=== PATIENT | female | born 1945 | race American Indian/Alaskan Native ===

== ENCOUNTER 2022-04-09 11:31 | Inpatient (IN) | payer MEDICARE ==
[2022-04-09] MEDS ORDERED: SODIUM CHLORIDE 0.9% 1000 ML IV SOLN IV ONE (12:05)
[2022-04-09] MEDS ORDERED: NALOXONE 2 MG/2 ML INJ ONE (12:05)
[2022-04-09] MEDS ORDERED: NALOXONE 2 MG/2 ML INJ IV ONE (12:09)
--- NOTE | 2022-04-09 12:12 | Emergency Department Report ---
HPI - General Chief Complaint: Altered Mental Status Time Seen by Provider: 04/09/22 11:53 - HPI HPI: Room 20 The patient is a 77-year-old female present with a chief complaint of altered mental status. The patient spouse states that he and the patient has been sick for the past week with symptoms including cough. The patient only complained of "not feeling good" but did not have any specific complaints. states he is uncertain if the patient has had a fever. Spouse states that they went to sleep last night in the usual state of health however he was awakened this morning with the patient sitting on the floor next to the bed appearing confused. He says the patient kept asking where she was. Spouse states a lot of the patient's medications were spread out over the bed. The patient has not been vaccinated against COVID. There has been no nausea vomiting or diarrhea. In the ED the patient arouses to sternal rub but only has mumbling speech ED Past Medical Hx - Past Medical History Hx Diabetes: No (Prediabetes) Hx of Cancer: Yes (Ovarian CA status post surgery and chemo) - Surgical History Additional Surgical History: Partial hysterectomy, oophorectomy - Family History Family history: no significant - Social History Smoking Status: Never Smoker Substance Use Type: None ED Review of Systems ROS: Stated complaint: AMS Other details as noted in HPI Comment: Unobtainable due to pts medical conditions Physical Exam - Physical Exam Vital Signs: Vital Signs 04/09/22 11:32 Pulse Rate 67 Blood Pressure 90/40 [Left] O2 Sat by Pulse 90 Oximetry Physical Exam: GENERAL: The patient is well-developed well-nourished female lying on stretcher with snoring respirations. Patient arouses with tactile stimuli and only to exhibit mumbling speech HEENT: Normocephalic. Atraumatic. Patient has moist mucous membranes. NECK: Supple. Trachea midline CHEST/LUNGS: Clear to auscultation. There is no respiratory distress noted. HEART/CARDIOVASCULAR: Regular. There is no tachycardia. There is no gallop rub or murmur. ABDOMEN: Abdomen is soft, nontender. Patient has normal bowel sounds. There is no abdominal distention. SKIN: There is no rash. There is no edema. There is no diaphoresis. NEURO: The patient is obtunded and only arouses to sternal rub. Patient exhibits mumbling speech after stimuli. Patient not cooperative with neurologic exam MUSCULOSKELETAL: There is no evidence of acute injury. ED Course Vital Signs 04/09/22 11:32 Pulse Rate 67 Blood Pressure 90/40 [Left] O2 Sat by Pulse 90 Oximetry - Central Line Placement Right Femoral Consent Obtained: verbal consent Time Out Performed: Yes Patient Placed on Monitor/Pulse Ox: Yes Prep: mask, gown, gloves Central Line Prep: Chlorhexidine scrub Local Anesthesia Used: Lidocaine 1% Amount of Anesthesia Used (mls): 5 Ultrasound Used for Placement: No Central Line Lumen Inserted: triple Reason for Insertion: High Alert Medication Bloods Obtained for Lab: No Central Line Position: good blood return, all ports aspirated, flus Dressing Applied: Tegaderm Patient Tolerated Procedure: well, no complications Complications: none ED Medical Decision Making - Lab Data Result diagrams: 04/09/22 12:52 04/09/22 12:52 Laboratory Tests 04/09/22 04/09/22 04/09/22 11:59 12:52 12:52 WBC 8.2 RBC 4.55 Hgb 13.0 Hct 39.8 MCV 87 MCH 29 MCHC 33 RDW 15.3 H Plt Count 172 Lymph % (Auto) 8.4 L [place] % (Auto) 6.5 Eos % (Auto) 0.0 Baso % (Auto) 0.5 Lymph # (Auto) 0.7 L [place] # (Auto) 0.5 Eos # (Auto) 0.0 Baso # (Auto) 0.0 Seg Neutrophils % 84.6 H Seg Neutrophils # 7.0 PT INR VBG pH Sodium 145 Potassium 4.0 Chloride 112.7 H Carbon Dioxide 18 L Anion Gap 18 BUN 16 Creatinine 2.0 H Estimated GFR 24 BUN/Creatinine Ratio 8 Glucose 204 H POC Glucose 203 H Lactic Acid Calcium 8.5 Magnesium 2.30 Total Bilirubin 1.30 H AST 47 H ALT 40 Alkaline Phosphatase 71 Ammonia Troponin T < 0.010 NT-Pro-B Natriuret Pep Total Protein 6.7 Albumin 3.9 Albumin/Globulin Ratio 1.4 TSH Free T4 Urine Color Urine Turbidity Urine pH Ur Specific [place] Urine Protein Urine Glucose (UA) Urine Ketones Urine Blood Urine Nitrite Urine Bilirubin Urine Urobilinogen Ur Leukocyte Esterase Urine WBC (Auto) Urine RBC (Auto) U Epithel Cells (Auto) Urine Mucus Influenza A (RT-PCR) Influenza B (RT-PCR) 04/09/22 04/09/22 04/09/22 12:52 12:52 12:52 WBC RBC Hgb Hct MCV MCH MCHC RDW Plt Count Lymph % (Auto) [place] % (Auto) Eos % (Auto) Baso % (Auto) Lymph # (Auto) [place] # (Auto) Eos # (Auto) Baso # (Auto) Seg Neutrophils % Seg Neutrophils # PT INR VBG pH Sodium Potassium Chloride Carbon Dioxide Anion Gap BUN Creatinine Estimated GFR BUN/Creatinine Ratio Glucose POC Glucose Lactic Acid 1.50 Calcium Magnesium Total Bilirubin AST ALT Alkaline Phosphatase Ammonia 20.0 L Troponin T NT-Pro-B Natriuret Pep Total Protein Albumin Albumin/Globulin Ratio TSH 1.560 Free T4 1.33 Urine Color Urine Turbidity Urine pH Ur Specific [place] Urine Protein Urine Glucose (UA) Urine Ketones Urine Blood Urine Nitrite Urine Bilirubin Urine Urobilinogen Ur Leukocyte Esterase Urine WBC (Auto) Urine RBC (Auto) U Epithel Cells (Auto) Urine Mucus Influenza A (RT-PCR) Influenza B (RT-PCR) 04/09/22 04/09/22 04/09/22 12:52 12:52 13:24 WBC RBC Hgb Hct MCV MCH MCHC RDW Plt Count Lymph % (Auto) [place] % (Auto) Eos % (Auto) Baso % (Auto) Lymph # (Auto) [place] # (Auto) Eos # (Auto) Baso # (Auto) Seg Neutrophils % Seg Neutrophils # PT 14.5 INR 1.02 VBG pH 7.303 L Sodium Potassium Chloride Carbon Dioxide Anion Gap BUN Creatinine Estimated GFR BUN/Creatinine Ratio Glucose POC Glucose Lactic Acid Calcium Magnesium Total Bilirubin AST ALT Alkaline Phosphatase Ammonia Troponin T NT-Pro-B Natriuret Pep Total Protein Albumin Albumin/Globulin Ratio TSH Free T4 Urine Color Yellow Urine Turbidity Clear Urine pH 5.0 Ur Specific [place] 1.011 Urine Protein 30 mg/dl Urine Glucose (UA) Neg Urine Ketones 20 Urine Blood Neg Urine Nitrite Neg Urine Bilirubin Neg Urine Urobilinogen 4.0 Ur Leukocyte Esterase Neg Urine WBC (Auto) 2.0 Urine RBC (Auto) < 1.0 U Epithel Cells (Auto) < 1.0 Urine Mucus Few Influenza A (RT-PCR) Influenza B (RT-PCR) 04/09/22 04/09/22 13:45 14:15 WBC RBC Hgb Hct MCV MCH MCHC RDW Plt Count Lymph % (Auto) [place] % (Auto) Eos % (Auto) Baso % (Auto) Lymph # (Auto) [place] # (Auto) Eos # (Auto) Baso # (Auto) Seg Neutrophils % Seg Neutrophils # PT INR VBG pH Sodium Potassium Chloride Carbon Dioxide Anion Gap BUN Creatinine Estimated GFR BUN/Creatinine Ratio Glucose POC Glucose Lactic Acid Calcium Magnesium Total Bilirubin AST ALT Alkaline Phosphatase Ammonia Troponin T NT-Pro-B Natriuret Pep 101.1 Total Protein Albumin Albumin/Globulin Ratio TSH Free T4 Urine Color Urine Turbidity Urine pH Ur Specific [place] Urine Protein Urine Glucose (UA) Urine Ketones Urine Blood Urine Nitrite Urine Bilirubin Urine Urobilinogen Ur Leukocyte Esterase Urine WBC (Auto) Urine RBC (Auto) U Epithel Cells (Auto) Urine Mucus Influenza A (RT-PCR) Negative Influenza B (RT-PCR) Negative - Radiology Data Radiology results: report reviewed (Chest x-ray), image reviewed (Chest x-ray) interpreted by me: Chest [id number] patchy infiltrates. No pneumothorax [facility] [address] [place] [address] XRay Report Signed Patient: MICHA BELL MR#: [id number] [birth year] : 1945 Acct:[id number] Age/Sex: 77 / F ADM Date: 04/09/22 Loc: ED Attending Dr: Ordering Physician: ROX FRIAS MD Date of Service: 04/09/22 Procedure(s): XR chest 1V ap Accession Number(s): [id number] cc: ROX FRIAS MD Fluoro Time In Minutes: CHEST 1 VIEW 04/09/2022 12:18 PM INDICATION / CLINICAL INFORMATION: Cough, hypoxia. COMPARISON: None available. FINDINGS: SUPPORT DEVICES: Left subclavian central venous catheter appears well-positioned. HEART / MEDIASTINUM: Mild cardiomegaly. LUNGS / PLEURA: Mild interstitial edema. No pneumothorax. ADDITIONAL FINDINGS: No significant additional findings. IMPRESSION: 1. Findings likely indicating mild CHF as described. Signer Name: Viktor Ramirez MD Signed: 04/09/2022 12:40 PM Workstation Name: [id number] Transcribed By: RAPHAEL Dictated By: Viktor Ramirez MD Electronically Authenticated By: Viktor Ramirez MD Signed Date/Time: 04/09/22 1240 DD/ 1239 TD/TT: [facility] [address] [place] [address] Cat Scan Report Signed Patient: MICHA BELL MR#: [id number] [birth year] : 1945 Acct:[id number] Age/Sex: 77 / F ADM Date: 04/09/22 Loc: ED Attending Dr: Ordering Physician: ROX FRIAS MD Date of Service: 04/09/22 Procedure(s): CT head/brain wo con Accession Number(s): [id number] cc: ROX FRIAS MD CT BRAIN: 03/30/2022 INDICATION / CLINICAL INFORMATION: Altered mental status. COMPARISON: None available. FINDINGS: BRAIN/INTRACRANIAL STRUCTURES: Unenhanced CT images of the brain demonstrate no evidence of acute abnormality. Ventricles and sulci are slightly prominent in size, consistent with normal age-related atrophic change. There is no evidence of ischemic injury, hemorrhage, or mass. There are no abnormal extra-axial fluid collections. EXTRACRANIAL STRUCTURES: Unremarkable. IMPRESSION: No acute abnormality. All CT scans at this location are performed using dose reduction to ALARA by means of automated exposure control. Signer Name: Hood Culver MD Signed: 04/09/2022 12:44 PM Workstation Name: [id number] Transcribed By: CARLOS Dictated By: Hood Culver MD Electronically Authenticated By: Hood Culver MD Signed Date/Time: 04/09/22 1244 DD/ 1243 TD/TT: - Differential Diagnosis AMS, pneumonia, ICH, brain mets, metabolic encephalopathy Critical care attestation.: If time is entered above; I have spent that time in minutes in the direct care of this critically ill patient, excluding procedure time. ED Disposition Clinical Impression: Suspected 2019 novel coronavirus infection, Altered mental status, Hypoxia, Cough, Acute kidney injury, Sepsis Disposition: ADMITTED INPATIENT Is pt being admited?: Yes Does the pt Need Aspirin: No Condition: Serious Time of Disposition: 15:30 (Care transferred to hospitalist)
--- NOTE | 2022-04-09 12:44 | XRay Report ---
CHEST 1 VIEW 04/09/2022 12:18 PM INDICATION / CLINICAL INFORMATION: Cough, hypoxia. COMPARISON: None available. FINDINGS: SUPPORT DEVICES: Left subclavian central venous catheter appears well-positioned. HEART / MEDIASTINUM: Mild cardiomegaly. LUNGS / PLEURA: Mild interstitial edema. No pneumothorax. ADDITIONAL FINDINGS: No significant additional findings. IMPRESSION: 1. Findings likely indicating mild CHF as described. Signer Name: Viktor Ramirez MD Signed: 04/09/2022 12:40 PM Workstation Name: [id number]
--- NOTE | 2022-04-09 12:50 | Cat Scan Report ---
CT BRAIN: 03/30/2022 INDICATION / CLINICAL INFORMATION: Altered mental status. COMPARISON: None available. FINDINGS: BRAIN/INTRACRANIAL STRUCTURES: Unenhanced CT images of the brain demonstrate no evidence of acute abn ormality. Ventricles and sulci are slightly prominent in size, consistent with normal age-related atrophic nascimento ge. There is no evidence of ischemic injury, hemorrhage, or mass. There are no abnormal extra-axial fluid collections. EXTRACRANIAL STRUCTURES: Unremarkable. IMPRESSION: No acute abnormality. All CT scans at this location are performed using dose reduction to ALARA by means of automated expos ure control. Signer Name: Hood Culver MD Signed: 04/09/2022 12:44 PM Workstation Name: [id number]
[2022-04-09] MEDS: DOPamine 800 MG/D5W 250ML 800 MG/250 ML BAG IV ONE ×2 (13:00→19:52)
[2022-04-09] MEDS ORDERED: DOPamine 800 MG/D5W 250ML 800 MG/250 ML BAG IV ONE (13:13)
[2022-04-09 13:15] LABS: Basophils % (Auto) 0.5 % (0.0-1.8); Hematocrit 39.8 % (30.3-42.9); Lymphocytes # (Auto) 0.7 K/mm3 (1.2-5.4); Lymphocytes % (Auto) 8.4 % (13.4-35.0); Mean Corpuscular HGB Conc 33 % (30-34); Mean Corpuscular Volume 87 fl (79-97); Monocytes # (Auto) 0.5 K/mm3 (0.0-0.8); Monocytes % (Auto) 6.5 % (0.0-7.3); Platelet Count 172 K/mm3 (140-440); Red Blood Count 4.55 M/mm3 (3.65-5.03); Red Cell Distribution Width 15.3 % (13.2-15.2)
[2022-04-09 13:24] LABS: INR 1.02 (0.87-1.13)
[2022-04-09 13:40] LABS: Alanine Aminotransferase 40 units/L (7-56); Albumin 3.9 g/dL (3.9-5); BUN/Creatinine Ratio 8; Blood Urea Nitrogen 16 mg/dL (7-17); Calcium 8.5 mg/dL (8.4-10.2); Hemolysis Index 2
[2022-04-09 13:50] LABS: Free T4 (Free Thyroxine) 1.33 ng/dL (0.76-1.46)
[2022-04-09 14:23] LABS: Bilirubin,Urine NEG (Negative); Blood,Urine NEG (Negative); Color,Urine Yellow (Yellow); Mucus,Urine FEW /HPF; RBC,Urine < 1.0 /HPF (0.0-6.0)
[2022-04-09] MEDS ORDERED: NORepinephrine/NS 8 MG-250 ML 8 MG/250 ML INFUS..BTL IV ONE (15:12)
[2022-04-09] MEDS ORDERED: cefTRIAXone/NS 1 GM/50 ML 1 GM/50 ML BAG IV ONE (15:21)
[2022-04-09] MEDS ORDERED: AZITHROMYCIN/NS 500 MG/250 ML 500 MG/250 ML BAG IV ONE (15:21)
[2022-04-09] MEDS: NORepinephrine/NS 8 MG-250 ML 8 MG/250 ML INFUS..BTL IV SCH ×2 (15:29→21:53)
[2022-04-09] MEDS: VASOPRESSIN 20 UNIT in SODIUM CHLORIDE 0.9% 100 ML IV SCH (17:37)
[2022-04-09] MEDS ORDERED: MORPHINE 2 MG/1 ML INJ IV PRN (18:11)
[2022-04-09] MEDS ORDERED: ONDANSETRON 4 MG/2 ML INJ IV PRN (18:11)
[2022-04-09] MEDS ORDERED: SODIUM CHLORIDE 0.9% 1000 ML 1,000 ML IV SCH (18:15)
--- NOTE | 2022-04-09 18:19 | History and Physical Report ---
History of Present Illness Date of examination: 04/09/22 Date of admission: 04/09/2022 Chief complaint: Altered sensorium since a.m. History of present illness: 77-year-old with history of diabetes and ovarian cancer in remission brought in by for altered sensorium. As per the patient has been feeling weak and short of breath for last 1 week. is also sick for 1 week but no shortness of breath. No fevers. No nausea or vomiting. In the morning when the patient woke up patient was severely used and not able to make any sense and still was talking. Patient is not vaccinated against COVID. Both and do not believe in COVID vaccination. No fevers nausea vomiting or diarrhea. No loss of taste or smell. Shortness of breath present. In the emergency room patient was very hypoxic on arrival. Patient had a reported 100% nonrebreather. Patient's initial oxygenation was 88 to 90%. Patient was tachypneic and blood pressure of 90/40 and respiratory rate with 44 and heart rate was 67. Patient was put on 100% nonrebreather. Patient responding to sternal rub. In the ED after couple of hours patient was intubated for protection of airway and patient getting more hypoxic. - Past Medical History Hx Diabetes: No (Prediabetes) Cancer: Yes (Ovarian CA status post surgery and chemo) - Surgical History Additional Surgical History: Partial hysterectomy, oophorectomy - Family History Family history: no significant - Social History Smoking Status: Never Smoker Substance Use Type: None Review of Systems ROS: Constitutional generalized malaise for 1 week HEENT no sore throat no post nasal drip no diplopia Neck no neck stiffness no lymph gland enlargement Chest and lungs short of breath for 1 week more for 1 day. 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 Skin no rash no itching Psychiatric no depression no homicidal or suicidal tendencies Hematologic no lymphedema or bruising Endocrine no polydipsia no polyuria no cold intolerance no heat intolerance Medications and Allergies Allergies Allergy/AdvReac Type Severity Reaction Status Date / Time No Known Allergies Allergy Verified 04/09/22 13:44 Active Meds: Active Medications Dopamine HCl/Dextrose (Dopamine 800 Mg/D5w 250ml) 800 mg in 250 mls @ 3.657 mls/hr IV TITR ONE; Protocol Stop: 04/12/22 09:33 Last Titration: 04/09/22 15:15 Dose: 20 mcg/kg/min, 36.571 mls/hr NORepinephrine/NS 8 MG-250 ML (Norepinephrine/Ns 8 Mg-250 Ml (Double Conc)) 8 mg in 250 mls @ 3.75 mls/hr IV TITRATE JO ANN; Protocol Last Titration: 04/09/22 16:00 Dose: 6 mcg/min, 11.25 mls/hr Vasopressin 20 unit/ Sodium (Chloride) 101 mls @ 9.09 mls/hr IV TITR JO ANN; Protocol Last Admin: 04/09/22 17:37 Dose: 0.03 units/min, 9.09 mls/hr Exam - Physical Exam Narrative exam: Patient intubated while in the emergency room - Constitutional Vitals: Temp Pulse Resp BP Pulse Ox 104 H 16 79/47 100 04/09/22 16:30 04/09/22 16:30 04/09/22 16:30 04/09/22 16:30 General appearance: Present: no acute distress, severe distress, well-nourished - EENT Eyes: Present: PERRL ENT: hearing intact, clear oral mucosa - Neck Neck: Present: supple, normal ROM - Respiratory Respiratory effort: normal Respiratory: bilateral: rales, rhonchi, wheezing - Cardiovascular Heart rate: 67 Rhythm: regular Heart Sounds: Present: S1 & S2. Absent: rub, click - Extremities Extremities: no ischemia, pulses intact, pulses symmetrical, No edema Peripheral Pulses: within normal limits - Abdominal General gastrointestinal: Present: soft, non-tender, non-distended, normal bowel sounds Female genitourinary: Present: normal - Integumentary Integumentary: Present: clear, warm, dry - Musculoskeletal Musculoskeletal: generalized weakness - Psychiatric Psychiatric: other (Altered sensorium) - Neurologic Neurologic: CNII-XII intact, moves all extremities, other (Altered sensorium) - Allied Health Allied health notes reviewed: nursing, RT, social work, case management HEART Score - HEART Score History: Slightly suspicious Age: > 65 Risk factors: 1-2 risk factors Troponin: Troponin T < 0.010 ng/mL (0.00-0.029) 04/09/22 12:52 Troponin: < normal limit - Critical Actions Critical Actions: 4-6 pts:12-16.6% risk of adverse cardiac event. Should be admitted Results - Labs CBC & Chem 7: 04/10/22 04:24 04/10/22 04:24 Labs: Laboratory Last Values WBC 8.2 K/mm3 (4.5-11.0) 04/09/22 12:52 RBC 4.55 M/mm3 (3.65-5.03) 04/09/22 12:52 Hgb 13.0 gm/dl (10.1-14.3) 04/09/22 12:52 Hct 39.8 % (30.3-42.9) 04/09/22 12:52 MCV 87 fl (79-97) 04/09/22 12:52 MCH 29 pg (28-32) 04/09/22 12:52 MCHC 33 % (30-34) 04/09/22 12:52 RDW 15.3 % (13.2-15.2) H 04/09/22 12:52 Plt Count 172 K/mm3 (140-440) 04/09/22 12:52 Lymph % (Auto) 8.4 % (13.4-35.0) L 04/09/22 12:52 [place] % (Auto) 6.5 % (0.0-7.3) 04/09/22 12:52 Eos % (Auto) 0.0 % (0.0-4.3) 04/09/22 12:52 Baso % (Auto) 0.5 % (0.0-1.8) 04/09/22 12:52 Lymph # (Auto) 0.7 K/mm3 (1.2-5.4) L 04/09/22 12:52 [place] # (Auto) 0.5 K/mm3 (0.0-0.8) 04/09/22 12:52 Eos # (Auto) 0.0 K/mm3 (0.0-0.4) 04/09/22 12:52 Baso # (Auto) 0.0 K/mm3 (0.0-0.1) 04/09/22 12:52 Seg Neutrophils % 84.6 % (40.0-70.0) H 04/09/22 12:52 Seg Neutrophils # 7.0 K/mm3 (1.8-7.7) 04/09/22 12:52 PT 14.5 Sec. (12.2-14.9) 04/09/22 12:52 INR 1.02 (0.87-1.13) 04/09/22 12:52 VBG pH 7.303 (7.320-7.420) L 04/09/22 12:52 Sodium 145 mmol/L (137-145) 04/09/22 12:52 Potassium 4.0 mmol/L (3.6-5.0) 04/09/22 12:52 Chloride 112.7 mmol/L (98-107) H 04/09/22 12:52 Carbon Dioxide 18 mmol/L (22-30) L 04/09/22 12:52 Anion Gap 18 mmol/L 04/09/22 12:52 BUN 16 mg/dL (7-17) 04/09/22 12:52 Creatinine 2.0 mg/dL (0.6-1.2) H 04/09/22 12:52 Estimated GFR 24 ml/min 04/09/22 12:52 BUN/Creatinine Ratio 8 % 04/09/22 12:52 Glucose 204 mg/dL (65-100) H 04/09/22 12:52 POC Glucose 203 mg/dL (70-105) H 04/09/22 11:59 Lactic Acid 2.70 mmol/L (0.7-2.0) H* 04/09/22 15:49 Calcium 8.5 mg/dL (8.4-10.2) 04/09/22 12:52 Magnesium 2.30 mg/dL (1.7-2.3) 04/09/22 12:52 Total Bilirubin 1.30 mg/dL (0.1-1.2) H 04/09/22 12:52 AST 47 units/L (5-40) H 04/09/22 12:52 ALT 40 units/L (7-56) 04/09/22 12:52 Alkaline Phosphatase 71 units/L (35-129) 04/09/22 12:52 Ammonia 20.0 umol/L (25-60) L 04/09/22 12:52 Troponin T < 0.010 ng/mL (0.00-0.029) 04/09/22 12:52 NT-Pro-B Natriuret Pep 101.1 pg/mL (0-900) 04/09/22 13:45 Total Protein 6.7 g/dL (6.3-8.2) 04/09/22 12:52 Albumin 3.9 g/dL (3.9-5) 04/09/22 12:52 Albumin/Globulin Ratio 1.4 % 04/09/22 12:52 TSH 1.560 mlU/mL (0.270-4.200) 04/09/22 12:52 Free T4 1.33 ng/dL (0.76-1.46) 04/09/22 12:52 Urine Color Yellow (Yellow) 04/09/22 13:24 Urine Turbidity Clear (Clear) 04/09/22 13:24 Urine pH 5.0 (5.0-7.0) 04/09/22 13:24 Ur Specific [place] 1.011 (1.003-1.030) 04/09/22 13:24 Urine Protein 30 mg/dl mg/dL (Negative) 04/09/22 13:24 Urine Glucose (UA) Neg mg/dL (Negative) 04/09/22 13:24 Urine Ketones 20 mg/dL (Negative) 04/09/22 13:24 Urine Blood Neg (Negative) 04/09/22 13:24 Urine Nitrite Neg (Negative) 04/09/22 13:24 Urine Bilirubin Neg (Negative) 04/09/22 13:24 Urine Urobilinogen 4.0 mg/dL (<2.0) 04/09/22 13:24 Ur Leukocyte Esterase Neg (Negative) 04/09/22 13:24 Urine WBC (Auto) 2.0 /HPF (0.0-6.0) 04/09/22 13:24 Urine RBC (Auto) < 1.0 /HPF (0.0-6.0) 04/09/22 13:24 U Epithel Cells (Auto) < 1.0 /HPF (0-13.0) 04/09/22 13:24 Urine Mucus Few /HPF 04/09/22 13:24 Coronavirus (PCR) Positive (Negative) A 04/09/22 13:02 Influenza A (RT-PCR) Negative (Negative) 04/09/22 14:15 Influenza B (RT-PCR) Negative (Negative) 04/09/22 14:15 Short CBC 04/09/22 Range/Units 12:52 WBC 8.2 (4.5-11.0) K/mm3 Hgb 13.0 (10.1-14.3) gm/dl Hct 39.8 (30.3-42.9) % Plt Count 172 (140-440) K/mm3 [facility] 04/09/22 04/09/22 12:52 22:58 Sodium 145 140 Potassium 4.0 3.8 Chloride 112.7 H 108.8 H Carbon Dioxide 18 L 10 L D BUN 16 20 H Creatinine 2.0 H 2.6 H Glucose 204 H 465 H Calcium 8.5 7.4 L Cardiac Enzymes 04/09/22 Range/Units 12:52 Troponin T < 0.010 (0.00-0.029) ng/mL Liver Function 04/09/22 Range/Units 12:52 Total Bilirubin 1.30 H (0.1-1.2) mg/dL AST 47 H (5-40) units/L ALT 40 (7-56) units/L Alkaline Phosphatase 71 (35-129) units/L Albumin 3.9 (3.9-5) g/dL Urine 04/09/22 Range/Units 13:24 Urine Color Yellow (Yellow) Urine pH 5.0 (5.0-7.0) Ur Specific [place] 1.011 (1.003-1.030) Urine Protein 30 mg/dl (Negative) mg/dL Urine Glucose (UA) Neg (Negative) mg/dL Short CBC 04/09/22 04/10/22 Range/Units 12:52 04:24 WBC 8.2 16.4 H (4.5-11.0) K/mm3 Hgb 13.0 11.6 (10.1-14.3) gm/dl Hct 39.8 36.5 (30.3-42.9) % Plt Count 172 160 (140-440) K/mm3 [facility] 04/09/22 04/09/22 04/10/22 12:52 22:58 04:24 Sodium 145 140 145 Potassium 4.0 3.8 2.9 L* D Chloride 112.7 H 108.8 H 116.1 H Carbon Dioxide 18 L 10 L D 11 L BUN 16 20 H 19 H Creatinine 2.0 H 2.6 H 2.5 H Glucose 204 H 465 H 376 H Calcium 8.5 7.4 L 6.5 L Cardiac Enzymes 04/09/22 Range/Units 12:52 Troponin T < 0.010 (0.00-0.029) ng/mL Liver Function 04/09/22 04/10/22 Range/Units 12:52 04:24 Total Bilirubin 1.30 H 0.80 (0.1-1.2) mg/dL AST 47 H 107 H (5-40) units/L ALT 40 64 H (7-56) units/L Alkaline Phosphatase 71 54 (35-129) units/L Albumin 3.9 2.8 L (3.9-5) g/dL Urine 04/09/22 Range/Units 13:24 Urine Color Yellow (Yellow) Urine pH 5.0 (5.0-7.0) Ur Specific [place] 1.011 (1.003-1.030) Urine Protein 30 mg/dl (Negative) mg/dL Urine Glucose (UA) Neg (Negative) mg/dL Microbiology: Microbiology 04/09/22 12:52 Peripheral/Venous Blood Culture - Preliminary Culture in Progress 04/09/22 12:52 Peripheral/Venous Blood Culture - Preliminary Culture in Progress - Imaging and Cardiology EKG: report reviewed (No acute ST-T wave changes) Chest x-ray: report reviewed Imaging and Cardiology: . chest x-ray Findings likely indicating mild CHF as described Postintubation chest x-ray ET tube in place Same findings Assessment and Plan Assessment and plan: Critical care statement The high probability OF a clinically significant sudden or life-threatening deterioration of the cardiorespiratory system and endocrine system required my full and direct attention, intervention and postoperative management. The aggregate critical care time was 40 minutes. The time is in addition to time spent performing reported procedures but includes the followin: Data review and interpretation 2: Patient assessment and monitoring of vital signs 3: Documentation 4:: Medication orders and management Advance Directives: Yes (Full code) VTE prophylaxis?: Chemical Plan of care discussed with patient/family: Yes - Patient Problems (1) Septic shock Current Visit: Yes Status: Acute Plan to address problem: Sepsis probably secondary to COVID infection IV cefepime and vancomycin and stated Patient also on IV Zithromax Patient is in shock hypotensive IV pressors initiated in the follow-up Levophed and dopamine Later vasopressin was added because of persistent low blood pressures (2) Acute respiratory failure with hypoxia Current Visit: Yes Status: Acute Plan to address problem: Patient was initially on high flow oxygen. Patient is getting more hypoxic and into respiratory distress Patient intubated in the emergency room by Dr. Rodriguez for protection of airway and for adequate oxygenation. (3) Acute encephalopathy Current Visit: Yes Status: Acute Plan to address problem: Acute metabolic encephalopathy secondary to hypoxia and sepsis Continue vent support and IV antibiotics and IV pressors (4) Bilateral pneumonia Current Visit: Yes Status: Acute Plan to address problem: Patient initiated on IV antibiotics Patient is COVID-positive IV Decadron 8 mg every 24 ID consult (5) Acute kidney injury Current Visit: Yes Status: Acute (6) Hypotension Current Visit: Yes Status: Acute Plan to address problem: Hypotension secondary to sepsis IV pressors in the form of Levophed, dopamine and vasopressin 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 (10) Advance care planning Current Visit: Yes Status: Acute Plan to address problem: Discussed with about the disease care plan diagnosis. Prognosis discussed. Patient is full code. acknowledges understanding and agreement with plan. +30 minutes. Patient is full code.
[2022-04-09] MEDS: AZITHROMYCIN/NS 500 MG/250 ML 500 MG/250 ML BAG IV SCH (18:40)
[2022-04-09] MEDS ORDERED: cefTRIAXone/NS 2 GM/100 ML 2 GM/100 ML BAG IV SCH (19:00)
--- NOTE | 2022-04-09 20:40 | Event Note ---
Date: 04/09/22 [facility] intubation note I was asked by hospitalist Dr. Yen to intubate the patient to protect the patient's airway Intubation note Consent was [obtained verbally/unobtainable due patient condition] Preoxygenation with 100% oxygen Patient was sedated with etomidate 20 mg IV Patient was paralyzed with succinylcholine 100 mg IV A size 7.0 mm ET tube was inserted orally on first attempt There was symmetric chest rise and bilateral breath sounds post intubation A CO2 indicator was used for confirmation and resulted in positive CO2 return Pulse oximetry post intubation was 100% ET tube was taped at 21 cm at the lips Post intubation chest x-ray confirmed good tube location The patient tolerated the procedure well There were no complications
[2022-04-09] MEDS ORDERED: ETOMIDATE 20 MG/10 ML INJ IV ONE ×2 (20:46→21:40)
[2022-04-09] MEDS ORDERED: SUCCINYLCHOLINE CHLORIDE 200 MG/10 ML INJ MDV IV ONE (20:46)
--- NOTE | 2022-04-09 21:09 | XRay Report ---
CHEST 1 VIEW 04/09/2022 8:39 PM INDICATION / CLINICAL INFORMATION: Status post intubation. COMPARISON: 04/09/2022 FINDINGS: SUPPORT DEVICES: Endotracheal tube terminates approximately 3.5 cm from the sharon. There is a left c hest wall medical port terminating in the cavoatrial junction. HEART / MEDIASTINUM: Stable. LUNGS / PLEURA: No significant change in interstitial edema. No pneumothorax. ADDITIONAL FINDINGS: No significant additional findings. IMPRESSION: 1. Status post intubation with appropriate positioning of endotracheal tube, otherwise no significant change. Signer Name: Leo Crouch DO Signed: 04/09/2022 9:05 PM Workstation Name: [id number]
[2022-04-09] MEDS ORDERED: SODIUM CHLORIDE 0.9% 1000 ML 1,000 ML IV ONE ×3 (21:36→22:50)
[2022-04-09] MEDS ORDERED: SUCCINYLCHOLINE CHLORIDE 200 MG/10 ML INJ MDV ONE (21:40)
[2022-04-09 22:24] LABS: ABG PCO2 24.6 mm Hg; ABG PO2 188.8 mm Hg (80.0-90.0)
[2022-04-09 22:25] LABS: ABG Base Excess -20.7 mmol/L (-2.0-3.0); ABG HCO3 7.4 mmol/L (20.0-26.0); ABG Methemoglobin 0.1 % (0.0-1.5); ABG Oxygen Saturation 99.1 % (95.0-99.0)
[2022-04-09 22:26] LABS: ABG PH 7.097 pH Units (7.350-7.450)
[2022-04-09] MEDS ORDERED: SODIUM BICARB 8.4% 50 MEQ/50 ML SYRINGE IV ONE ×2 (22:51→22:54)
[2022-04-09] MEDS ORDERED: CEFEPIME/NS 2 GM/100 ML 2 GM/100 ML BAG IV SCH (23:00)
[2022-04-09 23:28] LABS: Amphetamine Screen,Urine PRESUMPTIVE NEGATIVE; Benzodiazepines Screen,Urine PRESUMPTIVE NEGATIVE; Cannabinoid Screen,Urine PRESUMPTIVE NEGATIVE; Cocaine Screen,Urine PRESUMPTIVE NEGATIVE; Methadone Screen,Urine PRESUMPTIVE NEGATIVE; Opiate Screen,Urine PRESUMPTIVE NEGATIVE
[2022-04-09 23:39] LABS: Calcium 7.4 mg/dL (8.4-10.2)
[2022-04-09] MEDS ORDERED: CEFEPIME/NS 1 GM/100 ML 1 GM/100 ML BAG IV SCH (23:45)
[2022-04-09] MEDS ORDERED: VANCOMYCIN PHARMACY TO DOSE IV SCH (23:45)
[2022-04-10] MEDS ORDERED: VANCOMYCIN 1,500 MG in SODIUM CHLORIDE 0.9% 250ML 250 ML IV NR (00:15)
[2022-04-10] MEDS ORDERED: SODIUM CHLORIDE 0.9% 1000 ML 1,000 ML IV ONE ×2 (00:36)
[2022-04-10] MEDS ORDERED: DEXTROSE 50% IN WATER (25GM) 50 ML SYRINGE IV PRN (00:40)
[2022-04-10] MEDS ORDERED: SODIUM CHLORIDE 0.9% 1000 ML 1,000 ML IV SCH (00:45)
[2022-04-10] MEDS ORDERED: VANCOMYCIN 1,500 MG in SODIUM CHLORIDE 0.9% 500 ML 500 ML IV NR (01:00)
[2022-04-10] MEDS ORDERED: D5W/0.45% NACL/KCL 20 MEQ 20 MEQ/1,000 ML BAG IV SCH (01:00)
[2022-04-10] MEDS: FAMOTIDINE 20 MG/2 ML INJ IV SCH ×3 (01:08→22:29)
[2022-04-10] MEDS: CEFEPIME/NS 2 GM/100 ML 2 GM/100 ML BAG IV SCH (01:08)
[2022-04-10] MEDS: INSULIN REGULAR, HUMAN 100 UNITS in SODIUM CHLORIDE 0.9% 99 ML IV SCH ×2 (02:36→09:10)
[2022-04-10] MEDS: VASOPRESSIN 20 UNIT in SODIUM CHLORIDE 0.9% 100 ML IV SCH (02:37)
[2022-04-10] MEDS: NORepinephrine/NS 8 MG-250 ML 8 MG/250 ML INFUS..BTL IV SCH ×5 (02:39→22:02)
[2022-04-10] MEDS: DOPamine 800 MG/D5W 250ML 800 MG/250 ML BAG IV SCH ×2 (03:17→13:12)
[2022-04-10 04:38] LABS: Hematocrit 36.5 % (30.3-42.9); Hemoglobin 11.6 gm/dl (10.1-14.3); Mean Corpuscular HGB Conc 32 % (30-34); Mean Corpuscular Volume 90 fl (79-97); Platelet Count 160 K/mm3 (140-440); Red Blood Count 4.06 M/mm3 (3.65-5.03); Red Cell Distribution Width 16.2 % (13.2-15.2)
[2022-04-10 04:45] LABS: ABG HCO3 8.7 mmol/L (20.0-26.0); ABG PCO2 28.9 mm Hg; ABG PO2 112.3 mm Hg (80.0-90.0)
[2022-04-10 04:46] LABS: ABG Base Excess -19.7 mmol/L (-2.0-3.0); ABG Methemoglobin 0.3 % (0.0-1.5); ABG Oxygen Saturation 97.6 % (95.0-99.0)
[2022-04-10 04:47] LABS: ABG PH 7.095 pH Units (7.350-7.450)
[2022-04-10] MEDS ORDERED: SODIUM BICARB 8.4% 50 MEQ/50 ML SYRINGE IV STA (04:56)
[2022-04-10] MEDS ORDERED: SODIUM BICARBONATE 150 MEQ in SODIUM CHLORIDE 0.9% 1000 ML 1,000 ML IV SCH (05:00)
[2022-04-10 05:07] LABS: Albumin 2.8 g/dL (3.9-5); Calcium 6.5 mg/dL (8.4-10.2)
[2022-04-10 05:47] LABS: Total Cells Counted 100
[2022-04-10 05:48] LABS: Basophils % (Manual) 0 % (0.0-1.8); Eosinophils % (Manual) 0 % (0.0-4.3)
[2022-04-10 05:49] LABS: Giant Platelets Rare; Platelet Estimate Consistent w Auto; RBC Morphology Normal
[2022-04-10] MEDS ORDERED: SODIUM BICARBONATE 150 MEQ in WATER FOR INJECTION (PF) 1,000 ML IV SCH (06:00)
[2022-04-10] MEDS ORDERED: POTASSIUM CHLORIDE 10 MEQ 10 MEQ/100 ML BAG IV SCH (06:00)
[2022-04-10] MEDS ORDERED: INSULIN LISPRO 100 UNIT/ML SUB-Q SCH (07:00)
[2022-04-10] MEDS: POTASSIUM CHLORIDE 20 MEQ 20 MEQ/100 ML BAG IV SCH ×2 (07:19→08:29)
[2022-04-10] MEDS ORDERED: MAGNESIUM SULFATE 2 GM/50 ML BAG IV SCH (08:00)
[2022-04-10] MEDS ORDERED: LORazepam 2 MG/ML VIAL IV ONE (09:00)
[2022-04-10] MEDS ORDERED: POTASSIUM PHOSPHATE 30 MMOL in SODIUM CHLORIDE 0.9% 500 ML 500 ML IV SCH (09:15)
[2022-04-10] MEDS ORDERED: POTASSIUM CHLORIDE 20 MEQ 20 MEQ/100 ML BAG IV SCH (10:00)
[2022-04-10] MEDS: ENOXAPARIN 30 MG/0.3 ML INJ SUB-Q SCH (10:20)
[2022-04-10] MEDS: SODIUM BICARBONATE 150 MEQ in DEXTROSE 5% IN WATER 1,000 ML IV SCH (10:56)
--- NOTE | 2022-04-10 11:25 | Consultation ---
History of Present Illness - Reason for Consult Consult date: 04/10/22 COVID-19 Requesting physician: SHAKEEL HARRIS - History of Present Illness The patient is a 77-year-old female with diabetes, history of ovarian cancer believed to be in remission was admitted with altered mental status. She was not doing good for the last 1 week. Unvaccinated against COVID-19. Patient was also feeling short of breath, noted to be hypoxic on arrival requiring 100% non rebreather mask. Subsequently was intubated for airway protection. Patient tested positive for COVID-19, infectious diseases was consulted. Also hypotensive requiring pressors. Initial WBC 8.2, today 16.4. ABG shows severe acidosis. Labs from today show creatinine 2.5, AST 104, ALT 64. UA without pyuria. Chest x-ray showed bilateral airspace opacities. Review of Systems: Intubated, on the vent. Medications and Allergies Allergies Allergy/AdvReac Type Severity Reaction Status Date / Time No Known Allergies Allergy Verified 04/09/22 13:44 Active Meds: Active Medications Acetaminophen (Acetaminophen 325 Mg Tab) 650 mg PO Q4H PRN PRN Reason: Pain MILD(1-3)/Fever >100.5/[place] Dexamethasone (Dexamethasone 4 Mg/Ml Vial) 8 mg IV Q24H JO ANN Dextrose (Dextrose 50% In Water (25gm) 50 Ml Syringe) 0 ml IV Q30MIN PRN; Protocol PRN Reason: Hypoglycemia Enoxaparin Sodium (Enoxaparin 30 Mg/0.3 Ml Inj) 30 mg SUB-Q QDAY JO ANN Last Admin: 04/10/22 10:20 Dose: 30 mg Famotidine (Famotidine 20 Mg/2 Ml Inj) 10 mg IV BID JO ANN Last Admin: 04/10/22 10:20 Dose: 10 mg NORepinephrine/NS 8 MG-250 ML (Norepinephrine/Ns 8 Mg-250 Ml (Double Conc)) 8 mg in 250 mls @ 3.75 mls/hr IV TITRATE JO ANN; Protocol Last Admin: 04/10/22 08:29 Dose: 30 mcg/min, 56.25 mls/hr Vasopressin 20 unit/ Sodium (Chloride) 101 mls @ 9.09 mls/hr IV TITR JO ANN; Protocol Last Titration: 04/10/22 07:00 Dose: 0.03 units/min, 9.09 mls/hr Azithromycin (Zithromax/Ns) 500 mg in 250 mls @ 250 mls/hr IV Q24H [facility] Last Admin: 04/09/22 18:40 Dose: Not Given Cefepime HCl (Cefepime/Ns 2 Gm/100 Ml) 2 gm in 100 mls @ 200 mls/hr IV Q24H [facility]; Protocol Last Admin: 04/10/22 01:08 Dose: 200 mls/hr Insulin Human Regular 100 (units/ Sodium Chloride) 100 mls @ 1 mls/hr IV TITR JO ANN; Protocol Last Titration: 04/10/22 11:02 Dose: 5 units/hr, 5 mls/hr Dopamine HCl/Dextrose (Dopamine 800 Mg/D5w 250ml) 800 mg in 250 mls @ 3.116 mls/hr IV TITR [facility]; Protocol Last Titration: 04/10/22 09:35 Dose: 12 mcg/kg/min, 18.698 mls/hr Magnesium Sulfate (Magnesium Sulfate 2gm/50ml) 2 gm in 50 mls @ 25 mls/hr IV ON CE@0800 [facility] Stop: 04/10/22 12:00 Last Admin: 04/10/22 08:28 Dose: 25 mls/hr Potassium Phosphate 30 mmol/ (Sodium Chloride) 510 mls @ 85 mls/hr IV ONCE@0915 [facility] Stop: 04/10/22 15:15 Last Admin: 04/10/22 09:52 Dose: 85 mls/hr Sodium Bicarbonate 150 meq/ (Dextrose) 1,150 mls @ 150 mls/hr IV DIRECT [facility] Last Admin: 04/10/22 10:56 Dose: 150 mls/hr Morphine Sulfate (Morphine 2 Mg/1 Ml Inj) 2 mg IV Q4H PRN PRN Reason: Pain, Moderate (4-6) Ondansetron HCl (Ondansetron 4 Mg/2 Ml Inj) 4 mg IV Q8H PRN PRN Reason: Nausea And Vomiting Sodium Chloride (Sodium Chloride 0.9% 10 Ml Flush Syringe) 10 ml IV BID [facility] Last Admin: 04/09/22 22:00 Dose: 10 ml Sodium Chloride (Sodium Chloride 0.9% 10 Ml Flush Syringe) 10 ml IV PRN PRN PRN Reason: LINE FLUSH Physical Examination - Physical Exam Narrative exam: Physical Exam: Constitutional: sedated, intubated, on the vent Head, Ears, Nose: Normocephalic, atraumatic. External ears, nose normal Eyes: Conjunctivae/corneas clear. No icterus. No ptosis. Neck: intubated Oral: intubated Cardiovascular: S1, S2 + Respiratory: AE fair bilaterally and equal GI: Soft, bowel sounds + Musculoskeletal: No pedal edema, no cyanosis. Skin: No rash or abscess Hem/Lymphatic: No palpable cervical or supraclavicular nodes. No lymphangitis Psych: no agitation Neurological: sedated, intubated, on the vent, exam limited - Constitutional Vitals: Vital Signs Temp Pulse Resp BP Pulse Ox 99.5 F 95 H 19 124/52 98 04/10/22 11:22 04/10/22 10:30 04/10/22 10:30 04/10/22 10:30 04/10/22 10:30 Temperature -Last 24 Hours Temperature 99.5 F Temperature 99.7 F Temperature 97.9 F Temperature 97.3 F Temperature 97.3 F Temperature 95.7 F Temperature 95.7 F Temperature 94.8 F Temperature 94.5 F Temperature 94.5 F Temperature 94.2 F Temperature 97.6 F Temperature 97.6 F Temperature 97.6 F Temperature 97.1 F Results - Labs CBC & Chem 7: 04/10/22 04:24 04/10/22 04:24 Labs: Abnormal lab results 04/09/22 04/09/22 04/09/22 Range/Units 11:59 12:52 12:52 WBC (4.5-11.0) K/mm3 RDW 15.3 H (13.2-15.2) % Lymph % (Auto) 8.4 L (13.4-35.0) % Lymph # (Auto) 0.7 L (1.2-5.4) K/mm3 Seg Neutrophils % 84.6 H (40.0-70.0) % Seg Neuts % (Manual) (40.0-70.0) % Lymphocytes % (Manual) (13.4-35.0) % Seg Neutrophils # Man (1.8-7.7) K/mm3 Lymphocytes # (Manual) (1.2-5.4) K/mm3 ABG pH (7.350-7.450) pH Units ABG pO2 (80.0-90.0) mm Hg ABG HCO3 (20.0-26.0) mmol/L ABG O2 Saturation (95.0-99.0) % ABG Base Excess (-2.0-3.0) mmol/L VBG pH (7.320-7.420) Potassium (3.6-5.0) mmol/L Chloride 112.7 H (98-107) mmol/L Carbon Dioxide 18 L (22-30) mmol/L BUN (7-17) mg/dL Creatinine 2.0 H (0.6-1.2) mg/dL Glucose 204 H (65-100) mg/dL POC Glucose 203 H (70-105) mg/dL Lactic Acid (0.7-2.0) mmol/L Calcium (8.4-10.2) mg/dL Phosphorus (2.5-4.5) mg/dL Magnesium (1.7-2.3) mg/dL Total Bilirubin 1.30 H (0.1-1.2) mg/dL AST 47 H (5-40) units/L ALT (7-56) units/L Ammonia (25-60) umol/L Total Protein (6.3-8.2) g/dL Albumin (3.9-5) g/dL Coronavirus (PCR) (Negative) 04/09/22 04/09/22 04/09/22 Range/Units 12:52 12:52 13:02 WBC (4.5-11.0) K/mm3 RDW (13.2-15.2) % Lymph % (Auto) (13.4-35.0) % Lymph # (Auto) (1.2-5.4) K/mm3 Seg Neutrophils % (40.0-70.0) % Seg Neuts % (Manual) (40.0-70.0) % Lymphocytes % (Manual) (13.4-35.0) % Seg Neutrophils # Man (1.8-7.7) K/mm3 Lymphocytes # (Manual) (1.2-5.4) K/mm3 ABG pH (7.350-7.450) pH Units ABG pO2 (80.0-90.0) mm Hg ABG HCO3 (20.0-26.0) mmol/L ABG O2 Saturation (95.0-99.0) % ABG Base Excess (-2.0-3.0) mmol/L VBG pH 7.303 L (7.320-7.420) Potassium (3.6-5.0) mmol/L Chloride (98-107) mmol/L Carbon Dioxide (22-30) mmol/L BUN (7-17) mg/dL Creatinine (0.6-1.2) mg/dL Glucose (65-100) mg/dL POC Glucose (70-105) mg/dL Lactic Acid (0.7-2.0) mmol/L Calcium (8.4-10.2) mg/dL Phosphorus (2.5-4.5) mg/dL Magnesium (1.7-2.3) mg/dL Total Bilirubin (0.1-1.2) mg/dL AST (5-40) units/L ALT (7-56) units/L Ammonia 20.0 L (25-60) umol/L Total Protein (6.3-8.2) g/dL Albumin (3.9-5) g/dL Coronavirus (PCR) Positive A (Negative) 04/09/22 04/09/22 04/09/22 Range/Units 15:49 22:15 22:58 WBC (4.5-11.0) K/mm3 RDW (13.2-15.2) % Lymph % (Auto) (13.4-35.0) % Lymph # (Auto) (1.2-5.4) K/mm3 Seg Neutrophils % (40.0-70.0) % Seg Neuts % (Manual) (40.0-70.0) % Lymphocytes % (Manual) (13.4-35.0) % Seg Neutrophils # Man (1.8-7.7) K/mm3 Lymphocytes # (Manual) (1.2-5.4) K/mm3 ABG pH 7.097 L* (7.350-7.450) pH Units ABG pO2 188.8 H (80.0-90.0) mm Hg ABG HCO3 7.4 L (20.0-26.0) mmol/L ABG O2 Saturation 99.1 H (95.0-99.0) % ABG Base Excess -20.7 L (-2.0-3.0) mmol/L VBG pH (7.320-7.420) Potassium (3.6-5.0) mmol/L Chloride 108.8 H (98-107) mmol/L Carbon Dioxide 10 L D (22-30) mmol/L BUN 20 H (7-17) mg/dL Creatinine 2.6 H (0.6-1.2) mg/dL Glucose 465 H (65-100) mg/dL POC Glucose (70-105) mg/dL Lactic Acid 2.70 H* (0.7-2.0) mmol/L Calcium 7.4 L (8.4-10.2) mg/dL Phosphorus (2.5-4.5) mg/dL Magnesium (1.7-2.3) mg/dL Total Bilirubin (0.1-1.2) mg/dL AST (5-40) units/L ALT (7-56) units/L Ammonia (25-60) umol/L Total Protein (6.3-8.2) g/dL Albumin (3.9-5) g/dL Coronavirus (PCR) (Negative) 04/09/22 04/09/22 04/10/22 Range/Units 23:19 Unknown 00:03 WBC (4.5-11.0) K/mm3 RDW (13.2-15.2) % Lymph % (Auto) (13.4-35.0) % Lymph # (Auto) (1.2-5.4) K/mm3 Seg Neutrophils % (40.0-70.0) % Seg Neuts % (Manual) (40.0-70.0) % Lymphocytes % (Manual) (13.4-35.0) % Seg Neutrophils # Man (1.8-7.7) K/mm3 Lymphocytes # (Manual) (1.2-5.4) K/mm3 ABG pH (7.350-7.450) pH Units ABG pO2 (80.0-90.0) mm Hg ABG HCO3 (20.0-26.0) mmol/L ABG O2 Saturation (95.0-99.0) % ABG Base Excess (-2.0-3.0) mmol/L VBG pH (7.320-7.420) Potassium (3.6-5.0) mmol/L Chloride (98-107) mmol/L Carbon Dioxide (22-30) mmol/L BUN (7-17) mg/dL Creatinine (0.6-1.2) mg/dL Glucose (65-100) mg/dL POC Glucose 356 H (70-105) mg/dL Lactic Acid 7.50 H* 6.10 H* (0.7-2.0) mmol/L Calcium (8.4-10.2) mg/dL Phosphorus (2.5-4.5) mg/dL Magnesium (1.7-2.3) mg/dL Total Bilirubin (0.1-1.2) mg/dL AST (5-40) units/L ALT (7-56) units/L Ammonia (25-60) umol/L Total Protein (6.3-8.2) g/dL Albumin (3.9-5) g/dL Coronavirus (PCR) (Negative) 04/10/22 04/10/22 04/10/22 Range/Units 02:16 03:03 04:00 WBC (4.5-11.0) K/mm3 RDW (13.2-15.2) % Lymph % (Auto) (13.4-35.0) % Lymph # (Auto) (1.2-5.4) K/mm3 Seg Neutrophils % (40.0-70.0) % Seg Neuts % (Manual) (40.0-70.0) % Lymphocytes % (Manual) (13.4-35.0) % Seg Neutrophils # Man (1.8-7.7) K/mm3 Lymphocytes # (Manual) (1.2-5.4) K/mm3 ABG pH (7.350-7.450) pH Units ABG pO2 (80.0-90.0) mm Hg ABG HCO3 (20.0-26.0) mmol/L ABG O2 Saturation (95.0-99.0) % ABG Base Excess (-2.0-3.0) mmol/L VBG pH (7.320-7.420) Potassium (3.6-5.0) mmol/L Chloride (98-107) mmol/L Carbon Dioxide (22-30) mmol/L BUN (7-17) mg/dL Creatinine (0.6-1.2) mg/dL Glucose (65-100) mg/dL POC Glucose 317 H 325 H 308 H (70-105) mg/dL Lactic Acid (0.7-2.0) mmol/L Calcium (8.4-10.2) mg/dL Phosphorus (2.5-4.5) mg/dL Magnesium (1.7-2.3) mg/dL Total Bilirubin (0.1-1.2) mg/dL AST (5-40) units/L ALT (7-56) units/L Ammonia (25-60) umol/L Total Protein (6.3-8.2) g/dL Albumin (3.9-5) g/dL Coronavirus (PCR) (Negative) 04/10/22 04/10/22 04/10/22 Range/Units 04:24 04:24 04:24 WBC 16.4 H (4.5-11.0) K/mm3 RDW 16.2 H (13.2-15.2) % Lymph % (Auto) (13.4-35.0) % Lymph # (Auto) (1.2-5.4) K/mm3 Seg Neutrophils % (40.0-70.0) % Seg Neuts % (Manual) 94.0 H (40.0-70.0) % Lymphocytes % (Manual) 3.0 L (13.4-35.0) % Seg Neutrophils # Man 15.4 H (1.8-7.7) K/mm3 Lymphocytes # (Manual) 0.5 L (1.2-5.4) K/mm3 ABG pH (7.350-7.450) pH Units ABG pO2 (80.0-90.0) mm Hg ABG HCO3 (20.0-26.0) mmol/L ABG O2 Saturation (95.0-99.0) % ABG Base Excess (-2.0-3.0) mmol/L VBG pH (7.320-7.420) Potassium 2.9 L* D (3.6-5.0) mmol/L Chloride 116.1 H (98-107) mmol/L Carbon Dioxide 11 L (22-30) mmol/L BUN 19 H (7-17) mg/dL Creatinine 2.5 H (0.6-1.2) mg/dL Glucose 376 H (65-100) mg/dL POC Glucose (70-105) mg/dL Lactic Acid (0.7-2.0) mmol/L Calcium 6.5 L (8.4-10.2) mg/dL Phosphorus 1.40 L (2.5-4.5) mg/dL Magnesium 1.60 L (1.7-2.3) mg/dL Total Bilirubin (0.1-1.2) mg/dL AST 107 H (5-40) units/L ALT 64 H (7-56) units/L Ammonia (25-60) umol/L Total Protein 5.5 L (6.3-8.2) g/dL Albumin 2.8 L (3.9-5) g/dL Coronavirus (PCR) (Negative) 04/10/22 04/10/22 04/10/22 Range/Units 04:25 05:17 06:00 WBC (4.5-11.0) K/mm3 RDW (13.2-15.2) % Lymph % (Auto) (13.4-35.0) % Lymph # (Auto) (1.2-5.4) K/mm3 Seg Neutrophils % (40.0-70.0) % Seg Neuts % (Manual) (40.0-70.0) % Lymphocytes % (Manual) (13.4-35.0) % Seg Neutrophils # Man (1.8-7.7) K/mm3 Lymphocytes # (Manual) (1.2-5.4) K/mm3 ABG pH 7.095 L* (7.350-7.450) pH Units ABG pO2 112.3 H (80.0-90.0) mm Hg ABG HCO3 8.7 L (20.0-26.0) mmol/L ABG O2 Saturation (95.0-99.0) % ABG Base Excess -19.7 L (-2.0-3.0) mmol/L VBG pH (7.320-7.420) Potassium (3.6-5.0) mmol/L Chloride (98-107) mmol/L Carbon Dioxide (22-30) mmol/L BUN (7-17) mg/dL Creatinine (0.6-1.2) mg/dL Glucose (65-100) mg/dL POC Glucose 343 H 278 H (70-105) mg/dL Lactic Acid (0.7-2.0) mmol/L Calcium (8.4-10.2) mg/dL Phosphorus (2.5-4.5) mg/dL Magnesium (1.7-2.3) mg/dL Total Bilirubin (0.1-1.2) mg/dL AST (5-40) units/L ALT (7-56) units/L Ammonia (25-60) umol/L Total Protein (6.3-8.2) g/dL Albumin (3.9-5) g/dL Coronavirus (PCR) (Negative) 04/10/22 04/10/22 04/10/22 Range/Units 06:53 07:54 08:58 WBC (4.5-11.0) K/mm3 RDW (13.2-15.2) % Lymph % (Auto) (13.4-35.0) % Lymph # (Auto) (1.2-5.4) K/mm3 Seg Neutrophils % (40.0-70.0) % Seg Neuts % (Manual) (40.0-70.0) % Lymphocytes % (Manual) (13.4-35.0) % Seg Neutrophils # Man (1.8-7.7) K/mm3 Lymphocytes # (Manual) (1.2-5.4) K/mm3 ABG pH (7.350-7.450) pH Units ABG pO2 (80.0-90.0) mm Hg ABG HCO3 (20.0-26.0) mmol/L ABG O2 Saturation (95.0-99.0) % ABG Base Excess (-2.0-3.0) mmol/L VBG pH (7.320-7.420) Potassium (3.6-5.0) mmol/L Chloride (98-107) mmol/L Carbon Dioxide (22-30) mmol/L BUN (7-17) mg/dL Creatinine (0.6-1.2) mg/dL Glucose (65-100) mg/dL POC Glucose 262 H 245 H 215 H (70-105) mg/dL Lactic Acid (0.7-2.0) mmol/L Calcium (8.4-10.2) mg/dL Phosphorus (2.5-4.5) mg/dL Magnesium (1.7-2.3) mg/dL Total Bilirubin (0.1-1.2) mg/dL AST (5-40) units/L ALT (7-56) units/L Ammonia (25-60) umol/L Total Protein (6.3-8.2) g/dL Albumin (3.9-5) g/dL Coronavirus (PCR) (Negative) 04/10/22 04/10/22 Range/Units 10:12 10:51 WBC (4.5-11.0) K/mm3 RDW (13.2-15.2) % Lymph % (Auto) (13.4-35.0) % Lymph # (Auto) (1.2-5.4) K/mm3 Seg Neutrophils % (40.0-70.0) % Seg Neuts % (Manual) (40.0-70.0) % Lymphocytes % (Manual) (13.4-35.0) % Seg Neutrophils # Man (1.8-7.7) K/mm3 Lymphocytes # (Manual) (1.2-5.4) K/mm3 ABG pH (7.350-7.450) pH Units ABG pO2 (80.0-90.0) mm Hg ABG HCO3 (20.0-26.0) mmol/L ABG O2 Saturation (95.0-99.0) % ABG Base Excess (-2.0-3.0) mmol/L VBG pH (7.320-7.420) Potassium (3.6-5.0) mmol/L Chloride (98-107) mmol/L Carbon Dioxide (22-30) mmol/L BUN (7-17) mg/dL Creatinine (0.6-1.2) mg/dL Glucose (65-100) mg/dL POC Glucose 206 H 176 H (70-105) mg/dL Lactic Acid (0.7-2.0) mmol/L Calcium (8.4-10.2) mg/dL Phosphorus (2.5-4.5) mg/dL Magnesium (1.7-2.3) mg/dL Total Bilirubin (0.1-1.2) mg/dL AST (5-40) units/L ALT (7-56) units/L Ammonia (25-60) umol/L Total Protein (6.3-8.2) g/dL Albumin (3.9-5) g/dL Coronavirus (PCR) (Negative) - Imaging and Cardiology Chest x-ray: report reviewed, image reviewed (b/l opacities) Assessment and Plan Cultures: SARS CoV2 PCR: Positive Influenza PCR: Negative 04/09/2022 blood culture: In process A/P: 77-year-old female with diabetes, history of ovarian cancer believed to be in remission was admitted with altered mental status: #Septic shock, probably secondary to severe COVID-19. Initial WBC 8.2, today 16. 4. ABG shows severe acidosis. Labs from today show creatinine 2.5, AST 104, ALT 64. UA without pyuria. Chest x-ray showed bilateral airspace opacities. #Bilateral pneumonia: Secondary to COVID-19. Unvaccinated. #Acute hypoxic respiratory failure: Requiring mechanical ventilation. #ASHLEY: Renally adjust antibiotics. Recs: -IV/PO Dexamethasone x 10 days -Due to renal failure, not a candidate for Remdesivir -If CRP >7.5, candidate for Actemra (depending on availability), d/w pharmacy -prophylactic anticoagulation based on d-dimer per hospital protocol -if procalcitonin is low, abx not needed -f/u and trend ferritin, d-dimer, CRP every 2-3 days -Guarded prognosis Yovani Arce MD, FACP, [facility] ([facility] O: [phone] F: [phone] C: [phone]
--- NOTE | 2022-04-10 12:12 | Consultation ---
History of Present Illness - Reason for Consult Consult date: 04/10/22 acute renal failure - History of Present Illness This is a 77 year old female who presented to the hospital for evaluation of Altered Mental Status and progressive weakness shortness of breath. On evalaution in E.R patient was found to be Hypoxic and also COVID positive. Patient subsequently required intubation. Patient's serum creatinine on admission was 2.5. Baseline unknown. Patient also with multiple electrolyte abn ormalities o include high glucose levels of 475 and Co2 level of 10. Patient has history of Ovarian cancer in remission per report and Diabetes Mellitus. Patient not directly seen to avoid exposure and or transmission of COVID disease. We are being consulted for management of this patient's ARF. Past History Past Medical History: diabetes, other (Ovarian cancer) Past Surgical History: Other (unknown) Social history: no significant social history Family history: no significant family history Medications and Allergies Allergies Allergy/AdvReac Type Severity Reaction Status Date / Time No Known Allergies Allergy Verified 04/09/22 13:44 Active Meds: Active Medications Acetaminophen (Acetaminophen 325 Mg Tab) 650 mg PO Q4H PRN PRN Reason: Pain MILD(1-3)/Fever >100.5/[place] Dexamethasone (Dexamethasone 4 Mg/Ml Vial) 8 mg IV Q24H JO ANN Dextrose (Dextrose 50% In Water (25gm) 50 Ml Syringe) 0 ml IV Q30MIN PRN; Protocol PRN Reason: Hypoglycemia Enoxaparin Sodium (Enoxaparin 30 Mg/0.3 Ml Inj) 30 mg SUB-Q QDAY JO ANN Last Admin: 04/10/22 10:20 Dose: 30 mg Famotidine (Famotidine 20 Mg/2 Ml Inj) 10 mg IV BID JO ANN Last Admin: 04/10/22 10:20 Dose: 10 mg NORepinephrine/NS 8 MG-250 ML (Norepinephrine/Ns 8 Mg-250 Ml (Double Conc)) 8 mg in 250 mls @ 3.75 mls/hr IV TITRATE JO ANN; Protocol Last Admin: 04/10/22 08:29 Dose: 30 mcg/min, 56.25 mls/hr Vasopressin 20 unit/ Sodium (Chloride) 101 mls @ 9.09 mls/hr IV TITR JO ANN; Protocol Last Titration: 04/10/22 07:00 Dose: 0.03 units/min, 9.09 mls/hr Azithromycin (Zithromax/Ns) 500 mg in 250 mls @ 250 mls/hr IV Q24H [facility] Last Admin: 04/09/22 18:40 Dose: Not Given Cefepime HCl (Cefepime/Ns 2 Gm/100 Ml) 2 gm in 100 mls @ 200 mls/hr IV Q24H [facility]; Protocol Last Admin: 04/10/22 01:08 Dose: 200 mls/hr Insulin Human Regular 100 (units/ Sodium Chloride) 100 mls @ 1 mls/hr IV TITR JO ANN; Protocol Last Titration: 04/10/22 11:02 Dose: 5 units/hr, 5 mls/hr Dopamine HCl/Dextrose (Dopamine 800 Mg/D5w 250ml) 800 mg in 250 mls @ 3.116 mls/hr IV TITR JO ANN; Protocol Last Titration: 04/10/22 11:28 Dose: 10 mcg/kg/min, 15.581 mls/hr Potassium Phosphate 30 mmol/ (Sodium Chloride) 510 mls @ 85 mls/hr IV ONCE@0915 [facility] Stop: 04/10/22 15:15 Last Admin: 04/10/22 09:52 Dose: 85 mls/hr Sodium Bicarbonate 150 meq/ (Dextrose) 1,150 mls @ 150 mls/hr IV DIRECT JO ANN Last Admin: 04/10/22 10:56 Dose: 150 mls/hr Morphine Sulfate (Morphine 2 Mg/1 Ml Inj) 2 mg IV Q4H PRN PRN Reason: Pain, Moderate (4-6) Ondansetron HCl (Ondansetron 4 Mg/2 Ml Inj) 4 mg IV Q8H PRN PRN Reason: Nausea And Vomiting Sodium Chloride (Sodium Chloride 0.9% 10 Ml Flush Syringe) 10 ml IV BID [facility] Last Admin: 04/09/22 22:00 Dose: 10 ml Sodium Chloride (Sodium Chloride 0.9% 10 Ml Flush Syringe) 10 ml IV PRN PRN PRN Reason: LINE FLUSH Review of Systems ROS unobtainable: due to endotracheal tube, due to mental status Exam - Vital Signs Vital signs: Vital Signs Pulse BP Pulse Ox 67 90/40 90 04/09/22 11:32 04/09/22 11:32 04/09/22 11:32 Results - Lab Results 04/10/22 04:24 04/10/22 11:47 Most recent lab results ABG pH 7.095 pH Units (7.350-7.450) L* 04/10/22 04:25 ABG pCO2 28.9 mm Hg 04/10/22 04:25 ABG pO2 112.3 mm Hg (80.0-90.0) H 04/10/22 04:25 ABG HCO3 8.7 mmol/L (20.0-26.0) L 04/10/22 04:25 ABG O2 Saturation 97.6 % (95.0-99.0) 04/10/22 04:25 Calcium 6.5 mg/dL (8.4-10.2) L 04/10/22 04:24 Phosphorus 1.40 mg/dL (2.5-4.5) L 04/10/22 04:24 Magnesium 1.60 mg/dL (1.7-2.3) L 04/10/22 04:24 Assessment and Plan Assessment: Acute Renal Failure likely secondary to Ischemic ATN due to Sepsis and Hypotenison COVID positive Sepsis Hypotension Diabetes Mellitus/DKA Acute Respiratory Failure Hypokalemia Metabolic Acidosis Hypophosphatemia Plan: Renal labs reviewed. Serum creatinine 2.5 today, yesterday's was 2.6 Baseline serum creatinine unknown Obtain renal ultrasound to rule out obstruction Obtain urine lytes, protein and eosinophils Hypotension- on Levophed drip Hypokalemia- in repletion with IV KCL Hypophosphatemia- in repletion with Potassium phosphate Acidosis- On Sodium Bicarbonate 150 meq in D5W@ 150 ml/hr DKA-on insulin drip COVID positive-as per ID Renally dose medications Obtain daily weights Monitor I/O's daily Will monitor renal function closely Plan of care reviewed by Dr. Lang
--- NOTE | 2022-04-10 12:59 | Consultation ---
History of Present Illness Consult date: 04/10/22 History of present illness: 77 y/o female admitted with altered mental status. Subsequently was intubated secondary to inability to protect airway. While in ED became hypotensive and acidotic, transferred up to unit for further management. Medications and Allergies Allergies Allergy/AdvReac Type Severity Reaction Status Date / Time No Known Allergies Allergy Verified 04/09/22 13:44 Active Meds: Active Medications Acetaminophen (Acetaminophen 325 Mg Tab) 650 mg PO Q4H PRN PRN Reason: Pain MILD(1-3)/Fever >100.5/CAR[place] Dexamethasone (Dexamethasone 4 Mg/Ml Vial) 8 mg IV Q24H JO ANN Dextrose (Dextrose 50% In Water (25gm) 50 Ml Syringe) 0 ml IV Q30MIN PRN; Protocol PRN Reason: Hypoglycemia Enoxaparin Sodium (Enoxaparin 30 Mg/0.3 Ml Inj) 30 mg SUB-Q QDAY JO ANN Last Admin: 04/10/22 10:20 Dose: 30 mg Famotidine (Famotidine 20 Mg/2 Ml Inj) 10 mg IV BID JO ANN Last Admin: 04/10/22 10:20 Dose: 10 mg NORepinephrine/NS 8 MG-250 ML (Norepinephrine/Ns 8 Mg-250 Ml (Double Conc)) 8 mg in 250 mls @ 3.75 mls/hr IV TITRATE JO ANN; Protocol Last Admin: 04/10/22 08:29 Dose: 30 mcg/min, 56.25 mls/hr Vasopressin 20 unit/ Sodium (Chloride) 101 mls @ 9.09 mls/hr IV TITR JO ANN; Protocol Last Titration: 04/10/22 07:00 Dose: 0.03 units/min, 9.09 mls/hr Azithromycin (Zithromax/Ns) 500 mg in 250 mls @ 250 mls/hr IV Q24H JO ANN Last Admin: 04/09/22 18:40 Dose: Not Given Cefepime HCl (Cefepime/Ns 2 Gm/100 Ml) 2 gm in 100 mls @ 200 mls/hr IV Q24H JO ANN; Protocol Last Admin: 04/10/22 01:08 Dose: 200 mls/hr Insulin Human Regular 100 (units/ Sodium Chloride) 100 mls @ 1 mls/hr IV TITR S ; Protocol Last Titration: 04/10/22 11:02 Dose: 5 units/hr, 5 mls/hr Dopamine HCl/Dextrose (Dopamine 800 Mg/D5w 250ml) 800 mg in 250 mls @ 3.116 mls/hr IV TITR JO ANN; Protocol Last Titration: 04/10/22 12:18 Dose: 12 mcg/kg/min, 18.698 mls/hr Potassium Phosphate 30 mmol/ (Sodium Chloride) 510 mls @ 85 mls/hr IV ONCE@0915 JO ANN Stop: 04/10/22 15:15 Last Admin: 04/10/22 09:52 Dose: 85 mls/hr Sodium Bicarbonate 150 meq/ (Dextrose) 1,150 mls @ 150 mls/hr IV DIRECT JO ANN Last Admin: 04/10/22 10:56 Dose: 150 mls/hr Morphine Sulfate (Morphine 2 Mg/1 Ml Inj) 2 mg IV Q4H PRN PRN Reason: Pain, Moderate (4-6) Ondansetron HCl (Ondansetron 4 Mg/2 Ml Inj) 4 mg IV Q8H PRN PRN Reason: Nausea And Vomiting Sodium Chloride (Sodium Chloride 0.9% 10 Ml Flush Syringe) 10 ml IV BID [facility] Last Admin: 04/09/22 22:00 Dose: 10 ml Sodium Chloride (Sodium Chloride 0.9% 10 Ml Flush Syringe) 10 ml IV PRN PRN PRN Reason: LINE FLUSH Physical Examination Vital signs: Vital Signs Pulse BP Pulse Ox 67 90/40 90 04/09/22 11:32 04/09/22 11:32 04/09/22 11:32 Results - Laboratory Findings CBC and BMP: 04/16/22 Unknown 04/16/22 06:00 ABG ABG pH 7.095 pH Units (7.350-7.450) L* 04/10/22 04:25 ABG pCO2 28.9 mm Hg 04/10/22 04:25 ABG pO2 112.3 mm Hg (80.0-90.0) H 04/10/22 04:25 ABG O2 Saturation 97.6 % (95.0-99.0) 04/10/22 04:25 PT/INR, D-dimer PT 14.5 Sec. (12.2-14.9) 04/09/22 12:52 INR 1.02 (0.87-1.13) 04/09/22 12:52 Abnormal lab findings: Abnormal Labs 04/09/22 04/09/22 04/09/22 11:59 12:52 12:52 WBC RDW 15.3 H Lymph % (Auto) 8.4 L Lymph # (Auto) 0.7 L Seg Neutrophils % 84.6 H Seg Neuts % (Manual) Lymphocytes % (Manual) Seg Neutrophils # Man Lymphocytes # (Manual) ABG pH ABG pO2 ABG HCO3 ABG O2 Saturation ABG Base Excess VBG pH Potassium Chloride 112.7 H Carbon Dioxide 18 L BUN Creatinine 2.0 H Glucose 204 H POC Glucose 203 H Lactic Acid Calcium Phosphorus Magnesium Total Bilirubin 1.30 H AST 47 H ALT Ammonia Total Protein Albumin Coronavirus (PCR) 04/09/22 04/09/22 04/09/22 12:52 12:52 13:02 WBC RDW Lymph % (Auto) Lymph # (Auto) Seg Neutrophils % Seg Neuts % (Manual) Lymphocytes % (Manual) Seg Neutrophils # Man Lymphocytes # (Manual) ABG pH ABG pO2 ABG HCO3 ABG O2 Saturation ABG Base Excess VBG pH 7.303 L Potassium Chloride Carbon Dioxide BUN Creatinine Glucose POC Glucose Lactic Acid Calcium Phosphorus Magnesium Total Bilirubin AST ALT Ammonia 20.0 L Total Protein Albumin Coronavirus (PCR) Positive A 04/09/22 04/09/22 04/09/22 15:49 22:15 22:58 WBC RDW Lymph % (Auto) Lymph # (Auto) Seg Neutrophils % Seg Neuts % (Manual) Lymphocytes % (Manual) Seg Neutrophils # Man Lymphocytes # (Manual) ABG pH 7.097 L* ABG pO2 188.8 H ABG HCO3 7.4 L ABG O2 Saturation 99.1 H ABG Base Excess -20.7 L VBG pH Potassium Chloride 108.8 H Carbon Dioxide 10 L D BUN 20 H Creatinine 2.6 H Glucose 465 H POC Glucose Lactic Acid 2.70 H* Calcium 7.4 L Phosphorus Magnesium Total Bilirubin AST ALT Ammonia Total Protein Albumin Coronavirus (PCR) 04/09/22 04/09/22 04/10/22 23:19 Unknown 00:03 WBC RDW Lymph % (Auto) Lymph # (Auto) Seg Neutrophils % Seg Neuts % (Manual) Lymphocytes % (Manual) Seg Neutrophils # Man Lymphocytes # (Manual) ABG pH ABG pO2 ABG HCO3 ABG O2 Saturation ABG Base Excess VBG pH Potassium Chloride Carbon Dioxide BUN Creatinine Glucose POC Glucose 356 H Lactic Acid 7.50 H* 6.10 H* Calcium Phosphorus Magnesium Total Bilirubin AST ALT Ammonia Total Protein Albumin Coronavirus (PCR) 04/10/22 04/10/22 04/10/22 02:16 03:03 04:00 WBC RDW Lymph % (Auto) Lymph # (Auto) Seg Neutrophils % Seg Neuts % (Manual) Lymphocytes % (Manual) Seg Neutrophils # Man Lymphocytes # (Manual) ABG pH ABG pO2 ABG HCO3 ABG O2 Saturation ABG Base Excess VBG pH Potassium Chloride Carbon Dioxide BUN Creatinine Glucose POC Glucose 317 H 325 H 308 H Lactic Acid Calcium Phosphorus Magnesium Total Bilirubin AST ALT Ammonia Total Protein Albumin Coronavirus (PCR) 04/10/22 04/10/22 04/10/22 04:24 04:24 04:24 WBC 16.4 H RDW 16.2 H Lymph % (Auto) Lymph # (Auto) Seg Neutrophils % Seg Neuts % (Manual) 94.0 H Lymphocytes % (Manual) 3.0 L Seg Neutrophils # Man 15.4 H Lymphocytes # (Manual) 0.5 L ABG pH ABG pO2 ABG HCO3 ABG O2 Saturation ABG Base Excess VBG pH Potassium 2.9 L* D Chloride 116.1 H Carbon Dioxide 11 L BUN 19 H Creatinine 2.5 H Glucose 376 H POC Glucose Lactic Acid Calcium 6.5 L Phosphorus 1.40 L Magnesium 1.60 L Total Bilirubin AST 107 H ALT 64 H Ammonia Total Protein 5.5 L Albumin 2.8 L Coronavirus (PCR) 04/10/22 04/10/22 04/10/22 04:25 05:17 06:00 WBC RDW Lymph % (Auto) Lymph # (Auto) Seg Neutrophils % Seg Neuts % (Manual) Lymphocytes % (Manual) Seg Neutrophils # Man Lymphocytes # (Manual) ABG pH 7.095 L* ABG pO2 112.3 H ABG HCO3 8.7 L ABG O2 Saturation ABG Base Excess -19.7 L VBG pH Potassium Chloride Carbon Dioxide BUN Creatinine Glucose POC Glucose 343 H 278 H Lactic Acid Calcium Phosphorus Magnesium Total Bilirubin AST ALT Ammonia Total Protein Albumin Coronavirus (PCR) 04/10/22 04/10/22 04/10/22 06:53 07:54 08:58 WBC RDW Lymph % (Auto) Lymph # (Auto) Seg Neutrophils % Seg Neuts % (Manual) Lymphocytes % (Manual) Seg Neutrophils # Man Lymphocytes # (Manual) ABG pH ABG pO2 ABG HCO3 ABG O2 Saturation ABG Base Excess VBG pH Potassium Chloride Carbon Dioxide BUN Creatinine Glucose POC Glucose 262 H 245 H 215 H Lactic Acid Calcium Phosphorus Magnesium Total Bilirubin AST ALT Ammonia Total Protein Albumin Coronavirus (PCR) 04/10/22 04/10/22 04/10/22 10:12 10:51 12:02 WBC RDW Lymph % (Auto) Lymph # (Auto) Seg Neutrophils % Seg Neuts % (Manual) Lymphocytes % (Manual) Seg Neutrophils # Man Lymphocytes # (Manual) ABG pH ABG pO2 ABG HCO3 ABG O2 Saturation ABG Base Excess VBG pH Potassium Chloride Carbon Dioxide BUN Creatinine Glucose POC Glucose 206 H 176 H 178 H Lactic Acid Calcium Phosphorus Magnesium Total Bilirubin AST ALT Ammonia Total Protein Albumin Coronavirus (PCR) Assessment and Plan 77 y/o female with multisystem organ failure, COVID positive 1. Neuro-concern for seizures. EEG pending. Hold on long acting anti-epileptic therapy. Neurology consulted and has seen. patient is not on any continuous sedation at present 2. CV-Cardiovascular collapse on pressors (3). Could benefit from echo. Attempt volume resuscitation but no improvement. Continue pressors and wean as tolerated for MAPs >65 3. Pulm-intubated, not on sedation. COVID positive but oxygenation is stable. Per documentation, mainly intubated for airway protection given altered level of mental status. Not a candidate for Remdesivir and may not be a candidate for actemra. Continue steroids and low Tidal volume strategy for lung protection with permissive hypercapnea and lower PaO2 (55-60) if needed. 4. Renal- worsening renal function and decrease in urine output. Renal following. May need HD but would likely not tolerate and CRRT or CVVH is not available here. Worsening lactic acidosis as well. 5. GI-hold on feeds given pressor requirement, prophylactic therapy 6. Endo-continue insulin drip for now Overall prognosis is guarded to poor. Will discuss with immediate family today. CCT 31 minutes
[2022-04-10 13:04] LABS: Calcium 6.9 mg/dL (8.4-10.2)
--- NOTE | 2022-04-10 13:43 | Event Note ---
Date: 04/10/22 Spoke with Patients Son Sumanth Wall on speakphone with CM. Explained to patient that his mother is in multisystem organ failure (neuro, pulmonary, cardiac and renal) and is on maximum supportive care. Explained to him that she is high risk for cardiac arrest at any given time and given the severity of her illness there is a good chance that we would not be able to resuscitate her. Unfortunately she is covid positive and is not vaccinated against the disease. We are not able to give her Remdesivir and she may not be a candidate for Act emra either given her prior malignancy history. All this was explained in detail to the son. He did become tearful during our conversation. There is a sister and a niece and I have strongly encouraged him to reach out to them to tell them how sick there family member is and the severity of the situation. he is going to do this. He is also going to discuss code status with them and let us know about this, for now, she is a full code.
[2022-04-10] MEDS ORDERED: PHOS-NAK POWDER PACKET PO SCH (14:00)
[2022-04-10 14:58] LABS: C-Reactive Protein 11.3 mg/dL (0.00-1.30)
[2022-04-10 15:19] LABS: Creatinine,Urine 224.2 mg/dL (0.1-20.0); Protein/Creatinine Ratio,Urine 0.77
[2022-04-10] MEDS ORDERED: TOCILIZUMAB 600 MG in SODIUM CHLORIDE 0.9% 100 ML IV ONE (17:39)
--- NOTE | 2022-04-10 17:45 | Progress Note ---
Assessment and Plan Assessment and plan: This is a 77-year-old female with DM and ovarian cancer in remission admitted for septic shock secondary to COVID-19 pneumonia, acute kidney injury, acute hypoxic respiratory failure and currently in multiorgan failure Neuro: Acute metabolic encephalopathy, myoclonic jerks -Myoclonic jerking aborted with Ativan -Avoid delirium -Reorientation as needed -Maintain sleep-wake cycle -aspiration/seizure precautions -Neurology consulted, appreciate recommendations -Initial CT head showed no acute abnormality -EEG pending -MRI brain pending Cardiac: Hypotension -Blood pressure monitoring per protocol -Vasopressor support with Levophed, dobutamine, vasopressin -MAP goal greater than 65 -Echocardiogram pending Respiratory: Acute hypoxic respiratory failure -CCM consulted, appreciate recommendations -Intubated in the emergency department 04/09 with 7.00 ETT at 22 the lips -A.m. vent settings: Assist-control rate 16, tidal volume 450, PEEP 6, FiO2 60% -See RT notes for titration -A.m. ABG and CXR noted -VAP bundle -SPO2 monitoring GI: Transaminitis -24 hours +289 ml -PPI -NTR consult for tube feedings when appropriate -BR: Start when appropriate : Acute kidney injury likely secondary to ischemic acute tubular necrosis secondary to sepsis and hypotension, metabolic acidosis, hypophosphatemia, hypokalemia, hypomagnesemia, hyperchloremia, anion gap metabolic acidosis -Nephrology consulted, appreciate recommendations -Strict intake and output -Renally dose medications -Avoid nephrotoxic medications -Daily weights -Urine lites pending -Renal ultrasound pending -IV sodium bicarbonate drip and D5W -IV potassium, IV K-Phos, IV magnesium -Trend BMP, magnesium, phosphate ID: Septic shock secondary to COVID-19 pneumonia, lactic acidosis -Infectious disease consulted, appreciate recommendations -Admit CXR showed bilateral air space opacities -Antibiotic therapy with azithromycin, cefepime -Decadron 8 mg daily for 10 days -Per ID: Due to renal failure, not a candidate for remdesivir -If CRP greater than 7.5, candidate for Actemra -If procalcitonin low, antibiotics not needed -Actemra added -Contact/droplet precautions -f/u blood culture -Monitor WBC and temperature curve -Trend COVID-19 inflammatory markers Endo: DKA, h/o DM -Insulin drip -Avoid hypoglycemia -SSI -Accu-Cheks and BMP per protocol Heme: Leukocytosis -Trend CBC -Transfuse hemoglobin less than 7 -Lovenox subcu -Monitor for signs of bleeding -SCDs to BLE while in bed The high probability of a clinically significant, sudden or life threatening deterioration of the [multi] system(s) required my full and direct attention, intervention and personal management. The aggregate critical care time was [60] minutes. This time is in addition to time spent performing reported procedures but includes the following: [x] Data Review and interpretation [x] Patient assessment and monitoring of vital signs [x] Documentation [x] Medication orders and management Disposition Plan: icu Total Time Spent with Patient (Minutes): 60 History Interval history: This is a 77-year-old female with DM and ovarian cancer in remission s/p partial hysterectomy and oophorectomy presented to emergency department on 04/09 with altered mental status, weakness, shortness of breath over the past week with worsening symptoms on 04/09. Of note patient was not vaccinated for COVID-19. In the emergency department patient was very hypoxic on arrival and was placed on 100% nonrebreather, patient was tachypneic and hypotensive and initially was alert and oriented however became lethargic and was intubated for airway protection. Work-up in the emergency department revealed leukocytosis, acute kidney injury, hypokalemia, hyperglycemia. Patient was admitted to the hospitalist service with consults to [facility] with septic shock, COVID-19 PUI, hypokalemia, acute kidney injury, acute metabolic encephalopathy, bilateral pneumonia, lactic acidosis and acute hypoxic respiratory failure. Hospital course to date: 04/10: Patient noted to have myoclonic jerking this morning and was given 2 mg of Ativan which aborted the jerking. Neurology was consulted and MRI and EEG were ordered. Patient admits to [facility] for MRI at this time. Patient is hypotensive and currently on Levophed, vasopressin and dobutamine. Nephrology consulted for renal failure. Remains on insulin drip and was placed on a bicarbonate drip this morning. Infectious disease consulted who added vancomycin and ordered follow-up labs. Dr. Craig had a conversation with family about prognosis and given multisystem organ failure. We will continue supportive care. Hospitalist Physical - Constitutional Vitals: Temp Pulse Resp BP Pulse Ox 99.3 F 89 20 102/66 96 04/10/22 17:40 04/10/22 16:14 04/10/22 16:00 04/10/22 16:14 04/10/22 16:14 General appearance: Present: no acute distress, severe distress, well-nourished, obese - EENT Eyes: Present: EOM intact, irregular pupil. Absent: PERRL (unable to asses, pupils not reactive d/t cataracts) ENT: poor dentition - Neck Neck: Present: normal ROM - Respiratory Respiratory effort: normal Respiratory: bilateral: diminished - Cardiovascular Rhythm: regular Heart Sounds: Present: S1 & S2. Absent: systolic murmur, diastolic murmur - Extremities Extremities: no ischemia, pulses intact, pulses symmetrical, normal temperature, normal color Peripheral Pulses: within normal limits - Abdominal General gastrointestinal: soft, non-tender, non-distended, normal bowel sounds - Integumentary Integumentary: Present: warm, dry - Psychiatric Psychiatric: other - Neurologic Neurologic: other (intact cough/gag, pupils not reactive/irregular pupils, no respond to painful stimuli) - Allied Health Allied health notes reviewed: nursing, RT, social work HEART Score - HEART Score Age: > 65 Risk factors: 1-2 risk factors Troponin: Troponin T < 0.010 ng/mL (0.00-0.029) 04/09/22 12:52 Troponin: < normal limit - Critical Actions Critical Actions: 4-6 pts:12-16.6% risk of adverse cardiac event. Should be admitted Results - Labs CBC & Chem 7: 04/10/22 04:24 04/10/22 11:47 Labs: Laboratory Last Values WBC 16.4 K/mm3 (4.5-11.0) H 04/10/22 04:24 RBC 4.06 M/mm3 (3.65-5.03) 04/10/22 04:24 Hgb 11.6 gm/dl (10.1-14.3) 04/10/22 04:24 Hct 36.5 % (30.3-42.9) 04/10/22 04:24 MCV 90 fl (79-97) 04/10/22 04:24 MCH 29 pg (28-32) 04/10/22 04:24 MCHC 32 % (30-34) 04/10/22 04:24 RDW 16.2 % (13.2-15.2) H 04/10/22 04:24 Plt Count 160 K/mm3 (140-440) 04/10/22 04:24 Lymph % (Auto) 8.4 % (13.4-35.0) L 04/09/22 12:52 [place] % (Auto) 6.5 % (0.0-7.3) 04/09/22 12:52 Eos % (Auto) 0.0 % (0.0-4.3) 04/09/22 12:52 Baso % (Auto) 0.5 % (0.0-1.8) 04/09/22 12:52 Lymph # (Auto) 0.7 K/mm3 (1.2-5.4) L 04/09/22 12:52 [place] # (Auto) 0.5 K/mm3 (0.0-0.8) 04/09/22 12:52 Eos # (Auto) 0.0 K/mm3 (0.0-0.4) 04/09/22 12:52 Baso # (Auto) 0.0 K/mm3 (0.0-0.1) 04/09/22 12:52 Add Manual Diff Complete 04/10/22 04:24 Total Counted 100 04/10/22 04:24 Seg Neutrophils % 84.6 % (40.0-70.0) H 04/09/22 12:52 Seg Neuts % (Manual) 94.0 % (40.0-70.0) H 04/10/22 04:24 Band Neutrophils % 0 % 04/10/22 04:24 Lymphocytes % (Manual) 3.0 % (13.4-35.0) L 04/10/22 04:24 Reactive Lymphs % (Man) 0 % 04/10/22 04:24 Monocytes % (Manual) 3.0 % (0.0-7.3) 04/10/22 04:24 Eosinophils % (Manual) 0 % (0.0-4.3) 04/10/22 04:24 Basophils % (Manual) 0 % (0.0-1.8) 04/10/22 04:24 Metamyelocytes % 0 % 04/10/22 04:24 Myelocytes % 0 % 04/10/22 04:24 Promyelocytes % 0 % 04/10/22 04:24 Blast Cells % 0 % 04/10/22 04:24 Nucleated RBC % Not Reportable 04/10/22 04:24 Seg Neutrophils # 7.0 K/mm3 (1.8-7.7) 04/09/22 12:52 Seg Neutrophils # Man 15.4 K/mm3 (1.8-7.7) H 04/10/22 04:24 Band Neutrophils # 0.0 K/mm3 04/10/22 04:24 Lymphocytes # (Manual) 0.5 K/mm3 (1.2-5.4) L 04/10/22 04:24 Abs React Lymphs (Man) 0.0 K/mm3 04/10/22 04:24 Monocytes # (Manual) 0.5 K/mm3 (0.0-0.8) 04/10/22 04:24 Eosinophils # (Manual) 0.0 K/mm3 (0.0-0.4) 04/10/22 04:24 Basophils # (Manual) 0.0 K/mm3 (0.0-0.1) 04/10/22 04:24 Metamyelocytes # 0.0 K/mm3 04/10/22 04:24 Myelocytes # 0.0 K/mm3 04/10/22 04:24 Promyelocytes # 0.0 K/mm3 04/10/22 04:24 Blast Cells # 0.0 K/mm3 04/10/22 04:24 WBC Morphology Not Reportable 04/10/22 04:24 Hypersegmented Neuts Not Reportable 04/10/22 04:24 Hyposegmented Neuts Not Reportable 04/10/22 04:24 Hypogranular Neuts Not Reportable 04/10/22 04:24 Smudge Cells Not Reportable 04/10/22 04:24 Toxic Granulation Not Reportable 04/10/22 04:24 Toxic Vacuolation Not Reportable 04/10/22 04:24 Dohle Bodies Not Reportable 04/10/22 04:24 Pelger-Huet Anomaly Not Reportable 04/10/22 04:24 Aleja Rods Not Reportable 04/10/22 04:24 Platelet Estimate Consistent w auto 04/10/22 04:24 Clumped Platelets Not Reportable 04/10/22 04:24 Plt Clumps, EDTA Not Reportable 04/10/22 04:24 Large Platelets Not Reportable 04/10/22 04:24 Giant Platelets Rare 04/10/22 04:24 Platelet Satelliting Not Reportable 04/10/22 04:24 Plt Morphology Comment Not Reportable 04/10/22 04:24 RBC Morphology Normal 04/10/22 04:24 Dimorphic RBCs Not Reportable 04/10/22 04:24 Polychromasia Not Reportable 04/10/22 04:24 Hypochromasia Not Reportable 04/10/22 04:24 Poikilocytosis Not Reportable 04/10/22 04:24 Anisocytosis Not Reportable 04/10/22 04:24 Microcytosis Not Reportable 04/10/22 04:24 Macrocytosis Not Reportable 04/10/22 04:24 Spherocytes Not Reportable 04/10/22 04:24 Pappenheimer Bodies Not Reportable 04/10/22 04:24 Sickle Cells Not Reportable 04/10/22 04:24 Target Cells Not Reportable 04/10/22 04:24 Tear Drop Cells Not Reportable 04/10/22 04:24 Ovalocytes Not Reportable 04/10/22 04:24 Helmet Cells Not Reportable 04/10/22 04:24 [place] Bodies Not Reportable 04/10/22 04:24 [place] Rings Not Reportable 04/10/22 04:24 [place] Cells Not Reportable 04/10/22 04:24 Bite Cells Not Reportable 04/10/22 04:24 Crenated Cell Not Reportable 04/10/22 04:24 Elliptocytes Not Reportable 04/10/22 04:24 Acanthocytes (Spur) Not Reportable 04/10/22 04:24 Rouleaux Not Reportable 04/10/22 04:24 Hemoglobin C Crystals Not Reportable 04/10/22 04:24 Schistocytes Not Reportable 04/10/22 04:24 Malaria parasites Not Reportable 04/10/22 04:24 [place] Bodies Not Reportable 04/10/22 04:24 Hem Pathologist Commnt No 04/10/22 04:24 PT 14.5 Sec. (12.2-14.9) 04/09/22 12:52 INR 1.02 (0.87-1.13) 04/09/22 12:52 ABG pH 7.095 pH Units (7.350-7.450) L* 04/10/22 04:25 ABG pCO2 28.9 mm Hg 04/10/22 04:25 ABG pO2 112.3 mm Hg (80.0-90.0) H 04/10/22 04:25 ABG HCO3 8.7 mmol/L (20.0-26.0) L 04/10/22 04:25 ABG O2 Saturation 97.6 % (95.0-99.0) 04/10/22 04:25 ABG Base Excess -19.7 mmol/L (-2.0-3.0) L 04/10/22 04:25 ABG Hemoglobin 12.3 gm/dl (12.0-16.0) 04/10/22 04:25 ABG Carboxyhemoglobin 0.3 % (0.0-5.0) 04/10/22 04:25 ABG Methemoglobin 0.3 % (0.0-1.5) 04/10/22 04:25 VBG pH 7.303 (7.320-7.420) L 04/09/22 12:52 Oxyhemoglobin 97.0 % (95.0-99.0) 04/10/22 04:25 FiO2 60.0 % 04/10/22 04:25 Sodium 148 mmol/L (137-145) H 04/10/22 11:47 Potassium 3.4 mmol/L (3.6-5.0) L 04/10/22 11:47 Chloride 116.7 mmol/L (98-107) H 04/10/22 11:47 Carbon Dioxide 15 mmol/L (22-30) L 04/10/22 11:47 Anion Gap 20 mmol/L 04/10/22 11:47 BUN 22 mg/dL (7-17) H 04/10/22 11:47 Creatinine 2.7 mg/dL (0.6-1.2) H 04/10/22 11:47 Estimated GFR 21 ml/min 04/10/22 11:47 BUN/Creatinine Ratio 8 % 04/10/22 11:47 Glucose 190 mg/dL (65-100) H 04/10/22 11:47 POC Glucose 149 mg/dL (70-105) H 04/10/22 16:56 Lactic Acid 6.10 mmol/L (0.7-2.0) H* 04/09/22 Unknown Calcium 6.9 mg/dL (8.4-10.2) L 04/10/22 11:47 Phosphorus 1.40 mg/dL (2.5-4.5) L 04/10/22 04:24 Magnesium 1.60 mg/dL (1.7-2.3) L 04/10/22 04:24 Ferritin 1218.0 ng/mL (10.0-200.0) H 04/10/22 11:47 Total Bilirubin 0.80 mg/dL (0.1-1.2) 04/10/22 04:24 AST 107 units/L (5-40) H 04/10/22 04:24 ALT 64 units/L (7-56) H 04/10/22 04:24 Alkaline Phosphatase 54 units/L (35-129) 04/10/22 04:24 Ammonia 20.0 umol/L (25-60) L 04/09/22 12:52 Lactate Dehydrogenase 482 units/L (91-180) H 04/10/22 11:47 Troponin T < 0.010 ng/mL (0.00-0.029) 04/09/22 12:52 C-Reactive Protein 11.30 mg/dL (0.00-1.30) H 04/10/22 11:47 NT-Pro-B Natriuret Pep 101.1 pg/mL (0-900) 04/09/22 13:45 Total Protein 5.5 g/dL (6.3-8.2) L 04/10/22 04:24 Albumin 2.8 g/dL (3.9-5) L 04/10/22 04:24 Albumin/Globulin Ratio 1.0 % 04/10/22 04:24 Procalcitonin 3.13 ng/mL (<0.15) 04/10/22 11:47 TSH 1.560 mlU/mL (0.270-4.200) 04/09/22 12:52 Free T4 1.33 ng/dL (0.76-1.46) 04/09/22 12:52 Urine Color Yellow (Yellow) 04/09/22 13:24 Urine Turbidity Clear (Clear) 04/09/22 13:24 Urine pH 5.0 (5.0-7.0) 04/09/22 13:24 Ur Specific [place] 1.011 (1.003-1.030) 04/09/22 13:24 Urine Protein 30 mg/dl mg/dL (Negative) 04/09/22 13:24 Urine Glucose (UA) Neg mg/dL (Negative) 04/09/22 13:24 Urine Ketones 20 mg/dL (Negative) 04/09/22 13:24 Urine Blood Neg (Negative) 04/09/22 13:24 Urine Nitrite Neg (Negative) 04/09/22 13:24 Urine Bilirubin Neg (Negative) 04/09/22 13:24 Urine Urobilinogen 4.0 mg/dL (<2.0) 04/09/22 13:24 Ur Leukocyte Esterase Neg (Negative) 04/09/22 13:24 Urine WBC (Auto) 2.0 /HPF (0.0-6.0) 04/09/22 13:24 Urine RBC (Auto) < 1.0 /HPF (0.0-6.0) 04/09/22 13:24 U Epithel Cells (Auto) < 1.0 /HPF (0-13.0) 04/09/22 13:24 Urine Mucus Few /HPF 04/09/22 13:24 Urine Eosinophils None seen (None Seen) 04/10/22 14:50 Urine Creatinine 224.2 mg/dL (0.1-20.0) H 04/10/22 14:50 Protein/Creatinin Ratio 0.77 04/10/22 14:50 Urine Sodium 17 mmol/L 04/10/22 14:50 Urine Total Protein 172 mg/dL (5-11.8) H 04/10/22 14:50 Urine Opiates Screen Presumptive negative 04/09/22 22:58 Urine Methadone Screen Presumptive negative 04/09/22 22:58 Ur Barbiturates Screen Presumptive negative 04/09/22 22:58 Ur Phencyclidine Scrn Presumptive negative 04/09/22 22:58 Ur Amphetamines Screen Presumptive negative 04/09/22 22:58 U Benzodiazepines Scrn Presumptive negative 04/09/22 22:58 Urine Cocaine Screen Presumptive negative 04/09/22 22:58 U Marijuana (THC) Screen Presumptive negative 04/09/22 22:58 Drugs of Abuse Note Disclamer 04/09/22 22:58 Coronavirus (PCR) Positive (Negative) A 04/09/22 13:02 Influenza A (RT-PCR) Negative (Negative) 04/09/22 14:15 Influenza B (RT-PCR) Negative (Negative) 04/09/22 14:15 Microbiology: Microbiology 04/09/22 12:52 Peripheral/Venous Blood Culture - Preliminary NO GROWTH AFTER 24 HOURS 04/09/22 12:52 Peripheral/Venous Blood Culture - Preliminary NO GROWTH AFTER 24 HOURS [place]/IV: Voiding Method Indwelling Catheter Active Medications - Current Medications Current Medications: Generic Name Dose Route Start Last Admin Trade Name Freq PRN Reason Stop Dose Admin Acetaminophen 650 mg 04/09/22 18:11 Acetaminophen 325 Mg Tab PO Q4H PRN Pain MILD(1-3)/Fever >100.5/CARCAMO Dexamethasone 8 mg 04/09/22 19:00 Dexamethasone 4 Mg/Ml Vial IV 04/18/22 19:01 Q24H JO ANN Dextrose 0 ml 04/10/22 00:40 Dextrose 50% In Water (25gm) 50 Ml Syringe IV Q30MIN PRN Hypoglycemia Protocol Enoxaparin Sodium 30 mg 04/10/22 10:00 04/10/22 10:20 Enoxaparin 30 Mg/0.3 Ml Inj SUB-Q 30 mg QDAY JO ANN Administration Famotidine 10 mg 04/09/22 22:00 04/10/22 10:20 Famotidine 20 Mg/2 Ml Inj IV 10 mg BID JO ANN Administration NORepinephrine/NS 8 MG-250 ML 8 mg in 250 mls @ 3.75 mls/hr 04/09/22 16:00 04/10/22 13:11 Norepinephrine/Ns 8 Mg-250 Ml (Double Conc) IV 30 mcg/min TITRATE JO ANN 56.25 mls/hr Administration Protocol 2 MCG/MIN Vasopressin 20 unit/ Sodium 101 mls @ 9.09 mls/hr 04/09/22 18:00 04/10/22 07:00 Chloride IV 0.03 units/min TITR JO ANN 9.09 mls/hr Titration Protocol 0.03 UNITS/MIN Azithromycin 500 mg in 250 mls @ 250 mls/hr 04/09/22 19:00 04/09/22 18:40 Zithromax/Ns IV Not Given Q24H JO ANN Cefepime HCl 2 gm in 100 mls @ 200 mls/hr 04/10/22 01:00 04/10/22 01:08 Cefepime/Ns 2 Gm/100 Ml IV 200 mls/hr Q24H JO ANN Administration Protocol Insulin Human Regular 100 100 mls @ 1 mls/hr 04/10/22 01:00 04/10/22 15:35 units/ Sodium Chloride IV 3 units/hr TITR JO ANN 3 mls/hr Titration Protocol 1 UNITS/HR Dopamine HCl/Dextrose 800 mg in 250 mls @ 3.116 mls/hr 04/10/22 03:00 04/10/22 16:42 Dopamine 800 Mg/D5w 250ml IV 4 mcg/kg/min TITR JO ANN 6.233 mls/hr Titration Protocol 2 MCG/KG/MIN Sodium Bicarbonate 150 meq/ 1,150 mls @ 150 mls/hr 04/10/22 11:00 04/10/22 10:56 Dextrose IV 150 mls/hr DIRECT JO ANN Administration Morphine Sulfate 2 mg 04/09/22 18:11 Morphine 2 Mg/1 Ml Inj IV Q4H PRN Pain, Moderate (4-6) Ondansetron HCl 4 mg 04/09/22 18:11 Ondansetron 4 Mg/2 Ml Inj IV Q8H PRN Nausea And Vomiting Sodium Chloride 10 ml 04/09/22 22:00 04/10/22 10:00 Sodium Chloride 0.9% 10 Ml Flush Syringe IV 10 ml BID JO ANN Administration Sodium Chloride 10 ml 04/09/22 18:11 Sodium Chloride 0.9% 10 Ml Flush Syringe IV PRN PRN LINE FLUSH
[2022-04-10] MEDS: AZITHROMYCIN/NS 500 MG/250 ML 500 MG/250 ML BAG IV SCH (20:44)
[2022-04-10] MEDS: dexAMETHasone 4 MG/ML VIAL IV SCH (20:45)
--- NOTE | 2022-04-10 22:42 | Ultrasound Report ---
ULTRASOUND RENAL INDICATION / CLINICAL INFORMATION: renal failure. COMPARISON: CT dated 09/02/20 FINDINGS: RIGHT KIDNEY: Length = 9.0 cm. - Echogenicity: Mildly echogenic. - Parenchymal Thickness: Normal. - Hydronephrosis: None. - Cyst / Mass: None. - Stones: None seen. LEFT KIDNEY: Length = 9.6 cm. - Echogenicity: Mildly echogenic. - Parenchymal Thickness: Normal. - Hydronephrosis: None. - Cyst / Mass: None. - Stones: None seen. URINARY BLADDER: Contracted around a [place] catheter. FREE FLUID: Small amount of free fluid in the abdomen. ADDITIONAL FINDINGS: None. IMPRESSION: 1. Mildly echogenic kidneys which can be seen in medical renal disease. No hydronephrosis. 2. Small amount of free fluid in the abdomen. Signer Name: Adalberto Hernadez MD Signed: 04/10/2022 10:38 PM Workstation Name: [id number]
[2022-04-10 22:57] LABS: Calcium 6.5 mg/dL (8.4-10.2)
[2022-04-11] MEDS: CEFEPIME/NS 2 GM/100 ML 2 GM/100 ML BAG IV SCH (00:01)
[2022-04-11] MEDS: SODIUM BICARBONATE 150 MEQ in DEXTROSE 5% IN WATER 1,000 ML IV SCH ×2 (00:02→06:30)
[2022-04-11 01:39] LABS: ABG Base Excess -5.8 mmol/L (-2.0-3.0); ABG HCO3 17.2 mmol/L (20.0-26.0); ABG Methemoglobin 0.6 % (0.0-1.5); ABG Oxygen Saturation 96.7 % (95.0-99.0); ABG PCO2 26.7 mm Hg; ABG PH 7.427 pH Units (7.350-7.450); ABG PO2 75.1 mm Hg (80.0-90.0)
[2022-04-11] MEDS: VASOPRESSIN 20 UNIT in SODIUM CHLORIDE 0.9% 100 ML IV SCH ×2 (03:29→14:26)
[2022-04-11 04:54] LABS: Hemoglobin 11.7 gm/dl (10.1-14.3); Mean Corpuscular HGB Conc 32 % (30-34); Mean Corpuscular Volume 88 fl (79-97); Platelet Count 164 K/mm3 (140-440); Red Blood Count 4.12 M/mm3 (3.65-5.03); Red Cell Distribution Width 15.7 % (13.2-15.2)
[2022-04-11 05:10] LABS: Albumin 2.7 g/dL (3.9-5); Calcium 6.8 mg/dL (8.4-10.2)
[2022-04-11] MEDS: FAMOTIDINE 20 MG/2 ML INJ IV SCH ×2 (10:13→22:29)
[2022-04-11] MEDS: ENOXAPARIN 30 MG/0.3 ML INJ SUB-Q SCH (10:13)
--- NOTE | 2022-04-11 10:24 | Progress Note ---
Assessment and Plan 77 y/o female with multisystem organ failure, COVID positive 04/11/22: Continue supportive measures. Getting EEG right now. Continue to wean Pressors for MAPs >65. if able to get to just one pressor, will place NG vs OG and attempt trickle feeds. Follow up echo. Down to 45%, good PaO2. Continue to wean, however mental state would preclude extubation at this time. Await renal eval but would like to stop bicarb now that acidosis is better, however needs free water but this could be given do OG/NG if end up placing, otherwise would just do D5W. If able to place tube and feed, then can attempt to get off insulin drip. Plan to update family after echo and EEG read. 1. Neuro-concern for seizures. EEG pending. Hold on long acting anti-epileptic therapy. Neurology consulted and has seen. patient is not on any continuous sedation at present 2. CV-Cardiovascular collapse on pressors (3). Could benefit from echo. At tempt volume resuscitation but no improvement. Continue pressors and wean as tolerated for MAPs >65 3. Pulm-intubated, not on sedation. COVID positive but oxygenation is stable. Per documentation, mainly intubated for airway protection given altered level of mental status. Not a candidate for Remdesivir and may not be a candidate for actemra. Continue steroids and low Tidal volume strategy for lung protection with permissive hypercapnea and lower PaO2 (55-60) if needed. 4. Renal- worsening renal function and decrease in urine output. Renal following. May need HD but would likely not tolerate and CRRT or CVVH is not available here. Worsening lactic acidosis as well. 5. GI-hold on feeds given pressor requirement, prophylactic therapy 6. Endo-continue insulin drip for now Overall prognosis is guarded to poor. Will discuss with immediate family today. Subjective Date of service: 04/11/22 Interval history: Down to essentially just vasopressin. Mental status is still not improved. Renal function is better and patient has increased her urine output. Echo done but not read yet. No fever. Did get actemra. Acidemia is better. Objective Vital Signs - 12hr 04/10/22 04/10/22 04/10/22 22:21 22:31 22:41 Temperature Pulse Rate 94 H 91 H 93 H Pulse Rate [ Dorsalis Pedis] Pulse Rate [ From Monitor] Respiratory 26 H 26 H 25 H Rate Blood Pressure 117/75 120/70 120/70 O2 Sat by Pulse 99 96 98 Oximetry 04/10/22 04/10/22 04/10/22 22:51 23:00 23:11 Temperature Pulse Rate 91 H 88 93 H Pulse Rate [ Dorsalis Pedis] Pulse Rate [ From Monitor] Respiratory 20 23 25 H Rate Blood Pressure 110/75 113/76 113/76 O2 Sat by Pulse 96 98 96 Oximetry 04/10/22 04/10/22 04/10/22 23:21 23:30 23:41 Temperature Pulse Rate 93 H 92 H 92 H Pulse Rate [ Dorsalis Pedis] Pulse Rate [ From Monitor] Respiratory 22 24 22 Rate Blood Pressure 117/73 112/75 112/75 O2 Sat by Pulse 98 98 98 Oximetry 04/10/22 04/11/22 04/11/22 23:51 00:00 00:03 Temperature 99.9 F H Pulse Rate 93 H 92 H 92 H Pulse Rate [ 94 H Dorsalis Pedis] Pulse Rate [ 103 H From Monitor] Respiratory 20 23 22 Rate Blood Pressure 114/66 113/76 113/76 O2 Sat by Pulse 98 98 99 Oximetry 04/11/22 04/11/22 04/11/22 00:11 00:21 00:30 Temperature Pulse Rate 93 H 93 H 88 Pulse Rate [ Dorsalis Pedis] Pulse Rate [ From Monitor] Respiratory 24 25 H 24 Rate Blood Pressure 113/76 104/65 113/65 O2 Sat by Pulse 94 94 95 Oximetry 04/11/22 04/11/22 04/11/22 00:41 00:51 01:00 Temperature Pulse Rate 92 H 92 H 91 H Pulse Rate [ Dorsalis Pedis] Pulse Rate [ From Monitor] Respiratory 23 25 H 19 Rate Blood Pressure 113/65 122/70 106/71 O2 Sat by Pulse 95 93 95 Oximetry 04/11/22 04/11/22 04/11/22 01:11 01:21 01:30 Temperature Pulse Rate 71 71 91 H Pulse Rate [ Dorsalis Pedis] Pulse Rate [ From Monitor] Respiratory 23 23 26 H Rate Blood Pressure 106/71 103/73 106/70 O2 Sat by Pulse 95 93 94 Oximetry 04/11/22 04/11/22 04/11/22 01:41 01:51 02:00 Temperature Pulse Rate 92 H 91 H 90 Pulse Rate [ Dorsalis Pedis] Pulse Rate [ From Monitor] Respiratory 22 22 Rate Blood Pressure 106/70 101/68 112/67 O2 Sat by Pulse 94 95 95 Oximetry 04/11/22 04/11/22 04/11/22 02:10 02:11 02:21 Temperature 99.7 F H Pulse Rate 91 H 91 H Pulse Rate [ Dorsalis Pedis] Pulse Rate [ From Monitor] Respiratory 22 Rate Blood Pressure 112/67 104/62 O2 Sat by Pulse 94 95 Oximetry 04/11/22 04/11/22 04/11/22 02:30 02:41 02:51 Temperature Pulse Rate 92 H 91 H 90 Pulse Rate [ Dorsalis Pedis] Pulse Rate [ From Monitor] Respiratory 25 H 23 22 Rate Blood Pressure 106/63 106/63 110/65 O2 Sat by Pulse 94 94 94 Oximetry 04/11/22 04/11/22 04/11/22 03:00 03:11 03:21 Temperature Pulse Rate 90 90 89 Pulse Rate [ Dorsalis Pedis] Pulse Rate [ From Monitor] Respiratory 21 Rate Blood Pressure 103/70 103/70 101/60 O2 Sat by Pulse 94 94 93 Oximetry 04/11/22 04/11/22 04/11/22 03:28 03:30 03:41 Temperature Pulse Rate 90 89 89 Pulse Rate [ Dorsalis Pedis] Pulse Rate [ From Monitor] Respiratory 2 L 23 25 H Rate Blood Pressure 104/62 105/57 105/57 O2 Sat by Pulse 96 93 94 Oximetry 04/11/22 04/11/22 04/11/22 03:51 04:00 04:11 Temperature 99.7 F H Pulse Rate 85 89 90 Pulse Rate [ 94 H Dorsalis Pedis] Pulse Rate [ 103 H From Monitor] Respiratory 21 25 H 24 Rate Blood Pressure 113/67 103/68 103/68 O2 Sat by Pulse 94 94 93 Oximetry 04/11/22 04/11/22 04/11/22 04:21 04:30 04:41 Temperature Pulse Rate 91 H 91 H 97 H Pulse Rate [ Dorsalis Pedis] Pulse Rate [ From Monitor] Respiratory 26 H 21 24 Rate Blood Pressure 104/65 120/57 120/57 O2 Sat by Pulse 94 93 93 Oximetry 04/11/22 04/11/22 04/11/22 04:51 05:01 05:11 Temperature Pulse Rate 90 91 H 91 H Pulse Rate [ Dorsalis Pedis] Pulse Rate [ From Monitor] Respiratory 23 25 H 25 H Rate Blood Pressure 123/64 110/66 110/66 O2 Sat by Pulse 94 94 94 Oximetry 04/11/22 04/11/22 04/11/22 05:21 05:30 05:41 Temperature Pulse Rate 90 97 H 98 H Pulse Rate [ Dorsalis Pedis] Pulse Rate [ From Monitor] Respiratory 25 H 25 H 24 Rate Blood Pressure 103/59 100/63 100/63 O2 Sat by Pulse 94 94 94 Oximetry 04/11/22 04/11/22 04/11/22 05:51 06:00 06:11 Temperature 99.5 F Pulse Rate 97 H 95 H 95 H Pulse Rate [ Dorsalis Pedis] Pulse Rate [ From Monitor] Respiratory 26 H 21 26 H Rate Blood Pressure 103/64 105/58 105/58 O2 Sat by Pulse 93 94 94 Oximetry 04/11/22 04/11/22 04/11/22 06:21 06:30 06:41 Temperature Pulse Rate 93 H 92 H 88 Pulse Rate [ Dorsalis Pedis] Pulse Rate [ From Monitor] Respiratory 21 20 22 Rate Blood Pressure 100/63 101/54 101/54 O2 Sat by Pulse 94 94 94 Oximetry 04/11/22 04/11/22 04/11/22 06:51 07:01 07:11 Temperature Pulse Rate 90 85 87 Pulse Rate [ Dorsalis Pedis] Pulse Rate [ From Monitor] Respiratory 24 23 23 Rate Blood Pressure 100/66 99/67 99/67 O2 Sat by Pulse 95 95 94 Oximetry 04/11/22 04/11/22 04/11/22 07:13 07:21 07:30 Temperature Pulse Rate 81 80 82 Pulse Rate [ Dorsalis Pedis] Pulse Rate [ From Monitor] Respiratory 24 25 H Rate Blood Pressure 99/67 103/63 95/66 O2 Sat by Pulse 95 98 95 Oximetry 04/11/22 04/11/22 04/11/22 07:41 07:51 08:00 Temperature 99.1 F Pulse Rate 82 81 80 Pulse Rate [ 94 H Dorsalis Pedis] Pulse Rate [ 103 H From Monitor] Respiratory 25 H 23 22 Rate Blood Pressure 95/66 103/65 94/66 O2 Sat by Pulse 95 94 95 Oximetry 04/11/22 04/11/22 04/11/22 08:11 08:21 08:30 Temperature Pulse Rate 82 82 83 Pulse Rate [ Dorsalis Pedis] Pulse Rate [ From Monitor] Respiratory 23 25 H 23 Rate Blood Pressure 94/66 90/69 89/65 O2 Sat by Pulse 95 95 94 Oximetry 04/11/22 04/11/22 04/11/22 08:41 08:51 09:00 Temperature Pulse Rate 80 80 81 Pulse Rate [ Dorsalis Pedis] Pulse Rate [ From Monitor] Respiratory 25 H 22 25 H Rate Blood Pressure 89/65 100/58 106/58 O2 Sat by Pulse 93 94 94 Oximetry 04/11/22 04/11/22 04/11/22 09:11 09:21 09:30 Temperature Pulse Rate 81 80 80 Pulse Rate [ Dorsalis Pedis] Pulse Rate [ From Monitor] Respiratory 18 24 20 Rate Blood Pressure 106/58 86/62 95/59 O2 Sat by Pulse 94 94 94 Oximetry 04/11/22 04/11/22 04/11/22 09:41 09:51 10:00 Temperature Pulse Rate 81 79 80 Pulse Rate [ Dorsalis Pedis] Pulse Rate [ From Monitor] Respiratory 24 25 H 25 H Rate Blood Pressure 95/59 95/60 95/62 O2 Sat by Pulse 93 93 93 Oximetry CBC and BMP: 04/11/22 03:58 04/11/22 03:58 ABG, PT/INR, D-dimer: ABG ABG pH 7.427 pH Units (7.350-7.450) 04/11/22 01:30 ABG pCO2 26.7 mm Hg 04/11/22 01:30 ABG pO2 75.1 mm Hg (80.0-90.0) L 04/11/22 01:30 ABG O2 Saturation 96.7 % (95.0-99.0) 04/11/22 01:30 PT/INR, D-dimer PT 14.5 Sec. (12.2-14.9) 04/09/22 12:52 INR 1.02 (0.87-1.13) 04/09/22 12:52 Abnormal lab findings: Abnormal Labs 04/09/22 04/09/22 04/09/22 11:59 12:52 12:52 WBC RDW 15.3 H Lymph % (Auto) 8.4 L Lymph # (Auto) 0.7 L Seg Neutrophils % 84.6 H Seg Neuts % (Manual) Lymphocytes % (Manual) Seg Neutrophils # Man Lymphocytes # (Manual) ABG pH ABG pO2 ABG HCO3 ABG O2 Saturation ABG Base Excess ABG Hemoglobin VBG pH Sodium Potassium Chloride 112.7 H Carbon Dioxide 18 L BUN Creatinine 2.0 H Glucose 204 H POC Glucose 203 H Lactic Acid Calcium Phosphorus Magnesium Ferritin Total Bilirubin 1.30 H AST 47 H ALT Ammonia Lactate Dehydrogenase C-Reactive Protein Total Protein Albumin Urine Creatinine Urine Total Protein Coronavirus (PCR) 04/09/22 04/09/22 04/09/22 12:52 12:52 13:02 WBC RDW Lymph % (Auto) Lymph # (Auto) Seg Neutrophils % Seg Neuts % (Manual) Lymphocytes % (Manual) Seg Neutrophils # Man Lymphocytes # (Manual) ABG pH ABG pO2 ABG HCO3 ABG O2 Saturation ABG Base Excess ABG Hemoglobin VBG pH 7.303 L Sodium Potassium Chloride Carbon Dioxide BUN Creatinine Glucose POC Glucose Lactic Acid Calcium Phosphorus Magnesium Ferritin Total Bilirubin AST ALT Ammonia 20.0 L Lactate Dehydrogenase C-Reactive Protein Total Protein Albumin Urine Creatinine Urine Total Protein Coronavirus (PCR) Positive A 04/09/22 04/09/22 04/09/22 15:49 22:15 22:58 WBC RDW Lymph % (Auto) Lymph # (Auto) Seg Neutrophils % Seg Neuts % (Manual) Lymphocytes % (Manual) Seg Neutrophils # Man Lymphocytes # (Manual) ABG pH 7.097 L* ABG pO2 188.8 H ABG HCO3 7.4 L ABG O2 Saturation 99.1 H ABG Base Excess -20.7 L ABG Hemoglobin VBG pH Sodium Potassium Chloride 108.8 H Carbon Dioxide 10 L D BUN 20 H Creatinine 2.6 H Glucose 465 H POC Glucose Lactic Acid 2.70 H* Calcium 7.4 L Phosphorus Magnesium Ferritin Total Bilirubin AST ALT Ammonia Lactate Dehydrogenase C-Reactive Protein Total Protein Albumin Urine Creatinine Urine Total Protein Coronavirus (PCR) 04/09/22 04/09/22 04/10/22 23:19 Unknown 00:03 WBC RDW Lymph % (Auto) Lymph # (Auto) Seg Neutrophils % Seg Neuts % (Manual) Lymphocytes % (Manual) Seg Neutrophils # Man Lymphocytes # (Manual) ABG pH ABG pO2 ABG HCO3 ABG O2 Saturation ABG Base Excess ABG Hemoglobin VBG pH Sodium Potassium Chloride Carbon Dioxide BUN Creatinine Glucose POC Glucose 356 H Lactic Acid 7.50 H* 6.10 H* Calcium Phosphorus Magnesium Ferritin Total Bilirubin AST ALT Ammonia Lactate Dehydrogenase C-Reactive Protein Total Protein Albumin Urine Creatinine Urine Total Protein Coronavirus (PCR) 04/10/22 04/10/22 04/10/22 02:16 03:03 04:00 WBC RDW Lymph % (Auto) Lymph # (Auto) Seg Neutrophils % Seg Neuts % (Manual) Lymphocytes % (Manual) Seg Neutrophils # Man Lymphocytes # (Manual) ABG pH ABG pO2 ABG HCO3 ABG O2 Saturation ABG Base Excess ABG Hemoglobin VBG pH Sodium Potassium Chloride Carbon Dioxide BUN Creatinine Glucose POC Glucose 317 H 325 H 308 H Lactic Acid Calcium Phosphorus Magnesium Ferritin Total Bilirubin AST ALT Ammonia Lactate Dehydrogenase C-Reactive Protein Total Protein Albumin Urine Creatinine Urine Total Protein Coronavirus (PCR) 04/10/22 04/10/22 04/10/22 04:24 04:24 04:24 WBC 16.4 H RDW 16.2 H Lymph % (Auto) Lymph # (Auto) Seg Neutrophils % Seg Neuts % (Manual) 94.0 H Lymphocytes % (Manual) 3.0 L Seg Neutrophils # Man 15.4 H Lymphocytes # (Manual) 0.5 L ABG pH ABG pO2 ABG HCO3 ABG O2 Saturation ABG Base Excess ABG Hemoglobin VBG pH Sodium Potassium 2.9 L* D Chloride 116.1 H Carbon Dioxide 11 L BUN 19 H Creatinine 2.5 H Glucose 376 H POC Glucose Lactic Acid Calcium 6.5 L Phosphorus 1.40 L Magnesium 1.60 L Ferritin Total Bilirubin AST 107 H ALT 64 H Ammonia Lactate Dehydrogenase C-Reactive Protein Total Protein 5.5 L Albumin 2.8 L Urine Creatinine Urine Total Protein Coronavirus (PCR) 04/10/22 04/10/22 04/10/22 04:25 05:17 06:00 WBC RDW Lymph % (Auto) Lymph # (Auto) Seg Neutrophils % Seg Neuts % (Manual) Lymphocytes % (Manual) Seg Neutrophils # Man Lymphocytes # (Manual) ABG pH 7.095 L* ABG pO2 112.3 H ABG HCO3 8.7 L ABG O2 Saturation ABG Base Excess -19.7 L ABG Hemoglobin VBG pH Sodium Potassium Chloride Carbon Dioxide BUN Creatinine Glucose POC Glucose 343 H 278 H Lactic Acid Calcium Phosphorus Magnesium Ferritin Total Bilirubin AST ALT Ammonia Lactate Dehydrogenase C-Reactive Protein Total Protein Albumin Urine Creatinine Urine Total Protein Coronavirus (PCR) 04/10/22 04/10/22 04/10/22 06:53 07:54 08:58 WBC RDW Lymph % (Auto) Lymph # (Auto) Seg Neutrophils % Seg Neuts % (Manual) Lymphocytes % (Manual) Seg Neutrophils # Man Lymphocytes # (Manual) ABG pH ABG pO2 ABG HCO3 ABG O2 Saturation ABG Base Excess ABG Hemoglobin VBG pH Sodium Potassium Chloride Carbon Dioxide BUN Creatinine Glucose POC Glucose 262 H 245 H 215 H Lactic Acid Calcium Phosphorus Magnesium Ferritin Total Bilirubin AST ALT Ammonia Lactate Dehydrogenase C-Reactive Protein Total Protein Albumin Urine Creatinine Urine Total Protein Coronavirus (PCR) 04/10/22 04/10/22 04/10/22 10:12 10:51 11:47 WBC RDW Lymph % (Auto) Lymph # (Auto) Seg Neutrophils % Seg Neuts % (Manual) Lymphocytes % (Manual) Seg Neutrophils # Man Lymphocytes # (Manual) ABG pH ABG pO2 ABG HCO3 ABG O2 Saturation ABG Base Excess ABG Hemoglobin VBG pH Sodium 148 H Potassium 3.4 L Chloride 116.7 H Carbon Dioxide 15 L BUN 22 H Creatinine 2.7 H Glucose 190 H POC Glucose 206 H 176 H Lactic Acid Calcium 6.9 L Phosphorus Magnesium Ferritin Total Bilirubin AST ALT Ammonia Lactate Dehydrogenase C-Reactive Protein Total Protein Albumin Urine Creatinine Urine Total Protein Coronavirus (PCR) 04/10/22 04/10/22 04/10/22 11:47 11:47 12:02 WBC RDW Lymph % (Auto) Lymph # (Auto) Seg Neutrophils % Seg Neuts % (Manual) Lymphocytes % (Manual) Seg Neutrophils # Man Lymphocytes # (Manual) ABG pH ABG pO2 ABG HCO3 ABG O2 Saturation ABG Base Excess ABG Hemoglobin VBG pH Sodium Potassium Chloride Carbon Dioxide BUN Creatinine Glucose POC Glucose 178 H Lactic Acid Calcium Phosphorus Magnesium Ferritin 1218.0 H Total Bilirubin AST ALT Ammonia Lactate Dehydrogenase 482 H C-Reactive Protein 11.30 H Total Protein Albumin Urine Creatinine Urine Total Protein Coronavirus (PCR) 04/10/22 04/10/22 04/10/22 13:13 13:58 14:50 WBC RDW Lymph % (Auto) Lymph # (Auto) Seg Neutrophils % Seg Neuts % (Manual) Lymphocytes % (Manual) Seg Neutrophils # Man Lymphocytes # (Manual) ABG pH ABG pO2 ABG HCO3 ABG O2 Saturation ABG Base Excess ABG Hemoglobin VBG pH Sodium Potassium Chloride Carbon Dioxide BUN Creatinine Glucose POC Glucose 160 H 150 H Lactic Acid Calcium Phosphorus Magnesium Ferritin Total Bilirubin AST ALT Ammonia Lactate Dehydrogenase C-Reactive Protein Total Protein Albumin Urine Creatinine 224.2 H Urine Total Protein 172 H Coronavirus (PCR) 04/10/22 04/10/22 04/10/22 15:24 16:38 16:56 WBC RDW Lymph % (Auto) Lymph # (Auto) Seg Neutrophils % Seg Neuts % (Manual) Lymphocytes % (Manual) Seg Neutrophils # Man Lymphocytes # (Manual) ABG pH ABG pO2 ABG HCO3 ABG O2 Saturation ABG Base Excess ABG Hemoglobin VBG pH Sodium Potassium Chloride Carbon Dioxide BUN Creatinine Glucose POC Glucose 140 H 154 H 149 H Lactic Acid Calcium Phosphorus Magnesium Ferritin Total Bilirubin AST ALT Ammonia Lactate Dehydrogenase C-Reactive Protein Total Protein Albumin Urine Creatinine Urine Total Protein Coronavirus (PCR) 04/10/22 04/10/22 04/10/22 18:21 19:21 20:02 WBC RDW Lymph % (Auto) Lymph # (Auto) Seg Neutrophils % Seg Neuts % (Manual) Lymphocytes % (Manual) Seg Neutrophils # Man Lymphocytes # (Manual) ABG pH ABG pO2 ABG HCO3 ABG O2 Saturation ABG Base Excess ABG Hemoglobin VBG pH Sodium Potassium Chloride Carbon Dioxide BUN Creatinine Glucose POC Glucose 141 H 126 H 139 H Lactic Acid Calcium Phosphorus Magnesium Ferritin Total Bilirubin AST ALT Ammonia Lactate Dehydrogenase C-Reactive Protein Total Protein Albumin Urine Creatinine Urine Total Protein Coronavirus (PCR) 04/10/22 04/10/22 04/10/22 21:04 21:58 22:20 WBC RDW Lymph % (Auto) Lymph # (Auto) Seg Neutrophils % Seg Neuts % (Manual) Lymphocytes % (Manual) Seg Neutrophils # Man Lymphocytes # (Manual) ABG pH ABG pO2 ABG HCO3 ABG O2 Saturation ABG Base Excess ABG Hemoglobin VBG pH Sodium Potassium Chloride 114.5 H Carbon Dioxide 17 L BUN 24 H Creatinine 2.5 H Glucose 165 H POC Glucose 144 H 161 H Lactic Acid Calcium 6.5 L Phosphorus Magnesium Ferritin Total Bilirubin AST ALT Ammonia Lactate Dehydrogenase C-Reactive Protein Total Protein Albumin Urine Creatinine Urine Total Protein Coronavirus (PCR) 04/10/22 04/11/22 04/11/22 23:02 00:08 01:05 WBC RDW Lymph % (Auto) Lymph # (Auto) Seg Neutrophils % Seg Neuts % (Manual) Lymphocytes % (Manual) Seg Neutrophils # Man Lymphocytes # (Manual) ABG pH ABG pO2 ABG HCO3 ABG O2 Saturation ABG Base Excess ABG Hemoglobin VBG pH Sodium Potassium Chloride Carbon Dioxide BUN Creatinine Glucose POC Glucose 160 H 148 H 156 H Lactic Acid Calcium Phosphorus Magnesium Ferritin Total Bilirubin AST ALT Ammonia Lactate Dehydrogenase C-Reactive Protein Total Protein Albumin Urine Creatinine Urine Total Protein Coronavirus (PCR) 04/11/22 04/11/22 04/11/22 01:30 02:05 03:04 WBC RDW Lymph % (Auto) Lymph # (Auto) Seg Neutrophils % Seg Neuts % (Manual) Lymphocytes % (Manual) Seg Neutrophils # Man Lymphocytes # (Manual) ABG pH ABG pO2 75.1 L ABG HCO3 17.2 L ABG O2 Saturation ABG Base Excess -5.8 L ABG Hemoglobin 11.5 L VBG pH Sodium Potassium Chloride Carbon Dioxide BUN Creatinine Glucose POC Glucose 150 H 168 H Lactic Acid Calcium Phosphorus Magnesium Ferritin Total Bilirubin AST ALT Ammonia Lactate Dehydrogenase C-Reactive Protein Total Protein Albumin Urine Creatinine Urine Total Protein Coronavirus (PCR) 04/11/22 04/11/22 04/11/22 03:58 03:58 04:05 WBC 12.2 H RDW 15.7 H Lymph % (Auto) Lymph # (Auto) Seg Neutrophils % Seg Neuts % (Manual) Lymphocytes % (Manual) Seg Neutrophils # Man Lymphocytes # (Manual) ABG pH ABG pO2 ABG HCO3 ABG O2 Saturation ABG Base Excess ABG Hemoglobin VBG pH Sodium 147 H Potassium Chloride 114.2 H Carbon Dioxide 19 L BUN 26 H Creatinine 2.5 H Glucose 154 H POC Glucose 151 H Lactic Acid Calcium 6.8 L Phosphorus Magnesium Ferritin Total Bilirubin AST 106 H ALT 60 H Ammonia Lactate Dehydrogenase C-Reactive Protein Total Protein 5.6 L Albumin 2.7 L Urine Creatinine Urine Total Protein Coronavirus (PCR) 04/11/22 04/11/22 04/11/22 05:14 06:19 08:23 WBC RDW Lymph % (Auto) Lymph # (Auto) Seg Neutrophils % Seg Neuts % (Manual) Lymphocytes % (Manual) Seg Neutrophils # Man Lymphocytes # (Manual) ABG pH ABG pO2 ABG HCO3 ABG O2 Saturation ABG Base Excess ABG Hemoglobin VBG pH Sodium Potassium Chloride Carbon Dioxide BUN Creatinine Glucose POC Glucose 134 H 144 H 143 H Lactic Acid Calcium Phosphorus Magnesium Ferritin Total Bilirubin AST ALT Ammonia Lactate Dehydrogenase C-Reactive Protein Total Protein Albumin Urine Creatinine Urine Total Protein Coronavirus (PCR)
--- NOTE | 2022-04-11 10:36 | Progress Note ---
Assessment and Plan Cultures: SARS CoV2 PCR: Positive Influenza PCR: Negative 04/09/2022 blood culture: no growth. A/P: 77-year-old female with diabetes, history of ovarian cancer believed to be in remission was admitted with altered mental status: #Septic shock, probably secondary to severe COVID-19. ABG showed severe acidosis. UA without pyuria. Chest x-ray showed bilateral airspace opacities. #Bilateral pneumonia: Secondary to COVID-19. Unvaccinated. Actemra administered 04/10/2022. CRP 11.3, procalcitonin 3.3, ferritin 1218, LDH 482 #Acute hypoxic respiratory failure: Requiring mechanical ventilation. #ASHLEY: Renally adjust antibiotics. #Transaminitis Recs: -IV/PO Dexamethasone x 10 days -Due to renal failure, not a candidate for Remdesivir -S/p Actemra 04/10/2022 -prophylactic anticoagulation based on d-dimer per hospital protocol -procal elevated, but in the setting of renal failure, so difficult to interpret, complete 5 days of empiric abx, Ceftriaxone and Vancomycin. -trend ferritin, d-dimer, CRP every 2-3 days -Guarded prognosis Yovani Arce MD, FACP, [facility] ([facility]) O: [phone] F: [phone] C: [phone] Subjective Date of service: 04/11/22 Interval history: Low-grade fever. Remains on the vent. Actemra administered yesterday. CRP 11.3, procalcitonin 3.3, ferritin 1218, LDH 482. Remains on pressors. Objective - Exam Narrative Exam: Physical Exam: Constitutional: sedated, intubated, on the vent Head, Ears, Nose: Normocephalic, atraumatic. External ears, nose normal Eyes: Conjunctivae/corneas clear. No icterus. No ptosis. Neck: intubated Oral: intubated Cardiovascular: S1, S2 + Respiratory: AE fair bilaterally and equal GI: Soft, bowel sounds + Musculoskeletal: No pedal edema, no cyanosis. Skin: No rash or abscess Hem/Lymphatic: No palpable cervical or supraclavicular nodes. No lymphangitis Psych: no agitation Neurological: sedated, intubated, on the vent, exam limited - Constitutional Vitals: Vital Signs Temp Pulse Resp BP Pulse Ox 99.1 F 80 25 H 95/62 93 04/11/22 08:00 04/11/22 10:00 04/11/22 10:00 04/11/22 10:00 04/11/22 10:00 Temperature -Last 24 Hours Temperature 99.1 F Temperature 99.5 F Temperature 99.7 F Temperature 99.7 F Temperature 99.9 F Temperature 99 F Temperature 99.3 F Temperature 99.1 F Temperature 99.1 F Temperature 99.5 F - Labs CBC & Chem 7: 04/11/22 03:58 04/11/22 03:58 Labs: Abnormal lab results 04/10/22 04/10/22 04/10/22 Range/Units 08:58 10:12 10:51 WBC (4.5-11.0) K/mm3 RDW (13.2-15.2) % ABG pO2 (80.0-90.0) mm Hg ABG HCO3 (20.0-26.0) mmol/L ABG Base Excess (-2.0-3.0) mmol/L ABG Hemoglobin (12.0-16.0) gm/dl Sodium (137-145) mmol/L Potassium (3.6-5.0) mmol/L Chloride (98-107) mmol/L Carbon Dioxide (22-30) mmol/L BUN (7-17) mg/dL Creatinine (0.6-1.2) mg/dL Glucose (65-100) mg/dL POC Glucose 215 H 206 H 176 H (70-105) mg/dL Calcium (8.4-10.2) mg/dL Ferritin (10.0-200.0) ng/mL AST (5-40) units/L ALT (7-56) units/L Lactate Dehydrogenase (91-180) units/L C-Reactive Protein (0.00-1.30) mg/dL Total Protein (6.3-8.2) g/dL Albumin (3.9-5) g/dL Urine Creatinine (0.1-20.0) mg/dL Urine Total Protein (5-11.8) mg/dL 04/10/22 04/10/22 04/10/22 Range/Units 11:47 11:47 11:47 WBC (4.5-11.0) K/mm3 RDW (13.2-15.2) % ABG pO2 (80.0-90.0) mm Hg ABG HCO3 (20.0-26.0) mmol/L ABG Base Excess (-2.0-3.0) mmol/L ABG Hemoglobin (12.0-16.0) gm/dl Sodium 148 H (137-145) mmol/L Potassium 3.4 L (3.6-5.0) mmol/L Chloride 116.7 H (98-107) mmol/L Carbon Dioxide 15 L (22-30) mmol/L BUN 22 H (7-17) mg/dL Creatinine 2.7 H (0.6-1.2) mg/dL Glucose 190 H (65-100) mg/dL POC Glucose (70-105) mg/dL Calcium 6.9 L (8.4-10.2) mg/dL Ferritin 1218.0 H (10.0-200.0) ng/mL AST (5-40) units/L ALT (7-56) units/L Lactate Dehydrogenase 482 H (91-180) units/L C-Reactive Protein 11.30 H (0.00-1.30) mg/dL Total Protein (6.3-8.2) g/dL Albumin (3.9-5) g/dL Urine Creatinine (0.1-20.0) mg/dL Urine Total Protein (5-11.8) mg/dL 04/10/22 04/10/22 04/10/22 Range/Units 12:02 13:13 13:58 WBC (4.5-11.0) K/mm3 RDW (13.2-15.2) % ABG pO2 (80.0-90.0) mm Hg ABG HCO3 (20.0-26.0) mmol/L ABG Base Excess (-2.0-3.0) mmol/L ABG Hemoglobin (12.0-16.0) gm/dl Sodium (137-145) mmol/L Potassium (3.6-5.0) mmol/L Chloride (98-107) mmol/L Carbon Dioxide (22-30) mmol/L BUN (7-17) mg/dL Creatinine (0.6-1.2) mg/dL Glucose (65-100) mg/dL POC Glucose 178 H 160 H 150 H (70-105) mg/dL Calcium (8.4-10.2) mg/dL Ferritin (10.0-200.0) ng/mL AST (5-40) units/L ALT (7-56) units/L Lactate Dehydrogenase (91-180) units/L C-Reactive Protein (0.00-1.30) mg/dL Total Protein (6.3-8.2) g/dL Albumin (3.9-5) g/dL Urine Creatinine (0.1-20.0) mg/dL Urine Total Protein (5-11.8) mg/dL 04/10/22 04/10/22 04/10/22 Range/Units 14:50 15:24 16:38 WBC (4.5-11.0) K/mm3 RDW (13.2-15.2) % ABG pO2 (80.0-90.0) mm Hg ABG HCO3 (20.0-26.0) mmol/L ABG Base Excess (-2.0-3.0) mmol/L ABG Hemoglobin (12.0-16.0) gm/dl Sodium (137-145) mmol/L Potassium (3.6-5.0) mmol/L Chloride (98-107) mmol/L Carbon Dioxide (22-30) mmol/L BUN (7-17) mg/dL Creatinine (0.6-1.2) mg/dL Glucose (65-100) mg/dL POC Glucose 140 H 154 H (70-105) mg/dL Calcium (8.4-10.2) mg/dL Ferritin (10.0-200.0) ng/mL AST (5-40) units/L ALT (7-56) units/L Lactate Dehydrogenase (91-180) units/L C-Reactive Protein (0.00-1.30) mg/dL Total Protein (6.3-8.2) g/dL Albumin (3.9-5) g/dL Urine Creatinine 224.2 H (0.1-20.0) mg/dL Urine Total Protein 172 H (5-11.8) mg/dL 04/10/22 04/10/22 04/10/22 Range/Units 16:56 18:21 19:21 WBC (4.5-11.0) K/mm3 RDW (13.2-15.2) % ABG pO2 (80.0-90.0) mm Hg ABG HCO3 (20.0-26.0) mmol/L ABG Base Excess (-2.0-3.0) mmol/L ABG Hemoglobin (12.0-16.0) gm/dl Sodium (137-145) mmol/L Potassium (3.6-5.0) mmol/L Chloride (98-107) mmol/L Carbon Dioxide (22-30) mmol/L BUN (7-17) mg/dL Creatinine (0.6-1.2) mg/dL Glucose (65-100) mg/dL POC Glucose 149 H 141 H 126 H (70-105) mg/dL Calcium (8.4-10.2) mg/dL Ferritin (10.0-200.0) ng/mL AST (5-40) units/L ALT (7-56) units/L Lactate Dehydrogenase (91-180) units/L C-Reactive Protein (0.00-1.30) mg/dL Total Protein (6.3-8.2) g/dL Albumin (3.9-5) g/dL Urine Creatinine (0.1-20.0) mg/dL Urine Total Protein (5-11.8) mg/dL 04/10/22 04/10/22 04/10/22 Range/Units 20:02 21:04 21:58 WBC (4.5-11.0) K/mm3 RDW (13.2-15.2) % ABG pO2 (80.0-90.0) mm Hg ABG HCO3 (20.0-26.0) mmol/L ABG Base Excess (-2.0-3.0) mmol/L ABG Hemoglobin (12.0-16.0) gm/dl Sodium (137-145) mmol/L Potassium (3.6-5.0) mmol/L Chloride (98-107) mmol/L Carbon Dioxide (22-30) mmol/L BUN (7-17) mg/dL Creatinine (0.6-1.2) mg/dL Glucose (65-100) mg/dL POC Glucose 139 H 144 H 161 H (70-105) mg/dL Calcium (8.4-10.2) mg/dL Ferritin (10.0-200.0) ng/mL AST (5-40) units/L ALT (7-56) units/L Lactate Dehydrogenase (91-180) units/L C-Reactive Protein (0.00-1.30) mg/dL Total Protein (6.3-8.2) g/dL Albumin (3.9-5) g/dL Urine Creatinine (0.1-20.0) mg/dL Urine Total Protein (5-11.8) mg/dL 04/10/22 04/10/22 04/11/22 Range/Units 22:20 23:02 00:08 WBC (4.5-11.0) K/mm3 RDW (13.2-15.2) % ABG pO2 (80.0-90.0) mm Hg ABG HCO3 (20.0-26.0) mmol/L ABG Base Excess (-2.0-3.0) mmol/L ABG Hemoglobin (12.0-16.0) gm/dl Sodium (137-145) mmol/L Potassium (3.6-5.0) mmol/L Chloride 114.5 H (98-107) mmol/L Carbon Dioxide 17 L (22-30) mmol/L BUN 24 H (7-17) mg/dL Creatinine 2.5 H (0.6-1.2) mg/dL Glucose 165 H (65-100) mg/dL POC Glucose 160 H 148 H (70-105) mg/dL Calcium 6.5 L (8.4-10.2) mg/dL Ferritin (10.0-200.0) ng/mL AST (5-40) units/L ALT (7-56) units/L Lactate Dehydrogenase (91-180) units/L C-Reactive Protein (0.00-1.30) mg/dL Total Protein (6.3-8.2) g/dL Albumin (3.9-5) g/dL Urine Creatinine (0.1-20.0) mg/dL Urine Total Protein (5-11.8) mg/dL 04/11/22 04/11/22 04/11/22 Range/Units 01:05 01:30 02:05 WBC (4.5-11.0) K/mm3 RDW (13.2-15.2) % ABG pO2 75.1 L (80.0-90.0) mm Hg ABG HCO3 17.2 L (20.0-26.0) mmol/L ABG Base Excess -5.8 L (-2.0-3.0) mmol/L ABG Hemoglobin 11.5 L (12.0-16.0) gm/dl Sodium (137-145) mmol/L Potassium (3.6-5.0) mmol/L Chloride (98-107) mmol/L Carbon Dioxide (22-30) mmol/L BUN (7-17) mg/dL Creatinine (0.6-1.2) mg/dL Glucose (65-100) mg/dL POC Glucose 156 H 150 H (70-105) mg/dL Calcium (8.4-10.2) mg/dL Ferritin (10.0-200.0) ng/mL AST (5-40) units/L ALT (7-56) units/L Lactate Dehydrogenase (91-180) units/L C-Reactive Protein (0.00-1.30) mg/dL Total Protein (6.3-8.2) g/dL Albumin (3.9-5) g/dL Urine Creatinine (0.1-20.0) mg/dL Urine Total Protein (5-11.8) mg/dL 04/11/22 04/11/22 04/11/22 Range/Units 03:04 03:58 03:58 WBC 12.2 H (4.5-11.0) K/mm3 RDW 15.7 H (13.2-15.2) % ABG pO2 (80.0-90.0) mm Hg ABG HCO3 (20.0-26.0) mmol/L ABG Base Excess (-2.0-3.0) mmol/L ABG Hemoglobin (12.0-16.0) gm/dl Sodium 147 H (137-145) mmol/L Potassium (3.6-5.0) mmol/L Chloride 114.2 H (98-107) mmol/L Carbon Dioxide 19 L (22-30) mmol/L BUN 26 H (7-17) mg/dL Creatinine 2.5 H (0.6-1.2) mg/dL Glucose 154 H (65-100) mg/dL POC Glucose 168 H (70-105) mg/dL Calcium 6.8 L (8.4-10.2) mg/dL Ferritin (10.0-200.0) ng/mL AST 106 H (5-40) units/L ALT 60 H (7-56) units/L Lactate Dehydrogenase (91-180) units/L C-Reactive Protein (0.00-1.30) mg/dL Total Protein 5.6 L (6.3-8.2) g/dL Albumin 2.7 L (3.9-5) g/dL Urine Creatinine (0.1-20.0) mg/dL Urine Total Protein (5-11.8) mg/dL 04/11/22 04/11/22 04/11/22 Range/Units 04:05 05:14 06:19 WBC (4.5-11.0) K/mm3 RDW (13.2-15.2) % ABG pO2 (80.0-90.0) mm Hg ABG HCO3 (20.0-26.0) mmol/L ABG Base Excess (-2.0-3.0) mmol/L ABG Hemoglobin (12.0-16.0) gm/dl Sodium (137-145) mmol/L Potassium (3.6-5.0) mmol/L Chloride (98-107) mmol/L Carbon Dioxide (22-30) mmol/L BUN (7-17) mg/dL Creatinine (0.6-1.2) mg/dL Glucose (65-100) mg/dL POC Glucose 151 H 134 H 144 H (70-105) mg/dL Calcium (8.4-10.2) mg/dL Ferritin (10.0-200.0) ng/mL AST (5-40) units/L ALT (7-56) units/L Lactate Dehydrogenase (91-180) units/L C-Reactive Protein (0.00-1.30) mg/dL Total Protein (6.3-8.2) g/dL Albumin (3.9-5) g/dL Urine Creatinine (0.1-20.0) mg/dL Urine Total Protein (5-11.8) mg/dL 04/11/22 Range/Units 08:23 WBC (4.5-11.0) K/mm3 RDW (13.2-15.2) % ABG pO2 (80.0-90.0) mm Hg ABG HCO3 (20.0-26.0) mmol/L ABG Base Excess (-2.0-3.0) mmol/L ABG Hemoglobin (12.0-16.0) gm/dl Sodium (137-145) mmol/L Potassium (3.6-5.0) mmol/L Chloride (98-107) mmol/L Carbon Dioxide (22-30) mmol/L BUN (7-17) mg/dL Creatinine (0.6-1.2) mg/dL Glucose (65-100) mg/dL POC Glucose 143 H (70-105) mg/dL Calcium (8.4-10.2) mg/dL Ferritin (10.0-200.0) ng/mL AST (5-40) units/L ALT (7-56) units/L Lactate Dehydrogenase (91-180) units/L C-Reactive Protein (0.00-1.30) mg/dL Total Protein (6.3-8.2) g/dL Albumin (3.9-5) g/dL Urine Creatinine (0.1-20.0) mg/dL Urine Total Protein (5-11.8) mg/dL
--- NOTE | 2022-04-11 11:23 | Progress Note ---
Assessment and Plan COVID positive Sepsis Hypotension Diabetes Mellitus/DKA Acute Respiratory Failure Hypokalemia Metabolic Acidosis Hypophosphatemia Plan: stable Cr and BUN, no UOP recorded will check 24 hours Cr clearance Baseline serum creatinine unknown renal US -ve for obstruction Acidosis- On Sodium Bicarbonate 150 meq in D5W@ 150 ml/hr DKA-on insulin drip COVID positive-as per ID Renally dose medications Obtain daily weights Monitor I/O's daily Will monitor renal function closely Subjective Date of service: 04/11/22 Principal diagnosis: ASHLEY Interval history: on isolation for COVID-19, remains on the vent Objective - Vital Signs Vital signs: Vital Signs - 12hr 04/10/22 04/10/22 04/10/22 23:30 23:41 23:51 Temperature Pulse Rate 92 H 92 H 93 H Pulse Rate [ Dorsalis Pedis] Pulse Rate [ From Monitor] Respiratory 24 22 20 Rate Blood Pressure 112/75 112/75 114/66 O2 Sat by Pulse 98 98 98 Oximetry 04/11/22 04/11/22 04/11/22 00:00 00:03 00:11 Temperature 99.9 F H Pulse Rate 92 H 92 H 93 H Pulse Rate [ 94 H Dorsalis Pedis] Pulse Rate [ 103 H From Monitor] Respiratory 23 22 24 Rate Blood Pressure 113/76 113/76 113/76 O2 Sat by Pulse 98 99 94 Oximetry 04/11/22 04/11/22 04/11/22 00:21 00:30 00:41 Temperature Pulse Rate 93 H 88 92 H Pulse Rate [ Dorsalis Pedis] Pulse Rate [ From Monitor] Respiratory 25 H 24 23 Rate Blood Pressure 104/65 113/65 113/65 O2 Sat by Pulse 94 95 95 Oximetry 04/11/22 04/11/22 04/11/22 00:51 01:00 01:11 Temperature Pulse Rate 92 H 91 H 71 Pulse Rate [ Dorsalis Pedis] Pulse Rate [ From Monitor] Respiratory 25 H 19 23 Rate Blood Pressure 122/70 106/71 106/71 O2 Sat by Pulse 93 95 95 Oximetry 04/11/22 04/11/22 04/11/22 01:21 01:30 01:41 Temperature Pulse Rate 71 91 H 92 H Pulse Rate [ Dorsalis Pedis] Pulse Rate [ From Monitor] Respiratory 23 26 H 22 Rate Blood Pressure 103/73 106/70 106/70 O2 Sat by Pulse 93 94 94 Oximetry 04/11/22 04/11/22 04/11/22 01:51 02:00 02:10 Temperature 99.7 F H Pulse Rate 91 H 90 Pulse Rate [ Dorsalis Pedis] Pulse Rate [ From Monitor] Respiratory 22 22 Rate Blood Pressure 101/68 112/67 O2 Sat by Pulse 95 95 Oximetry 04/11/22 04/11/22 04/11/22 02:11 02:21 02:30 Temperature Pulse Rate 91 H 91 H 92 H Pulse Rate [ Dorsalis Pedis] Pulse Rate [ From Monitor] Respiratory 21 22 25 H Rate Blood Pressure 112/67 104/62 106/63 O2 Sat by Pulse 94 95 94 Oximetry 04/11/22 04/11/22 04/11/22 02:41 02:51 03:00 Temperature Pulse Rate 91 H 90 90 Pulse Rate [ Dorsalis Pedis] Pulse Rate [ From Monitor] Respiratory 23 22 Rate Blood Pressure 106/63 110/65 103/70 O2 Sat by Pulse 94 94 94 Oximetry 04/11/22 04/11/22 04/11/22 03:11 03:21 03:28 Temperature Pulse Rate 90 89 90 Pulse Rate [ Dorsalis Pedis] Pulse Rate [ From Monitor] Respiratory 22 21 2 L Rate Blood Pressure 103/70 101/60 104/62 O2 Sat by Pulse 94 93 96 Oximetry 04/11/22 04/11/22 04/11/22 03:30 03:41 03:51 Temperature Pulse Rate 89 89 85 Pulse Rate [ Dorsalis Pedis] Pulse Rate [ From Monitor] Respiratory 23 25 H 21 Rate Blood Pressure 105/57 105/57 113/67 O2 Sat by Pulse 93 94 94 Oximetry 04/11/22 04/11/22 04/11/22 04:00 04:11 04:21 Temperature 99.7 F H Pulse Rate 89 90 91 H Pulse Rate [ 94 H Dorsalis Pedis] Pulse Rate [ 103 H From Monitor] Respiratory 25 H 24 26 H Rate Blood Pressure 103/68 103/68 104/65 O2 Sat by Pulse 94 93 94 Oximetry 04/11/22 04/11/22 04/11/22 04:30 04:41 04:51 Temperature Pulse Rate 91 H 97 H 90 Pulse Rate [ Dorsalis Pedis] Pulse Rate [ From Monitor] Respiratory 21 24 23 Rate Blood Pressure 120/57 120/57 123/64 O2 Sat by Pulse 93 93 94 Oximetry 04/11/22 04/11/22 04/11/22 05:01 05:11 05:21 Temperature Pulse Rate 91 H 91 H 90 Pulse Rate [ Dorsalis Pedis] Pulse Rate [ From Monitor] Respiratory 25 H 25 H 25 H Rate Blood Pressure 110/66 110/66 103/59 O2 Sat by Pulse 94 94 94 Oximetry 04/11/22 04/11/22 04/11/22 05:30 05:41 05:51 Temperature Pulse Rate 97 H 98 H 97 H Pulse Rate [ Dorsalis Pedis] Pulse Rate [ From Monitor] Respiratory 25 H 24 26 H Rate Blood Pressure 100/63 100/63 103/64 O2 Sat by Pulse 94 94 93 Oximetry 04/11/22 04/11/22 04/11/22 06:00 06:11 06:21 Temperature 99.5 F Pulse Rate 95 H 95 H 93 H Pulse Rate [ Dorsalis Pedis] Pulse Rate [ From Monitor] Respiratory 21 26 H 21 Rate Blood Pressure 105/58 105/58 100/63 O2 Sat by Pulse 94 94 94 Oximetry 04/11/22 04/11/22 04/11/22 06:30 06:41 06:51 Temperature Pulse Rate 92 H 88 90 Pulse Rate [ Dorsalis Pedis] Pulse Rate [ From Monitor] Respiratory 20 22 24 Rate Blood Pressure 101/54 101/54 100/66 O2 Sat by Pulse 94 94 95 Oximetry 04/11/22 04/11/22 04/11/22 07:01 07:11 07:13 Temperature Pulse Rate 85 87 81 Pulse Rate [ Dorsalis Pedis] Pulse Rate [ From Monitor] Respiratory 23 23 Rate Blood Pressure 99/67 99/67 99/67 O2 Sat by Pulse 95 94 95 Oximetry 04/11/22 04/11/22 04/11/22 07:21 07:30 07:41 Temperature Pulse Rate 80 82 82 Pulse Rate [ Dorsalis Pedis] Pulse Rate [ From Monitor] Respiratory 24 25 H 25 H Rate Blood Pressure 103/63 95/66 95/66 O2 Sat by Pulse 98 95 95 Oximetry 04/11/22 04/11/22 04/11/22 07:51 08:00 08:11 Temperature 99.1 F Pulse Rate 81 80 82 Pulse Rate [ 94 H Dorsalis Pedis] Pulse Rate [ 103 H From Monitor] Respiratory 23 22 23 Rate Blood Pressure 103/65 94/66 94/66 O2 Sat by Pulse 94 95 95 Oximetry 04/11/22 04/11/22 04/11/22 08:21 08:30 08:41 Temperature Pulse Rate 82 83 80 Pulse Rate [ Dorsalis Pedis] Pulse Rate [ From Monitor] Respiratory 25 H 23 25 H Rate Blood Pressure 90/69 89/65 89/65 O2 Sat by Pulse 95 94 93 Oximetry 04/11/22 04/11/22 04/11/22 08:51 09:00 09:11 Temperature Pulse Rate 80 81 81 Pulse Rate [ Dorsalis Pedis] Pulse Rate [ From Monitor] Respiratory 22 25 H 18 Rate Blood Pressure 100/58 106/58 106/58 O2 Sat by Pulse 94 94 94 Oximetry 04/11/22 04/11/22 04/11/22 09:21 09:30 09:41 Temperature Pulse Rate 80 80 81 Pulse Rate [ Dorsalis Pedis] Pulse Rate [ From Monitor] Respiratory 24 20 24 Rate Blood Pressure 86/62 95/59 95/59 O2 Sat by Pulse 94 94 93 Oximetry 04/11/22 04/11/22 09:51 10:00 Temperature Pulse Rate 79 78 Pulse Rate [ Dorsalis Pedis] Pulse Rate [ From Monitor] Respiratory 25 H 25 H Rate Blood Pressure 95/60 95/62 O2 Sat by Pulse 93 93 Oximetry - Lab 04/11/22 03:58 04/11/22 03:58 Most recent lab results ABG pH 7.427 pH Units (7.350-7.450) 04/11/22 01:30 ABG pCO2 26.7 mm Hg 04/11/22 01:30 ABG pO2 75.1 mm Hg (80.0-90.0) L 04/11/22 01:30 ABG HCO3 17.2 mmol/L (20.0-26.0) L 04/11/22 01:30 ABG O2 Saturation 96.7 % (95.0-99.0) 04/11/22 01:30 Calcium 6.8 mg/dL (8.4-10.2) L 04/11/22 03:58 Phosphorus 3.10 mg/dL (2.5-4.5) D 04/11/22 03:58 Magnesium 2.00 mg/dL (1.7-2.3) 04/11/22 03:58 Urine Creatinine 224.2 mg/dL (0.1-20.0) H 04/10/22 14:50 Urine Sodium 17 mmol/L 04/10/22 14:50 Urine Total Protein 172 mg/dL (5-11.8) H 04/10/22 14:50 Medications & Allergies - Medications Allergies/Adverse Reactions: Allergies No Known Allergies Allergy (Verified 04/09/22 13:44) Active Medications: Generic Name Dose Route Start Last Admin Trade Name Freq PRN Reason Stop Dose Admin Acetaminophen 650 mg 04/09/22 18:11 Acetaminophen 325 Mg Tab PO Q4H PRN Pain MILD(1-3)/Fever >100.5/CARCAMO Dexamethasone 8 mg 04/09/22 19:00 04/10/22 20:45 Dexamethasone 4 Mg/Ml Vial IV 04/18/22 19:01 8 mg Q24H JO ANN Administration Dextrose 0 ml 04/10/22 00:40 Dextrose 50% In Water (25gm) 50 Ml Syringe IV Q30MIN PRN Hypoglycemia Protocol Enoxaparin Sodium 30 mg 04/10/22 10:00 04/11/22 10:13 Enoxaparin 30 Mg/0.3 Ml Inj SUB-Q 30 mg QDAY JO ANN Administration Famotidine 10 mg 04/09/22 22:00 04/11/22 10:13 Famotidine 20 Mg/2 Ml Inj IV 10 mg BID JO ANN Administration NORepinephrine/NS 8 MG-250 ML 8 mg in 250 mls @ 3.75 mls/hr 04/09/22 16:00 04/11/22 10:00 Norepinephrine/Ns 8 Mg-250 Ml (Double Conc) IV 0.5 mcg/min TITRATE JO ANN 0.938 mls/hr Titration Protocol 2 MCG/MIN Vasopressin 20 unit/ Sodium 101 mls @ 9.09 mls/hr 04/09/22 18:00 04/11/22 03:29 Chloride IV 0.03 units/min TITR JO ANN 9.09 mls/hr Administration Protocol 0.03 UNITS/MIN Insulin Human Regular 100 100 mls @ 1 mls/hr 04/10/22 01:00 04/11/22 10:09 units/ Sodium Chloride IV 3 units/hr TITR JO ANN 3 mls/hr Titration Protocol 1 UNITS/HR Dopamine HCl/Dextrose 800 mg in 250 mls @ 3.116 mls/hr 04/10/22 03:00 04/10 18:44 Dopamine 800 Mg/D5w 250ml IV 0 mcg/kg/min TITR JO ANN 0 mls/hr Titration Protocol 2 MCG/KG/MIN Sodium Bicarbonate 150 meq/ 1,150 mls @ 150 mls/hr 04/10/22 11:00 04/11/22 06:30 Dextrose IV 150 mls/hr DIRECT JO ANN Administration Vancomycin HCl 1 gm in 250 mls @ 167.007 mls/hr 04/11/22 12:00 Vancomycin/Ns 1 Gm/250 Ml IV 04/11/22 13:29 ONCE ONE Ceftriaxone Sodium 2 gm in 100 mls @ 200 mls/hr 04/11/22 12:00 Rocephin/Ns 2 Gm/100 Ml IV Q24H JO ANN Morphine Sulfate 2 mg 04/09/22 18:11 Morphine 2 Mg/1 Ml Inj IV Q4H PRN Pain, Moderate (4-6) Ondansetron HCl 4 mg 04/09/22 18:11 Ondansetron 4 Mg/2 Ml Inj IV Q8H PRN Nausea And Vomiting Sodium Chloride 10 ml 04/09/22 22:00 04/11/22 10:13 Sodium Chloride 0.9% 10 Ml Flush Syringe IV 10 ml BID JO ANN Administration Sodium Chloride 10 ml 04/09/22 18:11 Sodium Chloride 0.9% 10 Ml Flush Syringe IV PRN PRN LINE FLUSH
[2022-04-11] MEDS: cefTRIAXone/NS 2 GM/100 ML 2 GM/100 ML BAG IV SCH (12:00)
[2022-04-11] MEDS ORDERED: VANCOMYCIN/NS 1 GM/250 ML 1 GM/250 ML BAG IV ONE (12:00)
--- NOTE | 2022-04-11 12:28 | Progress Note ---
Assessment and Plan Assessment and plan: Assessment and Plan Assessment and plan: This is a 77-year-old female with DM and ovarian cancer in remission admitted for septic shock secondary to COVID-19 pneumonia, acute kidney injury, acute hypoxic respiratory failure and currently in multiorgan failure Covid 19 Infection Infectious disease consult Continue IV/PO Dexamethasone x 10 days pt id not a candidate for Remdesivir due to renal failure -S/p Actemra 04/10/2022 Continue prophylactic anticoagulation based on d-dimer per hospital protocol -procal elevated-continue empiric abx, Ceftriaxone and Vancomycin. -trend ferritin, d-dimer, CRP every 2-3 days Neuro: Acute metabolic encephalopathy, myoclonic jerks -intermitent jerking-unresponsive -Reorientation as needed when stable -aspiration/seizure precautions -Neurology consulted-EEG done-result pending -Initial CT head showed no acute abnormality Cardiac: Hypotension -Blood pressure monitoring per protocol -Vasopressor support with Levophed and vasopressin -MAP goal greater than 65 -Echocardiogram pending Respiratory: Acute hypoxic respiratory failure -CCM consulted, appreciate recommendations -Intubated in the emergency department 04/09 with 7.00 ETT at 22 [facility] Reviewed specialist note and reces- -A.m. ABG and CXR noted -VAP bundle -SPO2 monitoring GI: Transaminitis Monitor liver fu -PPI -NTR consult for tube feedings when appropriate -BR: Start when appropriate : Acute kidney injury likely secondary to ischemic acute tubular necrosis secondary to sepsis and hypotension, metabolic acidosis, hypophosphatemia, hypokalemia, hypomagnesemia, hyperchloremia, anion gap metabolic acidosis -Nephrology consulted, appreciate recommendations -Strict intake and output -Renally dose medications -Avoid nephrotoxic medications -Daily weights -Urine lites pending -Renal ultrasound pending -IV sodium bicarbonate drip and D5W -IV potassium, IV K-Phos, IV magnesium -Trend BMP, magnesium, phosphate ID: Septic shock secondary to COVID-19 pneumonia, lactic acidosis -Infectious disease consulted, appreciate recommendations -Admit CXR showed bilateral air space opacities -Antibiotic therapy with azithromycin, cefepime -Decadron 8 mg daily for 10 days -Per ID: Due to renal failure, not a candidate for remdesivir -If CRP greater than 7.5, candidate for Actemra -If procalcitonin low, antibiotics not needed -Actemra added -Contact/droplet precautions -f/u blood culture -Monitor WBC and temperature curve -Trend COVID-19 inflammatory markers Endo: DKA, h/o DM -Insulin drip and SSI and continue IV hydration -Monitor blood sugar and Avoid hypoglycemia -Accu-Cheks and BMP per protocol Heme: Leukocytosis Monitor CBC -Transfuse hemoglobin less than 7 -Lovenox subcu -Monitor for signs of bleeding -SCDs to BLE while in bed The high probability of a clinically significant, sudden or life threatening de terioration of the [multi] system(s) required my full and direct attention, intervention and personal management. The aggregate critical care time was [60] minutes. This time is in addition to time spent performing reported procedures but includes the following: [x] Data Review and interpretation [x] Patient assessment and monitoring of vital signs [x] Documentation [x] Medication orders and management Disposition Plan: icu Total Time Spent with Patient (Minutes): 60 04/11/22-patient seen at bedside. T/V orally intubated. No purposeful response on assessment. make periodic jerking movement. EEG done today-will f/u with result. BICarb d/c -acidosis has improved-started on D5 11/28 NS History Interval history: 04/11/22-patient seen at bedside. T/V orally intubated. No purposeful response on assessment. make periodic jerking movement. EEG done today-will f/u with result. Reviewed specialist note and reces-renal US-no acute finding. Continue Pressors for MAPs >65. Wean as tolerated. Bicarb-d/c and start D5W. Hospitalist Physical - Constitutional Vitals: Temp Pulse Resp BP Pulse Ox 99 F 103 H 20 96/58 100 04/11/22 12:00 04/11/22 12:00 04/11/22 12:00 04/11/22 12:00 04/11/22 12:00 General appearance: Present: no acute distress, severe distress, well-nourished, obese - EENT ENT: other (orally intubated) - Respiratory Respiratory: bilateral: diminished - Abdominal General gastrointestinal: soft - Integumentary Integumentary: Present: clear, warm - Psychiatric Psychiatric: other (not responsive-has periodic jerking movement. EEG done- waiting for result.) - Allied Health Allied health notes reviewed: nursing HEART Score - HEART Score Age: > 65 Risk factors: 1-2 risk factors Troponin: Troponin T < 0.010 ng/mL (0.00-0.029) 04/09/22 12:52 Troponin: < normal limit - Critical Actions Critical Actions: 4-6 pts:12-16.6% risk of adverse cardiac event. Should be admitted Results - Labs CBC & Chem 7: 04/11/22 03:58 04/11/22 03:58 Labs: Laboratory Last Values WBC 12.2 K/mm3 (4.5-11.0) H 04/11/22 03:58 RBC 4.12 M/mm3 (3.65-5.03) 04/11/22 03:58 Hgb 11.7 gm/dl (10.1-14.3) 04/11/22 03:58 Hct 36.0 % (30.3-42.9) 04/11/22 03:58 MCV 88 fl (79-97) 04/11/22 03:58 MCH 28 pg (28-32) 04/11/22 03:58 MCHC 32 % (30-34) 04/11/22 03:58 RDW 15.7 % (13.2-15.2) H 04/11/22 03:58 Plt Count 164 K/mm3 (140-440) 04/11/22 03:58 Lymph % (Auto) 8.4 % (13.4-35.0) L 04/09/22 12:52 [place] % (Auto) 6.5 % (0.0-7.3) 04/09/22 12:52 Eos % (Auto) 0.0 % (0.0-4.3) 04/09/22 12:52 Baso % (Auto) 0.5 % (0.0-1.8) 04/09/22 12:52 Lymph # (Auto) 0.7 K/mm3 (1.2-5.4) L 04/09/22 12:52 [place] # (Auto) 0.5 K/mm3 (0.0-0.8) 04/09/22 12:52 Eos # (Auto) 0.0 K/mm3 (0.0-0.4) 04/09/22 12:52 Baso # (Auto) 0.0 K/mm3 (0.0-0.1) 04/09/22 12:52 Add Manual Diff Complete 04/10/22 04:24 Total Counted 100 04/10/22 04:24 Seg Neutrophils % 84.6 % (40.0-70.0) H 04/09/22 12:52 Seg Neuts % (Manual) 94.0 % (40.0-70.0) H 04/10/22 04:24 Band Neutrophils % 0 % 04/10/22 04:24 Lymphocytes % (Manual) 3.0 % (13.4-35.0) L 04/10/22 04:24 Reactive Lymphs % (Man) 0 % 04/10/22 04:24 Monocytes % (Manual) 3.0 % (0.0-7.3) 04/10/22 04:24 Eosinophils % (Manual) 0 % (0.0-4.3) 04/10/22 04:24 Basophils % (Manual) 0 % (0.0-1.8) 04/10/22 04:24 Metamyelocytes % 0 % 04/10/22 04:24 Myelocytes % 0 % 04/10/22 04:24 Promyelocytes % 0 % 04/10/22 04:24 Blast Cells % 0 % 04/10/22 04:24 Nucleated RBC % Not Reportable 04/10/22 04:24 Seg Neutrophils # 7.0 K/mm3 (1.8-7.7) 04/09/22 12:52 Seg Neutrophils # Man 15.4 K/mm3 (1.8-7.7) H 04/10/22 04:24 Band Neutrophils # 0.0 K/mm3 04/10/22 04:24 Lymphocytes # (Manual) 0.5 K/mm3 (1.2-5.4) L 04/10/22 04:24 Abs React Lymphs (Man) 0.0 K/mm3 04/10/22 04:24 Monocytes # (Manual) 0.5 K/mm3 (0.0-0.8) 04/10/22 04:24 Eosinophils # (Manual) 0.0 K/mm3 (0.0-0.4) 04/10/22 04:24 Basophils # (Manual) 0.0 K/mm3 (0.0-0.1) 04/10/22 04:24 Metamyelocytes # 0.0 K/mm3 04/10/22 04:24 Myelocytes # 0.0 K/mm3 04/10/22 04:24 Promyelocytes # 0.0 K/mm3 04/10/22 04:24 Blast Cells # 0.0 K/mm3 04/10/22 04:24 WBC Morphology Not Reportable 04/10/22 04:24 Hypersegmented Neuts Not Reportable 04/10/22 04:24 Hyposegmented Neuts Not Reportable 04/10/22 04:24 Hypogranular Neuts Not Reportable 04/10/22 04:24 Smudge Cells Not Reportable 04/10/22 04:24 Toxic Granulation Not Reportable 04/10/22 04:24 Toxic Vacuolation Not Reportable 04/10/22 04:24 Dohle Bodies Not Reportable 04/10/22 04:24 Pelger-Huet Anomaly Not Reportable 04/10/22 04:24 Aleja Rods Not Reportable 04/10/22 04:24 Platelet Estimate Consistent w auto 04/10/22 04:24 Clumped Platelets Not Reportable 04/10/22 04:24 Plt Clumps, EDTA Not Reportable 04/10/22 04:24 Large Platelets Not Reportable 04/10/22 04:24 Giant Platelets Rare 04/10/22 04:24 Platelet Satelliting Not Reportable 04/10/22 04:24 Plt Morphology Comment Not Reportable 04/10/22 04:24 RBC Morphology Normal 04/10/22 04:24 Dimorphic RBCs Not Reportable 04/10/22 04:24 Polychromasia Not Reportable 04/10/22 04:24 Hypochromasia Not Reportable 04/10/22 04:24 Poikilocytosis Not Reportable 04/10/22 04:24 Anisocytosis Not Reportable 04/10/22 04:24 Microcytosis Not Reportable 04/10/22 04:24 Macrocytosis Not Reportable 04/10/22 04:24 Spherocytes Not Reportable 04/10/22 04:24 Pappenheimer Bodies Not Reportable 04/10/22 04:24 Sickle Cells Not Reportable 04/10/22 04:24 Target Cells Not Reportable 04/10/22 04:24 Tear Drop Cells Not Reportable 04/10/22 04:24 Ovalocytes Not Reportable 04/10/22 04:24 Helmet Cells Not Reportable 04/10/22 04:24 [place]o-[place]y Bodies Not Reportable 04/10/22 04:24 [place] Rings Not Reportable 04/10/22 04:24 Chani Cells Not Reportable 04/10/22 04:24 Bite Cells Not Reportable 04/10/22 04:24 Crenated Cell Not Reportable 04/10/22 04:24 Elliptocytes Not Reportable 04/10/22 04:24 Acanthocytes (Spur) Not Reportable 04/10/22 04:24 Rouleaux Not Reportable 04/10/22 04:24 Hemoglobin C Crystals Not Reportable 04/10/22 04:24 Schistocytes Not Reportable 04/10/22 04:24 Malaria parasites Not Reportable 04/10/22 04:24 Allan Bodies Not Reportable 04/10/22 04:24 Hem Pathologist Commnt No 04/10/22 04:24 PT 14.5 Sec. (12.2-14.9) 04/09/22 12:52 INR 1.02 (0.87-1.13) 04/09/22 12:52 ABG pH 7.427 pH Units (7.350-7.450) 04/11/22 01:30 ABG pCO2 26.7 mm Hg 04/11/22 01:30 ABG pO2 75.1 mm Hg (80.0-90.0) L 04/11/22 01:30 ABG HCO3 17.2 mmol/L (20.0-26.0) L 04/11/22 01:30 ABG O2 Saturation 96.7 % (95.0-99.0) 04/11/22 01:30 ABG O2 Content 15.5 (0.0-44) 04/11/22 01:30 ABG Base Excess -5.8 mmol/L (-2.0-3.0) L 04/11/22 01:30 ABG Hemoglobin 11.5 gm/dl (12.0-16.0) L 04/11/22 01:30 ABG Carboxyhemoglobin 0.9 % (0.0-5.0) 04/11/22 01:30 ABG Methemoglobin 0.6 % (0.0-1.5) 04/11/22 01:30 VBG pH 7.303 (7.320-7.420) L 04/09/22 12:52 Oxyhemoglobin 95.3 % (95.0-99.0) 04/11/22 01:30 FiO2 45 % 04/11/22 01:30 Sodium 147 mmol/L (137-145) H 04/11/22 03:58 Potassium 3.9 mmol/L (3.6-5.0) 04/11/22 03:58 Chloride 114.2 mmol/L (98-107) H 04/11/22 03:58 Carbon Dioxide 19 mmol/L (22-30) L 04/11/22 03:58 Anion Gap 18 mmol/L 04/11/22 03:58 BUN 26 mg/dL (7-17) H 04/11/22 03:58 Creatinine 2.5 mg/dL (0.6-1.2) H 04/11/22 03:58 Estimated GFR 23 ml/min 04/11/22 03:58 BUN/Creatinine Ratio 10 % 04/11/22 03:58 Glucose 154 mg/dL (65-100) H 04/11/22 03:58 POC Glucose 143 mg/dL (70-105) H 04/11/22 08:23 Lactic Acid 6.10 mmol/L (0.7-2.0) H* 04/09/22 Unknown Calcium 6.8 mg/dL (8.4-10.2) L 04/11/22 03:58 Phosphorus 3.10 mg/dL (2.5-4.5) D 04/11/22 03:58 Magnesium 2.00 mg/dL (1.7-2.3) 04/11/22 03:58 Ferritin 1218.0 ng/mL (10.0-200.0) H 04/10/22 11:47 Total Bilirubin 0.60 mg/dL (0.1-1.2) 04/11/22 03:58 AST 106 units/L (5-40) H 04/11/22 03:58 ALT 60 units/L (7-56) H 04/11/22 03:58 Alkaline Phosphatase 54 units/L (35-129) 04/11/22 03:58 Ammonia 20.0 umol/L (25-60) L 04/09/22 12:52 Lactate Dehydrogenase 482 units/L (91-180) H 04/10/22 11:47 Troponin T < 0.010 ng/mL (0.00-0.029) 04/09/22 12:52 C-Reactive Protein 11.30 mg/dL (0.00-1.30) H 04/10/22 11:47 NT-Pro-B Natriuret Pep 101.1 pg/mL (0-900) 04/09/22 13:45 Total Protein 5.6 g/dL (6.3-8.2) L 04/11/22 03:58 Albumin 2.7 g/dL (3.9-5) L 04/11/22 03:58 Albumin/Globulin Ratio 0.9 % 04/11/22 03:58 Procalcitonin 3.13 ng/mL (<0.15) 04/10/22 11:47 TSH 1.560 mlU/mL (0.270-4.200) 04/09/22 12:52 Free T4 1.33 ng/dL (0.76-1.46) 04/09/22 12:52 Urine Color Yellow (Yellow) 04/09/22 13:24 Urine Turbidity Clear (Clear) 04/09/22 13:24 Urine pH 5.0 (5.0-7.0) 04/09/22 13:24 Ur Specific [place] 1.011 (1.003-1.030) 04/09/22 13:24 Urine Protein 30 mg/dl mg/dL (Negative) 04/09/22 13:24 Urine Glucose (UA) Neg mg/dL (Negative) 04/09/22 13:24 Urine Ketones 20 mg/dL (Negative) 04/09/22 13:24 Urine Blood Neg (Negative) 04/09/22 13:24 Urine Nitrite Neg (Negative) 04/09/22 13:24 Urine Bilirubin Neg (Negative) 04/09/22 13:24 Urine Urobilinogen 4.0 mg/dL (<2.0) 04/09/22 13:24 Ur Leukocyte Esterase Neg (Negative) 04/09/22 13:24 Urine WBC (Auto) 2.0 /HPF (0.0-6.0) 04/09/22 13:24 Urine RBC (Auto) < 1.0 /HPF (0.0-6.0) 04/09/22 13:24 U Epithel Cells (Auto) < 1.0 /HPF (0-13.0) 04/09/22 13:24 Urine Mucus Few /HPF 04/09/22 13:24 Urine Eosinophils None seen (None Seen) 04/10/22 14:50 Urine Creatinine 224.2 mg/dL (0.1-20.0) H 04/10/22 14:50 Protein/Creatinin Ratio 0.77 04/10/22 14:50 Urine Sodium 17 mmol/L 04/10/22 14:50 Urine Total Protein 172 mg/dL (5-11.8) H 04/10/22 14:50 Random Vancomycin 11.9 ug/mL (0-40.0) 04/11/22 03:58 Urine Opiates Screen Presumptive negative 04/09/22 22:58 Urine Methadone Screen Presumptive negative 04/09/22 22:58 Ur Barbiturates Screen Presumptive negative 04/09/22 22:58 Ur Phencyclidine Scrn Presumptive negative 04/09/22 22:58 Ur Amphetamines Screen Presumptive negative 04/09/22 22:58 U Benzodiazepines Scrn Presumptive negative 04/09/22 22:58 Urine Cocaine Screen Presumptive negative 04/09/22 22:58 U Marijuana (THC) Screen Presumptive negative 04/09/22 22:58 Drugs of Abuse Note Disclamer 04/09/22 22:58 Coronavirus (PCR) Positive (Negative) A 04/09/22 13:02 Influenza A (RT-PCR) Negative (Negative) 04/09/22 14:15 Influenza B (RT-PCR) Negative (Negative) 04/09/22 14:15 Microbiology: Microbiology 04/09/22 12:52 Peripheral/Venous Blood Culture - Preliminary NO GROWTH AFTER 24 HOURS 04/09/22 12:52 Peripheral/Venous Blood Culture - Preliminary NO GROWTH AFTER 24 HOURS [place]/IV: Voiding Method Indwelling Catheter Active Medications - Current Medications Current Medications: Generic Name Dose Route Start Last Admin Trade Name Freq PRN Reason Stop Dose Admin Acetaminophen 650 mg 04/09/22 18:11 Acetaminophen 325 Mg Tab PO Q4H PRN Pain MILD(1-3)/Fever >100.5/CARCAMO Dexamethasone 8 mg 04/09/22 19:00 04/10/22 20:45 Dexamethasone 4 Mg/Ml Vial IV 04/18/22 19:01 8 mg Q24H JOA NN Administration Dextrose 0 ml 04/10/22 00:40 Dextrose 50% In Water (25gm) 50 Ml Syringe IV Q30MIN PRN Hypoglycemia Protocol Enoxaparin Sodium 30 mg 04/10/22 10:00 04/11/22 10:13 Enoxaparin 30 Mg/0.3 Ml Inj SUB-Q 30 mg QDAY JO ANN Administration Famotidine 10 mg 04/09/22 22:00 04/11/22 10:13 Famotidine 20 Mg/2 Ml Inj IV 10 mg BID JO ANN Administration NORepinephrine/NS 8 MG-250 ML 8 mg in 250 mls @ 3.75 mls/hr 04/09/22 16:00 04/11/22 12:01 Norepinephrine/Ns 8 Mg-250 Ml (Double Conc) IV 0 mcg/min TITRATE JO ANN 0 mls/hr Titration Protocol 2 MCG/MIN Vasopressin 20 unit/ Sodium 101 mls @ 9.09 mls/hr 04/09/22 18:00 04/11/22 03:29 Chloride IV 0.03 units/min TITR JO ANN 9.09 mls/hr Administration Protocol 0.03 UNITS/MIN Insulin Human Regular 100 100 mls @ 1 mls/hr 04/10/22 01:00 04/11/22 11:59 units/ Sodium Chloride IV 3 units/hr TITR JO ANN 3 mls/hr Titration Protocol 1 UNITS/HR Dopamine HCl/Dextrose 800 mg in 250 mls @ 3.116 mls/hr 04/10/22 03:00 04/10/22 18:44 Dopamine 800 Mg/D5w 250ml IV 0 mcg/kg/min TITR JO ANN 0 mls/hr Titration Protocol 2 MCG/KG/MIN Sodium Bicarbonate 150 meq/ 1,150 mls @ 150 mls/hr 04/10/22 11:00 04/11/22 06:30 Dextrose IV 150 mls/hr DIRECT JO ANN Administration Vancomycin HCl 1 gm in 250 mls @ 167.007 mls/hr 04/11/22 12:00 Vancomycin/Ns 1 Gm/250 Ml IV 04/11/22 13:29 ONCE ONE Ceftriaxone Sodium 2 gm in 100 mls @ 200 mls/hr 04/11/22 12:00 04/11/22 12:00 Rocephin/Ns 2 Gm/100 Ml IV 200 mls/hr Q24H JO ANN Administration Morphine Sulfate 2 mg 04/09/22 18:11 Morphine 2 Mg/1 Ml Inj IV Q4H PRN Pain, Moderate (4-6) Ondansetron HCl 4 mg 04/09/22 18:11 Ondansetron 4 Mg/2 Ml Inj IV Q8H PRN Nausea And Vomiting Sodium Chloride 10 ml 04/09/22 22:00 04/11/22 10:13 Sodium Chloride 0.9% 10 Ml Flush Syringe IV 10 ml BID JO ANN Administration Sodium Chloride 10 ml 04/09/22 18:11 Sodium Chloride 0.9% 10 Ml Flush Syringe IV PRN PRN LINE FLUSH
[2022-04-11] MEDS: INSULIN REGULAR, HUMAN 100 UNITS in SODIUM CHLORIDE 0.9% 99 ML IV SCH (14:28)
[2022-04-11] MEDS ORDERED: D5W/0.9% NACL 1,000 ML IV SCH (15:00)
[2022-04-11] MEDS: D5W/0.45% NACL 1,000 ML IV SCH (18:30)
--- NOTE | 2022-04-11 19:00 | Consultation ---
History of Present Illness Consult date: 04/11/22 Reason for Consult: AMS Chief complaint: AMS History of present illness: 77 yo female with ovarian cancer, dm, who presents with multiorgan failure with acute encephalopathy with noted myoclonic jerks, in the setting of covid-19 infection and acute respiratory failure. Past History Past Medical History: diabetes, other (Ovarian cancer) Past Surgical History: Other (unknown) Social history: no significant social history Family history: no significant family history Medications and Allergies Allergies Allergy/AdvReac Type Severity Reaction Status Date / Time No Known Allergies Allergy Verified 04/09/22 13:44 Active Meds: Active Medications Acetaminophen (Acetaminophen 325 Mg Tab) 650 mg PO Q4H PRN PRN Reason: Pain MILD(1-3)/Fever >100.5/CARCAMO Dexamethasone (Dexamethasone 4 Mg/Ml Vial) 8 mg IV Q24H JO ANN Stop: 04/18/22 19:01 Last Admin: 04/10/22 20:45 Dose: 8 mg Dextrose (Dextrose 50% In Water (25gm) 50 Ml Syringe) 0 ml IV Q30MIN PRN; Protocol PRN Reason: Hypoglycemia Enoxaparin Sodium (Enoxaparin 30 Mg/0.3 Ml Inj) 30 mg SUB-Q QDAY JO ANN Last Admin: 04/11/22 10:13 Dose: 30 mg Famotidine (Famotidine 20 Mg/2 Ml Inj) 10 mg IV BID JO ANN Last Admin: 04/11/22 10:13 Dose: 10 mg NORepinephrine/NS 8 MG-250 ML (Norepinephrine/Ns 8 Mg-250 Ml (Double Conc)) 8 mg in 250 mls @ 3.75 mls/hr IV TITRATE JO ANN; Protocol Last Titration: 04/11/22 12:01 Dose: 0 mcg/min, 0 mls/hr Vasopressin 20 unit/ Sodium (Chloride) 101 mls @ 9.09 mls/hr IV TITR JO ANN; Protocol Last Admin: 04/11/22 14:26 Dose: 0.03 units/min, 9.09 mls/hr Insulin Human Regular 100 (units/ Sodium Chloride) 100 mls @ 1 mls/hr IV TITR JO ANN; Protocol Last Titration: 04/11/22 17:46 Dose: 3 units/hr, 3 mls/hr Dopamine HCl/Dextrose (Dopamine 800 Mg/D5w 250ml) 800 mg in 250 mls @ 3.116 mls/hr IV TITR JO ANN; Protocol Last Titration: 04/10/22 18:44 Dose: 0 mcg/kg/min, 0 mls/hr Sodium Bicarbonate 150 meq/ (Dextrose) 1,150 mls @ 150 mls/hr IV DIRECT JO ANN Last Infusion: 04/11/22 18:30 Dose: Infused Ceftriaxone Sodium (Rocephin/Ns 2 Gm/100 Ml) 2 gm in 100 mls @ 200 mls/hr IV Q24H JO ANN Last Admin: 04/11/22 12:00 Dose: 200 mls/hr Dextrose/Sodium Chloride (D5/0.45ns) 1,000 mls @ 100 mls/hr IV DIRECT JO ANN Morphine Sulfate (Morphine 2 Mg/1 Ml Inj) 2 mg IV Q4H PRN PRN Reason: Pain, Moderate (4-6) Ondansetron HCl (Ondansetron 4 Mg/2 Ml Inj) 4 mg IV Q8H PRN PRN Reason: Nausea And Vomiting Sodium Chloride (Sodium Chloride 0.9% 10 Ml Flush Syringe) 10 ml IV BID JO ANN Last Admin: 04/11/22 10:13 Dose: 10 ml Sodium Chloride (Sodium Chloride 0.9% 10 Ml Flush Syringe) 10 ml IV PRN PRN PRN Reason: LINE FLUSH Review of Systems ROS unobtainable: due to mental status Physical Examination - Vital Signs Vital Signs: Vital Signs Pulse BP Pulse Ox 67 90/40 90 04/09/22 11:32 04/09/22 11:32 04/09/22 11:32 - Physical Exam Narrative exam: Patient not seen due to teleneurology protocol for covid19 cases. Results - Laboratory Findings CBC and BMP: 04/11/22 03:58 04/11/22 03:58 Abnormal Lab Findings: Abnormal Labs 04/09/22 04/09/22 04/09/22 11:59 12:52 12:52 WBC RDW 15.3 H Lymph % (Auto) 8.4 L Lymph # (Auto) 0.7 L Seg Neutrophils % 84.6 H Seg Neuts % (Manual) Lymphocytes % (Manual) Seg Neutrophils # Man Lymphocytes # (Manual) ABG pH ABG pO2 ABG HCO3 ABG O2 Saturation ABG Base Excess ABG Hemoglobin VBG pH Sodium Potassium Chloride 112.7 H Carbon Dioxide 18 L BUN Creatinine 2.0 H Glucose 204 H POC Glucose 203 H Lactic Acid Calcium Phosphorus Magnesium Ferritin Total Bilirubin 1.30 H AST 47 H ALT Ammonia Lactate Dehydrogenase C-Reactive Protein Total Protein Albumin Urine Creatinine Urine Total Protein Coronavirus (PCR) 04/09/22 04/09/22 04/09/22 12:52 12:52 13:02 WBC RDW Lymph % (Auto) Lymph # (Auto) Seg Neutrophils % Seg Neuts % (Manual) Lymphocytes % (Manual) Seg Neutrophils # Man Lymphocytes # (Manual) ABG pH ABG pO2 ABG HCO3 ABG O2 Saturation ABG Base Excess ABG Hemoglobin VBG pH 7.303 L Sodium Potassium Chloride Carbon Dioxide BUN Creatinine Glucose POC Glucose Lactic Acid Calcium Phosphorus Magnesium Ferritin Total Bilirubin AST ALT Ammonia 20.0 L Lactate Dehydrogenase C-Reactive Protein Total Protein Albumin Urine Creatinine Urine Total Protein Coronavirus (PCR) Positive A 04/09/22 04/09/22 04/09/22 15:49 22:15 22:58 WBC RDW Lymph % (Auto) Lymph # (Auto) Seg Neutrophils % Seg Neuts % (Manual) Lymphocytes % (Manual) Seg Neutrophils # Man Lymphocytes # (Manual) ABG pH 7.097 L* ABG pO2 188.8 H ABG HCO3 7.4 L ABG O2 Saturation 99.1 H ABG Base Excess -20.7 L ABG Hemoglobin VBG pH Sodium Potassium Chloride 108.8 H Carbon Dioxide 10 L D BUN 20 H Creatinine 2.6 H Glucose 465 H POC Glucose Lactic Acid 2.70 H* Calcium 7.4 L Phosphorus Magnesium Ferritin Total Bilirubin AST ALT Ammonia Lactate Dehydrogenase C-Reactive Protein Total Protein Albumin Urine Creatinine Urine Total Protein Coronavirus (PCR) 04/09/22 04/09/22 04/10/22 23:19 Unknown 00:03 WBC RDW Lymph % (Auto) Lymph # (Auto) Seg Neutrophils % Seg Neuts % (Manual) Lymphocytes % (Manual) Seg Neutrophils # Man Lymphocytes # (Manual) ABG pH ABG pO2 ABG HCO3 ABG O2 Saturation ABG Base Excess ABG Hemoglobin VBG pH Sodium Potassium Chloride Carbon Dioxide BUN Creatinine Glucose POC Glucose 356 H Lactic Acid 7.50 H* 6.10 H* Calcium Phosphorus Magnesium Ferritin Total Bilirubin AST ALT Ammonia Lactate Dehydrogenase C-Reactive Protein Total Protein Albumin Urine Creatinine Urine Total Protein Coronavirus (PCR) 04/10/22 04/10/22 04/10/22 02:16 03:03 04:00 WBC RDW Lymph % (Auto) Lymph # (Auto) Seg Neutrophils % Seg Neuts % (Manual) Lymphocytes % (Manual) Seg Neutrophils # Man Lymphocytes # (Manual) ABG pH ABG pO2 ABG HCO3 ABG O2 Saturation ABG Base Excess ABG Hemoglobin VBG pH Sodium Potassium Chloride Carbon Dioxide BUN Creatinine Glucose POC Glucose 317 H 325 H 308 H Lactic Acid Calcium Phosphorus Magnesium Ferritin Total Bilirubin AST ALT Ammonia Lactate Dehydrogenase C-Reactive Protein Total Protein Albumin Urine Creatinine Urine Total Protein Coronavirus (PCR) 04/10/22 04/10/22 04/10/22 04:24 04:24 04:24 WBC 16.4 H RDW 16.2 H Lymph % (Auto) Lymph # (Auto) Seg Neutrophils % Seg Neuts % (Manual) 94.0 H Lymphocytes % (Manual) 3.0 L Seg Neutrophils # Man 15.4 H Lymphocytes # (Manual) 0.5 L ABG pH ABG pO2 ABG HCO3 ABG O2 Saturation ABG Base Excess ABG Hemoglobin VBG pH Sodium Potassium 2.9 L* D Chloride 116.1 H Carbon Dioxide 11 L BUN 19 H Creatinine 2.5 H Glucose 376 H POC Glucose Lactic Acid Calcium 6.5 L Phosphorus 1.40 L Magnesium 1.60 L Ferritin Total Bilirubin AST 107 H ALT 64 H Ammonia Lactate Dehydrogenase C-Reactive Protein Total Protein 5.5 L Albumin 2.8 L Urine Creatinine Urine Total Protein Coronavirus (PCR) 04/10/22 04/10/22 04/10/22 04:25 05:17 06:00 WBC RDW Lymph % (Auto) Lymph # (Auto) Seg Neutrophils % Seg Neuts % (Manual) Lymphocytes % (Manual) Seg Neutrophils # Man Lymphocytes # (Manual) ABG pH 7.095 L* ABG pO2 112.3 H ABG HCO3 8.7 L ABG O2 Saturation ABG Base Excess -19.7 L ABG Hemoglobin VBG pH Sodium Potassium Chloride Carbon Dioxide BUN Creatinine Glucose POC Glucose 343 H 278 H Lactic Acid Calcium Phosphorus Magnesium Ferritin Total Bilirubin AST ALT Ammonia Lactate Dehydrogenase C-Reactive Protein Total Protein Albumin Urine Creatinine Urine Total Protein Coronavirus (PCR) 04/10/22 04/10/22 04/10/22 06:53 07:54 08:58 WBC RDW Lymph % (Auto) Lymph # (Auto) Seg Neutrophils % Seg Neuts % (Manual) Lymphocytes % (Manual) Seg Neutrophils # Man Lymphocytes # (Manual) ABG pH ABG pO2 ABG HCO3 ABG O2 Saturation ABG Base Excess ABG Hemoglobin VBG pH Sodium Potassium Chloride Carbon Dioxide BUN Creatinine Glucose POC Glucose 262 H 245 H 215 H Lactic Acid Calcium Phosphorus Magnesium Ferritin Total Bilirubin AST ALT Ammonia Lactate Dehydrogenase C-Reactive Protein Total Protein Albumin Urine Creatinine Urine Total Protein Coronavirus (PCR) 04/10/22 04/10/22 04/10/22 10:12 10:51 11:47 WBC RDW Lymph % (Auto) Lymph # (Auto) Seg Neutrophils % Seg Neuts % (Manual) Lymphocytes % (Manual) Seg Neutrophils # Man Lymphocytes # (Manual) ABG pH ABG pO2 ABG HCO3 ABG O2 Saturation ABG Base Excess ABG Hemoglobin VBG pH Sodium 148 H Potassium 3.4 L Chloride 116.7 H Carbon Dioxide 15 L BUN 22 H Creatinine 2.7 H Glucose 190 H POC Glucose 206 H 176 H Lactic Acid Calcium 6.9 L Phosphorus Magnesium Ferritin Total Bilirubin AST ALT Ammonia Lactate Dehydrogenase C-Reactive Protein Total Protein Albumin Urine Creatinine Urine Total Protein Coronavirus (PCR) 04/10/22 04/10/22 04/10/22 11:47 11:47 12:02 WBC RDW Lymph % (Auto) Lymph # (Auto) Seg Neutrophils % Seg Neuts % (Manual) Lymphocytes % (Manual) Seg Neutrophils # Man Lymphocytes # (Manual) ABG pH ABG pO2 ABG HCO3 ABG O2 Saturation ABG Base Excess ABG Hemoglobin VBG pH Sodium Potassium Chloride Carbon Dioxide BUN Creatinine Glucose POC Glucose 178 H Lactic Acid Calcium Phosphorus Magnesium Ferritin 1218.0 H Total Bilirubin AST ALT Ammonia Lactate Dehydrogenase 482 H C-Reactive Protein 11.30 H Total Protein Albumin Urine Creatinine Urine Total Protein Coronavirus (PCR) 04/10/22 04/10/22 04/10/22 13:13 13:58 14:50 WBC RDW Lymph % (Auto) Lymph # (Auto) Seg Neutrophils % Seg Neuts % (Manual) Lymphocytes % (Manual) Seg Neutrophils # Man Lymphocytes # (Manual) ABG pH ABG pO2 ABG HCO3 ABG O2 Saturation ABG Base Excess ABG Hemoglobin VBG pH Sodium Potassium Chloride Carbon Dioxide BUN Creatinine Glucose POC Glucose 160 H 150 H Lactic Acid Calcium Phosphorus Magnesium Ferritin Total Bilirubin AST ALT Ammonia Lactate Dehydrogenase C-Reactive Protein Total Protein Albumin Urine Creatinine 224.2 H Urine Total Protein 172 H Coronavirus (PCR) 04/10/22 04/10/22 04/10/22 15:24 16:38 16:56 WBC RDW Lymph % (Auto) Lymph # (Auto) Seg Neutrophils % Seg Neuts % (Manual) Lymphocytes % (Manual) Seg Neutrophils # Man Lymphocytes # (Manual) ABG pH ABG pO2 ABG HCO3 ABG O2 Saturation ABG Base Excess ABG Hemoglobin VBG pH Sodium Potassium Chloride Carbon Dioxide BUN Creatinine Glucose POC Glucose 140 H 154 H 149 H Lactic Acid Calcium Phosphorus Magnesium Ferritin Total Bilirubin AST ALT Ammonia Lactate Dehydrogenase C-Reactive Protein Total Protein Albumin Urine Creatinine Urine Total Protein Coronavirus (PCR) 04/10/22 04/10/22 04/10/22 18:21 19:21 20:02 WBC RDW Lymph % (Auto) Lymph # (Auto) Seg Neutrophils % Seg Neuts % (Manual) Lymphocytes % (Manual) Seg Neutrophils # Man Lymphocytes # (Manual) ABG pH ABG pO2 ABG HCO3 ABG O2 Saturation ABG Base Excess ABG Hemoglobin VBG pH Sodium Potassium Chloride Carbon Dioxide BUN Creatinine Glucose POC Glucose 141 H 126 H 139 H Lactic Acid Calcium Phosphorus Magnesium Ferritin Total Bilirubin AST ALT Ammonia Lactate Dehydrogenase C-Reactive Protein Total Protein Albumin Urine Creatinine Urine Total Protein Coronavirus (PCR) 04/10/22 04/10/22 04/10/22 21:04 21:58 22:20 WBC RDW Lymph % (Auto) Lymph # (Auto) Seg Neutrophils % Seg Neuts % (Manual) Lymphocytes % (Manual) Seg Neutrophils # Man Lymphocytes # (Manual) ABG pH ABG pO2 ABG HCO3 ABG O2 Saturation ABG Base Excess ABG Hemoglobin VBG pH Sodium Potassium Chloride 114.5 H Carbon Dioxide 17 L BUN 24 H Creatinine 2.5 H Glucose 165 H POC Glucose 144 H 161 H Lactic Acid Calcium 6.5 L Phosphorus Magnesium Ferritin Total Bilirubin AST ALT Ammonia Lactate Dehydrogenase C-Reactive Protein Total Protein Albumin Urine Creatinine Urine Total Protein Coronavirus (PCR) 04/10/22 04/11/22 04/11/22 23:02 00:08 01:05 WBC RDW Lymph % (Auto) Lymph # (Auto) Seg Neutrophils % Seg Neuts % (Manual) Lymphocytes % (Manual) Seg Neutrophils # Man Lymphocytes # (Manual) ABG pH ABG pO2 ABG HCO3 ABG O2 Saturation ABG Base Excess ABG Hemoglobin VBG pH Sodium Potassium Chloride Carbon Dioxide BUN Creatinine Glucose POC Glucose 160 H 148 H 156 H Lactic Acid Calcium Phosphorus Magnesium Ferritin Total Bilirubin AST ALT Ammonia Lactate Dehydrogenase C-Reactive Protein Total Protein Albumin Urine Creatinine Urine Total Protein Coronavirus (PCR) 04/11/22 04/11/22 04/11/22 01:30 02:05 03:04 WBC RDW Lymph % (Auto) Lymph # (Auto) Seg Neutrophils % Seg Neuts % (Manual) Lymphocytes % (Manual) Seg Neutrophils # Man Lymphocytes # (Manual) ABG pH ABG pO2 75.1 L ABG HCO3 17.2 L ABG O2 Saturation ABG Base Excess -5.8 L ABG Hemoglobin 11.5 L VBG pH Sodium Potassium Chloride Carbon Dioxide BUN Creatinine Glucose POC Glucose 150 H 168 H Lactic Acid Calcium Phosphorus Magnesium Ferritin Total Bilirubin AST ALT Ammonia Lactate Dehydrogenase C-Reactive Protein Total Protein Albumin Urine Creatinine Urine Total Protein Coronavirus (PCR) 04/11/22 04/11/22 04/11/22 03:58 03:58 04:05 WBC 12.2 H RDW 15.7 H Lymph % (Auto) Lymph # (Auto) Seg Neutrophils % Seg Neuts % (Manual) Lymphocytes % (Manual) Seg Neutrophils # Man Lymphocytes # (Manual) ABG pH ABG pO2 ABG HCO3 ABG O2 Saturation ABG Base Excess ABG Hemoglobin VBG pH Sodium 147 H Potassium Chloride 114.2 H Carbon Dioxide 19 L BUN 26 H Creatinine 2.5 H Glucose 154 H POC Glucose 151 H Lactic Acid Calcium 6.8 L Phosphorus Magnesium Ferritin Total Bilirubin AST 106 H ALT 60 H Ammonia Lactate Dehydrogenase C-Reactive Protein Total Protein 5.6 L Albumin 2.7 L Urine Creatinine Urine Total Protein Coronavirus (PCR) 04/11/22 04/11/22 04/11/22 05:14 06:19 08:23 WBC RDW Lymph % (Auto) Lymph # (Auto) Seg Neutrophils % Seg Neuts % (Manual) Lymphocytes % (Manual) Seg Neutrophils # Man Lymphocytes # (Manual) ABG pH ABG pO2 ABG HCO3 ABG O2 Saturation ABG Base Excess ABG Hemoglobin VBG pH Sodium Potassium Chloride Carbon Dioxide BUN Creatinine Glucose POC Glucose 134 H 144 H 143 H Lactic Acid Calcium Phosphorus Magnesium Ferritin Total Bilirubin AST ALT Ammonia Lactate Dehydrogenase C-Reactive Protein Total Protein Albumin Urine Creatinine Urine Total Protein Coronavirus (PCR) 04/11/22 04/11/22 10:06 15:59 WBC RDW Lymph % (Auto) Lymph # (Auto) Seg Neutrophils % Seg Neuts % (Manual) Lymphocytes % (Manual) Seg Neutrophils # Man Lymphocytes # (Manual) ABG pH ABG pO2 ABG HCO3 ABG O2 Saturation ABG Base Excess ABG Hemoglobin VBG pH Sodium Potassium Chloride Carbon Dioxide BUN Creatinine Glucose POC Glucose 138 H 166 H Lactic Acid Calcium Phosphorus Magnesium Ferritin Total Bilirubin AST ALT Ammonia Lactate Dehydrogenase C-Reactive Protein Total Protein Albumin Urine Creatinine Urine Total Protein Coronavirus (PCR) Assessment and Plan 77 yo female with ovarian cancer, dm, who presents with multiorgan failure with acute encephalopathy with noted myoclonic jerks, in the setting of covid-19 infection and acute respiratory failure. 1. Acute Metabolic Encephalopathy w/ Myoclonus - in the setting of underlying infection and ultiorgan failure. 2. Myoclonic Seizure(s) - awaiting EEG report; communicated with [facility] on 04/10/22 regarding emergent transfer for long-term video monitoring for the patient as intermittent subclinical seizure activity may be missed with a 20-min ("routine" or standard) EEG and LTM is not available at this facility. 3. Hypoxic Encephalopathy - recommend mri brain wo contrast to confirm. 4. DM - maintain euglycemia. 5. COVID-19 - risk of associated adem/ischemic stroke or venous sinus thrombosis; recommend mri brain w wo contrast and/or mrv head wo contrast when clinically stable. Leo Hutchins MD Neurology [id number]
[2022-04-11] MEDS: dexAMETHasone 4 MG/ML VIAL IV SCH ×2 (19:35→20:05)
[2022-04-12] MEDS: VASOPRESSIN 20 UNIT in SODIUM CHLORIDE 0.9% 100 ML IV SCH (02:00)
[2022-04-12 03:47] LABS: ABG Base Excess 0.1 mmol/L (-2.0-3.0); ABG HCO3 22.2 mmol/L (20.0-26.0); ABG Methemoglobin 0.6 % (0.0-1.5); ABG Oxygen Saturation 94.2 % (95.0-99.0); ABG PCO2 28.3 mm Hg; ABG PH 7.513 pH Units (7.350-7.450); ABG PO2 61.7 mm Hg (80.0-90.0)
[2022-04-12] MEDS: D5W/0.45% NACL 1,000 ML IV SCH (04:30)
[2022-04-12 04:58] LABS: Basophils % (Auto) 0.2 % (0.0-1.8); Hematocrit 34.7 % (30.3-42.9); Hemoglobin 11.5 gm/dl (10.1-14.3); Lymphocytes # (Auto) 0.9 K/mm3 (1.2-5.4); Lymphocytes % (Auto) 5.7 % (13.4-35.0); Mean Corpuscular HGB Conc 33 % (30-34); Mean Corpuscular Volume 85 fl (79-97); Monocytes # (Auto) 0.7 K/mm3 (0.0-0.8); Monocytes % (Auto) 4.5 % (0.0-7.3); Platelet Count 204 K/mm3 (140-440); Red Blood Count 4.08 M/mm3 (3.65-5.03); Red Cell Distribution Width 15.8 % (13.2-15.2)
[2022-04-12 05:25] LABS: Calcium 6.7 mg/dL (8.4-10.2)
[2022-04-12 06:36] LABS: C-Reactive Protein 14.1 mg/dL (0.00-1.30)
--- NOTE | 2022-04-12 09:27 | Progress Note ---
Assessment and Plan COVID positive Sepsis Hypotension Diabetes Mellitus/DKA Acute Respiratory Failure Hypokalemia Metabolic Acidosis Hypophosphatemia Plan: Cr is trending, BUN is rising likely 2/2 systemic steroids will check 24 hours Cr clearance-pending Baseline serum creatinine unknown renal US -ve for obstruction COVID positive-as per ID Renally dose medications Obtain daily weights Monitor I/O's daily Will monitor renal function closely Subjective Date of service: 04/12/22 Principal diagnosis: ASHLEY Interval history: remains intubated in the ICU Objective - Vital Signs Vital signs: Vital Signs - 12hr 04/11/22 04/11/22 04/11/22 21:30 21:45 22:00 Temperature Pulse Rate 81 85 80 Pulse Rate [ From Monitor] Pulse Rate [ None] Respiratory 26 H 30 H 27 H Rate Blood Pressure 101/63 107/63 99/60 O2 Sat by Pulse 91 92 91 Oximetry 04/11/22 04/11/22 04/11/22 22:15 22:30 22:45 Temperature Pulse Rate 85 81 81 Pulse Rate [ From Monitor] Pulse Rate [ None] Respiratory 34 H 29 H 30 H Rate Blood Pressure 100/62 96/61 95/60 O2 Sat by Pulse 90 90 92 Oximetry 04/11/22 04/11/22 04/11/22 23:00 23:15 23:17 Temperature Pulse Rate 84 82 82 Pulse Rate [ From Monitor] Pulse Rate [ None] Respiratory 34 H 8 L 32 H Rate Blood Pressure 99/60 103/61 103/61 O2 Sat by Pulse 91 94 90 Oximetry 04/11/22 04/11/22 04/12/22 23:30 23:45 00:00 Temperature 98.8 F Pulse Rate 81 79 79 Pulse Rate [ 79 From Monitor] Pulse Rate [ None] Respiratory 27 H 26 H 25 H Rate Blood Pressure 110/65 108/62 101/55 O2 Sat by Pulse 92 94 92 Oximetry 04/12/22 04/12/22 04/12/22 00:15 00:30 00:45 Temperature Pulse Rate 77 77 79 Pulse Rate [ From Monitor] Pulse Rate [ None] Respiratory 25 H 27 H 31 H Rate Blood Pressure 106/56 99/58 107/58 O2 Sat by Pulse 92 93 92 Oximetry 04/12/22 04/12/22 04/12/22 01:00 01:15 01:30 Temperature Pulse Rate 79 77 78 Pulse Rate [ From Monitor] Pulse Rate [ None] Respiratory 28 H 26 H 27 H Rate Blood Pressure 111/59 110/58 107/60 O2 Sat by Pulse 91 92 92 Oximetry 04/12/22 04/12/22 04/12/22 01:45 02:00 02:15 Temperature Pulse Rate 78 Pulse Rate [ From Monitor] Pulse Rate [ 77 79 None] Respiratory 32 H 27 H 26 H Rate Blood Pressure 112/59 110/61 116/61 O2 Sat by Pulse 93 92 91 Oximetry 04/12/22 04/12/22 04/12/22 02:30 02:45 03:00 Temperature Pulse Rate Pulse Rate [ From Monitor] Pulse Rate [ 79 79 80 None] Respiratory 26 H 25 H 25 H Rate Blood Pressure 111/62 107/60 O2 Sat by Pulse 93 91 92 Oximetry 04/12/22 04/12/22 04/12/22 03:20 03:45 04:00 Temperature 98.4 F Pulse Rate 82 83 Pulse Rate [ 83 From Monitor] Pulse Rate [ 83 83 None] Respiratory 6 L 24 24 Rate Blood Pressure 109/58 109/56 108/59 O2 Sat by Pulse 95 92 92 Oximetry 04/12/22 04/12/22 04/12/22 04:15 04:35 04:45 Temperature Pulse Rate 84 84 Pulse Rate [ From Monitor] Pulse Rate [ 83 None] Respiratory 25 H 25 H 27 H Rate Blood Pressure 108/57 112/59 110/60 O2 Sat by Pulse 92 93 94 Oximetry 04/12/22 04/12/22 04/12/22 05:00 05:15 05:30 Temperature Pulse Rate 85 85 86 Pulse Rate [ From Monitor] Pulse Rate [ None] Respiratory 28 H 26 H 28 H Rate Blood Pressure 107/59 111/62 112/60 O2 Sat by Pulse 93 94 93 Oximetry 04/12/22 04/12/22 04/12/22 05:45 06:00 06:15 Temperature Pulse Rate 88 86 94 H Pulse Rate [ From Monitor] Pulse Rate [ None] Respiratory 30 H 27 H 32 H Rate Blood Pressure 113/59 112/59 110/54 O2 Sat by Pulse 93 93 92 Oximetry 04/12/22 04/12/22 04/12/22 06:30 06:45 07:00 Temperature Pulse Rate 87 87 87 Pulse Rate [ From Monitor] Pulse Rate [ None] Respiratory 27 H 28 H 32 H Rate Blood Pressure 110/55 108/54 104/57 O2 Sat by Pulse 92 92 93 Oximetry 04/12/22 04/12/22 04/12/22 07:15 07:30 07:45 Temperature Pulse Rate 88 88 88 Pulse Rate [ From Monitor] Pulse Rate [ None] Respiratory 31 H 32 H 30 H Rate Blood Pressure 106/58 109/55 111/53 O2 Sat by Pulse 92 93 94 Oximetry 04/12/22 08:00 Temperature 98.8 F Pulse Rate 89 Pulse Rate [ From Monitor] Pulse Rate [ None] Respiratory 29 H Rate Blood Pressure 103/58 O2 Sat by Pulse 93 Oximetry - Lab 04/12/22 00:01 04/12/22 04:59 Most recent lab results ABG pH 7.513 pH Units (7.350-7.450) H 04/12/22 03:20 ABG pCO2 28.3 mm Hg 04/12/22 03:20 ABG pO2 61.7 mm Hg (80.0-90.0) L 04/12/22 03:20 ABG HCO3 22.2 mmol/L (20.0-26.0) 04/12/22 03:20 ABG O2 Saturation 94.2 % (95.0-99.0) L 04/12/22 03:20 Calcium 6.7 mg/dL (8.4-10.2) L 04/12/22 04:59 Phosphorus 3.10 mg/dL (2.5-4.5) D 04/11/22 03:58 Magnesium 2.00 mg/dL (1.7-2.3) 04/11/22 03:58 Urine Creatinine 224.2 mg/dL (0.1-20.0) H 04/10/22 14:50 Urine Sodium 17 mmol/L 04/10/22 14:50 Urine Total Protein 172 mg/dL (5-11.8) H 04/10/22 14:50 Medications & Allergies - Medications Allergies/Adverse Reactions: Allergies No Known Allergies Allergy (Verified 04/09/22 13:44) Active Medications: Generic Name Dose Route Start Last Admin Trade Name Freq PRN Reason Stop Dose Admin Acetaminophen 650 mg 04/09/22 18:11 Acetaminophen 325 Mg Tab PO Q4H PRN Pain MILD(1-3)/Fever >100.5/CARCAMO Dexamethasone 8 mg 04/09/22 19:00 04/11/22 20:05 Dexamethasone 4 Mg/Ml Vial IV 04/18/22 19:01 8 mg Q24H JO ANN Administration Dextrose 0 ml 04/10/22 00:40 Dextrose 50% In Water (25gm) 50 Ml Syringe IV Q30MIN PRN Hypoglycemia Protocol Enoxaparin Sodium 30 mg 04/10/22 10:00 04/11/22 10:13 Enoxaparin 30 Mg/0.3 Ml Inj SUB-Q 30 mg QDAY JO ANN Administration Famotidine 10 mg 04/09/22 22:00 04/11/22 22:29 Famotidine 20 Mg/2 Ml Inj IV 10 mg BID JO ANN Administration NORepinephrine/NS 8 MG-250 ML 8 mg in 250 mls @ 3.75 mls/hr 04/09/22 16:00 04/11/22 12:01 Norepinephrine/Ns 8 Mg-250 Ml (Double Conc) IV 0 mcg/min TITRATE JO ANN 0 mls/hr Titration Protocol 2 MCG/MIN Vasopressin 20 unit/ Sodium 101 mls @ 9.09 mls/hr 04/09/22 18:00 04/12/22 0 8:42 Chloride IV 0 units/min TITR JO ANN 0 mls/hr Titration Protocol 0.03 UNITS/MIN Insulin Human Regular 100 100 mls @ 1 mls/hr 04/10/22 01:00 04/12/22 08:30 units/ Sodium Chloride IV 3 units/hr TITR JO ANN 3 mls/hr Titration Protocol 1 UNITS/HR Dopamine HCl/Dextrose 800 mg in 250 mls @ 3.116 mls/hr 04/10/22 03:00 04/10/22 18:44 Dopamine 800 Mg/D5w 250ml IV 0 mcg/kg/min TITR JO ANN 0 mls/hr Titration Protocol 2 MCG/KG/MIN Ceftriaxone Sodium 2 gm in 100 mls @ 200 mls/hr 04/11/22 12:00 04/11/22 12:00 Rocephin/Ns 2 Gm/100 Ml IV 04/15/22 12:29 200 mls/hr Q24H JO ANN Administration Dextrose/Sodium Chloride 1,000 mls @ 100 mls/hr 04/11/22 15:00 04/12/22 04:30 D5/0.45ns IV 100 mls/hr DIRECT JO ANN Administration Morphine Sulfate 2 mg 04/09/22 18:11 Morphine 2 Mg/1 Ml Inj IV Q4H PRN Pain, Moderate (4-6) Ondansetron HCl 4 mg 04/09/22 18:11 Ondansetron 4 Mg/2 Ml Inj IV Q8H PRN Nausea And Vomiting Sodium Chloride 10 ml 04/09/22 22:00 04/11/22 22:30 Sodium Chloride 0.9% 10 Ml Flush Syringe IV 10 ml BID JO ANN Administration Sodium Chloride 10 ml 04/09/22 18:11 Sodium Chloride 0.9% 10 Ml Flush Syringe IV PRN PRN LINE FLUSH
--- NOTE | 2022-04-12 10:20 | Progress Note ---
Assessment and Plan Cultures: SARS CoV2 PCR: Positive Influenza PCR: Negative 04/09/2022 blood culture: no growth. 04/09/2022 resp culture: Usual respiratory catherine A/P: 77-year-old female with diabetes, history of ovarian cancer believed to be in remission was admitted with altered mental status: #Septic shock, probably secondary to severe COVID-19. ABG showed severe acidosis. UA without pyuria. Chest x-ray showed bilateral airspace opacities. Off pressors now. #Bilateral pneumonia: Secondary to COVID-19. Unvaccinated. Actemra administered 04/10/2022. CRP 11.3, procalcitonin 3.3, ferritin 1218, LDH 482. #Acute hypoxic respiratory failure: Requiring mechanical ventilation. #ASHLEY: Renally adjust antibiotics. #Transaminitis #Acute encephalopathy: Neurology following. Recs: -IV/PO Dexamethasone x 10 days -Due to renal failure, not a candidate for Remdesivir -S/p Actemra 04/10/2022 -prophylactic anticoagulation based on d-dimer per hospital protocol -procal elevated, but in the setting of renal failure, so difficult to interpret, complete 5 days of empiric abx, Ceftriaxone and Vancomycin. -trend ferritin, d-dimer, CRP every 2-3 days -Guarded prognosis Yovani Arce MD, FACP, [facility] ([facility]) O: [phone] F: [phone] C: [phone] Subjective Date of service: 04/12/22 Principal diagnosis: ASHLEY Interval history: Afebrile, remains on the vent. FiO2 50%, PEEP 8. Off pressors. Objective - Exam Narrative Exam: Physical Exam: Constitutional: sedated, intubated, on the vent Head, Ears, Nose: Normocephalic, atraumatic. External ears, nose normal Eyes: Conjunctivae/corneas clear. No icterus. No ptosis. Neck: intubated Oral: intubated Cardiovascular: S1, S2 + Respiratory: AE fair bilaterally and equal GI: Soft, bowel sounds + Musculoskeletal: No pedal edema, no cyanosis. Skin: No rash or abscess Hem/Lymphatic: No palpable cervical or supraclavicular nodes. No lymphangitis Psych: no agitation Neurological: sedated, intubated, on the vent, exam limited - Constitutional Vitals: Vital Signs Temp Pulse Resp BP Pulse Ox 98.8 F 103 H 23 113/60 96 04/12/22 08:00 04/12/22 10:00 04/12/22 10:00 04/12/22 10:00 04/12/22 10:00 Temperature -Last 24 Hours Temperature 98.8 F Temperature 98.4 F Temperature 98.8 F Temperature 98.6 F Temperature 98.8 F Temperature 99 F - Labs CBC & Chem 7: 04/12/22 00:01 04/12/22 04:59 Labs: Abnormal lab results 04/11/22 04/11/22 04/11/22 Range/Units 10:06 15:59 23:58 WBC (4.5-11.0) K/mm3 RDW (13.2-15.2) % Lymph % (Auto) (13.4-35.0) % Lymph # (Auto) (1.2-5.4) K/mm3 Seg Neutrophils % (40.0-70.0) % Seg Neutrophils # (1.8-7.7) K/mm3 D-Dimer (0-234) ng/mlDDU ABG pH (7.350-7.450) pH Units ABG pO2 (80.0-90.0) mm Hg ABG O2 Saturation (95.0-99.0) % ABG Hemoglobin (12.0-16.0) gm/dl Oxyhemoglobin (95.0-99.0) % Sodium (137-145) mmol/L Chloride (98-107) mmol/L BUN (7-17) mg/dL Creatinine (0.6-1.2) mg/dL Glucose (65-100) mg/dL POC Glucose 138 H 166 H 150 H (70-105) mg/dL Calcium (8.4-10.2) mg/dL Ferritin (10.0-200.0) ng/mL Lactate Dehydrogenase (91-180) units/L C-Reactive Protein (0.00-1.30) mg/dL 04/12/22 04/12/22 04/12/22 Range/Units 00:01 03:20 04:00 WBC 16.2 H (4.5-11.0) K/mm3 RDW 15.8 H (13.2-15.2) % Lymph % (Auto) 5.7 L (13.4-35.0) % Lymph # (Auto) 0.9 L (1.2-5.4) K/mm3 Seg Neutrophils % 89.6 H (40.0-70.0) % Seg Neutrophils # 14.6 H (1.8-7.7) K/mm3 D-Dimer 1874.86 H (0-234) ng/mlDDU ABG pH 7.513 H (7.350-7.450) pH Units ABG pO2 61.7 L (80.0-90.0) mm Hg ABG O2 Saturation 94.2 L (95.0-99.0) % ABG Hemoglobin 11.5 L (12.0-16.0) gm/dl Oxyhemoglobin 92.6 L (95.0-99.0) % Sodium (137-145) mmol/L Chloride (98-107) mmol/L BUN (7-17) mg/dL Creatinine (0.6-1.2) mg/dL Glucose (65-100) mg/dL POC Glucose (70-105) mg/dL Calcium (8.4-10.2) mg/dL Ferritin (10.0-200.0) ng/mL Lactate Dehydrogenase (91-180) units/L C-Reactive Protein (0.00-1.30) mg/dL 04/12/22 04/12/22 04/12/22 Range/Units 04:00 04:00 04:20 WBC (4.5-11.0) K/mm3 RDW (13.2-15.2) % Lymph % (Auto) (13.4-35.0) % Lymph # (Auto) (1.2-5.4) K/mm3 Seg Neutrophils % (40.0-70.0) % Seg Neutrophils # (1.8-7.7) K/mm3 D-Dimer (0-234) ng/mlDDU ABG pH (7.350-7.450) pH Units ABG pO2 (80.0-90.0) mm Hg ABG O2 Saturation (95.0-99.0) % ABG Hemoglobin (12.0-16.0) gm/dl Oxyhemoglobin (95.0-99.0) % Sodium (137-145) mmol/L Chloride (98-107) mmol/L BUN (7-17) mg/dL Creatinine (0.6-1.2) mg/dL Glucose (65-100) mg/dL POC Glucose 146 H (70-105) mg/dL Calcium (8.4-10.2) mg/dL Ferritin 890.0 H (10.0-200.0) ng/mL Lactate Dehydrogenase 763 H (91-180) units/L C-Reactive Protein 14.10 H (0.00-1.30) mg/dL 04/12/22 Range/Units 04:59 WBC (4.5-11.0) K/mm3 RDW (13.2-15.2) % Lymph % (Auto) (13.4-35.0) % Lymph # (Auto) (1.2-5.4) K/mm3 Seg Neutrophils % (40.0-70.0) % Seg Neutrophils # (1.8-7.7) K/mm3 D-Dimer (0-234) ng/mlDDU ABG pH (7.350-7.450) pH Units ABG pO2 (80.0-90.0) mm Hg ABG O2 Saturation (95.0-99.0) % ABG Hemoglobin (12.0-16.0) gm/dl Oxyhemoglobin (95.0-99.0) % Sodium 146 H (137-145) mmol/L Chloride 108.0 H (98-107) mmol/L BUN 38 H (7-17) mg/dL Creatinine 2.3 H (0.6-1.2) mg/dL Glucose 173 H (65-100) mg/dL POC Glucose (70-105) mg/dL Calcium 6.7 L (8.4-10.2) mg/dL Ferritin (10.0-200.0) ng/mL Lactate Dehydrogenase (91-180) units/L C-Reactive Protein (0.00-1.30) mg/dL
[2022-04-12] MEDS: FAMOTIDINE 20 MG/2 ML INJ IV SCH ×2 (10:21→21:45)
[2022-04-12] MEDS: ENOXAPARIN 30 MG/0.3 ML INJ SUB-Q SCH (10:21)
[2022-04-12] MEDS: cefTRIAXone/NS 2 GM/100 ML 2 GM/100 ML BAG IV SCH (11:55)
[2022-04-12] MEDS: INSULIN LISPRO 100 UNIT/ML SUB-Q SCH ×2 (12:12→17:16)
[2022-04-12] MEDS ORDERED: INSULIN GLARGINE 100 UNITS/ML SUB-Q SCH (12:15)
[2022-04-12 12:23] LABS: Creatinine,Urine 160.5 mg/dL (0.1-20.0)
[2022-04-12 12:24] LABS: Creatinine,Urine 161.8 mg/dL (0.1-20.0)
[2022-04-12 12:27] LABS: Creatinine 24 Hour,Urine 1.2 (0.8-2.8); Total Volume,Urine 750 ml
[2022-04-12 12:27] LABS: Creatinine 24 Hour,Urine 1.2 (0.8-2.8)
--- NOTE | 2022-04-12 12:36 | Progress Note ---
Assessment and Plan 77 y/o female with multisystem organ failure, COVID positive 04/12/22: Improved mental state. Feed patient today and stop IVF's and attempt to get off of insulin drip. Dropped Peep to 6. Wean FiO2 for sats >88%. PaO2 of 55 and greater are acceptable. Normal EF on echo. EEG showed diffuse slowing but mental state has improved. Will up date family. 04/11/22: Continue supportive measures. Getting EEG right now. Continue to wean Pressors for MAPs >65. if able to get to just one pressor, will place NG vs OG and attempt trickle feeds. Follow up echo. Down to 45%, good PaO2. Continue to wean, however mental state would preclude extubation at this time. Await renal eval but would like to stop bicarb now that acidosis is better, however needs free water but this could be given do OG/NG if end up placing, otherwise would just do D5W. If able to place tube and feed, then can attempt to get off insulin drip. Plan to update family after echo and EEG read. 1. Neuro-concern for seizures. EEG pending. Hold on long acting anti-epileptic therapy. Neurology consulted and has seen. patient is not on any continuous se dation at present 2. CV-Cardiovascular collapse on pressors (3). Could benefit from echo. Attempt volume resuscitation but no improvement. Continue pressors and wean as tolerated for MAPs >65 3. Pulm-intubated, not on sedation. COVID positive but oxygenation is stable. Per documentation, mainly intubated for airway protection given altered level of mental status. Not a candidate for Remdesivir and may not be a candidate for actemra. Continue steroids and low Tidal volume strategy for lung protection with permissive hypercapnea and lower PaO2 (55-60) if needed. 4. Renal- worsening renal function and decrease in urine output. Renal following. May need HD but would likely not tolerate and CRRT or CVVH is not available here. Worsening lactic acidosis as well. 5. GI-hold on feeds given pressor requirement, prophylactic therapy 6. Endo-continue insulin drip for now Overall prognosis is guarded to poor. Will discuss with immediate family today. CCT 31 minutes. Subjective Date of service: 04/12/22 Principal diagnosis: ASHLEY Interval history: Off pressors now. More awake today. Follows commands. On 50% and 8 of PEEP. PaO2 was 62 this am. Has OG/NG placed but not getting fed yet. Objective Vital Signs - 12hr 04/12/22 04/12/22 04/12/22 00:45 01:00 01:15 Temperature Pulse Rate 79 79 77 Pulse Rate [ From Monitor] Pulse Rate [ None] Respiratory 31 H 28 H 26 H Rate Blood Pressure 107/58 111/59 110/58 O2 Sat by Pulse 92 91 92 Oximetry 04/12/22 04/12/22 04/12/22 01:30 01:45 02:00 Temperature Pulse Rate 78 78 Pulse Rate [ From Monitor] Pulse Rate [ 77 None] Respiratory 27 H 32 H 27 H Rate Blood Pressure 107/60 112/59 110/61 O2 Sat by Pulse 92 93 92 Oximetry 04/12/22 04/12/22 04/12/22 02:15 02:30 02:45 Temperature Pulse Rate Pulse Rate [ From Monitor] Pulse Rate [ 79 79 79 None] Respiratory 26 H 26 H 25 H Rate Blood Pressure 116/61 111/62 O2 Sat by Pulse 91 93 91 Oximetry 04/12/22 04/12/22 04/12/22 03:00 03:20 03:45 Temperature Pulse Rate 82 Pulse Rate [ From Monitor] Pulse Rate [ 80 83 None] Respiratory 25 H 6 L 24 Rate Blood Pressure 107/60 109/58 109/56 O2 Sat by Pulse 92 95 92 Oximetry 04/12/22 04/12/22 04/12/22 04:00 04:15 04:35 Temperature 98.4 F Pulse Rate 83 84 Pulse Rate [ 83 From Monitor] Pulse Rate [ 83 83 None] Respiratory 24 25 H 25 H Rate Blood Pressure 108/59 108/57 112/59 O2 Sat by Pulse 92 92 93 Oximetry 04/12/22 04/12/22 04/12/22 04:45 05:00 05:15 Temperature Pulse Rate 84 85 85 Pulse Rate [ From Monitor] Pulse Rate [ None] Respiratory 27 H 28 H 26 H Rate Blood Pressure 110/60 107/59 111/62 O2 Sat by Pulse 94 93 94 Oximetry 04/12/22 04/12/22 04/12/22 05:30 05:45 06:00 Temperature Pulse Rate 86 88 86 Pulse Rate [ From Monitor] Pulse Rate [ None] Respiratory 28 H 30 H 27 H Rate Blood Pressure 112/60 113/59 112/59 O2 Sat by Pulse 93 93 93 Oximetry 04/12/22 04/12/22 04/12/22 06:15 06:30 06:45 Temperature Pulse Rate 94 H 87 87 Pulse Rate [ From Monitor] Pulse Rate [ None] Respiratory 32 H 27 H 28 H Rate Blood Pressure 110/54 110/55 108/54 O2 Sat by Pulse 92 92 92 Oximetry 04/12/22 04/12/22 04/12/22 07:00 07:15 07:30 Temperature Pulse Rate 87 88 88 Pulse Rate [ From Monitor] Pulse Rate [ None] Respiratory 32 H 31 H 32 H Rate Blood Pressure 104/57 106/58 109/55 O2 Sat by Pulse 93 92 93 Oximetry 04/12/22 04/12/22 04/12/22 07:45 08:00 08:15 Temperature 98.8 F Pulse Rate 88 89 92 H Pulse Rate [ From Monitor] Pulse Rate [ None] Respiratory 30 H 29 H 33 H Rate Blood Pressure 111/53 103/58 114/55 O2 Sat by Pulse 94 93 94 Oximetry 04/12/22 04/12/22 04/12/22 08:30 08:45 09:00 Temperature Pulse Rate 91 H 89 90 Pulse Rate [ From Monitor] Pulse Rate [ None] Respiratory 33 H 33 H 29 H Rate Blood Pressure 100/47 100/55 103/56 O2 Sat by Pulse 96 95 96 Oximetry 04/12/22 04/12/22 04/12/22 09:15 09:30 09:36 Temperature Pulse Rate 90 90 91 H Pulse Rate [ From Monitor] Pulse Rate [ None] Respiratory 30 H 29 H Rate Blood Pressure 107/54 110/54 108/54 O2 Sat by Pulse 96 95 95 Oximetry 04/12/22 04/12/22 04/12/22 09:45 10:00 10:15 Temperature Pulse Rate 91 H 103 H 99 H Pulse Rate [ From Monitor] Pulse Rate [ None] Respiratory 31 H 23 31 H Rate Blood Pressure 108/54 113/60 115/56 O2 Sat by Pulse 95 96 95 Oximetry 04/12/22 04/12/22 04/12/22 10:30 10:45 11:00 Temperature Pulse Rate 91 H 91 H 90 Pulse Rate [ From Monitor] Pulse Rate [ None] Respiratory 28 H 28 H 27 H Rate Blood Pressure 111/53 109/57 109/51 O2 Sat by Pulse 94 94 94 Oximetry 04/12/22 04/12/22 04/12/22 11:15 11:30 11:45 Temperature Pulse Rate 92 H 93 H 93 H Pulse Rate [ From Monitor] Pulse Rate [ None] Respiratory 28 H 32 H 31 H Rate Blood Pressure 105/56 113/57 112/60 O2 Sat by Pulse 94 95 94 Oximetry 04/12/22 12:00 Temperature 98.8 F Pulse Rate 91 H Pulse Rate [ From Monitor] Pulse Rate [ None] Respiratory 28 H Rate Blood Pressure 112/64 O2 Sat by Pulse 96 Oximetry CBC and BMP: 04/12/22 00:01 04/12/22 04:59 ABG, PT/INR, D-dimer: ABG ABG pH 7.513 pH Units (7.350-7.450) H 04/12/22 03:20 ABG pCO2 28.3 mm Hg 04/12/22 03:20 ABG pO2 61.7 mm Hg (80.0-90.0) L 04/12/22 03:20 ABG O2 Saturation 94.2 % (95.0-99.0) L 04/12/22 03:20 PT/INR, D-dimer PT 14.5 Sec. (12.2-14.9) 04/09/22 12:52 INR 1.02 (0.87-1.13) 04/09/22 12:52 D-Dimer 1874.86 ng/mlDDU (0-234) H 04/12/22 04:00 Abnormal lab findings: Abnormal Labs 04/09/22 04/09/22 04/09/22 11:59 12:52 12:52 WBC RDW 15.3 H Lymph % (Auto) 8.4 L Lymph # (Auto) 0.7 L Seg Neutrophils % 84.6 H Seg Neuts % (Manual) Lymphocytes % (Manual) Seg Neutrophils # Seg Neutrophils # Man Lymphocytes # (Manual) D-Dimer ABG pH ABG pO2 ABG HCO3 ABG O2 Saturation ABG Base Excess ABG Hemoglobin VBG pH Oxyhemoglobin Sodium Potassium Chloride 112.7 H Carbon Dioxide 18 L BUN Creatinine 2.0 H Glucose 204 H POC Glucose 203 H Lactic Acid Calcium Phosphorus Magnesium Ferritin Total Bilirubin 1.30 H AST 47 H ALT Ammonia Lactate Dehydrogenase C-Reactive Protein Total Protein Albumin Urine Creatinine Urine Total Protein Coronavirus (PCR) 04/09/22 04/09/22 04/09/22 12:52 12:52 13:02 WBC RDW Lymph % (Auto) Lymph # (Auto) Seg Neutrophils % Seg Neuts % (Manual) Lymphocytes % (Manual) Seg Neutrophils # Seg Neutrophils # Man Lymphocytes # (Manual) D-Dimer ABG pH ABG pO2 ABG HCO3 ABG O2 Saturation ABG Base Excess ABG Hemoglobin VBG pH 7.303 L Oxyhemoglobin Sodium Potassium Chloride Carbon Dioxide BUN Creatinine Glucose POC Glucose Lactic Acid Calcium Phosphorus Magnesium Ferritin Total Bilirubin AST ALT Ammonia 20.0 L Lactate Dehydrogenase C-Reactive Protein Total Protein Albumin Urine Creatinine Urine Total Protein Coronavirus (PCR) Positive A 04/09/22 04/09/22 04/09/22 15:49 22:15 22:58 WBC RDW Lymph % (Auto) Lymph # (Auto) Seg Neutrophils % Seg Neuts % (Manual) Lymphocytes % (Manual) Seg Neutrophils # Seg Neutrophils # Man Lymphocytes # (Manual) D-Dimer ABG pH 7.097 L* ABG pO2 188.8 H ABG HCO3 7.4 L ABG O2 Saturation 99.1 H ABG Base Excess -20.7 L ABG Hemoglobin VBG pH Oxyhemoglobin Sodium Potassium Chloride 108.8 H Carbon Dioxide 10 L D BUN 20 H Creatinine 2.6 H Glucose 465 H POC Glucose Lactic Acid 2.70 H* Calcium 7.4 L Phosphorus Magnesium Ferritin Total Bilirubin AST ALT Ammonia Lactate Dehydrogenase C-Reactive Protein Total Protein Albumin Urine Creatinine Urine Total Protein Coronavirus (PCR) 04/09/22 04/09/22 04/10/22 23:19 Unknown 00:03 WBC RDW Lymph % (Auto) Lymph # (Auto) Seg Neutrophils % Seg Neuts % (Manual) Lymphocytes % (Manual) Seg Neutrophils # Seg Neutrophils # Man Lymphocytes # (Manual) D-Dimer ABG pH ABG pO2 ABG HCO3 ABG O2 Saturation ABG Base Excess ABG Hemoglobin VBG pH Oxyhemoglobin Sodium Potassium Chloride Carbon Dioxide BUN Creatinine Glucose POC Glucose 356 H Lactic Acid 7.50 H* 6.10 H* Calcium Phosphorus Magnesium Ferritin Total Bilirubin AST ALT Ammonia Lactate Dehydrogenase C-Reactive Protein Total Protein Albumin Urine Creatinine Urine Total Protein Coronavirus (PCR) 04/10/22 04/10/22 04/10/22 02:16 03:03 04:00 WBC RDW Lymph % (Auto) Lymph # (Auto) Seg Neutrophils % Seg Neuts % (Manual) Lymphocytes % (Manual) Seg Neutrophils # Seg Neutrophils # Man Lymphocytes # (Manual) D-Dimer ABG pH ABG pO2 ABG HCO3 ABG O2 Saturation ABG Base Excess ABG Hemoglobin VBG pH Oxyhemoglobin Sodium Potassium Chloride Carbon Dioxide BUN Creatinine Glucose POC Glucose 317 H 325 H 308 H Lactic Acid Calcium Phosphorus Magnesium Ferritin Total Bilirubin AST ALT Ammonia Lactate Dehydrogenase C-Reactive Protein Total Protein Albumin Urine Creatinine Urine Total Protein Coronavirus (PCR) 04/10/22 04/10/22 04/10/22 04:24 04:24 04:24 WBC 16.4 H RDW 16.2 H Lymph % (Auto) Lymph # (Auto) Seg Neutrophils % Seg Neuts % (Manual) 94.0 H Lymphocytes % (Manual) 3.0 L Seg Neutrophils # Seg Neutrophils # Man 15.4 H Lymphocytes # (Manual) 0.5 L D-Dimer ABG pH ABG pO2 ABG HCO3 ABG O2 Saturation ABG Base Excess ABG Hemoglobin VBG pH Oxyhemoglobin Sodium Potassium 2.9 L* D Chloride 116.1 H Carbon Dioxide 11 L BUN 19 H Creatinine 2.5 H Glucose 376 H POC Glucose Lactic Acid Calcium 6.5 L Phosphorus 1.40 L Magnesium 1.60 L Ferritin Total Bilirubin AST 107 H ALT 64 H Ammonia Lactate Dehydrogenase C-Reactive Protein Total Protein 5.5 L Albumin 2.8 L Urine Creatinine Urine Total Protein Coronavirus (PCR) 04/10/22 04/10/22 04/10/22 04:25 05:17 06:00 WBC RDW Lymph % (Auto) Lymph # (Auto) Seg Neutrophils % Seg Neuts % (Manual) Lymphocytes % (Manual) Seg Neutrophils # Seg Neutrophils # Man Lymphocytes # (Manual) D-Dimer ABG pH 7.095 L* ABG pO2 112.3 H ABG HCO3 8.7 L ABG O2 Saturation ABG Base Excess -19.7 L ABG Hemoglobin VBG pH Oxyhemoglobin Sodium Potassium Chloride Carbon Dioxide BUN Creatinine Glucose POC Glucose 343 H 278 H Lactic Acid Calcium Phosphorus Magnesium Ferritin Total Bilirubin AST ALT Ammonia Lactate Dehydrogenase C-Reactive Protein Total Protein Albumin Urine Creatinine Urine Total Protein Coronavirus (PCR) 04/10/22 04/10/22 04/10/22 06:53 07:54 08:58 WBC RDW Lymph % (Auto) Lymph # (Auto) Seg Neutrophils % Seg Neuts % (Manual) Lymphocytes % (Manual) Seg Neutrophils # Seg Neutrophils # Man Lymphocytes # (Manual) D-Dimer ABG pH ABG pO2 ABG HCO3 ABG O2 Saturation ABG Base Excess ABG Hemoglobin VBG pH Oxyhemoglobin Sodium Potassium Chloride Carbon Dioxide BUN Creatinine Glucose POC Glucose 262 H 245 H 215 H Lactic Acid Calcium Phosphorus Magnesium Ferritin Total Bilirubin AST ALT Ammonia Lactate Dehydrogenase C-Reactive Protein Total Protein Albumin Urine Creatinine Urine Total Protein Coronavirus (PCR) 04/10/22 04/10/22 04/10/22 10:12 10:51 11:47 WBC RDW Lymph % (Auto) Lymph # (Auto) Seg Neutrophils % Seg Neuts % (Manual) Lymphocytes % (Manual) Seg Neutrophils # Seg Neutrophils # Man Lymphocytes # (Manual) D-Dimer ABG pH ABG pO2 ABG HCO3 ABG O2 Saturation ABG Base Excess ABG Hemoglobin VBG pH Oxyhemoglobin Sodium 148 H Potassium 3.4 L Chloride 116.7 H Carbon Dioxide 15 L BUN 22 H Creatinine 2.7 H Glucose 190 H POC Glucose 206 H 176 H Lactic Acid Calcium 6.9 L Phosphorus Magnesium Ferritin Total Bilirubin AST ALT Ammonia Lactate Dehydrogenase C-Reactive Protein Total Protein Albumin Urine Creatinine Urine Total Protein Coronavirus (PCR) 04/10/22 04/10/22 04/10/22 11:47 11:47 12:02 WBC RDW Lymph % (Auto) Lymph # (Auto) Seg Neutrophils % Seg Neuts % (Manual) Lymphocytes % (Manual) Seg Neutrophils # Seg Neutrophils # Man Lymphocytes # (Manual) D-Dimer ABG pH ABG pO2 ABG HCO3 ABG O2 Saturation ABG Base Excess ABG Hemoglobin VBG pH Oxyhemoglobin Sodium Potassium Chloride Carbon Dioxide BUN Creatinine Glucose POC Glucose 178 H Lactic Acid Calcium Phosphorus Magnesium Ferritin 1218.0 H Total Bilirubin AST ALT Ammonia Lactate Dehydrogenase 482 H C-Reactive Protein 11.30 H Total Protein Albumin Urine Creatinine Urine Total Protein Coronavirus (PCR) 04/10/22 04/10/22 04/10/22 13:13 13:58 14:50 WBC RDW Lymph % (Auto) Lymph # (Auto) Seg Neutrophils % Seg Neuts % (Manual) Lymphocytes % (Manual) Seg Neutrophils # Seg Neutrophils # Man Lymphocytes # (Manual) D-Dimer ABG pH ABG pO2 ABG HCO3 ABG O2 Saturation ABG Base Excess ABG Hemoglobin VBG pH Oxyhemoglobin Sodium Potassium Chloride Carbon Dioxide BUN Creatinine Glucose POC Glucose 160 H 150 H Lactic Acid Calcium Phosphorus Magnesium Ferritin Total Bilirubin AST ALT Ammonia Lactate Dehydrogenase C-Reactive Protein Total Protein Albumin Urine Creatinine 224.2 H Urine Total Protein 172 H Coronavirus (PCR) 04/10/22 04/10/22 04/10/22 15:24 16:38 16:56 WBC RDW Lymph % (Auto) Lymph # (Auto) Seg Neutrophils % Seg Neuts % (Manual) Lymphocytes % (Manual) Seg Neutrophils # Seg Neutrophils # Man Lymphocytes # (Manual) D-Dimer ABG pH ABG pO2 ABG HCO3 ABG O2 Saturation ABG Base Excess ABG Hemoglobin VBG pH Oxyhemoglobin Sodium Potassium Chloride Carbon Dioxide BUN Creatinine Glucose POC Glucose 140 H 154 H 149 H Lactic Acid Calcium Phosphorus Magnesium Ferritin Total Bilirubin AST ALT Ammonia Lactate Dehydrogenase C-Reactive Protein Total Protein Albumin Urine Creatinine Urine Total Protein Coronavirus (PCR) 04/10/22 04/10/22 04/10/22 18:21 19:21 20:02 WBC RDW Lymph % (Auto) Lymph # (Auto) Seg Neutrophils % Seg Neuts % (Manual) Lymphocytes % (Manual) Seg Neutrophils # Seg Neutrophils # Man Lymphocytes # (Manual) D-Dimer ABG pH ABG pO2 ABG HCO3 ABG O2 Saturation ABG Base Excess ABG Hemoglobin VBG pH Oxyhemoglobin Sodium Potassium Chloride Carbon Dioxide BUN Creatinine Glucose POC Glucose 141 H 126 H 139 H Lactic Acid Calcium Phosphorus Magnesium Ferritin Total Bilirubin AST ALT Ammonia Lactate Dehydrogenase C-Reactive Protein Total Protein Albumin Urine Creatinine Urine Total Protein Coronavirus (PCR) 04/10/22 04/10/22 04/10/22 21:04 21:58 22:20 WBC RDW Lymph % (Auto) Lymph # (Auto) Seg Neutrophils % Seg Neuts % (Manual) Lymphocytes % (Manual) Seg Neutrophils # Seg Neutrophils # Man Lymphocytes # (Manual) D-Dimer ABG pH ABG pO2 ABG HCO3 ABG O2 Saturation ABG Base Excess ABG Hemoglobin VBG pH Oxyhemoglobin Sodium Potassium Chloride 114.5 H Carbon Dioxide 17 L BUN 24 H Creatinine 2.5 H Glucose 165 H POC Glucose 144 H 161 H Lactic Acid Calcium 6.5 L Phosphorus Magnesium Ferritin Total Bilirubin AST ALT Ammonia Lactate Dehydrogenase C-Reactive Protein Total Protein Albumin Urine Creatinine Urine Total Protein Coronavirus (PCR) 04/10/22 04/11/22 04/11/22 23:02 00:08 01:05 WBC RDW Lymph % (Auto) Lymph # (Auto) Seg Neutrophils % Seg Neuts % (Manual) Lymphocytes % (Manual) Seg Neutrophils # Seg Neutrophils # Man Lymphocytes # (Manual) D-Dimer ABG pH ABG pO2 ABG HCO3 ABG O2 Saturation ABG Base Excess ABG Hemoglobin VBG pH Oxyhemoglobin Sodium Potassium Chloride Carbon Dioxide BUN Creatinine Glucose POC Glucose 160 H 148 H 156 H Lactic Acid Calcium Phosphorus Magnesium Ferritin Total Bilirubin AST ALT Ammonia Lactate Dehydrogenase C-Reactive Protein Total Protein Albumin Urine Creatinine Urine Total Protein Coronavirus (PCR) 04/11/22 04/11/22 04/11/22 01:30 02:05 03:04 WBC RDW Lymph % (Auto) Lymph # (Auto) Seg Neutrophils % Seg Neuts % (Manual) Lymphocytes % (Manual) Seg Neutrophils # Seg Neutrophils # Man Lymphocytes # (Manual) D-Dimer ABG pH ABG pO2 75.1 L ABG HCO3 17.2 L ABG O2 Saturation ABG Base Excess -5.8 L ABG Hemoglobin 11.5 L VBG pH Oxyhemoglobin Sodium Potassium Chloride Carbon Dioxide BUN Creatinine Glucose POC Glucose 150 H 168 H Lactic Acid Calcium Phosphorus Magnesium Ferritin Total Bilirubin AST ALT Ammonia Lactate Dehydrogenase C-Reactive Protein Total Protein Albumin Urine Creatinine Urine Total Protein Coronavirus (PCR) 04/11/22 04/11/22 04/11/22 03:58 03:58 04:05 WBC 12.2 H RDW 15.7 H Lymph % (Auto) Lymph # (Auto) Seg Neutrophils % Seg Neuts % (Manual) Lymphocytes % (Manual) Seg Neutrophils # Seg Neutrophils # Man Lymphocytes # (Manual) D-Dimer ABG pH ABG pO2 ABG HCO3 ABG O2 Saturation ABG Base Excess ABG Hemoglobin VBG pH Oxyhemoglobin Sodium 147 H Potassium Chloride 114.2 H Carbon Dioxide 19 L BUN 26 H Creatinine 2.5 H Glucose 154 H POC Glucose 151 H Lactic Acid Calcium 6.8 L Phosphorus Magnesium Ferritin Total Bilirubin AST 106 H ALT 60 H Ammonia Lactate Dehydrogenase C-Reactive Protein Total Protein 5.6 L Albumin 2.7 L Urine Creatinine Urine Total Protein Coronavirus (PCR) 04/11/22 04/11/22 04/11/22 05:14 06:19 08:23 WBC RDW Lymph % (Auto) Lymph # (Auto) Seg Neutrophils % Seg Neuts % (Manual) Lymphocytes % (Manual) Seg Neutrophils # Seg Neutrophils # Man Lymphocytes # (Manual) D-Dimer ABG pH ABG pO2 ABG HCO3 ABG O2 Saturation ABG Base Excess ABG Hemoglobin VBG pH Oxyhemoglobin Sodium Potassium Chloride Carbon Dioxide BUN Creatinine Glucose POC Glucose 134 H 144 H 143 H Lactic Acid Calcium Phosphorus Magnesium Ferritin Total Bilirubin AST ALT Ammonia Lactate Dehydrogenase C-Reactive Protein Total Protein Albumin Urine Creatinine Urine Total Protein Coronavirus (PCR) 04/11/22 04/11/22 04/11/22 09:28 10:06 11:23 WBC RDW Lymph % (Auto) Lymph # (Auto) Seg Neutrophils % Seg Neuts % (Manual) Lymphocytes % (Manual) Seg Neutrophils # Seg Neutrophils # Man Lymphocytes # (Manual) D-Dimer ABG pH ABG pO2 ABG HCO3 ABG O2 Saturation ABG Base Excess ABG Hemoglobin VBG pH Oxyhemoglobin Sodium Potassium Chloride Carbon Dioxide BUN Creatinine Glucose POC Glucose 138 H Lactic Acid Calcium Phosphorus Magnesium Ferritin Total Bilirubin AST ALT Ammonia Lactate Dehydrogenase C-Reactive Protein Total Protein Albumin Urine Creatinine 161.8 H 160.5 H Urine Total Protein Coronavirus (PCR) 04/11/22 04/11/22 04/12/22 15:59 23:58 00:01 WBC 16.2 H RDW 15.8 H Lymph % (Auto) 5.7 L Lymph # (Auto) 0.9 L Seg Neutrophils % 89.6 H Seg Neuts % (Manual) Lymphocytes % (Manual) Seg Neutrophils # 14.6 H Seg Neutrophils # Man Lymphocytes # (Manual) D-Dimer ABG pH ABG pO2 ABG HCO3 ABG O2 Saturation ABG Base Excess ABG Hemoglobin VBG pH Oxyhemoglobin Sodium Potassium Chloride Carbon Dioxide BUN Creatinine Glucose POC Glucose 166 H 150 H Lactic Acid Calcium Phosphorus Magnesium Ferritin Total Bilirubin AST ALT Ammonia Lactate Dehydrogenase C-Reactive Protein Total Protein Albumin Urine Creatinine Urine Total Protein Coronavirus (PCR) 04/12/22 04/12/22 04/12/22 03:20 04:00 04:00 WBC RDW Lymph % (Auto) Lymph # (Auto) Seg Neutrophils % Seg Neuts % (Manual) Lymphocytes % (Manual) Seg Neutrophils # Seg Neutrophils # Man Lymphocytes # (Manual) D-Dimer 1874.86 H ABG pH 7.513 H ABG pO2 61.7 L ABG HCO3 ABG O2 Saturation 94.2 L ABG Base Excess ABG Hemoglobin 11.5 L VBG pH Oxyhemoglobin 92.6 L Sodium Potassium Chloride Carbon Dioxide BUN Creatinine Glucose POC Glucose Lactic Acid Calcium Phosphorus Magnesium Ferritin 890.0 H Total Bilirubin AST ALT Ammonia Lactate Dehydrogenase C-Reactive Protein Total Protein Albumin Urine Creatinine Urine Total Protein Coronavirus (PCR) 04/12/22 04/12/22 04/12/22 04:00 04:20 04:59 WBC RDW Lymph % (Auto) Lymph # (Auto) Seg Neutrophils % Seg Neuts % (Manual) Lymphocytes % (Manual) Seg Neutrophils # Seg Neutrophils # Man Lymphocytes # (Manual) D-Dimer ABG pH ABG pO2 ABG HCO3 ABG O2 Saturation ABG Base Excess ABG Hemoglobin VBG pH Oxyhemoglobin Sodium 146 H Potassium Chloride 108.0 H Carbon Dioxide BUN 38 H Creatinine 2.3 H Glucose 173 H POC Glucose 146 H Lactic Acid Calcium 6.7 L Phosphorus Magnesium Ferritin Total Bilirubin AST ALT Ammonia Lactate Dehydrogenase 763 H C-Reactive Protein 14.10 H Total Protein Albumin Urine Creatinine Urine Total Protein Coronavirus (PCR) 04/12/22 04/12/22 04/12/22 06:05 10:15 11:52 WBC RDW Lymph % (Auto) Lymph # (Auto) Seg Neutrophils % Seg Neuts % (Manual) Lymphocytes % (Manual) Seg Neutrophils # Seg Neutrophils # Man Lymphocytes # (Manual) D-Dimer ABG pH ABG pO2 ABG HCO3 ABG O2 Saturation ABG Base Excess ABG Hemoglobin VBG pH Oxyhemoglobin Sodium Potassium Chloride Carbon Dioxide BUN Creatinine Glucose POC Glucose 190 H 122 H 125 H Lactic Acid Calcium Phosphorus Magnesium Ferritin Total Bilirubin AST ALT Ammonia Lactate Dehydrogenase C-Reactive Protein Total Protein Albumin Urine Creatinine Urine Total Protein Coronavirus (PCR)
[2022-04-12 14:07] LABS: Calcium 7.1 mg/dL (8.4-10.2)
--- NOTE | 2022-04-12 14:39 | Progress Note ---
Assessment and Plan Assessment and plan: This is a 77-year-old female with DM and ovarian cancer in remission admitted for septic shock secondary to COVID-19 pneumonia, acute kidney injury, acute hypoxic respiratory failure and currently in multiorgan failure Neuro: Acute metabolic encephalopathy, myoclonic jerks -Myoclonic jerking aborted with Ativan -Avoid delirium -Reorientation as needed -Maintain sleep-wake cycle -aspiration/seizure precautions -Neurology consulted, appreciate recommendations -Initial CT head showed no acute abnormality -EEG pending -MRI brain pending Cardiac: NAD -Blood pressure monitoring per protocol -s/p vasopressor support with Levophed, dobutamine, vasopressin -MAP goal greater than 65 -Echocardiogram shows LVEF 55 to 60%, normal bivalve function, mildly dilated right ventricle Respiratory: Acute hypoxic respiratory failure -CCM consulted, appreciate recommendations -Intubated in the emergency department 04/09 with 7.00 ETT at 22 the lips -A.m. vent settings: Assist-control rate 20, tidal volume 450, PEEP 8, FiO2 45% -See RT notes for titration -A.m. ABG and CXR noted -VAP bundle -SPO2 monitoring GI: Transaminitis -24 hours + 2111 now -PPI -NTR consult for tube feedings -BR: Colace : Acute kidney injury likely secondary to ischemic acute tubular necrosis, Hypernatremia, hyperkalemia -Nephrology consulted, appreciate recommendations -Strict intake and output -Renally dose medications -Avoid nephrotoxic medications -Daily weights -FeNa calculated at 0.13 -Renal ultrasound Shows mild echogenic kidneys which can be seen in medical renal disease, no hydronephrosis, small amount of free fluid in the abdomen -s/p IV sodium bicarbonate drip and D5W -Trend BMP ID: Septic shock secondary to COVID-19 pneumonia, lactic acidosis -Infectious disease consulted, appreciate recommendations -Admit CXR showed bilateral air space opacities -Antibiotic therapy with Rocephin and vancomycin -Decadron 8 mg daily for 10 days -Per ID: Due to renal failure, not a candidate for remdesivir -S/p Actemra 04/10 -Contact/droplet precautions -f/u blood culture -Monitor WBC and temperature curve -Trend COVID-19 inflammatory markers Endo: DKA, h/o DM -S/p insulin drip -Avoid hypoglycemia -SSI and long-acting insulin -Accu-Cheks every 6 Heme: Leukocytosis, elevated Ddimer -BLE dopplar US shows no DVT -Trend CBC -Transfuse hemoglobin less than 7 -Lovenox subcu -Monitor for signs of bleeding -SCDs to BLE while in bed The high probability of a clinically significant, sudden or life threatening deterioration of the [multi] system(s) required my full and direct attention, intervention and personal management. The aggregate critical care time was [60] minutes. This time is in addition to time spent performing reported procedures but includes the following: [x] Data Review and interpretation [x] Patient assessment and monitoring of vital signs [x] Documentation [x] Medication orders and management Disposition Plan: icu Total Time Spent with Patient (Minutes): 60 History Interval history: This is a 77-year-old female with DM and ovarian cancer in remission s/p partial hysterectomy and oophorectomy presented to emergency department on 04/09 with altered mental status, weakness, shortness of breath over the past week with worsening symptoms on 04/09. Of note patient was not vaccinated for COVID-19. In the emergency department patient was very hypoxic on arrival and was placed on 100% nonrebreather, patient was tachypneic and hypotensive and initially was alert and oriented however became lethargic and was intubated for airway protection. Work-up in the emergency department revealed leukocytosis, acute kidney injury, hypokalemia, hyperglycemia. Patient was admitted to the hospitalist service with consults to [facility] with septic shock, COVID-19 PUI, hypokalemia, acute kidney injury, acute metabolic encephalopathy, bilateral pneumonia, lactic acidosis and acute hypoxic respiratory failure. Hospital course to date: 04/10: Patient noted to have myoclonic jerking this morning and was given 2 mg of Ativan which aborted the jerking. Neurology was consulted and MRI and EEG were ordered. Patient admits to [facility] for MRI at this time. Patient is hypoten sive and currently on Levophed, vasopressin and dobutamine. Nephrology consulted for renal failure. Remains on insulin drip and was placed on a bicarbonate drip this morning. Infectious disease consulted who added vancomycin and ordered follow-up labs. Dr. Craig had a conversation with family about prognosis and given multisystem organ failure. We will continue supportive care. 04/11/22-patient seen at bedside. T/V orally intubated. No purposeful response on assessment. make periodic jerking movement. EEG done today-will f/u with result. BICarb d/c -acidosis has improved-started on D5 15 NS. Reviewed specialist note and reces-renal US-no acute finding. Continue Pressors for MAPs >65. Wean as tolerated. Bicarb-d/c and start D5W. 04/12: Patient is following commands, nutrition consulted for tube feedings, PEEP decreased with possible PSV in the a.m., insulin drip discontinued and SS I/basal dose insulin started. CCM was updated son. Hospitalist Physical - Constitutional Vitals: Temp Pulse Resp BP Pulse Ox 98.8 F 93 H 25 H 113/58 96 04/12/22 12:00 04/12/22 14:30 04/12/22 14:30 04/12/22 14:30 04/12/22 14:30 General appearance: Present: no acute distress, well-nourished, obese - EENT Eyes: Absent: PERRL ENT: dentition normal - Neck Neck: Present: normal ROM - Respiratory Respiratory effort: normal Respiratory: bilateral: diminished - Cardiovascular Rhythm: regular Heart Sounds: Present: S1 & S2. Absent: systolic murmur, diastolic murmur - Extremities Extremities: no ischemia, pulses intact, pulses symmetrical, No edema, normal temperature, normal color, Full ROM Peripheral Pulses: within normal limits - Abdominal General gastrointestinal: soft, non-tender, non-distended, normal bowel sounds - Integumentary Integumentary: Present: warm, dry - Psychiatric Psychiatric: cooperative - Neurologic Neurologic: moves all extremities, other (follows commands, intact cough/gag) - Allied Health Allied health notes reviewed: nursing, RT, social work HEART Score - HEART Score Age: > 65 Risk factors: 1-2 risk factors Troponin: Troponin T < 0.010 ng/mL (0.00-0.029) 04/09/22 12:52 Troponin: < normal limit - Critical Actions Critical Actions: 4-6 pts:12-16.6% risk of adverse cardiac event. Should be admitted Results - Labs CBC & Chem 7: 04/12/22 00:01 04/12/22 13:18 Labs: Laboratory Last Values WBC 16.2 K/mm3 (4.5-11.0) H 04/12/22 00:01 RBC 4.08 M/mm3 (3.65-5.03) 04/12/22 00:01 Hgb 11.5 gm/dl (10.1-14.3) 04/12/22 00:01 Hct 34.7 % (30.3-42.9) 04/12/22 00:01 MCV 85 fl (79-97) 04/12/22 00:01 MCH 28 pg (28-32) 04/12/22 00:01 MCHC 33 % (30-34) 04/12/22 00:01 RDW 15.8 % (13.2-15.2) H 04/12/22 00:01 Plt Count 204 K/mm3 (140-440) 04/12/22 00:01 Lymph % (Auto) 5.7 % (13.4-35.0) L 04/12/22 00:01 [place] % (Auto) 4.5 % (0.0-7.3) 04/12/22 00:01 Eos % (Auto) 0.0 % (0.0-4.3) 04/12/22 00:01 Baso % (Auto) 0.2 % (0.0-1.8) 04/12/22 00:01 Lymph # (Auto) 0.9 K/mm3 (1.2-5.4) L 04/12/22 00:01 [place] # (Auto) 0.7 K/mm3 (0.0-0.8) 04/12/22 00:01 Eos # (Auto) 0.0 K/mm3 (0.0-0.4) 04/12/22 00:01 Baso # (Auto) 0.0 K/mm3 (0.0-0.1) 04/12/22 00:01 Add Manual Diff Complete 04/10/22 04:24 Total Counted 100 04/10/22 04:24 Seg Neutrophils % 89.6 % (40.0-70.0) H 04/12/22 00:01 Seg Neuts % (Manual) 94.0 % (40.0-70.0) H 04/10/22 04:24 Band Neutrophils % 0 % 04/10/22 04:24 Lymphocytes % (Manual) 3.0 % (13.4-35.0) L 04/10/22 04:24 Reactive Lymphs % (Man) 0 % 04/10/22 04:24 Monocytes % (Manual) 3.0 % (0.0-7.3) 04/10/22 04:24 Eosinophils % (Manual) 0 % (0.0-4.3) 04/10/22 04:24 Basophils % (Manual) 0 % (0.0-1.8) 04/10/22 04:24 Metamyelocytes % 0 % 04/10/22 04:24 Myelocytes % 0 % 04/10/22 04:24 Promyelocytes % 0 % 04/10/22 04:24 Blast Cells % 0 % 04/10/22 04:24 Nucleated RBC % Not Reportable 04/10/22 04:24 Seg Neutrophils # 14.6 K/mm3 (1.8-7.7) H 04/12/22 00:01 Seg Neutrophils # Man 15.4 K/mm3 (1.8-7.7) H 04/10/22 04:24 Band Neutrophils # 0.0 K/mm3 04/10/22 04:24 Lymphocytes # (Manual) 0.5 K/mm3 (1.2-5.4) L 04/10/22 04:24 Abs React Lymphs (Man) 0.0 K/mm3 04/10/22 04:24 Monocytes # (Manual) 0.5 K/mm3 (0.0-0.8) 04/10/22 04:24 Eosinophils # (Manual) 0.0 K/mm3 (0.0-0.4) 04/10/22 04:24 Basophils # (Manual) 0.0 K/mm3 (0.0-0.1) 04/10/22 04:24 Metamyelocytes # 0.0 K/mm3 04/10/22 04:24 Myelocytes # 0.0 K/mm3 04/10/22 04:24 Promyelocytes # 0.0 K/mm3 04/10/22 04:24 Blast Cells # 0.0 K/mm3 04/10/22 04:24 WBC Morphology Not Reportable 04/10/22 04:24 Hypersegmented Neuts Not Reportable 04/10/22 04:24 Hyposegmented Neuts Not Reportable 04/10/22 04:24 Hypogranular Neuts Not Reportable 04/10/22 04:24 Smudge Cells Not Reportable 04/10/22 04:24 Toxic Granulation Not Reportable 04/10/22 04:24 Toxic Vacuolation Not Reportable 04/10/22 04:24 Dohle Bodies Not Reportable 04/10/22 04:24 Pelger-Huet Anomaly Not Reportable 04/10/22 04:24 Aleja Rods Not Reportable 04/10/22 04:24 Platelet Estimate Consistent w auto 04/10/22 04:24 Clumped Platelets Not Reportable 04/10/22 04:24 Plt Clumps, EDTA Not Reportable 04/10/22 04:24 Large Platelets Not Reportable 04/10/22 04:24 Giant Platelets Rare 04/10/22 04:24 Platelet Satelliting Not Reportable 04/10/22 04:24 Plt Morphology Comment Not Reportable 04/10/22 04:24 RBC Morphology Normal 04/10/22 04:24 Dimorphic RBCs Not Reportable 04/10/22 04:24 Polychromasia Not Reportable 04/10/22 04:24 Hypochromasia Not Reportable 04/10/22 04:24 Poikilocytosis Not Reportable 04/10/22 04:24 Anisocytosis Not Reportable 04/10/22 04:24 Microcytosis Not Reportable 04/10/22 04:24 Macrocytosis Not Reportable 04/10/22 04:24 Spherocytes Not Reportable 04/10/22 04:24 Pappenheimer Bodies Not Reportable 04/10/22 04:24 Sickle Cells Not Reportable 04/10/22 04:24 Target Cells Not Reportable 04/10/22 04:24 Tear Drop Cells Not Reportable 04/10/22 04:24 Ovalocytes Not Reportable 04/10/22 04:24 Helmet Cells Not Reportable 04/10/22 04:24 Lao-[place] Bodies Not Reportable 04/10/22 04:24 [place]ell Rings Not Reportable 04/10/22 04:24 [place] Cells Not Reportable 04/10/22 04:24 Bite Cells Not Reportable 04/10/22 04:24 Crenated Cell Not Reportable 04/10/22 04:24 Elliptocytes Not Reportable 04/10/22 04:24 Acanthocytes (Spur) Not Reportable 04/10/22 04:24 Rouleaux Not Reportable 04/10/22 04:24 Hemoglobin C Crystals Not Reportable 04/10/22 04:24 Schistocytes Not Reportable 04/10/22 04:24 Malaria parasites Not Reportable 04/10/22 04:24 Allan Bodies Not Reportable 04/10/22 04:24 Hem Pathologist Commnt No 04/10/22 04:24 PT 14.5 Sec. (12.2-14.9) 04/09/22 12:52 INR 1.02 (0.87-1.13) 04/09/22 12:52 D-Dimer 1874.86 ng/mlDDU (0-234) H 04/12/22 04:00 ABG pH 7.513 pH Units (7.350-7.450) H 04/12/22 03:20 ABG pCO2 28.3 mm Hg 04/12/22 03:20 ABG pO2 61.7 mm Hg (80.0-90.0) L 04/12/22 03:20 ABG HCO3 22.2 mmol/L (20.0-26.0) 04/12/22 03:20 ABG O2 Saturation 94.2 % (95.0-99.0) L 04/12/22 03:20 ABG O2 Content 15.0 (0.0-44) 04/12/22 03:20 ABG Base Excess 0.1 mmol/L (-2.0-3.0) 04/12/22 03:20 ABG Hemoglobin 11.5 gm/dl (12.0-16.0) L 04/12/22 03:20 ABG Carboxyhemoglobin 1.0 % (0.0-5.0) 04/12/22 03:20 ABG Methemoglobin 0.6 % (0.0-1.5) 04/12/22 03:20 VBG pH 7.303 (7.320-7.420) L 04/09/22 12:52 Oxyhemoglobin 92.6 % (95.0-99.0) L 04/12/22 03:20 FiO2 50 % 04/12/22 03:20 Sodium 145 mmol/L (137-145) 04/12/22 13:18 Potassium 4.0 mmol/L (3.6-5.0) 04/12/22 13:18 Chloride 106.5 mmol/L (98-107) 04/12/22 13:18 Carbon Dioxide 23 mmol/L (22-30) 04/12/22 13:18 Anion Gap 20 mmol/L 04/12/22 13:18 BUN 38 mg/dL (7-17) H 04/12/22 13:18 Creatinine 2.1 mg/dL (0.6-1.2) H 04/12/22 13:18 Estimated GFR 28 ml/min 04/12/22 13:18 BUN/Creatinine Ratio 18 % 04/12/22 13:18 Glucose 144 mg/dL (65-100) H 04/12/22 13:18 POC Glucose 125 mg/dL (70-105) H 04/12/22 11:52 Lactic Acid 6.10 mmol/L (0.7-2.0) H* 04/09/22 Unknown Calcium 7.1 mg/dL (8.4-10.2) L 04/12/22 13:18 Phosphorus 3.10 mg/dL (2.5-4.5) D 04/11/22 03:58 Magnesium 2.00 mg/dL (1.7-2.3) 04/11/22 03:58 Ferritin 890.0 ng/mL (10.0-200.0) H 04/12/22 04:00 Total Bilirubin 0.60 mg/dL (0.1-1.2) 04/11/22 03:58 AST 106 units/L (5-40) H 04/11/22 03:58 ALT 60 units/L (7-56) H 04/11/22 03:58 Alkaline Phosphatase 54 units/L (35-129) 04/11/22 03:58 Ammonia 20.0 umol/L (25-60) L 04/09/22 12:52 Lactate Dehydrogenase 763 units/L (91-180) H 04/12/22 04:00 Troponin T < 0.010 ng/mL (0.00-0.029) 04/09/22 12:52 C-Reactive Protein 14.10 mg/dL (0.00-1.30) H 04/12/22 04:00 NT-Pro-B Natriuret Pep 101.1 pg/mL (0-900) 04/09/22 13:45 Total Protein 5.6 g/dL (6.3-8.2) L 04/11/22 03:58 Albumin 2.7 g/dL (3.9-5) L 04/11/22 03:58 Albumin/Globulin Ratio 0.9 % 04/11/22 03:58 Procalcitonin 3.13 ng/mL (<0.15) 04/10/22 11:47 TSH 1.560 mlU/mL (0.270-4.200) 04/09/22 12:52 Free T4 1.33 ng/dL (0.76-1.46) 04/09/22 12:52 Urine Color Yellow (Yellow) 04/09/22 13:24 Urine Turbidity Clear (Clear) 04/09/22 13:24 Urine pH 5.0 (5.0-7.0) 04/09/22 13:24 Ur Specific [place] 1.011 (1.003-1.030) 04/09/22 13:24 Urine Protein 30 mg/dl mg/dL (Negative) 04/09/22 13:24 Urine Glucose (UA) Neg mg/dL (Negative) 04/09/22 13:24 Urine Ketones 20 mg/dL (Negative) 04/09/22 13:24 Urine Blood Neg (Negative) 04/09/22 13:24 Urine Nitrite Neg (Negative) 04/09/22 13:24 Urine Bilirubin Neg (Negative) 04/09/22 13:24 Urine Urobilinogen 4.0 mg/dL (<2.0) 04/09/22 13:24 Ur Leukocyte Esterase Neg (Negative) 04/09/22 13:24 Urine WBC (Auto) 2.0 /HPF (0.0-6.0) 04/09/22 13:24 Urine RBC (Auto) < 1.0 /HPF (0.0-6.0) 04/09/22 13:24 U Epithel Cells (Auto) < 1.0 /HPF (0-13.0) 04/09/22 13:24 Urine Mucus Few /HPF 04/09/22 13:24 Urine Eosinophils None seen (None Seen) 04/10/22 14:50 Urine Total Volume 750 ml 04/11/22 11:23 Urine Creatinine 160.5 mg/dL (0.1-20.0) H 04/11/22 11:23 Ur Creatinine 24 Hour 1.2 (0.8-2.8) 04/11/22 11:23 Height (in) Not Reportable 04/11/22 11:23 Weight (lb) Not Reportable 04/11/22 11:23 Creatinine Clearance Not Reportable 04/11/22 11:23 Protein/Creatinin Ratio 0.77 04/10/22 14:50 Urine Sodium 17 mmol/L 04/10/22 14:50 Urine Total Protein 172 mg/dL (5-11.8) H 04/10/22 14:50 Random Vancomycin 11.9 ug/mL (0-40.0) 04/11/22 03:58 Urine Opiates Screen Presumptive negative 04/09/22 22:58 Urine Methadone Screen Presumptive negative 04/09/22 22:58 Ur Barbiturates Screen Presumptive negative 04/09/22 22:58 Ur Phencyclidine Scrn Presumptive negative 04/09/22 22:58 Ur Amphetamines Screen Presumptive negative 04/09/22 22:58 U Benzodiazepines Scrn Presumptive negative 04/09/22 22:58 Urine Cocaine Screen Presumptive negative 04/09/22 22:58 U Marijuana (THC) Screen Presumptive negative 04/09/22 22:58 Drugs of Abuse Note Disclamer 04/09/22 22:58 Coronavirus (PCR) Positive (Negative) A 04/09/22 13:02 Influenza A (RT-PCR) Negative (Negative) 04/09/22 14:15 Influenza B (RT-PCR) Negative (Negative) 04/09/22 14:15 Microbiology: Microbiology 04/09/22 12:52 Peripheral/Venous Blood Culture - Preliminary NO GROWTH AFTER 72 HOURS 04/09/22 12:52 Peripheral/Venous Blood Culture - Preliminary NO GROWTH AFTER 72 HOURS 04/09/22 21:33 Sputum - Endotracheal Wash Sputum Culture - Preliminary [place]/IV: Voiding Method Indwelling Catheter Active Medications - Current Medications Current Medications: Generic Name Dose Route Start Last Admin Trade Name Freq PRN Reason Stop Dose Admin Acetaminophen 650 mg 04/09/22 18:11 Acetaminophen 325 Mg Tab PO Q4H PRN Pain MILD(1-3)/Fever >100.5/CARCAMO Dexamethasone 8 mg 04/09/22 19:00 04/11/22 20:05 Dexamethasone 4 Mg/Ml Vial IV 04/18/22 19:01 8 mg Q24H JO ANN Administration Dextrose 0 ml 04/10/22 00:40 Dextrose 50% In Water (25gm) 50 Ml Syringe IV Q30MIN PRN Hypoglycemia Protocol Enoxaparin Sodium 30 mg 04/10/22 10:00 04/12/22 10:21 Enoxaparin 30 Mg/0.3 Ml Inj SUB-Q 30 mg QDAY JO ANN Administration Famotidine 10 mg 04/09/22 22:00 04/12/22 10:21 Famotidine 20 Mg/2 Ml Inj IV 10 mg BID JO ANN Administration NORepinephrine/NS 8 MG-250 ML 8 mg in 250 mls @ 3.75 mls/hr 04/09/22 16:00 04/11/22 12:01 Norepinephrine/Ns 8 Mg-250 Ml (Double Conc) IV 0 mcg/min TITRATE JO ANN 0 mls/hr Titration Protocol 2 MCG/MIN Vasopressin 20 unit/ Sodium 101 mls @ 9.09 mls/hr 04/09/22 18:00 04/12/22 08:42 Chloride IV 0 units/min TITR JO ANN 0 mls/hr Titration Protocol 0.03 UNITS/MIN Insulin Human Regular 100 100 mls @ 1 mls/hr 04/10/22 01:00 04/12/22 12:00 units/ Sodium Chloride IV 04/12/22 15:00 3 units/hr TITR JO ANN 3 mls/hr Titration Protocol 1 UNITS/HR Dopamine HCl/Dextrose 800 mg in 250 mls @ 3.116 mls/hr 04/10/22 03:00 04/10/22 18:44 Dopamine 800 Mg/D5w 250ml IV 0 mcg/kg/min TITR JO ANN 0 mls/hr Titration Protocol 2 MCG/KG/MIN Ceftriaxone Sodium 2 gm in 100 mls @ 200 mls/hr 04/11/22 12:00 04/12/22 11:55 Rocephin/Ns 2 Gm/100 Ml IV 04/15/22 12:29 200 mls/hr Q24H JO ANN Administration Dextrose/Sodium Chloride 1,000 mls @ 100 mls/hr 04/11/22 15:00 04/12/22 04:30 D5/0.45ns IV 04/12/22 15:00 100 mls/hr DIRECT JO ANN Administration Insulin Glargine 10 units 04/12/22 22:00 Insulin Glargine 100 Units/Ml SUB-Q QHS JO ANN Insulin Glargine 5 units 04/12/22 12:15 04/12/22 12:11 Insulin Glargine 100 Units/Ml SUB-Q 04/12/22 15:15 5 units ONCE@1215 JO ANN Administration Insulin Human Lispro 0 unit 04/12/22 12:00 04/12/22 12:12 Insulin Lispro 100 Unit/Ml SUB-Q Not Given Q6HR [facility] Protocol Morphine Sulfate 2 mg 04/09/22 18:11 Morphine 2 Mg/1 Ml Inj IV Q4H PRN Pain, Moderate (4-6) Ondansetron HCl 4 mg 04/09/22 18:11 Ondansetron 4 Mg/2 Ml Inj IV Q8H PRN Nausea And Vomiting Sodium Chloride 10 ml 04/09/22 22:00 04/12/22 10:21 Sodium Chloride 0.9% 10 Ml Flush Syringe IV 10 ml BID JO ANN Administration Sodium Chloride 10 ml 04/09/22 18:11 Sodium Chloride 0.9% 10 Ml Flush Syringe IV PRN PRN LINE FLUSH Nutrition/Malnutrition Assess - Dietary Evaluation Nutrition/Malnutrition Findings: Nutrition Notes Start: 04/12/22 10:07 Freq: Status: Active Protocol: Document 04/12/22 10:07 RYDER (Rec: 04/12/22 10:15 [facility] [id number]) Nutrition Notes Need for Assessment generated from: MD Order,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 license 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 Pt on vent support. Per records, pt had been feeling weak and SOB x 1 week [employer]. She is unvaccinated against COVID-19. Burn Absent Trauma Absent Minimum of two criteria No #1 Nutrition Diagnosis Inadequate oral intake Etiology mech ventilation As Evidenced by Signs and Symptoms pt NPO Is patient on ventilator? Yes Is Patient Ambulatory and/or Out of Bed No REE-([facility]-confined to bed) 9738.836 Calculation Used for Recommendations [facility] Additional Notes Pro needs 1.2-2g/k-166g/ day Fluid needs 1ml/kcal Nutrition Intervention Nutrition Support: Glucerna 1.2 at 55ml/hr with 100ml water flush q4h. Kcal 1,584 Protein (gm) 79 Carbohydrates (gm) 151 Fat (gm) 79 Fluid (mL) 1,063 Fiber (gm) 21 Goal #1 TF tolerance Goal #2 TF to meet at least 75% energy and pro needs Anticipated Discharge Needs: Unable to identify at this time Follow-Up By: 04/15/22 Additional Comments F/U: new TF, vent status, renal function, pressor support
--- NOTE | 2022-04-12 14:46 | Vascular Lab Report ---
DUPLEX DOPPLER LOWER EXTREMITY VEINS, BILATERAL INDICATION / CLINICAL INFORMATION: elevated ddimer. TECHNIQUE: Duplex doppler imaging was performed through the veins of both lower extremities using lluvia ous compression and other maneuvers. COMPARISON: Bilateral lower extremity venous Doppler 12/28/2015. FINDINGS: RIGHT COMMON FEMORAL VEIN: Negative. RIGHT FEMORAL VEIN: Negative. RIGHT POPLITEAL VEIN: Negative. RIGHT CALF VEINS: Negative. LEFT COMMON FEMORAL VEIN: Negative. LEFT FEMORAL VEIN: Negative. LEFT POPLITEAL VEIN: Negative. LEFT CALF VEINS: Negative. ADDITIONAL FINDINGS: Prominent subcutaneous edema of both lower extremities.. IMPRESSION: 1. Technically limited exam due to edema. No sonographic evidence for DVT in either lower extremity. Scribed by: Rafaela Ferrer RDMS, MILOT, DAISHAKS Scribed: 04/12/2022 1:40 PM I have reviewed the images, agree with this report, and edited this report as needed. Signer Name: Camilo Alcazar MD Signed: 04/12/2022 2:42 PM Workstation Name: [id number]
--- NOTE | 2022-04-12 16:17 | XRay Report ---
ABDOMEN 1 VIEW(S) INDICATION / CLINICAL INFORMATION: NGT placement. COMPARISON: None available. FINDINGS: TUBES / LINES: The nasogastric tube terminates in the proximal stomach. The sidehole terminates at th e GE junction. Recommend advancement by 5-10 cm. BOWEL GAS PATTERN: No significant abnormality. FREE AIR / EXTRALUMINAL GAS: None seen. ADDITIONAL FINDINGS: Cardiomegaly IMPRESSION: Recommend advancement of the nasogastric tube. Signer Name: Sumanth Tilley Jr, MD Signed: 04/12/2022 4:13 PM Workstation Name: [id number]
--- NOTE | 2022-04-12 17:13 | XRay Report ---
ABDOMEN 1 VIEW 04/12/2022 4:56 PM INDICATION / CLINICAL INFORMATION: NGT PLACEMENT. COMPARISON: Earlier today at 3:49 PM. FINDINGS: TUBES / LINES: The nasogastric tube has been advanced with the tip overlying the distal stomach and t he proximal sidehole well below the gastroesophageal junction. BOWEL GAS PATTERN: No significant abnormality. FREE AIR / EXTRALUMINAL GAS: None. ADDITIONAL FINDINGS: No significant additional findings. IMPRESSION: Nasogastric tube tip overlies the distal stomach. Signer Name: Lele Hutchins MD Signed: 04/12/2022 5:09 PM Workstation Name: [id number]
[2022-04-12] MEDS: fentaNYL 100 MCG/2 ML INJ IV PRN ×2 (17:16→19:49)
[2022-04-12] MEDS: dexAMETHasone 4 MG/ML VIAL IV SCH (18:27)
[2022-04-12] MEDS: INSULIN GLARGINE 100 UNITS/ML SUB-Q SCH (21:45)
[2022-04-12] MEDS: SENNOSIDES ORAL LIQD 8.8 MG/5 ML ORAL LIQD PO SCH (21:46)
[2022-04-13] MEDS: INSULIN LISPRO 100 UNIT/ML SUB-Q SCH ×4 (00:05→18:08)
[2022-04-13] MEDS: fentaNYL 100 MCG/2 ML INJ IV PRN ×7 (00:25→22:25)
[2022-04-13 04:27] LABS: ABG HCO3 23.8 mmol/L (20.0-26.0); ABG Methemoglobin 0.7 % (0.0-1.5); ABG Oxygen Saturation 93.2 % (95.0-99.0); ABG PCO2 32.2 mm Hg; ABG PH 7.487 pH Units (7.350-7.450); ABG PO2 62.1 mm Hg (80.0-90.0)
[2022-04-13 05:17] LABS: Hematocrit 35.3 % (30.3-42.9); Hemoglobin 11.5 gm/dl (10.1-14.3); Mean Corpuscular HGB Conc 33 % (30-34); Mean Corpuscular Volume 86 fl (79-97); Platelet Count 223 K/mm3 (140-440); Red Blood Count 4.12 M/mm3 (3.65-5.03); Red Cell Distribution Width 15.7 % (13.2-15.2)
[2022-04-13 05:28] LABS: Calcium 7.4 mg/dL (8.4-10.2)
[2022-04-13] MEDS: ENOXAPARIN 30 MG/0.3 ML INJ SUB-Q SCH (09:29)
[2022-04-13] MEDS: FAMOTIDINE 20 MG/2 ML INJ IV SCH ×2 (09:29→21:05)
[2022-04-13] MEDS ORDERED: VANCOMYCIN 1,250 MG in SODIUM CHLORIDE 0.9% 250ML 250 ML IV SCH (10:00)
--- NOTE | 2022-04-13 10:19 | Progress Note ---
Assessment and Plan Assessment and Plan COVID positive Sepsis Hypotension Diabetes Mellitus/DKA Acute Respiratory Failure Hypokalemia Metabolic Acidosis Hypophosphatemia Plan: Cr is trending down, BUN is rising likely 2/2 systemic steroids Ordered 24 hours Cr clearance Baseline serum creatinine unknown renal US -ve for obstruction COVID positive-as per ID Renally dose medications Obtain daily weights Monitor I/O's daily Will monitor renal function closely Subjective Date of service: 04/13/22 Principal diagnosis: ASHLEY Interval history: Making urine. NAD. Objective - Exam Narrative Exam: General appearance: Intubated - EENT Eyes: Absent: PERRL ENT: dentition normal - Neck Neck: Present: normal ROM - Respiratory Respiratory effort: On Vent Respiratory: bilateral: diminished - Cardiovascular Rhythm: regular Heart Sounds: Present: S1 & S2. Absent: systolic murmur, diastolic murmur - Extremities Extremities: no ischemia, pulses intact, pulses symmetrical, No edema, normal temperature, normal color, Full ROM Peripheral Pulses: within normal limits - Abdominal General gastrointestinal: soft, non-tender, non-distended, normal bowel sounds - Integumentary Integumentary: Present: warm, dry - Psychiatric Psychiatric: cooperative - Neurologic Neurologic: moves all extremities, other - Allied Health Allied health notes reviewed: nursing, RT, social work - Vital Signs Vital signs: Vital Signs - 12hr 04/12/22 04/13/22 04/13/22 23:00 00:00 01:00 Temperature 97.3 F L Pulse Rate 93 H 94 H 93 H Respiratory 30 H 31 H 30 H Rate Blood Pressure 118/66 118/62 116/66 O2 Sat by Pulse 94 93 93 Oximetry 04/13/22 04/13/22 04/13/22 02:00 03:00 04:00 Temperature 97.7 F Pulse Rate 97 H 98 H 91 H Respiratory 34 H 36 H Rate Blood Pressure 118/62 117/62 O2 Sat by Pulse 93 94 92 Oximetry 04/13/22 04/13/22 04/13/22 04:01 04:03 05:00 Temperature Pulse Rate 96 H 95 H 97 H Respiratory 28 H 32 H Rate Blood Pressure 117/62 121/58 O2 Sat by Pulse 93 92 92 Oximetry 04/13/22 04/13/22 04/13/22 06:00 07:00 07:15 Temperature Pulse Rate 94 H 92 H 90 Respiratory 32 H 28 H Rate Blood Pressure 126/57 134/67 134/67 O2 Sat by Pulse 93 92 93 Oximetry 04/13/22 04/13/22 04/13/22 08:00 09:00 10:00 Temperature Pulse Rate 91 H 92 H 94 H Respiratory 27 H 28 H 33 H Rate Blood Pressure 129/61 126/62 125/59 O2 Sat by Pulse 92 93 94 Oximetry - Lab 04/13/22 04:31 04/13/22 04:31 Most recent lab results ABG pH 7.487 pH Units (7.350-7.450) H 04/13/22 03:41 ABG pCO2 32.2 mm Hg 04/13/22 03:41 ABG pO2 62.1 mm Hg (80.0-90.0) L 04/13/22 03:41 ABG HCO3 23.8 mmol/L (20.0-26.0) 04/13/22 03:41 ABG O2 Saturation 93.2 % (95.0-99.0) L 04/13/22 03:41 Calcium 7.4 mg/dL (8.4-10.2) L 04/13/22 04:31 Phosphorus 3.10 mg/dL (2.5-4.5) D 04/11/22 03:58 Magnesium 2.00 mg/dL (1.7-2.3) 04/11/22 03:58 Urine Creatinine 160.5 mg/dL (0.1-20.0) H 04/11/22 11:23 Urine Sodium 17 mmol/L 04/10/22 14:50 Urine Total Protein 172 mg/dL (5-11.8) H 04/10/22 14:50 Medications & Allergies - Medications Allergies/Adverse Reactions: Allergies No Known Allergies Allergy (Verified 04/09/22 13:44) Active Medications: Generic Name Dose Route Start Last Admin Trade Name Freq PRN Reason Stop Dose Admin Acetaminophen 650 mg 04/09/22 18:11 Acetaminophen 325 Mg Tab PO Q4H PRN Pain MILD(1-3)/Fever >100.5/CARCAMO Dexamethasone 8 mg 04/09/22 19:00 04/12/22 18:27 Dexamethasone 4 Mg/Ml Vial IV 04/18/22 19:01 8 mg Q24H JO ANN Administration Dextrose 0 ml 04/10/22 00:40 Dextrose 50% In Water (25gm) 50 Ml Syringe IV Q30MIN PRN Hypoglycemia Protocol Enoxaparin Sodium 30 mg 04/10/22 10:00 04/13/22 09:29 Enoxaparin 30 Mg/0.3 Ml Inj SUB-Q 30 mg QDAY JO ANN Administration Famotidine 10 mg 04/09/22 22:00 04/13/22 09:29 Famotidine 20 Mg/2 Ml Inj IV 10 mg BID JO ANN Administration Fentanyl 50 mcg 04/12/22 16:36 04/13/22 06:16 Fentanyl 100 Mcg/2 Ml Inj IV 50 mcg Q2H PRN Administration Pain , Severe (7-10) NORepinephrine/NS 8 MG-250 ML 8 mg in 250 mls @ 3.75 mls/hr 04/09/22 16:00 04/11/22 12:01 Norepinephrine/Ns 8 Mg-250 Ml (Double Conc) IV 0 mcg/min TITRATE JO ANN 0 mls/hr Titration Protocol 2 MCG/MIN Vasopressin 20 unit/ Sodium 101 mls @ 9.09 mls/hr 04/09/22 18:00 04/12/22 08:42 Chloride IV 0 units/min TITR JO ANN 0 mls/hr Titration Protocol 0.03 UNITS/MIN Dopamine HCl/Dextrose 800 mg in 250 mls @ 3.116 mls/hr 04/10/22 03:00 03/24 07/15 18:44 Dopamine 800 Mg/D5w 250ml IV 0 mcg/kg/min TITR JO ANN 0 mls/hr Titration Protocol 2 MCG/KG/MIN Ceftriaxone Sodium 2 gm in 100 mls @ 200 mls/hr 04/11/22 12:00 04/12/22 11:55 Rocephin/Ns 2 Gm/100 Ml IV 04/15/22 12:29 200 mls/hr Q24H JO ANN Administration Vancomycin HCl 1,250 mg/ 275 mls @ 166.667 mls/hr 04/13/22 10:00 04/13/22 09:30 Sodium Chloride IV 04/13/22 14:00 166.667 mls/hr ONCE@1000 JO ANN Administration Insulin Glargine 10 units 04/12/22 22:00 04/12/22 21:45 Insulin Glargine 100 Units/Ml SUB-Q 10 units QHS JO ANN Administration Insulin Human Lispro 0 unit 04/12/22 12:00 04/13/22 06:36 Insulin Lispro 100 Unit/Ml SUB-Q 2 unit Q6HR JO ANN Administration Protocol Morphine Sulfate 2 mg 04/09/22 18:11 04/12/22 16:17 Morphine 2 Mg/1 Ml Inj IV 2 mg Q4H PRN Administration Pain, Moderate (4-6) Ondansetron HCl 4 mg 04/09/22 18:11 Ondansetron 4 Mg/2 Ml Inj IV Q8H PRN Nausea And Vomiting Senna 8.8 mg 04/12/22 22:00 04/12/22 21:46 Sennosides Oral Liqd 8.8 Mg/5 Ml Oral Liqd PO 8.8 mg QHS JO ANN Administration Sodium Chloride 10 ml 04/09/22 22:00 04/13/22 09:30 Sodium Chloride 0.9% 10 Ml Flush Syringe IV 10 ml BID JO ANN Administration Sodium Chloride 10 ml 04/09/22 18:11 Sodium Chloride 0.9% 10 Ml Flush Syringe IV PRN PRN LINE FLUSH
--- NOTE | 2022-04-13 10:43 | XRay Report ---
CHEST 1 VIEW 04/13/2022 10:10 AM INDICATION / CLINICAL INFORMATION: Respiratory failure. COMPARISON: 04/09/22. FINDINGS: SUPPORT DEVICES: The tip of the endotracheal tube is 4.8 cm above the sharon. The position of the lef t subclavian Port-A-Cath has not changed. There is a new nasogastric tube coursing the stomach with t he tip not seen. HEART / MEDIASTINUM: Moderate cardiomegaly is stable. LUNGS / PLEURA: There is moderate to moderately severe patchy parenchymal disease throughout both lindsey gs, most prominent in the right lower lung, significantly increased. There are possible minimal bilat eral pleural effusions. No pneumothorax. ADDITIONAL FINDINGS: No significant additional findings. IMPRESSION: Significant increase in bilateral parenchymal disease. Differential diagnosis includes as ymmetric pulmonary edema, bilateral pneumonia/aspiration or diffuse alveolar damage. Signer Name: Lele Hutchins MD Signed: 04/13/2022 10:39 AM Workstation Name: [id number]
--- NOTE | 2022-04-13 11:28 | Progress Note ---
Assessment and Plan 77 y/o female with multisystem organ failure, COVID positive 04/13/22: Renal function continues to improve and urine output improving as w ell. Given CXR findings will give lasix 40mg IV x1 today. Repeat CXR tomorrow. Off insulin drip and tolerating feeds. Hold on CT head today but if no improvement or worsening clinical state tomorrow, will repeat. Spoke with family on phone yesterday. Guarded prognosis. 04/12/22: Improved mental state. Feed patient today and stop IVF's and attempt to get off of insulin drip. Dropped Peep to 6. Wean FiO2 for sats >88%. PaO2 of 55 and greater are acceptable. Normal EF on echo. EEG showed diffuse slowing but mental state has improved. Will up date family. 04/11/22: Continue supportive measures. Getting EEG right now. Continue to wean Pressors for MAPs >65. if able to get to just one pressor, will place NG vs OG and attempt trickle feeds. Follow up echo. Down to 45%, good PaO2. Continue to wean, however mental state would preclude extubation at this time. Await renal eval but would like to stop bicarb now that acidosis is better, however needs free water but this could be given do OG/NG if end up placing, otherwise would just do D5W. If able to place tube and feed, then can attempt to get off insulin drip. Plan to update family after echo and EEG read. 1. Neuro-concern for seizures. EEG pending. Hold on long acting anti-epileptic therapy. Neurology consulted and has seen. patient is not on any continuous sedation at present 2. CV-Cardiovascular collapse on pressors (3). Could benefit from echo. Attempt volume resuscitation but no improvement. Continue pressors and wean as tolerated for MAPs >65 3. Pulm-intubated, not on sedation. COVID positive but oxygenation is stable. Per documentation, mainly intubated for airway protection given altered level of mental status. Not a candidate for Remdesivir and may not be a candidate for actemra. Continue steroids and low Tidal volume strategy for lung protection with permissive hypercapnea and lower PaO2 (55-60) if needed. 4. Renal- worsening renal function and decrease in urine output. Renal following. May need HD but would likely not tolerate and CRRT or CVVH is not available here. Worsening lactic acidosis as well. 5. GI-hold on feeds given pressor requirement, prophylactic therapy 6. Endo-continue insulin drip for now Overall prognosis is guarded to poor. Will discuss with immediate family today. CCT 31 minutes. Subjective Date of service: 04/13/22 Principal diagnosis: ASHLEY Interval history: Patient not following commands today. Eyes wide open. Will move head toward voice when name is called but thats about it. Still on 50% and 6 of peep. PaO2 was 62 this am. CXR shows bilateral alveolar infiltrates, likely pulmonary edema from volume resuscitation when patient was hypotensive. Objective Vital Signs - 12hr 04/13/22 04/13/22 04/13/22 00:00 01:00 02:00 Temperature 97.3 F L Pulse Rate 94 H 93 H 97 H Respiratory 31 H 30 H 34 H Rate Blood Pressure 118/62 116/66 118/62 O2 Sat by Pulse 93 93 93 Oximetry 04/13/22 04/13/22 04/13/22 03:00 04:00 04:01 Temperature 97.7 F Pulse Rate 98 H 91 H 96 H Respiratory 36 H 28 H Rate Blood Pressure 117/62 117/62 O2 Sat by Pulse 94 92 93 Oximetry 04/13/22 04/13/22 04/13/22 04:03 05:00 06:00 Temperature Pulse Rate 95 H 97 H 94 H Respiratory 32 H 32 H Rate Blood Pressure 121/58 126/57 O2 Sat by Pulse 92 92 93 Oximetry 04/13/22 04/13/22 04/13/22 07:00 07:15 08:00 Temperature Pulse Rate 92 H 90 91 H Respiratory 28 H 27 H Rate Blood Pressure 134/67 134/67 129/61 O2 Sat by Pulse 92 93 93 Oximetry 04/13/22 04/13/22 04/13/22 09:00 10:00 11:04 Temperature Pulse Rate 92 H 94 H 93 H Respiratory 28 H 33 H Rate Blood Pressure 126/62 125/59 O2 Sat by Pulse 93 94 92 Oximetry CBC and BMP: 04/13/22 04:31 04/13/22 04:31 ABG, PT/INR, D-dimer: ABG ABG pH 7.487 pH Units (7.350-7.450) H 04/13/22 03:41 ABG pCO2 32.2 mm Hg 04/13/22 03:41 ABG pO2 62.1 mm Hg (80.0-90.0) L 04/13/22 03:41 ABG O2 Saturation 93.2 % (95.0-99.0) L 04/13/22 03:41 PT/INR, D-dimer PT 14.5 Sec. (12.2-14.9) 04/09/22 12:52 INR 1.02 (0.87-1.13) 04/09/22 12:52 D-Dimer 1874.86 ng/mlDDU (0-234) H 04/12/22 04:00 Abnormal lab findings: Abnormal Labs 04/09/22 04/09/22 04/09/22 11:59 12:52 12:52 WBC RDW 15.3 H Lymph % (Auto) 8.4 L Lymph # (Auto) 0.7 L Seg Neutrophils % 84.6 H Seg Neuts % (Manual) Lymphocytes % (Manual) Seg Neutrophils # Seg Neutrophils # Man Lymphocytes # (Manual) D-Dimer ABG pH ABG pO2 ABG HCO3 ABG O2 Saturation ABG Base Excess ABG Hemoglobin VBG pH Oxyhemoglobin Sodium Potassium Chloride 112.7 H Carbon Dioxide 18 L BUN Creatinine 2.0 H Glucose 204 H POC Glucose 203 H Lactic Acid Calcium Phosphorus Magnesium Ferritin Total Bilirubin 1.30 H AST 47 H ALT Ammonia Lactate Dehydrogenase C-Reactive Protein Total Protein Albumin Urine Creatinine Urine Total Protein Coronavirus (PCR) 04/09/22 04/09/22 04/09/22 12:52 12:52 13:02 WBC RDW Lymph % (Auto) Lymph # (Auto) Seg Neutrophils % Seg Neuts % (Manual) Lymphocytes % (Manual) Seg Neutrophils # Seg Neutrophils # Man Lymphocytes # (Manual) D-Dimer ABG pH ABG pO2 ABG HCO3 ABG O2 Saturation ABG Base Excess ABG Hemoglobin VBG pH 7.303 L Oxyhemoglobin Sodium Potassium Chloride Carbon Dioxide BUN Creatinine Glucose POC Glucose Lactic Acid Calcium Phosphorus Magnesium Ferritin Total Bilirubin AST ALT Ammonia 20.0 L Lactate Dehydrogenase C-Reactive Protein Total Protein Albumin Urine Creatinine Urine Total Protein Coronavirus (PCR) Positive A 04/09/22 04/09/22 04/09/22 15:49 22:15 22:58 WBC RDW Lymph % (Auto) Lymph # (Auto) Seg Neutrophils % Seg Neuts % (Manual) Lymphocytes % (Manual) Seg Neutrophils # Seg Neutrophils # Man Lymphocytes # (Manual) D-Dimer ABG pH 7.097 L* ABG pO2 188.8 H ABG HCO3 7.4 L ABG O2 Saturation 99.1 H ABG Base Excess -20.7 L ABG Hemoglobin VBG pH Oxyhemoglobin Sodium Potassium Chloride 108.8 H Carbon Dioxide 10 L D BUN 20 H Creatinine 2.6 H Glucose 465 H POC Glucose Lactic Acid 2.70 H* Calcium 7.4 L Phosphorus Magnesium Ferritin Total Bilirubin AST ALT Ammonia Lactate Dehydrogenase C-Reactive Protein Total Protein Albumin Urine Creatinine Urine Total Protein Coronavirus (PCR) 04/09/22 04/09/22 04/10/22 23:19 Unknown 00:03 WBC RDW Lymph % (Auto) Lymph # (Auto) Seg Neutrophils % Seg Neuts % (Manual) Lymphocytes % (Manual) Seg Neutrophils # Seg Neutrophils # Man Lymphocytes # (Manual) D-Dimer ABG pH ABG pO2 ABG HCO3 ABG O2 Saturation ABG Base Excess ABG Hemoglobin VBG pH Oxyhemoglobin Sodium Potassium Chloride Carbon Dioxide BUN Creatinine Glucose POC Glucose 356 H Lactic Acid 7.50 H* 6.10 H* Calcium Phosphorus Magnesium Ferritin Total Bilirubin AST ALT Ammonia Lactate Dehydrogenase C-Reactive Protein Total Protein Albumin Urine Creatinine Urine Total Protein Coronavirus (PCR) 04/10/22 04/10/22 04/10/22 02:16 03:03 04:00 WBC RDW Lymph % (Auto) Lymph # (Auto) Seg Neutrophils % Seg Neuts % (Manual) Lymphocytes % (Manual) Seg Neutrophils # Seg Neutrophils # Man Lymphocytes # (Manual) D-Dimer ABG pH ABG pO2 ABG HCO3 ABG O2 Saturation ABG Base Excess ABG Hemoglobin VBG pH Oxyhemoglobin Sodium Potassium Chloride Carbon Dioxide BUN Creatinine Glucose POC Glucose 317 H 325 H 308 H Lactic Acid Calcium Phosphorus Magnesium Ferritin Total Bilirubin AST ALT Ammonia Lactate Dehydrogenase C-Reactive Protein Total Protein Albumin Urine Creatinine Urine Total Protein Coronavirus (PCR) 04/10/22 04/10/22 04/10/22 04:24 04:24 04:24 WBC 16.4 H RDW 16.2 H Lymph % (Auto) Lymph # (Auto) Seg Neutrophils % Seg Neuts % (Manual) 94.0 H Lymphocytes % (Manual) 3.0 L Seg Neutrophils # Seg Neutrophils # Man 15.4 H Lymphocytes # (Manual) 0.5 L D-Dimer ABG pH ABG pO2 ABG HCO3 ABG O2 Saturation ABG Base Excess ABG Hemoglobin VBG pH Oxyhemoglobin Sodium Potassium 2.9 L* D Chloride 116.1 H Carbon Dioxide 11 L BUN 19 H Creatinine 2.5 H Glucose 376 H POC Glucose Lactic Acid Calcium 6.5 L Phosphorus 1.40 L Magnesium 1.60 L Ferritin Total Bilirubin AST 107 H ALT 64 H Ammonia Lactate Dehydrogenase C-Reactive Protein Total Protein 5.5 L Albumin 2.8 L Urine Creatinine Urine Total Protein Coronavirus (PCR) 04/10/22 04/10/22 04/10/22 04:25 05:17 06:00 WBC RDW Lymph % (Auto) Lymph # (Auto) Seg Neutrophils % Seg Neuts % (Manual) Lymphocytes % (Manual) Seg Neutrophils # Seg Neutrophils # Man Lymphocytes # (Manual) D-Dimer ABG pH 7.095 L* ABG pO2 112.3 H ABG HCO3 8.7 L ABG O2 Saturation ABG Base Excess -19.7 L ABG Hemoglobin VBG pH Oxyhemoglobin Sodium Potassium Chloride Carbon Dioxide BUN Creatinine Glucose POC Glucose 343 H 278 H Lactic Acid Calcium Phosphorus Magnesium Ferritin Total Bilirubin AST ALT Ammonia Lactate Dehydrogenase C-Reactive Protein Total Protein Albumin Urine Creatinine Urine Total Protein Coronavirus (PCR) 04/10/22 04/10/22 04/10/22 06:53 07:54 08:58 WBC RDW Lymph % (Auto) Lymph # (Auto) Seg Neutrophils % Seg Neuts % (Manual) Lymphocytes % (Manual) Seg Neutrophils # Seg Neutrophils # Man Lymphocytes # (Manual) D-Dimer ABG pH ABG pO2 ABG HCO3 ABG O2 Saturation ABG Base Excess ABG Hemoglobin VBG pH Oxyhemoglobin Sodium Potassium Chloride Carbon Dioxide BUN Creatinine Glucose POC Glucose 262 H 245 H 215 H Lactic Acid Calcium Phosphorus Magnesium Ferritin Total Bilirubin AST ALT Ammonia Lactate Dehydrogenase C-Reactive Protein Total Protein Albumin Urine Creatinine Urine Total Protein Coronavirus (PCR) 04/10/22 04/10/22 04/10/22 10:12 10:51 11:47 WBC RDW Lymph % (Auto) Lymph # (Auto) Seg Neutrophils % Seg Neuts % (Manual) Lymphocytes % (Manual) Seg Neutrophils # Seg Neutrophils # Man Lymphocytes # (Manual) D-Dimer ABG pH ABG pO2 ABG HCO3 ABG O2 Saturation ABG Base Excess ABG Hemoglobin VBG pH Oxyhemoglobin Sodium 148 H Potassium 3.4 L Chloride 116.7 H Carbon Dioxide 15 L BUN 22 H Creatinine 2.7 H Glucose 190 H POC Glucose 206 H 176 H Lactic Acid Calcium 6.9 L Phosphorus Magnesium Ferritin Total Bilirubin AST ALT Ammonia Lactate Dehydrogenase C-Reactive Protein Total Protein Albumin Urine Creatinine Urine Total Protein Coronavirus (PCR) 04/10/22 04/10/22 04/10/22 11:47 11:47 12:02 WBC RDW Lymph % (Auto) Lymph # (Auto) Seg Neutrophils % Seg Neuts % (Manual) Lymphocytes % (Manual) Seg Neutrophils # Seg Neutrophils # Man Lymphocytes # (Manual) D-Dimer ABG pH ABG pO2 ABG HCO3 ABG O2 Saturation ABG Base Excess ABG Hemoglobin VBG pH Oxyhemoglobin Sodium Potassium Chloride Carbon Dioxide BUN Creatinine Glucose POC Glucose 178 H Lactic Acid Calcium Phosphorus Magnesium Ferritin 1218.0 H Total Bilirubin AST ALT Ammonia Lactate Dehydrogenase 482 H C-Reactive Protein 11.30 H Total Protein Albumin Urine Creatinine Urine Total Protein Coronavirus (PCR) 04/10/22 04/10/22 04/10/22 13:13 13:58 14:50 WBC RDW Lymph % (Auto) Lymph # (Auto) Seg Neutrophils % Seg Neuts % (Manual) Lymphocytes % (Manual) Seg Neutrophils # Seg Neutrophils # Man Lymphocytes # (Manual) D-Dimer ABG pH ABG pO2 ABG HCO3 ABG O2 Saturation ABG Base Excess ABG Hemoglobin VBG pH Oxyhemoglobin Sodium Potassium Chloride Carbon Dioxide BUN Creatinine Glucose POC Glucose 160 H 150 H Lactic Acid Calcium Phosphorus Magnesium Ferritin Total Bilirubin AST ALT Ammonia Lactate Dehydrogenase C-Reactive Protein Total Protein Albumin Urine Creatinine 224.2 H Urine Total Protein 172 H Coronavirus (PCR) 04/10/22 04/10/22 04/10/22 15:24 16:38 16:56 WBC RDW Lymph % (Auto) Lymph # (Auto) Seg Neutrophils % Seg Neuts % (Manual) Lymphocytes % (Manual) Seg Neutrophils # Seg Neutrophils # Man Lymphocytes # (Manual) D-Dimer ABG pH ABG pO2 ABG HCO3 ABG O2 Saturation ABG Base Excess ABG Hemoglobin VBG pH Oxyhemoglobin Sodium Potassium Chloride Carbon Dioxide BUN Creatinine Glucose POC Glucose 140 H 154 H 149 H Lactic Acid Calcium Phosphorus Magnesium Ferritin Total Bilirubin AST ALT Ammonia Lactate Dehydrogenase C-Reactive Protein Total Protein Albumin Urine Creatinine Urine Total Protein Coronavirus (PCR) 04/10/22 04/10/22 04/10/22 18:21 19:21 20:02 WBC RDW Lymph % (Auto) Lymph # (Auto) Seg Neutrophils % Seg Neuts % (Manual) Lymphocytes % (Manual) Seg Neutrophils # Seg Neutrophils # Man Lymphocytes # (Manual) D-Dimer ABG pH ABG pO2 ABG HCO3 ABG O2 Saturation ABG Base Excess ABG Hemoglobin VBG pH Oxyhemoglobin Sodium Potassium Chloride Carbon Dioxide BUN Creatinine Glucose POC Glucose 141 H 126 H 139 H Lactic Acid Calcium Phosphorus Magnesium Ferritin Total Bilirubin AST ALT Ammonia Lactate Dehydrogenase C-Reactive Protein Total Protein Albumin Urine Creatinine Urine Total Protein Coronavirus (PCR) 04/10/22 04/10/22 04/10/22 21:04 21:58 22:20 WBC RDW Lymph % (Auto) Lymph # (Auto) Seg Neutrophils % Seg Neuts % (Manual) Lymphocytes % (Manual) Seg Neutrophils # Seg Neutrophils # Man Lymphocytes # (Manual) D-Dimer ABG pH ABG pO2 ABG HCO3 ABG O2 Saturation ABG Base Excess ABG Hemoglobin VBG pH Oxyhemoglobin Sodium Potassium Chloride 114.5 H Carbon Dioxide 17 L BUN 24 H Creatinine 2.5 H Glucose 165 H POC Glucose 144 H 161 H Lactic Acid Calcium 6.5 L Phosphorus Magnesium Ferritin Total Bilirubin AST ALT Ammonia Lactate Dehydrogenase C-Reactive Protein Total Protein Albumin Urine Creatinine Urine Total Protein Coronavirus (PCR) 04/10/22 04/11/22 04/11/22 23:02 00:08 01:05 WBC RDW Lymph % (Auto) Lymph # (Auto) Seg Neutrophils % Seg Neuts % (Manual) Lymphocytes % (Manual) Seg Neutrophils # Seg Neutrophils # Man Lymphocytes # (Manual) D-Dimer ABG pH ABG pO2 ABG HCO3 ABG O2 Saturation ABG Base Excess ABG Hemoglobin VBG pH Oxyhemoglobin Sodium Potassium Chloride Carbon Dioxide BUN Creatinine Glucose POC Glucose 160 H 148 H 156 H Lactic Acid Calcium Phosphorus Magnesium Ferritin Total Bilirubin AST ALT Ammonia Lactate Dehydrogenase C-Reactive Protein Total Protein Albumin Urine Creatinine Urine Total Protein Coronavirus (PCR) 04/11/22 04/11/22 04/11/22 01:30 02:05 03:04 WBC RDW Lymph % (Auto) Lymph # (Auto) Seg Neutrophils % Seg Neuts % (Manual) Lymphocytes % (Manual) Seg Neutrophils # Seg Neutrophils # Man Lymphocytes # (Manual) D-Dimer ABG pH ABG pO2 75.1 L ABG HCO3 17.2 L ABG O2 Saturation ABG Base Excess -5.8 L ABG Hemoglobin 11.5 L VBG pH Oxyhemoglobin Sodium Potassium Chloride Carbon Dioxide BUN Creatinine Glucose POC Glucose 150 H 168 H Lactic Acid Calcium Phosphorus Magnesium Ferritin Total Bilirubin AST ALT Ammonia Lactate Dehydrogenase C-Reactive Protein Total Protein Albumin Urine Creatinine Urine Total Protein Coronavirus (PCR) 04/11/22 04/11/22 04/11/22 03:58 03:58 04:05 WBC 12.2 H RDW 15.7 H Lymph % (Auto) Lymph # (Auto) Seg Neutrophils % Seg Neuts % (Manual) Lymphocytes % (Manual) Seg Neutrophils # Seg Neutrophils # Man Lymphocytes # (Manual) D-Dimer ABG pH ABG pO2 ABG HCO3 ABG O2 Saturation ABG Base Excess ABG Hemoglobin VBG pH Oxyhemoglobin Sodium 147 H Potassium Chloride 114.2 H Carbon Dioxide 19 L BUN 26 H Creatinine 2.5 H Glucose 154 H POC Glucose 151 H Lactic Acid Calcium 6.8 L Phosphorus Magnesium Ferritin Total Bilirubin AST 106 H ALT 60 H Ammonia Lactate Dehydrogenase C-Reactive Protein Total Protein 5.6 L Albumin 2.7 L Urine Creatinine Urine Total Protein Coronavirus (PCR) 04/11/22 04/11/22 04/11/22 05:14 06:19 08:23 WBC RDW Lymph % (Auto) Lymph # (Auto) Seg Neutrophils % Seg Neuts % (Manual) Lymphocytes % (Manual) Seg Neutrophils # Seg Neutrophils # Man Lymphocytes # (Manual) D-Dimer ABG pH ABG pO2 ABG HCO3 ABG O2 Saturation ABG Base Excess ABG Hemoglobin VBG pH Oxyhemoglobin Sodium Potassium Chloride Carbon Dioxide BUN Creatinine Glucose POC Glucose 134 H 144 H 143 H Lactic Acid Calcium Phosphorus Magnesium Ferritin Total Bilirubin AST ALT Ammonia Lactate Dehydrogenase C-Reactive Protein Total Protein Albumin Urine Creatinine Urine Total Protein Coronavirus (PCR) 04/11/22 04/11/22 04/11/22 09:28 10:06 11:23 WBC RDW Lymph % (Auto) Lymph # (Auto) Seg Neutrophils % Seg Neuts % (Manual) Lymphocytes % (Manual) Seg Neutrophils # Seg Neutrophils # Man Lymphocytes # (Manual) D-Dimer ABG pH ABG pO2 ABG HCO3 ABG O2 Saturation ABG Base Excess ABG Hemoglobin VBG pH Oxyhemoglobin Sodium Potassium Chloride Carbon Dioxide BUN Creatinine Glucose POC Glucose 138 H Lactic Acid Calcium Phosphorus Magnesium Ferritin Total Bilirubin AST ALT Ammonia Lactate Dehydrogenase C-Reactive Protein Total Protein Albumin Urine Creatinine 161.8 H 160.5 H Urine Total Protein Coronavirus (PCR) 04/11/22 04/11/22 04/12/22 15:59 23:58 00:01 WBC 16.2 H RDW 15.8 H Lymph % (Auto) 5.7 L Lymph # (Auto) 0.9 L Seg Neutrophils % 89.6 H Seg Neuts % (Manual) Lymphocytes % (Manual) Seg Neutrophils # 14.6 H Seg Neutrophils # Man Lymphocytes # (Manual) D-Dimer ABG pH ABG pO2 ABG HCO3 ABG O2 Saturation ABG Base Excess ABG Hemoglobin VBG pH Oxyhemoglobin Sodium Potassium Chloride Carbon Dioxide BUN Creatinine Glucose POC Glucose 166 H 150 H Lactic Acid Calcium Phosphorus Magnesium Ferritin Total Bilirubin AST ALT Ammonia Lactate Dehydrogenase C-Reactive Protein Total Protein Albumin Urine Creatinine Urine Total Protein Coronavirus (PCR) 04/12/22 04/12/22 04/12/22 03:20 04:00 04:00 WBC RDW Lymph % (Auto) Lymph # (Auto) Seg Neutrophils % Seg Neuts % (Manual) Lymphocytes % (Manual) Seg Neutrophils # Seg Neutrophils # Man Lymphocytes # (Manual) D-Dimer 1874.86 H ABG pH 7.513 H ABG pO2 61.7 L ABG HCO3 ABG O2 Saturation 94.2 L ABG Base Excess ABG Hemoglobin 11.5 L VBG pH Oxyhemoglobin 92.6 L Sodium Potassium Chloride Carbon Dioxide BUN Creatinine Glucose POC Glucose Lactic Acid Calcium Phosphorus Magnesium Ferritin 890.0 H Total Bilirubin AST ALT Ammonia Lactate Dehydrogenase C-Reactive Protein Total Protein Albumin Urine Creatinine Urine Total Protein Coronavirus (PCR) 04/12/22 04/12/22 04/12/22 04:00 04:20 04:59 WBC RDW Lymph % (Auto) Lymph # (Auto) Seg Neutrophils % Seg Neuts % (Manual) Lymphocytes % (Manual) Seg Neutrophils # Seg Neutrophils # Man Lymphocytes # (Manual) D-Dimer ABG pH ABG pO2 ABG HCO3 ABG O2 Saturation ABG Base Excess ABG Hemoglobin VBG pH Oxyhemoglobin Sodium 146 H Potassium Chloride 108.0 H Carbon Dioxide BUN 38 H Creatinine 2.3 H Glucose 173 H POC Glucose 146 H Lactic Acid Calcium 6.7 L Phosphorus Magnesium Ferritin Total Bilirubin AST ALT Ammonia Lactate Dehydrogenase 763 H C-Reactive Protein 14.10 H Total Protein Albumin Urine Creatinine Urine Total Protein Coronavirus (PCR) 04/12/22 04/12/22 04/12/22 06:05 10:15 11:52 WBC RDW Lymph % (Auto) Lymph # (Auto) Seg Neutrophils % Seg Neuts % (Manual) Lymphocytes % (Manual) Seg Neutrophils # Seg Neutrophils # Man Lymphocytes # (Manual) D-Dimer ABG pH ABG pO2 ABG HCO3 ABG O2 Saturation ABG Base Excess ABG Hemoglobin VBG pH Oxyhemoglobin Sodium Potassium Chloride Carbon Dioxide BUN Creatinine Glucose POC Glucose 190 H 122 H 125 H Lactic Acid Calcium Phosphorus Magnesium Ferritin Total Bilirubin AST ALT Ammonia Lactate Dehydrogenase C-Reactive Protein Total Protein Albumin Urine Creatinine Urine Total Protein Coronavirus (PCR) 04/12/22 04/13/22 04/13/22 13:18 03:41 04:31 WBC RDW Lymph % (Auto) Lymph # (Auto) Seg Neutrophils % Seg Neuts % (Manual) Lymphocytes % (Manual) Seg Neutrophils # Seg Neutrophils # Man Lymphocytes # (Manual) D-Dimer ABG pH 7.487 H ABG pO2 62.1 L ABG HCO3 ABG O2 Saturation 93.2 L ABG Base Excess ABG Hemoglobin 11.9 L VBG pH Oxyhemoglobin 91.5 L Sodium Potassium Chloride Carbon Dioxide BUN 38 H 42 H Creatinine 2.1 H 1.9 H Glucose 144 H 204 H POC Glucose Lactic Acid Calcium 7.1 L 7.4 L Phosphorus Magnesium Ferritin Total Bilirubin AST ALT Ammonia Lactate Dehydrogenase C-Reactive Protein Total Protein Albumin Urine Creatinine Urine Total Protein Coronavirus (PCR) 04/13/22 04:31 WBC 13.9 H RDW 15.7 H Lymph % (Auto) Lymph # (Auto) Seg Neutrophils % Seg Neuts % (Manual) Lymphocytes % (Manual) Seg Neutrophils # Seg Neutrophils # Man Lymphocytes # (Manual) D-Dimer ABG pH ABG pO2 ABG HCO3 ABG O2 Saturation ABG Base Excess ABG Hemoglobin VBG pH Oxyhemoglobin Sodium Potassium Chloride Carbon Dioxide BUN Creatinine Glucose POC Glucose Lactic Acid Calcium Phosphorus Magnesium Ferritin Total Bilirubin AST ALT Ammonia Lactate Dehydrogenase C-Reactive Protein Total Protein Albumin Urine Creatinine Urine Total Protein Coronavirus (PCR)
[2022-04-13] MEDS ORDERED: FUROSEMIDE 40 MG/4 ML INJ IV ONE (12:20)
[2022-04-13] MEDS: cefTRIAXone/NS 2 GM/100 ML 2 GM/100 ML BAG IV SCH (13:00)
--- NOTE | 2022-04-13 17:11 | Progress Note ---
Assessment and Plan Assessment and plan: This is a 77-year-old female with DM and ovarian cancer in remission admitted for septic shock secondary to COVID-19 pneumonia, acute kidney injury, acute hypoxic respiratory failure and currently in multiorgan failure Neuro: Acute metabolic encephalopathy, myoclonic jerks -Myoclonic jerking aborted with Ativan -Avoid delirium -Reorientation as needed -Maintain sleep-wake cycle -aspiration/seizure precautions -Neurology consulted, appreciate recommendations -Initial CT head showed no acute abnormality -EEG pending Cardiac: NAD -Blood pressure monitoring per protocol -s/p vasopressor support with Levophed, dobutamine, vasopressin -MAP goal greater than 65 -Echocardiogram shows LVEF 55 to 60%, normal bivalve function, mildly dilated right ventricle Respiratory: Acute hypoxic respiratory failure -CCM consulted, appreciate recommendations -Intubated in the emergency department 04/09 with 7.00 ETT at 22 the lips -A.m. vent settings: Assist-control rate 20, tidal volume 450, PEEP 6, FiO2 50% -See RT notes for titration -A.m. ABG and CXR noted -VAP bundle -SPO2 monitoring GI: Transaminitis -24 hours + 361ml -PPI -NTR consult for tube feedings -BR: Colace : Acute kidney injury likely secondary to ischemic acute tubular necrosis -Nephrology consulted, appreciate recommendations -Strict intake and output -Renally dose medications -Avoid nephrotoxic medications -Daily weights -FeNa calculated at 0.13 -Renal ultrasound Shows mild echogenic kidneys which can be seen in medical renal disease, no hydronephrosis, small amount of free fluid in the abdomen -s/p IV sodium bicarbonate drip and D5W -Trend BMP -lasix x1 ID: Septic shock secondary to COVID-19 pneumonia, lactic acidosis -Infectious disease consulted, appreciate recommendations -Admit CXR showed bilateral air space opacities -Antibiotic therapy with Rocephin and vancomycin -Decadron 8 mg daily for 10 days -Per ID: Due to renal failure, not a candidate for remdesivir -S/p Actemra 04/10 -Contact/droplet precautions -f/u blood culture -Monitor WBC and temperature curve -Trend COVID-19 inflammatory markers Endo: DKA, h/o DM -S/p insulin drip -Avoid hypoglycemia -SSI and long-acting insulin -Accu-Cheks every 6 Heme: Leukocytosis, elevated Ddimer -BLE dopplar US shows no DVT -Trend CBC -Transfuse hemoglobin less than 7 -Lovenox subcu -Monitor for signs of bleeding -SCDs to BLE while in bed The high probability of a clinically significant, sudden or life threatening deterioration of the [multi] system(s) required my full and direct attention, intervention and personal management. The aggregate critical care time was [60] minutes. This time is in addition to time spent performing reported procedures but includes the following: [x] Data Review and interpretation [x] Patient assessment and monitoring of vital signs [x] Documentation [x] Medication orders and management Disposition Plan: icu Total Time Spent with Patient (Minutes): 60 History Interval history: This is a 77-year-old female with DM and ovarian cancer in remission s/p partial hysterectomy and oophorectomy presented to emergency department on 04/09 with altered mental status, weakness, shortness of breath over the past week with worsening symptoms on 04/09. Of note patient was not vaccinated for COVID-19. In the emergency department patient was very hypoxic on arrival and was placed on 100% nonrebreather, patient was tachypneic and hypotensive and initially was alert and oriented however became lethargic and was intubated for airway protection. Work-up in the emergency department revealed leukocytosis, acute kidney injury, hypokalemia, hyperglycemia. Patient was admitted to the hospitalist service with consults to [facility] with septic shock, COVID-19 PUI, hypokalemia, acute kidney injury, acute metabolic encephalopathy, bilateral pneumonia, lactic acidosis and acute hypoxic respiratory failure. Hospital course to date: 04/10: Patient noted to have myoclonic jerking this morning and was given 2 mg of Ativan which aborted the jerking. Neurology was consulted and MRI and EEG were ordered. Patient admits to unstable for MRI at this time. Patient is hypotensive and currently on Levophed, vasopressin and dobutamine. Nephrology consulted for renal failure. Remains on insulin drip and was placed on a bicarbonate drip this morning. Infectious disease consulted who added vancomycin and ordered follow-up labs. Dr. Craig had a conversation with family about prognosis and given multisystem organ failure. We will continue supportive care. 04/11/22-patient seen at bedside. T/V orally intubated. No purposeful response on assessment. make periodic jerking movement. EEG done today-will f/u with result. BICarb d/c -acidosis has improved-started on D5 1 NS. Reviewed specialist note and reces-renal US-no acute finding. Continue Pressors for MAPs >65. Wean as tolerated. Bicarb-d/c and start D5W. 04/12: Patient is following commands, nutrition consulted for tube feedings, PEEP decreased with possible PSV in the a.m., insulin drip discontinued and SSI/basal dose insulin started. [facility] will update son. 04/13: Renal function continues to improve, intermittently following commands, [facility] ordered 1 x 40 mg of Lasix repeat CXR in the a.m. Tolerating tube feedings. Hospitalist Physical - Constitutional Vitals: Temp Pulse Resp BP Pulse Ox 98.0 F 103 H 39 H 126/59 92 04/13/22 12:00 04/13/22 16:00 04/13/22 15:00 04/13/22 15:03 04/13/22 15:03 General appearance: Present: no acute distress, well-nourished, obese - EENT Eyes: Absent: PERRL (jennifer) - Neck Neck: Present: normal ROM. Absent: masses or JVD, cervical LAD - Respiratory Respiratory effort: normal Respiratory: bilateral: diminished - Cardiovascular Rhythm: regular Heart Sounds: Present: S1 & S2. Absent: systolic murmur, diastolic murmur - Extremities Extremities: no ischemia, pulses intact, pulses symmetrical, No edema, normal temperature, normal color Peripheral Pulses: within normal limits - Abdominal General gastrointestinal: soft, non-tender, non-distended, normal bowel sounds - Integumentary Integumentary: Present: warm, dry - Psychiatric Psychiatric: other - Neurologic Neurologic: other (Intermittently follows commands, intact cough/gag, unable to assess pupils due to cataract) - Allied Health Allied health notes reviewed: nursing, RT HEART Score - HEART Score Age: > 65 Risk factors: 1-2 risk factors Troponin: Troponin T < 0.010 ng/mL (0.00-0.029) 04/09/22 12:52 Troponin: < normal limit - Critical Actions Critical Actions: 4-6 pts:12-16.6% risk of adverse cardiac event. Should be admitted Results - Labs CBC & Chem 7: 04/13/22 04:31 04/13/22 04:31 Labs: Laboratory Last Values WBC 13.9 K/mm3 (4.5-11.0) H 04/13/22 04:31 RBC 4.12 M/mm3 (3.65-5.03) 04/13/22 04:31 Hgb 11.5 gm/dl (10.1-14.3) 04/13/22 04:31 Hct 35.3 % (30.3-42.9) 04/13/22 04:31 MCV 86 fl (79-97) 04/13/22 04:31 MCH 28 pg (28-32) 04/13/22 04:31 MCHC 33 % (30-34) 04/13/22 04:31 RDW 15.7 % (13.2-15.2) H 04/13/22 04:31 Plt Count 223 K/mm3 (140-440) 04/13/22 04:31 Lymph % (Auto) 5.7 % (13.4-35.0) L 04/12/22 00:01 Smyth % (Auto) 4.5 % (0.0-7.3) 04/12/22 00:01 Eos % (Auto) 0.0 % (0.0-4.3) 04/12/22 00:01 Baso % (Auto) 0.2 % (0.0-1.8) 04/12/22 00:01 Lymph # (Auto) 0.9 K/mm3 (1.2-5.4) L 04/12/22 00:01 Smyth # (Auto) 0.7 K/mm3 (0.0-0.8) 04/12/22 00:01 Eos # (Auto) 0.0 K/mm3 (0.0-0.4) 04/12/22 00:01 Baso # (Auto) 0.0 K/mm3 (0.0-0.1) 04/12/22 00:01 Add Manual Diff Complete 04/10/22 04:24 Total Counted 100 04/10/22 04:24 Seg Neutrophils % 89.6 % (40.0-70.0) H 04/12/22 00:01 Seg Neuts % (Manual) 94.0 % (40.0-70.0) H 04/10/22 04:24 Band Neutrophils % 0 % 04/10/22 04:24 Lymphocytes % (Manual) 3.0 % (13.4-35.0) L 04/10/22 04:24 Reactive Lymphs % (Man) 0 % 04/10/22 04:24 Monocytes % (Manual) 3.0 % (0.0-7.3) 04/10/22 04:24 Eosinophils % (Manual) 0 % (0.0-4.3) 04/10/22 04:24 Basophils % (Manual) 0 % (0.0-1.8) 04/10/22 04:24 Metamyelocytes % 0 % 04/10/22 04:24 Myelocytes % 0 % 04/10/22 04:24 Promyelocytes % 0 % 04/10/22 04:24 Blast Cells % 0 % 04/10/22 04:24 Nucleated RBC % Not Reportable 04/10/22 04:24 Seg Neutrophils # 14.6 K/mm3 (1.8-7.7) H 04/12/22 00:01 Seg Neutrophils # Man 15.4 K/mm3 (1.8-7.7) H 04/10/22 04:24 Band Neutrophils # 0.0 K/mm3 04/10/22 04:24 Lymphocytes # (Manual) 0.5 K/mm3 (1.2-5.4) L 04/10/22 04:24 Abs React Lymphs (Man) 0.0 K/mm3 04/10/22 04:24 Monocytes # (Manual) 0.5 K/mm3 (0.0-0.8) 04/10/22 04:24 Eosinophils # (Manual) 0.0 K/mm3 (0.0-0.4) 04/10/22 04:24 Basophils # (Manual) 0.0 K/mm3 (0.0-0.1) 04/10/22 04:24 Metamyelocytes # 0.0 K/mm3 04/10/22 04:24 Myelocytes # 0.0 K/mm3 04/10/22 04:24 Promyelocytes # 0.0 K/mm3 04/10/22 04:24 Blast Cells # 0.0 K/mm3 04/10/22 04:24 WBC Morphology Not Reportable 04/10/22 04:24 Hypersegmented Neuts Not Reportable 04/10/22 04:24 Hyposegmented Neuts Not Reportable 04/10/22 04:24 Hypogranular Neuts Not Reportable 04/10/22 04:24 Smudge Cells Not Reportable 04/10/22 04:24 Toxic Granulation Not Reportable 04/10/22 04:24 Toxic Vacuolation Not Reportable 04/10/22 04:24 Dohle Bodies Not Reportable 04/10/22 04:24 Pelger-Huet Anomaly Not Reportable 04/10/22 04:24 Aleja Rods Not Reportable 04/10/22 04:24 Platelet Estimate Consistent w auto 04/10/22 04:24 Clumped Platelets Not Reportable 04/10/22 04:24 Plt Clumps, EDTA Not Reportable 04/10/22 04:24 Large Platelets Not Reportable 04/10/22 04:24 Giant Platelets Rare 04/10/22 04:24 Platelet Satelliting Not Reportable 04/10/22 04:24 Plt Morphology Comment Not Reportable 04/10/22 04:24 RBC Morphology Normal 04/10/22 04:24 Dimorphic RBCs Not Reportable 04/10/22 04:24 Polychromasia Not Reportable 04/10/22 04:24 Hypochromasia Not Reportable 04/10/22 04:24 Poikilocytosis Not Reportable 04/10/22 04:24 Anisocytosis Not Reportable 04/10/22 04:24 Microcytosis Not Reportable 04/10/22 04:24 Macrocytosis Not Reportable 04/10/22 04:24 Spherocytes Not Reportable 04/10/22 04:24 Pappenheimer Bodies Not Reportable 04/10/22 04:24 Sickle Cells Not Reportable 04/10/22 04:24 Target Cells Not Reportable 04/10/22 04:24 Tear Drop Cells Not Reportable 04/10/22 04:24 Ovalocytes Not Reportable 04/10/22 04:24 Helmet Cells Not Reportable 04/10/22 04:24 [place] Bodies Not Reportable 04/10/22 04:[address] Rings Not Reportable 04/10/22 04:24 Oliver Cells Not Reportable 04/10/22 04:24 Bite Cells Not Reportable 04/10/22 04:24 Crenated Cell Not Reportable 04/10/22 04:24 Elliptocytes Not Reportable 04/10/22 04:24 Acanthocytes (Spur) Not Reportable 04/10/22 04:24 Rouleaux Not Reportable 04/10/22 04:24 Hemoglobin C Crystals Not Reportable 04/10/22 04:24 Schistocytes Not Reportable 04/10/22 04:24 Malaria parasites Not Reportable 04/10/22 04:24 Allan Bodies Not Reportable 04/10/22 04:24 Hem Pathologist Commnt No 04/10/22 04:24 PT 14.5 Sec. (12.2-14.9) 04/09/22 12:52 INR 1.02 (0.87-1.13) 04/09/22 12:52 D-Dimer 1874.86 ng/mlDDU (0-234) H 04/12/22 04:00 ABG pH 7.487 pH Units (7.350-7.450) H 04/13/22 03:41 ABG pCO2 32.2 mm Hg 04/13/22 03:41 ABG pO2 62.1 mm Hg (80.0-90.0) L 04/13/22 03:41 ABG HCO3 23.8 mmol/L (20.0-26.0) 04/13/22 03:41 ABG O2 Saturation 93.2 % (95.0-99.0) L 04/13/22 03:41 ABG O2 Content 15.4 (0.0-44) 04/13/22 03:41 ABG Base Excess 1.0 mmol/L (-2.0-3.0) 04/13/22 03:41 ABG Hemoglobin 11.9 gm/dl (12.0-16.0) L 04/13/22 03:41 ABG Carboxyhemoglobin 1.1 % (0.0-5.0) 04/13/22 03:41 ABG Methemoglobin 0.7 % (0.0-1.5) 04/13/22 03:41 VBG pH 7.303 (7.320-7.420) L 04/09/22 12:52 Oxyhemoglobin 91.5 % (95.0-99.0) L 04/13/22 03:41 FiO2 50 % 04/13/22 03:41 Sodium 144 mmol/L (137-145) 04/13/22 04:31 Potassium 3.8 mmol/L (3.6-5.0) 04/13/22 04:31 Chloride 106.4 mmol/L (98-107) 04/13/22 04:31 Carbon Dioxide 22 mmol/L (22-30) 04/13/22 04:31 Anion Gap 19 mmol/L 04/13/22 04:31 BUN 42 mg/dL (7-17) H 04/13/22 04:31 Creatinine 1.9 mg/dL (0.6-1.2) H 04/13/22 04:31 Estimated GFR 31 ml/min 04/13/22 04:31 BUN/Creatinine Ratio 22 % 04/13/22 04:31 Glucose 204 mg/dL (65-100) H 04/13/22 04:31 POC Glucose 208 mg/dL (70-105) H 04/13/22 00:14 Lactic Acid 6.10 mmol/L (0.7-2.0) H* 04/09/22 Unknown Calcium 7.4 mg/dL (8.4-10.2) L 04/13/22 04:31 Phosphorus 3.10 mg/dL (2.5-4.5) D 04/11/22 03:58 Magnesium 2.00 mg/dL (1.7-2.3) 04/11/22 03:58 Ferritin 890.0 ng/mL (10.0-200.0) H 04/12/22 04:00 Total Bilirubin 0.60 mg/dL (0.1-1.2) 04/11/22 03:58 AST 106 units/L (5-40) H 04/11/22 03:58 ALT 60 units/L (7-56) H 04/11/22 03:58 Alkaline Phosphatase 54 units/L (35-129) 04/11/22 03:58 Ammonia 20.0 umol/L (25-60) L 04/09/22 12:52 Lactate Dehydrogenase 763 units/L (91-180) H 04/12/22 04:00 Troponin T < 0.010 ng/mL (0.00-0.029) 04/09/22 12:52 C-Reactive Protein 14.10 mg/dL (0.00-1.30) H 04/12/22 04:00 NT-Pro-B Natriuret Pep 101.1 pg/mL (0-900) 04/09/22 13:45 Total Protein 5.6 g/dL (6.3-8.2) L 04/11/22 03:58 Albumin 2.7 g/dL (3.9-5) L 04/11/22 03:58 Albumin/Globulin Ratio 0.9 % 04/11/22 03:58 Procalcitonin 3.13 ng/mL (<0.15) 04/10/22 11:47 TSH 1.560 mlU/mL (0.270-4.200) 04/09/22 12:52 Free T4 1.33 ng/dL (0.76-1.46) 04/09/22 12:52 Urine Color Yellow (Yellow) 04/09/22 13:24 Urine Turbidity Clear (Clear) 04/09/22 13:24 Urine pH 5.0 (5.0-7.0) 04/09/22 13:24 Ur Specific [place] 1.011 (1.003-1.030) 04/09/22 13:24 Urine Protein 30 mg/dl mg/dL (Negative) 04/09/22 13:24 Urine Glucose (UA) Neg mg/dL (Negative) 04/09/22 13:24 Urine Ketones 20 mg/dL (Negative) 04/09/22 13:24 Urine Blood Neg (Negative) 04/09/22 13:24 Urine Nitrite Neg (Negative) 04/09/22 13:24 Urine Bilirubin Neg (Negative) 04/09/22 13:24 Urine Urobilinogen 4.0 mg/dL (<2.0) 04/09/22 13:24 Ur Leukocyte Esterase Neg (Negative) 04/09/22 13:24 Urine WBC (Auto) 2.0 /HPF (0.0-6.0) 04/09/22 13:24 Urine RBC (Auto) < 1.0 /HPF (0.0-6.0) 04/09/22 13:24 U Epithel Cells (Auto) < 1.0 /HPF (0-13.0) 04/09/22 13:24 Urine Mucus Few /HPF 04/09/22 13:24 Urine Eosinophils None seen (None Seen) 04/10/22 14:50 Urine Total Volume 750 ml 04/11/22 11:23 Urine Creatinine 160.5 mg/dL (0.1-20.0) H 04/11/22 11:23 Ur Creatinine 24 Hour 1.2 (0.8-2.8) 04/11/22 11:23 Height (in) Not Reportable 04/11/22 11:23 Weight (lb) Not Reportable 04/11/22 11:23 Creatinine Clearance Not Reportable 04/11/22 11:23 Protein/Creatinin Ratio 0.77 04/10/22 14:50 Urine Sodium 17 mmol/L 04/10/22 14:50 Urine Total Protein 172 mg/dL (5-11.8) H 04/10/22 14:50 Random Vancomycin 11.9 ug/mL (0-40.0) 04/11/22 03:58 Urine Opiates Screen Presumptive negative 04/09/22 22:58 Urine Methadone Screen Presumptive negative 04/09/22 22:58 Ur Barbiturates Screen Presumptive negative 04/09/22 22:58 Ur Phencyclidine Scrn Presumptive negative 04/09/22 22:58 Ur Amphetamines Screen Presumptive negative 04/09/22 22:58 U Benzodiazepines Scrn Presumptive negative 04/09/22 22:58 Urine Cocaine Screen Presumptive negative 04/09/22 22:58 U Marijuana (THC) Screen Presumptive negative 04/09/22 22:58 Drugs of Abuse Note Disclamer 04/09/22 22:58 Coronavirus (PCR) Positive (Negative) A 04/09/22 13:02 Influenza A (RT-PCR) Negative (Negative) 04/09/22 14:15 Influenza B (RT-PCR) Negative (Negative) 04/09/22 14:15 Microbiology: Microbiology 04/09/22 12:52 Peripheral/Venous Blood Culture - Preliminary NO GROWTH AFTER 4 DAYS 04/09/22 12:52 Peripheral/Venous Blood Culture - Preliminary NO GROWTH AFTER 4 DAYS 04/09/22 21:33 Sputum - Endotracheal Wash Sputum Culture - Final [place]/IV: Voiding Method Indwelling Catheter Active Medications - Current Medications Current Medications: Generic Name Dose Route Start Last Admin Trade Name Freq PRN Reason Stop Dose Admin Acetaminophen 650 mg 04/09/22 18:11 Acetaminophen 325 Mg Tab PO Q4H PRN Pain MILD(1-3)/Fever >100.5/CARCAMO Dexamethasone 8 mg 04/09/22 19:00 04/12/22 18:27 Dexamethasone 4 Mg/Ml Vial IV 04/18/22 19:01 8 mg Q24H JO ANN Administration Dextrose 0 ml 04/10/22 00:40 Dextrose 50% In Water (25gm) 50 Ml Syringe IV Q30MIN PRN Hypoglycemia Protocol Enoxaparin Sodium 30 mg 04/10/22 10:00 04/13/22 09:29 Enoxaparin 30 Mg/0.3 Ml Inj SUB-Q 30 mg QDAY JO ANN Administration Famotidine 10 mg 04/09/22 22:00 04/13/22 09:29 Famotidine 20 Mg/2 Ml Inj IV 10 mg BID JO ANN Administration Fentanyl 50 mcg 04/12/22 16:36 04/13/22 13:05 Fentanyl 100 Mcg/2 Ml Inj IV 50 mcg Q2H PRN Administration Pain , Severe (7-10) NORepinephrine/NS 8 MG-250 ML 8 mg in 250 mls @ 3.75 mls/hr 04/09/22 16:00 04/11/22 12:01 Norepinephrine/Ns 8 Mg-250 Ml (Double Conc) IV 0 mcg/min TITRATE JO ANN 0 mls/hr Titration Protocol 2 MCG/MIN Vasopressin 20 unit/ Sodium 101 mls @ 9.09 mls/hr 04/09/22 18:00 04/12/22 08:42 Chloride IV 0 units/min TITR JO ANN 0 mls/hr Titration Protocol 0.03 UNITS/MIN Ceftriaxone Sodium 2 gm in 100 mls @ 200 mls/hr 04/11/22 12:00 04/13/22 13:00 Rocephin/Ns 2 Gm/100 Ml IV 04/15/22 12:29 200 mls/hr Q24H JO ANN Administration Insulin Glargine 10 units 04/12/22 22:00 04/12/22 21:45 Insulin Glargine 100 Units/Ml SUB-Q 10 units QHS JO ANN Administration Insulin Human Lispro 0 unit 04/12/22 12:00 04/13/22 13:22 Insulin Lispro 100 Unit/Ml SUB-Q 3 unit Q6HR JO ANN Administration Protocol Morphine Sulfate 2 mg 04/09/22 18:11 04/12/22 16:17 Morphine 2 Mg/1 Ml Inj IV 2 mg Q4H PRN Administration Pain, Moderate (4-6) Ondansetron HCl 4 mg 04/09/22 18:11 Ondansetron 4 Mg/2 Ml Inj IV Q8H PRN Nausea And Vomiting Senna 8.8 mg 04/12/22 22:00 04/12/22 21:46 Sennosides Oral Liqd 8.8 Mg/5 Ml Oral Liqd PO 8.8 mg QHS JO ANN Administration Sodium Chloride 10 ml 04/09/22 22:00 04/13/22 09:30 Sodium Chloride 0.9% 10 Ml Flush Syringe IV 10 ml BID JO ANN Administration Sodium Chloride 10 ml 04/09/22 18:11 Sodium Chloride 0.9% 10 Ml Flush Syringe IV PRN PRN LINE FLUSH Nutrition/Malnutrition Assess - Dietary Evaluation Nutrition/Malnutrition Findings: Nutrition Notes Start: 04/12/22 10:07 Freq: Status: Active Protocol: Document 04/12/22 10:07 RYDER (Rec: 04/12/22 10:15 RYDER [id number]) Nutrition Notes Need for Assessment generated from: MD Order,lens examiner,MST Initial or Follow up Assessment Current Diagnosis Acute Kidney Injury,Diabetes, Sepsis,Respiratory Failure Other Pertinent Diagnosis AMS, Bilat pneu, COVID-19 (+), Hypotension Current Diet No diet ordered Labs/Tests Na 146 BUN 38 Cr 2.3 BG 173 Ca 6.7 (adjusted 7.74) Pertinent Medications Decadron, D5 1/2NS at 100ml/hr , Dopamine gtt, Insulin gtt, Levophed gtt, Vasopressin gtt Height 5 ft 7 in Weight 83.1 kg [place] Body Weight (kg) 61.36 BMI 28.7 Weight Status Overweight Subjective/Other Information RD consulted for TF; pt screened for malnutrition and skin risks (Levy score: 14). Pt on vent support. 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 She is unvaccinated against COVID-19. Burn Absent Trauma Absent Minimum of two criteria No #1 Nutrition Diagnosis Inadequate oral intake [facility] As Evidenced by Signs and Symptoms pt NPO Is patient on ventilator? Yes Is Patient Ambulatory and/or Out of Bed No REE-([facility]-confined to bed) 9538.181 Calculation Used for Recommendations [facility] Additional Notes Pro needs 1.2-2g/k-166g/ day Fluid needs 1ml/kcal Nutrition Intervention Nutrition Support: Glucerna 1.2 at 55ml/hr with 100ml water flush q4h. Kcal 1,584 Protein (gm) 79 Carbohydrates (gm) 151 Fat (gm) 79 Fluid (mL) 1,063 Fiber (gm) 21 Goal #1 TF tolerance Goal #2 TF to meet at least 75% energy and pro needs Anticipated Discharge Needs: Unable to identify at this time Follow-Up By: 04/15/22 Additional Comments F/U: new TF, vent status, renal function, pressor support
[2022-04-13] MEDS: dexAMETHasone 4 MG/ML VIAL IV SCH (19:27)
[2022-04-13] MEDS: INSULIN GLARGINE 100 UNITS/ML SUB-Q SCH (21:04)
[2022-04-13] MEDS: SENNOSIDES ORAL LIQD 8.8 MG/5 ML ORAL LIQD PO SCH (21:05)
[2022-04-14] MEDS: INSULIN LISPRO 100 UNIT/ML SUB-Q SCH ×4 (00:46→17:19)
[2022-04-14] MEDS: fentaNYL 100 MCG/2 ML INJ IV PRN ×5 (01:09→21:08)
--- NOTE | 2022-04-14 04:08 | XRay Report ---
CHEST 1 VIEW 04/14/2022 2:53 AM INDICATION / CLINICAL INFORMATION: resp failure. COMPARISON: One view of the chest from 04/13/2022. FINDINGS: SUPPORT DEVICES: Unchanged. HEART / MEDIASTINUM: Stable. LUNGS / PLEURA: Airspace opacities have slightly improved on the left and worsened on the right. No s ignificant pleural effusion. No pneumothorax. ADDITIONAL FINDINGS: No significant additional findings. IMPRESSION: Evolving bilateral airspace opacities as above without other significant interval changes. Signer Name: Edin Dumas MD Signed: 04/14/2022 4:04 AM Workstation Name: [id number]
[2022-04-14 04:27] LABS: ABG Base Excess 0.3 mmol/L (-2.0-3.0); ABG HCO3 23.2 mmol/L (20.0-26.0); ABG Methemoglobin 0.5 % (0.0-1.5); ABG Oxygen Saturation 93.9 % (95.0-99.0); ABG PCO2 31.4 mm Hg; ABG PH 7.487 pH Units (7.350-7.450); ABG PO2 57.8 mm Hg (80.0-90.0)
[2022-04-14 08:41] LABS: Calcium 8.4 mg/dL (8.4-10.2)
[2022-04-14] MEDS: FAMOTIDINE 10 MG TAB FEEDTUBE SCH ×2 (09:04→21:09)
[2022-04-14] MEDS: ENOXAPARIN 30 MG/0.3 ML INJ SUB-Q SCH (09:04)
--- NOTE | 2022-04-14 09:10 | Progress Note ---
Assessment and Plan 77 y/o female with multisystem organ failure, COVID positive 04/14/22: Hold on any further lasix. Please do not give any fluids, will see if she re equilbrates on her own. Increase PEEP to 8. Will get head CT today. Patient is now in full blown ARDS from COVID. Increased PEEP to 8 and dropped TV to 400. pH of >7.15 and PaO2 >55 are acceptable. Repeat gas at 1600 today. 04/13/22: Renal function continues to improve and urine output improving as well. Given CXR findings will give lasix 40mg IV x1 today. Repeat CXR tomorrow. Off insulin drip and tolerating feeds. Hold on CT head today but if no improvement or worsening clinical state tomorrow, will repeat. Spoke with family on phone yesterday. Guarded prognosis. 04/12/22: Improved mental state. Feed patient today and stop IVF's and attempt to get off of insulin drip. Dropped Peep to 6. Wean FiO2 for sats >88%. PaO2 of 55 and greater are acceptable. Normal EF on echo. EEG showed diffuse slowing but mental state has improved. Will up date family. 04/11/22: Continue supportive measures. Getting EEG right now. Continue to wean Pressors for MAPs >65. if able to get to just one pressor, will place NG vs OG and attempt trickle feeds. Follow up echo. Down to 45%, good PaO2. Continue to wean, however mental state would preclude extubation at this time. Await renal eval but would like to stop bicarb now that acidosis is better, however needs free water but this could be given do OG/NG if end up placing, otherwise would just do D5W. If able to place tube and feed, then can attempt to get off insulin drip. Plan to update family after echo and EEG read. 1. Neuro-concern for seizures. EEG pending. Hold on long acting anti-epileptic therapy. Neurology consulted and has seen. patient is not on any continuous sedation at present 2. CV-Cardiovascular collapse on pressors (3). Could benefit from echo. Attempt volume resuscitation but no improvement. Continue pressors and wean as tolerated for MAPs >65 3. Pulm-intubated, not on sedation. COVID positive but oxygenation is stable. Per documentation, mainly intubated for airway protection given altered level of mental status. Not a candidate for Remdesivir and may not be a candidate for actemra. Continue steroids and low Tidal volume strategy for lung protection with permissive hypercapnea and lower PaO2 (55-60) if needed. 4. Renal- worsening renal function and decrease in urine output. Renal following. May need HD but would likely not tolerate and CRRT or CVVH is not available here. Worsening lactic acidosis as well. 5. GI-hold on feeds given pressor requirement, prophylactic therapy 6. Endo-continue insulin drip for now Overall prognosis is guarded to poor. Will discuss with immediate family today. CCT 31 minutes. Subjective Date of service: 04/14/22 Principal diagnosis: ASHLEY Interval history: no acute events. Still not following commands. CXR is unchanged. Renal function worse with lasix today. BP stable. Objective Vital Signs - 12hr 04/13/22 04/13/22 04/13/22 22:00 23:00 23:28 Temperature Pulse Rate 98 H Pulse Rate [ 100 H 97 H None] Respiratory 38 H 91 H Rate Blood Pressure 131/61 136/58 136/58 O2 Sat by Pulse 94 34 L 93 Oximetry 04/14/22 04/14/22 04/14/22 00:00 01:00 02:00 Temperature 99.1 F Pulse Rate 91 H Pulse Rate [ 97 H 97 H 93 H None] Respiratory 37 H 39 H 31 H Rate Blood Pressure 127/59 125/59 121/60 O2 Sat by Pulse 92 91 91 Oximetry 04/14/22 04/14/22 04/14/22 03:00 04:00 04:02 Temperature 98.8 F Pulse Rate 87 88 Pulse Rate [ 94 H 90 None] Respiratory 37 H 28 H Rate Blood Pressure 129/61 126/67 126/67 O2 Sat by Pulse 91 90 92 Oximetry 04/14/22 04/14/22 04/14/22 06:00 07:00 08:00 Temperature 98.4 F Pulse Rate 94 H Pulse Rate [ 85 87 94 H None] Respiratory 27 H 29 H 32 H Rate Blood Pressure 127/62 122/70 119/68 O2 Sat by Pulse 90 90 90 Oximetry 04/14/22 04/14/22 08:29 08:30 Temperature Pulse Rate 93 H 93 H Pulse Rate [ None] Respiratory Rate Blood Pressure 119/68 119/68 O2 Sat by Pulse 93 93 Oximetry CBC and BMP: 04/13/22 04:31 04/14/22 07:28 ABG, PT/INR, D-dimer: ABG ABG pH 7.487 pH Units (7.350-7.450) H 04/14/22 03:54 ABG pCO2 31.4 mm Hg 04/14/22 03:54 ABG pO2 57.8 mm Hg (80.0-90.0) L 04/14/22 03:54 ABG O2 Saturation 93.9 % (95.0-99.0) L 04/14/22 03:54 PT/INR, D-dimer PT 14.5 Sec. (12.2-14.9) 04/09/22 12:52 INR 1.02 (0.87-1.13) 04/09/22 12:52 D-Dimer 5586.76 ng/mlDDU (0-234) H 04/14/22 07:28 Abnormal lab findings: Abnormal Labs 04/09/22 04/09/22 04/09/22 11:59 12:52 12:52 WBC RDW 15.3 H Lymph % (Auto) 8.4 L Lymph # (Auto) 0.7 L Seg Neutrophils % 84.6 H Seg Neuts % (Manual) Lymphocytes % (Manual) Seg Neutrophils # Seg Neutrophils # Man Lymphocytes # (Manual) D-Dimer ABG pH ABG pO2 ABG HCO3 ABG O2 Saturation ABG Base Excess ABG Hemoglobin VBG pH Oxyhemoglobin Sodium Potassium Chloride 112.7 H Carbon Dioxide 18 L BUN Creatinine 2.0 H Glucose 204 H POC Glucose 203 H Lactic Acid Calcium Phosphorus Magnesium Ferritin Total Bilirubin 1.30 H AST 47 H ALT Ammonia Lactate Dehydrogenase C-Reactive Protein Total Protein Albumin Urine Creatinine Urine Total Protein Coronavirus (PCR) 04/09/22 04/09/22 04/09/22 12:52 12:52 13:02 WBC RDW Lymph % (Auto) Lymph # (Auto) Seg Neutrophils % Seg Neuts % (Manual) Lymphocytes % (Manual) Seg Neutrophils # Seg Neutrophils # Man Lymphocytes # (Manual) D-Dimer ABG pH ABG pO2 ABG HCO3 ABG O2 Saturation ABG Base Excess ABG Hemoglobin VBG pH 7.303 L Oxyhemoglobin Sodium Potassium Chloride Carbon Dioxide BUN Creatinine Glucose POC Glucose Lactic Acid Calcium Phosphorus Magnesium Ferritin Total Bilirubin AST ALT Ammonia 20.0 L Lactate Dehydrogenase C-Reactive Protein Total Protein Albumin Urine Creatinine Urine Total Protein Coronavirus (PCR) Positive A 04/09/22 04/09/22 04/09/22 15:49 22:15 22:58 WBC RDW Lymph % (Auto) Lymph # (Auto) Seg Neutrophils % Seg Neuts % (Manual) Lymphocytes % (Manual) Seg Neutrophils # Seg Neutrophils # Man Lymphocytes # (Manual) D-Dimer ABG pH 7.097 L* ABG pO2 188.8 H ABG HCO3 7.4 L ABG O2 Saturation 99.1 H ABG Base Excess -20.7 L ABG Hemoglobin VBG pH Oxyhemoglobin Sodium Potassium Chloride 108.8 H Carbon Dioxide 10 L D BUN 20 H Creatinine 2.6 H Glucose 465 H POC Glucose Lactic Acid 2.70 H* Calcium 7.4 L Phosphorus Magnesium Ferritin Total Bilirubin AST ALT Ammonia Lactate Dehydrogenase C-Reactive Protein Total Protein Albumin Urine Creatinine Urine Total Protein Coronavirus (PCR) 04/09/22 04/09/22 04/10/22 23:19 Unknown 00:03 WBC RDW Lymph % (Auto) Lymph # (Auto) Seg Neutrophils % Seg Neuts % (Manual) Lymphocytes % (Manual) Seg Neutrophils # Seg Neutrophils # Man Lymphocytes # (Manual) D-Dimer ABG pH ABG pO2 ABG HCO3 ABG O2 Saturation ABG Base Excess ABG Hemoglobin VBG pH Oxyhemoglobin Sodium Potassium Chloride Carbon Dioxide BUN Creatinine Glucose POC Glucose 356 H Lactic Acid 7.50 H* 6.10 H* Calcium Phosphorus Magnesium Ferritin Total Bilirubin AST ALT Ammonia Lactate Dehydrogenase C-Reactive Protein Total Protein Albumin Urine Creatinine Urine Total Protein Coronavirus (PCR) 04/10/22 04/10/22 04/10/22 02:16 03:03 04:00 WBC RDW Lymph % (Auto) Lymph # (Auto) Seg Neutrophils % Seg Neuts % (Manual) Lymphocytes % (Manual) Seg Neutrophils # Seg Neutrophils # Man Lymphocytes # (Manual) D-Dimer ABG pH ABG pO2 ABG HCO3 ABG O2 Saturation ABG Base Excess ABG Hemoglobin VBG pH Oxyhemoglobin Sodium Potassium Chloride Carbon Dioxide BUN Creatinine Glucose POC Glucose 317 H 325 H 308 H Lactic Acid Calcium Phosphorus Magnesium Ferritin Total Bilirubin AST ALT Ammonia Lactate Dehydrogenase C-Reactive Protein Total Protein Albumin Urine Creatinine Urine Total Protein Coronavirus (PCR) 04/10/22 04/10/22 04/10/22 04:24 04:24 04:24 WBC 16.4 H RDW 16.2 H Lymph % (Auto) Lymph # (Auto) Seg Neutrophils % Seg Neuts % (Manual) 94.0 H Lymphocytes % (Manual) 3.0 L Seg Neutrophils # Seg Neutrophils # Man 15.4 H Lymphocytes # (Manual) 0.5 L D-Dimer ABG pH ABG pO2 ABG HCO3 ABG O2 Saturation ABG Base Excess ABG Hemoglobin VBG pH Oxyhemoglobin Sodium Potassium 2.9 L* D Chloride 116.1 H Carbon Dioxide 11 L BUN 19 H Creatinine 2.5 H Glucose 376 H POC Glucose Lactic Acid Calcium 6.5 L Phosphorus 1.40 L Magnesium 1.60 L Ferritin Total Bilirubin AST 107 H ALT 64 H Ammonia Lactate Dehydrogenase C-Reactive Protein Total Protein 5.5 L Albumin 2.8 L Urine Creatinine Urine Total Protein Coronavirus (PCR) 04/10/22 04/10/22 04/10/22 04:25 05:17 06:00 WBC RDW Lymph % (Auto) Lymph # (Auto) Seg Neutrophils % Seg Neuts % (Manual) Lymphocytes % (Manual) Seg Neutrophils # Seg Neutrophils # Man Lymphocytes # (Manual) D-Dimer ABG pH 7.095 L* ABG pO2 112.3 H ABG HCO3 8.7 L ABG O2 Saturation ABG Base Excess -19.7 L ABG Hemoglobin VBG pH Oxyhemoglobin Sodium Potassium Chloride Carbon Dioxide BUN Creatinine Glucose POC Glucose 343 H 278 H Lactic Acid Calcium Phosphorus Magnesium Ferritin Total Bilirubin AST ALT Ammonia Lactate Dehydrogenase C-Reactive Protein Total Protein Albumin Urine Creatinine Urine Total Protein Coronavirus (PCR) 04/10/22 04/10/22 04/10/22 06:53 07:54 08:58 WBC RDW Lymph % (Auto) Lymph # (Auto) Seg Neutrophils % Seg Neuts % (Manual) Lymphocytes % (Manual) Seg Neutrophils # Seg Neutrophils # Man Lymphocytes # (Manual) D-Dimer ABG pH ABG pO2 ABG HCO3 ABG O2 Saturation ABG Base Excess ABG Hemoglobin VBG pH Oxyhemoglobin Sodium Potassium Chloride Carbon Dioxide BUN Creatinine Glucose POC Glucose 262 H 245 H 215 H Lactic Acid Calcium Phosphorus Magnesium Ferritin Total Bilirubin AST ALT Ammonia Lactate Dehydrogenase C-Reactive Protein Total Protein Albumin Urine Creatinine Urine Total Protein Coronavirus (PCR) 04/10/22 04/10/22 04/10/22 10:12 10:51 11:47 WBC RDW Lymph % (Auto) Lymph # (Auto) Seg Neutrophils % Seg Neuts % (Manual) Lymphocytes % (Manual) Seg Neutrophils # Seg Neutrophils # Man Lymphocytes # (Manual) D-Dimer ABG pH ABG pO2 ABG HCO3 ABG O2 Saturation ABG Base Excess ABG Hemoglobin VBG pH Oxyhemoglobin Sodium 148 H Potassium 3.4 L Chloride 116.7 H Carbon Dioxide 15 L BUN 22 H Creatinine 2.7 H Glucose 190 H POC Glucose 206 H 176 H Lactic Acid Calcium 6.9 L Phosphorus Magnesium Ferritin Total Bilirubin AST ALT Ammonia Lactate Dehydrogenase C-Reactive Protein Total Protein Albumin Urine Creatinine Urine Total Protein Coronavirus (PCR) 04/10/22 04/10/22 04/10/22 11:47 11:47 12:02 WBC RDW Lymph % (Auto) Lymph # (Auto) Seg Neutrophils % Seg Neuts % (Manual) Lymphocytes % (Manual) Seg Neutrophils # Seg Neutrophils # Man Lymphocytes # (Manual) D-Dimer ABG pH ABG pO2 ABG HCO3 ABG O2 Saturation ABG Base Excess ABG Hemoglobin VBG pH Oxyhemoglobin Sodium Potassium Chloride Carbon Dioxide BUN Creatinine Glucose POC Glucose 178 H Lactic Acid Calcium Phosphorus Magnesium Ferritin 1218.0 H Total Bilirubin AST ALT Ammonia Lactate Dehydrogenase 482 H C-Reactive Protein 11.30 H Total Protein Albumin Urine Creatinine Urine Total Protein Coronavirus (PCR) 04/10/22 04/10/22 04/10/22 13:13 13:58 14:50 WBC RDW Lymph % (Auto) Lymph # (Auto) Seg Neutrophils % Seg Neuts % (Manual) Lymphocytes % (Manual) Seg Neutrophils # Seg Neutrophils # Man Lymphocytes # (Manual) D-Dimer ABG pH ABG pO2 ABG HCO3 ABG O2 Saturation ABG Base Excess ABG Hemoglobin VBG pH Oxyhemoglobin Sodium Potassium Chloride Carbon Dioxide BUN Creatinine Glucose POC Glucose 160 H 150 H Lactic Acid Calcium Phosphorus Magnesium Ferritin Total Bilirubin AST ALT Ammonia Lactate Dehydrogenase C-Reactive Protein Total Protein Albumin Urine Creatinine 224.2 H Urine Total Protein 172 H Coronavirus (PCR) 04/10/22 04/10/22 04/10/22 15:24 16:38 16:56 WBC RDW Lymph % (Auto) Lymph # (Auto) Seg Neutrophils % Seg Neuts % (Manual) Lymphocytes % (Manual) Seg Neutrophils # Seg Neutrophils # Man Lymphocytes # (Manual) D-Dimer ABG pH ABG pO2 ABG HCO3 ABG O2 Saturation ABG Base Excess ABG Hemoglobin VBG pH Oxyhemoglobin Sodium Potassium Chloride Carbon Dioxide BUN Creatinine Glucose POC Glucose 140 H 154 H 149 H Lactic Acid Calcium Phosphorus Magnesium Ferritin Total Bilirubin AST ALT Ammonia Lactate Dehydrogenase C-Reactive Protein Total Protein Albumin Urine Creatinine Urine Total Protein Coronavirus (PCR) 04/10/22 04/10/22 04/10/22 18:21 19:21 20:02 WBC RDW Lymph % (Auto) Lymph # (Auto) Seg Neutrophils % Seg Neuts % (Manual) Lymphocytes % (Manual) Seg Neutrophils # Seg Neutrophils # Man Lymphocytes # (Manual) D-Dimer ABG pH ABG pO2 ABG HCO3 ABG O2 Saturation ABG Base Excess ABG Hemoglobin VBG pH Oxyhemoglobin Sodium Potassium Chloride Carbon Dioxide BUN Creatinine Glucose POC Glucose 141 H 126 H 139 H Lactic Acid Calcium Phosphorus Magnesium Ferritin Total Bilirubin AST ALT Ammonia Lactate Dehydrogenase C-Reactive Protein Total Protein Albumin Urine Creatinine Urine Total Protein Coronavirus (PCR) 04/10/22 04/10/22 04/10/22 21:04 21:58 22:20 WBC RDW Lymph % (Auto) Lymph # (Auto) Seg Neutrophils % Seg Neuts % (Manual) Lymphocytes % (Manual) Seg Neutrophils # Seg Neutrophils # Man Lymphocytes # (Manual) D-Dimer ABG pH ABG pO2 ABG HCO3 ABG O2 Saturation ABG Base Excess ABG Hemoglobin VBG pH Oxyhemoglobin Sodium Potassium Chloride 114.5 H Carbon Dioxide 17 L BUN 24 H Creatinine 2.5 H Glucose 165 H POC Glucose 144 H 161 H Lactic Acid Calcium 6.5 L Phosphorus Magnesium Ferritin Total Bilirubin AST ALT Ammonia Lactate Dehydrogenase C-Reactive Protein Total Protein Albumin Urine Creatinine Urine Total Protein Coronavirus (PCR) 04/10/22 04/11/22 04/11/22 23:02 00:08 01:05 WBC RDW Lymph % (Auto) Lymph # (Auto) Seg Neutrophils % Seg Neuts % (Manual) Lymphocytes % (Manual) Seg Neutrophils # Seg Neutrophils # Man Lymphocytes # (Manual) D-Dimer ABG pH ABG pO2 ABG HCO3 ABG O2 Saturation ABG Base Excess ABG Hemoglobin VBG pH Oxyhemoglobin Sodium Potassium Chloride Carbon Dioxide BUN Creatinine Glucose POC Glucose 160 H 148 H 156 H Lactic Acid Calcium Phosphorus Magnesium Ferritin Total Bilirubin AST ALT Ammonia Lactate Dehydrogenase C-Reactive Protein Total Protein Albumin Urine Creatinine Urine Total Protein Coronavirus (PCR) 04/11/22 04/11/22 04/11/22 01:30 02:05 03:04 WBC RDW Lymph % (Auto) Lymph # (Auto) Seg Neutrophils % Seg Neuts % (Manual) Lymphocytes % (Manual) Seg Neutrophils # Seg Neutrophils # Man Lymphocytes # (Manual) D-Dimer ABG pH ABG pO2 75.1 L ABG HCO3 17.2 L ABG O2 Saturation ABG Base Excess -5.8 L ABG Hemoglobin 11.5 L VBG pH Oxyhemoglobin Sodium Potassium Chloride Carbon Dioxide BUN Creatinine Glucose POC Glucose 150 H 168 H Lactic Acid Calcium Phosphorus Magnesium Ferritin Total Bilirubin AST ALT Ammonia Lactate Dehydrogenase C-Reactive Protein Total Protein Albumin Urine Creatinine Urine Total Protein Coronavirus (PCR) 04/11/22 04/11/22 04/11/22 03:58 03:58 04:05 WBC 12.2 H RDW 15.7 H Lymph % (Auto) Lymph # (Auto) Seg Neutrophils % Seg Neuts % (Manual) Lymphocytes % (Manual) Seg Neutrophils # Seg Neutrophils # Man Lymphocytes # (Manual) D-Dimer ABG pH ABG pO2 ABG HCO3 ABG O2 Saturation ABG Base Excess ABG Hemoglobin VBG pH Oxyhemoglobin Sodium 147 H Potassium Chloride 114.2 H Carbon Dioxide 19 L BUN 26 H Creatinine 2.5 H Glucose 154 H POC Glucose 151 H Lactic Acid Calcium 6.8 L Phosphorus Magnesium Ferritin Total Bilirubin AST 106 H ALT 60 H Ammonia Lactate Dehydrogenase C-Reactive Protein Total Protein 5.6 L Albumin 2.7 L Urine Creatinine Urine Total Protein Coronavirus (PCR) 04/11/22 04/11/22 04/11/22 05:14 06:19 08:23 WBC RDW Lymph % (Auto) Lymph # (Auto) Seg Neutrophils % Seg Neuts % (Manual) Lymphocytes % (Manual) Seg Neutrophils # Seg Neutrophils # Man Lymphocytes # (Manual) D-Dimer ABG pH ABG pO2 ABG HCO3 ABG O2 Saturation ABG Base Excess ABG Hemoglobin VBG pH Oxyhemoglobin Sodium Potassium Chloride Carbon Dioxide BUN Creatinine Glucose POC Glucose 134 H 144 H 143 H Lactic Acid Calcium Phosphorus Magnesium Ferritin Total Bilirubin AST ALT Ammonia Lactate Dehydrogenase C-Reactive Protein Total Protein Albumin Urine Creatinine Urine Total Protein Coronavirus (PCR) 04/11/22 04/11/22 04/11/22 09:28 10:06 11:23 WBC RDW Lymph % (Auto) Lymph # (Auto) Seg Neutrophils % Seg Neuts % (Manual) Lymphocytes % (Manual) Seg Neutrophils # Seg Neutrophils # Man Lymphocytes # (Manual) D-Dimer ABG pH ABG pO2 ABG HCO3 ABG O2 Saturation ABG Base Excess ABG Hemoglobin VBG pH Oxyhemoglobin Sodium Potassium Chloride Carbon Dioxide BUN Creatinine Glucose POC Glucose 138 H Lactic Acid Calcium Phosphorus Magnesium Ferritin Total Bilirubin AST ALT Ammonia Lactate Dehydrogenase C-Reactive Protein Total Protein Albumin Urine Creatinine 161.8 H 160.5 H Urine Total Protein Coronavirus (PCR) 04/11/22 04/11/22 04/12/22 15:59 23:58 00:01 WBC 16.2 H RDW 15.8 H Lymph % (Auto) 5.7 L Lymph # (Auto) 0.9 L Seg Neutrophils % 89.6 H Seg Neuts % (Manual) Lymphocytes % (Manual) Seg Neutrophils # 14.6 H Seg Neutrophils # Man Lymphocytes # (Manual) D-Dimer ABG pH ABG pO2 ABG HCO3 ABG O2 Saturation ABG Base Excess ABG Hemoglobin VBG pH Oxyhemoglobin Sodium Potassium Chloride Carbon Dioxide BUN Creatinine Glucose POC Glucose 166 H 150 H Lactic Acid Calcium Phosphorus Magnesium Ferritin Total Bilirubin AST ALT Ammonia Lactate Dehydrogenase C-Reactive Protein Total Protein Albumin Urine Creatinine Urine Total Protein Coronavirus (PCR) 04/12/22 04/12/22 04/12/22 03:20 04:00 04:00 WBC RDW Lymph % (Auto) Lymph # (Auto) Seg Neutrophils % Seg Neuts % (Manual) Lymphocytes % (Manual) Seg Neutrophils # Seg Neutrophils # Man Lymphocytes # (Manual) D-Dimer 1874.86 H ABG pH 7.513 H ABG pO2 61.7 L ABG HCO3 ABG O2 Saturation 94.2 L ABG Base Excess ABG Hemoglobin 11.5 L VBG pH Oxyhemoglobin 92.6 L Sodium Potassium Chloride Carbon Dioxide BUN Creatinine Glucose POC Glucose Lactic Acid Calcium Phosphorus Magnesium Ferritin 890.0 H Total Bilirubin AST ALT Ammonia Lactate Dehydrogenase C-Reactive Protein Total Protein Albumin Urine Creatinine Urine Total Protein Coronavirus (PCR) 04/12/22 04/12/22 04/12/22 04:00 04:20 04:59 WBC RDW Lymph % (Auto) Lymph # (Auto) Seg Neutrophils % Seg Neuts % (Manual) Lymphocytes % (Manual) Seg Neutrophils # Seg Neutrophils # Man Lymphocytes # (Manual) D-Dimer ABG pH ABG pO2 ABG HCO3 ABG O2 Saturation ABG Base Excess ABG Hemoglobin VBG pH Oxyhemoglobin Sodium 146 H Potassium Chloride 108.0 H Carbon Dioxide BUN 38 H Creatinine 2.3 H Glucose 173 H POC Glucose 146 H Lactic Acid Calcium 6.7 L Phosphorus Magnesium Ferritin Total Bilirubin AST ALT Ammonia Lactate Dehydrogenase 763 H C-Reactive Protein 14.10 H Total Protein Albumin Urine Creatinine Urine Total Protein Coronavirus (PCR) 04/12/22 04/12/22 04/12/22 06:05 10:15 11:52 WBC RDW Lymph % (Auto) Lymph # (Auto) Seg Neutrophils % Seg Neuts % (Manual) Lymphocytes % (Manual) Seg Neutrophils # Seg Neutrophils # Man Lymphocytes # (Manual) D-Dimer ABG pH ABG pO2 ABG HCO3 ABG O2 Saturation ABG Base Excess ABG Hemoglobin VBG pH Oxyhemoglobin Sodium Potassium Chloride Carbon Dioxide BUN Creatinine Glucose POC Glucose 190 H 122 H 125 H Lactic Acid Calcium Phosphorus Magnesium Ferritin Total Bilirubin AST ALT Ammonia Lactate Dehydrogenase C-Reactive Protein Total Protein Albumin Urine Creatinine Urine Total Protein Coronavirus (PCR) 04/12/22 04/13/22 04/13/22 13:18 00:14 03:41 WBC RDW Lymph % (Auto) Lymph # (Auto) Seg Neutrophils % Seg Neuts % (Manual) Lymphocytes % (Manual) Seg Neutrophils # Seg Neutrophils # Man Lymphocytes # (Manual) D-Dimer ABG pH 7.487 H ABG pO2 62.1 L ABG HCO3 ABG O2 Saturation 93.2 L ABG Base Excess ABG Hemoglobin 11.9 L VBG pH Oxyhemoglobin 91.5 L Sodium Potassium Chloride Carbon Dioxide BUN 38 H Creatinine 2.1 H Glucose 144 H POC Glucose 208 H Lactic Acid Calcium 7.1 L Phosphorus Magnesium Ferritin Total Bilirubin AST ALT Ammonia Lactate Dehydrogenase C-Reactive Protein Total Protein Albumin Urine Creatinine Urine Total Protein Coronavirus (PCR) 04/13/22 04/13/22 04/14/22 04:31 04:31 03:54 WBC 13.9 H RDW 15.7 H Lymph % (Auto) Lymph # (Auto) Seg Neutrophils % Seg Neuts % (Manual) Lymphocytes % (Manual) Seg Neutrophils # Seg Neutrophils # Man Lymphocytes # (Manual) D-Dimer ABG pH 7.487 H ABG pO2 57.8 L ABG HCO3 ABG O2 Saturation 93.9 L ABG Base Excess ABG Hemoglobin 10.0 L VBG pH Oxyhemoglobin 92.3 L Sodium Potassium Chloride Carbon Dioxide BUN 42 H Creatinine 1.9 H Glucose 204 H POC Glucose Lactic Acid Calcium 7.4 L Phosphorus Magnesium Ferritin Total Bilirubin AST ALT Ammonia Lactate Dehydrogenase C-Reactive Protein Total Protein Albumin Urine Creatinine Urine Total Protein Coronavirus (PCR) 04/14/22 04/14/22 04/14/22 07:28 07:28 07:28 WBC RDW Lymph % (Auto) Lymph # (Auto) Seg Neutrophils % Seg Neuts % (Manual) Lymphocytes % (Manual) Seg Neutrophils # Seg Neutrophils # Man Lymphocytes # (Manual) D-Dimer 5586.76 H ABG pH ABG pO2 ABG HCO3 ABG O2 Saturation ABG Base Excess ABG Hemoglobin VBG pH Oxyhemoglobin Sodium Potassium Chloride Carbon Dioxide BUN Creatinine Glucose POC Glucose Lactic Acid Calcium Phosphorus Magnesium Ferritin 454.7 H Total Bilirubin AST ALT Ammonia Lactate Dehydrogenase 1345 H C-Reactive Protein Total Protein Albumin Urine Creatinine Urine Total Protein Coronavirus (PCR) 04/14/22 07:28 WBC RDW Lymph % (Auto) Lymph # (Auto) Seg Neutrophils % Seg Neuts % (Manual) Lymphocytes % (Manual) Seg Neutrophils # Seg Neutrophils # Man Lymphocytes # (Manual) D-Dimer ABG pH ABG pO2 ABG HCO3 ABG O2 Saturation ABG Base Excess ABG Hemoglobin VBG pH Oxyhemoglobin Sodium 149 H Potassium Chloride 110.3 H Carbon Dioxide BUN 57 H Creatinine 2.3 H Glucose 205 H POC Glucose Lactic Acid Calcium Phosphorus Magnesium Ferritin Total Bilirubin AST ALT Ammonia Lactate Dehydrogenase C-Reactive Protein Total Protein Albumin Urine Creatinine Urine Total Protein Coronavirus (PCR)
[2022-04-14] MEDS: QUEtiapine 25 MG TAB FEEDTUBE SCH ×2 (09:14→21:09)
[2022-04-14 09:21] LABS: C-Reactive Protein 4.8 mg/dL (0.00-1.30)
[2022-04-14 09:40] LABS: Hematocrit 31.1 % (30.3-42.9); Hemoglobin 10.4 gm/dl (10.1-14.3); Mean Corpuscular HGB Conc 33 % (30-34); Mean Corpuscular Volume 87 fl (79-97); Platelet Count 175 K/mm3 (140-440); Red Blood Count 3.59 M/mm3 (3.65-5.03); Red Cell Distribution Width 15.6 % (13.2-15.2)
--- NOTE | 2022-04-14 11:10 | Progress Note ---
Assessment and Plan Assessment and plan: This is a 77-year-old female with DM and ovarian cancer in remission admitted for septic shock secondary to COVID-19 pneumonia, acute kidney injury, acute hypoxic respiratory failure and currently in multiorgan failure Neuro: Acute metabolic encephalopathy, myoclonic jerks -Myoclonic jerking aborted with Ativan -Avoid delirium -Reorientation as needed -Maintain sleep-wake cycle -aspiration/seizure precautions -Neurology consulted, appreciate recommendations -Initial CT head showed no acute abnormality -EEG pending -Repeat CTH shows no acute abnormality Cardiac: NAD -Blood pressure monitoring per protocol -s/p vasopressor support with Levophed, dobutamine, vasopressin -MAP goal greater than 65 -Echocardiogram shows LVEF 55 to 60%, normal bivalve function, mildly dilated right ventricle Respiratory: Acute hypoxic respiratory failure, ARDs -CCM consulted, appreciate recommendations -Intubated in the emergency department 04/09 with 7.00 ETT at 22 the lips -A.m. vent settings: Assist-control rate 20, tidal volume 450, PEEP 6, FiO2 50% -See RT notes for titration -increase in peep -A.m. ABG and CXR noted -VAP bundle -SPO2 monitoring GI: Transaminitis -24 hours -259 ml -PPI -NTR consult for tube feedings -BR: Colace : Acute kidney injury likely secondary to ischemic acute tubular necrosis -Nephrology consulted, appreciate recommendations -Strict intake and output -Renally dose medications -Avoid nephrotoxic medications -Daily weights -FeNa calculated at 0.13 -Renal ultrasound Shows mild echogenic kidneys which can be seen in medical renal disease, no hydronephrosis, small amount of free fluid in the abdomen -s/p IV sodium bicarbonate drip and D5W -Trend BMP -04/13 lasix x1 ID: Septic shock secondary to COVID-19 pneumonia, lactic acidosis -Infectious disease consulted, appreciate recommendations -Admit CXR showed bilateral air space opacities -Covid 19 PCR (+) -Antibiotic therapy with Rocephin and vancomycin -Decadron 8 mg daily for 10 days -Per ID: Due to renal failure, not a candidate for remdesivir -S/p Actemra 04/10 -Contact/droplet precautions -f/u blood culture -Monitor WBC and temperature curve -Trend COVID-19 inflammatory markers Endo: DKA, h/o DM -S/p insulin drip -Avoid hypoglycemia -SSI and long-acting insulin -Accu-Cheks every 6 Heme: Leukocytosis, elevated Ddimer -BLE dopplar US shows no DVT -Trend CBC -Transfuse hemoglobin less than 7 -Lovenox subcu -Monitor for signs of bleeding -SCDs to BLE while in bed The high probability of a clinically significant, sudden or life threatening deterioration of the [multi] system(s) required my full and direct attention, intervention and personal management. The aggregate critical care time was [60] minutes. This time is in addition to time spent performing reported procedures but includes the following: [x] Data Review and interpretation [x] Patient assessment and monitoring of vital signs [x] Documentation [x] Medication orders and management Disposition Plan: icu Total Time Spent with Patient (Minutes): 60 History Interval history: This is a 77-year-old female with DM and ovarian cancer in remission s/p partial hysterectomy and oophorectomy presented to emergency department on 04/09 with altered mental status, weakness, shortness of breath over the past week with worsening symptoms on 04/09. Of note patient was not vaccinated for COVID-19. In the emergency department patient was very hypoxic on arrival and was placed on 100% nonrebreather, patient was tachypneic and hypotensive and initially was alert and oriented however became lethargic and was intubated for airway protection. Work-up in the emergency department revealed leukocytosis, acute kidney injury, hypokalemia, hyperglycemia. Patient was admitted to the hospitalist service with consults to [facility] with septic shock, COVID-19 PUI, hypokalemia, acute kidney injury, acute metabolic encephalopathy, bilateral pneumonia, lactic acidosis and acute hypoxic respiratory failure. Hospital course to date: 04/10: Patient noted to have myoclonic jerking this morning and was given 2 mg of Ativan which aborted the jerking. Neurology was consulted and MRI and EEG were ordered. Patient admits to unstable for MRI at this time. Patient is hypotensive and currently on Levophed, vasopressin and dobutamine. Nephrology consulted for renal failure. Remains on insulin drip and was placed on a bicarbonate drip this morning. Infectious disease consulted who added vancomycin and ordered follow-up labs. Dr. Craig had a conversation with family about prognosis and given multisystem organ failure. We will continue supportive care. 04/11/22-patient seen at bedside. T/V orally intubated. No purposeful response on assessment. make periodic jerking movement. EEG done today-will f/u with result. BICarb d/c -acidosis has improved-started on D5 11/28 NS. Reviewed specialist note and reces-renal US-no acute finding. Continue Pressors for MAPs >65. Wean as tolerated. Bicarb-d/c and start D5W. 04/12: Patient is following commands, nutrition consulted for tube feedings, PEEP decreased with possible PSV in the a.m., insulin drip discontinued and SSI/basal dose insulin started. [facility] will update son. 04/13: Renal function continues to improve, intermittently following commands, [facility] ordered 1 x 40 mg of Lasix repeat CXR in the a.m. Tolerating tube feedings. 04/14: PEEP increased per [facility], will not repeat Lasix again due to increasing renal functions. Ordered CT head. Overnight patient was tachypneic and agitated and Precedex drip was started. We will start Seroquel and wean Precedex as tolerated. Hospitalist Physical - Constitutional Vitals: Temp Pulse Resp BP Pulse Ox 98.4 F 93 H 32 H 119/68 93 04/14/22 08:00 04/14/22 08:30 04/14/22 08:00 04/14/22 08:30 04/14/22 08:30 General appearance: Present: no acute distress, well-nourished, obese - EENT ENT: poor dentition - Neck Neck: Absent: masses or JVD, cervical LAD - Respiratory Respiratory effort: normal Respiratory: bilateral: diminished - Cardiovascular Rhythm: regular Heart Sounds: Present: S1 & S2. Absent: systolic murmur, diastolic murmur - Extremities Extremities: no ischemia, pulses intact, pulses symmetrical, normal temperature, normal color Peripheral Pulses: within normal limits - Abdominal General gastrointestinal: soft, non-tender, non-distended, normal bowel sounds - Integumentary Integumentary: Present: warm, dry - Psychiatric Psychiatric: other - Neurologic Neurologic: other (opens eyes spontaneously, pupils are equal and round however not reactive to light (cataracts), does not follow commands, intact cough/gag) - Allied Health Allied health notes reviewed: nursing, RT HEART Score - HEART Score Age: > 65 Risk factors: 1-2 risk factors Troponin: Troponin T < 0.010 ng/mL (0.00-0.029) 04/09/22 12:52 Troponin: < normal limit - Critical Actions Critical Actions: 4-6 pts:12-16.6% risk of adverse cardiac event. Should be admitted Results - Labs CBC & Chem 7: 04/14/22 09:26 04/14/22 07:28 Labs: Laboratory Last Values WBC 18.6 K/mm3 (4.5-11.0) H 04/14/22 09:26 RBC 3.59 M/mm3 (3.65-5.03) L 04/14/22 09:26 Hgb 10.4 gm/dl (10.1-14.3) 04/14/22 09:26 Hct 31.1 % (30.3-42.9) 04/14/22 09:26 MCV 87 fl (79-97) 04/14/22 09:26 MCH 29 pg (28-32) 04/14/22 09:26 MCHC 33 % (30-34) 04/14/22 09:26 RDW 15.6 % (13.2-15.2) H 04/14/22 09:26 Plt Count 175 K/mm3 (140-440) 04/14/22 09:26 Lymph % (Auto) 5.7 % (13.4-35.0) L 04/12/22 00:01 [place] % (Auto) 4.5 % (0.0-7.3) 04/12/22 00:01 Eos % (Auto) 0.0 % (0.0-4.3) 04/12/22 00:01 Baso % (Auto) 0.2 % (0.0-1.8) 04/12/22 00:01 Lymph # (Auto) 0.9 K/mm3 (1.2-5.4) L 04/12/22 00:01 [place] # (Auto) 0.7 K/mm3 (0.0-0.8) 04/12/22 00:01 Eos # (Auto) 0.0 K/mm3 (0.0-0.4) 04/12/22 00:01 Baso # (Auto) 0.0 K/mm3 (0.0-0.1) 04/12/22 00:01 Add Manual Diff Complete 04/10/22 04:24 Total Counted 100 04/10/22 04:24 Seg Neutrophils % 89.6 % (40.0-70.0) H 04/12/22 00:01 Seg Neuts % (Manual) 94.0 % (40.0-70.0) H 04/10/22 04:24 Band Neutrophils % 0 % 04/10/22 04:24 Lymphocytes % (Manual) 3.0 % (13.4-35.0) L 04/10/22 04:24 Reactive Lymphs % (Man) 0 % 04/10/22 04:24 Monocytes % (Manual) 3.0 % (0.0-7.3) 04/10/22 04:24 Eosinophils % (Manual) 0 % (0.0-4.3) 04/10/22 04:24 Basophils % (Manual) 0 % (0.0-1.8) 04/10/22 04:24 Metamyelocytes % 0 % 04/10/22 04:24 Myelocytes % 0 % 04/10/22 04:24 Promyelocytes % 0 % 04/10/22 04:24 Blast Cells % 0 % 04/10/22 04:24 Nucleated RBC % Not Reportable 04/10/22 04:24 Seg Neutrophils # 14.6 K/mm3 (1.8-7.7) H 04/12/22 00:01 Seg Neutrophils # Man 15.4 K/mm3 (1.8-7.7) H 04/10/22 04:24 Band Neutrophils # 0.0 K/mm3 04/10/22 04:24 Lymphocytes # (Manual) 0.5 K/mm3 (1.2-5.4) L 04/10/22 04:24 Abs React Lymphs (Man) 0.0 K/mm3 04/10/22 04:24 Monocytes # (Manual) 0.5 K/mm3 (0.0-0.8) 04/10/22 04:24 Eosinophils # (Manual) 0.0 K/mm3 (0.0-0.4) 04/10/22 04:24 Basophils # (Manual) 0.0 K/mm3 (0.0-0.1) 04/10/22 04:24 Metamyelocytes # 0.0 K/mm3 04/10/22 04:24 Myelocytes # 0.0 K/mm3 05/18/22 04:24 Promyelocytes # 0.0 K/mm3 04/10/22 04:24 Blast Cells # 0.0 K/mm3 04/10/22 04:24 WBC Morphology Not Reportable 04/10/22 04:24 Hypersegmented Neuts Not Reportable 04/10/22 04:24 Hyposegmented Neuts Not Reportable 04/10/22 04:24 Hypogranular Neuts Not Reportable 04/10/22 04:24 Smudge Cells Not Reportable 04/10/22 04:24 Toxic Granulation Not Reportable 04/10/22 04:24 Toxic Vacuolation Not Reportable 04/10/22 04:24 Dohle Bodies Not Reportable 04/10/22 04:24 Pelger-Huet Anomaly Not Reportable 04/10/22 04:24 Aleja Rods Not Reportable 04/10/22 04:24 Platelet Estimate Consistent w auto 04/10/22 04:24 Clumped Platelets Not Reportable 04/10/22 04:24 Plt Clumps, EDTA Not Reportable 04/10/22 04:24 Large Platelets Not Reportable 04/10/22 04:24 Giant Platelets Rare 04/10/22 04:24 Platelet Satelliting Not Reportable 04/10/22 04:24 Plt Morphology Comment Not Reportable 04/10/22 04:24 RBC Morphology Normal 04/10/22 04:24 Dimorphic RBCs Not Reportable 04/10/22 04:24 Polychromasia Not Reportable 04/10/22 04:24 Hypochromasia Not Reportable 04/10/22 04:24 Poikilocytosis Not Reportable 04/10/22 04:24 Anisocytosis Not Reportable 04/10/22 04:24 Microcytosis Not Reportable 04/10/22 04:24 Macrocytosis Not Reportable 04/10/22 04:24 Spherocytes Not Reportable 04/10/22 04:24 Pappenheimer Bodies Not Reportable 04/10/22 04:24 Sickle Cells Not Reportable 04/10/22 04:24 Target Cells Not Reportable 04/10/22 04:24 Tear Drop Cells Not Reportable 04/10/22 04:24 Ovalocytes Not Reportable 04/10/22 04:24 Helmet Cells Not Reportable 04/10/22 04:[address] [place] Bodies Not Reportable 04/10/22 04:24 [place] Rings Not Reportable 04/10/22 04:24 Chani Cells Not Reportable 04/10/22 04:24 Bite Cells Not Reportable 04/10/22 04:24 Crenated Cell Not Reportable 04/10/22 04:24 Elliptocytes Not Reportable 04/10/22 04:24 Acanthocytes (Spur) Not Reportable 04/10/22 04:24 Rouleaux Not Reportable 04/10/22 04:24 Hemoglobin C Crystals Not Reportable 04/10/22 04:24 Schistocytes Not Reportable 04/10/22 04:24 Malaria parasites Not Reportable 04/10/22 04:24 Allan Bodies Not Reportable 04/10/22 04:24 Hem Pathologist Commnt No 04/10/22 04:24 PT 14.5 Sec. (12.2-14.9) 04/09/22 12:52 INR 1.02 (0.87-1.13) 04/09/22 12:52 D-Dimer 5586.76 ng/mlDDU (0-234) H 04/14/22 07:28 ABG pH 7.487 pH Units (7.350-7.450) H 04/14/22 03:54 ABG pCO2 31.4 mm Hg 04/14/22 03:54 ABG pO2 57.8 mm Hg (80.0-90.0) L 04/14/22 03:54 ABG HCO3 23.2 mmol/L (20.0-26.0) 04/14/22 03:54 ABG O2 Saturation 93.9 % (95.0-99.0) L 04/14/22 03:54 ABG O2 Content 13.0 (0.0-44) 04/14/22 03:54 ABG Base Excess 0.3 mmol/L (-2.0-3.0) 04/14/22 03:54 ABG Hemoglobin 10.0 gm/dl (12.0-16.0) L 04/14/22 03:54 ABG Carboxyhemoglobin 1.2 % (0.0-5.0) 04/14/22 03:54 ABG Methemoglobin 0.5 % (0.0-1.5) 04/14/22 03:54 VBG pH 7.303 (7.320-7.420) L 04/09/22 12:52 Oxyhemoglobin 92.3 % (95.0-99.0) L 04/14/22 03:54 FiO2 50 % 04/14/22 03:54 Sodium 149 mmol/L (137-145) H 04/14/22 07:28 Potassium 4.2 mmol/L (3.6-5.0) 04/14/22 07:28 Chloride 110.3 mmol/L (98-107) H 04/14/22 07:28 Carbon Dioxide 22 mmol/L (22-30) 04/14/22 07:28 Anion Gap 21 mmol/L 04/14/22 07:28 BUN 57 mg/dL (7-17) H 04/14/22 07:28 Creatinine 2.3 mg/dL (0.6-1.2) H 04/14/22 07:28 Estimated GFR 25 ml/min 04/14/22 07:28 BUN/Creatinine Ratio 25 % 04/14/22 07:28 Glucose 205 mg/dL (65-100) H 04/14/22 07:28 POC Glucose 208 mg/dL (70-105) H 04/13/22 00:14 Lactic Acid 6.10 mmol/L (0.7-2.0) H* 04/09/22 Unknown Calcium 8.4 mg/dL (8.4-10.2) 04/14/22 07:28 Phosphorus 3.60 mg/dL (2.5-4.5) 04/14/22 07:28 Magnesium 2.90 mg/dL (1.7-2.3) H 04/14/22 07:28 Ferritin 454.7 ng/mL (10.0-200.0) H 04/14/22 07:28 Total Bilirubin 0.60 mg/dL (0.1-1.2) 04/11/22 03:58 AST 106 units/L (5-40) H 04/11/22 03:58 ALT 60 units/L (7-56) H 04/11/22 03:58 Alkaline Phosphatase 54 units/L (35-129) 04/11/22 03:58 Ammonia 20.0 umol/L (25-60) L 04/09/22 12:52 Lactate Dehydrogenase 1345 units/L (91-180) H 04/14/22 07:28 Troponin T < 0.010 ng/mL (0.00-0.029) 04/09/22 12:52 C-Reactive Protein 4.80 mg/dL (0.00-1.30) H 04/14/22 07:28 NT-Pro-B Natriuret Pep 101.1 pg/mL (0-900) 04/09/22 13:45 Total Protein 5.6 g/dL (6.3-8.2) L 04/11/22 03:58 Albumin 2.7 g/dL (3.9-5) L 04/11/22 03:58 Albumin/Globulin Ratio 0.9 % 04/11/22 03:58 Procalcitonin 3.13 ng/mL (<0.15) 04/10/22 11:47 TSH 1.560 mlU/mL (0.270-4.200) 04/09/22 12:52 Free T4 1.33 ng/dL (0.76-1.46) 04/09/22 12:52 Urine Color Yellow (Yellow) 04/09/22 13:24 Urine Turbidity Clear (Clear) 04/09/22 13:24 Urine pH 5.0 (5.0-7.0) 04/09/22 13:24 Ur Specific [place] 1.011 (1.003-1.030) 04/09/22 13:24 Urine Protein 30 mg/dl mg/dL (Negative) 04/09/22 13:24 Urine Glucose (UA) Neg mg/dL (Negative) 04/09/22 13:24 Urine Ketones 20 mg/dL (Negative) 04/09/22 13:24 Urine Blood Neg (Negative) 04/09/22 13:24 Urine Nitrite Neg (Negative) 04/09/22 13:24 Urine Bilirubin Neg (Negative) 04/09/22 13:24 Urine Urobilinogen 4.0 mg/dL (<2.0) 04/09/22 13:24 Ur Leukocyte Esterase Neg (Negative) 04/09/22 13:24 Urine WBC (Auto) 2.0 /HPF (0.0-6.0) 04/09/22 13:24 Urine RBC (Auto) < 1.0 /HPF (0.0-6.0) 04/09/22 13:24 U Epithel Cells (Auto) < 1.0 /HPF (0-13.0) 04/09/22 13:24 Urine Mucus Few /HPF 04/09/22 13:24 Urine Eosinophils None seen (None Seen) 04/10/22 14:50 Urine Total Volume 750 ml 04/11/22 11:23 Urine Creatinine 160.5 mg/dL (0.1-20.0) H 04/11/22 11:23 Ur Creatinine 24 Hour 1.2 (0.8-2.8) 04/11/22 11:23 Height (in) Not Reportable 04/11/22 11:23 Weight (lb) Not Reportable 04/11/22 11:23 Creatinine Clearance Not Reportable 04/11/22 11:23 Protein/Creatinin Ratio 0.77 04/10/22 14:50 Urine Sodium 17 mmol/L 04/10/22 14:50 Urine Total Protein 172 mg/dL (5-11.8) H 04/10/22 14:50 Random Vancomycin 11.9 ug/mL (0-40.0) 04/11/22 03:58 Urine Opiates Screen Presumptive negative 04/09/22 22:58 Urine Methadone Screen Presumptive negative 04/09/22 22:58 Ur Barbiturates Screen Presumptive negative 04/09/22 22:58 Ur Phencyclidine Scrn Presumptive negative 04/09/22 22:58 Ur Amphetamines Screen Presumptive negative 04/09/22 22:58 U Benzodiazepines Scrn Presumptive negative 04/09/22 22:58 Urine Cocaine Screen Presumptive negative 04/09/22 22:58 U Marijuana (THC) Screen Presumptive negative 04/09/22 22:58 Drugs of Abuse Note Disclamer 04/09/22 22:58 Coronavirus (PCR) Positive (Negative) A 04/09/22 13:02 Influenza A (RT-PCR) Negative (Negative) 04/09/22 14:15 Influenza B (RT-PCR) Negative (Negative) 04/09/22 14:15 Microbiology: Microbiology 04/09/22 12:52 Peripheral/Venous Blood Culture - Preliminary NO GROWTH AFTER 4 DAYS 04/09/22 12:52 Peripheral/Venous Blood Culture - Preliminary NO GROWTH AFTER 4 DAYS [place]/IV: Voiding Method Indwelling Catheter Active Medications - Current Medications Current Medications: Generic Name Dose Route Start Last Admin Trade Name Freq PRN Reason Stop Dose Admin Acetaminophen 650 mg 04/09/22 18:11 Acetaminophen 325 Mg Tab PO Q4H PRN Pain MILD(1-3)/Fever >100.5/CARCAMO Dexamethasone 8 mg 04/09/22 19:00 04/13/22 19:27 Dexamethasone 4 Mg/Ml Vial IV 04/18/22 19:01 8 mg Q24H JO ANN Administration Dextrose 0 ml 04/10/22 00:40 Dextrose 50% In Water (25gm) 50 Ml Syringe IV Q30MIN PRN Hypoglycemia Protocol Enoxaparin Sodium 30 mg 04/10/22 10:00 04/14/22 09:04 Enoxaparin 30 Mg/0.3 Ml Inj SUB-Q 30 mg QDAY JO ANN Administration Famotidine 10 mg 04/14/22 10:00 04/14/22 09:04 Famotidine 10 Mg Tab FEEDTUBE 10 mg BID JO ANN Administration Fentanyl 50 mcg 04/12/22 16:36 04/14/22 06:05 Fentanyl 100 Mcg/2 Ml Inj IV 50 mcg Q2H PRN Administration Pain , Severe (7-10) NORepinephrine/NS 8 MG-250 ML 8 mg in 250 mls @ 3.75 mls/hr 04/09/22 16:00 04/11/22 12:01 Norepinephrine/Ns 8 Mg-250 Ml (Double Conc) IV 0 mcg/min TITRATE JO ANN 0 mls/hr Titration Protocol 2 MCG/MIN Vasopressin 20 unit/ Sodium 101 mls @ 9.09 mls/hr 04/09/22 18:00 04/12/22 08:42 Chloride IV 0 units/min TITR JO ANN 0 mls/hr Titration Protocol 0.03 UNITS/MIN Ceftriaxone Sodium 2 gm in 100 mls @ 200 mls/hr 04/11/22 12:00 04/13/22 13:00 Rocephin/Ns 2 Gm/100 Ml IV 04/15/22 12:29 200 mls/hr Q24H JO ANN Administration Dexmedetomidine HCl 400 mcg/ 104 mls @ 4.321 mls/hr 04/13/22 21:52 04/14/22 09:05 Sodium Chloride IV 0.4 mcg/kg/hr TITRATE JO ANN 8.642 mls/hr Administration Protocol 0.2 MCG/KG/HR Insulin Glargine 10 units 04/12/22 22:00 04/13/22 21:04 Insulin Glargine 100 Units/Ml SUB-Q 10 units QHS JO ANN Administration Insulin Human Lispro 0 unit 04/12/22 12:00 04/14/22 06:05 Insulin Lispro 100 Unit/Ml SUB-Q 3 unit Q6HR JO ANN Administration Protocol Ondansetron HCl 4 mg 04/09/22 18:11 Ondansetron 4 Mg/2 Ml Inj IV Q8H PRN Nausea And Vomiting Quetiapine Fumarate 50 mg 04/14/22 10:00 04/14/22 09:14 Quetiapine 25 Mg Tab FEEDTUBE 50 mg BID JO ANN Administration Senna 8.8 mg 04/12/22 22:00 04/13/22 21:05 Sennosides Oral Liqd 8.8 Mg/5 Ml Oral Liqd PO 8.8 mg QHS JO ANN Administration Sodium Chloride 10 ml 04/09/22 22:00 04/14/22 09:04 Sodium Chloride 0.9% 10 Ml Flush Syringe IV 10 ml BID JO ANN Administration Sodium Chloride 10 ml 04/09/22 18:11 Sodium Chloride 0.9% 10 Ml Flush Syringe IV PRN PRN LINE FLUSH Nutrition/Malnutrition Assess - Dietary Evaluation Nutrition/Malnutrition Findings: Nutrition Notes Start: 04/12/22 10:07 Freq: Status: Active Protocol: Document 04/12/22 10:07 RYDER (Rec: 04/12/22 10:15 RYDER [id number]) Nutrition Notes Need for Assessment generated from: MD Order,technology strategist,MST Initial or Follow up Assessment Current Diagnosis Acute Kidney Injury,Diabetes, Sepsis,Respiratory Failure Other Pertinent Diagnosis AMS, Bilat pneu, COVID-19 (+), Hypotension Current Diet No diet ordered Labs/Tests Na 146 BUN 38 Cr 2.3 BG 173 Ca 6.7 (adjusted 7.74) Pertinent Medications Decadron, D5 1/2NS at 100ml/hr , Dopamine gtt, Insulin gtt, Levophed gtt, Vasopressin gtt Height 5 ft 7 in Weight 83.1 kg [place] Body Weight (kg) 61.36 BMI 28.7 Weight Status Overweight Subjective/Other Information RD consulted for TF; pt screened for malnutrition and skin risks (Levy score: 14). Pt on vent support. Per records, pt had been feeling weak and SOB x 1 week [employer] LEATH[employer]. She is unvaccinated against COVID-19. Burn Absent Trauma Absent Minimum of two criteria No #1 Nutrition Diagnosis Inadequate oral intake Etiology mech ventilation As Evidenced by Signs and Symptoms pt NPO Is patient on ventilator? Yes Is Patient Ambulatory and/or Out of Bed No REE-([facility]-confined to bed) 2511.836 Calculation Used for Recommendations [facility] Additional Notes Pro needs 1.2-2g/k-166g/ day Fluid needs 1ml/kcal Nutrition Intervention Nutrition Support: Glucerna 1.2 at 55ml/hr with 100ml water flush q4h. Kcal 1,584 Protein (gm) 79 Carbohydrates (gm) 151 Fat (gm) 79 Fluid (mL) 1,063 Fiber (gm) 21 Goal #1 TF tolerance Goal #2 TF to meet at least 75% energy and pro needs Anticipated Discharge Needs: Unable to identify at this time Follow-Up By: 04/15/22 Additional Comments F/U: new TF, vent status, renal function, pressor support
--- NOTE | 2022-04-14 11:38 | Cat Scan Report ---
CT head/brain wo con INDICATION / CLINICAL INFORMATION: AMS. History of ovarian carcinoma. TECHNIQUE: Axial CT imaging of the brain was obtained without contrast. Coronal and sagittal reformatted imaging obtained and reviewed. All CT scans at this location are performed using CT dose reduction for ALAR A by means of automated exposure control. COMPARISON: Recent prior head CT 04/09/2022 FINDINGS: No intracranial hemorrhage, mass, or midline shift is appreciated. No extra-axial fluid collection or suggestion of acute territorial infarction. Ventricular system and basilar cisterns are grossly unre markable. Mild age-appropriate cerebral and cerebellar atrophy is present. Visualized paranasal sinuses and mastoid air cells are clear. No calvarial abnormality of significanc e. IMPRESSION: 1. No acute intracranial abnormality. Signer Name: Altagracia Duran MD Signed: 04/14/2022 11:34 AM Workstation Name: [id number]
[2022-04-14] MEDS: cefTRIAXone/NS 2 GM/100 ML 2 GM/100 ML BAG IV SCH (11:59)
--- NOTE | 2022-04-14 12:28 | Progress Note ---
Assessment and Plan Assessment and Plan COVID positive Sepsis Hypotension Diabetes Mellitus/DKA Acute Respiratory Failure Hypokalemia Metabolic Acidosis Hypophosphatemia Plan: Cr slightly worse, monitor Na 149, start D5W at 50 cc/hr. Ordered 24 hours Cr clearance Baseline serum creatinine unknown renal US -ve for obstruction COVID positive-as per ID Renally dose medications Obtain daily weights Monitor I/O's daily Will monitor renal function closely Subjective Date of service: 04/14/22 Principal diagnosis: ASHLEY Interval history: Making urine. NAD. Objective - Exam Narrative Exam: General appearance: Intubated - EENT Eyes: Absent: PERRL ENT: dentition normal - Neck Neck: Present: normal ROM - Respiratory Respiratory effort: On Vent Respiratory: bilateral: diminished - Cardiovascular Rhythm: regular Heart Sounds: Present: S1 & S2. Absent: systolic murmur, diastolic murmur - Extremities Extremities: no ischemia, pulses intact, pulses symmetrical, No edema, normal temperature, normal color, Full ROM Peripheral Pulses: within normal limits - Abdominal General gastrointestinal: soft, non-tender, non-distended, normal bowel sounds - Integumentary Integumentary: Present: warm, dry - Psychiatric Psychiatric: cooperative - Neurologic Neurologic: moves all extremities, other - Allied Health Allied health notes reviewed: nursing, RT, social work - Vital Signs Vital signs: Vital Signs - 12hr 04/14/22 04/14/22 04/14/22 01:00 02:00 03:00 Temperature Pulse Rate Pulse Rate [ 97 H 93 H 94 H None] Respiratory 39 H 31 H 37 H Rate Blood Pressure 125/59 121/60 129/61 O2 Sat by Pulse 91 91 91 Oximetry 04/14/22 04/14/22 04/14/22 04:00 04:02 06:00 Temperature 98.8 F Pulse Rate 87 88 Pulse Rate [ 90 85 None] Respiratory 28 H 27 H Rate Blood Pressure 126/67 126/67 127/62 O2 Sat by Pulse 90 92 90 Oximetry 04/14/22 04/14/22 04/14/22 07:00 08:00 08:29 Temperature 98.4 F Pulse Rate 94 H 93 H Pulse Rate [ 87 94 H None] Respiratory 29 H 32 H Rate Blood Pressure 122/70 119/68 119/68 O2 Sat by Pulse 90 90 93 Oximetry 04/14/22 04/14/22 04/14/22 08:30 10:00 11:00 Temperature Pulse Rate 93 H Pulse Rate [ 91 H 90 None] Respiratory 28 H 30 H Rate Blood Pressure 119/68 128/59 138/69 O2 Sat by Pulse 93 90 90 Oximetry 04/14/22 04/14/22 11:57 12:00 Temperature 97.5 F L Pulse Rate 90 Pulse Rate [ 89 None] Respiratory 30 H Rate Blood Pressure 138/69 O2 Sat by Pulse 90 Oximetry - Lab 04/14/22 09:26 04/14/22 07:28 Most recent lab results ABG pH 7.487 pH Units (7.350-7.450) H 04/14/22 03:54 ABG pCO2 31.4 mm Hg 04/14/22 03:54 ABG pO2 57.8 mm Hg (80.0-90.0) L 04/14/22 03:54 ABG HCO3 23.2 mmol/L (20.0-26.0) 04/14/22 03:54 ABG O2 Saturation 93.9 % (95.0-99.0) L 04/14/22 03:54 Calcium 8.4 mg/dL (8.4-10.2) 04/14/22 07:28 Phosphorus 3.60 mg/dL (2.5-4.5) 04/14/22 07:28 Magnesium 2.90 mg/dL (1.7-2.3) H 04/14/22 07:28 Urine Creatinine 160.5 mg/dL (0.1-20.0) H 04/11/22 11:23 Urine Sodium 17 mmol/L 04/10/22 14:50 Urine Total Protein 172 mg/dL (5-11.8) H 04/10/22 14:50 Medications & Allergies - Medications Allergies/Adverse Reactions: Allergies No Known Allergies Allergy (Verified 04/09/22 13:44) Active Medications: Generic Name Dose Route Start Last Admin Trade Name Freq PRN Reason Stop Dose Admin Acetaminophen 650 mg 04/09/22 18:11 Acetaminophen 325 Mg Tab PO Q4H PRN Pain MILD(1-3)/Fever >100.5/CARCAMO Dexamethasone 8 mg 04/09/22 19:00 04/13/22 19:27 Dexamethasone 4 Mg/Ml Vial IV 04/18/22 19:01 8 mg Q24H JO ANN Administration Dextrose 0 ml 04/10/22 00:40 Dextrose 50% In Water (25gm) 50 Ml Syringe IV Q30MIN PRN Hypoglycemia Protocol Enoxaparin Sodium 30 mg 04/10/22 10:00 04/14/22 09:04 Enoxaparin 30 Mg/0.3 Ml Inj SUB-Q 30 mg QDAY JO ANN Administration Famotidine 10 mg 04/14/22 10:00 04/14/22 09:04 Famotidine 10 Mg Tab FEEDTUBE 10 mg BID JO ANN Administration Fentanyl 50 mcg 04/12/22 16:36 04/14/22 06:05 Fentanyl 100 Mcg/2 Ml Inj IV 50 mcg Q2H PRN Administration Pain , Severe (7-10) NORepinephrine/NS 8 MG-250 ML 8 mg in 250 mls @ 3.75 mls/hr 04/09/22 16:00 04/11/22 12:01 Norepinephrine/Ns 8 Mg-250 Ml (Double Conc) IV 0 mcg/min TITRATE JO ANN 0 mls/hr Titration Protocol 2 MCG/MIN Vasopressin 20 unit/ Sodium 101 mls @ 9.09 mls/hr 04/09/22 18:00 04/12/22 08:42 Chloride IV 0 units/min TITR JO ANN 0 mls/hr Titration Protocol 0.03 UNITS/MIN Ceftriaxone Sodium 2 gm in 100 mls @ 200 mls/hr 04/11/22 12:00 04/14/22 11:59 Rocephin/Ns 2 Gm/100 Ml IV 04/15/22 12:29 200 mls/hr Q24H JO ANN Administration Dexmedetomidine HCl 400 mcg/ 104 mls @ 4.321 mls/hr 04/13/22 21:52 04/14/22 12:00 Sodium Chloride IV 0.5 mcg/kg/hr TITRATE JO ANN 10.803 mls/hr Titration Protocol 0.2 MCG/KG/HR Insulin Glargine 10 units 04/12/22 22:00 04/13/22 21:04 Insulin Glargine 100 Units/Ml SUB-Q 10 units QHS JO ANN Administration Insulin Human Lispro 0 unit 04/12/22 12:00 04/14/22 11:58 Insulin Lispro 100 Unit/Ml SUB-Q 2 unit Q6HR JO ANN Administration Protocol Ondansetron HCl 4 mg 04/09/22 18:11 Ondansetron 4 Mg/2 Ml Inj IV Q8H PRN Nausea And Vomiting Quetiapine Fumarate 50 mg 04/14/22 10:00 04/14/22 09:14 Quetiapine 25 Mg Tab FEEDTUBE 50 mg BID JO ANN Administration Senna 8.8 mg 04/12/22 22:00 04/13/22 21:05 Sennosides Oral Liqd 8.8 Mg/5 Ml Oral Liqd PO 8.8 mg QHS JO ANN Administration Sodium Chloride 10 ml 04/09/22 22:00 04/14/22 09:04 Sodium Chloride 0.9% 10 Ml Flush Syringe IV 10 ml BID JO ANN Administration Sodium Chloride 10 ml 04/09/22 18:11 Sodium Chloride 0.9% 10 Ml Flush Syringe IV PRN PRN LINE FLUSH
[2022-04-14 15:53] LABS: ABG Base Excess 1.4 mmol/L (-2.0-3.0); ABG HCO3 24.1 mmol/L (20.0-26.0); ABG Methemoglobin 0.7 % (0.0-1.5); ABG Oxygen Saturation 87.3 % (95.0-99.0); ABG PCO2 31.1 mm Hg; ABG PH 7.506 pH Units (7.350-7.450)
[2022-04-14] MEDS ORDERED: DEXTROSE 5% IN WATER 1,000 ML IV SCH (17:00)
[2022-04-14] MEDS: dexAMETHasone 4 MG/ML VIAL IV SCH (18:10)
[2022-04-14] MEDS: INSULIN GLARGINE 100 UNITS/ML SUB-Q SCH (21:08)
[2022-04-14] MEDS: SENNOSIDES ORAL LIQD 8.8 MG/5 ML ORAL LIQD PO SCH (21:09)
[2022-04-15] MEDS: INSULIN LISPRO 100 UNIT/ML SUB-Q SCH ×4 (00:04→18:35)
[2022-04-15] MEDS: fentaNYL 100 MCG/2 ML INJ IV PRN ×2 (00:32→04:49)
[2022-04-15 04:01] LABS: ABG Base Excess 1.9 mmol/L (-2.0-3.0); ABG HCO3 25.4 mmol/L (20.0-26.0); ABG Methemoglobin 0.6 % (0.0-1.5); ABG Oxygen Saturation 90.5 % (95.0-99.0); ABG PCO2 35.1 mm Hg; ABG PH 7.477 pH Units (7.350-7.450); ABG PO2 59.1 mm Hg (80.0-90.0)
--- NOTE | 2022-04-15 09:21 | XRay Report ---
CHEST - 1 VIEW 0805 hours INDICATION: resp failure COMPARISON: Yesterday FINDINGS: Support devices: A right arm PICC has been inserted which terminates in the superior right atrium. T he nasogastric tube and left [id number] are unchanged. Heart: Stable mild cardiomegaly Lungs/pleura: Given differences in technique, bilateral lung opacities appear stable. Small left ple ural effusion could be present. No pneumothorax. Additional findings: None. IMPRESSION: Unchanged exam. Signer Name: Sumanth Tilley Jr, MD Signed: 04/15/2022 9:17 AM Workstation Name: [id number]
[2022-04-15] MEDS: ENOXAPARIN 30 MG/0.3 ML INJ SUB-Q SCH (09:25)
[2022-04-15] MEDS: QUEtiapine 25 MG TAB FEEDTUBE SCH (09:25)
[2022-04-15] MEDS: FAMOTIDINE 10 MG TAB FEEDTUBE SCH ×2 (09:25→21:08)
[2022-04-15] MEDS: fentaNYL DRIP Premix 2,000 MCG/100 ML BAG IV SCH ×2 (09:30→18:15)
[2022-04-15] MEDS ORDERED: fentaNYL DRIP Premix 2,000 MCG/100 ML BAG IV SCH (10:00)
[2022-04-15 10:07] LABS: Hematocrit 27.7 % (30.3-42.9); Hemoglobin 9.3 gm/dl (10.1-14.3); Mean Corpuscular HGB Conc 33 % (30-34); Mean Corpuscular Volume 87 fl (79-97); Platelet Count 168 K/mm3 (140-440); Red Blood Count 3.18 M/mm3 (3.65-5.03); Red Cell Distribution Width 15.8 % (13.2-15.2)
--- NOTE | 2022-04-15 10:55 | Progress Note ---
<JULESERIN PhanLisa - Last Filed: 04/15/22 13:51> Assessment and Plan Assessment and plan: This is a 77-year-old female with DM and ovarian cancer in remission admitted for septic shock secondary to COVID-19 pneumonia, acute kidney injury, acute hypoxic respiratory failure and currently in multiorgan failure Neuro: Acute metabolic encephalopathy, myoclonic jerks -Myoclonic jerking aborted with Ativan early in admission but none noted since -Avoid delirium -Reorientation as needed -Maintain sleep-wake cycle -Neurology consulted, appreciate recommendations -Initial CT head showed no acute abnormality -EEG absence of definite epileptiform abnormalities would not rule out the possibility of epilepsy, compatible with moderate to moderately severe diffuse encephalopathy -Repeat CTH shows no acute abnormality -repeat eeg pending Cardiac: NAD -Blood pressure monitoring per protocol -s/p vasopressor support with Levophed, dobutamine, vasopressin -MAP goal greater than 65 -Echocardiogram shows LVEF 55 to 60%, normal bivalve function, mildly dilated right ventricle Respiratory: Acute hypoxic respiratory failure, ARDS -CCM consulted, appreciate recommendations -Intubated in the emergency department 04/09 with 7.00 ETT at 22 the lips -A.m. vent settings: Assist-control rate 20, tidal volume 400, PEEP 10, FiO2 55% -See RT notes for titration -A.m. ABG and CXR noted -VAP bundle -SPO2 monitoring GI: Transaminitis -24 hours +1080 ml -PPI -NTR consult for tube feedings -FWF 250 ml q4 -BR: [place] S -Trend LFTs : Acute kidney injury likely secondary to ischemic acute tubular necrosis, hypernatremia -Nephrology consulted, appreciate recommendations -Strict intake and output -Renally dose medications -Avoid nephrotoxic medications -Daily weights -FeNa calculated at 0.13 -Renal ultrasound Shows mild echogenic kidneys which can be seen in medical renal disease, no hydronephrosis, small amount of free fluid in the abdomen -s/p IV sodium bicarbonate drip and D5W -04/13 lasix x1 -Trend BMP ID: Septic shock secondary to COVID-19 pneumonia, lactic acidosis -Infectious disease consulted, appreciate recommendations -Admit CXR showed bilateral air space opacities -Covid 19 PCR (+) -Antibiotic therapy with Rocephin (04/11-04/15) and vancomycin (04/11-04/14) -Decadron 8 mg daily for 10 days (04/09-04/18) -Per ID: Due to renal failure, not a candidate for remdesivir -S/p Actemra 04/10 -Contact/droplet precautions -f/u blood culture -Monitor WBC and temperature curve -Trend COVID-19 inflammatory markers Endo: s/p DKA, h/o DM -S/p insulin drip -Avoid hypoglycemia -SSI and long-acting insulin, titrate as needed -Accu-Cheks every 6 Heme: Leukocytosis, elevated Ddimer -BLE dopplar US shows no DVT -Trend CBC -Transfuse hemoglobin less than 7 -Lovenox subcu -Monitor for signs of bleeding -SCDs to BLE while in bed The high probability of a clinically significant, sudden or life threatening deterioration of the [multi] system(s) required my full and direct attention, intervention and personal management. The aggregate critical care time was [60] minutes. This time is in addition to time spent performing reported procedures but includes the following: [x] Data Review and interpretation [x] Patient assessment and monitoring of vital signs [x] Documentation [x] Medication orders and management Disposition Plan: icu Total Time Spent with Patient (Minutes): 60 History Interval history: This is a 77-year-old female with DM and ovarian cancer in remission s/p partial hysterectomy and oophorectomy presented to emergency department on 04/09 with altered mental status, weakness, shortness of breath over the past week with worsening symptoms on 04/09. Of note patient was not vaccinated for COVID-19. In the emergency department patient was very hypoxic on arrival and was placed on 100% nonrebreather, patient was tachypneic and hypotensive and initially was alert and oriented however became lethargic and was intubated for airway protection. Work-up in the emergency department revealed leukocytosis, acute kidney injury, hypokalemia, hyperglycemia. Patient was admitted to the hospitalist service with consults to [facility] with septic shock, COVID-19 PUI, hypokalemia, acute kidney injury, acute metabolic encephalopathy, bilateral pneumonia, lactic acidosis and acute hypoxic respiratory failure. Hospital course to date: 04/10: Patient noted to have myoclonic jerking this morning and was given 2 mg of Ativan which aborted the jerking. Neurology was consulted and MRI and EEG were ordered. Patient admits to unstable for MRI at this time. Patient is hypotensive and currently on Levophed, vasopressin and dobutamine. Nephrology consulted for renal failure. Remains on insulin drip and was placed on a bicarbonate drip this morning. Infectious disease consulted who added vancomycin and ordered follow-up labs. Dr. Craig had a conversation with family about prognosis and given multisystem organ failure. We will continue supportive care. 04/11/22-patient seen at bedside. T/V orally intubated. No purposeful response on assessment. make periodic jerking movement. EEG done today-will f/u with result. BICarb d/c -acidosis has improved-started on D5 11/28 NS. Reviewed specialist note and reces-renal US-no acute finding. Continue Pressors for MAPs >65. Wean as tolerated. Bicarb-d/c and start D5W. 04/12: Patient is following commands, nutrition consulted for tube feedings, PEEP decreased with possible PSV in the a.m., insulin drip discontinued and SSI/basal dose insulin started. [facility] will update son. 04/13: Renal function continues to improve, intermittently following commands, [facility] ordered 1 x 40 mg of Lasix repeat CXR in the a.m. Tolerating tube feedings. 04/14: PEEP increased per [facility], will not repeat Lasix again due to increasing renal functions. Ordered CT head. Overnight patient was tachypneic and agitated and Precedex drip was started. We will start Seroquel and wean Precedex as tolerated. 04/15: IVF started by nephro yesterday for hypernatremia, awaiting BMP for today to result. Overnight patient was started on propofol and has propofol and precedex infusing. Fentanyl gtt ordered and precedex gtt discontinued. Hospitalist Physical - Constitutional Vitals: Temp Pulse Resp BP Pulse Ox 98.1 F 72 21 115/64 89 04/15/22 08:00 04/15/22 10:00 04/15/22 10:00 04/15/22 10:04/15/22 10:00 General appearance: Present: no acute distress, well-nourished, obese - EENT Eyes: Present: miosis (round) - Neck Neck: Present: normal ROM - Respiratory Respiratory effort: normal Respiratory: bilateral: diminished, rhonchi - Cardiovascular Rhythm: regular Heart Sounds: Present: S1 & S2. Absent: systolic murmur, diastolic murmur - Extremities Extremities: no ischemia, pulses intact, pulses symmetrical, No edema, normal temperature, normal color Peripheral Pulses: within normal limits - Abdominal General gastrointestinal: soft, non-tender, non-distended, normal bowel sounds - Integumentary Integumentary: Present: warm, dry - Neurologic Neurologic: other (gag/cough intact, pupils pinpoint, no response to painful stimuli) - Allied Health Allied health notes reviewed: nursing, RT, social work HEART Score - HEART Score Age: > 65 Risk factors: 1-2 risk factors Troponin: Troponin T < 0.010 ng/mL (0.00-0.029) 04/09/22 12:52 Troponin: < normal limit - Critical Actions Critical Actions: 4-6 pts:12-16.6% risk of adverse cardiac event. Should be admitted Results - Labs CBC & Chem 7: 04/15/22 09:40 04/15/22 10:00 Labs: Laboratory Last Values WBC 19.3 K/mm3 (4.5-11.0) H 04/15/22 09:40 RBC 3.18 M/mm3 (3.65-5.03) L 04/15/22 09:40 Hgb 9.3 gm/dl (10.1-14.3) L 04/15/22 09:40 Hct 27.7 % (30.3-42.9) L 04/15/22 09:40 MCV 87 fl (79-97) 04/15/22 09:40 MCH 29 pg (28-32) 04/15/22 09:40 MCHC 33 % (30-34) 04/15/22 09:40 RDW 15.8 % (13.2-15.2) H 04/15/22 09:40 Plt Count 168 K/mm3 (140-440) 04/15/22 09:40 Lymph % (Auto) 5.7 % (13.4-35.0) L 04/12/22 00:01 [place] % (Auto) 4.5 % (0.0-7.3) 04/12/22 00:01 Eos % (Auto) 0.0 % (0.0-4.3) 04/12/22 00:01 Baso % (Auto) 0.2 % (0.0-1.8) 04/12/22 00:01 Lymph # (Auto) 0.9 K/mm3 (1.2-5.4) L 04/12/22 00:01 [place] # (Auto) 0.7 K/mm3 (0.0-0.8) 04/12/22 00:01 Eos # (Auto) 0.0 K/mm3 (0.0-0.4) 04/12/22 00:01 Baso # (Auto) 0.0 K/mm3 (0.0-0.1) 04/12/22 00:01 Add Manual Diff Complete 04/10/22 04:24 Total Counted 100 04/10/22 04:24 Seg Neutrophils % 89.6 % (40.0-70.0) H 04/12/22 00:01 Seg Neuts % (Manual) 94.0 % (40.0-70.0) H 04/10/22 04:24 Band Neutrophils % 0 % 04/10/22 04:24 Lymphocytes % (Manual) 3.0 % (13.4-35.0) L 04/10/22 04:24 Reactive Lymphs % (Man) 0 % 04/10/22 04:24 Monocytes % (Manual) 3.0 % (0.0-7.3) 04/10/22 04:24 Eosinophils % (Manual) 0 % (0.0-4.3) 04/10/22 04:24 Basophils % (Manual) 0 % (0.0-1.8) 04/10/22 04:24 Metamyelocytes % 0 % 04/10/22 04:24 Myelocytes % 0 % 04/10/22 04:24 Promyelocytes % 0 % 04/10/22 04:24 Blast Cells % 0 % 04/10/22 04:24 Nucleated RBC % Not Reportable 04/10/22 04:24 Seg Neutrophils # 14.6 K/mm3 (1.8-7.7) H 04/12/22 00:01 Seg Neutrophils # Man 15.4 K/mm3 (1.8-7.7) H 04/10/22 04:24 Band Neutrophils # 0.0 K/mm3 04/10/22 04:24 Lymphocytes # (Manual) 0.5 K/mm3 (1.2-5.4) L 04/10/22 04:24 Abs React Lymphs (Man) 0.0 K/mm3 04/10/22 04:24 Monocytes # (Manual) 0.5 K/mm3 (0.0-0.8) 04/10/22 04:24 Eosinophils # (Manual) 0.0 K/mm3 (0.0-0.4) 04/10/22 04:24 Basophils # (Manual) 0.0 K/mm3 (0.0-0.1) 04/10/22 04:24 Metamyelocytes # 0.0 K/mm3 04/10/22 04:24 Myelocytes # 0.0 K/mm3 04/10/22 04:24 Promyelocytes # 0.0 K/mm3 04/10/22 04:24 Blast Cells # 0.0 K/mm3 04/10/22 04:24 WBC Morphology Not Reportable 04/10/22 04:24 Hypersegmented Neuts Not Reportable 04/10/22 04:24 Hyposegmented Neuts Not Reportable 04/10/22 04:24 Hypogranular Neuts Not Reportable 04/10/22 04:24 Smudge Cells Not Reportable 04/10/22 04:24 Toxic Granulation Not Reportable 04/10/22 04:24 Toxic Vacuolation Not Reportable 04/10/22 04:24 Dohle Bodies Not Reportable 04/10/22 04:24 Pelger-Huet Anomaly Not Reportable 04/10/22 04:24 Aleja Rods Not Reportable 04/10/22 04:24 Platelet Estimate Consistent w auto 04/10/22 04:24 Clumped Platelets Not Reportable 04/10/22 04:24 Plt Clumps, EDTA Not Reportable 04/10/22 04:24 Large Platelets Not Reportable 04/10/22 04:24 Giant Platelets Rare 04/10/22 04:24 Platelet Satelliting Not Reportable 04/10/22 04:24 Plt Morphology Comment Not Reportable 04/10/22 04:24 RBC Morphology Normal 04/10/22 04:24 Dimorphic RBCs Not Reportable 04/10/22 04:24 Polychromasia Not Reportable 04/10/22 04:24 Hypochromasia Not Reportable 04/10/22 04:24 Poikilocytosis Not Reportable 04/10/22 04:24 Anisocytosis Not Reportable 04/10/22 04:24 Microcytosis Not Reportable 04/10/22 04:24 Macrocytosis Not Reportable 04/10/22 04:24 Spherocytes Not Reportable 04/10/22 04:24 Pappenheimer Bodies Not Reportable 04/10/22 04:24 Sickle Cells Not Reportable 04/10/22 04:24 Target Cells Not Reportable 04/10/22 04:24 Tear Drop Cells Not Reportable 04/10/22 04:24 Ovalocytes Not Reportable 04/10/22 04:24 Helmet Cells Not Reportable 04/10/22 04:24 [place] Bodies Not Reportable 04/10/22 04:24 [place] Rings Not Reportable 04/10/22 04:24 [place] Cells Not Reportable 04/10/22 04:24 Bite Cells Not Reportable 04/10/22 04:24 Crenated Cell Not Reportable 04/10/22 04:24 Elliptocytes Not Reportable 04/10/22 04:24 Acanthocytes (Spur) Not Reportable 04/10/22 04:24 Rouleaux Not Reportable 04/10/22 04:24 Hemoglobin C Crystals Not Reportable 04/10/22 04:24 Schistocytes Not Reportable 04/10/22 04:24 Malaria parasites Not Reportable 04/10/22 04:24 [place] Bodies Not Reportable 04/10/22 04:24 Hem Pathologist Commnt No 04/10/22 04:24 PT 14.5 Sec. (12.2-14.9) 04/09/22 12:52 INR 1.02 (0.87-1.13) 04/09/22 12:52 D-Dimer 5586.76 ng/mlDDU (0-234) H 04/14/22 07:28 ABG pH 7.477 pH Units (7.350-7.450) H 04/15/22 03:43 ABG pCO2 35.1 mm Hg 04/15/22 03:43 ABG pO2 59.1 mm Hg (80.0-90.0) L 04/15/22 03:43 ABG HCO3 25.4 mmol/L (20.0-26.0) 04/15/22 03:43 ABG O2 Saturation 90.5 % (95.0-99.0) L 04/15/22 03:43 ABG O2 Content 11.9 (0.0-44) 04/15/22 03:43 ABG Base Excess 1.9 mmol/L (-2.0-3.0) 04/15/22 03:43 ABG Hemoglobin 9.5 gm/dl (12.0-16.0) L 04/15/22 03:43 ABG Carboxyhemoglobin 1.4 % (0.0-5.0) 04/15/22 03:43 ABG Methemoglobin 0.6 % (0.0-1.5) 04/15/22 03:43 VBG pH 7.303 (7.320-7.420) L 04/09/22 12:52 Oxyhemoglobin 88.7 % (95.0-99.0) L 04/15/22 03:43 FiO2 55 % 04/15/22 03:43 Sodium 149 mmol/L (137-145) H 04/14/22 07:28 Potassium 4.2 mmol/L (3.6-5.0) 04/14/22 07:28 Chloride 110.3 mmol/L (98-107) H 04/14/22 07:28 Carbon Dioxide 22 mmol/L (22-30) 04/14/22 07:28 Anion Gap 21 mmol/L 04/14/22 07:28 BUN 57 mg/dL (7-17) H 04/14/22 07:28 Creatinine 2.3 mg/dL (0.6-1.2) H 04/14/22 07:28 Estimated GFR 25 ml/min 04/14/22 07:28 BUN/Creatinine Ratio 25 % 04/14/22 07:28 Glucose 205 mg/dL (65-100) H 04/14/22 07:28 POC Glucose 246 mg/dL (70-105) H 04/15/22 00:03 Lactic Acid 6.10 mmol/L (0.7-2.0) H* 04/09/22 Unknown Calcium 8.4 mg/dL (8.4-10.2) 04/14/22 07:28 Phosphorus 3.60 mg/dL (2.5-4.5) 04/14/22 07:28 Magnesium 2.90 mg/dL (1.7-2.3) H 04/14/22 07:28 Ferritin 454.7 ng/mL (10.0-200.0) H 04/14/22 07:28 Total Bilirubin 0.60 mg/dL (0.1-1.2) 04/11/22 03:58 AST 106 units/L (5-40) H 04/11/22 03:58 ALT 60 units/L (7-56) H 04/11/22 03:58 Alkaline Phosphatase 54 units/L (35-129) 04/11/22 03:58 Ammonia 20.0 umol/L (25-60) L 04/09/22 12:52 Lactate Dehydrogenase 1345 units/L (91-180) H 04/14/22 07:28 Troponin T < 0.010 ng/mL (0.00-0.029) 04/09/22 12:52 C-Reactive Protein 4.80 mg/dL (0.00-1.30) H 04/14/22 07:28 NT-Pro-B Natriuret Pep 101.1 pg/mL (0-900) 04/09/22 13:45 Total Protein 5.6 g/dL (6.3-8.2) L 04/11/22 03:58 Albumin 2.7 g/dL (3.9-5) L 04/11/22 03:58 Albumin/Globulin Ratio 0.9 % 04/11/22 03:58 Procalcitonin 3.13 ng/mL (<0.15) 04/10/22 11:47 TSH 1.560 mlU/mL (0.270-4.200) 04/09/22 12:52 Free T4 1.33 ng/dL (0.76-1.46) 04/09/22 12:52 Urine Color Yellow (Yellow) 04/09/22 13:24 Urine Turbidity Clear (Clear) 04/09/22 13:24 Urine pH 5.0 (5.0-7.0) 04/09/22 13:24 Ur Specific [place] 1.011 (1.003-1.030) 04/09/22 13:24 Urine Protein 30 mg/dl mg/dL (Negative) 04/09/22 13:24 Urine Glucose (UA) Neg mg/dL (Negative) 04/09/22 13:24 Urine Ketones 20 mg/dL (Negative) 04/09/22 13:24 Urine Blood Neg (Negative) 04/09/22 13:24 Urine Nitrite Neg (Negative) 04/09/22 13:24 Urine Bilirubin Neg (Negative) 04/09/22 13:24 Urine Urobilinogen 4.0 mg/dL (<2.0) 04/09/22 13:24 Ur Leukocyte Esterase Neg (Negative) 04/09/22 13:24 Urine WBC (Auto) 2.0 /HPF (0.0-6.0) 04/09/22 13:24 Urine RBC (Auto) < 1.0 /HPF (0.0-6.0) 04/09/22 13:24 U Epithel Cells (Auto) < 1.0 /HPF (0-13.0) 04/09/22 13:24 Urine Mucus Few /HPF 04/09/22 13:24 Urine Eosinophils None seen (None Seen) 04/10/22 14:50 Urine Total Volume 750 ml 04/11/22 11:23 Urine Creatinine 160.5 mg/dL (0.1-20.0) H 04/11/22 11:23 Ur Creatinine 24 Hour 1.2 (0.8-2.8) 04/11/22 11:23 Height (in) Not Reportable 04/11/22 11:23 Weight (lb) Not Reportable 04/11/22 11:23 Creatinine Clearance Not Reportable 04/11/22 11:23 Protein/Creatinin Ratio 0.77 04/10/22 14:50 Urine Sodium 17 mmol/L 04/10/22 14:50 Urine Total Protein 172 mg/dL (5-11.8) H 04/10/22 14:50 Random Vancomycin 11.9 ug/mL (0-40.0) 04/11/22 03:58 Urine Opiates Screen Presumptive negative 04/09/22 22:58 Urine Methadone Screen Presumptive negative 04/09/22 22:58 Ur Barbiturates Screen Presumptive negative 04/09/22 22:58 Ur Phencyclidine Scrn Presumptive negative 04/09/22 22:58 Ur Amphetamines Screen Presumptive negative 04/09/22 22:58 U Benzodiazepines Scrn Presumptive negative 04/09/22 22:58 Urine Cocaine Screen Presumptive negative 04/09/22 22:58 U Marijuana (THC) Screen Presumptive negative 04/09/22 22:58 Drugs of Abuse Note Disclamer 04/09/22 22:58 Coronavirus (PCR) Positive (Negative) A 04/09/22 13:02 Influenza A (RT-PCR) Negative (Negative) 04/09/22 14:15 Influenza B (RT-PCR) Negative (Negative) 04/09/22 14:15 Microbiology: Microbiology 04/09/22 12:52 Peripheral/Venous Blood Culture - Final NO GROWTH AFTER 5 DAYS 04/09/22 12:52 Peripheral/Venous Blood Culture - Final NO GROWTH AFTER 5 DAYS [place]/IV: Voiding Method Indwelling Catheter Active Medications - Current Medications Current Medications: Generic Name Dose Route Start Last Admin Trade Name Freq PRN Reason Stop Dose Admin Acetaminophen 650 mg 04/09/22 18:11 Acetaminophen 325 Mg Tab PO Q4H PRN Pain MILD(1-3)/Fever >100.5/CARCAMO Dexamethasone 8 mg 04/09/22 19:00 04/14/22 18:10 Dexamethasone 4 Mg/Ml Vial IV 04/18/22 19:01 8 mg Q24H JO ANN Administration Dextrose 0 ml 04/10/22 00:40 Dextrose 50% In Water (25gm) 50 Ml Syringe IV Q30MIN PRN Hypoglycemia Protocol Enoxaparin Sodium 30 mg 04/10/22 10:00 04/15/22 09:25 Enoxaparin 30 Mg/0.3 Ml Inj SUB-Q 30 mg QDAY JO ANN Administration Famotidine 10 mg 04/14/22 10:00 04/15/22 09:25 Famotidine 10 Mg Tab FEEDTUBE 10 mg BID JO ANN Administration Fentanyl 50 mcg 04/15/22 09:25 Fentanyl 100 Mcg/2 Ml Inj IV Q10MIN PRN ANALGESIA NORepinephrine/NS 8 MG-250 ML 8 mg in 250 mls @ 3.75 mls/hr 04/09/22 16:00 04/11/22 12:01 Norepinephrine/Ns 8 Mg-250 Ml (Double Conc) IV 0 mcg/min TITRATE JO ANN 0 mls/hr Titration Protocol 2 MCG/MIN Vasopressin 20 unit/ Sodium 101 mls @ 9.09 mls/hr 04/09/22 18:00 04/12/22 08:42 Chloride IV 0 units/min TITR JO ANN 0 mls/hr Titration Protocol 0.03 UNITS/MIN Ceftriaxone Sodium 2 gm in 100 mls @ 200 mls/hr 04/11/22 12:00 04/14/22 11:59 Rocephin/Ns 2 Gm/100 Ml IV 04/15/22 12:29 200 mls/hr Q24H JO ANN Administration Propofol 1,000 mg in 100 mls @ 2.493 mls/hr 04/14/22 21:00 04/15/22 10:37 Diprivan 10 Mg/Ml IV 20 mcg/kg/min TITR JO ANN 9.972 mls/hr Titration Protocol 5 MCG/KG/MIN Fentanyl Citrate 2,000 mcg in 100 mls @ 4.155 mls/hr 04/15/22 10:00 04/15/22 09:45 Fentanyl Drip Premix IV 2 mcg/kg/hr TITR JO ANN 8.31 mls/hr Titration Protocol 1 MCG/KG/HR Insulin Glargine 15 units 04/15/22 22:00 Insulin Glargine 100 Units/Ml SUB-Q QHS JO ANN Insulin Human Lispro 0 unit 04/12/22 12:00 04/15/22 05:54 Insulin Lispro 100 Unit/Ml SUB-Q 3 unit Q6HR JO ANN Administration Protocol Ondansetron HCl 4 mg 04/09/22 18:11 Ondansetron 4 Mg/2 Ml Inj IV Q8H PRN Nausea And Vomiting Quetiapine Fumarate 50 mg 04/14/22 10:00 04/15/22 09:25 Quetiapine 25 Mg Tab FEEDTUBE 50 mg BID JO ANN Administration Senna 8.8 mg 04/12/22 22:00 04/14/22 21:09 Sennosides Oral Liqd 8.8 Mg/5 Ml Oral Liqd PO 8.8 mg QHS JO ANN Administration Sodium Chloride 10 ml 04/09/22 22:00 04/15/22 09:26 Sodium Chloride 0.9% 10 Ml Flush Syringe IV 10 ml BID JO ANN Administration Sodium Chloride 10 ml 04/09/22 18:11 Sodium Chloride 0.9% 10 Ml Flush Syringe IV PRN PRN LINE FLUSH Nutrition/Malnutrition Assess - Dietary Evaluation Nutrition/Malnutrition Findings: Nutrition Notes Start: 04/12/22 10:07 Freq: Status: Active Protocol: Document 04/12/22 10:07 RYDER (Rec: 04/12/22 10:15 RYDER [id number]) Nutrition Notes Need for Assessment generated from: MD Order,ground instructor basic,MST Initial or Follow up Assessment Current Diagnosis Acute Kidney Injury,Diabetes, Sepsis,Respiratory Failure Other Pertinent Diagnosis AMS, Bilat pneu, COVID-19 (+), Hypotension Current Diet No diet ordered Labs/Tests Na 146 BUN 38 Cr 2.3 BG 173 Ca 6.7 (adjusted 7.74) Pertinent Medications Decadron, D5 1/2NS at 100ml/hr , Dopamine gtt, Insulin gtt, Levophed gtt, Vasopressin gtt Height 5 ft 7 in Weight 83.1 kg [place] Body Weight (kg) 61.36 BMI 28.7 Weight Status Overweight Subjective/Other Information RD consulted for TF; pt screened for malnutrition and skin risks (Levy score: 14). Pt on vent support. Per records, pt had been feeling weak and SOB x 1 week [employer]PITAL[employer] RE[employer]. She is unvaccinated against COVID-19. Burn Absent Trauma Absent Minimum of two criteria No #1 Nutrition Diagnosis Inadequate oral intake Etiology mech ventilation As Evidenced by Signs and Symptoms pt NPO Is patient on ventilator? Yes Is Patient Ambulatory and/or Out of Bed No REE-([place] Jeor-confined to bed) 3241.836 Calculation Used for Recommendations [facility] Additional Notes Pro needs 1.2-2g/k-166g/ day Fluid needs 1ml/kcal Nutrition Intervention Nutrition Support: Glucerna 1.2 at 55ml/hr with 100ml water flush q4h. Kcal 1,584 Protein (gm) 79 Carbohydrates (gm) 151 Fat (gm) 79 Fluid (mL) 1,063 Fiber (gm) 21 Goal #1 TF tolerance Goal #2 TF to meet at least 75% energy and pro needs Anticipated Discharge Needs: Unable to identify at this time Follow-Up By: 04/15/22 Additional Comments F/U: new TF, vent status, renal function, pressor support <SHAKEEL HARRIS - Last Filed: 04/16/22 16:54> Assessment and Plan Assessment and plan: I saw and evaluated the patient. Discussed with the nurse practitioner and agree with their findings and plan as documented in this note. Hospitalist Physical - Constitutional Vitals: Temp Pulse Resp BP Pulse Ox 97.9 F 101 H 13 145/77 95 04/16/22 08:00 04/16/22 16:00 04/16/22 09:00 04/16/22 16:00 04/16/22 16:00 HEART Score - HEART Score Troponin: Troponin T < 0.010 ng/mL (0.00-0.029) 04/09/22 12:52 Results - Labs CBC & Chem 7: 04/16/22 Unknown 04/16/22 06:00 Labs: Laboratory Last Values WBC 25.2 K/mm3 (4.5-11.0) H 04/16/22 Unknown RBC 3.75 M/mm3 (3.65-5.03) 04/16/22 Unknown Hgb 10.7 gm/dl (10.1-14.3) 04/16/22 Unknown Hct 33.4 % (30.3-42.9) 04/16/22 Unknown MCV 89 fl (79-97) 04/16/22 Unknown MCH 29 pg (28-32) 04/16/22 Unknown MCHC 32 % (30-34) 04/16/22 Unknown RDW 15.8 % (13.2-15.2) H 04/16/22 Unknown Plt Count 174 K/mm3 (140-440) 04/16/22 Unknown Lymph % (Auto) 5.7 % (13.4-35.0) L 04/12/22 00:01 [place] % (Auto) 4.5 % (0.0-7.3) 04/12/22 00:01 Eos % (Auto) 0.0 % (0.0-4.3) 04/12/22 00:01 Baso % (Auto) 0.2 % (0.0-1.8) 04/12/22 00:01 Lymph # (Auto) 0.9 K/mm3 (1.2-5.4) L 04/12/22 00:01 [place] # (Auto) 0.7 K/mm3 (0.0-0.8) 04/12/22 00:01 Eos # (Auto) 0.0 K/mm3 (0.0-0.4) 04/12/22 00:01 Baso # (Auto) 0.0 K/mm3 (0.0-0.1) 04/12/22 00:01 Add Manual Diff Complete 04/10/22 04:24 Total Counted 100 04/10/22 04:24 Seg Neutrophils % 89.6 % (40.0-70.0) H 04/12/22 00:01 Seg Neuts % (Manual) 94.0 % (40.0-70.0) H 04/10/22 04:24 Band Neutrophils % 0 % 04/10/22 04:24 Lymphocytes % (Manual) 3.0 % (13.4-35.0) L 04/10/22 04:24 Reactive Lymphs % (Man) 0 % 04/10/22 04:24 Monocytes % (Manual) 3.0 % (0.0-7.3) 04/10/22 04:24 Eosinophils % (Manual) 0 % (0.0-4.3) 04/10/22 04:24 Basophils % (Manual) 0 % (0.0-1.8) 04/10/22 04:24 Metamyelocytes % 0 % 04/10/22 04:24 Myelocytes % 0 % 04/10/22 04:24 Promyelocytes % 0 % 04/10/22 04:24 Blast Cells % 0 % 04/10/22 04:24 Nucleated RBC % Not Reportable 04/10/22 04:24 Seg Neutrophils # 14.6 K/mm3 (1.8-7.7) H 04/12/22 00:01 Seg Neutrophils # Man 15.4 K/mm3 (1.8-7.7) H 04/10/22 04:24 Band Neutrophils # 0.0 K/mm3 04/10/22 04:24 Lymphocytes # (Manual) 0.5 K/mm3 (1.2-5.4) L 04/10/22 04:24 Abs React Lymphs (Man) 0.0 K/mm3 04/10/22 04:24 Monocytes # (Manual) 0.5 K/mm3 (0.0-0.8) 04/10/22 04:24 Eosinophils # (Manual) 0.0 K/mm3 (0.0-0.4) 04/10/22 04:24 Basophils # (Manual) 0.0 K/mm3 (0.0-0.1) 04/10/22 04:24 Metamyelocytes # 0.0 K/mm3 04/10/22 04:24 Myelocytes # 0.0 K/mm3 04/10/22 04:24 Promyelocytes # 0.0 K/mm3 04/10/22 04:24 Blast Cells # 0.0 K/mm3 04/10/22 04:24 WBC Morphology Not Reportable 04/10/22 04:24 Hypersegmented Neuts Not Reportable 04/10/22 04:24 Hyposegmented Neuts Not Reportable 04/10/22 04:24 Hypogranular Neuts Not Reportable 04/10/22 04:24 Smudge Cells Not Reportable 04/10/22 04:24 Toxic Granulation Not Reportable 04/10/22 04:24 Toxic Vacuolation Not Reportable 04/10/22 04:24 Dohle Bodies Not Reportable 04/10/22 04:24 Pelger-Huet Anomaly Not Reportable 04/10/22 04:24 Aleja Rods Not Reportable 04/10/22 04:24 Platelet Estimate Consistent w auto 04/10/22 04:24 Clumped Platelets Not Reportable 04/10/22 04:24 Plt Clumps, EDTA Not Reportable 04/10/22 04:24 Large Platelets Not Reportable 04/10/22 04:24 Giant Platelets Rare 04/10/22 04:24 Platelet Satelliting Not Reportable 04/10/22 04:24 Plt Morphology Comment Not Reportable 04/10/22 04:24 RBC Morphology Normal 04/10/22 04:24 Dimorphic RBCs Not Reportable 04/10/22 04:24 Polychromasia Not Reportable 04/10/22 04:24 Hypochromasia Not Reportable 04/10/22 04:24 Poikilocytosis Not Reportable 04/10/22 04:24 Anisocytosis Not Reportable 04/10/22 04:24 Microcytosis Not Reportable 04/10/22 04:24 Macrocytosis Not Reportable 04/10/22 04:24 Spherocytes Not Reportable 04/10/22 04:24 Pappenheimer Bodies Not Reportable 04/10/22 04:24 Sickle Cells Not Reportable 04/10/22 04:24 Target Cells Not Reportable 04/10/22 04:24 Tear Drop Cells Not Reportable 04/10/22 04:24 Ovalocytes Not Reportable 04/10/22 04:24 Helmet Cells Not Reportable 04/10/22 04:24 [place] Bodies Not Reportable 04/10/22 04:24 [place] Rings Not Reportable 04/10/22 04:24 [place] Cells Not Reportable 04/10/22 04:24 Bite Cells Not Reportable 04/10/22 04:24 Crenated Cell Not Reportable 04/10/22 04:24 Elliptocytes Not Reportable 04/10/22 04:24 Acanthocytes (Spur) Not Reportable 04/10/22 04:24 Rouleaux Not Reportable 04/10/22 04:24 Hemoglobin C Crystals Not Reportable 04/10/22 04:24 Schistocytes Not Reportable 04/10/22 04:24 Malaria parasites Not Reportable 04/10/22 04:24 [place] Bodies Not Reportable 04/10/22 04:24 Hem Pathologist Commnt No 04/10/22 04:24 PT 14.5 Sec. (12.2-14.9) 04/09/22 12:52 INR 1.02 (0.87-1.13) 04/09/22 12:52 D-Dimer 3886.80 ng/mlDDU (0-234) H 04/16/22 Unknown ABG pH 7.318 pH Units (7.350-7.450) L 04/16/22 02:35 ABG pCO2 55.4 mm Hg 04/16/22 02:35 ABG pO2 71.1 mm Hg (80.0-90.0) L 04/16/22 02:35 ABG HCO3 27.7 mmol/L (20.0-26.0) H 04/16/22 02:35 ABG O2 Saturation 94.8 % (95.0-99.0) L 04/16/22 02:35 ABG O2 Content 13.6 (0.0-44) 04/16/22 02:35 ABG Base Excess 0.9 mmol/L (-2.0-3.0) 04/16/22 02:35 ABG Hemoglobin 10.3 gm/dl (12.0-16.0) L 04/16/22 02:35 ABG Carboxyhemoglobin 1.5 % (0.0-5.0) 04/16/22 02:35 ABG Methemoglobin 0.5 % (0.0-1.5) 04/16/22 02:35 VBG pH 7.303 (7.320-7.420) L 04/09/22 12:52 Oxyhemoglobin 92.9 % (95.0-99.0) L 04/16/22 02:35 FiO2 55 % 04/16/22 02:35 Sodium 148 mmol/L (137-145) H 04/16/22 06:00 Potassium 5.0 mmol/L (3.6-5.0) 04/16/22 06:00 Chloride 109.9 mmol/L (98-107) H 04/16/22 06:00 Carbon Dioxide 25 mmol/L (22-30) 04/16/22 06:00 Anion Gap 18 mmol/L 04/16/22 06:00 BUN 84 mg/dL (7-17) H 04/16/22 06:00 Creatinine 1.7 mg/dL (0.6-1.2) H 04/16/22 06:00 Estimated GFR 35 ml/min 04/16/22 06:00 BUN/Creatinine Ratio 49 % 04/16/22 06:00 Glucose 276 mg/dL (65-100) H 04/16/22 06:00 POC Glucose 201 mg/dL (70-105) H 04/16/22 00:17 Lactic Acid 2.10 mmol/L (0.7-2.0) H* 04/15/22 12:00 Calcium 8.4 mg/dL (8.4-10.2) 04/16/22 06:00 Phosphorus 3.60 mg/dL (2.5-4.5) 04/14/22 07:28 Magnesium 2.90 mg/dL (1.7-2.3) H 04/14/22 07:28 Ferritin 446.2 ng/mL (10.0-200.0) H 04/16/22 04:00 Total Bilirubin 0.90 mg/dL (0.1-1.2) 04/16/22 04:00 Direct Bilirubin 0.5 mg/dL (0-0.2) H 04/16/22 04:00 Indirect Bilirubin 0.4 mg/dL 04/16/22 04:00 AST 69 units/L (5-40) H 04/16/22 04:00 ALT 120 units/L (7-56) H 04/16/22 04:00 Alkaline Phosphatase 110 units/L (35-129) 04/16/22 04:00 Ammonia 20.0 umol/L (25-60) L 04/09/22 12:52 Lactate Dehydrogenase 1467 units/L (91-180) H 04/16/22 04:00 Troponin T < 0.010 ng/mL (0.00-0.029) 04/09/22 12:52 C-Reactive Protein 1.90 mg/dL (0.00-1.30) H 04/16/22 04:00 NT-Pro-B Natriuret Pep 101.1 pg/mL (0-900) 04/09/22 13:45 Total Protein 5.9 g/dL (6.3-8.2) L 04/16/22 04:00 Albumin 3.5 g/dL (3.9-5) L 04/16/22 04:00 Albumin/Globulin Ratio 1.5 % 04/16/22 04:00 Procalcitonin 3.13 ng/mL (<0.15) 04/10/22 11:47 TSH 1.560 mlU/mL (0.270-4.200) 04/09/22 12:52 Free T4 1.33 ng/dL (0.76-1.46) 04/09/22 12:52 Urine Color Yellow (Yellow) 04/09/22 13:24 Urine Turbidity Clear (Clear) 04/09/22 13:24 Urine pH 5.0 (5.0-7.0) 04/09/22 13:24 Ur Specific [place] 1.011 (1.003-1.030) 04/09/22 13:24 Urine Protein 30 mg/dl mg/dL (Negative) 04/09/22 13:24 Urine Glucose (UA) Neg mg/dL (Negative) 04/09/22 13:24 Urine Ketones 20 mg/dL (Negative) 04/09/22 13:24 Urine Blood Neg (Negative) 04/09/22 13:24 Urine Nitrite Neg (Negative) 04/09/22 13:24 Urine Bilirubin Neg (Negative) 04/09/22 13:24 Urine Urobilinogen 4.0 mg/dL (<2.0) 04/09/22 13:24 Ur Leukocyte Esterase Neg (Negative) 04/09/22 13:24 Urine WBC (Auto) 2.0 /HPF (0.0-6.0) 04/09/22 13:24 Urine RBC (Auto) < 1.0 /HPF (0.0-6.0) 04/09/22 13:24 U Epithel Cells (Auto) < 1.0 /HPF (0-13.0) 04/09/22 13:24 Urine Mucus Few /HPF 04/09/22 13:24 Urine Eosinophils None seen (None Seen) 04/10/22 14:50 Urine Total Volume 750 ml 04/11/22 11:23 Urine Creatinine 160.5 mg/dL (0.1-20.0) H 04/11/22 11:23 Ur Creatinine 24 Hour 1.2 (0.8-2.8) 04/11/22 11:23 Height (in) Not Reportable 04/11/22 11:23 Weight (lb) Not Reportable 04/11/22 11:23 Creatinine Clearance Not Reportable 04/11/22 11:23 Protein/Creatinin Ratio 0.77 04/10/22 14:50 Urine Sodium 17 mmol/L 04/10/22 14:50 Urine Total Protein 172 mg/dL (5-11.8) H 04/10/22 14:50 Random Vancomycin 11.9 ug/mL (0-40.0) 04/11/22 03:58 Urine Opiates Screen Presumptive negative 04/09/22 22:58 Urine Methadone Screen Presumptive negative 04/09/22 22:58 Ur Barbiturates Screen Presumptive negative 04/09/22 22:58 Ur Phencyclidine Scrn Presumptive negative 04/09/22 22:58 Ur Amphetamines Screen Presumptive negative 04/09/22 22:58 U Benzodiazepines Scrn Presumptive negative 04/09/22 22:58 Urine Cocaine Screen Presumptive negative 04/09/22 22:58 U Marijuana (THC) Screen Presumptive negative 04/09/22 22:58 Drugs of Abuse Note Disclamer 04/09/22 22:58 Coronavirus (PCR) Positive (Negative) A 04/09/22 13:02 Influenza A (RT-PCR) Negative (Negative) 04/09/22 14:15 Influenza B (RT-PCR) Negative (Negative) 04/09/22 14:15 [place]/IV: Voiding Method Indwelling Catheter Active Medications - Current Medications Current Medications: Generic Name Dose Route Start Last Admin Trade Name Freq PRN Reason Stop Dose Admin Acetaminophen 650 mg 04/09/22 18:11 Acetaminophen 325 Mg Tab PO Q4H PRN Pain MILD(1-3)/Fever >100.5/CARCAMO Dexamethasone 8 mg 04/09/22 19:00 04/15/22 18:41 Dexamethasone 4 Mg/Ml Vial IV 04/18/22 19:01 8 mg Q24H JO ANN Administration Dextrose 0 ml 04/10/22 00:40 Dextrose 50% In Water (25gm) 50 Ml Syringe IV Q30MIN PRN Hypoglycemia Protocol Famotidine 10 mg 04/14/22 10:00 04/16/22 09:36 Famotidine 10 Mg Tab FEEDTUBE 10 mg BID JO ANN Administration Fentanyl 50 mcg 04/15/22 09:25 Fentanyl 100 Mcg/2 Ml Inj IV Q10MIN PRN ANALGESIA Heparin Sodium (Porcine) 5,000 unit 04/17/22 10:00 Heparin 5,000 Unit/1 Ml Vial SUB-Q Q12HR JO ANN NORepinephrine/NS 8 MG-250 ML 8 mg in 250 mls @ 3.75 mls/hr 04/09/22 16:00 04/11/22 12:01 Norepinephrine/Ns 8 Mg-250 Ml (Double Conc) IV 0 mcg/min TITRATE JO ANN 0 mls/hr Titration Protocol 2 MCG/MIN Propofol 1,000 mg in 100 mls @ 2.493 mls/hr 04/14/22 21:00 04/15/22 19:06 Diprivan 10 Mg/Ml IV 0 mcg/kg/min TITR JO ANN 0 mls/hr Titration Protocol 5 MCG/KG/MIN Fentanyl Citrate 2,000 mcg in 100 mls @ 4.155 mls/hr 04/15/22 10:00 04/16/22 06:01 Fentanyl Drip Premix IV 2 mcg/kg/hr TITR JO ANN 8.31 mls/hr Titration Protocol 1 MCG/KG/HR Insulin Glargine 20 units 04/16/22 22:00 Insulin Glargine 100 Units/Ml SUB-Q QHS JO ANN Insulin Human Lispro 0 unit 04/12/22 12:00 04/16/22 13:14 Insulin Lispro 100 Unit/Ml SUB-Q 4 unit Q6HR JO ANN Administration Protocol Ondansetron HCl 4 mg 04/09/22 18:11 Ondansetron 4 Mg/2 Ml Inj IV Q8H PRN Nausea And Vomiting Senna/Docusate Sodium 2 tab 04/15/22 14:00 04/16/22 09:35 Sennosides/Docusate Sodium 8.6/50 Mg Tab FEEDTUBE 2 tab BID JO ANN Administration Sodium Chloride 10 ml 04/09/22 22:00 04/16/22 09:38 Sodium Chloride 0.9% 10 Ml Flush Syringe IV 10 ml BID JO ANN Administration Sodium Chloride 10 ml 04/09/22 18:11 Sodium Chloride 0.9% 10 Ml Flush Syringe IV PRN PRN LINE FLUSH Nutrition/Malnutrition Assess - Dietary Evaluation Nutrition/Malnutrition Findings: Nutrition Notes Start: 04/12/22 10:07 Freq: Status: Active Protocol: Document 04/15/22 15:18 [facility] (Rec: 04/15/22 15:23 [facility] [id number]) Nutrition Notes Initial or Follow up Reassessment Current Diagnosis Acute Kidney Injury,Diabetes, Sepsis,Respiratory Failure Other Pertinent Diagnosis AMS, Bilat pneu, COVID-19 (+), Hypotension Current Diet TF - Glucerna 1.2 at 55ml/hr Labs/Tests Na 146 BUN 76 Cr 1.9 BG 214 Pertinent Medications Propofol at 9.972ml/hr ( provides 263 kcal) Height 5 ft 7 in Weight 83.1 kg [place] Body Weight (kg) 61.36 BMI 28.7 Weight change and time frame 98% energy 79% pro Weight Status Overweight Subjective/Other Information Pt remains on vent support; not on pressor support at this time. Renal function being monitored closely. Observed TF infusing at goal rate. Burn Absent Trauma Absent #1 Nutrition Diagnosis Inadequate oral intake As Evidenced by Signs and Symptoms EN support continues Diagnosis Progress(for reassessment Continues documentation) Is patient on ventilator? Yes Is Patient Ambulatory and/or Out of Bed No REE-([facility]-confined to bed) [phone] Calculation Used for Recommendations [facility] Additional Notes Pro needs 1.2-2g/k-166g/ day Fluid needs 1ml/kcal Nutrition Intervention Nutrition Support: Continue Glucerna 1.2 at 55ml/ hr with 100ml water flush q4h. Kcal 1,584 Protein (gm) 79 Carbohydrates (gm) 151 Fat (gm) 79 Fluid (mL) 1,063 Fiber (gm) 21 Goal #1 TF tolerance Goal #2 TF to meet at least 75% energy and pro needs Follow-Up By: 04/22/22 Additional Comments F/U: stable TF, vent status, renal function, propofol
--- NOTE | 2022-04-15 11:04 | Progress Note ---
Assessment and Plan Cultures: SARS CoV2 PCR: Positive Influenza PCR: Negative 04/09/2022 blood culture: no growth. 04/09/2022 resp culture: Usual respiratory catherine A/P: 77-year-old female with diabetes, history of ovarian cancer believed to be in remission was admitted with altered mental status: #Septic shock, probably secondary to severe COVID-19. ABG showed severe acidosis. UA without pyuria. Chest x-ray showed bilateral airspace opacities. Off pressors now. #Bilateral pneumonia: Secondary to COVID-19. Unvaccinated. Actemra administered 04/10/2022. CRP 11.3, procalcitonin 3.3, ferritin 1218, LDH 482. #Acute hypoxic respiratory failure: Requiring mechanical ventilation. #ASHLEY: Renally adjust antibiotics. #Transaminitis #Acute encephalopathy: Neurology following. Recs: -IV/PO Dexamethasone x 10 days -Due to renal failure, not a candidate for Remdesivir -S/p Actemra 04/10/2022 -prophylactic anticoagulation based on d-dimer per hospital protocol -procal elevated, but in the setting of renal failure, so difficult to interpret, complete 5 days of empiric abx, Ceftriaxone and Vancomycin. -trend ferritin, d-dimer, CRP every 2-3 days -Guarded prognosis Laura Sahu MD [facility] O: [phone] F: [phone] Subjective Date of service: 04/15/22 Principal diagnosis: ASHLEY Interval history: Afebrile, white count 19.3. Objective - Exam Narrative Exam: Physical Exam: Constitutional: sedated, intubated, on the vent Head, Ears, Nose: Normocephalic, atraumatic. External ears, nose normal Eyes: Conjunctivae/corneas clear. No icterus. No ptosis. Neck: intubated Oral: intubated Cardiovascular: S1, S2 + Respiratory: AE fair bilaterally and equal GI: Soft, bowel sounds + Musculoskeletal: No pedal edema, no cyanosis. Skin: No rash or abscess Hem/Lymphatic: No palpable cervical or supraclavicular nodes. Psych: no agitation Neurological: sedated, intubated, on the vent, exam limited - Constitutional Vitals: Vital Signs Temp Pulse Resp BP Pulse Ox 98.1 F 72 21 115/64 89 05/23/22 08:00 04/15/22 10:00 04/15/22 10:00 04/15/22 10:00 04/15/22 10:00 Temperature -Last 24 Hours Temperature 98.1 F Temperature 98.3 F Temperature 98.3 F Temperature 97.7 F Temperature 97.9 F Temperature 97.2 F Temperature 97.5 F - Labs CBC & Chem 7: 04/15/22 09:40 04/14/22 07:28 Labs: Abnormal lab results 04/14/22 04/14/22 04/14/22 Range/Units 11:52 15:41 17:18 WBC (4.5-11.0) K/mm3 RBC (3.65-5.03) M/mm3 Hgb (10.1-14.3) gm/dl Hct (30.3-42.9) % RDW (13.2-15.2) % ABG pH 7.506 H (7.350-7.450) pH Units ABG pO2 51.0 L (80.0-90.0) mm Hg ABG O2 Saturation 87.3 L (95.0-99.0) % ABG Hemoglobin 10.6 L (12.0-16.0) gm/dl Oxyhemoglobin 85.4 L (95.0-99.0) % POC Glucose 173 H 187 H (70-105) mg/dL 04/15/22 04/15/22 04/15/22 Range/Units 00:03 03:43 09:40 WBC 19.3 H (4.5-11.0) K/mm3 RBC 3.18 L (3.65-5.03) M/mm3 Hgb 9.3 L (10.1-14.3) gm/dl Hct 27.7 L (30.3-42.9) % RDW 15.8 H (13.2-15.2) % ABG pH 7.477 H (7.350-7.450) pH Units ABG pO2 59.1 L (80.0-90.0) mm Hg ABG O2 Saturation 90.5 L (95.0-99.0) % ABG Hemoglobin 9.5 L (12.0-16.0) gm/dl Oxyhemoglobin 88.7 L (95.0-99.0) % POC Glucose 246 H (70-105) mg/dL
[2022-04-15 11:27] LABS: Calcium 7.7 mg/dL (8.4-10.2)
--- NOTE | 2022-04-15 12:05 | Progress Note ---
Assessment and Plan Assessment: Acute Renal Failure likely secondary to Ischemic ATN due to Sepsis and Hypotenison COVID positive Sepsis Hypotension Diabetes Mellitus/DKA Acute Respiratory Failure Hypokalemia Metabolic Acidosis Hypophosphatemia Plan: Renal labs reviewed. Serum creatinine 1.9 today, yesterday's was 2.3. BUN rising at 76 today, yesterday's was 57. UOP was 1200 ml. Baseline serum creatinine unknown. Creatinine clearance on 04/11/22 was 24 ml/min Renal ultrasound- no obstruction Hypernatremia-S/P D5W@ 50 ml/hr. Sodium 146 today. Start free water 150 ml every 4 hours via tube feeds COVID positive-as per ID Renally dose medications Obtain daily weights Monitor I/O's daily Will continue to monitor renal function closely Plan of care reviewed by Dr. Lang Subjective Date of service: 04/15/22 Principal diagnosis: ASHLEY Interval history: Patient COVID positive with active infection. Labs and chart reviewed. Objective - Vital Signs Vital signs: Vital Signs - 12hr 04/15/22 04/15/22 04/15/22 01:00 02:00 03:00 Temperature Pulse Rate 84 82 82 Respiratory 27 H 28 H 29 H Rate Blood Pressure 119/68 121/69 115/67 O2 Sat by Pulse 91 92 91 Oximetry 04/15/22 04/15/22 04/15/22 03:40 04:00 05:00 Temperature 98.3 F Pulse Rate 81 81 79 Respiratory 29 H 25 H Rate Blood Pressure 119/66 115/69 117/66 O2 Sat by Pulse 91 91 90 Oximetry 04/15/22 04/15/22 04/15/22 06:00 07:00 08:00 Temperature 98.1 F Pulse Rate 77 77 75 Respiratory 28 H 28 H 25 H Rate Blood Pressure 117/66 114/61 116/61 O2 Sat by Pulse 92 91 92 Oximetry 04/15/22 04/15/22 04/15/22 09:00 10:00 11:00 Temperature Pulse Rate 75 72 70 Respiratory 29 H 22 Rate Blood Pressure 112/58 115/64 114/62 O2 Sat by Pulse 91 89 95 Oximetry - Lab 04/15/22 09:40 04/15/22 10:00 Most recent lab results ABG pH 7.477 pH Units (7.350-7.450) H 04/15/22 03:43 ABG pCO2 35.1 mm Hg 04/15/22 03:43 ABG pO2 59.1 mm Hg (80.0-90.0) L 04/15/22 03:43 ABG HCO3 25.4 mmol/L (20.0-26.0) 04/15/22 03:43 ABG O2 Saturation 90.5 % (95.0-99.0) L 04/15/22 03:43 Calcium 7.7 mg/dL (8.4-10.2) L 04/15/22 10:00 Phosphorus 3.60 mg/dL (2.5-4.5) 04/14/22 07:28 Magnesium 2.90 mg/dL (1.7-2.3) H 04/14/22 07:28 Urine Creatinine 160.5 mg/dL (0.1-20.0) H 04/11/22 11:23 Urine Sodium 17 mmol/L 04/10/22 14:50 Urine Total Protein 172 mg/dL (5-11.8) H 04/10/22 14:50 Medications & Allergies - Medications Allergies/Adverse Reactions: Allergies No Known Allergies Allergy (Verified 04/09/22 13:44) Active Medications: Generic Name Dose Route Start Last Admin Trade Name Freq PRN Reason Stop Dose Admin Acetaminophen 650 mg 04/09/22 18:11 Acetaminophen 325 Mg Tab PO Q4H PRN Pain MILD(1-3)/Fever >100.5/[place] Dexamethasone 8 mg 04/09/22 19:00 04/14/22 18:10 Dexamethasone 4 Mg/Ml Vial IV 04/18/22 19:01 8 mg Q24H JO ANN Administration Dextrose 0 ml 04/10/22 00:40 Dextrose 50% In Water (25gm) 50 Ml Syringe IV Q30MIN PRN Hypoglycemia Protocol Enoxaparin Sodium 30 mg 04/10/22 10:00 04/15/22 09:25 Enoxaparin 30 Mg/0.3 Ml Inj SUB-Q 30 mg QDAY JO ANN Administration Famotidine 10 mg 04/14/22 10:00 04/15/22 09:25 Famotidine 10 Mg Tab FEEDTUBE 10 mg BID JO ANN Administration Fentanyl 50 mcg 04/15/22 09:25 Fentanyl 100 Mcg/2 Ml Inj IV Q10MIN PRN ANALGESIA NORepinephrine/NS 8 MG-250 ML 8 mg in 250 mls @ 3.75 mls/hr 04/09/22 16:00 04/11/22 12:01 Norepinephrine/Ns 8 Mg-250 Ml (Double Conc) IV 0 mcg/min TITRATE JO ANN 0 mls/hr Titration Protocol 2 MCG/MIN Vasopressin 20 unit/ Sodium 101 mls @ 9.09 mls/hr 04/09/22 18:00 04/12/22 08:42 Chloride IV 0 units/min TITR JO ANN 0 mls/hr Titration Protocol 0.03 UNITS/MIN Ceftriaxone Sodium 2 gm in 100 mls @ 200 mls/hr 04/11/22 12:00 04/14/22 11:59 Rocephin/Ns 2 Gm/100 Ml IV 04/15/22 12:29 200 mls/hr Q24H JO ANN Administration Propofol 1,000 mg in 100 mls @ 2.493 mls/hr 04/14/22 21:00 04/15/22 10:37 Diprivan 10 Mg/Ml IV 20 mcg/kg/min TITR JO ANN 9.972 mls/hr Titration Protocol 5 MCG/KG/MIN Fentanyl Citrate 2,000 mcg in 100 mls @ 4.155 mls/hr 04/15/22 10:00 04/15/22 09:45 Fentanyl Drip Premix IV 2 mcg/kg/hr TITR JO ANN 8.31 mls/hr Titration Protocol 1 MCG/KG/HR Insulin Glargine 15 units 04/15/22 22:00 Insulin Glargine 100 Units/Ml SUB-Q QHS [facility] Insulin Human Lispro 0 unit 04/12/22 12:00 04/15/22 05:54 Insulin Lispro 100 Unit/Ml SUB-Q 3 unit Q6HR [facility] Administration Protocol Ondansetron HCl 4 mg 04/09/22 18:11 Ondansetron 4 Mg/2 Ml Inj IV Q8H PRN Nausea And Vomiting Quetiapine Fumarate 50 mg 04/14/22 10:00 04/15/22 09:25 Quetiapine 25 Mg Tab FEEDTUBE 50 mg BID JO ANN Administration Senna 8.8 mg 04/12/22 22:00 04/14/22 21:09 Sennosides Oral Liqd 8.8 Mg/5 Ml Oral Liqd PO 8.8 mg QHS [facility] Administration Sodium Chloride 10 ml 04/09/22 22:00 04/15/22 09:26 Sodium Chloride 0.9% 10 Ml Flush Syringe IV 10 ml BID JO ANN Administration Sodium Chloride 10 ml 04/09/22 18:11 Sodium Chloride 0.9% 10 Ml Flush Syringe IV PRN PRN LINE FLUSH
[2022-04-15] MEDS: cefTRIAXone/NS 2 GM/100 ML 2 GM/100 ML BAG IV SCH (12:38)
--- NOTE | 2022-04-15 12:57 | Progress Note ---
Assessment and Plan 77 y/o female with multisystem organ failure, COVID positive 04/15/22: Hold on any further fluids or lasix. If hypotensive, will add pres sors. Continue PEEP at 10. Same acceptable parameters as below for sats and PaO2 as pH. Continue pain control and sedation. Added bowel regimen. Prognosis is still guarded to poor. 04/14/22: Hold on any further lasix. Please do not give any fluids, will see if she re equilbrates on her own. Increase PEEP to 8. Will get head CT today. Patient is now in full blown ARDS from COVID. Increased PEEP to 8 and dropped TV to 400. pH of >7.15 and PaO2 >55 are acceptable. Repeat gas at 1600 today. 04/13/22: Renal function continues to improve and urine output improving as well. Given CXR findings will give lasix 40mg IV x1 today. Repeat CXR tomorrow. Off insulin drip and tolerating feeds. Hold on CT head today but if no improvement or worsening clinical state tomorrow, will repeat. Spoke with family on phone yesterday. Guarded prognosis. 04/12/22: Improved mental state. Feed patient today and stop IVF's and attempt to get off of insulin drip. Dropped Peep to 6. Wean FiO2 for sats >88%. PaO2 of 55 and greater are acceptable. Normal EF on echo. EEG showed diffuse slowing but mental state has improved. Will up date family. 04/11/22: Continue supportive measures. Getting EEG right now. Continue to wean Pressors for MAPs >65. if able to get to just one pressor, will place NG vs OG and attempt trickle feeds. Follow up echo. Down to 45%, good PaO2. Continue to wean, however mental state would preclude extubation at this time. Await renal eval but would like to stop bicarb now that acidosis is better, however needs free water but this could be given do OG/NG if end up placing, otherwise would just do D5W. If able to place tube and feed, then can attempt to get off insulin drip. Plan to update family after echo and EEG read. 1. Neuro-concern for seizures. EEG pending. Hold on long acting anti-epileptic therapy. Neurology consulted and has seen. patient is not on any continuous sedation at present 2. CV-Cardiovascular collapse on pressors (3). Could benefit from echo. Attempt volume resuscitation but no improvement. Continue pressors and wean as tolerated for MAPs >65 3. Pulm-intubated, not on sedation. COVID positive but oxygenation is stable. Per documentation, mainly intubated for airway protection given altered level of mental status. Not a candidate for Remdesivir and may not be a candidate for actemra. Continue steroids and low Tidal volume strategy for lung protection with permissive hypercapnea and lower PaO2 (55-60) if needed. 4. Renal- worsening renal function and decrease in urine output. Renal following. May need HD but would likely not tolerate and CRRT or CVVH is not available here. Worsening lactic acidosis as well. 5. GI-hold on feeds given pressor requirement, prophylactic therapy 6. Endo-continue insulin drip for now Overall prognosis is guarded to poor. Will discuss with immediate family today. CCT 31 minutes. Subjective Date of service: 04/15/22 Principal diagnosis: ASHLEY Interval history: Still hypoxic. Renal function is better. Got placed on diprovan and precedex last night. Now on Diprovan and Fent. Objective Vital Signs - 12hr 04/15/22 04/15/22 04/15/22 01:00 02:00 03:00 Temperature Pulse Rate 84 82 82 Respiratory 27 H 28 H 29 H Rate Blood Pressure 119/68 121/69 115/67 O2 Sat by Pulse 91 92 91 Oximetry 04/15/22 04/15/22 04/15/22 03:40 04:00 05:00 Temperature 98.3 F Pulse Rate 81 81 79 Respiratory 29 H 25 H Rate Blood Pressure 119/66 115/69 117/66 O2 Sat by Pulse 91 91 90 Oximetry 04/15/22 04/15/22 04/15/22 06:00 07:00 08:00 Temperature 98.1 F Pulse Rate 77 77 75 Respiratory 28 H 28 H 25 H Rate Blood Pressure 117/66 114/61 116/61 O2 Sat by Pulse 92 91 92 Oximetry 04/15/22 04/15/22 04/15/22 09:00 10:00 11:00 Temperature Pulse Rate 75 72 70 Respiratory 29 H 21 22 Rate Blood Pressure 112/58 115/64 114/62 O2 Sat by Pulse 91 89 95 Oximetry CBC and BMP: 04/15/22 09:40 04/15/22 10:00 ABG, PT/INR, D-dimer: ABG ABG pH 7.477 pH Units (7.350-7.450) H 04/15/22 03:43 ABG pCO2 35.1 mm Hg 04/15/22 03:43 ABG pO2 59.1 mm Hg (80.0-90.0) L 04/15/22 03:43 ABG O2 Saturation 90.5 % (95.0-99.0) L 04/15/22 03:43 PT/INR, D-dimer PT 14.5 Sec. (12.2-14.9) 04/09/22 12:52 INR 1.02 (0.87-1.13) 04/09/22 12:52 D-Dimer 5586.76 ng/mlDDU (0-234) H 04/14/22 07:28 Abnormal lab findings: Abnormal Labs 04/09/22 04/09/22 04/09/22 11:59 12:52 12:52 WBC RBC Hgb Hct RDW 15.3 H Lymph % (Auto) 8.4 L Lymph # (Auto) 0.7 L Seg Neutrophils % 84.6 H Seg Neuts % (Manual) Lymphocytes % (Manual) Seg Neutrophils # Seg Neutrophils # Man Lymphocytes # (Manual) D-Dimer ABG pH ABG pO2 ABG HCO3 ABG O2 Saturation ABG Base Excess ABG Hemoglobin VBG pH Oxyhemoglobin Sodium Potassium Chloride 112.7 H Carbon Dioxide 18 L BUN Creatinine 2.0 H Glucose 204 H POC Glucose 203 H Lactic Acid Calcium Phosphorus Magnesium Ferritin Total Bilirubin 1.30 H AST 47 H ALT Ammonia Lactate Dehydrogenase C-Reactive Protein Total Protein Albumin Urine Creatinine Urine Total Protein Coronavirus (PCR) 04/09/22 04/09/22 04/09/22 12:52 12:52 13:02 WBC RBC Hgb Hct RDW Lymph % (Auto) Lymph # (Auto) Seg Neutrophils % Seg Neuts % (Manual) Lymphocytes % (Manual) Seg Neutrophils # Seg Neutrophils # Man Lymphocytes # (Manual) D-Dimer ABG pH ABG pO2 ABG HCO3 ABG O2 Saturation ABG Base Excess ABG Hemoglobin VBG pH 7.303 L Oxyhemoglobin Sodium Potassium Chloride Carbon Dioxide BUN Creatinine Glucose POC Glucose Lactic Acid Calcium Phosphorus Magnesium Ferritin Total Bilirubin AST ALT Ammonia 20.0 L Lactate Dehydrogenase C-Reactive Protein Total Protein Albumin Urine Creatinine Urine Total Protein Coronavirus (PCR) Positive A 04/09/22 04/09/22 04/09/22 15:49 22:15 22:58 WBC RBC Hgb Hct RDW Lymph % (Auto) Lymph # (Auto) Seg Neutrophils % Seg Neuts % (Manual) Lymphocytes % (Manual) Seg Neutrophils # Seg Neutrophils # Man Lymphocytes # (Manual) D-Dimer ABG pH 7.097 L* ABG pO2 188.8 H ABG HCO3 7.4 L ABG O2 Saturation 99.1 H ABG Base Excess -20.7 L ABG Hemoglobin VBG pH Oxyhemoglobin Sodium Potassium Chloride 108.8 H Carbon Dioxide 10 L D BUN 20 H Creatinine 2.6 H Glucose 465 H POC Glucose Lactic Acid 2.70 H* Calcium 7.4 L Phosphorus Magnesium Ferritin Total Bilirubin AST ALT Ammonia Lactate Dehydrogenase C-Reactive Protein Total Protein Albumin Urine Creatinine Urine Total Protein Coronavirus (PCR) 04/09/22 04/09/22 04/10/22 23:19 Unknown 00:03 WBC RBC Hgb Hct RDW Lymph % (Auto) Lymph # (Auto) Seg Neutrophils % Seg Neuts % (Manual) Lymphocytes % (Manual) Seg Neutrophils # Seg Neutrophils # Man Lymphocytes # (Manual) D-Dimer ABG pH ABG pO2 ABG HCO3 ABG O2 Saturation ABG Base Excess ABG Hemoglobin VBG pH Oxyhemoglobin Sodium Potassium Chloride Carbon Dioxide BUN Creatinine Glucose POC Glucose 356 H Lactic Acid 7.50 H* 6.10 H* Calcium Phosphorus Magnesium Ferritin Total Bilirubin AST ALT Ammonia Lactate Dehydrogenase C-Reactive Protein Total Protein Albumin Urine Creatinine Urine Total Protein Coronavirus (PCR) 04/10/22 04/10/22 04/10/22 02:16 03:03 04:00 WBC RBC Hgb Hct RDW Lymph % (Auto) Lymph # (Auto) Seg Neutrophils % Seg Neuts % (Manual) Lymphocytes % (Manual) Seg Neutrophils # Seg Neutrophils # Man Lymphocytes # (Manual) D-Dimer ABG pH ABG pO2 ABG HCO3 ABG O2 Saturation ABG Base Excess ABG Hemoglobin VBG pH Oxyhemoglobin Sodium Potassium Chloride Carbon Dioxide BUN Creatinine Glucose POC Glucose 317 H 325 H 308 H Lactic Acid Calcium Phosphorus Magnesium Ferritin Total Bilirubin AST ALT Ammonia Lactate Dehydrogenase C-Reactive Protein Total Protein Albumin Urine Creatinine Urine Total Protein Coronavirus (PCR) 04/10/22 04/10/22 04/10/22 04:24 04:24 04:24 WBC 16.4 H RBC Hgb Hct RDW 16.2 H Lymph % (Auto) Lymph # (Auto) Seg Neutrophils % Seg Neuts % (Manual) 94.0 H Lymphocytes % (Manual) 3.0 L Seg Neutrophils # Seg Neutrophils # Man 15.4 H Lymphocytes # (Manual) 0.5 L D-Dimer ABG pH ABG pO2 ABG HCO3 ABG O2 Saturation ABG Base Excess ABG Hemoglobin VBG pH Oxyhemoglobin Sodium Potassium 2.9 L* D Chloride 116.1 H Carbon Dioxide 11 L BUN 19 H Creatinine 2.5 H Glucose 376 H POC Glucose Lactic Acid Calcium 6.5 L Phosphorus 1.40 L Magnesium 1.60 L Ferritin Total Bilirubin AST 107 H ALT 64 H Ammonia Lactate Dehydrogenase C-Reactive Protein Total Protein 5.5 L Albumin 2.8 L Urine Creatinine Urine Total Protein Coronavirus (PCR) 04/10/22 04/10/22 04/10/22 04:25 05:17 06:00 WBC RBC Hgb Hct RDW Lymph % (Auto) Lymph # (Auto) Seg Neutrophils % Seg Neuts % (Manual) Lymphocytes % (Manual) Seg Neutrophils # Seg Neutrophils # Man Lymphocytes # (Manual) D-Dimer ABG pH 7.095 L* ABG pO2 112.3 H ABG HCO3 8.7 L ABG O2 Saturation ABG Base Excess -19.7 L ABG Hemoglobin VBG pH Oxyhemoglobin Sodium Potassium Chloride Carbon Dioxide BUN Creatinine Glucose POC Glucose 343 H 278 H Lactic Acid Calcium Phosphorus Magnesium Ferritin Total Bilirubin AST ALT Ammonia Lactate Dehydrogenase C-Reactive Protein Total Protein Albumin Urine Creatinine Urine Total Protein Coronavirus (PCR) 04/10/22 04/10/22 04/10/22 06:53 07:54 08:58 WBC RBC Hgb Hct RDW Lymph % (Auto) Lymph # (Auto) Seg Neutrophils % Seg Neuts % (Manual) Lymphocytes % (Manual) Seg Neutrophils # Seg Neutrophils # Man Lymphocytes # (Manual) D-Dimer ABG pH ABG pO2 ABG HCO3 ABG O2 Saturation ABG Base Excess ABG Hemoglobin VBG pH Oxyhemoglobin Sodium Potassium Chloride Carbon Dioxide BUN Creatinine Glucose POC Glucose 262 H 245 H 215 H Lactic Acid Calcium Phosphorus Magnesium Ferritin Total Bilirubin AST ALT Ammonia Lactate Dehydrogenase C-Reactive Protein Total Protein Albumin Urine Creatinine Urine Total Protein Coronavirus (PCR) 04/10/22 04/10/2204/10/22 10:12 10:51 11:47 WBC RBC Hgb Hct RDW Lymph % (Auto) Lymph # (Auto) Seg Neutrophils % Seg Neuts % (Manual) Lymphocytes % (Manual) Seg Neutrophils # Seg Neutrophils # Man Lymphocytes # (Manual) D-Dimer ABG pH ABG pO2 ABG HCO3 ABG O2 Saturation ABG Base Excess ABG Hemoglobin VBG pH Oxyhemoglobin Sodium 148 H Potassium 3.4 L Chloride 116.7 H Carbon Dioxide 15 L BUN 22 H Creatinine 2.7 H Glucose 190 H POC Glucose 206 H 176 H Lactic Acid Calcium 6.9 L Phosphorus Magnesium Ferritin Total Bilirubin AST ALT Ammonia Lactate Dehydrogenase C-Reactive Protein Total Protein Albumin Urine Creatinine Urine Total Protein Coronavirus (PCR) 04/10/22 04/10/22 04/10/22 11:47 11:47 12:02 WBC RBC Hgb Hct RDW Lymph % (Auto) Lymph # (Auto) Seg Neutrophils % Seg Neuts % (Manual) Lymphocytes % (Manual) Seg Neutrophils # Seg Neutrophils # Man Lymphocytes # (Manual) D-Dimer ABG pH ABG pO2 ABG HCO3 ABG O2 Saturation ABG Base Excess ABG Hemoglobin VBG pH Oxyhemoglobin Sodium Potassium Chloride Carbon Dioxide BUN Creatinine Glucose POC Glucose 178 H Lactic Acid Calcium Phosphorus Magnesium Ferritin 1218.0 H Total Bilirubin AST ALT Ammonia Lactate Dehydrogenase 482 H C-Reactive Protein 11.30 H Total Protein Albumin Urine Creatinine Urine Total Protein Coronavirus (PCR) 04/10/22 04/10/22 04/10/22 13:13 13:58 14:50 WBC RBC Hgb Hct RDW Lymph % (Auto) Lymph # (Auto) Seg Neutrophils % Seg Neuts % (Manual) Lymphocytes % (Manual) Seg Neutrophils # Seg Neutrophils # Man Lymphocytes # (Manual) D-Dimer ABG pH ABG pO2 ABG HCO3 ABG O2 Saturation ABG Base Excess ABG Hemoglobin VBG pH Oxyhemoglobin Sodium Potassium Chloride Carbon Dioxide BUN Creatinine Glucose POC Glucose 160 H 150 H Lactic Acid Calcium Phosphorus Magnesium Ferritin Total Bilirubin AST ALT Ammonia Lactate Dehydrogenase C-Reactive Protein Total Protein Albumin Urine Creatinine 224.2 H Urine Total Protein 172 H Coronavirus (PCR) 04/10/22 04/10/22 04/10/22 15:24 16:38 16:56 WBC RBC Hgb Hct RDW Lymph % (Auto) Lymph # (Auto) Seg Neutrophils % Seg Neuts % (Manual) Lymphocytes % (Manual) Seg Neutrophils # Seg Neutrophils # Man Lymphocytes # (Manual) D-Dimer ABG pH ABG pO2 ABG HCO3 ABG O2 Saturation ABG Base Excess ABG Hemoglobin VBG pH Oxyhemoglobin Sodium Potassium Chloride Carbon Dioxide BUN Creatinine Glucose POC Glucose 140 H 154 H 149 H Lactic Acid Calcium Phosphorus Magnesium Ferritin Total Bilirubin AST ALT Ammonia Lactate Dehydrogenase C-Reactive Protein Total Protein Albumin Urine Creatinine Urine Total Protein Coronavirus (PCR) 04/10/22 04/10/22 04/10/22 18:21 19:21 20:02 WBC RBC Hgb Hct RDW Lymph % (Auto) Lymph # (Auto) Seg Neutrophils % Seg Neuts % (Manual) Lymphocytes % (Manual) Seg Neutrophils # Seg Neutrophils # Man Lymphocytes # (Manual) D-Dimer ABG pH ABG pO2 ABG HCO3 ABG O2 Saturation ABG Base Excess ABG Hemoglobin VBG pH Oxyhemoglobin Sodium Potassium Chloride Carbon Dioxide BUN Creatinine Glucose POC Glucose 141 H 126 H 139 H Lactic Acid Calcium Phosphorus Magnesium Ferritin Total Bilirubin AST ALT Ammonia Lactate Dehydrogenase C-Reactive Protein Total Protein Albumin Urine Creatinine Urine Total Protein Coronavirus (PCR) 04/10/22 04/10/22 04/10/22 21:04 21:58 22:20 WBC RBC Hgb Hct RDW Lymph % (Auto) Lymph # (Auto) Seg Neutrophils % Seg Neuts % (Manual) Lymphocytes % (Manual) Seg Neutrophils # Seg Neutrophils # Man Lymphocytes # (Manual) D-Dimer ABG pH ABG pO2 ABG HCO3 ABG O2 Saturation ABG Base Excess ABG Hemoglobin VBG pH Oxyhemoglobin Sodium Potassium Chloride 114.5 H Carbon Dioxide 17 L BUN 24 H Creatinine 2.5 H Glucose 165 H POC Glucose 144 H 161 H Lactic Acid Calcium 6.5 L Phosphorus Magnesium Ferritin Total Bilirubin AST ALT Ammonia Lactate Dehydrogenase C-Reactive Protein Total Protein Albumin Urine Creatinine Urine Total Protein Coronavirus (PCR) 04/10/22 04/11/22 04/11/22 23:02 00:08 01:05 WBC RBC Hgb Hct RDW Lymph % (Auto) Lymph # (Auto) Seg Neutrophils % Seg Neuts % (Manual) Lymphocytes % (Manual) Seg Neutrophils # Seg Neutrophils # Man Lymphocytes # (Manual) D-Dimer ABG pH ABG pO2 ABG HCO3 ABG O2 Saturation ABG Base Excess ABG Hemoglobin VBG pH Oxyhemoglobin Sodium Potassium Chloride Carbon Dioxide BUN Creatinine Glucose POC Glucose 160 H 148 H 156 H Lactic Acid Calcium Phosphorus Magnesium Ferritin Total Bilirubin AST ALT Ammonia Lactate Dehydrogenase C-Reactive Protein Total Protein Albumin Urine Creatinine Urine Total Protein Coronavirus (PCR) 04/11/22 04/11/22 04/11/22 01:30 02:05 03:04 WBC RBC Hgb Hct RDW Lymph % (Auto) Lymph # (Auto) Seg Neutrophils % Seg Neuts % (Manual) Lymphocytes % (Manual) Seg Neutrophils # Seg Neutrophils # Man Lymphocytes # (Manual) D-Dimer ABG pH ABG pO2 75.1 L ABG HCO3 17.2 L ABG O2 Saturation ABG Base Excess -5.8 L ABG Hemoglobin 11.5 L VBG pH Oxyhemoglobin Sodium Potassium Chloride Carbon Dioxide BUN Creatinine Glucose POC Glucose 150 H 168 H Lactic Acid Calcium Phosphorus Magnesium Ferritin Total Bilirubin AST ALT Ammonia Lactate Dehydrogenase C-Reactive Protein Total Protein Albumin Urine Creatinine Urine Total Protein Coronavirus (PCR) 04/11/22 04/11/22 04/11/22 03:58 03:58 04:05 WBC 12.2 H RBC Hgb Hct RDW 15.7 H Lymph % (Auto) Lymph # (Auto) Seg Neutrophils % Seg Neuts % (Manual) Lymphocytes % (Manual) Seg Neutrophils # Seg Neutrophils # Man Lymphocytes # (Manual) D-Dimer ABG pH ABG pO2 ABG HCO3 ABG O2 Saturation ABG Base Excess ABG Hemoglobin VBG pH Oxyhemoglobin Sodium 147 H Potassium Chloride 114.2 H Carbon Dioxide 19 L BUN 26 H Creatinine 2.5 H Glucose 154 H POC Glucose 151 H Lactic Acid Calcium 6.8 L Phosphorus Magnesium Ferritin Total Bilirubin AST 106 H ALT 60 H Ammonia Lactate Dehydrogenase C-Reactive Protein Total Protein 5.6 L Albumin 2.7 L Urine Creatinine Urine Total Protein Coronavirus (PCR) 04/11/22 04/11/22 04/11/22 05:14 06:19 08:23 WBC RBC Hgb Hct RDW Lymph % (Auto) Lymph # (Auto) Seg Neutrophils % Seg Neuts % (Manual) Lymphocytes % (Manual) Seg Neutrophils # Seg Neutrophils # Man Lymphocytes # (Manual) D-Dimer ABG pH ABG pO2 ABG HCO3 ABG O2 Saturation ABG Base Excess ABG Hemoglobin VBG pH Oxyhemoglobin Sodium Potassium Chloride Carbon Dioxide BUN Creatinine Glucose POC Glucose 134 H 144 H 143 H Lactic Acid Calcium Phosphorus Magnesium Ferritin Total Bilirubin AST ALT Ammonia Lactate Dehydrogenase C-Reactive Protein Total Protein Albumin Urine Creatinine Urine Total Protein Coronavirus (PCR) 04/11/22 04/11/22 04/11/22 09:28 10:06 11:23 WBC RBC Hgb Hct RDW Lymph % (Auto) Lymph # (Auto) Seg Neutrophils % Seg Neuts % (Manual) Lymphocytes % (Manual) Seg Neutrophils # Seg Neutrophils # Man Lymphocytes # (Manual) D-Dimer ABG pH ABG pO2 ABG HCO3 ABG O2 Saturation ABG Base Excess ABG Hemoglobin VBG pH Oxyhemoglobin Sodium Potassium Chloride Carbon Dioxide BUN Creatinine Glucose POC Glucose 138 H Lactic Acid Calcium Phosphorus Magnesium Ferritin Total Bilirubin AST ALT Ammonia Lactate Dehydrogenase C-Reactive Protein Total Protein Albumin Urine Creatinine 161.8 H 160.5 H Urine Total Protein Coronavirus (PCR) 04/11/22 04/11/22 04/12/22 15:59 23:58 00:01 WBC 16.2 H RBC Hgb Hct RDW 15.8 H Lymph % (Auto) 5.7 L Lymph # (Auto) 0.9 L Seg Neutrophils % 89.6 H Seg Neuts % (Manual) Lymphocytes % (Manual) Seg Neutrophils # 14.6 H Seg Neutrophils # Man Lymphocytes # (Manual) D-Dimer ABG pH ABG pO2 ABG HCO3 ABG O2 Saturation ABG Base Excess ABG Hemoglobin VBG pH Oxyhemoglobin Sodium Potassium Chloride Carbon Dioxide BUN Creatinine Glucose POC Glucose 166 H 150 H Lactic Acid Calcium Phosphorus Magnesium Ferritin Total Bilirubin AST ALT Ammonia Lactate Dehydrogenase C-Reactive Protein Total Protein Albumin Urine Creatinine Urine Total Protein Coronavirus (PCR) 04/12/22 04/12/22 04/12/22 03:20 04:00 04:00 WBC RBC Hgb Hct RDW Lymph % (Auto) Lymph # (Auto) Seg Neutrophils % Seg Neuts % (Manual) Lymphocytes % (Manual) Seg Neutrophils # Seg Neutrophils # Man Lymphocytes # (Manual) D-Dimer 1874.86 H ABG pH 7.513 H ABG pO2 61.7 L ABG HCO3 ABG O2 Saturation 94.2 L ABG Base Excess ABG Hemoglobin 11.5 L VBG pH Oxyhemoglobin 92.6 L Sodium Potassium Chloride Carbon Dioxide BUN Creatinine Glucose POC Glucose Lactic Acid Calcium Phosphorus Magnesium Ferritin 890.0 H Total Bilirubin AST ALT Ammonia Lactate Dehydrogenase C-Reactive Protein Total Protein Albumin Urine Creatinine Urine Total Protein Coronavirus (PCR) 04/12/22 04/12/22 04/12/22 04:00 04:20 04:59 WBC RBC Hgb Hct RDW Lymph % (Auto) Lymph # (Auto) Seg Neutrophils % Seg Neuts % (Manual) Lymphocytes % (Manual) Seg Neutrophils # Seg Neutrophils # Man Lymphocytes # (Manual) D-Dimer ABG pH ABG pO2 ABG HCO3 ABG O2 Saturation ABG Base Excess ABG Hemoglobin VBG pH Oxyhemoglobin Sodium 146 H Potassium Chloride 108.0 H Carbon Dioxide BUN 38 H Creatinine 2.3 H Glucose 173 H POC Glucose 146 H Lactic Acid Calcium 6.7 L Phosphorus Magnesium Ferritin Total Bilirubin AST ALT Ammonia Lactate Dehydrogenase 763 H C-Reactive Protein 14.10 H Total Protein Albumin Urine Creatinine Urine Total Protein Coronavirus (PCR) 04/12/22 04/12/22 04/12/22 06:05 10:15 11:52 WBC RBC Hgb Hct RDW Lymph % (Auto) Lymph # (Auto) Seg Neutrophils % Seg Neuts % (Manual) Lymphocytes % (Manual) Seg Neutrophils # Seg Neutrophils # Man Lymphocytes # (Manual) D-Dimer ABG pH ABG pO2 ABG HCO3 ABG O2 Saturation ABG Base Excess ABG Hemoglobin VBG pH Oxyhemoglobin Sodium Potassium Chloride Carbon Dioxide BUN Creatinine Glucose POC Glucose 190 H 122 H 125 H Lactic Acid Calcium Phosphorus Magnesium Ferritin Total Bilirubin AST ALT Ammonia Lactate Dehydrogenase C-Reactive Protein Total Protein Albumin Urine Creatinine Urine Total Protein Coronavirus (PCR) 04/12/22 04/13/22 04/13/22 13:18 00:14 03:41 WBC RBC Hgb Hct RDW Lymph % (Auto) Lymph # (Auto) Seg Neutrophils % Seg Neuts % (Manual) Lymphocytes % (Manual) Seg Neutrophils # Seg Neutrophils # Man Lymphocytes # (Manual) D-Dimer ABG pH 7.487 H ABG pO2 62.1 L ABG HCO3 ABG O2 Saturation 93.2 L ABG Base Excess ABG Hemoglobin 11.9 L VBG pH Oxyhemoglobin 91.5 L Sodium Potassium Chloride Carbon Dioxide BUN 38 H Creatinine 2.1 H Glucose 144 H POC Glucose 208 H Lactic Acid Calcium 7.1 L Phosphorus Magnesium Ferritin Total Bilirubin AST ALT Ammonia Lactate Dehydrogenase C-Reactive Protein Total Protein Albumin Urine Creatinine Urine Total Protein Coronavirus (PCR) 04/13/22 04/13/22 04/14/22 04:31 04:31 03:54 WBC 13.9 H RBC Hgb Hct RDW 15.7 H Lymph % (Auto) Lymph # (Auto) Seg Neutrophils % Seg Neuts % (Manual) Lymphocytes % (Manual) Seg Neutrophils # Seg Neutrophils # Man Lymphocytes # (Manual) D-Dimer ABG pH 7.487 H ABG pO2 57.8 L ABG HCO3 ABG O2 Saturation 93.9 L ABG Base Excess ABG Hemoglobin 10.0 L VBG pH Oxyhemoglobin 92.3 L Sodium Potassium Chloride Carbon Dioxide BUN 42 H Creatinine 1.9 H Glucose 204 H POC Glucose Lactic Acid Calcium 7.4 L Phosphorus Magnesium Ferritin Total Bilirubin AST ALT Ammonia Lactate Dehydrogenase C-Reactive Protein Total Protein Albumin Urine Creatinine Urine Total Protein Coronavirus (PCR) 04/14/22 04/14/22 04/14/22 07:28 07:28 07:28 WBC RBC Hgb Hct RDW Lymph % (Auto) Lymph # (Auto) Seg Neutrophils % Seg Neuts % (Manual) Lymphocytes % (Manual) Seg Neutrophils # Seg Neutrophils # Man Lymphocytes # (Manual) D-Dimer 5586.76 H ABG pH ABG pO2 ABG HCO3 ABG O2 Saturation ABG Base Excess ABG Hemoglobin VBG pH Oxyhemoglobin Sodium Potassium Chloride Carbon Dioxide BUN Creatinine Glucose POC Glucose Lactic Acid Calcium Phosphorus Magnesium Ferritin 454.7 H Total Bilirubin AST ALT Ammonia Lactate Dehydrogenase 1345 H C-Reactive Protein 4.80 H Total Protein Albumin Urine Creatinine Urine Total Protein Coronavirus (PCR) 04/14/22 04/14/22 04/14/22 07:28 07:28 09:26 WBC 18.6 H RBC 3.59 L Hgb Hct RDW 15.6 H Lymph % (Auto) Lymph # (Auto) Seg Neutrophils % Seg Neuts % (Manual) Lymphocytes % (Manual) Seg Neutrophils # Seg Neutrophils # Man Lymphocytes # (Manual) D-Dimer ABG pH ABG pO2 ABG HCO3 ABG O2 Saturation ABG Base Excess ABG Hemoglobin VBG pH Oxyhemoglobin Sodium 149 H Potassium Chloride 110.3 H Carbon Dioxide BUN 57 H Creatinine 2.3 H Glucose 205 H POC Glucose Lactic Acid Calcium Phosphorus Magnesium 2.90 H Ferritin Total Bilirubin AST ALT Ammonia Lactate Dehydrogenase C-Reactive Protein Total Protein Albumin Urine Creatinine Urine Total Protein Coronavirus (PCR) 04/14/22 04/14/22 04/14/22 11:52 15:41 17:18 WBC RBC Hgb Hct RDW Lymph % (Auto) Lymph # (Auto) Seg Neutrophils % Seg Neuts % (Manual) Lymphocytes % (Manual) Seg Neutrophils # Seg Neutrophils # Man Lymphocytes # (Manual) D-Dimer ABG pH 7.506 H ABG pO2 51.0 L ABG HCO3 ABG O2 Saturation 87.3 L ABG Base Excess ABG Hemoglobin 10.6 L VBG pH Oxyhemoglobin 85.4 L Sodium Potassium Chloride Carbon Dioxide BUN Creatinine Glucose POC Glucose 173 H 187 H Lactic Acid Calcium Phosphorus Magnesium Ferritin Total Bilirubin AST ALT Ammonia Lactate Dehydrogenase C-Reactive Protein Total Protein Albumin Urine Creatinine Urine Total Protein Coronavirus (PCR) 04/15/22 04/15/22 04/15/22 00:03 03:43 09:40 WBC 19.3 H RBC 3.18 L Hgb 9.3 L Hct 27.7 L RDW 15.8 H Lymph % (Auto) Lymph # (Auto) Seg Neutrophils % Seg Neuts % (Manual) Lymphocytes % (Manual) Seg Neutrophils # Seg Neutrophils # Man Lymphocytes # (Manual) D-Dimer ABG pH 7.477 H ABG pO2 59.1 L ABG HCO3 ABG O2 Saturation 90.5 L ABG Base Excess ABG Hemoglobin 9.5 L VBG pH Oxyhemoglobin 88.7 L Sodium Potassium Chloride Carbon Dioxide BUN Creatinine Glucose POC Glucose 246 H Lactic Acid Calcium Phosphorus Magnesium Ferritin Total Bilirubin AST ALT Ammonia Lactate Dehydrogenase C-Reactive Protein Total Protein Albumin Urine Creatinine Urine Total Protein Coronavirus (PCR) 04/15/22 04/15/22 10:00 12:00 WBC RBC Hgb Hct RDW Lymph % (Auto) Lymph # (Auto) Seg Neutrophils % Seg Neuts % (Manual) Lymphocytes % (Manual) Seg Neutrophils # Seg Neutrophils # Man Lymphocytes # (Manual) D-Dimer ABG pH ABG pO2 ABG HCO3 ABG O2 Saturation ABG Base Excess ABG Hemoglobin VBG pH Oxyhemoglobin Sodium 146 H Potassium Chloride 107.9 H Carbon Dioxide BUN 76 H Creatinine 1.9 H Glucose 214 H POC Glucose Lactic Acid 2.10 H* Calcium 7.7 L Phosphorus Magnesium Ferritin Total Bilirubin AST ALT Ammonia Lactate Dehydrogenase C-Reactive Protein Total Protein Albumin Urine Creatinine Urine Total Protein Coronavirus (PCR)
[2022-04-15] MEDS: SENNOSIDES/DOCUSATE SODIUM 8.6/50 MG TAB FEEDTUBE SCH ×2 (14:00→21:07)
[2022-04-15] MEDS: dexAMETHasone 4 MG/ML VIAL IV SCH (18:41)
[2022-04-15] MEDS ORDERED: fentaNYL 100 MCG/2 ML INJ IV ONE (20:18)
[2022-04-15] MEDS ORDERED: INSULIN GLARGINE 100 UNITS/ML SUB-Q SCH (22:00)
[2022-04-16] MEDS: INSULIN LISPRO 100 UNIT/ML SUB-Q SCH ×4 (00:28→18:01)
[2022-04-16 02:53] LABS: ABG Base Excess 0.9 mmol/L (-2.0-3.0); ABG HCO3 27.7 mmol/L (20.0-26.0); ABG Methemoglobin 0.5 % (0.0-1.5); ABG Oxygen Saturation 94.8 % (95.0-99.0); ABG PCO2 55.4 mm Hg; ABG PH 7.318 pH Units (7.350-7.450); ABG PO2 71.1 mm Hg (80.0-90.0)
[2022-04-16] MEDS: fentaNYL DRIP Premix 2,000 MCG/100 ML BAG IV SCH ×2 (05:31→18:03)
[2022-04-16 08:23] LABS: Hematocrit 33.4 % (30.3-42.9); Hemoglobin 10.7 gm/dl (10.1-14.3); Mean Corpuscular HGB Conc 32 % (30-34); Mean Corpuscular Volume 89 fl (79-97); Platelet Count 174 K/mm3 (140-440); Red Blood Count 3.75 M/mm3 (3.65-5.03); Red Cell Distribution Width 15.8 % (13.2-15.2)
[2022-04-16 08:40] LABS: Calcium 8.4 mg/dL (8.4-10.2)
[2022-04-16 08:44] LABS: Albumin 3.5 g/dL (3.9-5); Bilirubin,Direct 0.5 mg/dL (0-0.2)
--- NOTE | 2022-04-16 08:55 | Progress Note ---
Assessment and Plan Acute Renal Failure likely secondary to Ischemic ATN due to Sepsis and Hypotenison COVID positive Sepsis Hypotension Diabetes Mellitus/DKA Acute Respiratory Failure Hypokalemia Metabolic Acidosis Hypophosphatemia Plan: Cr is better, UOP is good, slowly rising BUN Baseline serum creatinine unknown. Creatinine clearance on 04/11/22 was 24 ml/min Renal ultrasound- no obstruction Hypernatremia-cont D5W 50 cc/h COVID positive-as per ID Renally dose medications Obtain daily weights Monitor I/O's daily Will continue to monitor renal function closely Subjective Date of service: 04/16/22 Principal diagnosis: ASHLEY Interval history: remains in ICU Objective - Vital Signs Vital signs: Vital Signs - 12hr 04/15/22 04/15/22 04/15/22 21:00 21:03 21:55 Temperature Pulse Rate 82 70 Respiratory 20 20 20 Rate Blood Pressure 97/67 O2 Sat by Pulse 97 94 Oximetry 04/15/22 04/15/22 04/15/22 22:00 23:00 23:50 Temperature 98.0 F Pulse Rate 63 63 63 Respiratory 20 20 Rate Blood Pressure 100/56 101/57 101/58 O2 Sat by Pulse 97 96 96 Oximetry 04/16/22 04/16/22 04/16/22 00:00 00:04 01:00 Temperature Pulse Rate 63 63 65 Respiratory 18 18 18 Rate Blood Pressure 101/58 101/58 103/59 O2 Sat by Pulse 97 96 97 Oximetry 04/16/22 04/16/22 04/16/22 02:00 03:00 03:32 Temperature Pulse Rate 64 78 78 Respiratory 18 18 Rate Blood Pressure 105/60 128/64 O2 Sat by Pulse 97 98 Oximetry 04/16/22 04/16/22 04/16/22 04:00 04:15 05:00 Temperature 97.0 F L Pulse Rate 97 H 101 H Respiratory 15 12 Rate Blood Pressure 134/72 138/73 O2 Sat by Pulse 100 Oximetry 04/16/22 04/16/22 04/16/22 05:05 06:00 06:16 Temperature Pulse Rate 97 H 104 H 104 H Respiratory 14 Rate Blood Pressure 150/74 O2 Sat by Pulse 97 100 97 Oximetry 04/16/22 04/16/22 07:00 07:51 Temperature Pulse Rate 104 H 107 H Respiratory 14 Rate Blood Pressure 148/73 143/72 O2 Sat by Pulse 98 99 Oximetry - Lab 04/16/22 Unknown 04/16/22 06:00 Most recent lab results ABG pH 7.318 pH Units (7.350-7.450) L 04/16/22 02:35 ABG pCO2 55.4 mm Hg 04/16/22 02:35 ABG pO2 71.1 mm Hg (80.0-90.0) L 04/16/22 02:35 ABG HCO3 27.7 mmol/L (20.0-26.0) H 04/16/22 02:35 ABG O2 Saturation 94.8 % (95.0-99.0) L 04/16/22 02:35 Calcium 8.4 mg/dL (8.4-10.2) 04/16/22 06:00 Phosphorus 3.60 mg/dL (2.5-4.5) 04/14/22 07:28 Magnesium 2.90 mg/dL (1.7-2.3) H 04/14/22 07:28 Urine Creatinine 160.5 mg/dL (0.1-20.0) H 04/11/22 11:23 Urine Sodium 17 mmol/L 04/10/22 14:50 Urine Total Protein 172 mg/dL (5-11.8) H 04/10/22 14:50 Medications & Allergies - Medications Allergies/Adverse Reactions: Allergies No Known Allergies Allergy (Verified 04/09/22 13:44) Active Medications: Generic Name Dose Route Start Last Admin Trade Name Freq PRN Reason Stop Dose Admin Acetaminophen 650 mg 04/09/22 18:11 Acetaminophen 325 Mg Tab PO Q4H PRN Pain MILD(1-3)/Fever >100.5/CARCAMO Dexamethasone 8 mg 04/09/22 19:00 04/15/22 18:41 Dexamethasone 4 Mg/Ml Vial IV 04/18/22 19:01 8 mg Q24H JO ANN Administration Dextrose 0 ml 04/10/22 00:40 Dextrose 50% In Water (25gm) 50 Ml Syringe IV Q30MIN PRN Hypoglycemia Protocol Enoxaparin Sodium 30 mg 04/10/22 10:00 04/15/22 09:25 Enoxaparin 30 Mg/0.3 Ml Inj SUB-Q 30 mg QDAY JO ANN Administration Famotidine 10 mg 04/14/22 10:00 04/15/22 21:08 Famotidine 10 Mg Tab FEEDTUBE 10 mg BID JO ANN Administration Fentanyl 50 mcg 04/15/22 09:25 Fentanyl 100 Mcg/2 Ml Inj IV Q10MIN PRN ANALGESIA NORepinephrine/NS 8 MG-250 ML 8 mg in 250 mls @ 3.75 mls/hr 04/09/22 16:00 04/11/22 12:01 Norepinephrine/Ns 8 Mg-250 Ml (Double Conc) IV 0 mcg/min TITRATE JO ANN 0 mls/hr Titration Protocol 2 MCG/MIN Propofol 1,000 mg in 100 mls @ 2.493 mls/hr 04/14/22 21:00 04/15/22 19:06 Diprivan 10 Mg/Ml IV 0 mcg/kg/min TITR JO ANN 0 mls/hr Titration Protocol 5 MCG/KG/MIN Fentanyl Citrate 2,000 mcg in 100 mls @ 4.155 mls/hr 04/15/22 10:00 04/16/22 06:01 Fentanyl Drip Premix IV 2 mcg/kg/hr TITR JO ANN 8.31 mls/hr Titration Protocol 1 MCG/KG/HR Dextrose 1,000 mls @ 50 mls/hr 04/16/22 09:00 D5w IV DIRECT [facility] Insulin Glargine 20 units 04/16/22 22:00 Insulin Glargine 100 Units/Ml SUB-Q QHS [facility] Insulin Human Lispro 0 unit 04/12/22 12:00 04/16/22 05:29 Insulin Lispro 100 Unit/Ml SUB-Q 3 unit Q6HR JO ANN Administration Protocol Ondansetron HCl 4 mg 04/09/22 18:11 Ondansetron 4 Mg/2 Ml Inj IV Q8H PRN Nausea And Vomiting Senna/Docusate Sodium 2 tab 04/15/22 14:00 04/15/22 21:07 Sennosides/Docusate Sodium 8.6/50 Mg Tab FEEDTUBE 2 tab BID JO ANN Administration Sodium Chloride 10 ml 04/09/22 22:00 04/15/22 21:08 Sodium Chloride 0.9% 10 Ml Flush Syringe IV 10 ml BID JO ANN Administration Sodium Chloride 10 ml 04/09/22 18:11 Sodium Chloride 0.9% 10 Ml Flush Syringe IV PRN PRN LINE FLUSH
[2022-04-16] MEDS ORDERED: DEXTROSE 5% IN WATER 1,000 ML IV SCH (09:00)
[2022-04-16 09:17] LABS: C-Reactive Protein 1.9 mg/dL (0.00-1.30)
[2022-04-16] MEDS: SENNOSIDES/DOCUSATE SODIUM 8.6/50 MG TAB FEEDTUBE SCH ×2 (09:35→21:45)
[2022-04-16] MEDS: FREE WATER PO SCH ×4 (09:36→21:56)
[2022-04-16] MEDS: FAMOTIDINE 10 MG TAB FEEDTUBE SCH ×2 (09:36→21:45)
[2022-04-16] MEDS: ENOXAPARIN 30 MG/0.3 ML INJ SUB-Q SCH (09:36)
--- NOTE | 2022-04-16 10:41 | Progress Note ---
<KEE GONZALEZ - Last Filed: 04/16/22 18:21> Assessment and Plan Assessment and plan: This is a 77-year-old female with DM and ovarian cancer in remission admitted for septic shock secondary to COVID-19 pneumonia, acute kidney injury, acute hypoxic respiratory failure and currently in multiorgan failure Hospital Course to Date: 04/10: Patient noted to have myoclonic jerking this morning and was given 2 mg of Ativan which aborted the jerking. Neurology was consulted and MRI and EEG were ordered. Patient admits to [facility] for MRI at this time. Patient is hypotensive and currently on Levophed, vasopressin and dobutamine. Nephrology consulted for renal failure. Remains on insulin drip and was placed on a bicarbonate drip this morning. Infectious disease consulted who added vancomy socrates and ordered follow-up labs. Dr. Craig had a conversation with family about prognosis and given multisystem organ failure. We will continue supportive care. 04/11/22-patient seen at bedside. T/V orally intubated. No purposeful response on assessment. make periodic jerking movement. EEG done today-will f/u with result. BICarb d/c -acidosis has improved-started on D5 11/28 NS. Reviewed specialist note and reces-renal US-no acute finding. Continue Pressors for MAPs >65. Wean as tolerated. Bicarb-d/c and start D5W. 04/12: Patient is following commands, nutrition consulted for tube feedings, PEEP decreased with possible PSV in the a.m., insulin drip discontinued and SSI/basal dose insulin started. [facility] will update son. 04/13: Renal function continues to improve, intermittently following commands, [facility] ordered 1 x 40 mg of Lasix repeat CXR in the a.m. Tolerating tube feedings. 04/14: PEEP increased per [facility], will not repeat Lasix again due to increasing renal functions. Ordered CT head. Overnight patient was tachypneic and agitated and Precedex drip was started. We will start Seroquel and wean Precedex as tolerated. 04/15: IVF started by nephro yesterday for hypernatremia, awaiting BMP for today to result. Overnight patient was started on propofol and has propofol and precedex infusing. Fentanyl gtt ordered and precedex gtt discontinued. 04/16: Patient remains on the vent, back on sedation overnight due to vent unsynchrony. Remains encephalopathic, EEG pending, Neurology reconsulted. Continue FWF Q4hrs for hypernatremia and SSI and basal insulin adjusted for better glycemic control. Worsening leukocytosis noted, patient remains afebrile. Patient completed X5 of IV Abx and still on IV steroids, will continue to monitor for now. ID is also following. D/C [facility] plan for family phone conference with patient's son tomorrow to discuss goal of care. Neuro: Acute Metabolic Encephalopathy Myoclonic Jerks -Myoclonic jerking aborted with Ativan early in admission but none noted since -Initial CT head showed no acute abnormality -EEG absence of definite epileptiform abnormalities would not rule out the possibility of epilepsy, compatible with moderate to moderately severe diffuse encephalopathy -Repeat CTH shows no acute abnormality -repeat eeg pending -Neurology reconsulted -Avoid delirium -Reorientation as needed -Maintain sleep-wake cycle Cardiac: NAD -Blood pressure monitoring per protocol -s/p vasopressor support with Levophed, dobutamine, vasopressin -MAP goal greater than 65 -Echocardiogram shows LVEF 55 to 60%, normal bivalve function, mildly dilated right ventricle Respiratory: Acute hypoxic respiratory failure ARDS COVID Pneumonia -CCM consulted, appreciate recommendations -Intubated in the emergency department 04/09 with 7.00 ETT at 22 the lips -Vent setting:PRVC- 50%,10,18,400 -A.m. ABG and CXR noted -CCM consulted, appreciate recommendations -Continue IV Steroids and Nebs per CCM -VAP bundle addressed -Aspiration precaution HOB above 30 -Daily ABG and CXR -Continue SPO2 monitoring for SPO2 goal above 92% : Acute kidney injury likely secondary to ischemic acute tubular necrosis Hypernatremia -FeNa calculated at 0.13 -Renal ultrasound Shows mild echogenic kidneys which can be seen in medical renal disease, no hydronephrosis, small amount of free fluid in the abdomen -Nephrology consulted, appreciate recommendations -Continue FWF Q4hrs for hypernatremia -Strict intake and output -Renally dose medications -Avoid nephrotoxic medications -Daily weights -Monitor and replace electrolytes as needed ID: Septic shock secondary to COVID-19 pneumonia Lactic Acidosis Leukocytosis -Infectious disease consulted, appreciate recommendations -Admit CXR showed bilateral air space opacities -Covid 19 PCR (+) -Antibiotic therapy with Rocephin (04/11-04/15) and vancomycin (04/11-04/14) -Decadron 8 mg daily for 10 days (04/09-04/18) -Per ID: Due to renal failure, not a candidate for remdesivir -S/p Actemra 04/10 -Contact/droplet precautions -f/u blood culture -Monitor WBC and temperature curve -Trend COVID-19 inflammatory markers Endo: h/o DM s/p DKA -S/p insulin drip -Remain hyperglycemic, probably due to IV steroids -SSI and Lantus adjusted -Continue Accu-Cheks every 6 -While critically ill target blood glucose of 140-180 Elevated Ddimer -most likely due to COVID -BLE dopplar US shows no DVT -Continue to trend imflammatory markers -Lovenox subcu -Monitor for signs of bleeding -SCDs to BLE while in bed -Transfuse hemoglobin less than 7 GI: Transaminitis -Presented with elevated LFTs -LTFs still labile -Continue to trend LFTs GI/DVT Prophylaxis -PPI- Pepcid -Lovenox switch to heparin subQ due to ASHLEY -SCDs to bilateral lower extremities while in bed The high probability of a clinically significant, sudden or life threatening deterioration of the [multi] system(s) required my full and direct attention, intervention and personal management. The aggregate critical care time was [60] minutes. This time is in addition to time spent performing reported procedures but includes the following: [x] Data Review and interpretation [x] Patient assessment and monitoring of vital signs [x] Documentation [x] Medication orders and management Disposition Plan: ICU Total Time Spent with Patient (Minutes): 60 History Interval history: Patient seen and examined at the bedside. Remains intubated and on low dose sedation. Open eyes spontaneously but does not track, nor follow any commands. Pupils are round and reactive, with +cough/gag. Per RN sedation was resumed overnight due to vent unsynchrony. Hospitalist Physical - Constitutional Vitals: Temp Pulse Resp BP Pulse Ox 97.9 F 105 H 13 149/79 98 04/16/22 08:00 04/16/22 09:00 04/16/22 09:00 04/16/22 09:00 04/16/22 09:00 General appearance: Present: no acute distress, well-nourished, obese, other (Intubated and sedated) - EENT Eyes: Present: PERRL ENT: other (Dry oral mucosa) - Neck Neck: Present: normal ROM - Respiratory Respiratory effort: normal Respiratory: bilateral: rhonchi - Cardiovascular Rhythm: regular Heart Sounds: Present: S1 & S2 - Extremities Extremities: no ischemia, pulses intact, pulses symmetrical Extremity abnormal: edema - Peripheral Assessment Bilateral Upper Extremity Edema Type: Pitting Edema Degree: 2+ Capillary Refill: < 3 seconds Skin Temperature: Warm Generalized Edema Type: Non-pitting Edema Degree: 2+ Capillary Refill: < 3 seconds Skin Temperature: Warm Peripheral Pulses: within normal limits - Abdominal General gastrointestinal: soft, non-distended, normal bowel sounds - Integumentary Integumentary: Present: warm, dry - Psychiatric Psychiatric: other (Intubated and sedated) - Neurologic Neurologic: moves all extremities (Non-purposeful movement of BUE, no movement in lower extremities), other (Intubated and sedated. Open eyes spontaneously, but farrar not track nor follow any commands. Pupils are round and reactive) - Allied Health Allied health notes reviewed: nursing, case management HEART Score - HEART Score Age: > 65 Risk factors: 1-2 risk factors Troponin: Troponin T < 0.010 ng/mL (0.00-0.029) 04/09/22 12:52 Troponin: < normal limit - Critical Actions Critical Actions: 4-6 pts:12-16.6% risk of adverse cardiac event. Should be admitted Results - Labs CBC & Chem 7: 04/16/22 Unknown 04/16/22 06:00 Labs: Laboratory Last Values WBC 25.2 K/mm3 (4.5-11.0) H 04/16/22 Unknown RBC 3.75 M/mm3 (3.65-5.03) 04/16/22 Unknown Hgb 10.7 gm/dl (10.1-14.3) 04/16/22 Unknown Hct 33.4 % (30.3-42.9) 04/16/22 Unknown MCV 89 fl (79-97) 04/16/22 Unknown MCH 29 pg (28-32) 04/16/22 Unknown MCHC 32 % (30-34) 04/16/22 Unknown RDW 15.8 % (13.2-15.2) H 04/16/22 Unknown Plt Count 174 K/mm3 (140-440) 04/16/22 Unknown Lymph % (Auto) 5.7 % (13.4-35.0) L 04/12/22 00:01 [place] % (Auto) 4.5 % (0.0-7.3) 04/12/22 00:01 Eos % (Auto) 0.0 % (0.0-4.3) 04/12/22 00:01 Baso % (Auto) 0.2 % (0.0-1.8) 04/12/22 00:01 Lymph # (Auto) 0.9 K/mm3 (1.2-5.4) L 04/12/22 00:01 [place] # (Auto) 0.7 K/mm3 (0.0-0.8) 04/12/22 00:01 Eos # (Auto) 0.0 K/mm3 (0.0-0.4) 04/12/22 00:01 Baso # (Auto) 0.0 K/mm3 (0.0-0.1) 04/12/22 00:01 Add Manual Diff Complete 04/10/22 04:24 Total Counted 100 04/10/22 04:24 Seg Neutrophils % 89.6 % (40.0-70.0) H 04/12/22 00:01 Seg Neuts % (Manual) 94.0 % (40.0-70.0) H 04/10/22 04:24 Band Neutrophils % 0 % 04/10/22 04:24 Lymphocytes % (Manual) 3.0 % (13.4-35.0) L 04/10/22 04:24 Reactive Lymphs % (Man) 0 % 04/10/22 04:24 Monocytes % (Manual) 3.0 % (0.0-7.3) 04/10/22 04:24 Eosinophils % (Manual) 0 % (0.0-4.3) 04/10/22 04:24 Basophils % (Manual) 0 % (0.0-1.8) 04/10/22 04:24 Metamyelocytes % 0 % 04/10/22 04:24 Myelocytes % 0 % 04/10/22 04:24 Promyelocytes % 0 % 04/10/22 04:24 Blast Cells % 0 % 04/10/22 04:24 Nucleated RBC % Not Reportable 04/10/22 04:24 Seg Neutrophils # 14.6 K/mm3 (1.8-7.7) H 04/12/22 00:01 Seg Neutrophils # Man 15.4 K/mm3 (1.8-7.7) H 04/10/22 04:24 Band Neutrophils # 0.0 K/mm3 04/10/22 04:24 Lymphocytes # (Manual) 0.5 K/mm3 (1.2-5.4) L 04/10/22 04:24 Abs React Lymphs (Man) 0.0 K/mm3 04/10/22 04:24 Monocytes # (Manual) 0.5 K/mm3 (0.0-0.8) 04/10/22 04:24 Eosinophils # (Manual) 0.0 K/mm3 (0.0-0.4) 04/10/22 04:24 Basophils # (Manual) 0.0 K/mm3 (0.0-0.1) 04/10/22 04:24 Metamyelocytes # 0.0 K/mm3 04/10/22 04:24 Myelocytes # 0.0 K/mm3 04/10/22 04:24 Promyelocytes # 0.0 K/mm3 04/10/22 04:24 Blast Cells # 0.0 K/mm3 04/10/22 04:24 WBC Morphology Not Reportable 04/10/22 04:24 Hypersegmented Neuts Not Reportable 04/10/22 04:24 Hyposegmented Neuts Not Reportable 04/10/22 04:24 Hypogranular Neuts Not Reportable 04/10/22 04:24 Smudge Cells Not Reportable 04/10/22 04:24 Toxic Granulation Not Reportable 04/10/22 04:24 Toxic Vacuolation Not Reportable 04/10/22 04:24 Dohle Bodies Not Reportable 04/10/22 04:24 Pelger-Huet Anomaly Not Reportable 04/10/22 04:24 Aleja Rods Not Reportable 04/10/22 04:24 Platelet Estimate Consistent w auto 04/10/22 04:24 Clumped Platelets Not Reportable 04/10/22 04:24 Plt Clumps, EDTA Not Reportable 04/10/22 04:24 Large Platelets Not Reportable 04/10/22 04:24 Giant Platelets Rare 04/10/22 04:24 Platelet Satelliting Not Reportable 04/10/22 04:24 Plt Morphology Comment Not Reportable 04/10/22 04:24 RBC Morphology Normal 04/10/22 04:24 Dimorphic RBCs Not Reportable 04/10/22 04:24 Polychromasia Not Reportable 04/10/22 04:24 Hypochromasia Not Reportable 04/10/22 04:24 Poikilocytosis Not Reportable 04/10/22 04:24 Anisocytosis Not Reportable 04/10/22 04:24 Microcytosis Not Reportable 04/10/22 04:24 Macrocytosis Not Reportable 04/10/22 04:24 Spherocytes Not Reportable 04/10/22 04:24 Pappenheimer Bodies Not Reportable 04/10/22 04:24 Sickle Cells Not Reportable 04/10/22 04:24 Target Cells Not Reportable 04/10/22 04:24 Tear Drop Cells Not Reportable 04/10/22 04:24 Ovalocytes Not Reportable 04/10/22 04:24 Helmet Cells Not Reportable 04/10/22 04:24 [place] Bodies Not Reportable 04/10/22 04:24 [place] Rings Not Reportable 04/10/22 04:24 [place] Cells Not Reportable 04/10/22 04:24 Bite Cells Not Reportable 04/10/22 04:24 Crenated Cell Not Reportable 04/10/22 04:24 Elliptocytes Not Reportable 04/10/22 04:24 Acanthocytes (Spur) Not Reportable 04/10/22 04:24 Rouleaux Not Reportable 04/10/22 04:24 Hemoglobin C Crystals Not Reportable 04/10/22 04:24 Schistocytes Not Reportable 04/10/22 04:24 Malaria parasites Not Reportable 04/10/22 04:24 Allan Bodies Not Reportable 04/10/22 04:24 Hem Pathologist Commnt No 04/10/22 04:24 PT 14.5 Sec. (12.2-14.9) 04/09/22 12:52 INR 1.02 (0.87-1.13) 04/09/22 12:52 D-Dimer 3886.80 ng/mlDDU (0-234) H 04/16/22 Unknown ABG pH 7.318 pH Units (7.350-7.450) L 04/16/22 02:35 ABG pCO2 55.4 mm Hg 04/16/22 02:35 ABG pO2 71.1 mm Hg (80.0-90.0) L 04/16/22 02:35 ABG HCO3 27.7 mmol/L (20.0-26.0) H 04/16/22 02:35 ABG O2 Saturation 94.8 % (95.0-99.0) L 04/16/22 02:35 ABG O2 Content 13.6 (0.0-44) 04/16/22 02:35 ABG Base Excess 0.9 mmol/L (-2.0-3.0) 04/16/22 02:35 ABG Hemoglobin 10.3 gm/dl (12.0-16.0) L 04/16/22 02:35 ABG Carboxyhemoglobin 1.5 % (0.0-5.0) 04/16/22 02:35 ABG Methemoglobin 0.5 % (0.0-1.5) 04/16/22 02:35 VBG pH 7.303 (7.320-7.420) L 04/09/22 12:52 Oxyhemoglobin 92.9 % (95.0-99.0) L 04/16/22 02:35 FiO2 55 % 04/16/22 02:35 Sodium 148 mmol/L (137-145) H 04/16/22 06:00 Potassium 5.0 mmol/L (3.6-5.0) 04/16/22 06:00 Chloride 109.9 mmol/L (98-107) H 04/16/22 06:00 Carbon Dioxide 25 mmol/L (22-30) 04/16/22 06:00 Anion Gap 18 mmol/L 04/16/22 06:00 BUN 84 mg/dL (7-17) H 04/16/22 06:00 Creatinine 1.7 mg/dL (0.6-1.2) H 04/16/22 06:00 Estimated GFR 35 ml/min 04/16/22 06:00 BUN/Creatinine Ratio 49 % 04/16/22 06:00 Glucose 276 mg/dL (65-100) H 04/16/22 06:00 POC Glucose 201 mg/dL (70-105) H 04/16/22 00:17 Lactic Acid 2.10 mmol/L (0.7-2.0) H* 04/15/22 12:00 Calcium 8.4 mg/dL (8.4-10.2) 04/16/22 06:00 Phosphorus 3.60 mg/dL (2.5-4.5) 04/14/22 07:28 Magnesium 2.90 mg/dL (1.7-2.3) H 04/14/22 07:28 Ferritin 446.2 ng/mL (10.0-200.0) H 04/16/22 04:00 Total Bilirubin 0.90 mg/dL (0.1-1.2) 04/16/22 04:00 Direct Bilirubin 0.5 mg/dL (0-0.2) H 04/16/22 04:00 Indirect Bilirubin 0.4 mg/dL 04/16/22 04:00 AST 69 units/L (5-40) H 04/16/22 04:00 ALT 120 units/L (7-56) H 04/16/22 04:00 Alkaline Phosphatase 110 units/L (35-129) 04/16/22 04:00 Ammonia 20.0 umol/L (25-60) L 04/09/22 12:52 Lactate Dehydrogenase 1467 units/L (91-180) H 04/16/22 04:00 Troponin T < 0.010 ng/mL (0.00-0.029) 04/09/22 12:52 C-Reactive Protein 1.90 mg/dL (0.00-1.30) H 04/16/22 04:00 NT-Pro-B Natriuret Pep 101.1 pg/mL (0-900) 04/09/22 13:45 Total Protein 5.9 g/dL (6.3-8.2) L 04/16/22 04:00 Albumin 3.5 g/dL (3.9-5) L 04/16/22 04:00 Albumin/Globulin Ratio 1.5 % 04/16/22 04:00 Procalcitonin 3.13 ng/mL (<0.15) 04/10/22 11:47 TSH 1.560 mlU/mL (0.270-4.200) 04/09/22 12:52 Free T4 1.33 ng/dL (0.76-1.46) 04/09/22 12:52 Urine Color Yellow (Yellow) 04/09/22 13:24 Urine Turbidity Clear (Clear) 04/09/22 13:24 Urine pH 5.0 (5.0-7.0) 04/09/22 13:24 Ur Specific [place] 1.011 (1.003-1.030) 04/09/22 13:24 Urine Protein 30 mg/dl mg/dL (Negative) 04/09/22 13:24 Urine Glucose (UA) Neg mg/dL (Negative) 04/09/22 13:24 Urine Ketones 20 mg/dL (Negative) 04/09/22 13:24 Urine Blood Neg (Negative) 04/09/22 13:24 Urine Nitrite Neg (Negative) 04/09/22 13:24 Urine Bilirubin Neg (Negative) 04/09/22 13:24 Urine Urobilinogen 4.0 mg/dL (<2.0) 04/09/22 13:24 Ur Leukocyte Esterase Neg (Negative) 04/09/22 13:24 Urine WBC (Auto) 2.0 /HPF (0.0-6.0) 04/09/22 13:24 Urine RBC (Auto) < 1.0 /HPF (0.0-6.0) 04/09/22 13:24 U Epithel Cells (Auto) < 1.0 /HPF (0-13.0) 04/09/22 13:24 Urine Mucus Few /HPF 04/09/22 13:24 Urine Eosinophils None seen (None Seen) 04/10/22 14:50 Urine Total Volume 750 ml 04/11/22 11:23 Urine Creatinine 160.5 mg/dL (0.1-20.0) H 04/11/22 11:23 Ur Creatinine 24 Hour 1.2 (0.8-2.8) 04/11/22 11:23 Height (in) Not Reportable 04/11/22 11:23 Weight (lb) Not Reportable 04/11/22 11:23 Creatinine Clearance Not Reportable 04/11/22 11:23 Protein/Creatinin Ratio 0.77 04/10/22 14:50 Urine Sodium 17 mmol/L 04/10/22 14:50 Urine Total Protein 172 mg/dL (5-11.8) H 04/10/22 14:50 Random Vancomycin 11.9 ug/mL (0-40.0) 04/11/22 03:58 Urine Opiates Screen Presumptive negative 04/09/22 22:58 Urine Methadone Screen Presumptive negative 04/09/22 22:58 Ur Barbiturates Screen Presumptive negative 04/09/22 22:58 Ur Phencyclidine Scrn Presumptive negative 04/09/22 22:58 Ur Amphetamines Screen Presumptive negative 04/09/22 22:58 U Benzodiazepines Scrn Presumptive negative 04/09/22 22:58 Urine Cocaine Screen Presumptive negative 04/09/22 22:58 U Marijuana (THC) Screen Presumptive negative 04/09/22 22:58 Drugs of Abuse Note Disclamer 04/09/22 22:58 Coronavirus (PCR) Positive (Negative) A 04/09/22 13:02 Influenza A (RT-PCR) Negative (Negative) 04/09/22 14:15 Influenza B (RT-PCR) Negative (Negative) 04/09/22 14:15 [place]/IV: Voiding Method Indwelling Catheter Active Medications - Current Medications Current Medications: Generic Name Dose Route Start Last Admin Trade Name Freq PRN Reason Stop Dose Admin Acetaminophen 650 mg 04/09/22 18:11 Acetaminophen 325 Mg Tab PO Q4H PRN Pain MILD(1-3)/Fever >100.5/CARCAMO Dexamethasone 8 mg 04/09/22 19:00 04/15/22 18:41 Dexamethasone 4 Mg/Ml Vial IV 04/18/22 19:01 8 mg Q24H JO ANN Administration Dextrose 0 ml 04/10/22 00:40 Dextrose 50% In Water (25gm) 50 Ml Syringe IV Q30MIN PRN Hypoglycemia Protocol Enoxaparin Sodium 30 mg 04/10/22 10:00 04/16/22 09:36 Enoxaparin 30 Mg/0.3 Ml Inj SUB-Q 30 mg QDAY JO ANN Administration Famotidine 10 mg 04/14/22 10:00 04/16/22 09:36 Famotidine 10 Mg Tab FEEDTUBE 10 mg BID JO ANN Administration Fentanyl 50 mcg 04/15/22 09:25 Fentanyl 100 Mcg/2 Ml Inj IV Q10MIN PRN ANALGESIA NORepinephrine/NS 8 MG-250 ML 8 mg in 250 mls @ 3.75 mls/hr 04/09/22 16:00 04/11/22 12:01 Norepinephrine/Ns 8 Mg-250 Ml (Double Conc) IV 0 mcg/min TITRATE JO ANN 0 mls/hr Titration Protocol 2 MCG/MIN Propofol 1,000 mg in 100 mls @ 2.493 mls/hr 04/14/22 21:00 04/15/22 19:06 Diprivan 10 Mg/Ml IV 0 mcg/kg/min TITR JO ANN 0 mls/hr Titration Protocol 5 MCG/KG/MIN Fentanyl Citrate 2,000 mcg in 100 mls @ 4.155 mls/hr 04/15/22 10:00 04/16/22 06:01 Fentanyl Drip Premix IV 2 mcg/kg/hr TITR JO ANN 8.31 mls/hr Titration Protocol 1 MCG/KG/HR Insulin Glargine 20 units 04/16/22 22:00 Insulin Glargine 100 Units/Ml SUB-Q QHS JO ANN Insulin Human Lispro 0 unit 04/12/22 12:00 04/16/22 05:29 Insulin Lispro 100 Unit/Ml SUB-Q 3 unit Q6HR JO ANN Administration Protocol Ondansetron HCl 4 mg 04/09/22 18:11 Ondansetron 4 Mg/2 Ml Inj IV Q8H PRN Nausea And Vomiting Senna/Docusate Sodium 2 tab 04/15/22 14:00 04/16/22 09:35 Sennosides/Docusate Sodium 8.6/50 Mg Tab FEEDTUBE 2 tab BID JO ANN Administration Sodium Chloride 10 ml 04/09/22 22:00 04/16/22 09:38 Sodium Chloride 0.9% 10 Ml Flush Syringe IV 10 ml BID JO ANN Administration Sodium Chloride 10 ml 04/09/22 18:11 Sodium Chloride 0.9% 10 Ml Flush Syringe IV PRN PRN LINE FLUSH Nutrition/Malnutrition Assess - Dietary Evaluation Nutrition/Malnutrition Findings: Nutrition Notes Start: 04/12/22 10:07 Freq: Status: Active Protocol: Document 04/15/22 15:18 RYDER (Rec: 04/15/22 15:23 RYDER [id number]) Nutrition Notes Initial or Follow up Reassessment Current Diagnosis Acute Kidney Injury,Diabetes, Sepsis,Respiratory Failure Other Pertinent Diagnosis AMS, Bilat pneu, COVID-19 (+), Hypotension Current Diet TF - Glucerna 1.2 at 55ml/hr Labs/Tests Na 146 BUN 76 Cr 1.9 BG 214 Pertinent Medications Propofol at 9.972ml/hr ( provides 263 kcal) Height 5 ft 7 in Weight 83.1 kg [place] Body Weight (kg) 61.36 BMI 28.7 Weight change and time frame 98% energy 79% pro Weight Status Overweight Subjective/Other Information Pt remains on vent support; not on pressor support at this time. Renal function being monitored closely. Observed TF infusing at goal rate. Burn Absent Trauma Absent #1 Nutrition Diagnosis Inadequate oral intake As Evidenced by Signs and Symptoms EN support continues Diagnosis Progress(for reassessment Continues documentation) Is patient on ventilator? Yes Is Patient Ambulatory and/or Out of Bed No REE-([facility]-confined to bed) 4371.838 Calculation Used for Recommendations [facility] Additional Notes Pro needs 1.2-2g/k-166g/ day Fluid needs 1ml/kcal Nutrition Intervention Nutrition Support: Continue Glucerna 1.2 at 55ml/ hr with 100ml water flush q4h. Kcal 1,584 Protein (gm) 79 Carbohydrates (gm) 151 Fat (gm) 79 Fluid (mL) 1,063 Fiber (gm) 21 Goal #1 TF tolerance Goal #2 TF to meet at least 75% energy and pro needs Follow-Up By: 04/22/22 Additional Comments F/U: stable TF, vent status, renal function, propofol <JS HAIDER - Last Filed: 04/17/22 06:31> Assessment and Plan Assessment and plan: I saw and evaluated the patient. I agree with the findings and the plan of care as documented in the Nurse Practitioner's~note, with the following corrections and additions. Hospitalist Physical - Constitutional Vitals: Temp Pulse Resp BP Pulse Ox 98.5 F 117 H 19 135/67 98 04/17/22 03:19 04/17/22 06:00 04/17/22 06:00 04/17/22 06:00 04/17/22 06:00 HEART Score - HEART Score Troponin: Troponin T < 0.010 ng/mL (0.00-0.029) 04/09/22 12:52 Results - Labs CBC & Chem 7: 04/17/22 05:12 04/17/22 05:12 Labs: Laboratory Last Values WBC 22.2 K/mm3 (4.5-11.0) H 04/17/22 05:12 RBC 3.50 M/mm3 (3.65-5.03) L 04/17/22 05:12 Hgb 10.1 gm/dl (10.1-14.3) 04/17/22 05:12 Hct 30.9 % (30.3-42.9) 04/17/22 05:12 MCV 88 fl (79-97) 04/17/22 05:12 MCH 29 pg (28-32) 04/17/22 05:12 MCHC 33 % (30-34) 04/17/22 05:12 RDW 15.8 % (13.2-15.2) H 04/17/22 05:12 Plt Count 172 K/mm3 (140-440) 04/17/22 05:12 Lymph % (Auto) 5.7 % (13.4-35.0) L 04/12/22 00:01 [place] % (Auto) 4.5 % (0.0-7.3) 04/12/22 00:01 Eos % (Auto) 0.0 % (0.0-4.3) 04/12/22 00:01 Baso % (Auto) 0.2 % (0.0-1.8) 04/12/22 00:01 Lymph # (Auto) 0.9 K/mm3 (1.2-5.4) L 04/12/22 00:01 [place] # (Auto) 0.7 K/mm3 (0.0-0.8) 04/12/22 00:01 Eos # (Auto) 0.0 K/mm3 (0.0-0.4) 04/12/22 00:01 Baso # (Auto) 0.0 K/mm3 (0.0-0.1) 04/12/22 00:01 Add Manual Diff Complete 04/10/22 04:24 Total Counted 100 04/10/22 04:24 Seg Neutrophils % 89.6 % (40.0-70.0) H 04/12/22 00:01 Seg Neuts % (Manual) 94.0 % (40.0-70.0) H 04/10/22 04:24 Band Neutrophils % 0 % 04/10/22 04:24 Lymphocytes % (Manual) 3.0 % (13.4-35.0) L 04/10/22 04:24 Reactive Lymphs % (Man) 0 % 04/10/22 04:24 Monocytes % (Manual) 3.0 % (0.0-7.3) 04/10/22 04:24 Eosinophils % (Manual) 0 % (0.0-4.3) 04/10/22 04:24 Basophils % (Manual) 0 % (0.0-1.8) 04/10/22 04:24 Metamyelocytes % 0 % 04/10/22 04:24 Myelocytes % 0 % 04/10/22 04:24 Promyelocytes % 0 % 04/10/22 04:24 Blast Cells % 0 % 04/10/22 04:24 Nucleated RBC % Not Reportable 04/10/22 04:24 Seg Neutrophils # 14.6 K/mm3 (1.8-7.7) H 04/12/22 00:01 Seg Neutrophils # Man 15.4 K/mm3 (1.8-7.7) H 04/10/22 04:24 Band Neutrophils # 0.0 K/mm3 04/10/22 04:24 Lymphocytes # (Manual) 0.5 K/mm3 (1.2-5.4) L 04/10/22 04:24 Abs React Lymphs (Man) 0.0 K/mm3 04/10/22 04:24 Monocytes # (Manual) 0.5 K/mm3 (0.0-0.8) 04/10/22 04:24 Eosinophils # (Manual) 0.0 K/mm3 (0.0-0.4) 04/10/22 04:24 Basophils # (Manual) 0.0 K/mm3 (0.0-0.1) 04/10/22 04:24 Metamyelocytes # 0.0 K/mm3 04/10/22 04:24 Myelocytes # 0.0 K/mm3 04/10/22 04:24 Promyelocytes # 0.0 K/mm3 04/10/22 04:24 Blast Cells # 0.0 K/mm3 04/10/22 04:24 WBC Morphology Not Reportable 04/10/22 04:24 Hypersegmented Neuts Not Reportable 04/10/22 04:24 Hyposegmented Neuts Not Reportable 04/10/22 04:24 Hypogranular Neuts Not Reportable 04/10/22 04:24 Smudge Cells Not Reportable 04/10/22 04:24 Toxic Granulation Not Reportable 04/10/22 04:24 Toxic Vacuolation Not Reportable 04/10/22 04:24 Dohle Bodies Not Reportable 04/10/22 04:24 Pelger-Huet Anomaly Not Reportable 04/10/22 04:24 Aleja Rods Not Reportable 04/10/22 04:24 Platelet Estimate Consistent w auto 04/10/22 04:24 Clumped Platelets Not Reportable 04/10/22 04:24 Plt Clumps, EDTA Not Reportable 04/10/22 04:24 Large Platelets Not Reportable 04/10/22 04:24 Giant Platelets Rare 04/10/22 04:24 Platelet Satelliting Not Reportable 04/10/22 04:24 Plt Morphology Comment Not Reportable 04/10/22 04:24 RBC Morphology Normal 04/10/22 04:24 Dimorphic RBCs Not Reportable 04/10/22 04:24 Polychromasia Not Reportable 04/10/22 04:24 Hypochromasia Not Reportable 04/10/22 04:24 Poikilocytosis Not Reportable 04/10/22 04:24 Anisocytosis Not Reportable 04/10/22 04:24 Microcytosis Not Reportable 04/10/22 04:24 Macrocytosis Not Reportable 04/10/22 04:24 Spherocytes Not Reportable 04/10/22 04:24 Pappenheimer Bodies Not Reportable 04/10/22 04:24 Sickle Cells Not Reportable 04/10/22 04:24 Target Cells Not Reportable 04/10/22 04:24 Tear Drop Cells Not Reportable 04/10/22 04:24 Ovalocytes Not Reportable 04/10/22 04:24 Helmet Cells Not Reportable 04/10/22 04:24 [place] Bodies Not Reportable 04/10/22 04:24 [place] Rings Not Reportable 04/10/22 04:24 [place] Cells Not Reportable 04/10/22 04:24 Bite Cells Not Reportable 04/10/22 04:24 Crenated Cell Not Reportable 04/10/22 04:24 Elliptocytes Not Reportable 04/10/22 04:24 Acanthocytes (Spur) Not Reportable 04/10/22 04:24 Rouleaux Not Reportable 04/10/22 04:24 Hemoglobin C Crystals Not Reportable 04/10/22 04:24 Schistocytes Not Reportable 04/10/22 04:24 Malaria parasites Not Reportable 04/10/22 04:24 [place] Bodies Not Reportable 04/10/22 04:24 Hem Pathologist Commnt No 04/10/22 04:24 PT 14.5 Sec. (12.2-14.9) 04/09/22 12:52 INR 1.02 (0.87-1.13) 04/09/22 12:52 D-Dimer 3804.33 ng/mlDDU (0-234) H 04/17/22 05:12 ABG pH 7.318 pH Units (7.350-7.450) L 04/16/22 02:35 ABG pCO2 55.4 mm Hg 04/16/22 02:35 ABG pO2 71.1 mm Hg (80.0-90.0) L 04/16/22 02:35 ABG HCO3 27.7 mmol/L (20.0-26.0) H 04/16/22 02:35 ABG O2 Saturation 94.8 % (95.0-99.0) L 04/16/22 02:35 ABG O2 Content 13.6 (0.0-44) 04/16/22 02:35 ABG Base Excess 0.9 mmol/L (-2.0-3.0) 04/16/22 02:35 ABG Hemoglobin 10.3 gm/dl (12.0-16.0) L 04/16/22 02:35 ABG Carboxyhemoglobin 1.5 % (0.0-5.0) 04/16/22 02:35 ABG Methemoglobin 0.5 % (0.0-1.5) 04/16/22 02:35 VBG pH 7.303 (7.320-7.420) L 04/09/22 12:52 Oxyhemoglobin 92.9 % (95.0-99.0) L 04/16/22 02:35 FiO2 55 % 04/16/22 02:35 Sodium 149 mmol/L (137-145) H 04/17/22 05:12 Potassium 5.3 mmol/L (3.6-5.0) H 04/17/22 05:12 Chloride 109.4 mmol/L (98-107) H 04/17/22 05:12 Carbon Dioxide 28 mmol/L (22-30) 04/17/22 05:12 Anion Gap 17 mmol/L 04/17/22 05:12 BUN 80 mg/dL (7-17) H 04/17/22 05:12 Creatinine 1.5 mg/dL (0.6-1.2) H 04/17/22 05:12 Estimated GFR 41 ml/min 04/17/22 05:12 BUN/Creatinine Ratio 53 % 04/17/22 05:12 Glucose 320 mg/dL (65-100) H 04/17/22 05:12 POC Glucose 201 mg/dL (70-105) H 04/16/22 00:17 Lactic Acid 2.10 mmol/L (0.7-2.0) H* 04/15/22 12:00 Calcium 8.4 mg/dL (8.4-10.2) 04/17/22 05:12 Phosphorus 3.60 mg/dL (2.5-4.5) 04/14/22 07:28 Magnesium 2.90 mg/dL (1.7-2.3) H 04/14/22 07:28 Ferritin 446.2 ng/mL (10.0-200.0) H 04/16/22 04:00 Total Bilirubin 1.00 mg/dL (0.1-1.2) 04/17/22 05:12 Direct Bilirubin 0.5 mg/dL (0-0.2) H 04/16/22 04:00 Indirect Bilirubin 0.4 mg/dL 04/16/22 04:00 AST 171 units/L (5-40) H 04/17/22 05:12 ALT 231 units/L (7-56) H 04/17/22 05:12 Alkaline Phosphatase 105 units/L (35-129) 04/17/22 05:12 Ammonia 20.0 umol/L (25-60) L 04/09/22 12:52 Lactate Dehydrogenase 1467 units/L (91-180) H 04/16/22 04:00 Troponin T < 0.010 ng/mL (0.00-0.029) 04/09/22 12:52 C-Reactive Protein 1.90 mg/dL (0.00-1.30) H 04/16/22 04:00 NT-Pro-B Natriuret Pep 101.1 pg/mL (0-900) 04/09/22 13:45 Total Protein 5.4 g/dL (6.3-8.2) L 04/17/22 05:12 Albumin 3.7 g/dL (3.9-5) L 04/17/22 05:12 Albumin/Globulin Ratio 2.2 % 04/17/22 05:12 Procalcitonin 3.13 ng/mL (<0.15) 04/10/22 11:47 TSH 1.560 mlU/mL (0.270-4.200) 04/09/22 12:52 Free T4 1.33 ng/dL (0.76-1.46) 04/09/22 12:52 Urine Color Yellow (Yellow) 04/09/22 13:24 Urine Turbidity Clear (Clear) 04/09/22 13:24 Urine pH 5.0 (5.0-7.0) 04/09/22 13:24 Ur Specific [place] 1.011 (1.003-1.030) 04/09/22 13:24 Urine Protein 30 mg/dl mg/dL (Negative) 04/09/22 13:24 Urine Glucose (UA) Neg mg/dL (Negative) 04/09/22 13:24 Urine Ketones 20 mg/dL (Negative) 04/09/22 13:24 Urine Blood Neg (Negative) 04/09/22 13:24 Urine Nitrite Neg (Negative) 04/09/22 13:24 Urine Bilirubin Neg (Negative) 04/09/22 13:24 Urine Urobilinogen 4.0 mg/dL (<2.0) 04/09/22 13:24 Ur Leukocyte Esterase Neg (Negative) 04/09/22 13:24 Urine WBC (Auto) 2.0 /HPF (0.0-6.0) 04/09/22 13:24 Urine RBC (Auto) < 1.0 /HPF (0.0-6.0) 04/09/22 13:24 U Epithel Cells (Auto) < 1.0 /HPF (0-13.0) 04/09/22 13:24 Urine Mucus Few /HPF 04/09/22 13:24 Urine Eosinophils None seen (None Seen) 04/10/22 14:50 Urine Total Volume 750 ml 04/11/22 11:23 Urine Creatinine 160.5 mg/dL (0.1-20.0) H 04/11/22 11:23 Ur Creatinine 24 Hour 1.2 (0.8-2.8) 04/11/22 11:23 Height (in) Not Reportable 04/11/22 11:23 Weight (lb) Not Reportable 04/11/22 11:23 Creatinine Clearance Not Reportable 04/11/22 11:23 Protein/Creatinin Ratio 0.77 04/10/22 14:50 Urine Sodium 17 mmol/L 04/10/22 14:50 Urine Total Protein 172 mg/dL (5-11.8) H 04/10/22 14:50 Random Vancomycin 11.9 ug/mL (0-40.0) 04/11/22 03:58 Urine Opiates Screen Presumptive negative 04/09/22 22:58 Urine Methadone Screen Presumptive negative 04/09/22 22:58 Ur Barbiturates Screen Presumptive negative 04/09/22 22:58 Ur Phencyclidine Scrn Presumptive negative 04/09/22 22:58 Ur Amphetamines Screen Presumptive negative 04/09/22 22:58 U Benzodiazepines Scrn Presumptive negative 04/09/22 22:58 Urine Cocaine Screen Presumptive negative 04/09/22 22:58 U Marijuana (THC) Screen Presumptive negative 04/09/22 22:58 Drugs of Abuse Note Disclamer 04/09/22 22:58 Coronavirus (PCR) Positive (Negative) A 04/09/22 13:02 Influenza A (RT-PCR) Negative (Negative) 04/09/22 14:15 Influenza B (RT-PCR) Negative (Negative) 04/09/22 14:15 [place]/IV: Voiding Method Indwelling Catheter Active Medications - Current Medications Current Medications: Generic Name Dose Route Start Last Admin Trade Name Freq PRN Reason Stop Dose Admin Acetaminophen 650 mg 04/09/22 18:11 Acetaminophen 325 Mg Tab PO Q4H PRN Pain MILD(1-3)/Fever >100.5/CARCAMO Dexamethasone 8 mg 04/09/22 19:00 04/16/22 18:22 Dexamethasone 4 Mg/Ml Vial IV 04/18/22 19:01 8 mg Q24H JO ANN Administration Dextrose 0 ml 04/10/22 00:40 Dextrose 50% In Water (25gm) 50 Ml Syringe IV Q30MIN PRN Hypoglycemia Protocol Famotidine 10 mg 04/14/22 10:00 04/16/22 21:45 Famotidine 10 Mg Tab FEEDTUBE 10 mg BID JO ANN Administration Fentanyl 50 mcg 04/15/22 09:25 Fentanyl 100 Mcg/2 Ml Inj IV Q10MIN PRN ANALGESIA Heparin Sodium (Porcine) 5,000 unit 04/17/22 10:00 Heparin 5,000 Unit/1 Ml Vial SUB-Q Q12HR JO ANN NORepinephrine/NS 8 MG-250 ML 8 mg in 250 mls @ 3.75 mls/hr 04/09/22 16:00 04/11/22 12:01 Norepinephrine/Ns 8 Mg-250 Ml (Double Conc) IV 0 mcg/min TITRATE JO ANN 0 mls/hr Titration Protocol 2 MCG/MIN Propofol 1,000 mg in 100 mls @ 2.493 mls/hr 04/14/22 21:00 04/15/22 19:06 Diprivan 10 Mg/Ml IV 0 mcg/kg/min TITR JO ANN 0 mls/hr Titration Protocol 5 MCG/KG/MIN Fentanyl Citrate 2,000 mcg in 100 mls @ 4.155 mls/hr 04/15/22 10:00 04/17/22 05:05 Fentanyl Drip Premix IV 2 mcg/kg/hr TITR JO ANN 8.31 mls/hr Administration Protocol 1 MCG/KG/HR Cefepime HCl 2 gm in 100 mls @ 200 mls/hr 04/16/22 19:00 04/16/22 19:30 Cefepime/Ns 2 Gm/100 Ml IV 200 mls/hr Q12H JO ANN Administration Protocol Insulin Glargine 20 units 04/16/22 22:00 04/16/22 21:45 Insulin Glargine 100 Units/Ml SUB-Q 20 units QHS JO ANN Administration Insulin Human Lispro 0 unit 04/12/22 12:00 04/17/22 06:08 Insulin Lispro 100 Unit/Ml SUB-Q 6 unit Q6HR JO ANN Administration Protocol Ondansetron HCl 4 mg 04/09/22 18:11 Ondansetron 4 Mg/2 Ml Inj IV Q8H PRN Nausea And Vomiting Senna/Docusate Sodium 2 tab 04/15/22 14:00 04/16/22 21:45 Sennosides/Docusate Sodium 8.6/50 Mg Tab FEEDTUBE 2 tab BID JO ANN Administration Sodium Chloride 10 ml 04/09/22 22:00 04/16/22 21:45 Sodium Chloride 0.9% 10 Ml Flush Syringe IV 10 ml BID JO ANN Administration Sodium Chloride 10 ml 04/09/22 18:11 Sodium Chloride 0.9% 10 Ml Flush Syringe IV PRN PRN LINE FLUSH Nutrition/Malnutrition Assess - Dietary Evaluation Nutrition/Malnutrition Findings: Nutrition Notes Start: 04/12/22 10:07 Freq: Status: Active Protocol: Document 04/15/22 15:18 RYDER (Rec: 04/15/22 15:23 RYDER [email or web address]) Nutrition Notes Initial or Follow up Reassessment Current Diagnosis Acute Kidney Injury,Diabetes, Sepsis,Respiratory Failure Other Pertinent Diagnosis AMS, Bilat pneu, COVID-19 (+), Hypotension Current Diet TF - Glucerna 1.2 at 55ml/hr Labs/Tests Na 146 BUN 76 Cr 1.9 BG 214 Pertinent Medications Propofol at 9.972ml/hr ( provides 263 kcal) Height 5 ft 7 in Weight 83.1 kg [place] Body Weight (kg) 61.36 BMI 28.7 Weight change and time frame 98% energy 79% pro Weight Status Overweight Subjective/Other Information Pt remains on vent support; not on pressor support at this time. Renal function being monitored closely. Observed TF infusing at goal rate. Burn Absent Trauma Absent #1 Nutrition Diagnosis Inadequate oral intake As Evidenced by Signs and Symptoms EN support continues Diagnosis Progress(for reassessment Continues documentation) Is patient on ventilator? Yes Is Patient Ambulatory and/or Out of Bed No REE-(Clare-St. Jeor-confined to bed) [phone] Calculation Used for Recommendations [place]-St Jeor Additional Notes Pro needs 1.2-2g/k-166g/ day Fluid needs 1ml/kcal Nutrition Intervention Nutrition Support: Continue Glucerna 1.2 at 55ml/ hr with 100ml water flush q4h. Kcal 1,584 Protein (gm) 79 Carbohydrates (gm) 151 Fat (gm) 79 Fluid (mL) 1,063 Fiber (gm) 21 Goal #1 TF tolerance Goal #2 TF to meet at least 75% energy and pro needs Follow-Up By: 04/22/22 Additional Comments F/U: stable TF, vent status, renal function, propofol
--- NOTE | 2022-04-16 11:12 | Progress Note ---
Assessment and Plan 77 y/o female with multisystem organ failure, COVID positive 04/16/22: Continue PEEP at 10 until FiO2 is at 40-45% and sats >92%. Then can start to wean. Just on Fent now, continue bowel regimen. Tolerating tube feeds. Discussed with [employer] on rounds, neurology was seeing but no further notes, no objection to consulting neuro who is here this week, whoever that is. Patient may need MRI as she has had two negative head CT's and still no real explanation for acute change in mental state. Plan to meet/talk with son tomorrow about next steps and goals of care. Prognosis remains guarded to now poor given no improvement in mental state. 04/15/22: Hold on any further fluids or lasix. If hypotensive, will add pressors. Continue PEEP at 10. Same acceptable parameters as below for sats and PaO2 as pH. Continue pain control and sedation. Added bowel regimen. Prognosis is still guarded to poor. 04/14/22: Hold on any further lasix. Please do not give any fluids, will see if she re equilbrates on her own. Increase PEEP to 8. Will get head CT today. Patient is now in full blown ARDS from COVID. Increased PEEP to 8 and dropped TV to 400. pH of >7.15 and PaO2 >55 are acceptable. Repeat gas at 1600 today. 04/13/22: Renal function continues to improve and urine output improving as well. Given CXR findings will give lasix 40mg IV x1 today. Repeat CXR tomorrow. Off insulin drip and tolerating feeds. Hold on CT head today but if no improvement or worsening clinical state tomorrow, will repeat. Spoke with family on phone yesterday. Guarded prognosis. 04/12/22: Improved mental state. Feed patient today and stop IVF's and attempt to get off of insulin drip. Dropped Peep to 6. Wean FiO2 for sats >88%. PaO2 of 55 and greater are acceptable. Normal EF on echo. EEG showed diffuse slowing but mental state has improved. Will up date family. 04/11/22: Continue supportive measures. Getting EEG right now. Continue to wean Pressors for MAPs >65. if able to get to just one pressor, will place NG vs OG and attempt trickle feeds. Follow up echo. Down to 45%, good PaO2. Continue to wean, however mental state would preclude extubation at this time. Await renal eval but would like to stop bicarb now that acidosis is better, however needs free water but this could be given do OG/NG if end up placing, otherwise would just do D5W. If able to place tube and feed, then can attempt to get off insulin drip. Plan to update family after echo and EEG read. 1. Neuro-concern for seizures. EEG pending. Hold on long acting anti-epileptic therapy. Neurology consulted and has seen. patient is not on any continuous sedation at present 2. CV-Cardiovascular collapse on pressors (3). Could benefit from echo. Attempt volume resuscitation but no improvement. Continue pressors and wean as tolerated for MAPs >65 3. Pulm-intubated, not on sedation. COVID positive but oxygenation is stable. Per documentation, mainly intubated for airway protection given altered level of mental status. Not a candidate for Remdesivir and may not be a candidate for actemra. Continue steroids and low Tidal volume strategy for lung protection with permissive hypercapnea and lower PaO2 (55-60) if needed. 4. Renal- worsening renal function and decrease in urine output. Renal following. May need HD but would likely not tolerate and CRRT or CVVH is not available here. Worsening lactic acidosis as well. 5. GI-hold on feeds given pressor requirement, prophylactic therapy 6. Endo-continue insulin drip for now Overall prognosis is guarded to poor. Will discuss with immediate family today. CCT 31 minutes Subjective Date of service: 04/16/22 Principal diagnosis: ASHLEY Interval history: PaO2 is better this am. Dropped down to 50% and maintaing good sats. Mental status is unchanged. EEG done yesterday but no official read yet. Negative repeat head CT as well. Objective Vital Signs - 12hr 04/15/22 04/16/22 04/16/22 23:50 00:00 00:04 Temperature Pulse Rate 63 63 63 Pulse Rate [ From Monitor] Respiratory 18 18 Rate Blood Pressure 101/58 101/58 101/58 O2 Sat by Pulse 96 97 96 Oximetry 04/16/22 04/16/22 04/16/22 01:00 02:00 03:00 Temperature Pulse Rate 65 64 78 Pulse Rate [ From Monitor] Respiratory 18 18 18 Rate Blood Pressure 103/59 105/60 128/64 O2 Sat by Pulse 97 97 98 Oximetry 04/16/22 04/16/22 04/16/22 03:32 04:00 04:15 Temperature 97.0 F L Pulse Rate 78 97 H Pulse Rate [ From Monitor] Respiratory 15 Rate Blood Pressure 134/72 O2 Sat by Pulse 100 Oximetry 04/16/22 04/16/22 04/16/22 05:00 05:05 06:00 Temperature Pulse Rate 101 H 97 H 104 H Pulse Rate [ From Monitor] Respiratory 12 14 Rate Blood Pressure 138/73 150/74 O2 Sat by Pulse 97 100 Oximetry 04/16/22 04/16/22 04/16/22 06:16 07:00 07:51 Temperature Pulse Rate 104 H 104 H 107 H Pulse Rate [ From Monitor] Respiratory 14 Rate Blood Pressure 148/73 143/72 O2 Sat by Pulse 97 98 99 Oximetry 04/16/22 04/16/22 08:00 09:00 Temperature 97.9 F Pulse Rate 107 H 105 H Pulse Rate [ 106 H From Monitor] Respiratory 20 13 Rate Blood Pressure 143/72 149/79 O2 Sat by Pulse 97 98 Oximetry CBC and BMP: 04/16/22 Unknown 04/16/22 06:00 ABG, PT/INR, D-dimer: ABG ABG pH 7.318 pH Units (7.350-7.450) L 04/16/22 02:35 ABG pCO2 55.4 mm Hg 04/16/22 02:35 ABG pO2 71.1 mm Hg (80.0-90.0) L 04/16/22 02:35 ABG O2 Saturation 94.8 % (95.0-99.0) L 04/16/22 02:35 PT/INR, D-dimer PT 14.5 Sec. (12.2-14.9) 04/09/22 12:52 INR 1.02 (0.87-1.13) 04/09/22 12:52 D-Dimer 3886.80 ng/mlDDU (0-234) H 04/16/22 Unknown Abnormal lab findings: Abnormal Labs 04/09/22 04/09/22 04/09/22 11:59 12:52 12:52 WBC RBC Hgb Hct RDW 15.3 H Lymph % (Auto) 8.4 L Lymph # (Auto) 0.7 L Seg Neutrophils % 84.6 H Seg Neuts % (Manual) Lymphocytes % (Manual) Seg Neutrophils # Seg Neutrophils # Man Lymphocytes # (Manual) D-Dimer ABG pH ABG pO2 ABG HCO3 ABG O2 Saturation ABG Base Excess ABG Hemoglobin VBG pH Oxyhemoglobin Sodium Potassium Chloride 112.7 H Carbon Dioxide 18 L BUN Creatinine 2.0 H Glucose 204 H POC Glucose 203 H Lactic Acid Calcium Phosphorus Magnesium Ferritin Total Bilirubin 1.30 H Direct Bilirubin AST 47 H ALT Ammonia Lactate Dehydrogenase C-Reactive Protein Total Protein Albumin Urine Creatinine Urine Total Protein Coronavirus (PCR) 04/09/22 04/09/22 04/09/22 12:52 12:52 13:02 WBC RBC Hgb Hct RDW Lymph % (Auto) Lymph # (Auto) Seg Neutrophils % Seg Neuts % (Manual) Lymphocytes % (Manual) Seg Neutrophils # Seg Neutrophils # Man Lymphocytes # (Manual) D-Dimer ABG pH ABG pO2 ABG HCO3 ABG O2 Saturation ABG Base Excess ABG Hemoglobin VBG pH 7.303 L Oxyhemoglobin Sodium Potassium Chloride Carbon Dioxide BUN Creatinine Glucose POC Glucose Lactic Acid Calcium Phosphorus Magnesium Ferritin Total Bilirubin Direct Bilirubin AST ALT Ammonia 20.0 L Lactate Dehydrogenase C-Reactive Protein Total Protein Albumin Urine Creatinine Urine Total Protein Coronavirus (PCR) Positive A 04/09/22 04/09/22 04/09/22 15:49 22:15 22:58 WBC RBC Hgb Hct RDW Lymph % (Auto) Lymph # (Auto) Seg Neutrophils % Seg Neuts % (Manual) Lymphocytes % (Manual) Seg Neutrophils # Seg Neutrophils # Man Lymphocytes # (Manual) D-Dimer ABG pH 7.097 L* ABG pO2 188.8 H ABG HCO3 7.4 L ABG O2 Saturation 99.1 H ABG Base Excess -20.7 L ABG Hemoglobin VBG pH Oxyhemoglobin Sodium Potassium Chloride 108.8 H Carbon Dioxide 10 L D BUN 20 H Creatinine 2.6 H Glucose 465 H POC Glucose Lactic Acid 2.70 H* Calcium 7.4 L Phosphorus Magnesium Ferritin Total Bilirubin Direct Bilirubin AST ALT Ammonia Lactate Dehydrogenase C-Reactive Protein Total Protein Albumin Urine Creatinine Urine Total Protein Coronavirus (PCR) 04/09/22 04/09/22 04/10/22 23:19 Unknown 00:03 WBC RBC Hgb Hct RDW Lymph % (Auto) Lymph # (Auto) Seg Neutrophils % Seg Neuts % (Manual) Lymphocytes % (Manual) Seg Neutrophils # Seg Neutrophils # Man Lymphocytes # (Manual) D-Dimer ABG pH ABG pO2 ABG HCO3 ABG O2 Saturation ABG Base Excess ABG Hemoglobin VBG pH Oxyhemoglobin Sodium Potassium Chloride Carbon Dioxide BUN Creatinine Glucose POC Glucose 356 H Lactic Acid 7.50 H* 6.10 H* Calcium Phosphorus Magnesium Ferritin Total Bilirubin Direct Bilirubin AST ALT Ammonia Lactate Dehydrogenase C-Reactive Protein Total Protein Albumin Urine Creatinine Urine Total Protein Coronavirus (PCR) 04/10/22 04/10/22 04/10/22 02:16 03:03 04:00 WBC RBC Hgb Hct RDW Lymph % (Auto) Lymph # (Auto) Seg Neutrophils % Seg Neuts % (Manual) Lymphocytes % (Manual) Seg Neutrophils # Seg Neutrophils # Man Lymphocytes # (Manual) D-Dimer ABG pH ABG pO2 ABG HCO3 ABG O2 Saturation ABG Base Excess ABG Hemoglobin VBG pH Oxyhemoglobin Sodium Potassium Chloride Carbon Dioxide BUN Creatinine Glucose POC Glucose 317 H 325 H 308 H Lactic Acid Calcium Phosphorus Magnesium Ferritin Total Bilirubin Direct Bilirubin AST ALT Ammonia Lactate Dehydrogenase C-Reactive Protein Total Protein Albumin Urine Creatinine Urine Total Protein Coronavirus (PCR) 04/10/22 04/10/22 04/10/22 04:24 04:24 04:24 WBC 16.4 H RBC Hgb Hct RDW 16.2 H Lymph % (Auto) Lymph # (Auto) Seg Neutrophils % Seg Neuts % (Manual) 94.0 H Lymphocytes % (Manual) 3.0 L Seg Neutrophils # Seg Neutrophils # Man 15.4 H Lymphocytes # (Manual) 0.5 L D-Dimer ABG pH ABG pO2 ABG HCO3 ABG O2 Saturation ABG Base Excess ABG Hemoglobin VBG pH Oxyhemoglobin Sodium Potassium 2.9 L* D Chloride 116.1 H Carbon Dioxide 11 L BUN 19 H Creatinine 2.5 H Glucose 376 H POC Glucose Lactic Acid Calcium 6.5 L Phosphorus 1.40 L Magnesium 1.60 L Ferritin Total Bilirubin Direct Bilirubin AST 107 H ALT 64 H Ammonia Lactate Dehydrogenase C-Reactive Protein Total Protein 5.5 L Albumin 2.8 L Urine Creatinine Urine Total Protein Coronavirus (PCR) 04/10/22 04/10/22 04/10/22 04:25 05:17 06:00 WBC RBC Hgb Hct RDW Lymph % (Auto) Lymph # (Auto) Seg Neutrophils % Seg Neuts % (Manual) Lymphocytes % (Manual) Seg Neutrophils # Seg Neutrophils # Man Lymphocytes # (Manual) D-Dimer ABG pH 7.095 L* ABG pO2 112.3 H ABG HCO3 8.7 L ABG O2 Saturation ABG Base Excess -19.7 L ABG Hemoglobin VBG pH Oxyhemoglobin Sodium Potassium Chloride Carbon Dioxide BUN Creatinine Glucose POC Glucose 343 H 278 H Lactic Acid Calcium Phosphorus Magnesium Ferritin Total Bilirubin Direct Bilirubin AST ALT Ammonia Lactate Dehydrogenase C-Reactive Protein Total Protein Albumin Urine Creatinine Urine Total Protein Coronavirus (PCR) 04/10/22 04/10/22 04/10/22 06:53 07:54 08:58 WBC RBC Hgb Hct RDW Lymph % (Auto) Lymph # (Auto) Seg Neutrophils % Seg Neuts % (Manual) Lymphocytes % (Manual) Seg Neutrophils # Seg Neutrophils # Man Lymphocytes # (Manual) D-Dimer ABG pH ABG pO2 ABG HCO3 ABG O2 Saturation ABG Base Excess ABG Hemoglobin VBG pH Oxyhemoglobin Sodium Potassium Chloride Carbon Dioxide BUN Creatinine Glucose POC Glucose 262 H 245 H 215 H Lactic Acid Calcium Phosphorus Magnesium Ferritin Total Bilirubin Direct Bilirubin AST ALT Ammonia Lactate Dehydrogenase C-Reactive Protein Total Protein Albumin Urine Creatinine Urine Total Protein Coronavirus (PCR) 04/10/22 04/10/22 04/10/22 10:12 10:51 11:47 WBC RBC Hgb Hct RDW Lymph % (Auto) Lymph # (Auto) Seg Neutrophils % Seg Neuts % (Manual) Lymphocytes % (Manual) Seg Neutrophils # Seg Neutrophils # Man Lymphocytes # (Manual) D-Dimer ABG pH ABG pO2 ABG HCO3 ABG O2 Saturation ABG Base Excess ABG Hemoglobin VBG pH Oxyhemoglobin Sodium 148 H Potassium 3.4 L Chloride 116.7 H Carbon Dioxide 15 L BUN 22 H Creatinine 2.7 H Glucose 190 H POC Glucose 206 H 176 H Lactic Acid Calcium 6.9 L Phosphorus Magnesium Ferritin Total Bilirubin Direct Bilirubin AST ALT Ammonia Lactate Dehydrogenase C-Reactive Protein Total Protein Albumin Urine Creatinine Urine Total Protein Coronavirus (PCR) 04/10/22 04/10/22 04/10/22 11:47 11:47 12:02 WBC RBC Hgb Hct RDW Lymph % (Auto) Lymph # (Auto) Seg Neutrophils % Seg Neuts % (Manual) Lymphocytes % (Manual) Seg Neutrophils # Seg Neutrophils # Man Lymphocytes # (Manual) D-Dimer ABG pH ABG pO2 ABG HCO3 ABG O2 Saturation ABG Base Excess ABG Hemoglobin VBG pH Oxyhemoglobin Sodium Potassium Chloride Carbon Dioxide BUN Creatinine Glucose POC Glucose 178 H Lactic Acid Calcium Phosphorus Magnesium Ferritin 1218.0 H Total Bilirubin Direct Bilirubin AST ALT Ammonia Lactate Dehydrogenase 482 H C-Reactive Protein 11.30 H Total Protein Albumin Urine Creatinine Urine Total Protein Coronavirus (PCR) 04/10/22 04/10/22 04/10/22 13:13 13:58 14:50 WBC RBC Hgb Hct RDW Lymph % (Auto) Lymph # (Auto) Seg Neutrophils % Seg Neuts % (Manual) Lymphocytes % (Manual) Seg Neutrophils # Seg Neutrophils # Man Lymphocytes # (Manual) D-Dimer ABG pH ABG pO2 ABG HCO3 ABG O2 Saturation ABG Base Excess ABG Hemoglobin VBG pH Oxyhemoglobin Sodium Potassium Chloride Carbon Dioxide BUN Creatinine Glucose POC Glucose 160 H 150 H Lactic Acid Calcium Phosphorus Magnesium Ferritin Total Bilirubin Direct Bilirubin AST ALT Ammonia Lactate Dehydrogenase C-Reactive Protein Total Protein Albumin Urine Creatinine 224.2 H Urine Total Protein 172 H Coronavirus (PCR) 04/10/22 04/10/22 04/10/22 15:24 16:38 16:56 WBC RBC Hgb Hct RDW Lymph % (Auto) Lymph # (Auto) Seg Neutrophils % Seg Neuts % (Manual) Lymphocytes % (Manual) Seg Neutrophils # Seg Neutrophils # Man Lymphocytes # (Manual) D-Dimer ABG pH ABG pO2 ABG HCO3 ABG O2 Saturation ABG Base Excess ABG Hemoglobin VBG pH Oxyhemoglobin Sodium Potassium Chloride Carbon Dioxide BUN Creatinine Glucose POC Glucose 140 H 154 H 149 H Lactic Acid Calcium Phosphorus Magnesium Ferritin Total Bilirubin Direct Bilirubin AST ALT Ammonia Lactate Dehydrogenase C-Reactive Protein Total Protein Albumin Urine Creatinine Urine Total Protein Coronavirus (PCR) 04/10/22 04/10/22 04/10/22 18:21 19:21 20:02 WBC RBC Hgb Hct RDW Lymph % (Auto) Lymph # (Auto) Seg Neutrophils % Seg Neuts % (Manual) Lymphocytes % (Manual) Seg Neutrophils # Seg Neutrophils # Man Lymphocytes # (Manual) D-Dimer ABG pH ABG pO2 ABG HCO3 ABG O2 Saturation ABG Base Excess ABG Hemoglobin VBG pH Oxyhemoglobin Sodium Potassium Chloride Carbon Dioxide BUN Creatinine Glucose POC Glucose 141 H 126 H 139 H Lactic Acid Calcium Phosphorus Magnesium Ferritin Total Bilirubin Direct Bilirubin AST ALT Ammonia Lactate Dehydrogenase C-Reactive Protein Total Protein Albumin Urine Creatinine Urine Total Protein Coronavirus (PCR) 04/10/22 04/10/22 04/10/22 21:04 21:58 22:20 WBC RBC Hgb Hct RDW Lymph % (Auto) Lymph # (Auto) Seg Neutrophils % Seg Neuts % (Manual) Lymphocytes % (Manual) Seg Neutrophils # Seg Neutrophils # Man Lymphocytes # (Manual) D-Dimer ABG pH ABG pO2 ABG HCO3 ABG O2 Saturation ABG Base Excess ABG Hemoglobin VBG pH Oxyhemoglobin Sodium Potassium Chloride 114.5 H Carbon Dioxide 17 L BUN 24 H Creatinine 2.5 H Glucose 165 H POC Glucose 144 H 161 H Lactic Acid Calcium 6.5 L Phosphorus Magnesium Ferritin Total Bilirubin Direct Bilirubin AST ALT Ammonia Lactate Dehydrogenase C-Reactive Protein Total Protein Albumin Urine Creatinine Urine Total Protein Coronavirus (PCR) 04/10/22 04/11/22 04/11/22 23:02 00:08 01:05 WBC RBC Hgb Hct RDW Lymph % (Auto) Lymph # (Auto) Seg Neutrophils % Seg Neuts % (Manual) Lymphocytes % (Manual) Seg Neutrophils # Seg Neutrophils # Man Lymphocytes # (Manual) D-Dimer ABG pH ABG pO2 ABG HCO3 ABG O2 Saturation ABG Base Excess ABG Hemoglobin VBG pH Oxyhemoglobin Sodium Potassium Chloride Carbon Dioxide BUN Creatinine Glucose POC Glucose 160 H 148 H 156 H Lactic Acid Calcium Phosphorus Magnesium Ferritin Total Bilirubin Direct Bilirubin AST ALT Ammonia Lactate Dehydrogenase C-Reactive Protein Total Protein Albumin Urine Creatinine Urine Total Protein Coronavirus (PCR) 04/11/22 04/11/22 04/11/22 01:30 02:05 03:04 WBC RBC Hgb Hct RDW Lymph % (Auto) Lymph # (Auto) Seg Neutrophils % Seg Neuts % (Manual) Lymphocytes % (Manual) Seg Neutrophils # Seg Neutrophils # Man Lymphocytes # (Manual) D-Dimer ABG pH ABG pO2 75.1 L ABG HCO3 17.2 L ABG O2 Saturation ABG Base Excess -5.8 L ABG Hemoglobin 11.5 L VBG pH Oxyhemoglobin Sodium Potassium Chloride Carbon Dioxide BUN Creatinine Glucose POC Glucose 150 H 168 H Lactic Acid Calcium Phosphorus Magnesium Ferritin Total Bilirubin Direct Bilirubin AST ALT Ammonia Lactate Dehydrogenase C-Reactive Protein Total Protein Albumin Urine Creatinine Urine Total Protein Coronavirus (PCR) 04/11/22 04/11/22 04/11/22 03:58 03:58 04:05 WBC 12.2 H RBC Hgb Hct RDW 15.7 H Lymph % (Auto) Lymph # (Auto) Seg Neutrophils % Seg Neuts % (Manual) Lymphocytes % (Manual) Seg Neutrophils # Seg Neutrophils # Man Lymphocytes # (Manual) D-Dimer ABG pH ABG pO2 ABG HCO3 ABG O2 Saturation ABG Base Excess ABG Hemoglobin VBG pH Oxyhemoglobin Sodium 147 H Potassium Chloride 114.2 H Carbon Dioxide 19 L BUN 26 H Creatinine 2.5 H Glucose 154 H POC Glucose 151 H Lactic Acid Calcium 6.8 L Phosphorus Magnesium Ferritin Total Bilirubin Direct Bilirubin AST 106 H ALT 60 H Ammonia Lactate Dehydrogenase C-Reactive Protein Total Protein 5.6 L Albumin 2.7 L Urine Creatinine Urine Total Protein Coronavirus (PCR) 04/11/22 04/11/22 04/11/22 05:14 06:19 08:23 WBC RBC Hgb Hct RDW Lymph % (Auto) Lymph # (Auto) Seg Neutrophils % Seg Neuts % (Manual) Lymphocytes % (Manual) Seg Neutrophils # Seg Neutrophils # Man Lymphocytes # (Manual) D-Dimer ABG pH ABG pO2 ABG HCO3 ABG O2 Saturation ABG Base Excess ABG Hemoglobin VBG pH Oxyhemoglobin Sodium Potassium Chloride Carbon Dioxide BUN Creatinine Glucose POC Glucose 134 H 144 H 143 H Lactic Acid Calcium Phosphorus Magnesium Ferritin Total Bilirubin Direct Bilirubin AST ALT Ammonia Lactate Dehydrogenase C-Reactive Protein Total Protein Albumin Urine Creatinine Urine Total Protein Coronavirus (PCR) 04/11/22 04/11/22 04/11/22 09:28 10:06 11:23 WBC RBC Hgb Hct RDW Lymph % (Auto) Lymph # (Auto) Seg Neutrophils % Seg Neuts % (Manual) Lymphocytes % (Manual) Seg Neutrophils # Seg Neutrophils # Man Lymphocytes # (Manual) D-Dimer ABG pH ABG pO2 ABG HCO3 ABG O2 Saturation ABG Base Excess ABG Hemoglobin VBG pH Oxyhemoglobin Sodium Potassium Chloride Carbon Dioxide BUN Creatinine Glucose POC Glucose 138 H Lactic Acid Calcium Phosphorus Magnesium Ferritin Total Bilirubin Direct Bilirubin AST ALT Ammonia Lactate Dehydrogenase C-Reactive Protein Total Protein Albumin Urine Creatinine 161.8 H 160.5 H Urine Total Protein Coronavirus (PCR) 04/11/22 04/11/22 04/12/22 15:59 23:58 00:01 WBC 16.2 H RBC Hgb Hct RDW 15.8 H Lymph % (Auto) 5.7 L Lymph # (Auto) 0.9 L Seg Neutrophils % 89.6 H Seg Neuts % (Manual) Lymphocytes % (Manual) Seg Neutrophils # 14.6 H Seg Neutrophils # Man Lymphocytes # (Manual) D-Dimer ABG pH ABG pO2 ABG HCO3 ABG O2 Saturation ABG Base Excess ABG Hemoglobin VBG pH Oxyhemoglobin Sodium Potassium Chloride Carbon Dioxide BUN Creatinine Glucose POC Glucose 166 H 150 H Lactic Acid Calcium Phosphorus Magnesium Ferritin Total Bilirubin Direct Bilirubin AST ALT Ammonia Lactate Dehydrogenase C-Reactive Protein Total Protein Albumin Urine Creatinine Urine Total Protein Coronavirus (PCR) 04/12/22 04/12/22 04/12/22 03:20 04:00 04:00 WBC RBC Hgb Hct RDW Lymph % (Auto) Lymph # (Auto) Seg Neutrophils % Seg Neuts % (Manual) Lymphocytes % (Manual) Seg Neutrophils # Seg Neutrophils # Man Lymphocytes # (Manual) D-Dimer 1874.86 H ABG pH 7.513 H ABG pO2 61.7 L ABG HCO3 ABG O2 Saturation 94.2 L ABG Base Excess ABG Hemoglobin 11.5 L VBG pH Oxyhemoglobin 92.6 L Sodium Potassium Chloride Carbon Dioxide BUN Creatinine Glucose POC Glucose Lactic Acid Calcium Phosphorus Magnesium Ferritin 890.0 H Total Bilirubin Direct Bilirubin AST ALT Ammonia Lactate Dehydrogenase C-Reactive Protein Total Protein Albumin Urine Creatinine Urine Total Protein Coronavirus (PCR) 04/12/22 04/12/22 04/12/22 04:00 04:20 04:59 WBC RBC Hgb Hct RDW Lymph % (Auto) Lymph # (Auto) Seg Neutrophils % Seg Neuts % (Manual) Lymphocytes % (Manual) Seg Neutrophils # Seg Neutrophils # Man Lymphocytes # (Manual) D-Dimer ABG pH ABG pO2 ABG HCO3 ABG O2 Saturation ABG Base Excess ABG Hemoglobin VBG pH Oxyhemoglobin Sodium 146 H Potassium Chloride 108.0 H Carbon Dioxide BUN 38 H Creatinine 2.3 H Glucose 173 H POC Glucose 146 H Lactic Acid Calcium 6.7 L Phosphorus Magnesium Ferritin Total Bilirubin Direct Bilirubin AST ALT Ammonia Lactate Dehydrogenase 763 H C-Reactive Protein 14.10 H Total Protein Albumin Urine Creatinine Urine Total Protein Coronavirus (PCR) 04/12/22 04/12/22 04/12/22 06:05 10:15 11:52 WBC RBC Hgb Hct RDW Lymph % (Auto) Lymph # (Auto) Seg Neutrophils % Seg Neuts % (Manual) Lymphocytes % (Manual) Seg Neutrophils # Seg Neutrophils # Man Lymphocytes # (Manual) D-Dimer ABG pH ABG pO2 ABG HCO3 ABG O2 Saturation ABG Base Excess ABG Hemoglobin VBG pH Oxyhemoglobin Sodium Potassium Chloride Carbon Dioxide BUN Creatinine Glucose POC Glucose 190 H 122 H 125 H Lactic Acid Calcium Phosphorus Magnesium Ferritin Total Bilirubin Direct Bilirubin AST ALT Ammonia Lactate Dehydrogenase C-Reactive Protein Total Protein Albumin Urine Creatinine Urine Total Protein Coronavirus (PCR) 04/12/22 04/13/22 04/13/22 13:18 00:14 03:41 WBC RBC Hgb Hct RDW Lymph % (Auto) Lymph # (Auto) Seg Neutrophils % Seg Neuts % (Manual) Lymphocytes % (Manual) Seg Neutrophils # Seg Neutrophils # Man Lymphocytes # (Manual) D-Dimer ABG pH 7.487 H ABG pO2 62.1 L ABG HCO3 ABG O2 Saturation 93.2 L ABG Base Excess ABG Hemoglobin 11.9 L VBG pH Oxyhemoglobin 91.5 L Sodium Potassium Chloride Carbon Dioxide BUN 38 H Creatinine 2.1 H Glucose 144 H POC Glucose 208 H Lactic Acid Calcium 7.1 L Phosphorus Magnesium Ferritin Total Bilirubin Direct Bilirubin AST ALT Ammonia Lactate Dehydrogenase C-Reactive Protein Total Protein Albumin Urine Creatinine Urine Total Protein Coronavirus (PCR) 04/13/22 04/13/22 04/14/22 04:31 04:31 03:54 WBC 13.9 H RBC Hgb Hct RDW 15.7 H Lymph % (Auto) Lymph # (Auto) Seg Neutrophils % Seg Neuts % (Manual) Lymphocytes % (Manual) Seg Neutrophils # Seg Neutrophils # Man Lymphocytes # (Manual) D-Dimer ABG pH 7.487 H ABG pO2 57.8 L ABG HCO3 ABG O2 Saturation 93.9 L ABG Base Excess ABG Hemoglobin 10.0 L VBG pH Oxyhemoglobin 92.3 L Sodium Potassium Chloride Carbon Dioxide BUN 42 H Creatinine 1.9 H Glucose 204 H POC Glucose Lactic Acid Calcium 7.4 L Phosphorus Magnesium Ferritin Total Bilirubin Direct Bilirubin AST ALT Ammonia Lactate Dehydrogenase C-Reactive Protein Total Protein Albumin Urine Creatinine Urine Total Protein Coronavirus (PCR) 04/14/22 04/14/22 04/14/22 07:28 07:28 07:28 WBC RBC Hgb Hct RDW Lymph % (Auto) Lymph # (Auto) Seg Neutrophils % Seg Neuts % (Manual) Lymphocytes % (Manual) Seg Neutrophils # Seg Neutrophils # Man Lymphocytes # (Manual) D-Dimer 5586.76 H ABG pH ABG pO2 ABG HCO3 ABG O2 Saturation ABG Base Excess ABG Hemoglobin VBG pH Oxyhemoglobin Sodium Potassium Chloride Carbon Dioxide BUN Creatinine Glucose POC Glucose Lactic Acid Calcium Phosphorus Magnesium Ferritin 454.7 H Total Bilirubin Direct Bilirubin AST ALT Ammonia Lactate Dehydrogenase 1345 H C-Reactive Protein 4.80 H Total Protein Albumin Urine Creatinine Urine Total Protein Coronavirus (PCR) 04/14/22 04/14/22 04/14/22 07:28 07:28 09:26 WBC 18.6 H RBC 3.59 L Hgb Hct RDW 15.6 H Lymph % (Auto) Lymph # (Auto) Seg Neutrophils % Seg Neuts % (Manual) Lymphocytes % (Manual) Seg Neutrophils # Seg Neutrophils # Man Lymphocytes # (Manual) D-Dimer ABG pH ABG pO2 ABG HCO3 ABG O2 Saturation ABG Base Excess ABG Hemoglobin VBG pH Oxyhemoglobin Sodium 149 H Potassium Chloride 110.3 H Carbon Dioxide BUN 57 H Creatinine 2.3 H Glucose 205 H POC Glucose Lactic Acid Calcium Phosphorus Magnesium 2.90 H Ferritin Total Bilirubin Direct Bilirubin AST ALT Ammonia Lactate Dehydrogenase C-Reactive Protein Total Protein Albumin Urine Creatinine Urine Total Protein Coronavirus (PCR) 04/14/22 04/14/22 04/14/22 11:52 15:41 17:18 WBC RBC Hgb Hct RDW Lymph % (Auto) Lymph # (Auto) Seg Neutrophils % Seg Neuts % (Manual) Lymphocytes % (Manual) Seg Neutrophils # Seg Neutrophils # Man Lymphocytes # (Manual) D-Dimer ABG pH 7.506 H ABG pO2 51.0 L ABG HCO3 ABG O2 Saturation 87.3 L ABG Base Excess ABG Hemoglobin 10.6 L VBG pH Oxyhemoglobin 85.4 L Sodium Potassium Chloride Carbon Dioxide BUN Creatinine Glucose POC Glucose 173 H 187 H Lactic Acid Calcium Phosphorus Magnesium Ferritin Total Bilirubin Direct Bilirubin AST ALT Ammonia Lactate Dehydrogenase C-Reactive Protein Total Protein Albumin Urine Creatinine Urine Total Protein Coronavirus (PCR) 04/15/22 04/15/22 04/15/22 00:03 03:43 05:47 WBC RBC Hgb Hct RDW Lymph % (Auto) Lymph # (Auto) Seg Neutrophils % Seg Neuts % (Manual) Lymphocytes % (Manual) Seg Neutrophils # Seg Neutrophils # Man Lymphocytes # (Manual) D-Dimer ABG pH 7.477 H ABG pO2 59.1 L ABG HCO3 ABG O2 Saturation 90.5 L ABG Base Excess ABG Hemoglobin 9.5 L VBG pH Oxyhemoglobin 88.7 L Sodium Potassium Chloride Carbon Dioxide BUN Creatinine Glucose POC Glucose 246 H 217 H Lactic Acid Calcium Phosphorus Magnesium Ferritin Total Bilirubin Direct Bilirubin AST ALT Ammonia Lactate Dehydrogenase C-Reactive Protein Total Protein Albumin Urine Creatinine Urine Total Protein Coronavirus (PCR) 04/15/22 04/15/22 04/15/22 09:40 10:00 12:00 WBC 19.3 H RBC 3.18 L Hgb 9.3 L Hct 27.7 L RDW 15.8 H Lymph % (Auto) Lymph # (Auto) Seg Neutrophils % Seg Neuts % (Manual) Lymphocytes % (Manual) Seg Neutrophils # Seg Neutrophils # Man Lymphocytes # (Manual) D-Dimer ABG pH ABG pO2 ABG HCO3 ABG O2 Saturation ABG Base Excess ABG Hemoglobin VBG pH Oxyhemoglobin Sodium 146 H Potassium Chloride 107.9 H Carbon Dioxide BUN 76 H Creatinine 1.9 H Glucose 214 H POC Glucose Lactic Acid 2.10 H* Calcium 7.7 L Phosphorus Magnesium Ferritin Total Bilirubin Direct Bilirubin AST ALT Ammonia Lactate Dehydrogenase C-Reactive Protein Total Protein Albumin Urine Creatinine Urine Total Protein Coronavirus (PCR) 04/15/22 04/15/22 04/15/22 12:21 17:51 21:39 WBC RBC Hgb Hct RDW Lymph % (Auto) Lymph # (Auto) Seg Neutrophils % Seg Neuts % (Manual) Lymphocytes % (Manual) Seg Neutrophils # Seg Neutrophils # Man Lymphocytes # (Manual) D-Dimer ABG pH ABG pO2 ABG HCO3 ABG O2 Saturation ABG Base Excess ABG Hemoglobin VBG pH Oxyhemoglobin Sodium Potassium Chloride Carbon Dioxide BUN Creatinine Glucose POC Glucose 236 H 255 H 223 H Lactic Acid Calcium Phosphorus Magnesium Ferritin Total Bilirubin Direct Bilirubin AST ALT Ammonia Lactate Dehydrogenase C-Reactive Protein Total Protein Albumin Urine Creatinine Urine Total Protein Coronavirus (PCR) 04/16/22 04/16/22 04/16/22 00:17 02:35 04:00 WBC RBC Hgb Hct RDW Lymph % (Auto) Lymph # (Auto) Seg Neutrophils % Seg Neuts % (Manual) Lymphocytes % (Manual) Seg Neutrophils # Seg Neutrophils # Man Lymphocytes # (Manual) D-Dimer ABG pH 7.318 L ABG pO2 71.1 L ABG HCO3 27.7 H ABG O2 Saturation 94.8 L ABG Base Excess ABG Hemoglobin 10.3 L VBG pH Oxyhemoglobin 92.9 L Sodium Potassium Chloride Carbon Dioxide BUN Creatinine Glucose POC Glucose 201 H Lactic Acid Calcium Phosphorus Magnesium Ferritin 446.2 H Total Bilirubin Direct Bilirubin AST ALT Ammonia Lactate Dehydrogenase C-Reactive Protein Total Protein Albumin Urine Creatinine Urine Total Protein Coronavirus (PCR) 04/16/22 04/16/22 04/16/22 04:00 06:00 Unknown WBC RBC Hgb Hct RDW Lymph % (Auto) Lymph # (Auto) Seg Neutrophils % Seg Neuts % (Manual) Lymphocytes % (Manual) Seg Neutrophils # Seg Neutrophils # Man Lymphocytes # (Manual) D-Dimer 3886.80 H ABG pH ABG pO2 ABG HCO3 ABG O2 Saturation ABG Base Excess ABG Hemoglobin VBG pH Oxyhemoglobin Sodium 148 H Potassium Chloride 109.9 H Carbon Dioxide BUN 84 H Creatinine 1.7 H Glucose 276 H POC Glucose Lactic Acid Calcium Phosphorus Magnesium Ferritin Total Bilirubin Direct Bilirubin 0.5 H AST 69 H ALT 120 H Ammonia Lactate Dehydrogenase 1467 H C-Reactive Protein 1.90 H Total Protein 5.9 L Albumin 3.5 L Urine Creatinine Urine Total Protein Coronavirus (PCR) 04/16/22 Unknown WBC 25.2 H RBC Hgb Hct RDW 15.8 H Lymph % (Auto) Lymph # (Auto) Seg Neutrophils % Seg Neuts % (Manual) Lymphocytes % (Manual) Seg Neutrophils # Seg Neutrophils # Man Lymphocytes # (Manual) D-Dimer ABG pH ABG pO2 ABG HCO3 ABG O2 Saturation ABG Base Excess ABG Hemoglobin VBG pH Oxyhemoglobin Sodium Potassium Chloride Carbon Dioxide BUN Creatinine Glucose POC Glucose Lactic Acid Calcium Phosphorus Magnesium Ferritin Total Bilirubin Direct Bilirubin AST ALT Ammonia Lactate Dehydrogenase C-Reactive Protein Total Protein Albumin Urine Creatinine Urine Total Protein Coronavirus (PCR)
--- NOTE | 2022-04-16 11:22 | Consultation ---
History of Present Illness Consult date: 04/16/22 Reason for Consult: Altered mentation,Hypoxemia,multiorgan failure,COVID-19 History of present illness: This is a 77-year-old female with DM and ovarian cancer in remission s/p partial hysterectomy and oophorectomy presented to emergency department on 04/09 with altered mental status, weakness, shortness of breath over the past week with worsening symptoms on 04/09. Of note patient was not vaccinated for COVID-19. In the emergency department patient was very hypoxic on arrival and was placed on 100% nonrebreather, patient was tachypneic and hypotensive and initially was alert and oriented however became lethargic and was intubated for airway protection. Work-up in the emergency department revealed leukocytosis, acute kidney injury, hypokalemia, hyperglycemia. Patient was admitted to the hospitalist service with consults to [facility] with septic shock, COVID-19 PUI, hypokalemia, acute kidney injury, acute metabolic encephalopathy, bilateral pneumonia, lactic acidosis and acute hypoxic respiratory failure. Hospital course to date: 04/10: Patient noted to have myoclonic jerking this morning and was given 2 mg of Ativan which aborted the jerking. Neurology was consulted and MRI and EEG were ordered. Patient admits to [facility] for MRI at this time. Patient is hypotensive and currently on Levophed, vasopressin and dobutamine. Nephrology consulted for renal failure. Remains on insulin drip and was placed on a bicarbonate drip this morning. Infectious disease consulted who added vancomycin and ordered follow-up labs. Dr. Craig had a conversation with family about prognosis and given multisystem organ failure. We will continue supportive care. 04/11/22-patient seen at bedside. T/V orally intubated. No purposeful response on assessment. make periodic jerking movement. EEG done today-will f/u with result. BICarb d/c -acidosis has improved-started on D5 11/28 NS. Reviewed specialist note and reces-renal US-no acute finding. Continue Pressors for MAPs >65. Wean as tolerated. Bicarb-d/c and start D5W. 04/12: Patient is following commands, nutrition consulted for tube feedings, PEEP decreased with possible PSV in the a.m., insulin drip discontinued and SSI/basal dose insulin started. [facility] will update son. 04/13: Renal function continues to improve, intermittently following commands, CC M ordered 1 x 40 mg of Lasix repeat CXR in the a.m. Tolerating tube feedings. 04/14: PEEP increased per CCM, will not repeat Lasix again due to increasing renal functions. Ordered CT head. Overnight patient was tachypneic and agitated and Precedex drip was started. We will start Seroquel and wean Precedex as tolerated. 04/15: IVF started by nephro yesterday for hypernatremia, awaiting BMP for today to result. Overnight patient was started on propofol and has propofol and precedex infusing. Fentanyl gtt ordered and precedex gtt discontinued. Neurology consulted today for further assessment of function and lack of response she had CT brain done on 04/14 is unremarkable she is on fentanyl and propofol until today Now on 2 mc fentanyl at time of evaluation EEG today showed back ground 4-6 hz with increase activity with verbal/physical activation , no clear epileptiform discharges is noted WBCs12.2--- today 25.2 she is on decadron Na#148 Crat#84/1.7 ferritin #1218--today 446.2 CRP#11.3-- today 1.9 Past History Past Medical History: diabetes, other (Ovarian cancer) Past Surgical History: Other (unknown) Social history: no significant social history Family history: no significant family history Medications and Allergies Allergies Allergy/AdvReac Type Severity Reaction Status Date / Time No Known Allergies Allergy Verified 04/09/22 13:44 Active Meds: Active Medications Acetaminophen (Acetaminophen 325 Mg Tab) 650 mg PO Q4H PRN PRN Reason: Pain MILD(1-3)/Fever >100.5/[place] Dexamethasone (Dexamethasone 4 Mg/Ml Vial) 8 mg IV Q24H [facility] Stop: 04/18/22 19:01 Last Admin: 04/15/22 18:41 Dose: 8 mg Dextrose (Dextrose 50% In Water (25gm) 50 Ml Syringe) 0 ml IV Q30MIN PRN; Protocol PRN Reason: Hypoglycemia Enoxaparin Sodium (Enoxaparin 30 Mg/0.3 Ml Inj) 30 mg SUB-Q QDAY [facility] Last Admin: 04/16/22 09:36 Dose: 30 mg Famotidine (Famotidine 10 Mg Tab) 10 mg FEEDTUBE BID [facility] Last Admin: 04/16/22 09:36 Dose: 10 mg Fentanyl (Fentanyl 100 Mcg/2 Ml Inj) 50 mcg IV Q10MIN PRN PRN Reason: ANAL[place] NORepinephrine/NS 8 MG-250 ML (Norepinephrine/Ns 8 Mg-250 Ml (Double Conc)) 8 mg in 250 mls @ 3.75 mls/hr IV TITRATE [facility]; Protocol Last Titration: 04/11/22 12:01 Dose: 0 mcg/min, 0 mls/hr Propofol (Diprivan 10 Mg/Ml) 1,000 mg in 100 mls @ 2.493 mls/hr IV TITR JO ANN; Protocol Last Titration: 04/15/22 19:06 Dose: 0 mcg/kg/min, 0 mls/hr Fentanyl Citrate (Fentanyl Drip Premix) 2,000 mcg in 100 mls @ 4.155 mls/hr IV TITR JO ANN; Protocol Last Titration: 04/16/22 06:01 Dose: 2 mcg/kg/hr, 8.31 mls/hr Insulin Glargine (Insulin Glargine 100 Units/Ml) 20 units SUB-Q QHS JO ANN Insulin Human Lispro (Insulin Lispro 100 Unit/Ml) 0 unit SUB-Q Q6HR [facility]; Protocol Last Admin: 04/16/22 05:29 Dose: 3 unit Ondansetron HCl (Ondansetron 4 Mg/2 Ml Inj) 4 mg IV Q8H PRN PRN Reason: Nausea And Vomiting Senna/Docusate Sodium (Sennosides/Docusate Sodium 8.6/50 Mg Tab) 2 tab FEEDTUBE BID [facility] Last Admin: 04/16/22 09:35 Dose: 2 tab Sodium Chloride (Sodium Chloride 0.9% 10 Ml Flush Syringe) 10 ml IV BID [facility] Last Admin: 04/16/22 09:38 Dose: 10 ml Sodium Chloride (Sodium Chloride 0.9% 10 Ml Flush Syringe) 10 ml IV PRN PRN PRN Reason: LINE FLUSH Physical Examination - Vital Signs Vital Signs: Vital Signs Pulse BP Pulse Ox 67 90/40 90 04/09/22 11:32 04/09/22 11:32 04/09/22 11:32 - Constitutional General appearance: uncomfortable - EENT EENT: Present: PERRL, mucous membranes moist - Respiratory Respiratory: Present: lungs clear, rhonchi, stridor - Cardiovascular Cardiovascular: Present: regular rate, normal S1, normal S2 Extremities: Present: no peripheral edema bilatateraly, no clubbing, cyanosis - Gastrointestinal Gastrointestinal: Present: normoactive bowel sounds - Integumentary Integumentary: Present: normal - Neurologic Cranial nerve examination: PERRL, EOMI, other (eyes open to verbal command reactive pupils corneal intact,no facial asymmetry) Speech examination: other (intubated and sedated) Detailed motor examination: other (withdraw to stennal rub both upper not lower extemities, planter equivical no clonus.reflexes are suppressed bilateral) Results - Laboratory Findings CBC and BMP: 04/16/22 Unknown 04/16/22 06:00 Abnormal Lab Findings: Abnormal Labs 04/09/22 04/09/22 04/09/22 11:59 12:52 12:52 WBC RBC Hgb Hct RDW 15.3 H Lymph % (Auto) 8.4 L Lymph # (Auto) 0.7 L Seg Neutrophils % 84.6 H Seg Neuts % (Manual) Lymphocytes % (Manual) Seg Neutrophils # Seg Neutrophils # Man Lymphocytes # (Manual) D-Dimer ABG pH ABG pO2 ABG HCO3 ABG O2 Saturation ABG Base Excess ABG Hemoglobin VBG pH Oxyhemoglobin Sodium Potassium Chloride 112.7 H Carbon Dioxide 18 L BUN Creatinine 2.0 H Glucose 204 H POC Glucose 203 H Lactic Acid Calcium Phosphorus Magnesium Ferritin Total Bilirubin 1.30 H Direct Bilirubin AST 47 H ALT Ammonia Lactate Dehydrogenase C-Reactive Protein Total Protein Albumin Urine Creatinine Urine Total Protein Coronavirus (PCR) 04/09/22 04/09/22 04/09/22 12:52 12:52 13:02 WBC RBC Hgb Hct RDW Lymph % (Auto) Lymph # (Auto) Seg Neutrophils % Seg Neuts % (Manual) Lymphocytes % (Manual) Seg Neutrophils # Seg Neutrophils # Man Lymphocytes # (Manual) D-Dimer ABG pH ABG pO2 ABG HCO3 ABG O2 Saturation ABG Base Excess ABG Hemoglobin VBG pH 7.303 L Oxyhemoglobin Sodium Potassium Chloride Carbon Dioxide BUN Creatinine Glucose POC Glucose Lactic Acid Calcium Phosphorus Magnesium Ferritin Total Bilirubin Direct Bilirubin AST ALT Ammonia 20.0 L Lactate Dehydrogenase C-Reactive Protein Total Protein Albumin Urine Creatinine Urine Total Protein Coronavirus (PCR) Positive A 04/09/22 04/09/22 04/09/22 15:49 22:15 22:58 WBC RBC Hgb Hct RDW Lymph % (Auto) Lymph # (Auto) Seg Neutrophils % Seg Neuts % (Manual) Lymphocytes % (Manual) Seg Neutrophils # Seg Neutrophils # Man Lymphocytes # (Manual) D-Dimer ABG pH 7.097 L* ABG pO2 188.8 H ABG HCO3 7.4 L ABG O2 Saturation 99.1 H ABG Base Excess -20.7 L ABG Hemoglobin VBG pH Oxyhemoglobin Sodium Potassium Chloride 108.8 H Carbon Dioxide 10 L D BUN 20 H Creatinine 2.6 H Glucose 465 H POC Glucose Lactic Acid 2.70 H* Calcium 7.4 L Phosphorus Magnesium Ferritin Total Bilirubin Direct Bilirubin AST ALT Ammonia Lactate Dehydrogenase C-Reactive Protein Total Protein Albumin Urine Creatinine Urine Total Protein Coronavirus (PCR) 04/09/22 04/09/22 04/10/22 23:19 Unknown 00:03 WBC RBC Hgb Hct RDW Lymph % (Auto) Lymph # (Auto) Seg Neutrophils % Seg Neuts % (Manual) Lymphocytes % (Manual) Seg Neutrophils # Seg Neutrophils # Man Lymphocytes # (Manual) D-Dimer ABG pH ABG pO2 ABG HCO3 ABG O2 Saturation ABG Base Excess ABG Hemoglobin VBG pH Oxyhemoglobin Sodium Potassium Chloride Carbon Dioxide BUN Creatinine Glucose POC Glucose 356 H Lactic Acid 7.50 H* 6.10 H* Calcium Phosphorus Magnesium Ferritin Total Bilirubin Direct Bilirubin AST ALT Ammonia Lactate Dehydrogenase C-Reactive Protein Total Protein Albumin Urine Creatinine Urine Total Protein Coronavirus (PCR) 04/10/22 04/10/22 04/10/22 02:16 03:03 04:00 WBC RBC Hgb Hct RDW Lymph % (Auto) Lymph # (Auto) Seg Neutrophils % Seg Neuts % (Manual) Lymphocytes % (Manual) Seg Neutrophils # Seg Neutrophils # Man Lymphocytes # (Manual) D-Dimer ABG pH ABG pO2 ABG HCO3 ABG O2 Saturation ABG Base Excess ABG Hemoglobin VBG pH Oxyhemoglobin Sodium Potassium Chloride Carbon Dioxide BUN Creatinine Glucose POC Glucose 317 H 325 H 308 H Lactic Acid Calcium Phosphorus Magnesium Ferritin Total Bilirubin Direct Bilirubin AST ALT Ammonia Lactate Dehydrogenase C-Reactive Protein Total Protein Albumin Urine Creatinine Urine Total Protein Coronavirus (PCR) 04/10/22 04/10/22 04/10/22 04:24 04:24 04:24 WBC 16.4 H RBC Hgb Hct RDW 16.2 H Lymph % (Auto) Lymph # (Auto) Seg Neutrophils % Seg Neuts % (Manual) 94.0 H Lymphocytes % (Manual) 3.0 L Seg Neutrophils # Seg Neutrophils # Man 15.4 H Lymphocytes # (Manual) 0.5 L D-Dimer ABG pH ABG pO2 ABG HCO3 ABG O2 Saturation ABG Base Excess ABG Hemoglobin VBG pH Oxyhemoglobin Sodium Potassium 2.9 L* D Chloride 116.1 H Carbon Dioxide 11 L BUN 19 H Creatinine 2.5 H Glucose 376 H POC Glucose Lactic Acid Calcium 6.5 L Phosphorus 1.40 L Magnesium 1.60 L Ferritin Total Bilirubin Direct Bilirubin AST 107 H ALT 64 H Ammonia Lactate Dehydrogenase C-Reactive Protein Total Protein 5.5 L Albumin 2.8 L Urine Creatinine Urine Total Protein Coronavirus (PCR) 04/10/22 04/10/22 04/10/22 04:25 05:17 06:00 WBC RBC Hgb Hct RDW Lymph % (Auto) Lymph # (Auto) Seg Neutrophils % Seg Neuts % (Manual) Lymphocytes % (Manual) Seg Neutrophils # Seg Neutrophils # Man Lymphocytes # (Manual) D-Dimer ABG pH 7.095 L* ABG pO2 112.3 H ABG HCO3 8.7 L ABG O2 Saturation ABG Base Excess -19.7 L ABG Hemoglobin VBG pH Oxyhemoglobin Sodium Potassium Chloride Carbon Dioxide BUN Creatinine Glucose POC Glucose 343 H 278 H Lactic Acid Calcium Phosphorus Magnesium Ferritin Total Bilirubin Direct Bilirubin AST ALT Ammonia Lactate Dehydrogenase C-Reactive Protein Total Protein Albumin Urine Creatinine Urine Total Protein Coronavirus (PCR) 04/10/22 04/10/22 04/10/22 06:53 07:54 08:58 WBC RBC Hgb Hct RDW Lymph % (Auto) Lymph # (Auto) Seg Neutrophils % Seg Neuts % (Manual) Lymphocytes % (Manual) Seg Neutrophils # Seg Neutrophils # Man Lymphocytes # (Manual) D-Dimer ABG pH ABG pO2 ABG HCO3 ABG O2 Saturation ABG Base Excess ABG Hemoglobin VBG pH Oxyhemoglobin Sodium Potassium Chloride Carbon Dioxide BUN Creatinine Glucose POC Glucose 262 H 245 H 215 H Lactic Acid Calcium Phosphorus Magnesium Ferritin Total Bilirubin Direct Bilirubin AST ALT Ammonia Lactate Dehydrogenase C-Reactive Protein Total Protein Albumin Urine Creatinine Urine Total Protein Coronavirus (PCR) 04/10/22 04/10/22 04/10/22 10:12 10:51 11:47 WBC RBC Hgb Hct RDW Lymph % (Auto) Lymph # (Auto) Seg Neutrophils % Seg Neuts % (Manual) Lymphocytes % (Manual) Seg Neutrophils # Seg Neutrophils # Man Lymphocytes # (Manual) D-Dimer ABG pH ABG pO2 ABG HCO3 ABG O2 Saturation ABG Base Excess ABG Hemoglobin VBG pH Oxyhemoglobin Sodium 148 H Potassium 3.4 L Chloride 116.7 H Carbon Dioxide 15 L BUN 22 H Creatinine 2.7 H Glucose 190 H POC Glucose 206 H 176 H Lactic Acid Calcium 6.9 L Phosphorus Magnesium Ferritin Total Bilirubin Direct Bilirubin AST ALT Ammonia Lactate Dehydrogenase C-Reactive Protein Total Protein Albumin Urine Creatinine Urine Total Protein Coronavirus (PCR) 04/10/22 04/10/22 04/10/22 11:47 11:47 12:02 WBC RBC Hgb Hct RDW Lymph % (Auto) Lymph # (Auto) Seg Neutrophils % Seg Neuts % (Manual) Lymphocytes % (Manual) Seg Neutrophils # Seg Neutrophils # Man Lymphocytes # (Manual) D-Dimer ABG pH ABG pO2 ABG HCO3 ABG O2 Saturation ABG Base Excess ABG Hemoglobin VBG pH Oxyhemoglobin Sodium Potassium Chloride Carbon Dioxide BUN Creatinine Glucose POC Glucose 178 H Lactic Acid Calcium Phosphorus Magnesium Ferritin 1218.0 H Total Bilirubin Direct Bilirubin AST ALT Ammonia Lactate Dehydrogenase 482 H C-Reactive Protein 11.30 H Total Protein Albumin Urine Creatinine Urine Total Protein Coronavirus (PCR) 04/10/22 04/10/22 04/10/22 13:13 13:58 14:50 WBC RBC Hgb Hct RDW Lymph % (Auto) Lymph # (Auto) Seg Neutrophils % Seg Neuts % (Manual) Lymphocytes % (Manual) Seg Neutrophils # Seg Neutrophils # Man Lymphocytes # (Manual) D-Dimer ABG pH ABG pO2 ABG HCO3 ABG O2 Saturation ABG Base Excess ABG Hemoglobin VBG pH Oxyhemoglobin Sodium Potassium Chloride Carbon Dioxide BUN Creatinine Glucose POC Glucose 160 H 150 H Lactic Acid Calcium Phosphorus Magnesium Ferritin Total Bilirubin Direct Bilirubin AST ALT Ammonia Lactate Dehydrogenase C-Reactive Protein Total Protein Albumin Urine Creatinine 224.2 H Urine Total Protein 172 H Coronavirus (PCR) 04/10/22 04/10/22 04/10/22 15:24 16:38 16:56 WBC RBC Hgb Hct RDW Lymph % (Auto) Lymph # (Auto) Seg Neutrophils % Seg Neuts % (Manual) Lymphocytes % (Manual) Seg Neutrophils # Seg Neutrophils # Man Lymphocytes # (Manual) D-Dimer ABG pH ABG pO2 ABG HCO3 ABG O2 Saturation ABG Base Excess ABG Hemoglobin VBG pH Oxyhemoglobin Sodium Potassium Chloride Carbon Dioxide BUN Creatinine Glucose POC Glucose 140 H 154 H 149 H Lactic Acid Calcium Phosphorus Magnesium Ferritin Total Bilirubin Direct Bilirubin AST ALT Ammonia Lactate Dehydrogenase C-Reactive Protein Total Protein Albumin Urine Creatinine Urine Total Protein Coronavirus (PCR) 04/10/22 04/10/22 04/10/22 18:21 19:21 20:02 WBC RBC Hgb Hct RDW Lymph % (Auto) Lymph # (Auto) Seg Neutrophils % Seg Neuts % (Manual) Lymphocytes % (Manual) Seg Neutrophils # Seg Neutrophils # Man Lymphocytes # (Manual) D-Dimer ABG pH ABG pO2 ABG HCO3 ABG O2 Saturation ABG Base Excess ABG Hemoglobin VBG pH Oxyhemoglobin Sodium Potassium Chloride Carbon Dioxide BUN Creatinine Glucose POC Glucose 141 H 126 H 139 H Lactic Acid Calcium Phosphorus Magnesium Ferritin Total Bilirubin Direct Bilirubin AST ALT Ammonia Lactate Dehydrogenase C-Reactive Protein Total Protein Albumin Urine Creatinine Urine Total Protein Coronavirus (PCR) 04/10/22 04/10/22 04/10/22 21:04 21:58 22:20 WBC RBC Hgb Hct RDW Lymph % (Auto) Lymph # (Auto) Seg Neutrophils % Seg Neuts % (Manual) Lymphocytes % (Manual) Seg Neutrophils # Seg Neutrophils # Man Lymphocytes # (Manual) D-Dimer ABG pH ABG pO2 ABG HCO3 ABG O2 Saturation ABG Base Excess ABG Hemoglobin VBG pH Oxyhemoglobin Sodium Potassium Chloride 114.5 H Carbon Dioxide 17 L BUN 24 H Creatinine 2.5 H Glucose 165 H POC Glucose 144 H 161 H Lactic Acid Calcium 6.5 L Phosphorus Magnesium Ferritin Total Bilirubin Direct Bilirubin AST ALT Ammonia Lactate Dehydrogenase C-Reactive Protein Total Protein Albumin Urine Creatinine Urine Total Protein Coronavirus (PCR) 04/10/22 04/11/22 04/11/22 23:02 00:08 01:05 WBC RBC Hgb Hct RDW Lymph % (Auto) Lymph # (Auto) Seg Neutrophils % Seg Neuts % (Manual) Lymphocytes % (Manual) Seg Neutrophils # Seg Neutrophils # Man Lymphocytes # (Manual) D-Dimer ABG pH ABG pO2 ABG HCO3 ABG O2 Saturation ABG Base Excess ABG Hemoglobin VBG pH Oxyhemoglobin Sodium Potassium Chloride Carbon Dioxide BUN Creatinine Glucose POC Glucose 160 H 148 H 156 H Lactic Acid Calcium Phosphorus Magnesium Ferritin Total Bilirubin Direct Bilirubin AST ALT Ammonia Lactate Dehydrogenase C-Reactive Protein Total Protein Albumin Urine Creatinine Urine Total Protein Coronavirus (PCR) 04/11/22 04/11/22 04/11/22 01:30 02:05 03:04 WBC RBC Hgb Hct RDW Lymph % (Auto) Lymph # (Auto) Seg Neutrophils % Seg Neuts % (Manual) Lymphocytes % (Manual) Seg Neutrophils # Seg Neutrophils # Man Lymphocytes # (Manual) D-Dimer ABG pH ABG pO2 75.1 L ABG HCO3 17.2 L ABG O2 Saturation ABG Base Excess -5.8 L ABG Hemoglobin 11.5 L VBG pH Oxyhemoglobin Sodium Potassium Chloride Carbon Dioxide BUN Creatinine Glucose POC Glucose 150 H 168 H Lactic Acid Calcium Phosphorus Magnesium Ferritin Total Bilirubin Direct Bilirubin AST ALT Ammonia Lactate Dehydrogenase C-Reactive Protein Total Protein Albumin Urine Creatinine Urine Total Protein Coronavirus (PCR) 04/11/22 04/11/22 04/11/22 03:58 03:58 04:05 WBC 12.2 H RBC Hgb Hct RDW 15.7 H Lymph % (Auto) Lymph # (Auto) Seg Neutrophils % Seg Neuts % (Manual) Lymphocytes % (Manual) Seg Neutrophils # Seg Neutrophils # Man Lymphocytes # (Manual) D-Dimer ABG pH ABG pO2 ABG HCO3 ABG O2 Saturation ABG Base Excess ABG Hemoglobin VBG pH Oxyhemoglobin Sodium 147 H Potassium Chloride 114.2 H Carbon Dioxide 19 L BUN 26 H Creatinine 2.5 H Glucose 154 H POC Glucose 151 H Lactic Acid Calcium 6.8 L Phosphorus Magnesium Ferritin Total Bilirubin Direct Bilirubin AST 106 H ALT 60 H Ammonia Lactate Dehydrogenase C-Reactive Protein Total Protein 5.6 L Albumin 2.7 L Urine Creatinine Urine Total Protein Coronavirus (PCR) 04/11/22 04/11/22 04/11/22 05:14 06:19 08:23 WBC RBC Hgb Hct RDW Lymph % (Auto) Lymph # (Auto) Seg Neutrophils % Seg Neuts % (Manual) Lymphocytes % (Manual) Seg Neutrophils # Seg Neutrophils # Man Lymphocytes # (Manual) D-Dimer ABG pH ABG pO2 ABG HCO3 ABG O2 Saturation ABG Base Excess ABG Hemoglobin VBG pH Oxyhemoglobin Sodium Potassium Chloride Carbon Dioxide BUN Creatinine Glucose POC Glucose 134 H 144 H 143 H Lactic Acid Calcium Phosphorus Magnesium Ferritin Total Bilirubin Direct Bilirubin AST ALT Ammonia Lactate Dehydrogenase C-Reactive Protein Total Protein Albumin Urine Creatinine Urine Total Protein Coronavirus (PCR) 04/11/22 04/11/22 04/11/22 09:28 10:06 11:23 WBC RBC Hgb Hct RDW Lymph % (Auto) Lymph # (Auto) Seg Neutrophils % Seg Neuts % (Manual) Lymphocytes % (Manual) Seg Neutrophils # Seg Neutrophils # Man Lymphocytes # (Manual) D-Dimer ABG pH ABG pO2 ABG HCO3 ABG O2 Saturation ABG Base Excess ABG Hemoglobin VBG pH Oxyhemoglobin Sodium Potassium Chloride Carbon Dioxide BUN Creatinine Glucose POC Glucose 138 H Lactic Acid Calcium Phosphorus Magnesium Ferritin Total Bilirubin Direct Bilirubin AST ALT Ammonia Lactate Dehydrogenase C-Reactive Protein Total Protein Albumin Urine Creatinine 161.8 H 160.5 H Urine Total Protein Coronavirus (PCR) 04/11/22 04/11/22 04/12/22 15:59 23:58 00:01 WBC 16.2 H RBC Hgb Hct RDW 15.8 H Lymph % (Auto) 5.7 L Lymph # (Auto) 0.9 L Seg Neutrophils % 89.6 H Seg Neuts % (Manual) Lymphocytes % (Manual) Seg Neutrophils # 14.6 H Seg Neutrophils # Man Lymphocytes # (Manual) D-Dimer ABG pH ABG pO2 ABG HCO3 ABG O2 Saturation ABG Base Excess ABG Hemoglobin VBG pH Oxyhemoglobin Sodium Potassium Chloride Carbon Dioxide BUN Creatinine Glucose POC Glucose 166 H 150 H Lactic Acid Calcium Phosphorus Magnesium Ferritin Total Bilirubin Direct Bilirubin AST ALT Ammonia Lactate Dehydrogenase C-Reactive Protein Total Protein Albumin Urine Creatinine Urine Total Protein Coronavirus (PCR) 04/12/22 04/12/22 04/12/22 03:20 04:00 04:00 WBC RBC Hgb Hct RDW Lymph % (Auto) Lymph # (Auto) Seg Neutrophils % Seg Neuts % (Manual) Lymphocytes % (Manual) Seg Neutrophils # Seg Neutrophils # Man Lymphocytes # (Manual) D-Dimer 1874.86 H ABG pH 7.513 H ABG pO2 61.7 L ABG HCO3 ABG O2 Saturation 94.2 L ABG Base Excess ABG Hemoglobin 11.5 L VBG pH Oxyhemoglobin 92.6 L Sodium Potassium Chloride Carbon Dioxide BUN Creatinine Glucose POC Glucose Lactic Acid Calcium Phosphorus Magnesium Ferritin 890.0 H Total Bilirubin Direct Bilirubin AST ALT Ammonia Lactate Dehydrogenase C-Reactive Protein Total Protein Albumin Urine Creatinine Urine Total Protein Coronavirus (PCR) 04/12/22 04/12/22 04/12/22 04:00 04:20 04:59 WBC RBC Hgb Hct RDW Lymph % (Auto) Lymph # (Auto) Seg Neutrophils % Seg Neuts % (Manual) Lymphocytes % (Manual) Seg Neutrophils # Seg Neutrophils # Man Lymphocytes # (Manual) D-Dimer ABG pH ABG pO2 ABG HCO3 ABG O2 Saturation ABG Base Excess ABG Hemoglobin VBG pH Oxyhemoglobin Sodium 146 H Potassium Chloride 108.0 H Carbon Dioxide BUN 38 H Creatinine 2.3 H Glucose 173 H POC Glucose 146 H Lactic Acid Calcium 6.7 L Phosphorus Magnesium Ferritin Total Bilirubin Direct Bilirubin AST ALT Ammonia Lactate Dehydrogenase 763 H C-Reactive Protein 14.10 H Total Protein Albumin Urine Creatinine Urine Total Protein Coronavirus (PCR) 04/12/22 04/12/22 04/12/22 06:05 10:15 11:52 WBC RBC Hgb Hct RDW Lymph % (Auto) Lymph # (Auto) Seg Neutrophils % Seg Neuts % (Manual) Lymphocytes % (Manual) Seg Neutrophils # Seg Neutrophils # Man Lymphocytes # (Manual) D-Dimer ABG pH ABG pO2 ABG HCO3 ABG O2 Saturation ABG Base Excess ABG Hemoglobin VBG pH Oxyhemoglobin Sodium Potassium Chloride Carbon Dioxide BUN Creatinine Glucose POC Glucose 190 H 122 H 125 H Lactic Acid Calcium Phosphorus Magnesium Ferritin Total Bilirubin Direct Bilirubin AST ALT Ammonia Lactate Dehydrogenase C-Reactive Protein Total Protein Albumin Urine Creatinine Urine Total Protein Coronavirus (PCR) 04/12/22 04/13/22 04/13/22 13:18 00:14 03:41 WBC RBC Hgb Hct RDW Lymph % (Auto) Lymph # (Auto) Seg Neutrophils % Seg Neuts % (Manual) Lymphocytes % (Manual) Seg Neutrophils # Seg Neutrophils # Man Lymphocytes # (Manual) D-Dimer ABG pH 7.487 H ABG pO2 62.1 L ABG HCO3 ABG O2 Saturation 93.2 L ABG Base Excess ABG Hemoglobin 11.9 L VBG pH Oxyhemoglobin 91.5 L Sodium Potassium Chloride Carbon Dioxide BUN 38 H Creatinine 2.1 H Glucose 144 H POC Glucose 208 H Lactic Acid Calcium 7.1 L Phosphorus Magnesium Ferritin Total Bilirubin Direct Bilirubin AST ALT Ammonia Lactate Dehydrogenase C-Reactive Protein Total Protein Albumin Urine Creatinine Urine Total Protein Coronavirus (PCR) 04/13/22 04/13/22 04/14/22 04:31 04:31 03:54 WBC 13.9 H RBC Hgb Hct RDW 15.7 H Lymph % (Auto) Lymph # (Auto) Seg Neutrophils % Seg Neuts % (Manual) Lymphocytes % (Manual) Seg Neutrophils # Seg Neutrophils # Man Lymphocytes # (Manual) D-Dimer ABG pH 7.487 H ABG pO2 57.8 L ABG HCO3 ABG O2 Saturation 93.9 L ABG Base Excess ABG Hemoglobin 10.0 L VBG pH Oxyhemoglobin 92.3 L Sodium Potassium Chloride Carbon Dioxide BUN 42 H Creatinine 1.9 H Glucose 204 H POC Glucose Lactic Acid Calcium 7.4 L Phosphorus Magnesium Ferritin Total Bilirubin Direct Bilirubin AST ALT Ammonia Lactate Dehydrogenase C-Reactive Protein Total Protein Albumin Urine Creatinine Urine Total Protein Coronavirus (PCR) 04/14/22 04/14/22 04/14/22 07:28 07:28 07:28 WBC RBC Hgb Hct RDW Lymph % (Auto) Lymph # (Auto) Seg Neutrophils % Seg Neuts % (Manual) Lymphocytes % (Manual) Seg Neutrophils # Seg Neutrophils # Man Lymphocytes # (Manual) D-Dimer 5586.76 H ABG pH ABG pO2 ABG HCO3 ABG O2 Saturation ABG Base Excess ABG Hemoglobin VBG pH Oxyhemoglobin Sodium Potassium Chloride Carbon Dioxide BUN Creatinine Glucose POC Glucose Lactic Acid Calcium Phosphorus Magnesium Ferritin 454.7 H Total Bilirubin Direct Bilirubin AST ALT Ammonia Lactate Dehydrogenase 1345 H C-Reactive Protein 4.80 H Total Protein Albumin Urine Creatinine Urine Total Protein Coronavirus (PCR) 04/14/22 04/14/22 04/14/22 07:28 07:28 09:26 WBC 18.6 H RBC 3.59 L Hgb Hct RDW 15.6 H Lymph % (Auto) Lymph # (Auto) Seg Neutrophils % Seg Neuts % (Manual) Lymphocytes % (Manual) Seg Neutrophils # Seg Neutrophils # Man Lymphocytes # (Manual) D-Dimer ABG pH ABG pO2 ABG HCO3 ABG O2 Saturation ABG Base Excess ABG Hemoglobin VBG pH Oxyhemoglobin Sodium 149 H Potassium Chloride 110.3 H Carbon Dioxide BUN 57 H Creatinine 2.3 H Glucose 205 H POC Glucose Lactic Acid Calcium Phosphorus Magnesium 2.90 H Ferritin Total Bilirubin Direct Bilirubin AST ALT Ammonia Lactate Dehydrogenase C-Reactive Protein Total Protein Albumin Urine Creatinine Urine Total Protein Coronavirus (PCR) 04/14/22 04/14/22 04/14/22 11:52 15:41 17:18 WBC RBC Hgb Hct RDW Lymph % (Auto) Lymph # (Auto) Seg Neutrophils % Seg Neuts % (Manual) Lymphocytes % (Manual) Seg Neutrophils # Seg Neutrophils # Man Lymphocytes # (Manual) D-Dimer ABG pH 7.506 H ABG pO2 51.0 L ABG HCO3 ABG O2 Saturation 87.3 L ABG Base Excess ABG Hemoglobin 10.6 L VBG pH Oxyhemoglobin 85.4 L Sodium Potassium Chloride Carbon Dioxide BUN Creatinine Glucose POC Glucose 173 H 187 H Lactic Acid Calcium Phosphorus Magnesium Ferritin Total Bilirubin Direct Bilirubin AST ALT Ammonia Lactate Dehydrogenase C-Reactive Protein Total Protein Albumin Urine Creatinine Urine Total Protein Coronavirus (PCR) 04/15/22 04/15/22 04/15/22 00:03 03:43 05:47 WBC RBC Hgb Hct RDW Lymph % (Auto) Lymph # (Auto) Seg Neutrophils % Seg Neuts % (Manual) Lymphocytes % (Manual) Seg Neutrophils # Seg Neutrophils # Man Lymphocytes # (Manual) D-Dimer ABG pH 7.477 H ABG pO2 59.1 L ABG HCO3 ABG O2 Saturation 90.5 L ABG Base Excess ABG Hemoglobin 9.5 L VBG pH Oxyhemoglobin 88.7 L Sodium Potassium Chloride Carbon Dioxide BUN Creatinine Glucose POC Glucose 246 H 217 H Lactic Acid Calcium Phosphorus Magnesium Ferritin Total Bilirubin Direct Bilirubin AST ALT Ammonia Lactate Dehydrogenase C-Reactive Protein Total Protein Albumin Urine Creatinine Urine Total Protein Coronavirus (PCR) 04/15/22 04/15/22 04/15/22 09:40 10:00 12:00 WBC 19.3 H RBC 3.18 L Hgb 9.3 L Hct 27.7 L RDW 15.8 H Lymph % (Auto) Lymph # (Auto) Seg Neutrophils % Seg Neuts % (Manual) Lymphocytes % (Manual) Seg Neutrophils # Seg Neutrophils # Man Lymphocytes # (Manual) D-Dimer ABG pH ABG pO2 ABG HCO3 ABG O2 Saturation ABG Base Excess ABG Hemoglobin VBG pH Oxyhemoglobin Sodium 146 H Potassium Chloride 107.9 H Carbon Dioxide BUN 76 H Creatinine 1.9 H Glucose 214 H POC Glucose Lactic Acid 2.10 H* Calcium 7.7 L Phosphorus Magnesium Ferritin Total Bilirubin Direct Bilirubin AST ALT Ammonia Lactate Dehydrogenase C-Reactive Protein Total Protein Albumin Urine Creatinine Urine Total Protein Coronavirus (PCR) 04/15/22 04/15/22 04/15/22 12:21 17:51 21:39 WBC RBC Hgb Hct RDW Lymph % (Auto) Lymph # (Auto) Seg Neutrophils % Seg Neuts % (Manual) Lymphocytes % (Manual) Seg Neutrophils # Seg Neutrophils # Man Lymphocytes # (Manual) D-Dimer ABG pH ABG pO2 ABG HCO3 ABG O2 Saturation ABG Base Excess ABG Hemoglobin VBG pH Oxyhemoglobin Sodium Potassium Chloride Carbon Dioxide BUN Creatinine Glucose POC Glucose 236 H 255 H 223 H Lactic Acid Calcium Phosphorus Magnesium Ferritin Total Bilirubin Direct Bilirubin AST ALT Ammonia Lactate Dehydrogenase C-Reactive Protein Total Protein Albumin Urine Creatinine Urine Total Protein Coronavirus (PCR) 04/16/22 04/16/22 04/16/22 00:17 02:35 04:00 WBC RBC Hgb Hct RDW Lymph % (Auto) Lymph # (Auto) Seg Neutrophils % Seg Neuts % (Manual) Lymphocytes % (Manual) Seg Neutrophils # Seg Neutrophils # Man Lymphocytes # (Manual) D-Dimer ABG pH 7.318 L ABG pO2 71.1 L ABG HCO3 27.7 H ABG O2 Saturation 94.8 L ABG Base Excess ABG Hemoglobin 10.3 L VBG pH Oxyhemoglobin 92.9 L Sodium Potassium Chloride Carbon Dioxide BUN Creatinine Glucose POC Glucose 201 H Lactic Acid Calcium Phosphorus Magnesium Ferritin 446.2 H Total Bilirubin Direct Bilirubin AST ALT Ammonia Lactate Dehydrogenase C-Reactive Protein Total Protein Albumin Urine Creatinine Urine Total Protein Coronavirus (PCR) 04/16/22 04/16/22 04/16/22 04:00 06:00 Unknown WBC RBC Hgb Hct RDW Lymph % (Auto) Lymph # (Auto) Seg Neutrophils % Seg Neuts % (Manual) Lymphocytes % (Manual) Seg Neutrophils # Seg Neutrophils # Man Lymphocytes # (Manual) D-Dimer 3886.80 H ABG pH ABG pO2 ABG HCO3 ABG O2 Saturation ABG Base Excess ABG Hemoglobin VBG pH Oxyhemoglobin Sodium 148 H Potassium Chloride 109.9 H Carbon Dioxide BUN 84 H Creatinine 1.7 H Glucose 276 H POC Glucose Lactic Acid Calcium Phosphorus Magnesium Ferritin Total Bilirubin Direct Bilirubin 0.5 H AST 69 H ALT 120 H Ammonia Lactate Dehydrogenase 1467 H C-Reactive Protein 1.90 H Total Protein 5.9 L Albumin 3.5 L Urine Creatinine Urine Total Protein Coronavirus (PCR) 04/16/22 Unknown WBC 25.2 H RBC Hgb Hct RDW 15.8 H Lymph % (Auto) Lymph # (Auto) Seg Neutrophils % Seg Neuts % (Manual) Lymphocytes % (Manual) Seg Neutrophils # Seg Neutrophils # Man Lymphocytes # (Manual) D-Dimer ABG pH ABG pO2 ABG HCO3 ABG O2 Saturation ABG Base Excess ABG Hemoglobin VBG pH Oxyhemoglobin Sodium Potassium Chloride Carbon Dioxide BUN Creatinine Glucose POC Glucose Lactic Acid Calcium Phosphorus Magnesium Ferritin Total Bilirubin Direct Bilirubin AST ALT Ammonia Lactate Dehydrogenase C-Reactive Protein Total Protein Albumin Urine Creatinine Urine Total Protein Coronavirus (PCR) Assessment and Plan Assessment and Plan # Acute encephalopathy, myoclonic jerks -possibly multifaactorila in part related to infection/encephalitis -CT brain is unremarkable -Suggest Brain MRI when possible -Might need to consider LP as needed if no change in status and after review MRI brain-Check with ID -EEG is with 4-6 Hz no epileptiform discharges is noted -Avoid sedation as possible # NAD -Blood pressure monitoring per protocol -s/p vasopressor support with Levophed, dobutamine, vasopressin -MAP goal greater than 65 -Echocardiogram shows LVEF 55 to 60%, normal bivalve function, mildly dilated right ventricle # Acute hypoxic respiratory failure, ARDS -CCM consulted, appreciate recommendations -Intubated in the emergency department 04/09 with 7.00 ETT at 22 the lips -A.m. vent settings: Assist-control rate 20, tidal volume 400, PEEP 10, FiO2 55% -See RT notes for titration -A.m. ABG and CXR noted -VAP bundle -SPO2 monitoring # Transaminitis -24 hours +1080 ml -PPI -NTR consult for tube feedings -FWF 250 ml q4 -BR: [place] S -Trend LFTs # Acute kidney injury likely secondary to ischemic acute tubular necrosis, hyper natremia -Nephrology consulted, appreciate recommendations -Strict intake and output -Renally dose medications -Avoid nephrotoxic medications -Daily weights -FeNa calculated at 0.13 -Renal ultrasound Shows mild echogenic kidneys which can be seen in medical renal disease, no hydronephrosis, small amount of free fluid in the abdomen -s/p IV sodium bicarbonate drip and D5W -04/13 lasix x1 -Trend BMP # Septic shock secondary to COVID-19 pneumonia, lactic acidosis -Infectious disease consulted, appreciate recommendations -Admit CXR showed bilateral air space opacities -Covid 19 PCR (+) -Antibiotic therapy with Rocephin (04/11-04/15) and vancomycin (04/11-04/14) -Decadron 8 mg daily for 10 days (04/09-04/18) -Per ID: Due to renal failure, not a candidate for remdesivir -S/p Actemra 04/10 -Contact/droplet precautions -f/u blood culture -Monitor WBC and temperature curve -Trend COVID-19 inflammatory markers #s/p DKA, h/o DM -S/p insulin drip -Avoid hypoglycemia -SSI and long-acting insulin, titrate as needed -Accu-Cheks every 6 # Leukocytosis, elevated Ddimer -BLE dopplar US shows no DVT -Trend CBC -Transfuse hemoglobin less than 7 -Lovenox subcu -Monitor for signs of bleeding -SCDs to BLE while in bed The high probability of a clinically significant, sudden or life threatening deterioration of the [multi] system(s) required my full and direct attention, intervention and personal management. The aggregate critical care time was [60] minutes. This time is in addition to time spent performing reported procedures but includes the following: [x] Data Review and interpretation [x] Patient assessment and monitoring of vital signs [x] Documentation [x] Medication orders and management Disposition Plan: icu Total Time Spent with Patient (Minutes): 60 will follow
--- NOTE | 2022-04-16 11:45 | Progress Note ---
Hospitalist Physical - Constitutional Vitals: Temp Pulse Resp BP Pulse Ox 97.9 F 105 H 13 151/80 97 04/16/22 08:00 04/16/22 11:15 04/16/22 09:00 04/16/22 11:15 04/16/22 11:15 General appearance: Present: no acute distress, well-nourished, obese HEART Score - HEART Score Age: > 65 Risk factors: 1-2 risk factors Troponin: Troponin T < 0.010 ng/mL (0.00-0.029) 04/09/22 12:52 Troponin: < normal limit - Critical Actions Critical Actions: 4-6 pts:12-16.6% risk of adverse cardiac event. Should be admitted Results - Labs CBC & Chem 7: 04/16/22 Unknown 04/16/22 06:00 Labs: Laboratory Last Values WBC 25.2 K/mm3 (4.5-11.0) H 04/16/22 Unknown RBC 3.75 M/mm3 (3.65-5.03) 04/16/22 Unknown Hgb 10.7 gm/dl (10.1-14.3) 04/16/22 Unknown Hct 33.4 % (30.3-42.9) 04/16/22 Unknown MCV 89 fl (79-97) 04/16/22 Unknown MCH 29 pg (28-32) 04/16/22 Unknown MCHC 32 % (30-34) 04/16/22 Unknown RDW 15.8 % (13.2-15.2) H 04/16/22 Unknown Plt Count 174 K/mm3 (140-440) 04/16/22 Unknown Lymph % (Auto) 5.7 % (13.4-35.0) L 04/12/22 00:01 [place] % (Auto) 4.5 % (0.0-7.3) 04/12/22 00:01 Eos % (Auto) 0.0 % (0.0-4.3) 04/12/22 00:01 Baso % (Auto) 0.2 % (0.0-1.8) 04/12/22 00:01 Lymph # (Auto) 0.9 K/mm3 (1.2-5.4) L 04/12/22 00:01 [place] # (Auto) 0.7 K/mm3 (0.0-0.8) 04/12/22 00:01 Eos # (Auto) 0.0 K/mm3 (0.0-0.4) 04/12/22 00:01 Baso # (Auto) 0.0 K/mm3 (0.0-0.1) 04/12/22 00:01 Add Manual Diff Complete 04/10/22 04:24 Total Counted 100 04/10/22 04:24 Seg Neutrophils % 89.6 % (40.0-70.0) H 04/12/22 00:01 Seg Neuts % (Manual) 94.0 % (40.0-70.0) H 04/10/22 04:24 Band Neutrophils % 0 % 04/10/22 04:24 Lymphocytes % (Manual) 3.0 % (13.4-35.0) L 04/10/22 04:24 Reactive Lymphs % (Man) 0 % 04/10/22 04:24 Monocytes % (Manual) 3.0 % (0.0-7.3) 04/10/22 04:24 Eosinophils % (Manual) 0 % (0.0-4.3) 04/10/22 04:24 Basophils % (Manual) 0 % (0.0-1.8) 04/10/22 04:24 Metamyelocytes % 0 % 04/10/22 04:24 Myelocytes % 0 % 04/10/22 04:24 Promyelocytes % 0 % 04/10/22 04:24 Blast Cells % 0 % 04/10/22 04:24 Nucleated RBC % Not Reportable 04/10/22 04:24 Seg Neutrophils # 14.6 K/mm3 (1.8-7.7) H 04/12/22 00:01 Seg Neutrophils # Man 15.4 K/mm3 (1.8-7.7) H 04/10/22 04:24 Band Neutrophils # 0.0 K/mm3 04/10/22 04:24 Lymphocytes # (Manual) 0.5 K/mm3 (1.2-5.4) L 04/10/22 04:24 Abs React Lymphs (Man) 0.0 K/mm3 04/10/22 04:24 Monocytes # (Manual) 0.5 K/mm3 (0.0-0.8) 04/10/22 04:24 Eosinophils # (Manual) 0.0 K/mm3 (0.0-0.4) 04/10/22 04:24 Basophils # (Manual) 0.0 K/mm3 (0.0-0.1) 04/10/22 04:24 Metamyelocytes # 0.0 K/mm3 04/10/22 04:24 Myelocytes # 0.0 K/mm3 04/10/22 04:24 Promyelocytes # 0.0 K/mm3 04/10/22 04:24 Blast Cells # 0.0 K/mm3 04/10/22 04:24 WBC Morphology Not Reportable 04/10/22 04:24 Hypersegmented Neuts Not Reportable 04/10/22 04:24 Hyposegmented Neuts Not Reportable 04/10/22 04:24 Hypogranular Neuts Not Reportable 04/10/22 04:24 Smudge Cells Not Reportable 04/10/22 04:24 Toxic Granulation Not Reportable 04/10/22 04:24 Toxic Vacuolation Not Reportable 04/10/22 04:24 Dohle Bodies Not Reportable 04/10/22 04:24 Pelger-Huet Anomaly Not Reportable 04/10/22 04:24 Aleja Rods Not Reportable 04/10/22 04:24 Platelet Estimate Consistent w auto 04/10/22 04:24 Clumped Platelets Not Reportable 04/10/22 04:24 Plt Clumps, EDTA Not Reportable 04/10/22 04:24 Large Platelets Not Reportable 04/10/22 04:24 Giant Platelets Rare 04/10/22 04:24 Platelet Satelliting Not Reportable 04/10/22 04:24 Plt Morphology Comment Not Reportable 04/10/22 04:24 RBC Morphology Normal 04/10/22 04:24 Dimorphic RBCs Not Reportable 04/10/22 04:24 Polychromasia Not Reportable 04/10/22 04:24 Hypochromasia Not Reportable 04/10/22 04:24 Poikilocytosis Not Reportable 04/10/22 04:24 Anisocytosis Not Reportable 04/10/22 04:24 Microcytosis Not Reportable 04/10/22 04:24 Macrocytosis Not Reportable 04/10/22 04:24 Spherocytes Not Reportable 04/10/22 04:24 Pappenheimer Bodies Not Reportable 04/10/22 04:24 Sickle Cells Not Reportable 04/10/22 04:24 Target Cells Not Reportable 04/10/22 04:24 Tear Drop Cells Not Reportable 04/10/22 04:24 Ovalocytes Not Reportable 04/10/22 04:24 Helmet Cells Not Reportable 04/10/22 04:24 Lao-Byram Bodies Not Reportable 04/10/22 04:24 [place] Rings Not Reportable 04/10/22 04:24 [place] Cells Not Reportable 04/10/22 04:24 Bite Cells Not Reportable 04/10/22 04:24 Crenated Cell Not Reportable 04/10/22 04:24 Elliptocytes Not Reportable 04/10/22 04:24 Acanthocytes (Spur) Not Reportable 04/10/22 04:24 Rouleaux Not Reportable 04/10/22 04:24 Hemoglobin C Crystals Not Reportable 04/10/22 04:24 Schistocytes Not Reportable 04/10/22 04:24 Malaria parasites Not Reportable 04/10/22 04:24 Allan Bodies Not Reportable 04/10/22 04:24 Hem Pathologist Commnt No 04/10/22 04:24 PT 14.5 Sec. (12.2-14.9) 04/09/22 12:52 INR 1.02 (0.87-1.13) 04/09/22 12:52 D-Dimer 3886.80 ng/mlDDU (0-234) H 04/16/22 Unknown ABG pH 7.318 pH Units (7.350-7.450) L 04/16/22 02:35 ABG pCO2 55.4 mm Hg 04/16/22 02:35 ABG pO2 71.1 mm Hg (80.0-90.0) L 04/16/22 02:35 ABG HCO3 27.7 mmol/L (20.0-26.0) H 04/16/22 02:35 ABG O2 Saturation 94.8 % (95.0-99.0) L 04/16/22 02:35 ABG O2 Content 13.6 (0.0-44) 04/16/22 02:35 ABG Base Excess 0.9 mmol/L (-2.0-3.0) 04/16/22 02:35 ABG Hemoglobin 10.3 gm/dl (12.0-16.0) L 04/16/22 02:35 ABG Carboxyhemoglobin 1.5 % (0.0-5.0) 04/16/22 02:35 ABG Methemoglobin 0.5 % (0.0-1.5) 04/16/22 02:35 VBG pH 7.303 (7.320-7.420) L 04/09/22 12:52 Oxyhemoglobin 92.9 % (95.0-99.0) L 04/16/22 02:35 FiO2 55 % 04/16/22 02:35 Sodium 148 mmol/L (137-145) H 04/16/22 06:00 Potassium 5.0 mmol/L (3.6-5.0) 04/16/22 06:00 Chloride 109.9 mmol/L (98-107) H 04/16/22 06:00 Carbon Dioxide 25 mmol/L (22-30) 04/16/22 06:00 Anion Gap 18 mmol/L 04/16/22 06:00 BUN 84 mg/dL (7-17) H 04/16/22 06:00 Creatinine 1.7 mg/dL (0.6-1.2) H 04/16/22 06:00 Estimated GFR 35 ml/min 04/16/22 06:00 BUN/Creatinine Ratio 49 % 04/16/22 06:00 Glucose 276 mg/dL (65-100) H 04/16/22 06:00 POC Glucose 201 mg/dL (70-105) H 04/16/22 00:17 Lactic Acid 2.10 mmol/L (0.7-2.0) H* 04/15/22 12:00 Calcium 8.4 mg/dL (8.4-10.2) 04/16/22 06:00 Phosphorus 3.60 mg/dL (2.5-4.5) 04/14/22 07:28 Magnesium 2.90 mg/dL (1.7-2.3) H 04/14/22 07:28 Ferritin 446.2 ng/mL (10.0-200.0) H 04/16/22 04:00 Total Bilirubin 0.90 mg/dL (0.1-1.2) 04/16/22 04:00 Direct Bilirubin 0.5 mg/dL (0-0.2) H 04/16/22 04:00 Indirect Bilirubin 0.4 mg/dL 04/16/22 04:00 AST 69 units/L (5-40) H 04/16/22 04:00 ALT 120 units/L (7-56) H 04/16/22 04:00 Alkaline Phosphatase 110 units/L (35-129) 04/16/22 04:00 Ammonia 20.0 umol/L (25-60) L 04/09/22 12:52 Lactate Dehydrogenase 1467 units/L (91-180) H 04/16/22 04:00 Troponin T < 0.010 ng/mL (0.00-0.029) 04/09/22 12:52 C-Reactive Protein 1.90 mg/dL (0.00-1.30) H 04/16/22 04:00 NT-Pro-B Natriuret Pep 101.1 pg/mL (0-900) 04/09/22 13:45 Total Protein 5.9 g/dL (6.3-8.2) L 04/16/22 04:00 Albumin 3.5 g/dL (3.9-5) L 04/16/22 04:00 Albumin/Globulin Ratio 1.5 % 04/16/22 04:00 Procalcitonin 3.13 ng/mL (<0.15) 04/10/22 11:47 TSH 1.560 mlU/mL (0.270-4.200) 04/09/22 12:52 Free T4 1.33 ng/dL (0.76-1.46) 04/09/22 12:52 Urine Color Yellow (Yellow) 04/09/22 13:24 Urine Turbidity Clear (Clear) 04/09/22 13:24 Urine pH 5.0 (5.0-7.0) 04/09/22 13:24 Ur Specific [place] 1.011 (1.003-1.030) 04/09/22 13:24 Urine Protein 30 mg/dl mg/dL (Negative) 04/09/22 13:24 Urine Glucose (UA) Neg mg/dL (Negative) 04/09/22 13:24 Urine Ketones 20 mg/dL (Negative) 04/09/22 13:24 Urine Blood Neg (Negative) 04/09/22 13:24 Urine Nitrite Neg (Negative) 04/09/22 13:24 Urine Bilirubin Neg (Negative) 04/09/22 13:24 Urine Urobilinogen 4.0 mg/dL (<2.0) 04/09/22 13:24 Ur Leukocyte Esterase Neg (Negative) 04/09/22 13:24 Urine WBC (Auto) 2.0 /HPF (0.0-6.0) 04/09/22 13:24 Urine RBC (Auto) < 1.0 /HPF (0.0-6.0) 04/09/22 13:24 U Epithel Cells (Auto) < 1.0 /HPF (0-13.0) 04/09/22 13:24 Urine Mucus Few /HPF 04/09/22 13:24 Urine Eosinophils None seen (None Seen) 04/10/22 14:50 Urine Total Volume 750 ml 04/11/22 11:23 Urine Creatinine 160.5 mg/dL (0.1-20.0) H 04/11/22 11:23 Ur Creatinine 24 Hour 1.2 (0.8-2.8) 04/11/22 11:23 Height (in) Not Reportable 04/11/22 11:23 Weight (lb) Not Reportable 04/11/22 11:23 Creatinine Clearance Not Reportable 04/11/22 11:23 Protein/Creatinin Ratio 0.77 04/10/22 14:50 Urine Sodium 17 mmol/L 04/10/22 14:50 Urine Total Protein 172 mg/dL (5-11.8) H 04/10/22 14:50 Random Vancomycin 11.9 ug/mL (0-40.0) 04/11/22 03:58 Urine Opiates Screen Presumptive negative 04/09/22 22:58 Urine Methadone Screen Presumptive negative 04/09/22 22:58 Ur Barbiturates Screen Presumptive negative 04/09/22 22:58 Ur Phencyclidine Scrn Presumptive negative 04/09/22 22:58 Ur Amphetamines Screen Presumptive negative 04/09/22 22:58 U Benzodiazepines Scrn Presumptive negative 04/09/22 22:58 Urine Cocaine Screen Presumptive negative 04/09/22 22:58 U Marijuana (THC) Screen Presumptive negative 04/09/22 22:58 Drugs of Abuse Note Disclamer 04/09/22 22:58 Coronavirus (PCR) Positive (Negative) A 04/09/22 13:02 Influenza A (RT-PCR) Negative (Negative) 04/09/22 14:15 Influenza B (RT-PCR) Negative (Negative) 04/09/22 14:15 [place]/IV: Voiding Method Indwelling Catheter Active Medications - Current Medications Current Medications: Generic Name Dose Route Start Last Admin Trade Name Freq PRN Reason Stop Dose Admin Acetaminophen 650 mg 04/09/22 18:11 Acetaminophen 325 Mg Tab PO Q4H PRN Pain MILD(1-3)/Fever >100.5/CARCAMO Dexamethasone 8 mg 04/09/22 19:00 04/15/22 18:41 Dexamethasone 4 Mg/Ml Vial IV 04/18/22 19:01 8 mg Q24H JO ANN Administration Dextrose 0 ml 04/10/22 00:40 Dextrose 50% In Water (25gm) 50 Ml Syringe IV Q30MIN PRN Hypoglycemia Protocol Enoxaparin Sodium 30 mg 04/10/22 10:00 04/16/22 09:36 Enoxaparin 30 Mg/0.3 Ml Inj SUB-Q 30 mg QDAY JO ANN Administration Famotidine 10 mg 04/14/22 10:00 04/16/22 09:36 Famotidine 10 Mg Tab FEEDTUBE 10 mg BID JO ANN Administration Fentanyl 50 mcg 04/15/22 09:25 Fentanyl 100 Mcg/2 Ml Inj IV Q10MIN PRN ANALGESIA NORepinephrine/NS 8 MG-250 ML 8 mg in 250 mls @ 3.75 mls/hr 04/09/22 16:00 04/11/22 12:01 Norepinephrine/Ns 8 Mg-250 Ml (Double Conc) IV 0 mcg/min TITRATE JO ANN 0 mls/hr Titration Protocol 2 MCG/MIN Propofol 1,000 mg in 100 mls @ 2.493 mls/hr 04/14/22 21:00 04/15/22 19:06 Diprivan 10 Mg/Ml IV 0 mcg/kg/min TITR JO ANN 0 mls/hr Titration Protocol 5 MCG/KG/MIN Fentanyl Citrate 2,000 mcg in 100 mls @ 4.155 mls/hr 04/15/22 10:00 04/16/22 06:01 Fentanyl Drip Premix IV 2 mcg/kg/hr TITR JO ANN 8.31 mls/hr Titration Protocol 1 MCG/KG/HR Insulin Glargine 20 units 04/16/22 22:00 Insulin Glargine 100 Units/Ml SUB-Q QHS JO ANN Insulin Human Lispro 0 unit 04/12/22 12:00 04/16/22 05:29 Insulin Lispro 100 Unit/Ml SUB-Q 3 unit Q6HR JO ANN Administration Protocol Ondansetron HCl 4 mg 04/09/22 18:11 Ondansetron 4 Mg/2 Ml Inj IV Q8H PRN Nausea And Vomiting Senna/Docusate Sodium 2 tab 04/15/22 14:00 04/16/22 09:35 Sennosides/Docusate Sodium 8.6/50 Mg Tab FEEDTUBE 2 tab BID JO ANN Administration Sodium Chloride 10 ml 04/09/22 22:00 04/16/22 09:38 Sodium Chloride 0.9% 10 Ml Flush Syringe IV 10 ml BID JO ANN Administration Sodium Chloride 10 ml 04/09/22 18:11 Sodium Chloride 0.9% 10 Ml Flush Syringe IV PRN PRN LINE FLUSH Nutrition/Malnutrition Assess - Dietary Evaluation Nutrition/Malnutrition Findings: Nutrition Notes Start: 04/12/22 10:07 Freq: Status: Active Protocol: Document 04/15/22 15:18 [facility] (Rec: 04/15/22 15:23 [facility] [id number]) Nutrition Notes Initial or Follow up Reassessment Current Diagnosis Acute Kidney Injury,Diabetes, Sepsis,Respiratory Failure Other Pertinent Diagnosis AMS, Bilat pneu, COVID-19 (+), Hypotension Current Diet TF - Glucerna 1.2 at 55ml/hr Labs/Tests Na 146 BUN 76 Cr 1.9 BG 214 Pertinent Medications Propofol at 9.972ml/hr ( provides 263 kcal) Height 5 ft 7 in Weight 83.1 kg [place] Body Weight (kg) 61.36 BMI 28.7 Weight change and time frame 98% energy 79% pro Weight Status Overweight Subjective/Other Information Pt remains on vent support; not on pressor support at this time. Renal function being monitored closely. Observed TF infusing at goal rate. Burn Absent Trauma Absent #1 Nutrition Diagnosis Inadequate oral intake As Evidenced by Signs and Symptoms EN support continues Diagnosis Progress(for reassessment Continues documentation) Is patient on ventilator? Yes Is Patient Ambulatory and/or Out of Bed No REE-([place] or-confined to bed) 6730.109 Calculation Used for Recommendations [place] Jeor Additional Notes Pro needs 1.2-2g/k-166g/ day Fluid needs 1ml/kcal Nutrition Intervention Nutrition Support: Continue Glucerna 1.2 at 55ml/ hr with 100ml water flush q4h. Kcal 1,584 Protein (gm) 79 Carbohydrates (gm) 151 Fat (gm) 79 Fluid (mL) 1,063 Fiber (gm) 21 Goal #1 TF tolerance Goal #2 TF to meet at least 75% energy and pro needs Follow-Up By: 04/22/22 Additional Comments F/U: stable TF, vent status, renal function, propofol
--- NOTE | 2022-04-16 18:12 | Progress Note ---
Assessment and Plan Cultures: SARS CoV2 PCR: Positive Influenza PCR: Negative 04/09/2022 blood culture: no growth. 04/09/2022 resp culture: Usual respiratory catherine A/P: 77-year-old female with diabetes, history of ovarian cancer believed to be in remission was admitted with altered mental status: #Septic shock, probably secondary to severe COVID-19. ABG showed severe acidosis. UA without pyuria. Chest x-ray showed bilateral airspace opacities. Off pressors now. #Bilateral pneumonia: Secondary to COVID-19. Unvaccinated. Actemra administered 04/10/2022. CRP 11.3, procalcitonin 3.3, ferritin 1218, LDH 482. #Acute hypoxic respiratory failure: Requiring mechanical ventilation. #ASHLEY: Renally adjust antibiotics. #Transaminitis #Acute encephalopathy: Neurology following. Recs: -IV/PO Dexamethasone x 10 days -Due to renal failure, not a candidate for Remdesivir -S/p Actemra 04/10/2022 -prophylactic anticoagulation based on d-dimer per hospital protocol -Completed empiric antibiotics -Whie count increasing now off antibioitcs. No change in steroids. Remains afebrile. Would add cefepime. -trend ferritin, d-dimer, CRP every 2-3 days -Guarded prognosis Laura Sahu MD [facility] ([facility] O: [phone] F: [phone] Subjective Date of service: 04/16/22 Principal diagnosis: ASHLEY Interval history: Afebrile, white count increased today 25.2. Brain MRI is pending. Objective - Exam Narrative Exam: Physical Exam: Constitutional: sedated, intubated, on the vent Head, Ears, Nose: Normocephalic, atraumatic. External ears, nose normal Eyes: Conjunctivae/corneas clear. No icterus. No ptosis. Neck: intubated Oral: intubated Cardiovascular: S1, S2 + Respiratory: AE fair bilaterally and equal GI: Soft, bowel sounds + Musculoskeletal: No pedal edema, no cyanosis. Skin: No rash or abscess Hem/Lymphatic: No palpable cervical or supraclavicular nodes. Psych: no agitation Neurological: sedated, intubated, on the vent, exam limited - Constitutional Vitals: Vital Signs Temp Pulse Resp BP Pulse Ox 98.1 F 108 H 12 149/77 99 04/16/22 18:09 04/16/22 18:00 04/16/22 18:00 04/16/22 18:00 04/16/22 18:00 Temperature -Last 24 Hours Temperature 98.1 F Temperature 97.7 F Temperature 97.7 F Temperature 97.9 F Temperature 97.0 F Temperature 98.0 F Temperature 98.0 F Temperature 97.4 F - Labs CBC & Chem 7: 04/16/22 Unknown 04/16/22 06:00 Labs: Abnormal lab results 04/15/22 04/15/22 04/15/22 Range/Units 05:47 12:21 17:51 WBC (4.5-11.0) K/mm3 RDW (13.2-15.2) % D-Dimer (0-234) ng/mlDDU ABG pH (7.350-7.450) pH Units ABG pO2 (80.0-90.0) mm Hg ABG HCO3 (20.0-26.0) mmol/L ABG O2 Saturation (95.0-99.0) % ABG Hemoglobin (12.0-16.0) gm/dl Oxyhemoglobin (95.0-99.0) % Sodium (137-145) mmol/L Chloride (98-107) mmol/L BUN (7-17) mg/dL Creatinine (0.6-1.2) mg/dL Glucose (65-100) mg/dL POC Glucose 217 H 236 H 255 H (70-105) mg/dL Ferritin (10.0-200.0) ng/mL Direct Bilirubin (0-0.2) mg/dL AST (5-40) units/L ALT (7-56) units/L Lactate Dehydrogenase (91-180) units/L C-Reactive Protein (0.00-1.30) mg/dL Total Protein (6.3-8.2) g/dL Albumin (3.9-5) g/dL 04/15/22 04/16/22 04/16/22 Range/Units 21:39 00:17 02:35 WBC (4.5-11.0) K/mm3 RDW (13.2-15.2) % D-Dimer (0-234) ng/mlDDU ABG pH 7.318 L (7.350-7.450) pH Units ABG pO2 71.1 L (80.0-90.0) mm Hg ABG HCO3 27.7 H (20.0-26.0) mmol/L ABG O2 Saturation 94.8 L (95.0-99.0) % ABG Hemoglobin 10.3 L (12.0-16.0) gm/dl Oxyhemoglobin 92.9 L (95.0-99.0) % Sodium (137-145) mmol/L Chloride (98-107) mmol/L BUN (7-17) mg/dL Creatinine (0.6-1.2) mg/dL Glucose (65-100) mg/dL POC Glucose 223 H 201 H (70-105) mg/dL Ferritin (10.0-200.0) ng/mL Direct Bilirubin (0-0.2) mg/dL AST (5-40) units/L ALT (7-56) units/L Lactate Dehydrogenase (91-180) units/L C-Reactive Protein (0.00-1.30) mg/dL Total Protein (6.3-8.2) g/dL Albumin (3.9-5) g/dL 04/16/22 04/16/22 04/16/22 Range/Units 04:00 04:00 06:00 WBC (4.5-11.0) K/mm3 RDW (13.2-15.2) % D-Dimer (0-234) ng/mlDDU ABG pH (7.350-7.450) pH Units ABG pO2 (80.0-90.0) mm Hg ABG HCO3 (20.0-26.0) mmol/L ABG O2 Saturation (95.0-99.0) % ABG Hemoglobin (12.0-16.0) gm/dl Oxyhemoglobin (95.0-99.0) % Sodium 148 H (137-145) mmol/L Chloride 109.9 H (98-107) mmol/L BUN 84 H (7-17) mg/dL Creatinine 1.7 H (0.6-1.2) mg/dL Glucose 276 H (65-100) mg/dL POC Glucose (70-105) mg/dL Ferritin 446.2 H (10.0-200.0) ng/mL Direct Bilirubin 0.5 H (0-0.2) mg/dL AST 69 H (5-40) units/L ALT 120 H (7-56) units/L Lactate Dehydrogenase 1467 H (91-180) units/L C-Reactive Protein 1.90 H (0.00-1.30) mg/dL Total Protein 5.9 L (6.3-8.2) g/dL Albumin 3.5 L (3.9-5) g/dL 04/16/22 04/16/22 Range/Units Unknown Unknown WBC 25.2 H (4.5-11.0) K/mm3 RDW 15.8 H (13.2-15.2) % D-Dimer 3886.80 H (0-234) ng/mlDDU ABG pH (7.350-7.450) pH Units ABG pO2 (80.0-90.0) mm Hg ABG HCO3 (20.0-26.0) mmol/L ABG O2 Saturation (95.0-99.0) % ABG Hemoglobin (12.0-16.0) gm/dl Oxyhemoglobin (95.0-99.0) % Sodium (137-145) mmol/L Chloride (98-107) mmol/L BUN (7-17) mg/dL Creatinine (0.6-1.2) mg/dL Glucose (65-100) mg/dL POC Glucose (70-105) mg/dL Ferritin (10.0-200.0) ng/mL Direct Bilirubin (0-0.2) mg/dL AST (5-40) units/L ALT (7-56) units/L Lactate Dehydrogenase (91-180) units/L C-Reactive Protein (0.00-1.30) mg/dL Total Protein (6.3-8.2) g/dL Albumin (3.9-5) g/dL
[2022-04-16] MEDS: dexAMETHasone 4 MG/ML VIAL IV SCH (18:22)
[2022-04-16] MEDS: CEFEPIME/NS 2 GM/100 ML 2 GM/100 ML BAG IV SCH (19:30)
--- NOTE | 2022-04-16 20:45 | Magnetic Resonance Report ---
MR brain wo/w con INDICATION / CLINICAL INFORMATION: 77 years Female; Seizure disorder. TECHNIQUE: Multiplanar, multisequence MR images of the brain were obtained. COMPARISON: None available. FINDINGS: BRAIN / INTRACRANIAL CONTENTS: The motion degrades image quality despite repeat imaging. However, the re is mild periventricular white matter disease most consistent with microvascular angiopathy. The di ffusion imaging reveals no clear evidence of acute infarction. Mild cerebral atrophy with associated mild prominence of the ventricular system. No extra-axial fluid collections or significant mass effect is identified. No intracranial enhancing lesions are apprecia ak[place]. CRANIOCERVICAL JUNCTION: No significant abnormality. VASCULAR FLOW-VOIDS: No significant abnormality. ORBITS: No significant abnormality of visualized orbits. SINUSES / MASTOIDS: The patient is intubated with fluid signal along the visualized nasopharynx and m astoid air cells. ADDITIONAL FINDINGS: None. IMPRESSION: 1. The study is limited by motion in this intubated patient. However, there is mild microvascular ang iopathy and cerebral atrophy without clear evidence of acute infarction. Signer Name: Carlos Qureshi MD Signed: 04/16/2022 8:40 PM Workstation Name: [id number]
[2022-04-16] MEDS ORDERED: INSULIN GLARGINE 100 UNITS/ML SUB-Q SCH (22:00)
[2022-04-17] MEDS: INSULIN LISPRO 100 UNIT/ML SUB-Q SCH ×6 (00:30→21:09)
[2022-04-17] MEDS: FREE WATER PO SCH ×6 (02:15→22:05)
[2022-04-17] MEDS: fentaNYL DRIP Premix 2,000 MCG/100 ML BAG IV SCH ×2 (05:05→15:46)
[2022-04-17 05:45] LABS: Hematocrit 30.9 % (30.3-42.9); Hemoglobin 10.1 gm/dl (10.1-14.3); Mean Corpuscular HGB Conc 33 % (30-34); Mean Corpuscular Volume 88 fl (79-97); Platelet Count 172 K/mm3 (140-440); Red Cell Distribution Width 15.8 % (13.2-15.2)
[2022-04-17 06:05] LABS: Albumin 3.7 g/dL (3.9-5); Calcium 8.4 mg/dL (8.4-10.2)
[2022-04-17] MEDS: CEFEPIME/NS 2 GM/100 ML 2 GM/100 ML BAG IV SCH ×2 (07:20→18:25)
[2022-04-17] MEDS ORDERED: SODIUM POLYSTYRENE 15 GM/60 ML ORAL LIQD PO SCH (08:00)
--- NOTE | 2022-04-17 10:59 | Progress Note ---
Assessment and Plan Assessment and Plan # Acute encephalopathy, myoclonic jerks -possibly multi-factorial in part related to infection/encephalitis -CT brain is unremarkable - Brain MRI unremarkable -Might need to consider LP as needed if no change in status and after review MRI brain-Check with ID -EEG is with 4-6 Hz no epileptiform discharges is noted -Avoid sedation as possible # NAD -Blood pressure monitoring per protocol -s/p vasopressor support with Levophed, dobutamine, vasopressin -MAP goal greater than 65 -Echocardiogram shows LVEF 55 to 60%, normal bivalve function, mildly dilated right ventricle # Acute hypoxic respiratory failure, ARDS -CCM consulted, appreciate recommendations -Intubated in the emergency department 04/09 with 7.00 ETT at 22 the lips -A.m. vent settings: Assist-control rate 20, tidal volume 400, PEEP 10, FiO2 55% -See RT notes for titration -A.m. ABG and CXR noted -VAP bundle -SPO2 monitoring # Transaminitis -24 hours +1080 ml -PPI -NTR consult for tube feedings -FWF 250 ml q4 -BR: [place] S -Trend LFTs # Acute kidney injury likely secondary to ischemic acute tubular necrosis, h ypernatremia -Nephrology consulted, appreciate recommendations -Strict intake and output -Renally dose medications -Avoid nephrotoxic medications -Daily weights -FeNa calculated at 0.13 -Renal ultrasound Shows mild echogenic kidneys which can be seen in medical renal disease, no hydronephrosis, small amount of free fluid in the abdomen -s/p IV sodium bicarbonate drip and D5W -04/13 lasix x1 -Trend BMP # Septic shock secondary to COVID-19 pneumonia, lactic acidosis -Infectious disease consulted, appreciate recommendations -Admit CXR showed bilateral air space opacities -Covid 19 PCR (+) -Antibiotic therapy with Rocephin (04/11-04/15) and vancomycin (04/11-04/14) -Decadron 8 mg daily for 10 days (04/09-04/18) -Per ID: Due to renal failure, not a candidate for remdesivir -S/p Actemra 04/10 -Contact/droplet precautions -f/u blood culture -Monitor WBC and temperature curve -Trend COVID-19 inflammatory markers #s/p DKA, h/o DM -S/p insulin drip -Avoid hypoglycemia -SSI and long-acting insulin, titrate as needed -Accu-Cheks every 6 # Leukocytosis, elevated Ddimer -BLE dopplar US shows no DVT -Trend CBC -Transfuse hemoglobin less than 7 -Lovenox subcu -Monitor for signs of bleeding -SCDs to BLE while in bed PLAN 1- Mant[place] as above 2- slight improvement in mental status --respond to voice ,not follow commands 3- MRI brain is noted 4- Avoid sedations 5- Pt therapy rang of motion 6- day light exposure will follow Subjective Date of service: 04/17/22 Interval history: Off sedation since yesterday she is slightly more interactive today withdraw to voice when calling her name , not follow commands, with draw to sternal rub by moving both upper and to lesser extent lower extremities MRI brain is noted Unremarkable OFF decadron today Leukocyres is better #22.2 Hypernatremia [id number] improved Objective - Vital Sign Vital Signs - 12hr 04/16/22 04/16/22 04/16/22 23:00 23:20 23:51 Temperature 98.8 F Pulse Rate 107 H 106 H Pulse Rate [ From Monitor] Respiratory 17 18 Rate Blood Pressure 132/70 132/70 O2 Sat by Pulse 100 99 Oximetry 04/17/22 04/17/22 04/17/22 00:00 00:12 01:00 Temperature Pulse Rate 107 H 109 H 108 H Pulse Rate [ 107 H From Monitor] Respiratory 18 17 Rate Blood Pressure 134/70 134/70 135/72 O2 Sat by Pulse 99 99 98 Oximetry 04/17/22 04/17/22 04/17/22 02:00 03:00 03:19 Temperature 98.5 F Pulse Rate 112 H 112 H Pulse Rate [ From Monitor] Respiratory 19 18 Rate Blood Pressure 136/71 141/71 O2 Sat by Pulse 99 99 Oximetry 04/17/22 04/17/22 04/17/22 04:00 05:00 06:00 Temperature Pulse Rate 113 H 110 H 117 H Pulse Rate [ 113 H From Monitor] Respiratory 18 17 19 Rate Blood Pressure 135/75 144/74 135/67 O2 Sat by Pulse 99 97 98 Oximetry 04/17/22 04/17/22 04/17/22 07:00 07:28 07:44 Temperature 97.9 F Pulse Rate 118 H Pulse Rate [ From Monitor] Respiratory 20 Rate Blood Pressure 133/71 138/73 O2 Sat by Pulse 99 98 Oximetry 04/17/22 04/17/22 08:00 09:00 Temperature Pulse Rate 118 H 118 H Pulse Rate [ 118 H From Monitor] Respiratory 18 16 Rate Blood Pressure 134/69 137/70 O2 Sat by Pulse 98 98 Oximetry - General Apperance Constitutional: uncomfortable - EENT EENT: PERRL, mucous membranes moist - Respiratory Respiratory: lungs clear, rhonchi - Cardiovascular Cardiovascular: regular rate, normal S1, normal S2 Extremities: no peripheral edema bilat, no clubbing, cyanosis - Gastrointestinal Gastrointestinal: normoactive bowel sounds - Integumentary Integumentary: normal - Neurologic Cranial nerve examination: PERRL, EOMI, other (pupil reactive , EOMI ,corneal intact) Detailed motor examination: other (move upper extremities to stimulation ,not follow commands) - Psychiatric Psychiatric: other (respond to calling her name , move eyes in direction of voice, not follow commands) - Laboratory Findings CBC and BMP: 04/17/22 05:12 04/17/22 05:12 Abnormal Lab Findings: Abnormal Labs 04/09/22 04/09/22 04/09/22 11:59 12:52 12:52 WBC RBC Hgb Hct RDW 15.3 H Lymph % (Auto) 8.4 L Lymph # (Auto) 0.7 L Seg Neutrophils % 84.6 H Seg Neuts % (Manual) Lymphocytes % (Manual) Seg Neutrophils # Seg Neutrophils # Man Lymphocytes # (Manual) D-Dimer ABG pH ABG pO2 ABG HCO3 ABG O2 Saturation ABG Base Excess ABG Hemoglobin VBG pH Oxyhemoglobin Sodium Potassium Chloride 112.7 H Carbon Dioxide 18 L BUN Creatinine 2.0 H Glucose 204 H POC Glucose 203 H Lactic Acid Calcium Phosphorus Magnesium Ferritin Total Bilirubin 1.30 H Direct Bilirubin AST 47 H ALT Ammonia Lactate Dehydrogenase C-Reactive Protein Total Protein Albumin Urine Creatinine Urine Total Protein Coronavirus (PCR) 04/09/22 04/09/22 04/09/22 12:52 12:52 13:02 WBC RBC Hgb Hct RDW Lymph % (Auto) Lymph # (Auto) Seg Neutrophils % Seg Neuts % (Manual) Lymphocytes % (Manual) Seg Neutrophils # Seg Neutrophils # Man Lymphocytes # (Manual) D-Dimer ABG pH ABG pO2 ABG HCO3 ABG O2 Saturation ABG Base Excess ABG Hemoglobin VBG pH 7.303 L Oxyhemoglobin Sodium Potassium Chloride Carbon Dioxide BUN Creatinine Glucose POC Glucose Lactic Acid Calcium Phosphorus Magnesium Ferritin Total Bilirubin Direct Bilirubin AST ALT Ammonia 20.0 L Lactate Dehydrogenase C-Reactive Protein Total Protein Albumin Urine Creatinine Urine Total Protein Coronavirus (PCR) Positive A 04/09/22 04/09/22 04/09/22 15:49 22:15 22:58 WBC RBC Hgb Hct RDW Lymph % (Auto) Lymph # (Auto) Seg Neutrophils % Seg Neuts % (Manual) Lymphocytes % (Manual) Seg Neutrophils # Seg Neutrophils # Man Lymphocytes # (Manual) D-Dimer ABG pH 7.097 L* ABG pO2 188.8 H ABG HCO3 7.4 L ABG O2 Saturation 99.1 H ABG Base Excess -20.7 L ABG Hemoglobin VBG pH Oxyhemoglobin Sodium Potassium Chloride 108.8 H Carbon Dioxide 10 L D BUN 20 H Creatinine 2.6 H Glucose 465 H POC Glucose Lactic Acid 2.70 H* Calcium 7.4 L Phosphorus Magnesium Ferritin Total Bilirubin Direct Bilirubin AST ALT Ammonia Lactate Dehydrogenase C-Reactive Protein Total Protein Albumin Urine Creatinine Urine Total Protein Coronavirus (PCR) 04/09/22 04/09/22 04/10/22 23:19 Unknown 00:03 WBC RBC Hgb Hct RDW Lymph % (Auto) Lymph # (Auto) Seg Neutrophils % Seg Neuts % (Manual) Lymphocytes % (Manual) Seg Neutrophils # Seg Neutrophils # Man Lymphocytes # (Manual) D-Dimer ABG pH ABG pO2 ABG HCO3 ABG O2 Saturation ABG Base Excess ABG Hemoglobin VBG pH Oxyhemoglobin Sodium Potassium Chloride Carbon Dioxide BUN Creatinine Glucose POC Glucose 356 H Lactic Acid 7.50 H* 6.10 H* Calcium Phosphorus Magnesium Ferritin Total Bilirubin Direct Bilirubin AST ALT Ammonia Lactate Dehydrogenase C-Reactive Protein Total Protein Albumin Urine Creatinine Urine Total Protein Coronavirus (PCR) 04/10/22 04/10/22 04/10/22 02:16 03:03 04:00 WBC RBC Hgb Hct RDW Lymph % (Auto) Lymph # (Auto) Seg Neutrophils % Seg Neuts % (Manual) Lymphocytes % (Manual) Seg Neutrophils # Seg Neutrophils # Man Lymphocytes # (Manual) D-Dimer ABG pH ABG pO2 ABG HCO3 ABG O2 Saturation ABG Base Excess ABG Hemoglobin VBG pH Oxyhemoglobin Sodium Potassium Chloride Carbon Dioxide BUN Creatinine Glucose POC Glucose 317 H 325 H 308 H Lactic Acid Calcium Phosphorus Magnesium Ferritin Total Bilirubin Direct Bilirubin AST ALT Ammonia Lactate Dehydrogenase C-Reactive Protein Total Protein Albumin Urine Creatinine Urine Total Protein Coronavirus (PCR) 04/10/22 04/10/22 04/10/22 04:24 04:24 04:24 WBC 16.4 H RBC Hgb Hct RDW 16.2 H Lymph % (Auto) Lymph # (Auto) Seg Neutrophils % Seg Neuts % (Manual) 94.0 H Lymphocytes % (Manual) 3.0 L Seg Neutrophils # Seg Neutrophils # Man 15.4 H Lymphocytes # (Manual) 0.5 L D-Dimer ABG pH ABG pO2 ABG HCO3 ABG O2 Saturation ABG Base Excess ABG Hemoglobin VBG pH Oxyhemoglobin Sodium Potassium 2.9 L* D Chloride 116.1 H Carbon Dioxide 11 L BUN 19 H Creatinine 2.5 H Glucose 376 H POC Glucose Lactic Acid Calcium 6.5 L Phosphorus 1.40 L Magnesium 1.60 L Ferritin Total Bilirubin Direct Bilirubin AST 107 H ALT 64 H Ammonia Lactate Dehydrogenase C-Reactive Protein Total Protein 5.5 L Albumin 2.8 L Urine Creatinine Urine Total Protein Coronavirus (PCR) 04/10/22 04/10/22 04/10/22 04:25 05:17 06:00 WBC RBC Hgb Hct RDW Lymph % (Auto) Lymph # (Auto) Seg Neutrophils % Seg Neuts % (Manual) Lymphocytes % (Manual) Seg Neutrophils # Seg Neutrophils # Man Lymphocytes # (Manual) D-Dimer ABG pH 7.095 L* ABG pO2 112.3 H ABG HCO3 8.7 L ABG O2 Saturation ABG Base Excess -19.7 L ABG Hemoglobin VBG pH Oxyhemoglobin Sodium Potassium Chloride Carbon Dioxide BUN Creatinine Glucose POC Glucose 343 H 278 H Lactic Acid Calcium Phosphorus Magnesium Ferritin Total Bilirubin Direct Bilirubin AST ALT Ammonia Lactate Dehydrogenase C-Reactive Protein Total Protein Albumin Urine Creatinine Urine Total Protein Coronavirus (PCR) 04/10/22 04/10/22 04/10/22 06:53 07:54 08:58 WBC RBC Hgb Hct RDW Lymph % (Auto) Lymph # (Auto) Seg Neutrophils % Seg Neuts % (Manual) Lymphocytes % (Manual) Seg Neutrophils # Seg Neutrophils # Man Lymphocytes # (Manual) D-Dimer ABG pH ABG pO2 ABG HCO3 ABG O2 Saturation ABG Base Excess ABG Hemoglobin VBG pH Oxyhemoglobin Sodium Potassium Chloride Carbon Dioxide BUN Creatinine Glucose POC Glucose 262 H 245 H 215 H Lactic Acid Calcium Phosphorus Magnesium Ferritin Total Bilirubin Direct Bilirubin AST ALT Ammonia Lactate Dehydrogenase C-Reactive Protein Total Protein Albumin Urine Creatinine Urine Total Protein Coronavirus (PCR) 04/10/22 04/10/22 04/10/22 10:12 10:51 11:47 WBC RBC Hgb Hct RDW Lymph % (Auto) Lymph # (Auto) Seg Neutrophils % Seg Neuts % (Manual) Lymphocytes % (Manual) Seg Neutrophils # Seg Neutrophils # Man Lymphocytes # (Manual) D-Dimer ABG pH ABG pO2 ABG HCO3 ABG O2 Saturation ABG Base Excess ABG Hemoglobin VBG pH Oxyhemoglobin Sodium 148 H Potassium 3.4 L Chloride 116.7 H Carbon Dioxide 15 L BUN 22 H Creatinine 2.7 H Glucose 190 H POC Glucose 206 H 176 H Lactic Acid Calcium 6.9 L Phosphorus Magnesium Ferritin Total Bilirubin Direct Bilirubin AST ALT Ammonia Lactate Dehydrogenase C-Reactive Protein Total Protein Albumin Urine Creatinine Urine Total Protein Coronavirus (PCR) 04/10/22 04/10/22 04/10/22 11:47 11:47 12:02 WBC RBC Hgb Hct RDW Lymph % (Auto) Lymph # (Auto) Seg Neutrophils % Seg Neuts % (Manual) Lymphocytes % (Manual) Seg Neutrophils # Seg Neutrophils # Man Lymphocytes # (Manual) D-Dimer ABG pH ABG pO2 ABG HCO3 ABG O2 Saturation ABG Base Excess ABG Hemoglobin VBG pH Oxyhemoglobin Sodium Potassium Chloride Carbon Dioxide BUN Creatinine Glucose POC Glucose 178 H Lactic Acid Calcium Phosphorus Magnesium Ferritin 1218.0 H Total Bilirubin Direct Bilirubin AST ALT Ammonia Lactate Dehydrogenase 482 H C-Reactive Protein 11.30 H Total Protein Albumin Urine Creatinine Urine Total Protein Coronavirus (PCR) 04/10/22 04/10/22 04/10/22 13:13 13:58 14:50 WBC RBC Hgb Hct RDW Lymph % (Auto) Lymph # (Auto) Seg Neutrophils % Seg Neuts % (Manual) Lymphocytes % (Manual) Seg Neutrophils # Seg Neutrophils # Man Lymphocytes # (Manual) D-Dimer ABG pH ABG pO2 ABG HCO3 ABG O2 Saturation ABG Base Excess ABG Hemoglobin VBG pH Oxyhemoglobin Sodium Potassium Chloride Carbon Dioxide BUN Creatinine Glucose POC Glucose 160 H 150 H Lactic Acid Calcium Phosphorus Magnesium Ferritin Total Bilirubin Direct Bilirubin AST ALT Ammonia Lactate Dehydrogenase C-Reactive Protein Total Protein Albumin Urine Creatinine 224.2 H Urine Total Protein 172 H Coronavirus (PCR) 04/10/22 04/10/22 04/10/22 15:24 16:38 16:56 WBC RBC Hgb Hct RDW Lymph % (Auto) Lymph # (Auto) Seg Neutrophils % Seg Neuts % (Manual) Lymphocytes % (Manual) Seg Neutrophils # Seg Neutrophils # Man Lymphocytes # (Manual) D-Dimer ABG pH ABG pO2 ABG HCO3 ABG O2 Saturation ABG Base Excess ABG Hemoglobin VBG pH Oxyhemoglobin Sodium Potassium Chloride Carbon Dioxide BUN Creatinine Glucose POC Glucose 140 H 154 H 149 H Lactic Acid Calcium Phosphorus Magnesium Ferritin Total Bilirubin Direct Bilirubin AST ALT Ammonia Lactate Dehydrogenase C-Reactive Protein Total Protein Albumin Urine Creatinine Urine Total Protein Coronavirus (PCR) 04/10/22 04/10/22 04/10/22 18:21 19:21 20:02 WBC RBC Hgb Hct RDW Lymph % (Auto) Lymph # (Auto) Seg Neutrophils % Seg Neuts % (Manual) Lymphocytes % (Manual) Seg Neutrophils # Seg Neutrophils # Man Lymphocytes # (Manual) D-Dimer ABG pH ABG pO2 ABG HCO3 ABG O2 Saturation ABG Base Excess ABG Hemoglobin VBG pH Oxyhemoglobin Sodium Potassium Chloride Carbon Dioxide BUN Creatinine Glucose POC Glucose 141 H 126 H 139 H Lactic Acid Calcium Phosphorus Magnesium Ferritin Total Bilirubin Direct Bilirubin AST ALT Ammonia Lactate Dehydrogenase C-Reactive Protein Total Protein Albumin Urine Creatinine Urine Total Protein Coronavirus (PCR) 04/10/22 04/10/22 04/10/22 21:04 21:58 22:20 WBC RBC Hgb Hct RDW Lymph % (Auto) Lymph # (Auto) Seg Neutrophils % Seg Neuts % (Manual) Lymphocytes % (Manual) Seg Neutrophils # Seg Neutrophils # Man Lymphocytes # (Manual) D-Dimer ABG pH ABG pO2 ABG HCO3 ABG O2 Saturation ABG Base Excess ABG Hemoglobin VBG pH Oxyhemoglobin Sodium Potassium Chloride 114.5 H Carbon Dioxide 17 L BUN 24 H Creatinine 2.5 H Glucose 165 H POC Glucose 144 H 161 H Lactic Acid Calcium 6.5 L Phosphorus Magnesium Ferritin Total Bilirubin Direct Bilirubin AST ALT Ammonia Lactate Dehydrogenase C-Reactive Protein Total Protein Albumin Urine Creatinine Urine Total Protein Coronavirus (PCR) 05/18/22 05/19/22 05/19/22 23:02 00:08 01:05 WBC RBC Hgb Hct RDW Lymph % (Auto) Lymph # (Auto) Seg Neutrophils % Seg Neuts % (Manual) Lymphocytes % (Manual) Seg Neutrophils # Seg Neutrophils # Man Lymphocytes # (Manual) D-Dimer ABG pH ABG pO2 ABG HCO3 ABG O2 Saturation ABG Base Excess ABG Hemoglobin VBG pH Oxyhemoglobin Sodium Potassium Chloride Carbon Dioxide BUN Creatinine Glucose POC Glucose 160 H 148 H 156 H Lactic Acid Calcium Phosphorus Magnesium Ferritin Total Bilirubin Direct Bilirubin AST ALT Ammonia Lactate Dehydrogenase C-Reactive Protein Total Protein Albumin Urine Creatinine Urine Total Protein Coronavirus (PCR) 04/11/22 04/11/22 04/11/22 01:30 02:05 03:04 WBC RBC Hgb Hct RDW Lymph % (Auto) Lymph # (Auto) Seg Neutrophils % Seg Neuts % (Manual) Lymphocytes % (Manual) Seg Neutrophils # Seg Neutrophils # Man Lymphocytes # (Manual) D-Dimer ABG pH ABG pO2 75.1 L ABG HCO3 17.2 L ABG O2 Saturation ABG Base Excess -5.8 L ABG Hemoglobin 11.5 L VBG pH Oxyhemoglobin Sodium Potassium Chloride Carbon Dioxide BUN Creatinine Glucose POC Glucose 150 H 168 H Lactic Acid Calcium Phosphorus Magnesium Ferritin Total Bilirubin Direct Bilirubin AST ALT Ammonia Lactate Dehydrogenase C-Reactive Protein Total Protein Albumin Urine Creatinine Urine Total Protein Coronavirus (PCR) 04/11/22 04/11/22 04/11/22 03:58 03:58 04:05 WBC 12.2 H RBC Hgb Hct RDW 15.7 H Lymph % (Auto) Lymph # (Auto) Seg Neutrophils % Seg Neuts % (Manual) Lymphocytes % (Manual) Seg Neutrophils # Seg Neutrophils # Man Lymphocytes # (Manual) D-Dimer ABG pH ABG pO2 ABG HCO3 ABG O2 Saturation ABG Base Excess ABG Hemoglobin VBG pH Oxyhemoglobin Sodium 147 H Potassium Chloride 114.2 H Carbon Dioxide 19 L BUN 26 H Creatinine 2.5 H Glucose 154 H POC Glucose 151 H Lactic Acid Calcium 6.8 L Phosphorus Magnesium Ferritin Total Bilirubin Direct Bilirubin AST 106 H ALT 60 H Ammonia Lactate Dehydrogenase C-Reactive Protein Total Protein 5.6 L Albumin 2.7 L Urine Creatinine Urine Total Protein Coronavirus (PCR) 04/11/22 04/11/22 04/11/22 05:14 06:19 08:23 WBC RBC Hgb Hct RDW Lymph % (Auto) Lymph # (Auto) Seg Neutrophils % Seg Neuts % (Manual) Lymphocytes % (Manual) Seg Neutrophils # Seg Neutrophils # Man Lymphocytes # (Manual) D-Dimer ABG pH ABG pO2 ABG HCO3 ABG O2 Saturation ABG Base Excess ABG Hemoglobin VBG pH Oxyhemoglobin Sodium Potassium Chloride Carbon Dioxide BUN Creatinine Glucose POC Glucose 134 H 144 H 143 H Lactic Acid Calcium Phosphorus Magnesium Ferritin Total Bilirubin Direct Bilirubin AST ALT Ammonia Lactate Dehydrogenase C-Reactive Protein Total Protein Albumin Urine Creatinine Urine Total Protein Coronavirus (PCR) 04/11/22 04/11/22 04/11/22 09:28 10:06 11:23 WBC RBC Hgb Hct RDW Lymph % (Auto) Lymph # (Auto) Seg Neutrophils % Seg Neuts % (Manual) Lymphocytes % (Manual) Seg Neutrophils # Seg Neutrophils # Man Lymphocytes # (Manual) D-Dimer ABG pH ABG pO2 ABG HCO3 ABG O2 Saturation ABG Base Excess ABG Hemoglobin VBG pH Oxyhemoglobin Sodium Potassium Chloride Carbon Dioxide BUN Creatinine Glucose POC Glucose 138 H Lactic Acid Calcium Phosphorus Magnesium Ferritin Total Bilirubin Direct Bilirubin AST ALT Ammonia Lactate Dehydrogenase C-Reactive Protein Total Protein Albumin Urine Creatinine 161.8 H 160.5 H Urine Total Protein Coronavirus (PCR) 04/11/22 04/11/22 04/12/22 15:59 23:58 00:01 WBC 16.2 H RBC Hgb Hct RDW 15.8 H Lymph % (Auto) 5.7 L Lymph # (Auto) 0.9 L Seg Neutrophils % 89.6 H Seg Neuts % (Manual) Lymphocytes % (Manual) Seg Neutrophils # 14.6 H Seg Neutrophils # Man Lymphocytes # (Manual) D-Dimer ABG pH ABG pO2 ABG HCO3 ABG O2 Saturation ABG Base Excess ABG Hemoglobin VBG pH Oxyhemoglobin Sodium Potassium Chloride Carbon Dioxide BUN Creatinine Glucose POC Glucose 166 H 150 H Lactic Acid Calcium Phosphorus Magnesium Ferritin Total Bilirubin Direct Bilirubin AST ALT Ammonia Lactate Dehydrogenase C-Reactive Protein Total Protein Albumin Urine Creatinine Urine Total Protein Coronavirus (PCR) 04/12/22 04/12/22 04/12/22 03:20 04:00 04:00 WBC RBC Hgb Hct RDW Lymph % (Auto) Lymph # (Auto) Seg Neutrophils % Seg Neuts % (Manual) Lymphocytes % (Manual) Seg Neutrophils # Seg Neutrophils # Man Lymphocytes # (Manual) D-Dimer 1874.86 H ABG pH 7.513 H ABG pO2 61.7 L ABG HCO3 ABG O2 Saturation 94.2 L ABG Base Excess ABG Hemoglobin 11.5 L VBG pH Oxyhemoglobin 92.6 L Sodium Potassium Chloride Carbon Dioxide BUN Creatinine Glucose POC Glucose Lactic Acid Calcium Phosphorus Magnesium Ferritin 890.0 H Total Bilirubin Direct Bilirubin AST ALT Ammonia Lactate Dehydrogenase C-Reactive Protein Total Protein Albumin Urine Creatinine Urine Total Protein Coronavirus (PCR) 04/12/22 04/12/22 04/12/22 04:00 04:20 04:59 WBC RBC Hgb Hct RDW Lymph % (Auto) Lymph # (Auto) Seg Neutrophils % Seg Neuts % (Manual) Lymphocytes % (Manual) Seg Neutrophils # Seg Neutrophils # Man Lymphocytes # (Manual) D-Dimer ABG pH ABG pO2 ABG HCO3 ABG O2 Saturation ABG Base Excess ABG Hemoglobin VBG pH Oxyhemoglobin Sodium 146 H Potassium Chloride 108.0 H Carbon Dioxide BUN 38 H Creatinine 2.3 H Glucose 173 H POC Glucose 146 H Lactic Acid Calcium 6.7 L Phosphorus Magnesium Ferritin Total Bilirubin Direct Bilirubin AST ALT Ammonia Lactate Dehydrogenase 763 H C-Reactive Protein 14.10 H Total Protein Albumin Urine Creatinine Urine Total Protein Coronavirus (PCR) 04/12/22 04/12/22 04/12/22 06:05 10:15 11:52 WBC RBC Hgb Hct RDW Lymph % (Auto) Lymph # (Auto) Seg Neutrophils % Seg Neuts % (Manual) Lymphocytes % (Manual) Seg Neutrophils # Seg Neutrophils # Man Lymphocytes # (Manual) D-Dimer ABG pH ABG pO2 ABG HCO3 ABG O2 Saturation ABG Base Excess ABG Hemoglobin VBG pH Oxyhemoglobin Sodium Potassium Chloride Carbon Dioxide BUN Creatinine Glucose POC Glucose 190 H 122 H 125 H Lactic Acid Calcium Phosphorus Magnesium Ferritin Total Bilirubin Direct Bilirubin AST ALT Ammonia Lactate Dehydrogenase C-Reactive Protein Total Protein Albumin Urine Creatinine Urine Total Protein Coronavirus (PCR) 04/12/22 04/13/22 04/13/22 13:18 00:14 03:41 WBC RBC Hgb Hct RDW Lymph % (Auto) Lymph # (Auto) Seg Neutrophils % Seg Neuts % (Manual) Lymphocytes % (Manual) Seg Neutrophils # Seg Neutrophils # Man Lymphocytes # (Manual) D-Dimer ABG pH 7.487 H ABG pO2 62.1 L ABG HCO3 ABG O2 Saturation 93.2 L ABG Base Excess ABG Hemoglobin 11.9 L VBG pH Oxyhemoglobin 91.5 L Sodium Potassium Chloride Carbon Dioxide BUN 38 H Creatinine 2.1 H Glucose 144 H POC Glucose 208 H Lactic Acid Calcium 7.1 L Phosphorus Magnesium Ferritin Total Bilirubin Direct Bilirubin AST ALT Ammonia Lactate Dehydrogenase C-Reactive Protein Total Protein Albumin Urine Creatinine Urine Total Protein Coronavirus (PCR) 04/13/22 04/13/22 04/14/22 04:31 04:31 03:54 WBC 13.9 H RBC Hgb Hct RDW 15.7 H Lymph % (Auto) Lymph # (Auto) Seg Neutrophils % Seg Neuts % (Manual) Lymphocytes % (Manual) Seg Neutrophils # Seg Neutrophils # Man Lymphocytes # (Manual) D-Dimer ABG pH 7.487 H ABG pO2 57.8 L ABG HCO3 ABG O2 Saturation 93.9 L ABG Base Excess ABG Hemoglobin 10.0 L VBG pH Oxyhemoglobin 92.3 L Sodium Potassium Chloride Carbon Dioxide BUN 42 H Creatinine 1.9 H Glucose 204 H POC Glucose Lactic Acid Calcium 7.4 L Phosphorus Magnesium Ferritin Total Bilirubin Direct Bilirubin AST ALT Ammonia Lactate Dehydrogenase C-Reactive Protein Total Protein Albumin Urine Creatinine Urine Total Protein Coronavirus (PCR) 04/14/22 04/14/22 04/14/22 07:28 07:28 07:28 WBC RBC Hgb Hct RDW Lymph % (Auto) Lymph # (Auto) Seg Neutrophils % Seg Neuts % (Manual) Lymphocytes % (Manual) Seg Neutrophils # Seg Neutrophils # Man Lymphocytes # (Manual) D-Dimer 5586.76 H ABG pH ABG pO2 ABG HCO3 ABG O2 Saturation ABG Base Excess ABG Hemoglobin VBG pH Oxyhemoglobin Sodium Potassium Chloride Carbon Dioxide BUN Creatinine Glucose POC Glucose Lactic Acid Calcium Phosphorus Magnesium Ferritin 454.7 H Total Bilirubin Direct Bilirubin AST ALT Ammonia Lactate Dehydrogenase 1345 H C-Reactive Protein 4.80 H Total Protein Albumin Urine Creatinine Urine Total Protein Coronavirus (PCR) 04/14/22 04/14/22 04/14/22 07:28 07:28 09:26 WBC 18.6 H RBC 3.59 L Hgb Hct RDW 15.6 H Lymph % (Auto) Lymph # (Auto) Seg Neutrophils % Seg Neuts % (Manual) Lymphocytes % (Manual) Seg Neutrophils # Seg Neutrophils # Man Lymphocytes # (Manual) D-Dimer ABG pH ABG pO2 ABG HCO3 ABG O2 Saturation ABG Base Excess ABG Hemoglobin VBG pH Oxyhemoglobin Sodium 149 H Potassium Chloride 110.3 H Carbon Dioxide BUN 57 H Creatinine 2.3 H Glucose 205 H POC Glucose Lactic Acid Calcium Phosphorus Magnesium 2.90 H Ferritin Total Bilirubin Direct Bilirubin AST ALT Ammonia Lactate Dehydrogenase C-Reactive Protein Total Protein Albumin Urine Creatinine Urine Total Protein Coronavirus (PCR) 04/14/22 04/14/22 04/14/22 11:52 15:41 17:18 WBC RBC Hgb Hct RDW Lymph % (Auto) Lymph # (Auto) Seg Neutrophils % Seg Neuts % (Manual) Lymphocytes % (Manual) Seg Neutrophils # Seg Neutrophils # Man Lymphocytes # (Manual) D-Dimer ABG pH 7.506 H ABG pO2 51.0 L ABG HCO3 ABG O2 Saturation 87.3 L ABG Base Excess ABG Hemoglobin 10.6 L VBG pH Oxyhemoglobin 85.4 L Sodium Potassium Chloride Carbon Dioxide BUN Creatinine Glucose POC Glucose 173 H 187 H Lactic Acid Calcium Phosphorus Magnesium Ferritin Total Bilirubin Direct Bilirubin AST ALT Ammonia Lactate Dehydrogenase C-Reactive Protein Total Protein Albumin Urine Creatinine Urine Total Protein Coronavirus (PCR) 04/15/22 04/15/22 04/15/22 00:03 03:43 05:47 WBC RBC Hgb Hct RDW Lymph % (Auto) Lymph # (Auto) Seg Neutrophils % Seg Neuts % (Manual) Lymphocytes % (Manual) Seg Neutrophils # Seg Neutrophils # Man Lymphocytes # (Manual) D-Dimer ABG pH 7.477 H ABG pO2 59.1 L ABG HCO3 ABG O2 Saturation 90.5 L ABG Base Excess ABG Hemoglobin 9.5 L VBG pH Oxyhemoglobin 88.7 L Sodium Potassium Chloride Carbon Dioxide BUN Creatinine Glucose POC Glucose 246 H 217 H Lactic Acid Calcium Phosphorus Magnesium Ferritin Total Bilirubin Direct Bilirubin AST ALT Ammonia Lactate Dehydrogenase C-Reactive Protein Total Protein Albumin Urine Creatinine Urine Total Protein Coronavirus (PCR) 04/15/22 04/15/22 04/15/22 09:40 10:00 12:00 WBC 19.3 H RBC 3.18 L Hgb 9.3 L Hct 27.7 L RDW 15.8 H Lymph % (Auto) Lymph # (Auto) Seg Neutrophils % Seg Neuts % (Manual) Lymphocytes % (Manual) Seg Neutrophils # Seg Neutrophils # Man Lymphocytes # (Manual) D-Dimer ABG pH ABG pO2 ABG HCO3 ABG O2 Saturation ABG Base Excess ABG Hemoglobin VBG pH Oxyhemoglobin Sodium 146 H Potassium Chloride 107.9 H Carbon Dioxide BUN 76 H Creatinine 1.9 H Glucose 214 H POC Glucose Lactic Acid 2.10 H* Calcium 7.7 L Phosphorus Magnesium Ferritin Total Bilirubin Direct Bilirubin AST ALT Ammonia Lactate Dehydrogenase C-Reactive Protein Total Protein Albumin Urine Creatinine Urine Total Protein Coronavirus (PCR) 04/15/22 04/15/22 04/15/22 12:21 17:51 21:39 WBC RBC Hgb Hct RDW Lymph % (Auto) Lymph # (Auto) Seg Neutrophils % Seg Neuts % (Manual) Lymphocytes % (Manual) Seg Neutrophils # Seg Neutrophils # Man Lymphocytes # (Manual) D-Dimer ABG pH ABG pO2 ABG HCO3 ABG O2 Saturation ABG Base Excess ABG Hemoglobin VBG pH Oxyhemoglobin Sodium Potassium Chloride Carbon Dioxide BUN Creatinine Glucose POC Glucose 236 H 255 H 223 H Lactic Acid Calcium Phosphorus Magnesium Ferritin Total Bilirubin Direct Bilirubin AST ALT Ammonia Lactate Dehydrogenase C-Reactive Protein Total Protein Albumin Urine Creatinine Urine Total Protein Coronavirus (PCR) 04/16/22 04/16/22 04/16/22 00:17 02:35 04:00 WBC RBC Hgb Hct RDW Lymph % (Auto) Lymph # (Auto) Seg Neutrophils % Seg Neuts % (Manual) Lymphocytes % (Manual) Seg Neutrophils # Seg Neutrophils # Man Lymphocytes # (Manual) D-Dimer ABG pH 7.318 L ABG pO2 71.1 L ABG HCO3 27.7 H ABG O2 Saturation 94.8 L ABG Base Excess ABG Hemoglobin 10.3 L VBG pH Oxyhemoglobin 92.9 L Sodium Potassium Chloride Carbon Dioxide BUN Creatinine Glucose POC Glucose 201 H Lactic Acid Calcium Phosphorus Magnesium Ferritin 446.2 H Total Bilirubin Direct Bilirubin AST ALT Ammonia Lactate Dehydrogenase C-Reactive Protein Total Protein Albumin Urine Creatinine Urine Total Protein Coronavirus (PCR) 04/16/22 04/16/22 04/16/22 04:00 06:00 Unknown WBC RBC Hgb Hct RDW Lymph % (Auto) Lymph # (Auto) Seg Neutrophils % Seg Neuts % (Manual) Lymphocytes % (Manual) Seg Neutrophils # Seg Neutrophils # Man Lymphocytes # (Manual) D-Dimer 3886.80 H ABG pH ABG pO2 ABG HCO3 ABG O2 Saturation ABG Base Excess ABG Hemoglobin VBG pH Oxyhemoglobin Sodium 148 H Potassium Chloride 109.9 H Carbon Dioxide BUN 84 H Creatinine 1.7 H Glucose 276 H POC Glucose Lactic Acid Calcium Phosphorus Magnesium Ferritin Total Bilirubin Direct Bilirubin 0.5 H AST 69 H ALT 120 H Ammonia Lactate Dehydrogenase 1467 H C-Reactive Protein 1.90 H Total Protein 5.9 L Albumin 3.5 L Urine Creatinine Urine Total Protein Coronavirus (PCR) 04/16/22 04/17/22 04/17/22 Unknown 05:12 05:12 WBC 25.2 H 22.2 H RBC 3.50 L Hgb Hct RDW 15.8 H 15.8 H Lymph % (Auto) Lymph # (Auto) Seg Neutrophils % Seg Neuts % (Manual) Lymphocytes % (Manual) Seg Neutrophils # Seg Neutrophils # Man Lymphocytes # (Manual) D-Dimer 3804.33 H ABG pH ABG pO2 ABG HCO3 ABG O2 Saturation ABG Base Excess ABG Hemoglobin VBG pH Oxyhemoglobin Sodium Potassium Chloride Carbon Dioxide BUN Creatinine Glucose POC Glucose Lactic Acid Calcium Phosphorus Magnesium Ferritin Total Bilirubin Direct Bilirubin AST ALT Ammonia Lactate Dehydrogenase C-Reactive Protein Total Protein Albumin Urine Creatinine Urine Total Protein Coronavirus (PCR) 04/17/22 05:12 WBC RBC Hgb Hct RDW Lymph % (Auto) Lymph # (Auto) Seg Neutrophils % Seg Neuts % (Manual) Lymphocytes % (Manual) Seg Neutrophils # Seg Neutrophils # Man Lymphocytes # (Manual) D-Dimer ABG pH ABG pO2 ABG HCO3 ABG O2 Saturation ABG Base Excess ABG Hemoglobin VBG pH Oxyhemoglobin Sodium 149 H Potassium 5.3 H Chloride 109.4 H Carbon Dioxide BUN 80 H Creatinine 1.5 H Glucose 320 H POC Glucose Lactic Acid Calcium Phosphorus Magnesium Ferritin Total Bilirubin Direct Bilirubin AST 171 H ALT 231 H Ammonia Lactate Dehydrogenase C-Reactive Protein Total Protein 5.4 L Albumin 3.7 L Urine Creatinine Urine Total Protein Coronavirus (PCR)
[2022-04-17] MEDS: HEPARIN 5,000 UNIT/1 ML VIAL SUB-Q SCH ×2 (11:09→22:05)
[2022-04-17] MEDS: FAMOTIDINE 10 MG TAB FEEDTUBE SCH ×2 (11:09→21:08)
[2022-04-17] MEDS: SENNOSIDES/DOCUSATE SODIUM 8.6/50 MG TAB FEEDTUBE SCH ×2 (11:09→21:07)
--- NOTE | 2022-04-17 12:16 | Progress Note ---
<KEE GONZALEZ - Last Filed: 04/17/22 19:39> Assessment and Plan Assessment and plan: This is a 77-year-old female with DM and ovarian cancer in remission admitted for septic shock secondary to COVID-19 pneumonia, acute kidney injury, acute hypoxic respiratory failure and currently in multiorgan failure Hospital Course to Date: 04/10: Patient noted to have myoclonic jerking this morning and was given 2 mg of Ativan which aborted the jerking. Neurology was consulted and MRI and EEG were ordered. Patient admits to [facility] for MRI at this time. Patient is hypotensive and currently on Levophed, vasopressin and dobutamine. Nephrology consulted for renal failure. Remains on insulin drip and was placed on a bicarbonate drip this morning. Infectious disease consulted who added vancomy socrates and ordered follow-up labs. Dr. Craig had a conversation with family about prognosis and given multisystem organ failure. We will continue supportive care. 04/11/22-patient seen at bedside. T/V orally intubated. No purposeful response on assessment. make periodic jerking movement. EEG done today-will f/u with result. BICarb d/c -acidosis has improved-started on D5 11/28 NS. Reviewed specialist note and reces-renal US-no acute finding. Continue Pressors for MAPs >65. Wean as tolerated. Bicarb-d/c and start D5W. 04/12: Patient is following commands, nutrition consulted for tube feedings, PEEP decreased with possible PSV in the a.m., insulin drip discontinued and SSI/basal dose insulin started. [facility] will update son. 04/13: Renal function continues to improve, intermittently following commands, [facility] ordered 1 x 40 mg of Lasix repeat CXR in the a.m. Tolerating tube feedings. 04/14: PEEP increased per [facility], will not repeat Lasix again due to increasing renal functions. Ordered CT head. Overnight patient was tachypneic and agitated and Precedex drip was started. We will start Seroquel and wean Precedex as tolerated. 04/15: IVF started by nephro yesterday for hypernatremia, awaiting BMP for today to result. Overnight patient was started on propofol and has propofol and precedex infusing. Fentanyl gtt ordered and precedex gtt discontinued. 04/16: Patient remains on the vent, back on sedation overnight due to vent unsynchrony. Remains encephalopathic, EEG pending, Neurology reconsulted. Continue FWF Q4hrs for hypernatremia and SSI and basal insulin adjusted for better glycemic control. Worsening leukocytosis noted, patient remains afebrile. Patient completed X5 of IV Abx and still on IV steroids, will continue to monitor for now. ID is also following. D/C [facility] plan for family phone conference with patient's son tomorrow to discuss goal of care. 04/17: Remains on the vent, mentation is unchanged, MRI and Neurology recs noted. FWF increased due to persistent hypernatremia, X1 dose of kayexalate was also given for hyperkalemia, renal function is improvement. Continue to monitor renal function and electrolytes. Insulin was adjusted for hyperglycemia. Plan for possible family conference meeting today with the software quality tester. Neuro: Acute Metabolic Encephalopathy Myoclonic Jerks -Myoclonic jerking aborted with Ativan early in admission but none noted since -Initial CT head showed no acute abnormality -EEG absence of definite epileptiform abnormalities would not rule out the possibility of epilepsy, compatible with moderate to moderately severe diffuse encephalopathy -Repeat CTH shows no acute abnormality -MRI Brain noted -repeat eeg pending -Neurology reconsulted -Avoid delirium -Reorientation as needed -Maintain sleep-wake cycle Cardiac: NAD -Blood pressure monitoring per protocol -s/p vasopressor support with Levophed, dobutamine, vasopressin -MAP goal greater than 65 -Echocardiogram shows LVEF 55 to 60%, normal bivalve function, mildly dilated right ventricle Respiratory: Acute hypoxic respiratory failure ARDS COVID Pneumonia -[facility] consulted, appreciate recommendations -Intubated in the emergency department 04/09 with 7.00 ETT at 22 the lips -Vent setting:PRVC- 45%,7,18,400 -A.m. ABG and CXR noted -CCM consulted, appreciate recommendations -Continue IV Steroids and Nebs per CCM -Continue IV Abx per ID -VAP bundle addressed -Aspiration precaution HOB above 30 -Daily ABG and CXR -Continue SPO2 monitoring for SPO2 goal above 92% : Acute kidney injury likely secondary to ischemic acute tubular necrosis Hypernatremia -FeNa calculated at 0.13 -Renal ultrasound Shows mild echogenic kidneys which can be seen in medical renal disease, no hydronephrosis, small amount of free fluid in the abdomen -Nephrology consulted, appreciate recommendations -FWF Q4hrs for hypernatremia -Strict intake and output -Renally dose medications -Avoid nephrotoxic medications -Daily weights -Monitor and replace electrolytes as needed ID: Septic shock secondary to COVID-19 pneumonia Lactic Acidosis Leukocytosis -Infectious disease consulted, appreciate recommendations -Admit CXR showed bilateral air space opacities -Covid 19 PCR (+) -Antibiotic therapy with Rocephin (04/11-04/15) and vancomycin (04/11-04/14) -Decadron 8 mg daily for 10 days (04/09-04/18) -Now on Cefepine per ID -Per ID: Due to renal failure, not a candidate for remdesivir -S/p Actemra 04/10 -Contact/droplet precautions -f/u blood culture -Monitor WBC and temperature curve -Trend COVID-19 inflammatory markers Endo: h/o DM s/p DKA -S/p insulin drip -Remain hyperglycemic, probably due to IV steroids -SSI and Lantus adjusted -Continue Accu-Cheks every 6 -While critically ill target blood glucose of 140-180 Elevated Ddimer -most likely due to COVID -BLE dopplar US shows no DVT -Continue to trend imflammatory markers -Lovenox subcu -Monitor for signs of bleeding -SCDs to BLE while in bed -Transfuse hemoglobin less than 7 GI: Transaminitis -Presented with elevated LFTs -LTFs still labile -Continue to trend LFTs GI/DVT Prophylaxis -PPI- Pepcid -Lovenox switch to heparin subQ due to ASHLEY -SCDs to bilateral lower extremities while in bed The high probability of a clinically significant, sudden or life threatening deterioration of the [multi] system(s) required my full and direct attention, intervention and personal management. The aggregate critical care time was [60] minutes. This time is in addition to time spent performing reported procedures but includes the following: [x] Data Review and interpretation [x] Patient assessment and monitoring of vital signs [x] Documentation [x] Medication orders and management Disposition Plan: ICU Total Time Spent with Patient (Minutes): 60 History Interval history: Patient seen and examined at the bedside. Remains intubated and on sedation. Mentation is unchanged, GILES overnight Hospitalist Physical - Physical exam Narrative exam: General appearance: Present: no acute distress, well-nourished, obese, other (Intubated and sedated) - EENT Eyes: Present: PERRL ENT: other (Dry oral mucosa) - Neck Neck: Present: normal ROM - Respiratory Respiratory effort: normal Respiratory: bilateral: rhonchi - Cardiovascular Rhythm: regular Heart Sounds: Present: S1 & S2 - Extremities Extremities: no ischemia, pulses intact, pulses symmetrical Extremity abnormal: edema - Peripheral Assessment Bilateral Upper Extremity Edema Type: Pitting Edema Degree: 2+ Capillary Refill: < 3 seconds Skin Temperature: Warm Generalized Edema Type: Non-pitting Edema Degree: 2+ Capillary Refill: < 3 seconds Skin Temperature: Warm Peripheral Pulses: within normal limits - Abdominal General gastrointestinal: soft, non-distended, normal bowel sounds - Integumentary Integumentary: Present: warm, dry - Psychiatric Psychiatric: other (Intubated and sedated) - Neurologic Neurologic: moves all extremities (Non-purposeful movement of BUE, no movement in lower extremities), other (Intubated and sedated. Open eyes spontaneously, but farrar not track nor follow any commands. Pupils are round and reactive) - Allied Health Allied health notes reviewed: nursing, case management - Constitutional Vitals: Temp Pulse Resp BP Pulse Ox 97.9 F 119 H 18 139/68 99 04/17/22 11:29 04/17/22 12:00 04/17/22 12:00 04/17/22 12:00 04/17/22 12:00 HEART Score - HEART Score Age: > 65 Risk factors: 1-2 risk factors Troponin: Troponin T < 0.010 ng/mL (0.00-0.029) 04/09/22 12:52 Troponin: < normal limit - Critical Actions Critical Actions: 4-6 pts:12-16.6% risk of adverse cardiac event. Should be admitted Results - Labs CBC & Chem 7: 04/17/22 05:12 04/17/22 05:12 Labs: Laboratory Last Values WBC 22.2 K/mm3 (4.5-11.0) H 04/17/22 05:12 RBC 3.50 M/mm3 (3.65-5.03) L 04/17/22 05:12 Hgb 10.1 gm/dl (10.1-14.3) 04/17/22 05:12 Hct 30.9 % (30.3-42.9) 04/17/22 05:12 MCV 88 fl (79-97) 04/17/22 05:12 MCH 29 pg (28-32) 04/17/22 05:12 MCHC 33 % (30-34) 04/17/22 05:12 RDW 15.8 % (13.2-15.2) H 04/17/22 05:12 Plt Count 172 K/mm3 (140-440) 04/17/22 05:12 Lymph % (Auto) 5.7 % (13.4-35.0) L 04/12/22 00:01 Phillips % (Auto) 4.5 % (0.0-7.3) 04/12/22 00:01 Eos % (Auto) 0.0 % (0.0-4.3) 04/12/22 00:01 Baso % (Auto) 0.2 % (0.0-1.8) 04/12/22 00:01 Lymph # (Auto) 0.9 K/mm3 (1.2-5.4) L 04/12/22 00:01 Phillips # (Auto) 0.7 K/mm3 (0.0-0.8) 04/12/22 00:01 Eos # (Auto) 0.0 K/mm3 (0.0-0.4) 04/12/22 00:01 Baso # (Auto) 0.0 K/mm3 (0.0-0.1) 04/12/22 00:01 Add Manual Diff Complete 04/10/22 04:24 Total Counted 100 04/10/22 04:24 Seg Neutrophils % 89.6 % (40.0-70.0) H 04/12/22 00:01 Seg Neuts % (Manual) 94.0 % (40.0-70.0) H 04/10/22 04:24 Band Neutrophils % 0 % 04/10/22 04:24 Lymphocytes % (Manual) 3.0 % (13.4-35.0) L 04/10/22 04:24 Reactive Lymphs % (Man) 0 % 04/10/22 04:24 Monocytes % (Manual) 3.0 % (0.0-7.3) 04/10/22 04:24 Eosinophils % (Manual) 0 % (0.0-4.3) 04/10/22 04:24 Basophils % (Manual) 0 % (0.0-1.8) 04/10/22 04:24 Metamyelocytes % 0 % 04/10/22 04:24 Myelocytes % 0 % 04/10/22 04:24 Promyelocytes % 0 % 04/10/22 04:24 Blast Cells % 0 % 04/10/22 04:24 Nucleated RBC % Not Reportable 04/10/22 04:24 Seg Neutrophils # 14.6 K/mm3 (1.8-7.7) H 04/12/22 00:01 Seg Neutrophils # Man 15.4 K/mm3 (1.8-7.7) H 04/10/22 04:24 Band Neutrophils # 0.0 K/mm3 04/10/22 04:24 Lymphocytes # (Manual) 0.5 K/mm3 (1.2-5.4) L 04/10/22 04:24 Abs React Lymphs (Man) 0.0 K/mm3 04/10/22 04:24 Monocytes # (Manual) 0.5 K/mm3 (0.0-0.8) 04/10/22 04:24 Eosinophils # (Manual) 0.0 K/mm3 (0.0-0.4) 04/10/22 04:24 Basophils # (Manual) 0.0 K/mm3 (0.0-0.1) 04/10/22 04:24 Metamyelocytes # 0.0 K/mm3 04/10/22 04:24 Myelocytes # 0.0 K/mm3 04/10/22 04:24 Promyelocytes # 0.0 K/mm3 04/10/22 04:24 Blast Cells # 0.0 K/mm3 04/10/22 04:24 WBC Morphology Not Reportable 04/10/22 04:24 Hypersegmented Neuts Not Reportable 04/10/22 04:24 Hyposegmented Neuts Not Reportable 04/10/22 04:24 Hypogranular Neuts Not Reportable 04/10/22 04:24 Smudge Cells Not Reportable 04/10/22 04:24 Toxic Granulation Not Reportable 04/10/22 04:24 Toxic Vacuolation Not Reportable 04/10/22 04:24 Dohle Bodies Not Reportable 04/10/22 04:24 Pelger-Huet Anomaly Not Reportable 04/10/22 04:24 Aleja Rods Not Reportable 04/10/22 04:24 Platelet Estimate Consistent w auto 04/10/22 04:24 Clumped Platelets Not Reportable 04/10/22 04:24 Plt Clumps, EDTA Not Reportable 04/10/22 04:24 Large Platelets Not Reportable 04/10/22 04:24 Giant Platelets Rare 04/10/22 04:24 Platelet Satelliting Not Reportable 04/10/22 04:24 Plt Morphology Comment Not Reportable 04/10/22 04:24 RBC Morphology Normal 04/10/22 04:24 Dimorphic RBCs Not Reportable 04/10/22 04:24 Polychromasia Not Reportable 04/10/22 04:24 Hypochromasia Not Reportable 04/10/22 04:24 Poikilocytosis Not Reportable 04/10/22 04:24 Anisocytosis Not Reportable 04/10/22 04:24 Microcytosis Not Reportable 04/10/22 04:24 Macrocytosis Not Reportable 04/10/22 04:24 Spherocytes Not Reportable 04/10/22 04:24 Pappenheimer Bodies Not Reportable 04/10/22 04:24 Sickle Cells Not Reportable 04/10/22 04:24 Target Cells Not Reportable 04/10/22 04:24 Tear Drop Cells Not Reportable 04/10/22 04:24 Ovalocytes Not Reportable 04/10/22 04:24 Helmet Cells Not Reportable 04/10/22 04:24 [place] Bodies Not Reportable 04/10/22 04:24 [place] Rings Not Reportable 04/10/22 04:24 Chani Cells Not Reportable 04/10/22 04:24 Bite Cells Not Reportable 04/10/22 04:24 Crenated Cell Not Reportable 04/10/22 04:24 Elliptocytes Not Reportable 04/10/22 04:24 Acanthocytes (Spur) Not Reportable 04/10/22 04:24 Rouleaux Not Reportable 04/10/22 04:24 Hemoglobin C Crystals Not Reportable 04/10/22 04:24 Schistocytes Not Reportable 04/10/22 04:24 Malaria parasites Not Reportable 04/10/22 04:24 Allan Bodies Not Reportable 04/10/22 04:24 Hem Pathologist Commnt No 04/10/22 04:24 PT 14.5 Sec. (12.2-14.9) 04/09/22 12:52 INR 1.02 (0.87-1.13) 04/09/22 12:52 D-Dimer 3804.33 ng/mlDDU (0-234) H 04/17/22 05:12 ABG pH 7.318 pH Units (7.350-7.450) L 04/16/22 02:35 ABG pCO2 55.4 mm Hg 04/16/22 02:35 ABG pO2 71.1 mm Hg (80.0-90.0) L 04/16/22 02:35 ABG HCO3 27.7 mmol/L (20.0-26.0) H 04/16/22 02:35 ABG O2 Saturation 94.8 % (95.0-99.0) L 04/16/22 02:35 ABG O2 Content 13.6 (0.0-44) 04/16/22 02:35 ABG Base Excess 0.9 mmol/L (-2.0-3.0) 04/16/22 02:35 ABG Hemoglobin 10.3 gm/dl (12.0-16.0) L 04/16/22 02:35 ABG Carboxyhemoglobin 1.5 % (0.0-5.0) 04/16/22 02:35 ABG Methemoglobin 0.5 % (0.0-1.5) 04/16/22 02:35 VBG pH 7.303 (7.320-7.420) L 04/09/22 12:52 Oxyhemoglobin 92.9 % (95.0-99.0) L 04/16/22 02:35 FiO2 55 % 04/16/22 02:35 Sodium 149 mmol/L (137-145) H 04/17/22 05:12 Potassium 5.3 mmol/L (3.6-5.0) H 04/17/22 05:12 Chloride 109.4 mmol/L (98-107) H 04/17/22 05:12 Carbon Dioxide 28 mmol/L (22-30) 04/17/22 05:12 Anion Gap 17 mmol/L 04/17/22 05:12 BUN 80 mg/dL (7-17) H 04/17/22 05:12 Creatinine 1.5 mg/dL (0.6-1.2) H 04/17/22 05:12 Estimated GFR 41 ml/min 04/17/22 05:12 BUN/Creatinine Ratio 53 % 04/17/22 05:12 Glucose 320 mg/dL (65-100) H 04/17/22 05:12 POC Glucose 201 mg/dL (70-105) H 04/16/22 00:17 Lactic Acid 2.10 mmol/L (0.7-2.0) H* 04/15/22 12:00 Calcium 8.4 mg/dL (8.4-10.2) 04/17/22 05:12 Phosphorus 3.60 mg/dL (2.5-4.5) 04/14/22 07:28 Magnesium 2.90 mg/dL (1.7-2.3) H 04/14/22 07:28 Ferritin 446.2 ng/mL (10.0-200.0) H 04/16/22 04:00 Total Bilirubin 1.00 mg/dL (0.1-1.2) 04/17/22 05:12 Direct Bilirubin 0.5 mg/dL (0-0.2) H 04/16/22 04:00 Indirect Bilirubin 0.4 mg/dL 04/16/22 04:00 AST 171 units/L (5-40) H 04/17/22 05:12 ALT 231 units/L (7-56) H 04/17/22 05:12 Alkaline Phosphatase 105 units/L (35-129) 04/17/22 05:12 Ammonia 20.0 umol/L (25-60) L 04/09/22 12:52 Lactate Dehydrogenase 1467 units/L (91-180) H 04/16/22 04:00 Troponin T < 0.010 ng/mL (0.00-0.029) 04/09/22 12:52 C-Reactive Protein 1.90 mg/dL (0.00-1.30) H 04/16/22 04:00 NT-Pro-B Natriuret Pep 101.1 pg/mL (0-900) 04/09/22 13:45 Total Protein 5.4 g/dL (6.3-8.2) L 04/17/22 05:12 Albumin 3.7 g/dL (3.9-5) L 04/17/22 05:12 Albumin/Globulin Ratio 2.2 % 04/17/22 05:12 Procalcitonin 3.13 ng/mL (<0.15) 04/10/22 11:47 TSH 1.560 mlU/mL (0.270-4.200) 04/09/22 12:52 Free T4 1.33 ng/dL (0.76-1.46) 04/09/22 12:52 Urine Color Yellow (Yellow) 04/09/22 13:24 Urine Turbidity Clear (Clear) 04/09/22 13:24 Urine pH 5.0 (5.0-7.0) 04/09/22 13:24 Ur Specific [place]on 1.011 (1.003-1.030) 04/09/22 13:24 Urine Protein 30 mg/dl mg/dL (Negative) 04/09/22 13:24 Urine Glucose (UA) Neg mg/dL (Negative) 04/09/22 13:24 Urine Ketones 20 mg/dL (Negative) 04/09/22 13:24 Urine Blood Neg (Negative) 04/09/22 13:24 Urine Nitrite Neg (Negative) 04/09/22 13:24 Urine Bilirubin Neg (Negative) 04/09/22 13:24 Urine Urobilinogen 4.0 mg/dL (<2.0) 04/09/22 13:24 Ur Leukocyte Esterase Neg (Negative) 04/09/22 13:24 Urine WBC (Auto) 2.0 /HPF (0.0-6.0) 04/09/22 13:24 Urine RBC (Auto) < 1.0 /HPF (0.0-6.0) 04/09/22 13:24 U Epithel Cells (Auto) < 1.0 /HPF (0-13.0) 04/09/22 13:24 Urine Mucus Few /HPF 04/09/22 13:24 Urine Eosinophils None seen (None Seen) 04/10/22 14:50 Urine Total Volume 750 ml 04/11/22 11:23 Urine Creatinine 160.5 mg/dL (0.1-20.0) H 04/11/22 11:23 Ur Creatinine 24 Hour 1.2 (0.8-2.8) 04/11/22 11:23 Height (in) Not Reportable 04/11/22 11:23 Weight (lb) Not Reportable 04/11/22 11:23 Creatinine Clearance Not Reportable 04/11/22 11:23 Protein/Creatinin Ratio 0.77 04/10/22 14:50 Urine Sodium 17 mmol/L 04/10/22 14:50 Urine Total Protein 172 mg/dL (5-11.8) H 04/10/22 14:50 Random Vancomycin 11.9 ug/mL (0-40.0) 04/11/22 03:58 Urine Opiates Screen Presumptive negative 04/09/22 22:58 Urine Methadone Screen Presumptive negative 04/09/22 22:58 Ur Barbiturates Screen Presumptive negative 04/09/22 22:58 Ur Phencyclidine Scrn Presumptive negative 04/09/22 22:58 Ur Amphetamines Screen Presumptive negative 04/09/22 22:58 U Benzodiazepines Scrn Presumptive negative 04/09/22 22:58 Urine Cocaine Screen Presumptive negative 04/09/22 22:58 U Marijuana (THC) Screen Presumptive negative 04/09/22 22:58 Drugs of Abuse Note Disclamer 04/09/22 22:58 Coronavirus (PCR) Positive (Negative) A 04/09/22 13:02 Influenza A (RT-PCR) Negative (Negative) 04/09/22 14:15 Influenza B (RT-PCR) Negative (Negative) 04/09/22 14:15 [place]/IV: Voiding Method Indwelling Catheter Active Medications - Current Medications Current Medications: Generic Name Dose Route Start Last Admin Trade Name Freq PRN Reason Stop Dose Admin Acetaminophen 650 mg 04/09/22 18:11 Acetaminophen 325 Mg Tab PO Q4H PRN Pain MILD(1-3)/Fever >100.5/CARCAMO Dexamethasone 8 mg 04/09/22 19:00 04/16/22 18:22 Dexamethasone 4 Mg/Ml Vial IV 04/18/22 19:01 8 mg Q24H JO ANN Administration Dextrose 0 ml 04/10/22 00:40 Dextrose 50% In Water (25gm) 50 Ml Syringe IV Q30MIN PRN Hypoglycemia Protocol Famotidine 10 mg 04/14/22 10:00 04/17/22 11:09 Famotidine 10 Mg Tab FEEDTUBE 10 mg BID JO ANN Administration Fentanyl 50 mcg 04/15/22 09:25 Fentanyl 100 Mcg/2 Ml Inj IV Q10MIN PRN ANALGESIA Heparin Sodium (Porcine) 5,000 unit 04/17/22 10:00 04/17/22 11:09 Heparin 5,000 Unit/1 Ml Vial SUB-Q 5,000 unit Q12HR JO ANN Administration NORepinephrine/NS 8 MG-250 ML 8 mg in 250 mls @ 3.75 mls/hr 04/09/22 16:00 04/11/22 12:01 Norepinephrine/Ns 8 Mg-250 Ml (Double Conc) IV 0 mcg/min TITRATE JO ANN 0 mls/hr Titration Protocol 2 MCG/MIN Fentanyl Citrate 2,000 mcg in 100 mls @ 4.155 mls/hr 04/15/22 10:00 04/17/22 07:45 Fentanyl Drip Premix IV 2 mcg/kg/hr TITR JO ANN 8.31 mls/hr Titration Protocol 1 MCG/KG/HR Cefepime HCl 2 gm in 100 mls @ 200 mls/hr 04/16/22 19:00 04/17/22 07:20 Cefepime/Ns 2 Gm/100 Ml IV 200 mls/hr Q12H JO ANN Administration Protocol Insulin Glargine 25 units 04/17/22 22:00 Insulin Glargine 100 Units/Ml SUB-Q QHS JO ANN Insulin Human Lispro 0 unit 04/12/22 12:00 04/17/22 11:09 Insulin Lispro 100 Unit/Ml SUB-Q 8 unit Q6HR JO ANN Administration Protocol Ondansetron HCl 4 mg 04/09/22 18:11 Ondansetron 4 Mg/2 Ml Inj IV Q8H PRN Nausea And Vomiting Senna/Docusate Sodium 2 tab 04/15/22 14:00 04/17/22 11:09 Sennosides/Docusate Sodium 8.6/50 Mg Tab FEEDTUBE 2 tab BID JO ANN Administration Sodium Chloride 10 ml 04/09/22 22:00 04/17/22 11:10 Sodium Chloride 0.9% 10 Ml Flush Syringe IV 10 ml BID JO ANN Administration Sodium Chloride 10 ml 04/09/22 18:11 Sodium Chloride 0.9% 10 Ml Flush Syringe IV PRN PRN LINE FLUSH Nutrition/Malnutrition Assess - Dietary Evaluation Nutrition/Malnutrition Findings: Nutrition Notes Start: 04/12/22 10:07 Freq: Status: Active Protocol: Document 04/15/22 15:18 RYDER (Rec: 04/15/22 15:23 SCJONATHON [id number]) Nutrition Notes Initial or Follow up Reassessment Current Diagnosis Acute Kidney Injury,Diabetes, Sepsis,Respiratory Failure Other Pertinent Diagnosis AMS, Bilat pneu, COVID-19 (+), Hypotension Current Diet TF - Glucerna 1.2 at 55ml/hr Labs/Tests Na 146 BUN 76 Cr 1.9 BG 214 Pertinent Medications Propofol at 9.972ml/hr ( provides 263 kcal) Height 5 ft 7 in Weight 83.1 kg [place] Body Weight (kg) 61.36 BMI 28.7 Weight change and time frame 98% energy 79% pro Weight Status Overweight Subjective/Other Information Pt remains on vent support; not on pressor support at this time. Renal function being monitored closely. Observed TF infusing at goal rate. Burn Absent Trauma Absent #1 Nutrition Diagnosis Inadequate oral intake As Evidenced by Signs and Symptoms EN support continues Diagnosis Progress(for reassessment Continues documentation) Is patient on ventilator? Yes Is Patient Ambulatory and/or Out of Bed No REE-([place]. Jeor-confined to bed) 5709.836 Calculation Used [facility]ations [facility] Additional Notes Pro needs 1.2-2g/k-166g/ day Fluid needs 1ml/kcal Nutrition Intervention Nutrition Support: Continue Glucerna 1.2 at 55ml/ hr with 100ml water flush q4h. Kcal 1,584 Protein (gm) 79 Carbohydrates (gm) 151 Fat (gm) 79 Fluid (mL) 1,063 Fiber (gm) 21 Goal #1 TF tolerance Goal #2 TF to meet at least 75% energy and pro needs Follow-Up By: 04/22/22 Additional Comments F/U: stable TF, vent status, renal function, propofol <JS HAIDER - Last Filed: 04/18/22 07:06> Assessment and Plan Assessment and plan: I saw and evaluated the patient. I agree with the findings and the plan of care as documented in the Nurse Practitioner's~note, with the following corrections and additions. Family updated of the clinical condition. Mental status with no clear improvement at this time. Family will like to proceed with Trach and PEG placement Hospitalist Physical - Constitutional Vitals: Temp Pulse Resp BP Pulse Ox 98 F 117 H 18 135/58 100 04/18/22 04:00 04/18/22 06:01 04/18/22 06:01 04/18/22 06:01 04/18/22 06:01 HEART Score - HEART Score Troponin: Troponin T < 0.010 ng/mL (0.00-0.029) 04/09/22 12:52 Results - Labs CBC & Chem 7: 04/18/22 05:41 04/18/22 05:41 Labs: Laboratory Last Values WBC 19.6 K/mm3 (4.5-11.0) H 04/18/22 05:41 RBC 3.38 M/mm3 (3.65-5.03) L 04/18/22 05:41 Hgb 9.7 gm/dl (10.1-14.3) L 04/18/22 05:41 Hct 29.5 % (30.3-42.9) L 04/18/22 05:41 MCV 87 fl (79-97) 04/18/22 05:41 MCH 29 pg (28-32) 04/18/22 05:41 MCHC 33 % (30-34) 04/18/22 05:41 RDW 15.9 % (13.2-15.2) H 04/18/22 05:41 Plt Count 142 K/mm3 (140-440) 04/18/22 05:41 Lymph % (Auto) 5.7 % (13.4-35.0) L 04/12/22 00:01 Phillips % (Auto) 4.5 % (0.0-7.3) 04/12/22 00:01 Eos % (Auto) 0.0 % (0.0-4.3) 04/12/22 00:01 Baso % (Auto) 0.2 % (0.0-1.8) 04/12/22 00:01 Lymph # (Auto) 0.9 K/mm3 (1.2-5.4) L 04/12/22 00:01 Phillips # (Auto) 0.7 K/mm3 (0.0-0.8) 04/12/22 00:01 Eos # (Auto) 0.0 K/mm3 (0.0-0.4) 04/12/22 00:01 Baso # (Auto) 0.0 K/mm3 (0.0-0.1) 04/12/22 00:01 Add Manual Diff Complete 04/10/22 04:24 Total Counted 100 04/10/22 04:24 Seg Neutrophils % 89.6 % (40.0-70.0) H 04/12/22 00:01 Seg Neuts % (Manual) 94.0 % (40.0-70.0) H 04/10/22 04:24 Band Neutrophils % 0 % 04/10/22 04:24 Lymphocytes % (Manual) 3.0 % (13.4-35.0) L 04/10/22 04:24 Reactive Lymphs % (Man) 0 % 04/10/22 04:24 Monocytes % (Manual) 3.0 % (0.0-7.3) 04/10/22 04:24 Eosinophils % (Manual) 0 % (0.0-4.3) 04/10/22 04:24 Basophils % (Manual) 0 % (0.0-1.8) 04/10/22 04:24 Metamyelocytes % 0 % 04/10/22 04:24 Myelocytes % 0 % 04/10/22 04:24 Promyelocytes % 0 % 04/10/22 04:24 Blast Cells % 0 % 04/10/22 04:24 Nucleated RBC % Not Reportable 04/10/22 04:24 Seg Neutrophils # 14.6 K/mm3 (1.8-7.7) H 04/12/22 00:01 Seg Neutrophils # Man 15.4 K/mm3 (1.8-7.7) H 04/10/22 04:24 Band Neutrophils # 0.0 K/mm3 04/10/22 04:24 Lymphocytes # (Manual) 0.5 K/mm3 (1.2-5.4) L 04/10/22 04:24 Abs React Lymphs (Man) 0.0 K/mm3 04/10/22 04:24 Monocytes # (Manual) 0.5 K/mm3 (0.0-0.8) 04/10/22 04:24 Eosinophils # (Manual) 0.0 K/mm3 (0.0-0.4) 04/10/22 04:24 Basophils # (Manual) 0.0 K/mm3 (0.0-0.1) 04/10/22 04:24 Metamyelocytes # 0.0 K/mm3 04/10/22 04:24 Myelocytes # 0.0 K/mm3 04/10/22 04:24 Promyelocytes # 0.0 K/mm3 04/10/22 04:24 Blast Cells # 0.0 K/mm3 04/10/22 04:24 WBC Morphology Not Reportable 04/10/22 04:24 Hypersegmented Neuts Not Reportable 04/10/22 04:24 Hyposegmented Neuts Not Reportable 04/10/22 04:24 Hypogranular Neuts Not Reportable 04/10/22 04:24 Smudge Cells Not Reportable 04/10/22 04:24 Toxic Granulation Not Reportable 04/10/22 04:24 Toxic Vacuolation Not Reportable 04/10/22 04:24 Dohle Bodies Not Reportable 04/10/22 04:24 Pelger-Huet Anomaly Not Reportable 04/10/22 04:24 Aleja Rods Not Reportable 04/10/22 04:24 Platelet Estimate Consistent w auto 04/10/22 04:24 Clumped Platelets Not Reportable 04/10/22 04:24 Plt Clumps, EDTA Not Reportable 04/10/22 04:24 Large Platelets Not Reportable 04/10/22 04:24 Giant Platelets Rare 04/10/22 04:24 Platelet Satelliting Not Reportable 04/10/22 04:24 Plt Morphology Comment Not Reportable 04/10/22 04:24 RBC Morphology Normal 04/10/22 04:24 Dimorphic RBCs Not Reportable 04/10/22 04:24 Polychromasia Not Reportable 04/10/22 04:24 Hypochromasia Not Reportable 04/10/22 04:24 Poikilocytosis Not Reportable 04/10/22 04:24 Anisocytosis Not Reportable 04/10/22 04:24 Microcytosis Not Reportable 04/10/22 04:24 Macrocytosis Not Reportable 04/10/22 04:24 Spherocytes Not Reportable 04/10/22 04:24 Pappenheimer Bodies Not Reportable 04/10/22 04:24 Sickle Cells Not Reportable 04/10/22 04:24 Target Cells Not Reportable 04/10/22 04:24 Tear Drop Cells Not Reportable 04/10/22 04:24 Ovalocytes Not Reportable 04/10/22 04:24 Helmet Cells Not Reportable 04/10/22 04:24 [place] Bodies Not Reportable 04/10/22 04:24 [place] Rings Not Reportable 04/10/22 04:24 [place] Cells Not Reportable 04/10/22 04:24 Bite Cells Not Reportable 04/10/22 04:24 Crenated Cell Not Reportable 04/10/22 04:24 Elliptocytes Not Reportable 04/10/22 04:24 Acanthocytes (Spur) Not Reportable 04/10/22 04:24 Rouleaux Not Reportable 04/10/22 04:24 Hemoglobin C Crystals Not Reportable 04/10/22 04:24 Schistocytes Not Reportable 04/10/22 04:24 Malaria parasites Not Reportable 04/10/22 04:24 [place] Bodies Not Reportable 04/10/22 04:24 Hem Pathologist Commnt No 04/10/22 04:24 PT 14.5 Sec. (12.2-14.9) 04/09/22 12:52 INR 1.02 (0.87-1.13) 04/09/22 12:52 D-Dimer 3804.33 ng/mlDDU (0-234) H 04/17/22 05:12 ABG pH 7.318 pH Units (7.350-7.450) L 04/16/22 02:35 ABG pCO2 55.4 mm Hg 04/16/22 02:35 ABG pO2 71.1 mm Hg (80.0-90.0) L 04/16/22 02:35 ABG HCO3 27.7 mmol/L (20.0-26.0) H 04/16/22 02:35 ABG O2 Saturation 94.8 % (95.0-99.0) L 04/16/22 02:35 ABG O2 Content 13.6 (0.0-44) 04/16/22 02:35 ABG Base Excess 0.9 mmol/L (-2.0-3.0) 04/16/22 02:35 ABG Hemoglobin 10.3 gm/dl (12.0-16.0) L 04/16/22 02:35 ABG Carboxyhemoglobin 1.5 % (0.0-5.0) 04/16/22 02:35 ABG Methemoglobin 0.5 % (0.0-1.5) 04/16/22 02:35 VBG pH 7.303 (7.320-7.420) L 04/09/22 12:52 Oxyhemoglobin 92.9 % (95.0-99.0) L 04/16/22 02:35 FiO2 55 % 04/16/22 02:35 Sodium 156 mmol/L (137-145) H 04/18/22 05:41 Potassium 4.9 mmol/L (3.6-5.0) 04/18/22 05:41 Chloride 117.8 mmol/L (98-107) H 04/18/22 05:41 Carbon Dioxide 30 mmol/L (22-30) 04/18/22 05:41 Anion Gap 13 mmol/L 04/18/22 05:41 BUN 69 mg/dL (7-17) H 04/18/22 05:41 Creatinine 1.3 mg/dL (0.6-1.2) H 04/18/22 05:41 Estimated GFR 48 ml/min 04/18/22 05:41 BUN/Creatinine Ratio 53 % 04/18/22 05:41 Glucose 231 mg/dL (65-100) H 04/18/22 05:41 POC Glucose 210 mg/dL (70-105) H 04/18/22 06:09 Lactic Acid 2.10 mmol/L (0.7-2.0) H* 04/15/22 12:00 Calcium 8.3 mg/dL (8.4-10.2) L 04/18/22 05:41 Phosphorus 3.60 mg/dL (2.5-4.5) 04/14/22 07:28 Magnesium 2.90 mg/dL (1.7-2.3) H 04/14/22 07:28 Ferritin 570.8 ng/mL (10.0-200.0) H 04/18/22 05:41 Total Bilirubin 1.00 mg/dL (0.1-1.2) 04/17/22 05:12 Direct Bilirubin 0.5 mg/dL (0-0.2) H 04/16/22 04:00 Indirect Bilirubin 0.4 mg/dL 04/16/22 04:00 AST 171 units/L (5-40) H 04/17/22 05:12 ALT 231 units/L (7-56) H 04/17/22 05:12 Alkaline Phosphatase 105 units/L (35-129) 04/17/22 05:12 Ammonia 20.0 umol/L (25-60) L 04/09/22 12:52 Lactate Dehydrogenase 1473 units/L (91-180) H 04/18/22 05:41 Troponin T < 0.010 ng/mL (0.00-0.029) 04/09/22 12:52 C-Reactive Protein 1.90 mg/dL (0.00-1.30) H 04/16/22 04:00 NT-Pro-B Natriuret Pep 101.1 pg/mL (0-900) 04/09/22 13:45 Total Protein 5.4 g/dL (6.3-8.2) L 04/17/22 05:12 Albumin 3.7 g/dL (3.9-5) L 04/17/22 05:12 Albumin/Globulin Ratio 2.2 % 04/17/22 05:12 Procalcitonin 3.13 ng/mL (<0.15) 04/10/22 11:47 TSH 1.560 mlU/mL (0.270-4.200) 04/09/22 12:52 Free T4 1.33 ng/dL (0.76-1.46) 04/09/22 12:52 Urine Color Yellow (Yellow) 04/09/22 13:24 Urine Turbidity Clear (Clear) 04/09/22 13:24 Urine pH 5.0 (5.0-7.0) 04/09/22 13:24 Ur Specific [place] 1.011 (1.003-1.030) 04/09/22 13:24 Urine Protein 30 mg/dl mg/dL (Negative) 04/09/22 13:24 Urine Glucose (UA) Neg mg/dL (Negative) 04/09/22 13:24 Urine Ketones 20 mg/dL (Negative) 04/09/22 13:24 Urine Blood Neg (Negative) 04/09/22 13:24 Urine Nitrite Neg (Negative) 04/09/22 13:24 Urine Bilirubin Neg (Negative) 04/09/22 13:24 Urine Urobilinogen 4.0 mg/dL (<2.0) 04/09/22 13:24 Ur Leukocyte Esterase Neg (Negative) 04/09/22 13:24 Urine WBC (Auto) 2.0 /HPF (0.0-6.0) 04/09/22 13:24 Urine RBC (Auto) < 1.0 /HPF (0.0-6.0) 04/09/22 13:24 U Epithel Cells (Auto) < 1.0 /HPF (0-13.0) 04/09/22 13:24 Urine Mucus Few /HPF 04/09/22 13:24 Urine Eosinophils None seen (None Seen) 04/10/22 14:50 Urine Total Volume 750 ml 04/11/22 11:23 Urine Creatinine 160.5 mg/dL (0.1-20.0) H 04/11/22 11:23 Ur Creatinine 24 Hour 1.2 (0.8-2.8) 04/11/22 11:23 Height (in) Not Reportable 04/11/22 11:23 Weight (lb) Not Reportable 04/11/22 11:23 Creatinine Clearance Not Reportable 04/11/22 11:23 Protein/Creatinin Ratio 0.77 04/10/22 14:50 Urine Sodium 17 mmol/L 04/10/22 14:50 Urine Total Protein 172 mg/dL (5-11.8) H 04/10/22 14:50 Random Vancomycin 11.9 ug/mL (0-40.0) 04/11/22 03:58 Urine Opiates Screen Presumptive negative 04/09/22 22:58 Urine Methadone Screen Presumptive negative 04/09/22 22:58 Ur Barbiturates Screen Presumptive negative 04/09/22 22:58 Ur Phencyclidine Scrn Presumptive negative 04/09/22 22:58 Ur Amphetamines Screen Presumptive negative 04/09/22 22:58 U Benzodiazepines Scrn Presumptive negative 04/09/22 22:58 Urine Cocaine Screen Presumptive negative 04/09/22 22:58 U Marijuana (THC) Screen Presumptive negative 04/09/22 22:58 Drugs of Abuse Note Disclamer 04/09/22 22:58 Coronavirus (PCR) Positive (Negative) A 04/09/22 13:02 Influenza A (RT-PCR) Negative (Negative) 04/09/22 14:15 Influenza B (RT-PCR) Negative (Negative) 04/09/22 14:15 Microbiology: Microbiology 04/17/22 18:14 Peripheral/Venous Blood Culture - Preliminary Culture in Progress 04/17/22 18:14 Peripheral/Venous Blood Culture - Preliminary Culture in Progress [place]/IV: Voiding Method Indwelling Catheter Active Medications - Current Medications Current Medications: Generic Name Dose Route Start Last Admin Trade Name Freq PRN Reason Stop Dose Admin Acetaminophen 650 mg 04/09/22 18:11 Acetaminophen 325 Mg Tab PO Q4H PRN Pain MILD(1-3)/Fever >100.5/CARCAMO Dexamethasone 8 mg 04/09/22 19:00 04/17/22 18:25 Dexamethasone 4 Mg/Ml Vial IV 04/18/22 19:01 8 mg Q24H JO ANN Administration Dextrose 0 ml 04/10/22 00:40 Dextrose 50% In Water (25gm) 50 Ml Syringe IV Q30MIN PRN Hypoglycemia Protocol Famotidine 10 mg 04/14/22 10:00 04/17/22 21:08 Famotidine 10 Mg Tab FEEDTUBE 10 mg BID JO ANN Administration Fentanyl 50 mcg 04/15/22 09:25 Fentanyl 100 Mcg/2 Ml Inj IV Q10MIN PRN ANALGESIA Heparin Sodium (Porcine) 5,000 unit 04/17/22 10:00 04/17/22 22:05 Heparin 5,000 Unit/1 Ml Vial SUB-Q 5,000 unit Q12HR JO ANN Administration NORepinephrine/NS 8 MG-250 ML 8 mg in 250 mls @ 3.75 mls/hr 04/09/22 16:00 04/11/22 12:01 Norepinephrine/Ns 8 Mg-250 Ml (Double Conc) IV 0 mcg/min TITRATE JO ANN 0 mls/hr Titration Protocol 2 MCG/MIN Fentanyl Citrate 2,000 mcg in 100 mls @ 4.155 mls/hr 04/15/22 10:00 04/18/22 03:15 Fentanyl Drip Premix IV 2 mcg/kg/hr TITR JO ANN 8.31 mls/hr Administration Protocol 1 MCG/KG/HR Cefepime HCl 2 gm in 100 mls @ 200 mls/hr 04/16/22 19:00 04/18/22 06:57 Cefepime/Ns 2 Gm/100 Ml IV 200 mls/hr Q12H JO ANN Administration Protocol Dextrose 1,000 mls @ 50 mls/hr 04/17/22 14:00 04/17/22 14:36 D5w IV 04/18/22 09:59 50 mls/hr ONCE@1400 ONE Administration Insulin Glargine 30 units 04/17/22 22:00 04/17/22 22:06 Insulin Glargine 100 Units/Ml SUB-Q 30 units QHS JO ANN Administration Insulin Human Lispro 0 unit 04/17/22 20:00 04/18/22 06:28 Insulin Lispro 100 Unit/Ml SUB-Q 4 unit Q4HR JO ANN Administration Protocol Ondansetron HCl 4 mg 04/09/22 18:11 Ondansetron 4 Mg/2 Ml Inj IV Q8H PRN Nausea And Vomiting Senna/Docusate Sodium 2 tab 04/15/22 14:00 04/17/22 21:07 Sennosides/Docusate Sodium 8.6/50 Mg Tab FEEDTUBE Not Given BID JO ANN Sodium Chloride 10 ml 04/09/22 22:00 04/17/22 21:08 Sodium Chloride 0.9% 10 Ml Flush Syringe IV 10 ml BID JO ANN Administration Sodium Chloride 10 ml 04/09/22 18:11 Sodium Chloride 0.9% 10 Ml Flush Syringe IV PRN PRN LINE FLUSH Nutrition/Malnutrition Assess - Dietary Evaluation Nutrition/Malnutrition Findings: Nutrition Notes Start: 04/12/22 10:07 Freq: Status: Active Protocol: Document 04/15/22 15:18 [facility] (Rec: 04/15/22 15:23 [facility] [id number]) Nutrition Notes Initial or Follow up Reassessment Current Diagnosis Acute Kidney Injury,Diabetes, Sepsis,Respiratory Failure Other Pertinent Diagnosis AMS, Bilat pneu, COVID-19 (+), Hypotension Current Diet TF - Glucerna 1.2 at 55ml/hr Labs/Tests Na 146 BUN 76 Cr 1.9 BG 214 Pertinent Medications Propofol at 9.972ml/hr ( provides 263 kcal) Height 5 ft 7 in Weight 83.1 kg [place] Body Weight (kg) 61.36 BMI 28.7 Weight change and time frame 98% energy 79% pro Weight Status Overweight Subjective/Other Information Pt remains on vent support; not on pressor support at this time. Renal function being monitored closely. Observed TF infusing at goal rate. Burn Absent Trauma Absent #1 Nutrition Diagnosis Inadequate oral intake As Evidenced by Signs and Symptoms EN support continues Diagnosis Progress(for reassessment Continues documentation) Is patient on ventilator? Yes Is Patient Ambulatory and/or Out of Bed No REE-([facility]-confined to bed) [phone] Calculation Used for Recommendations [facility] Additional Notes Pro needs 1.2-2g/k-166g/ day Fluid needs 1ml/kcal Nutrition Intervention Nutrition Support: Continue Glucerna 1.2 at 55ml/ hr with 100ml water flush q4h. Kcal 1,584 Protein (gm) 79 Carbohydrates (gm) 151 Fat (gm) 79 Fluid (mL) 1,063 Fiber (gm) 21 Goal #1 TF tolerance Goal #2 TF to meet at least 75% energy and pro needs Follow-Up By: 04/22/22 Additional Comments F/U: stable TF, vent status, renal function, propofol
--- NOTE | 2022-04-17 12:55 | Progress Note ---
Assessment and Plan Cultures: SARS CoV2 PCR: Positive Influenza PCR: Negative 04/09/2022 blood culture: no growth. 04/09/2022 resp culture: Usual respiratory catherine A/P: 77-year-old female with diabetes, history of ovarian cancer believed to be in remission was admitted with altered mental status: #Septic shock, probably secondary to severe COVID-19. ABG showed severe acidosis. UA without pyuria. Chest x-ray showed bilateral airspace opacities. Off pressors now. #Bilateral pneumonia: Secondary to COVID-19. Unvaccinated. Actemra administered 04/10/2022. CRP 11.3, procalcitonin 3.3, ferritin 1218, LDH 482. #Acute hypoxic respiratory failure: Requiring mechanical ventilation. #ASHLEY: Renally adjust antibiotics. #Transaminitis #Acute encephalopathy: Neurology following. Recs: -IV/PO Dexamethasone x 10 days -Due to renal failure, not a candidate for Remdesivir -S/p Actemra 04/10/2022 -prophylactic anticoagulation based on d-dimer per hospital protocol -Whie count increasing now off antibioitcs. No change in steroids. Remains afebrile. Continue cefepime -Check new blood and respiratory cultures -trend ferritin, d-dimer, CRP every 2-3 days -Guarded prognosis Laura Sahu MD [facility] ([facility] O: [phone] F: [phone] Subjective Date of service: 04/17/22 Principal diagnosis: ASHLEY Interval history: Afebrile, white count is elevated at 22.2. Imaging personally reviewed: Brain MRI: Mild microvascular angiopathy, no acute infarction. Objective - Exam Narrative Exam: Physical Exam: Constitutional: sedated, intubated, on the vent Head, Ears, Nose: Normocephalic, atraumatic. External ears, nose normal Eyes: Conjunctivae/corneas clear. No icterus. No ptosis. Neck: intubated Oral: intubated Cardiovascular: S1, S2 + Respiratory: AE fair bilaterally and equal GI: Soft, bowel sounds + Musculoskeletal: No pedal edema, no cyanosis. Skin: No rash or abscess Hem/Lymphatic: No palpable cervical or supraclavicular nodes. Psych: no agitation Neurological: sedated, intubated, on the vent, exam limited - Constitutional Vitals: Vital Signs Temp Pulse Resp BP Pulse Ox 97.9 F 119 H 18 139/68 99 04/17/22 11:29 04/17/22 12:00 04/17/22 12:00 04/17/22 12:00 04/17/22 12:00 Temperature -Last 24 Hours Temperature 97.9 F Temperature 97.9 F Temperature 98.5 F Temperature 98.8 F Temperature 97.8 F Temperature 98.1 F Temperature 97.7 F - Labs CBC & Chem 7: 04/17/22 05:12 04/17/22 05:12 Labs: Abnormal lab results 04/17/22 04/17/22 04/17/22 Range/Units 05:12 05:12 05:12 WBC 22.2 H (4.5-11.0) K/mm3 RBC 3.50 L (3.65-5.03) M/mm3 RDW 15.8 H (13.2-15.2) % D-Dimer 3804.33 H (0-234) ng/mlDDU Sodium 149 H (137-145) mmol/L Potassium 5.3 H (3.6-5.0) mmol/L Chloride 109.4 H (98-107) mmol/L BUN 80 H (7-17) mg/dL Creatinine 1.5 H (0.6-1.2) mg/dL Glucose 320 H (65-100) mg/dL AST 171 H (5-40) units/L ALT 231 H (7-56) units/L Total Protein 5.4 L (6.3-8.2) g/dL Albumin 3.7 L (3.9-5) g/dL
--- NOTE | 2022-04-17 13:02 | Progress Note ---
Assessment and Plan Assessment: Acute Renal Failure likely secondary to Ischemic ATN due to Sepsis and Hypotenison COVID positive Sepsis Hypotension Diabetes Mellitus/DKA Acute Respiratory Failure Hypokalemia, now Hyperkalemic Metabolic Acidosis Hypophosphatemia Plan: Renal labs reviewed. Serum creatinine 1.5 today, yesterday's was 1.7. BUN rising at 80 today, yesterday's was 84. UOP was 3085 ml. Baseline serum creatinine unknown. Creatinine clearance on 04/11/22 was 24 ml/min Renal ultrasound- no obstruction Hypernatremia-Sodium 149 today. Start D5W@ 50 ml/hr x 1 bag. Increase Free water 400 ml every 4 hours via tube feeds Hyperkalemia, mild- Kionex 30 gram via feed tube x 1 COVID positive-as per ID Renally dose medications Obtain daily weights Monitor I/O's daily Will continue to monitor renal function closely Plan of care reviewed by Dr. Lang Subjective Date of service: 04/17/22 Principal diagnosis: ASHLEY Interval history: Patient seen lying in bed. Intubated. Eyes open. No family at bedside. Objective - Vital Signs Vital signs: Vital Signs - 12hr 04/17/22 04/17/22 04/17/22 01:00 02:00 03:00 Temperature Pulse Rate 108 H 112 H 112 H Pulse Rate [ From Monitor] Respiratory 17 19 18 Rate Blood Pressure 135/72 136/71 141/71 O2 Sat by Pulse 98 99 99 Oximetry 04/17/22 04/17/22 04/17/22 03:19 04:00 05:00 Temperature 98.5 F Pulse Rate 113 H 110 H Pulse Rate [ 113 H From Monitor] Respiratory 18 17 Rate Blood Pressure 135/75 144/74 O2 Sat by Pulse 99 97 Oximetry 04/17/22 04/17/22 04/17/22 06:00 07:00 07:28 Temperature Pulse Rate 117 H 118 H 116 H Pulse Rate [ From Monitor] Respiratory 19 20 Rate Blood Pressure 135/67 133/71 138/73 O2 Sat by Pulse 98 99 98 Oximetry 04/17/22 04/17/22 04/17/22 07:44 08:00 09:00 Temperature 97.9 F Pulse Rate 118 H 118 H Pulse Rate [ 118 H From Monitor] Respiratory 18 16 Rate Blood Pressure 134/69 137/70 O2 Sat by Pulse 98 98 Oximetry 04/17/22 04/17/22 04/17/22 10:00 11:00 11:29 Temperature 97.9 F Pulse Rate 117 H 120 H Pulse Rate [ From Monitor] Respiratory 18 19 Rate Blood Pressure 141/68 136/71 O2 Sat by Pulse 99 99 Oximetry 04/17/22 04/17/22 11:47 12:00 Temperature Pulse Rate 120 H 119 H Pulse Rate [ From Monitor] Respiratory 18 Rate Blood Pressure 158/83 139/68 O2 Sat by Pulse 99 99 Oximetry - General Appearance General appearance: obese, intubated EENT: other (Eyes open) Neck: no JVD Respiratory: Present: Decreased Breath Sounds, Other (Intubated) Cardiology: S1S2 Gastrointestinal: normoactive bowel sounds, other (Has NG tube feeds) Integumentary: warm and dry Neurologic: other (Eyes open. Inutbated. ) Musculoskeletal: other (Has 1+ edema to BLE) - Lab 04/17/22 05:12 04/17/22 05:12 Most recent lab results ABG pH 7.318 pH Units (7.350-7.450) L 04/16/22 02:35 ABG pCO2 55.4 mm Hg 04/16/22 02:35 ABG pO2 71.1 mm Hg (80.0-90.0) L 04/16/22 02:35 ABG HCO3 27.7 mmol/L (20.0-26.0) H 04/16/22 02:35 ABG O2 Saturation 94.8 % (95.0-99.0) L 04/16/22 02:35 Calcium 8.4 mg/dL (8.4-10.2) 04/17/22 05:12 Phosphorus 3.60 mg/dL (2.5-4.5) 04/14/22 07:28 Magnesium 2.90 mg/dL (1.7-2.3) H 04/14/22 07:28 Urine Creatinine 160.5 mg/dL (0.1-20.0) H 04/11/22 11:23 Urine Sodium 17 mmol/L 04/10/22 14:50 Urine Total Protein 172 mg/dL (5-11.8) H 04/10/22 14:50 Medications & Allergies - Medications Allergies/Adverse Reactions: Allergies No Known Allergies Allergy (Verified 04/09/22 13:44) Active Medications: Generic Name Dose Route Start Last Admin Trade Name Freq PRN Reason Stop Dose Admin Acetaminophen 650 mg 04/09/22 18:11 Acetaminophen 325 Mg Tab PO Q4H PRN Pain MILD(1-3)/Fever >100.5/[place] Dexamethasone 8 mg 04/09/22 19:00 04/16/22 18:22 Dexamethasone 4 Mg/Ml Vial IV 04/18/22 19:01 8 mg Q24H JO ANN Administration Dextrose 0 ml 04/10/22 00:40 Dextrose 50% In Water (25gm) 50 Ml Syringe IV Q30MIN PRN Hypoglycemia Protocol Famotidine 10 mg 04/14/22 10:00 04/17/22 11:09 Famotidine 10 Mg Tab FEEDTUBE 10 mg BID JO ANN Administration Fentanyl 50 mcg 04/15/22 09:25 Fentanyl 100 Mcg/2 Ml Inj IV Q10MIN PRN ANALGESIA Heparin Sodium (Porcine) 5,000 unit 04/17/22 10:00 04/17/22 11:09 Heparin 5,000 Unit/1 Ml Vial SUB-Q 5,000 unit Q12HR JO ANN Administration NORepinephrine/NS 8 MG-250 ML 8 mg in 250 mls @ 3.75 mls/hr 04/09/22 16:00 04/11/22 12:01 Norepinephrine/Ns 8 Mg-250 Ml (Double Conc) IV 0 mcg/min TITRATE JO ANN 0 mls/hr Titration Protocol 2 MCG/MIN Fentanyl Citrate 2,000 mcg in 100 mls @ 4.155 mls/hr 04/15/22 10:00 04/17/22 07:45 Fentanyl Drip Premix IV 2 mcg/kg/hr TITR JO ANN 8.31 mls/hr Titration Protocol 1 MCG/KG/HR Cefepime HCl 2 gm in 100 mls @ 200 mls/hr 04/16/22 19:00 04/17/22 07:20 Cefepime/Ns 2 Gm/100 Ml IV 200 mls/hr Q12H JO ANN Administration Protocol Insulin Glargine 25 units 04/17/22 22:00 Insulin Glargine 100 Units/Ml SUB-Q QHS JO ANN Insulin Human Lispro 0 unit 04/12/22 12:00 04/17/22 11:09 Insulin Lispro 100 Unit/Ml SUB-Q 8 unit Q6HR JO ANN Administration Protocol Ondansetron HCl 4 mg 04/09/22 18:11 Ondansetron 4 Mg/2 Ml Inj IV Q8H PRN Nausea And Vomiting Senna/Docusate Sodium 2 tab 04/15/22 14:00 04/17/22 11:09 Sennosides/Docusate Sodium 8.6/50 Mg Tab FEEDTUBE 2 tab BID JO ANN Administration Sodium Chloride 10 ml 04/09/22 22:00 04/17/22 11:10 Sodium Chloride 0.9% 10 Ml Flush Syringe IV 10 ml BID JO ANN Administration Sodium Chloride 10 ml 04/09/22 18:11 Sodium Chloride 0.9% 10 Ml Flush Syringe IV PRN PRN LINE FLUSH
--- NOTE | 2022-04-17 13:03 | Progress Note ---
Assessment and Plan 77 y/o female with multisystem organ failure, COVID positive 04/17/22: Continue PEEP at 10. Down to 45%. Do not see a blood gas from this morning. Neurology saw this am. MRI negative. Family meeting today at 1330. Guarded to poor prognosis. 04/16/22: Continue PEEP at 10 until FiO2 is at 40-45% and sats >92%. Then can start to wean. Just on Fent now, continue bowel regimen. Tolerating tube feeds. Discussed with [employer] on rounds, neurology was seeing but no further notes, no objection to consulting neuro who is here this week, whoever that is. Patient may need MRI as she has had two negative head CT's and still no real explanation for acute change in mental state. Plan to meet/talk with son tomorrow about next steps and goals of care. Prognosis remains guarded to now poor given no improvement in mental state. 04/15/22: Hold on any further fluids or lasix. If hypotensive, will add pressors. Continue PEEP at 10. Same acceptable parameters as below for sats and PaO2 as pH. Continue pain control and sedation. Added bowel regimen. Prognosis is still guarded to poor. 04/14/22: Hold on any further lasix. Please do not give any fluids, will see if she re equilbrates on her own. Increase PEEP to 8. Will get head CT today. Patient is now in full blown ARDS from COVID. Increased PEEP to 8 and dropped TV to 400. pH of >7.15 and PaO2 >55 are acceptable. Repeat gas at 1600 today. 04/13/22: Renal function continues to improve and urine output improving as well. Given CXR findings will give lasix 40mg IV x1 today. Repeat CXR tomorrow. Off insulin drip and tolerating feeds. Hold on CT head today but if no improvement or worsening clinical state tomorrow, will repeat. Spoke with family on phone yesterday. Guarded prognosis. 04/12/22: Improved mental state. Feed patient today and stop IVF's and attempt to get off of insulin drip. Dropped Peep to 6. Wean FiO2 for sats >88%. PaO2 of 55 and greater are acceptable. Normal EF on echo. EEG showed diffuse slowing but mental state has improved. Will up date family. 04/11/22: Continue supportive measures. Getting EEG right now. Continue to wea n Pressors for MAPs >65. if able to get to just one pressor, will place NG vs OG and attempt trickle feeds. Follow up echo. Down to 45%, good PaO2. Continue to wean, however mental state would preclude extubation at this time. Await renal eval but would like to stop bicarb now that acidosis is better, however needs free water but this could be given do OG/NG if end up placing, otherwise would just do D5W. If able to place tube and feed, then can attempt to get off insulin drip. Plan to update family after echo and EEG read. 1. Neuro-concern for seizures. EEG pending. Hold on long acting anti-epileptic therapy. Neurology consulted and has seen. patient is not on any continuous s edation at present 2. CV-Cardiovascular collapse on pressors (3). Could benefit from echo. Attem pt volume resuscitation but no improvement. Continue pressors and wean as tolerated for MAPs >65 3. Pulm-intubated, not on sedation. COVID positive but oxygenation is stable. Per documentation, mainly intubated for airway protection given altered level of mental status. Not a candidate for Remdesivir and may not be a candidate for actemra. Continue steroids and low Tidal volume strategy for lung protection with permissive hypercapnea and lower PaO2 (55-60) if needed. 4. Renal- worsening renal function and decrease in urine output. Renal following. May need HD but would likely not tolerate and CRRT or CVVH is not available here. Worsening lactic acidosis as well. 5. GI-hold on feeds given pressor requirement, prophylactic therapy 6. Endo-continue insulin drip for now Overall prognosis is guarded to poor. Will discuss with immediate family today. CCT 31 minutes Subjective Date of service: 04/17/22 Principal diagnosis: ASHLEY Interval history: No acute events. Per neuro mental status is better. To me, its the same. Tachycardic today and LFT's are increasing. Objective Vital Signs - 12hr 04/17/22 04/17/22 04/17/22 01:00 02:00 03:00 Temperature Pulse Rate 108 H 112 H 112 H Pulse Rate [ From Monitor] Respiratory 17 19 18 Rate Blood Pressure 135/72 136/71 141/71 O2 Sat by Pulse 98 99 99 Oximetry 0504/17/22 04/17/22 03:19 04:00 05:00 Temperature 98.5 F Pulse Rate 113 H 110 H Pulse Rate [ 113 H From Monitor] Respiratory 18 17 Rate Blood Pressure 135/75 144/74 O2 Sat by Pulse 99 97 Oximetry 04/17/22 04/17/22 04/17/22 06:00 07:00 07:28 Temperature Pulse Rate 117 H 118 H 116 H Pulse Rate [ From Monitor] Respiratory 19 20 Rate Blood Pressure 135/67 133/71 138/73 O2 Sat by Pulse 98 99 98 Oximetry 04/17/22 04/17/22 04/17/22 07:44 08:00 09:00 Temperature 97.9 F Pulse Rate 118 H 118 H Pulse Rate [ 118 H From Monitor] Respiratory 18 16 Rate Blood Pressure 134/69 137/70 O2 Sat by Pulse 98 98 Oximetry 04/17/22 04/17/22 04/17/22 10:00 11:00 11:29 Temperature 97.9 F Pulse Rate 117 H 120 H Pulse Rate [ From Monitor] Respiratory 18 19 Rate Blood Pressure 141/68 136/71 O2 Sat by Pulse 99 99 Oximetry 04/17/22 04/17/22 11:47 12:00 Temperature Pulse Rate 120 H 119 H Pulse Rate [ From Monitor] Respiratory 18 Rate Blood Pressure 158/83 139/68 O2 Sat by Pulse 99 99 Oximetry Gastrointestinal: normoactive bowel sounds Integumentary: normal CBC and BMP: 04/17/22 05:12 04/17/22 05:12 ABG, PT/INR, D-dimer: ABG ABG pH 7.318 pH Units (7.350-7.450) L 04/16/22 02:35 ABG pCO2 55.4 mm Hg 04/16/22 02:35 ABG pO2 71.1 mm Hg (80.0-90.0) L 04/16/22 02:35 ABG O2 Saturation 94.8 % (95.0-99.0) L 04/16/22 02:35 PT/INR, D-dimer PT 14.5 Sec. (12.2-14.9) 04/09/22 12:52 INR 1.02 (0.87-1.13) 04/09/22 12:52 D-Dimer 3804.33 ng/mlDDU (0-234) H 04/17/22 05:12 Abnormal lab findings: Abnormal Labs 04/09/22 04/09/22 04/09/22 11:59 12:52 12:52 WBC RBC Hgb Hct RDW 15.3 H Lymph % (Auto) 8.4 L Lymph # (Auto) 0.7 L Seg Neutrophils % 84.6 H Seg Neuts % (Manual) Lymphocytes % (Manual) Seg Neutrophils # Seg Neutrophils # Man Lymphocytes # (Manual) D-Dimer ABG pH ABG pO2 ABG HCO3 ABG O2 Saturation ABG Base Excess ABG Hemoglobin VBG pH Oxyhemoglobin Sodium Potassium Chloride 112.7 H Carbon Dioxide 18 L BUN Creatinine 2.0 H Glucose 204 H POC Glucose 203 H Lactic Acid Calcium Phosphorus Magnesium Ferritin Total Bilirubin 1.30 H Direct Bilirubin AST 47 H ALT Ammonia Lactate Dehydrogenase C-Reactive Protein Total Protein Albumin Urine Creatinine Urine Total Protein Coronavirus (PCR) 04/09/22 04/09/22 04/09/22 12:52 12:52 13:02 WBC RBC Hgb Hct RDW Lymph % (Auto) Lymph # (Auto) Seg Neutrophils % Seg Neuts % (Manual) Lymphocytes % (Manual) Seg Neutrophils # Seg Neutrophils # Man Lymphocytes # (Manual) D-Dimer ABG pH ABG pO2 ABG HCO3 ABG O2 Saturation ABG Base Excess ABG Hemoglobin VBG pH 7.303 L Oxyhemoglobin Sodium Potassium Chloride Carbon Dioxide BUN Creatinine Glucose POC Glucose Lactic Acid Calcium Phosphorus Magnesium Ferritin Total Bilirubin Direct Bilirubin AST ALT Ammonia 20.0 L Lactate Dehydrogenase C-Reactive Protein Total Protein Albumin Urine Creatinine Urine Total Protein Coronavirus (PCR) Positive A 04/09/22 04/09/22 04/09/22 15:49 22:15 22:58 WBC RBC Hgb Hct RDW Lymph % (Auto) Lymph # (Auto) Seg Neutrophils % Seg Neuts % (Manual) Lymphocytes % (Manual) Seg Neutrophils # Seg Neutrophils # Man Lymphocytes # (Manual) D-Dimer ABG pH 7.097 L* ABG pO2 188.8 H ABG HCO3 7.4 L ABG O2 Saturation 99.1 H ABG Base Excess -20.7 L ABG Hemoglobin VBG pH Oxyhemoglobin Sodium Potassium Chloride 108.8 H Carbon Dioxide 10 L D BUN 20 H Creatinine 2.6 H Glucose 465 H POC Glucose Lactic Acid 2.70 H* Calcium 7.4 L Phosphorus Magnesium Ferritin Total Bilirubin Direct Bilirubin AST ALT Ammonia Lactate Dehydrogenase C-Reactive Protein Total Protein Albumin Urine Creatinine Urine Total Protein Coronavirus (PCR) 04/09/22 04/09/22 04/10/22 23:19 Unknown 00:03 WBC RBC Hgb Hct RDW Lymph % (Auto) Lymph # (Auto) Seg Neutrophils % Seg Neuts % (Manual) Lymphocytes % (Manual) Seg Neutrophils # Seg Neutrophils # Man Lymphocytes # (Manual) D-Dimer ABG pH ABG pO2 ABG HCO3 ABG O2 Saturation ABG Base Excess ABG Hemoglobin VBG pH Oxyhemoglobin Sodium Potassium Chloride Carbon Dioxide BUN Creatinine Glucose POC Glucose 356 H Lactic Acid 7.50 H* 6.10 H* Calcium Phosphorus Magnesium Ferritin Total Bilirubin Direct Bilirubin AST ALT Ammonia Lactate Dehydrogenase C-Reactive Protein Total Protein Albumin Urine Creatinine Urine Total Protein Coronavirus (PCR) 04/10/22 04/10/22 04/10/22 02:16 03:03 04:00 WBC RBC Hgb Hct RDW Lymph % (Auto) Lymph # (Auto) Seg Neutrophils % Seg Neuts % (Manual) Lymphocytes % (Manual) Seg Neutrophils # Seg Neutrophils # Man Lymphocytes # (Manual) D-Dimer ABG pH ABG pO2 ABG HCO3 ABG O2 Saturation ABG Base Excess ABG Hemoglobin VBG pH Oxyhemoglobin Sodium Potassium Chloride Carbon Dioxide BUN Creatinine Glucose POC Glucose 317 H 325 H 308 H Lactic Acid Calcium Phosphorus Magnesium Ferritin Total Bilirubin Direct Bilirubin AST ALT Ammonia Lactate Dehydrogenase C-Reactive Protein Total Protein Albumin Urine Creatinine Urine Total Protein Coronavirus (PCR) 04/10/22 04/10/22 04/10/22 04:24 04:24 04:24 WBC 16.4 H RBC Hgb Hct RDW 16.2 H Lymph % (Auto) Lymph # (Auto) Seg Neutrophils % Seg Neuts % (Manual) 94.0 H Lymphocytes % (Manual) 3.0 L Seg Neutrophils # Seg Neutrophils # Man 15.4 H Lymphocytes # (Manual) 0.5 L D-Dimer ABG pH ABG pO2 ABG HCO3 ABG O2 Saturation ABG Base Excess ABG Hemoglobin VBG pH Oxyhemoglobin Sodium Potassium 2.9 L* D Chloride 116.1 H Carbon Dioxide 11 L BUN 19 H Creatinine 2.5 H Glucose 376 H POC Glucose Lactic Acid Calcium 6.5 L Phosphorus 1.40 L Magnesium 1.60 L Ferritin Total Bilirubin Direct Bilirubin AST 107 H ALT 64 H Ammonia Lactate Dehydrogenase C-Reactive Protein Total Protein 5.5 L Albumin 2.8 L Urine Creatinine Urine Total Protein Coronavirus (PCR) 04/10/22 04/10/22 04/10/22 04:25 05:17 06:00 WBC RBC Hgb Hct RDW Lymph % (Auto) Lymph # (Auto) Seg Neutrophils % Seg Neuts % (Manual) Lymphocytes % (Manual) Seg Neutrophils # Seg Neutrophils # Man Lymphocytes # (Manual) D-Dimer ABG pH 7.095 L* ABG pO2 112.3 H ABG HCO3 8.7 L ABG O2 Saturation ABG Base Excess -19.7 L ABG Hemoglobin VBG pH Oxyhemoglobin Sodium Potassium Chloride Carbon Dioxide BUN Creatinine Glucose POC Glucose 343 H 278 H Lactic Acid Calcium Phosphorus Magnesium Ferritin Total Bilirubin Direct Bilirubin AST ALT Ammonia Lactate Dehydrogenase C-Reactive Protein Total Protein Albumin Urine Creatinine Urine Total Protein Coronavirus (PCR) 04/10/22 04/10/22 04/10/22 06:53 07:54 08:58 WBC RBC Hgb Hct RDW Lymph % (Auto) Lymph # (Auto) Seg Neutrophils % Seg Neuts % (Manual) Lymphocytes % (Manual) Seg Neutrophils # Seg Neutrophils # Man Lymphocytes # (Manual) D-Dimer ABG pH ABG pO2 ABG HCO3 ABG O2 Saturation ABG Base Excess ABG Hemoglobin VBG pH Oxyhemoglobin Sodium Potassium Chloride Carbon Dioxide BUN Creatinine Glucose POC Glucose 262 H 245 H 215 H Lactic Acid Calcium Phosphorus Magnesium Ferritin Total Bilirubin Direct Bilirubin AST ALT Ammonia Lactate Dehydrogenase C-Reactive Protein Total Protein Albumin Urine Creatinine Urine Total Protein Coronavirus (PCR) 04/10/22 04/10/22 04/10/22 10:12 10:51 11:47 WBC RBC Hgb Hct RDW Lymph % (Auto) Lymph # (Auto) Seg Neutrophils % Seg Neuts % (Manual) Lymphocytes % (Manual) Seg Neutrophils # Seg Neutrophils # Man Lymphocytes # (Manual) D-Dimer ABG pH ABG pO2 ABG HCO3 ABG O2 Saturation ABG Base Excess ABG Hemoglobin VBG pH Oxyhemoglobin Sodium 148 H Potassium 3.4 L Chloride 116.7 H Carbon Dioxide 15 L BUN 22 H Creatinine 2.7 H Glucose 190 H POC Glucose 206 H 176 H Lactic Acid Calcium 6.9 L Phosphorus Magnesium Ferritin Total Bilirubin Direct Bilirubin AST ALT Ammonia Lactate Dehydrogenase C-Reactive Protein Total Protein Albumin Urine Creatinine Urine Total Protein Coronavirus (PCR) 04/10/22 04/10/22 04/10/22 11:47 11:47 12:02 WBC RBC Hgb Hct RDW Lymph % (Auto) Lymph # (Auto) Seg Neutrophils % Seg Neuts % (Manual) Lymphocytes % (Manual) Seg Neutrophils # Seg Neutrophils # Man Lymphocytes # (Manual) D-Dimer ABG pH ABG pO2 ABG HCO3 ABG O2 Saturation ABG Base Excess ABG Hemoglobin VBG pH Oxyhemoglobin Sodium Potassium Chloride Carbon Dioxide BUN Creatinine Glucose POC Glucose 178 H Lactic Acid Calcium Phosphorus Magnesium Ferritin 1218.0 H Total Bilirubin Direct Bilirubin AST ALT Ammonia Lactate Dehydrogenase 482 H C-Reactive Protein 11.30 H Total Protein Albumin Urine Creatinine Urine Total Protein Coronavirus (PCR) 04/10/22 04/10/22 04/10/22 13:13 13:58 14:50 WBC RBC Hgb Hct RDW Lymph % (Auto) Lymph # (Auto) Seg Neutrophils % Seg Neuts % (Manual) Lymphocytes % (Manual) Seg Neutrophils # Seg Neutrophils # Man Lymphocytes # (Manual) D-Dimer ABG pH ABG pO2 ABG HCO3 ABG O2 Saturation ABG Base Excess ABG Hemoglobin VBG pH Oxyhemoglobin Sodium Potassium Chloride Carbon Dioxide BUN Creatinine Glucose POC Glucose 160 H 150 H Lactic Acid Calcium Phosphorus Magnesium Ferritin Total Bilirubin Direct Bilirubin AST ALT Ammonia Lactate Dehydrogenase C-Reactive Protein Total Protein Albumin Urine Creatinine 224.2 H Urine Total Protein 172 H Coronavirus (PCR) 04/10/22 04/10/22 04/10/22 15:24 16:38 16:56 WBC RBC Hgb Hct RDW Lymph % (Auto) Lymph # (Auto) Seg Neutrophils % Seg Neuts % (Manual) Lymphocytes % (Manual) Seg Neutrophils # Seg Neutrophils # Man Lymphocytes # (Manual) D-Dimer ABG pH ABG pO2 ABG HCO3 ABG O2 Saturation ABG Base Excess ABG Hemoglobin VBG pH Oxyhemoglobin Sodium Potassium Chloride Carbon Dioxide BUN Creatinine Glucose POC Glucose 140 H 154 H 149 H Lactic Acid Calcium Phosphorus Magnesium Ferritin Total Bilirubin Direct Bilirubin AST ALT Ammonia Lactate Dehydrogenase C-Reactive Protein Total Protein Albumin Urine Creatinine Urine Total Protein Coronavirus (PCR) 04/10/22 04/10/22 04/10/22 18:21 19:21 20:02 WBC RBC Hgb Hct RDW Lymph % (Auto) Lymph # (Auto) Seg Neutrophils % Seg Neuts % (Manual) Lymphocytes % (Manual) Seg Neutrophils # Seg Neutrophils # Man Lymphocytes # (Manual) D-Dimer ABG pH ABG pO2 ABG HCO3 ABG O2 Saturation ABG Base Excess ABG Hemoglobin VBG pH Oxyhemoglobin Sodium Potassium Chloride Carbon Dioxide BUN Creatinine Glucose POC Glucose 141 H 126 H 139 H Lactic Acid Calcium Phosphorus Magnesium Ferritin Total Bilirubin Direct Bilirubin AST ALT Ammonia Lactate Dehydrogenase C-Reactive Protein Total Protein Albumin Urine Creatinine Urine Total Protein Coronavirus (PCR) 04/10/22 04/10/22 04/10/22 21:04 21:58 22:20 WBC RBC Hgb Hct RDW Lymph % (Auto) Lymph # (Auto) Seg Neutrophils % Seg Neuts % (Manual) Lymphocytes % (Manual) Seg Neutrophils # Seg Neutrophils # Man Lymphocytes # (Manual) D-Dimer ABG pH ABG pO2 ABG HCO3 ABG O2 Saturation ABG Base Excess ABG Hemoglobin VBG pH Oxyhemoglobin Sodium Potassium Chloride 114.5 H Carbon Dioxide 17 L BUN 24 H Creatinine 2.5 H Glucose 165 H POC Glucose 144 H 161 H Lactic Acid Calcium 6.5 L Phosphorus Magnesium Ferritin Total Bilirubin Direct Bilirubin AST ALT Ammonia Lactate Dehydrogenase C-Reactive Protein Total Protein Albumin Urine Creatinine Urine Total Protein Coronavirus (PCR) 04/10/22 04/11/22 04/11/22 23:02 00:08 01:05 WBC RBC Hgb Hct RDW Lymph % (Auto) Lymph # (Auto) Seg Neutrophils % Seg Neuts % (Manual) Lymphocytes % (Manual) Seg Neutrophils # Seg Neutrophils # Man Lymphocytes # (Manual) D-Dimer ABG pH ABG pO2 ABG HCO3 ABG O2 Saturation ABG Base Excess ABG Hemoglobin VBG pH Oxyhemoglobin Sodium Potassium Chloride Carbon Dioxide BUN Creatinine Glucose POC Glucose 160 H 148 H 156 H Lactic Acid Calcium Phosphorus Magnesium Ferritin Total Bilirubin Direct Bilirubin AST ALT Ammonia Lactate Dehydrogenase C-Reactive Protein Total Protein Albumin Urine Creatinine Urine Total Protein Coronavirus (PCR) 04/11/22 04/11/22 04/11/22 01:30 02:05 03:04 WBC RBC Hgb Hct RDW Lymph % (Auto) Lymph # (Auto) Seg Neutrophils % Seg Neuts % (Manual) Lymphocytes % (Manual) Seg Neutrophils # Seg Neutrophils # Man Lymphocytes # (Manual) D-Dimer ABG pH ABG pO2 75.1 L ABG HCO3 17.2 L ABG O2 Saturation ABG Base Excess -5.8 L ABG Hemoglobin 11.5 L VBG pH Oxyhemoglobin Sodium Potassium Chloride Carbon Dioxide BUN Creatinine Glucose POC Glucose 150 H 168 H Lactic Acid Calcium Phosphorus Magnesium Ferritin Total Bilirubin Direct Bilirubin AST ALT Ammonia Lactate Dehydrogenase C-Reactive Protein Total Protein Albumin Urine Creatinine Urine Total Protein Coronavirus (PCR) 04/11/22 04/11/22 04/11/22 03:58 03:58 04:05 WBC 12.2 H RBC Hgb Hct RDW 15.7 H Lymph % (Auto) Lymph # (Auto) Seg Neutrophils % Seg Neuts % (Manual) Lymphocytes % (Manual) Seg Neutrophils # Seg Neutrophils # Man Lymphocytes # (Manual) D-Dimer ABG pH ABG pO2 ABG HCO3 ABG O2 Saturation ABG Base Excess ABG Hemoglobin VBG pH Oxyhemoglobin Sodium 147 H Potassium Chloride 114.2 H Carbon Dioxide 19 L BUN 26 H Creatinine 2.5 H Glucose 154 H POC Glucose 151 H Lactic Acid Calcium 6.8 L Phosphorus Magnesium Ferritin Total Bilirubin Direct Bilirubin AST 106 H ALT 60 H Ammonia Lactate Dehydrogenase C-Reactive Protein Total Protein 5.6 L Albumin 2.7 L Urine Creatinine Urine Total Protein Coronavirus (PCR) 04/11/22 04/11/22 04/11/22 05:14 06:19 08:23 WBC RBC Hgb Hct RDW Lymph % (Auto) Lymph # (Auto) Seg Neutrophils % Seg Neuts % (Manual) Lymphocytes % (Manual) Seg Neutrophils # Seg Neutrophils # Man Lymphocytes # (Manual) D-Dimer ABG pH ABG pO2 ABG HCO3 ABG O2 Saturation ABG Base Excess ABG Hemoglobin VBG pH Oxyhemoglobin Sodium Potassium Chloride Carbon Dioxide BUN Creatinine Glucose POC Glucose 134 H 144 H 143 H Lactic Acid Calcium Phosphorus Magnesium Ferritin Total Bilirubin Direct Bilirubin AST ALT Ammonia Lactate Dehydrogenase C-Reactive Protein Total Protein Albumin Urine Creatinine Urine Total Protein Coronavirus (PCR) 04/11/22 04/11/22 04/11/22 09:28 10:06 11:23 WBC RBC Hgb Hct RDW Lymph % (Auto) Lymph # (Auto) Seg Neutrophils % Seg Neuts % (Manual) Lymphocytes % (Manual) Seg Neutrophils # Seg Neutrophils # Man Lymphocytes # (Manual) D-Dimer ABG pH ABG pO2 ABG HCO3 ABG O2 Saturation ABG Base Excess ABG Hemoglobin VBG pH Oxyhemoglobin Sodium Potassium Chloride Carbon Dioxide BUN Creatinine Glucose POC Glucose 138 H Lactic Acid Calcium Phosphorus Magnesium Ferritin Total Bilirubin Direct Bilirubin AST ALT Ammonia Lactate Dehydrogenase C-Reactive Protein Total Protein Albumin Urine Creatinine 161.8 H 160.5 H Urine Total Protein Coronavirus (PCR) 04/11/22 04/11/22 04/12/22 15:59 23:58 00:01 WBC 16.2 H RBC Hgb Hct RDW 15.8 H Lymph % (Auto) 5.7 L Lymph # (Auto) 0.9 L Seg Neutrophils % 89.6 H Seg Neuts % (Manual) Lymphocytes % (Manual) Seg Neutrophils # 14.6 H Seg Neutrophils # Man Lymphocytes # (Manual) D-Dimer ABG pH ABG pO2 ABG HCO3 ABG O2 Saturation ABG Base Excess ABG Hemoglobin VBG pH Oxyhemoglobin Sodium Potassium Chloride Carbon Dioxide BUN Creatinine Glucose POC Glucose 166 H 150 H Lactic Acid Calcium Phosphorus Magnesium Ferritin Total Bilirubin Direct Bilirubin AST ALT Ammonia Lactate Dehydrogenase C-Reactive Protein Total Protein Albumin Urine Creatinine Urine Total Protein Coronavirus (PCR) 04/12/22 04/12/22 04/12/22 03:20 04:00 04:00 WBC RBC Hgb Hct RDW Lymph % (Auto) Lymph # (Auto) Seg Neutrophils % Seg Neuts % (Manual) Lymphocytes % (Manual) Seg Neutrophils # Seg Neutrophils # Man Lymphocytes # (Manual) D-Dimer 1874.86 H ABG pH 7.513 H ABG pO2 61.7 L ABG HCO3 ABG O2 Saturation 94.2 L ABG Base Excess ABG Hemoglobin 11.5 L VBG pH Oxyhemoglobin 92.6 L Sodium Potassium Chloride Carbon Dioxide BUN Creatinine Glucose POC Glucose Lactic Acid Calcium Phosphorus Magnesium Ferritin 890.0 H Total Bilirubin Direct Bilirubin AST ALT Ammonia Lactate Dehydrogenase C-Reactive Protein Total Protein Albumin Urine Creatinine Urine Total Protein Coronavirus (PCR) 04/12/22 04/12/22 04/12/22 04:00 04:20 04:59 WBC RBC Hgb Hct RDW Lymph % (Auto) Lymph # (Auto) Seg Neutrophils % Seg Neuts % (Manual) Lymphocytes % (Manual) Seg Neutrophils # Seg Neutrophils # Man Lymphocytes # (Manual) D-Dimer ABG pH ABG pO2 ABG HCO3 ABG O2 Saturation ABG Base Excess ABG Hemoglobin VBG pH Oxyhemoglobin Sodium 146 H Potassium Chloride 108.0 H Carbon Dioxide BUN 38 H Creatinine 2.3 H Glucose 173 H POC Glucose 146 H Lactic Acid Calcium 6.7 L Phosphorus Magnesium Ferritin Total Bilirubin Direct Bilirubin AST ALT Ammonia Lactate Dehydrogenase 763 H C-Reactive Protein 14.10 H Total Protein Albumin Urine Creatinine Urine Total Protein Coronavirus (PCR) 04/12/22 04/12/22 04/12/22 06:05 10:15 11:52 WBC RBC Hgb Hct RDW Lymph % (Auto) Lymph # (Auto) Seg Neutrophils % Seg Neuts % (Manual) Lymphocytes % (Manual) Seg Neutrophils # Seg Neutrophils # Man Lymphocytes # (Manual) D-Dimer ABG pH ABG pO2 ABG HCO3 ABG O2 Saturation ABG Base Excess ABG Hemoglobin VBG pH Oxyhemoglobin Sodium Potassium Chloride Carbon Dioxide BUN Creatinine Glucose POC Glucose 190 H 122 H 125 H Lactic Acid Calcium Phosphorus Magnesium Ferritin Total Bilirubin Direct Bilirubin AST ALT Ammonia Lactate Dehydrogenase C-Reactive Protein Total Protein Albumin Urine Creatinine Urine Total Protein Coronavirus (PCR) 04/12/22 04/13/22 04/13/22 13:18 00:14 03:41 WBC RBC Hgb Hct RDW Lymph % (Auto) Lymph # (Auto) Seg Neutrophils % Seg Neuts % (Manual) Lymphocytes % (Manual) Seg Neutrophils # Seg Neutrophils # Man Lymphocytes # (Manual) D-Dimer ABG pH 7.487 H ABG pO2 62.1 L ABG HCO3 ABG O2 Saturation 93.2 L ABG Base Excess ABG Hemoglobin 11.9 L VBG pH Oxyhemoglobin 91.5 L Sodium Potassium Chloride Carbon Dioxide BUN 38 H Creatinine 2.1 H Glucose 144 H POC Glucose 208 H Lactic Acid Calcium 7.1 L Phosphorus Magnesium Ferritin Total Bilirubin Direct Bilirubin AST ALT Ammonia Lactate Dehydrogenase C-Reactive Protein Total Protein Albumin Urine Creatinine Urine Total Protein Coronavirus (PCR) 04/13/22 04/13/22 04/14/22 04:31 04:31 03:54 WBC 13.9 H RBC Hgb Hct RDW 15.7 H Lymph % (Auto) Lymph # (Auto) Seg Neutrophils % Seg Neuts % (Manual) Lymphocytes % (Manual) Seg Neutrophils # Seg Neutrophils # Man Lymphocytes # (Manual) D-Dimer ABG pH 7.487 H ABG pO2 57.8 L ABG HCO3 ABG O2 Saturation 93.9 L ABG Base Excess ABG Hemoglobin 10.0 L VBG pH Oxyhemoglobin 92.3 L Sodium Potassium Chloride Carbon Dioxide BUN 42 H Creatinine 1.9 H Glucose 204 H POC Glucose Lactic Acid Calcium 7.4 L Phosphorus Magnesium Ferritin Total Bilirubin Direct Bilirubin AST ALT Ammonia Lactate Dehydrogenase C-Reactive Protein Total Protein Albumin Urine Creatinine Urine Total Protein Coronavirus (PCR) 04/14/22 04/14/22 04/14/22 07:28 07:28 07:28 WBC RBC Hgb Hct RDW Lymph % (Auto) Lymph # (Auto) Seg Neutrophils % Seg Neuts % (Manual) Lymphocytes % (Manual) Seg Neutrophils # Seg Neutrophils # Man Lymphocytes # (Manual) D-Dimer 5586.76 H ABG pH ABG pO2 ABG HCO3 ABG O2 Saturation ABG Base Excess ABG Hemoglobin VBG pH Oxyhemoglobin Sodium Potassium Chloride Carbon Dioxide BUN Creatinine Glucose POC Glucose Lactic Acid Calcium Phosphorus Magnesium Ferritin 454.7 H Total Bilirubin Direct Bilirubin AST ALT Ammonia Lactate Dehydrogenase 1345 H C-Reactive Protein 4.80 H Total Protein Albumin Urine Creatinine Urine Total Protein Coronavirus (PCR) 04/14/22 04/14/22 04/14/22 07:28 07:28 09:26 WBC 18.6 H RBC 3.59 L Hgb Hct RDW 15.6 H Lymph % (Auto) Lymph # (Auto) Seg Neutrophils % Seg Neuts % (Manual) Lymphocytes % (Manual) Seg Neutrophils # Seg Neutrophils # Man Lymphocytes # (Manual) D-Dimer ABG pH ABG pO2 ABG HCO3 ABG O2 Saturation ABG Base Excess ABG Hemoglobin VBG pH Oxyhemoglobin Sodium 149 H Potassium Chloride 110.3 H Carbon Dioxide BUN 57 H Creatinine 2.3 H Glucose 205 H POC Glucose Lactic Acid Calcium Phosphorus Magnesium 2.90 H Ferritin Total Bilirubin Direct Bilirubin AST ALT Ammonia Lactate Dehydrogenase C-Reactive Protein Total Protein Albumin Urine Creatinine Urine Total Protein Coronavirus (PCR) 04/14/22 04/14/22 04/14/22 11:52 15:41 17:18 WBC RBC Hgb Hct RDW Lymph % (Auto) Lymph # (Auto) Seg Neutrophils % Seg Neuts % (Manual) Lymphocytes % (Manual) Seg Neutrophils # Seg Neutrophils # Man Lymphocytes # (Manual) D-Dimer ABG pH 7.506 H ABG pO2 51.0 L ABG HCO3 ABG O2 Saturation 87.3 L ABG Base Excess ABG Hemoglobin 10.6 L VBG pH Oxyhemoglobin 85.4 L Sodium Potassium Chloride Carbon Dioxide BUN Creatinine Glucose POC Glucose 173 H 187 H Lactic Acid Calcium Phosphorus Magnesium Ferritin Total Bilirubin Direct Bilirubin AST ALT Ammonia Lactate Dehydrogenase C-Reactive Protein Total Protein Albumin Urine Creatinine Urine Total Protein Coronavirus (PCR) 04/15/22 04/15/22 04/15/22 00:03 03:43 05:47 WBC RBC Hgb Hct RDW Lymph % (Auto) Lymph # (Auto) Seg Neutrophils % Seg Neuts % (Manual) Lymphocytes % (Manual) Seg Neutrophils # Seg Neutrophils # Man Lymphocytes # (Manual) D-Dimer ABG pH 7.477 H ABG pO2 59.1 L ABG HCO3 ABG O2 Saturation 90.5 L ABG Base Excess ABG Hemoglobin 9.5 L VBG pH Oxyhemoglobin 88.7 L Sodium Potassium Chloride Carbon Dioxide BUN Creatinine Glucose POC Glucose 246 H 217 H Lactic Acid Calcium Phosphorus Magnesium Ferritin Total Bilirubin Direct Bilirubin AST ALT Ammonia Lactate Dehydrogenase C-Reactive Protein Total Protein Albumin Urine Creatinine Urine Total Protein Coronavirus (PCR) 04/15/22 04/15/22 04/15/22 09:40 10:00 12:00 WBC 19.3 H RBC 3.18 L Hgb 9.3 L Hct 27.7 L RDW 15.8 H Lymph % (Auto) Lymph # (Auto) Seg Neutrophils % Seg Neuts % (Manual) Lymphocytes % (Manual) Seg Neutrophils # Seg Neutrophils # Man Lymphocytes # (Manual) D-Dimer ABG pH ABG pO2 ABG HCO3 ABG O2 Saturation ABG Base Excess ABG Hemoglobin VBG pH Oxyhemoglobin Sodium 146 H Potassium Chloride 107.9 H Carbon Dioxide BUN 76 H Creatinine 1.9 H Glucose 214 H POC Glucose Lactic Acid 2.10 H* Calcium 7.7 L Phosphorus Magnesium Ferritin Total Bilirubin Direct Bilirubin AST ALT Ammonia Lactate Dehydrogenase C-Reactive Protein Total Protein Albumin Urine Creatinine Urine Total Protein Coronavirus (PCR) 04/15/22 04/15/22 04/15/22 12:21 17:51 21:39 WBC RBC Hgb Hct RDW Lymph % (Auto) Lymph # (Auto) Seg Neutrophils % Seg Neuts % (Manual) Lymphocytes % (Manual) Seg Neutrophils # Seg Neutrophils # Man Lymphocytes # (Manual) D-Dimer ABG pH ABG pO2 ABG HCO3 ABG O2 Saturation ABG Base Excess ABG Hemoglobin VBG pH Oxyhemoglobin Sodium Potassium Chloride Carbon Dioxide BUN Creatinine Glucose POC Glucose 236 H 255 H 223 H Lactic Acid Calcium Phosphorus Magnesium Ferritin Total Bilirubin Direct Bilirubin AST ALT Ammonia Lactate Dehydrogenase C-Reactive Protein Total Protein Albumin Urine Creatinine Urine Total Protein Coronavirus (PCR) 04/16/22 04/16/22 04/16/22 00:17 02:35 04:00 WBC RBC Hgb Hct RDW Lymph % (Auto) Lymph # (Auto) Seg Neutrophils % Seg Neuts % (Manual) Lymphocytes % (Manual) Seg Neutrophils # Seg Neutrophils # Man Lymphocytes # (Manual) D-Dimer ABG pH 7.318 L ABG pO2 71.1 L ABG HCO3 27.7 H ABG O2 Saturation 94.8 L ABG Base Excess ABG Hemoglobin 10.3 L VBG pH Oxyhemoglobin 92.9 L Sodium Potassium Chloride Carbon Dioxide BUN Creatinine Glucose POC Glucose 201 H Lactic Acid Calcium Phosphorus Magnesium Ferritin 446.2 H Total Bilirubin Direct Bilirubin AST ALT Ammonia Lactate Dehydrogenase C-Reactive Protein Total Protein Albumin Urine Creatinine Urine Total Protein Coronavirus (PCR) 04/16/22 04/16/22 04/16/22 04:00 06:00 Unknown WBC RBC Hgb Hct RDW Lymph % (Auto) Lymph # (Auto) Seg Neutrophils % Seg Neuts % (Manual) Lymphocytes % (Manual) Seg Neutrophils # Seg Neutrophils # Man Lymphocytes # (Manual) D-Dimer 3886.80 H ABG pH ABG pO2 ABG HCO3 ABG O2 Saturation ABG Base Excess ABG Hemoglobin VBG pH Oxyhemoglobin Sodium 148 H Potassium Chloride 109.9 H Carbon Dioxide BUN 84 H Creatinine 1.7 H Glucose 276 H POC Glucose Lactic Acid Calcium Phosphorus Magnesium Ferritin Total Bilirubin Direct Bilirubin 0.5 H AST 69 H ALT 120 H Ammonia Lactate Dehydrogenase 1467 H C-Reactive Protein 1.90 H Total Protein 5.9 L Albumin 3.5 L Urine Creatinine Urine Total Protein Coronavirus (PCR) 04/16/22 04/17/22 04/17/22 Unknown 05:12 05:12 WBC 25.2 H 22.2 H RBC 3.50 L Hgb Hct RDW 15.8 H 15.8 H Lymph % (Auto) Lymph # (Auto) Seg Neutrophils % Seg Neuts % (Manual) Lymphocytes % (Manual) Seg Neutrophils # Seg Neutrophils # Man Lymphocytes # (Manual) D-Dimer 3804.33 H ABG pH ABG pO2 ABG HCO3 ABG O2 Saturation ABG Base Excess ABG Hemoglobin VBG pH Oxyhemoglobin Sodium Potassium Chloride Carbon Dioxide BUN Creatinine Glucose POC Glucose Lactic Acid Calcium Phosphorus Magnesium Ferritin Total Bilirubin Direct Bilirubin AST ALT Ammonia Lactate Dehydrogenase C-Reactive Protein Total Protein Albumin Urine Creatinine Urine Total Protein Coronavirus (PCR) 04/17/22 05:12 WBC RBC Hgb Hct RDW Lymph % (Auto) Lymph # (Auto) Seg Neutrophils % Seg Neuts % (Manual) Lymphocytes % (Manual) Seg Neutrophils # Seg Neutrophils # Man Lymphocytes # (Manual) D-Dimer ABG pH ABG pO2 ABG HCO3 ABG O2 Saturation ABG Base Excess ABG Hemoglobin VBG pH Oxyhemoglobin Sodium 149 H Potassium 5.3 H Chloride 109.4 H Carbon Dioxide BUN 80 H Creatinine 1.5 H Glucose 320 H POC Glucose Lactic Acid Calcium Phosphorus Magnesium Ferritin Total Bilirubin Direct Bilirubin AST 171 H ALT 231 H Ammonia Lactate Dehydrogenase C-Reactive Protein Total Protein 5.4 L Albumin 3.7 L Urine Creatinine Urine Total Protein Coronavirus (PCR)
--- NOTE | 2022-04-17 13:48 | Event Note ---
Date: 04/17/22 Spoke with Son and Niece over the phone regarding next steps. They are in agreement with trach and peg placement. Will consult surgery to assess and treat. 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
[2022-04-17] MEDS ORDERED: DEXTROSE 5% IN WATER 1,000 ML IV ONE (14:00)
[2022-04-17] MEDS: dexAMETHasone 4 MG/ML VIAL IV SCH (18:25)
[2022-04-17] MEDS ORDERED: INSULIN GLARGINE 100 UNITS/ML SUB-Q SCH (22:00)
[2022-04-17] MEDS: INSULIN GLARGINE 100 UNITS/ML SUB-Q SCH (22:06)
[2022-04-18] MEDS: FREE WATER PO SCH ×7 (00:30→23:56)
[2022-04-18] MEDS: INSULIN LISPRO 100 UNIT/ML SUB-Q SCH ×4 (02:05→17:00)
[2022-04-18] MEDS: fentaNYL DRIP Premix 2,000 MCG/100 ML BAG IV SCH ×2 (03:15→14:15)
[2022-04-18 06:19] LABS: Hematocrit 29.5 % (30.3-42.9); Hemoglobin 9.7 gm/dl (10.1-14.3); Mean Corpuscular HGB Conc 33 % (30-34); Mean Corpuscular Volume 87 fl (79-97); Platelet Count 142 K/mm3 (140-440); Red Blood Count 3.38 M/mm3 (3.65-5.03); Red Cell Distribution Width 15.9 % (13.2-15.2)
[2022-04-18 06:44] LABS: Calcium 8.3 mg/dL (8.4-10.2)
[2022-04-18] MEDS: CEFEPIME/NS 2 GM/100 ML 2 GM/100 ML BAG IV SCH (06:57)
[2022-04-18 07:22] LABS: C-Reactive Protein 0.8 mg/dL (0.00-1.30)
[2022-04-18] MEDS: HEPARIN 5,000 UNIT/1 ML VIAL SUB-Q SCH ×2 (09:51→23:56)
[2022-04-18] MEDS: SENNOSIDES/DOCUSATE SODIUM 8.6/50 MG TAB FEEDTUBE SCH ×3 (09:51→23:38)
[2022-04-18] MEDS: FAMOTIDINE 10 MG TAB FEEDTUBE SCH ×3 (09:51→23:39)
--- NOTE | 2022-04-18 10:24 | Progress Note ---
Assessment and Plan 77 y/o female with multisystem organ failure, COVID positive 04/18/22: Peep and FiO2 weaned this am. No blood gas this am but sat is 100. Will order ABG for tomorrow morning. Will order repeat CMP and ask that phlebotomy do a fresh stick on patient and not draw from picc line. Once trached and pegged will work on placement. Reviewed meds but none that would cause persistent to worsening hypernatremia. Guarded to poor prognosis. 04/17/22: Continue PEEP at 10. Down to 45%. Do not see a blood gas from this morning. Neurology saw this am. MRI negative. Family meeting today at 1330. Guarded to poor prognosis. 04/16/22: Continue PEEP at 10 until FiO2 is at 40-45% and sats >92%. Then can start to wean. Just on Fent now, continue bowel regimen. Tolerating tube feeds. Discussed with CREDIT COLLECTOR on rounds, neurology was seeing but no further notes, no objection to consulting neuro who is here this week, whoever that is. Patient may need MRI as she has had two negative head CT's and still no real explanation for acute change in mental state. Plan to meet/talk with son tomorrow about next steps and goals of care. Prognosis remains guarded to now poor given no improvement in mental state. 04/15/22: Hold on any further fluids or lasix. If hypotensive, will add pressors. Continue PEEP at 10. Same acceptable parameters as below for sats and PaO2 as pH. Continue pain control and sedation. Added bowel regimen. Prognosis is still guarded to poor. 04/14/22: Hold on any further lasix. Please do not give any fluids, will see if she re equilbrates on her own. Increase PEEP to 8. Will get head CT today. Patient is now in full blown ARDS from COVID. Increased PEEP to 8 and dropped TV to 400. pH of >7.15 and PaO2 >55 are acceptable. Repeat gas at 1600 today. 04/13/22: Renal function continues to improve and urine output improving as well. Given CXR findings will give lasix 40mg IV x1 today. Repeat CXR olinda rrow. Off insulin drip and tolerating feeds. Hold on CT head today but if no improvement or worsening clinical state tomorrow, will repeat. Spoke with family on phone yesterday. Guarded prognosis. 04/12/22: Improved mental state. Feed patient today and stop IVF's and attempt to get off of insulin drip. Dropped Peep to 6. Wean FiO2 for sats >88%. PaO2 of 55 and greater are acceptable. Normal EF on echo. EEG showed diffuse slowing but mental state has improved. Will up date family. 04/11/22: Continue supportive measures. Getting EEG right now. Continue to wean Pressors for MAPs >65. if able to get to just one pressor, will place NG vs OG and attempt trickle feeds. Follow up echo. Down to 45%, good PaO2. Continue to wean, however mental state would preclude extubation at this time. Await renal eval but would like to stop bicarb now that acidosis is better, however needs free water but this could be given do OG/NG if end up placing, otherwise would just do D5W. If able to place tube and feed, then can attempt to get off insulin drip. Plan to update family after echo and EEG read. 1. Neuro-concern for seizures. EEG pending. Hold on long acting anti-epileptic therapy. Neurology consulted and has seen. patient is not on any continuous sedation at present 2. CV-Cardiovascular collapse on pressors (3). Could benefit from echo. Attempt volume resuscitation but no improvement. Continue pressors and wean as tolerated for MAPs >65 3. Pulm-intubated, not on sedation. COVID positive but oxygenation is stable. Per documentation, mainly intubated for airway protection given altered level of mental status. Not a candidate for Remdesivir and may not be a candidate for actemra. Continue steroids and low Tidal volume strategy for lung protection with permissive hypercapnea and lower PaO2 (55-60) if needed. 4. Renal- worsening renal function and decrease in urine output. Renal following. May need HD but would likely not tolerate and CRRT or CVVH is not available here. Worsening lactic acidosis as well. 5. GI-hold on feeds given pressor requirement, prophylactic therapy 6. Endo-continue insulin drip for now Overall prognosis is guarded to poor. Will discuss with immediate family today. CCT 31 minutes Subjective Date of service: 04/18/22 Principal diagnosis: ASHLEY Interval history: Mental state is unchanged. Consulted surgery this am for trach and peg placement. Na continues to increase despite fluids given by renal and free water. Objective Vital Signs - 12hr 04/17/22 04/17/22 04/18/22 23:01 23:45 00:00 Temperature 97.9 F Pulse Rate 126 H 126 H 125 H Pulse Rate [ 125 H From Monitor] Respiratory 22 24 22 Rate Blood Pressure 155/74 150/71 O2 Sat by Pulse 97 97 97 Oximetry 04/18/22 04/18/22 04/18/22 00:01 00:10 01:01 Temperature Pulse Rate 125 H 125 H 123 H Pulse Rate [ From Monitor] Respiratory 22 19 Rate Blood Pressure 154/73 154/73 152/73 O2 Sat by Pulse 97 97 97 Oximetry 04/18/22 04/18/22 04/18/22 02:01 03:01 04:00 Temperature 98 F Pulse Rate 126 H 122 H 119 H Pulse Rate [ 119 H From Monitor] Respiratory 21 20 18 Rate Blood Pressure 158/76 127/58 O2 Sat by Pulse 98 99 99 Oximetry 04/18/22 04/18/22 04/18/22 04:01 04:43 05:01 Temperature Pulse Rate 119 H 118 H 118 H Pulse Rate [ From Monitor] Respiratory 18 18 Rate Blood Pressure 130/57 121/56 126/56 O2 Sat by Pulse 99 99 99 Oximetry 04/18/22 04/18/22 04/18/22 06:01 07:01 08:00 Temperature 97.9 F Pulse Rate 117 H 116 H Pulse Rate [ From Monitor] Respiratory 18 18 Rate Blood Pressure 135/58 138/60 O2 Sat by Pulse 100 100 Oximetry 04/18/22 04/18/22 04/18/22 08:01 08:45 09:01 Temperature Pulse Rate 113 H 112 H 118 H Pulse Rate [ From Monitor] Respiratory 18 13 Rate Blood Pressure 130/57 147/63 147/63 O2 Sat by Pulse 100 100 100 Oximetry 04/18/22 04/18/22 10:01 10:17 Temperature Pulse Rate 113 H Pulse Rate [ From Monitor] Respiratory 18 Rate Blood Pressure 138/61 O2 Sat by Pulse 100 100 Oximetry Gastrointestinal: normoactive bowel sounds Integumentary: normal CBC and BMP: 04/18/22 05:41 04/18/22 05:41 ABG, PT/INR, D-dimer: ABG ABG pH 7.318 pH Units (7.350-7.450) L 04/16/22 02:35 ABG pCO2 55.4 mm Hg 04/16/22 02:35 ABG pO2 71.1 mm Hg (80.0-90.0) L 04/16/22 02:35 ABG O2 Saturation 94.8 % (95.0-99.0) L 04/16/22 02:35 PT/INR, D-dimer PT 14.5 Sec. (12.2-14.9) 04/09/22 12:52 INR 1.02 (0.87-1.13) 04/09/22 12:52 D-Dimer 3804.33 ng/mlDDU (0-234) H 04/17/22 05:12 Abnormal lab findings: Abnormal Labs 04/09/22 04/09/22 04/09/22 11:59 12:52 12:52 WBC RBC Hgb Hct RDW 15.3 H Lymph % (Auto) 8.4 L Lymph # (Auto) 0.7 L Seg Neutrophils % 84.6 H Seg Neuts % (Manual) Lymphocytes % (Manual) Seg Neutrophils # Seg Neutrophils # Man Lymphocytes # (Manual) D-Dimer ABG pH ABG pO2 ABG HCO3 ABG O2 Saturation ABG Base Excess ABG Hemoglobin VBG pH Oxyhemoglobin Sodium Potassium Chloride 112.7 H Carbon Dioxide 18 L BUN Creatinine 2.0 H Glucose 204 H POC Glucose 203 H Lactic Acid Calcium Phosphorus Magnesium Ferritin Total Bilirubin 1.30 H Direct Bilirubin AST 47 H ALT Ammonia Lactate Dehydrogenase C-Reactive Protein Total Protein Albumin Urine Creatinine Urine Total Protein Coronavirus (PCR) 04/09/22 04/09/22 04/09/22 12:52 12:52 13:02 WBC RBC Hgb Hct RDW Lymph % (Auto) Lymph # (Auto) Seg Neutrophils % Seg Neuts % (Manual) Lymphocytes % (Manual) Seg Neutrophils # Seg Neutrophils # Man Lymphocytes # (Manual) D-Dimer ABG pH ABG pO2 ABG HCO3 ABG O2 Saturation ABG Base Excess ABG Hemoglobin VBG pH 7.303 L Oxyhemoglobin Sodium Potassium Chloride Carbon Dioxide BUN Creatinine Glucose POC Glucose Lactic Acid Calcium Phosphorus Magnesium Ferritin Total Bilirubin Direct Bilirubin AST ALT Ammonia 20.0 L Lactate Dehydrogenase C-Reactive Protein Total Protein Albumin Urine Creatinine Urine Total Protein Coronavirus (PCR) Positive A 04/09/22 04/09/22 04/09/22 15:49 22:15 22:58 WBC RBC Hgb Hct RDW Lymph % (Auto) Lymph # (Auto) Seg Neutrophils % Seg Neuts % (Manual) Lymphocytes % (Manual) Seg Neutrophils # Seg Neutrophils # Man Lymphocytes # (Manual) D-Dimer ABG pH 7.097 L* ABG pO2 188.8 H ABG HCO3 7.4 L ABG O2 Saturation 99.1 H ABG Base Excess -20.7 L ABG Hemoglobin VBG pH Oxyhemoglobin Sodium Potassium Chloride 108.8 H Carbon Dioxide 10 L D BUN 20 H Creatinine 2.6 H Glucose 465 H POC Glucose Lactic Acid 2.70 H* Calcium 7.4 L Phosphorus Magnesium Ferritin Total Bilirubin Direct Bilirubin AST ALT Ammonia Lactate Dehydrogenase C-Reactive Protein Total Protein Albumin Urine Creatinine Urine Total Protein Coronavirus (PCR) 04/09/22 04/09/22 04/10/22 23:19 Unknown 00:03 WBC RBC Hgb Hct RDW Lymph % (Auto) Lymph # (Auto) Seg Neutrophils % Seg Neuts % (Manual) Lymphocytes % (Manual) Seg Neutrophils # Seg Neutrophils # Man Lymphocytes # (Manual) D-Dimer ABG pH ABG pO2 ABG HCO3 ABG O2 Saturation ABG Base Excess ABG Hemoglobin VBG pH Oxyhemoglobin Sodium Potassium Chloride Carbon Dioxide BUN Creatinine Glucose POC Glucose 356 H Lactic Acid 7.50 H* 6.10 H* Calcium Phosphorus Magnesium Ferritin Total Bilirubin Direct Bilirubin AST ALT Ammonia Lactate Dehydrogenase C-Reactive Protein Total Protein Albumin Urine Creatinine Urine Total Protein Coronavirus (PCR) 04/10/22 04/10/22 04/10/22 02:16 03:03 04:00 WBC RBC Hgb Hct RDW Lymph % (Auto) Lymph # (Auto) Seg Neutrophils % Seg Neuts % (Manual) Lymphocytes % (Manual) Seg Neutrophils # Seg Neutrophils # Man Lymphocytes # (Manual) D-Dimer ABG pH ABG pO2 ABG HCO3 ABG O2 Saturation ABG Base Excess ABG Hemoglobin VBG pH Oxyhemoglobin Sodium Potassium Chloride Carbon Dioxide BUN Creatinine Glucose POC Glucose 317 H 325 H 308 H Lactic Acid Calcium Phosphorus Magnesium Ferritin Total Bilirubin Direct Bilirubin AST ALT Ammonia Lactate Dehydrogenase C-Reactive Protein Total Protein Albumin Urine Creatinine Urine Total Protein Coronavirus (PCR) 04/10/22 04/10/22 04/10/22 04:24 04:24 04:24 WBC 16.4 H RBC Hgb Hct RDW 16.2 H Lymph % (Auto) Lymph # (Auto) Seg Neutrophils % Seg Neuts % (Manual) 94.0 H Lymphocytes % (Manual) 3.0 L Seg Neutrophils # Seg Neutrophils # Man 15.4 H Lymphocytes # (Manual) 0.5 L D-Dimer ABG pH ABG pO2 ABG HCO3 ABG O2 Saturation ABG Base Excess ABG Hemoglobin VBG pH Oxyhemoglobin Sodium Potassium 2.9 L* D Chloride 116.1 H Carbon Dioxide 11 L BUN 19 H Creatinine 2.5 H Glucose 376 H POC Glucose Lactic Acid Calcium 6.5 L Phosphorus 1.40 L Magnesium 1.60 L Ferritin Total Bilirubin Direct Bilirubin AST 107 H ALT 64 H Ammonia Lactate Dehydrogenase C-Reactive Protein Total Protein 5.5 L Albumin 2.8 L Urine Creatinine Urine Total Protein Coronavirus (PCR) 04/10/22 04/10/22 04/10/22 04:25 05:17 06:00 WBC RBC Hgb Hct RDW Lymph % (Auto) Lymph # (Auto) Seg Neutrophils % Seg Neuts % (Manual) Lymphocytes % (Manual) Seg Neutrophils # Seg Neutrophils # Man Lymphocytes # (Manual) D-Dimer ABG pH 7.095 L* ABG pO2 112.3 H ABG HCO3 8.7 L ABG O2 Saturation ABG Base Excess -19.7 L ABG Hemoglobin VBG pH Oxyhemoglobin Sodium Potassium Chloride Carbon Dioxide BUN Creatinine Glucose POC Glucose 343 H 278 H Lactic Acid Calcium Phosphorus Magnesium Ferritin Total Bilirubin Direct Bilirubin AST ALT Ammonia Lactate Dehydrogenase C-Reactive Protein Total Protein Albumin Urine Creatinine Urine Total Protein Coronavirus (PCR) 04/10/22 04/10/22 04/10/22 06:53 07:54 08:58 WBC RBC Hgb Hct RDW Lymph % (Auto) Lymph # (Auto) Seg Neutrophils % Seg Neuts % (Manual) Lymphocytes % (Manual) Seg Neutrophils # Seg Neutrophils # Man Lymphocytes # (Manual) D-Dimer ABG pH ABG pO2 ABG HCO3 ABG O2 Saturation ABG Base Excess ABG Hemoglobin VBG pH Oxyhemoglobin Sodium Potassium Chloride Carbon Dioxide BUN Creatinine Glucose POC Glucose 262 H 245 H 215 H Lactic Acid Calcium Phosphorus Magnesium Ferritin Total Bilirubin Direct Bilirubin AST ALT Ammonia Lactate Dehydrogenase C-Reactive Protein Total Protein Albumin Urine Creatinine Urine Total Protein Coronavirus (PCR) 04/10/22 04/10/22 04/10/22 10:12 10:51 11:47 WBC RBC Hgb Hct RDW Lymph % (Auto) Lymph # (Auto) Seg Neutrophils % Seg Neuts % (Manual) Lymphocytes % (Manual) Seg Neutrophils # Seg Neutrophils # Man Lymphocytes # (Manual) D-Dimer ABG pH ABG pO2 ABG HCO3 ABG O2 Saturation ABG Base Excess ABG Hemoglobin VBG pH Oxyhemoglobin Sodium 148 H Potassium 3.4 L Chloride 116.7 H Carbon Dioxide 15 L BUN 22 H Creatinine 2.7 H Glucose 190 H POC Glucose 206 H 176 H Lactic Acid Calcium 6.9 L Phosphorus Magnesium Ferritin Total Bilirubin Direct Bilirubin AST ALT Ammonia Lactate Dehydrogenase C-Reactive Protein Total Protein Albumin Urine Creatinine Urine Total Protein Coronavirus (PCR) 04/10/22 04/10/22 04/10/22 11:47 11:47 12:02 WBC RBC Hgb Hct RDW Lymph % (Auto) Lymph # (Auto) Seg Neutrophils % Seg Neuts % (Manual) Lymphocytes % (Manual) Seg Neutrophils # Seg Neutrophils # Man Lymphocytes # (Manual) D-Dimer ABG pH ABG pO2 ABG HCO3 ABG O2 Saturation ABG Base Excess ABG Hemoglobin VBG pH Oxyhemoglobin Sodium Potassium Chloride Carbon Dioxide BUN Creatinine Glucose POC Glucose 178 H Lactic Acid Calcium Phosphorus Magnesium Ferritin 1218.0 H Total Bilirubin Direct Bilirubin AST ALT Ammonia Lactate Dehydrogenase 482 H C-Reactive Protein 11.30 H Total Protein Albumin Urine Creatinine Urine Total Protein Coronavirus (PCR) 04/10/22 04/10/22 04/10/22 13:13 13:58 14:50 WBC RBC Hgb Hct RDW Lymph % (Auto) Lymph # (Auto) Seg Neutrophils % Seg Neuts % (Manual) Lymphocytes % (Manual) Seg Neutrophils # Seg Neutrophils # Man Lymphocytes # (Manual) D-Dimer ABG pH ABG pO2 ABG HCO3 ABG O2 Saturation ABG Base Excess ABG Hemoglobin VBG pH Oxyhemoglobin Sodium Potassium Chloride Carbon Dioxide BUN Creatinine Glucose POC Glucose 160 H 150 H Lactic Acid Calcium Phosphorus Magnesium Ferritin Total Bilirubin Direct Bilirubin AST ALT Ammonia Lactate Dehydrogenase C-Reactive Protein Total Protein Albumin Urine Creatinine 224.2 H Urine Total Protein 172 H Coronavirus (PCR) 04/10/22 04/10/22 04/10/22 15:24 16:38 16:56 WBC RBC Hgb Hct RDW Lymph % (Auto) Lymph # (Auto) Seg Neutrophils % Seg Neuts % (Manual) Lymphocytes % (Manual) Seg Neutrophils # Seg Neutrophils # Man Lymphocytes # (Manual) D-Dimer ABG pH ABG pO2 ABG HCO3 ABG O2 Saturation ABG Base Excess ABG Hemoglobin VBG pH Oxyhemoglobin Sodium Potassium Chloride Carbon Dioxide BUN Creatinine Glucose POC Glucose 140 H 154 H 149 H Lactic Acid Calcium Phosphorus Magnesium Ferritin Total Bilirubin Direct Bilirubin AST ALT Ammonia Lactate Dehydrogenase C-Reactive Protein Total Protein Albumin Urine Creatinine Urine Total Protein Coronavirus (PCR) 04/10/22 04/10/22 04/10/22 18:21 19:21 20:02 WBC RBC Hgb Hct RDW Lymph % (Auto) Lymph # (Auto) Seg Neutrophils % Seg Neuts % (Manual) Lymphocytes % (Manual) Seg Neutrophils # Seg Neutrophils # Man Lymphocytes # (Manual) D-Dimer ABG pH ABG pO2 ABG HCO3 ABG O2 Saturation ABG Base Excess ABG Hemoglobin VBG pH Oxyhemoglobin Sodium Potassium Chloride Carbon Dioxide BUN Creatinine Glucose POC Glucose 141 H 126 H 139 H Lactic Acid Calcium Phosphorus Magnesium Ferritin Total Bilirubin Direct Bilirubin AST ALT Ammonia Lactate Dehydrogenase C-Reactive Protein Total Protein Albumin Urine Creatinine Urine Total Protein Coronavirus (PCR) 04/10/22 04/10/22 04/10/22 21:04 21:58 22:20 WBC RBC Hgb Hct RDW Lymph % (Auto) Lymph # (Auto) Seg Neutrophils % Seg Neuts % (Manual) Lymphocytes % (Manual) Seg Neutrophils # Seg Neutrophils # Man Lymphocytes # (Manual) D-Dimer ABG pH ABG pO2 ABG HCO3 ABG O2 Saturation ABG Base Excess ABG Hemoglobin VBG pH Oxyhemoglobin Sodium Potassium Chloride 114.5 H Carbon Dioxide 17 L BUN 24 H Creatinine 2.5 H Glucose 165 H POC Glucose 144 H 161 H Lactic Acid Calcium 6.5 L Phosphorus Magnesium Ferritin Total Bilirubin Direct Bilirubin AST ALT Ammonia Lactate Dehydrogenase C-Reactive Protein Total Protein Albumin Urine Creatinine Urine Total Protein Coronavirus (PCR) 04/10/22 04/11/22 04/11/22 23:02 00:08 01:05 WBC RBC Hgb Hct RDW Lymph % (Auto) Lymph # (Auto) Seg Neutrophils % Seg Neuts % (Manual) Lymphocytes % (Manual) Seg Neutrophils # Seg Neutrophils # Man Lymphocytes # (Manual) D-Dimer ABG pH ABG pO2 ABG HCO3 ABG O2 Saturation ABG Base Excess ABG Hemoglobin VBG pH Oxyhemoglobin Sodium Potassium Chloride Carbon Dioxide BUN Creatinine Glucose POC Glucose 160 H 148 H 156 H Lactic Acid Calcium Phosphorus Magnesium Ferritin Total Bilirubin Direct Bilirubin AST ALT Ammonia Lactate Dehydrogenase C-Reactive Protein Total Protein Albumin Urine Creatinine Urine Total Protein Coronavirus (PCR) 04/11/22 04/11/22 04/11/22 01:30 02:05 03:04 WBC RBC Hgb Hct RDW Lymph % (Auto) Lymph # (Auto) Seg Neutrophils % Seg Neuts % (Manual) Lymphocytes % (Manual) Seg Neutrophils # Seg Neutrophils # Man Lymphocytes # (Manual) D-Dimer ABG pH ABG pO2 75.1 L ABG HCO3 17.2 L ABG O2 Saturation ABG Base Excess -5.8 L ABG Hemoglobin 11.5 L VBG pH Oxyhemoglobin Sodium Potassium Chloride Carbon Dioxide BUN Creatinine Glucose POC Glucose 150 H 168 H Lactic Acid Calcium Phosphorus Magnesium Ferritin Total Bilirubin Direct Bilirubin AST ALT Ammonia Lactate Dehydrogenase C-Reactive Protein Total Protein Albumin Urine Creatinine Urine Total Protein Coronavirus (PCR) 04/11/22 04/11/22 04/11/22 03:58 03:58 04:05 WBC 12.2 H RBC Hgb Hct RDW 15.7 H Lymph % (Auto) Lymph # (Auto) Seg Neutrophils % Seg Neuts % (Manual) Lymphocytes % (Manual) Seg Neutrophils # Seg Neutrophils # Man Lymphocytes # (Manual) D-Dimer ABG pH ABG pO2 ABG HCO3 ABG O2 Saturation ABG Base Excess ABG Hemoglobin VBG pH Oxyhemoglobin Sodium 147 H Potassium Chloride 114.2 H Carbon Dioxide 19 L BUN 26 H Creatinine 2.5 H Glucose 154 H POC Glucose 151 H Lactic Acid Calcium 6.8 L Phosphorus Magnesium Ferritin Total Bilirubin Direct Bilirubin AST 106 H ALT 60 H Ammonia Lactate Dehydrogenase C-Reactive Protein Total Protein 5.6 L Albumin 2.7 L Urine Creatinine Urine Total Protein Coronavirus (PCR) 04/11/22 04/11/22 04/11/22 05:14 06:19 08:23 WBC RBC Hgb Hct RDW Lymph % (Auto) Lymph # (Auto) Seg Neutrophils % Seg Neuts % (Manual) Lymphocytes % (Manual) Seg Neutrophils # Seg Neutrophils # Man Lymphocytes # (Manual) D-Dimer ABG pH ABG pO2 ABG HCO3 ABG O2 Saturation ABG Base Excess ABG Hemoglobin VBG pH Oxyhemoglobin Sodium Potassium Chloride Carbon Dioxide BUN Creatinine Glucose POC Glucose 134 H 144 H 143 H Lactic Acid Calcium Phosphorus Magnesium Ferritin Total Bilirubin Direct Bilirubin AST ALT Ammonia Lactate Dehydrogenase C-Reactive Protein Total Protein Albumin Urine Creatinine Urine Total Protein Coronavirus (PCR) 04/11/22 04/11/22 04/11/22 09:28 10:06 11:23 WBC RBC Hgb Hct RDW Lymph % (Auto) Lymph # (Auto) Seg Neutrophils % Seg Neuts % (Manual) Lymphocytes % (Manual) Seg Neutrophils # Seg Neutrophils # Man Lymphocytes # (Manual) D-Dimer ABG pH ABG pO2 ABG HCO3 ABG O2 Saturation ABG Base Excess ABG Hemoglobin VBG pH Oxyhemoglobin Sodium Potassium Chloride Carbon Dioxide BUN Creatinine Glucose POC Glucose 138 H Lactic Acid Calcium Phosphorus Magnesium Ferritin Total Bilirubin Direct Bilirubin AST ALT Ammonia Lactate Dehydrogenase C-Reactive Protein Total Protein Albumin Urine Creatinine 161.8 H 160.5 H Urine Total Protein Coronavirus (PCR) 04/11/22 04/11/22 04/12/22 15:59 23:58 00:01 WBC 16.2 H RBC Hgb Hct RDW 15.8 H Lymph % (Auto) 5.7 L Lymph # (Auto) 0.9 L Seg Neutrophils % 89.6 H Seg Neuts % (Manual) Lymphocytes % (Manual) Seg Neutrophils # 14.6 H Seg Neutrophils # Man Lymphocytes # (Manual) D-Dimer ABG pH ABG pO2 ABG HCO3 ABG O2 Saturation ABG Base Excess ABG Hemoglobin VBG pH Oxyhemoglobin Sodium Potassium Chloride Carbon Dioxide BUN Creatinine Glucose POC Glucose 166 H 150 H Lactic Acid Calcium Phosphorus Magnesium Ferritin Total Bilirubin Direct Bilirubin AST ALT Ammonia Lactate Dehydrogenase C-Reactive Protein Total Protein Albumin Urine Creatinine Urine Total Protein Coronavirus (PCR) 04/12/22 04/12/22 04/12/22 03:20 04:00 04:00 WBC RBC Hgb Hct RDW Lymph % (Auto) Lymph # (Auto) Seg Neutrophils % Seg Neuts % (Manual) Lymphocytes % (Manual) Seg Neutrophils # Seg Neutrophils # Man Lymphocytes # (Manual) D-Dimer 1874.86 H ABG pH 7.513 H ABG pO2 61.7 L ABG HCO3 ABG O2 Saturation 94.2 L ABG Base Excess ABG Hemoglobin 11.5 L VBG pH Oxyhemoglobin 92.6 L Sodium Potassium Chloride Carbon Dioxide BUN Creatinine Glucose POC Glucose Lactic Acid Calcium Phosphorus Magnesium Ferritin 890.0 H Total Bilirubin Direct Bilirubin AST ALT Ammonia Lactate Dehydrogenase C-Reactive Protein Total Protein Albumin Urine Creatinine Urine Total Protein Coronavirus (PCR) 04/12/22 04/12/22 04/12/22 04:00 04:20 04:59 WBC RBC Hgb Hct RDW Lymph % (Auto) Lymph # (Auto) Seg Neutrophils % Seg Neuts % (Manual) Lymphocytes % (Manual) Seg Neutrophils # Seg Neutrophils # Man Lymphocytes # (Manual) D-Dimer ABG pH ABG pO2 ABG HCO3 ABG O2 Saturation ABG Base Excess ABG Hemoglobin VBG pH Oxyhemoglobin Sodium 146 H Potassium Chloride 108.0 H Carbon Dioxide BUN 38 H Creatinine 2.3 H Glucose 173 H POC Glucose 146 H Lactic Acid Calcium 6.7 L Phosphorus Magnesium Ferritin Total Bilirubin Direct Bilirubin AST ALT Ammonia Lactate Dehydrogenase 763 H C-Reactive Protein 14.10 H Total Protein Albumin Urine Creatinine Urine Total Protein Coronavirus (PCR) 04/12/22 04/12/22 04/12/22 06:05 10:15 11:52 WBC RBC Hgb Hct RDW Lymph % (Auto) Lymph # (Auto) Seg Neutrophils % Seg Neuts % (Manual) Lymphocytes % (Manual) Seg Neutrophils # Seg Neutrophils # Man Lymphocytes # (Manual) D-Dimer ABG pH ABG pO2 ABG HCO3 ABG O2 Saturation ABG Base Excess ABG Hemoglobin VBG pH Oxyhemoglobin Sodium Potassium Chloride Carbon Dioxide BUN Creatinine Glucose POC Glucose 190 H 122 H 125 H Lactic Acid Calcium Phosphorus Magnesium Ferritin Total Bilirubin Direct Bilirubin AST ALT Ammonia Lactate Dehydrogenase C-Reactive Protein Total Protein Albumin Urine Creatinine Urine Total Protein Coronavirus (PCR) 04/12/22 04/13/22 04/13/22 13:18 00:14 03:41 WBC RBC Hgb Hct RDW Lymph % (Auto) Lymph # (Auto) Seg Neutrophils % Seg Neuts % (Manual) Lymphocytes % (Manual) Seg Neutrophils # Seg Neutrophils # Man Lymphocytes # (Manual) D-Dimer ABG pH 7.487 H ABG pO2 62.1 L ABG HCO3 ABG O2 Saturation 93.2 L ABG Base Excess ABG Hemoglobin 11.9 L VBG pH Oxyhemoglobin 91.5 L Sodium Potassium Chloride Carbon Dioxide BUN 38 H Creatinine 2.1 H Glucose 144 H POC Glucose 208 H Lactic Acid Calcium 7.1 L Phosphorus Magnesium Ferritin Total Bilirubin Direct Bilirubin AST ALT Ammonia Lactate Dehydrogenase C-Reactive Protein Total Protein Albumin Urine Creatinine Urine Total Protein Coronavirus (PCR) 04/13/22 04/13/22 04/14/22 04:31 04:31 03:54 WBC 13.9 H RBC Hgb Hct RDW 15.7 H Lymph % (Auto) Lymph # (Auto) Seg Neutrophils % Seg Neuts % (Manual) Lymphocytes % (Manual) Seg Neutrophils # Seg Neutrophils # Man Lymphocytes # (Manual) D-Dimer ABG pH 7.487 H ABG pO2 57.8 L ABG HCO3 ABG O2 Saturation 93.9 L ABG Base Excess ABG Hemoglobin 10.0 L VBG pH Oxyhemoglobin 92.3 L Sodium Potassium Chloride Carbon Dioxide BUN 42 H Creatinine 1.9 H Glucose 204 H POC Glucose Lactic Acid Calcium 7.4 L Phosphorus Magnesium Ferritin Total Bilirubin Direct Bilirubin AST ALT Ammonia Lactate Dehydrogenase C-Reactive Protein Total Protein Albumin Urine Creatinine Urine Total Protein Coronavirus (PCR) 04/14/22 04/14/22 04/14/22 07:28 07:28 07:28 WBC RBC Hgb Hct RDW Lymph % (Auto) Lymph # (Auto) Seg Neutrophils % Seg Neuts % (Manual) Lymphocytes % (Manual) Seg Neutrophils # Seg Neutrophils # Man Lymphocytes # (Manual) D-Dimer 5586.76 H ABG pH ABG pO2 ABG HCO3 ABG O2 Saturation ABG Base Excess ABG Hemoglobin VBG pH Oxyhemoglobin Sodium Potassium Chloride Carbon Dioxide BUN Creatinine Glucose POC Glucose Lactic Acid Calcium Phosphorus Magnesium Ferritin 454.7 H Total Bilirubin Direct Bilirubin AST ALT Ammonia Lactate Dehydrogenase 1345 H C-Reactive Protein 4.80 H Total Protein Albumin Urine Creatinine Urine Total Protein Coronavirus (PCR) 04/14/22 04/14/22 04/14/22 07:28 07:28 09:26 WBC 18.6 H RBC 3.59 L Hgb Hct RDW 15.6 H Lymph % (Auto) Lymph # (Auto) Seg Neutrophils % Seg Neuts % (Manual) Lymphocytes % (Manual) Seg Neutrophils # Seg Neutrophils # Man Lymphocytes # (Manual) D-Dimer ABG pH ABG pO2 ABG HCO3 ABG O2 Saturation ABG Base Excess ABG Hemoglobin VBG pH Oxyhemoglobin Sodium 149 H Potassium Chloride 110.3 H Carbon Dioxide BUN 57 H Creatinine 2.3 H Glucose 205 H POC Glucose Lactic Acid Calcium Phosphorus Magnesium 2.90 H Ferritin Total Bilirubin Direct Bilirubin AST ALT Ammonia Lactate Dehydrogenase C-Reactive Protein Total Protein Albumin Urine Creatinine Urine Total Protein Coronavirus (PCR) 04/14/22 04/14/22 04/14/22 11:52 15:41 17:18 WBC RBC Hgb Hct RDW Lymph % (Auto) Lymph # (Auto) Seg Neutrophils % Seg Neuts % (Manual) Lymphocytes % (Manual) Seg Neutrophils # Seg Neutrophils # Man Lymphocytes # (Manual) D-Dimer ABG pH 7.506 H ABG pO2 51.0 L ABG HCO3 ABG O2 Saturation 87.3 L ABG Base Excess ABG Hemoglobin 10.6 L VBG pH Oxyhemoglobin 85.4 L Sodium Potassium Chloride Carbon Dioxide BUN Creatinine Glucose POC Glucose 173 H 187 H Lactic Acid Calcium Phosphorus Magnesium Ferritin Total Bilirubin Direct Bilirubin AST ALT Ammonia Lactate Dehydrogenase C-Reactive Protein Total Protein Albumin Urine Creatinine Urine Total Protein Coronavirus (PCR) 04/15/22 04/15/22 04/15/22 00:03 03:43 05:47 WBC RBC Hgb Hct RDW Lymph % (Auto) Lymph # (Auto) Seg Neutrophils % Seg Neuts % (Manual) Lymphocytes % (Manual) Seg Neutrophils # Seg Neutrophils # Man Lymphocytes # (Manual) D-Dimer ABG pH 7.477 H ABG pO2 59.1 L ABG HCO3 ABG O2 Saturation 90.5 L ABG Base Excess ABG Hemoglobin 9.5 L VBG pH Oxyhemoglobin 88.7 L Sodium Potassium Chloride Carbon Dioxide BUN Creatinine Glucose POC Glucose 246 H 217 H Lactic Acid Calcium Phosphorus Magnesium Ferritin Total Bilirubin Direct Bilirubin AST ALT Ammonia Lactate Dehydrogenase C-Reactive Protein Total Protein Albumin Urine Creatinine Urine Total Protein Coronavirus (PCR) 04/15/22 04/15/22 04/15/22 09:40 10:00 12:00 WBC 19.3 H RBC 3.18 L Hgb 9.3 L Hct 27.7 L RDW 15.8 H Lymph % (Auto) Lymph # (Auto) Seg Neutrophils % Seg Neuts % (Manual) Lymphocytes % (Manual) Seg Neutrophils # Seg Neutrophils # Man Lymphocytes # (Manual) D-Dimer ABG pH ABG pO2 ABG HCO3 ABG O2 Saturation ABG Base Excess ABG Hemoglobin VBG pH Oxyhemoglobin Sodium 146 H Potassium Chloride 107.9 H Carbon Dioxide BUN 76 H Creatinine 1.9 H Glucose 214 H POC Glucose Lactic Acid 2.10 H* Calcium 7.7 L Phosphorus Magnesium Ferritin Total Bilirubin Direct Bilirubin AST ALT Ammonia Lactate Dehydrogenase C-Reactive Protein Total Protein Albumin Urine Creatinine Urine Total Protein Coronavirus (PCR) 04/15/22 04/15/22 04/15/22 12:21 17:51 21:39 WBC RBC Hgb Hct RDW Lymph % (Auto) Lymph # (Auto) Seg Neutrophils % Seg Neuts % (Manual) Lymphocytes % (Manual) Seg Neutrophils # Seg Neutrophils # Man Lymphocytes # (Manual) D-Dimer ABG pH ABG pO2 ABG HCO3 ABG O2 Saturation ABG Base Excess ABG Hemoglobin VBG pH Oxyhemoglobin Sodium Potassium Chloride Carbon Dioxide BUN Creatinine Glucose POC Glucose 236 H 255 H 223 H Lactic Acid Calcium Phosphorus Magnesium Ferritin Total Bilirubin Direct Bilirubin AST ALT Ammonia Lactate Dehydrogenase C-Reactive Protein Total Protein Albumin Urine Creatinine Urine Total Protein Coronavirus (PCR) 04/16/22 04/16/22 04/16/22 00:17 02:35 04:00 WBC RBC Hgb Hct RDW Lymph % (Auto) Lymph # (Auto) Seg Neutrophils % Seg Neuts % (Manual) Lymphocytes % (Manual) Seg Neutrophils # Seg Neutrophils # Man Lymphocytes # (Manual) D-Dimer ABG pH 7.318 L ABG pO2 71.1 L ABG HCO3 27.7 H ABG O2 Saturation 94.8 L ABG Base Excess ABG Hemoglobin 10.3 L VBG pH Oxyhemoglobin 92.9 L Sodium Potassium Chloride Carbon Dioxide BUN Creatinine Glucose POC Glucose 201 H Lactic Acid Calcium Phosphorus Magnesium Ferritin 446.2 H Total Bilirubin Direct Bilirubin AST ALT Ammonia Lactate Dehydrogenase C-Reactive Protein Total Protein Albumin Urine Creatinine Urine Total Protein Coronavirus (PCR) 04/16/22 04/16/22 04/16/22 04:00 06:00 Unknown WBC RBC Hgb Hct RDW Lymph % (Auto) Lymph # (Auto) Seg Neutrophils % Seg Neuts % (Manual) Lymphocytes % (Manual) Seg Neutrophils # Seg Neutrophils # Man Lymphocytes # (Manual) D-Dimer 3886.80 H ABG pH ABG pO2 ABG HCO3 ABG O2 Saturation ABG Base Excess ABG Hemoglobin VBG pH Oxyhemoglobin Sodium 148 H Potassium Chloride 109.9 H Carbon Dioxide BUN 84 H Creatinine 1.7 H Glucose 276 H POC Glucose Lactic Acid Calcium Phosphorus Magnesium Ferritin Total Bilirubin Direct Bilirubin 0.5 H AST 69 H ALT 120 H Ammonia Lactate Dehydrogenase 1467 H C-Reactive Protein 1.90 H Total Protein 5.9 L Albumin 3.5 L Urine Creatinine Urine Total Protein Coronavirus (PCR) 04/16/22 04/17/22 04/17/22 Unknown 05:12 05:12 WBC 25.2 H 22.2 H RBC 3.50 L Hgb Hct RDW 15.8 H 15.8 H Lymph % (Auto) Lymph # (Auto) Seg Neutrophils % Seg Neuts % (Manual) Lymphocytes % (Manual) Seg Neutrophils # Seg Neutrophils # Man Lymphocytes # (Manual) D-Dimer 3804.33 H ABG pH ABG pO2 ABG HCO3 ABG O2 Saturation ABG Base Excess ABG Hemoglobin VBG pH Oxyhemoglobin Sodium Potassium Chloride Carbon Dioxide BUN Creatinine Glucose POC Glucose Lactic Acid Calcium Phosphorus Magnesium Ferritin Total Bilirubin Direct Bilirubin AST ALT Ammonia Lactate Dehydrogenase C-Reactive Protein Total Protein Albumin Urine Creatinine Urine Total Protein Coronavirus (PCR) 04/17/22 04/17/22 04/17/22 05:12 17:27 20:04 WBC RBC Hgb Hct RDW Lymph % (Auto) Lymph # (Auto) Seg Neutrophils % Seg Neuts % (Manual) Lymphocytes % (Manual) Seg Neutrophils # Seg Neutrophils # Man Lymphocytes # (Manual) D-Dimer ABG pH ABG pO2 ABG HCO3 ABG O2 Saturation ABG Base Excess ABG Hemoglobin VBG pH Oxyhemoglobin Sodium 149 H Potassium 5.3 H Chloride 109.4 H Carbon Dioxide BUN 80 H Creatinine 1.5 H Glucose 320 H POC Glucose 308 H 301 H Lactic Acid Calcium Phosphorus Magnesium Ferritin Total Bilirubin Direct Bilirubin AST 171 H ALT 231 H Ammonia Lactate Dehydrogenase C-Reactive Protein Total Protein 5.4 L Albumin 3.7 L Urine Creatinine Urine Total Protein Coronavirus (PCR) 04/18/22 04/18/22 04/18/22 01:55 05:41 05:41 WBC RBC Hgb Hct RDW Lymph % (Auto) Lymph # (Auto) Seg Neutrophils % Seg Neuts % (Manual) Lymphocytes % (Manual) Seg Neutrophils # Seg Neutrophils # Man Lymphocytes # (Manual) D-Dimer ABG pH ABG pO2 ABG HCO3 ABG O2 Saturation ABG Base Excess ABG Hemoglobin VBG pH Oxyhemoglobin Sodium 156 H Potassium Chloride 117.8 H Carbon Dioxide BUN 69 H Creatinine 1.3 H Glucose 231 H POC Glucose 301 H Lactic Acid Calcium 8.3 L Phosphorus Magnesium Ferritin 570.8 H Total Bilirubin Direct Bilirubin AST ALT Ammonia Lactate Dehydrogenase 1473 H C-Reactive Protein Total Protein Albumin Urine Creatinine Urine Total Protein Coronavirus (PCR) 04/18/22 04/18/22 05:41 06:09 WBC 19.6 H RBC 3.38 L Hgb 9.7 L Hct 29.5 L RDW 15.9 H Lymph % (Auto) Lymph # (Auto) Seg Neutrophils % Seg Neuts % (Manual) Lymphocytes % (Manual) Seg Neutrophils # Seg Neutrophils # Man Lymphocytes # (Manual) D-Dimer ABG pH ABG pO2 ABG HCO3 ABG O2 Saturation ABG Base Excess ABG Hemoglobin VBG pH Oxyhemoglobin Sodium Potassium Chloride Carbon Dioxide BUN Creatinine Glucose POC Glucose 210 H Lactic Acid Calcium Phosphorus Magnesium Ferritin Total Bilirubin Direct Bilirubin AST ALT Ammonia Lactate Dehydrogenase C-Reactive Protein Total Protein Albumin Urine Creatinine Urine Total Protein Coronavirus (PCR)
--- NOTE | 2022-04-18 10:35 | Progress Note ---
Assessment and Plan Assessment and Plan # Acute encephalopathy, myoclonic jerks -possibly multi-factorial in part related to infection/encephalitis -CT brain is unremarkable - Brain MRI unremarkable -EEG is with 4-6 Hz no epileptiform discharges is noted -Avoid sedation as possible -continue to mnoitor -inflammation markers improved # NAD -Blood pressure monitoring per protocol -s/p vasopressor support with Levophed, dobutamine, vasopressin -MAP goal greater than 65 -Echocardiogram shows LVEF 55 to 60%, normal bivalve function, mildly dilated right ventricle # Acute hypoxic respiratory failure, ARDS -CCM consulted, appreciate recommendations -Intubated in the emergency department 04/09 with 7.00 ETT at 22 the lips -A.m. vent settings: Assist-control rate 20, tidal volume 400, PEEP 10, FiO2 55% -See RT notes for titration -A.m. ABG and CXR noted -VAP bundle -SPO2 monitoring # Transaminitis -24 hours +1080 ml -PPI -NTR consult for tube feedings -FWF 250 ml q4 -BR: [place] S -Trend LFTs # Acute kidney injury likely secondary to ischemic acute tubular necrosis, hypernatremia -Improved # Septic shock secondary to COVID-19 pneumonia, lactic acidosis -Infectious disease consulted, appreciate recommendations -Admit CXR showed bilateral air space opacities -Covid 19 PCR (+) -Antibiotic therapy with Rocephin (04/11-04/15) and vancomycin (04/11-04/14) -Decadron 8 mg daily for 10 days (04/09-04/18) -Per ID: Due to renal failure, not a candidate for remdesivir -S/p Actemra 04/10 -Contact/droplet precautions -f/u blood culture -Monitor WBC and temperature curve -Trend COVID-19 inflammatory markers #s/p DKA, h/o DM -S/p insulin drip -Avoid hypoglycemia -SSI and long-acting insulin, titrate as needed -Accu-Cheks every 6 # Leukocytosis, elevated Ddimer -BLE dopplar US shows no DVT -Trend CBC -Transfuse hemoglobin less than 7 -Lovenox subcu -Monitor for signs of bleeding -SCDs to BLE while in bed PLAN 1- Mantain as above 2- slight improvement in mental status --respond to voice ,not follow commands 3- MRI brain is noted 4- Avoid sedations 5- Pt therapy rang of motion 6- day light exposure 7- Treat underlying hyper-natremia will follow Subjective Date of service: 04/18/22 Principal diagnosis: encephalopathy Interval history: Off sedation X2 days she is slightly more interactive today move to voice when calling her name , not follow commands, with draw to sternal rub by moving both upper and to lesser extent lower extremities MRI brain is noted Unremarkable OFF decadron today Leukocyres is better #22.2--19.6 Hypernatremia NA#[id number] today DD#[id number] improved ferritin#570 CRP#0.8 Objective - Vital Sign Vital Signs - 12hr 04/17/22 04/17/22 04/18/22 23:01 23:45 00:00 Temperature 97.9 F Pulse Rate 126 H 126 H 125 H Pulse Rate [ 125 H From Monitor] Respiratory 22 24 22 Rate Blood Pressure 155/74 150/71 O2 Sat by Pulse 97 97 97 Oximetry 04/18/22 04/18/22 04/18/22 00:01 00:10 01:01 Temperature Pulse Rate 125 H 125 H 123 H Pulse Rate [ From Monitor] Respiratory 22 19 Rate Blood Pressure 154/73 154/73 152/73 O2 Sat by Pulse 97 97 97 Oximetry 04/18/22 04/18/22 04/18/22 02:01 03:01 04:00 Temperature 98 F Pulse Rate 126 H 122 H 119 H Pulse Rate [ 119 H From Monitor] Respiratory 21 20 18 Rate Blood Pressure 158/76 127/58 O2 Sat by Pulse 98 99 99 Oximetry 04/18/22 04/18/22 04/18/22 04:01 04:43 05:01 Temperature Pulse Rate 119 H 118 H 118 H Pulse Rate [ From Monitor] Respiratory 18 18 Rate Blood Pressure 130/57 121/56 126/56 O2 Sat by Pulse 99 99 99 Oximetry 04/18/22 04/18/22 04/18/22 06:01 07:01 08:00 Temperature 97.9 F Pulse Rate 117 H 116 H Pulse Rate [ From Monitor] Respiratory 18 18 Rate Blood Pressure 135/58 138/60 O2 Sat by Pulse 100 100 Oximetry 04/18/22 04/18/22 04/18/22 08:01 08:45 09:01 Temperature Pulse Rate 113 H 112 H 118 H Pulse Rate [ From Monitor] Respiratory 18 13 Rate Blood Pressure 130/57 147/63 147/63 O2 Sat by Pulse 100 100 100 Oximetry 04/18/22 04/18/22 10:01 10:17 Temperature Pulse Rate 113 H Pulse Rate [ From Monitor] Respiratory 18 Rate Blood Pressure 138/61 O2 Sat by Pulse 100 100 Oximetry - General Apperance Constitutional: comfortable - EENT EENT: PERRL, mucous membranes moist - Respiratory Respiratory: lungs clear, normal breath sounds, rhonchi - Cardiovascular Cardiovascular: regular rate, normal S1, normal S2 Extremities: no peripheral edema bilat, no clubbing, cyanosis - Gastrointestinal Gastrointestinal: normoactive bowel sounds - Integumentary Integumentary: normal - Neurologic Cranial nerve examination: PERRL, EOMI, intact Speech examination: other (intubated , not follow commands,off sedation) Detailed motor examination: other (withdraw to sternal rub move both upper and to lesser extent lower) - Laboratory Findings CBC and BMP: 04/18/22 05:41 04/18/22 05:41 Abnormal Lab Findings: Abnormal Labs 04/09/22 04/09/22 04/09/22 11:59 12:52 12:52 WBC RBC Hgb Hct RDW 15.3 H Lymph % (Auto) 8.4 L Lymph # (Auto) 0.7 L Seg Neutrophils % 84.6 H Seg Neuts % (Manual) Lymphocytes % (Manual) Seg Neutrophils # Seg Neutrophils # Man Lymphocytes # (Manual) D-Dimer ABG pH ABG pO2 ABG HCO3 ABG O2 Saturation ABG Base Excess ABG Hemoglobin VBG pH Oxyhemoglobin Sodium Potassium Chloride 112.7 H Carbon Dioxide 18 L BUN Creatinine 2.0 H Glucose 204 H POC Glucose 203 H Lactic Acid Calcium Phosphorus Magnesium Ferritin Total Bilirubin 1.30 H Direct Bilirubin AST 47 H ALT Ammonia Lactate Dehydrogenase C-Reactive Protein Total Protein Albumin Urine Creatinine Urine Total Protein Coronavirus (PCR) 04/09/22 04/09/22 04/09/22 12:52 12:52 13:02 WBC RBC Hgb Hct RDW Lymph % (Auto) Lymph # (Auto) Seg Neutrophils % Seg Neuts % (Manual) Lymphocytes % (Manual) Seg Neutrophils # Seg Neutrophils # Man Lymphocytes # (Manual) D-Dimer ABG pH ABG pO2 ABG HCO3 ABG O2 Saturation ABG Base Excess ABG Hemoglobin VBG pH 7.303 L Oxyhemoglobin Sodium Potassium Chloride Carbon Dioxide BUN Creatinine Glucose POC Glucose Lactic Acid Calcium Phosphorus Magnesium Ferritin Total Bilirubin Direct Bilirubin AST ALT Ammonia 20.0 L Lactate Dehydrogenase C-Reactive Protein Total Protein Albumin Urine Creatinine Urine Total Protein Coronavirus (PCR) Positive A 04/09/22 04/09/22 04/09/22 15:49 22:15 22:58 WBC RBC Hgb Hct RDW Lymph % (Auto) Lymph # (Auto) Seg Neutrophils % Seg Neuts % (Manual) Lymphocytes % (Manual) Seg Neutrophils # Seg Neutrophils # Man Lymphocytes # (Manual) D-Dimer ABG pH 7.097 L* ABG pO2 188.8 H ABG HCO3 7.4 L ABG O2 Saturation 99.1 H ABG Base Excess -20.7 L ABG Hemoglobin VBG pH Oxyhemoglobin Sodium Potassium Chloride 108.8 H Carbon Dioxide 10 L D BUN 20 H Creatinine 2.6 H Glucose 465 H POC Glucose Lactic Acid 2.70 H* Calcium 7.4 L Phosphorus Magnesium Ferritin Total Bilirubin Direct Bilirubin AST ALT Ammonia Lactate Dehydrogenase C-Reactive Protein Total Protein Albumin Urine Creatinine Urine Total Protein Coronavirus (PCR) 04/09/22 04/09/22 04/10/22 23:19 Unknown 00:03 WBC RBC Hgb Hct RDW Lymph % (Auto) Lymph # (Auto) Seg Neutrophils % Seg Neuts % (Manual) Lymphocytes % (Manual) Seg Neutrophils # Seg Neutrophils # Man Lymphocytes # (Manual) D-Dimer ABG pH ABG pO2 ABG HCO3 ABG O2 Saturation ABG Base Excess ABG Hemoglobin VBG pH Oxyhemoglobin Sodium Potassium Chloride Carbon Dioxide BUN Creatinine Glucose POC Glucose 356 H Lactic Acid 7.50 H* 6.10 H* Calcium Phosphorus Magnesium Ferritin Total Bilirubin Direct Bilirubin AST ALT Ammonia Lactate Dehydrogenase C-Reactive Protein Total Protein Albumin Urine Creatinine Urine Total Protein Coronavirus (PCR) 04/10/22 04/10/22 04/10/22 02:16 03:03 04:00 WBC RBC Hgb Hct RDW Lymph % (Auto) Lymph # (Auto) Seg Neutrophils % Seg Neuts % (Manual) Lymphocytes % (Manual) Seg Neutrophils # Seg Neutrophils # Man Lymphocytes # (Manual) D-Dimer ABG pH ABG pO2 ABG HCO3 ABG O2 Saturation ABG Base Excess ABG Hemoglobin VBG pH Oxyhemoglobin Sodium Potassium Chloride Carbon Dioxide BUN Creatinine Glucose POC Glucose 317 H 325 H 308 H Lactic Acid Calcium Phosphorus Magnesium Ferritin Total Bilirubin Direct Bilirubin AST ALT Ammonia Lactate Dehydrogenase C-Reactive Protein Total Protein Albumin Urine Creatinine Urine Total Protein Coronavirus (PCR) 04/10/22 04/10/22 04/10/22 04:24 04:24 04:24 WBC 16.4 H RBC Hgb Hct RDW 16.2 H Lymph % (Auto) Lymph # (Auto) Seg Neutrophils % Seg Neuts % (Manual) 94.0 H Lymphocytes % (Manual) 3.0 L Seg Neutrophils # Seg Neutrophils # Man 15.4 H Lymphocytes # (Manual) 0.5 L D-Dimer ABG pH ABG pO2 ABG HCO3 ABG O2 Saturation ABG Base Excess ABG Hemoglobin VBG pH Oxyhemoglobin Sodium Potassium 2.9 L* D Chloride 116.1 H Carbon Dioxide 11 L BUN 19 H Creatinine 2.5 H Glucose 376 H POC Glucose Lactic Acid Calcium 6.5 L Phosphorus 1.40 L Magnesium 1.60 L Ferritin Total Bilirubin Direct Bilirubin AST 107 H ALT 64 H Ammonia Lactate Dehydrogenase C-Reactive Protein Total Protein 5.5 L Albumin 2.8 L Urine Creatinine Urine Total Protein Coronavirus (PCR) 04/10/22 04/10/22 04/10/22 04:25 05:17 06:00 WBC RBC Hgb Hct RDW Lymph % (Auto) Lymph # (Auto) Seg Neutrophils % Seg Neuts % (Manual) Lymphocytes % (Manual) Seg Neutrophils # Seg Neutrophils # Man Lymphocytes # (Manual) D-Dimer ABG pH 7.095 L* ABG pO2 112.3 H ABG HCO3 8.7 L ABG O2 Saturation ABG Base Excess -19.7 L ABG Hemoglobin VBG pH Oxyhemoglobin Sodium Potassium Chloride Carbon Dioxide BUN Creatinine Glucose POC Glucose 343 H 278 H Lactic Acid Calcium Phosphorus Magnesium Ferritin Total Bilirubin Direct Bilirubin AST ALT Ammonia Lactate Dehydrogenase C-Reactive Protein Total Protein Albumin Urine Creatinine Urine Total Protein Coronavirus (PCR) 04/10/22 04/10/22 04/10/22 06:53 07:54 08:58 WBC RBC Hgb Hct RDW Lymph % (Auto) Lymph # (Auto) Seg Neutrophils % Seg Neuts % (Manual) Lymphocytes % (Manual) Seg Neutrophils # Seg Neutrophils # Man Lymphocytes # (Manual) D-Dimer ABG pH ABG pO2 ABG HCO3 ABG O2 Saturation ABG Base Excess ABG Hemoglobin VBG pH Oxyhemoglobin Sodium Potassium Chloride Carbon Dioxide BUN Creatinine Glucose POC Glucose 262 H 245 H 215 H Lactic Acid Calcium Phosphorus Magnesium Ferritin Total Bilirubin Direct Bilirubin AST ALT Ammonia Lactate Dehydrogenase C-Reactive Protein Total Protein Albumin Urine Creatinine Urine Total Protein Coronavirus (PCR) 04/10/22 04/10/22 04/10/22 10:12 10:51 11:47 WBC RBC Hgb Hct RDW Lymph % (Auto) Lymph # (Auto) Seg Neutrophils % Seg Neuts % (Manual) Lymphocytes % (Manual) Seg Neutrophils # Seg Neutrophils # Man Lymphocytes # (Manual) D-Dimer ABG pH ABG pO2 ABG HCO3 ABG O2 Saturation ABG Base Excess ABG Hemoglobin VBG pH Oxyhemoglobin Sodium 148 H Potassium 3.4 L Chloride 116.7 H Carbon Dioxide 15 L BUN 22 H Creatinine 2.7 H Glucose 190 H POC Glucose 206 H 176 H Lactic Acid Calcium 6.9 L Phosphorus Magnesium Ferritin Total Bilirubin Direct Bilirubin AST ALT Ammonia Lactate Dehydrogenase C-Reactive Protein Total Protein Albumin Urine Creatinine Urine Total Protein Coronavirus (PCR) 04/10/22 04/10/22 04/10/22 11:47 11:47 12:02 WBC RBC Hgb Hct RDW Lymph % (Auto) Lymph # (Auto) Seg Neutrophils % Seg Neuts % (Manual) Lymphocytes % (Manual) Seg Neutrophils # Seg Neutrophils # Man Lymphocytes # (Manual) D-Dimer ABG pH ABG pO2 ABG HCO3 ABG O2 Saturation ABG Base Excess ABG Hemoglobin VBG pH Oxyhemoglobin Sodium Potassium Chloride Carbon Dioxide BUN Creatinine Glucose POC Glucose 178 H Lactic Acid Calcium Phosphorus Magnesium Ferritin 1218.0 H Total Bilirubin Direct Bilirubin AST ALT Ammonia Lactate Dehydrogenase 482 H C-Reactive Protein 11.30 H Total Protein Albumin Urine Creatinine Urine Total Protein Coronavirus (PCR) 04/10/22 04/10/22 04/10/22 13:13 13:58 14:50 WBC RBC Hgb Hct RDW Lymph % (Auto) Lymph # (Auto) Seg Neutrophils % Seg Neuts % (Manual) Lymphocytes % (Manual) Seg Neutrophils # Seg Neutrophils # Man Lymphocytes # (Manual) D-Dimer ABG pH ABG pO2 ABG HCO3 ABG O2 Saturation ABG Base Excess ABG Hemoglobin VBG pH Oxyhemoglobin Sodium Potassium Chloride Carbon Dioxide BUN Creatinine Glucose POC Glucose 160 H 150 H Lactic Acid Calcium Phosphorus Magnesium Ferritin Total Bilirubin Direct Bilirubin AST ALT Ammonia Lactate Dehydrogenase C-Reactive Protein Total Protein Albumin Urine Creatinine 224.2 H Urine Total Protein 172 H Coronavirus (PCR) 04/10/22 04/10/22 04/10/22 15:24 16:38 16:56 WBC RBC Hgb Hct RDW Lymph % (Auto) Lymph # (Auto) Seg Neutrophils % Seg Neuts % (Manual) Lymphocytes % (Manual) Seg Neutrophils # Seg Neutrophils # Man Lymphocytes # (Manual) D-Dimer ABG pH ABG pO2 ABG HCO3 ABG O2 Saturation ABG Base Excess ABG Hemoglobin VBG pH Oxyhemoglobin Sodium Potassium Chloride Carbon Dioxide BUN Creatinine Glucose POC Glucose 140 H 154 H 149 H Lactic Acid Calcium Phosphorus Magnesium Ferritin Total Bilirubin Direct Bilirubin AST ALT Ammonia Lactate Dehydrogenase C-Reactive Protein Total Protein Albumin Urine Creatinine Urine Total Protein Coronavirus (PCR) 04/10/22 04/10/22 04/10/22 18:21 19:21 20:02 WBC RBC Hgb Hct RDW Lymph % (Auto) Lymph # (Auto) Seg Neutrophils % Seg Neuts % (Manual) Lymphocytes % (Manual) Seg Neutrophils # Seg Neutrophils # Man Lymphocytes # (Manual) D-Dimer ABG pH ABG pO2 ABG HCO3 ABG O2 Saturation ABG Base Excess ABG Hemoglobin VBG pH Oxyhemoglobin Sodium Potassium Chloride Carbon Dioxide BUN Creatinine Glucose POC Glucose 141 H 126 H 139 H Lactic Acid Calcium Phosphorus Magnesium Ferritin Total Bilirubin Direct Bilirubin AST ALT Ammonia Lactate Dehydrogenase C-Reactive Protein Total Protein Albumin Urine Creatinine Urine Total Protein Coronavirus (PCR) 04/10/22 04/10/22 04/10/22 21:04 21:58 22:20 WBC RBC Hgb Hct RDW Lymph % (Auto) Lymph # (Auto) Seg Neutrophils % Seg Neuts % (Manual) Lymphocytes % (Manual) Seg Neutrophils # Seg Neutrophils # Man Lymphocytes # (Manual) D-Dimer ABG pH ABG pO2 ABG HCO3 ABG O2 Saturation ABG Base Excess ABG Hemoglobin VBG pH Oxyhemoglobin Sodium Potassium Chloride 114.5 H Carbon Dioxide 17 L BUN 24 H Creatinine 2.5 H Glucose 165 H POC Glucose 144 H 161 H Lactic Acid Calcium 6.5 L Phosphorus Magnesium Ferritin Total Bilirubin Direct Bilirubin AST ALT Ammonia Lactate Dehydrogenase C-Reactive Protein Total Protein Albumin Urine Creatinine Urine Total Protein Coronavirus (PCR) 04/10/22 04/11/22 04/11/22 23:02 00:08 01:05 WBC RBC Hgb Hct RDW Lymph % (Auto) Lymph # (Auto) Seg Neutrophils % Seg Neuts % (Manual) Lymphocytes % (Manual) Seg Neutrophils # Seg Neutrophils # Man Lymphocytes # (Manual) D-Dimer ABG pH ABG pO2 ABG HCO3 ABG O2 Saturation ABG Base Excess ABG Hemoglobin VBG pH Oxyhemoglobin Sodium Potassium Chloride Carbon Dioxide BUN Creatinine Glucose POC Glucose 160 H 148 H 156 H Lactic Acid Calcium Phosphorus Magnesium Ferritin Total Bilirubin Direct Bilirubin AST ALT Ammonia Lactate Dehydrogenase C-Reactive Protein Total Protein Albumin Urine Creatinine Urine Total Protein Coronavirus (PCR) 04/11/22 04/11/22 04/11/22 01:30 02:05 03:04 WBC RBC Hgb Hct RDW Lymph % (Auto) Lymph # (Auto) Seg Neutrophils % Seg Neuts % (Manual) Lymphocytes % (Manual) Seg Neutrophils # Seg Neutrophils # Man Lymphocytes # (Manual) D-Dimer ABG pH ABG pO2 75.1 L ABG HCO3 17.2 L ABG O2 Saturation ABG Base Excess -5.8 L ABG Hemoglobin 11.5 L VBG pH Oxyhemoglobin Sodium Potassium Chloride Carbon Dioxide BUN Creatinine Glucose POC Glucose 150 H 168 H Lactic Acid Calcium Phosphorus Magnesium Ferritin Total Bilirubin Direct Bilirubin AST ALT Ammonia Lactate Dehydrogenase C-Reactive Protein Total Protein Albumin Urine Creatinine Urine Total Protein Coronavirus (PCR) 04/11/22 04/11/22 04/11/22 03:58 03:58 04:05 WBC 12.2 H RBC Hgb Hct RDW 15.7 H Lymph % (Auto) Lymph # (Auto) Seg Neutrophils % Seg Neuts % (Manual) Lymphocytes % (Manual) Seg Neutrophils # Seg Neutrophils # Man Lymphocytes # (Manual) D-Dimer ABG pH ABG pO2 ABG HCO3 ABG O2 Saturation ABG Base Excess ABG Hemoglobin VBG pH Oxyhemoglobin Sodium 147 H Potassium Chloride 114.2 H Carbon Dioxide 19 L BUN 26 H Creatinine 2.5 H Glucose 154 H POC Glucose 151 H Lactic Acid Calcium 6.8 L Phosphorus Magnesium Ferritin Total Bilirubin Direct Bilirubin AST 106 H ALT 60 H Ammonia Lactate Dehydrogenase C-Reactive Protein Total Protein 5.6 L Albumin 2.7 L Urine Creatinine Urine Total Protein Coronavirus (PCR) 04/11/22 04/11/22 04/11/22 05:14 06:19 08:23 WBC RBC Hgb Hct RDW Lymph % (Auto) Lymph # (Auto) Seg Neutrophils % Seg Neuts % (Manual) Lymphocytes % (Manual) Seg Neutrophils # Seg Neutrophils # Man Lymphocytes # (Manual) D-Dimer ABG pH ABG pO2 ABG HCO3 ABG O2 Saturation ABG Base Excess ABG Hemoglobin VBG pH Oxyhemoglobin Sodium Potassium Chloride Carbon Dioxide BUN Creatinine Glucose POC Glucose 134 H 144 H 143 H Lactic Acid Calcium Phosphorus Magnesium Ferritin Total Bilirubin Direct Bilirubin AST ALT Ammonia Lactate Dehydrogenase C-Reactive Protein Total Protein Albumin Urine Creatinine Urine Total Protein Coronavirus (PCR) 04/11/22 04/11/22 04/11/22 09:28 10:06 11:23 WBC RBC Hgb Hct RDW Lymph % (Auto) Lymph # (Auto) Seg Neutrophils % Seg Neuts % (Manual) Lymphocytes % (Manual) Seg Neutrophils # Seg Neutrophils # Man Lymphocytes # (Manual) D-Dimer ABG pH ABG pO2 ABG HCO3 ABG O2 Saturation ABG Base Excess ABG Hemoglobin VBG pH Oxyhemoglobin Sodium Potassium Chloride Carbon Dioxide BUN Creatinine Glucose POC Glucose 138 H Lactic Acid Calcium Phosphorus Magnesium Ferritin Total Bilirubin Direct Bilirubin AST ALT Ammonia Lactate Dehydrogenase C-Reactive Protein Total Protein Albumin Urine Creatinine 161.8 H 160.5 H Urine Total Protein Coronavirus (PCR) 04/11/22 04/11/22 04/12/22 15:59 23:58 00:01 WBC 16.2 H RBC Hgb Hct RDW 15.8 H Lymph % (Auto) 5.7 L Lymph # (Auto) 0.9 L Seg Neutrophils % 89.6 H Seg Neuts % (Manual) Lymphocytes % (Manual) Seg Neutrophils # 14.6 H Seg Neutrophils # Man Lymphocytes # (Manual) D-Dimer ABG pH ABG pO2 ABG HCO3 ABG O2 Saturation ABG Base Excess ABG Hemoglobin VBG pH Oxyhemoglobin Sodium Potassium Chloride Carbon Dioxide BUN Creatinine Glucose POC Glucose 166 H 150 H Lactic Acid Calcium Phosphorus Magnesium Ferritin Total Bilirubin Direct Bilirubin AST ALT Ammonia Lactate Dehydrogenase C-Reactive Protein Total Protein Albumin Urine Creatinine Urine Total Protein Coronavirus (PCR) 04/12/22 04/12/22 04/12/22 03:20 04:00 04:00 WBC RBC Hgb Hct RDW Lymph % (Auto) Lymph # (Auto) Seg Neutrophils % Seg Neuts % (Manual) Lymphocytes % (Manual) Seg Neutrophils # Seg Neutrophils # Man Lymphocytes # (Manual) D-Dimer 1874.86 H ABG pH 7.513 H ABG pO2 61.7 L ABG HCO3 ABG O2 Saturation 94.2 L ABG Base Excess ABG Hemoglobin 11.5 L VBG pH Oxyhemoglobin 92.6 L Sodium Potassium Chloride Carbon Dioxide BUN Creatinine Glucose POC Glucose Lactic Acid Calcium Phosphorus Magnesium Ferritin 890.0 H Total Bilirubin Direct Bilirubin AST ALT Ammonia Lactate Dehydrogenase C-Reactive Protein Total Protein Albumin Urine Creatinine Urine Total Protein Coronavirus (PCR) 04/12/22 04/12/22 04/12/22 04:00 04:20 04:59 WBC RBC Hgb Hct RDW Lymph % (Auto) Lymph # (Auto) Seg Neutrophils % Seg Neuts % (Manual) Lymphocytes % (Manual) Seg Neutrophils # Seg Neutrophils # Man Lymphocytes # (Manual) D-Dimer ABG pH ABG pO2 ABG HCO3 ABG O2 Saturation ABG Base Excess ABG Hemoglobin VBG pH Oxyhemoglobin Sodium 146 H Potassium Chloride 108.0 H Carbon Dioxide BUN 38 H Creatinine 2.3 H Glucose 173 H POC Glucose 146 H Lactic Acid Calcium 6.7 L Phosphorus Magnesium Ferritin Total Bilirubin Direct Bilirubin AST ALT Ammonia Lactate Dehydrogenase 763 H C-Reactive Protein 14.10 H Total Protein Albumin Urine Creatinine Urine Total Protein Coronavirus (PCR) 04/12/22 04/12/22 04/12/22 06:05 10:15 11:52 WBC RBC Hgb Hct RDW Lymph % (Auto) Lymph # (Auto) Seg Neutrophils % Seg Neuts % (Manual) Lymphocytes % (Manual) Seg Neutrophils # Seg Neutrophils # Man Lymphocytes # (Manual) D-Dimer ABG pH ABG pO2 ABG HCO3 ABG O2 Saturation ABG Base Excess ABG Hemoglobin VBG pH Oxyhemoglobin Sodium Potassium Chloride Carbon Dioxide BUN Creatinine Glucose POC Glucose 190 H 122 H 125 H Lactic Acid Calcium Phosphorus Magnesium Ferritin Total Bilirubin Direct Bilirubin AST ALT Ammonia Lactate Dehydrogenase C-Reactive Protein Total Protein Albumin Urine Creatinine Urine Total Protein Coronavirus (PCR) 04/12/22 04/13/22 04/13/22 13:18 00:14 03:41 WBC RBC Hgb Hct RDW Lymph % (Auto) Lymph # (Auto) Seg Neutrophils % Seg Neuts % (Manual) Lymphocytes % (Manual) Seg Neutrophils # Seg Neutrophils # Man Lymphocytes # (Manual) D-Dimer ABG pH 7.487 H ABG pO2 62.1 L ABG HCO3 ABG O2 Saturation 93.2 L ABG Base Excess ABG Hemoglobin 11.9 L VBG pH Oxyhemoglobin 91.5 L Sodium Potassium Chloride Carbon Dioxide BUN 38 H Creatinine 2.1 H Glucose 144 H POC Glucose 208 H Lactic Acid Calcium 7.1 L Phosphorus Magnesium Ferritin Total Bilirubin Direct Bilirubin AST ALT Ammonia Lactate Dehydrogenase C-Reactive Protein Total Protein Albumin Urine Creatinine Urine Total Protein Coronavirus (PCR) 04/13/22 04/13/22 04/14/22 04:31 04:31 03:54 WBC 13.9 H RBC Hgb Hct RDW 15.7 H Lymph % (Auto) Lymph # (Auto) Seg Neutrophils % Seg Neuts % (Manual) Lymphocytes % (Manual) Seg Neutrophils # Seg Neutrophils # Man Lymphocytes # (Manual) D-Dimer ABG pH 7.487 H ABG pO2 57.8 L ABG HCO3 ABG O2 Saturation 93.9 L ABG Base Excess ABG Hemoglobin 10.0 L VBG pH Oxyhemoglobin 92.3 L Sodium Potassium Chloride Carbon Dioxide BUN 42 H Creatinine 1.9 H Glucose 204 H POC Glucose Lactic Acid Calcium 7.4 L Phosphorus Magnesium Ferritin Total Bilirubin Direct Bilirubin AST ALT Ammonia Lactate Dehydrogenase C-Reactive Protein Total Protein Albumin Urine Creatinine Urine Total Protein Coronavirus (PCR) 04/14/22 04/14/22 04/14/22 07:28 07:28 07:28 WBC RBC Hgb Hct RDW Lymph % (Auto) Lymph # (Auto) Seg Neutrophils % Seg Neuts % (Manual) Lymphocytes % (Manual) Seg Neutrophils # Seg Neutrophils # Man Lymphocytes # (Manual) D-Dimer 5586.76 H ABG pH ABG pO2 ABG HCO3 ABG O2 Saturation ABG Base Excess ABG Hemoglobin VBG pH Oxyhemoglobin Sodium Potassium Chloride Carbon Dioxide BUN Creatinine Glucose POC Glucose Lactic Acid Calcium Phosphorus Magnesium Ferritin 454.7 H Total Bilirubin Direct Bilirubin AST ALT Ammonia Lactate Dehydrogenase 1345 H C-Reactive Protein 4.80 H Total Protein Albumin Urine Creatinine Urine Total Protein Coronavirus (PCR) 04/14/22 04/14/22 04/14/22 07:28 07:28 09:26 WBC 18.6 H RBC 3.59 L Hgb Hct RDW 15.6 H Lymph % (Auto) Lymph # (Auto) Seg Neutrophils % Seg Neuts % (Manual) Lymphocytes % (Manual) Seg Neutrophils # Seg Neutrophils # Man Lymphocytes # (Manual) D-Dimer ABG pH ABG pO2 ABG HCO3 ABG O2 Saturation ABG Base Excess ABG Hemoglobin VBG pH Oxyhemoglobin Sodium 149 H Potassium Chloride 110.3 H Carbon Dioxide BUN 57 H Creatinine 2.3 H Glucose 205 H POC Glucose Lactic Acid Calcium Phosphorus Magnesium 2.90 H Ferritin Total Bilirubin Direct Bilirubin AST ALT Ammonia Lactate Dehydrogenase C-Reactive Protein Total Protein Albumin Urine Creatinine Urine Total Protein Coronavirus (PCR) 04/14/22 04/14/22 04/14/22 11:52 15:41 17:18 WBC RBC Hgb Hct RDW Lymph % (Auto) Lymph # (Auto) Seg Neutrophils % Seg Neuts % (Manual) Lymphocytes % (Manual) Seg Neutrophils # Seg Neutrophils # Man Lymphocytes # (Manual) D-Dimer ABG pH 7.506 H ABG pO2 51.0 L ABG HCO3 ABG O2 Saturation 87.3 L ABG Base Excess ABG Hemoglobin 10.6 L VBG pH Oxyhemoglobin 85.4 L Sodium Potassium Chloride Carbon Dioxide BUN Creatinine Glucose POC Glucose 173 H 187 H Lactic Acid Calcium Phosphorus Magnesium Ferritin Total Bilirubin Direct Bilirubin AST ALT Ammonia Lactate Dehydrogenase C-Reactive Protein Total Protein Albumin Urine Creatinine Urine Total Protein Coronavirus (PCR) 04/15/22 04/15/22 04/15/22 00:03 03:43 05:47 WBC RBC Hgb Hct RDW Lymph % (Auto) Lymph # (Auto) Seg Neutrophils % Seg Neuts % (Manual) Lymphocytes % (Manual) Seg Neutrophils # Seg Neutrophils # Man Lymphocytes # (Manual) D-Dimer ABG pH 7.477 H ABG pO2 59.1 L ABG HCO3 ABG O2 Saturation 90.5 L ABG Base Excess ABG Hemoglobin 9.5 L VBG pH Oxyhemoglobin 88.7 L Sodium Potassium Chloride Carbon Dioxide BUN Creatinine Glucose POC Glucose 246 H 217 H Lactic Acid Calcium Phosphorus Magnesium Ferritin Total Bilirubin Direct Bilirubin AST ALT Ammonia Lactate Dehydrogenase C-Reactive Protein Total Protein Albumin Urine Creatinine Urine Total Protein Coronavirus (PCR) 04/15/22 04/15/22 04/15/22 09:40 10:00 12:00 WBC 19.3 H RBC 3.18 L Hgb 9.3 L Hct 27.7 L RDW 15.8 H Lymph % (Auto) Lymph # (Auto) Seg Neutrophils % Seg Neuts % (Manual) Lymphocytes % (Manual) Seg Neutrophils # Seg Neutrophils # Man Lymphocytes # (Manual) D-Dimer ABG pH ABG pO2 ABG HCO3 ABG O2 Saturation ABG Base Excess ABG Hemoglobin VBG pH Oxyhemoglobin Sodium 146 H Potassium Chloride 107.9 H Carbon Dioxide BUN 76 H Creatinine 1.9 H Glucose 214 H POC Glucose Lactic Acid 2.10 H* Calcium 7.7 L Phosphorus Magnesium Ferritin Total Bilirubin Direct Bilirubin AST ALT Ammonia Lactate Dehydrogenase C-Reactive Protein Total Protein Albumin Urine Creatinine Urine Total Protein Coronavirus (PCR) 04/15/22 04/15/22 04/15/22 12:21 17:51 21:39 WBC RBC Hgb Hct RDW Lymph % (Auto) Lymph # (Auto) Seg Neutrophils % Seg Neuts % (Manual) Lymphocytes % (Manual) Seg Neutrophils # Seg Neutrophils # Man Lymphocytes # (Manual) D-Dimer ABG pH ABG pO2 ABG HCO3 ABG O2 Saturation ABG Base Excess ABG Hemoglobin VBG pH Oxyhemoglobin Sodium Potassium Chloride Carbon Dioxide BUN Creatinine Glucose POC Glucose 236 H 255 H 223 H Lactic Acid Calcium Phosphorus Magnesium Ferritin Total Bilirubin Direct Bilirubin AST ALT Ammonia Lactate Dehydrogenase C-Reactive Protein Total Protein Albumin Urine Creatinine Urine Total Protein Coronavirus (PCR) 04/16/22 04/16/22 04/16/22 00:17 02:35 04:00 WBC RBC Hgb Hct RDW Lymph % (Auto) Lymph # (Auto) Seg Neutrophils % Seg Neuts % (Manual) Lymphocytes % (Manual) Seg Neutrophils # Seg Neutrophils # Man Lymphocytes # (Manual) D-Dimer ABG pH 7.318 L ABG pO2 71.1 L ABG HCO3 27.7 H ABG O2 Saturation 94.8 L ABG Base Excess ABG Hemoglobin 10.3 L VBG pH Oxyhemoglobin 92.9 L Sodium Potassium Chloride Carbon Dioxide BUN Creatinine Glucose POC Glucose 201 H Lactic Acid Calcium Phosphorus Magnesium Ferritin 446.2 H Total Bilirubin Direct Bilirubin AST ALT Ammonia Lactate Dehydrogenase C-Reactive Protein Total Protein Albumin Urine Creatinine Urine Total Protein Coronavirus (PCR) 04/16/22 04/16/22 04/16/22 04:00 06:00 Unknown WBC RBC Hgb Hct RDW Lymph % (Auto) Lymph # (Auto) Seg Neutrophils % Seg Neuts % (Manual) Lymphocytes % (Manual) Seg Neutrophils # Seg Neutrophils # Man Lymphocytes # (Manual) D-Dimer 3886.80 H ABG pH ABG pO2 ABG HCO3 ABG O2 Saturation ABG Base Excess ABG Hemoglobin VBG pH Oxyhemoglobin Sodium 148 H Potassium Chloride 109.9 H Carbon Dioxide BUN 84 H Creatinine 1.7 H Glucose 276 H POC Glucose Lactic Acid Calcium Phosphorus Magnesium Ferritin Total Bilirubin Direct Bilirubin 0.5 H AST 69 H ALT 120 H Ammonia Lactate Dehydrogenase 1467 H C-Reactive Protein 1.90 H Total Protein 5.9 L Albumin 3.5 L Urine Creatinine Urine Total Protein Coronavirus (PCR) 04/16/22 04/17/22 04/17/22 Unknown 05:12 05:12 WBC 25.2 H 22.2 H RBC 3.50 L Hgb Hct RDW 15.8 H 15.8 H Lymph % (Auto) Lymph # (Auto) Seg Neutrophils % Seg Neuts % (Manual) Lymphocytes % (Manual) Seg Neutrophils # Seg Neutrophils # Man Lymphocytes # (Manual) D-Dimer 3804.33 H ABG pH ABG pO2 ABG HCO3 ABG O2 Saturation ABG Base Excess ABG Hemoglobin VBG pH Oxyhemoglobin Sodium Potassium Chloride Carbon Dioxide BUN Creatinine Glucose POC Glucose Lactic Acid Calcium Phosphorus Magnesium Ferritin Total Bilirubin Direct Bilirubin AST ALT Ammonia Lactate Dehydrogenase C-Reactive Protein Total Protein Albumin Urine Creatinine Urine Total Protein Coronavirus (PCR) 04/17/22 04/17/22 04/17/22 05:12 17:27 20:04 WBC RBC Hgb Hct RDW Lymph % (Auto) Lymph # (Auto) Seg Neutrophils % Seg Neuts % (Manual) Lymphocytes % (Manual) Seg Neutrophils # Seg Neutrophils # Man Lymphocytes # (Manual) D-Dimer ABG pH ABG pO2 ABG HCO3 ABG O2 Saturation ABG Base Excess ABG Hemoglobin VBG pH Oxyhemoglobin Sodium 149 H Potassium 5.3 H Chloride 109.4 H Carbon Dioxide BUN 80 H Creatinine 1.5 H Glucose 320 H POC Glucose 308 H 301 H Lactic Acid Calcium Phosphorus Magnesium Ferritin Total Bilirubin Direct Bilirubin AST 171 H ALT 231 H Ammonia Lactate Dehydrogenase C-Reactive Protein Total Protein 5.4 L Albumin 3.7 L Urine Creatinine Urine Total Protein Coronavirus (PCR) 04/18/22 04/18/22 04/18/22 01:55 05:41 05:41 WBC RBC Hgb Hct RDW Lymph % (Auto) Lymph # (Auto) Seg Neutrophils % Seg Neuts % (Manual) Lymphocytes % (Manual) Seg Neutrophils # Seg Neutrophils # Man Lymphocytes # (Manual) D-Dimer ABG pH ABG pO2 ABG HCO3 ABG O2 Saturation ABG Base Excess ABG Hemoglobin VBG pH Oxyhemoglobin Sodium 156 H Potassium Chloride 117.8 H Carbon Dioxide BUN 69 H Creatinine 1.3 H Glucose 231 H POC Glucose 301 H Lactic Acid Calcium 8.3 L Phosphorus Magnesium Ferritin 570.8 H Total Bilirubin Direct Bilirubin AST ALT Ammonia Lactate Dehydrogenase 1473 H C-Reactive Protein Total Protein Albumin Urine Creatinine Urine Total Protein Coronavirus (PCR) 04/18/22 04/18/22 05:41 06:09 WBC 19.6 H RBC 3.38 L Hgb 9.7 L Hct 29.5 L RDW 15.9 H Lymph % (Auto) Lymph # (Auto) Seg Neutrophils % Seg Neuts % (Manual) Lymphocytes % (Manual) Seg Neutrophils # Seg Neutrophils # Man Lymphocytes # (Manual) D-Dimer ABG pH ABG pO2 ABG HCO3 ABG O2 Saturation ABG Base Excess ABG Hemoglobin VBG pH Oxyhemoglobin Sodium Potassium Chloride Carbon Dioxide BUN Creatinine Glucose POC Glucose 210 H Lactic Acid Calcium Phosphorus Magnesium Ferritin Total Bilirubin Direct Bilirubin AST ALT Ammonia Lactate Dehydrogenase C-Reactive Protein Total Protein Albumin Urine Creatinine Urine Total Protein Coronavirus (PCR)
[2022-04-18 11:35] LABS: Albumin 3.4 g/dL (3.9-5); Calcium 8.3 mg/dL (8.4-10.2)
--- NOTE | 2022-04-18 11:43 | Consultation ---
History of Present Illness Consult date: 04/18/22 Requesting physician: PILY ESCALANTE - History of present illness History of present illness: 77-year-old with history of diabetes and ovarian cancer in remission brought in by for altered sensorium. As per the patient has been feeling weak and short of breath for last 1 week. is also sick for 1 week but no shortness of breath. No fevers. No nausea or vomiting. In the morning when the patient woke up patient was severely used and not able to make any sense and still was talking. Patient is not vaccinated against COVID. Both and do not believe in COVID vaccination. No fevers nausea vomiting or diarrhea. No loss of taste or smell. Shortness of breath present. In the emergency room patient was very hypoxic on arrival. Patient had a reported 100% nonrebreather. Patient's initial oxygenation was 88 to 90%. Patient was tachypneic and blood pressure of 90/40 and respiratory rate with 44 and heart rate was 67. Patient was put on 100% nonrebreather. Patient responding to sternal rub. In the ED after couple of hours patient was intubated for protection of airway and patient getting more hypoxic. Past History Past Medical History: diabetes, other (Ovarian cancer) Past Surgical History: Other (unknown) Social history: no significant social history Family history: no significant family history Medications and Allergies Allergies Allergy/AdvReac Type Severity Reaction Status Date / Time No Known Allergies Allergy Verified 04/09/22 13:44 Active Meds: Active Medications Acetaminophen (Acetaminophen 325 Mg Tab) 650 mg PO Q4H PRN PRN Reason: Pain MILD(1-3)/Fever >100.5/[place] Dexamethasone (Dexamethasone 4 Mg/Ml Vial) 8 mg IV Q24H [facility] Stop: 04/18/22 19:01 Last Admin: 04/17/22 18:25 Dose: 8 mg Dextrose (Dextrose 50% In Water (25gm) 50 Ml Syringe) 0 ml IV Q30MIN PRN; Protocol PRN Reason: Hypoglycemia Famotidine (Famotidine 10 Mg Tab) 10 mg FEEDTUBE BID [facility] Last Admin: 04/18/22 09:57 Dose: Not Given Fentanyl (Fentanyl 100 Mcg/2 Ml Inj) 50 mcg IV Q10MIN PRN PRN Reason: ANALGESIA Heparin Sodium (Porcine) (Heparin 5,000 Unit/1 Ml Vial) 5,000 unit SUB-Q Q12HR [facility] Last Admin: 04/18/22 09:51 Dose: 5,000 unit Fentanyl Citrate (Fentanyl Drip Premix) 2,000 mcg in 100 mls @ 4.155 mls/hr IV TITR [facility]; Protocol Last Admin: 04/18/22 03:15 Dose: 2 mcg/kg/hr, 8.31 mls/hr Cefepime HCl (Cefepime/Ns 2 Gm/100 Ml) 2 gm in 100 mls @ 200 mls/hr IV Q12H [facility]; Protocol Last Admin: 04/18/22 06:57 Dose: 200 mls/hr Insulin Glargine (Insulin Glargine 100 Units/Ml) 30 units SUB-Q QHS [facility] Last Admin: 04/17/22 22:06 Dose: 30 units Insulin Human Lispro (Insulin Lispro 100 Unit/Ml) 0 unit SUB-Q Q6HR [facility]; Protocol Insulin Human Regular (Insulin Regular, Human 100 Units/1 Ml) 7 units SUB-Q Q6HR [facility] Stop: 04/19/22 06:01 Ondansetron HCl (Ondansetron 4 Mg/2 Ml Inj) 4 mg IV Q8H PRN PRN Reason: Nausea And Vomiting Senna/Docusate Sodium (Sennosides/Docusate Sodium 8.6/50 Mg Tab) 2 tab FEEDTUBE BID [facility] Last Admin: 04/18/22 09:57 Dose: Not Given Sodium Chloride (Sodium Chloride 0.9% 10 Ml Flush Syringe) 10 ml IV BID [facility] Last Admin: 04/18/22 09:51 Dose: 10 ml Sodium Chloride (Sodium Chloride 0.9% 10 Ml Flush Syringe) 10 ml IV PRN PRN PRN Reason: LINE FLUSH Exam Vital Signs Pulse BP Pulse Ox 67 90/40 90 04/09/22 11:32 04/09/22 11:32 04/09/22 11:32 - General physical appearance Positive: well developed, other - Eyes Positive: PERRL - Neck Positive: no masses, no bruits, trachea midline - Respiratory Positive: normal expansion - Cardiovascular Rhythm: regular - Extremities Extremities: no ischemia, No edema - Abdomen Abdomen: Present: soft, other (midline lower abdo incision.) - Integumentary no rash, no growths - Neurologic Neurologic: other (opens eyes no response to verbal stim, intubated ) Results - Labs 04/18/22 05:41 04/18/22 10:35 Abnormal lab results 04/17/22 04/17/22 04/18/22 Range/Units 17:27 20:04 01:55 WBC (4.5-11.0) K/mm3 RBC (3.65-5.03) M/mm3 Hgb (10.1-14.3) gm/dl Hct (30.3-42.9) % RDW (13.2-15.2) % Sodium (137-145) mmol/L Chloride (98-107) mmol/L Carbon Dioxide (22-30) mmol/L BUN (7-17) mg/dL Creatinine (0.6-1.2) mg/dL Glucose (65-100) mg/dL POC Glucose 308 H 301 H 301 H (70-105) mg/dL Calcium (8.4-10.2) mg/dL Ferritin (10.0-200.0) ng/mL AST (5-40) units/L ALT (7-56) units/L Lactate Dehydrogenase (91-180) units/L Total Protein (6.3-8.2) g/dL Albumin (3.9-5) g/dL 04/18/22 04/18/22 04/18/22 Range/Units 05:41 05:41 05:41 WBC 19.6 H (4.5-11.0) K/mm3 RBC 3.38 L (3.65-5.03) M/mm3 Hgb 9.7 L (10.1-14.3) gm/dl Hct 29.5 L (30.3-42.9) % RDW 15.9 H (13.2-15.2) % Sodium 156 H (137-145) mmol/L Chloride 117.8 H (98-107) mmol/L Carbon Dioxide (22-30) mmol/L BUN 69 H (7-17) mg/dL Creatinine 1.3 H (0.6-1.2) mg/dL Glucose 231 H (65-100) mg/dL POC Glucose (70-105) mg/dL Calcium 8.3 L (8.4-10.2) mg/dL Ferritin 570.8 H (10.0-200.0) ng/mL AST (5-40) units/L ALT (7-56) units/L Lactate Dehydrogenase 1473 H (91-180) units/L Total Protein (6.3-8.2) g/dL Albumin (3.9-5) g/dL 04/18/22 04/18/22 Range/Units 06:09 10:35 WBC (4.5-11.0) K/mm3 RBC (3.65-5.03) M/mm3 Hgb (10.1-14.3) gm/dl Hct (30.3-42.9) % RDW (13.2-15.2) % Sodium 156 H (137-145) mmol/L Chloride 118.2 H (98-107) mmol/L Carbon Dioxide 32 H (22-30) mmol/L BUN 66 H (7-17) mg/dL Creatinine 1.3 H (0.6-1.2) mg/dL Glucose 179 H (65-100) mg/dL POC Glucose 210 H (70-105) mg/dL Calcium 8.3 L (8.4-10.2) mg/dL Ferritin (10.0-200.0) ng/mL AST 91 H (5-40) units/L ALT 234 H (7-56) units/L Lactate Dehydrogenase (91-180) units/L Total Protein 5.3 L (6.3-8.2) g/dL Albumin 3.4 L (3.9-5) g/dL Diabetes panel 04/18/22 04/18/22 Range/Units 05:41 10:35 Sodium 156 H 156 H (137-145) mmol/L Potassium 4.9 4.8 (3.6-5.0) mmol/L Chloride 117.8 H 118.2 H (98-107) mmol/L Carbon Dioxide 30 32 H (22-30) mmol/L BUN 69 H 66 H (7-17) mg/dL Creatinine 1.3 H 1.3 H (0.6-1.2) mg/dL Glucose 231 H 179 H (65-100) mg/dL Calcium 8.3 L 8.3 L (8.4-10.2) mg/dL AST 91 H (5-40) units/L ALT 234 H (7-56) units/L Alkaline Phosphatase 106 (35-129) units/L Total Protein 5.3 L (6.3-8.2) g/dL Albumin 3.4 L (3.9-5) g/dL Calcium panel 04/18/22 04/18/22 Range/Units 05:41 10:35 Calcium 8.3 L 8.3 L (8.4-10.2) mg/dL Albumin 3.4 L (3.9-5) g/dL Pituitary panel 04/18/22 04/18/22 Range/Units 05:41 10:35 Sodium 156 H 156 H (137-145) mmol/L Potassium 4.9 4.8 (3.6-5.0) mmol/L Chloride 117.8 H 118.2 H (98-107) mmol/L Carbon Dioxide 30 32 H (22-30) mmol/L BUN 69 H 66 H (7-17) mg/dL Creatinine 1.3 H 1.3 H (0.6-1.2) mg/dL Glucose 231 H 179 H (65-100) mg/dL Calcium 8.3 L 8.3 L (8.4-10.2) mg/dL Adrenal panel 04/18/22 04/18/22 Range/Units 05:41 10:35 Sodium 156 H 156 H (137-145) mmol/L Potassium 4.9 4.8 (3.6-5.0) mmol/L Chloride 117.8 H 118.2 H (98-107) mmol/L Carbon Dioxide 30 32 H (22-30) mmol/L BUN 69 H 66 H (7-17) mg/dL Creatinine 1.3 H 1.3 H (0.6-1.2) mg/dL Glucose 231 H 179 H (65-100) mg/dL Calcium 8.3 L 8.3 L (8.4-10.2) mg/dL Total Bilirubin 0.70 (0.1-1.2) mg/dL AST 91 H (5-40) units/L ALT 234 H (7-56) units/L Alkaline Phosphatase 106 (35-129) units/L Total Protein 5.3 L (6.3-8.2) g/dL Albumin 3.4 L (3.9-5) g/dL Assessment and Plan 77 yo with depressed mental status. Pt intubated and with nasogastric tube for feeding. Consult for trach and peg. She tested pos for covid 9 days ago. will check CT abdo and pelvis for interum eval of ov ca and whether an egd peg can be done.
[2022-04-18] MEDS ORDERED: INSULIN NPH, HUMAN 100 UNIT/1 ML SUB-Q SCH (12:00)
[2022-04-18] MEDS: INSULIN REGULAR, HUMAN 100 UNITS/1 ML SUB-Q SCH ×3 (12:05→23:54)
--- NOTE | 2022-04-18 12:54 | Progress Note ---
Assessment and Plan Assessment: Acute Renal Failure likely secondary to Ischemic ATN due to Sepsis and Hypotenison COVID positive Sepsis Hypotension Diabetes Mellitus/DKA Acute Respiratory Failure Hypokalemia, now Hyperkalemic Metabolic Acidosis Hypophosphatemia Plan: Renal labs reviewed. Serum creatinine 1.3 today, yesterday's was 1.5. BUN rising at 66 today, yesterday's was 80. UOP was 3965 ml. Baseline serum creatinine unknown. Creatinine clearance on 04/11/22 was 24 ml/min Renal ultrasound- no obstruction Hypernatremia-Sodium 156 today. Start 1/2NS@ 75 ml/hr. Free water 400 ml every 4 hours via tube feeds- not getting due to NPO status COVID positive-as per ID Renally dose medications Obtain daily weights Monitor I/O's daily- Intake 2819, [id number] (-1145 ml) Will continue to monitor renal function closely Plan of care reviewed by Dr. Lang Subjective Date of service: 04/18/22 Principal diagnosis: encephalopathy Interval history: Patient with active COVID-19 infection, charts and labs reviewed. Objective - Vital Signs Vital signs: Vital Signs - 12hr 04/18/22 04/18/22 04/18/22 01:01 02:01 03:01 Temperature Pulse Rate 123 H 126 H 122 H Pulse Rate [ From Monitor] Respiratory 19 21 20 Rate Blood Pressure 152/73 158/76 127/58 O2 Sat by Pulse 97 98 99 Oximetry 04/18/22 04/18/22 04/18/22 04:00 04:01 04:43 Temperature 98 F Pulse Rate 119 H 119 H 118 H Pulse Rate [ 119 H From Monitor] Respiratory 18 18 Rate Blood Pressure 130/57 121/56 O2 Sat by Pulse 99 99 99 Oximetry 04/18/22 04/18/22 04/18/22 05:01 06:01 07:01 Temperature Pulse Rate 118 H 117 H 116 H Pulse Rate [ From Monitor] Respiratory 18 18 18 Rate Blood Pressure 126/56 135/58 138/60 O2 Sat by Pulse 99 100 100 Oximetry 04/18/22 04/18/22 04/18/22 08:00 08:01 08:45 Temperature 97.9 F Pulse Rate 113 H 113 H 112 H Pulse Rate [ 113 H From Monitor] Respiratory 18 18 Rate Blood Pressure 130/57 147/63 O2 Sat by Pulse 100 100 100 Oximetry 04/18/22 04/18/22 04/18/22 09:01 10:01 10:17 Temperature Pulse Rate 118 H 113 H Pulse Rate [ From Monitor] Respiratory 13 18 Rate Blood Pressure 147/63 138/61 O2 Sat by Pulse 100 100 100 Oximetry 04/18/22 04/18/22 11:01 12:00 Temperature Pulse Rate 114 H 114 H Pulse Rate [ From Monitor] Respiratory 18 Rate Blood Pressure 140/63 140/63 O2 Sat by Pulse 99 99 Oximetry - Lab 04/18/22 05:41 04/18/22 10:35 Most recent lab results ABG pH 7.318 pH Units (7.350-7.450) L 04/16/22 02:35 ABG pCO2 55.4 mm Hg 04/16/22 02:35 ABG pO2 71.1 mm Hg (80.0-90.0) L 04/16/22 02:35 ABG HCO3 27.7 mmol/L (20.0-26.0) H 04/16/22 02:35 ABG O2 Saturation 94.8 % (95.0-99.0) L 04/16/22 02:35 Calcium 8.3 mg/dL (8.4-10.2) L 04/18/22 10:35 Phosphorus 3.60 mg/dL (2.5-4.5) 04/14/22 07:28 Magnesium 2.90 mg/dL (1.7-2.3) H 04/14/22 07:28 Urine Creatinine 160.5 mg/dL (0.1-20.0) H 04/11/22 11:23 Urine Sodium 17 mmol/L 04/10/22 14:50 Urine Total Protein 172 mg/dL (5-11.8) H 04/10/22 14:50 Medications & Allergies - Medications Allergies/Adverse Reactions: Allergies No Known Allergies Allergy (Verified 04/09/22 13:44) Active Medications: Generic Name Dose Route Start Last Admin Trade Name Freq PRN Reason Stop Dose Admin Acetaminophen 650 mg 04/09/22 18:11 Acetaminophen 325 Mg Tab PO Q4H PRN Pain MILD(1-3)/Fever >100.5/[place] Dexamethasone 8 mg 04/09/22 19:00 04/17/22 18:25 Dexamethasone 4 Mg/Ml Vial IV 04/18/22 19:01 8 mg Q24H JO ANN Administration Dextrose 0 ml 04/10/22 00:40 Dextrose 50% In Water (25gm) 50 Ml Syringe IV Q30MIN PRN Hypoglycemia Protocol Famotidine 10 mg 04/14/22 10:00 04/18/22 09:57 Famotidine 10 Mg Tab FEEDTUBE Not Given BID JO ANN Fentanyl 50 mcg 04/15/22 09:25 Fentanyl 100 Mcg/2 Ml Inj IV Q10MIN PRN ANALGESIA Heparin Sodium (Porcine) 5,000 unit 04/17/22 10:00 04/18/22 09:51 Heparin 5,000 Unit/1 Ml Vial SUB-Q 5,000 unit Q12HR [facility] Administration Fentanyl Citrate 2,000 mcg in 100 mls @ 4.155 mls/hr 04/15/22 10:00 04/18/22 03:15 Fentanyl Drip Premix IV 2 mcg/kg/hr TITR JO ANN 8.31 mls/hr Administration Protocol 1 MCG/KG/HR Cefepime HCl 2 gm in 100 mls @ 200 mls/hr 04/16/22 19:00 04/18/22 06:57 Cefepime/Ns 2 Gm/100 Ml IV 200 mls/hr Q12H [facility] Administration Protocol Insulin Glargine 30 units 04/17/22 22:00 04/17/22 22:06 Insulin Glargine 100 Units/Ml SUB-Q 30 units QHS [facility] Administration Insulin Human Lispro 0 unit 04/18/22 12:00 Insulin Lispro 100 Unit/Ml SUB-Q Q6HR [facility] Protocol Insulin Human Regular 7 units 04/18/22 12:00 Insulin Regular, Human 100 Units/1 Ml SUB-Q 04/19/22 06:01 Q6HR [facility] Ondansetron HCl 4 mg 04/09/22 18:11 Ondansetron 4 Mg/2 Ml Inj IV Q8H PRN Nausea And Vomiting Senna/Docusate Sodium 2 tab 04/15/22 14:00 04/18/22 09:57 Sennosides/Docusate Sodium 8.6/50 Mg Tab FEEDTUBE Not Given BID JO ANN Sodium Chloride 10 ml 04/09/22 22:00 04/18/22 09:51 Sodium Chloride 0.9% 10 Ml Flush Syringe IV 10 ml BID JO ANN Administration Sodium Chloride 10 ml 04/09/22 18:11 Sodium Chloride 0.9% 10 Ml Flush Syringe IV PRN PRN LINE FLUSH
--- NOTE | 2022-04-18 12:54 | Progress Note ---
<KEE GONZALEZ - Last Filed: 04/18/22 17:40> Assessment and Plan Assessment and plan: This is a 77-year-old female with DM and ovarian cancer in remission admitted for septic shock secondary to COVID-19 pneumonia, acute kidney injury, acute hypoxic respiratory failure and currently in multiorgan failure Hospital Course to Date: 04/10: Patient noted to have myoclonic jerking this morning and was given 2 mg of Ativan which aborted the jerking. Neurology was consulted and MRI and EEG were ordered. Patient admits to [facility] for MRI at this time. Patient is hypotensive and currently on Levophed, vasopressin and dobutamine. Nephrology consulted for renal failure. Remains on insulin drip and was placed on a bicarbonate drip this morning. Infectious disease consulted who added vancomy socrates and ordered follow-up labs. Dr. Craig had a conversation with family about prognosis and given multisystem organ failure. We will continue supportive care. 04/11/22-patient seen at bedside. T/V orally intubated. No purposeful response on assessment. make periodic jerking movement. EEG done today-will f/u with result. BICarb d/c -acidosis has improved-started on D5 11/28 NS. Reviewed specialist note and reces-renal US-no acute finding. Continue Pressors for MAPs >65. Wean as tolerated. Bicarb-d/c and start D5W. 04/12: Patient is following commands, nutrition consulted for tube feedings, PEEP decreased with possible PSV in the a.m., insulin drip discontinued and SSI/basal dose insulin started. [facility] will update son. 04/13: Renal function continues to improve, intermittently following commands, [facility] ordered 1 x 40 mg of Lasix repeat CXR in the a.m. Tolerating tube feedings. 04/14: PEEP increased per [facility], will not repeat Lasix again due to increasing renal functions. Ordered CT head. Overnight patient was tachypneic and agitated and Precedex drip was started. We will start Seroquel and wean Precedex as tolerated. 04/15: IVF started by nephro yesterday for hypernatremia, awaiting BMP for today to result. Overnight patient was started on propofol and has propofol and precedex infusing. Fentanyl gtt ordered and precedex gtt discontinued. 04/16: Patient remains on the vent, back on sedation overnight due to vent unsynchrony. Remains encephalopathic, EEG pending, Neurology reconsulted. Continue FWF Q4hrs for hypernatremia and SSI and basal insulin adjusted for better glycemic control. Worsening leukocytosis noted, patient remains afebrile. Patient completed X5 of IV Abx and still on IV steroids, will continue to monitor for now. ID is also following. D/C CCM plan for family phone conference with patient's son tomorrow to discuss goal of care. 04/17: Remains on the vent, mentation is unchanged, MRI and Neurology recs noted. FWF increased due to persistent hypernatremia, X1 dose of kayexalate was also given for hyperkalemia, renal function is improvement. Continue to monitor renal function and electrolytes. Insulin was adjusted for hyperglycemia. Plan for possible family conference meeting today with the policy change clerk. 04/18: With worsening hypernatremia this am despite Q4hrs FWF and X1 L of D5 per Nephro. Unclear etiology at this time. Will continue FWF for now and Nephro is also following. ABD US pending for elevated LTFs, will continue to trend LFTs. Still hyperglycemic, insulin adjusted. Patient's family opted for trach and PEG. General Surgery consulted. Neuro: Acute Metabolic Encephalopathy Myoclonic Jerks -Myoclonic jerking aborted with Ativan early in admission but none noted since -Initial CT head showed no acute abnormality -EEG absence of definite epileptiform abnormalities would not rule out the possibility of epilepsy, compatible with moderate to moderately severe diffuse encephalopathy -Repeat CTH shows no acute abnormality -MRI Brain noted -repeat eeg pending -Neurology reconsulted -Avoid delirium -Reorientation as needed -Maintain sleep-wake cycle Cardiac: NAD -Blood pressure monitoring per protocol -s/p vasopressor support with Levophed, dobutamine, vasopressin -MAP goal greater than 65 -Echocardiogram shows LVEF 55 to 60%, normal bivalve function, mildly dilated right ventricle Respiratory: Acute hypoxic respiratory failure ARDS COVID Pneumonia -CCM consulted, appreciate recommendations -Intubated in the emergency department 04/09 with 7.00 ETT at 22 the lips -Vent setting:PRVC- 40%,6,18,400 -A.m. ABG and CXR noted -CCM consulted, appreciate recommendations -Continue IV Steroids and Nebs per CCM -Continue IV Abx per ID -VAP bundle addressed -Aspiration precaution HOB above 30 -Daily ABG and CXR -Continue SPO2 monitoring for SPO2 goal above 92% -Patient family opted for trach and PEG -General Surgery consulted : Acute kidney injury likely secondary to ischemic acute tubular necrosis Hypernatremia -FeNa calculated at 0.13 -Renal ultrasound Shows mild echogenic kidneys which can be seen in medical renal disease, no hydronephrosis, small amount of free fluid in the abdomen -Nephrology consulted, appreciate recommendations -Renal function continue to improve -Worsen hypernatremia despite D5 gtt and Q4hrs FWF, unclear etiology at this time -FWF increased -Strict intake and output -Renally dose medications -Avoid nephrotoxic medications -Daily weights -Monitor and replace electrolytes as needed ID: Septic shock secondary to COVID-19 pneumonia Lactic Acidosis Leukocytosis -Infectious disease consulted, appreciate recommendations -Admit CXR showed bilateral air space opacities -Covid 19 PCR (+) -Antibiotic therapy with Rocephin (04/11-04/15) and vancomycin (04/11-04/14) -Decadron 8 mg daily for 10 days (04/09-04/18) -Now on Cefepine per ID -Per ID: Due to renal failure, not a candidate for remdesivir -S/p Actemra 04/10 -Contact/droplet precautions -f/u blood culture -Monitor WBC and temperature curve -Trend COVID-19 inflammatory markers Endo: h/o DM s/p DKA -S/p insulin drip -Remain hyperglycemic, probably due to IV steroids -SSI and Lantus adjusted -Continue Accu-Cheks every 6 -While critically ill target blood glucose of 140-180 Elevated Ddimer -most likely due to COVID -BLE dopplar US shows no DVT -Continue to trend inflammatory markers -Lovenox subcu -Monitor for signs of bleeding -SCDs to BLE while in bed -Transfuse hemoglobin less than 7 GI: Transaminitis -Presented with elevated LFTs -LTFs still labile -Abd US pending -Continue to trend LFTs GI/DVT Prophylaxis -PPI- Pepcid -Lovenox switch to heparin subQ due to ASHLEY -SCDs to bilateral lower extremities while in bed The high probability of a clinically significant, sudden or life threatening deterioration of the [multi] system(s) required my full and direct attention, intervention and personal management. The aggregate critical care time was [60] minutes. This time is in addition to time spent performing reported procedures but includes the following: [x] Data Review and interpretation [x] Patient assessment and monitoring of vital signs [x] Documentation [x] Medication orders and management Disposition Plan: ICU Total Time Spent with Patient (Minutes): 60 History Interval history: Patient seen and examined at the bedside. Remains intubated and on sedation. Open eyes spontaneously and tracking this mroning, but does not follow commands. Pupils are round and reactive, GILES overnight Hospitalist Physical - Physical exam Narrative exam: General appearance: Present: no acute distress, well-nourished, obese, other (I ntubated and sedated) - EENT Eyes: Present: PERRL ENT: other (Dry oral mucosa) - Neck Neck: Present: normal ROM - Respiratory Respiratory effort: normal Respiratory: bilateral: rhonchi - Cardiovascular Rhythm: regular Heart Sounds: Present: S1 & S2 - Extremities Extremities: no ischemia, pulses intact, pulses symmetrical Extremity abnormal: edema - Peripheral Assessment Bilateral Upper Extremity Edema Type: Pitting Edema Degree: 2+ Capillary Refill: < 3 seconds Skin Temperature: Warm Generalized Edema Type: Non-pitting Edema Degree: 2+ Capillary Refill: < 3 seconds Skin Temperature: Warm Peripheral Pulses: within normal limits - Abdominal General gastrointestinal: soft, non-distended, normal bowel sounds - Integumentary Integumentary: Present: warm, dry - Psychiatric Psychiatric: other (Intubated and sedated) - Neurologic Neurologic: moves all extremities (Non-purposeful movement of BUE, no movement in lower extremities), other (Intubated and sedated. Open eyes spontaneously, and tracking but does not follow commands. Pupils are round and reactive) - Allied Health Allied health notes reviewed: nursing, case management - Constitutional Vitals: Temp Pulse Resp BP Pulse Ox 97.9 F 114 H 18 140/63 99 04/18/22 08:00 04/18/22 12:00 04/18/22 11:01 04/18/22 12:00 04/18/22 12:00 HEART Score - HEART Score Age: > 65 Risk factors: 1-2 risk factors Troponin: Troponin T < 0.010 ng/mL (0.00-0.029) 04/09/22 12:52 Troponin: < normal limit - Critical Actions Critical Actions: 4-6 pts:12-16.6% risk of adverse cardiac event. Should be admitted Results - Labs CBC & Chem 7: 04/18/22 05:41 04/18/22 10:35 Labs: Laboratory Last Values WBC 19.6 K/mm3 (4.5-11.0) H 04/18/22 05:41 RBC 3.38 M/mm3 (3.65-5.03) L 04/18/22 05:41 Hgb 9.7 gm/dl (10.1-14.3) L 04/18/22 05:41 Hct 29.5 % (30.3-42.9) L 04/18/22 05:41 MCV 87 fl (79-97) 04/18/22 05:41 MCH 29 pg (28-32) 04/18/22 05:41 MCHC 33 % (30-34) 04/18/22 05:41 RDW 15.9 % (13.2-15.2) H 04/18/22 05:41 Plt Count 142 K/mm3 (140-440) 04/18/22 05:41 Lymph % (Auto) 5.7 % (13.4-35.0) L 04/12/22 00:01 [place] % (Auto) 4.5 % (0.0-7.3) 04/12/22 00:01 Eos % (Auto) 0.0 % (0.0-4.3) 04/12/22 00:01 Baso % (Auto) 0.2 % (0.0-1.8) 04/12/22 00:01 Lymph # (Auto) 0.9 K/mm3 (1.2-5.4) L 04/12/22 00:01 [place] # (Auto) 0.7 K/mm3 (0.0-0.8) 04/12/22 00:01 Eos # (Auto) 0.0 K/mm3 (0.0-0.4) 04/12/22 00:01 Baso # (Auto) 0.0 K/mm3 (0.0-0.1) 04/12/22 00:01 Add Manual Diff Complete 04/10/22 04:24 Total Counted 100 04/10/22 04:24 Seg Neutrophils % 89.6 % (40.0-70.0) H 04/12/22 00:01 Seg Neuts % (Manual) 94.0 % (40.0-70.0) H 04/10/22 04:24 Band Neutrophils % 0 % 04/10/22 04:24 Lymphocytes % (Manual) 3.0 % (13.4-35.0) L 04/10/22 04:24 Reactive Lymphs % (Man) 0 % 04/10/22 04:24 Monocytes % (Manual) 3.0 % (0.0-7.3) 04/10/22 04:24 Eosinophils % (Manual) 0 % (0.0-4.3) 04/10/22 04:24 Basophils % (Manual) 0 % (0.0-1.8) 04/10/22 04:24 Metamyelocytes % 0 % 04/10/22 04:24 Myelocytes % 0 % 04/10/22 04:24 Promyelocytes % 0 % 04/10/22 04:24 Blast Cells % 0 % 04/10/22 04:24 Nucleated RBC % Not Reportable 04/10/22 04:24 Seg Neutrophils # 14.6 K/mm3 (1.8-7.7) H 04/12/22 00:01 Seg Neutrophils # Man 15.4 K/mm3 (1.8-7.7) H 04/10/22 04:24 Band Neutrophils # 0.0 K/mm3 04/10/22 04:24 Lymphocytes # (Manual) 0.5 K/mm3 (1.2-5.4) L 04/10/22 04:24 Abs React Lymphs (Man) 0.0 K/mm3 04/10/22 04:24 Monocytes # (Manual) 0.5 K/mm3 (0.0-0.8) 04/10/22 04:24 Eosinophils # (Manual) 0.0 K/mm3 (0.0-0.4) 04/10/22 04:24 Basophils # (Manual) 0.0 K/mm3 (0.0-0.1) 04/10/22 04:24 Metamyelocytes # 0.0 K/mm3 04/10/22 04:24 Myelocytes # 0.0 K/mm3 04/10/22 04:24 Promyelocytes # 0.0 K/mm3 04/10/22 04:24 Blast Cells # 0.0 K/mm3 04/10/22 04:24 WBC Morphology Not Reportable 04/10/22 04:24 Hypersegmented Neuts Not Reportable 04/10/22 04:24 Hyposegmented Neuts Not Reportable 04/10/22 04:24 Hypogranular Neuts Not Reportable 04/10/22 04:24 Smudge Cells Not Reportable 04/10/22 04:24 Toxic Granulation Not Reportable 04/10/22 04:24 Toxic Vacuolation Not Reportable 04/10/22 04:24 Dohle Bodies Not Reportable 04/10/22 04:24 Pelger-Huet Anomaly Not Reportable 04/10/22 04:24 Aleja Rods Not Reportable 04/10/22 04:24 Platelet Estimate Consistent w auto 04/10/22 04:24 Clumped Platelets Not Reportable 04/10/22 04:24 Plt Clumps, EDTA Not Reportable 04/10/22 04:24 Large Platelets Not Reportable 04/10/22 04:24 Giant Platelets Rare 04/10/22 04:24 Platelet Satelliting Not Reportable 04/10/22 04:24 Plt Morphology Comment Not Reportable 04/10/22 04:24 RBC Morphology Normal 04/10/22 04:24 Dimorphic RBCs Not Reportable 04/10/22 04:24 Polychromasia Not Reportable 04/10/22 04:24 Hypochromasia Not Reportable 04/10/22 04:24 Poikilocytosis Not Reportable 04/10/22 04:24 Anisocytosis Not Reportable 04/10/22 04:24 Microcytosis Not Reportable 04/10/22 04:24 Macrocytosis Not Reportable 04/10/22 04:24 Spherocytes Not Reportable 04/10/22 04:24 Pappenheimer Bodies Not Reportable 04/10/22 04:24 Sickle Cells Not Reportable 04/10/22 04:24 Target Cells Not Reportable 04/10/22 04:24 Tear Drop Cells Not Reportable 04/10/22 04:24 Ovalocytes Not Reportable 04/10/22 04:24 Helmet Cells Not Reportable 04/10/22 04:24 [place] Bodies Not Reportable 04/10/22 04:24 [place] Rings Not Reportable 04/10/22 04:24 [place] Cells Not Reportable 04/10/22 04:24 Bite Cells Not Reportable 04/10/22 04:24 Crenated Cell Not Reportable 04/10/22 04:24 Elliptocytes Not Reportable 04/10/22 04:24 Acanthocytes (Spur) Not Reportable 04/10/22 04:24 Rouleaux Not Reportable 04/10/22 04:24 Hemoglobin C Crystals Not Reportable 04/10/22 04:24 Schistocytes Not Reportable 04/10/22 04:24 Malaria parasites Not Reportable 04/10/22 04:24 Allan Bodies Not Reportable 04/10/22 04:24 Hem Pathologist Commnt No 04/10/22 04:24 PT 14.5 Sec. (12.2-14.9) 04/09/22 12:52 INR 1.02 (0.87-1.13) 04/09/22 12:52 D-Dimer 3804.33 ng/mlDDU (0-234) H 04/17/22 05:12 ABG pH 7.318 pH Units (7.350-7.450) L 04/16/22 02:35 ABG pCO2 55.4 mm Hg 04/16/22 02:35 ABG pO2 71.1 mm Hg (80.0-90.0) L 04/16/22 02:35 ABG HCO3 27.7 mmol/L (20.0-26.0) H 04/16/22 02:35 ABG O2 Saturation 94.8 % (95.0-99.0) L 04/16/22 02:35 ABG O2 Content 13.6 (0.0-44) 04/16/22 02:35 ABG Base Excess 0.9 mmol/L (-2.0-3.0) 04/16/22 02:35 ABG Hemoglobin 10.3 gm/dl (12.0-16.0) L 04/16/22 02:35 ABG Carboxyhemoglobin 1.5 % (0.0-5.0) 04/16/22 02:35 ABG Methemoglobin 0.5 % (0.0-1.5) 04/16/22 02:35 VBG pH 7.303 (7.320-7.420) L 04/09/22 12:52 Oxyhemoglobin 92.9 % (95.0-99.0) L 04/16/22 02:35 FiO2 55 % 04/16/22 02:35 Sodium 156 mmol/L (137-145) H 04/18/22 10:35 Potassium 4.8 mmol/L (3.6-5.0) 04/18/22 10:35 Chloride 118.2 mmol/L (98-107) H 04/18/22 10:35 Carbon Dioxide 32 mmol/L (22-30) H 04/18/22 10:35 Anion Gap 11 mmol/L 04/18/22 10:35 BUN 66 mg/dL (7-17) H 04/18/22 10:35 Creatinine 1.3 mg/dL (0.6-1.2) H 04/18/22 10:35 Estimated GFR 48 ml/min 04/18/22 10:35 BUN/Creatinine Ratio 51 % 04/18/22 10:35 Glucose 179 mg/dL (65-100) H 04/18/22 10:35 POC Glucose 210 mg/dL (70-105) H 04/18/22 06:09 Lactic Acid 2.10 mmol/L (0.7-2.0) H* 04/15/22 12:00 Calcium 8.3 mg/dL (8.4-10.2) L 04/18/22 10:35 Phosphorus 3.60 mg/dL (2.5-4.5) 04/14/22 07:28 Magnesium 2.90 mg/dL (1.7-2.3) H 04/14/22 07:28 Ferritin 570.8 ng/mL (10.0-200.0) H 04/18/22 05:41 Total Bilirubin 0.70 mg/dL (0.1-1.2) 04/18/22 10:35 Direct Bilirubin 0.5 mg/dL (0-0.2) H 04/16/22 04:00 Indirect Bilirubin 0.4 mg/dL 04/16/22 04:00 AST 91 units/L (5-40) H 04/18/22 10:35 ALT 234 units/L (7-56) H 04/18/22 10:35 Alkaline Phosphatase 106 units/L (35-129) 04/18/22 10:35 Ammonia 20.0 umol/L (25-60) L 04/09/22 12:52 Lactate Dehydrogenase 1473 units/L (91-180) H 04/18/22 05:41 Troponin T < 0.010 ng/mL (0.00-0.029) 04/09/22 12:52 C-Reactive Protein 0.80 mg/dL (0.00-1.30) 04/18/22 05:41 NT-Pro-B Natriuret Pep 101.1 pg/mL (0-900) 04/09/22 13:45 Total Protein 5.3 g/dL (6.3-8.2) L 04/18/22 10:35 Albumin 3.4 g/dL (3.9-5) L 04/18/22 10:35 Albumin/Globulin Ratio 1.8 % 04/18/22 10:35 Procalcitonin 3.13 ng/mL (<0.15) 04/10/22 11:47 TSH 1.560 mlU/mL (0.270-4.200) 04/09/22 12:52 Free T4 1.33 ng/dL (0.76-1.46) 04/09/22 12:52 Urine Color Yellow (Yellow) 04/09/22 13:24 Urine Turbidity Clear (Clear) 04/09/22 13:24 Urine pH 5.0 (5.0-7.0) 04/09/22 13:24 Ur Specific Romeo 1.011 (1.003-1.030) 04/09/22 13:24 Urine Protein 30 mg/dl mg/dL (Negative) 04/09/22 13:24 Urine Glucose (UA) Neg mg/dL (Negative) 04/09/22 13:24 Urine Ketones 20 mg/dL (Negative) 04/09/22 13:24 Urine Blood Neg (Negative) 04/09/22 13:24 Urine Nitrite Neg (Negative) 04/09/22 13:24 Urine Bilirubin Neg (Negative) 04/09/22 13:24 Urine Urobilinogen 4.0 mg/dL (<2.0) 04/09/22 13:24 Ur Leukocyte Esterase Neg (Negative) 04/09/22 13:24 Urine WBC (Auto) 2.0 /HPF (0.0-6.0) 04/09/22 13:24 Urine RBC (Auto) < 1.0 /HPF (0.0-6.0) 04/09/22 13:24 U Epithel Cells (Auto) < 1.0 /HPF (0-13.0) 04/09/22 13:24 Urine Mucus Few /HPF 04/09/22 13:24 Urine Eosinophils None seen (None Seen) 04/10/22 14:50 Urine Total Volume 750 ml 04/11/22 11:23 Urine Creatinine 160.5 mg/dL (0.1-20.0) H 04/11/22 11:23 Ur Creatinine 24 Hour 1.2 (0.8-2.8) 04/11/22 11:23 Height (in) Not Reportable 04/11/22 11:23 Weight (lb) Not Reportable 04/11/22 11:23 Creatinine Clearance Not Reportable 04/11/22 11:23 Protein/Creatinin Ratio 0.77 04/10/22 14:50 Urine Sodium 17 mmol/L 04/10/22 14:50 Urine Total Protein 172 mg/dL (5-11.8) H 04/10/22 14:50 Random Vancomycin 11.9 ug/mL (0-40.0) 04/11/22 03:58 Urine Opiates Screen Presumptive negative 04/09/22 22:58 Urine Methadone Screen Presumptive negative 04/09/22 22:58 Ur Barbiturates Screen Presumptive negative 04/09/22 22:58 Ur Phencyclidine Scrn Presumptive negative 04/09/22 22:58 Ur Amphetamines Screen Presumptive negative 04/09/22 22:58 U Benzodiazepines Scrn Presumptive negative 04/09/22 22:58 Urine Cocaine Screen Presumptive negative 04/09/22 22:58 U Marijuana (THC) Screen Presumptive negative 04/09/22 22:58 Drugs of Abuse Note Disclamer 04/09/22 22:58 Coronavirus (PCR) Positive (Negative) A 04/09/22 13:02 Influenza A (RT-PCR) Negative (Negative) 04/09/22 14:15 Influenza B (RT-PCR) Negative (Negative) 04/09/22 14:15 Microbiology: Microbiology 04/17/22 18:14 Peripheral/Venous Blood Culture - Preliminary Culture in Progress 04/17/22 18:14 Peripheral/Venous Blood Culture - Preliminary Culture in Progress [place]/IV: Voiding Method Indwelling Catheter Active Medications - Current Medications Current Medications: Generic Name Dose Route Start Last Admin Trade Name Freq PRN Reason Stop Dose Admin Acetaminophen 650 mg 04/09/22 18:11 Acetaminophen 325 Mg Tab PO Q4H PRN Pain MILD(1-3)/Fever >100.5/CARCAMO Dexamethasone 8 mg 04/09/22 19:00 04/17/22 18:25 Dexamethasone 4 Mg/Ml Vial IV 04/18/22 19:01 8 mg Q24H JO ANN Administration Dextrose 0 ml 04/10/22 00:40 Dextrose 50% In Water (25gm) 50 Ml Syringe IV Q30MIN PRN Hypoglycemia Protocol Famotidine 10 mg 04/14/22 10:00 04/18/22 09:57 Famotidine 10 Mg Tab FEEDTUBE Not Given BID [facility] Fentanyl 50 mcg 04/15/22 09:25 Fentanyl 100 Mcg/2 Ml Inj IV Q10MIN PRN ANALGESIA Heparin Sodium (Porcine) 5,000 unit 04/17/22 10:00 04/18/22 09:51 Heparin 5,000 Unit/1 Ml Vial SUB-Q 5,000 unit Q12HR [facility] Administration Fentanyl Citrate 2,000 mcg in 100 mls @ 4.155 mls/hr 04/15/22 10:00 04/18/22 03:15 Fentanyl Drip Premix IV 2 mcg/kg/hr TITR JO ANN 8.31 mls/hr Administration Protocol 1 MCG/KG/HR Cefepime HCl 2 gm in 100 mls @ 200 mls/hr 04/16/22 19:00 04/18/22 06:57 Cefepime/Ns 2 Gm/100 Ml IV 200 mls/hr Q12H [facility] Administration Protocol Insulin Glargine 30 units 04/17/22 22:00 04/17/22 22:06 Insulin Glargine 100 Units/Ml SUB-Q 30 units QHS [facility] Administration Insulin Human Lispro 0 unit 04/18/22 12:00 Insulin Lispro 100 Unit/Ml SUB-Q Q6HR [facility] Protocol Insulin Human Regular 7 units 04/18/22 12:00 Insulin Regular, Human 100 Units/1 Ml SUB-Q 04/19/22 06:01 Q6HR [facility] Ondansetron HCl 4 mg 04/09/22 18:11 Ondansetron 4 Mg/2 Ml Inj IV Q8H PRN Nausea And Vomiting Senna/Docusate Sodium 2 tab 04/15/22 14:00 04/18/22 09:57 Sennosides/Docusate Sodium 8.6/50 Mg Tab FEEDTUBE Not Given BID JO ANN Sodium Chloride 10 ml 04/09/22 22:00 04/18/22 09:51 Sodium Chloride 0.9% 10 Ml Flush Syringe IV 10 ml BID JO ANN Administration Sodium Chloride 10 ml 04/09/22 18:11 Sodium Chloride 0.9% 10 Ml Flush Syringe IV PRN PRN LINE FLUSH Nutrition/Malnutrition Assess - Dietary Evaluation Nutrition/Malnutrition Findings: Nutrition Notes Start: 04/12/22 10:07 Freq: Status: Active Protocol: Document 04/15/22 15:18 RYDER (Rec: 04/15/22 15:23 RYDER [id number]) Nutrition Notes Initial or Follow up Reassessment Current Diagnosis Acute Kidney Injury,Diabetes, Sepsis,Respiratory Failure Other Pertinent Diagnosis AMS, Bilat pneu, COVID-19 (+), Hypotension Current Diet TF - Glucerna 1.2 at 55ml/hr Labs/Tests Na 146 BUN 76 Cr 1.9 BG 214 Pertinent Medications Propofol at 9.972ml/hr ( provides 263 kcal) Height 5 ft 7 in Weight 83.1 kg [place] Body Weight (kg) 61.36 BMI 28.7 Weight change and time frame 98% energy 79% pro Weight Status Overweight Subjective/Other Information Pt remains on vent support; not on pressor support at this time. Renal function being monitored closely. Observed TF infusing at goal rate. Burn Absent Trauma Absent #1 Nutrition Diagnosis Inadequate oral intake As Evidenced by Signs and Symptoms EN support continues Diagnosis Progress(for reassessment Continues documentation) Is patient on ventilator? Yes Is Patient Ambulatory and/or Out of Bed No REE-(Mont[place]-St. Jeor-confined to bed) [phone] Calculation Used for Recommendations [place]-St Jeor Additional Notes Pro needs 1.2-2g/k-166g/ day Fluid needs 1ml/kcal Nutrition Intervention Nutrition Support: Continue Glucerna 1.2 at 55ml/ hr with 100ml water flush q4h. Kcal 1,584 Protein (gm) 79 Carbohydrates (gm) 151 Fat (gm) 79 Fluid (mL) 1,063 Fiber (gm) 21 Goal #1 TF tolerance Goal #2 TF to meet at least 75% energy and pro needs Follow-Up By: 04/22/22 Additional Comments F/U: stable TF, vent status, renal function, propofol <JS HAIDER - Last Filed: 04/18/22 18:06> Assessment and Plan Assessment and plan: I saw and evaluated the patient. I agree with the findings and the plan of care as documented in the Nurse Practitioner's~note, with the following corrections and additions. Hospitalist Physical - Constitutional Vitals: Temp Pulse Resp BP Pulse Ox 98 F 113 H 18 119/68 99 04/18/22 16:00 04/18/22 17:01 04/18/22 17:01 04/18/22 17:01 04/18/22 17:01 HEART Score - HEART Score Troponin: Troponin T < 0.010 ng/mL (0.00-0.029) 04/09/22 12:52 Results - Labs CBC & Chem 7: 04/18/22 05:41 04/18/22 10:35 Labs: Laboratory Last Values WBC 19.6 K/mm3 (4.5-11.0) H 04/18/22 05:41 RBC 3.38 M/mm3 (3.65-5.03) L 04/18/22 05:41 Hgb 9.7 gm/dl (10.1-14.3) L 04/18/22 05:41 Hct 29.5 % (30.3-42.9) L 04/18/22 05:41 MCV 87 fl (79-97) 04/18/22 05:41 MCH 29 pg (28-32) 04/18/22 05:41 MCHC 33 % (30-34) 04/18/22 05:41 RDW 15.9 % (13.2-15.2) H 04/18/22 05:41 Plt Count 142 K/mm3 (140-440) 04/18/22 05:41 Lymph % (Auto) 5.7 % (13.4-35.0) L 04/12/22 00:01 [place] % (Auto) 4.5 % (0.0-7.3) 04/12/22 00:01 Eos % (Auto) 0.0 % (0.0-4.3) 04/12/22 00:01 Baso % (Auto) 0.2 % (0.0-1.8) 04/12/22 00:01 Lymph # (Auto) 0.9 K/mm3 (1.2-5.4) L 04/12/22 00:01 [place] # (Auto) 0.7 K/mm3 (0.0-0.8) 04/12/22 00:01 Eos # (Auto) 0.0 K/mm3 (0.0-0.4) 04/12/22 00:01 Baso # (Auto) 0.0 K/mm3 (0.0-0.1) 04/12/22 00:01 Add Manual Diff Complete 04/10/22 04:24 Total Counted 100 04/10/22 04:24 Seg Neutrophils % 89.6 % (40.0-70.0) H 04/12/22 00:01 Seg Neuts % (Manual) 94.0 % (40.0-70.0) H 04/10/22 04:24 Band Neutrophils % 0 % 04/10/22 04:24 Lymphocytes % (Manual) 3.0 % (13.4-35.0) L 04/10/22 04:24 Reactive Lymphs % (Man) 0 % 04/10/22 04:24 Monocytes % (Manual) 3.0 % (0.0-7.3) 04/10/22 04:24 Eosinophils % (Manual) 0 % (0.0-4.3) 04/10/22 04:24 Basophils % (Manual) 0 % (0.0-1.8) 04/10/22 04:24 Metamyelocytes % 0 % 04/10/22 04:24 Myelocytes % 0 % 04/10/22 04:24 Promyelocytes % 0 % 04/10/22 04:24 Blast Cells % 0 % 04/10/22 04:24 Nucleated RBC % Not Reportable 04/10/22 04:24 Seg Neutrophils # 14.6 K/mm3 (1.8-7.7) H 04/12/22 00:01 Seg Neutrophils # Man 15.4 K/mm3 (1.8-7.7) H 04/10/22 04:24 Band Neutrophils # 0.0 K/mm3 04/10/22 04:24 Lymphocytes # (Manual) 0.5 K/mm3 (1.2-5.4) L 04/10/22 04:24 Abs React Lymphs (Man) 0.0 K/mm3 04/10/22 04:24 Monocytes # (Manual) 0.5 K/mm3 (0.0-0.8) 04/10/22 04:24 Eosinophils # (Manual) 0.0 K/mm3 (0.0-0.4) 04/10/22 04:24 Basophils # (Manual) 0.0 K/mm3 (0.0-0.1) 04/10/22 04:24 Metamyelocytes # 0.0 K/mm3 04/10/22 04:24 Myelocytes # 0.0 K/mm3 04/10/22 04:24 Promyelocytes # 0.0 K/mm3 04/10/22 04:24 Blast Cells # 0.0 K/mm3 04/10/22 04:24 WBC Morphology Not Reportable 04/10/22 04:24 Hypersegmented Neuts Not Reportable 04/10/22 04:24 Hyposegmented Neuts Not Reportable 04/10/22 04:24 Hypogranular Neuts Not Reportable 04/10/22 04:24 Smudge Cells Not Reportable 04/10/22 04:24 Toxic Granulation Not Reportable 04/10/22 04:24 Toxic Vacuolation Not Reportable 04/10/22 04:24 Dohle Bodies Not Reportable 04/10/22 04:24 Pelger-Huet Anomaly Not Reportable 04/10/22 04:24 Aleja Rods Not Reportable 04/10/22 04:24 Platelet Estimate Consistent w auto 04/10/22 04:24 Clumped Platelets Not Reportable 04/10/22 04:24 Plt Clumps, EDTA Not Reportable 04/10/22 04:24 Large Platelets Not Reportable 04/10/22 04:24 Giant Platelets Rare 04/10/22 04:24 Platelet Satelliting Not Reportable 04/10/22 04:24 Plt Morphology Comment Not Reportable 04/10/22 04:24 RBC Morphology Normal 04/10/22 04:24 Dimorphic RBCs Not Reportable 04/10/22 04:24 Polychromasia Not Reportable 04/10/22 04:24 Hypochromasia Not Reportable 04/10/22 04:24 Poikilocytosis Not Reportable 04/10/22 04:24 Anisocytosis Not Reportable 04/10/22 04:24 Microcytosis Not Reportable 04/10/22 04:24 Macrocytosis Not Reportable 04/10/22 04:24 Spherocytes Not Reportable 04/10/22 04:24 Pappenheimer Bodies Not Reportable 04/10/22 04:24 Sickle Cells Not Reportable 04/10/22 04:24 Target Cells Not Reportable 04/10/22 04:24 Tear Drop Cells Not Reportable 04/10/22 04:24 Ovalocytes Not Reportable 04/10/22 04:24 Helmet Cells Not Reportable 04/10/22 04:24 [place] Bodies Not Reportable 04/10/22 04:24 [place] Rings Not Reportable 04/10/22 04:24 [place] Cells Not Reportable 04/10/22 04:24 Bite Cells Not Reportable 04/10/22 04:24 Crenated Cell Not Reportable 04/10/22 04:24 Elliptocytes Not Reportable 04/10/22 04:24 Acanthocytes (Spur) Not Reportable 04/10/22 04:24 Rouleaux Not Reportable 04/10/22 04:24 Hemoglobin C Crystals Not Reportable 04/10/22 04:24 Schistocytes Not Reportable 04/10/22 04:24 Malaria parasites Not Reportable 04/10/22 04:24 Allan Bodies Not Reportable 04/10/22 04:24 Hem Pathologist Commnt No 04/10/22 04:24 PT 14.5 Sec. (12.2-14.9) 04/09/22 12:52 INR 1.02 (0.87-1.13) 04/09/22 12:52 D-Dimer 3804.33 ng/mlDDU (0-234) H 04/17/22 05:12 ABG pH 7.318 pH Units (7.350-7.450) L 04/16/22 02:35 ABG pCO2 55.4 mm Hg 04/16/22 02:35 ABG pO2 71.1 mm Hg (80.0-90.0) L 04/16/22 02:35 ABG HCO3 27.7 mmol/L (20.0-26.0) H 04/16/22 02:35 ABG O2 Saturation 94.8 % (95.0-99.0) L 04/16/22 02:35 ABG O2 Content 13.6 (0.0-44) 04/16/22 02:35 ABG Base Excess 0.9 mmol/L (-2.0-3.0) 04/16/22 02:35 ABG Hemoglobin 10.3 gm/dl (12.0-16.0) L 04/16/22 02:35 ABG Carboxyhemoglobin 1.5 % (0.0-5.0) 04/16/22 02:35 ABG Methemoglobin 0.5 % (0.0-1.5) 04/16/22 02:35 VBG pH 7.303 (7.320-7.420) L 04/09/22 12:52 Oxyhemoglobin 92.9 % (95.0-99.0) L 04/16/22 02:35 FiO2 55 % 04/16/22 02:35 Sodium 156 mmol/L (137-145) H 04/18/22 10:35 Potassium 4.8 mmol/L (3.6-5.0) 04/18/22 10:35 Chloride 118.2 mmol/L (98-107) H 04/18/22 10:35 Carbon Dioxide 32 mmol/L (22-30) H 04/18/22 10:35 Anion Gap 11 mmol/L 04/18/22 10:35 BUN 66 mg/dL (7-17) H 04/18/22 10:35 Creatinine 1.3 mg/dL (0.6-1.2) H 04/18/22 10:35 Estimated GFR 48 ml/min 04/18/22 10:35 BUN/Creatinine Ratio 51 % 04/18/22 10:35 Glucose 179 mg/dL (65-100) H 04/18/22 10:35 POC Glucose 161 mg/dL (70-105) H 04/18/22 11:57 Lactic Acid 2.10 mmol/L (0.7-2.0) H* 04/15/22 12:00 Calcium 8.3 mg/dL (8.4-10.2) L 04/18/22 10:35 Phosphorus 3.60 mg/dL (2.5-4.5) 04/14/22 07:28 Magnesium 2.90 mg/dL (1.7-2.3) H 04/14/22 07:28 Ferritin 570.8 ng/mL (10.0-200.0) H 04/18/22 05:41 Total Bilirubin 0.70 mg/dL (0.1-1.2) 04/18/22 10:35 Direct Bilirubin 0.5 mg/dL (0-0.2) H 04/16/22 04:00 Indirect Bilirubin 0.4 mg/dL 04/16/22 04:00 AST 91 units/L (5-40) H 04/18/22 10:35 ALT 234 units/L (7-56) H 04/18/22 10:35 Alkaline Phosphatase 106 units/L (35-129) 04/18/22 10:35 Ammonia 20.0 umol/L (25-60) L 04/09/22 12:52 Lactate Dehydrogenase 1473 units/L (91-180) H 04/18/22 05:41 Troponin T < 0.010 ng/mL (0.00-0.029) 04/09/22 12:52 C-Reactive Protein 0.80 mg/dL (0.00-1.30) 04/18/22 05:41 NT-Pro-B Natriuret Pep 101.1 pg/mL (0-900) 04/09/22 13:45 Total Protein 5.3 g/dL (6.3-8.2) L 04/18/22 10:35 Albumin 3.4 g/dL (3.9-5) L 04/18/22 10:35 Albumin/Globulin Ratio 1.8 % 04/18/22 10:35 Procalcitonin 3.13 ng/mL (<0.15) 04/10/22 11:47 TSH 1.560 mlU/mL (0.270-4.200) 04/09/22 12:52 Free T4 1.33 ng/dL (0.76-1.46) 04/09/22 12:52 Urine Color Yellow (Yellow) 04/09/22 13:24 Urine Turbidity Clear (Clear) 04/09/22 13:24 Urine pH 5.0 (5.0-7.0) 04/09/22 13:24 Ur Specific Romeo 1.011 (1.003-1.030) 04/09/22 13:24 Urine Protein 30 mg/dl mg/dL (Negative) 04/09/22 13:24 Urine Glucose (UA) Neg mg/dL (Negative) 04/09/22 13:24 Urine Ketones 20 mg/dL (Negative) 04/09/22 13:24 Urine Blood Neg (Negative) 04/09/22 13:24 Urine Nitrite Neg (Negative) 04/09/22 13:24 Urine Bilirubin Neg (Negative) 04/09/22 13:24 Urine Urobilinogen 4.0 mg/dL (<2.0) 04/09/22 13:24 Ur Leukocyte Esterase Neg (Negative) 04/09/22 13:24 Urine WBC (Auto) 2.0 /HPF (0.0-6.0) 04/09/22 13:24 Urine RBC (Auto) < 1.0 /HPF (0.0-6.0) 04/09/22 13:24 U Epithel Cells (Auto) < 1.0 /HPF (0-13.0) 04/09/22 13:24 Urine Mucus Few /HPF 04/09/22 13:24 Urine Eosinophils None seen (None Seen) 04/10/22 14:50 Urine Total Volume 750 ml 04/11/22 11:23 Urine Creatinine 160.5 mg/dL (0.1-20.0) H 04/11/22 11:23 Ur Creatinine 24 Hour 1.2 (0.8-2.8) 04/11/22 11:23 Height (in) Not Reportable 04/11/22 11:23 Weight (lb) Not Reportable 04/11/22 11:23 Creatinine Clearance Not Reportable 04/11/22 11:23 Protein/Creatinin Ratio 0.77 04/10/22 14:50 Urine Sodium 17 mmol/L 04/10/22 14:50 Urine Total Protein 172 mg/dL (5-11.8) H 04/10/22 14:50 Random Vancomycin 11.9 ug/mL (0-40.0) 04/11/22 03:58 Urine Opiates Screen Presumptive negative 04/09/22 22:58 Urine Methadone Screen Presumptive negative 04/09/22 22:58 Ur Barbiturates Screen Presumptive negative 04/09/22 22:58 Ur Phencyclidine Scrn Presumptive negative 04/09/22 22:58 Ur Amphetamines Screen Presumptive negative 04/09/22 22:58 U Benzodiazepines Scrn Presumptive negative 04/09/22 22:58 Urine Cocaine Screen Presumptive negative 04/09/22 22:58 U Marijuana (THC) Screen Presumptive negative 04/09/22 22:58 Drugs of Abuse Note Disclamer 04/09/22 22:58 Coronavirus (PCR) Positive (Negative) A 04/09/22 13:02 Influenza A (RT-PCR) Negative (Negative) 04/09/22 14:15 Influenza B (RT-PCR) Negative (Negative) 04/09/22 14:15 Microbiology: Microbiology 04/17/22 18:14 Peripheral/Venous Blood Culture - Preliminary Culture in Progress 04/17/22 18:14 Peripheral/Venous Blood Culture - Preliminary Culture in Progress Cortez/IV: Voiding Method Indwelling Catheter Active Medications - Current Medications Current Medications: Generic Name Dose Route Start Last Admin Trade Name Freq PRN Reason Stop Dose Admin Acetaminophen 650 mg 04/09/22 18:11 Acetaminophen 325 Mg Tab PO Q4H PRN Pain MILD(1-3)/Fever >100.5/CARCAMO Dexamethasone 8 mg 04/09/22 19:00 04/17/22 18:25 Dexamethasone 4 Mg/Ml Vial IV 04/18/22 19:01 8 mg Q24H JO ANN Administration Dextrose 0 ml 04/10/22 00:40 Dextrose 50% In Water (25gm) 50 Ml Syringe IV Q30MIN PRN Hypoglycemia Protocol Famotidine 10 mg 04/14/22 10:00 04/18/22 09:57 Famotidine 10 Mg Tab FEEDTUBE Not Given BID JO ANN Fentanyl 50 mcg 04/15/22 09:25 Fentanyl 100 Mcg/2 Ml Inj IV Q10MIN PRN ANALGESIA Heparin Sodium (Porcine) 5,000 unit 04/17/22 10:00 04/18/22 09:51 Heparin 5,000 Unit/1 Ml Vial SUB-Q 5,000 unit Q12HR JO ANN Administration Fentanyl Citrate 2,000 mcg in 100 mls @ 4.155 mls/hr 04/15/22 10:00 04/18/22 14:15 Fentanyl Drip Premix IV 2 mcg/kg/hr TITR JO ANN 8.31 mls/hr Administration Protocol 1 MCG/KG/HR Cefepime HCl 2 gm in 100 mls @ 200 mls/hr 04/16/22 19:00 04/18/22 06:57 Cefepime/Ns 2 Gm/100 Ml IV 200 mls/hr Q12H JO ANN Administration Protocol Sodium Chloride 1,000 mls @ 75 mls/hr 04/18/22 13:00 Nacl 0.45% 1000 Ml IV DIRECT JO ANN Insulin Glargine 30 units 04/17/22 22:00 04/17/22 22:06 Insulin Glargine 100 Units/Ml SUB-Q 30 units QHS JO ANN Administration Insulin Human Lispro 0 unit 04/18/22 12:00 04/18/22 12:05 Insulin Lispro 100 Unit/Ml SUB-Q 3 unit Q6HR JO NAN Administration Protocol Insulin Human Regular 7 units 04/18/22 12:00 04/18/22 12:05 Insulin Regular, Human 100 Units/1 Ml SUB-Q 04/19/22 06:01 7 units Q6HR JO ANN Administration Ondansetron HCl 4 mg 04/09/22 18:11 Ondansetron 4 Mg/2 Ml Inj IV Q8H PRN Nausea And Vomiting Senna/Docusate Sodium 2 tab 04/15/22 14:00 04/18/22 09:57 Sennosides/Docusate Sodium 8.6/50 Mg Tab FEEDTUBE Not Given BID JO ANN Sodium Chloride 10 ml 04/09/22 22:00 04/18/22 09:51 Sodium Chloride 0.9% 10 Ml Flush Syringe IV 10 ml BID JO ANN Administration Sodium Chloride 10 ml 04/09/22 18:11 Sodium Chloride 0.9% 10 Ml Flush Syringe IV PRN PRN LINE FLUSH Nutrition/Malnutrition Assess - Dietary Evaluation Nutrition/Malnutrition Findings: Nutrition Notes Start: 04/12/22 10:07 Freq: Status: Active Protocol: Document 04/15/22 15:18 [facility] (Rec: 04/15/22 15:23 [facility] [id number]) Nutrition Notes Initial or Follow up Reassessment Current Diagnosis Acute Kidney Injury,Diabetes, Sepsis,Respiratory Failure Other Pertinent Diagnosis AMS, Bilat pneu, COVID-19 (+), Hypotension Current Diet TF - Glucerna 1.2 at 55ml/hr Labs/Tests Na 146 BUN 76 Cr 1.9 BG 214 Pertinent Medications Propofol at 9.972ml/hr ( provides 263 kcal) Height 5 ft 7 in Weight 83.1 kg [place] Body Weight (kg) 61.36 BMI 28.7 Weight change and time frame 98% energy 79% pro Weight Status Overweight Subjective/Other Information Pt remains on vent support; not on pressor support at this time. Renal function being monitored closely. Observed TF infusing at goal rate. Burn Absent Trauma Absent #1 Nutrition Diagnosis Inadequate oral intake As Evidenced by Signs and Symptoms EN support continues Diagnosis Progress(for reassessment Continues documentation) Is patient on ventilator? Yes Is Patient Ambulatory and/or Out of Bed No REE-([facility]-confined to bed) 2078.83 Calculation Used for Recommendations [facility] Additional Notes Pro needs 1.2-2g/k-166g/ day Fluid needs 1ml/kcal Nutrition Intervention Nutrition Support: Continue Glucerna 1.2 at 55ml/ hr with 100ml water flush q4h. Kcal 1,584 Protein (gm) 79 Carbohydrates (gm) 151 Fat (gm) 79 Fluid (mL) 1,063 Fiber (gm) 21 Goal #1 TF tolerance Goal #2 TF to meet at least 75% energy and pro needs Follow-Up By: 04/22/22 Additional Comments F/U: stable TF, vent status, renal function, propofol
[2022-04-18] MEDS ORDERED: SODIUM CHLORIDE 0.45% 1000 ML 1,000 ML IV SCH (13:00)
--- NOTE | 2022-04-18 13:28 | Ultrasound Report ---
ULTRASOUND ABDOMEN, COMPLETE INDICATION / CLINICAL INFORMATION: Elevated LFTs. COMPARISON: None available. FINDINGS: PANCREAS: Not well seen due to overlying bowel gas. ABDOMINAL AORTA: The proximal mid abdominal aorta appear normal. The distal is obscured by bowel gas. IVC: No significant abnormality. LIVER: The liver is enlarged measuring 18.4 cm and is diffusely echogenic. GALLBLADDER: There are small stones/sludge in the gallbladder neck but no wall thickening or perichol ecystic fluid. BILE DUCTS: No significant abnormality. Common bile duct measures 5 mm. KIDNEYS: Right: No significant abnormality. Left: No significant abnormality. SPLEEN: No significant abnormality. FREE FLUID: None. ADDITIONAL FINDINGS: None. IMPRESSION: 1. Hepatomegaly and hepatic steatosis. 2. Cholelithiasis without sonographic evidence of acute cholecystitis. Signer Name: Shahram Chisholm MD Signed: 04/18/2022 1:24 PM Workstation Name: [id number]
--- NOTE | 2022-04-18 14:22 | Progress Note ---
Assessment and Plan Cultures: SARS CoV2 PCR: Positive Influenza PCR: Negative 04/09/2022 blood culture: no growth. 04/09/2022 resp culture: Usual respiratory catherine A/P: 77-year-old female with diabetes, history of ovarian cancer believed to be in remission was admitted with altered mental status: #Septic shock, probably secondary to severe COVID-19. ABG showed severe acidosis. UA without pyuria. Chest x-ray showed bilateral airspace opacities. Off pressors now. #Bilateral pneumonia: Secondary to COVID-19. Unvaccinated. Actemra administered 04/10/2022. CRP 11.3, procalcitonin 3.3, ferritin 1218, LDH 482. #Acute hypoxic respiratory failure: Requiring mechanical ventilation. #ASHLEY: Renally adjust antibiotics. #Transaminitis #Acute encephalopathy: Neurology following. Recs: -IV/PO Dexamethasone x 10 days -Due to renal failure, not a candidate for Remdesivir -S/p Actemra 04/10/2022 -prophylactic anticoagulation based on d-dimer per hospital protocol -Afebrile, white count remains elevated. Continue cefepime -Check new blood and respiratory cultures -trend ferritin, d-dimer, CRP every 2-3 days -Guarded prognosis Laura Sahu MD [facility] O: [phone] F: [phone] Subjective Date of service: 04/18/22 Principal diagnosis: encephalopathy Interval history: Afebrile, white count remains elevated at 19.6, slightly improved. Cultures remain negative. Objective - Exam Narrative Exam: Physical Exam: Constitutional: sedated, intubated, on the vent Head, Ears, Nose: Normocephalic, atraumatic. External ears, nose normal Eyes: Conjunctivae/corneas clear. No icterus. No ptosis. Neck: intubated Oral: intubated Cardiovascular: S1, S2 + Respiratory: AE fair bilaterally and equal GI: Soft, bowel sounds + Musculoskeletal: No pedal edema, no cyanosis. Skin: No rash or abscess Hem/Lymphatic: No palpable cervical or supraclavicular nodes. Psych: no agitation Neurological: sedated, intubated, on the vent, exam limited - Constitutional Vitals: Vital Signs Temp Pulse Resp BP Pulse Ox 97.9 F 114 H 18 140/63 99 04/18/22 08:00 04/18/22 12:00 04/18/22 11:01 04/18/22 12:00 04/18/22 12:00 Temperature -Last 24 Hours Temperature 97.9 F Temperature 98 F Temperature 97.9 F Temperature 98.8 F Temperature 99.6 F - Labs CBC & Chem 7: 04/18/22 05:41 04/18/22 10:35 Labs: Abnormal lab results 04/17/22 04/17/22 04/18/22 Range/Units 17:27 20:04 01:55 WBC (4.5-11.0) K/mm3 RBC (3.65-5.03) M/mm3 Hgb (10.1-14.3) gm/dl Hct (30.3-42.9) % RDW (13.2-15.2) % Sodium (137-145) mmol/L Chloride (98-107) mmol/L Carbon Dioxide (22-30) mmol/L BUN (7-17) mg/dL Creatinine (0.6-1.2) mg/dL Glucose (65-100) mg/dL POC Glucose 308 H 301 H 301 H (70-105) mg/dL Calcium (8.4-10.2) mg/dL Ferritin (10.0-200.0) ng/mL AST (5-40) units/L ALT (7-56) units/L Lactate Dehydrogenase (91-180) units/L Total Protein (6.3-8.2) g/dL Albumin (3.9-5) g/dL 04/18/22 04/18/22 04/18/22 Range/Units 05:41 05:41 05:41 WBC 19.6 H (4.5-11.0) K/mm3 RBC 3.38 L (3.65-5.03) M/mm3 Hgb 9.7 L (10.1-14.3) gm/dl Hct 29.5 L (30.3-42.9) % RDW 15.9 H (13.2-15.2) % Sodium 156 H (137-145) mmol/L Chloride 117.8 H (98-107) mmol/L Carbon Dioxide (22-30) mmol/L BUN 69 H (7-17) mg/dL Creatinine 1.3 H (0.6-1.2) mg/dL Glucose 231 H (65-100) mg/dL POC Glucose (70-105) mg/dL Calcium 8.3 L (8.4-10.2) mg/dL Ferritin 570.8 H (10.0-200.0) ng/mL AST (5-40) units/L ALT (7-56) units/L Lactate Dehydrogenase 1473 H (91-180) units/L Total Protein (6.3-8.2) g/dL Albumin (3.9-5) g/dL 04/18/22 04/18/22 Range/Units 06:09 10:35 WBC (4.5-11.0) K/mm3 RBC (3.65-5.03) M/mm3 Hgb (10.1-14.3) gm/dl Hct (30.3-42.9) % RDW (13.2-15.2) % Sodium 156 H (137-145) mmol/L Chloride 118.2 H (98-107) mmol/L Carbon Dioxide 32 H (22-30) mmol/L BUN 66 H (7-17) mg/dL Creatinine 1.3 H (0.6-1.2) mg/dL Glucose 179 H (65-100) mg/dL POC Glucose 210 H (70-105) mg/dL Calcium 8.3 L (8.4-10.2) mg/dL Ferritin (10.0-200.0) ng/mL AST 91 H (5-40) units/L ALT 234 H (7-56) units/L Lactate Dehydrogenase (91-180) units/L Total Protein 5.3 L (6.3-8.2) g/dL Albumin 3.4 L (3.9-5) g/dL
--- NOTE | 2022-04-18 14:58 | Cat Scan Report ---
CT abdomen pelvis con INDICATION / CLINICAL INFORMATION: hx of ovarian ca. TECHNIQUE: Axial CT imaging of abdomen and pelvis was obtained without contrast. Coronal and sagittal reformatte d imaging obtained and reviewed. All CT scans at this location are performed using CT dose reduction for ALARA by means of automated exposure control. COMPARISON: Prior CT abdomen/pelvis 08/03/2020, abdominal ultrasound performed earlier today. FINDINGS: CT abdomen without contrast demonstrates no visible abnormality related to the liver, spleen, pancrea s, kidneys, or adrenal glands. Gallbladder contains high density material which was shown to represen t a combination of gallstones and gallbladder sludge on earlier abdominal ultrasound. The tip of a nasogastric tube is within the proximal duodenum. You may wish to pull back 3 or [address] amount of free fluid is seen throughout the upper abdomen. CT pelvis without contrast demonstrates a Cortez catheter within the urinary bladder. Air is present w ithin the urinary bladder presumably from catheterization. Small amount of scattered free fluid is se en throughout the pelvis. GI tract is within normal limits. Uterus and appendix are surgically absen t. Mild to moderate anasarca is visualized throughout the soft tissues of the abdomen and pelvis. Visualized lung bases demonstrate small bilateral pleural effusions with significant bilateral lower lobe consolidation. No acute osseous abnormality noted. IMPRESSION: 1. Changes suggestive of volume overload with diffuse anasarca and small amount of ascites scattered throughout the abdomen and pelvis. 2. Otherwise no acute finding within the abdomen or pelvis. 3. Cholelithiasis/gallbladder sludge, as noted on earlier abdominal ultrasound. 4. Prominent bibasilar pleural-parenchymal disease. Whether the bibasilar consolidation is secondary to atelectasis or pneumonia is unclear. Signer Name: Altagracia Duran MD Signed: 04/18/2022 2:54 PM Workstation Name: [id number]
[2022-04-19] MEDS: CEFEPIME/NS 2 GM/100 ML 2 GM/100 ML BAG IV SCH ×3 (00:18→21:38)
[2022-04-19] MEDS: INSULIN GLARGINE 100 UNITS/ML SUB-Q SCH (00:26)
[2022-04-19] MEDS: INSULIN LISPRO 100 UNIT/ML SUB-Q SCH ×4 (01:15→18:27)
[2022-04-19] MEDS: dexAMETHasone 4 MG/ML VIAL IV SCH (01:19)
[2022-04-19] MEDS: fentaNYL DRIP Premix 2,000 MCG/100 ML BAG IV SCH ×3 (03:32→22:07)
[2022-04-19] MEDS: FREE WATER PO SCH ×5 (03:33→18:27)
[2022-04-19 04:57] LABS: Hematocrit 34.9 % (30.3-42.9); Mean Corpuscular HGB Conc 32 % (30-34); Mean Corpuscular Volume 90 fl (79-97); Platelet Count 152 K/mm3 (140-440); Red Blood Count 3.88 M/mm3 (3.65-5.03); Red Cell Distribution Width 15.7 % (13.2-15.2)
[2022-04-19 05:16] LABS: Albumin 3.5 g/dL (3.9-5); Calcium 8.9 mg/dL (8.4-10.2)
[2022-04-19] MEDS: INSULIN REGULAR, HUMAN 100 UNITS/1 ML SUB-Q SCH (06:32)
--- NOTE | 2022-04-19 09:45 | Progress Note ---
Assessment and Plan 77 y/o female with multisystem organ failure, COVID positive 04/19/22: Down to 6 of PEEP and 40%. Not breathing over the vent. Will get ABG tomorrow. Na continues to increase. Sending serum and urine osms. Follow up any new renal recs for today. Plan for trach and peg later this afternoon. Prognosis remains guarded to poor. 04/18/22: Peep and FiO2 weaned this am. No blood gas this am but sat is 100. Will order ABG for tomorrow morning. Will order repeat CMP and ask that phlebotomy do a fresh stick on patient and not draw from picc line. Once trached and pegged will work on placement. Reviewed meds but none that would cause persistent to worsening hypernatremia. Guarded to poor prognosis. 04/17/22: Continue PEEP at 10. Down to 45%. Do not see a blood gas from this morning. Neurology saw this am. MRI negative. Family meeting today at 1330. Guarded to poor prognosis. 04/16/22: Continue PEEP at 10 until FiO2 is at 40-45% and sats >92%. Then can start to wean. Just on Fent now, continue bowel regimen. Tolerating tube feeds. Discussed with [employer] on rounds, neurology was seeing but no further notes, no objection to consulting neuro who is here this week, whoever that is. Patient may need MRI as she has had two negative head CT's and still no real explanation for acute change in mental state. Plan to meet/talk with son tomorrow about next steps and goals of care. Prognosis remains guarded to now poor given no improvement in mental state. 04/15/22: Hold on any further fluids or lasix. If hypotensive, will add pressors. Continue PEEP at 10. Same acceptable parameters as below for sats and PaO2 as pH. Continue pain control and sedation. Added bowel regimen. Prognosis is still guarded to poor. 04/14/22: Hold on any further lasix. Please do not give any fluids, will see if she re equilbrates on her own. Increase PEEP to 8. Will get head CT today. Patient is now in full blown ARDS from COVID. Increased PEEP to 8 and dropped TV to 400. pH of >7.15 and PaO2 >55 are acceptable. Repeat gas at 1600 today. 04/13/22: Renal function continues to improve and urine output improving as wel l. Given CXR findings will give lasix 40mg IV x1 today. Repeat CXR tomorrow. Off insulin drip and tolerating feeds. Hold on CT head today but if no improvement or worsening clinical state tomorrow, will repeat. Spoke with family on phone yesterday. Guarded prognosis. 04/12/22: Improved mental state. Feed patient today and stop IVF's and attempt to get off of insulin drip. Dropped Peep to 6. Wean FiO2 for sats >88%. PaO2 of 55 and greater are acceptable. Normal EF on echo. EEG showed diffuse slowing but mental state has improved. Will up date family. 04/11/22: Continue supportive measures. Getting EEG right now. Continue to wean Pressors for MAPs >65. if able to get to just one pressor, will place NG vs OG and attempt trickle feeds. Follow up echo. Down to 45%, good PaO2. Continue to wean, however mental state would preclude extubation at this time. Await renal eval but would like to stop bicarb now that acidosis is better, however needs free water but this could be given do OG/NG if end up placing, otherwise would just do D5W. If able to place tube and feed, then can attempt to get off insulin drip. Plan to update family after echo and EEG read. 1. Neuro-concern for seizures. EEG pending. Hold on long acting anti-epileptic therapy. Neurology consulted and has seen. patient is not on any continuous sedation at present 2. CV-Cardiovascular collapse on pressors (3). Could benefit from echo. Attempt volume resuscitation but no improvement. Continue pressors and wean as tolerated for MAPs >65 3. Pulm-intubated, not on sedation. COVID positive but oxygenation is stable. Per documentation, mainly intubated for airway protection given altered level of mental status. Not a candidate for Remdesivir and may not be a candidate for actemra. Continue steroids and low Tidal volume strategy for lung protection with permissive hypercapnea and lower PaO2 (55-60) if needed. 4. Renal- worsening renal function and decrease in urine output. Renal following. May need HD but would likely not tolerate and CRRT or CVVH is not available here. Worsening lactic acidosis as well. 5. GI-hold on feeds given pressor requirement, prophylactic therapy 6. Endo-continue insulin drip for now Overall prognosis is guarded to poor. Will discuss with immediate family today. CCT 31 minutes Subjective Date of service: 04/19/22 Principal diagnosis: encephalopathy Interval history: No acute events. Mental state is unchanged. Na continues to rise. Renal following. Finished Steroids on yesterday. Objective Vital Signs - 12hr 04/18/22 04/18/22 04/18/22 22:00 23:01 23:05 Temperature Pulse Rate 122 H 123 H 123 H Pulse Rate [ From Monitor] Respiratory 19 19 19 Rate Blood Pressure 141/67 145/69 145/69 O2 Sat by Pulse 98 98 98 Oximetry 04/19/22 04/19/22 04/19/22 00:00 00:01 00:02 Temperature 98.9 F Pulse Rate 127 H 126 H Pulse Rate [ 123 H From Monitor] Respiratory 18 20 Rate Blood Pressure 139/71 139/71 O2 Sat by Pulse 97 96 96 Oximetry 04/19/22 04/19/22 04/19/22 01:01 02:01 03:01 Temperature Pulse Rate 125 H 124 H 124 H Pulse Rate [ From Monitor] Respiratory 21 23 22 Rate Blood Pressure 115/76 131/71 141/72 O2 Sat by Pulse 96 97 97 Oximetry 04/19/22 04/19/22 04/19/22 03:57 04:00 04:01 Temperature 99.9 F H Pulse Rate 125 H 127 H Pulse Rate [ 123 H From Monitor] Respiratory 18 24 Rate Blood Pressure 143/77 143/77 O2 Sat by Pulse 95 97 96 Oximetry 04/19/22 04/19/22 04/19/22 05:01 06:01 07:01 Temperature Pulse Rate 128 H 127 H 126 H Pulse Rate [ From Monitor] Respiratory 23 25 H 21 Rate Blood Pressure 136/76 153/78 138/81 O2 Sat by Pulse 96 95 96 Oximetry 04/19/22 09:00 Temperature Pulse Rate 126 H Pulse Rate [ From Monitor] Respiratory Rate Blood Pressure 161/78 O2 Sat by Pulse 97 Oximetry Gastrointestinal: normoactive bowel sounds Integumentary: normal CBC and BMP: 04/19/22 04:00 04/19/22 04:00 ABG, PT/INR, D-dimer: ABG ABG pH 7.318 pH Units (7.350-7.450) L 04/16/22 02:35 ABG pCO2 55.4 mm Hg 04/16/22 02:35 ABG pO2 71.1 mm Hg (80.0-90.0) L 04/16/22 02:35 ABG O2 Saturation 94.8 % (95.0-99.0) L 04/16/22 02:35 PT/INR, D-dimer PT 14.5 Sec. (12.2-14.9) 04/09/22 12:52 INR 1.02 (0.87-1.13) 04/09/22 12:52 D-Dimer 3804.33 ng/mlDDU (0-234) H 04/17/22 05:12 Abnormal lab findings: Abnormal Labs 04/09/22 04/09/22 04/09/22 11:59 12:52 12:52 WBC RBC Hgb Hct RDW 15.3 H Lymph % (Auto) 8.4 L Lymph # (Auto) 0.7 L Seg Neutrophils % 84.6 H Seg Neuts % (Manual) Lymphocytes % (Manual) Seg Neutrophils # Seg Neutrophils # Man Lymphocytes # (Manual) D-Dimer ABG pH ABG pO2 ABG HCO3 ABG O2 Saturation ABG Base Excess ABG Hemoglobin VBG pH Oxyhemoglobin Sodium Potassium Chloride 112.7 H Carbon Dioxide 18 L BUN Creatinine 2.0 H Glucose 204 H POC Glucose 203 H Lactic Acid Calcium Phosphorus Magnesium Ferritin Total Bilirubin 1.30 H Direct Bilirubin AST 47 H ALT Ammonia Lactate Dehydrogenase C-Reactive Protein Total Protein Albumin Urine Creatinine Urine Total Protein Coronavirus (PCR) 04/09/22 04/09/22 04/09/22 12:52 12:52 13:02 WBC RBC Hgb Hct RDW Lymph % (Auto) Lymph # (Auto) Seg Neutrophils % Seg Neuts % (Manual) Lymphocytes % (Manual) Seg Neutrophils # Seg Neutrophils # Man Lymphocytes # (Manual) D-Dimer ABG pH ABG pO2 ABG HCO3 ABG O2 Saturation ABG Base Excess ABG Hemoglobin VBG pH 7.303 L Oxyhemoglobin Sodium Potassium Chloride Carbon Dioxide BUN Creatinine Glucose POC Glucose Lactic Acid Calcium Phosphorus Magnesium Ferritin Total Bilirubin Direct Bilirubin AST ALT Ammonia 20.0 L Lactate Dehydrogenase C-Reactive Protein Total Protein Albumin Urine Creatinine Urine Total Protein Coronavirus (PCR) Positive A 04/09/22 04/09/22 04/09/22 15:49 22:15 22:58 WBC RBC Hgb Hct RDW Lymph % (Auto) Lymph # (Auto) Seg Neutrophils % Seg Neuts % (Manual) Lymphocytes % (Manual) Seg Neutrophils # Seg Neutrophils # Man Lymphocytes # (Manual) D-Dimer ABG pH 7.097 L* ABG pO2 188.8 H ABG HCO3 7.4 L ABG O2 Saturation 99.1 H ABG Base Excess -20.7 L ABG Hemoglobin VBG pH Oxyhemoglobin Sodium Potassium Chloride 108.8 H Carbon Dioxide 10 L D BUN 20 H Creatinine 2.6 H Glucose 465 H POC Glucose Lactic Acid 2.70 H* Calcium 7.4 L Phosphorus Magnesium Ferritin Total Bilirubin Direct Bilirubin AST ALT Ammonia Lactate Dehydrogenase C-Reactive Protein Total Protein Albumin Urine Creatinine Urine Total Protein Coronavirus (PCR) 04/09/22 04/09/22 04/10/22 23:19 Unknown 00:03 WBC RBC Hgb Hct RDW Lymph % (Auto) Lymph # (Auto) Seg Neutrophils % Seg Neuts % (Manual) Lymphocytes % (Manual) Seg Neutrophils # Seg Neutrophils # Man Lymphocytes # (Manual) D-Dimer ABG pH ABG pO2 ABG HCO3 ABG O2 Saturation ABG Base Excess ABG Hemoglobin VBG pH Oxyhemoglobin Sodium Potassium Chloride Carbon Dioxide BUN Creatinine Glucose POC Glucose 356 H Lactic Acid 7.50 H* 6.10 H* Calcium Phosphorus Magnesium Ferritin Total Bilirubin Direct Bilirubin AST ALT Ammonia Lactate Dehydrogenase C-Reactive Protein Total Protein Albumin Urine Creatinine Urine Total Protein Coronavirus (PCR) 04/10/22 04/10/22 04/10/22 02:16 03:03 04:00 WBC RBC Hgb Hct RDW Lymph % (Auto) Lymph # (Auto) Seg Neutrophils % Seg Neuts % (Manual) Lymphocytes % (Manual) Seg Neutrophils # Seg Neutrophils # Man Lymphocytes # (Manual) D-Dimer ABG pH ABG pO2 ABG HCO3 ABG O2 Saturation ABG Base Excess ABG Hemoglobin VBG pH Oxyhemoglobin Sodium Potassium Chloride Carbon Dioxide BUN Creatinine Glucose POC Glucose 317 H 325 H 308 H Lactic Acid Calcium Phosphorus Magnesium Ferritin Total Bilirubin Direct Bilirubin AST ALT Ammonia Lactate Dehydrogenase C-Reactive Protein Total Protein Albumin Urine Creatinine Urine Total Protein Coronavirus (PCR) 04/10/22 04/10/22 04/10/22 04:24 04:24 04:24 WBC 16.4 H RBC Hgb Hct RDW 16.2 H Lymph % (Auto) Lymph # (Auto) Seg Neutrophils % Seg Neuts % (Manual) 94.0 H Lymphocytes % (Manual) 3.0 L Seg Neutrophils # Seg Neutrophils # Man 15.4 H Lymphocytes # (Manual) 0.5 L D-Dimer ABG pH ABG pO2 ABG HCO3 ABG O2 Saturation ABG Base Excess ABG Hemoglobin VBG pH Oxyhemoglobin Sodium Potassium 2.9 L* D Chloride 116.1 H Carbon Dioxide 11 L BUN 19 H Creatinine 2.5 H Glucose 376 H POC Glucose Lactic Acid Calcium 6.5 L Phosphorus 1.40 L Magnesium 1.60 L Ferritin Total Bilirubin Direct Bilirubin AST 107 H ALT 64 H Ammonia Lactate Dehydrogenase C-Reactive Protein Total Protein 5.5 L Albumin 2.8 L Urine Creatinine Urine Total Protein Coronavirus (PCR) 04/10/22 04/10/22 04/10/22 04:25 05:17 06:00 WBC RBC Hgb Hct RDW Lymph % (Auto) Lymph # (Auto) Seg Neutrophils % Seg Neuts % (Manual) Lymphocytes % (Manual) Seg Neutrophils # Seg Neutrophils # Man Lymphocytes # (Manual) D-Dimer ABG pH 7.095 L* ABG pO2 112.3 H ABG HCO3 8.7 L ABG O2 Saturation ABG Base Excess -19.7 L ABG Hemoglobin VBG pH Oxyhemoglobin Sodium Potassium Chloride Carbon Dioxide BUN Creatinine Glucose POC Glucose 343 H 278 H Lactic Acid Calcium Phosphorus Magnesium Ferritin Total Bilirubin Direct Bilirubin AST ALT Ammonia Lactate Dehydrogenase C-Reactive Protein Total Protein Albumin Urine Creatinine Urine Total Protein Coronavirus (PCR) 04/10/22 04/10/22 04/10/22 06:53 07:54 08:58 WBC RBC Hgb Hct RDW Lymph % (Auto) Lymph # (Auto) Seg Neutrophils % Seg Neuts % (Manual) Lymphocytes % (Manual) Seg Neutrophils # Seg Neutrophils # Man Lymphocytes # (Manual) D-Dimer ABG pH ABG pO2 ABG HCO3 ABG O2 Saturation ABG Base Excess ABG Hemoglobin VBG pH Oxyhemoglobin Sodium Potassium Chloride Carbon Dioxide BUN Creatinine Glucose POC Glucose 262 H 245 H 215 H Lactic Acid Calcium Phosphorus Magnesium Ferritin Total Bilirubin Direct Bilirubin AST ALT Ammonia Lactate Dehydrogenase C-Reactive Protein Total Protein Albumin Urine Creatinine Urine Total Protein Coronavirus (PCR) 04/10/22 04/10/22 04/10/22 10:12 10:51 11:47 WBC RBC Hgb Hct RDW Lymph % (Auto) Lymph # (Auto) Seg Neutrophils % Seg Neuts % (Manual) Lymphocytes % (Manual) Seg Neutrophils # Seg Neutrophils # Man Lymphocytes # (Manual) D-Dimer ABG pH ABG pO2 ABG HCO3 ABG O2 Saturation ABG Base Excess ABG Hemoglobin VBG pH Oxyhemoglobin Sodium 148 H Potassium 3.4 L Chloride 116.7 H Carbon Dioxide 15 L BUN 22 H Creatinine 2.7 H Glucose 190 H POC Glucose 206 H 176 H Lactic Acid Calcium 6.9 L Phosphorus Magnesium Ferritin Total Bilirubin Direct Bilirubin AST ALT Ammonia Lactate Dehydrogenase C-Reactive Protein Total Protein Albumin Urine Creatinine Urine Total Protein Coronavirus (PCR) 04/10/22 04/10/22 04/10/22 11:47 11:47 12:02 WBC RBC Hgb Hct RDW Lymph % (Auto) Lymph # (Auto) Seg Neutrophils % Seg Neuts % (Manual) Lymphocytes % (Manual) Seg Neutrophils # Seg Neutrophils # Man Lymphocytes # (Manual) D-Dimer ABG pH ABG pO2 ABG HCO3 ABG O2 Saturation ABG Base Excess ABG Hemoglobin VBG pH Oxyhemoglobin Sodium Potassium Chloride Carbon Dioxide BUN Creatinine Glucose POC Glucose 178 H Lactic Acid Calcium Phosphorus Magnesium Ferritin 1218.0 H Total Bilirubin Direct Bilirubin AST ALT Ammonia Lactate Dehydrogenase 482 H C-Reactive Protein 11.30 H Total Protein Albumin Urine Creatinine Urine Total Protein Coronavirus (PCR) 04/10/22 04/10/22 04/10/22 13:13 13:58 14:50 WBC RBC Hgb Hct RDW Lymph % (Auto) Lymph # (Auto) Seg Neutrophils % Seg Neuts % (Manual) Lymphocytes % (Manual) Seg Neutrophils # Seg Neutrophils # Man Lymphocytes # (Manual) D-Dimer ABG pH ABG pO2 ABG HCO3 ABG O2 Saturation ABG Base Excess ABG Hemoglobin VBG pH Oxyhemoglobin Sodium Potassium Chloride Carbon Dioxide BUN Creatinine Glucose POC Glucose 160 H 150 H Lactic Acid Calcium Phosphorus Magnesium Ferritin Total Bilirubin Direct Bilirubin AST ALT Ammonia Lactate Dehydrogenase C-Reactive Protein Total Protein Albumin Urine Creatinine 224.2 H Urine Total Protein 172 H Coronavirus (PCR) 04/10/22 04/10/22 04/10/22 15:24 16:38 16:56 WBC RBC Hgb Hct RDW Lymph % (Auto) Lymph # (Auto) Seg Neutrophils % Seg Neuts % (Manual) Lymphocytes % (Manual) Seg Neutrophils # Seg Neutrophils # Man Lymphocytes # (Manual) D-Dimer ABG pH ABG pO2 ABG HCO3 ABG O2 Saturation ABG Base Excess ABG Hemoglobin VBG pH Oxyhemoglobin Sodium Potassium Chloride Carbon Dioxide BUN Creatinine Glucose POC Glucose 140 H 154 H 149 H Lactic Acid Calcium Phosphorus Magnesium Ferritin Total Bilirubin Direct Bilirubin AST ALT Ammonia Lactate Dehydrogenase C-Reactive Protein Total Protein Albumin Urine Creatinine Urine Total Protein Coronavirus (PCR) 04/10/22 04/10/22 04/10/22 18:21 19:21 20:02 WBC RBC Hgb Hct RDW Lymph % (Auto) Lymph # (Auto) Seg Neutrophils % Seg Neuts % (Manual) Lymphocytes % (Manual) Seg Neutrophils # Seg Neutrophils # Man Lymphocytes # (Manual) D-Dimer ABG pH ABG pO2 ABG HCO3 ABG O2 Saturation ABG Base Excess ABG Hemoglobin VBG pH Oxyhemoglobin Sodium Potassium Chloride Carbon Dioxide BUN Creatinine Glucose POC Glucose 141 H 126 H 139 H Lactic Acid Calcium Phosphorus Magnesium Ferritin Total Bilirubin Direct Bilirubin AST ALT Ammonia Lactate Dehydrogenase C-Reactive Protein Total Protein Albumin Urine Creatinine Urine Total Protein Coronavirus (PCR) 04/10/22 04/10/22 04/10/22 21:04 21:58 22:20 WBC RBC Hgb Hct RDW Lymph % (Auto) Lymph # (Auto) Seg Neutrophils % Seg Neuts % (Manual) Lymphocytes % (Manual) Seg Neutrophils # Seg Neutrophils # Man Lymphocytes # (Manual) D-Dimer ABG pH ABG pO2 ABG HCO3 ABG O2 Saturation ABG Base Excess ABG Hemoglobin VBG pH Oxyhemoglobin Sodium Potassium Chloride 114.5 H Carbon Dioxide 17 L BUN 24 H Creatinine 2.5 H Glucose 165 H POC Glucose 144 H 161 H Lactic Acid Calcium 6.5 L Phosphorus Magnesium Ferritin Total Bilirubin Direct Bilirubin AST ALT Ammonia Lactate Dehydrogenase C-Reactive Protein Total Protein Albumin Urine Creatinine Urine Total Protein Coronavirus (PCR) 04/10/22 04/11/22 04/11/22 23:02 00:08 01:05 WBC RBC Hgb Hct RDW Lymph % (Auto) Lymph # (Auto) Seg Neutrophils % Seg Neuts % (Manual) Lymphocytes % (Manual) Seg Neutrophils # Seg Neutrophils # Man Lymphocytes # (Manual) D-Dimer ABG pH ABG pO2 ABG HCO3 ABG O2 Saturation ABG Base Excess ABG Hemoglobin VBG pH Oxyhemoglobin Sodium Potassium Chloride Carbon Dioxide BUN Creatinine Glucose POC Glucose 160 H 148 H 156 H Lactic Acid Calcium Phosphorus Magnesium Ferritin Total Bilirubin Direct Bilirubin AST ALT Ammonia Lactate Dehydrogenase C-Reactive Protein Total Protein Albumin Urine Creatinine Urine Total Protein Coronavirus (PCR) 04/11/22 04/11/22 04/11/22 01:30 02:05 03:04 WBC RBC Hgb Hct RDW Lymph % (Auto) Lymph # (Auto) Seg Neutrophils % Seg Neuts % (Manual) Lymphocytes % (Manual) Seg Neutrophils # Seg Neutrophils # Man Lymphocytes # (Manual) D-Dimer ABG pH ABG pO2 75.1 L ABG HCO3 17.2 L ABG O2 Saturation ABG Base Excess -5.8 L ABG Hemoglobin 11.5 L VBG pH Oxyhemoglobin Sodium Potassium Chloride Carbon Dioxide BUN Creatinine Glucose POC Glucose 150 H 168 H Lactic Acid Calcium Phosphorus Magnesium Ferritin Total Bilirubin Direct Bilirubin AST ALT Ammonia Lactate Dehydrogenase C-Reactive Protein Total Protein Albumin Urine Creatinine Urine Total Protein Coronavirus (PCR) 04/11/22 04/11/22 04/11/22 03:58 03:58 04:05 WBC 12.2 H RBC Hgb Hct RDW 15.7 H Lymph % (Auto) Lymph # (Auto) Seg Neutrophils % Seg Neuts % (Manual) Lymphocytes % (Manual) Seg Neutrophils # Seg Neutrophils # Man Lymphocytes # (Manual) D-Dimer ABG pH ABG pO2 ABG HCO3 ABG O2 Saturation ABG Base Excess ABG Hemoglobin VBG pH Oxyhemoglobin Sodium 147 H Potassium Chloride 114.2 H Carbon Dioxide 19 L BUN 26 H Creatinine 2.5 H Glucose 154 H POC Glucose 151 H Lactic Acid Calcium 6.8 L Phosphorus Magnesium Ferritin Total Bilirubin Direct Bilirubin AST 106 H ALT 60 H Ammonia Lactate Dehydrogenase C-Reactive Protein Total Protein 5.6 L Albumin 2.7 L Urine Creatinine Urine Total Protein Coronavirus (PCR) 04/11/22 04/11/22 04/11/22 05:14 06:19 08:23 WBC RBC Hgb Hct RDW Lymph % (Auto) Lymph # (Auto) Seg Neutrophils % Seg Neuts % (Manual) Lymphocytes % (Manual) Seg Neutrophils # Seg Neutrophils # Man Lymphocytes # (Manual) D-Dimer ABG pH ABG pO2 ABG HCO3 ABG O2 Saturation ABG Base Excess ABG Hemoglobin VBG pH Oxyhemoglobin Sodium Potassium Chloride Carbon Dioxide BUN Creatinine Glucose POC Glucose 134 H 144 H 143 H Lactic Acid Calcium Phosphorus Magnesium Ferritin Total Bilirubin Direct Bilirubin AST ALT Ammonia Lactate Dehydrogenase C-Reactive Protein Total Protein Albumin Urine Creatinine Urine Total Protein Coronavirus (PCR) 04/11/22 04/11/22 04/11/22 09:28 10:06 11:23 WBC RBC Hgb Hct RDW Lymph % (Auto) Lymph # (Auto) Seg Neutrophils % Seg Neuts % (Manual) Lymphocytes % (Manual) Seg Neutrophils # Seg Neutrophils # Man Lymphocytes # (Manual) D-Dimer ABG pH ABG pO2 ABG HCO3 ABG O2 Saturation ABG Base Excess ABG Hemoglobin VBG pH Oxyhemoglobin Sodium Potassium Chloride Carbon Dioxide BUN Creatinine Glucose POC Glucose 138 H Lactic Acid Calcium Phosphorus Magnesium Ferritin Total Bilirubin Direct Bilirubin AST ALT Ammonia Lactate Dehydrogenase C-Reactive Protein Total Protein Albumin Urine Creatinine 161.8 H 160.5 H Urine Total Protein Coronavirus (PCR) 04/11/22 04/11/22 04/12/22 15:59 23:58 00:01 WBC 16.2 H RBC Hgb Hct RDW 15.8 H Lymph % (Auto) 5.7 L Lymph # (Auto) 0.9 L Seg Neutrophils % 89.6 H Seg Neuts % (Manual) Lymphocytes % (Manual) Seg Neutrophils # 14.6 H Seg Neutrophils # Man Lymphocytes # (Manual) D-Dimer ABG pH ABG pO2 ABG HCO3 ABG O2 Saturation ABG Base Excess ABG Hemoglobin VBG pH Oxyhemoglobin Sodium Potassium Chloride Carbon Dioxide BUN Creatinine Glucose POC Glucose 166 H 150 H Lactic Acid Calcium Phosphorus Magnesium Ferritin Total Bilirubin Direct Bilirubin AST ALT Ammonia Lactate Dehydrogenase C-Reactive Protein Total Protein Albumin Urine Creatinine Urine Total Protein Coronavirus (PCR) 04/12/22 04/12/22 04/12/22 03:20 04:00 04:00 WBC RBC Hgb Hct RDW Lymph % (Auto) Lymph # (Auto) Seg Neutrophils % Seg Neuts % (Manual) Lymphocytes % (Manual) Seg Neutrophils # Seg Neutrophils # Man Lymphocytes # (Manual) D-Dimer 1874.86 H ABG pH 7.513 H ABG pO2 61.7 L ABG HCO3 ABG O2 Saturation 94.2 L ABG Base Excess ABG Hemoglobin 11.5 L VBG pH Oxyhemoglobin 92.6 L Sodium Potassium Chloride Carbon Dioxide BUN Creatinine Glucose POC Glucose Lactic Acid Calcium Phosphorus Magnesium Ferritin 890.0 H Total Bilirubin Direct Bilirubin AST ALT Ammonia Lactate Dehydrogenase C-Reactive Protein Total Protein Albumin Urine Creatinine Urine Total Protein Coronavirus (PCR) 04/12/22 04/12/22 04/12/22 04:00 04:20 04:59 WBC RBC Hgb Hct RDW Lymph % (Auto) Lymph # (Auto) Seg Neutrophils % Seg Neuts % (Manual) Lymphocytes % (Manual) Seg Neutrophils # Seg Neutrophils # Man Lymphocytes # (Manual) D-Dimer ABG pH ABG pO2 ABG HCO3 ABG O2 Saturation ABG Base Excess ABG Hemoglobin VBG pH Oxyhemoglobin Sodium 146 H Potassium Chloride 108.0 H Carbon Dioxide BUN 38 H Creatinine 2.3 H Glucose 173 H POC Glucose 146 H Lactic Acid Calcium 6.7 L Phosphorus Magnesium Ferritin Total Bilirubin Direct Bilirubin AST ALT Ammonia Lactate Dehydrogenase 763 H C-Reactive Protein 14.10 H Total Protein Albumin Urine Creatinine Urine Total Protein Coronavirus (PCR) 04/12/22 04/12/22 04/12/22 06:05 10:15 11:52 WBC RBC Hgb Hct RDW Lymph % (Auto) Lymph # (Auto) Seg Neutrophils % Seg Neuts % (Manual) Lymphocytes % (Manual) Seg Neutrophils # Seg Neutrophils # Man Lymphocytes # (Manual) D-Dimer ABG pH ABG pO2 ABG HCO3 ABG O2 Saturation ABG Base Excess ABG Hemoglobin VBG pH Oxyhemoglobin Sodium Potassium Chloride Carbon Dioxide BUN Creatinine Glucose POC Glucose 190 H 122 H 125 H Lactic Acid Calcium Phosphorus Magnesium Ferritin Total Bilirubin Direct Bilirubin AST ALT Ammonia Lactate Dehydrogenase C-Reactive Protein Total Protein Albumin Urine Creatinine Urine Total Protein Coronavirus (PCR) 04/12/22 04/13/22 04/13/22 13:18 00:14 03:41 WBC RBC Hgb Hct RDW Lymph % (Auto) Lymph # (Auto) Seg Neutrophils % Seg Neuts % (Manual) Lymphocytes % (Manual) Seg Neutrophils # Seg Neutrophils # Man Lymphocytes # (Manual) D-Dimer ABG pH 7.487 H ABG pO2 62.1 L ABG HCO3 ABG O2 Saturation 93.2 L ABG Base Excess ABG Hemoglobin 11.9 L VBG pH Oxyhemoglobin 91.5 L Sodium Potassium Chloride Carbon Dioxide BUN 38 H Creatinine 2.1 H Glucose 144 H POC Glucose 208 H Lactic Acid Calcium 7.1 L Phosphorus Magnesium Ferritin Total Bilirubin Direct Bilirubin AST ALT Ammonia Lactate Dehydrogenase C-Reactive Protein Total Protein Albumin Urine Creatinine Urine Total Protein Coronavirus (PCR) 05/04/13/22 04/14/22 04:31 04:31 03:54 WBC 13.9 H RBC Hgb Hct RDW 15.7 H Lymph % (Auto) Lymph # (Auto) Seg Neutrophils % Seg Neuts % (Manual) Lymphocytes % (Manual) Seg Neutrophils # Seg Neutrophils # Man Lymphocytes # (Manual) D-Dimer ABG pH 7.487 H ABG pO2 57.8 L ABG HCO3 ABG O2 Saturation 93.9 L ABG Base Excess ABG Hemoglobin 10.0 L VBG pH Oxyhemoglobin 92.3 L Sodium Potassium Chloride Carbon Dioxide BUN 42 H Creatinine 1.9 H Glucose 204 H POC Glucose Lactic Acid Calcium 7.4 L Phosphorus Magnesium Ferritin Total Bilirubin Direct Bilirubin AST ALT Ammonia Lactate Dehydrogenase C-Reactive Protein Total Protein Albumin Urine Creatinine Urine Total Protein Coronavirus (PCR) 04/14/22 04/14/22 04/14/22 07:28 07:28 07:28 WBC RBC Hgb Hct RDW Lymph % (Auto) Lymph # (Auto) Seg Neutrophils % Seg Neuts % (Manual) Lymphocytes % (Manual) Seg Neutrophils # Seg Neutrophils # Man Lymphocytes # (Manual) D-Dimer 5586.76 H ABG pH ABG pO2 ABG HCO3 ABG O2 Saturation ABG Base Excess ABG Hemoglobin VBG pH Oxyhemoglobin Sodium Potassium Chloride Carbon Dioxide BUN Creatinine Glucose POC Glucose Lactic Acid Calcium Phosphorus Magnesium Ferritin 454.7 H Total Bilirubin Direct Bilirubin AST ALT Ammonia Lactate Dehydrogenase 1345 H C-Reactive Protein 4.80 H Total Protein Albumin Urine Creatinine Urine Total Protein Coronavirus (PCR) 04/14/22 04/14/22 04/14/22 07:28 07:28 09:26 WBC 18.6 H RBC 3.59 L Hgb Hct RDW 15.6 H Lymph % (Auto) Lymph # (Auto) Seg Neutrophils % Seg Neuts % (Manual) Lymphocytes % (Manual) Seg Neutrophils # Seg Neutrophils # Man Lymphocytes # (Manual) D-Dimer ABG pH ABG pO2 ABG HCO3 ABG O2 Saturation ABG Base Excess ABG Hemoglobin VBG pH Oxyhemoglobin Sodium 149 H Potassium Chloride 110.3 H Carbon Dioxide BUN 57 H Creatinine 2.3 H Glucose 205 H POC Glucose Lactic Acid Calcium Phosphorus Magnesium 2.90 H Ferritin Total Bilirubin Direct Bilirubin AST ALT Ammonia Lactate Dehydrogenase C-Reactive Protein Total Protein Albumin Urine Creatinine Urine Total Protein Coronavirus (PCR) 04/14/22 04/14/22 04/14/22 11:52 15:41 17:18 WBC RBC Hgb Hct RDW Lymph % (Auto) Lymph # (Auto) Seg Neutrophils % Seg Neuts % (Manual) Lymphocytes % (Manual) Seg Neutrophils # Seg Neutrophils # Man Lymphocytes # (Manual) D-Dimer ABG pH 7.506 H ABG pO2 51.0 L ABG HCO3 ABG O2 Saturation 87.3 L ABG Base Excess ABG Hemoglobin 10.6 L VBG pH Oxyhemoglobin 85.4 L Sodium Potassium Chloride Carbon Dioxide BUN Creatinine Glucose POC Glucose 173 H 187 H Lactic Acid Calcium Phosphorus Magnesium Ferritin Total Bilirubin Direct Bilirubin AST ALT Ammonia Lactate Dehydrogenase C-Reactive Protein Total Protein Albumin Urine Creatinine Urine Total Protein Coronavirus (PCR) 04/15/22 04/15/22 04/15/22 00:03 03:43 05:47 WBC RBC Hgb Hct RDW Lymph % (Auto) Lymph # (Auto) Seg Neutrophils % Seg Neuts % (Manual) Lymphocytes % (Manual) Seg Neutrophils # Seg Neutrophils # Man Lymphocytes # (Manual) D-Dimer ABG pH 7.477 H ABG pO2 59.1 L ABG HCO3 ABG O2 Saturation 90.5 L ABG Base Excess ABG Hemoglobin 9.5 L VBG pH Oxyhemoglobin 88.7 L Sodium Potassium Chloride Carbon Dioxide BUN Creatinine Glucose POC Glucose 246 H 217 H Lactic Acid Calcium Phosphorus Magnesium Ferritin Total Bilirubin Direct Bilirubin AST ALT Ammonia Lactate Dehydrogenase C-Reactive Protein Total Protein Albumin Urine Creatinine Urine Total Protein Coronavirus (PCR) 04/15/22 04/15/22 04/15/22 09:40 10:00 12:00 WBC 19.3 H RBC 3.18 L Hgb 9.3 L Hct 27.7 L RDW 15.8 H Lymph % (Auto) Lymph # (Auto) Seg Neutrophils % Seg Neuts % (Manual) Lymphocytes % (Manual) Seg Neutrophils # Seg Neutrophils # Man Lymphocytes # (Manual) D-Dimer ABG pH ABG pO2 ABG HCO3 ABG O2 Saturation ABG Base Excess ABG Hemoglobin VBG pH Oxyhemoglobin Sodium 146 H Potassium Chloride 107.9 H Carbon Dioxide BUN 76 H Creatinine 1.9 H Glucose 214 H POC Glucose Lactic Acid 2.10 H* Calcium 7.7 L Phosphorus Magnesium Ferritin Total Bilirubin Direct Bilirubin AST ALT Ammonia Lactate Dehydrogenase C-Reactive Protein Total Protein Albumin Urine Creatinine Urine Total Protein Coronavirus (PCR) 04/15/22 04/15/22 04/15/22 12:21 17:51 21:39 WBC RBC Hgb Hct RDW Lymph % (Auto) Lymph # (Auto) Seg Neutrophils % Seg Neuts % (Manual) Lymphocytes % (Manual) Seg Neutrophils # Seg Neutrophils # Man Lymphocytes # (Manual) D-Dimer ABG pH ABG pO2 ABG HCO3 ABG O2 Saturation ABG Base Excess ABG Hemoglobin VBG pH Oxyhemoglobin Sodium Potassium Chloride Carbon Dioxide BUN Creatinine Glucose POC Glucose 236 H 255 H 223 H Lactic Acid Calcium Phosphorus Magnesium Ferritin Total Bilirubin Direct Bilirubin AST ALT Ammonia Lactate Dehydrogenase C-Reactive Protein Total Protein Albumin Urine Creatinine Urine Total Protein Coronavirus (PCR) 04/16/22 04/16/22 04/16/22 00:17 02:35 04:00 WBC RBC Hgb Hct RDW Lymph % (Auto) Lymph # (Auto) Seg Neutrophils % Seg Neuts % (Manual) Lymphocytes % (Manual) Seg Neutrophils # Seg Neutrophils # Man Lymphocytes # (Manual) D-Dimer ABG pH 7.318 L ABG pO2 71.1 L ABG HCO3 27.7 H ABG O2 Saturation 94.8 L ABG Base Excess ABG Hemoglobin 10.3 L VBG pH Oxyhemoglobin 92.9 L Sodium Potassium Chloride Carbon Dioxide BUN Creatinine Glucose POC Glucose 201 H Lactic Acid Calcium Phosphorus Magnesium Ferritin 446.2 H Total Bilirubin Direct Bilirubin AST ALT Ammonia Lactate Dehydrogenase C-Reactive Protein Total Protein Albumin Urine Creatinine Urine Total Protein Coronavirus (PCR) 04/16/22 04/16/22 04/16/22 04:00 06:00 Unknown WBC RBC Hgb Hct RDW Lymph % (Auto) Lymph # (Auto) Seg Neutrophils % Seg Neuts % (Manual) Lymphocytes % (Manual) Seg Neutrophils # Seg Neutrophils # Man Lymphocytes # (Manual) D-Dimer 3886.80 H ABG pH ABG pO2 ABG HCO3 ABG O2 Saturation ABG Base Excess ABG Hemoglobin VBG pH Oxyhemoglobin Sodium 148 H Potassium Chloride 109.9 H Carbon Dioxide BUN 84 H Creatinine 1.7 H Glucose 276 H POC Glucose Lactic Acid Calcium Phosphorus Magnesium Ferritin Total Bilirubin Direct Bilirubin 0.5 H AST 69 H ALT 120 H Ammonia Lactate Dehydrogenase 1467 H C-Reactive Protein 1.90 H Total Protein 5.9 L Albumin 3.5 L Urine Creatinine Urine Total Protein Coronavirus (PCR) 04/16/22 04/17/22 04/17/22 Unknown 05:12 05:12 WBC 25.2 H 22.2 H RBC 3.50 L Hgb Hct RDW 15.8 H 15.8 H Lymph % (Auto) Lymph # (Auto) Seg Neutrophils % Seg Neuts % (Manual) Lymphocytes % (Manual) Seg Neutrophils # Seg Neutrophils # Man Lymphocytes # (Manual) D-Dimer 3804.33 H ABG pH ABG pO2 ABG HCO3 ABG O2 Saturation ABG Base Excess ABG Hemoglobin VBG pH Oxyhemoglobin Sodium Potassium Chloride Carbon Dioxide BUN Creatinine Glucose POC Glucose Lactic Acid Calcium Phosphorus Magnesium Ferritin Total Bilirubin Direct Bilirubin AST ALT Ammonia Lactate Dehydrogenase C-Reactive Protein Total Protein Albumin Urine Creatinine Urine Total Protein Coronavirus (PCR) 04/17/22 04/17/22 04/17/22 05:12 17:27 20:04 WBC RBC Hgb Hct RDW Lymph % (Auto) Lymph # (Auto) Seg Neutrophils % Seg Neuts % (Manual) Lymphocytes % (Manual) Seg Neutrophils # Seg Neutrophils # Man Lymphocytes # (Manual) D-Dimer ABG pH ABG pO2 ABG HCO3 ABG O2 Saturation ABG Base Excess ABG Hemoglobin VBG pH Oxyhemoglobin Sodium 149 H Potassium 5.3 H Chloride 109.4 H Carbon Dioxide BUN 80 H Creatinine 1.5 H Glucose 320 H POC Glucose 308 H 301 H Lactic Acid Calcium Phosphorus Magnesium Ferritin Total Bilirubin Direct Bilirubin AST 171 H ALT 231 H Ammonia Lactate Dehydrogenase C-Reactive Protein Total Protein 5.4 L Albumin 3.7 L Urine Creatinine Urine Total Protein Coronavirus (PCR) 04/18/22 04/18/22 04/18/22 01:55 05:41 05:41 WBC RBC Hgb Hct RDW Lymph % (Auto) Lymph # (Auto) Seg Neutrophils % Seg Neuts % (Manual) Lymphocytes % (Manual) Seg Neutrophils # Seg Neutrophils # Man Lymphocytes # (Manual) D-Dimer ABG pH ABG pO2 ABG HCO3 ABG O2 Saturation ABG Base Excess ABG Hemoglobin VBG pH Oxyhemoglobin Sodium 156 H Potassium Chloride 117.8 H Carbon Dioxide BUN 69 H Creatinine 1.3 H Glucose 231 H POC Glucose 301 H Lactic Acid Calcium 8.3 L Phosphorus Magnesium Ferritin 570.8 H Total Bilirubin Direct Bilirubin AST ALT Ammonia Lactate Dehydrogenase 1473 H C-Reactive Protein Total Protein Albumin Urine Creatinine Urine Total Protein Coronavirus (PCR) 04/18/22 04/18/22 04/18/22 05:41 06:09 10:35 WBC 19.6 H RBC 3.38 L Hgb 9.7 L Hct 29.5 L RDW 15.9 H Lymph % (Auto) Lymph # (Auto) Seg Neutrophils % Seg Neuts % (Manual) Lymphocytes % (Manual) Seg Neutrophils # Seg Neutrophils # Man Lymphocytes # (Manual) D-Dimer ABG pH ABG pO2 ABG HCO3 ABG O2 Saturation ABG Base Excess ABG Hemoglobin VBG pH Oxyhemoglobin Sodium 156 H Potassium Chloride 118.2 H Carbon Dioxide 32 H BUN 66 H Creatinine 1.3 H Glucose 179 H POC Glucose 210 H Lactic Acid Calcium 8.3 L Phosphorus Magnesium Ferritin Total Bilirubin Direct Bilirubin AST 91 H ALT 234 H Ammonia Lactate Dehydrogenase C-Reactive Protein Total Protein 5.3 L Albumin 3.4 L Urine Creatinine Urine Total Protein Coronavirus (PCR) 04/18/22 04/18/22 04/19/22 11:57 23:36 03:21 WBC RBC Hgb Hct RDW Lymph % (Auto) Lymph # (Auto) Seg Neutrophils % Seg Neuts % (Manual) Lymphocytes % (Manual) Seg Neutrophils # Seg Neutrophils # Man Lymphocytes # (Manual) D-Dimer ABG pH ABG pO2 ABG HCO3 ABG O2 Saturation ABG Base Excess ABG Hemoglobin VBG pH Oxyhemoglobin Sodium Potassium Chloride Carbon Dioxide BUN Creatinine Glucose POC Glucose 161 H 209 H 184 H Lactic Acid Calcium Phosphorus Magnesium Ferritin Total Bilirubin Direct Bilirubin AST ALT Ammonia Lactate Dehydrogenase C-Reactive Protein Total Protein Albumin Urine Creatinine Urine Total Protein Coronavirus (PCR) 04/19/22 04/19/22 04/19/22 04:00 04:00 05:58 WBC 18.2 H RBC Hgb Hct RDW 15.7 H Lymph % (Auto) Lymph # (Auto) Seg Neutrophils % Seg Neuts % (Manual) Lymphocytes % (Manual) Seg Neutrophils # Seg Neutrophils # Man Lymphocytes # (Manual) D-Dimer ABG pH ABG pO2 ABG HCO3 ABG O2 Saturation ABG Base Excess ABG Hemoglobin VBG pH Oxyhemoglobin Sodium 160 H Potassium Chloride 119.7 H Carbon Dioxide 31 H BUN 60 H Creatinine 1.3 H Glucose 213 H POC Glucose 207 H Lactic Acid Calcium Phosphorus Magnesium Ferritin Total Bilirubin Direct Bilirubin AST 77 H ALT 208 H Ammonia Lactate Dehydrogenase C-Reactive Protein Total Protein 5.8 L Albumin 3.5 L Urine Creatinine Urine Total Protein Coronavirus (PCR)
[2022-04-19] MEDS: SENNOSIDES/DOCUSATE SODIUM 8.6/50 MG TAB FEEDTUBE SCH ×2 (10:00→21:43)
[2022-04-19] MEDS: FAMOTIDINE 10 MG TAB FEEDTUBE SCH ×2 (10:00→21:43)
[2022-04-19] MEDS: DEXTROSE 5% IN WATER 1,000 ML IV SCH (10:25)
[2022-04-19] MEDS: HEPARIN 5,000 UNIT/1 ML VIAL SUB-Q SCH ×2 (10:25→21:44)
--- NOTE | 2022-04-19 10:32 | Progress Note ---
<KEE GONZALEZ - Last Filed: 04/19/22 16:14> Assessment and Plan Assessment and plan: This is a 77-year-old female with DM and ovarian cancer in remission admitted for septic shock secondary to COVID-19 pneumonia, acute kidney injury, acute hypoxic respiratory failure and currently in multiorgan failure Hospital Course to Date: 04/10: Patient noted to have myoclonic jerking this morning and was given 2 mg of Ativan which aborted the jerking. Neurology was consulted and MRI and EEG were ordered. Patient admits to [facility] for MRI at this time. Patient is hypotensive and currently on Levophed, vasopressin and dobutamine. Nephrology consulted for renal failure. Remains on insulin drip and was placed on a bicarbonate drip this morning. Infectious disease consulted who added vancomy socrates and ordered follow-up labs. Dr. Craig had a conversation with family about prognosis and given multisystem organ failure. We will continue supportive care. 04/11/22-patient seen at bedside. T/V orally intubated. No purposeful response on assessment. make periodic jerking movement. EEG done today-will f/u with result. BICarb d/c -acidosis has improved-started on D5 11/28 NS. Reviewed specialist note and reces-renal US-no acute finding. Continue Pressors for MAPs >65. Wean as tolerated. Bicarb-d/c and start D5W. 04/12: Patient is following commands, nutrition consulted for tube feedings, PEEP decreased with possible PSV in the a.m., insulin drip discontinued and SSI/basal dose insulin started. [facility] will update son. 04/13: Renal function continues to improve, intermittently following commands, [facility] ordered 1 x 40 mg of Lasix repeat CXR in the a.m. Tolerating tube feedings. 04/14: PEEP increased per [facility], will not repeat Lasix again due to increasing renal functions. Ordered CT head. Overnight patient was tachypneic and agitated and Precedex drip was started. We will start Seroquel and wean Precedex as tolerated. 04/15: IVF started by nephro yesterday for hypernatremia, awaiting BMP for today to result. Overnight patient was started on propofol and has propofol and precedex infusing. Fentanyl gtt ordered and precedex gtt discontinued. 04/16: Patient remains on the vent, back on sedation overnight due to vent unsynchrony. Remains encephalopathic, EEG pending, Neurology reconsulted. Continue FWF Q4hrs for hypernatremia and SSI and basal insulin adjusted for better glycemic control. Worsening leukocytosis noted, patient remains afebrile. Patient completed X5 of IV Abx and still on IV steroids, will continue to monitor for now. ID is also following. D/C CCM plan for family phone conference with patient's son tomorrow to discuss goal of care. 04/17: Remains on the vent, mentation is unchanged, MRI and Neurology recs noted. FWF increased due to persistent hypernatremia, X1 dose of kayexalate was also given for hyperkalemia, renal function is improvement. Continue to monitor renal function and electrolytes. Insulin was adjusted for hyperglycemia. Plan for possible family conference meeting today with the hr systems analyst. 04/18: With worsening hypernatremia this am despite Q4hrs FWF and X1 L of D5 per Nephro. Unclear etiology at this time. Will continue FWF for now and Nephro is also following. ABD US pending for elevated LTFs, will continue to trend LFTs. Still hyperglycemic, insulin adjusted. Patient's family opted for trach and PEG. General Surgery consulted. 04/19: Hypernatremia worsen this am, FWF held due to NPO status. Order placed for D5W X2bags, serial Na ordered. Will also check some urine lytes and serum osmo. CT ado/pelvis and Abd US noted, LFT downtrending. Will continue to trend LFTs. Plan for possible trach and PEG by general Surgery. Neuro: Acute Metabolic Encephalopathy Myoclonic Jerks -Myoclonic jerking aborted with Ativan early in admission but none noted since -Initial CT head showed no acute abnormality -EEG absence of definite epileptiform abnormalities would not rule out the possibility of epilepsy, compatible with moderate to moderately severe diffuse encephalopathy -Repeat CTH shows no acute abnormality -MRI Brain noted -repeat eeg pending -Neurology reconsulted -Avoid delirium -Reorientation as needed -Maintain sleep-wake cycle Cardiac: NAD -Blood pressure monitoring per protocol -s/p vasopressor support with Levophed, dobutamine, vasopressin -MAP goal greater than 65 -Echocardiogram shows LVEF 55 to 60%, normal bivalve function, mildly dilated right ventricle Respiratory: Acute hypoxic respiratory failure ARDS COVID Pneumonia -CCM consulted, appreciate recommendations -Intubated in the emergency department 04/09 with 7.00 ETT at 22 the lips -Vent setting:PRVC- 40%,6,18,400 -A.m. ABG and CXR noted -CCM consulted, appreciate recommendations -Continue IV Steroids and Nebs per CCM -Continue IV Abx per ID -VAP bundle addressed -Aspiration precaution HOB above 30 -Daily ABG and CXR -Continue SPO2 monitoring for SPO2 goal above 92% -Patient family opted for trach and PEG -General Surgery consulted : Acute kidney injury likely secondary to ischemic acute tubular necrosis Hypernatremia -FeNa calculated at 0.13 -Renal ultrasound Shows mild echogenic kidneys which can be seen in medical renal disease, no hydronephrosis, small amount of free fluid in the abdomen -Nephrology consulted, appreciate recommendations -Renal function continue to improve -Worsen hypernatremia, unclear etiology at this time -FWF held due to NPO status. D5W ordered X2bags -Serial Na ordered. Urine Lytes and serum osmo orderd -Strict intake and output -Renally dose medications -Avoid nephrotoxic medications -Daily weights -Monitor and replace electrolytes as needed ID: Septic shock secondary to COVID-19 pneumonia Lactic Acidosis Leukocytosis -Infectious disease consulted, appreciate recommendations -Admit CXR showed bilateral air space opacities -Covid 19 PCR (+) -Antibiotic therapy with Rocephin (04/11-04/15) and vancomycin (04/11-04/14) -Decadron 8 mg daily for 10 days (04/09-04/18) -Now on Cefepine per ID -Per ID: Due to renal failure, not a candidate for remdesivir -S/p Actemra 04/10 -Contact/droplet precautions -f/u blood culture -Monitor WBC and temperature curve -Trend COVID-19 inflammatory markers Endo: h/o DM s/p DKA -S/p insulin drip -Remain hyperglycemic, probably due to IV steroids -SSI and Lantus adjusted -Continue Accu-Cheks every 6 -While critically ill target blood glucose of 140-180 Elevated Ddimer -most likely due to COVID -BLE dopplar US shows no DVT -Continue to trend inflammatory markers -Lovenox subcu -Monitor for signs of bleeding -SCDs to BLE while in bed -Transfuse hemoglobin less than 7 GI: Transaminitis -Presented with elevated LFTs -LTFs still labile -Abd US pending -Continue to trend LFTs GI/DVT Prophylaxis -PPI- Pepcid -Lovenox switch to heparin subQ due to ASHLEY -SCDs to bilateral lower extremities while in bed The high probability of a clinically significant, sudden or life threatening deterioration of the [multi] system(s) required my full and direct attention, intervention and personal management. The aggregate critical care time was [60] minutes. This time is in addition to time spent performing reported procedures but includes the following: [x] Data Review and interpretation [x] Patient assessment and monitoring of vital signs [x] Documentation [x] Medication orders and management Disposition Plan: ICU Total Time Spent with Patient (Minutes): 60 History Interval history: Patient seen and examined at the bedside. Remains intubated and on sedation. Open eyes spontaneously and tracking but does not follow commands. Pupils are round and reactive, GILES overnight Hospitalist Physical - Physical exam Narrative exam: General appearance: Present: no acute distress, well-nourished, obese, other (Intubated and sedated) - EENT Eyes: Present: PERRL ENT: other (Dry oral mucosa) - Neck Neck: Present: normal ROM - Respiratory Respiratory effort: normal Respiratory: bilateral: rhonchi - Cardiovascular Rhythm: regular Heart Sounds: Present: S1 & S2 - Extremities Extremities: no ischemia, pulses intact, pulses symmetrical Extremity abnormal: edema - Peripheral Assessment Bilateral Upper Extremity Edema Type: Pitting Edema Degree: 2+ Capillary Refill: < 3 seconds Skin Temperature: Warm Generalized Edema Type: Non-pitting Edema Degree: 2+ Capillary Refill: < 3 seconds Skin Temperature: Warm Peripheral Pulses: within normal limits - Abdominal General gastrointestinal: soft, non-distended, normal bowel sounds - Integumentary Integumentary: Present: warm, dry - Psychiatric Psychiatric: other (Intubated and sedated) - Neurologic Neurologic: moves all extremities (Non-purposeful movement of BUE, no movement in lower extremities), other (Intubated and sedated. Open eyes spontaneously, and tracking but does not follow commands. Pupils are round and reactive) - Allied Health Allied health notes reviewed: nursing, case management - Constitutional Vitals: Temp Pulse Resp BP Pulse Ox 99.9 F H 126 H 21 161/78 97 04/19/22 04:00 04/19/22 09:00 04/19/22 07:01 04/19/22 09:00 04/19/22 09:00 HEART Score - HEART Score Age: > 65 Risk factors: 1-2 risk factors Troponin: Troponin T < 0.010 ng/mL (0.00-0.029) 04/09/22 12:52 Troponin: < normal limit - Critical Actions Critical Actions: 4-6 pts:12-16.6% risk of adverse cardiac event. Should be admitted Results - Labs CBC & Chem 7: 04/19/22 04:00 04/19/22 04:00 Labs: Laboratory Last Values WBC 18.2 K/mm3 (4.5-11.0) H 04/19/22 04:00 RBC 3.88 M/mm3 (3.65-5.03) 04/19/22 04:00 Hgb 11.0 gm/dl (10.1-14.3) 04/19/22 04:00 Hct 34.9 % (30.3-42.9) 04/19/22 04:00 MCV 90 fl (79-97) 04/19/22 04:00 MCH 28 pg (28-32) 04/19/22 04:00 MCHC 32 % (30-34) 04/19/22 04:00 RDW 15.7 % (13.2-15.2) H 04/19/22 04:00 Plt Count 152 K/mm3 (140-440) 04/19/22 04:00 Lymph % (Auto) 5.7 % (13.4-35.0) L 04/12/22 00:01 [place] % (Auto) 4.5 % (0.0-7.3) 04/12/22 00:01 Eos % (Auto) 0.0 % (0.0-4.3) 04/12/22 00:01 Baso % (Auto) 0.2 % (0.0-1.8) 04/12/22 00:01 Lymph # (Auto) 0.9 K/mm3 (1.2-5.4) L 04/12/22 00:01 [place] # (Auto) 0.7 K/mm3 (0.0-0.8) 04/12/22 00:01 Eos # (Auto) 0.0 K/mm3 (0.0-0.4) 04/12/22 00:01 Baso # (Auto) 0.0 K/mm3 (0.0-0.1) 04/12/22 00:01 Add Manual Diff Complete 04/10/22 04:24 Total Counted 100 04/10/22 04:24 Seg Neutrophils % 89.6 % (40.0-70.0) H 04/12/22 00:01 Seg Neuts % (Manual) 94.0 % (40.0-70.0) H 04/10/22 04:24 Band Neutrophils % 0 % 04/10/22 04:24 Lymphocytes % (Manual) 3.0 % (13.4-35.0) L 04/10/22 04:24 Reactive Lymphs % (Man) 0 % 04/10/22 04:24 Monocytes % (Manual) 3.0 % (0.0-7.3) 04/10/22 04:24 Eosinophils % (Manual) 0 % (0.0-4.3) 04/10/22 04:24 Basophils % (Manual) 0 % (0.0-1.8) 04/10/22 04:24 Metamyelocytes % 0 % 04/10/22 04:24 Myelocytes % 0 % 04/10/22 04:24 Promyelocytes % 0 % 04/10/22 04:24 Blast Cells % 0 % 04/10/22 04:24 Nucleated RBC % Not Reportable 04/10/22 04:24 Seg Neutrophils # 14.6 K/mm3 (1.8-7.7) H 04/12/22 00:01 Seg Neutrophils # Man 15.4 K/mm3 (1.8-7.7) H 04/10/22 04:24 Band Neutrophils # 0.0 K/mm3 04/10/22 04:24 Lymphocytes # (Manual) 0.5 K/mm3 (1.2-5.4) L 04/10/22 04:24 Abs React Lymphs (Man) 0.0 K/mm3 04/10/22 04:24 Monocytes # (Manual) 0.5 K/mm3 (0.0-0.8) 04/10/22 04:24 Eosinophils # (Manual) 0.0 K/mm3 (0.0-0.4) 04/10/22 04:24 Basophils # (Manual) 0.0 K/mm3 (0.0-0.1) 04/10/22 04:24 Metamyelocytes # 0.0 K/mm3 04/10/22 04:24 Myelocytes # 0.0 K/mm3 04/10/22 04:24 Promyelocytes # 0.0 K/mm3 04/10/22 04:24 Blast Cells # 0.0 K/mm3 04/10/22 04:24 WBC Morphology Not Reportable 04/10/22 04:24 Hypersegmented Neuts Not Reportable 04/10/22 04:24 Hyposegmented Neuts Not Reportable 04/10/22 04:24 Hypogranular Neuts Not Reportable 04/10/22 04:24 Smudge Cells Not Reportable 04/10/22 04:24 Toxic Granulation Not Reportable 04/10/22 04:24 Toxic Vacuolation Not Reportable 04/10/22 04:24 Dohle Bodies Not Reportable 04/10/22 04:24 Pelger-Huet Anomaly Not Reportable 04/10/22 04:24 Aleja Rods Not Reportable 04/10/22 04:24 Platelet Estimate Consistent w auto 04/10/22 04:24 Clumped Platelets Not Reportable 04/10/22 04:24 Plt Clumps, EDTA Not Reportable 04/10/22 04:24 Large Platelets Not Reportable 04/10/22 04:24 Giant Platelets Rare 04/10/22 04:24 Platelet Satelliting Not Reportable 04/10/22 04:24 Plt Morphology Comment Not Reportable 04/10/22 04:24 RBC Morphology Normal 04/10/22 04:24 Dimorphic RBCs Not Reportable 04/10/22 04:24 Polychromasia Not Reportable 04/10/22 04:24 Hypochromasia Not Reportable 04/10/22 04:24 Poikilocytosis Not Reportable 04/10/22 04:24 Anisocytosis Not Reportable 04/10/22 04:24 Microcytosis Not Reportable 04/10/22 04:24 Macrocytosis Not Reportable 04/10/22 04:24 Spherocytes Not Reportable 04/10/22 04:24 Pappenheimer Bodies Not Reportable 04/10/22 04:24 Sickle Cells Not Reportable 04/10/22 04:24 Target Cells Not Reportable 04/10/22 04:24 Tear Drop Cells Not Reportable 04/10/22 04:24 Ovalocytes Not Reportable 04/10/22 04:24 Helmet Cells Not Reportable 04/10/22 04:24 [place] Bodies Not Reportable 04/10/22 04:24 [place] Rings Not Reportable 04/10/22 04:24 Chani Cells Not Reportable 04/10/22 04:24 Bite Cells Not Reportable 04/10/22 04:24 Crenated Cell Not Reportable 04/10/22 04:24 Elliptocytes Not Reportable 04/10/22 04:24 Acanthocytes (Spur) Not Reportable 04/10/22 04:24 Rouleaux Not Reportable 04/10/22 04:24 Hemoglobin C Crystals Not Reportable 04/10/22 04:24 Schistocytes Not Reportable 04/10/22 04:24 Malaria parasites Not Reportable 04/10/22 04:24 Allan Bodies Not Reportable 04/10/22 04:24 Hem Pathologist Commnt No 04/10/22 04:24 PT 14.5 Sec. (12.2-14.9) 04/09/22 12:52 INR 1.02 (0.87-1.13) 04/09/22 12:52 D-Dimer 3804.33 ng/mlDDU (0-234) H 04/17/22 05:12 ABG pH 7.318 pH Units (7.350-7.450) L 04/16/22 02:35 ABG pCO2 55.4 mm Hg 04/16/22 02:35 ABG pO2 71.1 mm Hg (80.0-90.0) L 04/16/22 02:35 ABG HCO3 27.7 mmol/L (20.0-26.0) H 04/16/22 02:35 ABG O2 Saturation 94.8 % (95.0-99.0) L 04/16/22 02:35 ABG O2 Content 13.6 (0.0-44) 04/16/22 02:35 ABG Base Excess 0.9 mmol/L (-2.0-3.0) 04/16/22 02:35 ABG Hemoglobin 10.3 gm/dl (12.0-16.0) L 04/16/22 02:35 ABG Carboxyhemoglobin 1.5 % (0.0-5.0) 04/16/22 02:35 ABG Methemoglobin 0.5 % (0.0-1.5) 04/16/22 02:35 VBG pH 7.303 (7.320-7.420) L 04/09/22 12:52 Oxyhemoglobin 92.9 % (95.0-99.0) L 04/16/22 02:35 FiO2 55 % 04/16/22 02:35 Sodium 160 mmol/L (137-145) H 04/19/22 04:00 Potassium 4.8 mmol/L (3.6-5.0) 04/19/22 04:00 Chloride 119.7 mmol/L (98-107) H 04/19/22 04:00 Carbon Dioxide 31 mmol/L (22-30) H 04/19/22 04:00 Anion Gap 14 mmol/L 04/19/22 04:00 BUN 60 mg/dL (7-17) H 04/19/22 04:00 Creatinine 1.3 mg/dL (0.6-1.2) H 04/19/22 04:00 Estimated GFR 48 ml/min 04/19/22 04:00 BUN/Creatinine Ratio 46 % 04/19/22 04:00 Glucose 213 mg/dL (65-100) H 04/19/22 04:00 POC Glucose 207 mg/dL (70-105) H 04/19/22 05:58 Lactic Acid 2.10 mmol/L (0.7-2.0) H* 04/15/22 12:00 Calcium 8.9 mg/dL (8.4-10.2) 04/19/22 04:00 Phosphorus 3.60 mg/dL (2.5-4.5) 04/14/22 07:28 Magnesium 2.90 mg/dL (1.7-2.3) H 04/14/22 07:28 Ferritin 570.8 ng/mL (10.0-200.0) H 04/18/22 05:41 Total Bilirubin 0.70 mg/dL (0.1-1.2) 04/19/22 04:00 Direct Bilirubin 0.5 mg/dL (0-0.2) H 04/16/22 04:00 Indirect Bilirubin 0.4 mg/dL 04/16/22 04:00 AST 77 units/L (5-40) H 04/19/22 04:00 ALT 208 units/L (7-56) H 04/19/22 04:00 Alkaline Phosphatase 126 units/L (35-129) 04/19/22 04:00 Ammonia 20.0 umol/L (25-60) L 04/09/22 12:52 Lactate Dehydrogenase 1473 units/L (91-180) H 04/18/22 05:41 Troponin T < 0.010 ng/mL (0.00-0.029) 04/09/22 12:52 C-Reactive Protein 0.80 mg/dL (0.00-1.30) 04/18/22 05:41 NT-Pro-B Natriuret Pep 101.1 pg/mL (0-900) 04/09/22 13:45 Total Protein 5.8 g/dL (6.3-8.2) L 04/19/22 04:00 Albumin 3.5 g/dL (3.9-5) L 04/19/22 04:00 Albumin/Globulin Ratio 1.5 % 04/19/22 04:00 Procalcitonin 3.13 ng/mL (<0.15) 04/10/22 11:47 TSH 1.560 mlU/mL (0.270-4.200) 04/09/22 12:52 Free T4 1.33 ng/dL (0.76-1.46) 04/09/22 12:52 Urine Color Yellow (Yellow) 04/09/22 13:24 Urine Turbidity Clear (Clear) 04/09/22 13:24 Urine pH 5.0 (5.0-7.0) 04/09/22 13:24 Ur Specific [place] 1.011 (1.003-1.030) 04/09/22 13:24 Urine Protein 30 mg/dl mg/dL (Negative) 04/09/22 13:24 Urine Glucose (UA) Neg mg/dL (Negative) 04/09/22 13:24 Urine Ketones 20 mg/dL (Negative) 04/09/22 13:24 Urine Blood Neg (Negative) 04/09/22 13:24 Urine Nitrite Neg (Negative) 04/09/22 13:24 Urine Bilirubin Neg (Negative) 04/09/22 13:24 Urine Urobilinogen 4.0 mg/dL (<2.0) 04/09/22 13:24 Ur Leukocyte Esterase Neg (Negative) 04/09/22 13:24 Urine WBC (Auto) 2.0 /HPF (0.0-6.0) 04/09/22 13:24 Urine RBC (Auto) < 1.0 /HPF (0.0-6.0) 04/09/22 13:24 U Epithel Cells (Auto) < 1.0 /HPF (0-13.0) 04/09/22 13:24 Urine Mucus Few /HPF 04/09/22 13:24 Urine Eosinophils None seen (None Seen) 04/10/22 14:50 Urine Total Volume 750 ml 04/11/22 11:23 Urine Creatinine 160.5 mg/dL (0.1-20.0) H 04/11/22 11:23 Ur Creatinine 24 Hour 1.2 (0.8-2.8) 04/11/22 11:23 Height (in) Not Reportable 04/11/22 11:23 Weight (lb) Not Reportable 04/11/22 11:23 Creatinine Clearance Not Reportable 04/11/22 11:23 Protein/Creatinin Ratio 0.77 04/10/22 14:50 Urine Sodium 17 mmol/L 04/10/22 14:50 Urine Total Protein 172 mg/dL (5-11.8) H 04/10/22 14:50 Random Vancomycin 11.9 ug/mL (0-40.0) 04/11/22 03:58 Urine Opiates Screen Presumptive negative 04/09/22 22:58 Urine Methadone Screen Presumptive negative 04/09/22 22:58 Ur Barbiturates Screen Presumptive negative 04/09/22 22:58 Ur Phencyclidine Scrn Presumptive negative 04/09/22 22:58 Ur Amphetamines Screen Presumptive negative 04/09/22 22:58 U Benzodiazepines Scrn Presumptive negative 04/09/22 22:58 Urine Cocaine Screen Presumptive negative 04/09/22 22:58 U Marijuana (THC) Screen Presumptive negative 04/09/22 22:58 Drugs of Abuse Note Disclamer 04/09/22 22:58 Coronavirus (PCR) Positive (Negative) A 04/09/22 13:02 Influenza A (RT-PCR) Negative (Negative) 04/09/22 14:15 Influenza B (RT-PCR) Negative (Negative) 04/09/22 14:15 Microbiology: Microbiology 04/17/22 18:14 Peripheral/Venous Blood Culture - Preliminary NO GROWTH AFTER 24 HOURS 04/17/22 18:14 Peripheral/Venous Blood Culture - Preliminary NO GROWTH AFTER 24 HOURS [place]/IV: Voiding Method Indwelling Catheter Active Medications - Current Medications Current Medications: Generic Name Dose Route Start Last Admin Trade Name Freq PRN Reason Stop Dose Admin Acetaminophen 650 mg 04/09/22 18:11 Acetaminophen 325 Mg Tab PO Q4H PRN Pain MILD(1-3)/Fever >100.5/CARCAMO Dextrose 0 ml 04/10/22 00:40 Dextrose 50% In Water (25gm) 50 Ml Syringe IV Q30MIN PRN Hypoglycemia Protocol Famotidine 10 mg 04/14/22 10:00 04/19/22 10:00 Famotidine 10 Mg Tab FEEDTUBE Not Given BID JO ANN Fentanyl 50 mcg 04/15/22 09:25 Fentanyl 100 Mcg/2 Ml Inj IV Q10MIN PRN ANALGESIA Heparin Sodium (Porcine) 5,000 unit 04/17/22 10:00 04/19/22 10:25 Heparin 5,000 Unit/1 Ml Vial SUB-Q 5,000 unit Q12HR JO ANN Administration Fentanyl Citrate 2,000 mcg in 100 mls @ 4.155 mls/hr 04/15/22 10:00 04/19/22 03:32 Fentanyl Drip Premix IV 1 mcg/kg/hr TITR JO ANN 4.155 mls/hr Administration Protocol 1 MCG/KG/HR Cefepime HCl 2 gm in 100 mls @ 200 mls/hr 04/16/22 19:00 04/19/22 08:00 Cefepime/Ns 2 Gm/100 Ml IV 200 mls/hr Q12H JO ANN Administration Protocol Dextrose 1,000 mls @ 100 mls/hr 04/19/22 10:00 04/19/22 10:25 D5w IV 04/20/22 19:59 100 mls/hr DIRECT JO ANN Administration Insulin Glargine 30 units 04/17/22 22:00 04/19/22 00:26 Insulin Glargine 100 Units/Ml SUB-Q 30 units QHS JO ANN Administration Insulin Human Lispro 0 unit 04/18/22 12:00 04/19/22 06:33 Insulin Lispro 100 Unit/Ml SUB-Q 4 unit Q6HR JO ANN Administration Protocol Ondansetron HCl 4 mg 04/09/22 18:11 Ondansetron 4 Mg/2 Ml Inj IV Q8H PRN Nausea And Vomiting Senna/Docusate Sodium 2 tab 04/15/22 14:00 04/19/22 10:00 Sennosides/Docusate Sodium 8.6/50 Mg Tab FEEDTUBE Not Given BID JO ANN Sodium Chloride 10 ml 04/09/22 22:00 04/19/22 10:25 Sodium Chloride 0.9% 10 Ml Flush Syringe IV 10 ml BID JO ANN Administration Sodium Chloride 10 ml 04/09/22 18:11 Sodium Chloride 0.9% 10 Ml Flush Syringe IV PRN PRN LINE FLUSH Nutrition/Malnutrition Assess - Dietary Evaluation Nutrition/Malnutrition Findings: Nutrition Notes Start: 04/12/22 10:07 Freq: Status: Active Protocol: Document 04/15/22 15:18 [facility] (Rec: 04/15/22 15:23 [facility] [id number]) Nutrition Notes Initial or Follow up Reassessment Current Diagnosis Acute Kidney Injury,Diabetes, Sepsis,Respiratory Failure Other Pertinent Diagnosis AMS, Bilat pneu, COVID-19 (+), Hypotension Current Diet TF - Glucerna 1.2 at 55ml/hr Labs/Tests Na 146 BUN 76 Cr 1.9 BG 214 Pertinent Medications Propofol at 9.972ml/hr ( provides 263 kcal) Height 5 ft 7 in Weight 83.1 kg [place] Body Weight (kg) 61.36 BMI 28.7 Weight change and time frame 98% energy 79% pro Weight Status Overweight Subjective/Other Information Pt remains on vent support; not on pressor support at this time. Renal function being monitored closely. Observed TF infusing at goal rate. Burn Absent Trauma Absent #1 Nutrition Diagnosis Inadequate oral intake As Evidenced by Signs and Symptoms EN support continues Diagnosis Progress(for reassessment Continues documentation) Is patient on ventilator? Yes Is Patient Ambulatory and/or Out of Bed No [facility] 6712.066 Calculation Used for Recommendations [facility] Additional Notes Pro needs 1.2-2g/k-166g/ day Fluid needs 1ml/kcal Nutrition Intervention Nutrition Support: Continue Glucerna 1.2 at 55ml/ hr with 100ml water flush q4h. Kcal 1,584 Protein (gm) 79 Carbohydrates (gm) 151 Fat (gm) 79 Fluid (mL) 1,063 Fiber (gm) 21 Goal #1 TF tolerance Goal #2 TF to meet at least 75% energy and pro needs Follow-Up By: 04/22/22 Additional Comments F/U: stable TF, vent status, renal function, propofol <JS HAIDER - Last Filed: 04/20/22 07:07> Assessment and Plan Assessment and plan: I saw and evaluated the patient. I agree with the findings and the plan of care as documented in the Nurse Practitioner's~note, with the following corrections and additions. Hospitalist Physical - Constitutional Vitals: Temp Pulse Resp BP Pulse Ox 96.5 F L 107 H 21 144/71 98 04/20/22 00:00 04/20/22 04:17 04/20/22 01:01 04/20/22 04:17 04/20/22 04:17 HEART Score - HEART Score Troponin: Troponin T < 0.010 ng/mL (0.00-0.029) 04/09/22 12:52 Results - Labs CBC & Chem 7: 04/19/22 04:00 04/20/22 01:10 Labs: Laboratory Last Values WBC 18.2 K/mm3 (4.5-11.0) H 04/19/22 04:00 RBC 3.88 M/mm3 (3.65-5.03) 04/19/22 04:00 Hgb 11.0 gm/dl (10.1-14.3) 04/19/22 04:00 Hct 34.9 % (30.3-42.9) 04/19/22 04:00 MCV 90 fl (79-97) 04/19/22 04:00 MCH 28 pg (28-32) 04/19/22 04:00 MCHC 32 % (30-34) 04/19/22 04:00 RDW 15.7 % (13.2-15.2) H 04/19/22 04:00 Plt Count 152 K/mm3 (140-440) 04/19/22 04:00 Lymph % (Auto) 5.7 % (13.4-35.0) L 04/12/22 00:01 [place] % (Auto) 4.5 % (0.0-7.3) 04/12/22 00:01 Eos % (Auto) 0.0 % (0.0-4.3) 04/12/22 00:01 Baso % (Auto) 0.2 % (0.0-1.8) 04/12/22 00:01 Lymph # (Auto) 0.9 K/mm3 (1.2-5.4) L 04/12/22 00:01 [place] # (Auto) 0.7 K/mm3 (0.0-0.8) 04/12/22 00:01 Eos # (Auto) 0.0 K/mm3 (0.0-0.4) 04/12/22 00:01 Baso # (Auto) 0.0 K/mm3 (0.0-0.1) 04/12/22 00:01 Add Manual Diff Complete 04/10/22 04:24 Total Counted 100 04/10/22 04:24 Seg Neutrophils % 89.6 % (40.0-70.0) H 04/12/22 00:01 Seg Neuts % (Manual) 94.0 % (40.0-70.0) H 04/10/22 04:24 Band Neutrophils % 0 % 04/10/22 04:24 Lymphocytes % (Manual) 3.0 % (13.4-35.0) L 04/10/22 04:24 Reactive Lymphs % (Man) 0 % 04/10/22 04:24 Monocytes % (Manual) 3.0 % (0.0-7.3) 04/10/22 04:24 Eosinophils % (Manual) 0 % (0.0-4.3) 04/10/22 04:24 Basophils % (Manual) 0 % (0.0-1.8) 04/10/22 04:24 Metamyelocytes % 0 % 04/10/22 04:24 Myelocytes % 0 % 04/10/22 04:24 Promyelocytes % 0 % 04/10/22 04:24 Blast Cells % 0 % 04/10/22 04:24 Nucleated RBC % Not Reportable 04/10/22 04:24 Seg Neutrophils # 14.6 K/mm3 (1.8-7.7) H 04/12/22 00:01 Seg Neutrophils # Man 15.4 K/mm3 (1.8-7.7) H 04/10/22 04:24 Band Neutrophils # 0.0 K/mm3 04/10/22 04:24 Lymphocytes # (Manual) 0.5 K/mm3 (1.2-5.4) L 04/10/22 04:24 Abs React Lymphs (Man) 0.0 K/mm3 04/10/22 04:24 Monocytes # (Manual) 0.5 K/mm3 (0.0-0.8) 04/10/22 04:24 Eosinophils # (Manual) 0.0 K/mm3 (0.0-0.4) 04/10/22 04:24 Basophils # (Manual) 0.0 K/mm3 (0.0-0.1) 04/10/22 04:24 Metamyelocytes # 0.0 K/mm3 04/10/22 04:24 Myelocytes # 0.0 K/mm3 04/10/22 04:24 Promyelocytes # 0.0 K/mm3 04/10/22 04:24 Blast Cells # 0.0 K/mm3 04/10/22 04:24 WBC Morphology Not Reportable 04/10/22 04:24 Hypersegmented Neuts Not Reportable 04/10/22 04:24 Hyposegmented Neuts Not Reportable 04/10/22 04:24 Hypogranular Neuts Not Reportable 04/10/22 04:24 Smudge Cells Not Reportable 04/10/22 04:24 Toxic Granulation Not Reportable 04/10/22 04:24 Toxic Vacuolation Not Reportable 04/10/22 04:24 Dohle Bodies Not Reportable 04/10/22 04:24 Pelger-Huet Anomaly Not Reportable 04/10/22 04:24 Aleja Rods Not Reportable 04/10/22 04:24 Platelet Estimate Consistent w auto 04/10/22 04:24 Clumped Platelets Not Reportable 04/10/22 04:24 Plt Clumps, EDTA Not Reportable 04/10/22 04:24 Large Platelets Not Reportable 04/10/22 04:24 Giant Platelets Rare 04/10/22 04:24 Platelet Satelliting Not Reportable 04/10/22 04:24 Plt Morphology Comment Not Reportable 04/10/22 04:24 RBC Morphology Normal 04/10/22 04:24 Dimorphic RBCs Not Reportable 04/10/22 04:24 Polychromasia Not Reportable 04/10/22 04:24 Hypochromasia Not Reportable 04/10/22 04:24 Poikilocytosis Not Reportable 04/10/22 04:24 Anisocytosis Not Reportable 04/10/22 04:24 Microcytosis Not Reportable 04/10/22 04:24 Macrocytosis Not Reportable 04/10/22 04:24 Spherocytes Not Reportable 04/10/22 04:24 Pappenheimer Bodies Not Reportable 04/10/22 04:24 Sickle Cells Not Reportable 04/10/22 04:24 Target Cells Not Reportable 04/10/22 04:24 Tear Drop Cells Not Reportable 04/10/22 04:24 Ovalocytes Not Reportable 04/10/22 04:24 Helmet Cells Not Reportable 04/10/22 04:24 [place] Bodies Not Reportable 04/10/22 04:24 [place] Rings Not Reportable 04/10/22 04:24 Chani Cells Not Reportable 04/10/22 04:24 Bite Cells Not Reportable 04/10/22 04:24 Crenated Cell Not Reportable 04/10/22 04:24 Elliptocytes Not Reportable 04/10/22 04:24 Acanthocytes (Spur) Not Reportable 04/10/22 04:24 Rouleaux Not Reportable 04/10/22 04:24 Hemoglobin C Crystals Not Reportable 04/10/22 04:24 Schistocytes Not Reportable 04/10/22 04:24 Malaria parasites Not Reportable 04/10/22 04:24 Allan Bodies Not Reportable 04/10/22 04:24 Hem Pathologist Commnt No 04/10/22 04:24 PT 14.5 Sec. (12.2-14.9) 04/09/22 12:52 INR 1.02 (0.87-1.13) 04/09/22 12:52 D-Dimer 3804.33 ng/mlDDU (0-234) H 04/17/22 05:12 ABG pH 7.379 pH Units (7.350-7.450) 04/20/22 04:17 ABG pCO2 55.3 mm Hg 04/20/22 04:17 ABG pO2 86.0 mm Hg (80.0-90.0) 04/20/22 04:17 ABG HCO3 31.9 mmol/L (20.0-26.0) H 04/20/22 04:17 ABG O2 Saturation 96.8 % (95.0-99.0) 04/20/22 04:17 ABG O2 Content 13.8 (0.0-44) 04/20/22 04:17 ABG Base Excess 5.7 mmol/L (-2.0-3.0) H 04/20/22 04:17 ABG Hemoglobin 10.3 gm/dl (12.0-16.0) L 04/20/22 04:17 ABG Carboxyhemoglobin 1.7 % (0.0-5.0) 04/20/22 04:17 ABG Methemoglobin 0.6 % (0.0-1.5) 04/20/22 04:17 VBG pH 7.303 (7.320-7.420) L 04/09/22 12:52 Oxyhemoglobin 94.6 % (95.0-99.0) L 04/20/22 04:17 FiO2 40 % 04/20/22 04:17 Sodium 151 mmol/L (137-145) H D 04/20/22 01:10 Potassium 4.8 mmol/L (3.6-5.0) 04/19/22 04:00 Chloride 119.7 mmol/L (98-107) H 04/19/22 04:00 Carbon Dioxide 31 mmol/L (22-30) H 04/19/22 04:00 Anion Gap 14 mmol/L 04/19/22 04:00 BUN 60 mg/dL (7-17) H 04/19/22 04:00 Creatinine 1.3 mg/dL (0.6-1.2) H 04/19/22 04:00 Estimated GFR 48 ml/min 04/19/22 04:00 BUN/Creatinine Ratio 46 % 04/19/22 04:00 Glucose 213 mg/dL (65-100) H 04/19/22 04:00 POC Glucose 188 mg/dL (70-105) H 04/19/22 21:56 Osmolality 361 Mosm/kg 04/19/22 12:10 Lactic Acid 2.10 mmol/L (0.7-2.0) H* 04/15/22 12:00 Calcium 8.9 mg/dL (8.4-10.2) 04/19/22 04:00 Phosphorus 3.60 mg/dL (2.5-4.5) 04/14/22 07:28 Magnesium 2.90 mg/dL (1.7-2.3) H 04/14/22 07:28 Ferritin 570.8 ng/mL (10.0-200.0) H 04/18/22 05:41 Total Bilirubin 0.70 mg/dL (0.1-1.2) 04/19/22 04:00 Direct Bilirubin 0.5 mg/dL (0-0.2) H 04/16/22 04:00 Indirect Bilirubin 0.4 mg/dL 04/16/22 04:00 AST 77 units/L (5-40) H 04/19/22 04:00 ALT 208 units/L (7-56) H 04/19/22 04:00 Alkaline Phosphatase 126 units/L (35-129) 04/19/22 04:00 Ammonia 20.0 umol/L (25-60) L 04/09/22 12:52 Lactate Dehydrogenase 1473 units/L (91-180) H 04/18/22 05:41 Troponin T < 0.010 ng/mL (0.00-0.029) 04/09/22 12:52 C-Reactive Protein 0.80 mg/dL (0.00-1.30) 04/18/22 05:41 NT-Pro-B Natriuret Pep 101.1 pg/mL (0-900) 04/09/22 13:45 Total Protein 5.8 g/dL (6.3-8.2) L 04/19/22 04:00 Albumin 3.5 g/dL (3.9-5) L 04/19/22 04:00 Albumin/Globulin Ratio 1.5 % 04/19/22 04:00 Procalcitonin 3.13 ng/mL (<0.15) 04/10/22 11:47 TSH 1.560 mlU/mL (0.270-4.200) 04/09/22 12:52 Free T4 1.33 ng/dL (0.76-1.46) 04/09/22 12:52 Urine Color Yellow (Yellow) 04/09/22 13:24 Urine Turbidity Clear (Clear) 04/09/22 13:24 Urine pH 5.0 (5.0-7.0) 04/09/22 13:24 Ur Specific Lynn 1.011 (1.003-1.030) 04/09/22 13:24 Urine Protein 30 mg/dl mg/dL (Negative) 04/09/22 13:24 Urine Glucose (UA) Neg mg/dL (Negative) 04/09/22 13:24 Urine Ketones 20 mg/dL (Negative) 04/09/22 13:24 Urine Blood Neg (Negative) 04/09/22 13:24 Urine Nitrite Neg (Negative) 04/09/22 13:24 Urine Bilirubin Neg (Negative) 04/09/22 13:24 Urine Urobilinogen 4.0 mg/dL (<2.0) 04/09/22 13:24 Ur Leukocyte Esterase Neg (Negative) 04/09/22 13:24 Urine WBC (Auto) 2.0 /HPF (0.0-6.0) 04/09/22 13:24 Urine RBC (Auto) < 1.0 /HPF (0.0-6.0) 04/09/22 13:24 U Epithel Cells (Auto) < 1.0 /HPF (0-13.0) 04/09/22 13:24 Urine Mucus Few /HPF 04/09/22 13:24 Urine Eosinophils None seen (None Seen) 04/10/22 14:50 Urine Osmolality 415 Mosm/kg 04/19/22 22:32 Urine Total Volume 750 ml 04/11/22 11:23 Urine Creatinine 28.3 mg/dL (0.1-20.0) H 04/19/22 22:32 Ur Creatinine 24 Hour 1.2 (0.8-2.8) 04/11/22 11:23 Height (in) Not Reportable 04/11/22 11:23 Weight (lb) Not Reportable 04/11/22 11:23 Creatinine Clearance Not Reportable 04/11/22 11:23 Protein/Creatinin Ratio 0.77 04/10/22 14:50 Urine Sodium 89 mmol/L 04/19/22 22:32 Urine Total Protein 172 mg/dL (5-11.8) H 04/10/22 14:50 Random Vancomycin 11.9 ug/mL (0-40.0) 04/11/22 03:58 Urine Opiates Screen Presumptive negative 04/09/22 22:58 Urine Methadone Screen Presumptive negative 04/09/22 22:58 Ur Barbiturates Screen Presumptive negative 04/09/22 22:58 Ur Phencyclidine Scrn Presumptive negative 04/09/22 22:58 Ur Amphetamines Screen Presumptive negative 04/09/22 22:58 U Benzodiazepines Scrn Presumptive negative 04/09/22 22:58 Urine Cocaine Screen Presumptive negative 04/09/22 22:58 U Marijuana (THC) Screen Presumptive negative 04/09/22 22:58 Drugs of Abuse Note Disclamer 04/09/22 22:58 Coronavirus (PCR) Positive (Negative) A 04/09/22 13:02 Influenza A (RT-PCR) Negative (Negative) 04/09/22 14:15 Influenza B (RT-PCR) Negative (Negative) 04/09/22 14:15 Microbiology: Microbiology 04/17/22 18:14 Peripheral/Venous Blood Culture - Preliminary NO GROWTH AFTER 48 HOURS 04/17/22 18:14 Peripheral/Venous Blood Culture - Preliminary NO GROWTH AFTER 48 HOURS 04/18/22 Unknown Tracheal Aspirate Sputum Culture - Preliminary [place]/IV: Voiding Method Indwelling Catheter Active Medications - Current Medications Current Medications: Generic Name Dose Route Start Last Admin Trade Name Freq PRN Reason Stop Dose Admin Acetaminophen 650 mg 04/09/22 18:11 Acetaminophen 325 Mg Tab PO Q4H PRN Pain MILD(1-3)/Fever >100.5/CARCAMO Dextrose 0 ml 04/10/22 00:40 Dextrose 50% In Water (25gm) 50 Ml Syringe IV Q30MIN PRN Hypoglycemia Protocol Famotidine 10 mg 04/14/22 10:00 04/19/22 21:43 Famotidine 10 Mg Tab FEEDTUBE 10 mg BID JO ANN Administration Fentanyl 50 mcg 04/15/22 09:25 Fentanyl 100 Mcg/2 Ml Inj IV Q10MIN PRN ANALGESIA Heparin Sodium (Porcine) 5,000 unit 04/17/22 10:00 04/19/22 21:44 Heparin 5,000 Unit/1 Ml Vial SUB-Q 5,000 unit Q12HR JO ANN Administration Fentanyl Citrate 2,000 mcg in 100 mls @ 4.155 mls/hr 04/15/22 10:00 04/19/22 22:07 Fentanyl Drip Premix IV 1 mcg/kg/hr TITR JO ANN 4.155 mls/hr Administration Protocol 1 MCG/KG/HR Cefepime HCl 2 gm in 100 mls @ 200 mls/hr 04/16/22 19:00 04/19/22 21:38 Cefepime/Ns 2 Gm/100 Ml IV 200 mls/hr Q12H JO ANN Administration Protocol Dextrose 1,000 mls @ 100 mls/hr 04/19/22 10:00 04/20/22 01:08 D5w IV 04/20/22 19:59 100 mls/hr DIRECT JO ANN Administration Insulin Glargine 35 units 04/19/22 16:18 04/19/22 22:42 Insulin Glargine 100 Units/Ml SUB-Q 35 units QHS JO ANN Administration Insulin Human Lispro 0 unit 04/18/22 12:00 04/20/22 06:32 Insulin Lispro 100 Unit/Ml SUB-Q 4 unit Q6HR JO ANN Administration Protocol Ondansetron HCl 4 mg 04/09/22 18:11 Ondansetron 4 Mg/2 Ml Inj IV Q8H PRN Nausea And Vomiting Senna/Docusate Sodium 2 tab 04/15/22 14:00 04/19/22 21:43 Sennosides/Docusate Sodium 8.6/50 Mg Tab FEEDTUBE 2 tab BID JO ANN Administration Sodium Chloride 10 ml 04/09/22 22:00 04/20/22 01:09 Sodium Chloride 0.9% 10 Ml Flush Syringe IV 10 ml BID JO ANN Administration Sodium Chloride 10 ml 04/09/22 18:11 Sodium Chloride 0.9% 10 Ml Flush Syringe IV PRN PRN LINE FLUSH Nutrition/Malnutrition Assess - Dietary Evaluation Nutrition/Malnutrition Findings: Nutrition Notes Start: 04/12/22 10:07 Freq: Status: Active Protocol: Document 04/15/22 15:18 RYDER (Rec: 04/15/22 15:23 RYDER [id number]) Nutrition Notes Initial or Follow up Reassessment Current Diagnosis Acute Kidney Injury,Diabetes, Sepsis,Respiratory Failure Other Pertinent Diagnosis AMS, Bilat pneu, COVID-19 (+), Hypotension Current Diet TF - Glucerna 1.2 at 55ml/hr Labs/Tests Na 146 BUN 76 Cr 1.9 BG 214 Pertinent Medications Propofol at 9.972ml/hr ( provides 263 kcal) Height 5 ft 7 in Weight 83.1 kg [place] Body Weight (kg) 61.36 BMI 28.7 Weight change and time frame 98% energy 79% pro Weight Status Overweight Subjective/Other Information Pt remains on vent support; not on pressor support at this time. Renal function being monitored closely. Observed TF infusing at goal rate. Burn Absent Trauma Absent #1 Nutrition Diagnosis Inadequate oral intake As Evidenced by Signs and Symptoms EN support continues Diagnosis Progress(for reassessment Continues documentation) Is patient on ventilator? Yes Is Patient Ambulatory and/or Out of Bed No REE-([facility]-confined to bed) [phone] Calculation Used for Recommendations [facility] Additional Notes Pro needs 1.2-2g/k-166g/ day Fluid needs 1ml/kcal Nutrition Intervention Nutrition Support: Continue Glucerna 1.2 at 55ml/ hr with 100ml water flush q4h. Kcal 1,584 Protein (gm) 79 Carbohydrates (gm) 151 Fat (gm) 79 Fluid (mL) 1,063 Fiber (gm) 21 Goal #1 TF tolerance Goal #2 TF to meet at least 75% energy and pro needs Follow-Up By: 04/22/22 Additional Comments F/U: stable TF, vent status, renal function, propofol
--- NOTE | 2022-04-19 10:50 | Progress Note ---
Assessment and Plan Assessment: Acute Renal Failure likely secondary to Ischemic ATN due to Sepsis and Hypotenison COVID positive Sepsis Hypotension Diabetes Mellitus/DKA Acute Respiratory Failure Hypokalemia, now Hyperkalemic Metabolic Acidosis Hypophosphatemia Plan: Renal labs reviewed. Serum creatinine 1.3 today, yesterday's was 1.3, stable. , yesterday's was 80. UOP was 3150 ml. Baseline serum creatinine unknown. Creatinine clearance on 04/11/22 was 24 ml/min Renal ultrasound- no obstruction Hypernatremia-Sodium 160 today, yesterday was 156. Ordered 1/2NS@ 75 ml/hr yesterday and this was not hung per nurse Avery. States I should talk with hospitalist as they stopped it out of concern for fluid overload. When spoke with hospitalist [employer], she stated that there team they did not stop the IVF that was ordered yesterday. Currently patient is with a sodium level of 160. D5W noted to be currently ordered at a rate of 100 ml per hour, nurse states she is in process of hanging it. Free water 400 ml every 4 hours via tube feeds- was not getting this due to initially being NPO for abdominal ultrasound yesterday and then for possible PEG/trach placement. Nurse states that PEG/Trach placement is not being done due to patient's COVID positive status. Advised free water flushes to be resumed. Check sodium levels every 4 hours COVID positive-as per ID Renally dose medications Obtain daily weights Monitor I/O's daily Will continue to monitor sodium and renal function closely Plan of care reviewed by Dr. Lang Subjective Date of service: 04/19/22 Principal diagnosis: encephalopathy Interval history: Patient with active COVID-19 infection, Intubated. Objective - Vital Signs Vital signs: Vital Signs - 12hr 04/18/22 04/18/22 04/19/22 23:01 23:05 00:00 Temperature 98.9 F Pulse Rate 123 H 123 H Pulse Rate [ 123 H From Monitor] Respiratory 19 19 18 Rate Blood Pressure 145/69 145/69 O2 Sat by Pulse 98 98 97 Oximetry 04/19/22 04/19/22 04/19/22 00:01 00:02 01:01 Temperature Pulse Rate 127 H 126 H 125 H Pulse Rate [ From Monitor] Respiratory 20 21 Rate Blood Pressure 139/71 139/71 115/76 O2 Sat by Pulse 96 96 96 Oximetry 04/19/22 04/19/22 04/19/22 02:01 03:01 03:57 Temperature Pulse Rate 124 H 124 H 125 H Pulse Rate [ From Monitor] Respiratory 23 22 Rate Blood Pressure 131/71 141/72 143/77 O2 Sat by Pulse 97 97 95 Oximetry 04/19/22 04/19/22 04/19/22 04:00 04:01 05:01 Temperature 99.9 F H Pulse Rate 127 H 128 H Pulse Rate [ 123 H From Monitor] Respiratory 18 24 23 Rate Blood Pressure 143/77 136/76 O2 Sat by Pulse 97 96 96 Oximetry 04/19/22 04/19/22 04/19/22 06:01 07:01 09:00 Temperature Pulse Rate 127 H 126 H 126 H Pulse Rate [ From Monitor] Respiratory 25 H 21 Rate Blood Pressure 153/78 138/81 161/78 O2 Sat by Pulse 95 96 97 Oximetry - Lab 04/19/22 04:00 04/19/22 04:00 Most recent lab results ABG pH 7.318 pH Units (7.350-7.450) L 04/16/22 02:35 ABG pCO2 55.4 mm Hg 04/16/22 02:35 ABG pO2 71.1 mm Hg (80.0-90.0) L 04/16/22 02:35 ABG HCO3 27.7 mmol/L (20.0-26.0) H 04/16/22 02:35 ABG O2 Saturation 94.8 % (95.0-99.0) L 04/16/22 02:35 Calcium 8.9 mg/dL (8.4-10.2) 04/19/22 04:00 Phosphorus 3.60 mg/dL (2.5-4.5) 04/14/22 07:28 Magnesium 2.90 mg/dL (1.7-2.3) H 04/14/22 07:28 Urine Creatinine 160.5 mg/dL (0.1-20.0) H 04/11/22 11:23 Urine Sodium 17 mmol/L 04/10/22 14:50 Urine Total Protein 172 mg/dL (5-11.8) H 04/10/22 14:50 Medications & Allergies - Medications Allergies/Adverse Reactions: Allergies No Known Allergies Allergy (Verified 04/09/22 13:44) Active Medications: Generic Name Dose Route Start Last Admin Trade Name Freq PRN Reason Stop Dose Admin Acetaminophen 650 mg 04/09/22 18:11 Acetaminophen 325 Mg Tab PO Q4H PRN Pain MILD(1-3)/Fever >100.5/CARCAMO Dextrose 0 ml 04/10/22 00:40 Dextrose 50% In Water (25gm) 50 Ml Syringe IV Q30MIN PRN Hypoglycemia Protocol Famotidine 10 mg 04/14/22 10:00 04/19/22 10:00 Famotidine 10 Mg Tab FEEDTUBE Not Given BID JO ANN Fentanyl 50 mcg 04/15/22 09:25 Fentanyl 100 Mcg/2 Ml Inj IV Q10MIN PRN ANALGESIA Heparin Sodium (Porcine) 5,000 unit 04/17/22 10:00 04/19/22 10:25 Heparin 5,000 Unit/1 Ml Vial SUB-Q 5,000 unit Q12HR JO ANN Administration Fentanyl Citrate 2,000 mcg in 100 mls @ 4.155 mls/hr 04/15/22 10:00 04/19/22 03:32 Fentanyl Drip Premix IV 1 mcg/kg/hr TITR JO ANN 4.155 mls/hr Administration Protocol 1 MCG/KG/HR Cefepime HCl 2 gm in 100 mls @ 200 mls/hr 04/16/22 19:00 04/19/22 08:00 Cefepime/Ns 2 Gm/100 Ml IV 200 mls/hr Q12H JO ANN Administration Protocol Dextrose 1,000 mls @ 100 mls/hr 04/19/22 10:00 04/19/22 10:25 D5w IV 04/20/22 19:59 100 mls/hr DIRECT JO ANN Administration Insulin Glargine 30 units 04/17/22 22:00 04/19/22 00:26 Insulin Glargine 100 Units/Ml SUB-Q 30 units QHS JO ANN Administration Insulin Human Lispro 0 unit 04/18/22 12:00 04/19/22 06:33 Insulin Lispro 100 Unit/Ml SUB-Q 4 unit Q6HR JO ANN Administration Protocol Ondansetron HCl 4 mg 04/09/22 18:11 Ondansetron 4 Mg/2 Ml Inj IV Q8H PRN Nausea And Vomiting Senna/Docusate Sodium 2 tab 04/15/22 14:00 04/19/22 10:00 Sennosides/Docusate Sodium 8.6/50 Mg Tab FEEDTUBE Not Given BID JO ANN Sodium Chloride 10 ml 04/09/22 22:00 04/19/22 10:25 Sodium Chloride 0.9% 10 Ml Flush Syringe IV 10 ml BID JO ANN Administration Sodium Chloride 10 ml 04/09/22 18:11 Sodium Chloride 0.9% 10 Ml Flush Syringe IV PRN PRN LINE FLUSH
--- NOTE | 2022-04-19 11:23 | Progress Note ---
Assessment and Plan Assessment and Plan # Acute encephalopathy, myoclonic jerks -possibly multi-factorial in part related to infection/encephalitis -CT brain is unremarkable - Brain MRI unremarkable -EEG is with 4-6 Hz no epileptiform discharges is noted -Avoid sedation as possible -continue to mnoitor -inflammation markers improved -COVID-19 Positive # NAD -Blood pressure monitoring per protocol -s/p vasopressor support with Levophed, dobutamine, vasopressin -MAP goal greater than 65 -Echocardiogram shows LVEF 55 to 60%, normal bivalve function, mildly dilated right ventricle # Acute hypoxic respiratory failure, ARDS -CCM consulted, appreciate recommendations -Intubated in the emergency department 04/09 with 7.00 ETT at 22 the lips -A.m. vent settings: Assist-control rate 20, tidal volume 400, PEEP 10, FiO2 55% -See RT notes for titration -A.m. ABG and CXR noted -VAP bundle -SPO2 monitoring # Transaminitis -24 hours +1080 ml -PPI -NTR consult for tube feedings -FWF 250 ml q4 -BR: [place] S -Trend LFTs # Acute kidney injury likely secondary to ischemic acute tubular necrosis, hypernatremia -Improved # Septic shock secondary to COVID-19 pneumonia, lactic acidosis -Infectious disease consulted, appreciate recommendations -Admit CXR showed bilateral air space opacities -Covid 19 PCR (+) -Antibiotic therapy with Rocephin (04/11-04/15) and vancomycin (04/11-04/14) -Decadron 8 mg daily for 10 days (04/09-04/18) -Per ID: Due to renal failure, not a candidate for remdesivir -S/p Actemra 04/10 -Contact/droplet precautions -f/u blood culture -Monitor WBC and temperature curve -Trend COVID-19 inflammatory markers #s/p DKA, h/o DM -S/p insulin drip -Avoid hypoglycemia -SSI and long-acting insulin, titrate as needed -Accu-Cheks every 6 # Leukocytosis, elevated Ddimer -BLE dopplar US shows no DVT -Trend CBC -Transfuse hemoglobin less than 7 -Lovenox subcu -Monitor for signs of bleeding -SCDs to BLE while in bed PLAN 1- Mantain as above 2- slight improvement in mental status --respond to voice ,not follow commands 3- MRI brain is noted 4- Avoid sedations 5- Pt therapy rang of motion 6- day light exposure 7- Treat underlying hyper-natremia 8- Prognosis is quarded . will follow Subjective Date of service: 04/19/22 Principal diagnosis: encephalopathy Interval history: Off sedation X2 days she is slightly more interactive today move to voice when calling her name , not follow commands, with draw to sternal rub by moving both upper and to lesser extent lower extremities MRI brain is noted Unremarkable OFF decadron Leukocyres is better #22.2--19.6--18.2 Hypernatremia NA#149--156 --160 today DD#[id number] improved ferritin#570 CRP#0.8 Objective - Vital Sign Vital Signs - 12hr 04/19/22 04/19/22 04/19/22 00:00 00:01 00:02 Temperature 98.9 F Pulse Rate 127 H 126 H Pulse Rate [ 123 H From Monitor] Respiratory 18 20 Rate Blood Pressure 139/71 139/71 O2 Sat by Pulse 97 96 96 Oximetry 04/19/22 04/19/22 04/19/22 01:01 02:01 03:01 Temperature Pulse Rate 125 H 124 H 124 H Pulse Rate [ From Monitor] Respiratory 21 23 22 Rate Blood Pressure 115/76 131/71 141/72 O2 Sat by Pulse 96 97 97 Oximetry 04/19/22 04/19/22 04/19/22 03:57 04:00 04:01 Temperature 99.9 F H Pulse Rate 125 H 127 H Pulse Rate [ 123 H From Monitor] Respiratory 18 24 Rate Blood Pressure 143/77 143/77 O2 Sat by Pulse 95 97 96 Oximetry 04/19/22 04/19/22 04/19/22 05:01 06:01 07:01 Temperature Pulse Rate 128 H 127 H 126 H Pulse Rate [ From Monitor] Respiratory 23 25 H 21 Rate Blood Pressure 136/76 153/78 138/81 O2 Sat by Pulse 96 95 96 Oximetry 04/19/22 04/19/22 04/19/22 08:01 09:00 09:01 Temperature Pulse Rate 129 H 126 H 126 H Pulse Rate [ From Monitor] Respiratory 22 24 Rate Blood Pressure 123/81 161/78 161/78 O2 Sat by Pulse 96 97 97 Oximetry 04/19/22 10:01 Temperature Pulse Rate 126 H Pulse Rate [ From Monitor] Respiratory 17 Rate Blood Pressure 157/73 O2 Sat by Pulse 98 Oximetry - General Apperance Constitutional: comfortable - EENT EENT: PERRL, mucous membranes moist - Respiratory Respiratory: lungs clear, rhonchi - Cardiovascular Cardiovascular: regular rate, normal S1, normal S2 Extremities: no peripheral edema bilat - Gastrointestinal Gastrointestinal: normoactive bowel sounds - Integumentary Integumentary: normal - Neurologic Cranial nerve examination: PERRL, EOMI Detailed motor examination: other (withdrawal upper to pain , no lower movment ) - Laboratory Findings CBC and BMP: 04/19/22 04:00 04/19/22 04:00 Abnormal Lab Findings: Abnormal Labs 04/09/22 04/09/22 04/09/22 11:59 12:52 12:52 WBC RBC Hgb Hct RDW 15.3 H Lymph % (Auto) 8.4 L Lymph # (Auto) 0.7 L Seg Neutrophils % 84.6 H Seg Neuts % (Manual) Lymphocytes % (Manual) Seg Neutrophils # Seg Neutrophils # Man Lymphocytes # (Manual) D-Dimer ABG pH ABG pO2 ABG HCO3 ABG O2 Saturation ABG Base Excess ABG Hemoglobin VBG pH Oxyhemoglobin Sodium Potassium Chloride 112.7 H Carbon Dioxide 18 L BUN Creatinine 2.0 H Glucose 204 H POC Glucose 203 H Lactic Acid Calcium Phosphorus Magnesium Ferritin Total Bilirubin 1.30 H Direct Bilirubin AST 47 H ALT Ammonia Lactate Dehydrogenase C-Reactive Protein Total Protein Albumin Urine Creatinine Urine Total Protein Coronavirus (PCR) 04/09/22 04/09/22 04/09/22 12:52 12:52 13:02 WBC RBC Hgb Hct RDW Lymph % (Auto) Lymph # (Auto) Seg Neutrophils % Seg Neuts % (Manual) Lymphocytes % (Manual) Seg Neutrophils # Seg Neutrophils # Man Lymphocytes # (Manual) D-Dimer ABG pH ABG pO2 ABG HCO3 ABG O2 Saturation ABG Base Excess ABG Hemoglobin VBG pH 7.303 L Oxyhemoglobin Sodium Potassium Chloride Carbon Dioxide BUN Creatinine Glucose POC Glucose Lactic Acid Calcium Phosphorus Magnesium Ferritin Total Bilirubin Direct Bilirubin AST ALT Ammonia 20.0 L Lactate Dehydrogenase C-Reactive Protein Total Protein Albumin Urine Creatinine Urine Total Protein Coronavirus (PCR) Positive A 04/09/22 04/09/22 04/09/22 15:49 22:15 22:58 WBC RBC Hgb Hct RDW Lymph % (Auto) Lymph # (Auto) Seg Neutrophils % Seg Neuts % (Manual) Lymphocytes % (Manual) Seg Neutrophils # Seg Neutrophils # Man Lymphocytes # (Manual) D-Dimer ABG pH 7.097 L* ABG pO2 188.8 H ABG HCO3 7.4 L ABG O2 Saturation 99.1 H ABG Base Excess -20.7 L ABG Hemoglobin VBG pH Oxyhemoglobin Sodium Potassium Chloride 108.8 H Carbon Dioxide 10 L D BUN 20 H Creatinine 2.6 H Glucose 465 H POC Glucose Lactic Acid 2.70 H* Calcium 7.4 L Phosphorus Magnesium Ferritin Total Bilirubin Direct Bilirubin AST ALT Ammonia Lactate Dehydrogenase C-Reactive Protein Total Protein Albumin Urine Creatinine Urine Total Protein Coronavirus (PCR) 04/09/22 04/09/22 04/10/22 23:19 Unknown 00:03 WBC RBC Hgb Hct RDW Lymph % (Auto) Lymph # (Auto) Seg Neutrophils % Seg Neuts % (Manual) Lymphocytes % (Manual) Seg Neutrophils # Seg Neutrophils # Man Lymphocytes # (Manual) D-Dimer ABG pH ABG pO2 ABG HCO3 ABG O2 Saturation ABG Base Excess ABG Hemoglobin VBG pH Oxyhemoglobin Sodium Potassium Chloride Carbon Dioxide BUN Creatinine Glucose POC Glucose 356 H Lactic Acid 7.50 H* 6.10 H* Calcium Phosphorus Magnesium Ferritin Total Bilirubin Direct Bilirubin AST ALT Ammonia Lactate Dehydrogenase C-Reactive Protein Total Protein Albumin Urine Creatinine Urine Total Protein Coronavirus (PCR) 04/10/22 04/10/22 04/10/22 02:16 03:03 04:00 WBC RBC Hgb Hct RDW Lymph % (Auto) Lymph # (Auto) Seg Neutrophils % Seg Neuts % (Manual) Lymphocytes % (Manual) Seg Neutrophils # Seg Neutrophils # Man Lymphocytes # (Manual) D-Dimer ABG pH ABG pO2 ABG HCO3 ABG O2 Saturation ABG Base Excess ABG Hemoglobin VBG pH Oxyhemoglobin Sodium Potassium Chloride Carbon Dioxide BUN Creatinine Glucose POC Glucose 317 H 325 H 308 H Lactic Acid Calcium Phosphorus Magnesium Ferritin Total Bilirubin Direct Bilirubin AST ALT Ammonia Lactate Dehydrogenase C-Reactive Protein Total Protein Albumin Urine Creatinine Urine Total Protein Coronavirus (PCR) 04/10/22 04/10/22 04/10/22 04:24 04:24 04:24 WBC 16.4 H RBC Hgb Hct RDW 16.2 H Lymph % (Auto) Lymph # (Auto) Seg Neutrophils % Seg Neuts % (Manual) 94.0 H Lymphocytes % (Manual) 3.0 L Seg Neutrophils # Seg Neutrophils # Man 15.4 H Lymphocytes # (Manual) 0.5 L D-Dimer ABG pH ABG pO2 ABG HCO3 ABG O2 Saturation ABG Base Excess ABG Hemoglobin VBG pH Oxyhemoglobin Sodium Potassium 2.9 L* D Chloride 116.1 H Carbon Dioxide 11 L BUN 19 H Creatinine 2.5 H Glucose 376 H POC Glucose Lactic Acid Calcium 6.5 L Phosphorus 1.40 L Magnesium 1.60 L Ferritin Total Bilirubin Direct Bilirubin AST 107 H ALT 64 H Ammonia Lactate Dehydrogenase C-Reactive Protein Total Protein 5.5 L Albumin 2.8 L Urine Creatinine Urine Total Protein Coronavirus (PCR) 04/10/22 04/10/22 04/10/22 04:25 05:17 06:00 WBC RBC Hgb Hct RDW Lymph % (Auto) Lymph # (Auto) Seg Neutrophils % Seg Neuts % (Manual) Lymphocytes % (Manual) Seg Neutrophils # Seg Neutrophils # Man Lymphocytes # (Manual) D-Dimer ABG pH 7.095 L* ABG pO2 112.3 H ABG HCO3 8.7 L ABG O2 Saturation ABG Base Excess -19.7 L ABG Hemoglobin VBG pH Oxyhemoglobin Sodium Potassium Chloride Carbon Dioxide BUN Creatinine Glucose POC Glucose 343 H 278 H Lactic Acid Calcium Phosphorus Magnesium Ferritin Total Bilirubin Direct Bilirubin AST ALT Ammonia Lactate Dehydrogenase C-Reactive Protein Total Protein Albumin Urine Creatinine Urine Total Protein Coronavirus (PCR) 04/10/22 04/10/22 04/10/22 06:53 07:54 08:58 WBC RBC Hgb Hct RDW Lymph % (Auto) Lymph # (Auto) Seg Neutrophils % Seg Neuts % (Manual) Lymphocytes % (Manual) Seg Neutrophils # Seg Neutrophils # Man Lymphocytes # (Manual) D-Dimer ABG pH ABG pO2 ABG HCO3 ABG O2 Saturation ABG Base Excess ABG Hemoglobin VBG pH Oxyhemoglobin Sodium Potassium Chloride Carbon Dioxide BUN Creatinine Glucose POC Glucose 262 H 245 H 215 H Lactic Acid Calcium Phosphorus Magnesium Ferritin Total Bilirubin Direct Bilirubin AST ALT Ammonia Lactate Dehydrogenase C-Reactive Protein Total Protein Albumin Urine Creatinine Urine Total Protein Coronavirus (PCR) 04/10/22 04/10/22 04/10/22 10:12 10:51 11:47 WBC RBC Hgb Hct RDW Lymph % (Auto) Lymph # (Auto) Seg Neutrophils % Seg Neuts % (Manual) Lymphocytes % (Manual) Seg Neutrophils # Seg Neutrophils # Man Lymphocytes # (Manual) D-Dimer ABG pH ABG pO2 ABG HCO3 ABG O2 Saturation ABG Base Excess ABG Hemoglobin VBG pH Oxyhemoglobin Sodium 148 H Potassium 3.4 L Chloride 116.7 H Carbon Dioxide 15 L BUN 22 H Creatinine 2.7 H Glucose 190 H POC Glucose 206 H 176 H Lactic Acid Calcium 6.9 L Phosphorus Magnesium Ferritin Total Bilirubin Direct Bilirubin AST ALT Ammonia Lactate Dehydrogenase C-Reactive Protein Total Protein Albumin Urine Creatinine Urine Total Protein Coronavirus (PCR) 04/10/22 04/10/22 04/10/22 11:47 11:47 12:02 WBC RBC Hgb Hct RDW Lymph % (Auto) Lymph # (Auto) Seg Neutrophils % Seg Neuts % (Manual) Lymphocytes % (Manual) Seg Neutrophils # Seg Neutrophils # Man Lymphocytes # (Manual) D-Dimer ABG pH ABG pO2 ABG HCO3 ABG O2 Saturation ABG Base Excess ABG Hemoglobin VBG pH Oxyhemoglobin Sodium Potassium Chloride Carbon Dioxide BUN Creatinine Glucose POC Glucose 178 H Lactic Acid Calcium Phosphorus Magnesium Ferritin 1218.0 H Total Bilirubin Direct Bilirubin AST ALT Ammonia Lactate Dehydrogenase 482 H C-Reactive Protein 11.30 H Total Protein Albumin Urine Creatinine Urine Total Protein Coronavirus (PCR) 04/10/22 04/10/22 04/10/22 13:13 13:58 14:50 WBC RBC Hgb Hct RDW Lymph % (Auto) Lymph # (Auto) Seg Neutrophils % Seg Neuts % (Manual) Lymphocytes % (Manual) Seg Neutrophils # Seg Neutrophils # Man Lymphocytes # (Manual) D-Dimer ABG pH ABG pO2 ABG HCO3 ABG O2 Saturation ABG Base Excess ABG Hemoglobin VBG pH Oxyhemoglobin Sodium Potassium Chloride Carbon Dioxide BUN Creatinine Glucose POC Glucose 160 H 150 H Lactic Acid Calcium Phosphorus Magnesium Ferritin Total Bilirubin Direct Bilirubin AST ALT Ammonia Lactate Dehydrogenase C-Reactive Protein Total Protein Albumin Urine Creatinine 224.2 H Urine Total Protein 172 H Coronavirus (PCR) 04/10/22 04/10/22 04/10/22 15:24 16:38 16:56 WBC RBC Hgb Hct RDW Lymph % (Auto) Lymph # (Auto) Seg Neutrophils % Seg Neuts % (Manual) Lymphocytes % (Manual) Seg Neutrophils # Seg Neutrophils # Man Lymphocytes # (Manual) D-Dimer ABG pH ABG pO2 ABG HCO3 ABG O2 Saturation ABG Base Excess ABG Hemoglobin VBG pH Oxyhemoglobin Sodium Potassium Chloride Carbon Dioxide BUN Creatinine Glucose POC Glucose 140 H 154 H 149 H Lactic Acid Calcium Phosphorus Magnesium Ferritin Total Bilirubin Direct Bilirubin AST ALT Ammonia Lactate Dehydrogenase C-Reactive Protein Total Protein Albumin Urine Creatinine Urine Total Protein Coronavirus (PCR) 04/10/22 04/10/22 04/10/22 18:21 19:21 20:02 WBC RBC Hgb Hct RDW Lymph % (Auto) Lymph # (Auto) Seg Neutrophils % Seg Neuts % (Manual) Lymphocytes % (Manual) Seg Neutrophils # Seg Neutrophils # Man Lymphocytes # (Manual) D-Dimer ABG pH ABG pO2 ABG HCO3 ABG O2 Saturation ABG Base Excess ABG Hemoglobin VBG pH Oxyhemoglobin Sodium Potassium Chloride Carbon Dioxide BUN Creatinine Glucose POC Glucose 141 H 126 H 139 H Lactic Acid Calcium Phosphorus Magnesium Ferritin Total Bilirubin Direct Bilirubin AST ALT Ammonia Lactate Dehydrogenase C-Reactive Protein Total Protein Albumin Urine Creatinine Urine Total Protein Coronavirus (PCR) 04/10/22 04/10/22 04/10/22 21:04 21:58 22:20 WBC RBC Hgb Hct RDW Lymph % (Auto) Lymph # (Auto) Seg Neutrophils % Seg Neuts % (Manual) Lymphocytes % (Manual) Seg Neutrophils # Seg Neutrophils # Man Lymphocytes # (Manual) D-Dimer ABG pH ABG pO2 ABG HCO3 ABG O2 Saturation ABG Base Excess ABG Hemoglobin VBG pH Oxyhemoglobin Sodium Potassium Chloride 114.5 H Carbon Dioxide 17 L BUN 24 H Creatinine 2.5 H Glucose 165 H POC Glucose 144 H 161 H Lactic Acid Calcium 6.5 L Phosphorus Magnesium Ferritin Total Bilirubin Direct Bilirubin AST ALT Ammonia Lactate Dehydrogenase C-Reactive Protein Total Protein Albumin Urine Creatinine Urine Total Protein Coronavirus (PCR) 04/10/22 04/11/22 04/11/22 23:02 00:08 01:05 WBC RBC Hgb Hct RDW Lymph % (Auto) Lymph # (Auto) Seg Neutrophils % Seg Neuts % (Manual) Lymphocytes % (Manual) Seg Neutrophils # Seg Neutrophils # Man Lymphocytes # (Manual) D-Dimer ABG pH ABG pO2 ABG HCO3 ABG O2 Saturation ABG Base Excess ABG Hemoglobin VBG pH Oxyhemoglobin Sodium Potassium Chloride Carbon Dioxide BUN Creatinine Glucose POC Glucose 160 H 148 H 156 H Lactic Acid Calcium Phosphorus Magnesium Ferritin Total Bilirubin Direct Bilirubin AST ALT Ammonia Lactate Dehydrogenase C-Reactive Protein Total Protein Albumin Urine Creatinine Urine Total Protein Coronavirus (PCR) 04/11/22 04/11/22 04/11/22 01:30 02:05 03:04 WBC RBC Hgb Hct RDW Lymph % (Auto) Lymph # (Auto) Seg Neutrophils % Seg Neuts % (Manual) Lymphocytes % (Manual) Seg Neutrophils # Seg Neutrophils # Man Lymphocytes # (Manual) D-Dimer ABG pH ABG pO2 75.1 L ABG HCO3 17.2 L ABG O2 Saturation ABG Base Excess -5.8 L ABG Hemoglobin 11.5 L VBG pH Oxyhemoglobin Sodium Potassium Chloride Carbon Dioxide BUN Creatinine Glucose POC Glucose 150 H 168 H Lactic Acid Calcium Phosphorus Magnesium Ferritin Total Bilirubin Direct Bilirubin AST ALT Ammonia Lactate Dehydrogenase C-Reactive Protein Total Protein Albumin Urine Creatinine Urine Total Protein Coronavirus (PCR) 04/11/22 04/11/22 04/11/22 03:58 03:58 04:05 WBC 12.2 H RBC Hgb Hct RDW 15.7 H Lymph % (Auto) Lymph # (Auto) Seg Neutrophils % Seg Neuts % (Manual) Lymphocytes % (Manual) Seg Neutrophils # Seg Neutrophils # Man Lymphocytes # (Manual) D-Dimer ABG pH ABG pO2 ABG HCO3 ABG O2 Saturation ABG Base Excess ABG Hemoglobin VBG pH Oxyhemoglobin Sodium 147 H Potassium Chloride 114.2 H Carbon Dioxide 19 L BUN 26 H Creatinine 2.5 H Glucose 154 H POC Glucose 151 H Lactic Acid Calcium 6.8 L Phosphorus Magnesium Ferritin Total Bilirubin Direct Bilirubin AST 106 H ALT 60 H Ammonia Lactate Dehydrogenase C-Reactive Protein Total Protein 5.6 L Albumin 2.7 L Urine Creatinine Urine Total Protein Coronavirus (PCR) 04/11/22 04/11/22 04/11/22 05:14 06:19 08:23 WBC RBC Hgb Hct RDW Lymph % (Auto) Lymph # (Auto) Seg Neutrophils % Seg Neuts % (Manual) Lymphocytes % (Manual) Seg Neutrophils # Seg Neutrophils # Man Lymphocytes # (Manual) D-Dimer ABG pH ABG pO2 ABG HCO3 ABG O2 Saturation ABG Base Excess ABG Hemoglobin VBG pH Oxyhemoglobin Sodium Potassium Chloride Carbon Dioxide BUN Creatinine Glucose POC Glucose 134 H 144 H 143 H Lactic Acid Calcium Phosphorus Magnesium Ferritin Total Bilirubin Direct Bilirubin AST ALT Ammonia Lactate Dehydrogenase C-Reactive Protein Total Protein Albumin Urine Creatinine Urine Total Protein Coronavirus (PCR) 04/11/22 04/11/22 04/11/22 09:28 10:06 11:23 WBC RBC Hgb Hct RDW Lymph % (Auto) Lymph # (Auto) Seg Neutrophils % Seg Neuts % (Manual) Lymphocytes % (Manual) Seg Neutrophils # Seg Neutrophils # Man Lymphocytes # (Manual) D-Dimer ABG pH ABG pO2 ABG HCO3 ABG O2 Saturation ABG Base Excess ABG Hemoglobin VBG pH Oxyhemoglobin Sodium Potassium Chloride Carbon Dioxide BUN Creatinine Glucose POC Glucose 138 H Lactic Acid Calcium Phosphorus Magnesium Ferritin Total Bilirubin Direct Bilirubin AST ALT Ammonia Lactate Dehydrogenase C-Reactive Protein Total Protein Albumin Urine Creatinine 161.8 H 160.5 H Urine Total Protein Coronavirus (PCR) 04/11/22 04/11/22 04/12/22 15:59 23:58 00:01 WBC 16.2 H RBC Hgb Hct RDW 15.8 H Lymph % (Auto) 5.7 L Lymph # (Auto) 0.9 L Seg Neutrophils % 89.6 H Seg Neuts % (Manual) Lymphocytes % (Manual) Seg Neutrophils # 14.6 H Seg Neutrophils # Man Lymphocytes # (Manual) D-Dimer ABG pH ABG pO2 ABG HCO3 ABG O2 Saturation ABG Base Excess ABG Hemoglobin VBG pH Oxyhemoglobin Sodium Potassium Chloride Carbon Dioxide BUN Creatinine Glucose POC Glucose 166 H 150 H Lactic Acid Calcium Phosphorus Magnesium Ferritin Total Bilirubin Direct Bilirubin AST ALT Ammonia Lactate Dehydrogenase C-Reactive Protein Total Protein Albumin Urine Creatinine Urine Total Protein Coronavirus (PCR) 04/12/22 04/12/22 04/12/22 03:20 04:00 04:00 WBC RBC Hgb Hct RDW Lymph % (Auto) Lymph # (Auto) Seg Neutrophils % Seg Neuts % (Manual) Lymphocytes % (Manual) Seg Neutrophils # Seg Neutrophils # Man Lymphocytes # (Manual) D-Dimer 1874.86 H ABG pH 7.513 H ABG pO2 61.7 L ABG HCO3 ABG O2 Saturation 94.2 L ABG Base Excess ABG Hemoglobin 11.5 L VBG pH Oxyhemoglobin 92.6 L Sodium Potassium Chloride Carbon Dioxide BUN Creatinine Glucose POC Glucose Lactic Acid Calcium Phosphorus Magnesium Ferritin 890.0 H Total Bilirubin Direct Bilirubin AST ALT Ammonia Lactate Dehydrogenase C-Reactive Protein Total Protein Albumin Urine Creatinine Urine Total Protein Coronavirus (PCR) 04/12/22 04/12/22 04/12/22 04:00 04:20 04:59 WBC RBC Hgb Hct RDW Lymph % (Auto) Lymph # (Auto) Seg Neutrophils % Seg Neuts % (Manual) Lymphocytes % (Manual) Seg Neutrophils # Seg Neutrophils # Man Lymphocytes # (Manual) D-Dimer ABG pH ABG pO2 ABG HCO3 ABG O2 Saturation ABG Base Excess ABG Hemoglobin VBG pH Oxyhemoglobin Sodium 146 H Potassium Chloride 108.0 H Carbon Dioxide BUN 38 H Creatinine 2.3 H Glucose 173 H POC Glucose 146 H Lactic Acid Calcium 6.7 L Phosphorus Magnesium Ferritin Total Bilirubin Direct Bilirubin AST ALT Ammonia Lactate Dehydrogenase 763 H C-Reactive Protein 14.10 H Total Protein Albumin Urine Creatinine Urine Total Protein Coronavirus (PCR) 04/12/22 04/12/22 04/12/22 06:05 10:15 11:52 WBC RBC Hgb Hct RDW Lymph % (Auto) Lymph # (Auto) Seg Neutrophils % Seg Neuts % (Manual) Lymphocytes % (Manual) Seg Neutrophils # Seg Neutrophils # Man Lymphocytes # (Manual) D-Dimer ABG pH ABG pO2 ABG HCO3 ABG O2 Saturation ABG Base Excess ABG Hemoglobin VBG pH Oxyhemoglobin Sodium Potassium Chloride Carbon Dioxide BUN Creatinine Glucose POC Glucose 190 H 122 H 125 H Lactic Acid Calcium Phosphorus Magnesium Ferritin Total Bilirubin Direct Bilirubin AST ALT Ammonia Lactate Dehydrogenase C-Reactive Protein Total Protein Albumin Urine Creatinine Urine Total Protein Coronavirus (PCR) 04/12/22 04/13/22 04/13/22 13:18 00:14 03:41 WBC RBC Hgb Hct RDW Lymph % (Auto) Lymph # (Auto) Seg Neutrophils % Seg Neuts % (Manual) Lymphocytes % (Manual) Seg Neutrophils # Seg Neutrophils # Man Lymphocytes # (Manual) D-Dimer ABG pH 7.487 H ABG pO2 62.1 L ABG HCO3 ABG O2 Saturation 93.2 L ABG Base Excess ABG Hemoglobin 11.9 L VBG pH Oxyhemoglobin 91.5 L Sodium Potassium Chloride Carbon Dioxide BUN 38 H Creatinine 2.1 H Glucose 144 H POC Glucose 208 H Lactic Acid Calcium 7.1 L Phosphorus Magnesium Ferritin Total Bilirubin Direct Bilirubin AST ALT Ammonia Lactate Dehydrogenase C-Reactive Protein Total Protein Albumin Urine Creatinine Urine Total Protein Coronavirus (PCR) 04/13/22 04/13/22 04/14/22 04:31 04:31 03:54 WBC 13.9 H RBC Hgb Hct RDW 15.7 H Lymph % (Auto) Lymph # (Auto) Seg Neutrophils % Seg Neuts % (Manual) Lymphocytes % (Manual) Seg Neutrophils # Seg Neutrophils # Man Lymphocytes # (Manual) D-Dimer ABG pH 7.487 H ABG pO2 57.8 L ABG HCO3 ABG O2 Saturation 93.9 L ABG Base Excess ABG Hemoglobin 10.0 L VBG pH Oxyhemoglobin 92.3 L Sodium Potassium Chloride Carbon Dioxide BUN 42 H Creatinine 1.9 H Glucose 204 H POC Glucose Lactic Acid Calcium 7.4 L Phosphorus Magnesium Ferritin Total Bilirubin Direct Bilirubin AST ALT Ammonia Lactate Dehydrogenase C-Reactive Protein Total Protein Albumin Urine Creatinine Urine Total Protein Coronavirus (PCR) 04/14/22 04/14/22 04/14/22 07:28 07:28 07:28 WBC RBC Hgb Hct RDW Lymph % (Auto) Lymph # (Auto) Seg Neutrophils % Seg Neuts % (Manual) Lymphocytes % (Manual) Seg Neutrophils # Seg Neutrophils # Man Lymphocytes # (Manual) D-Dimer 5586.76 H ABG pH ABG pO2 ABG HCO3 ABG O2 Saturation ABG Base Excess ABG Hemoglobin VBG pH Oxyhemoglobin Sodium Potassium Chloride Carbon Dioxide BUN Creatinine Glucose POC Glucose Lactic Acid Calcium Phosphorus Magnesium Ferritin 454.7 H Total Bilirubin Direct Bilirubin AST ALT Ammonia Lactate Dehydrogenase 1345 H C-Reactive Protein 4.80 H Total Protein Albumin Urine Creatinine Urine Total Protein Coronavirus (PCR) 04/14/22 04/14/22 04/14/22 07:28 07:28 09:26 WBC 18.6 H RBC 3.59 L Hgb Hct RDW 15.6 H Lymph % (Auto) Lymph # (Auto) Seg Neutrophils % Seg Neuts % (Manual) Lymphocytes % (Manual) Seg Neutrophils # Seg Neutrophils # Man Lymphocytes # (Manual) D-Dimer ABG pH ABG pO2 ABG HCO3 ABG O2 Saturation ABG Base Excess ABG Hemoglobin VBG pH Oxyhemoglobin Sodium 149 H Potassium Chloride 110.3 H Carbon Dioxide BUN 57 H Creatinine 2.3 H Glucose 205 H POC Glucose Lactic Acid Calcium Phosphorus Magnesium 2.90 H Ferritin Total Bilirubin Direct Bilirubin AST ALT Ammonia Lactate Dehydrogenase C-Reactive Protein Total Protein Albumin Urine Creatinine Urine Total Protein Coronavirus (PCR) 04/14/22 04/14/22 04/14/22 11:52 15:41 17:18 WBC RBC Hgb Hct RDW Lymph % (Auto) Lymph # (Auto) Seg Neutrophils % Seg Neuts % (Manual) Lymphocytes % (Manual) Seg Neutrophils # Seg Neutrophils # Man Lymphocytes # (Manual) D-Dimer ABG pH 7.506 H ABG pO2 51.0 L ABG HCO3 ABG O2 Saturation 87.3 L ABG Base Excess ABG Hemoglobin 10.6 L VBG pH Oxyhemoglobin 85.4 L Sodium Potassium Chloride Carbon Dioxide BUN Creatinine Glucose POC Glucose 173 H 187 H Lactic Acid Calcium Phosphorus Magnesium Ferritin Total Bilirubin Direct Bilirubin AST ALT Ammonia Lactate Dehydrogenase C-Reactive Protein Total Protein Albumin Urine Creatinine Urine Total Protein Coronavirus (PCR) 04/15/22 04/15/22 04/15/22 00:03 03:43 05:47 WBC RBC Hgb Hct RDW Lymph % (Auto) Lymph # (Auto) Seg Neutrophils % Seg Neuts % (Manual) Lymphocytes % (Manual) Seg Neutrophils # Seg Neutrophils # Man Lymphocytes # (Manual) D-Dimer ABG pH 7.477 H ABG pO2 59.1 L ABG HCO3 ABG O2 Saturation 90.5 L ABG Base Excess ABG Hemoglobin 9.5 L VBG pH Oxyhemoglobin 88.7 L Sodium Potassium Chloride Carbon Dioxide BUN Creatinine Glucose POC Glucose 246 H 217 H Lactic Acid Calcium Phosphorus Magnesium Ferritin Total Bilirubin Direct Bilirubin AST ALT Ammonia Lactate Dehydrogenase C-Reactive Protein Total Protein Albumin Urine Creatinine Urine Total Protein Coronavirus (PCR) 04/15/22 04/15/22 04/15/22 09:40 10:00 12:00 WBC 19.3 H RBC 3.18 L Hgb 9.3 L Hct 27.7 L RDW 15.8 H Lymph % (Auto) Lymph # (Auto) Seg Neutrophils % Seg Neuts % (Manual) Lymphocytes % (Manual) Seg Neutrophils # Seg Neutrophils # Man Lymphocytes # (Manual) D-Dimer ABG pH ABG pO2 ABG HCO3 ABG O2 Saturation ABG Base Excess ABG Hemoglobin VBG pH Oxyhemoglobin Sodium 146 H Potassium Chloride 107.9 H Carbon Dioxide BUN 76 H Creatinine 1.9 H Glucose 214 H POC Glucose Lactic Acid 2.10 H* Calcium 7.7 L Phosphorus Magnesium Ferritin Total Bilirubin Direct Bilirubin AST ALT Ammonia Lactate Dehydrogenase C-Reactive Protein Total Protein Albumin Urine Creatinine Urine Total Protein Coronavirus (PCR) 04/15/22 04/15/22 04/15/22 12:21 17:51 21:39 WBC RBC Hgb Hct RDW Lymph % (Auto) Lymph # (Auto) Seg Neutrophils % Seg Neuts % (Manual) Lymphocytes % (Manual) Seg Neutrophils # Seg Neutrophils # Man Lymphocytes # (Manual) D-Dimer ABG pH ABG pO2 ABG HCO3 ABG O2 Saturation ABG Base Excess ABG Hemoglobin VBG pH Oxyhemoglobin Sodium Potassium Chloride Carbon Dioxide BUN Creatinine Glucose POC Glucose 236 H 255 H 223 H Lactic Acid Calcium Phosphorus Magnesium Ferritin Total Bilirubin Direct Bilirubin AST ALT Ammonia Lactate Dehydrogenase C-Reactive Protein Total Protein Albumin Urine Creatinine Urine Total Protein Coronavirus (PCR) 04/16/22 04/16/22 04/16/22 00:17 02:35 04:00 WBC RBC Hgb Hct RDW Lymph % (Auto) Lymph # (Auto) Seg Neutrophils % Seg Neuts % (Manual) Lymphocytes % (Manual) Seg Neutrophils # Seg Neutrophils # Man Lymphocytes # (Manual) D-Dimer ABG pH 7.318 L ABG pO2 71.1 L ABG HCO3 27.7 H ABG O2 Saturation 94.8 L ABG Base Excess ABG Hemoglobin 10.3 L VBG pH Oxyhemoglobin 92.9 L Sodium Potassium Chloride Carbon Dioxide BUN Creatinine Glucose POC Glucose 201 H Lactic Acid Calcium Phosphorus Magnesium Ferritin 446.2 H Total Bilirubin Direct Bilirubin AST ALT Ammonia Lactate Dehydrogenase C-Reactive Protein Total Protein Albumin Urine Creatinine Urine Total Protein Coronavirus (PCR) 04/16/22 04/16/22 04/16/22 04:00 06:00 Unknown WBC RBC Hgb Hct RDW Lymph % (Auto) Lymph # (Auto) Seg Neutrophils % Seg Neuts % (Manual) Lymphocytes % (Manual) Seg Neutrophils # Seg Neutrophils # Man Lymphocytes # (Manual) D-Dimer 3886.80 H ABG pH ABG pO2 ABG HCO3 ABG O2 Saturation ABG Base Excess ABG Hemoglobin VBG pH Oxyhemoglobin Sodium 148 H Potassium Chloride 109.9 H Carbon Dioxide BUN 84 H Creatinine 1.7 H Glucose 276 H POC Glucose Lactic Acid Calcium Phosphorus Magnesium Ferritin Total Bilirubin Direct Bilirubin 0.5 H AST 69 H ALT 120 H Ammonia Lactate Dehydrogenase 1467 H C-Reactive Protein 1.90 H Total Protein 5.9 L Albumin 3.5 L Urine Creatinine Urine Total Protein Coronavirus (PCR) 04/16/22 04/17/22 04/17/22 Unknown 05:12 05:12 WBC 25.2 H 22.2 H RBC 3.50 L Hgb Hct RDW 15.8 H 15.8 H Lymph % (Auto) Lymph # (Auto) Seg Neutrophils % Seg Neuts % (Manual) Lymphocytes % (Manual) Seg Neutrophils # Seg Neutrophils # Man Lymphocytes # (Manual) D-Dimer 3804.33 H ABG pH ABG pO2 ABG HCO3 ABG O2 Saturation ABG Base Excess ABG Hemoglobin VBG pH Oxyhemoglobin Sodium Potassium Chloride Carbon Dioxide BUN Creatinine Glucose POC Glucose Lactic Acid Calcium Phosphorus Magnesium Ferritin Total Bilirubin Direct Bilirubin AST ALT Ammonia Lactate Dehydrogenase C-Reactive Protein Total Protein Albumin Urine Creatinine Urine Total Protein Coronavirus (PCR) 04/17/22 04/17/22 04/17/22 05:12 17:27 20:04 WBC RBC Hgb Hct RDW Lymph % (Auto) Lymph # (Auto) Seg Neutrophils % Seg Neuts % (Manual) Lymphocytes % (Manual) Seg Neutrophils # Seg Neutrophils # Man Lymphocytes # (Manual) D-Dimer ABG pH ABG pO2 ABG HCO3 ABG O2 Saturation ABG Base Excess ABG Hemoglobin VBG pH Oxyhemoglobin Sodium 149 H Potassium 5.3 H Chloride 109.4 H Carbon Dioxide BUN 80 H Creatinine 1.5 H Glucose 320 H POC Glucose 308 H 301 H Lactic Acid Calcium Phosphorus Magnesium Ferritin Total Bilirubin Direct Bilirubin AST 171 H ALT 231 H Ammonia Lactate Dehydrogenase C-Reactive Protein Total Protein 5.4 L Albumin 3.7 L Urine Creatinine Urine Total Protein Coronavirus (PCR) 04/18/22 04/18/22 04/18/22 01:55 05:41 05:41 WBC RBC Hgb Hct RDW Lymph % (Auto) Lymph # (Auto) Seg Neutrophils % Seg Neuts % (Manual) Lymphocytes % (Manual) Seg Neutrophils # Seg Neutrophils # Man Lymphocytes # (Manual) D-Dimer ABG pH ABG pO2 ABG HCO3 ABG O2 Saturation ABG Base Excess ABG Hemoglobin VBG pH Oxyhemoglobin Sodium 156 H Potassium Chloride 117.8 H Carbon Dioxide BUN 69 H Creatinine 1.3 H Glucose 231 H POC Glucose 301 H Lactic Acid Calcium 8.3 L Phosphorus Magnesium Ferritin 570.8 H Total Bilirubin Direct Bilirubin AST ALT Ammonia Lactate Dehydrogenase 1473 H C-Reactive Protein Total Protein Albumin Urine Creatinine Urine Total Protein Coronavirus (PCR) 04/18/22 04/18/22 04/18/22 05:41 06:09 10:35 WBC 19.6 H RBC 3.38 L Hgb 9.7 L Hct 29.5 L RDW 15.9 H Lymph % (Auto) Lymph # (Auto) Seg Neutrophils % Seg Neuts % (Manual) Lymphocytes % (Manual) Seg Neutrophils # Seg Neutrophils # Man Lymphocytes # (Manual) D-Dimer ABG pH ABG pO2 ABG HCO3 ABG O2 Saturation ABG Base Excess ABG Hemoglobin VBG pH Oxyhemoglobin Sodium 156 H Potassium Chloride 118.2 H Carbon Dioxide 32 H BUN 66 H Creatinine 1.3 H Glucose 179 H POC Glucose 210 H Lactic Acid Calcium 8.3 L Phosphorus Magnesium Ferritin Total Bilirubin Direct Bilirubin AST 91 H ALT 234 H Ammonia Lactate Dehydrogenase C-Reactive Protein Total Protein 5.3 L Albumin 3.4 L Urine Creatinine Urine Total Protein Coronavirus (PCR) 04/18/22 04/18/22 04/19/22 11:57 23:36 03:21 WBC RBC Hgb Hct RDW Lymph % (Auto) Lymph # (Auto) Seg Neutrophils % Seg Neuts % (Manual) Lymphocytes % (Manual) Seg Neutrophils # Seg Neutrophils # Man Lymphocytes # (Manual) D-Dimer ABG pH ABG pO2 ABG HCO3 ABG O2 Saturation ABG Base Excess ABG Hemoglobin VBG pH Oxyhemoglobin Sodium Potassium Chloride Carbon Dioxide BUN Creatinine Glucose POC Glucose 161 H 209 H 184 H Lactic Acid Calcium Phosphorus Magnesium Ferritin Total Bilirubin Direct Bilirubin AST ALT Ammonia Lactate Dehydrogenase C-Reactive Protein Total Protein Albumin Urine Creatinine Urine Total Protein Coronavirus (PCR) 04/19/22 04/19/22 04/19/22 04:00 04:00 05:58 WBC 18.2 H RBC Hgb Hct RDW 15.7 H Lymph % (Auto) Lymph # (Auto) Seg Neutrophils % Seg Neuts % (Manual) Lymphocytes % (Manual) Seg Neutrophils # Seg Neutrophils # Man Lymphocytes # (Manual) D-Dimer ABG pH ABG pO2 ABG HCO3 ABG O2 Saturation ABG Base Excess ABG Hemoglobin VBG pH Oxyhemoglobin Sodium 160 H Potassium Chloride 119.7 H Carbon Dioxide 31 H BUN 60 H Creatinine 1.3 H Glucose 213 H POC Glucose 207 H Lactic Acid Calcium Phosphorus Magnesium Ferritin Total Bilirubin Direct Bilirubin AST 77 H ALT 208 H Ammonia Lactate Dehydrogenase C-Reactive Protein Total Protein 5.8 L Albumin 3.5 L Urine Creatinine Urine Total Protein Coronavirus (PCR)
--- NOTE | 2022-04-19 15:28 | Progress Note ---
Assessment and Plan Cultures: SARS CoV2 PCR: Positive Influenza PCR: Negative 04/09/2022 blood culture: no growth. 04/09/2022 resp culture: Usual respiratory catherine A/P: 77-year-old female with diabetes, history of ovarian cancer believed to be in remission was admitted with altered mental status: #Septic shock, probably secondary to severe COVID-19. ABG showed severe acidosis. UA without pyuria. Chest x-ray showed bilateral airspace opacities. Off pressors now. #Bilateral pneumonia: Secondary to COVID-19. Unvaccinated. Actemra administered 04/10/2022. CRP 11.3, procalcitonin 3.3, ferritin 1218, LDH 482. #Acute hypoxic respiratory failure: Requiring mechanical ventilation. #ASHLEY: Renally adjust antibiotics. #Transaminitis #Acute encephalopathy: Neurology following. Recs: -IV/PO Dexamethasone x 10 days -Due to renal failure, not a candidate for Remdesivir -S/p Actemra 04/10/2022 -prophylactic anticoagulation based on d-dimer per hospital protocol -Afebrile, white count remains elevated. Continue cefepime -Check new blood and respiratory cultures -trend ferritin, d-dimer, CRP every 2-3 days -Guarded prognosis Laura Sahu MD [facility] ([facility] O: [phone] F: [phone] Subjective Date of service: 04/19/22 Principal diagnosis: encephalopathy Interval history: Afebrile, white count stable Objective - Exam Narrative Exam: Physical Exam: Constitutional: sedated, intubated, on the vent Head, Ears, Nose: Normocephalic, atraumatic. External ears, nose normal Eyes: Conjunctivae/corneas clear. No icterus. No ptosis. Neck: intubated Oral: intubated Cardiovascular: S1, S2 + Respiratory: AE fair bilaterally and equal GI: Soft, bowel sounds + Musculoskeletal: No pedal edema, no cyanosis. Skin: No rash or abscess Hem/Lymphatic: No palpable cervical or supraclavicular nodes. Psych: no agitation Neurological: sedated, intubated, on the vent, exam limited - Constitutional Vitals: Vital Signs Temp Pulse Resp BP Pulse Ox 98.8 F 113 H 18 140/77 98 04/19/22 12:00 04/19/22 15:01 04/19/22 15:01 04/19/22 15:01 04/19/22 15:01 Temperature -Last 24 Hours Temperature 98.8 F Temperature 99 F Temperature 99.9 F Temperature 98.9 F Temperature 99.0 F Temperature 98 F - Labs CBC & Chem 7: 04/19/22 04:00 04/19/22 04:00 Labs: Abnormal lab results 04/18/22 04/18/22 04/19/22 Range/Units 11:57 23:36 03:21 WBC (4.5-11.0) K/mm3 RDW (13.2-15.2) % Sodium (137-145) mmol/L Chloride (98-107) mmol/L Carbon Dioxide (22-30) mmol/L BUN (7-17) mg/dL Creatinine (0.6-1.2) mg/dL Glucose (65-100) mg/dL POC Glucose 161 H 209 H 184 H (70-105) mg/dL AST (5-40) units/L ALT (7-56) units/L Total Protein (6.3-8.2) g/dL Albumin (3.9-5) g/dL 04/19/22 04/19/22 04/19/22 Range/Units 04:00 04:00 05:58 WBC 18.2 H (4.5-11.0) K/mm3 RDW 15.7 H (13.2-15.2) % Sodium 160 H (137-145) mmol/L Chloride 119.7 H (98-107) mmol/L Carbon Dioxide 31 H (22-30) mmol/L BUN 60 H (7-17) mg/dL Creatinine 1.3 H (0.6-1.2) mg/dL Glucose 213 H (65-100) mg/dL POC Glucose 207 H (70-105) mg/dL AST 77 H (5-40) units/L ALT 208 H (7-56) units/L Total Protein 5.8 L (6.3-8.2) g/dL Albumin 3.5 L (3.9-5) g/dL 04/19/22 Range/Units 11:25 WBC (4.5-11.0) K/mm3 RDW (13.2-15.2) % Sodium (137-145) mmol/L Chloride (98-107) mmol/L Carbon Dioxide (22-30) mmol/L BUN (7-17) mg/dL Creatinine (0.6-1.2) mg/dL Glucose (65-100) mg/dL POC Glucose 137 H (70-105) mg/dL AST (5-40) units/L ALT (7-56) units/L Total Protein (6.3-8.2) g/dL Albumin (3.9-5) g/dL
[2022-04-19] MEDS ORDERED: INSULIN GLARGINE 100 UNITS/ML SUB-Q SCH (16:18)
[2022-04-19 22:57] LABS: Creatinine,Urine 28.3 mg/dL (0.1-20.0)
[2022-04-20] MEDS: FREE WATER PO SCH ×7 (01:08→22:00)
[2022-04-20] MEDS: DEXTROSE 5% IN WATER 1,000 ML IV SCH (01:08)
[2022-04-20] MEDS: INSULIN LISPRO 100 UNIT/ML SUB-Q SCH ×4 (01:22→17:42)
[2022-04-20 04:20] LABS: ABG Base Excess 5.7 mmol/L (-2.0-3.0); ABG HCO3 31.9 mmol/L (20.0-26.0); ABG Methemoglobin 0.6 % (0.0-1.5); ABG Oxygen Saturation 96.8 % (95.0-99.0); ABG PCO2 55.3 mm Hg; ABG PH 7.379 pH Units (7.350-7.450)
[2022-04-20 08:00] LABS: Hematocrit 32.6 % (30.3-42.9); Hemoglobin 10.6 gm/dl (10.1-14.3); Mean Corpuscular HGB Conc 33 % (30-34); Mean Corpuscular Volume 91 fl (79-97); Platelet Count 130 K/mm3 (140-440); Red Blood Count 3.58 M/mm3 (3.65-5.03); Red Cell Distribution Width 16.4 % (13.2-15.2)
[2022-04-20] MEDS: CEFEPIME/NS 2 GM/100 ML 2 GM/100 ML BAG IV SCH ×2 (08:00→19:39)
[2022-04-20 08:08] LABS: Calcium 8.4 mg/dL (8.4-10.2)
[2022-04-20] MEDS: FAMOTIDINE 10 MG TAB FEEDTUBE SCH ×2 (09:20→22:05)
[2022-04-20] MEDS: HEPARIN 5,000 UNIT/1 ML VIAL SUB-Q SCH ×2 (09:20→22:04)
--- NOTE | 2022-04-20 10:06 | Progress Note ---
Assessment and Plan Assessment and Plan # Acute encephalopathy, myoclonic jerks -possibly multi-factorial in part related to infection/encephalitis -CT brain is unremarkable - Brain MRI unremarkable -EEG is with 4-6 Hz no epileptiform discharges is noted -Avoid sedation as possible -continue to mnoitor -inflammation markers improved but clinically no significant improvement and today she is slightly worse -COVID-19 Positive -Over all prognosis is quarded to poor -Consider repeat MRI brain By friday with gd if she is no better # Hypernatremia -Correct 160--156 # NAD -Blood pressure monitoring per protocol -s/p vasopressor support with Levophed, dobutamine, vasopressin -MAP goal greater than 65 -Echocardiogram shows LVEF 55 to 60%, normal bivalve function, mildly dilated right ventricle # Acute hypoxic respiratory failure, ARDS -CCM consulted, appreciate recommendations -Intubated in the emergency department 04/09 with 7.00 ETT at 22 the lips -A.m. vent settings: Assist-control rate 20, tidal volume 400, PEEP 10, FiO2 55% -See RT notes for titration -A.m. ABG and CXR noted -VAP bundle -SPO2 monitoring # Transaminitis -24 hours +1080 ml -PPI -NTR consult for tube feedings -FWF 250 ml q4 -BR: [place] S -Trend LFTs # Acute kidney injury likely secondary to ischemic acute tubular necrosis, hypernatremia -Improved # Septic shock secondary to COVID-19 pneumonia, lactic acidosis -Infectious disease consulted, appreciate recommendations -Admit CXR showed bilateral air space opacities -Covid 19 PCR (+) -Antibiotic therapy with Rocephin (04/11-04/15) and vancomycin (04/11-04/14) -Decadron 8 mg daily for 10 days (04/09-04/18) -Per ID: Due to renal failure, not a candidate for remdesivir -S/p Actemra 04/10 -Contact/droplet precautions -f/u blood culture -Monitor WBC and temperature curve -Trend COVID-19 inflammatory markers #s/p DKA, h/o DM -S/p insulin drip -Avoid hypoglycemia -SSI and long-acting insulin, titrate as needed -Accu-Cheks every 6 # Leukocytosis, elevated Ddimer -BLE dopplar US shows no DVT -Trend CBC -Transfuse hemoglobin less than 7 -Lovenox subcu -Monitor for signs of bleeding -SCDs to BLE while in bed PLAN 1- Mantain as above 2- worsened mentation 3- Inflammatory markers are better 4-NA#156 today 5- Consider Repeat MRI brain by Friday with gd if she is no better 6- Renal function improved will follow Subjective Date of service: 04/20/22 Principal diagnosis: encephalopathy Interval history: Off sedation X4 days she is worse today not moving upper or lower , eyes open she star ,not follow commands, no spontaneous breathing MRI brain is noted Unremarkable OFF decadron Leukocyres is better #22.2--19.6--18.2--18.7 Hypernatremia NA#149--156 --160 --156 DD#[id number] improved ferritin#570 CRP#0.8 Objective - Vital Sign Vital Signs - 12hr 04/19/22 04/19/22 04/19/22 22:01 22:22 23:01 Temperature Pulse Rate 116 H 114 H 113 H Pulse Rate [ From Monitor] Respiratory 18 19 21 Rate Blood Pressure 141/71 141/71 157/74 O2 Sat by Pulse 97 97 96 Oximetry 04/19/22 04/20/22 04/20/22 23:56 00:00 00:01 Temperature 96.5 F L Pulse Rate 112 H 110 H 111 H Pulse Rate [ 115 H From Monitor] Respiratory 20 19 Rate Blood Pressure 134/68 134/68 O2 Sat by Pulse 97 98 97 Oximetry 04/20/22 04/20/22 04/20/22 01:01 02:01 03:00 Temperature Pulse Rate 112 H 112 H 110 H Pulse Rate [ From Monitor] Respiratory 21 19 19 Rate Blood Pressure 136/69 152/77 O2 Sat by Pulse 94 98 97 Oximetry 04/20/22 04/20/22 04/20/22 04:00 04:17 05:00 Temperature Pulse Rate 105 H 107 H 110 H Pulse Rate [ From Monitor] Respiratory 18 20 Rate Blood Pressure 144/71 144/71 150/76 O2 Sat by Pulse 99 98 98 Oximetry 04/20/22 04/20/22 04/20/22 06:00 07:00 08:22 Temperature Pulse Rate 108 H 111 H 112 H Pulse Rate [ From Monitor] Respiratory 21 20 Rate Blood Pressure 155/74 156/82 155/76 O2 Sat by Pulse 98 96 98 Oximetry - General Apperance Constitutional: comfortable - EENT EENT: PERRL, mucous membranes moist - Respiratory Respiratory: lungs clear, rhonchi - Cardiovascular Cardiovascular: regular rate, normal S1, normal S2 Extremities: no peripheral edema bilat, chronic venous stasis chg - Gastrointestinal Gastrointestinal: normoactive bowel sounds - Integumentary Integumentary: normal - Neurologic Cranial nerve examination: PERRL, EOMI Speech examination: other (no speech out put , intubated ,not follow command) Detailed motor examination: other (no movment is noted today to sternal rub ) - Laboratory Findings CBC and BMP: 04/20/22 06:00 04/20/22 06:00 Abnormal Lab Findings: Abnormal Labs 04/09/22 04/09/22 04/09/22 11:59 12:52 12:52 WBC RBC Hgb Hct RDW 15.3 H Plt Count Lymph % (Auto) 8.4 L Lymph # (Auto) 0.7 L Seg Neutrophils % 84.6 H Seg Neuts % (Manual) Lymphocytes % (Manual) Seg Neutrophils # Seg Neutrophils # Man Lymphocytes # (Manual) D-Dimer ABG pH ABG pO2 ABG HCO3 ABG O2 Saturation ABG Base Excess ABG Hemoglobin VBG pH Oxyhemoglobin Sodium Potassium Chloride 112.7 H Carbon Dioxide 18 L BUN Creatinine 2.0 H Glucose 204 H POC Glucose 203 H Lactic Acid Calcium Phosphorus Magnesium Ferritin Total Bilirubin 1.30 H Direct Bilirubin AST 47 H ALT Ammonia Lactate Dehydrogenase C-Reactive Protein Total Protein Albumin Urine Creatinine Urine Total Protein Coronavirus (PCR) 04/09/22 04/09/22 04/09/22 12:52 12:52 13:02 WBC RBC Hgb Hct RDW Plt Count Lymph % (Auto) Lymph # (Auto) Seg Neutrophils % Seg Neuts % (Manual) Lymphocytes % (Manual) Seg Neutrophils # Seg Neutrophils # Man Lymphocytes # (Manual) D-Dimer ABG pH ABG pO2 ABG HCO3 ABG O2 Saturation ABG Base Excess ABG Hemoglobin VBG pH 7.303 L Oxyhemoglobin Sodium Potassium Chloride Carbon Dioxide BUN Creatinine Glucose POC Glucose Lactic Acid Calcium Phosphorus Magnesium Ferritin Total Bilirubin Direct Bilirubin AST ALT Ammonia 20.0 L Lactate Dehydrogenase C-Reactive Protein Total Protein Albumin Urine Creatinine Urine Total Protein Coronavirus (PCR) Positive A 04/09/22 04/09/22 04/09/22 15:49 22:15 22:58 WBC RBC Hgb Hct RDW Plt Count Lymph % (Auto) Lymph # (Auto) Seg Neutrophils % Seg Neuts % (Manual) Lymphocytes % (Manual) Seg Neutrophils # Seg Neutrophils # Man Lymphocytes # (Manual) D-Dimer ABG pH 7.097 L* ABG pO2 188.8 H ABG HCO3 7.4 L ABG O2 Saturation 99.1 H ABG Base Excess -20.7 L ABG Hemoglobin VBG pH Oxyhemoglobin Sodium Potassium Chloride 108.8 H Carbon Dioxide 10 L D BUN 20 H Creatinine 2.6 H Glucose 465 H POC Glucose Lactic Acid 2.70 H* Calcium 7.4 L Phosphorus Magnesium Ferritin Total Bilirubin Direct Bilirubin AST ALT Ammonia Lactate Dehydrogenase C-Reactive Protein Total Protein Albumin Urine Creatinine Urine Total Protein Coronavirus (PCR) 04/09/22 04/09/22 04/10/22 23:19 Unknown 00:03 WBC RBC Hgb Hct RDW Plt Count Lymph % (Auto) Lymph # (Auto) Seg Neutrophils % Seg Neuts % (Manual) Lymphocytes % (Manual) Seg Neutrophils # Seg Neutrophils # Man Lymphocytes # (Manual) D-Dimer ABG pH ABG pO2 ABG HCO3 ABG O2 Saturation ABG Base Excess ABG Hemoglobin VBG pH Oxyhemoglobin Sodium Potassium Chloride Carbon Dioxide BUN Creatinine Glucose POC Glucose 356 H Lactic Acid 7.50 H* 6.10 H* Calcium Phosphorus Magnesium Ferritin Total Bilirubin Direct Bilirubin AST ALT Ammonia Lactate Dehydrogenase C-Reactive Protein Total Protein Albumin Urine Creatinine Urine Total Protein Coronavirus (PCR) 04/10/22 04/10/22 04/10/22 02:16 03:03 04:00 WBC RBC Hgb Hct RDW Plt Count Lymph % (Auto) Lymph # (Auto) Seg Neutrophils % Seg Neuts % (Manual) Lymphocytes % (Manual) Seg Neutrophils # Seg Neutrophils # Man Lymphocytes # (Manual) D-Dimer ABG pH ABG pO2 ABG HCO3 ABG O2 Saturation ABG Base Excess ABG Hemoglobin VBG pH Oxyhemoglobin Sodium Potassium Chloride Carbon Dioxide BUN Creatinine Glucose POC Glucose 317 H 325 H 308 H Lactic Acid Calcium Phosphorus Magnesium Ferritin Total Bilirubin Direct Bilirubin AST ALT Ammonia Lactate Dehydrogenase C-Reactive Protein Total Protein Albumin Urine Creatinine Urine Total Protein Coronavirus (PCR) 04/10/22 04/10/22 04/10/22 04:24 04:24 04:24 WBC 16.4 H RBC Hgb Hct RDW 16.2 H Plt Count Lymph % (Auto) Lymph # (Auto) Seg Neutrophils % Seg Neuts % (Manual) 94.0 H Lymphocytes % (Manual) 3.0 L Seg Neutrophils # Seg Neutrophils # Man 15.4 H Lymphocytes # (Manual) 0.5 L D-Dimer ABG pH ABG pO2 ABG HCO3 ABG O2 Saturation ABG Base Excess ABG Hemoglobin VBG pH Oxyhemoglobin Sodium Potassium 2.9 L* D Chloride 116.1 H Carbon Dioxide 11 L BUN 19 H Creatinine 2.5 H Glucose 376 H POC Glucose Lactic Acid Calcium 6.5 L Phosphorus 1.40 L Magnesium 1.60 L Ferritin Total Bilirubin Direct Bilirubin AST 107 H ALT 64 H Ammonia Lactate Dehydrogenase C-Reactive Protein Total Protein 5.5 L Albumin 2.8 L Urine Creatinine Urine Total Protein Coronavirus (PCR) 04/10/22 04/10/22 04/10/22 04:25 05:17 06:00 WBC RBC Hgb Hct RDW Plt Count Lymph % (Auto) Lymph # (Auto) Seg Neutrophils % Seg Neuts % (Manual) Lymphocytes % (Manual) Seg Neutrophils # Seg Neutrophils # Man Lymphocytes # (Manual) D-Dimer ABG pH 7.095 L* ABG pO2 112.3 H ABG HCO3 8.7 L ABG O2 Saturation ABG Base Excess -19.7 L ABG Hemoglobin VBG pH Oxyhemoglobin Sodium Potassium Chloride Carbon Dioxide BUN Creatinine Glucose POC Glucose 343 H 278 H Lactic Acid Calcium Phosphorus Magnesium Ferritin Total Bilirubin Direct Bilirubin AST ALT Ammonia Lactate Dehydrogenase C-Reactive Protein Total Protein Albumin Urine Creatinine Urine Total Protein Coronavirus (PCR) 04/10/22 04/10/22 04/10/22 06:53 07:54 08:58 WBC RBC Hgb Hct RDW Plt Count Lymph % (Auto) Lymph # (Auto) Seg Neutrophils % Seg Neuts % (Manual) Lymphocytes % (Manual) Seg Neutrophils # Seg Neutrophils # Man Lymphocytes # (Manual) D-Dimer ABG pH ABG pO2 ABG HCO3 ABG O2 Saturation ABG Base Excess ABG Hemoglobin VBG pH Oxyhemoglobin Sodium Potassium Chloride Carbon Dioxide BUN Creatinine Glucose POC Glucose 262 H 245 H 215 H Lactic Acid Calcium Phosphorus Magnesium Ferritin Total Bilirubin Direct Bilirubin AST ALT Ammonia Lactate Dehydrogenase C-Reactive Protein Total Protein Albumin Urine Creatinine Urine Total Protein Coronavirus (PCR) 04/10/22 04/10/22 04/10/22 10:12 10:51 11:47 WBC RBC Hgb Hct RDW Plt Count Lymph % (Auto) Lymph # (Auto) Seg Neutrophils % Seg Neuts % (Manual) Lymphocytes % (Manual) Seg Neutrophils # Seg Neutrophils # Man Lymphocytes # (Manual) D-Dimer ABG pH ABG pO2 ABG HCO3 ABG O2 Saturation ABG Base Excess ABG Hemoglobin VBG pH Oxyhemoglobin Sodium 148 H Potassium 3.4 L Chloride 116.7 H Carbon Dioxide 15 L BUN 22 H Creatinine 2.7 H Glucose 190 H POC Glucose 206 H 176 H Lactic Acid Calcium 6.9 L Phosphorus Magnesium Ferritin Total Bilirubin Direct Bilirubin AST ALT Ammonia Lactate Dehydrogenase C-Reactive Protein Total Protein Albumin Urine Creatinine Urine Total Protein Coronavirus (PCR) 04/10/22 04/10/22 04/10/22 11:47 11:47 12:02 WBC RBC Hgb Hct RDW Plt Count Lymph % (Auto) Lymph # (Auto) Seg Neutrophils % Seg Neuts % (Manual) Lymphocytes % (Manual) Seg Neutrophils # Seg Neutrophils # Man Lymphocytes # (Manual) D-Dimer ABG pH ABG pO2 ABG HCO3 ABG O2 Saturation ABG Base Excess ABG Hemoglobin VBG pH Oxyhemoglobin Sodium Potassium Chloride Carbon Dioxide BUN Creatinine Glucose POC Glucose 178 H Lactic Acid Calcium Phosphorus Magnesium Ferritin 1218.0 H Total Bilirubin Direct Bilirubin AST ALT Ammonia Lactate Dehydrogenase 482 H C-Reactive Protein 11.30 H Total Protein Albumin Urine Creatinine Urine Total Protein Coronavirus (PCR) 04/10/22 04/10/22 04/10/22 13:13 13:58 14:50 WBC RBC Hgb Hct RDW Plt Count Lymph % (Auto) Lymph # (Auto) Seg Neutrophils % Seg Neuts % (Manual) Lymphocytes % (Manual) Seg Neutrophils # Seg Neutrophils # Man Lymphocytes # (Manual) D-Dimer ABG pH ABG pO2 ABG HCO3 ABG O2 Saturation ABG Base Excess ABG Hemoglobin VBG pH Oxyhemoglobin Sodium Potassium Chloride Carbon Dioxide BUN Creatinine Glucose POC Glucose 160 H 150 H Lactic Acid Calcium Phosphorus Magnesium Ferritin Total Bilirubin Direct Bilirubin AST ALT Ammonia Lactate Dehydrogenase C-Reactive Protein Total Protein Albumin Urine Creatinine 224.2 H Urine Total Protein 172 H Coronavirus (PCR) 04/10/22 04/10/22 04/10/22 15:24 16:38 16:56 WBC RBC Hgb Hct RDW Plt Count Lymph % (Auto) Lymph # (Auto) Seg Neutrophils % Seg Neuts % (Manual) Lymphocytes % (Manual) Seg Neutrophils # Seg Neutrophils # Man Lymphocytes # (Manual) D-Dimer ABG pH ABG pO2 ABG HCO3 ABG O2 Saturation ABG Base Excess ABG Hemoglobin VBG pH Oxyhemoglobin Sodium Potassium Chloride Carbon Dioxide BUN Creatinine Glucose POC Glucose 140 H 154 H 149 H Lactic Acid Calcium Phosphorus Magnesium Ferritin Total Bilirubin Direct Bilirubin AST ALT Ammonia Lactate Dehydrogenase C-Reactive Protein Total Protein Albumin Urine Creatinine Urine Total Protein Coronavirus (PCR) 04/10/22 04/10/22 04/10/22 18:21 19:21 20:02 WBC RBC Hgb Hct RDW Plt Count Lymph % (Auto) Lymph # (Auto) Seg Neutrophils % Seg Neuts % (Manual) Lymphocytes % (Manual) Seg Neutrophils # Seg Neutrophils # Man Lymphocytes # (Manual) D-Dimer ABG pH ABG pO2 ABG HCO3 ABG O2 Saturation ABG Base Excess ABG Hemoglobin VBG pH Oxyhemoglobin Sodium Potassium Chloride Carbon Dioxide BUN Creatinine Glucose POC Glucose 141 H 126 H 139 H Lactic Acid Calcium Phosphorus Magnesium Ferritin Total Bilirubin Direct Bilirubin AST ALT Ammonia Lactate Dehydrogenase C-Reactive Protein Total Protein Albumin Urine Creatinine Urine Total Protein Coronavirus (PCR) 04/10/22 04/10/22 04/10/22 21:04 21:58 22:20 WBC RBC Hgb Hct RDW Plt Count Lymph % (Auto) Lymph # (Auto) Seg Neutrophils % Seg Neuts % (Manual) Lymphocytes % (Manual) Seg Neutrophils # Seg Neutrophils # Man Lymphocytes # (Manual) D-Dimer ABG pH ABG pO2 ABG HCO3 ABG O2 Saturation ABG Base Excess ABG Hemoglobin VBG pH Oxyhemoglobin Sodium Potassium Chloride 114.5 H Carbon Dioxide 17 L BUN 24 H Creatinine 2.5 H Glucose 165 H POC Glucose 144 H 161 H Lactic Acid Calcium 6.5 L Phosphorus Magnesium Ferritin Total Bilirubin Direct Bilirubin AST ALT Ammonia Lactate Dehydrogenase C-Reactive Protein Total Protein Albumin Urine Creatinine Urine Total Protein Coronavirus (PCR) 04/10/22 04/11/22 04/11/22 23:02 00:08 01:05 WBC RBC Hgb Hct RDW Plt Count Lymph % (Auto) Lymph # (Auto) Seg Neutrophils % Seg Neuts % (Manual) Lymphocytes % (Manual) Seg Neutrophils # Seg Neutrophils # Man Lymphocytes # (Manual) D-Dimer ABG pH ABG pO2 ABG HCO3 ABG O2 Saturation ABG Base Excess ABG Hemoglobin VBG pH Oxyhemoglobin Sodium Potassium Chloride Carbon Dioxide BUN Creatinine Glucose POC Glucose 160 H 148 H 156 H Lactic Acid Calcium Phosphorus Magnesium Ferritin Total Bilirubin Direct Bilirubin AST ALT Ammonia Lactate Dehydrogenase C-Reactive Protein Total Protein Albumin Urine Creatinine Urine Total Protein Coronavirus (PCR) 04/11/22 04/11/22 04/11/22 01:30 02:05 03:04 WBC RBC Hgb Hct RDW Plt Count Lymph % (Auto) Lymph # (Auto) Seg Neutrophils % Seg Neuts % (Manual) Lymphocytes % (Manual) Seg Neutrophils # Seg Neutrophils # Man Lymphocytes # (Manual) D-Dimer ABG pH ABG pO2 75.1 L ABG HCO3 17.2 L ABG O2 Saturation ABG Base Excess -5.8 L ABG Hemoglobin 11.5 L VBG pH Oxyhemoglobin Sodium Potassium Chloride Carbon Dioxide BUN Creatinine Glucose POC Glucose 150 H 168 H Lactic Acid Calcium Phosphorus Magnesium Ferritin Total Bilirubin Direct Bilirubin AST ALT Ammonia Lactate Dehydrogenase C-Reactive Protein Total Protein Albumin Urine Creatinine Urine Total Protein Coronavirus (PCR) 04/11/22 04/11/22 04/11/22 03:58 03:58 04:05 WBC 12.2 H RBC Hgb Hct RDW 15.7 H Plt Count Lymph % (Auto) Lymph # (Auto) Seg Neutrophils % Seg Neuts % (Manual) Lymphocytes % (Manual) Seg Neutrophils # Seg Neutrophils # Man Lymphocytes # (Manual) D-Dimer ABG pH ABG pO2 ABG HCO3 ABG O2 Saturation ABG Base Excess ABG Hemoglobin VBG pH Oxyhemoglobin Sodium 147 H Potassium Chloride 114.2 H Carbon Dioxide 19 L BUN 26 H Creatinine 2.5 H Glucose 154 H POC Glucose 151 H Lactic Acid Calcium 6.8 L Phosphorus Magnesium Ferritin Total Bilirubin Direct Bilirubin AST 106 H ALT 60 H Ammonia Lactate Dehydrogenase C-Reactive Protein Total Protein 5.6 L Albumin 2.7 L Urine Creatinine Urine Total Protein Coronavirus (PCR) 04/11/22 04/11/22 04/11/22 05:14 06:19 08:23 WBC RBC Hgb Hct RDW Plt Count Lymph % (Auto) Lymph # (Auto) Seg Neutrophils % Seg Neuts % (Manual) Lymphocytes % (Manual) Seg Neutrophils # Seg Neutrophils # Man Lymphocytes # (Manual) D-Dimer ABG pH ABG pO2 ABG HCO3 ABG O2 Saturation ABG Base Excess ABG Hemoglobin VBG pH Oxyhemoglobin Sodium Potassium Chloride Carbon Dioxide BUN Creatinine Glucose POC Glucose 134 H 144 H 143 H Lactic Acid Calcium Phosphorus Magnesium Ferritin Total Bilirubin Direct Bilirubin AST ALT Ammonia Lactate Dehydrogenase C-Reactive Protein Total Protein Albumin Urine Creatinine Urine Total Protein Coronavirus (PCR) 04/11/22 04/11/22 04/11/22 09:28 10:06 11:23 WBC RBC Hgb Hct RDW Plt Count Lymph % (Auto) Lymph # (Auto) Seg Neutrophils % Seg Neuts % (Manual) Lymphocytes % (Manual) Seg Neutrophils # Seg Neutrophils # Man Lymphocytes # (Manual) D-Dimer ABG pH ABG pO2 ABG HCO3 ABG O2 Saturation ABG Base Excess ABG Hemoglobin VBG pH Oxyhemoglobin Sodium Potassium Chloride Carbon Dioxide BUN Creatinine Glucose POC Glucose 138 H Lactic Acid Calcium Phosphorus Magnesium Ferritin Total Bilirubin Direct Bilirubin AST ALT Ammonia Lactate Dehydrogenase C-Reactive Protein Total Protein Albumin Urine Creatinine 161.8 H 160.5 H Urine Total Protein Coronavirus (PCR) 04/11/22 04/11/22 04/12/22 15:59 23:58 00:01 WBC 16.2 H RBC Hgb Hct RDW 15.8 H Plt Count Lymph % (Auto) 5.7 L Lymph # (Auto) 0.9 L Seg Neutrophils % 89.6 H Seg Neuts % (Manual) Lymphocytes % (Manual) Seg Neutrophils # 14.6 H Seg Neutrophils # Man Lymphocytes # (Manual) D-Dimer ABG pH ABG pO2 ABG HCO3 ABG O2 Saturation ABG Base Excess ABG Hemoglobin VBG pH Oxyhemoglobin Sodium Potassium Chloride Carbon Dioxide BUN Creatinine Glucose POC Glucose 166 H 150 H Lactic Acid Calcium Phosphorus Magnesium Ferritin Total Bilirubin Direct Bilirubin AST ALT Ammonia Lactate Dehydrogenase C-Reactive Protein Total Protein Albumin Urine Creatinine Urine Total Protein Coronavirus (PCR) 04/12/22 04/12/22 04/12/22 03:20 04:00 04:00 WBC RBC Hgb Hct RDW Plt Count Lymph % (Auto) Lymph # (Auto) Seg Neutrophils % Seg Neuts % (Manual) Lymphocytes % (Manual) Seg Neutrophils # Seg Neutrophils # Man Lymphocytes # (Manual) D-Dimer 1874.86 H ABG pH 7.513 H ABG pO2 61.7 L ABG HCO3 ABG O2 Saturation 94.2 L ABG Base Excess ABG Hemoglobin 11.5 L VBG pH Oxyhemoglobin 92.6 L Sodium Potassium Chloride Carbon Dioxide BUN Creatinine Glucose POC Glucose Lactic Acid Calcium Phosphorus Magnesium Ferritin 890.0 H Total Bilirubin Direct Bilirubin AST ALT Ammonia Lactate Dehydrogenase C-Reactive Protein Total Protein Albumin Urine Creatinine Urine Total Protein Coronavirus (PCR) 04/12/22 04/12/22 04/12/22 04:00 04:20 04:59 WBC RBC Hgb Hct RDW Plt Count Lymph % (Auto) Lymph # (Auto) Seg Neutrophils % Seg Neuts % (Manual) Lymphocytes % (Manual) Seg Neutrophils # Seg Neutrophils # Man Lymphocytes # (Manual) D-Dimer ABG pH ABG pO2 ABG HCO3 ABG O2 Saturation ABG Base Excess ABG Hemoglobin VBG pH Oxyhemoglobin Sodium 146 H Potassium Chloride 108.0 H Carbon Dioxide BUN 38 H Creatinine 2.3 H Glucose 173 H POC Glucose 146 H Lactic Acid Calcium 6.7 L Phosphorus Magnesium Ferritin Total Bilirubin Direct Bilirubin AST ALT Ammonia Lactate Dehydrogenase 763 H C-Reactive Protein 14.10 H Total Protein Albumin Urine Creatinine Urine Total Protein Coronavirus (PCR) 04/12/22 04/12/22 04/12/22 06:05 10:15 11:52 WBC RBC Hgb Hct RDW Plt Count Lymph % (Auto) Lymph # (Auto) Seg Neutrophils % Seg Neuts % (Manual) Lymphocytes % (Manual) Seg Neutrophils # Seg Neutrophils # Man Lymphocytes # (Manual) D-Dimer ABG pH ABG pO2 ABG HCO3 ABG O2 Saturation ABG Base Excess ABG Hemoglobin VBG pH Oxyhemoglobin Sodium Potassium Chloride Carbon Dioxide BUN Creatinine Glucose POC Glucose 190 H 122 H 125 H Lactic Acid Calcium Phosphorus Magnesium Ferritin Total Bilirubin Direct Bilirubin AST ALT Ammonia Lactate Dehydrogenase C-Reactive Protein Total Protein Albumin Urine Creatinine Urine Total Protein Coronavirus (PCR) 04/12/22 04/13/22 04/13/22 13:18 00:14 03:41 WBC RBC Hgb Hct RDW Plt Count Lymph % (Auto) Lymph # (Auto) Seg Neutrophils % Seg Neuts % (Manual) Lymphocytes % (Manual) Seg Neutrophils # Seg Neutrophils # Man Lymphocytes # (Manual) D-Dimer ABG pH 7.487 H ABG pO2 62.1 L ABG HCO3 ABG O2 Saturation 93.2 L ABG Base Excess ABG Hemoglobin 11.9 L VBG pH Oxyhemoglobin 91.5 L Sodium Potassium Chloride Carbon Dioxide BUN 38 H Creatinine 2.1 H Glucose 144 H POC Glucose 208 H Lactic Acid Calcium 7.1 L Phosphorus Magnesium Ferritin Total Bilirubin Direct Bilirubin AST ALT Ammonia Lactate Dehydrogenase C-Reactive Protein Total Protein Albumin Urine Creatinine Urine Total Protein Coronavirus (PCR) 04/13/22 04/13/22 04/14/22 04:31 04:31 03:54 WBC 13.9 H RBC Hgb Hct RDW 15.7 H Plt Count Lymph % (Auto) Lymph # (Auto) Seg Neutrophils % Seg Neuts % (Manual) Lymphocytes % (Manual) Seg Neutrophils # Seg Neutrophils # Man Lymphocytes # (Manual) D-Dimer ABG pH 7.487 H ABG pO2 57.8 L ABG HCO3 ABG O2 Saturation 93.9 L ABG Base Excess ABG Hemoglobin 10.0 L VBG pH Oxyhemoglobin 92.3 L Sodium Potassium Chloride Carbon Dioxide BUN 42 H Creatinine 1.9 H Glucose 204 H POC Glucose Lactic Acid Calcium 7.4 L Phosphorus Magnesium Ferritin Total Bilirubin Direct Bilirubin AST ALT Ammonia Lactate Dehydrogenase C-Reactive Protein Total Protein Albumin Urine Creatinine Urine Total Protein Coronavirus (PCR) 04/14/22 04/14/22 04/14/22 07:28 07:28 07:28 WBC RBC Hgb Hct RDW Plt Count Lymph % (Auto) Lymph # (Auto) Seg Neutrophils % Seg Neuts % (Manual) Lymphocytes % (Manual) Seg Neutrophils # Seg Neutrophils # Man Lymphocytes # (Manual) D-Dimer 5586.76 H ABG pH ABG pO2 ABG HCO3 ABG O2 Saturation ABG Base Excess ABG Hemoglobin VBG pH Oxyhemoglobin Sodium Potassium Chloride Carbon Dioxide BUN Creatinine Glucose POC Glucose Lactic Acid Calcium Phosphorus Magnesium Ferritin 454.7 H Total Bilirubin Direct Bilirubin AST ALT Ammonia Lactate Dehydrogenase 1345 H C-Reactive Protein 4.80 H Total Protein Albumin Urine Creatinine Urine Total Protein Coronavirus (PCR) 04/14/22 04/14/22 04/14/22 07:28 07:28 09:26 WBC 18.6 H RBC 3.59 L Hgb Hct RDW 15.6 H Plt Count Lymph % (Auto) Lymph # (Auto) Seg Neutrophils % Seg Neuts % (Manual) Lymphocytes % (Manual) Seg Neutrophils # Seg Neutrophils # Man Lymphocytes # (Manual) D-Dimer ABG pH ABG pO2 ABG HCO3 ABG O2 Saturation ABG Base Excess ABG Hemoglobin VBG pH Oxyhemoglobin Sodium 149 H Potassium Chloride 110.3 H Carbon Dioxide BUN 57 H Creatinine 2.3 H Glucose 205 H POC Glucose Lactic Acid Calcium Phosphorus Magnesium 2.90 H Ferritin Total Bilirubin Direct Bilirubin AST ALT Ammonia Lactate Dehydrogenase C-Reactive Protein Total Protein Albumin Urine Creatinine Urine Total Protein Coronavirus (PCR) 04/14/22 04/14/22 04/14/22 11:52 15:41 17:18 WBC RBC Hgb Hct RDW Plt Count Lymph % (Auto) Lymph # (Auto) Seg Neutrophils % Seg Neuts % (Manual) Lymphocytes % (Manual) Seg Neutrophils # Seg Neutrophils # Man Lymphocytes # (Manual) D-Dimer ABG pH 7.506 H ABG pO2 51.0 L ABG HCO3 ABG O2 Saturation 87.3 L ABG Base Excess ABG Hemoglobin 10.6 L VBG pH Oxyhemoglobin 85.4 L Sodium Potassium Chloride Carbon Dioxide BUN Creatinine Glucose POC Glucose 173 H 187 H Lactic Acid Calcium Phosphorus Magnesium Ferritin Total Bilirubin Direct Bilirubin AST ALT Ammonia Lactate Dehydrogenase C-Reactive Protein Total Protein Albumin Urine Creatinine Urine Total Protein Coronavirus (PCR) 04/15/22 04/15/22 04/15/22 00:03 03:43 05:47 WBC RBC Hgb Hct RDW Plt Count Lymph % (Auto) Lymph # (Auto) Seg Neutrophils % Seg Neuts % (Manual) Lymphocytes % (Manual) Seg Neutrophils # Seg Neutrophils # Man Lymphocytes # (Manual) D-Dimer ABG pH 7.477 H ABG pO2 59.1 L ABG HCO3 ABG O2 Saturation 90.5 L ABG Base Excess ABG Hemoglobin 9.5 L VBG pH Oxyhemoglobin 88.7 L Sodium Potassium Chloride Carbon Dioxide BUN Creatinine Glucose POC Glucose 246 H 217 H Lactic Acid Calcium Phosphorus Magnesium Ferritin Total Bilirubin Direct Bilirubin AST ALT Ammonia Lactate Dehydrogenase C-Reactive Protein Total Protein Albumin Urine Creatinine Urine Total Protein Coronavirus (PCR) 04/15/22 04/15/22 04/15/22 09:40 10:00 12:00 WBC 19.3 H RBC 3.18 L Hgb 9.3 L Hct 27.7 L RDW 15.8 H Plt Count Lymph % (Auto) Lymph # (Auto) Seg Neutrophils % Seg Neuts % (Manual) Lymphocytes % (Manual) Seg Neutrophils # Seg Neutrophils # Man Lymphocytes # (Manual) D-Dimer ABG pH ABG pO2 ABG HCO3 ABG O2 Saturation ABG Base Excess ABG Hemoglobin VBG pH Oxyhemoglobin Sodium 146 H Potassium Chloride 107.9 H Carbon Dioxide BUN 76 H Creatinine 1.9 H Glucose 214 H POC Glucose Lactic Acid 2.10 H* Calcium 7.7 L Phosphorus Magnesium Ferritin Total Bilirubin Direct Bilirubin AST ALT Ammonia Lactate Dehydrogenase C-Reactive Protein Total Protein Albumin Urine Creatinine Urine Total Protein Coronavirus (PCR) 04/15/22 04/15/22 04/15/22 12:21 17:51 21:39 WBC RBC Hgb Hct RDW Plt Count Lymph % (Auto) Lymph # (Auto) Seg Neutrophils % Seg Neuts % (Manual) Lymphocytes % (Manual) Seg Neutrophils # Seg Neutrophils # Man Lymphocytes # (Manual) D-Dimer ABG pH ABG pO2 ABG HCO3 ABG O2 Saturation ABG Base Excess ABG Hemoglobin VBG pH Oxyhemoglobin Sodium Potassium Chloride Carbon Dioxide BUN Creatinine Glucose POC Glucose 236 H 255 H 223 H Lactic Acid Calcium Phosphorus Magnesium Ferritin Total Bilirubin Direct Bilirubin AST ALT Ammonia Lactate Dehydrogenase C-Reactive Protein Total Protein Albumin Urine Creatinine Urine Total Protein Coronavirus (PCR) 04/16/22 04/16/22 04/16/22 00:17 02:35 04:00 WBC RBC Hgb Hct RDW Plt Count Lymph % (Auto) Lymph # (Auto) Seg Neutrophils % Seg Neuts % (Manual) Lymphocytes % (Manual) Seg Neutrophils # Seg Neutrophils # Man Lymphocytes # (Manual) D-Dimer ABG pH 7.318 L ABG pO2 71.1 L ABG HCO3 27.7 H ABG O2 Saturation 94.8 L ABG Base Excess ABG Hemoglobin 10.3 L VBG pH Oxyhemoglobin 92.9 L Sodium Potassium Chloride Carbon Dioxide BUN Creatinine Glucose POC Glucose 201 H Lactic Acid Calcium Phosphorus Magnesium Ferritin 446.2 H Total Bilirubin Direct Bilirubin AST ALT Ammonia Lactate Dehydrogenase C-Reactive Protein Total Protein Albumin Urine Creatinine Urine Total Protein Coronavirus (PCR) 04/16/22 04/16/22 04/16/22 04:00 06:00 Unknown WBC RBC Hgb Hct RDW Plt Count Lymph % (Auto) Lymph # (Auto) Seg Neutrophils % Seg Neuts % (Manual) Lymphocytes % (Manual) Seg Neutrophils # Seg Neutrophils # Man Lymphocytes # (Manual) D-Dimer 3886.80 H ABG pH ABG pO2 ABG HCO3 ABG O2 Saturation ABG Base Excess ABG Hemoglobin VBG pH Oxyhemoglobin Sodium 148 H Potassium Chloride 109.9 H Carbon Dioxide BUN 84 H Creatinine 1.7 H Glucose 276 H POC Glucose Lactic Acid Calcium Phosphorus Magnesium Ferritin Total Bilirubin Direct Bilirubin 0.5 H AST 69 H ALT 120 H Ammonia Lactate Dehydrogenase 1467 H C-Reactive Protein 1.90 H Total Protein 5.9 L Albumin 3.5 L Urine Creatinine Urine Total Protein Coronavirus (PCR) 04/16/22 04/17/22 04/17/22 Unknown 05:12 05:12 WBC 25.2 H 22.2 H RBC 3.50 L Hgb Hct RDW 15.8 H 15.8 H Plt Count Lymph % (Auto) Lymph # (Auto) Seg Neutrophils % Seg Neuts % (Manual) Lymphocytes % (Manual) Seg Neutrophils # Seg Neutrophils # Man Lymphocytes # (Manual) D-Dimer 3804.33 H ABG pH ABG pO2 ABG HCO3 ABG O2 Saturation ABG Base Excess ABG Hemoglobin VBG pH Oxyhemoglobin Sodium Potassium Chloride Carbon Dioxide BUN Creatinine Glucose POC Glucose Lactic Acid Calcium Phosphorus Magnesium Ferritin Total Bilirubin Direct Bilirubin AST ALT Ammonia Lactate Dehydrogenase C-Reactive Protein Total Protein Albumin Urine Creatinine Urine Total Protein Coronavirus (PCR) 04/17/22 04/17/22 04/17/22 05:12 17:27 20:04 WBC RBC Hgb Hct RDW Plt Count Lymph % (Auto) Lymph # (Auto) Seg Neutrophils % Seg Neuts % (Manual) Lymphocytes % (Manual) Seg Neutrophils # Seg Neutrophils # Man Lymphocytes # (Manual) D-Dimer ABG pH ABG pO2 ABG HCO3 ABG O2 Saturation ABG Base Excess ABG Hemoglobin VBG pH Oxyhemoglobin Sodium 149 H Potassium 5.3 H Chloride 109.4 H Carbon Dioxide BUN 80 H Creatinine 1.5 H Glucose 320 H POC Glucose 308 H 301 H Lactic Acid Calcium Phosphorus Magnesium Ferritin Total Bilirubin Direct Bilirubin AST 171 H ALT 231 H Ammonia Lactate Dehydrogenase C-Reactive Protein Total Protein 5.4 L Albumin 3.7 L Urine Creatinine Urine Total Protein Coronavirus (PCR) 04/18/22 04/18/22 04/18/22 01:55 05:41 05:41 WBC RBC Hgb Hct RDW Plt Count Lymph % (Auto) Lymph # (Auto) Seg Neutrophils % Seg Neuts % (Manual) Lymphocytes % (Manual) Seg Neutrophils # Seg Neutrophils # Man Lymphocytes # (Manual) D-Dimer ABG pH ABG pO2 ABG HCO3 ABG O2 Saturation ABG Base Excess ABG Hemoglobin VBG pH Oxyhemoglobin Sodium 156 H Potassium Chloride 117.8 H Carbon Dioxide BUN 69 H Creatinine 1.3 H Glucose 231 H POC Glucose 301 H Lactic Acid Calcium 8.3 L Phosphorus Magnesium Ferritin 570.8 H Total Bilirubin Direct Bilirubin AST ALT Ammonia Lactate Dehydrogenase 1473 H C-Reactive Protein Total Protein Albumin Urine Creatinine Urine Total Protein Coronavirus (PCR) 04/18/22 04/18/22 04/18/22 05:41 06:09 10:35 WBC 19.6 H RBC 3.38 L Hgb 9.7 L Hct 29.5 L RDW 15.9 H Plt Count Lymph % (Auto) Lymph # (Auto) Seg Neutrophils % Seg Neuts % (Manual) Lymphocytes % (Manual) Seg Neutrophils # Seg Neutrophils # Man Lymphocytes # (Manual) D-Dimer ABG pH ABG pO2 ABG HCO3 ABG O2 Saturation ABG Base Excess ABG Hemoglobin VBG pH Oxyhemoglobin Sodium 156 H Potassium Chloride 118.2 H Carbon Dioxide 32 H BUN 66 H Creatinine 1.3 H Glucose 179 H POC Glucose 210 H Lactic Acid Calcium 8.3 L Phosphorus Magnesium Ferritin Total Bilirubin Direct Bilirubin AST 91 H ALT 234 H Ammonia Lactate Dehydrogenase C-Reactive Protein Total Protein 5.3 L Albumin 3.4 L Urine Creatinine Urine Total Protein Coronavirus (PCR) 04/18/22 04/18/22 04/19/22 11:57 23:36 03:21 WBC RBC Hgb Hct RDW Plt Count Lymph % (Auto) Lymph # (Auto) Seg Neutrophils % Seg Neuts % (Manual) Lymphocytes % (Manual) Seg Neutrophils # Seg Neutrophils # Man Lymphocytes # (Manual) D-Dimer ABG pH ABG pO2 ABG HCO3 ABG O2 Saturation ABG Base Excess ABG Hemoglobin VBG pH Oxyhemoglobin Sodium Potassium Chloride Carbon Dioxide BUN Creatinine Glucose POC Glucose 161 H 209 H 184 H Lactic Acid Calcium Phosphorus Magnesium Ferritin Total Bilirubin Direct Bilirubin AST ALT Ammonia Lactate Dehydrogenase C-Reactive Protein Total Protein Albumin Urine Creatinine Urine Total Protein Coronavirus (PCR) 04/19/22 04/19/22 04/19/22 04:00 04:00 05:58 WBC 18.2 H RBC Hgb Hct RDW 15.7 H Plt Count Lymph % (Auto) Lymph # (Auto) Seg Neutrophils % Seg Neuts % (Manual) Lymphocytes % (Manual) Seg Neutrophils # Seg Neutrophils # Man Lymphocytes # (Manual) D-Dimer ABG pH ABG pO2 ABG HCO3 ABG O2 Saturation ABG Base Excess ABG Hemoglobin VBG pH Oxyhemoglobin Sodium 160 H Potassium Chloride 119.7 H Carbon Dioxide 31 H BUN 60 H Creatinine 1.3 H Glucose 213 H POC Glucose 207 H Lactic Acid Calcium Phosphorus Magnesium Ferritin Total Bilirubin Direct Bilirubin AST 77 H ALT 208 H Ammonia Lactate Dehydrogenase C-Reactive Protein Total Protein 5.8 L Albumin 3.5 L Urine Creatinine Urine Total Protein Coronavirus (PCR) 04/19/22 04/19/22 04/19/22 11:25 17:35 21:56 WBC RBC Hgb Hct RDW Plt Count Lymph % (Auto) Lymph # (Auto) Seg Neutrophils % Seg Neuts % (Manual) Lymphocytes % (Manual) Seg Neutrophils # Seg Neutrophils # Man Lymphocytes # (Manual) D-Dimer ABG pH ABG pO2 ABG HCO3 ABG O2 Saturation ABG Base Excess ABG Hemoglobin VBG pH Oxyhemoglobin Sodium Potassium Chloride Carbon Dioxide BUN Creatinine Glucose POC Glucose 137 H 168 H 188 H Lactic Acid Calcium Phosphorus Magnesium Ferritin Total Bilirubin Direct Bilirubin AST ALT Ammonia Lactate Dehydrogenase C-Reactive Protein Total Protein Albumin Urine Creatinine Urine Total Protein Coronavirus (PCR) 04/19/22 04/20/22 04/20/22 22:32 01:10 04:17 WBC RBC Hgb Hct RDW Plt Count Lymph % (Auto) Lymph # (Auto) Seg Neutrophils % Seg Neuts % (Manual) Lymphocytes % (Manual) Seg Neutrophils # Seg Neutrophils # Man Lymphocytes # (Manual) D-Dimer ABG pH ABG pO2 ABG HCO3 31.9 H ABG O2 Saturation ABG Base Excess 5.7 H ABG Hemoglobin 10.3 L VBG pH Oxyhemoglobin 94.6 L Sodium 151 H D Potassium Chloride Carbon Dioxide BUN Creatinine Glucose POC Glucose Lactic Acid Calcium Phosphorus Magnesium Ferritin Total Bilirubin Direct Bilirubin AST ALT Ammonia Lactate Dehydrogenase C-Reactive Protein Total Protein Albumin Urine Creatinine 28.3 H Urine Total Protein Coronavirus (PCR) 04/20/22 04/20/22 06:00 06:00 WBC 18.7 H RBC 3.58 L Hgb Hct RDW 16.4 H Plt Count 130 L Lymph % (Auto) Lymph # (Auto) Seg Neutrophils % Seg Neuts % (Manual) Lymphocytes % (Manual) Seg Neutrophils # Seg Neutrophils # Man Lymphocytes # (Manual) D-Dimer ABG pH ABG pO2 ABG HCO3 ABG O2 Saturation ABG Base Excess ABG Hemoglobin VBG pH Oxyhemoglobin Sodium 156 H Potassium Chloride 118.3 H Carbon Dioxide 34 H BUN 52 H Creatinine Glucose 246 H POC Glucose Lactic Acid Calcium Phosphorus Magnesium Ferritin Total Bilirubin Direct Bilirubin AST ALT Ammonia Lactate Dehydrogenase C-Reactive Protein Total Protein Albumin Urine Creatinine Urine Total Protein Coronavirus (PCR)
[2022-04-20] MEDS: SENNOSIDES/DOCUSATE SODIUM 8.6/50 MG TAB FEEDTUBE SCH ×2 (10:20→22:05)
--- NOTE | 2022-04-20 10:25 | Progress Note ---
<KEE GONZALEZ - Last Filed: 04/20/22 18:10> Assessment and Plan Assessment and plan: This is a 77-year-old female with DM and ovarian cancer in remission admitted for septic shock secondary to COVID-19 pneumonia, acute kidney injury, acute hypoxic respiratory failure and currently in multiorgan failure Hospital Course to Date: 04/10: Patient noted to have myoclonic jerking this morning and was given 2 mg of Ativan which aborted the jerking. Neurology was consulted and MRI and EEG were ordered. Patient admits to [facility] for MRI at this time. Patient is hypotensive and currently on Levophed, vasopressin and dobutamine. Nephrology consulted for renal failure. Remains on insulin drip and was placed on a bicarbonate drip this morning. Infectious disease consulted who added vancomy socrates and ordered follow-up labs. Dr. Craig had a conversation with family about prognosis and given multisystem organ failure. We will continue supportive care. 04/11/22-patient seen at bedside. T/V orally intubated. No purposeful response on assessment. make periodic jerking movement. EEG done today-will f/u with result. BICarb d/c -acidosis has improved-started on D5 11/28 NS. Reviewed specialist note and reces-renal US-no acute finding. Continue Pressors for MAPs >65. Wean as tolerated. Bicarb-d/c and start D5W. 04/12: Patient is following commands, nutrition consulted for tube feedings, PEEP decreased with possible PSV in the a.m., insulin drip discontinued and SSI/basal dose insulin started. [facility] will update son. 04/13: Renal function continues to improve, intermittently following commands, [facility] ordered 1 x 40 mg of Lasix repeat CXR in the a.m. Tolerating tube feedings. 04/14: PEEP increased per [facility], will not repeat Lasix again due to increasing renal functions. Ordered CT head. Overnight patient was tachypneic and agitated and Precedex drip was started. We will start Seroquel and wean Precedex as tolerated. 04/15: IVF started by nephro yesterday for hypernatremia, awaiting BMP for today to result. Overnight patient was started on propofol and has propofol and precedex infusing. Fentanyl gtt ordered and precedex gtt discontinued. 04/16: Patient remains on the vent, back on sedation overnight due to vent unsynchrony. Remains encephalopathic, EEG pending, Neurology reconsulted. Continue FWF Q4hrs for hypernatremia and SSI and basal insulin adjusted for better glycemic control. Worsening leukocytosis noted, patient remains afebrile. Patient completed X5 of IV Abx and still on IV steroids, will continue to monitor for now. ID is also following. D/C CCM plan for family phone conference with patient's son tomorrow to discuss goal of care. 04/17: Remains on the vent, mentation is unchanged, MRI and Neurology recs noted. FWF increased due to persistent hypernatremia, X1 dose of kayexalate was also given for hyperkalemia, renal function is improvement. Continue to monitor renal function and electrolytes. Insulin was adjusted for hyperglycemia. Plan for possible family conference meeting today with the senior analysis specialist. 04/18: With worsening hypernatremia this am despite Q4hrs FWF and X1 L of D5 per Nephro. Unclear etiology at this time. Will continue FWF for now and Nephro is also following. ABD US pending for elevated LTFs, will continue to trend LFTs. Still hyperglycemic, insulin adjusted. Patient's family opted for trach and PEG. General Surgery consulted. 04/19: Hypernatremia worsen this am, FWF held due to NPO status. Order placed for D5W X2bags, serial Na ordered. Will also check some urine lytes and serum osmo. CT ado/pelvis and Abd US noted, LFT downtrending. Will continue to trend LFTs. Plan for possible trach and PEG by general Surgery. 04/20: GILES overnight. Hypernatremia improved, continue D5W, FWF, and serial Na check. Possible trach and PEG sometimes next week by general Surgery. Neuro: Acute Metabolic Encephalopathy Myoclonic Jerks -Myoclonic jerking aborted with Ativan early in admission but none noted since -Initial CT head showed no acute abnormality -EEG absence of definite epileptiform abnormalities would not rule out the possibility of epilepsy, compatible with moderate to moderately severe diffuse encephalopathy -Repeat CTH shows no acute abnormality -MRI Brain noted -repeat eeg noted -Neurology reconsulted -Avoid delirium -Reorientation as needed -Maintain sleep-wake cycle Cardiac: NAD -Blood pressure monitoring per protocol -s/p vasopressor support with Levophed, dobutamine, vasopressin -MAP goal greater than 65 -Echocardiogram shows LVEF 55 to 60%, normal bivalve function, mildly dilated right ventricle Respiratory: Acute hypoxic respiratory failure ARDS COVID Pneumonia -CCM consulted, appreciate recommendations -Intubated in the emergency department 04/09 with 7.00 ETT at 22 the lips -Vent setting:PRVC- 40%,6,18,400 -A.m. ABG and CXR noted -CCM consulted, appreciate recommendations -Continue IV Steroids and Nebs per CCM -Continue IV Abx per ID -VAP bundle addressed -Aspiration precaution HOB above 30 -Daily ABG and CXR -Continue SPO2 monitoring for SPO2 goal above 92% -Patient family opted for trach and PEG -General Surgery consulted : Acute kidney injury likely secondary to ischemic acute tubular necrosis Hypernatremia -FeNa calculated at 0.13 -Renal ultrasound Shows mild echogenic kidneys which can be seen in medical renal disease, no hydronephrosis, small amount of free fluid in the abdomen -Nephrology consulted, appreciate recommendations -Renal function continue to improve -Worsen hypernatremia, unclear etiology at this time -s/p D5W X2bags, hypernatremia improved -Continue FWF and serial Na -Strict intake and output -Renally dose medications -Avoid nephrotoxic medications -Daily weights -Monitor and replace electrolytes as needed ID: Septic shock secondary to COVID-19 pneumonia Lactic Acidosis Leukocytosis -Infectious disease consulted, appreciate recommendations -Admit CXR showed bilateral air space opacities -Covid 19 PCR (+) -Antibiotic therapy with Rocephin (04/11-04/15) and vancomycin (04/11-04/14) -Decadron 8 mg daily for 10 days (04/09-04/18) -Now on Cefepine per ID -Per ID: Due to renal failure, not a candidate for remdesivir -S/p Actemra 04/10 -Contact/droplet precautions -f/u blood culture -Monitor WBC and temperature curve -Trend COVID-19 inflammatory markers Endo: h/o DM s/p DKA -S/p insulin drip -Remain hyperglycemic, probably due to IV steroids -SSI and Lantus adjusted -Continue Accu-Cheks every 6 -While critically ill target blood glucose of 140-180 Elevated Ddimer -most likely due to COVID -BLE dopplar US shows no DVT -Continue to trend inflammatory markers -Lovenox subcu -Monitor for signs of bleeding -SCDs to BLE while in bed -Transfuse hemoglobin less than 7 GI: Transaminitis -Presented with elevated LFTs -LTFs still labile -Abd US pending -Continue to trend LFTs GI/DVT Prophylaxis -PPI- Pepcid -Lovenox switch to heparin subQ due to ASHLEY -SCDs to bilateral lower extremities while in bed The high probability of a clinically significant, sudden or life threatening deterioration of the [multi] system(s) required my full and direct attention, intervention and personal management. The aggregate critical care time was [60] minutes. This time is in addition to time spent performing reported procedures but includes the following: [x] Data Review and interpretation [x] Patient assessment and monitoring of vital signs [x] Documentation [x] Medication orders and management Disposition Plan: ICU Total Time Spent with Patient (Minutes): 60 History Interval history: Patient seen and examined at the bedside. Remains intubated and on low dose fentanyl gtt. Open eyes spontaneously and tracking but does not follow commands. Pupils are round and reactive, GILES overnight Hospitalist Physical - Physical exam Narrative exam: General appearance: Present: no acute distress, well-nourished, obese, other (Intubated and sedated) - EENT Eyes: Present: PERRL ENT: other (Dry oral mucosa) - Neck Neck: Present: normal ROM - Respiratory Respiratory effort: normal Respiratory: bilateral: rhonchi - Cardiovascular Rhythm: regular Heart Sounds: Present: S1 & S2 - Extremities Extremities: no ischemia, pulses intact, pulses symmetrical Extremity abnormal: edema - Peripheral Assessment Bilateral Upper Extremity Edema Type: Pitting Edema Degree: 2+ Capillary Refill: < 3 seconds Skin Temperature: Warm Generalized Edema Type: Non-pitting Edema Degree: 2+ Capillary Refill: < 3 seconds Skin Temperature: Warm Peripheral Pulses: within normal limits - Abdominal General gastrointestinal: soft, non-distended, normal bowel sounds - Integumentary Integumentary: Present: warm, dry - Psychiatric Psychiatric: other (Intubated and sedated) - Neurologic Neurologic: moves all extremities (Non-purposeful movement of BUE, no movement in lower extremities), other (Intubated and sedated. Open eyes spontaneously, and tracking but does not follow commands. Pupils are round and reactive) - Allied Health Allied health notes reviewed: nursing, case management - Constitutional Vitals: Temp Pulse Resp BP Pulse Ox 96.5 F L 112 H 20 155/76 98 04/20/22 00:00 04/20/22 08:22 04/20/22 07:00 04/20/22 08:22 04/20/22 08:22 HEART Score - HEART Score Age: > 65 Risk factors: 1-2 risk factors Troponin: Troponin T < 0.010 ng/mL (0.00-0.029) 04/09/22 12:52 Troponin: < normal limit - Critical Actions Critical Actions: 4-6 pts:12-16.6% risk of adverse cardiac event. Should be admitted Results - Labs CBC & Chem 7: 04/20/22 06:00 04/20/22 06:00 Labs: Laboratory Last Values WBC 18.7 K/mm3 (4.5-11.0) H 04/20/22 06:00 RBC 3.58 M/mm3 (3.65-5.03) L 04/20/22 06:00 Hgb 10.6 gm/dl (10.1-14.3) 04/20/22 06:00 Hct 32.6 % (30.3-42.9) 04/20/22 06:00 MCV 91 fl (79-97) 04/20/22 06:00 MCH 30 pg (28-32) 04/20/22 06:00 MCHC 33 % (30-34) 04/20/22 06:00 RDW 16.4 % (13.2-15.2) H 04/20/22 06:00 Plt Count 130 K/mm3 (140-440) L 04/20/22 06:00 Lymph % (Auto) 5.7 % (13.4-35.0) L 04/12/22 00:01 Oliver % (Auto) 4.5 % (0.0-7.3) 04/12/22 00:01 Eos % (Auto) 0.0 % (0.0-4.3) 04/12/22 00:01 Baso % (Auto) 0.2 % (0.0-1.8) 04/12/22 00:01 Lymph # (Auto) 0.9 K/mm3 (1.2-5.4) L 04/12/22 00:01 Oliver # (Auto) 0.7 K/mm3 (0.0-0.8) 04/12/22 00:01 Eos # (Auto) 0.0 K/mm3 (0.0-0.4) 04/12/22 00:01 Baso # (Auto) 0.0 K/mm3 (0.0-0.1) 04/12/22 00:01 Add Manual Diff Complete 04/10/22 04:24 Total Counted 100 04/10/22 04:24 Seg Neutrophils % 89.6 % (40.0-70.0) H 04/12/22 00:01 Seg Neuts % (Manual) 94.0 % (40.0-70.0) H 04/10/22 04:24 Band Neutrophils % 0 % 04/10/22 04:24 Lymphocytes % (Manual) 3.0 % (13.4-35.0) L 04/10/22 04:24 Reactive Lymphs % (Man) 0 % 04/10/22 04:24 Monocytes % (Manual) 3.0 % (0.0-7.3) 04/10/22 04:24 Eosinophils % (Manual) 0 % (0.0-4.3) 04/10/22 04:24 Basophils % (Manual) 0 % (0.0-1.8) 04/10/22 04:24 Metamyelocytes % 0 % 04/10/22 04:24 Myelocytes % 0 % 04/10/22 04:24 Promyelocytes % 0 % 04/10/22 04:24 Blast Cells % 0 % 04/10/22 04:24 Nucleated RBC % Not Reportable 04/10/22 04:24 Seg Neutrophils # 14.6 K/mm3 (1.8-7.7) H 04/12/22 00:01 Seg Neutrophils # Man 15.4 K/mm3 (1.8-7.7) H 04/10/22 04:24 Band Neutrophils # 0.0 K/mm3 04/10/22 04:24 Lymphocytes # (Manual) 0.5 K/mm3 (1.2-5.4) L 04/10/22 04:24 Abs React Lymphs (Man) 0.0 K/mm3 04/10/22 04:24 Monocytes # (Manual) 0.5 K/mm3 (0.0-0.8) 04/10/22 04:24 Eosinophils # (Manual) 0.0 K/mm3 (0.0-0.4) 04/10/22 04:24 Basophils # (Manual) 0.0 K/mm3 (0.0-0.1) 04/10/22 04:24 Metamyelocytes # 0.0 K/mm3 04/10/22 04:24 Myelocytes # 0.0 K/mm3 04/10/22 04:24 Promyelocytes # 0.0 K/mm3 04/10/22 04:24 Blast Cells # 0.0 K/mm3 04/10/22 04:24 WBC Morphology Not Reportable 04/10/22 04:24 Hypersegmented Neuts Not Reportable 04/10/22 04:24 Hyposegmented Neuts Not Reportable 04/10/22 04:24 Hypogranular Neuts Not Reportable 04/10/22 04:24 Smudge Cells Not Reportable 04/10/22 04:24 Toxic Granulation Not Reportable 04/10/22 04:24 Toxic Vacuolation Not Reportable 04/10/22 04:24 Dohle Bodies Not Reportable 04/10/22 04:24 Pelger-Huet Anomaly Not Reportable 04/10/22 04:24 Aleja Rods Not Reportable 04/10/22 04:24 Platelet Estimate Consistent w auto 04/10/22 04:24 Clumped Platelets Not Reportable 04/10/22 04:24 Plt Clumps, EDTA Not Reportable 04/10/22 04:24 Large Platelets Not Reportable 04/10/22 04:24 Giant Platelets Rare 04/10/22 04:24 Platelet Satelliting Not Reportable 04/10/22 04:24 Plt Morphology Comment Not Reportable 04/10/22 04:24 RBC Morphology Normal 04/10/22 04:24 Dimorphic RBCs Not Reportable 04/10/22 04:24 Polychromasia Not Reportable 04/10/22 04:24 Hypochromasia Not Reportable 04/10/22 04:24 Poikilocytosis Not Reportable 04/10/22 04:24 Anisocytosis Not Reportable 04/10/22 04:24 Microcytosis Not Reportable 04/10/22 04:24 Macrocytosis Not Reportable 04/10/22 04:24 Spherocytes Not Reportable 04/10/22 04:24 Pappenheimer Bodies Not Reportable 04/10/22 04:24 Sickle Cells Not Reportable 04/10/22 04:24 Target Cells Not Reportable 04/10/22 04:24 Tear Drop Cells Not Reportable 04/10/22 04:24 Ovalocytes Not Reportable 04/10/22 04:24 Helmet Cells Not Reportable 04/10/22 04:24 Lao-Lismore Bodies Not Reportable 04/10/22 04:24 Cable Rings Not Reportable 04/10/22 04:24 Kake Cells Not Reportable 04/10/22 04:24 Bite Cells Not Reportable 04/10/22 04:24 Crenated Cell Not Reportable 04/10/22 04:24 Elliptocytes Not Reportable 04/10/22 04:24 Acanthocytes (Spur) Not Reportable 04/10/22 04:24 Rouleaux Not Reportable 04/10/22 04:24 Hemoglobin C Crystals Not Reportable 04/10/22 04:24 Schistocytes Not Reportable 04/10/22 04:24 Malaria parasites Not Reportable 04/10/22 04:24 Allan Bodies Not Reportable 04/10/22 04:24 Hem Pathologist Commnt No 04/10/22 04:24 PT 14.5 Sec. (12.2-14.9) 04/09/22 12:52 INR 1.02 (0.87-1.13) 04/09/22 12:52 D-Dimer 3804.33 ng/mlDDU (0-234) H 04/17/22 05:12 ABG pH 7.379 pH Units (7.350-7.450) 04/20/22 04:17 ABG pCO2 55.3 mm Hg 04/20/22 04:17 ABG pO2 86.0 mm Hg (80.0-90.0) 04/20/22 04:17 ABG HCO3 31.9 mmol/L (20.0-26.0) H 04/20/22 04:17 ABG O2 Saturation 96.8 % (95.0-99.0) 04/20/22 04:17 ABG O2 Content 13.8 (0.0-44) 04/20/22 04:17 ABG Base Excess 5.7 mmol/L (-2.0-3.0) H 04/20/22 04:17 ABG Hemoglobin 10.3 gm/dl (12.0-16.0) L 04/20/22 04:17 ABG Carboxyhemoglobin 1.7 % (0.0-5.0) 04/20/22 04:17 ABG Methemoglobin 0.6 % (0.0-1.5) 04/20/22 04:17 VBG pH 7.303 (7.320-7.420) L 04/09/22 12:52 Oxyhemoglobin 94.6 % (95.0-99.0) L 04/20/22 04:17 FiO2 40 % 04/20/22 04:17 Sodium 156 mmol/L (137-145) H 04/20/22 06:00 Potassium 4.6 mmol/L (3.6-5.0) 04/20/22 06:00 Chloride 118.3 mmol/L (98-107) H 04/20/22 06:00 Carbon Dioxide 34 mmol/L (22-30) H 04/20/22 06:00 Anion Gap 8 mmol/L 04/20/22 06:00 BUN 52 mg/dL (7-17) H 04/20/22 06:00 Creatinine 1.1 mg/dL (0.6-1.2) 04/20/22 06:00 Estimated GFR 58 ml/min 04/20/22 06:00 BUN/Creatinine Ratio 47 % 04/20/22 06:00 Glucose 246 mg/dL (65-100) H 04/20/22 06:00 POC Glucose 188 mg/dL (70-105) H 04/19/22 21:56 Osmolality 361 Mosm/kg 04/19/22 12:10 Lactic Acid 2.10 mmol/L (0.7-2.0) H* 04/15/22 12:00 Calcium 8.4 mg/dL (8.4-10.2) 04/20/22 06:00 Phosphorus 3.60 mg/dL (2.5-4.5) 04/14/22 07:28 Magnesium 2.90 mg/dL (1.7-2.3) H 04/14/22 07:28 Ferritin 570.8 ng/mL (10.0-200.0) H 04/18/22 05:41 Total Bilirubin 0.70 mg/dL (0.1-1.2) 04/19/22 04:00 Direct Bilirubin 0.5 mg/dL (0-0.2) H 04/16/22 04:00 Indirect Bilirubin 0.4 mg/dL 04/16/22 04:00 AST 77 units/L (5-40) H 04/19/22 04:00 ALT 208 units/L (7-56) H 04/19/22 04:00 Alkaline Phosphatase 126 units/L (35-129) 04/19/22 04:00 Ammonia 20.0 umol/L (25-60) L 04/09/22 12:52 Lactate Dehydrogenase 1473 units/L (91-180) H 04/18/22 05:41 Troponin T < 0.010 ng/mL (0.00-0.029) 04/09/22 12:52 C-Reactive Protein 0.80 mg/dL (0.00-1.30) 04/18/22 05:41 NT-Pro-B Natriuret Pep 101.1 pg/mL (0-900) 04/09/22 13:45 Total Protein 5.8 g/dL (6.3-8.2) L 04/19/22 04:00 Albumin 3.5 g/dL (3.9-5) L 04/19/22 04:00 Albumin/Globulin Ratio 1.5 % 04/19/22 04:00 Procalcitonin 3.13 ng/mL (<0.15) 04/10/22 11:47 TSH 1.560 mlU/mL (0.270-4.200) 04/09/22 12:52 Free T4 1.33 ng/dL (0.76-1.46) 04/09/22 12:52 Urine Color Yellow (Yellow) 04/09/22 13:24 Urine Turbidity Clear (Clear) 04/09/22 13:24 Urine pH 5.0 (5.0-7.0) 04/09/22 13:24 Ur Specific [place] 1.011 (1.003-1.030) 04/09/22 13:24 Urine Protein 30 mg/dl mg/dL (Negative) 04/09/22 13:24 Urine Glucose (UA) Neg mg/dL (Negative) 04/09/22 13:24 Urine Ketones 20 mg/dL (Negative) 04/09/22 13:24 Urine Blood Neg (Negative) 04/09/22 13:24 Urine Nitrite Neg (Negative) 04/09/22 13:24 Urine Bilirubin Neg (Negative) 04/09/22 13:24 Urine Urobilinogen 4.0 mg/dL (<2.0) 04/09/22 13:24 Ur Leukocyte Esterase Neg (Negative) 04/09/22 13:24 Urine WBC (Auto) 2.0 /HPF (0.0-6.0) 04/09/22 13:24 Urine RBC (Auto) < 1.0 /HPF (0.0-6.0) 04/09/22 13:24 U Epithel Cells (Auto) < 1.0 /HPF (0-13.0) 04/09/22 13:24 Urine Mucus Few /HPF 04/09/22 13:24 Urine Eosinophils None seen (None Seen) 04/10/22 14:50 Urine Osmolality 415 Mosm/kg 04/19/22 22:32 Urine Total Volume 750 ml 04/11/22 11:23 Urine Creatinine 28.3 mg/dL (0.1-20.0) H 04/19/22 22:32 Ur Creatinine 24 Hour 1.2 (0.8-2.8) 04/11/22 11:23 Height (in) Not Reportable 04/11/22 11:23 Weight (lb) Not Reportable 04/11/22 11:23 Creatinine Clearance Not Reportable 04/11/22 11:23 Protein/Creatinin Ratio 0.77 04/10/22 14:50 Urine Sodium 89 mmol/L 04/19/22 22:32 Urine Total Protein 172 mg/dL (5-11.8) H 04/10/22 14:50 Random Vancomycin 11.9 ug/mL (0-40.0) 04/11/22 03:58 Urine Opiates Screen Presumptive negative 04/09/22 22:58 Urine Methadone Screen Presumptive negative 04/09/22 22:58 Ur Barbiturates Screen Presumptive negative 04/09/22 22:58 Ur Phencyclidine Scrn Presumptive negative 04/09/22 22:58 Ur Amphetamines Screen Presumptive negative 04/09/22 22:58 U Benzodiazepines Scrn Presumptive negative 04/09/22 22:58 Urine Cocaine Screen Presumptive negative 04/09/22 22:58 U Marijuana (THC) Screen Presumptive negative 04/09/22 22:58 Drugs of Abuse Note Disclamer 04/09/22 22:58 Coronavirus (PCR) Positive (Negative) A 04/09/22 13:02 Influenza A (RT-PCR) Negative (Negative) 04/09/22 14:15 Influenza B (RT-PCR) Negative (Negative) 04/09/22 14:15 Microbiology: Microbiology 04/17/22 18:14 Peripheral/Venous Blood Culture - Preliminary NO GROWTH AFTER 48 HOURS 04/17/22 18:14 Peripheral/Venous Blood Culture - Preliminary NO GROWTH AFTER 48 HOURS 04/18/22 Unknown Tracheal Aspirate Sputum Culture - Preliminary [place]/IV: Voiding Method Indwelling Catheter Active Medications - Current Medications Current Medications: Generic Name Dose Route Start Last Admin Trade Name Freq PRN Reason Stop Dose Admin Acetaminophen 650 mg 04/09/22 18:11 Acetaminophen 325 Mg Tab PO Q4H PRN Pain MILD(1-3)/Fever >100.5/CARCAMO Dextrose 0 ml 04/10/22 00:40 Dextrose 50% In Water (25gm) 50 Ml Syringe IV Q30MIN PRN Hypoglycemia Protocol Famotidine 10 mg 04/14/22 10:00 04/19/22 21:43 Famotidine 10 Mg Tab FEEDTUBE 10 mg BID JO ANN Administration Fentanyl 50 mcg 04/15/22 09:25 Fentanyl 100 Mcg/2 Ml Inj IV Q10MIN PRN ANALGESIA Heparin Sodium (Porcine) 5,000 unit 04/17/22 10:00 04/19/22 21:44 Heparin 5,000 Unit/1 Ml Vial SUB-Q 5,000 unit Q12HR JO ANN Administration Fentanyl Citrate 2,000 mcg in 100 mls @ 4.155 mls/hr 04/15/22 10:00 04/19/22 22:07 Fentanyl Drip Premix IV 1 mcg/kg/hr TITR JO ANN 4.155 mls/hr Administration Protocol 1 MCG/KG/HR Cefepime HCl 2 gm in 100 mls @ 200 mls/hr 04/16/22 19:00 04/19/22 21:38 Cefepime/Ns 2 Gm/100 Ml IV 200 mls/hr Q12H JO ANN Administration Protocol Dextrose 1,000 mls @ 100 mls/hr 04/19/22 10:00 04/20/22 01:08 D5w IV 04/20/22 19:59 100 mls/hr DIRECT JO ANN Administration Insulin Glargine 35 units 04/19/22 16:18 04/19/22 22:42 Insulin Glargine 100 Units/Ml SUB-Q 35 units QHS JO ANN Administration Insulin Human Lispro 0 unit 04/18/22 12:00 04/20/22 06:32 Insulin Lispro 100 Unit/Ml SUB-Q 4 unit Q6HR JO ANN Administration Protocol Ondansetron HCl 4 mg 04/09/22 18:11 Ondansetron 4 Mg/2 Ml Inj IV Q8H PRN Nausea And Vomiting Senna/Docusate Sodium 2 tab 04/15/22 14:00 04/19/22 21:43 Sennosides/Docusate Sodium 8.6/50 Mg Tab FEEDTUBE 2 tab BID JO ANN Administration Sodium Chloride 10 ml 04/09/22 22:00 04/20/22 01:09 Sodium Chloride 0.9% 10 Ml Flush Syringe IV 10 ml BID JO ANN Administration Sodium Chloride 10 ml 04/09/22 18:11 Sodium Chloride 0.9% 10 Ml Flush Syringe IV PRN PRN LINE FLUSH Nutrition/Malnutrition Assess - Dietary Evaluation Nutrition/Malnutrition Findings: Nutrition Notes Start: 04/12/22 10:07 Freq: Status: Active Protocol: Document 04/15/22 15:18 [facility] (Rec: 04/15/22 15:23 OHALL [id number]) Nutrition Notes Initial or Follow up Reassessment Current Diagnosis Acute Kidney Injury,Diabetes, Sepsis,Respiratory Failure Other Pertinent Diagnosis AMS, Bilat pneu, COVID-19 (+), Hypotension Current Diet TF - Glucerna 1.2 at 55ml/hr Labs/Tests Na 146 BUN 76 Cr 1.9 BG 214 Pertinent Medications Propofol at 9.972ml/hr ( provides 263 kcal) Height 5 ft 7 in Weight 83.1 kg [place] Body Weight (kg) 61.36 BMI 28.7 Weight change and time frame 98% energy 79% pro Weight Status Overweight Subjective/Other Information Pt remains on vent support; not on pressor support at this time. Renal function being monitored closely. Observed TF infusing at goal rate. Burn Absent Trauma Absent #1 Nutrition Diagnosis Inadequate oral intake As Evidenced by Signs and Symptoms EN support continues Diagnosis Progress(for reassessment Continues documentation) Is patient on ventilator? Yes Is Patient Ambulatory and/or Out of Bed No [facility] 7547.833 Calculation Used for Recommendations [facility] Additional Notes Pro needs 1.2-2g/k-166g/ day Fluid needs 1ml/kcal Nutrition Intervention Nutrition Support: Continue Glucerna 1.2 at 55ml/ hr with 100ml water flush q4h. Kcal 1,584 Protein (gm) 79 Carbohydrates (gm) 151 Fat (gm) 79 Fluid (mL) 1,063 Fiber (gm) 21 Goal #1 TF tolerance Goal #2 TF to meet at least 75% energy and pro needs Follow-Up By: 04/22/22 Additional Comments F/U: stable TF, vent status, renal function, propofol <JS HAIDER - Last Filed: 04/21/22 15:35> Assessment and Plan Assessment and plan: I saw and evaluated the patient. I agree with the findings and the plan of care as documented in the Nurse Practitioner's~note, with the following corrections and additions. Hospitalist Physical - Constitutional Vitals: Temp Pulse Resp BP Pulse Ox 99 F 112 H 21 159/83 99 04/21/22 11:53 04/21/22 15:00 04/21/22 15:00 04/21/22 15:00 04/21/22 15:00 HEART Score - HEART Score Troponin: Troponin T < 0.010 ng/mL (0.00-0.029) 04/09/22 12:52 Results - Labs CBC & Chem 7: 04/21/22 04:30 04/21/22 13:12 Labs: Laboratory Last Values WBC 14.8 K/mm3 (4.5-11.0) H 04/21/22 04:30 RBC 3.73 M/mm3 (3.65-5.03) 04/21/22 04:30 Hgb 10.6 gm/dl (10.1-14.3) 04/21/22 04:30 Hct 33.6 % (30.3-42.9) 04/21/22 04:30 MCV 90 fl (79-97) 04/21/22 04:30 MCH 28 pg (28-32) 04/21/22 04:30 MCHC 32 % (30-34) 04/21/22 04:30 RDW 15.9 % (13.2-15.2) H 04/21/22 04:30 Plt Count 109 K/mm3 (140-440) L 04/21/22 04:30 Lymph % (Auto) 5.7 % (13.4-35.0) L 04/12/22 00:01 Oliver % (Auto) 4.5 % (0.0-7.3) 04/12/22 00:01 Eos % (Auto) 0.0 % (0.0-4.3) 04/12/22 00:01 Baso % (Auto) 0.2 % (0.0-1.8) 04/12/22 00:01 Lymph # (Auto) 0.9 K/mm3 (1.2-5.4) L 04/12/22 00:01 [place] # (Auto) 0.7 K/mm3 (0.0-0.8) 04/12/22 00:01 Eos # (Auto) 0.0 K/mm3 (0.0-0.4) 04/12/22 00:01 Baso # (Auto) 0.0 K/mm3 (0.0-0.1) 04/12/22 00:01 Add Manual Diff Complete 04/10/22 04:24 Total Counted 100 04/10/22 04:24 Seg Neutrophils % 89.6 % (40.0-70.0) H 04/12/22 00:01 Seg Neuts % (Manual) 94.0 % (40.0-70.0) H 04/10/22 04:24 Band Neutrophils % 0 % 04/10/22 04:24 Lymphocytes % (Manual) 3.0 % (13.4-35.0) L 04/10/22 04:24 Reactive Lymphs % (Man) 0 % 04/10/22 04:24 Monocytes % (Manual) 3.0 % (0.0-7.3) 04/10/22 04:24 Eosinophils % (Manual) 0 % (0.0-4.3) 04/10/22 04:24 Basophils % (Manual) 0 % (0.0-1.8) 04/10/22 04:24 Metamyelocytes % 0 % 04/10/22 04:24 Myelocytes % 0 % 04/10/22 04:24 Promyelocytes % 0 % 04/10/22 04:24 Blast Cells % 0 % 04/10/22 04:24 Nucleated RBC % Not Reportable 04/10/22 04:24 Seg Neutrophils # 14.6 K/mm3 (1.8-7.7) H 04/12/22 00:01 Seg Neutrophils # Man 15.4 K/mm3 (1.8-7.7) H 04/10/22 04:24 Band Neutrophils # 0.0 K/mm3 04/10/22 04:24 Lymphocytes # (Manual) 0.5 K/mm3 (1.2-5.4) L 04/10/22 04:24 Abs React Lymphs (Man) 0.0 K/mm3 04/10/22 04:24 Monocytes # (Manual) 0.5 K/mm3 (0.0-0.8) 04/10/22 04:24 Eosinophils # (Manual) 0.0 K/mm3 (0.0-0.4) 04/10/22 04:24 Basophils # (Manual) 0.0 K/mm3 (0.0-0.1) 04/10/22 04:24 Metamyelocytes # 0.0 K/mm3 04/10/22 04:24 Myelocytes # 0.0 K/mm3 04/10/22 04:24 Promyelocytes # 0.0 K/mm3 04/10/22 04:24 Blast Cells # 0.0 K/mm3 04/10/22 04:24 WBC Morphology Not Reportable 04/10/22 04:24 Hypersegmented Neuts Not Reportable 04/10/22 04:24 Hyposegmented Neuts Not Reportable 04/10/22 04:24 Hypogranular Neuts Not Reportable 04/10/22 04:24 Smudge Cells Not Reportable 04/10/22 04:24 Toxic Granulation Not Reportable 04/10/22 04:24 Toxic Vacuolation Not Reportable 04/10/22 04:24 Dohle Bodies Not Reportable 04/10/22 04:24 Pelger-Huet Anomaly Not Reportable 04/10/22 04:24 Aleja Rods Not Reportable 04/10/22 04:24 Platelet Estimate Consistent w auto 04/10/22 04:24 Clumped Platelets Not Reportable 04/10/22 04:24 Plt Clumps, EDTA Not Reportable 04/10/22 04:24 Large Platelets Not Reportable 04/10/22 04:24 Giant Platelets Rare 04/10/22 04:24 Platelet Satelliting Not Reportable 04/10/22 04:24 Plt Morphology Comment Not Reportable 04/10/22 04:24 RBC Morphology Normal 04/10/22 04:24 Dimorphic RBCs Not Reportable 04/10/22 04:24 Polychromasia Not Reportable 04/10/22 04:24 Hypochromasia Not Reportable 04/10/22 04:24 Poikilocytosis Not Reportable 04/10/22 04:24 Anisocytosis Not Reportable 04/10/22 04:24 Microcytosis Not Reportable 04/10/22 04:24 Macrocytosis Not Reportable 04/10/22 04:24 Spherocytes Not Reportable 04/10/22 04:24 Pappenheimer Bodies Not Reportable 04/10/22 04:24 Sickle Cells Not Reportable 04/10/22 04:24 Target Cells Not Reportable 04/10/22 04:24 Tear Drop Cells Not Reportable 04/10/22 04:24 Ovalocytes Not Reportable 04/10/22 04:24 Helmet Cells Not Reportable 04/10/22 04:24 Lao-Lismore Bodies Not Reportable 04/10/22 04:24 Cable Rings Not Reportable 04/10/22 04:24 Kake Cells Not Reportable 04/10/22 04:24 Bite Cells Not Reportable 04/10/22 04:24 Crenated Cell Not Reportable 04/10/22 04:24 Elliptocytes Not Reportable 04/10/22 04:24 Acanthocytes (Spur) Not Reportable 04/10/22 04:24 Rouleaux Not Reportable 04/10/22 04:24 Hemoglobin C Crystals Not Reportable 04/10/22 04:24 Schistocytes Not Reportable 04/10/22 04:24 Malaria parasites Not Reportable 04/10/22 04:24 Allan Bodies Not Reportable 04/10/22 04:24 Hem Pathologist Commnt No 04/10/22 04:24 PT 14.5 Sec. (12.2-14.9) 04/09/22 12:52 INR 1.02 (0.87-1.13) 04/09/22 12:52 D-Dimer 3804.33 ng/mlDDU (0-234) H 04/17/22 05:12 ABG pH 7.379 pH Units (7.350-7.450) 04/20/22 04:17 ABG pCO2 55.3 mm Hg 04/20/22 04:17 ABG pO2 86.0 mm Hg (80.0-90.0) 04/20/22 04:17 ABG HCO3 31.9 mmol/L (20.0-26.0) H 04/20/22 04:17 ABG O2 Saturation 96.8 % (95.0-99.0) 04/20/22 04:17 ABG O2 Content 13.8 (0.0-44) 04/20/22 04:17 ABG Base Excess 5.7 mmol/L (-2.0-3.0) H 04/20/22 04:17 ABG Hemoglobin 10.3 gm/dl (12.0-16.0) L 04/20/22 04:17 ABG Carboxyhemoglobin 1.7 % (0.0-5.0) 04/20/22 04:17 ABG Methemoglobin 0.6 % (0.0-1.5) 04/20/22 04:17 VBG pH 7.303 (7.320-7.420) L 04/09/22 12:52 Oxyhemoglobin 94.6 % (95.0-99.0) L 04/20/22 04:17 FiO2 40 % 04/20/22 04:17 Sodium 153 mmol/L (137-145) H 04/21/22 13:12 Potassium 4.4 mmol/L (3.6-5.0) 04/21/22 04:30 Chloride 117.4 mmol/L (98-107) H 04/21/22 04:30 Carbon Dioxide 30 mmol/L (22-30) 04/21/22 04:30 Anion Gap 12 mmol/L 04/21/22 04:30 BUN 46 mg/dL (7-17) H 04/21/22 04:30 Creatinine 1.1 mg/dL (0.6-1.2) 04/21/22 04:30 Estimated GFR 58 ml/min 04/21/22 04:30 BUN/Creatinine Ratio 42 % 04/21/22 04:30 Glucose 178 mg/dL (65-100) H 04/21/22 04:30 POC Glucose 205 mg/dL (70-105) H 04/21/22 00:09 Osmolality 361 Mosm/kg 04/19/22 12:10 Lactic Acid 2.10 mmol/L (0.7-2.0) H* 04/15/22 12:00 Calcium 8.6 mg/dL (8.4-10.2) 04/21/22 04:30 Phosphorus 3.60 mg/dL (2.5-4.5) 04/14/22 07:28 Magnesium 2.90 mg/dL (1.7-2.3) H 04/14/22 07:28 Ferritin 570.8 ng/mL (10.0-200.0) H 04/18/22 05:41 Total Bilirubin 0.70 mg/dL (0.1-1.2) 04/19/22 04:00 Direct Bilirubin 0.5 mg/dL (0-0.2) H 04/16/22 04:00 Indirect Bilirubin 0.4 mg/dL 04/16/22 04:00 AST 77 units/L (5-40) H 04/19/22 04:00 ALT 208 units/L (7-56) H 04/19/22 04:00 Alkaline Phosphatase 126 units/L (35-129) 04/19/22 04:00 Ammonia 20.0 umol/L (25-60) L 04/09/22 12:52 Lactate Dehydrogenase 1473 units/L (91-180) H 04/18/22 05:41 Troponin T < 0.010 ng/mL (0.00-0.029) 04/09/22 12:52 C-Reactive Protein 0.80 mg/dL (0.00-1.30) 04/18/22 05:41 NT-Pro-B Natriuret Pep 101.1 pg/mL (0-900) 04/09/22 13:45 Total Protein 5.8 g/dL (6.3-8.2) L 04/19/22 04:00 Albumin 3.5 g/dL (3.9-5) L 04/19/22 04:00 Albumin/Globulin Ratio 1.5 % 04/19/22 04:00 Procalcitonin 3.13 ng/mL (<0.15) 04/10/22 11:47 TSH 1.560 mlU/mL (0.270-4.200) 04/09/22 12:52 Free T4 1.33 ng/dL (0.76-1.46) 04/09/22 12:52 Urine Color Yellow (Yellow) 04/09/22 13:24 Urine Turbidity Clear (Clear) 04/09/22 13:24 Urine pH 5.0 (5.0-7.0) 04/09/22 13:24 Ur Specific [place] 1.011 (1.003-1.030) 04/09/22 13:24 Urine Protein 30 mg/dl mg/dL (Negative) 04/09/22 13:24 Urine Glucose (UA) Neg mg/dL (Negative) 04/09/22 13:24 Urine Ketones 20 mg/dL (Negative) 04/09/22 13:24 Urine Blood Neg (Negative) 04/09/22 13:24 Urine Nitrite Neg (Negative) 04/09/22 13:24 Urine Bilirubin Neg (Negative) 04/09/22 13:24 Urine Urobilinogen 4.0 mg/dL (<2.0) 04/09/22 13:24 Ur Leukocyte Esterase Neg (Negative) 04/09/22 13:24 Urine WBC (Auto) 2.0 /HPF (0.0-6.0) 04/09/22 13:24 Urine RBC (Auto) < 1.0 /HPF (0.0-6.0) 04/09/22 13:24 U Epithel Cells (Auto) < 1.0 /HPF (0-13.0) 04/09/22 13:24 Urine Mucus Few /HPF 04/09/22 13:24 Urine Eosinophils None seen (None Seen) 04/10/22 14:50 Urine Osmolality 415 Mosm/kg 04/19/22 22:32 Urine Total Volume 750 ml 04/11/22 11:23 Urine Creatinine 28.3 mg/dL (0.1-20.0) H 04/19/22 22:32 Ur Creatinine 24 Hour 1.2 (0.8-2.8) 04/11/22 11:23 Height (in) Not Reportable 04/11/22 11:23 Weight (lb) Not Reportable 04/11/22 11:23 Creatinine Clearance Not Reportable 04/11/22 11:23 Protein/Creatinin Ratio 0.77 04/10/22 14:50 Urine Sodium 89 mmol/L 04/19/22 22:32 Urine Total Protein 172 mg/dL (5-11.8) H 04/10/22 14:50 Random Vancomycin 11.9 ug/mL (0-40.0) 04/11/22 03:58 Urine Opiates Screen Presumptive negative 04/09/22 22:58 Urine Methadone Screen Presumptive negative 04/09/22 22:58 Ur Barbiturates Screen Presumptive negative 04/09/22 22:58 Ur Phencyclidine Scrn Presumptive negative 04/09/22 22:58 Ur Amphetamines Screen Presumptive negative 04/09/22 22:58 U Benzodiazepines Scrn Presumptive negative 04/09/22 22:58 Urine Cocaine Screen Presumptive negative 04/09/22 22:58 U Marijuana (THC) Screen Presumptive negative 04/09/22 22:58 Drugs of Abuse Note Disclamer 04/09/22 22:58 Coronavirus (PCR) Positive (Negative) A 04/09/22 13:02 Influenza A (RT-PCR) Negative (Negative) 04/09/22 14:15 Influenza B (RT-PCR) Negative (Negative) 04/09/22 14:15 Microbiology: Microbiology 04/17/22 18:14 Peripheral/Venous Blood Culture - Preliminary NO GROWTH AFTER 72 HOURS 04/17/22 18:14 Peripheral/Venous Blood Culture - Preliminary NO GROWTH AFTER 72 HOURS 04/18/22 Unknown Tracheal Aspirate Sputum Culture - Final Kelli Albicans [place]/IV: Voiding Method Indwelling Catheter Active Medications - Current Medications Current Medications: Generic Name Dose Route Start Last Admin Trade Name Freq PRN Reason Stop Dose Admin Acetaminophen 650 mg 04/09/22 18:11 Acetaminophen 325 Mg Tab PO Q4H PRN Pain MILD(1-3)/Fever >100.5/CARCAMO Dextrose 0 ml 04/10/22 00:40 Dextrose 50% In Water (25gm) 50 Ml Syringe IV Q30MIN PRN Hypoglycemia Protocol Famotidine 10 mg 04/14/22 10:00 04/21/22 09:15 Famotidine 10 Mg Tab FEEDTUBE 10 mg BID JO ANN Administration Fentanyl 50 mcg 04/15/22 09:25 Fentanyl 100 Mcg/2 Ml Inj IV Q10MIN PRN ANALGESIA Heparin Sodium (Porcine) 5,000 unit 04/17/22 10:00 04/21/22 09:06 Heparin 5,000 Unit/1 Ml Vial SUB-Q 5,000 unit Q12HR JO ANN Administration Fentanyl Citrate 2,000 mcg in 100 mls @ 4.155 mls/hr 04/15/22 10:00 04/21/22 15:16 Fentanyl Drip Premix IV 0 mcg/kg/hr TITR JO ANN 0 mls/hr Titration Protocol 1 MCG/KG/HR Cefepime HCl 2 gm in 100 mls @ 200 mls/hr 04/16/22 19:00 04/21/22 06:00 Cefepime/Ns 2 Gm/100 Ml IV 200 mls/hr Q12H JO ANN Administration Protocol Insulin Glargine 40 units 04/20/22 22:00 04/20/22 22:00 Insulin Glargine 100 Units/Ml SUB-Q 40 units QHS JO ANN Administration Insulin Human Lispro 0 unit 04/18/22 12:00 04/21/22 11:55 Insulin Lispro 100 Unit/Ml SUB-Q Not Given Q6HR [facility] Protocol Metoclopramide HCl 5 mg 04/21/22 14:00 04/21/22 13:15 Metoclopramide 10 Mg/2 Ml Inj IV 04/23/22 13:59 5 mg Q8H JO ANN Administration Ondansetron HCl 4 mg 04/09/22 18:11 Ondansetron 4 Mg/2 Ml Inj IV Q8H PRN Nausea And Vomiting Senna/Docusate Sodium 2 tab 04/15/22 14:00 04/21/22 09:15 Sennosides/Docusate Sodium 8.6/50 Mg Tab FEEDTUBE 2 tab BID JO ANN Administration Sodium Chloride 10 ml 04/09/22 22:00 04/21/22 09:07 Sodium Chloride 0.9% 10 Ml Flush Syringe IV 10 ml BID JO ANN Administration Sodium Chloride 10 ml 04/09/22 18:11 Sodium Chloride 0.9% 10 Ml Flush Syringe IV PRN PRN LINE FLUSH Nutrition/Malnutrition Assess - Dietary Evaluation Nutrition/Malnutrition Findings: Nutrition Notes Start: 04/12/22 10:07 Freq: Status: Active Protocol: Document 04/15/22 15:18 RYDER (Rec: 04/15/22 15:23 [facility] [id number]) Nutrition Notes Initial or Follow up Reassessment Current Diagnosis Acute Kidney Injury,Diabetes, Sepsis,Respiratory Failure Other Pertinent Diagnosis AMS, Bilat pneu, COVID-19 (+), Hypotension Current Diet TF - Glucerna 1.2 at 55ml/hr Labs/Tests Na 146 BUN 76 Cr 1.9 BG 214 Pertinent Medications Propofol at 9.972ml/hr ( provides 263 kcal) Height 5 ft 7 in Weight 83.1 kg [place] Body Weight (kg) 61.36 BMI 28.7 Weight change and time frame 98% energy 79% pro Weight Status Overweight Subjective/Other Information Pt remains on vent support; not on pressor support at this time. Renal function being monitored closely. Observed TF infusing at goal rate. Burn Absent Trauma Absent #1 Nutrition Diagnosis Inadequate oral intake As Evidenced by Signs and Symptoms EN support continues Diagnosis Progress(for reassessment Continues documentation) Is patient on ventilator? Yes Is Patient Ambulatory and/or Out of Bed No REE-([place]-confined to bed) [phone] Calculation Used for Recommendations [place] Additional Notes Pro needs 1.2-2g/k-166g/ day Fluid needs 1ml/kcal Nutrition Intervention Nutrition Support: Continue Glucerna 1.2 at 55ml/ hr with 100ml water flush q4h. Kcal 1,584 Protein (gm) 79 Carbohydrates (gm) 151 Fat (gm) 79 Fluid (mL) 1,063 Fiber (gm) 21 Goal #1 TF tolerance Goal #2 TF to meet at least 75% energy and pro needs Follow-Up By: 04/22/22 Additional Comments F/U: stable TF, vent status, renal function, propofol
--- NOTE | 2022-04-20 11:01 | Progress Note ---
Assessment and Plan - Patient Problems (1) Hypernatremia Current Visit: Yes Status: Acute (2) Thrombocytopenia Current Visit: Yes Status: Acute (3) Leukocytosis Current Visit: Yes Status: Acute (4) Acute encephalopathy Current Visit: Yes Status: Acute (5) Acute kidney injury Current Visit: Yes Status: Acute (6) Acute respiratory failure with hypoxia Current Visit: Yes Status: Acute (7) Bilateral pneumonia Current Visit: Yes Status: Acute (8) Septic shock Current Visit: Yes Status: Acute (9) T2DM (type 2 diabetes mellitus) Current Visit: Yes Status: Chronic Qualifiers: Diabetes mellitus usp insulin use: unspecified usp insulin use status (10) ARDS (adult respiratory distress syndrome) Current Visit: Yes Status: Acute (11) COVID-19 Current Visit: Yes Status: Acute Subjective Principal diagnosis: encephalopathy Interval history: on vent tv 400 [id number] peep 6 40% Objective Vital Signs - 12hr 04/19/22 04/19/22 04/20/22 23:01 23:56 00:00 Temperature 96.5 F L Pulse Rate 113 H 112 H 110 H Pulse Rate [ 115 H From Monitor] Respiratory 21 20 Rate Blood Pressure 157/74 134/68 O2 Sat by Pulse 96 97 98 Oximetry 04/20/22 04/20/22 04/20/22 00:01 01:01 02:01 Temperature Pulse Rate 111 H 112 H 112 H Pulse Rate [ From Monitor] Respiratory 19 21 19 Rate Blood Pressure 134/68 136/69 152/77 O2 Sat by Pulse 97 94 98 Oximetry 04/20/22 04/20/22 04/20/22 03:00 04:00 04:17 Temperature Pulse Rate 110 H 105 H 107 H Pulse Rate [ From Monitor] Respiratory 19 18 Rate Blood Pressure 144/71 144/71 O2 Sat by Pulse 97 99 98 Oximetry 04/20/22 04/20/22 04/20/22 05:00 06:00 07:00 Temperature Pulse Rate 110 H 108 H 111 H Pulse Rate [ From Monitor] Respiratory 20 21 20 Rate Blood Pressure 150/76 155/74 156/82 O2 Sat by Pulse 98 98 96 Oximetry 04/20/22 08:22 Temperature Pulse Rate 112 H Pulse Rate [ From Monitor] Respiratory Rate Blood Pressure 155/76 O2 Sat by Pulse 98 Oximetry Constitutional: other (on vent orally intubated eyes open) Eyes: non-icteric, other (sceloedema on rt) ENT: oropharynx moist Ascultation: Bilateral: diminished breath sounds Cardiovascular: regular rate and rhythm Gastrointestinal: normoactive bowel sounds Integumentary: normal Extremities: no cyanosis CBC and BMP: 04/20/22 06:00 04/20/22 06:00 ABG, PT/INR, D-dimer: ABG ABG pH 7.379 pH Units (7.350-7.450) 04/20/22 04:17 ABG pCO2 55.3 mm Hg 04/20/22 04:17 ABG pO2 86.0 mm Hg (80.0-90.0) 04/20/22 04:17 ABG O2 Saturation 96.8 % (95.0-99.0) 04/20/22 04:17 PT/INR, D-dimer PT 14.5 Sec. (12.2-14.9) 04/09/22 12:52 INR 1.02 (0.87-1.13) 04/09/22 12:52 D-Dimer 3804.33 ng/mlDDU (0-234) H 04/17/22 05:12 Abnormal lab findings: Abnormal Labs 04/09/22 04/09/22 04/09/22 11:59 12:52 12:52 WBC RBC Hgb Hct RDW 15.3 H Plt Count Lymph % (Auto) 8.4 L Lymph # (Auto) 0.7 L Seg Neutrophils % 84.6 H Seg Neuts % (Manual) Lymphocytes % (Manual) Seg Neutrophils # Seg Neutrophils # Man Lymphocytes # (Manual) D-Dimer ABG pH ABG pO2 ABG HCO3 ABG O2 Saturation ABG Base Excess ABG Hemoglobin VBG pH Oxyhemoglobin Sodium Potassium Chloride 112.7 H Carbon Dioxide 18 L BUN Creatinine 2.0 H Glucose 204 H POC Glucose 203 H Lactic Acid Calcium Phosphorus Magnesium Ferritin Total Bilirubin 1.30 H Direct Bilirubin AST 47 H ALT Ammonia Lactate Dehydrogenase C-Reactive Protein Total Protein Albumin Urine Creatinine Urine Total Protein Coronavirus (PCR) 04/09/22 04/09/22 04/09/22 12:52 12:52 13:02 WBC RBC Hgb Hct RDW Plt Count Lymph % (Auto) Lymph # (Auto) Seg Neutrophils % Seg Neuts % (Manual) Lymphocytes % (Manual) Seg Neutrophils # Seg Neutrophils # Man Lymphocytes # (Manual) D-Dimer ABG pH ABG pO2 ABG HCO3 ABG O2 Saturation ABG Base Excess ABG Hemoglobin VBG pH 7.303 L Oxyhemoglobin Sodium Potassium Chloride Carbon Dioxide BUN Creatinine Glucose POC Glucose Lactic Acid Calcium Phosphorus Magnesium Ferritin Total Bilirubin Direct Bilirubin AST ALT Ammonia 20.0 L Lactate Dehydrogenase C-Reactive Protein Total Protein Albumin Urine Creatinine Urine Total Protein Coronavirus (PCR) Positive A 04/09/22 04/09/22 04/09/22 15:49 22:15 22:58 WBC RBC Hgb Hct RDW Plt Count Lymph % (Auto) Lymph # (Auto) Seg Neutrophils % Seg Neuts % (Manual) Lymphocytes % (Manual) Seg Neutrophils # Seg Neutrophils # Man Lymphocytes # (Manual) D-Dimer ABG pH 7.097 L* ABG pO2 188.8 H ABG HCO3 7.4 L ABG O2 Saturation 99.1 H ABG Base Excess -20.7 L ABG Hemoglobin VBG pH Oxyhemoglobin Sodium Potassium Chloride 108.8 H Carbon Dioxide 10 L D BUN 20 H Creatinine 2.6 H Glucose 465 H POC Glucose Lactic Acid 2.70 H* Calcium 7.4 L Phosphorus Magnesium Ferritin Total Bilirubin Direct Bilirubin AST ALT Ammonia Lactate Dehydrogenase C-Reactive Protein Total Protein Albumin Urine Creatinine Urine Total Protein Coronavirus (PCR) 04/09/22 04/09/22 04/10/22 23:19 Unknown 00:03 WBC RBC Hgb Hct RDW Plt Count Lymph % (Auto) Lymph # (Auto) Seg Neutrophils % Seg Neuts % (Manual) Lymphocytes % (Manual) Seg Neutrophils # Seg Neutrophils # Man Lymphocytes # (Manual) D-Dimer ABG pH ABG pO2 ABG HCO3 ABG O2 Saturation ABG Base Excess ABG Hemoglobin VBG pH Oxyhemoglobin Sodium Potassium Chloride Carbon Dioxide BUN Creatinine Glucose POC Glucose 356 H Lactic Acid 7.50 H* 6.10 H* Calcium Phosphorus Magnesium Ferritin Total Bilirubin Direct Bilirubin AST ALT Ammonia Lactate Dehydrogenase C-Reactive Protein Total Protein Albumin Urine Creatinine Urine Total Protein Coronavirus (PCR) 04/10/22 04/10/22 04/10/22 02:16 03:03 04:00 WBC RBC Hgb Hct RDW Plt Count Lymph % (Auto) Lymph # (Auto) Seg Neutrophils % Seg Neuts % (Manual) Lymphocytes % (Manual) Seg Neutrophils # Seg Neutrophils # Man Lymphocytes # (Manual) D-Dimer ABG pH ABG pO2 ABG HCO3 ABG O2 Saturation ABG Base Excess ABG Hemoglobin VBG pH Oxyhemoglobin Sodium Potassium Chloride Carbon Dioxide BUN Creatinine Glucose POC Glucose 317 H 325 H 308 H Lactic Acid Calcium Phosphorus Magnesium Ferritin Total Bilirubin Direct Bilirubin AST ALT Ammonia Lactate Dehydrogenase C-Reactive Protein Total Protein Albumin Urine Creatinine Urine Total Protein Coronavirus (PCR) 04/10/22 04/10/22 04/10/22 04:24 04:24 04:24 WBC 16.4 H RBC Hgb Hct RDW 16.2 H Plt Count Lymph % (Auto) Lymph # (Auto) Seg Neutrophils % Seg Neuts % (Manual) 94.0 H Lymphocytes % (Manual) 3.0 L Seg Neutrophils # Seg Neutrophils # Man 15.4 H Lymphocytes # (Manual) 0.5 L D-Dimer ABG pH ABG pO2 ABG HCO3 ABG O2 Saturation ABG Base Excess ABG Hemoglobin VBG pH Oxyhemoglobin Sodium Potassium 2.9 L* D Chloride 116.1 H Carbon Dioxide 11 L BUN 19 H Creatinine 2.5 H Glucose 376 H POC Glucose Lactic Acid Calcium 6.5 L Phosphorus 1.40 L Magnesium 1.60 L Ferritin Total Bilirubin Direct Bilirubin AST 107 H ALT 64 H Ammonia Lactate Dehydrogenase C-Reactive Protein Total Protein 5.5 L Albumin 2.8 L Urine Creatinine Urine Total Protein Coronavirus (PCR) 04/10/22 04/10/22 04/10/22 04:25 05:17 06:00 WBC RBC Hgb Hct RDW Plt Count Lymph % (Auto) Lymph # (Auto) Seg Neutrophils % Seg Neuts % (Manual) Lymphocytes % (Manual) Seg Neutrophils # Seg Neutrophils # Man Lymphocytes # (Manual) D-Dimer ABG pH 7.095 L* ABG pO2 112.3 H ABG HCO3 8.7 L ABG O2 Saturation ABG Base Excess -19.7 L ABG Hemoglobin VBG pH Oxyhemoglobin Sodium Potassium Chloride Carbon Dioxide BUN Creatinine Glucose POC Glucose 343 H 278 H Lactic Acid Calcium Phosphorus Magnesium Ferritin Total Bilirubin Direct Bilirubin AST ALT Ammonia Lactate Dehydrogenase C-Reactive Protein Total Protein Albumin Urine Creatinine Urine Total Protein Coronavirus (PCR) 04/10/22 04/10/22 04/10/22 06:53 07:54 08:58 WBC RBC Hgb Hct RDW Plt Count Lymph % (Auto) Lymph # (Auto) Seg Neutrophils % Seg Neuts % (Manual) Lymphocytes % (Manual) Seg Neutrophils # Seg Neutrophils # Man Lymphocytes # (Manual) D-Dimer ABG pH ABG pO2 ABG HCO3 ABG O2 Saturation ABG Base Excess ABG Hemoglobin VBG pH Oxyhemoglobin Sodium Potassium Chloride Carbon Dioxide BUN Creatinine Glucose POC Glucose 262 H 245 H 215 H Lactic Acid Calcium Phosphorus Magnesium Ferritin Total Bilirubin Direct Bilirubin AST ALT Ammonia Lactate Dehydrogenase C-Reactive Protein Total Protein Albumin Urine Creatinine Urine Total Protein Coronavirus (PCR) 04/10/22 04/10/22 04/10/22 10:12 10:51 11:47 WBC RBC Hgb Hct RDW Plt Count Lymph % (Auto) Lymph # (Auto) Seg Neutrophils % Seg Neuts % (Manual) Lymphocytes % (Manual) Seg Neutrophils # Seg Neutrophils # Man Lymphocytes # (Manual) D-Dimer ABG pH ABG pO2 ABG HCO3 ABG O2 Saturation ABG Base Excess ABG Hemoglobin VBG pH Oxyhemoglobin Sodium 148 H Potassium 3.4 L Chloride 116.7 H Carbon Dioxide 15 L BUN 22 H Creatinine 2.7 H Glucose 190 H POC Glucose 206 H 176 H Lactic Acid Calcium 6.9 L Phosphorus Magnesium Ferritin Total Bilirubin Direct Bilirubin AST ALT Ammonia Lactate Dehydrogenase C-Reactive Protein Total Protein Albumin Urine Creatinine Urine Total Protein Coronavirus (PCR) 04/10/22 04/10/22 04/10/22 11:47 11:47 12:02 WBC RBC Hgb Hct RDW Plt Count Lymph % (Auto) Lymph # (Auto) Seg Neutrophils % Seg Neuts % (Manual) Lymphocytes % (Manual) Seg Neutrophils # Seg Neutrophils # Man Lymphocytes # (Manual) D-Dimer ABG pH ABG pO2 ABG HCO3 ABG O2 Saturation ABG Base Excess ABG Hemoglobin VBG pH Oxyhemoglobin Sodium Potassium Chloride Carbon Dioxide BUN Creatinine Glucose POC Glucose 178 H Lactic Acid Calcium Phosphorus Magnesium Ferritin 1218.0 H Total Bilirubin Direct Bilirubin AST ALT Ammonia Lactate Dehydrogenase 482 H C-Reactive Protein 11.30 H Total Protein Albumin Urine Creatinine Urine Total Protein Coronavirus (PCR) 04/10/22 04/10/22 04/10/22 13:13 13:58 14:50 WBC RBC Hgb Hct RDW Plt Count Lymph % (Auto) Lymph # (Auto) Seg Neutrophils % Seg Neuts % (Manual) Lymphocytes % (Manual) Seg Neutrophils # Seg Neutrophils # Man Lymphocytes # (Manual) D-Dimer ABG pH ABG pO2 ABG HCO3 ABG O2 Saturation ABG Base Excess ABG Hemoglobin VBG pH Oxyhemoglobin Sodium Potassium Chloride Carbon Dioxide BUN Creatinine Glucose POC Glucose 160 H 150 H Lactic Acid Calcium Phosphorus Magnesium Ferritin Total Bilirubin Direct Bilirubin AST ALT Ammonia Lactate Dehydrogenase C-Reactive Protein Total Protein Albumin Urine Creatinine 224.2 H Urine Total Protein 172 H Coronavirus (PCR) 04/10/22 04/10/22 04/10/22 15:24 16:38 16:56 WBC RBC Hgb Hct RDW Plt Count Lymph % (Auto) Lymph # (Auto) Seg Neutrophils % Seg Neuts % (Manual) Lymphocytes % (Manual) Seg Neutrophils # Seg Neutrophils # Man Lymphocytes # (Manual) D-Dimer ABG pH ABG pO2 ABG HCO3 ABG O2 Saturation ABG Base Excess ABG Hemoglobin VBG pH Oxyhemoglobin Sodium Potassium Chloride Carbon Dioxide BUN Creatinine Glucose POC Glucose 140 H 154 H 149 H Lactic Acid Calcium Phosphorus Magnesium Ferritin Total Bilirubin Direct Bilirubin AST ALT Ammonia Lactate Dehydrogenase C-Reactive Protein Total Protein Albumin Urine Creatinine Urine Total Protein Coronavirus (PCR) 04/10/22 04/10/22 04/10/22 18:21 19:21 20:02 WBC RBC Hgb Hct RDW Plt Count Lymph % (Auto) Lymph # (Auto) Seg Neutrophils % Seg Neuts % (Manual) Lymphocytes % (Manual) Seg Neutrophils # Seg Neutrophils # Man Lymphocytes # (Manual) D-Dimer ABG pH ABG pO2 ABG HCO3 ABG O2 Saturation ABG Base Excess ABG Hemoglobin VBG pH Oxyhemoglobin Sodium Potassium Chloride Carbon Dioxide BUN Creatinine Glucose POC Glucose 141 H 126 H 139 H Lactic Acid Calcium Phosphorus Magnesium Ferritin Total Bilirubin Direct Bilirubin AST ALT Ammonia Lactate Dehydrogenase C-Reactive Protein Total Protein Albumin Urine Creatinine Urine Total Protein Coronavirus (PCR) 04/10/22 04/10/22 04/10/22 21:04 21:58 22:20 WBC RBC Hgb Hct RDW Plt Count Lymph % (Auto) Lymph # (Auto) Seg Neutrophils % Seg Neuts % (Manual) Lymphocytes % (Manual) Seg Neutrophils # Seg Neutrophils # Man Lymphocytes # (Manual) D-Dimer ABG pH ABG pO2 ABG HCO3 ABG O2 Saturation ABG Base Excess ABG Hemoglobin VBG pH Oxyhemoglobin Sodium Potassium Chloride 114.5 H Carbon Dioxide 17 L BUN 24 H Creatinine 2.5 H Glucose 165 H POC Glucose 144 H 161 H Lactic Acid Calcium 6.5 L Phosphorus Magnesium Ferritin Total Bilirubin Direct Bilirubin AST ALT Ammonia Lactate Dehydrogenase C-Reactive Protein Total Protein Albumin Urine Creatinine Urine Total Protein Coronavirus (PCR) 04/10/22 04/11/22 04/11/22 23:02 00:08 01:05 WBC RBC Hgb Hct RDW Plt Count Lymph % (Auto) Lymph # (Auto) Seg Neutrophils % Seg Neuts % (Manual) Lymphocytes % (Manual) Seg Neutrophils # Seg Neutrophils # Man Lymphocytes # (Manual) D-Dimer ABG pH ABG pO2 ABG HCO3 ABG O2 Saturation ABG Base Excess ABG Hemoglobin VBG pH Oxyhemoglobin Sodium Potassium Chloride Carbon Dioxide BUN Creatinine Glucose POC Glucose 160 H 148 H 156 H Lactic Acid Calcium Phosphorus Magnesium Ferritin Total Bilirubin Direct Bilirubin AST ALT Ammonia Lactate Dehydrogenase C-Reactive Protein Total Protein Albumin Urine Creatinine Urine Total Protein Coronavirus (PCR) 04/11/22 04/11/22 04/11/22 01:30 02:05 03:04 WBC RBC Hgb Hct RDW Plt Count Lymph % (Auto) Lymph # (Auto) Seg Neutrophils % Seg Neuts % (Manual) Lymphocytes % (Manual) Seg Neutrophils # Seg Neutrophils # Man Lymphocytes # (Manual) D-Dimer ABG pH ABG pO2 75.1 L ABG HCO3 17.2 L ABG O2 Saturation ABG Base Excess -5.8 L ABG Hemoglobin 11.5 L VBG pH Oxyhemoglobin Sodium Potassium Chloride Carbon Dioxide BUN Creatinine Glucose POC Glucose 150 H 168 H Lactic Acid Calcium Phosphorus Magnesium Ferritin Total Bilirubin Direct Bilirubin AST ALT Ammonia Lactate Dehydrogenase C-Reactive Protein Total Protein Albumin Urine Creatinine Urine Total Protein Coronavirus (PCR) 04/11/22 04/11/22 04/11/22 03:58 03:58 04:05 WBC 12.2 H RBC Hgb Hct RDW 15.7 H Plt Count Lymph % (Auto) Lymph # (Auto) Seg Neutrophils % Seg Neuts % (Manual) Lymphocytes % (Manual) Seg Neutrophils # Seg Neutrophils # Man Lymphocytes # (Manual) D-Dimer ABG pH ABG pO2 ABG HCO3 ABG O2 Saturation ABG Base Excess ABG Hemoglobin VBG pH Oxyhemoglobin Sodium 147 H Potassium Chloride 114.2 H Carbon Dioxide 19 L BUN 26 H Creatinine 2.5 H Glucose 154 H POC Glucose 151 H Lactic Acid Calcium 6.8 L Phosphorus Magnesium Ferritin Total Bilirubin Direct Bilirubin AST 106 H ALT 60 H Ammonia Lactate Dehydrogenase C-Reactive Protein Total Protein 5.6 L Albumin 2.7 L Urine Creatinine Urine Total Protein Coronavirus (PCR) 04/11/22 04/11/22 04/11/22 05:14 06:19 08:23 WBC RBC Hgb Hct RDW Plt Count Lymph % (Auto) Lymph # (Auto) Seg Neutrophils % Seg Neuts % (Manual) Lymphocytes % (Manual) Seg Neutrophils # Seg Neutrophils # Man Lymphocytes # (Manual) D-Dimer ABG pH ABG pO2 ABG HCO3 ABG O2 Saturation ABG Base Excess ABG Hemoglobin VBG pH Oxyhemoglobin Sodium Potassium Chloride Carbon Dioxide BUN Creatinine Glucose POC Glucose 134 H 144 H 143 H Lactic Acid Calcium Phosphorus Magnesium Ferritin Total Bilirubin Direct Bilirubin AST ALT Ammonia Lactate Dehydrogenase C-Reactive Protein Total Protein Albumin Urine Creatinine Urine Total Protein Coronavirus (PCR) 04/11/22 04/11/22 04/11/22 09:28 10:06 11:23 WBC RBC Hgb Hct RDW Plt Count Lymph % (Auto) Lymph # (Auto) Seg Neutrophils % Seg Neuts % (Manual) Lymphocytes % (Manual) Seg Neutrophils # Seg Neutrophils # Man Lymphocytes # (Manual) D-Dimer ABG pH ABG pO2 ABG HCO3 ABG O2 Saturation ABG Base Excess ABG Hemoglobin VBG pH Oxyhemoglobin Sodium Potassium Chloride Carbon Dioxide BUN Creatinine Glucose POC Glucose 138 H Lactic Acid Calcium Phosphorus Magnesium Ferritin Total Bilirubin Direct Bilirubin AST ALT Ammonia Lactate Dehydrogenase C-Reactive Protein Total Protein Albumin Urine Creatinine 161.8 H 160.5 H Urine Total Protein Coronavirus (PCR) 04/11/22 04/11/22 04/12/22 15:59 23:58 00:01 WBC 16.2 H RBC Hgb Hct RDW 15.8 H Plt Count Lymph % (Auto) 5.7 L Lymph # (Auto) 0.9 L Seg Neutrophils % 89.6 H Seg Neuts % (Manual) Lymphocytes % (Manual) Seg Neutrophils # 14.6 H Seg Neutrophils # Man Lymphocytes # (Manual) D-Dimer ABG pH ABG pO2 ABG HCO3 ABG O2 Saturation ABG Base Excess ABG Hemoglobin VBG pH Oxyhemoglobin Sodium Potassium Chloride Carbon Dioxide BUN Creatinine Glucose POC Glucose 166 H 150 H Lactic Acid Calcium Phosphorus Magnesium Ferritin Total Bilirubin Direct Bilirubin AST ALT Ammonia Lactate Dehydrogenase C-Reactive Protein Total Protein Albumin Urine Creatinine Urine Total Protein Coronavirus (PCR) 04/12/22 04/12/22 04/12/22 03:20 04:00 04:00 WBC RBC Hgb Hct RDW Plt Count Lymph % (Auto) Lymph # (Auto) Seg Neutrophils % Seg Neuts % (Manual) Lymphocytes % (Manual) Seg Neutrophils # Seg Neutrophils # Man Lymphocytes # (Manual) D-Dimer 1874.86 H ABG pH 7.513 H ABG pO2 61.7 L ABG HCO3 ABG O2 Saturation 94.2 L ABG Base Excess ABG Hemoglobin 11.5 L VBG pH Oxyhemoglobin 92.6 L Sodium Potassium Chloride Carbon Dioxide BUN Creatinine Glucose POC Glucose Lactic Acid Calcium Phosphorus Magnesium Ferritin 890.0 H Total Bilirubin Direct Bilirubin AST ALT Ammonia Lactate Dehydrogenase C-Reactive Protein Total Protein Albumin Urine Creatinine Urine Total Protein Coronavirus (PCR) 04/12/22 04/12/22 04/12/22 04:00 04:20 04:59 WBC RBC Hgb Hct RDW Plt Count Lymph % (Auto) Lymph # (Auto) Seg Neutrophils % Seg Neuts % (Manual) Lymphocytes % (Manual) Seg Neutrophils # Seg Neutrophils # Man Lymphocytes # (Manual) D-Dimer ABG pH ABG pO2 ABG HCO3 ABG O2 Saturation ABG Base Excess ABG Hemoglobin VBG pH Oxyhemoglobin Sodium 146 H Potassium Chloride 108.0 H Carbon Dioxide BUN 38 H Creatinine 2.3 H Glucose 173 H POC Glucose 146 H Lactic Acid Calcium 6.7 L Phosphorus Magnesium Ferritin Total Bilirubin Direct Bilirubin AST ALT Ammonia Lactate Dehydrogenase 763 H C-Reactive Protein 14.10 H Total Protein Albumin Urine Creatinine Urine Total Protein Coronavirus (PCR) 04/12/22 04/12/22 04/12/22 06:05 10:15 11:52 WBC RBC Hgb Hct RDW Plt Count Lymph % (Auto) Lymph # (Auto) Seg Neutrophils % Seg Neuts % (Manual) Lymphocytes % (Manual) Seg Neutrophils # Seg Neutrophils # Man Lymphocytes # (Manual) D-Dimer ABG pH ABG pO2 ABG HCO3 ABG O2 Saturation ABG Base Excess ABG Hemoglobin VBG pH Oxyhemoglobin Sodium Potassium Chloride Carbon Dioxide BUN Creatinine Glucose POC Glucose 190 H 122 H 125 H Lactic Acid Calcium Phosphorus Magnesium Ferritin Total Bilirubin Direct Bilirubin AST ALT Ammonia Lactate Dehydrogenase C-Reactive Protein Total Protein Albumin Urine Creatinine Urine Total Protein Coronavirus (PCR) 04/12/22 04/13/22 04/13/22 13:18 00:14 03:41 WBC RBC Hgb Hct RDW Plt Count Lymph % (Auto) Lymph # (Auto) Seg Neutrophils % Seg Neuts % (Manual) Lymphocytes % (Manual) Seg Neutrophils # Seg Neutrophils # Man Lymphocytes # (Manual) D-Dimer ABG pH 7.487 H ABG pO2 62.1 L ABG HCO3 ABG O2 Saturation 93.2 L ABG Base Excess ABG Hemoglobin 11.9 L VBG pH Oxyhemoglobin 91.5 L Sodium Potassium Chloride Carbon Dioxide BUN 38 H Creatinine 2.1 H Glucose 144 H POC Glucose 208 H Lactic Acid Calcium 7.1 L Phosphorus Magnesium Ferritin Total Bilirubin Direct Bilirubin AST ALT Ammonia Lactate Dehydrogenase C-Reactive Protein Total Protein Albumin Urine Creatinine Urine Total Protein Coronavirus (PCR) 04/13/22 04/13/22 04/14/22 04:31 04:31 03:54 WBC 13.9 H RBC Hgb Hct RDW 15.7 H Plt Count Lymph % (Auto) Lymph # (Auto) Seg Neutrophils % Seg Neuts % (Manual) Lymphocytes % (Manual) Seg Neutrophils # Seg Neutrophils # Man Lymphocytes # (Manual) D-Dimer ABG pH 7.487 H ABG pO2 57.8 L ABG HCO3 ABG O2 Saturation 93.9 L ABG Base Excess ABG Hemoglobin 10.0 L VBG pH Oxyhemoglobin 92.3 L Sodium Potassium Chloride Carbon Dioxide BUN 42 H Creatinine 1.9 H Glucose 204 H POC Glucose Lactic Acid Calcium 7.4 L Phosphorus Magnesium Ferritin Total Bilirubin Direct Bilirubin AST ALT Ammonia Lactate Dehydrogenase C-Reactive Protein Total Protein Albumin Urine Creatinine Urine Total Protein Coronavirus (PCR) 04/14/22 04/14/22 04/14/22 07:28 07:28 07:28 WBC RBC Hgb Hct RDW Plt Count Lymph % (Auto) Lymph # (Auto) Seg Neutrophils % Seg Neuts % (Manual) Lymphocytes % (Manual) Seg Neutrophils # Seg Neutrophils # Man Lymphocytes # (Manual) D-Dimer 5586.76 H ABG pH ABG pO2 ABG HCO3 ABG O2 Saturation ABG Base Excess ABG Hemoglobin VBG pH Oxyhemoglobin Sodium Potassium Chloride Carbon Dioxide BUN Creatinine Glucose POC Glucose Lactic Acid Calcium Phosphorus Magnesium Ferritin 454.7 H Total Bilirubin Direct Bilirubin AST ALT Ammonia Lactate Dehydrogenase 1345 H C-Reactive Protein 4.80 H Total Protein Albumin Urine Creatinine Urine Total Protein Coronavirus (PCR) 04/14/22 04/14/22 04/14/22 07:28 07:28 09:26 WBC 18.6 H RBC 3.59 L Hgb Hct RDW 15.6 H Plt Count Lymph % (Auto) Lymph # (Auto) Seg Neutrophils % Seg Neuts % (Manual) Lymphocytes % (Manual) Seg Neutrophils # Seg Neutrophils # Man Lymphocytes # (Manual) D-Dimer ABG pH ABG pO2 ABG HCO3 ABG O2 Saturation ABG Base Excess ABG Hemoglobin VBG pH Oxyhemoglobin Sodium 149 H Potassium Chloride 110.3 H Carbon Dioxide BUN 57 H Creatinine 2.3 H Glucose 205 H POC Glucose Lactic Acid Calcium Phosphorus Magnesium 2.90 H Ferritin Total Bilirubin Direct Bilirubin AST ALT Ammonia Lactate Dehydrogenase C-Reactive Protein Total Protein Albumin Urine Creatinine Urine Total Protein Coronavirus (PCR) 04/14/22 04/14/22 04/14/22 11:52 15:41 17:18 WBC RBC Hgb Hct RDW Plt Count Lymph % (Auto) Lymph # (Auto) Seg Neutrophils % Seg Neuts % (Manual) Lymphocytes % (Manual) Seg Neutrophils # Seg Neutrophils # Man Lymphocytes # (Manual) D-Dimer ABG pH 7.506 H ABG pO2 51.0 L ABG HCO3 ABG O2 Saturation 87.3 L ABG Base Excess ABG Hemoglobin 10.6 L VBG pH Oxyhemoglobin 85.4 L Sodium Potassium Chloride Carbon Dioxide BUN Creatinine Glucose POC Glucose 173 H 187 H Lactic Acid Calcium Phosphorus Magnesium Ferritin Total Bilirubin Direct Bilirubin AST ALT Ammonia Lactate Dehydrogenase C-Reactive Protein Total Protein Albumin Urine Creatinine Urine Total Protein Coronavirus (PCR) 04/15/22 04/15/22 04/15/22 00:03 03:43 05:47 WBC RBC Hgb Hct RDW Plt Count Lymph % (Auto) Lymph # (Auto) Seg Neutrophils % Seg Neuts % (Manual) Lymphocytes % (Manual) Seg Neutrophils # Seg Neutrophils # Man Lymphocytes # (Manual) D-Dimer ABG pH 7.477 H ABG pO2 59.1 L ABG HCO3 ABG O2 Saturation 90.5 L ABG Base Excess ABG Hemoglobin 9.5 L VBG pH Oxyhemoglobin 88.7 L Sodium Potassium Chloride Carbon Dioxide BUN Creatinine Glucose POC Glucose 246 H 217 H Lactic Acid Calcium Phosphorus Magnesium Ferritin Total Bilirubin Direct Bilirubin AST ALT Ammonia Lactate Dehydrogenase C-Reactive Protein Total Protein Albumin Urine Creatinine Urine Total Protein Coronavirus (PCR) 04/15/22 04/15/22 04/15/22 09:40 10:00 12:00 WBC 19.3 H RBC 3.18 L Hgb 9.3 L Hct 27.7 L RDW 15.8 H Plt Count Lymph % (Auto) Lymph # (Auto) Seg Neutrophils % Seg Neuts % (Manual) Lymphocytes % (Manual) Seg Neutrophils # Seg Neutrophils # Man Lymphocytes # (Manual) D-Dimer ABG pH ABG pO2 ABG HCO3 ABG O2 Saturation ABG Base Excess ABG Hemoglobin VBG pH Oxyhemoglobin Sodium 146 H Potassium Chloride 107.9 H Carbon Dioxide BUN 76 H Creatinine 1.9 H Glucose 214 H POC Glucose Lactic Acid 2.10 H* Calcium 7.7 L Phosphorus Magnesium Ferritin Total Bilirubin Direct Bilirubin AST ALT Ammonia Lactate Dehydrogenase C-Reactive Protein Total Protein Albumin Urine Creatinine Urine Total Protein Coronavirus (PCR) 04/15/22 04/15/22 04/15/22 12:21 17:51 21:39 WBC RBC Hgb Hct RDW Plt Count Lymph % (Auto) Lymph # (Auto) Seg Neutrophils % Seg Neuts % (Manual) Lymphocytes % (Manual) Seg Neutrophils # Seg Neutrophils # Man Lymphocytes # (Manual) D-Dimer ABG pH ABG pO2 ABG HCO3 ABG O2 Saturation ABG Base Excess ABG Hemoglobin VBG pH Oxyhemoglobin Sodium Potassium Chloride Carbon Dioxide BUN Creatinine Glucose POC Glucose 236 H 255 H 223 H Lactic Acid Calcium Phosphorus Magnesium Ferritin Total Bilirubin Direct Bilirubin AST ALT Ammonia Lactate Dehydrogenase C-Reactive Protein Total Protein Albumin Urine Creatinine Urine Total Protein Coronavirus (PCR) 04/16/22 04/16/22 04/16/22 00:17 02:35 04:00 WBC RBC Hgb Hct RDW Plt Count Lymph % (Auto) Lymph # (Auto) Seg Neutrophils % Seg Neuts % (Manual) Lymphocytes % (Manual) Seg Neutrophils # Seg Neutrophils # Man Lymphocytes # (Manual) D-Dimer ABG pH 7.318 L ABG pO2 71.1 L ABG HCO3 27.7 H ABG O2 Saturation 94.8 L ABG Base Excess ABG Hemoglobin 10.3 L VBG pH Oxyhemoglobin 92.9 L Sodium Potassium Chloride Carbon Dioxide BUN Creatinine Glucose POC Glucose 201 H Lactic Acid Calcium Phosphorus Magnesium Ferritin 446.2 H Total Bilirubin Direct Bilirubin AST ALT Ammonia Lactate Dehydrogenase C-Reactive Protein Total Protein Albumin Urine Creatinine Urine Total Protein Coronavirus (PCR) 04/16/22 04/16/22 04/16/22 04:00 06:00 Unknown WBC RBC Hgb Hct RDW Plt Count Lymph % (Auto) Lymph # (Auto) Seg Neutrophils % Seg Neuts % (Manual) Lymphocytes % (Manual) Seg Neutrophils # Seg Neutrophils # Man Lymphocytes # (Manual) D-Dimer 3886.80 H ABG pH ABG pO2 ABG HCO3 ABG O2 Saturation ABG Base Excess ABG Hemoglobin VBG pH Oxyhemoglobin Sodium 148 H Potassium Chloride 109.9 H Carbon Dioxide BUN 84 H Creatinine 1.7 H Glucose 276 H POC Glucose Lactic Acid Calcium Phosphorus Magnesium Ferritin Total Bilirubin Direct Bilirubin 0.5 H AST 69 H ALT 120 H Ammonia Lactate Dehydrogenase 1467 H C-Reactive Protein 1.90 H Total Protein 5.9 L Albumin 3.5 L Urine Creatinine Urine Total Protein Coronavirus (PCR) 04/16/22 04/17/22 04/17/22 Unknown 05:12 05:12 WBC 25.2 H 22.2 H RBC 3.50 L Hgb Hct RDW 15.8 H 15.8 H Plt Count Lymph % (Auto) Lymph # (Auto) Seg Neutrophils % Seg Neuts % (Manual) Lymphocytes % (Manual) Seg Neutrophils # Seg Neutrophils # Man Lymphocytes # (Manual) D-Dimer 3804.33 H ABG pH ABG pO2 ABG HCO3 ABG O2 Saturation ABG Base Excess ABG Hemoglobin VBG pH Oxyhemoglobin Sodium Potassium Chloride Carbon Dioxide BUN Creatinine Glucose POC Glucose Lactic Acid Calcium Phosphorus Magnesium Ferritin Total Bilirubin Direct Bilirubin AST ALT Ammonia Lactate Dehydrogenase C-Reactive Protein Total Protein Albumin Urine Creatinine Urine Total Protein Coronavirus (PCR) 04/17/22 04/17/22 04/17/22 05:12 17:27 20:04 WBC RBC Hgb Hct RDW Plt Count Lymph % (Auto) Lymph # (Auto) Seg Neutrophils % Seg Neuts % (Manual) Lymphocytes % (Manual) Seg Neutrophils # Seg Neutrophils # Man Lymphocytes # (Manual) D-Dimer ABG pH ABG pO2 ABG HCO3 ABG O2 Saturation ABG Base Excess ABG Hemoglobin VBG pH Oxyhemoglobin Sodium 149 H Potassium 5.3 H Chloride 109.4 H Carbon Dioxide BUN 80 H Creatinine 1.5 H Glucose 320 H POC Glucose 308 H 301 H Lactic Acid Calcium Phosphorus Magnesium Ferritin Total Bilirubin Direct Bilirubin AST 171 H ALT 231 H Ammonia Lactate Dehydrogenase C-Reactive Protein Total Protein 5.4 L Albumin 3.7 L Urine Creatinine Urine Total Protein Coronavirus (PCR) 04/18/22 04/18/22 04/18/22 01:55 05:41 05:41 WBC RBC Hgb Hct RDW Plt Count Lymph % (Auto) Lymph # (Auto) Seg Neutrophils % Seg Neuts % (Manual) Lymphocytes % (Manual) Seg Neutrophils # Seg Neutrophils # Man Lymphocytes # (Manual) D-Dimer ABG pH ABG pO2 ABG HCO3 ABG O2 Saturation ABG Base Excess ABG Hemoglobin VBG pH Oxyhemoglobin Sodium 156 H Potassium Chloride 117.8 H Carbon Dioxide BUN 69 H Creatinine 1.3 H Glucose 231 H POC Glucose 301 H Lactic Acid Calcium 8.3 L Phosphorus Magnesium Ferritin 570.8 H Total Bilirubin Direct Bilirubin AST ALT Ammonia Lactate Dehydrogenase 1473 H C-Reactive Protein Total Protein Albumin Urine Creatinine Urine Total Protein Coronavirus (PCR) 04/18/22 04/18/22 04/18/22 05:41 06:09 10:35 WBC 19.6 H RBC 3.38 L Hgb 9.7 L Hct 29.5 L RDW 15.9 H Plt Count Lymph % (Auto) Lymph # (Auto) Seg Neutrophils % Seg Neuts % (Manual) Lymphocytes % (Manual) Seg Neutrophils # Seg Neutrophils # Man Lymphocytes # (Manual) D-Dimer ABG pH ABG pO2 ABG HCO3 ABG O2 Saturation ABG Base Excess ABG Hemoglobin VBG pH Oxyhemoglobin Sodium 156 H Potassium Chloride 118.2 H Carbon Dioxide 32 H BUN 66 H Creatinine 1.3 H Glucose 179 H POC Glucose 210 H Lactic Acid Calcium 8.3 L Phosphorus Magnesium Ferritin Total Bilirubin Direct Bilirubin AST 91 H ALT 234 H Ammonia Lactate Dehydrogenase C-Reactive Protein Total Protein 5.3 L Albumin 3.4 L Urine Creatinine Urine Total Protein Coronavirus (PCR) 04/18/22 04/18/22 04/19/22 11:57 23:36 03:21 WBC RBC Hgb Hct RDW Plt Count Lymph % (Auto) Lymph # (Auto) Seg Neutrophils % Seg Neuts % (Manual) Lymphocytes % (Manual) Seg Neutrophils # Seg Neutrophils # Man Lymphocytes # (Manual) D-Dimer ABG pH ABG pO2 ABG HCO3 ABG O2 Saturation ABG Base Excess ABG Hemoglobin VBG pH Oxyhemoglobin Sodium Potassium Chloride Carbon Dioxide BUN Creatinine Glucose POC Glucose 161 H 209 H 184 H Lactic Acid Calcium Phosphorus Magnesium Ferritin Total Bilirubin Direct Bilirubin AST ALT Ammonia Lactate Dehydrogenase C-Reactive Protein Total Protein Albumin Urine Creatinine Urine Total Protein Coronavirus (PCR) 04/19/22 04/19/22 04/19/22 04:00 04:00 05:58 WBC 18.2 H RBC Hgb Hct RDW 15.7 H Plt Count Lymph % (Auto) Lymph # (Auto) Seg Neutrophils % Seg Neuts % (Manual) Lymphocytes % (Manual) Seg Neutrophils # Seg Neutrophils # Man Lymphocytes # (Manual) D-Dimer ABG pH ABG pO2 ABG HCO3 ABG O2 Saturation ABG Base Excess ABG Hemoglobin VBG pH Oxyhemoglobin Sodium 160 H Potassium Chloride 119.7 H Carbon Dioxide 31 H BUN 60 H Creatinine 1.3 H Glucose 213 H POC Glucose 207 H Lactic Acid Calcium Phosphorus Magnesium Ferritin Total Bilirubin Direct Bilirubin AST 77 H ALT 208 H Ammonia Lactate Dehydrogenase C-Reactive Protein Total Protein 5.8 L Albumin 3.5 L Urine Creatinine Urine Total Protein Coronavirus (PCR) 04/19/22 04/19/22 04/19/22 11:25 17:35 21:56 WBC RBC Hgb Hct RDW Plt Count Lymph % (Auto) Lymph # (Auto) Seg Neutrophils % Seg Neuts % (Manual) Lymphocytes % (Manual) Seg Neutrophils # Seg Neutrophils # Man Lymphocytes # (Manual) D-Dimer ABG pH ABG pO2 ABG HCO3 ABG O2 Saturation ABG Base Excess ABG Hemoglobin VBG pH Oxyhemoglobin Sodium Potassium Chloride Carbon Dioxide BUN Creatinine Glucose POC Glucose 137 H 168 H 188 H Lactic Acid Calcium Phosphorus Magnesium Ferritin Total Bilirubin Direct Bilirubin AST ALT Ammonia Lactate Dehydrogenase C-Reactive Protein Total Protein Albumin Urine Creatinine Urine Total Protein Coronavirus (PCR) 04/19/22 04/20/22 04/20/22 22:32 01:10 04:17 WBC RBC Hgb Hct RDW Plt Count Lymph % (Auto) Lymph # (Auto) Seg Neutrophils % Seg Neuts % (Manual) Lymphocytes % (Manual) Seg Neutrophils # Seg Neutrophils # Man Lymphocytes # (Manual) D-Dimer ABG pH ABG pO2 ABG HCO3 31.9 H ABG O2 Saturation ABG Base Excess 5.7 H ABG Hemoglobin 10.3 L VBG pH Oxyhemoglobin 94.6 L Sodium 151 H D Potassium Chloride Carbon Dioxide BUN Creatinine Glucose POC Glucose Lactic Acid Calcium Phosphorus Magnesium Ferritin Total Bilirubin Direct Bilirubin AST ALT Ammonia Lactate Dehydrogenase C-Reactive Protein Total Protein Albumin Urine Creatinine 28.3 H Urine Total Protein Coronavirus (PCR) 04/20/22 04/20/22 06:00 06:00 WBC 18.7 H RBC 3.58 L Hgb Hct RDW 16.4 H Plt Count 130 L Lymph % (Auto) Lymph # (Auto) Seg Neutrophils % Seg Neuts % (Manual) Lymphocytes % (Manual) Seg Neutrophils # Seg Neutrophils # Man Lymphocytes # (Manual) D-Dimer ABG pH ABG pO2 ABG HCO3 ABG O2 Saturation ABG Base Excess ABG Hemoglobin VBG pH Oxyhemoglobin Sodium 156 H Potassium Chloride 118.3 H Carbon Dioxide 34 H BUN 52 H Creatinine Glucose 246 H POC Glucose Lactic Acid Calcium Phosphorus Magnesium Ferritin Total Bilirubin Direct Bilirubin AST ALT Ammonia Lactate Dehydrogenase C-Reactive Protein Total Protein Albumin Urine Creatinine Urine Total Protein Coronavirus (PCR)
--- NOTE | 2022-04-20 14:21 | Progress Note ---
Assessment and Plan Assessment: Acute kidney injury likely secondary to Ischemic ATN due to Sepsis and Hypotension COVID positive Sepsis Hypotension Diabetes Mellitus/DKA Acute Respiratory Failure Hypokalemia, now Hyperkalemic Metabolic Acidosis Hypophosphatemia Plan: -Labs reviewed, calculated corrected serum Na level in setting of hyperglycemia was around 158 on morning bmp labs today, yesterday's serum Na level was 160 -On D5W infusion at 100 ml/hr -Continue free water flushes 400 ml q 4 hrs -Checking serum Na level q 4 hrs for now -Renal function reviewed, SCr level was 1.1 today, yesterday's SCr level was 1.3 -Baseline serum creatinine unknown. -Renal ultrasound negative for obstruction -COVID positive-as per ID -Renally dose medications -Monitor I/O's daily -Intake= 3731 ml Output= 4150 ml (Net= -418 ml) -Renal plan reviewed by Dr. Lang Subjective Date of service: 04/20/22 Principal diagnosis: encephalopathy Interval history: Labs reviewed Pt intubated in ICU Pt with covid-19, reviewed medical chart, labs, and notes Objective - Vital Signs Vital signs: Vital Signs - 12hr 04/20/22 04/20/22 04/20/22 03:00 04:00 04:17 Temperature Pulse Rate 110 H 105 H 107 H Pulse Rate [ From Monitor] Respiratory 19 18 Rate Blood Pressure 144/71 144/71 O2 Sat by Pulse 97 99 98 Oximetry 04/20/22 04/20/22 04/20/22 05:00 06:00 07:00 Temperature Pulse Rate 110 H 108 H 111 H Pulse Rate [ From Monitor] Respiratory 20 21 20 Rate Blood Pressure 150/76 155/74 156/82 O2 Sat by Pulse 98 98 96 Oximetry 04/20/22 04/20/22 04/20/22 08:00 08:22 09:00 Temperature 97.8 F Pulse Rate 114 H 112 H 113 H Pulse Rate [ 114 H From Monitor] Respiratory 24 22 Rate Blood Pressure 164/81 155/76 155/76 O2 Sat by Pulse 96 98 98 Oximetry 04/20/22 04/20/22 04/20/22 10:00 11:00 12:00 Temperature 97.5 F L Pulse Rate 112 H 108 H 116 H Pulse Rate [ 116 H From Monitor] Respiratory 24 22 21 Rate Blood Pressure 148/73 133/68 154/85 O2 Sat by Pulse 98 98 98 Oximetry 04/20/22 12:15 Temperature Pulse Rate 116 H Pulse Rate [ From Monitor] Respiratory 2 L Rate Blood Pressure 153/77 O2 Sat by Pulse 99 Oximetry - Lab 04/20/22 06:00 04/20/22 06:00 Most recent lab results ABG pH 7.379 pH Units (7.350-7.450) 04/20/22 04:17 ABG pCO2 55.3 mm Hg 04/20/22 04:17 ABG pO2 86.0 mm Hg (80.0-90.0) 04/20/22 04:17 ABG HCO3 31.9 mmol/L (20.0-26.0) H 04/20/22 04:17 ABG O2 Saturation 96.8 % (95.0-99.0) 04/20/22 04:17 Calcium 8.4 mg/dL (8.4-10.2) 04/20/22 06:00 Phosphorus 3.60 mg/dL (2.5-4.5) 04/14/22 07:28 Magnesium 2.90 mg/dL (1.7-2.3) H 04/14/22 07:28 Urine Creatinine 28.3 mg/dL (0.1-20.0) H 04/19/22 22:32 Urine Sodium 89 mmol/L 04/19/22 22:32 Urine Total Protein 172 mg/dL (5-11.8) H 04/10/22 14:50 Medications & Allergies - Medications Allergies/Adverse Reactions: Allergies No Known Allergies Allergy (Verified 04/09/22 13:44) Active Medications: Generic Name Dose Route Start Last Admin Trade Name Freq PRN Reason Stop Dose Admin Acetaminophen 650 mg 04/09/22 18:11 Acetaminophen 325 Mg Tab PO Q4H PRN Pain MILD(1-3)/Fever >100.5/CARCAMO Dextrose 0 ml 04/10/22 00:40 Dextrose 50% In Water (25gm) 50 Ml Syringe IV Q30MIN PRN Hypoglycemia Protocol Famotidine 10 mg 04/14/22 10:00 04/20/22 09:20 Famotidine 10 Mg Tab FEEDTUBE 10 mg BID JO ANN Administration Fentanyl 50 mcg 04/15/22 09:25 Fentanyl 100 Mcg/2 Ml Inj IV Q10MIN PRN ANALGESIA Heparin Sodium (Porcine) 5,000 unit 04/17/22 10:00 04/20/22 09:20 Heparin 5,000 Unit/1 Ml Vial SUB-Q 5,000 unit Q12HR JO ANN Administration Fentanyl Citrate 2,000 mcg in 100 mls @ 4.155 mls/hr 04/15/22 10:00 04/19/22 22:07 Fentanyl Drip Premix IV 1 mcg/kg/hr TITR JO ANN 4.155 mls/hr Administration Protocol 1 MCG/KG/HR Cefepime HCl 2 gm in 100 mls @ 200 mls/hr 04/16/22 19:00 04/20/22 08:00 Cefepime/Ns 2 Gm/100 Ml IV 200 mls/hr Q12H JO ANN Administration Protocol Dextrose 1,000 mls @ 100 mls/hr 04/19/22 10:00 04/20/22 01:08 D5w IV 04/20/22 19:59 100 mls/hr DIRECT JO ANN Administration Insulin Glargine 35 units 04/19/22 16:18 04/19/22 22:42 Insulin Glargine 100 Units/Ml SUB-Q 35 units QHS JO ANN Administration Insulin Human Lispro 0 unit 04/18/22 12:00 04/20/22 06:32 Insulin Lispro 100 Unit/Ml SUB-Q 4 unit Q6HR JO ANN Administration Protocol Ondansetron HCl 4 mg 04/09/22 18:11 Ondansetron 4 Mg/2 Ml Inj IV Q8H PRN Nausea And Vomiting Senna/Docusate Sodium 2 tab 04/15/22 14:00 04/20/22 10:20 Sennosides/Docusate Sodium 8.6/50 Mg Tab FEEDTUBE 2 tab BID JO ANN Administration Sodium Chloride 10 ml 04/09/22 22:00 04/20/22 09:20 Sodium Chloride 0.9% 10 Ml Flush Syringe IV 10 ml BID JO ANN Administration Sodium Chloride 10 ml 04/09/22 18:11 Sodium Chloride 0.9% 10 Ml Flush Syringe IV PRN PRN LINE FLUSH
[2022-04-20] MEDS: fentaNYL DRIP Premix 2,000 MCG/100 ML BAG IV SCH (19:39)
[2022-04-20] MEDS: INSULIN GLARGINE 100 UNITS/ML SUB-Q SCH (22:00)
[2022-04-21] MEDS: INSULIN LISPRO 100 UNIT/ML SUB-Q SCH ×4 (00:19→17:09)
[2022-04-21] MEDS: FREE WATER PO SCH ×2 (02:00→06:32)
--- NOTE | 2022-04-21 03:33 | XRay Report ---
CHEST 1 VIEW INDICATION / CLINICAL INFORMATION: ards covid. COMPARISON: Chest x-ray 04/15/2022 FINDINGS: SUPPORT DEVICES: Stable, satisfactory device positioning. HEART / MEDIASTINUM: Stable interval appearance of the cardiomediastinal silhouette. LUNGS / PLEURA: There may be some improvement in aeration of the upper lungs. Mid and lower lung airs pace and interstitial opacities are without significant change. BONES: No significant osseous abnormality. ADDITIONAL FINDINGS: No significant additional findings. IMPRESSION: 1. There may be minimal clearing of the upper lungs. Otherwise mid and lower lungs continue to demons trate interstitial and airspace opacity similar to prior study. Signer Name: Cory Camacho II, MD Signed: 04/21/2022 3:29 AM Workstation Name: [id number]
[2022-04-21 05:25] LABS: Calcium 8.6 mg/dL (8.4-10.2)
[2022-04-21 05:29] LABS: Hematocrit 33.6 % (30.3-42.9); Hemoglobin 10.6 gm/dl (10.1-14.3); Mean Corpuscular HGB Conc 32 % (30-34); Mean Corpuscular Volume 90 fl (79-97); Platelet Count 109 K/mm3 (140-440); Red Blood Count 3.73 M/mm3 (3.65-5.03); Red Cell Distribution Width 15.9 % (13.2-15.2)
[2022-04-21] MEDS: CEFEPIME/NS 2 GM/100 ML 2 GM/100 ML BAG IV SCH ×2 (06:00→18:11)
[2022-04-21] MEDS: HEPARIN 5,000 UNIT/1 ML VIAL SUB-Q SCH ×2 (09:06→20:59)
[2022-04-21] MEDS: SENNOSIDES/DOCUSATE SODIUM 8.6/50 MG TAB FEEDTUBE SCH ×2 (09:15→21:00)
[2022-04-21] MEDS: FAMOTIDINE 10 MG TAB FEEDTUBE SCH ×2 (09:15→21:00)
--- NOTE | 2022-04-21 10:15 | Progress Note ---
Assessment and Plan Assessment and Plan # Acute encephalopathy, myoclonic jerks -possibly multi-factorial in part related to infection/encephalitis -CT brain is unremarkable - Brain MRI unremarkable -EEG is with 4-6 Hz no epileptiform discharges is noted -Avoid sedation as possible -continue to mnoitor -inflammation markers improved but clinically no significant improvement and today she is slightly worse -COVID-19 Positive -Over all prognosis is quarded to poor -Consider repeat MRI brain By friday with gd if she is no better!!! decison to be made by PCP ,benefit is questionable. # Hypernatremia -Correct 160--156--155 # NAD -Blood pressure monitoring per protocol -s/p vasopressor support with Levophed, dobutamine, vasopressin -MAP goal greater than 65 -Echocardiogram shows LVEF 55 to 60%, normal bivalve function, mildly dilated right ventricle # Acute hypoxic respiratory failure, ARDS -CCM consulted, appreciate recommendations -Intubated in the emergency department 04/09 with 7.00 ETT at 22 the lips -A.m. vent settings: Assist-control rate 20, tidal volume 400, PEEP 10, FiO2 55% -See RT notes for titration -A.m. ABG and CXR noted -VAP bundle -SPO2 monitoring # Transaminitis -24 hours +1080 ml -PPI -NTR consult for tube feedings -FWF 250 ml q4 -BR: [place] S -Trend LFTs # Acute kidney injury likely secondary to ischemic acute tubular necrosis, hypernatremia -Improved # Septic shock secondary to COVID-19 pneumonia, lactic acidosis -Infectious disease consulted, appreciate recommendations -Admit CXR showed bilateral air space opacities -Covid 19 PCR (+) -Antibiotic therapy with Rocephin (04/11-04/15) and vancomycin (04/11-04/14) -Decadron 8 mg daily for 10 days (04/09-04/18) -Per ID: Due to renal failure, not a candidate for remdesivir -S/p Actemra 04/10 -Contact/droplet precautions -f/u blood culture -Monitor WBC and temperature curve -Trend COVID-19 inflammatory markers #s/p DKA, h/o DM -S/p insulin drip -Avoid hypoglycemia -SSI and long-acting insulin, titrate as needed -Accu-Cheks every 6 # Leukocytosis, elevated Ddimer -BLE dopplar US shows no DVT -Trend CBC -Transfuse hemoglobin less than 7 -Lovenox subcu -Monitor for signs of bleeding -SCDs to BLE while in bed PLAN 1- Mantain as above 2- worsened mentation ,weakness 3- Inflammatory markers are better 4-NA#155 today Prognosis is quarded to poor Subjective Date of service: 04/21/22 Principal diagnosis: encephalopathy Interval history: Off sedation X4 days she is worse today not moving upper or lower , eyes open she star ,not follow commands, no spontaneous breathing MRI brain is noted Unremarkable OFF decadron Leukocyres is better #22.2--19.6--18.2--18.7--14.8 Hypernatremia NA#149--156 --160 --156--155 DD#[id number] improved ferritin#570 CRP#0.8 Objective - Vital Sign Vital Signs - 12hr 04/20/22 04/20/22 04/21/22 23:00 23:50 00:00 Temperature 99.1 F Pulse Rate 116 H 115 H 118 H Pulse Rate [ 120 H From Monitor] Respiratory 21 19 26 H Rate Blood Pressure 128/74 137/72 137/72 O2 Sat by Pulse 99 99 98 Oximetry 04/21/22 04/21/22 04/21/22 01:00 02:00 03:00 Temperature Pulse Rate 117 H 119 H 119 H Pulse Rate [ From Monitor] Respiratory 23 26 H 26 H Rate Blood Pressure 137/72 142/73 142/79 O2 Sat by Pulse 99 99 98 Oximetry 04/21/22 04/21/22 04/21/22 04:00 05:00 06:00 Temperature 98.2 F Pulse Rate 112 H 111 H 106 H Pulse Rate [ 112 H From Monitor] Respiratory 19 21 22 Rate Blood Pressure 154/79 150/81 140/74 O2 Sat by Pulse 99 99 99 Oximetry 04/21/22 04/21/22 04/21/22 07:00 08:00 09:00 Temperature 98.8 F Pulse Rate 108 H 112 H 110 H Pulse Rate [ 111 H From Monitor] Respiratory 22 22 22 Rate Blood Pressure 131/68 160/73 128/78 O2 Sat by Pulse 100 99 99 Oximetry 04/21/22 09:21 Temperature Pulse Rate 113 H Pulse Rate [ From Monitor] Respiratory Rate Blood Pressure 133/82 O2 Sat by Pulse 99 Oximetry - General Apperance Constitutional: comfortable - EENT EENT: PERRL, mucous membranes moist - Respiratory Respiratory: lungs clear, rhonchi - Cardiovascular Cardiovascular: regular rate, normal S1, normal S2 Extremities: no peripheral edema bilat - Gastrointestinal Gastrointestinal: normoactive bowel sounds - Integumentary Integumentary: normal - Neurologic Cranial nerve examination: PERRL, EOMI, intact Speech examination: other (intubated off sedation) Detailed motor examination: other (no movment to stimuli,) - Laboratory Findings CBC and BMP: 04/21/22 04:30 04/21/22 04:30 Abnormal Lab Findings: Abnormal Labs 04/09/22 04/09/22 04/09/22 11:59 12:52 12:52 WBC RBC Hgb Hct RDW 15.3 H Plt Count Lymph % (Auto) 8.4 L Lymph # (Auto) 0.7 L Seg Neutrophils % 84.6 H Seg Neuts % (Manual) Lymphocytes % (Manual) Seg Neutrophils # Seg Neutrophils # Man Lymphocytes # (Manual) D-Dimer ABG pH ABG pO2 ABG HCO3 ABG O2 Saturation ABG Base Excess ABG Hemoglobin VBG pH Oxyhemoglobin Sodium Potassium Chloride 112.7 H Carbon Dioxide 18 L BUN Creatinine 2.0 H Glucose 204 H POC Glucose 203 H Lactic Acid Calcium Phosphorus Magnesium Ferritin Total Bilirubin 1.30 H Direct Bilirubin AST 47 H ALT Ammonia Lactate Dehydrogenase C-Reactive Protein Total Protein Albumin Urine Creatinine Urine Total Protein Coronavirus (PCR) 04/09/22 04/09/22 04/09/22 12:52 12:52 13:02 WBC RBC Hgb Hct RDW Plt Count Lymph % (Auto) Lymph # (Auto) Seg Neutrophils % Seg Neuts % (Manual) Lymphocytes % (Manual) Seg Neutrophils # Seg Neutrophils # Man Lymphocytes # (Manual) D-Dimer ABG pH ABG pO2 ABG HCO3 ABG O2 Saturation ABG Base Excess ABG Hemoglobin VBG pH 7.303 L Oxyhemoglobin Sodium Potassium Chloride Carbon Dioxide BUN Creatinine Glucose POC Glucose Lactic Acid Calcium Phosphorus Magnesium Ferritin Total Bilirubin Direct Bilirubin AST ALT Ammonia 20.0 L Lactate Dehydrogenase C-Reactive Protein Total Protein Albumin Urine Creatinine Urine Total Protein Coronavirus (PCR) Positive A 04/09/22 04/09/22 04/09/22 15:49 22:15 22:58 WBC RBC Hgb Hct RDW Plt Count Lymph % (Auto) Lymph # (Auto) Seg Neutrophils % Seg Neuts % (Manual) Lymphocytes % (Manual) Seg Neutrophils # Seg Neutrophils # Man Lymphocytes # (Manual) D-Dimer ABG pH 7.097 L* ABG pO2 188.8 H ABG HCO3 7.4 L ABG O2 Saturation 99.1 H ABG Base Excess -20.7 L ABG Hemoglobin VBG pH Oxyhemoglobin Sodium Potassium Chloride 108.8 H Carbon Dioxide 10 L D BUN 20 H Creatinine 2.6 H Glucose 465 H POC Glucose Lactic Acid 2.70 H* Calcium 7.4 L Phosphorus Magnesium Ferritin Total Bilirubin Direct Bilirubin AST ALT Ammonia Lactate Dehydrogenase C-Reactive Protein Total Protein Albumin Urine Creatinine Urine Total Protein Coronavirus (PCR) 04/09/22 04/09/22 04/10/22 23:19 Unknown 00:03 WBC RBC Hgb Hct RDW Plt Count Lymph % (Auto) Lymph # (Auto) Seg Neutrophils % Seg Neuts % (Manual) Lymphocytes % (Manual) Seg Neutrophils # Seg Neutrophils # Man Lymphocytes # (Manual) D-Dimer ABG pH ABG pO2 ABG HCO3 ABG O2 Saturation ABG Base Excess ABG Hemoglobin VBG pH Oxyhemoglobin Sodium Potassium Chloride Carbon Dioxide BUN Creatinine Glucose POC Glucose 356 H Lactic Acid 7.50 H* 6.10 H* Calcium Phosphorus Magnesium Ferritin Total Bilirubin Direct Bilirubin AST ALT Ammonia Lactate Dehydrogenase C-Reactive Protein Total Protein Albumin Urine Creatinine Urine Total Protein Coronavirus (PCR) 04/10/22 04/10/22 04/10/22 02:16 03:03 04:00 WBC RBC Hgb Hct RDW Plt Count Lymph % (Auto) Lymph # (Auto) Seg Neutrophils % Seg Neuts % (Manual) Lymphocytes % (Manual) Seg Neutrophils # Seg Neutrophils # Man Lymphocytes # (Manual) D-Dimer ABG pH ABG pO2 ABG HCO3 ABG O2 Saturation ABG Base Excess ABG Hemoglobin VBG pH Oxyhemoglobin Sodium Potassium Chloride Carbon Dioxide BUN Creatinine Glucose POC Glucose 317 H 325 H 308 H Lactic Acid Calcium Phosphorus Magnesium Ferritin Total Bilirubin Direct Bilirubin AST ALT Ammonia Lactate Dehydrogenase C-Reactive Protein Total Protein Albumin Urine Creatinine Urine Total Protein Coronavirus (PCR) 04/10/22 04/10/22 04/10/22 04:24 04:24 04:24 WBC 16.4 H RBC Hgb Hct RDW 16.2 H Plt Count Lymph % (Auto) Lymph # (Auto) Seg Neutrophils % Seg Neuts % (Manual) 94.0 H Lymphocytes % (Manual) 3.0 L Seg Neutrophils # Seg Neutrophils # Man 15.4 H Lymphocytes # (Manual) 0.5 L D-Dimer ABG pH ABG pO2 ABG HCO3 ABG O2 Saturation ABG Base Excess ABG Hemoglobin VBG pH Oxyhemoglobin Sodium Potassium 2.9 L* D Chloride 116.1 H Carbon Dioxide 11 L BUN 19 H Creatinine 2.5 H Glucose 376 H POC Glucose Lactic Acid Calcium 6.5 L Phosphorus 1.40 L Magnesium 1.60 L Ferritin Total Bilirubin Direct Bilirubin AST 107 H ALT 64 H Ammonia Lactate Dehydrogenase C-Reactive Protein Total Protein 5.5 L Albumin 2.8 L Urine Creatinine Urine Total Protein Coronavirus (PCR) 04/10/22 04/10/22 04/10/22 04:25 05:17 06:00 WBC RBC Hgb Hct RDW Plt Count Lymph % (Auto) Lymph # (Auto) Seg Neutrophils % Seg Neuts % (Manual) Lymphocytes % (Manual) Seg Neutrophils # Seg Neutrophils # Man Lymphocytes # (Manual) D-Dimer ABG pH 7.095 L* ABG pO2 112.3 H ABG HCO3 8.7 L ABG O2 Saturation ABG Base Excess -19.7 L ABG Hemoglobin VBG pH Oxyhemoglobin Sodium Potassium Chloride Carbon Dioxide BUN Creatinine Glucose POC Glucose 343 H 278 H Lactic Acid Calcium Phosphorus Magnesium Ferritin Total Bilirubin Direct Bilirubin AST ALT Ammonia Lactate Dehydrogenase C-Reactive Protein Total Protein Albumin Urine Creatinine Urine Total Protein Coronavirus (PCR) 04/10/22 04/10/22 04/10/22 06:53 07:54 08:58 WBC RBC Hgb Hct RDW Plt Count Lymph % (Auto) Lymph # (Auto) Seg Neutrophils % Seg Neuts % (Manual) Lymphocytes % (Manual) Seg Neutrophils # Seg Neutrophils # Man Lymphocytes # (Manual) D-Dimer ABG pH ABG pO2 ABG HCO3 ABG O2 Saturation ABG Base Excess ABG Hemoglobin VBG pH Oxyhemoglobin Sodium Potassium Chloride Carbon Dioxide BUN Creatinine Glucose POC Glucose 262 H 245 H 215 H Lactic Acid Calcium Phosphorus Magnesium Ferritin Total Bilirubin Direct Bilirubin AST ALT Ammonia Lactate Dehydrogenase C-Reactive Protein Total Protein Albumin Urine Creatinine Urine Total Protein Coronavirus (PCR) 04/10/22 04/10/22 04/10/22 10:12 10:51 11:47 WBC RBC Hgb Hct RDW Plt Count Lymph % (Auto) Lymph # (Auto) Seg Neutrophils % Seg Neuts % (Manual) Lymphocytes % (Manual) Seg Neutrophils # Seg Neutrophils # Man Lymphocytes # (Manual) D-Dimer ABG pH ABG pO2 ABG HCO3 ABG O2 Saturation ABG Base Excess ABG Hemoglobin VBG pH Oxyhemoglobin Sodium 148 H Potassium 3.4 L Chloride 116.7 H Carbon Dioxide 15 L BUN 22 H Creatinine 2.7 H Glucose 190 H POC Glucose 206 H 176 H Lactic Acid Calcium 6.9 L Phosphorus Magnesium Ferritin Total Bilirubin Direct Bilirubin AST ALT Ammonia Lactate Dehydrogenase C-Reactive Protein Total Protein Albumin Urine Creatinine Urine Total Protein Coronavirus (PCR) 04/10/22 04/10/22 04/10/22 11:47 11:47 12:02 WBC RBC Hgb Hct RDW Plt Count Lymph % (Auto) Lymph # (Auto) Seg Neutrophils % Seg Neuts % (Manual) Lymphocytes % (Manual) Seg Neutrophils # Seg Neutrophils # Man Lymphocytes # (Manual) D-Dimer ABG pH ABG pO2 ABG HCO3 ABG O2 Saturation ABG Base Excess ABG Hemoglobin VBG pH Oxyhemoglobin Sodium Potassium Chloride Carbon Dioxide BUN Creatinine Glucose POC Glucose 178 H Lactic Acid Calcium Phosphorus Magnesium Ferritin 1218.0 H Total Bilirubin Direct Bilirubin AST ALT Ammonia Lactate Dehydrogenase 482 H C-Reactive Protein 11.30 H Total Protein Albumin Urine Creatinine Urine Total Protein Coronavirus (PCR) 04/10/22 04/10/22 04/10/22 13:13 13:58 14:50 WBC RBC Hgb Hct RDW Plt Count Lymph % (Auto) Lymph # (Auto) Seg Neutrophils % Seg Neuts % (Manual) Lymphocytes % (Manual) Seg Neutrophils # Seg Neutrophils # Man Lymphocytes # (Manual) D-Dimer ABG pH ABG pO2 ABG HCO3 ABG O2 Saturation ABG Base Excess ABG Hemoglobin VBG pH Oxyhemoglobin Sodium Potassium Chloride Carbon Dioxide BUN Creatinine Glucose POC Glucose 160 H 150 H Lactic Acid Calcium Phosphorus Magnesium Ferritin Total Bilirubin Direct Bilirubin AST ALT Ammonia Lactate Dehydrogenase C-Reactive Protein Total Protein Albumin Urine Creatinine 224.2 H Urine Total Protein 172 H Coronavirus (PCR) 04/10/22 04/10/22 04/10/22 15:24 16:38 16:56 WBC RBC Hgb Hct RDW Plt Count Lymph % (Auto) Lymph # (Auto) Seg Neutrophils % Seg Neuts % (Manual) Lymphocytes % (Manual) Seg Neutrophils # Seg Neutrophils # Man Lymphocytes # (Manual) D-Dimer ABG pH ABG pO2 ABG HCO3 ABG O2 Saturation ABG Base Excess ABG Hemoglobin VBG pH Oxyhemoglobin Sodium Potassium Chloride Carbon Dioxide BUN Creatinine Glucose POC Glucose 140 H 154 H 149 H Lactic Acid Calcium Phosphorus Magnesium Ferritin Total Bilirubin Direct Bilirubin AST ALT Ammonia Lactate Dehydrogenase C-Reactive Protein Total Protein Albumin Urine Creatinine Urine Total Protein Coronavirus (PCR) 04/10/22 04/10/22 04/10/22 18:21 19:21 20:02 WBC RBC Hgb Hct RDW Plt Count Lymph % (Auto) Lymph # (Auto) Seg Neutrophils % Seg Neuts % (Manual) Lymphocytes % (Manual) Seg Neutrophils # Seg Neutrophils # Man Lymphocytes # (Manual) D-Dimer ABG pH ABG pO2 ABG HCO3 ABG O2 Saturation ABG Base Excess ABG Hemoglobin VBG pH Oxyhemoglobin Sodium Potassium Chloride Carbon Dioxide BUN Creatinine Glucose POC Glucose 141 H 126 H 139 H Lactic Acid Calcium Phosphorus Magnesium Ferritin Total Bilirubin Direct Bilirubin AST ALT Ammonia Lactate Dehydrogenase C-Reactive Protein Total Protein Albumin Urine Creatinine Urine Total Protein Coronavirus (PCR) 04/10/22 04/10/22 04/10/22 21:04 21:58 22:20 WBC RBC Hgb Hct RDW Plt Count Lymph % (Auto) Lymph # (Auto) Seg Neutrophils % Seg Neuts % (Manual) Lymphocytes % (Manual) Seg Neutrophils # Seg Neutrophils # Man Lymphocytes # (Manual) D-Dimer ABG pH ABG pO2 ABG HCO3 ABG O2 Saturation ABG Base Excess ABG Hemoglobin VBG pH Oxyhemoglobin Sodium Potassium Chloride 114.5 H Carbon Dioxide 17 L BUN 24 H Creatinine 2.5 H Glucose 165 H POC Glucose 144 H 161 H Lactic Acid Calcium 6.5 L Phosphorus Magnesium Ferritin Total Bilirubin Direct Bilirubin AST ALT Ammonia Lactate Dehydrogenase C-Reactive Protein Total Protein Albumin Urine Creatinine Urine Total Protein Coronavirus (PCR) 04/10/22 04/11/22 04/11/22 23:02 00:08 01:05 WBC RBC Hgb Hct RDW Plt Count Lymph % (Auto) Lymph # (Auto) Seg Neutrophils % Seg Neuts % (Manual) Lymphocytes % (Manual) Seg Neutrophils # Seg Neutrophils # Man Lymphocytes # (Manual) D-Dimer ABG pH ABG pO2 ABG HCO3 ABG O2 Saturation ABG Base Excess ABG Hemoglobin VBG pH Oxyhemoglobin Sodium Potassium Chloride Carbon Dioxide BUN Creatinine Glucose POC Glucose 160 H 148 H 156 H Lactic Acid Calcium Phosphorus Magnesium Ferritin Total Bilirubin Direct Bilirubin AST ALT Ammonia Lactate Dehydrogenase C-Reactive Protein Total Protein Albumin Urine Creatinine Urine Total Protein Coronavirus (PCR) 04/11/22 04/11/22 04/11/22 01:30 02:05 03:04 WBC RBC Hgb Hct RDW Plt Count Lymph % (Auto) Lymph # (Auto) Seg Neutrophils % Seg Neuts % (Manual) Lymphocytes % (Manual) Seg Neutrophils # Seg Neutrophils # Man Lymphocytes # (Manual) D-Dimer ABG pH ABG pO2 75.1 L ABG HCO3 17.2 L ABG O2 Saturation ABG Base Excess -5.8 L ABG Hemoglobin 11.5 L VBG pH Oxyhemoglobin Sodium Potassium Chloride Carbon Dioxide BUN Creatinine Glucose POC Glucose 150 H 168 H Lactic Acid Calcium Phosphorus Magnesium Ferritin Total Bilirubin Direct Bilirubin AST ALT Ammonia Lactate Dehydrogenase C-Reactive Protein Total Protein Albumin Urine Creatinine Urine Total Protein Coronavirus (PCR) 04/11/22 04/11/22 04/11/22 03:58 03:58 04:05 WBC 12.2 H RBC Hgb Hct RDW 15.7 H Plt Count Lymph % (Auto) Lymph # (Auto) Seg Neutrophils % Seg Neuts % (Manual) Lymphocytes % (Manual) Seg Neutrophils # Seg Neutrophils # Man Lymphocytes # (Manual) D-Dimer ABG pH ABG pO2 ABG HCO3 ABG O2 Saturation ABG Base Excess ABG Hemoglobin VBG pH Oxyhemoglobin Sodium 147 H Potassium Chloride 114.2 H Carbon Dioxide 19 L BUN 26 H Creatinine 2.5 H Glucose 154 H POC Glucose 151 H Lactic Acid Calcium 6.8 L Phosphorus Magnesium Ferritin Total Bilirubin Direct Bilirubin AST 106 H ALT 60 H Ammonia Lactate Dehydrogenase C-Reactive Protein Total Protein 5.6 L Albumin 2.7 L Urine Creatinine Urine Total Protein Coronavirus (PCR) 04/11/22 04/11/22 04/11/22 05:14 06:19 08:23 WBC RBC Hgb Hct RDW Plt Count Lymph % (Auto) Lymph # (Auto) Seg Neutrophils % Seg Neuts % (Manual) Lymphocytes % (Manual) Seg Neutrophils # Seg Neutrophils # Man Lymphocytes # (Manual) D-Dimer ABG pH ABG pO2 ABG HCO3 ABG O2 Saturation ABG Base Excess ABG Hemoglobin VBG pH Oxyhemoglobin Sodium Potassium Chloride Carbon Dioxide BUN Creatinine Glucose POC Glucose 134 H 144 H 143 H Lactic Acid Calcium Phosphorus Magnesium Ferritin Total Bilirubin Direct Bilirubin AST ALT Ammonia Lactate Dehydrogenase C-Reactive Protein Total Protein Albumin Urine Creatinine Urine Total Protein Coronavirus (PCR) 04/11/22 04/11/22 04/11/22 09:28 10:06 11:23 WBC RBC Hgb Hct RDW Plt Count Lymph % (Auto) Lymph # (Auto) Seg Neutrophils % Seg Neuts % (Manual) Lymphocytes % (Manual) Seg Neutrophils # Seg Neutrophils # Man Lymphocytes # (Manual) D-Dimer ABG pH ABG pO2 ABG HCO3 ABG O2 Saturation ABG Base Excess ABG Hemoglobin VBG pH Oxyhemoglobin Sodium Potassium Chloride Carbon Dioxide BUN Creatinine Glucose POC Glucose 138 H Lactic Acid Calcium Phosphorus Magnesium Ferritin Total Bilirubin Direct Bilirubin AST ALT Ammonia Lactate Dehydrogenase C-Reactive Protein Total Protein Albumin Urine Creatinine 161.8 H 160.5 H Urine Total Protein Coronavirus (PCR) 04/11/22 04/11/22 04/12/22 15:59 23:58 00:01 WBC 16.2 H RBC Hgb Hct RDW 15.8 H Plt Count Lymph % (Auto) 5.7 L Lymph # (Auto) 0.9 L Seg Neutrophils % 89.6 H Seg Neuts % (Manual) Lymphocytes % (Manual) Seg Neutrophils # 14.6 H Seg Neutrophils # Man Lymphocytes # (Manual) D-Dimer ABG pH ABG pO2 ABG HCO3 ABG O2 Saturation ABG Base Excess ABG Hemoglobin VBG pH Oxyhemoglobin Sodium Potassium Chloride Carbon Dioxide BUN Creatinine Glucose POC Glucose 166 H 150 H Lactic Acid Calcium Phosphorus Magnesium Ferritin Total Bilirubin Direct Bilirubin AST ALT Ammonia Lactate Dehydrogenase C-Reactive Protein Total Protein Albumin Urine Creatinine Urine Total Protein Coronavirus (PCR) 04/12/22 04/12/22 04/12/22 03:20 04:00 04:00 WBC RBC Hgb Hct RDW Plt Count Lymph % (Auto) Lymph # (Auto) Seg Neutrophils % Seg Neuts % (Manual) Lymphocytes % (Manual) Seg Neutrophils # Seg Neutrophils # Man Lymphocytes # (Manual) D-Dimer 1874.86 H ABG pH 7.513 H ABG pO2 61.7 L ABG HCO3 ABG O2 Saturation 94.2 L ABG Base Excess ABG Hemoglobin 11.5 L VBG pH Oxyhemoglobin 92.6 L Sodium Potassium Chloride Carbon Dioxide BUN Creatinine Glucose POC Glucose Lactic Acid Calcium Phosphorus Magnesium Ferritin 890.0 H Total Bilirubin Direct Bilirubin AST ALT Ammonia Lactate Dehydrogenase C-Reactive Protein Total Protein Albumin Urine Creatinine Urine Total Protein Coronavirus (PCR) 04/12/22 04/12/22 04/12/22 04:00 04:20 04:59 WBC RBC Hgb Hct RDW Plt Count Lymph % (Auto) Lymph # (Auto) Seg Neutrophils % Seg Neuts % (Manual) Lymphocytes % (Manual) Seg Neutrophils # Seg Neutrophils # Man Lymphocytes # (Manual) D-Dimer ABG pH ABG pO2 ABG HCO3 ABG O2 Saturation ABG Base Excess ABG Hemoglobin VBG pH Oxyhemoglobin Sodium 146 H Potassium Chloride 108.0 H Carbon Dioxide BUN 38 H Creatinine 2.3 H Glucose 173 H POC Glucose 146 H Lactic Acid Calcium 6.7 L Phosphorus Magnesium Ferritin Total Bilirubin Direct Bilirubin AST ALT Ammonia Lactate Dehydrogenase 763 H C-Reactive Protein 14.10 H Total Protein Albumin Urine Creatinine Urine Total Protein Coronavirus (PCR) 04/12/22 04/12/22 04/12/22 06:05 10:15 11:52 WBC RBC Hgb Hct RDW Plt Count Lymph % (Auto) Lymph # (Auto) Seg Neutrophils % Seg Neuts % (Manual) Lymphocytes % (Manual) Seg Neutrophils # Seg Neutrophils # Man Lymphocytes # (Manual) D-Dimer ABG pH ABG pO2 ABG HCO3 ABG O2 Saturation ABG Base Excess ABG Hemoglobin VBG pH Oxyhemoglobin Sodium Potassium Chloride Carbon Dioxide BUN Creatinine Glucose POC Glucose 190 H 122 H 125 H Lactic Acid Calcium Phosphorus Magnesium Ferritin Total Bilirubin Direct Bilirubin AST ALT Ammonia Lactate Dehydrogenase C-Reactive Protein Total Protein Albumin Urine Creatinine Urine Total Protein Coronavirus (PCR) 04/12/22 04/13/22 04/13/22 13:18 00:14 03:41 WBC RBC Hgb Hct RDW Plt Count Lymph % (Auto) Lymph # (Auto) Seg Neutrophils % Seg Neuts % (Manual) Lymphocytes % (Manual) Seg Neutrophils # Seg Neutrophils # Man Lymphocytes # (Manual) D-Dimer ABG pH 7.487 H ABG pO2 62.1 L ABG HCO3 ABG O2 Saturation 93.2 L ABG Base Excess ABG Hemoglobin 11.9 L VBG pH Oxyhemoglobin 91.5 L Sodium Potassium Chloride Carbon Dioxide BUN 38 H Creatinine 2.1 H Glucose 144 H POC Glucose 208 H Lactic Acid Calcium 7.1 L Phosphorus Magnesium Ferritin Total Bilirubin Direct Bilirubin AST ALT Ammonia Lactate Dehydrogenase C-Reactive Protein Total Protein Albumin Urine Creatinine Urine Total Protein Coronavirus (PCR) 04/13/22 04/13/22 04/14/22 04:31 04:31 03:54 WBC 13.9 H RBC Hgb Hct RDW 15.7 H Plt Count Lymph % (Auto) Lymph # (Auto) Seg Neutrophils % Seg Neuts % (Manual) Lymphocytes % (Manual) Seg Neutrophils # Seg Neutrophils # Man Lymphocytes # (Manual) D-Dimer ABG pH 7.487 H ABG pO2 57.8 L ABG HCO3 ABG O2 Saturation 93.9 L ABG Base Excess ABG Hemoglobin 10.0 L VBG pH Oxyhemoglobin 92.3 L Sodium Potassium Chloride Carbon Dioxide BUN 42 H Creatinine 1.9 H Glucose 204 H POC Glucose Lactic Acid Calcium 7.4 L Phosphorus Magnesium Ferritin Total Bilirubin Direct Bilirubin AST ALT Ammonia Lactate Dehydrogenase C-Reactive Protein Total Protein Albumin Urine Creatinine Urine Total Protein Coronavirus (PCR) 04/14/22 04/14/22 04/14/22 07:28 07:28 07:28 WBC RBC Hgb Hct RDW Plt Count Lymph % (Auto) Lymph # (Auto) Seg Neutrophils % Seg Neuts % (Manual) Lymphocytes % (Manual) Seg Neutrophils # Seg Neutrophils # Man Lymphocytes # (Manual) D-Dimer 5586.76 H ABG pH ABG pO2 ABG HCO3 ABG O2 Saturation ABG Base Excess ABG Hemoglobin VBG pH Oxyhemoglobin Sodium Potassium Chloride Carbon Dioxide BUN Creatinine Glucose POC Glucose Lactic Acid Calcium Phosphorus Magnesium Ferritin 454.7 H Total Bilirubin Direct Bilirubin AST ALT Ammonia Lactate Dehydrogenase 1345 H C-Reactive Protein 4.80 H Total Protein Albumin Urine Creatinine Urine Total Protein Coronavirus (PCR) 04/14/22 04/14/22 04/14/22 07:28 07:28 09:26 WBC 18.6 H RBC 3.59 L Hgb Hct RDW 15.6 H Plt Count Lymph % (Auto) Lymph # (Auto) Seg Neutrophils % Seg Neuts % (Manual) Lymphocytes % (Manual) Seg Neutrophils # Seg Neutrophils # Man Lymphocytes # (Manual) D-Dimer ABG pH ABG pO2 ABG HCO3 ABG O2 Saturation ABG Base Excess ABG Hemoglobin VBG pH Oxyhemoglobin Sodium 149 H Potassium Chloride 110.3 H Carbon Dioxide BUN 57 H Creatinine 2.3 H Glucose 205 H POC Glucose Lactic Acid Calcium Phosphorus Magnesium 2.90 H Ferritin Total Bilirubin Direct Bilirubin AST ALT Ammonia Lactate Dehydrogenase C-Reactive Protein Total Protein Albumin Urine Creatinine Urine Total Protein Coronavirus (PCR) 04/14/22 04/14/22 04/14/22 11:52 15:41 17:18 WBC RBC Hgb Hct RDW Plt Count Lymph % (Auto) Lymph # (Auto) Seg Neutrophils % Seg Neuts % (Manual) Lymphocytes % (Manual) Seg Neutrophils # Seg Neutrophils # Man Lymphocytes # (Manual) D-Dimer ABG pH 7.506 H ABG pO2 51.0 L ABG HCO3 ABG O2 Saturation 87.3 L ABG Base Excess ABG Hemoglobin 10.6 L VBG pH Oxyhemoglobin 85.4 L Sodium Potassium Chloride Carbon Dioxide BUN Creatinine Glucose POC Glucose 173 H 187 H Lactic Acid Calcium Phosphorus Magnesium Ferritin Total Bilirubin Direct Bilirubin AST ALT Ammonia Lactate Dehydrogenase C-Reactive Protein Total Protein Albumin Urine Creatinine Urine Total Protein Coronavirus (PCR) 04/15/22 04/15/22 04/15/22 00:03 03:43 05:47 WBC RBC Hgb Hct RDW Plt Count Lymph % (Auto) Lymph # (Auto) Seg Neutrophils % Seg Neuts % (Manual) Lymphocytes % (Manual) Seg Neutrophils # Seg Neutrophils # Man Lymphocytes # (Manual) D-Dimer ABG pH 7.477 H ABG pO2 59.1 L ABG HCO3 ABG O2 Saturation 90.5 L ABG Base Excess ABG Hemoglobin 9.5 L VBG pH Oxyhemoglobin 88.7 L Sodium Potassium Chloride Carbon Dioxide BUN Creatinine Glucose POC Glucose 246 H 217 H Lactic Acid Calcium Phosphorus Magnesium Ferritin Total Bilirubin Direct Bilirubin AST ALT Ammonia Lactate Dehydrogenase C-Reactive Protein Total Protein Albumin Urine Creatinine Urine Total Protein Coronavirus (PCR) 04/15/22 04/15/22 04/15/22 09:40 10:00 12:00 WBC 19.3 H RBC 3.18 L Hgb 9.3 L Hct 27.7 L RDW 15.8 H Plt Count Lymph % (Auto) Lymph # (Auto) Seg Neutrophils % Seg Neuts % (Manual) Lymphocytes % (Manual) Seg Neutrophils # Seg Neutrophils # Man Lymphocytes # (Manual) D-Dimer ABG pH ABG pO2 ABG HCO3 ABG O2 Saturation ABG Base Excess ABG Hemoglobin VBG pH Oxyhemoglobin Sodium 146 H Potassium Chloride 107.9 H Carbon Dioxide BUN 76 H Creatinine 1.9 H Glucose 214 H POC Glucose Lactic Acid 2.10 H* Calcium 7.7 L Phosphorus Magnesium Ferritin Total Bilirubin Direct Bilirubin AST ALT Ammonia Lactate Dehydrogenase C-Reactive Protein Total Protein Albumin Urine Creatinine Urine Total Protein Coronavirus (PCR) 04/15/22 04/15/22 04/15/22 12:21 17:51 21:39 WBC RBC Hgb Hct RDW Plt Count Lymph % (Auto) Lymph # (Auto) Seg Neutrophils % Seg Neuts % (Manual) Lymphocytes % (Manual) Seg Neutrophils # Seg Neutrophils # Man Lymphocytes # (Manual) D-Dimer ABG pH ABG pO2 ABG HCO3 ABG O2 Saturation ABG Base Excess ABG Hemoglobin VBG pH Oxyhemoglobin Sodium Potassium Chloride Carbon Dioxide BUN Creatinine Glucose POC Glucose 236 H 255 H 223 H Lactic Acid Calcium Phosphorus Magnesium Ferritin Total Bilirubin Direct Bilirubin AST ALT Ammonia Lactate Dehydrogenase C-Reactive Protein Total Protein Albumin Urine Creatinine Urine Total Protein Coronavirus (PCR) 04/16/22 04/16/22 04/16/22 00:17 02:35 04:00 WBC RBC Hgb Hct RDW Plt Count Lymph % (Auto) Lymph # (Auto) Seg Neutrophils % Seg Neuts % (Manual) Lymphocytes % (Manual) Seg Neutrophils # Seg Neutrophils # Man Lymphocytes # (Manual) D-Dimer ABG pH 7.318 L ABG pO2 71.1 L ABG HCO3 27.7 H ABG O2 Saturation 94.8 L ABG Base Excess ABG Hemoglobin 10.3 L VBG pH Oxyhemoglobin 92.9 L Sodium Potassium Chloride Carbon Dioxide BUN Creatinine Glucose POC Glucose 201 H Lactic Acid Calcium Phosphorus Magnesium Ferritin 446.2 H Total Bilirubin Direct Bilirubin AST ALT Ammonia Lactate Dehydrogenase C-Reactive Protein Total Protein Albumin Urine Creatinine Urine Total Protein Coronavirus (PCR) 04/16/22 04/16/22 04/16/22 04:00 06:00 Unknown WBC RBC Hgb Hct RDW Plt Count Lymph % (Auto) Lymph # (Auto) Seg Neutrophils % Seg Neuts % (Manual) Lymphocytes % (Manual) Seg Neutrophils # Seg Neutrophils # Man Lymphocytes # (Manual) D-Dimer 3886.80 H ABG pH ABG pO2 ABG HCO3 ABG O2 Saturation ABG Base Excess ABG Hemoglobin VBG pH Oxyhemoglobin Sodium 148 H Potassium Chloride 109.9 H Carbon Dioxide BUN 84 H Creatinine 1.7 H Glucose 276 H POC Glucose Lactic Acid Calcium Phosphorus Magnesium Ferritin Total Bilirubin Direct Bilirubin 0.5 H AST 69 H ALT 120 H Ammonia Lactate Dehydrogenase 1467 H C-Reactive Protein 1.90 H Total Protein 5.9 L Albumin 3.5 L Urine Creatinine Urine Total Protein Coronavirus (PCR) 04/16/22 04/17/22 04/17/22 Unknown 05:12 05:12 WBC 25.2 H 22.2 H RBC 3.50 L Hgb Hct RDW 15.8 H 15.8 H Plt Count Lymph % (Auto) Lymph # (Auto) Seg Neutrophils % Seg Neuts % (Manual) Lymphocytes % (Manual) Seg Neutrophils # Seg Neutrophils # Man Lymphocytes # (Manual) D-Dimer 3804.33 H ABG pH ABG pO2 ABG HCO3 ABG O2 Saturation ABG Base Excess ABG Hemoglobin VBG pH Oxyhemoglobin Sodium Potassium Chloride Carbon Dioxide BUN Creatinine Glucose POC Glucose Lactic Acid Calcium Phosphorus Magnesium Ferritin Total Bilirubin Direct Bilirubin AST ALT Ammonia Lactate Dehydrogenase C-Reactive Protein Total Protein Albumin Urine Creatinine Urine Total Protein Coronavirus (PCR) 04/17/22 04/17/22 04/17/22 05:12 17:27 20:04 WBC RBC Hgb Hct RDW Plt Count Lymph % (Auto) Lymph # (Auto) Seg Neutrophils % Seg Neuts % (Manual) Lymphocytes % (Manual) Seg Neutrophils # Seg Neutrophils # Man Lymphocytes # (Manual) D-Dimer ABG pH ABG pO2 ABG HCO3 ABG O2 Saturation ABG Base Excess ABG Hemoglobin VBG pH Oxyhemoglobin Sodium 149 H Potassium 5.3 H Chloride 109.4 H Carbon Dioxide BUN 80 H Creatinine 1.5 H Glucose 320 H POC Glucose 308 H 301 H Lactic Acid Calcium Phosphorus Magnesium Ferritin Total Bilirubin Direct Bilirubin AST 171 H ALT 231 H Ammonia Lactate Dehydrogenase C-Reactive Protein Total Protein 5.4 L Albumin 3.7 L Urine Creatinine Urine Total Protein Coronavirus (PCR) 04/18/22 04/18/22 04/18/22 01:55 05:41 05:41 WBC RBC Hgb Hct RDW Plt Count Lymph % (Auto) Lymph # (Auto) Seg Neutrophils % Seg Neuts % (Manual) Lymphocytes % (Manual) Seg Neutrophils # Seg Neutrophils # Man Lymphocytes # (Manual) D-Dimer ABG pH ABG pO2 ABG HCO3 ABG O2 Saturation ABG Base Excess ABG Hemoglobin VBG pH Oxyhemoglobin Sodium 156 H Potassium Chloride 117.8 H Carbon Dioxide BUN 69 H Creatinine 1.3 H Glucose 231 H POC Glucose 301 H Lactic Acid Calcium 8.3 L Phosphorus Magnesium Ferritin 570.8 H Total Bilirubin Direct Bilirubin AST ALT Ammonia Lactate Dehydrogenase 1473 H C-Reactive Protein Total Protein Albumin Urine Creatinine Urine Total Protein Coronavirus (PCR) 04/18/22 04/18/22 04/18/22 05:41 06:09 10:35 WBC 19.6 H RBC 3.38 L Hgb 9.7 L Hct 29.5 L RDW 15.9 H Plt Count Lymph % (Auto) Lymph # (Auto) Seg Neutrophils % Seg Neuts % (Manual) Lymphocytes % (Manual) Seg Neutrophils # Seg Neutrophils # Man Lymphocytes # (Manual) D-Dimer ABG pH ABG pO2 ABG HCO3 ABG O2 Saturation ABG Base Excess ABG Hemoglobin VBG pH Oxyhemoglobin Sodium 156 H Potassium Chloride 118.2 H Carbon Dioxide 32 H BUN 66 H Creatinine 1.3 H Glucose 179 H POC Glucose 210 H Lactic Acid Calcium 8.3 L Phosphorus Magnesium Ferritin Total Bilirubin Direct Bilirubin AST 91 H ALT 234 H Ammonia Lactate Dehydrogenase C-Reactive Protein Total Protein 5.3 L Albumin 3.4 L Urine Creatinine Urine Total Protein Coronavirus (PCR) 04/18/22 04/18/22 04/19/22 11:57 23:36 03:21 WBC RBC Hgb Hct RDW Plt Count Lymph % (Auto) Lymph # (Auto) Seg Neutrophils % Seg Neuts % (Manual) Lymphocytes % (Manual) Seg Neutrophils # Seg Neutrophils # Man Lymphocytes # (Manual) D-Dimer ABG pH ABG pO2 ABG HCO3 ABG O2 Saturation ABG Base Excess ABG Hemoglobin VBG pH Oxyhemoglobin Sodium Potassium Chloride Carbon Dioxide BUN Creatinine Glucose POC Glucose 161 H 209 H 184 H Lactic Acid Calcium Phosphorus Magnesium Ferritin Total Bilirubin Direct Bilirubin AST ALT Ammonia Lactate Dehydrogenase C-Reactive Protein Total Protein Albumin Urine Creatinine Urine Total Protein Coronavirus (PCR) 04/19/22 04/19/22 04/19/22 04:00 04:00 05:58 WBC 18.2 H RBC Hgb Hct RDW 15.7 H Plt Count Lymph % (Auto) Lymph # (Auto) Seg Neutrophils % Seg Neuts % (Manual) Lymphocytes % (Manual) Seg Neutrophils # Seg Neutrophils # Man Lymphocytes # (Manual) D-Dimer ABG pH ABG pO2 ABG HCO3 ABG O2 Saturation ABG Base Excess ABG Hemoglobin VBG pH Oxyhemoglobin Sodium 160 H Potassium Chloride 119.7 H Carbon Dioxide 31 H BUN 60 H Creatinine 1.3 H Glucose 213 H POC Glucose 207 H Lactic Acid Calcium Phosphorus Magnesium Ferritin Total Bilirubin Direct Bilirubin AST 77 H ALT 208 H Ammonia Lactate Dehydrogenase C-Reactive Protein Total Protein 5.8 L Albumin 3.5 L Urine Creatinine Urine Total Protein Coronavirus (PCR) 04/19/22 04/19/22 04/19/22 11:25 17:35 21:56 WBC RBC Hgb Hct RDW Plt Count Lymph % (Auto) Lymph # (Auto) Seg Neutrophils % Seg Neuts % (Manual) Lymphocytes % (Manual) Seg Neutrophils # Seg Neutrophils # Man Lymphocytes # (Manual) D-Dimer ABG pH ABG pO2 ABG HCO3 ABG O2 Saturation ABG Base Excess ABG Hemoglobin VBG pH Oxyhemoglobin Sodium Potassium Chloride Carbon Dioxide BUN Creatinine Glucose POC Glucose 137 H 168 H 188 H Lactic Acid Calcium Phosphorus Magnesium Ferritin Total Bilirubin Direct Bilirubin AST ALT Ammonia Lactate Dehydrogenase C-Reactive Protein Total Protein Albumin Urine Creatinine Urine Total Protein Coronavirus (PCR) 04/19/22 04/20/22 04/20/22 22:32 01:10 04:17 WBC RBC Hgb Hct RDW Plt Count Lymph % (Auto) Lymph # (Auto) Seg Neutrophils % Seg Neuts % (Manual) Lymphocytes % (Manual) Seg Neutrophils # Seg Neutrophils # Man Lymphocytes # (Manual) D-Dimer ABG pH ABG pO2 ABG HCO3 31.9 H ABG O2 Saturation ABG Base Excess 5.7 H ABG Hemoglobin 10.3 L VBG pH Oxyhemoglobin 94.6 L Sodium 151 H D Potassium Chloride Carbon Dioxide BUN Creatinine Glucose POC Glucose Lactic Acid Calcium Phosphorus Magnesium Ferritin Total Bilirubin Direct Bilirubin AST ALT Ammonia Lactate Dehydrogenase C-Reactive Protein Total Protein Albumin Urine Creatinine 28.3 H Urine Total Protein Coronavirus (PCR) 04/20/22 04/20/22 04/20/22 06:00 06:00 06:29 WBC 18.7 H RBC 3.58 L Hgb Hct RDW 16.4 H Plt Count 130 L Lymph % (Auto) Lymph # (Auto) Seg Neutrophils % Seg Neuts % (Manual) Lymphocytes % (Manual) Seg Neutrophils # Seg Neutrophils # Man Lymphocytes # (Manual) D-Dimer ABG pH ABG pO2 ABG HCO3 ABG O2 Saturation ABG Base Excess ABG Hemoglobin VBG pH Oxyhemoglobin Sodium 156 H Potassium Chloride 118.3 H Carbon Dioxide 34 H BUN 52 H Creatinine Glucose 246 H POC Glucose 233 H Lactic Acid Calcium Phosphorus Magnesium Ferritin Total Bilirubin Direct Bilirubin AST ALT Ammonia Lactate Dehydrogenase C-Reactive Protein Total Protein Albumin Urine Creatinine Urine Total Protein Coronavirus (PCR) 04/20/22 04/20/22 04/21/22 11:12 Unknown 00:09 WBC RBC Hgb Hct RDW Plt Count Lymph % (Auto) Lymph # (Auto) Seg Neutrophils % Seg Neuts % (Manual) Lymphocytes % (Manual) Seg Neutrophils # Seg Neutrophils # Man Lymphocytes # (Manual) D-Dimer ABG pH ABG pO2 ABG HCO3 ABG O2 Saturation ABG Base Excess ABG Hemoglobin VBG pH Oxyhemoglobin Sodium 155 H Potassium Chloride Carbon Dioxide BUN Creatinine Glucose POC Glucose 224 H 205 H Lactic Acid Calcium Phosphorus Magnesium Ferritin Total Bilirubin Direct Bilirubin AST ALT Ammonia Lactate Dehydrogenase C-Reactive Protein Total Protein Albumin Urine Creatinine Urine Total Protein Coronavirus (PCR) 04/21/22 04/21/22 04/21/22 02:00 04:30 04:30 WBC 14.8 H RBC Hgb Hct RDW 15.9 H Plt Count 109 L Lymph % (Auto) Lymph # (Auto) Seg Neutrophils % Seg Neuts % (Manual) Lymphocytes % (Manual) Seg Neutrophils # Seg Neutrophils # Man Lymphocytes # (Manual) D-Dimer ABG pH ABG pO2 ABG HCO3 ABG O2 Saturation ABG Base Excess ABG Hemoglobin VBG pH Oxyhemoglobin Sodium 156 H 155 H Potassium Chloride 117.4 H Carbon Dioxide BUN 46 H Creatinine Glucose 178 H POC Glucose Lactic Acid Calcium Phosphorus Magnesium Ferritin Total Bilirubin Direct Bilirubin AST ALT Ammonia Lactate Dehydrogenase C-Reactive Protein Total Protein Albumin Urine Creatinine Urine Total Protein Coronavirus (PCR)
--- NOTE | 2022-04-21 12:25 | Progress Note ---
Assessment and Plan - Patient Problems (1) Hypernatremia Current Visit: Yes Status: Acute (2) Thrombocytopenia Current Visit: Yes Status: Acute (3) Leukocytosis Current Visit: Yes Status: Acute (4) Acute encephalopathy Current Visit: Yes Status: Acute (5) Acute kidney injury Current Visit: Yes Status: Acute (6) Acute respiratory failure with hypoxia Current Visit: Yes Status: Acute (7) Bilateral pneumonia Current Visit: Yes Status: Acute (8) Septic shock Current Visit: Yes Status: Acute (9) T2DM (type 2 diabetes mellitus) Current Visit: Yes Status: Chronic Qualifiers: Diabetes mellitus assisted insulin use: unspecified assisted insulin use status (10) ARDS (adult respiratory distress syndrome) Current Visit: Yes Status: Acute (11) COVID-19 Current Visit: Yes Status: Acute Subjective Principal diagnosis: encephalopathy Interval history: awake on vent orally intubated Objective Vital Signs - 12hr 04/21/22 04/21/22 04/21/22 01:00 02:00 03:00 Temperature Pulse Rate 117 H 119 H 119 H Pulse Rate [ From Monitor] Respiratory 23 26 H 26 H Rate Blood Pressure 137/72 142/73 142/79 O2 Sat by Pulse 99 99 98 Oximetry 04/21/22 04/21/22 04/21/22 04:00 05:00 06:00 Temperature 98.2 F Pulse Rate 112 H 111 H 106 H Pulse Rate [ 112 H From Monitor] Respiratory 19 21 22 Rate Blood Pressure 154/79 150/81 140/74 O2 Sat by Pulse 99 99 99 Oximetry 04/21/22 04/21/22 04/21/22 07:00 08:00 09:00 Temperature 98.8 F Pulse Rate 108 H 112 H 110 H Pulse Rate [ 111 H From Monitor] Respiratory 22 22 22 Rate Blood Pressure 131/68 160/73 128/78 O2 Sat by Pulse 100 99 99 Oximetry 04/21/22 04/21/22 04/21/22 09:21 10:00 10:58 Temperature Pulse Rate 113 H 106 H 107 H Pulse Rate [ From Monitor] Respiratory 18 18 Rate Blood Pressure 133/82 153/87 145/81 O2 Sat by Pulse 99 100 100 Oximetry 04/21/22 04/21/22 04/21/22 11:00 11:02 11:04 Temperature Pulse Rate 111 H 112 H 109 H Pulse Rate [ From Monitor] Respiratory 22 25 H 20 Rate Blood Pressure 145/81 145/81 145/81 O2 Sat by Pulse 100 99 100 Oximetry 04/21/22 04/21/22 04/21/22 11:06 11:08 11:10 Temperature Pulse Rate 111 H 113 H 112 H Pulse Rate [ From Monitor] Respiratory 20 24 20 Rate Blood Pressure 145/81 145/81 O2 Sat by Pulse 99 99 99 Oximetry 04/21/22 04/21/22 04/21/22 11:11 11:12 11:14 Temperature Pulse Rate 111 H 112 H 112 H Pulse Rate [ From Monitor] Respiratory 22 20 23 Rate Blood Pressure 151/86 151/86 151/86 O2 Sat by Pulse 99 100 98 Oximetry 04/21/22 04/21/22 04/21/22 11:16 11:18 11:20 Temperature Pulse Rate 111 H 108 H 111 H Pulse Rate [ From Monitor] Respiratory 22 20 21 Rate Blood Pressure 151/86 151/86 145/81 O2 Sat by Pulse 100 99 99 Oximetry 04/21/22 04/21/22 04/21/22 11:22 11:24 11:26 Temperature Pulse Rate 112 H 109 H 112 H Pulse Rate [ From Monitor] Respiratory 20 19 22 Rate Blood Pressure 145/81 145/81 145/81 O2 Sat by Pulse 100 99 99 Oximetry 04/21/22 04/21/22 04/21/22 11:28 11:30 11:32 Temperature Pulse Rate 112 H 111 H 109 H Pulse Rate [ From Monitor] Respiratory 25 H 18 20 Rate Blood Pressure 145/81 145/81 145/81 O2 Sat by Pulse 99 100 99 Oximetry 04/21/22 04/21/22 04/21/22 11:33 11:34 11:36 Temperature Pulse Rate 111 H 109 H 112 H Pulse Rate [ From Monitor] Respiratory 21 19 22 Rate Blood Pressure 151/86 145/81 145/81 O2 Sat by Pulse 100 100 99 Oximetry 04/21/22 04/21/22 04/21/22 11:38 11:40 11:41 Temperature Pulse Rate 112 H 112 H 111 H Pulse Rate [ From Monitor] Respiratory 21 23 22 Rate Blood Pressure 145/81 145/81 135/79 O2 Sat by Pulse 100 100 99 Oximetry 04/21/22 04/21/22 04/21/22 11:42 11:44 11:45 Temperature Pulse Rate 110 H 109 H 107 H Pulse Rate [ From Monitor] Respiratory 22 18 19 Rate Blood Pressure 135/79 135/79 135/79 O2 Sat by Pulse 99 99 99 Oximetry 04/21/22 04/21/22 04/21/22 11:46 11:48 11:50 Temperature Pulse Rate 113 H 109 H 111 H Pulse Rate [ From Monitor] Respiratory 24 19 21 Rate Blood Pressure 135/79 135/79 135/79 O2 Sat by Pulse 99 100 100 Oximetry 04/21/22 04/21/22 04/21/22 11:52 11:53 11:54 Temperature 99 F Pulse Rate 113 H 110 H Pulse Rate [ 112 H From Monitor] Respiratory 22 20 Rate Blood Pressure 135/79 135/79 O2 Sat by Pulse 99 100 Oximetry 04/21/22 04/21/22 04/21/22 11:56 11:58 12:00 Temperature Pulse Rate 108 H 111 H 113 H Pulse Rate [ From Monitor] Respiratory 19 23 23 Rate Blood Pressure 135/79 135/79 135/79 O2 Sat by Pulse 100 99 99 Oximetry 04/21/22 04/21/22 04/21/22 12:02 12:04 12:06 Temperature Pulse Rate 111 H 112 H 111 H Pulse Rate [ From Monitor] Respiratory 22 22 20 Rate Blood Pressure 135/79 135/79 135/79 O2 Sat by Pulse 100 99 99 Oximetry 04/21/22 04/21/22 04/21/22 12:08 12:10 12:11 Temperature Pulse Rate 110 H 111 H 107 H Pulse Rate [ From Monitor] Respiratory 20 22 19 Rate Blood Pressure 135/79 135/79 127/81 O2 Sat by Pulse 99 99 99 Oximetry 04/21/22 04/21/22 12:12 12:14 Temperature Pulse Rate 110 H 110 H Pulse Rate [ From Monitor] Respiratory 21 20 Rate Blood Pressure 127/81 127/81 O2 Sat by Pulse 100 99 Oximetry Constitutional: other (on vent orally intubated eyes open) Eyes: non-icteric, other (scleroedema on rt) ENT: oropharynx moist Ascultation: Bilateral: diminished breath sounds Cardiovascular: regular rate and rhythm Gastrointestinal: normoactive bowel sounds Integumentary: normal Extremities: no cyanosis CBC and BMP: 04/21/22 04:30 04/21/22 04:30 ABG, PT/INR, D-dimer: ABG ABG pH 7.379 pH Units (7.350-7.450) 04/20/22 04:17 ABG pCO2 55.3 mm Hg 04/20/22 04:17 ABG pO2 86.0 mm Hg (80.0-90.0) 04/20/22 04:17 ABG O2 Saturation 96.8 % (95.0-99.0) 04/20/22 04:17 PT/INR, D-dimer PT 14.5 Sec. (12.2-14.9) 04/09/22 12:52 INR 1.02 (0.87-1.13) 04/09/22 12:52 D-Dimer 3804.33 ng/mlDDU (0-234) H 04/17/22 05:12 Abnormal lab findings: Abnormal Labs 04/09/22 04/09/22 04/09/22 11:59 12:52 12:52 WBC RBC Hgb Hct RDW 15.3 H Plt Count Lymph % (Auto) 8.4 L Lymph # (Auto) 0.7 L Seg Neutrophils % 84.6 H Seg Neuts % (Manual) Lymphocytes % (Manual) Seg Neutrophils # Seg Neutrophils # Man Lymphocytes # (Manual) D-Dimer ABG pH ABG pO2 ABG HCO3 ABG O2 Saturation ABG Base Excess ABG Hemoglobin VBG pH Oxyhemoglobin Sodium Potassium Chloride 112.7 H Carbon Dioxide 18 L BUN Creatinine 2.0 H Glucose 204 H POC Glucose 203 H Lactic Acid Calcium Phosphorus Magnesium Ferritin Total Bilirubin 1.30 H Direct Bilirubin AST 47 H ALT Ammonia Lactate Dehydrogenase C-Reactive Protein Total Protein Albumin Urine Creatinine Urine Total Protein Coronavirus (PCR) 04/09/22 04/09/22 04/09/22 12:52 12:52 13:02 WBC RBC Hgb Hct RDW Plt Count Lymph % (Auto) Lymph # (Auto) Seg Neutrophils % Seg Neuts % (Manual) Lymphocytes % (Manual) Seg Neutrophils # Seg Neutrophils # Man Lymphocytes # (Manual) D-Dimer ABG pH ABG pO2 ABG HCO3 ABG O2 Saturation ABG Base Excess ABG Hemoglobin VBG pH 7.303 L Oxyhemoglobin Sodium Potassium Chloride Carbon Dioxide BUN Creatinine Glucose POC Glucose Lactic Acid Calcium Phosphorus Magnesium Ferritin Total Bilirubin Direct Bilirubin AST ALT Ammonia 20.0 L Lactate Dehydrogenase C-Reactive Protein Total Protein Albumin Urine Creatinine Urine Total Protein Coronavirus (PCR) Positive A 04/09/22 04/09/22 04/09/22 15:49 22:15 22:58 WBC RBC Hgb Hct RDW Plt Count Lymph % (Auto) Lymph # (Auto) Seg Neutrophils % Seg Neuts % (Manual) Lymphocytes % (Manual) Seg Neutrophils # Seg Neutrophils # Man Lymphocytes # (Manual) D-Dimer ABG pH 7.097 L* ABG pO2 188.8 H ABG HCO3 7.4 L ABG O2 Saturation 99.1 H ABG Base Excess -20.7 L ABG Hemoglobin VBG pH Oxyhemoglobin Sodium Potassium Chloride 108.8 H Carbon Dioxide 10 L D BUN 20 H Creatinine 2.6 H Glucose 465 H POC Glucose Lactic Acid 2.70 H* Calcium 7.4 L Phosphorus Magnesium Ferritin Total Bilirubin Direct Bilirubin AST ALT Ammonia Lactate Dehydrogenase C-Reactive Protein Total Protein Albumin Urine Creatinine Urine Total Protein Coronavirus (PCR) 04/09/22 04/09/22 04/10/22 23:19 Unknown 00:03 WBC RBC Hgb Hct RDW Plt Count Lymph % (Auto) Lymph # (Auto) Seg Neutrophils % Seg Neuts % (Manual) Lymphocytes % (Manual) Seg Neutrophils # Seg Neutrophils # Man Lymphocytes # (Manual) D-Dimer ABG pH ABG pO2 ABG HCO3 ABG O2 Saturation ABG Base Excess ABG Hemoglobin VBG pH Oxyhemoglobin Sodium Potassium Chloride Carbon Dioxide BUN Creatinine Glucose POC Glucose 356 H Lactic Acid 7.50 H* 6.10 H* Calcium Phosphorus Magnesium Ferritin Total Bilirubin Direct Bilirubin AST ALT Ammonia Lactate Dehydrogenase C-Reactive Protein Total Protein Albumin Urine Creatinine Urine Total Protein Coronavirus (PCR) 04/10/22 04/10/22 04/10/22 02:16 03:03 04:00 WBC RBC Hgb Hct RDW Plt Count Lymph % (Auto) Lymph # (Auto) Seg Neutrophils % Seg Neuts % (Manual) Lymphocytes % (Manual) Seg Neutrophils # Seg Neutrophils # Man Lymphocytes # (Manual) D-Dimer ABG pH ABG pO2 ABG HCO3 ABG O2 Saturation ABG Base Excess ABG Hemoglobin VBG pH Oxyhemoglobin Sodium Potassium Chloride Carbon Dioxide BUN Creatinine Glucose POC Glucose 317 H 325 H 308 H Lactic Acid Calcium Phosphorus Magnesium Ferritin Total Bilirubin Direct Bilirubin AST ALT Ammonia Lactate Dehydrogenase C-Reactive Protein Total Protein Albumin Urine Creatinine Urine Total Protein Coronavirus (PCR) 04/10/22 04/10/22 04/10/22 04:24 04:24 04:24 WBC 16.4 H RBC Hgb Hct RDW 16.2 H Plt Count Lymph % (Auto) Lymph # (Auto) Seg Neutrophils % Seg Neuts % (Manual) 94.0 H Lymphocytes % (Manual) 3.0 L Seg Neutrophils # Seg Neutrophils # Man 15.4 H Lymphocytes # (Manual) 0.5 L D-Dimer ABG pH ABG pO2 ABG HCO3 ABG O2 Saturation ABG Base Excess ABG Hemoglobin VBG pH Oxyhemoglobin Sodium Potassium 2.9 L* D Chloride 116.1 H Carbon Dioxide 11 L BUN 19 H Creatinine 2.5 H Glucose 376 H POC Glucose Lactic Acid Calcium 6.5 L Phosphorus 1.40 L Magnesium 1.60 L Ferritin Total Bilirubin Direct Bilirubin AST 107 H ALT 64 H Ammonia Lactate Dehydrogenase C-Reactive Protein Total Protein 5.5 L Albumin 2.8 L Urine Creatinine Urine Total Protein Coronavirus (PCR) 04/10/22 04/10/22 04/10/22 04:25 05:17 06:00 WBC RBC Hgb Hct RDW Plt Count Lymph % (Auto) Lymph # (Auto) Seg Neutrophils % Seg Neuts % (Manual) Lymphocytes % (Manual) Seg Neutrophils # Seg Neutrophils # Man Lymphocytes # (Manual) D-Dimer ABG pH 7.095 L* ABG pO2 112.3 H ABG HCO3 8.7 L ABG O2 Saturation ABG Base Excess -19.7 L ABG Hemoglobin VBG pH Oxyhemoglobin Sodium Potassium Chloride Carbon Dioxide BUN Creatinine Glucose POC Glucose 343 H 278 H Lactic Acid Calcium Phosphorus Magnesium Ferritin Total Bilirubin Direct Bilirubin AST ALT Ammonia Lactate Dehydrogenase C-Reactive Protein Total Protein Albumin Urine Creatinine Urine Total Protein Coronavirus (PCR) 04/10/22 04/10/22 04/10/22 06:53 07:54 08:58 WBC RBC Hgb Hct RDW Plt Count Lymph % (Auto) Lymph # (Auto) Seg Neutrophils % Seg Neuts % (Manual) Lymphocytes % (Manual) Seg Neutrophils # Seg Neutrophils # Man Lymphocytes # (Manual) D-Dimer ABG pH ABG pO2 ABG HCO3 ABG O2 Saturation ABG Base Excess ABG Hemoglobin VBG pH Oxyhemoglobin Sodium Potassium Chloride Carbon Dioxide BUN Creatinine Glucose POC Glucose 262 H 245 H 215 H Lactic Acid Calcium Phosphorus Magnesium Ferritin Total Bilirubin Direct Bilirubin AST ALT Ammonia Lactate Dehydrogenase C-Reactive Protein Total Protein Albumin Urine Creatinine Urine Total Protein Coronavirus (PCR) 04/10/22 04/10/22 04/10/22 10:12 10:51 11:47 WBC RBC Hgb Hct RDW Plt Count Lymph % (Auto) Lymph # (Auto) Seg Neutrophils % Seg Neuts % (Manual) Lymphocytes % (Manual) Seg Neutrophils # Seg Neutrophils # Man Lymphocytes # (Manual) D-Dimer ABG pH ABG pO2 ABG HCO3 ABG O2 Saturation ABG Base Excess ABG Hemoglobin VBG pH Oxyhemoglobin Sodium 148 H Potassium 3.4 L Chloride 116.7 H Carbon Dioxide 15 L BUN 22 H Creatinine 2.7 H Glucose 190 H POC Glucose 206 H 176 H Lactic Acid Calcium 6.9 L Phosphorus Magnesium Ferritin Total Bilirubin Direct Bilirubin AST ALT Ammonia Lactate Dehydrogenase C-Reactive Protein Total Protein Albumin Urine Creatinine Urine Total Protein Coronavirus (PCR) 04/10/22 04/10/22 04/10/22 11:47 11:47 12:02 WBC RBC Hgb Hct RDW Plt Count Lymph % (Auto) Lymph # (Auto) Seg Neutrophils % Seg Neuts % (Manual) Lymphocytes % (Manual) Seg Neutrophils # Seg Neutrophils # Man Lymphocytes # (Manual) D-Dimer ABG pH ABG pO2 ABG HCO3 ABG O2 Saturation ABG Base Excess ABG Hemoglobin VBG pH Oxyhemoglobin Sodium Potassium Chloride Carbon Dioxide BUN Creatinine Glucose POC Glucose 178 H Lactic Acid Calcium Phosphorus Magnesium Ferritin 1218.0 H Total Bilirubin Direct Bilirubin AST ALT Ammonia Lactate Dehydrogenase 482 H C-Reactive Protein 11.30 H Total Protein Albumin Urine Creatinine Urine Total Protein Coronavirus (PCR) 04/10/22 04/10/22 04/10/22 13:13 13:58 14:50 WBC RBC Hgb Hct RDW Plt Count Lymph % (Auto) Lymph # (Auto) Seg Neutrophils % Seg Neuts % (Manual) Lymphocytes % (Manual) Seg Neutrophils # Seg Neutrophils # Man Lymphocytes # (Manual) D-Dimer ABG pH ABG pO2 ABG HCO3 ABG O2 Saturation ABG Base Excess ABG Hemoglobin VBG pH Oxyhemoglobin Sodium Potassium Chloride Carbon Dioxide BUN Creatinine Glucose POC Glucose 160 H 150 H Lactic Acid Calcium Phosphorus Magnesium Ferritin Total Bilirubin Direct Bilirubin AST ALT Ammonia Lactate Dehydrogenase C-Reactive Protein Total Protein Albumin Urine Creatinine 224.2 H Urine Total Protein 172 H Coronavirus (PCR) 04/10/22 04/10/22 04/10/22 15:24 16:38 16:56 WBC RBC Hgb Hct RDW Plt Count Lymph % (Auto) Lymph # (Auto) Seg Neutrophils % Seg Neuts % (Manual) Lymphocytes % (Manual) Seg Neutrophils # Seg Neutrophils # Man Lymphocytes # (Manual) D-Dimer ABG pH ABG pO2 ABG HCO3 ABG O2 Saturation ABG Base Excess ABG Hemoglobin VBG pH Oxyhemoglobin Sodium Potassium Chloride Carbon Dioxide BUN Creatinine Glucose POC Glucose 140 H 154 H 149 H Lactic Acid Calcium Phosphorus Magnesium Ferritin Total Bilirubin Direct Bilirubin AST ALT Ammonia Lactate Dehydrogenase C-Reactive Protein Total Protein Albumin Urine Creatinine Urine Total Protein Coronavirus (PCR) 04/10/22 04/10/22 04/10/22 18:21 19:21 20:02 WBC RBC Hgb Hct RDW Plt Count Lymph % (Auto) Lymph # (Auto) Seg Neutrophils % Seg Neuts % (Manual) Lymphocytes % (Manual) Seg Neutrophils # Seg Neutrophils # Man Lymphocytes # (Manual) D-Dimer ABG pH ABG pO2 ABG HCO3 ABG O2 Saturation ABG Base Excess ABG Hemoglobin VBG pH Oxyhemoglobin Sodium Potassium Chloride Carbon Dioxide BUN Creatinine Glucose POC Glucose 141 H 126 H 139 H Lactic Acid Calcium Phosphorus Magnesium Ferritin Total Bilirubin Direct Bilirubin AST ALT Ammonia Lactate Dehydrogenase C-Reactive Protein Total Protein Albumin Urine Creatinine Urine Total Protein Coronavirus (PCR) 04/10/22 04/10/22 04/10/22 21:04 21:58 22:20 WBC RBC Hgb Hct RDW Plt Count Lymph % (Auto) Lymph # (Auto) Seg Neutrophils % Seg Neuts % (Manual) Lymphocytes % (Manual) Seg Neutrophils # Seg Neutrophils # Man Lymphocytes # (Manual) D-Dimer ABG pH ABG pO2 ABG HCO3 ABG O2 Saturation ABG Base Excess ABG Hemoglobin VBG pH Oxyhemoglobin Sodium Potassium Chloride 114.5 H Carbon Dioxide 17 L BUN 24 H Creatinine 2.5 H Glucose 165 H POC Glucose 144 H 161 H Lactic Acid Calcium 6.5 L Phosphorus Magnesium Ferritin Total Bilirubin Direct Bilirubin AST ALT Ammonia Lactate Dehydrogenase C-Reactive Protein Total Protein Albumin Urine Creatinine Urine Total Protein Coronavirus (PCR) 04/10/22 04/11/22 04/11/22 23:02 00:08 01:05 WBC RBC Hgb Hct RDW Plt Count Lymph % (Auto) Lymph # (Auto) Seg Neutrophils % Seg Neuts % (Manual) Lymphocytes % (Manual) Seg Neutrophils # Seg Neutrophils # Man Lymphocytes # (Manual) D-Dimer ABG pH ABG pO2 ABG HCO3 ABG O2 Saturation ABG Base Excess ABG Hemoglobin VBG pH Oxyhemoglobin Sodium Potassium Chloride Carbon Dioxide BUN Creatinine Glucose POC Glucose 160 H 148 H 156 H Lactic Acid Calcium Phosphorus Magnesium Ferritin Total Bilirubin Direct Bilirubin AST ALT Ammonia Lactate Dehydrogenase C-Reactive Protein Total Protein Albumin Urine Creatinine Urine Total Protein Coronavirus (PCR) 04/11/22 04/11/22 04/11/22 01:30 02:05 03:04 WBC RBC Hgb Hct RDW Plt Count Lymph % (Auto) Lymph # (Auto) Seg Neutrophils % Seg Neuts % (Manual) Lymphocytes % (Manual) Seg Neutrophils # Seg Neutrophils # Man Lymphocytes # (Manual) D-Dimer ABG pH ABG pO2 75.1 L ABG HCO3 17.2 L ABG O2 Saturation ABG Base Excess -5.8 L ABG Hemoglobin 11.5 L VBG pH Oxyhemoglobin Sodium Potassium Chloride Carbon Dioxide BUN Creatinine Glucose POC Glucose 150 H 168 H Lactic Acid Calcium Phosphorus Magnesium Ferritin Total Bilirubin Direct Bilirubin AST ALT Ammonia Lactate Dehydrogenase C-Reactive Protein Total Protein Albumin Urine Creatinine Urine Total Protein Coronavirus (PCR) 04/11/22 04/11/22 04/11/22 03:58 03:58 04:05 WBC 12.2 H RBC Hgb Hct RDW 15.7 H Plt Count Lymph % (Auto) Lymph # (Auto) Seg Neutrophils % Seg Neuts % (Manual) Lymphocytes % (Manual) Seg Neutrophils # Seg Neutrophils # Man Lymphocytes # (Manual) D-Dimer ABG pH ABG pO2 ABG HCO3 ABG O2 Saturation ABG Base Excess ABG Hemoglobin VBG pH Oxyhemoglobin Sodium 147 H Potassium Chloride 114.2 H Carbon Dioxide 19 L BUN 26 H Creatinine 2.5 H Glucose 154 H POC Glucose 151 H Lactic Acid Calcium 6.8 L Phosphorus Magnesium Ferritin Total Bilirubin Direct Bilirubin AST 106 H ALT 60 H Ammonia Lactate Dehydrogenase C-Reactive Protein Total Protein 5.6 L Albumin 2.7 L Urine Creatinine Urine Total Protein Coronavirus (PCR) 04/11/22 04/11/22 04/11/22 05:14 06:19 08:23 WBC RBC Hgb Hct RDW Plt Count Lymph % (Auto) Lymph # (Auto) Seg Neutrophils % Seg Neuts % (Manual) Lymphocytes % (Manual) Seg Neutrophils # Seg Neutrophils # Man Lymphocytes # (Manual) D-Dimer ABG pH ABG pO2 ABG HCO3 ABG O2 Saturation ABG Base Excess ABG Hemoglobin VBG pH Oxyhemoglobin Sodium Potassium Chloride Carbon Dioxide BUN Creatinine Glucose POC Glucose 134 H 144 H 143 H Lactic Acid Calcium Phosphorus Magnesium Ferritin Total Bilirubin Direct Bilirubin AST ALT Ammonia Lactate Dehydrogenase C-Reactive Protein Total Protein Albumin Urine Creatinine Urine Total Protein Coronavirus (PCR) 04/11/22 04/11/22 04/11/22 09:28 10:06 11:23 WBC RBC Hgb Hct RDW Plt Count Lymph % (Auto) Lymph # (Auto) Seg Neutrophils % Seg Neuts % (Manual) Lymphocytes % (Manual) Seg Neutrophils # Seg Neutrophils # Man Lymphocytes # (Manual) D-Dimer ABG pH ABG pO2 ABG HCO3 ABG O2 Saturation ABG Base Excess ABG Hemoglobin VBG pH Oxyhemoglobin Sodium Potassium Chloride Carbon Dioxide BUN Creatinine Glucose POC Glucose 138 H Lactic Acid Calcium Phosphorus Magnesium Ferritin Total Bilirubin Direct Bilirubin AST ALT Ammonia Lactate Dehydrogenase C-Reactive Protein Total Protein Albumin Urine Creatinine 161.8 H 160.5 H Urine Total Protein Coronavirus (PCR) 04/11/22 04/11/22 04/12/22 15:59 23:58 00:01 WBC 16.2 H RBC Hgb Hct RDW 15.8 H Plt Count Lymph % (Auto) 5.7 L Lymph # (Auto) 0.9 L Seg Neutrophils % 89.6 H Seg Neuts % (Manual) Lymphocytes % (Manual) Seg Neutrophils # 14.6 H Seg Neutrophils # Man Lymphocytes # (Manual) D-Dimer ABG pH ABG pO2 ABG HCO3 ABG O2 Saturation ABG Base Excess ABG Hemoglobin VBG pH Oxyhemoglobin Sodium Potassium Chloride Carbon Dioxide BUN Creatinine Glucose POC Glucose 166 H 150 H Lactic Acid Calcium Phosphorus Magnesium Ferritin Total Bilirubin Direct Bilirubin AST ALT Ammonia Lactate Dehydrogenase C-Reactive Protein Total Protein Albumin Urine Creatinine Urine Total Protein Coronavirus (PCR) 04/12/22 04/12/22 04/12/22 03:20 04:00 04:00 WBC RBC Hgb Hct RDW Plt Count Lymph % (Auto) Lymph # (Auto) Seg Neutrophils % Seg Neuts % (Manual) Lymphocytes % (Manual) Seg Neutrophils # Seg Neutrophils # Man Lymphocytes # (Manual) D-Dimer 1874.86 H ABG pH 7.513 H ABG pO2 61.7 L ABG HCO3 ABG O2 Saturation 94.2 L ABG Base Excess ABG Hemoglobin 11.5 L VBG pH Oxyhemoglobin 92.6 L Sodium Potassium Chloride Carbon Dioxide BUN Creatinine Glucose POC Glucose Lactic Acid Calcium Phosphorus Magnesium Ferritin 890.0 H Total Bilirubin Direct Bilirubin AST ALT Ammonia Lactate Dehydrogenase C-Reactive Protein Total Protein Albumin Urine Creatinine Urine Total Protein Coronavirus (PCR) 04/12/22 04/12/22 04/12/22 04:00 04:20 04:59 WBC RBC Hgb Hct RDW Plt Count Lymph % (Auto) Lymph # (Auto) Seg Neutrophils % Seg Neuts % (Manual) Lymphocytes % (Manual) Seg Neutrophils # Seg Neutrophils # Man Lymphocytes # (Manual) D-Dimer ABG pH ABG pO2 ABG HCO3 ABG O2 Saturation ABG Base Excess ABG Hemoglobin VBG pH Oxyhemoglobin Sodium 146 H Potassium Chloride 108.0 H Carbon Dioxide BUN 38 H Creatinine 2.3 H Glucose 173 H POC Glucose 146 H Lactic Acid Calcium 6.7 L Phosphorus Magnesium Ferritin Total Bilirubin Direct Bilirubin AST ALT Ammonia Lactate Dehydrogenase 763 H C-Reactive Protein 14.10 H Total Protein Albumin Urine Creatinine Urine Total Protein Coronavirus (PCR) 04/12/22 04/12/22 04/12/22 06:05 10:15 11:52 WBC RBC Hgb Hct RDW Plt Count Lymph % (Auto) Lymph # (Auto) Seg Neutrophils % Seg Neuts % (Manual) Lymphocytes % (Manual) Seg Neutrophils # Seg Neutrophils # Man Lymphocytes # (Manual) D-Dimer ABG pH ABG pO2 ABG HCO3 ABG O2 Saturation ABG Base Excess ABG Hemoglobin VBG pH Oxyhemoglobin Sodium Potassium Chloride Carbon Dioxide BUN Creatinine Glucose POC Glucose 190 H 122 H 125 H Lactic Acid Calcium Phosphorus Magnesium Ferritin Total Bilirubin Direct Bilirubin AST ALT Ammonia Lactate Dehydrogenase C-Reactive Protein Total Protein Albumin Urine Creatinine Urine Total Protein Coronavirus (PCR) 04/12/22 04/13/22 04/13/22 13:18 00:14 03:41 WBC RBC Hgb Hct RDW Plt Count Lymph % (Auto) Lymph # (Auto) Seg Neutrophils % Seg Neuts % (Manual) Lymphocytes % (Manual) Seg Neutrophils # Seg Neutrophils # Man Lymphocytes # (Manual) D-Dimer ABG pH 7.487 H ABG pO2 62.1 L ABG HCO3 ABG O2 Saturation 93.2 L ABG Base Excess ABG Hemoglobin 11.9 L VBG pH Oxyhemoglobin 91.5 L Sodium Potassium Chloride Carbon Dioxide BUN 38 H Creatinine 2.1 H Glucose 144 H POC Glucose 208 H Lactic Acid Calcium 7.1 L Phosphorus Magnesium Ferritin Total Bilirubin Direct Bilirubin AST ALT Ammonia Lactate Dehydrogenase C-Reactive Protein Total Protein Albumin Urine Creatinine Urine Total Protein Coronavirus (PCR) 04/13/22 04/13/22 04/14/22 04:31 04:31 03:54 WBC 13.9 H RBC Hgb Hct RDW 15.7 H Plt Count Lymph % (Auto) Lymph # (Auto) Seg Neutrophils % Seg Neuts % (Manual) Lymphocytes % (Manual) Seg Neutrophils # Seg Neutrophils # Man Lymphocytes # (Manual) D-Dimer ABG pH 7.487 H ABG pO2 57.8 L ABG HCO3 ABG O2 Saturation 93.9 L ABG Base Excess ABG Hemoglobin 10.0 L VBG pH Oxyhemoglobin 92.3 L Sodium Potassium Chloride Carbon Dioxide BUN 42 H Creatinine 1.9 H Glucose 204 H POC Glucose Lactic Acid Calcium 7.4 L Phosphorus Magnesium Ferritin Total Bilirubin Direct Bilirubin AST ALT Ammonia Lactate Dehydrogenase C-Reactive Protein Total Protein Albumin Urine Creatinine Urine Total Protein Coronavirus (PCR) 04/14/22 04/14/22 04/14/22 07:28 07:28 07:28 WBC RBC Hgb Hct RDW Plt Count Lymph % (Auto) Lymph # (Auto) Seg Neutrophils % Seg Neuts % (Manual) Lymphocytes % (Manual) Seg Neutrophils # Seg Neutrophils # Man Lymphocytes # (Manual) D-Dimer 5586.76 H ABG pH ABG pO2 ABG HCO3 ABG O2 Saturation ABG Base Excess ABG Hemoglobin VBG pH Oxyhemoglobin Sodium Potassium Chloride Carbon Dioxide BUN Creatinine Glucose POC Glucose Lactic Acid Calcium Phosphorus Magnesium Ferritin 454.7 H Total Bilirubin Direct Bilirubin AST ALT Ammonia Lactate Dehydrogenase 1345 H C-Reactive Protein 4.80 H Total Protein Albumin Urine Creatinine Urine Total Protein Coronavirus (PCR) 04/14/22 04/14/22 04/14/22 07:28 07:28 09:26 WBC 18.6 H RBC 3.59 L Hgb Hct RDW 15.6 H Plt Count Lymph % (Auto) Lymph # (Auto) Seg Neutrophils % Seg Neuts % (Manual) Lymphocytes % (Manual) Seg Neutrophils # Seg Neutrophils # Man Lymphocytes # (Manual) D-Dimer ABG pH ABG pO2 ABG HCO3 ABG O2 Saturation ABG Base Excess ABG Hemoglobin VBG pH Oxyhemoglobin Sodium 149 H Potassium Chloride 110.3 H Carbon Dioxide BUN 57 H Creatinine 2.3 H Glucose 205 H POC Glucose Lactic Acid Calcium Phosphorus Magnesium 2.90 H Ferritin Total Bilirubin Direct Bilirubin AST ALT Ammonia Lactate Dehydrogenase C-Reactive Protein Total Protein Albumin Urine Creatinine Urine Total Protein Coronavirus (PCR) 04/14/22 04/14/22 04/14/22 11:52 15:41 17:18 WBC RBC Hgb Hct RDW Plt Count Lymph % (Auto) Lymph # (Auto) Seg Neutrophils % Seg Neuts % (Manual) Lymphocytes % (Manual) Seg Neutrophils # Seg Neutrophils # Man Lymphocytes # (Manual) D-Dimer ABG pH 7.506 H ABG pO2 51.0 L ABG HCO3 ABG O2 Saturation 87.3 L ABG Base Excess ABG Hemoglobin 10.6 L VBG pH Oxyhemoglobin 85.4 L Sodium Potassium Chloride Carbon Dioxide BUN Creatinine Glucose POC Glucose 173 H 187 H Lactic Acid Calcium Phosphorus Magnesium Ferritin Total Bilirubin Direct Bilirubin AST ALT Ammonia Lactate Dehydrogenase C-Reactive Protein Total Protein Albumin Urine Creatinine Urine Total Protein Coronavirus (PCR) 04/15/22 04/15/22 04/15/22 00:03 03:43 05:47 WBC RBC Hgb Hct RDW Plt Count Lymph % (Auto) Lymph # (Auto) Seg Neutrophils % Seg Neuts % (Manual) Lymphocytes % (Manual) Seg Neutrophils # Seg Neutrophils # Man Lymphocytes # (Manual) D-Dimer ABG pH 7.477 H ABG pO2 59.1 L ABG HCO3 ABG O2 Saturation 90.5 L ABG Base Excess ABG Hemoglobin 9.5 L VBG pH Oxyhemoglobin 88.7 L Sodium Potassium Chloride Carbon Dioxide BUN Creatinine Glucose POC Glucose 246 H 217 H Lactic Acid Calcium Phosphorus Magnesium Ferritin Total Bilirubin Direct Bilirubin AST ALT Ammonia Lactate Dehydrogenase C-Reactive Protein Total Protein Albumin Urine Creatinine Urine Total Protein Coronavirus (PCR) 04/15/22 04/15/22 04/15/22 09:40 10:00 12:00 WBC 19.3 H RBC 3.18 L Hgb 9.3 L Hct 27.7 L RDW 15.8 H Plt Count Lymph % (Auto) Lymph # (Auto) Seg Neutrophils % Seg Neuts % (Manual) Lymphocytes % (Manual) Seg Neutrophils # Seg Neutrophils # Man Lymphocytes # (Manual) D-Dimer ABG pH ABG pO2 ABG HCO3 ABG O2 Saturation ABG Base Excess ABG Hemoglobin VBG pH Oxyhemoglobin Sodium 146 H Potassium Chloride 107.9 H Carbon Dioxide BUN 76 H Creatinine 1.9 H Glucose 214 H POC Glucose Lactic Acid 2.10 H* Calcium 7.7 L Phosphorus Magnesium Ferritin Total Bilirubin Direct Bilirubin AST ALT Ammonia Lactate Dehydrogenase C-Reactive Protein Total Protein Albumin Urine Creatinine Urine Total Protein Coronavirus (PCR) 04/15/22 04/15/22 04/15/22 12:21 17:51 21:39 WBC RBC Hgb Hct RDW Plt Count Lymph % (Auto) Lymph # (Auto) Seg Neutrophils % Seg Neuts % (Manual) Lymphocytes % (Manual) Seg Neutrophils # Seg Neutrophils # Man Lymphocytes # (Manual) D-Dimer ABG pH ABG pO2 ABG HCO3 ABG O2 Saturation ABG Base Excess ABG Hemoglobin VBG pH Oxyhemoglobin Sodium Potassium Chloride Carbon Dioxide BUN Creatinine Glucose POC Glucose 236 H 255 H 223 H Lactic Acid Calcium Phosphorus Magnesium Ferritin Total Bilirubin Direct Bilirubin AST ALT Ammonia Lactate Dehydrogenase C-Reactive Protein Total Protein Albumin Urine Creatinine Urine Total Protein Coronavirus (PCR) 04/16/22 04/16/22 04/16/22 00:17 02:35 04:00 WBC RBC Hgb Hct RDW Plt Count Lymph % (Auto) Lymph # (Auto) Seg Neutrophils % Seg Neuts % (Manual) Lymphocytes % (Manual) Seg Neutrophils # Seg Neutrophils # Man Lymphocytes # (Manual) D-Dimer ABG pH 7.318 L ABG pO2 71.1 L ABG HCO3 27.7 H ABG O2 Saturation 94.8 L ABG Base Excess ABG Hemoglobin 10.3 L VBG pH Oxyhemoglobin 92.9 L Sodium Potassium Chloride Carbon Dioxide BUN Creatinine Glucose POC Glucose 201 H Lactic Acid Calcium Phosphorus Magnesium Ferritin 446.2 H Total Bilirubin Direct Bilirubin AST ALT Ammonia Lactate Dehydrogenase C-Reactive Protein Total Protein Albumin Urine Creatinine Urine Total Protein Coronavirus (PCR) 04/16/22 04/16/22 04/16/22 04:00 06:00 Unknown WBC RBC Hgb Hct RDW Plt Count Lymph % (Auto) Lymph # (Auto) Seg Neutrophils % Seg Neuts % (Manual) Lymphocytes % (Manual) Seg Neutrophils # Seg Neutrophils # Man Lymphocytes # (Manual) D-Dimer 3886.80 H ABG pH ABG pO2 ABG HCO3 ABG O2 Saturation ABG Base Excess ABG Hemoglobin VBG pH Oxyhemoglobin Sodium 148 H Potassium Chloride 109.9 H Carbon Dioxide BUN 84 H Creatinine 1.7 H Glucose 276 H POC Glucose Lactic Acid Calcium Phosphorus Magnesium Ferritin Total Bilirubin Direct Bilirubin 0.5 H AST 69 H ALT 120 H Ammonia Lactate Dehydrogenase 1467 H C-Reactive Protein 1.90 H Total Protein 5.9 L Albumin 3.5 L Urine Creatinine Urine Total Protein Coronavirus (PCR) 04/16/22 04/17/22 04/17/22 Unknown 05:12 05:12 WBC 25.2 H 22.2 H RBC 3.50 L Hgb Hct RDW 15.8 H 15.8 H Plt Count Lymph % (Auto) Lymph # (Auto) Seg Neutrophils % Seg Neuts % (Manual) Lymphocytes % (Manual) Seg Neutrophils # Seg Neutrophils # Man Lymphocytes # (Manual) D-Dimer 3804.33 H ABG pH ABG pO2 ABG HCO3 ABG O2 Saturation ABG Base Excess ABG Hemoglobin VBG pH Oxyhemoglobin Sodium Potassium Chloride Carbon Dioxide BUN Creatinine Glucose POC Glucose Lactic Acid Calcium Phosphorus Magnesium Ferritin Total Bilirubin Direct Bilirubin AST ALT Ammonia Lactate Dehydrogenase C-Reactive Protein Total Protein Albumin Urine Creatinine Urine Total Protein Coronavirus (PCR) 04/17/22 04/17/22 04/17/22 05:12 17:27 20:04 WBC RBC Hgb Hct RDW Plt Count Lymph % (Auto) Lymph # (Auto) Seg Neutrophils % Seg Neuts % (Manual) Lymphocytes % (Manual) Seg Neutrophils # Seg Neutrophils # Man Lymphocytes # (Manual) D-Dimer ABG pH ABG pO2 ABG HCO3 ABG O2 Saturation ABG Base Excess ABG Hemoglobin VBG pH Oxyhemoglobin Sodium 149 H Potassium 5.3 H Chloride 109.4 H Carbon Dioxide BUN 80 H Creatinine 1.5 H Glucose 320 H POC Glucose 308 H 301 H Lactic Acid Calcium Phosphorus Magnesium Ferritin Total Bilirubin Direct Bilirubin AST 171 H ALT 231 H Ammonia Lactate Dehydrogenase C-Reactive Protein Total Protein 5.4 L Albumin 3.7 L Urine Creatinine Urine Total Protein Coronavirus (PCR) 04/18/22 04/18/22 04/18/22 01:55 05:41 05:41 WBC RBC Hgb Hct RDW Plt Count Lymph % (Auto) Lymph # (Auto) Seg Neutrophils % Seg Neuts % (Manual) Lymphocytes % (Manual) Seg Neutrophils # Seg Neutrophils # Man Lymphocytes # (Manual) D-Dimer ABG pH ABG pO2 ABG HCO3 ABG O2 Saturation ABG Base Excess ABG Hemoglobin VBG pH Oxyhemoglobin Sodium 156 H Potassium Chloride 117.8 H Carbon Dioxide BUN 69 H Creatinine 1.3 H Glucose 231 H POC Glucose 301 H Lactic Acid Calcium 8.3 L Phosphorus Magnesium Ferritin 570.8 H Total Bilirubin Direct Bilirubin AST ALT Ammonia Lactate Dehydrogenase 1473 H C-Reactive Protein Total Protein Albumin Urine Creatinine Urine Total Protein Coronavirus (PCR) 04/18/22 04/18/22 04/18/22 05:41 06:09 10:35 WBC 19.6 H RBC 3.38 L Hgb 9.7 L Hct 29.5 L RDW 15.9 H Plt Count Lymph % (Auto) Lymph # (Auto) Seg Neutrophils % Seg Neuts % (Manual) Lymphocytes % (Manual) Seg Neutrophils # Seg Neutrophils # Man Lymphocytes # (Manual) D-Dimer ABG pH ABG pO2 ABG HCO3 ABG O2 Saturation ABG Base Excess ABG Hemoglobin VBG pH Oxyhemoglobin Sodium 156 H Potassium Chloride 118.2 H Carbon Dioxide 32 H BUN 66 H Creatinine 1.3 H Glucose 179 H POC Glucose 210 H Lactic Acid Calcium 8.3 L Phosphorus Magnesium Ferritin Total Bilirubin Direct Bilirubin AST 91 H ALT 234 H Ammonia Lactate Dehydrogenase C-Reactive Protein Total Protein 5.3 L Albumin 3.4 L Urine Creatinine Urine Total Protein Coronavirus (PCR) 04/18/22 04/18/22 04/19/22 11:57 23:36 03:21 WBC RBC Hgb Hct RDW Plt Count Lymph % (Auto) Lymph # (Auto) Seg Neutrophils % Seg Neuts % (Manual) Lymphocytes % (Manual) Seg Neutrophils # Seg Neutrophils # Man Lymphocytes # (Manual) D-Dimer ABG pH ABG pO2 ABG HCO3 ABG O2 Saturation ABG Base Excess ABG Hemoglobin VBG pH Oxyhemoglobin Sodium Potassium Chloride Carbon Dioxide BUN Creatinine Glucose POC Glucose 161 H 209 H 184 H Lactic Acid Calcium Phosphorus Magnesium Ferritin Total Bilirubin Direct Bilirubin AST ALT Ammonia Lactate Dehydrogenase C-Reactive Protein Total Protein Albumin Urine Creatinine Urine Total Protein Coronavirus (PCR) 04/19/22 04/19/22 04/19/22 04:00 04:00 05:58 WBC 18.2 H RBC Hgb Hct RDW 15.7 H Plt Count Lymph % (Auto) Lymph # (Auto) Seg Neutrophils % Seg Neuts % (Manual) Lymphocytes % (Manual) Seg Neutrophils # Seg Neutrophils # Man Lymphocytes # (Manual) D-Dimer ABG pH ABG pO2 ABG HCO3 ABG O2 Saturation ABG Base Excess ABG Hemoglobin VBG pH Oxyhemoglobin Sodium 160 H Potassium Chloride 119.7 H Carbon Dioxide 31 H BUN 60 H Creatinine 1.3 H Glucose 213 H POC Glucose 207 H Lactic Acid Calcium Phosphorus Magnesium Ferritin Total Bilirubin Direct Bilirubin AST 77 H ALT 208 H Ammonia Lactate Dehydrogenase C-Reactive Protein Total Protein 5.8 L Albumin 3.5 L Urine Creatinine Urine Total Protein Coronavirus (PCR) 04/19/22 04/19/22 04/19/22 11:25 17:35 21:56 WBC RBC Hgb Hct RDW Plt Count Lymph % (Auto) Lymph # (Auto) Seg Neutrophils % Seg Neuts % (Manual) Lymphocytes % (Manual) Seg Neutrophils # Seg Neutrophils # Man Lymphocytes # (Manual) D-Dimer ABG pH ABG pO2 ABG HCO3 ABG O2 Saturation ABG Base Excess ABG Hemoglobin VBG pH Oxyhemoglobin Sodium Potassium Chloride Carbon Dioxide BUN Creatinine Glucose POC Glucose 137 H 168 H 188 H Lactic Acid Calcium Phosphorus Magnesium Ferritin Total Bilirubin Direct Bilirubin AST ALT Ammonia Lactate Dehydrogenase C-Reactive Protein Total Protein Albumin Urine Creatinine Urine Total Protein Coronavirus (PCR) 04/19/22 04/20/22 04/20/22 22:32 01:10 04:17 WBC RBC Hgb Hct RDW Plt Count Lymph % (Auto) Lymph # (Auto) Seg Neutrophils % Seg Neuts % (Manual) Lymphocytes % (Manual) Seg Neutrophils # Seg Neutrophils # Man Lymphocytes # (Manual) D-Dimer ABG pH ABG pO2 ABG HCO3 31.9 H ABG O2 Saturation ABG Base Excess 5.7 H ABG Hemoglobin 10.3 L VBG pH Oxyhemoglobin 94.6 L Sodium 151 H D Potassium Chloride Carbon Dioxide BUN Creatinine Glucose POC Glucose Lactic Acid Calcium Phosphorus Magnesium Ferritin Total Bilirubin Direct Bilirubin AST ALT Ammonia Lactate Dehydrogenase C-Reactive Protein Total Protein Albumin Urine Creatinine 28.3 H Urine Total Protein Coronavirus (PCR) 04/20/22 04/20/22 04/20/22 06:00 06:00 06:29 WBC 18.7 H RBC 3.58 L Hgb Hct RDW 16.4 H Plt Count 130 L Lymph % (Auto) Lymph # (Auto) Seg Neutrophils % Seg Neuts % (Manual) Lymphocytes % (Manual) Seg Neutrophils # Seg Neutrophils # Man Lymphocytes # (Manual) D-Dimer ABG pH ABG pO2 ABG HCO3 ABG O2 Saturation ABG Base Excess ABG Hemoglobin VBG pH Oxyhemoglobin Sodium 156 H Potassium Chloride 118.3 H Carbon Dioxide 34 H BUN 52 H Creatinine Glucose 246 H POC Glucose 233 H Lactic Acid Calcium Phosphorus Magnesium Ferritin Total Bilirubin Direct Bilirubin AST ALT Ammonia Lactate Dehydrogenase C-Reactive Protein Total Protein Albumin Urine Creatinine Urine Total Protein Coronavirus (PCR) 04/20/22 04/20/22 04/21/22 11:12 Unknown 00:09 WBC RBC Hgb Hct RDW Plt Count Lymph % (Auto) Lymph # (Auto) Seg Neutrophils % Seg Neuts % (Manual) Lymphocytes % (Manual) Seg Neutrophils # Seg Neutrophils # Man Lymphocytes # (Manual) D-Dimer ABG pH ABG pO2 ABG HCO3 ABG O2 Saturation ABG Base Excess ABG Hemoglobin VBG pH Oxyhemoglobin Sodium 155 H Potassium Chloride Carbon Dioxide BUN Creatinine Glucose POC Glucose 224 H 205 H Lactic Acid Calcium Phosphorus Magnesium Ferritin Total Bilirubin Direct Bilirubin AST ALT Ammonia Lactate Dehydrogenase C-Reactive Protein Total Protein Albumin Urine Creatinine Urine Total Protein Coronavirus (PCR) 04/21/22 04/21/22 04/21/22 02:00 04:30 04:30 WBC 14.8 H RBC Hgb Hct RDW 15.9 H Plt Count 109 L Lymph % (Auto) Lymph # (Auto) Seg Neutrophils % Seg Neuts % (Manual) Lymphocytes % (Manual) Seg Neutrophils # Seg Neutrophils # Man Lymphocytes # (Manual) D-Dimer ABG pH ABG pO2 ABG HCO3 ABG O2 Saturation ABG Base Excess ABG Hemoglobin VBG pH Oxyhemoglobin Sodium 156 H 155 H Potassium Chloride 117.4 H Carbon Dioxide BUN 46 H Creatinine Glucose 178 H POC Glucose Lactic Acid Calcium Phosphorus Magnesium Ferritin Total Bilirubin Direct Bilirubin AST ALT Ammonia Lactate Dehydrogenase C-Reactive Protein Total Protein Albumin Urine Creatinine Urine Total Protein Coronavirus (PCR) Chest x-ray: report reviewed, image reviewed
--- NOTE | 2022-04-21 12:44 | Progress Note ---
<KEE GONZALEZ - Last Filed: 04/21/22 18:25> Assessment and Plan Assessment and plan: This is a 77-year-old female with DM and ovarian cancer in remission admitted for septic shock secondary to COVID-19 pneumonia, acute kidney injury, acute hypoxic respiratory failure and currently in multiorgan failure Hospital Course to Date: 04/10: Patient noted to have myoclonic jerking this morning and was given 2 mg of Ativan which aborted the jerking. Neurology was consulted and MRI and EEG were ordered. Patient admits to [facility] for MRI at this time. Patient is hypotensive and currently on Levophed, vasopressin and dobutamine. Nephrology consulted for renal failure. Remains on insulin drip and was placed on a bicarbonate drip this morning. Infectious disease consulted who added vancomy socrates and ordered follow-up labs. Dr. Craig had a conversation with family about prognosis and given multisystem organ failure. We will continue supportive care. 04/11/22-patient seen at bedside. T/V orally intubated. No purposeful response on assessment. make periodic jerking movement. EEG done today-will f/u with result. BICarb d/c -acidosis has improved-started on D5 11/28 NS. Reviewed specialist note and reces-renal US-no acute finding. Continue Pressors for MAPs >65. Wean as tolerated. Bicarb-d/c and start D5W. 04/12: Patient is following commands, nutrition consulted for tube feedings, PEEP decreased with possible PSV in the a.m., insulin drip discontinued and SSI/basal dose insulin started. [facility] will update son. 04/13: Renal function continues to improve, intermittently following commands, [facility] ordered 1 x 40 mg of Lasix repeat CXR in the a.m. Tolerating tube feedings. 04/14: PEEP increased per [facility], will not repeat Lasix again due to increasing renal functions. Ordered CT head. Overnight patient was tachypneic and agitated and Precedex drip was started. We will start Seroquel and wean Precedex as tolerated. 04/15: IVF started by nephro yesterday for hypernatremia, awaiting BMP for today to result. Overnight patient was started on propofol and has propofol and precedex infusing. Fentanyl gtt ordered and precedex gtt discontinued. 04/16: Patient remains on the vent, back on sedation overnight due to vent unsynchrony. Remains encephalopathic, EEG pending, Neurology reconsulted. Continue FWF Q4hrs for hypernatremia and SSI and basal insulin adjusted for better glycemic control. Worsening leukocytosis noted, patient remains afebrile. Patient completed X5 of IV Abx and still on IV steroids, will continue to monitor for now. ID is also following. D/C CCM plan for family phone conference with patient's son tomorrow to discuss goal of care. 04/17: Remains on the vent, mentation is unchanged, MRI and Neurology recs noted. FWF increased due to persistent hypernatremia, X1 dose of kayexalate was also given for hyperkalemia, renal function is improvement. Continue to monitor renal function and electrolytes. Insulin was adjusted for hyperglycemia. Plan for possible family conference meeting today with the surgical aide. 04/18: With worsening hypernatremia this am despite Q4hrs FWF and X1 L of D5 per Nephro. Unclear etiology at this time. Will continue FWF for now and Nephro is also following. ABD US pending for elevated LTFs, will continue to trend LFTs. Still hyperglycemic, insulin adjusted. Patient's family opted for trach and PEG. General Surgery consulted. 04/19: Hypernatremia worsen this am, FWF held due to NPO status. Order placed for D5W X2bags, serial Na ordered. Will also check some urine lytes and serum osmo. CT ado/pelvis and Abd US noted, LFT downtrending. Will continue to trend LFTs. Plan for possible trach and PEG by general Surgery. 04/20: GILES overnight. Hypernatremia improved, continue D5W, FWF, and serial Na check. Possible trach and PEG sometimes next week by general Surgery. 04/21: Vomited this am, TF held, no gastric residual noted. Resume TF and IV Reglan added. Hypernatremia is unchanged continue FWF and serial Na per Nephro. Possible trach and PEG sometimes next week by general Surgery. Neuro: Acute Metabolic Encephalopathy Myoclonic Jerks -Myoclonic jerking aborted with Ativan early in admission but none noted since -Initial CT head showed no acute abnormality -EEG absence of definite epileptiform abnormalities would not rule out the possibility of epilepsy, compatible with moderate to moderately severe diffuse encephalopathy -Repeat CTH shows no acute abnormality -MRI Brain noted -repeat eeg noted -Neurology reconsulted -Avoid delirium -Reorientation as needed -Maintain sleep-wake cycle Cardiac: NAD -Blood pressure monitoring per protocol -s/p vasopressor support with Levophed, dobutamine, vasopressin -MAP goal greater than 65 -Echocardiogram shows LVEF 55 to 60%, normal bivalve function, mildly dilated right ventricle Respiratory: Acute hypoxic respiratory failure ARDS COVID Pneumonia -CCM consulted, appreciate recommendations -Intubated in the emergency department 04/09 with 7.00 ETT at 22 the lips -Vent setting:PRVC- 40%,6,18,400 -A.m. ABG and CXR noted -CCM consulted, appreciate recommendations -Continue IV Steroids and Nebs per CCM -Continue IV Abx per ID -VAP bundle addressed -Aspiration precaution HOB above 30 -Daily ABG and CXR -Continue SPO2 monitoring for SPO2 goal above 92% -Patient family opted for trach and PEG -General Surgery consulted : Acute kidney injury likely secondary to ischemic acute tubular necrosis Hypernatremia -FeNa calculated at 0.13 -Renal ultrasound Shows mild echogenic kidneys which can be seen in medical renal disease, no hydronephrosis, small amount of free fluid in the abdomen -Nephrology consulted, appreciate recommendations -Renal function continue to improve -Worsen hypernatremia, unclear etiology at this time -s/p D5W X2bags, hypernatremia improved -Continue FWF and serial Na -Strict intake and output -Renally dose medications -Avoid nephrotoxic medications -Daily weights -Monitor and replace electrolytes as needed ID: Septic shock secondary to COVID-19 pneumonia Lactic Acidosis Leukocytosis -Infectious disease consulted, appreciate recommendations -Admit CXR showed bilateral air space opacities -Covid 19 PCR (+) -Antibiotic therapy with Rocephin (04/11-04/15) and vancomycin (04/11-04/14) -Decadron 8 mg daily for 10 days (04/09-04/18) -Now on Cefepine per ID -Per ID: Due to renal failure, not a candidate for remdesivir -S/p Actemra 04/10 -Contact/droplet precautions -f/u blood culture -Monitor WBC and temperature curve -Trend COVID-19 inflammatory markers Endo: h/o DM s/p DKA -S/p insulin drip -Remain hyperglycemic, probably due to IV steroids -SSI and Lantus adjusted -Continue Accu-Cheks every 6 -While critically ill target blood glucose of 140-180 Elevated Ddimer -most likely due to COVID -BLE dopplar US shows no DVT -Continue to trend inflammatory markers -Lovenox subcu -Monitor for signs of bleeding -SCDs to BLE while in bed -Transfuse hemoglobin less than 7 GI: Transaminitis -Presented with elevated LFTs -LTFs still labile -Abd US pending -Continue to trend LFTs GI/DVT Prophylaxis -PPI- Pepcid -Lovenox switch to heparin subQ due to ASHLEY -SCDs to bilateral lower extremities while in bed The high probability of a clinically significant, sudden or life threatening deterioration of the [multi] system(s) required my full and direct attention, intervention and personal management. The aggregate critical care time was [60] minutes. This time is in addition to time spent performing reported procedures but includes the following: [x] Data Review and interpretation [x] Patient assessment and monitoring of vital signs [x] Documentation [x] Medication orders and management Disposition Plan: ICU Total Time Spent with Patient (Minutes): 60 History Interval history: Patient seen and examined at the bedside. Remains intubated and on low dose fentanyl gtt. Open eyes spontaneously and tracking but does not follow commands. Per RN episode of emesis this morning, TF held but no gastric residual. Otherwise, GILES overnight Hospitalist Physical - Physical exam Narrative exam: General appearance: Present: no acute distress, well-nourished, obese, other (Intubated and sedated) - EENT Eyes: Present: PERRL ENT: other (Dry oral mucosa) - Neck Neck: Present: normal ROM - Respiratory Respiratory effort: normal Respiratory: bilateral: rhonchi - Cardiovascular Rhythm: regular Heart Sounds: Present: S1 & S2 - Extremities Extremities: no ischemia, pulses intact, pulses symmetrical Extremity abnormal: edema - Peripheral Assessment Bilateral Upper Extremity Edema Type: Pitting Edema Degree: 2+ Capillary Refill: < 3 seconds Skin Temperature: Warm Generalized Edema Type: Non-pitting Edema Degree: 2+ Capillary Refill: < 3 seconds Skin Temperature: Warm Peripheral Pulses: within normal limits - Abdominal General gastrointestinal: soft, non-distended, normal bowel sounds - Integumentary Integumentary: Present: warm, dry - Psychiatric Psychiatric: other (Intubated and sedated) - Neurologic Neurologic: moves all extremities (Non-purposeful movement of BUE, no movement in lower extremities), other (Intubated and sedated. Open eyes spontaneously, and tracking but does not follow commands. Pupils are round and reactive) - Allied Health Allied health notes reviewed: nursing, case management - Constitutional Vitals: Temp Pulse Resp BP Pulse Ox 99 F 110 H 20 127/81 99 04/21/22 11:53 04/21/22 12:14 04/21/22 12:14 04/21/22 12:14 04/21/22 12:14 HEART Score - HEART Score Age: > 65 Risk factors: 1-2 risk factors Troponin: Troponin T < 0.010 ng/mL (0.00-0.029) 04/09/22 12:52 Troponin: < normal limit - Critical Actions Critical Actions: 4-6 pts:12-16.6% risk of adverse cardiac event. Should be admitted Results - Labs CBC & Chem 7: 04/21/22 04:30 04/21/22 04:30 Labs: Laboratory Last Values WBC 14.8 K/mm3 (4.5-11.0) H 04/21/22 04:30 RBC 3.73 M/mm3 (3.65-5.03) 04/21/22 04:30 Hgb 10.6 gm/dl (10.1-14.3) 04/21/22 04:30 Hct 33.6 % (30.3-42.9) 04/21/22 04:30 MCV 90 fl (79-97) 04/21/22 04:30 MCH 28 pg (28-32) 04/21/22 04:30 MCHC 32 % (30-34) 04/21/22 04:30 RDW 15.9 % (13.2-15.2) H 04/21/22 04:30 Plt Count 109 K/mm3 (140-440) L 04/21/22 04:30 Lymph % (Auto) 5.7 % (13.4-35.0) L 04/12/22 00:01 [place] % (Auto) 4.5 % (0.0-7.3) 04/12/22 00:01 Eos % (Auto) 0.0 % (0.0-4.3) 04/12/22 00:01 Baso % (Auto) 0.2 % (0.0-1.8) 04/12/22 00:01 Lymph # (Auto) 0.9 K/mm3 (1.2-5.4) L 04/12/22 00:01 [place] # (Auto) 0.7 K/mm3 (0.0-0.8) 04/12/22 00:01 Eos # (Auto) 0.0 K/mm3 (0.0-0.4) 04/12/22 00:01 Baso # (Auto) 0.0 K/mm3 (0.0-0.1) 04/12/22 00:01 Add Manual Diff Complete 04/10/22 04:24 Total Counted 100 04/10/22 04:24 Seg Neutrophils % 89.6 % (40.0-70.0) H 04/12/22 00:01 Seg Neuts % (Manual) 94.0 % (40.0-70.0) H 04/10/22 04:24 Band Neutrophils % 0 % 04/10/22 04:24 Lymphocytes % (Manual) 3.0 % (13.4-35.0) L 04/10/22 04:24 Reactive Lymphs % (Man) 0 % 04/10/22 04:24 Monocytes % (Manual) 3.0 % (0.0-7.3) 04/10/22 04:24 Eosinophils % (Manual) 0 % (0.0-4.3) 04/10/22 04:24 Basophils % (Manual) 0 % (0.0-1.8) 04/10/22 04:24 Metamyelocytes % 0 % 04/10/22 04:24 Myelocytes % 0 % 04/10/22 04:24 Promyelocytes % 0 % 04/10/22 04:24 Blast Cells % 0 % 04/10/22 04:24 Nucleated RBC % Not Reportable 04/10/22 04:24 Seg Neutrophils # 14.6 K/mm3 (1.8-7.7) H 04/12/22 00:01 Seg Neutrophils # Man 15.4 K/mm3 (1.8-7.7) H 04/10/22 04:24 Band Neutrophils # 0.0 K/mm3 04/10/22 04:24 Lymphocytes # (Manual) 0.5 K/mm3 (1.2-5.4) L 04/10/22 04:24 Abs React Lymphs (Man) 0.0 K/mm3 04/10/22 04:24 Monocytes # (Manual) 0.5 K/mm3 (0.0-0.8) 04/10/22 04:24 Eosinophils # (Manual) 0.0 K/mm3 (0.0-0.4) 04/10/22 04:24 Basophils # (Manual) 0.0 K/mm3 (0.0-0.1) 04/10/22 04:24 Metamyelocytes # 0.0 K/mm3 04/10/22 04:24 Myelocytes # 0.0 K/mm3 04/10/22 04:24 Promyelocytes # 0.0 K/mm3 04/10/22 04:24 Blast Cells # 0.0 K/mm3 04/10/22 04:24 WBC Morphology Not Reportable 04/10/22 04:24 Hypersegmented Neuts Not Reportable 04/10/22 04:24 Hyposegmented Neuts Not Reportable 04/10/22 04:24 Hypogranular Neuts Not Reportable 04/10/22 04:24 Smudge Cells Not Reportable 04/10/22 04:24 Toxic Granulation Not Reportable 04/10/22 04:24 Toxic Vacuolation Not Reportable 04/10/22 04:24 Dohle Bodies Not Reportable 04/10/22 04:24 Pelger-Huet Anomaly Not Reportable 04/10/22 04:24 Aleja Rods Not Reportable 04/10/22 04:24 Platelet Estimate Consistent w auto 04/10/22 04:24 Clumped Platelets Not Reportable 04/10/22 04:24 Plt Clumps, EDTA Not Reportable 04/10/22 04:24 Large Platelets Not Reportable 04/10/22 04:24 Giant Platelets Rare 04/10/22 04:24 Platelet Satelliting Not Reportable 04/10/22 04:24 Plt Morphology Comment Not Reportable 04/10/22 04:24 RBC Morphology Normal 04/10/22 04:24 Dimorphic RBCs Not Reportable 04/10/22 04:24 Polychromasia Not Reportable 04/10/22 04:24 Hypochromasia Not Reportable 04/10/22 04:24 Poikilocytosis Not Reportable 04/10/22 04:24 Anisocytosis Not Reportable 04/10/22 04:24 Microcytosis Not Reportable 04/10/22 04:24 Macrocytosis Not Reportable 04/10/22 04:24 Spherocytes Not Reportable 04/10/22 04:24 Pappenheimer Bodies Not Reportable 04/10/22 04:24 Sickle Cells Not Reportable 04/10/22 04:24 Target Cells Not Reportable 04/10/22 04:24 Tear Drop Cells Not Reportable 04/10/22 04:24 Ovalocytes Not Reportable 04/10/22 04:24 Helmet Cells Not Reportable 04/10/22 04:24 [place] Bodies Not Reportable 04/10/22 04:24 [place] Rings Not Reportable 04/10/22 04:24 Donald Cells Not Reportable 04/10/22 04:24 Bite Cells Not Reportable 04/10/22 04:24 Crenated Cell Not Reportable 04/10/22 04:24 Elliptocytes Not Reportable 04/10/22 04:24 Acanthocytes (Spur) Not Reportable 04/10/22 04:24 Rouleaux Not Reportable 04/10/22 04:24 Hemoglobin C Crystals Not Reportable 04/10/22 04:24 Schistocytes Not Reportable 04/10/22 04:24 Malaria parasites Not Reportable 04/10/22 04:24 Allan Bodies Not Reportable 04/10/22 04:24 Hem Pathologist Commnt No 04/10/22 04:24 PT 14.5 Sec. (12.2-14.9) 04/09/22 12:52 INR 1.02 (0.87-1.13) 04/09/22 12:52 D-Dimer 3804.33 ng/mlDDU (0-234) H 04/17/22 05:12 ABG pH 7.379 pH Units (7.350-7.450) 04/20/22 04:17 ABG pCO2 55.3 mm Hg 04/20/22 04:17 ABG pO2 86.0 mm Hg (80.0-90.0) 04/20/22 04:17 ABG HCO3 31.9 mmol/L (20.0-26.0) H 04/20/22 04:17 ABG O2 Saturation 96.8 % (95.0-99.0) 04/20/22 04:17 ABG O2 Content 13.8 (0.0-44) 04/20/22 04:17 ABG Base Excess 5.7 mmol/L (-2.0-3.0) H 04/20/22 04:17 ABG Hemoglobin 10.3 gm/dl (12.0-16.0) L 04/20/22 04:17 ABG Carboxyhemoglobin 1.7 % (0.0-5.0) 04/20/22 04:17 ABG Methemoglobin 0.6 % (0.0-1.5) 04/20/22 04:17 VBG pH 7.303 (7.320-7.420) L 04/09/22 12:52 Oxyhemoglobin 94.6 % (95.0-99.0) L 04/20/22 04:17 FiO2 40 % 04/20/22 04:17 Sodium 155 mmol/L (137-145) H 04/21/22 04:30 Potassium 4.4 mmol/L (3.6-5.0) 04/21/22 04:30 Chloride 117.4 mmol/L (98-107) H 04/21/22 04:30 Carbon Dioxide 30 mmol/L (22-30) 04/21/22 04:30 Anion Gap 12 mmol/L 04/21/22 04:30 BUN 46 mg/dL (7-17) H 04/21/22 04:30 Creatinine 1.1 mg/dL (0.6-1.2) 04/21/22 04:30 Estimated GFR 58 ml/min 04/21/22 04:30 BUN/Creatinine Ratio 42 % 04/21/22 04:30 Glucose 178 mg/dL (65-100) H 04/21/22 04:30 POC Glucose 205 mg/dL (70-105) H 04/21/22 00:09 Osmolality 361 Mosm/kg 04/19/22 12:10 Lactic Acid 2.10 mmol/L (0.7-2.0) H* 04/15/22 12:00 Calcium 8.6 mg/dL (8.4-10.2) 04/21/22 04:30 Phosphorus 3.60 mg/dL (2.5-4.5) 04/14/22 07:28 Magnesium 2.90 mg/dL (1.7-2.3) H 04/14/22 07:28 Ferritin 570.8 ng/mL (10.0-200.0) H 04/18/22 05:41 Total Bilirubin 0.70 mg/dL (0.1-1.2) 04/19/22 04:00 Direct Bilirubin 0.5 mg/dL (0-0.2) H 04/16/22 04:00 Indirect Bilirubin 0.4 mg/dL 04/16/22 04:00 AST 77 units/L (5-40) H 04/19/22 04:00 ALT 208 units/L (7-56) H 04/19/22 04:00 Alkaline Phosphatase 126 units/L (35-129) 04/19/22 04:00 Ammonia 20.0 umol/L (25-60) L 04/09/22 12:52 Lactate Dehydrogenase 1473 units/L (91-180) H 04/18/22 05:41 Troponin T < 0.010 ng/mL (0.00-0.029) 04/09/22 12:52 C-Reactive Protein 0.80 mg/dL (0.00-1.30) 04/18/22 05:41 NT-Pro-B Natriuret Pep 101.1 pg/mL (0-900) 04/09/22 13:45 Total Protein 5.8 g/dL (6.3-8.2) L 04/19/22 04:00 Albumin 3.5 g/dL (3.9-5) L 04/19/22 04:00 Albumin/Globulin Ratio 1.5 % 04/19/22 04:00 Procalcitonin 3.13 ng/mL (<0.15) 04/10/22 11:47 TSH 1.560 mlU/mL (0.270-4.200) 04/09/22 12:52 Free T4 1.33 ng/dL (0.76-1.46) 04/09/22 12:52 Urine Color Yellow (Yellow) 04/09/22 13:24 Urine Turbidity Clear (Clear) 04/09/22 13:24 Urine pH 5.0 (5.0-7.0) 04/09/22 13:24 Ur Specific [place] 1.011 (1.003-1.030) 04/09/22 13:24 Urine Protein 30 mg/dl mg/dL (Negative) 04/09/22 13:24 Urine Glucose (UA) Neg mg/dL (Negative) 04/09/22 13:24 Urine Ketones 20 mg/dL (Negative) 04/09/22 13:24 Urine Blood Neg (Negative) 04/09/22 13:24 Urine Nitrite Neg (Negative) 04/09/22 13:24 Urine Bilirubin Neg (Negative) 04/09/22 13:24 Urine Urobilinogen 4.0 mg/dL (<2.0) 04/09/22 13:24 Ur Leukocyte Esterase Neg (Negative) 04/09/22 13:24 Urine WBC (Auto) 2.0 /HPF (0.0-6.0) 04/09/22 13:24 Urine RBC (Auto) < 1.0 /HPF (0.0-6.0) 04/09/22 13:24 U Epithel Cells (Auto) < 1.0 /HPF (0-13.0) 04/09/22 13:24 Urine Mucus Few /HPF 04/09/22 13:24 Urine Eosinophils None seen (None Seen) 04/10/22 14:50 Urine Osmolality 415 Mosm/kg 04/19/22 22:32 Urine Total Volume 750 ml 04/11/22 11:23 Urine Creatinine 28.3 mg/dL (0.1-20.0) H 04/19/22 22:32 Ur Creatinine 24 Hour 1.2 (0.8-2.8) 04/11/22 11:23 Height (in) Not Reportable 04/11/22 11:23 Weight (lb) Not Reportable 04/11/22 11:23 Creatinine Clearance Not Reportable 04/11/22 11:23 Protein/Creatinin Ratio 0.77 04/10/22 14:50 Urine Sodium 89 mmol/L 04/19/22 22:32 Urine Total Protein 172 mg/dL (5-11.8) H 04/10/22 14:50 Random Vancomycin 11.9 ug/mL (0-40.0) 04/11/22 03:58 Urine Opiates Screen Presumptive negative 04/09/22 22:58 Urine Methadone Screen Presumptive negative 04/09/22 22:58 Ur Barbiturates Screen Presumptive negative 04/09/22 22:58 Ur Phencyclidine Scrn Presumptive negative 04/09/22 22:58 Ur Amphetamines Screen Presumptive negative 04/09/22 22:58 U Benzodiazepines Scrn Presumptive negative 04/09/22 22:58 Urine Cocaine Screen Presumptive negative 04/09/22 22:58 U Marijuana (THC) Screen Presumptive negative 04/09/22 22:58 Drugs of Abuse Note Disclamer 04/09/22 22:58 Coronavirus (PCR) Positive (Negative) A 04/09/22 13:02 Influenza A (RT-PCR) Negative (Negative) 04/09/22 14:15 Influenza B (RT-PCR) Negative (Negative) 04/09/22 14:15 Microbiology: Microbiology 04/17/22 18:14 Peripheral/Venous Blood Culture - Preliminary NO GROWTH AFTER 72 HOURS 04/17/22 18:14 Peripheral/Venous Blood Culture - Preliminary NO GROWTH AFTER 72 HOURS 04/18/22 Unknown Tracheal Aspirate Sputum Culture - Final Kelli Albicans [place]/IV: Voiding Method Indwelling Catheter Active Medications - Current Medications Current Medications: Generic Name Dose Route Start Last Admin Trade Name Freq PRN Reason Stop Dose Admin Acetaminophen 650 mg 04/09/22 18:11 Acetaminophen 325 Mg Tab PO Q4H PRN Pain MILD(1-3)/Fever >100.5/CARCAMO Dextrose 0 ml 04/10/22 00:40 Dextrose 50% In Water (25gm) 50 Ml Syringe IV Q30MIN PRN Hypoglycemia Protocol Famotidine 10 mg 04/14/22 10:00 04/21/22 09:15 Famotidine 10 Mg Tab FEEDTUBE 10 mg BID JO ANN Administration Fentanyl 50 mcg 04/15/22 09:25 Fentanyl 100 Mcg/2 Ml Inj IV Q10MIN PRN ANALGESIA Heparin Sodium (Porcine) 5,000 unit 04/17/22 10:00 04/21/22 09:06 Heparin 5,000 Unit/1 Ml Vial SUB-Q 5,000 unit Q12HR JO ANN Administration Fentanyl Citrate 2,000 mcg in 100 mls @ 4.155 mls/hr 04/15/22 10:00 04/20/22 19:39 Fentanyl Drip Premix IV 1 mcg/kg/hr TITR JO ANN 4.155 mls/hr Administration Protocol 1 MCG/KG/HR Cefepime HCl 2 gm in 100 mls @ 200 mls/hr 04/16/22 19:00 04/21/22 06:00 Cefepime/Ns 2 Gm/100 Ml IV 200 mls/hr Q12H JO ANN Administration Protocol Insulin Glargine 40 units 04/20/22 22:00 04/20/22 22:00 Insulin Glargine 100 Units/Ml SUB-Q 40 units QHS JO ANN Administration Insulin Human Lispro 0 unit 04/18/22 12:00 04/21/22 11:55 Insulin Lispro 100 Unit/Ml SUB-Q Not Given Q6HR [facility] Protocol Metoclopramide HCl 5 mg 04/21/22 13:00 Metoclopramide 10 Mg/2 Ml Inj IV Q8H JO ANN Ondansetron HCl 4 mg 04/09/22 18:11 Ondansetron 4 Mg/2 Ml Inj IV Q8H PRN Nausea And Vomiting Senna/Docusate Sodium 2 tab 04/15/22 14:00 04/21/22 09:15 Sennosides/Docusate Sodium 8.6/50 Mg Tab FEEDTUBE 2 tab BID JO ANN Administration Sodium Chloride 10 ml 04/09/22 22:00 04/21/22 09:07 Sodium Chloride 0.9% 10 Ml Flush Syringe IV 10 ml BID JO ANN Administration Sodium Chloride 10 ml 04/09/22 18:11 Sodium Chloride 0.9% 10 Ml Flush Syringe IV PRN PRN LINE FLUSH Nutrition/Malnutrition Assess - Dietary Evaluation Nutrition/Malnutrition Findings: Nutrition Notes Start: 04/12/22 10:07 Freq: Status: Active Protocol: Document 04/15/22 15:18 RYDER (Rec: 04/15/22 15:23 [facility] [id number]) Nutrition Notes Initial or Follow up Reassessment Current Diagnosis Acute Kidney Injury,Diabetes, Sepsis,Respiratory Failure Other Pertinent Diagnosis AMS, Bilat pneu, COVID-19 (+), Hypotension Current Diet TF - Glucerna 1.2 at 55ml/hr Labs/Tests Na 146 BUN 76 Cr 1.9 BG 214 Pertinent Medications Propofol at 9.972ml/hr ( provides 263 kcal) Height 5 ft 7 in Weight 83.1 kg [place] Body Weight (kg) 61.36 BMI 28.7 Weight change and time frame 98% energy 79% pro Weight Status Overweight Subjective/Other Information Pt remains on vent support; not on pressor support at this time. Renal function being monitored closely. Observed TF infusing at goal rate. Burn Absent Trauma Absent #1 Nutrition Diagnosis Inadequate oral intake As Evidenced by Signs and Symptoms EN support continues Diagnosis Progress(for reassessment Continues documentation) Is patient on ventilator? Yes Is Patient Ambulatory and/or Out of Bed No REE-([facility]-confined to bed) [phone] Calculation Used for Recommendations [facility] Additional Notes Pro needs 1.2-2g/k-166g/ day Fluid needs 1ml/kcal Nutrition Intervention Nutrition Support: Continue Glucerna 1.2 at 55ml/ hr with 100ml water flush q4h. Kcal 1,584 Protein (gm) 79 Carbohydrates (gm) 151 Fat (gm) 79 Fluid (mL) 1,063 Fiber (gm) 21 Goal #1 TF tolerance Goal #2 TF to meet at least 75% energy and pro needs Follow-Up By: 04/22/22 Additional Comments F/U: stable TF, vent status, renal function, propofol <JS HAIDER - Last Filed: 04/22/22 07:41> Assessment and Plan Assessment and plan: I saw and evaluated the patient. I agree with the findings and the plan of care as documented in the Nurse Practitioner's~note, with the following corrections and additions. Hospitalist Physical - Constitutional Vitals: Temp Pulse Resp BP Pulse Ox 100.6 F H 120 H 24 145/91 100 04/22/22 03:14 04/22/22 05:46 04/22/22 05:46 04/22/22 05:46 04/22/22 05:46 HEART Score - HEART Score Troponin: Troponin T < 0.010 ng/mL (0.00-0.029) 04/09/22 12:52 Results - Labs CBC & Chem 7: 04/22/22 02:30 04/22/22 02:30 Labs: Laboratory Last Values WBC 14.8 K/mm3 (4.5-11.0) H 04/22/22 02:30 RBC 3.41 M/mm3 (3.65-5.03) L 04/22/22 02:30 Hgb 9.9 gm/dl (10.1-14.3) L 04/22/22 02:30 Hct 30.4 % (30.3-42.9) 04/22/22 02:30 MCV 89 fl (79-97) 04/22/22 02:30 MCH 29 pg (28-32) 04/22/22 02:30 MCHC 33 % (30-34) 04/22/22 02:30 RDW 16.2 % (13.2-15.2) H 04/22/22 02:30 Plt Count 101 K/mm3 (140-440) L 04/22/22 02:30 Lymph % (Auto) 5.7 % (13.4-35.0) L 04/12/22 00:01 [place] % (Auto) 4.5 % (0.0-7.3) 04/12/22 00:01 Eos % (Auto) 0.0 % (0.0-4.3) 04/12/22 00:01 Baso % (Auto) 0.2 % (0.0-1.8) 04/12/22 00:01 Lymph # (Auto) 0.9 K/mm3 (1.2-5.4) L 04/12/22 00:01 [place] # (Auto) 0.7 K/mm3 (0.0-0.8) 04/12/22 00:01 Eos # (Auto) 0.0 K/mm3 (0.0-0.4) 04/12/22 00:01 Baso # (Auto) 0.0 K/mm3 (0.0-0.1) 04/12/22 00:01 Add Manual Diff Complete 04/10/22 04:24 Total Counted 100 04/10/22 04:24 Seg Neutrophils % 89.6 % (40.0-70.0) H 04/12/22 00:01 Seg Neuts % (Manual) 94.0 % (40.0-70.0) H 04/10/22 04:24 Band Neutrophils % 0 % 04/10/22 04:24 Lymphocytes % (Manual) 3.0 % (13.4-35.0) L 04/10/22 04:24 Reactive Lymphs % (Man) 0 % 04/10/22 04:24 Monocytes % (Manual) 3.0 % (0.0-7.3) 04/10/22 04:24 Eosinophils % (Manual) 0 % (0.0-4.3) 04/10/22 04:24 Basophils % (Manual) 0 % (0.0-1.8) 04/10/22 04:24 Metamyelocytes % 0 % 04/10/22 04:24 Myelocytes % 0 % 04/10/22 04:24 Promyelocytes % 0 % 04/10/22 04:24 Blast Cells % 0 % 04/10/22 04:24 Nucleated RBC % Not Reportable 04/10/22 04:24 Seg Neutrophils # 14.6 K/mm3 (1.8-7.7) H 04/12/22 00:01 Seg Neutrophils # Man 15.4 K/mm3 (1.8-7.7) H 04/10/22 04:24 Band Neutrophils # 0.0 K/mm3 04/10/22 04:24 Lymphocytes # (Manual) 0.5 K/mm3 (1.2-5.4) L 04/10/22 04:24 Abs React Lymphs (Man) 0.0 K/mm3 04/10/22 04:24 Monocytes # (Manual) 0.5 K/mm3 (0.0-0.8) 04/10/22 04:24 Eosinophils # (Manual) 0.0 K/mm3 (0.0-0.4) 04/10/22 04:24 Basophils # (Manual) 0.0 K/mm3 (0.0-0.1) 04/10/22 04:24 Metamyelocytes # 0.0 K/mm3 04/10/22 04:24 Myelocytes # 0.0 K/mm3 04/10/22 04:24 Promyelocytes # 0.0 K/mm3 04/10/22 04:24 Blast Cells # 0.0 K/mm3 04/10/22 04:24 WBC Morphology Not Reportable 04/10/22 04:24 Hypersegmented Neuts Not Reportable 04/10/22 04:24 Hyposegmented Neuts Not Reportable 04/10/22 04:24 Hypogranular Neuts Not Reportable 04/10/22 04:24 Smudge Cells Not Reportable 04/10/22 04:24 Toxic Granulation Not Reportable 04/10/22 04:24 Toxic Vacuolation Not Reportable 04/10/22 04:24 Dohle Bodies Not Reportable 04/10/22 04:24 Pelger-Huet Anomaly Not Reportable 04/10/22 04:24 Aleja Rods Not Reportable 04/10/22 04:24 Platelet Estimate Consistent w auto 04/10/22 04:24 Clumped Platelets Not Reportable 04/10/22 04:24 Plt Clumps, EDTA Not Reportable 04/10/22 04:24 Large Platelets Not Reportable 04/10/22 04:24 Giant Platelets Rare 04/10/22 04:24 Platelet Satelliting Not Reportable 04/10/22 04:24 Plt Morphology Comment Not Reportable 04/10/22 04:24 RBC Morphology Normal 04/10/22 04:24 Dimorphic RBCs Not Reportable 04/10/22 04:24 Polychromasia Not Reportable 04/10/22 04:24 Hypochromasia Not Reportable 04/10/22 04:24 Poikilocytosis Not Reportable 04/10/22 04:24 Anisocytosis Not Reportable 04/10/22 04:24 Microcytosis Not Reportable 04/10/22 04:24 Macrocytosis Not Reportable 04/10/22 04:24 Spherocytes Not Reportable 04/10/22 04:24 Pappenheimer Bodies Not Reportable 04/10/22 04:24 Sickle Cells Not Reportable 04/10/22 04:24 Target Cells Not Reportable 04/10/22 04:24 Tear Drop Cells Not Reportable 04/10/22 04:24 Ovalocytes Not Reportable 04/10/22 04:24 Helmet Cells Not Reportable 04/10/22 04:24 [place] Bodies Not Reportable 04/10/22 04:24 Mcfarland Rings Not Reportable 04/10/22 04:24 Donald Cells Not Reportable 04/10/22 04:24 Bite Cells Not Reportable 04/10/22 04:24 Crenated Cell Not Reportable 04/10/22 04:24 Elliptocytes Not Reportable 04/10/22 04:24 Acanthocytes (Spur) Not Reportable 04/10/22 04:24 Rouleaux Not Reportable 04/10/22 04:24 Hemoglobin C Crystals Not Reportable 04/10/22 04:24 Schistocytes Not Reportable 04/10/22 04:24 Malaria parasites Not Reportable 04/10/22 04:24 Allan Bodies Not Reportable 04/10/22 04:24 Hem Pathologist Commnt No 04/10/22 04:24 PT 14.5 Sec. (12.2-14.9) 04/09/22 12:52 INR 1.02 (0.87-1.13) 04/09/22 12:52 D-Dimer 3804.33 ng/mlDDU (0-234) H 04/17/22 05:12 ABG pH 7.379 pH Units (7.350-7.450) 04/20/22 04:17 ABG pCO2 55.3 mm Hg 04/20/22 04:17 ABG pO2 86.0 mm Hg (80.0-90.0) 04/20/22 04:17 ABG HCO3 31.9 mmol/L (20.0-26.0) H 04/20/22 04:17 ABG O2 Saturation 96.8 % (95.0-99.0) 04/20/22 04:17 ABG O2 Content 13.8 (0.0-44) 04/20/22 04:17 ABG Base Excess 5.7 mmol/L (-2.0-3.0) H 04/20/22 04:17 ABG Hemoglobin 10.3 gm/dl (12.0-16.0) L 04/20/22 04:17 ABG Carboxyhemoglobin 1.7 % (0.0-5.0) 04/20/22 04:17 ABG Methemoglobin 0.6 % (0.0-1.5) 04/20/22 04:17 VBG pH 7.303 (7.320-7.420) L 04/09/22 12:52 Oxyhemoglobin 94.6 % (95.0-99.0) L 04/20/22 04:17 FiO2 40 % 04/20/22 04:17 Sodium 150 mmol/L (137-145) H 04/22/22 02:30 Potassium 4.4 mmol/L (3.6-5.0) 04/22/22 02:30 Chloride 114.1 mmol/L (98-107) H 04/22/22 02:30 Carbon Dioxide 29 mmol/L (22-30) 04/22/22 02:30 Anion Gap 11 mmol/L 04/22/22 02:30 BUN 43 mg/dL (7-17) H 04/22/22 02:30 Creatinine 1.1 mg/dL (0.6-1.2) 04/22/22 02:30 Estimated GFR 58 ml/min 04/22/22 02:30 BUN/Creatinine Ratio 39 % 04/22/22 02:30 Glucose 186 mg/dL (65-100) H 04/22/22 02:30 POC Glucose 167 mg/dL (70-105) H 04/22/22 05:06 Osmolality 361 Mosm/kg 04/19/22 12:10 Lactic Acid 2.10 mmol/L (0.7-2.0) H* 04/15/22 12:00 Calcium 8.7 mg/dL (8.4-10.2) 04/22/22 02:30 Phosphorus 3.60 mg/dL (2.5-4.5) 04/14/22 07:28 Magnesium 2.90 mg/dL (1.7-2.3) H 04/14/22 07:28 Ferritin 570.8 ng/mL (10.0-200.0) H 04/18/22 05:41 Total Bilirubin 0.60 mg/dL (0.1-1.2) 04/22/22 02:30 Direct Bilirubin 0.5 mg/dL (0-0.2) H 04/16/22 04:00 Indirect Bilirubin 0.4 mg/dL 04/16/22 04:00 AST 46 units/L (5-40) H 04/22/22 02:30 ALT 105 units/L (7-56) H 04/22/22 02:30 Alkaline Phosphatase 122 units/L (35-129) 04/22/22 02:30 Ammonia 20.0 umol/L (25-60) L 04/09/22 12:52 Lactate Dehydrogenase 1473 units/L (91-180) H 04/18/22 05:41 Troponin T < 0.010 ng/mL (0.00-0.029) 04/09/22 12:52 C-Reactive Protein 0.80 mg/dL (0.00-1.30) 04/18/22 05:41 NT-Pro-B Natriuret Pep 101.1 pg/mL (0-900) 04/09/22 13:45 Total Protein 4.9 g/dL (6.3-8.2) L 04/22/22 02:30 Albumin 3.2 g/dL (3.9-5) L 04/22/22 02:30 Albumin/Globulin Ratio 1.9 % 04/22/22 02:30 Procalcitonin 3.13 ng/mL (<0.15) 04/10/22 11:47 TSH 1.560 mlU/mL (0.270-4.200) 04/09/22 12:52 Free T4 1.33 ng/dL (0.76-1.46) 04/09/22 12:52 Urine Color Yellow (Yellow) 04/09/22 13:24 Urine Turbidity Clear (Clear) 04/09/22 13:24 Urine pH 5.0 (5.0-7.0) 04/09/22 13:24 Ur Specific [place] 1.011 (1.003-1.030) 04/09/22 13:24 Urine Protein 30 mg/dl mg/dL (Negative) 04/09/22 13:24 Urine Glucose (UA) Neg mg/dL (Negative) 04/09/22 13:24 Urine Ketones 20 mg/dL (Negative) 04/09/22 13:24 Urine Blood Neg (Negative) 04/09/22 13:24 Urine Nitrite Neg (Negative) 04/09/22 13:24 Urine Bilirubin Neg (Negative) 04/09/22 13:24 Urine Urobilinogen 4.0 mg/dL (<2.0) 04/09/22 13:24 Ur Leukocyte Esterase Neg (Negative) 04/09/22 13:24 Urine WBC (Auto) 2.0 /HPF (0.0-6.0) 04/09/22 13:24 Urine RBC (Auto) < 1.0 /HPF (0.0-6.0) 04/09/22 13:24 U Epithel Cells (Auto) < 1.0 /HPF (0-13.0) 04/09/22 13:24 Urine Mucus Few /HPF 04/09/22 13:24 Urine Eosinophils None seen (None Seen) 04/10/22 14:50 Urine Osmolality 415 Mosm/kg 04/19/22 22:32 Urine Total Volume 750 ml 04/11/22 11:23 Urine Creatinine 28.3 mg/dL (0.1-20.0) H 04/19/22 22:32 Ur Creatinine 24 Hour 1.2 (0.8-2.8) 04/11/22 11:23 Height (in) Not Reportable 04/11/22 11:23 Weight (lb) Not Reportable 04/11/22 11:23 Creatinine Clearance Not Reportable 04/11/22 11:23 Protein/Creatinin Ratio 0.77 04/10/22 14:50 Urine Sodium 89 mmol/L 04/19/22 22:32 Urine Total Protein 172 mg/dL (5-11.8) H 04/10/22 14:50 Random Vancomycin 11.9 ug/mL (0-40.0) 04/11/22 03:58 Urine Opiates Screen Presumptive negative 04/09/22 22:58 Urine Methadone Screen Presumptive negative 04/09/22 22:58 Ur Barbiturates Screen Presumptive negative 04/09/22 22:58 Ur Phencyclidine Scrn Presumptive negative 04/09/22 22:58 Ur Amphetamines Screen Presumptive negative 04/09/22 22:58 U Benzodiazepines Scrn Presumptive negative 04/09/22 22:58 Urine Cocaine Screen Presumptive negative 04/09/22 22:58 U Marijuana (THC) Screen Presumptive negative 04/09/22 22:58 Drugs of Abuse Note Disclamer 04/09/22 22:58 Coronavirus (PCR) Positive (Negative) A 04/09/22 13:02 Influenza A (RT-PCR) Negative (Negative) 04/09/22 14:15 Influenza B (RT-PCR) Negative (Negative) 04/09/22 14:15 Microbiology: Microbiology 04/17/22 18:14 Peripheral/Venous Blood Culture - Preliminary NO GROWTH AFTER 4 DAYS 04/17/22 18:14 Peripheral/Venous Blood Culture - Preliminary NO GROWTH AFTER 4 DAYS [place]/IV: Voiding Method Indwelling Catheter Active Medications - Current Medications Current Medications: Generic Name Dose Route Start Last Admin Trade Name Freq PRN Reason Stop Dose Admin Acetaminophen 650 mg 04/09/22 18:11 04/22/22 05:50 Acetaminophen 325 Mg Tab PO 650 mg Q4H PRN Administration Pain MILD(1-3)/Fever >100.5/CARCAMO Dextrose 0 ml 04/10/22 00:40 Dextrose 50% In Water (25gm) 50 Ml Syringe IV Q30MIN PRN Hypoglycemia Protocol Famotidine 10 mg 04/14/22 10:00 04/21/22 21:00 Famotidine 10 Mg Tab FEEDTUBE 10 mg BID JO ANN Administration Fentanyl 50 mcg 04/15/22 09:25 Fentanyl 100 Mcg/2 Ml Inj IV Q10MIN PRN ANALGESIA Heparin Sodium (Porcine) 5,000 unit 04/17/22 10:00 04/21/22 20:59 Heparin 5,000 Unit/1 Ml Vial SUB-Q 5,000 unit Q12HR JO ANN Administration Fentanyl Citrate 2,000 mcg in 100 mls @ 4.155 mls/hr 04/15/22 10:00 04/21/22 15:16 Fentanyl Drip Premix IV 0 mcg/kg/hr TITR JO ANN 0 mls/hr Titration Protocol 1 MCG/KG/HR Cefepime HCl 2 gm in 100 mls @ 200 mls/hr 04/16/22 19:00 04/22/22 06:00 Cefepime/Ns 2 Gm/100 Ml IV 200 mls/hr Q12H JO ANN Administration Protocol Insulin Glargine 40 units 04/20/22 22:00 04/21/22 20:59 Insulin Glargine 100 Units/Ml SUB-Q 40 units QHS JO ANN Administration Insulin Human Lispro 0 unit 04/18/22 12:00 04/22/22 05:13 Insulin Lispro 100 Unit/Ml SUB-Q 3 unit Q6HR JO ANN Administration Protocol Metoclopramide HCl 5 mg 04/21/22 14:00 04/22/22 05:13 Metoclopramide 10 Mg/2 Ml Inj IV 04/23/22 13:59 5 mg Q8H JO ANN Administration Ondansetron HCl 4 mg 04/09/22 18:11 Ondansetron 4 Mg/2 Ml Inj IV Q8H PRN Nausea And Vomiting Senna/Docusate Sodium 2 tab 04/15/22 14:00 04/21/22 21:00 Sennosides/Docusate Sodium 8.6/50 Mg Tab FEEDTUBE 2 tab BID JO ANN Administration Sodium Chloride 10 ml 04/09/22 22:00 04/21/22 21:00 Sodium Chloride 0.9% 10 Ml Flush Syringe IV 10 ml BID JO ANN Administration Sodium Chloride 10 ml 04/09/22 18:11 Sodium Chloride 0.9% 10 Ml Flush Syringe IV PRN PRN LINE FLUSH Nutrition/Malnutrition Assess - Dietary Evaluation Nutrition/Malnutrition Findings: Nutrition Notes Start: 04/12/22 10:07 Freq: Status: Active Protocol: Document 04/15/22 15:18 RYDER (Rec: 04/15/22 15:23 MERLINJONATHON [id number]) Nutrition Notes Initial or Follow up Reassessment Current Diagnosis Acute Kidney Injury,Diabetes, Sepsis,Respiratory Failure Other Pertinent Diagnosis AMS, Bilat pneu, COVID-19 (+), Hypotension Current Diet TF - Glucerna 1.2 at 55ml/hr Labs/Tests Na 146 BUN 76 Cr 1.9 BG 214 Pertinent Medications Propofol at 9.972ml/hr ( provides 263 kcal) Height 5 ft 7 in Weight 83.1 kg [place] Body Weight (kg) 61.36 BMI 28.7 Weight change and time frame 98% energy 79% pro Weight Status Overweight Subjective/Other Information Pt remains on vent support; not on pressor support at this time. Renal function being monitored closely. Observed TF infusing at goal rate. Burn Absent Trauma Absent #1 Nutrition Diagnosis Inadequate oral intake As Evidenced by Signs and Symptoms EN support continues Diagnosis Progress(for reassessment Continues documentation) Is patient on ventilator? Yes Is Patient Ambulatory and/or Out of Bed No REE-([facility]-confined to bed) [phone] Calculation Used for Recommendations [facility] Additional Notes Pro needs 1.2-2g/k-166g/ day Fluid needs 1ml/kcal Nutrition Intervention Nutrition Support: Continue Glucerna 1.2 at 55ml/ hr with 100ml water flush q4h. Kcal 1,584 Protein (gm) 79 Carbohydrates (gm) 151 Fat (gm) 79 Fluid (mL) 1,063 Fiber (gm) 21 Goal #1 TF tolerance Goal #2 TF to meet at least 75% energy and pro needs Follow-Up By: 04/22/22 Additional Comments F/U: stable TF, vent status, renal function, propofol
[2022-04-21] MEDS: METOCLOPRAMIDE 10 MG/2 ML INJ IV SCH ×2 (13:15→21:00)
--- NOTE | 2022-04-21 14:43 | Progress Note ---
Assessment and Plan Assessment: Acute kidney injury likely secondary to Ischemic ATN due to Sepsis and Hypotension COVID positive Sepsis Hypotension Diabetes Mellitus/DKA Acute Respiratory Failure Hypokalemia, now Hyperkalemic Metabolic Acidosis Hypophosphatemia Plan: -Labs reviewed, most recent serum Na level was 153 today, yesterday's serum Na level was 158 -Continue free water flushes 400 ml q 4 hrs -Check serum Na level q 6 hrs, goal is to decrease serum Na level < 10 mmol/l within 24 hrs -Renal function reviewed, SCr level was 1.1 today, yesterday's SCr level was 1.1 -Baseline serum creatinine unknown. -Renal ultrasound negative for obstruction -COVID positive as per ID -Renally dose medications -Monitor I/O's daily -Intake= 2390 ml Output= 3050 ml (Net= -659 ml) -Renal plan reviewed by Dr. Lang Subjective Date of service: 04/21/22 Principal diagnosis: encephalopathy Interval history: Labs reviewed Pt intubated in ICU Pt with covid-19, reviewed medical chart, labs, and notes Objective - Vital Signs Vital signs: Vital Signs - 12hr 04/21/22 04/21/22 04/21/22 03:00 04:00 05:00 Temperature 98.2 F Pulse Rate 119 H 112 H 111 H Pulse Rate [ 112 H From Monitor] Respiratory 26 H 19 21 Rate Blood Pressure 142/79 154/79 150/81 O2 Sat by Pulse 98 99 99 Oximetry 04/21/22 04/21/22 04/21/22 06:00 07:00 08:00 Temperature 98.8 F Pulse Rate 106 H 108 H 112 H Pulse Rate [ 111 H From Monitor] Respiratory 22 22 22 Rate Blood Pressure 140/74 131/68 160/73 O2 Sat by Pulse 99 100 99 Oximetry 04/21/22 04/21/22 04/21/22 09:00 09:21 10:00 Temperature Pulse Rate 110 H 113 H 106 H Pulse Rate [ From Monitor] Respiratory 22 18 Rate Blood Pressure 128/78 133/82 153/87 O2 Sat by Pulse 99 99 100 Oximetry 04/21/22 04/21/22 04/21/22 10:58 11:00 11:02 Temperature Pulse Rate 107 H 111 H 112 H Pulse Rate [ From Monitor] Respiratory 18 22 25 H Rate Blood Pressure 145/81 145/81 145/81 O2 Sat by Pulse 100 100 99 Oximetry 04/21/22 04/21/22 04/21/22 11:04 11:06 11:08 Temperature Pulse Rate 109 H 111 H 113 H Pulse Rate [ From Monitor] Respiratory 20 20 24 Rate Blood Pressure 145/81 145/81 145/81 O2 Sat by Pulse 100 99 99 Oximetry 04/21/22 04/21/22 04/21/22 11:10 11:11 11:12 Temperature Pulse Rate 112 H 111 H 112 H Pulse Rate [ From Monitor] Respiratory 20 22 20 Rate Blood Pressure 151/86 151/86 O2 Sat by Pulse 99 99 100 Oximetry 04/21/22 04/21/22 04/21/22 11:14 11:16 11:18 Temperature Pulse Rate 112 H 111 H 108 H Pulse Rate [ From Monitor] Respiratory 23 22 20 Rate Blood Pressure 151/86 151/86 151/86 O2 Sat by Pulse 98 100 99 Oximetry 04/21/22 04/21/22 04/21/22 11:20 11:22 11:24 Temperature Pulse Rate 111 H 112 H 109 H Pulse Rate [ From Monitor] Respiratory 21 20 19 Rate Blood Pressure 145/81 145/81 145/81 O2 Sat by Pulse 99 100 99 Oximetry 04/21/22 04/21/22 04/21/22 11:26 11:28 11:30 Temperature Pulse Rate 112 H 112 H 111 H Pulse Rate [ From Monitor] Respiratory 22 25 H 18 Rate Blood Pressure 145/81 145/81 145/81 O2 Sat by Pulse 99 99 100 Oximetry 04/21/22 04/21/22 04/21/22 11:32 11:33 11:34 Temperature Pulse Rate 109 H 111 H 109 H Pulse Rate [ From Monitor] Respiratory 20 21 19 Rate Blood Pressure 145/81 151/86 145/81 O2 Sat by Pulse 99 100 100 Oximetry 04/21/22 04/21/22 04/21/22 11:36 11:38 11:40 Temperature Pulse Rate 112 H 112 H 112 H Pulse Rate [ From Monitor] Respiratory 22 21 23 Rate Blood Pressure 145/81 145/81 145/81 O2 Sat by Pulse 99 100 100 Oximetry 04/21/22 04/21/22 04/21/22 11:41 11:42 11:44 Temperature Pulse Rate 111 H 110 H 109 H Pulse Rate [ From Monitor] Respiratory 22 22 18 Rate Blood Pressure 135/79 135/79 135/79 O2 Sat by Pulse 99 99 99 Oximetry 04/21/22 04/21/22 04/21/22 11:45 11:46 11:48 Temperature Pulse Rate 107 H 113 H 109 H Pulse Rate [ From Monitor] Respiratory 19 24 19 Rate Blood Pressure 135/79 135/79 135/79 O2 Sat by Pulse 99 99 100 Oximetry 04/21/22 04/21/22 04/21/22 11:50 11:52 11:53 Temperature 99 F Pulse Rate 111 H 113 H Pulse Rate [ From Monitor] Respiratory 21 22 Rate Blood Pressure 135/79 135/79 O2 Sat by Pulse 100 99 Oximetry 04/21/22 04/21/22 04/21/22 11:54 11:56 11:58 Temperature Pulse Rate 110 H 108 H 111 H Pulse Rate [ 112 H From Monitor] Respiratory 20 19 23 Rate Blood Pressure 135/79 135/79 135/79 O2 Sat by Pulse 100 100 99 Oximetry 04/21/22 04/21/22 04/21/22 12:00 12:02 12:04 Temperature Pulse Rate 113 H 111 H 112 H Pulse Rate [ From Monitor] Respiratory 23 22 22 Rate Blood Pressure 135/79 135/79 135/79 O2 Sat by Pulse 99 100 99 Oximetry 04/21/22 04/21/22 04/21/22 12:06 12:08 12:10 Temperature Pulse Rate 111 H 110 H 111 H Pulse Rate [ From Monitor] Respiratory 20 20 22 Rate Blood Pressure 135/79 135/79 135/79 O2 Sat by Pulse 99 99 99 Oximetry 04/21/22 04/21/22 04/21/22 12:11 12:12 12:14 Temperature Pulse Rate 107 H 110 H 110 H Pulse Rate [ From Monitor] Respiratory 19 21 20 Rate Blood Pressure 127/81 127/81 127/81 O2 Sat by Pulse 99 100 99 Oximetry 04/21/22 04/21/22 12:30 13:00 Temperature Pulse Rate 108 H 110 H Pulse Rate [ From Monitor] Respiratory 20 22 Rate Blood Pressure 127/81 124/73 O2 Sat by Pulse 99 100 Oximetry - Lab 04/21/22 04:30 04/21/22 13:12 Most recent lab results ABG pH 7.379 pH Units (7.350-7.450) 04/20/22 04:17 ABG pCO2 55.3 mm Hg 04/20/22 04:17 ABG pO2 86.0 mm Hg (80.0-90.0) 04/20/22 04:17 ABG HCO3 31.9 mmol/L (20.0-26.0) H 04/20/22 04:17 ABG O2 Saturation 96.8 % (95.0-99.0) 04/20/22 04:17 Calcium 8.6 mg/dL (8.4-10.2) 04/21/22 04:30 Phosphorus 3.60 mg/dL (2.5-4.5) 04/14/22 07:28 Magnesium 2.90 mg/dL (1.7-2.3) H 04/14/22 07:28 Urine Creatinine 28.3 mg/dL (0.1-20.0) H 04/19/22 22:32 Urine Sodium 89 mmol/L 04/19/22 22:32 Urine Total Protein 172 mg/dL (5-11.8) H 04/10/22 14:50 Medications & Allergies - Medications Allergies/Adverse Reactions: Allergies No Known Allergies Allergy (Verified 04/09/22 13:44) Active Medications: Generic Name Dose Route Start Last Admin Trade Name Freq PRN Reason Stop Dose Admin Acetaminophen 650 mg 04/09/22 18:11 Acetaminophen 325 Mg Tab PO Q4H PRN Pain MILD(1-3)/Fever >100.5/CARCAMO Dextrose 0 ml 04/10/22 00:40 Dextrose 50% In Water (25gm) 50 Ml Syringe IV Q30MIN PRN Hypoglycemia Protocol Famotidine 10 mg 04/14/22 10:00 04/21/22 09:15 Famotidine 10 Mg Tab FEEDTUBE 10 mg BID JO ANN Administration Fentanyl 50 mcg 04/15/22 09:25 Fentanyl 100 Mcg/2 Ml Inj IV Q10MIN PRN ANALGESIA Heparin Sodium (Porcine) 5,000 unit 04/17/22 10:00 04/21/22 09:06 Heparin 5,000 Unit/1 Ml Vial SUB-Q 5,000 unit Q12HR JO ANN Administration Fentanyl Citrate 2,000 mcg in 100 mls @ 4.155 mls/hr 04/15/22 10:00 04/20/22 19:39 Fentanyl Drip Premix IV 1 mcg/kg/hr TITR JO ANN 4.155 mls/hr Administration Protocol 1 MCG/KG/HR Cefepime HCl 2 gm in 100 mls @ 200 mls/hr 04/16/22 19:00 04/21/22 06:00 Cefepime/Ns 2 Gm/100 Ml IV 200 mls/hr Q12H JO ANN Administration Protocol Insulin Glargine 40 units 04/20/22 22:00 04/20/22 22:00 Insulin Glargine 100 Units/Ml SUB-Q 40 units QHS JO ANN Administration Insulin Human Lispro 0 unit 04/18/22 12:00 04/21/22 11:55 Insulin Lispro 100 Unit/Ml SUB-Q Not Given Q6HR [facility] Protocol Metoclopramide HCl 5 mg 04/21/22 14:00 04/21/22 13:15 Metoclopramide 10 Mg/2 Ml Inj IV 04/23/22 13:59 5 mg Q8H JO ANN Administration Ondansetron HCl 4 mg 04/09/22 18:11 Ondansetron 4 Mg/2 Ml Inj IV Q8H PRN Nausea And Vomiting Senna/Docusate Sodium 2 tab 04/15/22 14:00 04/21/22 09:15 Sennosides/Docusate Sodium 8.6/50 Mg Tab FEEDTUBE 2 tab BID JO ANN Administration Sodium Chloride 10 ml 04/09/22 22:00 04/21/22 09:07 Sodium Chloride 0.9% 10 Ml Flush Syringe IV 10 ml BID JO ANN Administration Sodium Chloride 10 ml 04/09/22 18:11 Sodium Chloride 0.9% 10 Ml Flush Syringe IV PRN PRN LINE FLUSH
[2022-04-21] MEDS: INSULIN GLARGINE 100 UNITS/ML SUB-Q SCH (20:59)
[2022-04-22] MEDS: INSULIN LISPRO 100 UNIT/ML SUB-Q SCH ×5 (02:19→23:35)
[2022-04-22 03:23] LABS: Hematocrit 30.4 % (30.3-42.9); Hemoglobin 9.9 gm/dl (10.1-14.3); Mean Corpuscular HGB Conc 33 % (30-34); Mean Corpuscular Volume 89 fl (79-97); Platelet Count 101 K/mm3 (140-440); Red Blood Count 3.41 M/mm3 (3.65-5.03); Red Cell Distribution Width 16.2 % (13.2-15.2)
[2022-04-22 03:43] LABS: Albumin 3.2 g/dL (3.9-5); Calcium 8.7 mg/dL (8.4-10.2)
[2022-04-22] MEDS: METOCLOPRAMIDE 10 MG/2 ML INJ IV SCH ×3 (05:13→21:00)
[2022-04-22] MEDS: ACETAMINOPHEN 325 MG TAB PO PRN ×2 (05:50→20:06)
[2022-04-22] MEDS: CEFEPIME/NS 2 GM/100 ML 2 GM/100 ML BAG IV SCH (06:00)
[2022-04-22] MEDS: HEPARIN 5,000 UNIT/1 ML VIAL SUB-Q SCH ×2 (09:43→21:00)
[2022-04-22] MEDS: SENNOSIDES/DOCUSATE SODIUM 8.6/50 MG TAB FEEDTUBE SCH ×2 (09:45→21:00)
[2022-04-22] MEDS: FAMOTIDINE 20 MG TAB FEEDTUBE SCH ×2 (09:45→21:00)
--- NOTE | 2022-04-22 11:27 | Progress Note ---
Assessment and Plan Cultures: SARS CoV2 PCR: Positive Influenza PCR: Negative 04/09/2022 blood culture: no growth. 04/09/2022 resp culture: Usual respiratory catherine A/P: 77-year-old female with diabetes, history of ovarian cancer believed to be in remission was admitted with altered mental status: #Septic shock, probably secondary to severe COVID-19. ABG showed severe acidosis. UA without pyuria. Chest x-ray showed bilateral airspace opacities. Off pressors now. #Bilateral pneumonia: Secondary to COVID-19. Unvaccinated. Actemra administered 04/10/2022. CRP 11.3, procalcitonin 3.3, ferritin 1218, LDH 482. #Acute hypoxic respiratory failure: Requiring mechanical ventilation. #ASHLEY: Renally adjust antibiotics. #Transaminitis #Acute encephalopathy: Neurology following. Recs: -IV/PO Dexamethasone x 10 days -Due to renal failure, not a candidate for Remdesivir -S/p Actemra 04/10/2022 -prophylactic anticoagulation based on d-dimer per hospital protocol -New fevers despite cefepime, will change to meropenem. -Check new blood and respiratory cultures -trend ferritin, d-dimer, CRP every 2-3 days -Guarded prognosis Laura Sahu MD [facility] O: [phone] F: [phone] Subjective Date of service: 04/22/22 Principal diagnosis: encephalopathy Interval history: Febrile to 100.6, tachycardic. White count elevated at 14.8 sputum culture with Kelli. Remains on the vent. Imaging personally reviewed: Chest x-ray: Similar opacities to previous. Objective - Exam Narrative Exam: Physical Exam: Constitutional: sedated, intubated, on the vent Head, Ears, Nose: Normocephalic, atraumatic. External ears, nose normal Eyes: Conjunctivae/corneas clear. No icterus. No ptosis. Neck: intubated Oral: intubated Cardiovascular: S1, S2 + Respiratory: AE fair bilaterally and equal GI: Soft, bowel sounds + Musculoskeletal: No pedal edema, no cyanosis. Skin: No rash or abscess Hem/Lymphatic: No palpable cervical or supraclavicular nodes. Psych: no agitation Neurological: sedated, intubated, on the vent, exam limited - Constitutional Vitals: Vital Signs Temp Pulse Resp BP Pulse Ox 99.7 F H 127 H 16 140/83 100 04/22/22 08:00 04/22/22 10:00 04/22/22 10:00 04/22/22 10:00 04/22/22 10:00 Temperature -Last 24 Hours Temperature 99.7 F Temperature 100.6 F Temperature 97.4 F Temperature 100.3 F Temperature 98.5 F Temperature 99 F - Labs CBC & Chem 7: 04/22/22 02:30 04/22/22 02:30 Labs: Abnormal lab results 04/21/22 04/21/22 04/21/22 Range/Units 11:46 13:12 16:59 WBC (4.5-11.0) K/mm3 RBC (3.65-5.03) M/mm3 Hgb (10.1-14.3) gm/dl RDW (13.2-15.2) % Plt Count (140-440) K/mm3 Sodium 153 H (137-145) mmol/L Chloride (98-107) mmol/L BUN (7-17) mg/dL Glucose (65-100) mg/dL POC Glucose 113 H 112 H (70-105) mg/dL AST (5-40) units/L ALT (7-56) units/L Total Protein (6.3-8.2) g/dL Albumin (3.9-5) g/dL 04/21/22 04/21/22 04/21/22 Range/Units 20:13 20:57 23:50 WBC (4.5-11.0) K/mm3 RBC (3.65-5.03) M/mm3 Hgb (10.1-14.3) gm/dl RDW (13.2-15.2) % Plt Count (140-440) K/mm3 Sodium 152 H (137-145) mmol/L Chloride (98-107) mmol/L BUN (7-17) mg/dL Glucose (65-100) mg/dL POC Glucose 128 H 146 H (70-105) mg/dL AST (5-40) units/L ALT (7-56) units/L Total Protein (6.3-8.2) g/dL Albumin (3.9-5) g/dL 04/22/22 04/22/22 04/22/22 Range/Units 02:30 02:30 05:06 WBC 14.8 H (4.5-11.0) K/mm3 RBC 3.41 L (3.65-5.03) M/mm3 Hgb 9.9 L (10.1-14.3) gm/dl RDW 16.2 H (13.2-15.2) % Plt Count 101 L (140-440) K/mm3 Sodium 150 H (137-145) mmol/L Chloride 114.1 H (98-107) mmol/L BUN 43 H (7-17) mg/dL Glucose 186 H (65-100) mg/dL POC Glucose 167 H (70-105) mg/dL AST 46 H (5-40) units/L ALT 105 H (7-56) units/L Total Protein 4.9 L (6.3-8.2) g/dL Albumin 3.2 L (3.9-5) g/dL
--- NOTE | 2022-04-22 11:34 | Progress Note ---
Assessment and Plan 77 y/o female with multisystem organ failure, COVID positive 04/22/22: WIll need repeat COVID test tomorrow. Attempt PSV as tolerated. Na remains elevated, will defer to renal. Guarded to poor prognosis. 04/19/22: Down to 6 of PEEP and 40%. Not breathing over the vent. Will get ABG tomorrow. Na continues to increase. Sending serum and urine osms. Follow up any new renal recs for today. Plan for trach and peg later this afternoon. Prognosis remains guarded to poor. 04/18/22: Peep and FiO2 weaned this am. No blood gas this am but sat is 100. Will order ABG for tomorrow morning. Will order repeat CMP and ask that phlebo lucho do a fresh stick on patient and not draw from picc line. Once trached and pegged will work on placement. Reviewed meds but none that would cause persistent to worsening hypernatremia. Guarded to poor prognosis. 04/17/22: Continue PEEP at 10. Down to 45%. Do not see a blood gas from this mor roddy. Neurology saw this am. MRI negative. Family meeting today at 1330. Guarded to poor prognosis. 04/16/22: Continue PEEP at 10 until FiO2 is at 40-45% and sats >92%. Then can start to wean. Just on Fent now, continue bowel regimen. Tolerating tube feeds. Discussed with MANAGER R D on rounds, neurology was seeing but no further notes, no objection to consulting neuro who is here this week, whoever that is. Patient may need MRI as she has had two negative head CT's and still no real explanation for acute change in mental state. Plan to meet/talk with son tomorrow about next steps and goals of care. Prognosis remains guarded to now poor given no improvement in mental state. 04/15/22: Hold on any further fluids or lasix. If hypotensive, will add pressors. Continue PEEP at 10. Same acceptable parameters as below for sats and PaO2 as pH. Continue pain control and sedation. Added bowel regimen. Prognosis is still guarded to poor. 04/14/22: Hold on any further lasix. Please do not give any fluids, will see if she re equilbrates on her own. Increase PEEP to 8. Will get head CT today. Patient is now in full blown ARDS from COVID. Increased PEEP to 8 and dropped TV to 400. pH of >7.15 and PaO2 >55 are acceptable. Repeat gas at 1600 today. 04/13/22: Renal function continues to improve and urine output improving as well. Given CXR findings will give lasix 40mg IV x1 today. Repeat CXR tomorrow. Off insulin drip and tolerating feeds. Hold on CT head today but if no improvement or worsening clinical state tomorrow, will repeat. Spoke with family on phone yesterday. Guarded prognosis. 04/12/22: Improved mental state. Feed patient today and stop IVF's and attempt to get off of insulin drip. Dropped Peep to 6. Wean FiO2 for sats >88%. PaO2 of 55 and greater are acceptable. Normal EF on echo. EEG showed diffuse slowing but mental state has improved. Will up date family. 04/11/22: Continue supportive measures. Getting EEG right now. Continue to wean Pressors for MAPs >65. if able to get to just one pressor, will place NG vs OG and attempt trickle feeds. Follow up echo. Down to 45%, good PaO2. Continue to wean, however mental state would preclude extubation at this time. Await renal eval but would like to stop bicarb now that acidosis is better, however needs free water but this could be given do OG/NG if end up placing, otherwise would just do D5W. If able to place tube and feed, then can attempt to get off insulin drip. Plan to update family after echo and EEG read. 1. Neuro-concern for seizures. EEG pending. Hold on long acting anti-epileptic therapy. Neurology consulted and has seen. patient is not on any continuous sedation at present 2. CV-Cardiovascular collapse on pressors (3). Could benefit from echo. Attempt volume resuscitation but no improvement. Continue pressors and wean as tolerated for MAPs >65 3. Pulm-intubated, not on sedation. COVID positive but oxygenation is stable. Per documentation, mainly intubated for airway protection given altered level of mental status. Not a candidate for Remdesivir and may not be a candidate for actemra. Continue steroids and low Tidal volume strategy for lung protection with permissive hypercapnea and lower PaO2 (55-60) if needed. 4. Renal- worsening renal function and decrease in urine output. Renal following. May need HD but would likely not tolerate and CRRT or CVVH is not available here. Worsening lactic acidosis as well. 5. GI-hold on feeds given pressor requirement, prophylactic therapy 6. Endo-continue insulin drip for now Overall prognosis is guarded to poor. Will discuss with immediate family today. CCT 31 minutes Subjective Date of service: 04/22/22 Principal diagnosis: encephalopathy Interval history: No acute event. No change in mental state. Objective Vital Signs - 12hr 04/21/22 04/21/22 04/21/22 23:34 23:36 23:38 Temperature Pulse Rate 119 H 118 H Respiratory 22 20 Rate Blood Pressure 141/87 141/87 O2 Sat by Pulse 100 100 100 Oximetry 04/21/22 04/22/22 04/22/22 23:46 00:00 00:16 Temperature 97.4 F L Pulse Rate 119 H 118 H 115 H Respiratory 28 H 20 22 Rate Blood Pressure 144/87 144/87 139/85 O2 Sat by Pulse 99 100 99 Oximetry 04/22/22 04/22/22 04/22/22 00:30 00:46 01:00 Temperature Pulse Rate 120 H 118 H 118 H Respiratory 29 H 19 18 Rate Blood Pressure 139/85 146/80 146/80 O2 Sat by Pulse 100 100 100 Oximetry 04/22/22 04/22/22 04/22/22 01:16 01:30 01:46 Temperature Pulse Rate 121 H 120 H 119 H Respiratory 25 H 24 30 H Rate Blood Pressure 146/80 146/80 141/90 O2 Sat by Pulse 100 100 99 Oximetry 04/22/22 04/22/22 04/22/22 02:00 02:16 02:20 Temperature Pulse Rate 120 H 120 H 123 H Respiratory 25 H 24 Rate Blood Pressure 141/90 155/87 O2 Sat by Pulse 100 100 Oximetry 04/22/22 04/22/22 04/22/22 02:30 02:46 03:00 Temperature Pulse Rate 122 H 119 H 118 H Respiratory 21 31 H 26 H Rate Blood Pressure 155/87 139/88 139/88 O2 Sat by Pulse 100 100 100 Oximetry 04/22/22 04/22/22 04/22/22 03:13 03:14 03:16 Temperature 100.6 F H Pulse Rate 121 H 119 H Respiratory 24 Rate Blood Pressure 150/90 O2 Sat by Pulse 100 Oximetry 04/22/22 04/22/22 04/22/22 03:25 03:30 03:46 Temperature Pulse Rate 118 H 120 H 119 H Respiratory 31 H 24 Rate Blood Pressure 150/90 150/90 145/85 O2 Sat by Pulse 100 100 100 Oximetry 04/22/22 04/22/22 04/22/22 04:00 04:16 04:30 Temperature Pulse Rate 121 H 122 H 120 H Respiratory 25 H 21 20 Rate Blood Pressure 145/85 140/86 140/86 O2 Sat by Pulse 100 100 100 Oximetry 04/22/22 04/22/22 04/22/22 04:46 05:00 05:16 Temperature Pulse Rate 122 H 122 H 120 H Respiratory 28 H 25 H 24 Rate Blood Pressure 148/88 148/88 134/86 O2 Sat by Pulse 100 100 100 Oximetry 04/22/22 04/22/22 04/22/22 05:30 05:46 06:00 Temperature Pulse Rate 121 H 120 H 122 H Respiratory 19 24 31 H Rate Blood Pressure 134/86 145/91 145/91 O2 Sat by Pulse 100 100 100 Oximetry 04/22/22 04/22/22 04/22/22 06:16 06:30 06:46 Temperature Pulse Rate 120 H 121 H 118 H Respiratory 24 27 H 24 Rate Blood Pressure 131/86 131/86 142/85 O2 Sat by Pulse 100 100 100 Oximetry 04/22/22 04/22/22 04/22/22 07:00 07:16 07:30 Temperature Pulse Rate 117 H 118 H 118 H Respiratory 22 23 22 Rate Blood Pressure 142/85 143/83 143/83 O2 Sat by Pulse 100 100 100 Oximetry 04/22/22 04/22/22 04/22/22 07:46 08:00 08:16 Temperature 99.7 F H Pulse Rate 118 H 119 H 114 H Respiratory 26 H 19 18 Rate Blood Pressure 143/83 130/88 145/82 O2 Sat by Pulse 100 100 100 Oximetry 04/22/22 04/22/22 04/22/22 08:30 08:46 09:00 Temperature Pulse Rate 115 H 116 H 116 H Respiratory 23 24 22 Rate Blood Pressure 145/82 130/88 145/82 O2 Sat by Pulse 100 100 100 Oximetry 04/22/22 04/22/22 04/22/22 09:16 09:30 09:46 Temperature Pulse Rate 116 H 118 H 116 H Respiratory 21 19 18 Rate Blood Pressure 138/87 138/87 140/83 O2 Sat by Pulse 100 100 100 Oximetry 04/22/22 10:00 Temperature Pulse Rate 127 H Respiratory 16 Rate Blood Pressure 140/83 O2 Sat by Pulse 100 Oximetry Constitutional: other (on vent orally intubated eyes open) Eyes: non-icteric, other (scleroedema on rt) ENT: oropharynx moist Ascultation: Bilateral: diminished breath sounds Cardiovascular: regular rate and rhythm Gastrointestinal: normoactive bowel sounds Integumentary: normal Extremities: no cyanosis CBC and BMP: 04/22/22 02:30 04/22/22 02:30 ABG, PT/INR, D-dimer: ABG ABG pH 7.379 pH Units (7.350-7.450) 04/20/22 04:17 ABG pCO2 55.3 mm Hg 04/20/22 04:17 ABG pO2 86.0 mm Hg (80.0-90.0) 04/20/22 04:17 ABG O2 Saturation 96.8 % (95.0-99.0) 04/20/22 04:17 PT/INR, D-dimer PT 14.5 Sec. (12.2-14.9) 04/09/22 12:52 INR 1.02 (0.87-1.13) 04/09/22 12:52 D-Dimer 3804.33 ng/mlDDU (0-234) H 04/17/22 05:12 Abnormal lab findings: Abnormal Labs 04/09/22 04/09/22 04/09/22 11:59 12:52 12:52 WBC RBC Hgb Hct RDW 15.3 H Plt Count Lymph % (Auto) 8.4 L Lymph # (Auto) 0.7 L Seg Neutrophils % 84.6 H Seg Neuts % (Manual) Lymphocytes % (Manual) Seg Neutrophils # Seg Neutrophils # Man Lymphocytes # (Manual) D-Dimer ABG pH ABG pO2 ABG HCO3 ABG O2 Saturation ABG Base Excess ABG Hemoglobin VBG pH Oxyhemoglobin Sodium Potassium Chloride 112.7 H Carbon Dioxide 18 L BUN Creatinine 2.0 H Glucose 204 H POC Glucose 203 H Lactic Acid Calcium Phosphorus Magnesium Ferritin Total Bilirubin 1.30 H Direct Bilirubin AST 47 H ALT Ammonia Lactate Dehydrogenase C-Reactive Protein Total Protein Albumin Urine Creatinine Urine Total Protein Coronavirus (PCR) 04/09/22 04/09/22 04/09/22 12:52 12:52 13:02 WBC RBC Hgb Hct RDW Plt Count Lymph % (Auto) Lymph # (Auto) Seg Neutrophils % Seg Neuts % (Manual) Lymphocytes % (Manual) Seg Neutrophils # Seg Neutrophils # Man Lymphocytes # (Manual) D-Dimer ABG pH ABG pO2 ABG HCO3 ABG O2 Saturation ABG Base Excess ABG Hemoglobin VBG pH 7.303 L Oxyhemoglobin Sodium Potassium Chloride Carbon Dioxide BUN Creatinine Glucose POC Glucose Lactic Acid Calcium Phosphorus Magnesium Ferritin Total Bilirubin Direct Bilirubin AST ALT Ammonia 20.0 L Lactate Dehydrogenase C-Reactive Protein Total Protein Albumin Urine Creatinine Urine Total Protein Coronavirus (PCR) Positive A 04/09/22 04/09/22 04/09/22 15:49 22:15 22:58 WBC RBC Hgb Hct RDW Plt Count Lymph % (Auto) Lymph # (Auto) Seg Neutrophils % Seg Neuts % (Manual) Lymphocytes % (Manual) Seg Neutrophils # Seg Neutrophils # Man Lymphocytes # (Manual) D-Dimer ABG pH 7.097 L* ABG pO2 188.8 H ABG HCO3 7.4 L ABG O2 Saturation 99.1 H ABG Base Excess -20.7 L ABG Hemoglobin VBG pH Oxyhemoglobin Sodium Potassium Chloride 108.8 H Carbon Dioxide 10 L D BUN 20 H Creatinine 2.6 H Glucose 465 H POC Glucose Lactic Acid 2.70 H* Calcium 7.4 L Phosphorus Magnesium Ferritin Total Bilirubin Direct Bilirubin AST ALT Ammonia Lactate Dehydrogenase C-Reactive Protein Total Protein Albumin Urine Creatinine Urine Total Protein Coronavirus (PCR) 04/09/22 04/09/22 04/10/22 23:19 Unknown 00:03 WBC RBC Hgb Hct RDW Plt Count Lymph % (Auto) Lymph # (Auto) Seg Neutrophils % Seg Neuts % (Manual) Lymphocytes % (Manual) Seg Neutrophils # Seg Neutrophils # Man Lymphocytes # (Manual) D-Dimer ABG pH ABG pO2 ABG HCO3 ABG O2 Saturation ABG Base Excess ABG Hemoglobin VBG pH Oxyhemoglobin Sodium Potassium Chloride Carbon Dioxide BUN Creatinine Glucose POC Glucose 356 H Lactic Acid 7.50 H* 6.10 H* Calcium Phosphorus Magnesium Ferritin Total Bilirubin Direct Bilirubin AST ALT Ammonia Lactate Dehydrogenase C-Reactive Protein Total Protein Albumin Urine Creatinine Urine Total Protein Coronavirus (PCR) 05/18/22 05/18/22 05/18/22 02:16 03:03 04:00 WBC RBC Hgb Hct RDW Plt Count Lymph % (Auto) Lymph # (Auto) Seg Neutrophils % Seg Neuts % (Manual) Lymphocytes % (Manual) Seg Neutrophils # Seg Neutrophils # Man Lymphocytes # (Manual) D-Dimer ABG pH ABG pO2 ABG HCO3 ABG O2 Saturation ABG Base Excess ABG Hemoglobin VBG pH Oxyhemoglobin Sodium Potassium Chloride Carbon Dioxide BUN Creatinine Glucose POC Glucose 317 H 325 H 308 H Lactic Acid Calcium Phosphorus Magnesium Ferritin Total Bilirubin Direct Bilirubin AST ALT Ammonia Lactate Dehydrogenase C-Reactive Protein Total Protein Albumin Urine Creatinine Urine Total Protein Coronavirus (PCR) 04/10/22 04/10/22 04/10/22 04:24 04:24 04:24 WBC 16.4 H RBC Hgb Hct RDW 16.2 H Plt Count Lymph % (Auto) Lymph # (Auto) Seg Neutrophils % Seg Neuts % (Manual) 94.0 H Lymphocytes % (Manual) 3.0 L Seg Neutrophils # Seg Neutrophils # Man 15.4 H Lymphocytes # (Manual) 0.5 L D-Dimer ABG pH ABG pO2 ABG HCO3 ABG O2 Saturation ABG Base Excess ABG Hemoglobin VBG pH Oxyhemoglobin Sodium Potassium 2.9 L* D Chloride 116.1 H Carbon Dioxide 11 L BUN 19 H Creatinine 2.5 H Glucose 376 H POC Glucose Lactic Acid Calcium 6.5 L Phosphorus 1.40 L Magnesium 1.60 L Ferritin Total Bilirubin Direct Bilirubin AST 107 H ALT 64 H Ammonia Lactate Dehydrogenase C-Reactive Protein Total Protein 5.5 L Albumin 2.8 L Urine Creatinine Urine Total Protein Coronavirus (PCR) 04/10/22 04/10/22 04/10/22 04:25 05:17 06:00 WBC RBC Hgb Hct RDW Plt Count Lymph % (Auto) Lymph # (Auto) Seg Neutrophils % Seg Neuts % (Manual) Lymphocytes % (Manual) Seg Neutrophils # Seg Neutrophils # Man Lymphocytes # (Manual) D-Dimer ABG pH 7.095 L* ABG pO2 112.3 H ABG HCO3 8.7 L ABG O2 Saturation ABG Base Excess -19.7 L ABG Hemoglobin VBG pH Oxyhemoglobin Sodium Potassium Chloride Carbon Dioxide BUN Creatinine Glucose POC Glucose 343 H 278 H Lactic Acid Calcium Phosphorus Magnesium Ferritin Total Bilirubin Direct Bilirubin AST ALT Ammonia Lactate Dehydrogenase C-Reactive Protein Total Protein Albumin Urine Creatinine Urine Total Protein Coronavirus (PCR) 04/10/22 04/10/22 04/10/22 06:53 07:54 08:58 WBC RBC Hgb Hct RDW Plt Count Lymph % (Auto) Lymph # (Auto) Seg Neutrophils % Seg Neuts % (Manual) Lymphocytes % (Manual) Seg Neutrophils # Seg Neutrophils # Man Lymphocytes # (Manual) D-Dimer ABG pH ABG pO2 ABG HCO3 ABG O2 Saturation ABG Base Excess ABG Hemoglobin VBG pH Oxyhemoglobin Sodium Potassium Chloride Carbon Dioxide BUN Creatinine Glucose POC Glucose 262 H 245 H 215 H Lactic Acid Calcium Phosphorus Magnesium Ferritin Total Bilirubin Direct Bilirubin AST ALT Ammonia Lactate Dehydrogenase C-Reactive Protein Total Protein Albumin Urine Creatinine Urine Total Protein Coronavirus (PCR) 04/10/22 04/10/22 04/10/22 10:12 10:51 11:47 WBC RBC Hgb Hct RDW Plt Count Lymph % (Auto) Lymph # (Auto) Seg Neutrophils % Seg Neuts % (Manual) Lymphocytes % (Manual) Seg Neutrophils # Seg Neutrophils # Man Lymphocytes # (Manual) D-Dimer ABG pH ABG pO2 ABG HCO3 ABG O2 Saturation ABG Base Excess ABG Hemoglobin VBG pH Oxyhemoglobin Sodium 148 H Potassium 3.4 L Chloride 116.7 H Carbon Dioxide 15 L BUN 22 H Creatinine 2.7 H Glucose 190 H POC Glucose 206 H 176 H Lactic Acid Calcium 6.9 L Phosphorus Magnesium Ferritin Total Bilirubin Direct Bilirubin AST ALT Ammonia Lactate Dehydrogenase C-Reactive Protein Total Protein Albumin Urine Creatinine Urine Total Protein Coronavirus (PCR) 04/10/22 04/10/22 04/10/22 11:47 11:47 12:02 WBC RBC Hgb Hct RDW Plt Count Lymph % (Auto) Lymph # (Auto) Seg Neutrophils % Seg Neuts % (Manual) Lymphocytes % (Manual) Seg Neutrophils # Seg Neutrophils # Man Lymphocytes # (Manual) D-Dimer ABG pH ABG pO2 ABG HCO3 ABG O2 Saturation ABG Base Excess ABG Hemoglobin VBG pH Oxyhemoglobin Sodium Potassium Chloride Carbon Dioxide BUN Creatinine Glucose POC Glucose 178 H Lactic Acid Calcium Phosphorus Magnesium Ferritin 1218.0 H Total Bilirubin Direct Bilirubin AST ALT Ammonia Lactate Dehydrogenase 482 H C-Reactive Protein 11.30 H Total Protein Albumin Urine Creatinine Urine Total Protein Coronavirus (PCR) 04/10/22 04/10/22 04/10/22 13:13 13:58 14:50 WBC RBC Hgb Hct RDW Plt Count Lymph % (Auto) Lymph # (Auto) Seg Neutrophils % Seg Neuts % (Manual) Lymphocytes % (Manual) Seg Neutrophils # Seg Neutrophils # Man Lymphocytes # (Manual) D-Dimer ABG pH ABG pO2 ABG HCO3 ABG O2 Saturation ABG Base Excess ABG Hemoglobin VBG pH Oxyhemoglobin Sodium Potassium Chloride Carbon Dioxide BUN Creatinine Glucose POC Glucose 160 H 150 H Lactic Acid Calcium Phosphorus Magnesium Ferritin Total Bilirubin Direct Bilirubin AST ALT Ammonia Lactate Dehydrogenase C-Reactive Protein Total Protein Albumin Urine Creatinine 224.2 H Urine Total Protein 172 H Coronavirus (PCR) 04/10/22 04/10/22 04/10/22 15:24 16:38 16:56 WBC RBC Hgb Hct RDW Plt Count Lymph % (Auto) Lymph # (Auto) Seg Neutrophils % Seg Neuts % (Manual) Lymphocytes % (Manual) Seg Neutrophils # Seg Neutrophils # Man Lymphocytes # (Manual) D-Dimer ABG pH ABG pO2 ABG HCO3 ABG O2 Saturation ABG Base Excess ABG Hemoglobin VBG pH Oxyhemoglobin Sodium Potassium Chloride Carbon Dioxide BUN Creatinine Glucose POC Glucose 140 H 154 H 149 H Lactic Acid Calcium Phosphorus Magnesium Ferritin Total Bilirubin Direct Bilirubin AST ALT Ammonia Lactate Dehydrogenase C-Reactive Protein Total Protein Albumin Urine Creatinine Urine Total Protein Coronavirus (PCR) 04/10/22 04/10/22 04/10/22 18:21 19:21 20:02 WBC RBC Hgb Hct RDW Plt Count Lymph % (Auto) Lymph # (Auto) Seg Neutrophils % Seg Neuts % (Manual) Lymphocytes % (Manual) Seg Neutrophils # Seg Neutrophils # Man Lymphocytes # (Manual) D-Dimer ABG pH ABG pO2 ABG HCO3 ABG O2 Saturation ABG Base Excess ABG Hemoglobin VBG pH Oxyhemoglobin Sodium Potassium Chloride Carbon Dioxide BUN Creatinine Glucose POC Glucose 141 H 126 H 139 H Lactic Acid Calcium Phosphorus Magnesium Ferritin Total Bilirubin Direct Bilirubin AST ALT Ammonia Lactate Dehydrogenase C-Reactive Protein Total Protein Albumin Urine Creatinine Urine Total Protein Coronavirus (PCR) 04/10/22 04/10/22 04/10/22 21:04 21:58 22:20 WBC RBC Hgb Hct RDW Plt Count Lymph % (Auto) Lymph # (Auto) Seg Neutrophils % Seg Neuts % (Manual) Lymphocytes % (Manual) Seg Neutrophils # Seg Neutrophils # Man Lymphocytes # (Manual) D-Dimer ABG pH ABG pO2 ABG HCO3 ABG O2 Saturation ABG Base Excess ABG Hemoglobin VBG pH Oxyhemoglobin Sodium Potassium Chloride 114.5 H Carbon Dioxide 17 L BUN 24 H Creatinine 2.5 H Glucose 165 H POC Glucose 144 H 161 H Lactic Acid Calcium 6.5 L Phosphorus Magnesium Ferritin Total Bilirubin Direct Bilirubin AST ALT Ammonia Lactate Dehydrogenase C-Reactive Protein Total Protein Albumin Urine Creatinine Urine Total Protein Coronavirus (PCR) 04/10/22 04/11/22 04/11/22 23:02 00:08 01:05 WBC RBC Hgb Hct RDW Plt Count Lymph % (Auto) Lymph # (Auto) Seg Neutrophils % Seg Neuts % (Manual) Lymphocytes % (Manual) Seg Neutrophils # Seg Neutrophils # Man Lymphocytes # (Manual) D-Dimer ABG pH ABG pO2 ABG HCO3 ABG O2 Saturation ABG Base Excess ABG Hemoglobin VBG pH Oxyhemoglobin Sodium Potassium Chloride Carbon Dioxide BUN Creatinine Glucose POC Glucose 160 H 148 H 156 H Lactic Acid Calcium Phosphorus Magnesium Ferritin Total Bilirubin Direct Bilirubin AST ALT Ammonia Lactate Dehydrogenase C-Reactive Protein Total Protein Albumin Urine Creatinine Urine Total Protein Coronavirus (PCR) 04/11/22 04/11/22 04/11/22 01:30 02:05 03:04 WBC RBC Hgb Hct RDW Plt Count Lymph % (Auto) Lymph # (Auto) Seg Neutrophils % Seg Neuts % (Manual) Lymphocytes % (Manual) Seg Neutrophils # Seg Neutrophils # Man Lymphocytes # (Manual) D-Dimer ABG pH ABG pO2 75.1 L ABG HCO3 17.2 L ABG O2 Saturation ABG Base Excess -5.8 L ABG Hemoglobin 11.5 L VBG pH Oxyhemoglobin Sodium Potassium Chloride Carbon Dioxide BUN Creatinine Glucose POC Glucose 150 H 168 H Lactic Acid Calcium Phosphorus Magnesium Ferritin Total Bilirubin Direct Bilirubin AST ALT Ammonia Lactate Dehydrogenase C-Reactive Protein Total Protein Albumin Urine Creatinine Urine Total Protein Coronavirus (PCR) 04/11/22 04/11/22 04/11/22 03:58 03:58 04:05 WBC 12.2 H RBC Hgb Hct RDW 15.7 H Plt Count Lymph % (Auto) Lymph # (Auto) Seg Neutrophils % Seg Neuts % (Manual) Lymphocytes % (Manual) Seg Neutrophils # Seg Neutrophils # Man Lymphocytes # (Manual) D-Dimer ABG pH ABG pO2 ABG HCO3 ABG O2 Saturation ABG Base Excess ABG Hemoglobin VBG pH Oxyhemoglobin Sodium 147 H Potassium Chloride 114.2 H Carbon Dioxide 19 L BUN 26 H Creatinine 2.5 H Glucose 154 H POC Glucose 151 H Lactic Acid Calcium 6.8 L Phosphorus Magnesium Ferritin Total Bilirubin Direct Bilirubin AST 106 H ALT 60 H Ammonia Lactate Dehydrogenase C-Reactive Protein Total Protein 5.6 L Albumin 2.7 L Urine Creatinine Urine Total Protein Coronavirus (PCR) 04/11/22 04/11/22 04/11/22 05:14 06:19 08:23 WBC RBC Hgb Hct RDW Plt Count Lymph % (Auto) Lymph # (Auto) Seg Neutrophils % Seg Neuts % (Manual) Lymphocytes % (Manual) Seg Neutrophils # Seg Neutrophils # Man Lymphocytes # (Manual) D-Dimer ABG pH ABG pO2 ABG HCO3 ABG O2 Saturation ABG Base Excess ABG Hemoglobin VBG pH Oxyhemoglobin Sodium Potassium Chloride Carbon Dioxide BUN Creatinine Glucose POC Glucose 134 H 144 H 143 H Lactic Acid Calcium Phosphorus Magnesium Ferritin Total Bilirubin Direct Bilirubin AST ALT Ammonia Lactate Dehydrogenase C-Reactive Protein Total Protein Albumin Urine Creatinine Urine Total Protein Coronavirus (PCR) 04/11/22 04/11/22 04/11/22 09:28 10:06 11:23 WBC RBC Hgb Hct RDW Plt Count Lymph % (Auto) Lymph # (Auto) Seg Neutrophils % Seg Neuts % (Manual) Lymphocytes % (Manual) Seg Neutrophils # Seg Neutrophils # Man Lymphocytes # (Manual) D-Dimer ABG pH ABG pO2 ABG HCO3 ABG O2 Saturation ABG Base Excess ABG Hemoglobin VBG pH Oxyhemoglobin Sodium Potassium Chloride Carbon Dioxide BUN Creatinine Glucose POC Glucose 138 H Lactic Acid Calcium Phosphorus Magnesium Ferritin Total Bilirubin Direct Bilirubin AST ALT Ammonia Lactate Dehydrogenase C-Reactive Protein Total Protein Albumin Urine Creatinine 161.8 H 160.5 H Urine Total Protein Coronavirus (PCR) 04/11/22 04/11/22 04/12/22 15:59 23:58 00:01 WBC 16.2 H RBC Hgb Hct RDW 15.8 H Plt Count Lymph % (Auto) 5.7 L Lymph # (Auto) 0.9 L Seg Neutrophils % 89.6 H Seg Neuts % (Manual) Lymphocytes % (Manual) Seg Neutrophils # 14.6 H Seg Neutrophils # Man Lymphocytes # (Manual) D-Dimer ABG pH ABG pO2 ABG HCO3 ABG O2 Saturation ABG Base Excess ABG Hemoglobin VBG pH Oxyhemoglobin Sodium Potassium Chloride Carbon Dioxide BUN Creatinine Glucose POC Glucose 166 H 150 H Lactic Acid Calcium Phosphorus Magnesium Ferritin Total Bilirubin Direct Bilirubin AST ALT Ammonia Lactate Dehydrogenase C-Reactive Protein Total Protein Albumin Urine Creatinine Urine Total Protein Coronavirus (PCR) 04/12/22 04/12/22 04/12/22 03:20 04:00 04:00 WBC RBC Hgb Hct RDW Plt Count Lymph % (Auto) Lymph # (Auto) Seg Neutrophils % Seg Neuts % (Manual) Lymphocytes % (Manual) Seg Neutrophils # Seg Neutrophils # Man Lymphocytes # (Manual) D-Dimer 1874.86 H ABG pH 7.513 H ABG pO2 61.7 L ABG HCO3 ABG O2 Saturation 94.2 L ABG Base Excess ABG Hemoglobin 11.5 L VBG pH Oxyhemoglobin 92.6 L Sodium Potassium Chloride Carbon Dioxide BUN Creatinine Glucose POC Glucose Lactic Acid Calcium Phosphorus Magnesium Ferritin 890.0 H Total Bilirubin Direct Bilirubin AST ALT Ammonia Lactate Dehydrogenase C-Reactive Protein Total Protein Albumin Urine Creatinine Urine Total Protein Coronavirus (PCR) 04/12/22 04/12/22 04/12/22 04:00 04:20 04:59 WBC RBC Hgb Hct RDW Plt Count Lymph % (Auto) Lymph # (Auto) Seg Neutrophils % Seg Neuts % (Manual) Lymphocytes % (Manual) Seg Neutrophils # Seg Neutrophils # Man Lymphocytes # (Manual) D-Dimer ABG pH ABG pO2 ABG HCO3 ABG O2 Saturation ABG Base Excess ABG Hemoglobin VBG pH Oxyhemoglobin Sodium 146 H Potassium Chloride 108.0 H Carbon Dioxide BUN 38 H Creatinine 2.3 H Glucose 173 H POC Glucose 146 H Lactic Acid Calcium 6.7 L Phosphorus Magnesium Ferritin Total Bilirubin Direct Bilirubin AST ALT Ammonia Lactate Dehydrogenase 763 H C-Reactive Protein 14.10 H Total Protein Albumin Urine Creatinine Urine Total Protein Coronavirus (PCR) 04/12/22 04/12/22 04/12/22 06:05 10:15 11:52 WBC RBC Hgb Hct RDW Plt Count Lymph % (Auto) Lymph # (Auto) Seg Neutrophils % Seg Neuts % (Manual) Lymphocytes % (Manual) Seg Neutrophils # Seg Neutrophils # Man Lymphocytes # (Manual) D-Dimer ABG pH ABG pO2 ABG HCO3 ABG O2 Saturation ABG Base Excess ABG Hemoglobin VBG pH Oxyhemoglobin Sodium Potassium Chloride Carbon Dioxide BUN Creatinine Glucose POC Glucose 190 H 122 H 125 H Lactic Acid Calcium Phosphorus Magnesium Ferritin Total Bilirubin Direct Bilirubin AST ALT Ammonia Lactate Dehydrogenase C-Reactive Protein Total Protein Albumin Urine Creatinine Urine Total Protein Coronavirus (PCR) 04/12/22 04/13/22 04/13/22 13:18 00:14 03:41 WBC RBC Hgb Hct RDW Plt Count Lymph % (Auto) Lymph # (Auto) Seg Neutrophils % Seg Neuts % (Manual) Lymphocytes % (Manual) Seg Neutrophils # Seg Neutrophils # Man Lymphocytes # (Manual) D-Dimer ABG pH 7.487 H ABG pO2 62.1 L ABG HCO3 ABG O2 Saturation 93.2 L ABG Base Excess ABG Hemoglobin 11.9 L VBG pH Oxyhemoglobin 91.5 L Sodium Potassium Chloride Carbon Dioxide BUN 38 H Creatinine 2.1 H Glucose 144 H POC Glucose 208 H Lactic Acid Calcium 7.1 L Phosphorus Magnesium Ferritin Total Bilirubin Direct Bilirubin AST ALT Ammonia Lactate Dehydrogenase C-Reactive Protein Total Protein Albumin Urine Creatinine Urine Total Protein Coronavirus (PCR) 04/13/22 04/13/22 04/14/22 04:31 04:31 03:54 WBC 13.9 H RBC Hgb Hct RDW 15.7 H Plt Count Lymph % (Auto) Lymph # (Auto) Seg Neutrophils % Seg Neuts % (Manual) Lymphocytes % (Manual) Seg Neutrophils # Seg Neutrophils # Man Lymphocytes # (Manual) D-Dimer ABG pH 7.487 H ABG pO2 57.8 L ABG HCO3 ABG O2 Saturation 93.9 L ABG Base Excess ABG Hemoglobin 10.0 L VBG pH Oxyhemoglobin 92.3 L Sodium Potassium Chloride Carbon Dioxide BUN 42 H Creatinine 1.9 H Glucose 204 H POC Glucose Lactic Acid Calcium 7.4 L Phosphorus Magnesium Ferritin Total Bilirubin Direct Bilirubin AST ALT Ammonia Lactate Dehydrogenase C-Reactive Protein Total Protein Albumin Urine Creatinine Urine Total Protein Coronavirus (PCR) 04/14/22 04/14/22 04/14/22 07:28 07:28 07:28 WBC RBC Hgb Hct RDW Plt Count Lymph % (Auto) Lymph # (Auto) Seg Neutrophils % Seg Neuts % (Manual) Lymphocytes % (Manual) Seg Neutrophils # Seg Neutrophils # Man Lymphocytes # (Manual) D-Dimer 5586.76 H ABG pH ABG pO2 ABG HCO3 ABG O2 Saturation ABG Base Excess ABG Hemoglobin VBG pH Oxyhemoglobin Sodium Potassium Chloride Carbon Dioxide BUN Creatinine Glucose POC Glucose Lactic Acid Calcium Phosphorus Magnesium Ferritin 454.7 H Total Bilirubin Direct Bilirubin AST ALT Ammonia Lactate Dehydrogenase 1345 H C-Reactive Protein 4.80 H Total Protein Albumin Urine Creatinine Urine Total Protein Coronavirus (PCR) 04/14/22 04/14/22 04/14/22 07:28 07:28 09:26 WBC 18.6 H RBC 3.59 L Hgb Hct RDW 15.6 H Plt Count Lymph % (Auto) Lymph # (Auto) Seg Neutrophils % Seg Neuts % (Manual) Lymphocytes % (Manual) Seg Neutrophils # Seg Neutrophils # Man Lymphocytes # (Manual) D-Dimer ABG pH ABG pO2 ABG HCO3 ABG O2 Saturation ABG Base Excess ABG Hemoglobin VBG pH Oxyhemoglobin Sodium 149 H Potassium Chloride 110.3 H Carbon Dioxide BUN 57 H Creatinine 2.3 H Glucose 205 H POC Glucose Lactic Acid Calcium Phosphorus Magnesium 2.90 H Ferritin Total Bilirubin Direct Bilirubin AST ALT Ammonia Lactate Dehydrogenase C-Reactive Protein Total Protein Albumin Urine Creatinine Urine Total Protein Coronavirus (PCR) 04/14/22 04/14/22 04/14/22 11:52 15:41 17:18 WBC RBC Hgb Hct RDW Plt Count Lymph % (Auto) Lymph # (Auto) Seg Neutrophils % Seg Neuts % (Manual) Lymphocytes % (Manual) Seg Neutrophils # Seg Neutrophils # Man Lymphocytes # (Manual) D-Dimer ABG pH 7.506 H ABG pO2 51.0 L ABG HCO3 ABG O2 Saturation 87.3 L ABG Base Excess ABG Hemoglobin 10.6 L VBG pH Oxyhemoglobin 85.4 L Sodium Potassium Chloride Carbon Dioxide BUN Creatinine Glucose POC Glucose 173 H 187 H Lactic Acid Calcium Phosphorus Magnesium Ferritin Total Bilirubin Direct Bilirubin AST ALT Ammonia Lactate Dehydrogenase C-Reactive Protein Total Protein Albumin Urine Creatinine Urine Total Protein Coronavirus (PCR) 04/15/22 04/15/22 04/15/22 00:03 03:43 05:47 WBC RBC Hgb Hct RDW Plt Count Lymph % (Auto) Lymph # (Auto) Seg Neutrophils % Seg Neuts % (Manual) Lymphocytes % (Manual) Seg Neutrophils # Seg Neutrophils # Man Lymphocytes # (Manual) D-Dimer ABG pH 7.477 H ABG pO2 59.1 L ABG HCO3 ABG O2 Saturation 90.5 L ABG Base Excess ABG Hemoglobin 9.5 L VBG pH Oxyhemoglobin 88.7 L Sodium Potassium Chloride Carbon Dioxide BUN Creatinine Glucose POC Glucose 246 H 217 H Lactic Acid Calcium Phosphorus Magnesium Ferritin Total Bilirubin Direct Bilirubin AST ALT Ammonia Lactate Dehydrogenase C-Reactive Protein Total Protein Albumin Urine Creatinine Urine Total Protein Coronavirus (PCR) 04/15/22 04/15/22 04/15/22 09:40 10:00 12:00 WBC 19.3 H RBC 3.18 L Hgb 9.3 L Hct 27.7 L RDW 15.8 H Plt Count Lymph % (Auto) Lymph # (Auto) Seg Neutrophils % Seg Neuts % (Manual) Lymphocytes % (Manual) Seg Neutrophils # Seg Neutrophils # Man Lymphocytes # (Manual) D-Dimer ABG pH ABG pO2 ABG HCO3 ABG O2 Saturation ABG Base Excess ABG Hemoglobin VBG pH Oxyhemoglobin Sodium 146 H Potassium Chloride 107.9 H Carbon Dioxide BUN 76 H Creatinine 1.9 H Glucose 214 H POC Glucose Lactic Acid 2.10 H* Calcium 7.7 L Phosphorus Magnesium Ferritin Total Bilirubin Direct Bilirubin AST ALT Ammonia Lactate Dehydrogenase C-Reactive Protein Total Protein Albumin Urine Creatinine Urine Total Protein Coronavirus (PCR) 04/15/22 04/15/22 04/15/22 12:21 17:51 21:39 WBC RBC Hgb Hct RDW Plt Count Lymph % (Auto) Lymph # (Auto) Seg Neutrophils % Seg Neuts % (Manual) Lymphocytes % (Manual) Seg Neutrophils # Seg Neutrophils # Man Lymphocytes # (Manual) D-Dimer ABG pH ABG pO2 ABG HCO3 ABG O2 Saturation ABG Base Excess ABG Hemoglobin VBG pH Oxyhemoglobin Sodium Potassium Chloride Carbon Dioxide BUN Creatinine Glucose POC Glucose 236 H 255 H 223 H Lactic Acid Calcium Phosphorus Magnesium Ferritin Total Bilirubin Direct Bilirubin AST ALT Ammonia Lactate Dehydrogenase C-Reactive Protein Total Protein Albumin Urine Creatinine Urine Total Protein Coronavirus (PCR) 04/16/22 04/16/22 04/16/22 00:17 02:35 04:00 WBC RBC Hgb Hct RDW Plt Count Lymph % (Auto) Lymph # (Auto) Seg Neutrophils % Seg Neuts % (Manual) Lymphocytes % (Manual) Seg Neutrophils # Seg Neutrophils # Man Lymphocytes # (Manual) D-Dimer ABG pH 7.318 L ABG pO2 71.1 L ABG HCO3 27.7 H ABG O2 Saturation 94.8 L ABG Base Excess ABG Hemoglobin 10.3 L VBG pH Oxyhemoglobin 92.9 L Sodium Potassium Chloride Carbon Dioxide BUN Creatinine Glucose POC Glucose 201 H Lactic Acid Calcium Phosphorus Magnesium Ferritin 446.2 H Total Bilirubin Direct Bilirubin AST ALT Ammonia Lactate Dehydrogenase C-Reactive Protein Total Protein Albumin Urine Creatinine Urine Total Protein Coronavirus (PCR) 04/16/22 04/16/22 04/16/22 04:00 06:00 Unknown WBC RBC Hgb Hct RDW Plt Count Lymph % (Auto) Lymph # (Auto) Seg Neutrophils % Seg Neuts % (Manual) Lymphocytes % (Manual) Seg Neutrophils # Seg Neutrophils # Man Lymphocytes # (Manual) D-Dimer 3886.80 H ABG pH ABG pO2 ABG HCO3 ABG O2 Saturation ABG Base Excess ABG Hemoglobin VBG pH Oxyhemoglobin Sodium 148 H Potassium Chloride 109.9 H Carbon Dioxide BUN 84 H Creatinine 1.7 H Glucose 276 H POC Glucose Lactic Acid Calcium Phosphorus Magnesium Ferritin Total Bilirubin Direct Bilirubin 0.5 H AST 69 H ALT 120 H Ammonia Lactate Dehydrogenase 1467 H C-Reactive Protein 1.90 H Total Protein 5.9 L Albumin 3.5 L Urine Creatinine Urine Total Protein Coronavirus (PCR) 04/16/22 04/17/22 04/17/22 Unknown 05:12 05:12 WBC 25.2 H 22.2 H RBC 3.50 L Hgb Hct RDW 15.8 H 15.8 H Plt Count Lymph % (Auto) Lymph # (Auto) Seg Neutrophils % Seg Neuts % (Manual) Lymphocytes % (Manual) Seg Neutrophils # Seg Neutrophils # Man Lymphocytes # (Manual) D-Dimer 3804.33 H ABG pH ABG pO2 ABG HCO3 ABG O2 Saturation ABG Base Excess ABG Hemoglobin VBG pH Oxyhemoglobin Sodium Potassium Chloride Carbon Dioxide BUN Creatinine Glucose POC Glucose Lactic Acid Calcium Phosphorus Magnesium Ferritin Total Bilirubin Direct Bilirubin AST ALT Ammonia Lactate Dehydrogenase C-Reactive Protein Total Protein Albumin Urine Creatinine Urine Total Protein Coronavirus (PCR) 04/17/22 04/17/22 04/17/22 05:12 17:27 20:04 WBC RBC Hgb Hct RDW Plt Count Lymph % (Auto) Lymph # (Auto) Seg Neutrophils % Seg Neuts % (Manual) Lymphocytes % (Manual) Seg Neutrophils # Seg Neutrophils # Man Lymphocytes # (Manual) D-Dimer ABG pH ABG pO2 ABG HCO3 ABG O2 Saturation ABG Base Excess ABG Hemoglobin VBG pH Oxyhemoglobin Sodium 149 H Potassium 5.3 H Chloride 109.4 H Carbon Dioxide BUN 80 H Creatinine 1.5 H Glucose 320 H POC Glucose 308 H 301 H Lactic Acid Calcium Phosphorus Magnesium Ferritin Total Bilirubin Direct Bilirubin AST 171 H ALT 231 H Ammonia Lactate Dehydrogenase C-Reactive Protein Total Protein 5.4 L Albumin 3.7 L Urine Creatinine Urine Total Protein Coronavirus (PCR) 04/18/22 04/18/22 04/18/22 01:55 05:41 05:41 WBC RBC Hgb Hct RDW Plt Count Lymph % (Auto) Lymph # (Auto) Seg Neutrophils % Seg Neuts % (Manual) Lymphocytes % (Manual) Seg Neutrophils # Seg Neutrophils # Man Lymphocytes # (Manual) D-Dimer ABG pH ABG pO2 ABG HCO3 ABG O2 Saturation ABG Base Excess ABG Hemoglobin VBG pH Oxyhemoglobin Sodium 156 H Potassium Chloride 117.8 H Carbon Dioxide BUN 69 H Creatinine 1.3 H Glucose 231 H POC Glucose 301 H Lactic Acid Calcium 8.3 L Phosphorus Magnesium Ferritin 570.8 H Total Bilirubin Direct Bilirubin AST ALT Ammonia Lactate Dehydrogenase 1473 H C-Reactive Protein Total Protein Albumin Urine Creatinine Urine Total Protein Coronavirus (PCR) 04/18/22 04/18/22 04/18/22 05:41 06:09 10:35 WBC 19.6 H RBC 3.38 L Hgb 9.7 L Hct 29.5 L RDW 15.9 H Plt Count Lymph % (Auto) Lymph # (Auto) Seg Neutrophils % Seg Neuts % (Manual) Lymphocytes % (Manual) Seg Neutrophils # Seg Neutrophils # Man Lymphocytes # (Manual) D-Dimer ABG pH ABG pO2 ABG HCO3 ABG O2 Saturation ABG Base Excess ABG Hemoglobin VBG pH Oxyhemoglobin Sodium 156 H Potassium Chloride 118.2 H Carbon Dioxide 32 H BUN 66 H Creatinine 1.3 H Glucose 179 H POC Glucose 210 H Lactic Acid Calcium 8.3 L Phosphorus Magnesium Ferritin Total Bilirubin Direct Bilirubin AST 91 H ALT 234 H Ammonia Lactate Dehydrogenase C-Reactive Protein Total Protein 5.3 L Albumin 3.4 L Urine Creatinine Urine Total Protein Coronavirus (PCR) 04/18/22 04/18/22 04/19/22 11:57 23:36 03:21 WBC RBC Hgb Hct RDW Plt Count Lymph % (Auto) Lymph # (Auto) Seg Neutrophils % Seg Neuts % (Manual) Lymphocytes % (Manual) Seg Neutrophils # Seg Neutrophils # Man Lymphocytes # (Manual) D-Dimer ABG pH ABG pO2 ABG HCO3 ABG O2 Saturation ABG Base Excess ABG Hemoglobin VBG pH Oxyhemoglobin Sodium Potassium Chloride Carbon Dioxide BUN Creatinine Glucose POC Glucose 161 H 209 H 184 H Lactic Acid Calcium Phosphorus Magnesium Ferritin Total Bilirubin Direct Bilirubin AST ALT Ammonia Lactate Dehydrogenase C-Reactive Protein Total Protein Albumin Urine Creatinine Urine Total Protein Coronavirus (PCR) 04/19/22 04/19/22 04/19/22 04:00 04:00 05:58 WBC 18.2 H RBC Hgb Hct RDW 15.7 H Plt Count Lymph % (Auto) Lymph # (Auto) Seg Neutrophils % Seg Neuts % (Manual) Lymphocytes % (Manual) Seg Neutrophils # Seg Neutrophils # Man Lymphocytes # (Manual) D-Dimer ABG pH ABG pO2 ABG HCO3 ABG O2 Saturation ABG Base Excess ABG Hemoglobin VBG pH Oxyhemoglobin Sodium 160 H Potassium Chloride 119.7 H Carbon Dioxide 31 H BUN 60 H Creatinine 1.3 H Glucose 213 H POC Glucose 207 H Lactic Acid Calcium Phosphorus Magnesium Ferritin Total Bilirubin Direct Bilirubin AST 77 H ALT 208 H Ammonia Lactate Dehydrogenase C-Reactive Protein Total Protein 5.8 L Albumin 3.5 L Urine Creatinine Urine Total Protein Coronavirus (PCR) 04/19/22 04/19/22 04/19/22 11:25 17:35 21:56 WBC RBC Hgb Hct RDW Plt Count Lymph % (Auto) Lymph # (Auto) Seg Neutrophils % Seg Neuts % (Manual) Lymphocytes % (Manual) Seg Neutrophils # Seg Neutrophils # Man Lymphocytes # (Manual) D-Dimer ABG pH ABG pO2 ABG HCO3 ABG O2 Saturation ABG Base Excess ABG Hemoglobin VBG pH Oxyhemoglobin Sodium Potassium Chloride Carbon Dioxide BUN Creatinine Glucose POC Glucose 137 H 168 H 188 H Lactic Acid Calcium Phosphorus Magnesium Ferritin Total Bilirubin Direct Bilirubin AST ALT Ammonia Lactate Dehydrogenase C-Reactive Protein Total Protein Albumin Urine Creatinine Urine Total Protein Coronavirus (PCR) 04/19/22 04/20/22 04/20/22 22:32 01:10 04:17 WBC RBC Hgb Hct RDW Plt Count Lymph % (Auto) Lymph # (Auto) Seg Neutrophils % Seg Neuts % (Manual) Lymphocytes % (Manual) Seg Neutrophils # Seg Neutrophils # Man Lymphocytes # (Manual) D-Dimer ABG pH ABG pO2 ABG HCO3 31.9 H ABG O2 Saturation ABG Base Excess 5.7 H ABG Hemoglobin 10.3 L VBG pH Oxyhemoglobin 94.6 L Sodium 151 H D Potassium Chloride Carbon Dioxide BUN Creatinine Glucose POC Glucose Lactic Acid Calcium Phosphorus Magnesium Ferritin Total Bilirubin Direct Bilirubin AST ALT Ammonia Lactate Dehydrogenase C-Reactive Protein Total Protein Albumin Urine Creatinine 28.3 H Urine Total Protein Coronavirus (PCR) 04/20/22 04/20/22 04/20/22 06:00 06:00 06:29 WBC 18.7 H RBC 3.58 L Hgb Hct RDW 16.4 H Plt Count 130 L Lymph % (Auto) Lymph # (Auto) Seg Neutrophils % Seg Neuts % (Manual) Lymphocytes % (Manual) Seg Neutrophils # Seg Neutrophils # Man Lymphocytes # (Manual) D-Dimer ABG pH ABG pO2 ABG HCO3 ABG O2 Saturation ABG Base Excess ABG Hemoglobin VBG pH Oxyhemoglobin Sodium 156 H Potassium Chloride 118.3 H Carbon Dioxide 34 H BUN 52 H Creatinine Glucose 246 H POC Glucose 233 H Lactic Acid Calcium Phosphorus Magnesium Ferritin Total Bilirubin Direct Bilirubin AST ALT Ammonia Lactate Dehydrogenase C-Reactive Protein Total Protein Albumin Urine Creatinine Urine Total Protein Coronavirus (PCR) 04/20/22 04/20/22 04/21/22 11:12 Unknown 00:09 WBC RBC Hgb Hct RDW Plt Count Lymph % (Auto) Lymph # (Auto) Seg Neutrophils % Seg Neuts % (Manual) Lymphocytes % (Manual) Seg Neutrophils # Seg Neutrophils # Man Lymphocytes # (Manual) D-Dimer ABG pH ABG pO2 ABG HCO3 ABG O2 Saturation ABG Base Excess ABG Hemoglobin VBG pH Oxyhemoglobin Sodium 155 H Potassium Chloride Carbon Dioxide BUN Creatinine Glucose POC Glucose 224 H 205 H Lactic Acid Calcium Phosphorus Magnesium Ferritin Total Bilirubin Direct Bilirubin AST ALT Ammonia Lactate Dehydrogenase C-Reactive Protein Total Protein Albumin Urine Creatinine Urine Total Protein Coronavirus (PCR) 04/21/22 04/21/22 04/21/22 02:00 04:30 04:30 WBC 14.8 H RBC Hgb Hct RDW 15.9 H Plt Count 109 L Lymph % (Auto) Lymph # (Auto) Seg Neutrophils % Seg Neuts % (Manual) Lymphocytes % (Manual) Seg Neutrophils # Seg Neutrophils # Man Lymphocytes # (Manual) D-Dimer ABG pH ABG pO2 ABG HCO3 ABG O2 Saturation ABG Base Excess ABG Hemoglobin VBG pH Oxyhemoglobin Sodium 156 H 155 H Potassium Chloride 117.4 H Carbon Dioxide BUN 46 H Creatinine Glucose 178 H POC Glucose Lactic Acid Calcium Phosphorus Magnesium Ferritin Total Bilirubin Direct Bilirubin AST ALT Ammonia Lactate Dehydrogenase C-Reactive Protein Total Protein Albumin Urine Creatinine Urine Total Protein Coronavirus (PCR) 04/21/22 04/21/22 04/21/22 11:46 13:12 16:59 WBC RBC Hgb Hct RDW Plt Count Lymph % (Auto) Lymph # (Auto) Seg Neutrophils % Seg Neuts % (Manual) Lymphocytes % (Manual) Seg Neutrophils # Seg Neutrophils # Man Lymphocytes # (Manual) D-Dimer ABG pH ABG pO2 ABG HCO3 ABG O2 Saturation ABG Base Excess ABG Hemoglobin VBG pH Oxyhemoglobin Sodium 153 H Potassium Chloride Carbon Dioxide BUN Creatinine Glucose POC Glucose 113 H 112 H Lactic Acid Calcium Phosphorus Magnesium Ferritin Total Bilirubin Direct Bilirubin AST ALT Ammonia Lactate Dehydrogenase C-Reactive Protein Total Protein Albumin Urine Creatinine Urine Total Protein Coronavirus (PCR) 04/21/22 04/21/22 04/21/22 20:13 20:57 23:50 WBC RBC Hgb Hct RDW Plt Count Lymph % (Auto) Lymph # (Auto) Seg Neutrophils % Seg Neuts % (Manual) Lymphocytes % (Manual) Seg Neutrophils # Seg Neutrophils # Man Lymphocytes # (Manual) D-Dimer ABG pH ABG pO2 ABG HCO3 ABG O2 Saturation ABG Base Excess ABG Hemoglobin VBG pH Oxyhemoglobin Sodium 152 H Potassium Chloride Carbon Dioxide BUN Creatinine Glucose POC Glucose 128 H 146 H Lactic Acid Calcium Phosphorus Magnesium Ferritin Total Bilirubin Direct Bilirubin AST ALT Ammonia Lactate Dehydrogenase C-Reactive Protein Total Protein Albumin Urine Creatinine Urine Total Protein Coronavirus (PCR) 04/22/22 04/22/22 04/22/22 02:30 02:30 05:06 WBC 14.8 H RBC 3.41 L Hgb 9.9 L Hct RDW 16.2 H Plt Count 101 L Lymph % (Auto) Lymph # (Auto) Seg Neutrophils % Seg Neuts % (Manual) Lymphocytes % (Manual) Seg Neutrophils # Seg Neutrophils # Man Lymphocytes # (Manual) D-Dimer ABG pH ABG pO2 ABG HCO3 ABG O2 Saturation ABG Base Excess ABG Hemoglobin VBG pH Oxyhemoglobin Sodium 150 H Potassium Chloride 114.1 H Carbon Dioxide BUN 43 H Creatinine Glucose 186 H POC Glucose 167 H Lactic Acid Calcium Phosphorus Magnesium Ferritin Total Bilirubin Direct Bilirubin AST 46 H ALT 105 H Ammonia Lactate Dehydrogenase C-Reactive Protein Total Protein 4.9 L Albumin 3.2 L Urine Creatinine Urine Total Protein Coronavirus (PCR)
--- NOTE | 2022-04-22 12:03 | Progress Note ---
<JULESERIN PhanLisa - Last Filed: 04/22/22 12:14> Assessment and Plan Assessment and plan: This is a 77-year-old female with DM and ovarian cancer in remission admitted for septic shock secondary to COVID-19 pneumonia, acute kidney injury, acute hypoxic respiratory failure and currently in multiorgan failure Neuro: Acute metabolic encephalopathy, myoclonic jerks -Myoclonic jerking aborted with Ativan early in admission but none noted since -Avoid delirium -Reorientation as needed -Maintain sleep-wake cycle -Neurology consulted, appreciate recommendations -Initial CT head showed no acute abnormality -EEG absence of definite epileptiform abnormalities would not rule out the possibility of epilepsy, compatible with moderate to moderately severe diffuse encephalopathy -Repeat CTH shows no acute abnormality -Abnormal EEG with findings consistent with possible encephalopathic process and/or drug effect, no epileptiform discharges appreciated -MRI brain limited by motion, mild microvascular angiopathy and cerebral atrophy without clear evidence of acute infarction Cardiac: NAD -Blood pressure monitoring per protocol -s/p vasopressor support with Levophed, dobutamine, vasopressin -MAP goal greater than 65 -Echocardiogram shows LVEF 55 to 60%, normal bivalve function, mildly dilated right ventricle Respiratory: Acute hypoxic respiratory failure, ARDS -CCM consulted, appreciate recommendations -Intubated in the emergency department 04/09 with 7.00 ETT at 22 the lips -A.m. vent settings: Assist-control rate 18, tidal volume 400, PEEP 6, FiO2 40% -See RT notes for titration -General surgery consulted for trach/peg -VAP bundle -SPO2 monitoring GI: Transaminitis -24 hours -422 ml -PPI -NTR consult for tube feedings -FWF -pending peg -BR: [place] S -Trend LFTs -Abdominal ultrasound shows hepatomegaly and hepatic steatosis, cholelithiasis without sonographic evidence of acute cholecystitis -Abdomen/pelvis CT shows changes suggestive of volume overload with diffuse anasarca and small amount of ascites scattered throughout the abdomen and pelvis, cholelithiasis/gallbladder sludge noted on early abdominal ultrasound, prominent bibasilar pleuralparenchymal disease : Acute kidney injury likely secondary to ischemic acute tubular necrosis, hypernatremia -Nephrology consulted, appreciate recommendations -Strict intake and output -Renally dose medications -Avoid nephrotoxic medications -Daily weights -FeNa calculated at 0.13 -FWF -Renal ultrasound shows mild echogenic kidneys which can be seen in medical renal disease, no hydronephrosis, small amount of free fluid in the abdomen -s/p IV sodium bicarbonate drip and D5W -s/p D5W X 2 bags -04/13 lasix x1 -Trend BMP ID: Septic shock secondary to COVID-19 pneumonia, lactic acidosis -Infectious disease consulted, appreciate recommendations -Admit CXR showed bilateral air space opacities -Covid 19 PCR (+) -s/p Rocephin (04/11-04/15) and vancomycin (04/11-04/14) -abx per ID: cefepime (04/16-04/22), changed to meropenem (04/22) given new fevers -Decadron 8 mg daily for 10 days (04/09-04/18) -Per ID: Due to renal failure, not a candidate for remdesivir -S/p Actemra 04/10 -Contact/droplet precautions -f/u blood culture -Monitor WBC and temperature curve -Trend COVID-19 inflammatory markers Endo: s/p DKA, h/o DM -S/p insulin drip -Avoid hypoglycemia -SSI and long-acting insulin, titrate as needed -Accu-Cheks every 6 Heme: Leukocytosis, elevated Ddimer -BLE dopplar US shows no DVT -Trend CBC -Transfuse hemoglobin less than 7 -Lovenox subcu -Monitor for signs of bleeding -SCDs to BLE while in bed The high probability of a clinically significant, sudden or life threatening deterioration of the [multi] system(s) required my full and direct attention, intervention and personal management. The aggregate critical care time was [60] minutes. This time is in addition to time spent performing reported procedures but includes the following: [x] Data Review and interpretation [x] Patient assessment and monitoring of vital signs [x] Documentation [x] Medication orders and management History Interval history: This is a 77-year-old female with DM and ovarian cancer in remission s/p partial hysterectomy and oophorectomy presented to emergency department on 04/09 with altered mental status, weakness, shortness of breath over the past week with worsening symptoms on 04/09. Of note patient was not vaccinated for COVID-19. In the emergency department patient was very hypoxic on arrival and was placed on 100% nonrebreather, patient was tachypneic and hypotensive and initially was alert and oriented however became lethargic and was intubated for airway protection. Work-up in the emergency department revealed leukocytosis, acute kidney injury, hypokalemia, hyperglycemia. Patient was admitted to the hospitalist service with consults to [facility] with septic shock, COVID-19 PUI, hypokalemia, acute kidney injury, acute metabolic encephalopathy, bilateral pneumonia, lactic acidosis and acute hypoxic respiratory failure. Hospital course to date: 04/10: Patient noted to have myoclonic jerking this morning and was given 2 mg of Ativan which aborted the jerking. Neurology was consulted and MRI and EEG were ordered. Patient admits to rust for MRI at this time. Patient is hypotensive and currently on Levophed, vasopressin and dobutamine. Nephrology consulted for renal failure. Remains on insulin drip and was placed on a bicarbonate drip this morning. Infectious disease consulted who added vancomycin and ordered follow-up labs. Dr. Craig had a conversation with family about prognosis and given multisystem organ failure. We will continue supportive care. 04/11/22-patient seen at bedside. T/V orally intubated. No purposeful response on assessment. make periodic jerking movement. EEG done today-will f/u with result. BICarb d/c -acidosis has improved-started on D5 11/28 NS. Reviewed specialist note and reces-renal US-no acute finding. Continue Pressors for MAPs >65. Wean as tolerated. Bicarb-d/c and start D5W. 04/12: Patient is following commands, nutrition consulted for tube feedings, PEEP decreased with possible PSV in the a.m., insulin drip discontinued and SSI/basal dose insulin started. [facility] will update son. 04/13: Renal function continues to improve, intermittently following commands, [facility] ordered 1 x 40 mg of Lasix repeat CXR in the a.m. Tolerating tube feedings. 04/14: PEEP increased per [facility], will not repeat Lasix again due to increasing renal functions. Ordered CT head. Overnight patient was tachypneic and agitated and Precedex drip was started. We will start Seroquel and wean Precedex as tolerated. 04/15: IVF started by nephro yesterday for hypernatremia, awaiting BMP for today to result. Overnight patient was started on propofol and has propofol and precedex infusing. Fentanyl gtt ordered and precedex gtt discontinued. 04/16: Patient remains on the vent, back on sedation overnight due to vent unsynchrony. Remains encephalopathic, EEG pending, Neurology reconsulted. Continue FWF Q4hrs for hypernatremia and SSI and basal insulin adjusted for better glycemic control. Worsening leukocytosis noted, patient remains afebrile. Patient completed X5 of IV Abx and still on IV steroids, will continue to monitor for now. ID is also following. D/C CCM plan for family phone conference with patient's son tomorrow to discuss goal of care. 04/17: Remains on the vent, mentation is unchanged, MRI and Neurology recs noted. FWF increased due to persistent hypernatremia, X1 dose of kayexalate was also given for hyperkalemia, renal function is improvement. Continue to monitor renal function and electrolytes. Insulin was adjusted for hyperglycemia. Plan for possible family conference meeting today with the tin assorter. 04/18: With worsening hypernatremia this am despite Q4hrs FWF and X1 L of D5 per Nephro. Unclear etiology at this time. Will continue FWF for now and Nephro is also following. ABD US pending for elevated LTFs, will continue to trend LFTs. Still hyperglycemic, insulin adjusted. Patient's family opted for trach and PEG. General Surgery consulted. 04/19: Hypernatremia worsen this am, FWF held due to NPO status. Order placed for D5W X2bags, serial Na ordered. Will also check some urine lytes and serum osmo. CT ado/pelvis and Abd US noted, LFT downtrending. Will continue to trend LFTs. Plan for possible trach and PEG by general Surgery. 04/20: GILES overnight. Hypernatremia improved, continue D5W, FWF, and serial Na check. Possible trach and PEG sometimes next week by general Surgery. 04/21: Vomited this am, TF held, no gastric residual noted. Resume TF and IV Reglan added. Hypernatremia is unchanged continue FWF and serial Na per Nephro. Possible trach and PEG sometimes next week by general Surgery. 04/22: Antibiotics changed to meropenem given fevers, hypernatremia is improving, repeat COVID test ordered for tomorrow. Hospitalist Physical - Constitutional Vitals: Temp Pulse Resp BP Pulse Ox 99.7 F H 127 H 16 140/83 100 04/22/22 08:00 04/22/22 10:00 04/22/22 10:00 04/22/22 10:00 04/22/22 10:00 General appearance: Present: no acute distress, well-nourished, obese, other (Intubated ) - EENT ENT: dentition normal - Neck Neck: Present: normal ROM - Respiratory Respiratory effort: normal Respiratory: bilateral: diminished, rhonchi - Cardiovascular Rhythm: regular Heart Sounds: Present: S1 & S2. Absent: systolic murmur, diastolic murmur - Extremities Extremities: no ischemia, pulses intact, pulses symmetrical, normal temperature, normal color Extremity abnormal: edema Peripheral Pulses: within normal limits - Abdominal General gastrointestinal: soft, non-tender, non-distended, normal bowel sounds - Integumentary Integumentary: Present: warm, dry - Psychiatric Psychiatric: other - Neurologic Neurologic: other (intact gag/cough, does not follow commands) - Allied Health Allied health notes reviewed: nursing, RT HEART Score - HEART Score Age: > 65 Risk factors: 1-2 risk factors Troponin: Troponin T < 0.010 ng/mL (0.00-0.029) 04/09/22 12:52 Troponin: < normal limit - Critical Actions Critical Actions: 4-6 pts:12-16.6% risk of adverse cardiac event. Should be admitted Results - Labs CBC & Chem 7: 04/22/22 02:30 04/22/22 02:30 Labs: Laboratory Last Values WBC 14.8 K/mm3 (4.5-11.0) H 04/22/22 02:30 RBC 3.41 M/mm3 (3.65-5.03) L 04/22/22 02:30 Hgb 9.9 gm/dl (10.1-14.3) L 04/22/22 02:30 Hct 30.4 % (30.3-42.9) 04/22/22 02:30 MCV 89 fl (79-97) 04/22/22 02:30 MCH 29 pg (28-32) 04/22/22 02:30 MCHC 33 % (30-34) 04/22/22 02:30 RDW 16.2 % (13.2-15.2) H 04/22/22 02:30 Plt Count 101 K/mm3 (140-440) L 04/22/22 02:30 Lymph % (Auto) 5.7 % (13.4-35.0) L 04/12/22 00:01 [place] % (Auto) 4.5 % (0.0-7.3) 04/12/22 00:01 Eos % (Auto) 0.0 % (0.0-4.3) 04/12/22 00:01 Baso % (Auto) 0.2 % (0.0-1.8) 04/12/22 00:01 Lymph # (Auto) 0.9 K/mm3 (1.2-5.4) L 04/12/22 00:01 [place] # (Auto) 0.7 K/mm3 (0.0-0.8) 04/12/22 00:01 Eos # (Auto) 0.0 K/mm3 (0.0-0.4) 04/12/22 00:01 Baso # (Auto) 0.0 K/mm3 (0.0-0.1) 04/12/22 00:01 Add Manual Diff Complete 04/10/22 04:24 Total Counted 100 04/10/22 04:24 Seg Neutrophils % 89.6 % (40.0-70.0) H 04/12/22 00:01 Seg Neuts % (Manual) 94.0 % (40.0-70.0) H 04/10/22 04:24 Band Neutrophils % 0 % 04/10/22 04:24 Lymphocytes % (Manual) 3.0 % (13.4-35.0) L 04/10/22 04:24 Reactive Lymphs % (Man) 0 % 04/10/22 04:24 Monocytes % (Manual) 3.0 % (0.0-7.3) 04/10/22 04:24 Eosinophils % (Manual) 0 % (0.0-4.3) 04/10/22 04:24 Basophils % (Manual) 0 % (0.0-1.8) 04/10/22 04:24 Metamyelocytes % 0 % 04/10/22 04:24 Myelocytes % 0 % 04/10/22 04:24 Promyelocytes % 0 % 04/10/22 04:24 Blast Cells % 0 % 04/10/22 04:24 Nucleated RBC % Not Reportable 04/10/22 04:24 Seg Neutrophils # 14.6 K/mm3 (1.8-7.7) H 04/12/22 00:01 Seg Neutrophils # Man 15.4 K/mm3 (1.8-7.7) H 04/10/22 04:24 Band Neutrophils # 0.0 K/mm3 04/10/22 04:24 Lymphocytes # (Manual) 0.5 K/mm3 (1.2-5.4) L 04/10/22 04:24 Abs React Lymphs (Man) 0.0 K/mm3 04/10/22 04:24 Monocytes # (Manual) 0.5 K/mm3 (0.0-0.8) 04/10/22 04:24 Eosinophils # (Manual) 0.0 K/mm3 (0.0-0.4) 04/10/22 04:24 Basophils # (Manual) 0.0 K/mm3 (0.0-0.1) 04/10/22 04:24 Metamyelocytes # 0.0 K/mm3 04/10/22 04:24 Myelocytes # 0.0 K/mm3 04/10/22 04:24 Promyelocytes # 0.0 K/mm3 04/10/22 04:24 Blast Cells # 0.0 K/mm3 04/10/22 04:24 WBC Morphology Not Reportable 04/10/22 04:24 Hypersegmented Neuts Not Reportable 04/10/22 04:24 Hyposegmented Neuts Not Reportable 04/10/22 04:24 Hypogranular Neuts Not Reportable 04/10/22 04:24 Smudge Cells Not Reportable 04/10/22 04:24 Toxic Granulation Not Reportable 04/10/22 04:24 Toxic Vacuolation Not Reportable 04/10/22 04:24 Dohle Bodies Not Reportable 04/10/22 04:24 Pelger-Huet Anomaly Not Reportable 04/10/22 04:24 Aleja Rods Not Reportable 04/10/22 04:24 Platelet Estimate Consistent w auto 04/10/22 04:24 Clumped Platelets Not Reportable 04/10/22 04:24 Plt Clumps, EDTA Not Reportable 04/10/22 04:24 Large Platelets Not Reportable 04/10/22 04:24 Giant Platelets Rare 04/10/22 04:24 Platelet Satelliting Not Reportable 04/10/22 04:24 Plt Morphology Comment Not Reportable 04/10/22 04:24 RBC Morphology Normal 04/10/22 04:24 Dimorphic RBCs Not Reportable 04/10/22 04:24 Polychromasia Not Reportable 04/10/22 04:24 Hypochromasia Not Reportable 04/10/22 04:24 Poikilocytosis Not Reportable 04/10/22 04:24 Anisocytosis Not Reportable 04/10/22 04:24 Microcytosis Not Reportable 04/10/22 04:24 Macrocytosis Not Reportable 04/10/22 04:24 Spherocytes Not Reportable 04/10/22 04:24 Pappenheimer Bodies Not Reportable 04/10/22 04:24 Sickle Cells Not Reportable 04/10/22 04:24 Target Cells Not Reportable 04/10/22 04:24 Tear Drop Cells Not Reportable 04/10/22 04:24 Ovalocytes Not Reportable 04/10/22 04:24 Helmet Cells Not Reportable 04/10/22 04:24 [place] Bodies Not Reportable 04/10/22 04:24 Mathias Rings Not Reportable 04/10/22 04:24 [place] Cells Not Reportable 04/10/22 04:24 Bite Cells Not Reportable 04/10/22 04:24 Crenated Cell Not Reportable 04/10/22 04:24 Elliptocytes Not Reportable 04/10/22 04:24 Acanthocytes (Spur) Not Reportable 04/10/22 04:24 Rouleaux Not Reportable 04/10/22 04:24 Hemoglobin C Crystals Not Reportable 04/10/22 04:24 Schistocytes Not Reportable 04/10/22 04:24 Malaria parasites Not Reportable 04/10/22 04:24 Allan Bodies Not Reportable 04/10/22 04:24 Hem Pathologist Commnt No 04/10/22 04:24 PT 14.5 Sec. (12.2-14.9) 04/09/22 12:52 INR 1.02 (0.87-1.13) 04/09/22 12:52 D-Dimer 3804.33 ng/mlDDU (0-234) H 04/17/22 05:12 ABG pH 7.379 pH Units (7.350-7.450) 04/20/22 04:17 ABG pCO2 55.3 mm Hg 04/20/22 04:17 ABG pO2 86.0 mm Hg (80.0-90.0) 04/20/22 04:17 ABG HCO3 31.9 mmol/L (20.0-26.0) H 04/20/22 04:17 ABG O2 Saturation 96.8 % (95.0-99.0) 04/20/22 04:17 ABG O2 Content 13.8 (0.0-44) 04/20/22 04:17 ABG Base Excess 5.7 mmol/L (-2.0-3.0) H 04/20/22 04:17 ABG Hemoglobin 10.3 gm/dl (12.0-16.0) L 04/20/22 04:17 ABG Carboxyhemoglobin 1.7 % (0.0-5.0) 04/20/22 04:17 ABG Methemoglobin 0.6 % (0.0-1.5) 04/20/22 04:17 VBG pH 7.303 (7.320-7.420) L 04/09/22 12:52 Oxyhemoglobin 94.6 % (95.0-99.0) L 04/20/22 04:17 FiO2 40 % 04/20/22 04:17 Sodium 150 mmol/L (137-145) H 04/22/22 02:30 Potassium 4.4 mmol/L (3.6-5.0) 04/22/22 02:30 Chloride 114.1 mmol/L (98-107) H 04/22/22 02:30 Carbon Dioxide 29 mmol/L (22-30) 04/22/22 02:30 Anion Gap 11 mmol/L 04/22/22 02:30 BUN 43 mg/dL (7-17) H 04/22/22 02:30 Creatinine 1.1 mg/dL (0.6-1.2) 04/22/22 02:30 Estimated GFR 58 ml/min 04/22/22 02:30 BUN/Creatinine Ratio 39 % 04/22/22 02:30 Glucose 186 mg/dL (65-100) H 04/22/22 02:30 POC Glucose 167 mg/dL (70-105) H 04/22/22 05:06 Osmolality 361 Mosm/kg 04/19/22 12:10 Lactic Acid 2.10 mmol/L (0.7-2.0) H* 04/15/22 12:00 Calcium 8.7 mg/dL (8.4-10.2) 04/22/22 02:30 Phosphorus 3.60 mg/dL (2.5-4.5) 04/14/22 07:28 Magnesium 2.90 mg/dL (1.7-2.3) H 04/14/22 07:28 Ferritin 570.8 ng/mL (10.0-200.0) H 04/18/22 05:41 Total Bilirubin 0.60 mg/dL (0.1-1.2) 04/22/22 02:30 Direct Bilirubin 0.5 mg/dL (0-0.2) H 04/16/22 04:00 Indirect Bilirubin 0.4 mg/dL 04/16/22 04:00 AST 46 units/L (5-40) H 04/22/22 02:30 ALT 105 units/L (7-56) H 04/22/22 02:30 Alkaline Phosphatase 122 units/L (35-129) 04/22/22 02:30 Ammonia 20.0 umol/L (25-60) L 04/09/22 12:52 Lactate Dehydrogenase 1473 units/L (91-180) H 04/18/22 05:41 Troponin T < 0.010 ng/mL (0.00-0.029) 04/09/22 12:52 C-Reactive Protein 0.80 mg/dL (0.00-1.30) 04/18/22 05:41 NT-Pro-B Natriuret Pep 101.1 pg/mL (0-900) 04/09/22 13:45 Total Protein 4.9 g/dL (6.3-8.2) L 04/22/22 02:30 Albumin 3.2 g/dL (3.9-5) L 04/22/22 02:30 Albumin/Globulin Ratio 1.9 % 04/22/22 02:30 Procalcitonin 3.13 ng/mL (<0.15) 04/10/22 11:47 TSH 1.560 mlU/mL (0.270-4.200) 04/09/22 12:52 Free T4 1.33 ng/dL (0.76-1.46) 04/09/22 12:52 Urine Color Yellow (Yellow) 04/09/22 13:24 Urine Turbidity Clear (Clear) 04/09/22 13:24 Urine pH 5.0 (5.0-7.0) 04/09/22 13:24 Ur Specific [place] 1.011 (1.003-1.030) 04/09/22 13:24 Urine Protein 30 mg/dl mg/dL (Negative) 04/09/22 13:24 Urine Glucose (UA) Neg mg/dL (Negative) 04/09/22 13:24 Urine Ketones 20 mg/dL (Negative) 04/09/22 13:24 Urine Blood Neg (Negative) 04/09/22 13:24 Urine Nitrite Neg (Negative) 04/09/22 13:24 Urine Bilirubin Neg (Negative) 04/09/22 13:24 Urine Urobilinogen 4.0 mg/dL (<2.0) 04/09/22 13:24 Ur Leukocyte Esterase Neg (Negative) 04/09/22 13:24 Urine WBC (Auto) 2.0 /HPF (0.0-6.0) 04/09/22 13:24 Urine RBC (Auto) < 1.0 /HPF (0.0-6.0) 04/09/22 13:24 U Epithel Cells (Auto) < 1.0 /HPF (0-13.0) 04/09/22 13:24 Urine Mucus Few /HPF 04/09/22 13:24 Urine Eosinophils None seen (None Seen) 04/10/22 14:50 Urine Osmolality 415 Mosm/kg 04/19/22 22:32 Urine Total Volume 750 ml 04/11/22 11:23 Urine Creatinine 28.3 mg/dL (0.1-20.0) H 04/19/22 22:32 Ur Creatinine 24 Hour 1.2 (0.8-2.8) 04/11/22 11:23 Height (in) Not Reportable 04/11/22 11:23 Weight (lb) Not Reportable 04/11/22 11:23 Creatinine Clearance Not Reportable 04/11/22 11:23 Protein/Creatinin Ratio 0.77 04/10/22 14:50 Urine Sodium 89 mmol/L 04/19/22 22:32 Urine Total Protein 172 mg/dL (5-11.8) H 04/10/22 14:50 Random Vancomycin 11.9 ug/mL (0-40.0) 04/11/22 03:58 Urine Opiates Screen Presumptive negative 04/09/22 22:58 Urine Methadone Screen Presumptive negative 04/09/22 22:58 Ur Barbiturates Screen Presumptive negative 04/09/22 22:58 Ur Phencyclidine Scrn Presumptive negative 04/09/22 22:58 Ur Amphetamines Screen Presumptive negative 04/09/22 22:58 U Benzodiazepines Scrn Presumptive negative 04/09/22 22:58 Urine Cocaine Screen Presumptive negative 04/09/22 22:58 U Marijuana (THC) Screen Presumptive negative 04/09/22 22:58 Drugs of Abuse Note Disclamer 04/09/22 22:58 Coronavirus (PCR) Positive (Negative) A 04/09/22 13:02 Influenza A (RT-PCR) Negative (Negative) 04/09/22 14:15 Influenza B (RT-PCR) Negative (Negative) 04/09/22 14:15 Microbiology: Microbiology 04/17/22 18:14 Peripheral/Venous Blood Culture - Preliminary NO GROWTH AFTER 4 DAYS 04/17/22 18:14 Peripheral/Venous Blood Culture - Preliminary NO GROWTH AFTER 4 DAYS [place]/IV: Voiding Method Indwelling Catheter Active Medications - Current Medications Current Medications: Generic Name Dose Route Start Last Admin Trade Name Freq PRN Reason Stop Dose Admin Acetaminophen 650 mg 04/09/22 18:11 04/22/22 05:50 Acetaminophen 325 Mg Tab PO 650 mg Q4H PRN Administration Pain MILD(1-3)/Fever >100.5/CARCAMO Dextrose 0 ml 04/10/22 00:40 Dextrose 50% In Water (25gm) 50 Ml Syringe IV Q30MIN PRN Hypoglycemia Protocol Famotidine 20 mg 04/22/22 10:00 04/22/22 09:45 Famotidine 20 Mg Tab FEEDTUBE 20 mg BID JO ANN Administration Fentanyl 50 mcg 04/15/22 09:25 Fentanyl 100 Mcg/2 Ml Inj IV Q10MIN PRN ANALGESIA Heparin Sodium (Porcine) 5,000 unit 04/17/22 10:00 04/22/22 09:43 Heparin 5,000 Unit/1 Ml Vial SUB-Q 5,000 unit Q12HR JO ANN Administration Fentanyl Citrate 2,000 mcg in 100 mls @ 4.155 mls/hr 04/15/22 10:00 04/21/22 15:16 Fentanyl Drip Premix IV 0 mcg/kg/hr TITR JO ANN 0 mls/hr Titration Protocol 1 MCG/KG/HR Meropenem/Sodium Chloride 1 gram in 100 mls @ 100 mls/hr 04/22/22 12:00 Merrem/Ns 1 Gram/100 Ml IV Q8H JO ANN Protocol Insulin Glargine 40 units 04/20/22 22:00 04/21/22 20:59 Insulin Glargine 100 Units/Ml SUB-Q 40 units QHS JO ANN Administration Insulin Human Lispro 0 unit 04/18/22 12:00 04/22/22 05:13 Insulin Lispro 100 Unit/Ml SUB-Q 3 unit Q6HR JO ANN Administration Protocol Metoclopramide HCl 5 mg 04/21/22 14:00 04/22/22 05:13 Metoclopramide 10 Mg/2 Ml Inj IV 04/23/22 13:59 5 mg Q8H JO ANN Administration Ondansetron HCl 4 mg 04/09/22 18:11 Ondansetron 4 Mg/2 Ml Inj IV Q8H PRN Nausea And Vomiting Senna/Docusate Sodium 2 tab 04/15/22 14:00 04/22/22 09:45 Sennosides/Docusate Sodium 8.6/50 Mg Tab FEEDTUBE 2 tab BID JO ANN Administration Sodium Chloride 10 ml 04/09/22 22:00 04/22/22 09:45 Sodium Chloride 0.9% 10 Ml Flush Syringe IV 10 ml BID JO ANN Administration Sodium Chloride 10 ml 04/09/22 18:11 Sodium Chloride 0.9% 10 Ml Flush Syringe IV PRN PRN LINE FLUSH Nutrition/Malnutrition Assess - Dietary Evaluation Nutrition/Malnutrition Findings: Nutrition Notes Start: 04/12/22 10:07 Freq: Status: Active Protocol: Document 04/15/22 15:18 RYDER (Rec: 04/15/22 15:23 RYDER [id number]) Nutrition Notes Initial or Follow up Reassessment Current Diagnosis Acute Kidney Injury,Diabetes, Sepsis,Respiratory Failure Other Pertinent Diagnosis AMS, Bilat pneu, COVID-19 (+), Hypotension Current Diet TF - Glucerna 1.2 at 55ml/hr Labs/Tests Na 146 BUN 76 Cr 1.9 BG 214 Pertinent Medications Propofol at 9.972ml/hr ( provides 263 kcal) Height 5 ft 7 in Weight 83.1 kg [place] Body Weight (kg) 61.36 BMI 28.7 Weight change and time frame 98% energy 79% pro Weight Status Overweight Subjective/Other Information Pt remains on vent support; not on pressor support at this time. Renal function being monitored closely. Observed TF infusing at goal rate. Burn Absent Trauma Absent #1 Nutrition Diagnosis Inadequate oral intake As Evidenced by Signs and Symptoms EN support continues Diagnosis Progress(for reassessment Continues documentation) Is patient on ventilator? Yes Is Patient Ambulatory and/or Out of Bed No REE-([facility] Jemt-confined to bed) 6619.836 Calculation Used for Recommendations [facility] Additional Notes Pro needs 1.2-2g/k-166g/ day Fluid needs 1ml/kcal Nutrition Intervention Nutrition Support: Continue Glucerna 1.2 at 55ml/ hr with 100ml water flush q4h. Kcal 1,584 Protein (gm) 79 Carbohydrates (gm) 151 Fat (gm) 79 Fluid (mL) 1,063 Fiber (gm) 21 Goal #1 TF tolerance Goal #2 TF to meet at least 75% energy and pro needs Follow-Up By: 04/22/22 Additional Comments F/U: stable TF, vent status, renal function, propofol <JS HAIDER - Last Filed: 04/27/22 07:40> Hospitalist Physical - Constitutional Vitals: Temp Pulse Resp BP Pulse Ox 99.2 F 104 H 22 123/75 100 04/26/22 12:00 04/26/22 12:10 04/26/22 12:00 04/26/22 12:00 04/26/22 12:10 HEART Score - HEART Score Troponin: Troponin T < 0.010 ng/mL (0.00-0.029) 04/09/22 12:52 Results - Labs CBC & Chem 7: 04/26/22 08:15 04/26/22 08:15 Labs: Laboratory Last Values WBC 11.8 K/mm3 (4.5-11.0) H 04/26/22 08:15 RBC 2.98 M/mm3 (3.65-5.03) L 04/26/22 08:15 Hgb 8.8 gm/dl (10.1-14.3) L 04/26/22 08:15 Hct 26.7 % (30.3-42.9) L 04/26/22 08:15 MCV 90 fl (79-97) 04/26/22 08:15 MCH 29 pg (28-32) 04/26/22 08:15 MCHC 33 % (30-34) 04/26/22 08:15 RDW 16.8 % (13.2-15.2) H 04/26/22 08:15 Plt Count 146 K/mm3 (140-440) 04/26/22 08:15 Lymph % (Auto) 5.7 % (13.4-35.0) L 04/12/22 00:01 [place] % (Auto) 4.5 % (0.0-7.3) 04/12/22 00:01 Eos % (Auto) 0.0 % (0.0-4.3) 04/12/22 00:01 Baso % (Auto) 0.2 % (0.0-1.8) 04/12/22 00:01 Lymph # (Auto) 0.9 K/mm3 (1.2-5.4) L 04/12/22 00:01 [place] # (Auto) 0.7 K/mm3 (0.0-0.8) 04/12/22 00:01 Eos # (Auto) 0.0 K/mm3 (0.0-0.4) 04/12/22 00:01 Baso # (Auto) 0.0 K/mm3 (0.0-0.1) 04/12/22 00:01 Add Manual Diff Complete 04/10/22 04:24 Total Counted 100 04/10/22 04:24 Seg Neutrophils % 89.6 % (40.0-70.0) H 04/12/22 00:01 Seg Neuts % (Manual) 94.0 % (40.0-70.0) H 04/10/22 04:24 Band Neutrophils % 0 % 04/10/22 04:24 Lymphocytes % (Manual) 3.0 % (13.4-35.0) L 04/10/22 04:24 Reactive Lymphs % (Man) 0 % 04/10/22 04:24 Monocytes % (Manual) 3.0 % (0.0-7.3) 04/10/22 04:24 Eosinophils % (Manual) 0 % (0.0-4.3) 04/10/22 04:24 Basophils % (Manual) 0 % (0.0-1.8) 04/10/22 04:24 Metamyelocytes % 0 % 04/10/22 04:24 Myelocytes % 0 % 04/10/22 04:24 Promyelocytes % 0 % 04/10/22 04:24 Blast Cells % 0 % 04/10/22 04:24 Nucleated RBC % Not Reportable 04/10/22 04:24 Seg Neutrophils # 14.6 K/mm3 (1.8-7.7) H 04/12/22 00:01 Seg Neutrophils # Man 15.4 K/mm3 (1.8-7.7) H 04/10/22 04:24 Band Neutrophils # 0.0 K/mm3 04/10/22 04:24 Lymphocytes # (Manual) 0.5 K/mm3 (1.2-5.4) L 04/10/22 04:24 Abs React Lymphs (Man) 0.0 K/mm3 04/10/22 04:24 Monocytes # (Manual) 0.5 K/mm3 (0.0-0.8) 04/10/22 04:24 Eosinophils # (Manual) 0.0 K/mm3 (0.0-0.4) 04/10/22 04:24 Basophils # (Manual) 0.0 K/mm3 (0.0-0.1) 04/10/22 04:24 Metamyelocytes # 0.0 K/mm3 04/10/22 04:24 Myelocytes # 0.0 K/mm3 04/10/22 04:24 Promyelocytes # 0.0 K/mm3 04/10/22 04:24 Blast Cells # 0.0 K/mm3 04/10/22 04:24 WBC Morphology Not Reportable 04/10/22 04:24 Hypersegmented Neuts Not Reportable 04/10/22 04:24 Hyposegmented Neuts Not Reportable 04/10/22 04:24 Hypogranular Neuts Not Reportable 04/10/22 04:24 Smudge Cells Not Reportable 04/10/22 04:24 Toxic Granulation Not Reportable 04/10/22 04:24 Toxic Vacuolation Not Reportable 04/10/22 04:24 Dohle Bodies Not Reportable 04/10/22 04:24 Pelger-Huet Anomaly Not Reportable 04/10/22 04:24 Aleja Rods Not Reportable 04/10/22 04:24 Platelet Estimate Consistent w auto 04/10/22 04:24 Clumped Platelets Not Reportable 04/10/22 04:24 Plt Clumps, EDTA Not Reportable 04/10/22 04:24 Large Platelets Not Reportable 04/10/22 04:24 Giant Platelets Rare 04/10/22 04:24 Platelet Satelliting Not Reportable 04/10/22 04:24 Plt Morphology Comment Not Reportable 04/10/22 04:24 RBC Morphology Normal 04/10/22 04:24 Dimorphic RBCs Not Reportable 04/10/22 04:24 Polychromasia Not Reportable 04/10/22 04:24 Hypochromasia Not Reportable 04/10/22 04:24 Poikilocytosis Not Reportable 04/10/22 04:24 Anisocytosis Not Reportable 04/10/22 04:24 Microcytosis Not Reportable 04/10/22 04:24 Macrocytosis Not Reportable 04/10/22 04:24 Spherocytes Not Reportable 04/10/22 04:24 Pappenheimer Bodies Not Reportable 04/10/22 04:24 Sickle Cells Not Reportable 04/10/22 04:24 Target Cells Not Reportable 04/10/22 04:24 Tear Drop Cells Not Reportable 04/10/22 04:24 Ovalocytes Not Reportable 04/10/22 04:24 Helmet Cells Not Reportable 04/10/22 04:24 [place] Bodies Not Reportable 04/10/22 04:24 Mathias Rings Not Reportable 04/10/22 04:24 [place] Cells Not Reportable 04/10/22 04:24 Bite Cells Not Reportable 04/10/22 04:24 Crenated Cell Not Reportable 04/10/22 04:24 Elliptocytes Not Reportable 04/10/22 04:24 Acanthocytes (Spur) Not Reportable 04/10/22 04:24 Rouleaux Not Reportable 04/10/22 04:24 Hemoglobin C Crystals Not Reportable 04/10/22 04:24 Schistocytes Not Reportable 04/10/22 04:24 Malaria parasites Not Reportable 04/10/22 04:24 Allan Bodies Not Reportable 04/10/22 04:24 Hem Pathologist Commnt No 04/10/22 04:24 PT 13.5 Sec. (12.2-14.9) 04/24/22 03:46 INR 0.93 (0.87-1.13) 04/24/22 03:46 APTT 25.9 Sec. (24.2-36.6) 04/24/22 03:46 D-Dimer 3804.33 ng/mlDDU (0-234) H 04/17/22 05:12 ABG pH 7.460 pH Units (7.350-7.450) H 04/26/22 04:10 ABG pCO2 37.3 mm Hg 04/26/22 04:10 ABG pO2 145.9 mm Hg (80.0-90.0) H 04/26/22 04:10 ABG HCO3 25.9 mmol/L (20.0-26.0) 04/26/22 04:10 ABG O2 Saturation 98.9 % (95.0-99.0) 04/26/22 04:10 ABG O2 Content 14.1 (0.0-44) 04/26/22 04:10 ABG Base Excess 2.1 mmol/L (-2.0-3.0) 04/26/22 04:10 ABG Hemoglobin 10.1 gm/dl (12.0-16.0) L 04/26/22 04:10 ABG Carboxyhemoglobin 1.3 % (0.0-5.0) 04/26/22 04:10 ABG Methemoglobin 0.7 % (0.0-1.5) 04/26/22 04:10 VBG pH 7.303 (7.320-7.420) L 04/09/22 12:52 Oxyhemoglobin 96.9 % (95.0-99.0) 04/26/22 04:10 FiO2 35 % 04/26/22 04:10 Sodium 149 mmol/L (137-145) H 04/26/22 08:15 Potassium 4.1 mmol/L (3.6-5.0) 04/26/22 08:15 Chloride 113.3 mmol/L (98-107) H 04/26/22 08:15 Carbon Dioxide 28 mmol/L (22-30) 04/26/22 08:15 Anion Gap 12 mmol/L 04/26/22 08:15 BUN 31 mg/dL (7-17) H 04/26/22 08:15 Creatinine 1.0 mg/dL (0.6-1.2) 04/26/22 08:15 Estimated GFR > 60 ml/min 04/26/22 08:15 BUN/Creatinine Ratio 31 % 04/26/22 08:15 Glucose 74 mg/dL (65-100) 04/26/22 08:15 POC Glucose 85 mg/dL (70-105) 04/26/22 12:10 Osmolality 361 Mosm/kg 04/19/22 12:10 Lactic Acid 2.10 mmol/L (0.7-2.0) H* 04/15/22 12:00 Calcium 8.4 mg/dL (8.4-10.2) 04/26/22 08:15 Phosphorus 3.60 mg/dL (2.5-4.5) 04/14/22 07:28 Magnesium 2.90 mg/dL (1.7-2.3) H 04/14/22 07:28 Ferritin 570.8 ng/mL (10.0-200.0) H 04/18/22 05:41 Total Bilirubin 0.60 mg/dL (0.1-1.2) 04/22/22 02:30 Direct Bilirubin 0.5 mg/dL (0-0.2) H 04/16/22 04:00 Indirect Bilirubin 0.4 mg/dL 04/16/22 04:00 AST 46 units/L (5-40) H 04/22/22 02:30 ALT 105 units/L (7-56) H 04/22/22 02:30 Alkaline Phosphatase 122 units/L (35-129) 04/22/22 02:30 Ammonia 20.0 umol/L (25-60) L 04/09/22 12:52 Lactate Dehydrogenase 1473 units/L (91-180) H 04/18/22 05:41 Troponin T < 0.010 ng/mL (0.00-0.029) 04/09/22 12:52 C-Reactive Protein 0.80 mg/dL (0.00-1.30) 04/18/22 05:41 NT-Pro-B Natriuret Pep 101.1 pg/mL (0-900) 04/09/22 13:45 Total Protein 4.9 g/dL (6.3-8.2) L 04/22/22 02:30 Albumin 3.2 g/dL (3.9-5) L 04/22/22 02:30 Albumin/Globulin Ratio 1.9 % 04/22/22 02:30 Procalcitonin 3.13 ng/mL (<0.15) 04/10/22 11:47 TSH 1.560 mlU/mL (0.270-4.200) 04/09/22 12:52 Free T4 1.33 ng/dL (0.76-1.46) 04/09/22 12:52 Urine Color Yellow (Yellow) 04/09/22 13:24 Urine Turbidity Clear (Clear) 04/09/22 13:24 Urine pH 5.0 (5.0-7.0) 04/09/22 13:24 Ur Specific [place] 1.011 (1.003-1.030) 04/09/22 13:24 Urine Protein 30 mg/dl mg/dL (Negative) 04/09/22 13:24 Urine Glucose (UA) Neg mg/dL (Negative) 04/09/22 13:24 Urine Ketones 20 mg/dL (Negative) 04/09/22 13:24 Urine Blood Neg (Negative) 04/09/22 13:24 Urine Nitrite Neg (Negative) 04/09/22 13:24 Urine Bilirubin Neg (Negative) 04/09/22 13:24 Urine Urobilinogen 4.0 mg/dL (<2.0) 04/09/22 13:24 Ur Leukocyte Esterase Neg (Negative) 04/09/22 13:24 Urine WBC (Auto) 2.0 /HPF (0.0-6.0) 04/09/22 13:24 Urine RBC (Auto) < 1.0 /HPF (0.0-6.0) 04/09/22 13:24 U Epithel Cells (Auto) < 1.0 /HPF (0-13.0) 04/09/22 13:24 Urine Mucus Few /HPF 04/09/22 13:24 Urine Eosinophils None seen (None Seen) 04/10/22 14:50 Urine Osmolality 415 Mosm/kg 04/19/22 22:32 Urine Total Volume 750 ml 04/11/22 11:23 Urine Creatinine 28.3 mg/dL (0.1-20.0) H 04/19/22 22:32 Ur Creatinine 24 Hour 1.2 (0.8-2.8) 04/11/22 11:23 Height (in) Not Reportable 04/11/22 11:23 Weight (lb) Not Reportable 04/11/22 11:23 Creatinine Clearance Not Reportable 04/11/22 11:23 Protein/Creatinin Ratio 0.77 04/10/22 14:50 Urine Sodium 89 mmol/L 04/19/22 22:32 Urine Total Protein 172 mg/dL (5-11.8) H 04/10/22 14:50 Random Vancomycin 11.9 ug/mL (0-40.0) 04/11/22 03:58 Urine Opiates Screen Presumptive negative 04/09/22 22:58 Urine Methadone Screen Presumptive negative 04/09/22 22:58 Ur Barbiturates Screen Presumptive negative 04/09/22 22:58 Ur Phencyclidine Scrn Presumptive negative 04/09/22 22:58 Ur Amphetamines Screen Presumptive negative 04/09/22 22:58 U Benzodiazepines Scrn Presumptive negative 04/09/22 22:58 Urine Cocaine Screen Presumptive negative 04/09/22 22:58 U Marijuana (THC) Screen Presumptive negative 04/09/22 22:58 Drugs of Abuse Note Disclamer 04/09/22 22:58 Coronavirus (PCR) Positive (Negative) A 04/23/22 07:00 Influenza A (RT-PCR) Negative (Negative) 04/09/22 14:15 Influenza B (RT-PCR) Negative (Negative) 04/09/22 14:15 Microbiology: Microbiology 04/23/22 11:22 Peripheral/Venous Blood Culture - Preliminary NO GROWTH AFTER 72 HOURS 04/23/22 10:05 Peripheral/Venous Blood Culture - Preliminary NO GROWTH AFTER 72 HOURS [place]/IV: Voiding Method External Female Catheter Nutrition/Malnutrition Assess - Dietary Evaluation Nutrition/Malnutrition Findings: Nutrition Notes Start: 04/12/22 10:07 Freq: Status: Discharge Protocol: Document 04/22/22 17:08 IZA (Rec: 04/22/22 17:45 IZA [id number]) Nutrition Notes Initial or Follow up Reassessment Current Diagnosis Acute Kidney Injury,Diabetes, Sepsis,Respiratory Failure Other Pertinent Diagnosis COVID-10, Pneumonia, Hypotension, s/p DKA, Metabolic Acidosis. Current Diet TF-Glucerna 1.2 Sean @ 55 ml/hr (since D 04/18). Labs/Tests 04/22: Na 150, Cl 114.1, BUN 43, Glu 186. Pertinent Medications 04/22: Lantus 40 U, others nutritionally unremarkable. Height 5 ft 7 in Weight 88.7 kg [place] Body Weight (kg) 61.36 BMI 30.6 Intake Prior to Admission Poor Weight change and time frame Pt states being unsure if loss body weight [employer]. 5.6 Kg body weight gain in 1 week reported. Weight Status Obese Subjective/Other Information RD consulkt for routine F/U on TF tolerance and continuation . TF continues as prescribed. RN notes on 04/21/22 09:11: 0730-Patient noted to have vomited undigested tube feeds. Tube feeds held at this time. 0915-Dr. Haider and this nurse discussed patient status. Ok to restart tube feeds after 4 hours if residuals <50 cc. Patient to still receive 400 cc water flushes q4 hours due to hypernatremia. Patient ok to receive medications through Left Nare dobhoff. Pt continues on Mechanical ventilation, O2 saturation @ 98%, according to Physical Assessment History notes. Pt has missing teeth, according to Physical Assessment History notes. Pt presents an unspecified Area of Concern on skin, according to Physical Assessment History notes. Plans for Trach/PEG tube placement later this week, according to Progress notes. Percent of energy/protein needs met: Prescribed TF-Glucerna 1.2 Sean @ 55 ml/hr provides for energy/protein needs (1,584 Kcal/79 g) during LOS, 94% Kcal; 88% AA. Burn Absent Trauma Absent GI Symptoms None Difficulty In Swallowing Food Allergy No Skin Integrity/Comment Unspecified Area of Concern. Current % PO Other Minimum of two criteria No #1 Nutrition Diagnosis Inadequate oral intake Diagnosis Progress(for reassessment Continues documentation) Is patient on ventilator? Yes Is Patient Ambulatory and/or Out of Bed No REE-([place] [facility]-confined to bed) [phone] Calculation Used for Recommendations [place] Additional Notes Protein: 1.2-2 g/Kg AdjBW; 90- 140 g/day. Fluids: 1 ml/Kcal, or as per MD. Nutrition Intervention Nutrition Support: Continue TF-Glucerna 1.2 Sean @ 55 ml/hr. Flush: 100 ml water Q 4 hr, or as per MD. Kcal 1,584 Protein (gm) 79 Carbohydrates (gm) 151 Fat (gm) 79 Fluid (mL) 1,063 Fiber (gm) 21 % RDI: 94% Kcal; 88% AA. Goal #1 Provide at least 75% of energy /protein needs through Enteral Feeding during LOS. Goal #2 Maintain body weight within +/ -3% of admission body weight during LOS. Follow-Up By: 04/29/22 Additional Comments Continue monitoring Mechanical Ventilation status, renal function, TF tolerance and BM.
--- NOTE | 2022-04-22 14:16 | Progress Note ---
Assessment and Plan Assessment: Acute kidney injury likely secondary to Ischemic ATN due to Sepsis and Hypotension COVID positive Sepsis Hypotension Diabetes Mellitus/DKA Acute Respiratory Failure Hypokalemia, now Hyperkalemic Metabolic Acidosis Hypophosphatemia Plan: -Labs reviewed, most recent serum Na level was 150 today, yesterday's serum Na level was 153 -Continue free water flushes 400 ml q 4 hrs -Checking serum Na level q 6 hrs for now, goal is to decrease serum Na level < 10 mmol/l within 24 hrs -Renal function reviewed, SCr level was 1.1 today, yesterday's SCr level was 1.1 -Baseline serum creatinine unknown. -Renal ultrasound negative for obstruction -COVID positive as per ID -Renally dose medications -Monitor I/O's daily -Intake= 3298 ml Output= 3290 ml (Net= 8 ml) -Renal plan reviewed by Dr. Lang Subjective Date of service: 04/22/22 Principal diagnosis: encephalopathy Interval history: Labs reviewed Pt intubated in ICU Pt with covid-19, reviewed medical chart, labs, and notes Objective - Vital Signs Vital signs: Vital Signs - 12hr 04/22/22 04/22/22 04/22/22 02:16 02:20 02:30 Temperature Pulse Rate 120 H 123 H 122 H Pulse Rate [ From Monitor] Respiratory 24 21 Rate Blood Pressure 155/87 155/87 O2 Sat by Pulse 100 100 Oximetry 04/22/22 04/22/22 04/22/22 02:46 03:00 03:13 Temperature Pulse Rate 119 H 118 H 121 H Pulse Rate [ From Monitor] Respiratory 31 H 26 H Rate Blood Pressure 139/88 139/88 O2 Sat by Pulse 100 100 Oximetry 04/22/22 04/22/22 04/22/22 03:14 03:16 03:25 Temperature 100.6 F H Pulse Rate 119 H 118 H Pulse Rate [ From Monitor] Respiratory 24 Rate Blood Pressure 150/90 150/90 O2 Sat by Pulse 100 100 Oximetry 04/22/22 04/22/22 04/22/22 03:30 03:46 04:00 Temperature Pulse Rate 120 H 119 H 121 H Pulse Rate [ From Monitor] Respiratory 31 H 24 25 H Rate Blood Pressure 150/90 145/85 145/85 O2 Sat by Pulse 100 100 100 Oximetry 04/22/22 04/22/22 04/22/22 04:16 04:30 04:46 Temperature Pulse Rate 122 H 120 H 122 H Pulse Rate [ From Monitor] Respiratory 21 20 28 H Rate Blood Pressure 140/86 140/86 148/88 O2 Sat by Pulse 100 100 100 Oximetry 04/22/22 04/22/22 04/22/22 05:00 05:16 05:30 Temperature Pulse Rate 122 H 120 H 121 H Pulse Rate [ From Monitor] Respiratory 25 H 24 19 Rate Blood Pressure 148/88 134/86 134/86 O2 Sat by Pulse 100 100 100 Oximetry 04/22/22 04/22/22 04/22/22 05:46 06:00 06:16 Temperature Pulse Rate 120 H 122 H 120 H Pulse Rate [ From Monitor] Respiratory 24 31 H 24 Rate Blood Pressure 145/91 145/91 131/86 O2 Sat by Pulse 100 100 100 Oximetry 04/22/22 04/22/22 04/22/22 06:30 06:46 07:00 Temperature Pulse Rate 121 H 118 H 117 H Pulse Rate [ From Monitor] Respiratory 27 H 24 22 Rate Blood Pressure 131/86 142/85 142/85 O2 Sat by Pulse 100 100 100 Oximetry 04/22/22 04/22/22 04/22/22 07:16 07:30 07:46 Temperature Pulse Rate 118 H 118 H 118 H Pulse Rate [ From Monitor] Respiratory 23 22 26 H Rate Blood Pressure 143/83 143/83 143/83 O2 Sat by Pulse 100 100 100 Oximetry 04/22/22 04/22/22 04/22/22 08:00 08:02 08:16 Temperature 99.7 F H Pulse Rate 119 H 116 H 114 H Pulse Rate [ 116 H From Monitor] Respiratory 19 31 H 18 Rate Blood Pressure 130/88 145/82 O2 Sat by Pulse 100 100 100 Oximetry 04/22/22 04/22/22 04/22/22 08:30 08:46 09:00 Temperature Pulse Rate 115 H 116 H 116 H Pulse Rate [ From Monitor] Respiratory 23 24 22 Rate Blood Pressure 145/82 130/88 145/82 O2 Sat by Pulse 100 100 100 Oximetry 04/22/22 04/22/22 04/22/22 09:16 09:30 09:46 Temperature Pulse Rate 116 H 118 H 116 H Pulse Rate [ From Monitor] Respiratory 21 19 18 Rate Blood Pressure 138/87 138/87 140/83 O2 Sat by Pulse 100 100 100 Oximetry 04/22/22 04/22/22 04/22/22 10:00 10:16 10:30 Temperature Pulse Rate 127 H 126 H 122 H Pulse Rate [ From Monitor] Respiratory 16 18 20 Rate Blood Pressure 140/83 145/85 145/85 O2 Sat by Pulse 100 100 99 Oximetry 04/22/22 04/22/22 04/22/22 10:46 11:00 11:16 Temperature Pulse Rate 125 H 123 H 125 H Pulse Rate [ From Monitor] Respiratory 24 25 H 22 Rate Blood Pressure 146/92 146/92 140/95 O2 Sat by Pulse 99 99 99 Oximetry 04/22/22 04/22/22 04/22/22 11:30 11:46 11:51 Temperature Pulse Rate 125 H 126 H 126 H Pulse Rate [ From Monitor] Respiratory 26 H 24 Rate Blood Pressure 140/95 148/93 148/93 O2 Sat by Pulse 100 100 99 Oximetry 04/22/22 04/22/22 04/22/22 12:00 12:01 12:16 Temperature 98.9 F Pulse Rate 129 H 128 H 129 H Pulse Rate [ 128 H From Monitor] Respiratory 18 18 22 Rate Blood Pressure 148/93 150/96 O2 Sat by Pulse 99 98 98 Oximetry 04/22/22 04/22/22 04/22/22 12:30 12:46 13:00 Temperature Pulse Rate 128 H 130 H 130 H Pulse Rate [ From Monitor] Respiratory 28 H 24 21 Rate Blood Pressure 150/96 162/96 162/96 O2 Sat by Pulse 99 99 99 Oximetry 04/22/22 13:16 Temperature Pulse Rate 132 H Pulse Rate [ From Monitor] Respiratory 16 Rate Blood Pressure 161/90 O2 Sat by Pulse 99 Oximetry - Lab 04/22/22 02:30 04/22/22 02:30 Most recent lab results ABG pH 7.379 pH Units (7.350-7.450) 04/20/22 04:17 ABG pCO2 55.3 mm Hg 04/20/22 04:17 ABG pO2 86.0 mm Hg (80.0-90.0) 04/20/22 04:17 ABG HCO3 31.9 mmol/L (20.0-26.0) H 04/20/22 04:17 ABG O2 Saturation 96.8 % (95.0-99.0) 04/20/22 04:17 Calcium 8.7 mg/dL (8.4-10.2) 04/22/22 02:30 Phosphorus 3.60 mg/dL (2.5-4.5) 04/14/22 07:28 Magnesium 2.90 mg/dL (1.7-2.3) H 04/14/22 07:28 Urine Creatinine 28.3 mg/dL (0.1-20.0) H 04/19/22 22:32 Urine Sodium 89 mmol/L 04/19/22 22:32 Urine Total Protein 172 mg/dL (5-11.8) H 04/10/22 14:50 Medications & Allergies - Medications Allergies/Adverse Reactions: Allergies No Known Allergies Allergy (Verified 04/09/22 13:44) Active Medications: Generic Name Dose Route Start Last Admin Trade Name Freq PRN Reason Stop Dose Admin Acetaminophen 650 mg 04/09/22 18:11 04/22/22 05:50 Acetaminophen 325 Mg Tab PO 650 mg Q4H PRN Administration Pain MILD(1-3)/Fever >100.5/CARCAMO Dextrose 0 ml 04/10/22 00:40 Dextrose 50% In Water (25gm) 50 Ml Syringe IV Q30MIN PRN Hypoglycemia Protocol Famotidine 20 mg 04/22/22 10:00 04/22/22 09:45 Famotidine 20 Mg Tab FEEDTUBE 20 mg BID JO ANN Administration Fentanyl 50 mcg 04/15/22 09:25 Fentanyl 100 Mcg/2 Ml Inj IV Q10MIN PRN ANALGESIA Heparin Sodium (Porcine) 5,000 unit 04/17/22 10:00 04/22/22 09:43 Heparin 5,000 Unit/1 Ml Vial SUB-Q 5,000 unit Q12HR JO ANN Administration Fentanyl Citrate 2,000 mcg in 100 mls @ 4.155 mls/hr 04/15/22 10:00 04/21/22 15:16 Fentanyl Drip Premix IV 0 mcg/kg/hr TITR JO ANN 0 mls/hr Titration Protocol 1 MCG/KG/HR Meropenem/Sodium Chloride 1 gram in 100 mls @ 100 mls/hr 04/22/22 12:00 Merrem/Ns 1 Gram/100 Ml IV Q8H JO ANN Protocol Insulin Glargine 40 units 04/20/22 22:00 04/21/22 20:59 Insulin Glargine 100 Units/Ml SUB-Q 40 units QHS JO ANN Administration Insulin Human Lispro 0 unit 04/18/22 12:00 04/22/22 05:13 Insulin Lispro 100 Unit/Ml SUB-Q 3 unit Q6HR JO ANN Administration Protocol Metoclopramide HCl 5 mg 04/21/22 14:00 04/22/22 05:13 Metoclopramide 10 Mg/2 Ml Inj IV 04/23/22 13:59 5 mg Q8H JO ANN Administration Ondansetron HCl 4 mg 04/09/22 18:11 Ondansetron 4 Mg/2 Ml Inj IV Q8H PRN Nausea And Vomiting Senna/Docusate Sodium 2 tab 04/15/22 14:00 04/22/22 09:45 Sennosides/Docusate Sodium 8.6/50 Mg Tab FEEDTUBE 2 tab BID JO ANN Administration Sodium Chloride 10 ml 04/09/22 22:00 04/22/22 09:45 Sodium Chloride 0.9% 10 Ml Flush Syringe IV 10 ml BID JO ANN Administration Sodium Chloride 10 ml 04/09/22 18:11 Sodium Chloride 0.9% 10 Ml Flush Syringe IV PRN PRN LINE FLUSH
[2022-04-22] MEDS: MEROPENEM/NS 1 GRAM/100 ML 1 GRAM/100 ML BAG IV SCH ×2 (14:23→20:22)
[2022-04-22] MEDS: fentaNYL 100 MCG/2 ML INJ IV PRN ×3 (16:23→20:17)
[2022-04-22] MEDS ORDERED: METOPROLOL TARTRATE 5 MG/5 ML INJ IV PRN (17:01)
--- NOTE | 2022-04-22 18:59 | XRay Report ---
XR chest 1V ap INDICATION / CLINICAL INFORMATION: chest pain. COMPARISON: Radiograph from yesterday. FINDINGS: SUPPORT DEVICES: Unchanged. HEART /PULMONARY VASCULATURE: Unchanged. LUNGS / PLEURA: There is slight improvement in bilateral airspace disease. Moderate airspace consolid ation remains within both lung bases. No sizable pleural effusion. No pneumothorax. IMPRESSION: Slight improvement in diffuse pulmonary airspace disease. Signer Name: Adria Lowe MD Signed: 04/22/2022 6:55 PM Workstation Name: [id number]
[2022-04-22] MEDS: fentaNYL DRIP Premix 2,000 MCG/100 ML BAG IV SCH (20:40)
[2022-04-22] MEDS: INSULIN GLARGINE 100 UNITS/ML SUB-Q SCH (21:00)
[2022-04-23] MEDS: MEROPENEM/NS 1 GRAM/100 ML 1 GRAM/100 ML BAG IV SCH ×3 (03:06→20:17)
[2022-04-23 04:53] LABS: Hematocrit 33.9 % (30.3-42.9); Hemoglobin 10.7 gm/dl (10.1-14.3); Mean Corpuscular HGB Conc 32 % (30-34); Mean Corpuscular Volume 91 fl (79-97); Platelet Count 116 K/mm3 (140-440); Red Blood Count 3.75 M/mm3 (3.65-5.03); Red Cell Distribution Width 16.2 % (13.2-15.2)
[2022-04-23 05:09] LABS: Calcium 8.4 mg/dL (8.4-10.2)
[2022-04-23] MEDS: INSULIN LISPRO 100 UNIT/ML SUB-Q SCH ×4 (05:13→23:30)
[2022-04-23] MEDS: METOCLOPRAMIDE 10 MG/2 ML INJ IV SCH (05:13)
--- NOTE | 2022-04-23 07:12 | Progress Note ---
Assessment and Plan 77 y/o female with multisystem organ failure, COVID positive 04/23/22: COVID test today. PSV as tolerated. Follow renal recs in regards to increase in Na and Cr. Guarded to poor prognosis. 04/22/22: WIll need repeat COVID test tomorrow. Attempt PSV as tolerated. Na remains elevated, will defer to renal. Guarded to poor prognosis. 04/19/22: Down to 6 of PEEP and 40%. Not breathing over the vent. Will get ABG tomorrow. Na continues to increase. Sending serum and urine osms. Follow up any new renal recs for today. Plan for trach and peg later this afternoon. Prognosis remains guarded to poor. 04/18/22: Peep and FiO2 weaned this am. No blood gas this am but sat is 100. Will order ABG for tomorrow morning. Will order repeat CMP and ask that phlebotomy do a fresh stick on patient and not draw from picc line. Once trached and pegged will work on placement. Reviewed meds but none that would cause persistent to worsening hypernatremia. Guarded to poor prognosis. 04/17/22: Continue PEEP at 10. Down to 45%. Do not see a blood gas from this morning. Neurology saw this am. MRI negative. Family meeting today at 1330. Guarded to poor prognosis. 04/16/22: Continue PEEP at 10 until FiO2 is at 40-45% and sats >92%. Then can start to wean. Just on Fent now, continue bowel regimen. Tolerating tube feeds. Discussed with SECURITY MONITOR on rounds, neurology was seeing but no further notes, no objection to consulting neuro who is here this week, whoever that is. Patient may need MRI as she has had two negative head CT's and still no real explanation for acute change in mental state. Plan to meet/talk with son olinda jauregui about next steps and goals of care. Prognosis remains guarded to now poor given no improvement in mental state. 04/15/22: Hold on any further fluids or lasix. If hypotensive, will add pressors. Continue PEEP at 10. Same acceptable parameters as below for sats and PaO2 as pH. Continue pain control and sedation. Added bowel regimen. Prognosis is still guarded to poor. 04/14/22: Hold on any further lasix. Please do not give any fluids, will see if she re equilbrates on her own. Increase PEEP to 8. Will get head CT today. Patient is now in full blown ARDS from COVID. Increased PEEP to 8 and dropped TV to 400. pH of >7.15 and PaO2 >55 are acceptable. Repeat gas at 1600 today. 04/13/22: Renal function continues to improve and urine output improving as well. Given CXR findings will give lasix 40mg IV x1 today. Repeat CXR tomorrow. Off insulin drip and tolerating feeds. Hold on CT head today but if no improvement or worsening clinical state tomorrow, will repeat. Spoke with family on phone yesterday. Guarded prognosis. 04/12/22: Improved mental state. Feed patient today and stop IVF's and attempt to get off of insulin drip. Dropped Peep to 6. Wean FiO2 for sats >88%. PaO2 of 55 and greater are acceptable. Normal EF on echo. EEG showed diffuse slowing but mental state has improved. Will up date family. 04/11/22: Continue supportive measures. Getting EEG right now. Continue to wean Pressors for MAPs >65. if able to get to just one pressor, will place NG vs OG and attempt trickle feeds. Follow up echo. Down to 45%, good PaO2. Continue to wean, however mental state would preclude extubation at this time. Await renal eval but would like to stop bicarb now that acidosis is better, however needs free water but this could be given do OG/NG if end up placing, otherwise would just do D5W. If able to place tube and feed, then can attempt to get off insulin drip. Plan to update family after echo and EEG read. 1. Neuro-concern for seizures. EEG pending. Hold on long acting anti-epileptic therapy. Neurology consulted and has seen. patient is not on any continuous sedation at present 2. CV-Cardiovascular collapse on pressors (3). Could benefit from echo. Attempt volume resuscitation but no improvement. Continue pressors and wean as tolerated for MAPs >65 3. Pulm-intubated, not on sedation. COVID positive but oxygenation is stable. Per documentation, mainly intubated for airway protection given altered level of mental status. Not a candidate for Remdesivir and may not be a candidate for actemra. Continue steroids and low Tidal volume strategy for lung protection with permissive hypercapnea and lower PaO2 (55-60) if needed. 4. Renal- worsening renal function and decrease in urine output. Renal following. May need HD but would likely not tolerate and CRRT or CVVH is not available here. Worsening lactic acidosis as well. 5. GI-hold on feeds given pressor requirement, prophylactic therapy 6. Endo-continue insulin drip for now Overall prognosis is guarded to poor. Will discuss with immediate family today. CCT 31 minutes Subjective Date of service: 04/23/22 Principal diagnosis: encephalopathy Interval history: Low grade temps last night 100.6. ID saw yesterday and changed to [place]. Na increased and Cr worse today at 1.3 Objective Vital Signs - 12hr 04/22/22 04/22/22 04/22/22 19:15 19:31 19:45 Temperature Pulse Rate 135 H 137 H 138 H Pulse Rate [ From Monitor] Pulse Rate [ None] Respiratory 21 21 17 Rate Blood Pressure 151/87 151/87 142/103 O2 Sat by Pulse 100 99 100 Oximetry 04/22/22 04/22/22 04/22/22 19:46 20:01 20:06 Temperature 100.6 F H Pulse Rate 138 H Pulse Rate [ 137 H From Monitor] Pulse Rate [ None] Respiratory Rate Blood Pressure 142/103 O2 Sat by Pulse 100 100 Oximetry 04/22/22 04/22/22 04/22/22 20:08 20:15 20:31 Temperature Pulse Rate 139 H 130 H Pulse Rate [ From Monitor] Pulse Rate [ None] Respiratory 33 H 37 H Rate Blood Pressure 143/77 143/77 O2 Sat by Pulse 100 100 100 Oximetry 04/22/22 04/22/22 04/22/22 20:45 21:01 21:15 Temperature 100.3 F H Pulse Rate 128 H 126 H 125 H Pulse Rate [ From Monitor] Pulse Rate [ 127 H None] Respiratory 22 22 20 Rate Blood Pressure 131/60 131/60 126/75 O2 Sat by Pulse 100 100 100 Oximetry 04/22/22 04/22/22 04/22/22 21:31 21:45 22:01 Temperature Pulse Rate 122 H 123 H 122 H Pulse Rate [ From Monitor] Pulse Rate [ None] Respiratory 23 23 19 Rate Blood Pressure 126/75 132/69 132/69 O2 Sat by Pulse 100 100 100 Oximetry 04/22/22 04/22/22 04/22/22 22:15 22:31 22:41 Temperature 100 F H Pulse Rate 120 H 119 H Pulse Rate [ From Monitor] Pulse Rate [ 119 H None] Respiratory 21 20 23 Rate Blood Pressure 126/64 126/64 O2 Sat by Pulse 100 100 Oximetry 04/22/22 04/22/22 04/22/22 22:45 23:01 23:15 Temperature Pulse Rate 120 H 119 H 118 H Pulse Rate [ From Monitor] Pulse Rate [ None] Respiratory 21 18 20 Rate Blood Pressure 136/73 136/73 120/58 O2 Sat by Pulse 100 100 100 Oximetry 04/22/22 04/22/22 04/22/22 23:31 23:45 23:47 Temperature Pulse Rate 117 H 119 H 120 H Pulse Rate [ From Monitor] Pulse Rate [ None] Respiratory 19 19 22 Rate Blood Pressure 120/58 130/67 130/67 O2 Sat by Pulse 100 100 100 Oximetry 04/22/22 04/22/22 04/23/22 23:48 23:51 00:01 Temperature 99.9 F H Pulse Rate 119 H Pulse Rate [ 118 H From Monitor] Pulse Rate [ None] Respiratory 21 Rate Blood Pressure 130/67 O2 Sat by Pulse 100 100 Oximetry 04/23/22 04/23/22 04/23/22 00:15 00:31 00:45 Temperature Pulse Rate 120 H 119 H 120 H Pulse Rate [ From Monitor] Pulse Rate [ None] Respiratory 21 22 22 Rate Blood Pressure 134/77 134/77 125/57 O2 Sat by Pulse 100 100 100 Oximetry 04/23/22 04/23/22 04/23/22 01:01 01:15 01:31 Temperature Pulse Rate 118 H 117 H 118 H Pulse Rate [ From Monitor] Pulse Rate [ None] Respiratory 25 H 20 22 Rate Blood Pressure 125/57 129/67 129/67 O2 Sat by Pulse 100 100 100 Oximetry 04/23/22 04/23/22 04/23/22 01:45 02:01 02:15 Temperature Pulse Rate 117 H 119 H 118 H Pulse Rate [ From Monitor] Pulse Rate [ None] Respiratory 22 21 22 Rate Blood Pressure 112/63 112/63 120/67 O2 Sat by Pulse 100 100 100 Oximetry 04/23/22 04/23/22 04/23/22 02:31 02:45 03:01 Temperature Pulse Rate 118 H 120 H 119 H Pulse Rate [ From Monitor] Pulse Rate [ None] Respiratory 22 21 28 H Rate Blood Pressure 120/67 129/72 129/72 O2 Sat by Pulse 100 99 100 Oximetry 04/23/22 04/23/22 04/23/22 03:11 03:15 03:31 Temperature Pulse Rate 117 H 118 H 117 H Pulse Rate [ 117 H From Monitor] Pulse Rate [ None] Respiratory 23 20 Rate Blood Pressure 129/75 129/75 O2 Sat by Pulse 100 100 100 Oximetry 04/23/22 04/23/22 04/23/22 03:42 03:45 04:01 Temperature 98.9 F Pulse Rate 119 H 118 H Pulse Rate [ From Monitor] Pulse Rate [ 118 H None] Respiratory 25 H 25 H 24 Rate Blood Pressure 136/78 136/78 O2 Sat by Pulse 99 99 Oximetry 04/23/22 04/23/22 04/23/22 04:15 04:23 04:31 Temperature Pulse Rate 118 H 118 H 118 H Pulse Rate [ From Monitor] Pulse Rate [ None] Respiratory 21 24 Rate Blood Pressure 130/72 130/72 130/72 O2 Sat by Pulse 100 100 99 Oximetry 04/23/22 04/23/22 04/23/22 04:45 05:01 05:15 Temperature Pulse Rate 116 H 118 H 118 H Pulse Rate [ From Monitor] Pulse Rate [ None] Respiratory 21 25 H 22 Rate Blood Pressure 131/73 131/73 138/75 O2 Sat by Pulse 100 100 100 Oximetry 04/23/22 04/23/22 04/23/22 05:31 05:45 06:01 Temperature Pulse Rate 116 H 116 H 118 H Pulse Rate [ From Monitor] Pulse Rate [ None] Respiratory 20 22 23 Rate Blood Pressure 138/75 144/78 144/78 O2 Sat by Pulse 100 100 100 Oximetry 04/23/22 06:15 Temperature Pulse Rate 116 H Pulse Rate [ From Monitor] Pulse Rate [ None] Respiratory 24 Rate Blood Pressure 138/77 O2 Sat by Pulse 100 Oximetry Constitutional: other (on vent orally intubated eyes open) Eyes: non-icteric, other (scleroedema on rt) ENT: oropharynx moist Ascultation: Bilateral: diminished breath sounds Cardiovascular: regular rate and rhythm Gastrointestinal: normoactive bowel sounds Integumentary: normal Extremities: no cyanosis CBC and BMP: 04/24/22 03:46 04/24/22 04:00 ABG, PT/INR, D-dimer: ABG ABG pH 7.379 pH Units (7.350-7.450) 04/20/22 04:17 ABG pCO2 55.3 mm Hg 04/20/22 04:17 ABG pO2 86.0 mm Hg (80.0-90.0) 04/20/22 04:17 ABG O2 Saturation 96.8 % (95.0-99.0) 04/20/22 04:17 PT/INR, D-dimer PT 14.5 Sec. (12.2-14.9) 04/09/22 12:52 INR 1.02 (0.87-1.13) 04/09/22 12:52 D-Dimer 3804.33 ng/mlDDU (0-234) H 04/17/22 05:12 Abnormal lab findings: Abnormal Labs 04/09/22 04/09/22 04/09/22 11:59 12:52 12:52 WBC RBC Hgb Hct RDW 15.3 H Plt Count Lymph % (Auto) 8.4 L Lymph # (Auto) 0.7 L Seg Neutrophils % 84.6 H Seg Neuts % (Manual) Lymphocytes % (Manual) Seg Neutrophils # Seg Neutrophils # Man Lymphocytes # (Manual) D-Dimer ABG pH ABG pO2 ABG HCO3 ABG O2 Saturation ABG Base Excess ABG Hemoglobin VBG pH Oxyhemoglobin Sodium Potassium Chloride 112.7 H Carbon Dioxide 18 L BUN Creatinine 2.0 H Glucose 204 H POC Glucose 203 H Lactic Acid Calcium Phosphorus Magnesium Ferritin Total Bilirubin 1.30 H Direct Bilirubin AST 47 H ALT Ammonia Lactate Dehydrogenase C-Reactive Protein Total Protein Albumin Urine Creatinine Urine Total Protein Coronavirus (PCR) 04/09/22 04/09/22 04/09/22 12:52 12:52 13:02 WBC RBC Hgb Hct RDW Plt Count Lymph % (Auto) Lymph # (Auto) Seg Neutrophils % Seg Neuts % (Manual) Lymphocytes % (Manual) Seg Neutrophils # Seg Neutrophils # Man Lymphocytes # (Manual) D-Dimer ABG pH ABG pO2 ABG HCO3 ABG O2 Saturation ABG Base Excess ABG Hemoglobin VBG pH 7.303 L Oxyhemoglobin Sodium Potassium Chloride Carbon Dioxide BUN Creatinine Glucose POC Glucose Lactic Acid Calcium Phosphorus Magnesium Ferritin Total Bilirubin Direct Bilirubin AST ALT Ammonia 20.0 L Lactate Dehydrogenase C-Reactive Protein Total Protein Albumin Urine Creatinine Urine Total Protein Coronavirus (PCR) Positive A 04/09/22 04/09/22 04/09/22 15:49 22:15 22:58 WBC RBC Hgb Hct RDW Plt Count Lymph % (Auto) Lymph # (Auto) Seg Neutrophils % Seg Neuts % (Manual) Lymphocytes % (Manual) Seg Neutrophils # Seg Neutrophils # Man Lymphocytes # (Manual) D-Dimer ABG pH 7.097 L* ABG pO2 188.8 H ABG HCO3 7.4 L ABG O2 Saturation 99.1 H ABG Base Excess -20.7 L ABG Hemoglobin VBG pH Oxyhemoglobin Sodium Potassium Chloride 108.8 H Carbon Dioxide 10 L D BUN 20 H Creatinine 2.6 H Glucose 465 H POC Glucose Lactic Acid 2.70 H* Calcium 7.4 L Phosphorus Magnesium Ferritin Total Bilirubin Direct Bilirubin AST ALT Ammonia Lactate Dehydrogenase C-Reactive Protein Total Protein Albumin Urine Creatinine Urine Total Protein Coronavirus (PCR) 04/09/22 04/09/22 04/10/22 23:19 Unknown 00:03 WBC RBC Hgb Hct RDW Plt Count Lymph % (Auto) Lymph # (Auto) Seg Neutrophils % Seg Neuts % (Manual) Lymphocytes % (Manual) Seg Neutrophils # Seg Neutrophils # Man Lymphocytes # (Manual) D-Dimer ABG pH ABG pO2 ABG HCO3 ABG O2 Saturation ABG Base Excess ABG Hemoglobin VBG pH Oxyhemoglobin Sodium Potassium Chloride Carbon Dioxide BUN Creatinine Glucose POC Glucose 356 H Lactic Acid 7.50 H* 6.10 H* Calcium Phosphorus Magnesium Ferritin Total Bilirubin Direct Bilirubin AST ALT Ammonia Lactate Dehydrogenase C-Reactive Protein Total Protein Albumin Urine Creatinine Urine Total Protein Coronavirus (PCR) 04/10/22 04/10/22 04/10/22 02:16 03:03 04:00 WBC RBC Hgb Hct RDW Plt Count Lymph % (Auto) Lymph # (Auto) Seg Neutrophils % Seg Neuts % (Manual) Lymphocytes % (Manual) Seg Neutrophils # Seg Neutrophils # Man Lymphocytes # (Manual) D-Dimer ABG pH ABG pO2 ABG HCO3 ABG O2 Saturation ABG Base Excess ABG Hemoglobin VBG pH Oxyhemoglobin Sodium Potassium Chloride Carbon Dioxide BUN Creatinine Glucose POC Glucose 317 H 325 H 308 H Lactic Acid Calcium Phosphorus Magnesium Ferritin Total Bilirubin Direct Bilirubin AST ALT Ammonia Lactate Dehydrogenase C-Reactive Protein Total Protein Albumin Urine Creatinine Urine Total Protein Coronavirus (PCR) 04/10/22 04/10/22 04/10/22 04:24 04:24 04:24 WBC 16.4 H RBC Hgb Hct RDW 16.2 H Plt Count Lymph % (Auto) Lymph # (Auto) Seg Neutrophils % Seg Neuts % (Manual) 94.0 H Lymphocytes % (Manual) 3.0 L Seg Neutrophils # Seg Neutrophils # Man 15.4 H Lymphocytes # (Manual) 0.5 L D-Dimer ABG pH ABG pO2 ABG HCO3 ABG O2 Saturation ABG Base Excess ABG Hemoglobin VBG pH Oxyhemoglobin Sodium Potassium 2.9 L* D Chloride 116.1 H Carbon Dioxide 11 L BUN 19 H Creatinine 2.5 H Glucose 376 H POC Glucose Lactic Acid Calcium 6.5 L Phosphorus 1.40 L Magnesium 1.60 L Ferritin Total Bilirubin Direct Bilirubin AST 107 H ALT 64 H Ammonia Lactate Dehydrogenase C-Reactive Protein Total Protein 5.5 L Albumin 2.8 L Urine Creatinine Urine Total Protein Coronavirus (PCR) 04/10/22 04/10/22 04/10/22 04:25 05:17 06:00 WBC RBC Hgb Hct RDW Plt Count Lymph % (Auto) Lymph # (Auto) Seg Neutrophils % Seg Neuts % (Manual) Lymphocytes % (Manual) Seg Neutrophils # Seg Neutrophils # Man Lymphocytes # (Manual) D-Dimer ABG pH 7.095 L* ABG pO2 112.3 H ABG HCO3 8.7 L ABG O2 Saturation ABG Base Excess -19.7 L ABG Hemoglobin VBG pH Oxyhemoglobin Sodium Potassium Chloride Carbon Dioxide BUN Creatinine Glucose POC Glucose 343 H 278 H Lactic Acid Calcium Phosphorus Magnesium Ferritin Total Bilirubin Direct Bilirubin AST ALT Ammonia Lactate Dehydrogenase C-Reactive Protein Total Protein Albumin Urine Creatinine Urine Total Protein Coronavirus (PCR) 04/10/22 04/10/22 04/10/22 06:53 07:54 08:58 WBC RBC Hgb Hct RDW Plt Count Lymph % (Auto) Lymph # (Auto) Seg Neutrophils % Seg Neuts % (Manual) Lymphocytes % (Manual) Seg Neutrophils # Seg Neutrophils # Man Lymphocytes # (Manual) D-Dimer ABG pH ABG pO2 ABG HCO3 ABG O2 Saturation ABG Base Excess ABG Hemoglobin VBG pH Oxyhemoglobin Sodium Potassium Chloride Carbon Dioxide BUN Creatinine Glucose POC Glucose 262 H 245 H 215 H Lactic Acid Calcium Phosphorus Magnesium Ferritin Total Bilirubin Direct Bilirubin AST ALT Ammonia Lactate Dehydrogenase C-Reactive Protein Total Protein Albumin Urine Creatinine Urine Total Protein Coronavirus (PCR) 04/10/22 04/10/22 04/10/22 10:12 10:51 11:47 WBC RBC Hgb Hct RDW Plt Count Lymph % (Auto) Lymph # (Auto) Seg Neutrophils % Seg Neuts % (Manual) Lymphocytes % (Manual) Seg Neutrophils # Seg Neutrophils # Man Lymphocytes # (Manual) D-Dimer ABG pH ABG pO2 ABG HCO3 ABG O2 Saturation ABG Base Excess ABG Hemoglobin VBG pH Oxyhemoglobin Sodium 148 H Potassium 3.4 L Chloride 116.7 H Carbon Dioxide 15 L BUN 22 H Creatinine 2.7 H Glucose 190 H POC Glucose 206 H 176 H Lactic Acid Calcium 6.9 L Phosphorus Magnesium Ferritin Total Bilirubin Direct Bilirubin AST ALT Ammonia Lactate Dehydrogenase C-Reactive Protein Total Protein Albumin Urine Creatinine Urine Total Protein Coronavirus (PCR) 04/10/22 04/10/22 04/10/22 11:47 11:47 12:02 WBC RBC Hgb Hct RDW Plt Count Lymph % (Auto) Lymph # (Auto) Seg Neutrophils % Seg Neuts % (Manual) Lymphocytes % (Manual) Seg Neutrophils # Seg Neutrophils # Man Lymphocytes # (Manual) D-Dimer ABG pH ABG pO2 ABG HCO3 ABG O2 Saturation ABG Base Excess ABG Hemoglobin VBG pH Oxyhemoglobin Sodium Potassium Chloride Carbon Dioxide BUN Creatinine Glucose POC Glucose 178 H Lactic Acid Calcium Phosphorus Magnesium Ferritin 1218.0 H Total Bilirubin Direct Bilirubin AST ALT Ammonia Lactate Dehydrogenase 482 H C-Reactive Protein 11.30 H Total Protein Albumin Urine Creatinine Urine Total Protein Coronavirus (PCR) 04/10/22 04/10/22 04/10/22 13:13 13:58 14:50 WBC RBC Hgb Hct RDW Plt Count Lymph % (Auto) Lymph # (Auto) Seg Neutrophils % Seg Neuts % (Manual) Lymphocytes % (Manual) Seg Neutrophils # Seg Neutrophils # Man Lymphocytes # (Manual) D-Dimer ABG pH ABG pO2 ABG HCO3 ABG O2 Saturation ABG Base Excess ABG Hemoglobin VBG pH Oxyhemoglobin Sodium Potassium Chloride Carbon Dioxide BUN Creatinine Glucose POC Glucose 160 H 150 H Lactic Acid Calcium Phosphorus Magnesium Ferritin Total Bilirubin Direct Bilirubin AST ALT Ammonia Lactate Dehydrogenase C-Reactive Protein Total Protein Albumin Urine Creatinine 224.2 H Urine Total Protein 172 H Coronavirus (PCR) 04/10/22 04/10/22 04/10/22 15:24 16:38 16:56 WBC RBC Hgb Hct RDW Plt Count Lymph % (Auto) Lymph # (Auto) Seg Neutrophils % Seg Neuts % (Manual) Lymphocytes % (Manual) Seg Neutrophils # Seg Neutrophils # Man Lymphocytes # (Manual) D-Dimer ABG pH ABG pO2 ABG HCO3 ABG O2 Saturation ABG Base Excess ABG Hemoglobin VBG pH Oxyhemoglobin Sodium Potassium Chloride Carbon Dioxide BUN Creatinine Glucose POC Glucose 140 H 154 H 149 H Lactic Acid Calcium Phosphorus Magnesium Ferritin Total Bilirubin Direct Bilirubin AST ALT Ammonia Lactate Dehydrogenase C-Reactive Protein Total Protein Albumin Urine Creatinine Urine Total Protein Coronavirus (PCR) 04/10/22 04/10/22 04/10/22 18:21 19:21 20:02 WBC RBC Hgb Hct RDW Plt Count Lymph % (Auto) Lymph # (Auto) Seg Neutrophils % Seg Neuts % (Manual) Lymphocytes % (Manual) Seg Neutrophils # Seg Neutrophils # Man Lymphocytes # (Manual) D-Dimer ABG pH ABG pO2 ABG HCO3 ABG O2 Saturation ABG Base Excess ABG Hemoglobin VBG pH Oxyhemoglobin Sodium Potassium Chloride Carbon Dioxide BUN Creatinine Glucose POC Glucose 141 H 126 H 139 H Lactic Acid Calcium Phosphorus Magnesium Ferritin Total Bilirubin Direct Bilirubin AST ALT Ammonia Lactate Dehydrogenase C-Reactive Protein Total Protein Albumin Urine Creatinine Urine Total Protein Coronavirus (PCR) 04/10/22 04/10/22 04/10/22 21:04 21:58 22:20 WBC RBC Hgb Hct RDW Plt Count Lymph % (Auto) Lymph # (Auto) Seg Neutrophils % Seg Neuts % (Manual) Lymphocytes % (Manual) Seg Neutrophils # Seg Neutrophils # Man Lymphocytes # (Manual) D-Dimer ABG pH ABG pO2 ABG HCO3 ABG O2 Saturation ABG Base Excess ABG Hemoglobin VBG pH Oxyhemoglobin Sodium Potassium Chloride 114.5 H Carbon Dioxide 17 L BUN 24 H Creatinine 2.5 H Glucose 165 H POC Glucose 144 H 161 H Lactic Acid Calcium 6.5 L Phosphorus Magnesium Ferritin Total Bilirubin Direct Bilirubin AST ALT Ammonia Lactate Dehydrogenase C-Reactive Protein Total Protein Albumin Urine Creatinine Urine Total Protein Coronavirus (PCR) 04/10/22 04/11/22 04/11/22 23:02 00:08 01:05 WBC RBC Hgb Hct RDW Plt Count Lymph % (Auto) Lymph # (Auto) Seg Neutrophils % Seg Neuts % (Manual) Lymphocytes % (Manual) Seg Neutrophils # Seg Neutrophils # Man Lymphocytes # (Manual) D-Dimer ABG pH ABG pO2 ABG HCO3 ABG O2 Saturation ABG Base Excess ABG Hemoglobin VBG pH Oxyhemoglobin Sodium Potassium Chloride Carbon Dioxide BUN Creatinine Glucose POC Glucose 160 H 148 H 156 H Lactic Acid Calcium Phosphorus Magnesium Ferritin Total Bilirubin Direct Bilirubin AST ALT Ammonia Lactate Dehydrogenase C-Reactive Protein Total Protein Albumin Urine Creatinine Urine Total Protein Coronavirus (PCR) 04/11/22 04/11/22 04/11/22 01:30 02:05 03:04 WBC RBC Hgb Hct RDW Plt Count Lymph % (Auto) Lymph # (Auto) Seg Neutrophils % Seg Neuts % (Manual) Lymphocytes % (Manual) Seg Neutrophils # Seg Neutrophils # Man Lymphocytes # (Manual) D-Dimer ABG pH ABG pO2 75.1 L ABG HCO3 17.2 L ABG O2 Saturation ABG Base Excess -5.8 L ABG Hemoglobin 11.5 L VBG pH Oxyhemoglobin Sodium Potassium Chloride Carbon Dioxide BUN Creatinine Glucose POC Glucose 150 H 168 H Lactic Acid Calcium Phosphorus Magnesium Ferritin Total Bilirubin Direct Bilirubin AST ALT Ammonia Lactate Dehydrogenase C-Reactive Protein Total Protein Albumin Urine Creatinine Urine Total Protein Coronavirus (PCR) 04/11/22 04/11/22 04/11/22 03:58 03:58 04:05 WBC 12.2 H RBC Hgb Hct RDW 15.7 H Plt Count Lymph % (Auto) Lymph # (Auto) Seg Neutrophils % Seg Neuts % (Manual) Lymphocytes % (Manual) Seg Neutrophils # Seg Neutrophils # Man Lymphocytes # (Manual) D-Dimer ABG pH ABG pO2 ABG HCO3 ABG O2 Saturation ABG Base Excess ABG Hemoglobin VBG pH Oxyhemoglobin Sodium 147 H Potassium Chloride 114.2 H Carbon Dioxide 19 L BUN 26 H Creatinine 2.5 H Glucose 154 H POC Glucose 151 H Lactic Acid Calcium 6.8 L Phosphorus Magnesium Ferritin Total Bilirubin Direct Bilirubin AST 106 H ALT 60 H Ammonia Lactate Dehydrogenase C-Reactive Protein Total Protein 5.6 L Albumin 2.7 L Urine Creatinine Urine Total Protein Coronavirus (PCR) 04/11/22 04/11/22 04/11/22 05:14 06:19 08:23 WBC RBC Hgb Hct RDW Plt Count Lymph % (Auto) Lymph # (Auto) Seg Neutrophils % Seg Neuts % (Manual) Lymphocytes % (Manual) Seg Neutrophils # Seg Neutrophils # Man Lymphocytes # (Manual) D-Dimer ABG pH ABG pO2 ABG HCO3 ABG O2 Saturation ABG Base Excess ABG Hemoglobin VBG pH Oxyhemoglobin Sodium Potassium Chloride Carbon Dioxide BUN Creatinine Glucose POC Glucose 134 H 144 H 143 H Lactic Acid Calcium Phosphorus Magnesium Ferritin Total Bilirubin Direct Bilirubin AST ALT Ammonia Lactate Dehydrogenase C-Reactive Protein Total Protein Albumin Urine Creatinine Urine Total Protein Coronavirus (PCR) 04/11/22 04/11/22 04/11/22 09:28 10:06 11:23 WBC RBC Hgb Hct RDW Plt Count Lymph % (Auto) Lymph # (Auto) Seg Neutrophils % Seg Neuts % (Manual) Lymphocytes % (Manual) Seg Neutrophils # Seg Neutrophils # Man Lymphocytes # (Manual) D-Dimer ABG pH ABG pO2 ABG HCO3 ABG O2 Saturation ABG Base Excess ABG Hemoglobin VBG pH Oxyhemoglobin Sodium Potassium Chloride Carbon Dioxide BUN Creatinine Glucose POC Glucose 138 H Lactic Acid Calcium Phosphorus Magnesium Ferritin Total Bilirubin Direct Bilirubin AST ALT Ammonia Lactate Dehydrogenase C-Reactive Protein Total Protein Albumin Urine Creatinine 161.8 H 160.5 H Urine Total Protein Coronavirus (PCR) 04/11/22 04/11/22 04/12/22 15:59 23:58 00:01 WBC 16.2 H RBC Hgb Hct RDW 15.8 H Plt Count Lymph % (Auto) 5.7 L Lymph # (Auto) 0.9 L Seg Neutrophils % 89.6 H Seg Neuts % (Manual) Lymphocytes % (Manual) Seg Neutrophils # 14.6 H Seg Neutrophils # Man Lymphocytes # (Manual) D-Dimer ABG pH ABG pO2 ABG HCO3 ABG O2 Saturation ABG Base Excess ABG Hemoglobin VBG pH Oxyhemoglobin Sodium Potassium Chloride Carbon Dioxide BUN Creatinine Glucose POC Glucose 166 H 150 H Lactic Acid Calcium Phosphorus Magnesium Ferritin Total Bilirubin Direct Bilirubin AST ALT Ammonia Lactate Dehydrogenase C-Reactive Protein Total Protein Albumin Urine Creatinine Urine Total Protein Coronavirus (PCR) 04/12/22 04/12/22 04/12/22 03:20 04:00 04:00 WBC RBC Hgb Hct RDW Plt Count Lymph % (Auto) Lymph # (Auto) Seg Neutrophils % Seg Neuts % (Manual) Lymphocytes % (Manual) Seg Neutrophils # Seg Neutrophils # Man Lymphocytes # (Manual) D-Dimer 1874.86 H ABG pH 7.513 H ABG pO2 61.7 L ABG HCO3 ABG O2 Saturation 94.2 L ABG Base Excess ABG Hemoglobin 11.5 L VBG pH Oxyhemoglobin 92.6 L Sodium Potassium Chloride Carbon Dioxide BUN Creatinine Glucose POC Glucose Lactic Acid Calcium Phosphorus Magnesium Ferritin 890.0 H Total Bilirubin Direct Bilirubin AST ALT Ammonia Lactate Dehydrogenase C-Reactive Protein Total Protein Albumin Urine Creatinine Urine Total Protein Coronavirus (PCR) 04/12/22 04/12/22 04/12/22 04:00 04:20 04:59 WBC RBC Hgb Hct RDW Plt Count Lymph % (Auto) Lymph # (Auto) Seg Neutrophils % Seg Neuts % (Manual) Lymphocytes % (Manual) Seg Neutrophils # Seg Neutrophils # Man Lymphocytes # (Manual) D-Dimer ABG pH ABG pO2 ABG HCO3 ABG O2 Saturation ABG Base Excess ABG Hemoglobin VBG pH Oxyhemoglobin Sodium 146 H Potassium Chloride 108.0 H Carbon Dioxide BUN 38 H Creatinine 2.3 H Glucose 173 H POC Glucose 146 H Lactic Acid Calcium 6.7 L Phosphorus Magnesium Ferritin Total Bilirubin Direct Bilirubin AST ALT Ammonia Lactate Dehydrogenase 763 H C-Reactive Protein 14.10 H Total Protein Albumin Urine Creatinine Urine Total Protein Coronavirus (PCR) 04/12/22 04/12/22 04/12/22 06:05 10:15 11:52 WBC RBC Hgb Hct RDW Plt Count Lymph % (Auto) Lymph # (Auto) Seg Neutrophils % Seg Neuts % (Manual) Lymphocytes % (Manual) Seg Neutrophils # Seg Neutrophils # Man Lymphocytes # (Manual) D-Dimer ABG pH ABG pO2 ABG HCO3 ABG O2 Saturation ABG Base Excess ABG Hemoglobin VBG pH Oxyhemoglobin Sodium Potassium Chloride Carbon Dioxide BUN Creatinine Glucose POC Glucose 190 H 122 H 125 H Lactic Acid Calcium Phosphorus Magnesium Ferritin Total Bilirubin Direct Bilirubin AST ALT Ammonia Lactate Dehydrogenase C-Reactive Protein Total Protein Albumin Urine Creatinine Urine Total Protein Coronavirus (PCR) 04/12/22 04/13/22 04/13/22 13:18 00:14 03:41 WBC RBC Hgb Hct RDW Plt Count Lymph % (Auto) Lymph # (Auto) Seg Neutrophils % Seg Neuts % (Manual) Lymphocytes % (Manual) Seg Neutrophils # Seg Neutrophils # Man Lymphocytes # (Manual) D-Dimer ABG pH 7.487 H ABG pO2 62.1 L ABG HCO3 ABG O2 Saturation 93.2 L ABG Base Excess ABG Hemoglobin 11.9 L VBG pH Oxyhemoglobin 91.5 L Sodium Potassium Chloride Carbon Dioxide BUN 38 H Creatinine 2.1 H Glucose 144 H POC Glucose 208 H Lactic Acid Calcium 7.1 L Phosphorus Magnesium Ferritin Total Bilirubin Direct Bilirubin AST ALT Ammonia Lactate Dehydrogenase C-Reactive Protein Total Protein Albumin Urine Creatinine Urine Total Protein Coronavirus (PCR) 04/13/22 04/13/22 04/14/22 04:31 04:31 03:54 WBC 13.9 H RBC Hgb Hct RDW 15.7 H Plt Count Lymph % (Auto) Lymph # (Auto) Seg Neutrophils % Seg Neuts % (Manual) Lymphocytes % (Manual) Seg Neutrophils # Seg Neutrophils # Man Lymphocytes # (Manual) D-Dimer ABG pH 7.487 H ABG pO2 57.8 L ABG HCO3 ABG O2 Saturation 93.9 L ABG Base Excess ABG Hemoglobin 10.0 L VBG pH Oxyhemoglobin 92.3 L Sodium Potassium Chloride Carbon Dioxide BUN 42 H Creatinine 1.9 H Glucose 204 H POC Glucose Lactic Acid Calcium 7.4 L Phosphorus Magnesium Ferritin Total Bilirubin Direct Bilirubin AST ALT Ammonia Lactate Dehydrogenase C-Reactive Protein Total Protein Albumin Urine Creatinine Urine Total Protein Coronavirus (PCR) 04/14/22 04/14/22 04/14/22 07:28 07:28 07:28 WBC RBC Hgb Hct RDW Plt Count Lymph % (Auto) Lymph # (Auto) Seg Neutrophils % Seg Neuts % (Manual) Lymphocytes % (Manual) Seg Neutrophils # Seg Neutrophils # Man Lymphocytes # (Manual) D-Dimer 5586.76 H ABG pH ABG pO2 ABG HCO3 ABG O2 Saturation ABG Base Excess ABG Hemoglobin VBG pH Oxyhemoglobin Sodium Potassium Chloride Carbon Dioxide BUN Creatinine Glucose POC Glucose Lactic Acid Calcium Phosphorus Magnesium Ferritin 454.7 H Total Bilirubin Direct Bilirubin AST ALT Ammonia Lactate Dehydrogenase 1345 H C-Reactive Protein 4.80 H Total Protein Albumin Urine Creatinine Urine Total Protein Coronavirus (PCR) 04/14/22 04/14/22 04/14/22 07:28 07:28 09:26 WBC 18.6 H RBC 3.59 L Hgb Hct RDW 15.6 H Plt Count Lymph % (Auto) Lymph # (Auto) Seg Neutrophils % Seg Neuts % (Manual) Lymphocytes % (Manual) Seg Neutrophils # Seg Neutrophils # Man Lymphocytes # (Manual) D-Dimer ABG pH ABG pO2 ABG HCO3 ABG O2 Saturation ABG Base Excess ABG Hemoglobin VBG pH Oxyhemoglobin Sodium 149 H Potassium Chloride 110.3 H Carbon Dioxide BUN 57 H Creatinine 2.3 H Glucose 205 H POC Glucose Lactic Acid Calcium Phosphorus Magnesium 2.90 H Ferritin Total Bilirubin Direct Bilirubin AST ALT Ammonia Lactate Dehydrogenase C-Reactive Protein Total Protein Albumin Urine Creatinine Urine Total Protein Coronavirus (PCR) 04/14/22 04/14/22 04/14/22 11:52 15:41 17:18 WBC RBC Hgb Hct RDW Plt Count Lymph % (Auto) Lymph # (Auto) Seg Neutrophils % Seg Neuts % (Manual) Lymphocytes % (Manual) Seg Neutrophils # Seg Neutrophils # Man Lymphocytes # (Manual) D-Dimer ABG pH 7.506 H ABG pO2 51.0 L ABG HCO3 ABG O2 Saturation 87.3 L ABG Base Excess ABG Hemoglobin 10.6 L VBG pH Oxyhemoglobin 85.4 L Sodium Potassium Chloride Carbon Dioxide BUN Creatinine Glucose POC Glucose 173 H 187 H Lactic Acid Calcium Phosphorus Magnesium Ferritin Total Bilirubin Direct Bilirubin AST ALT Ammonia Lactate Dehydrogenase C-Reactive Protein Total Protein Albumin Urine Creatinine Urine Total Protein Coronavirus (PCR) 04/15/22 04/15/22 04/15/22 00:03 03:43 05:47 WBC RBC Hgb Hct RDW Plt Count Lymph % (Auto) Lymph # (Auto) Seg Neutrophils % Seg Neuts % (Manual) Lymphocytes % (Manual) Seg Neutrophils # Seg Neutrophils # Man Lymphocytes # (Manual) D-Dimer ABG pH 7.477 H ABG pO2 59.1 L ABG HCO3 ABG O2 Saturation 90.5 L ABG Base Excess ABG Hemoglobin 9.5 L VBG pH Oxyhemoglobin 88.7 L Sodium Potassium Chloride Carbon Dioxide BUN Creatinine Glucose POC Glucose 246 H 217 H Lactic Acid Calcium Phosphorus Magnesium Ferritin Total Bilirubin Direct Bilirubin AST ALT Ammonia Lactate Dehydrogenase C-Reactive Protein Total Protein Albumin Urine Creatinine Urine Total Protein Coronavirus (PCR) 04/15/22 04/15/22 04/15/22 09:40 10:00 12:00 WBC 19.3 H RBC 3.18 L Hgb 9.3 L Hct 27.7 L RDW 15.8 H Plt Count Lymph % (Auto) Lymph # (Auto) Seg Neutrophils % Seg Neuts % (Manual) Lymphocytes % (Manual) Seg Neutrophils # Seg Neutrophils # Man Lymphocytes # (Manual) D-Dimer ABG pH ABG pO2 ABG HCO3 ABG O2 Saturation ABG Base Excess ABG Hemoglobin VBG pH Oxyhemoglobin Sodium 146 H Potassium Chloride 107.9 H Carbon Dioxide BUN 76 H Creatinine 1.9 H Glucose 214 H POC Glucose Lactic Acid 2.10 H* Calcium 7.7 L Phosphorus Magnesium Ferritin Total Bilirubin Direct Bilirubin AST ALT Ammonia Lactate Dehydrogenase C-Reactive Protein Total Protein Albumin Urine Creatinine Urine Total Protein Coronavirus (PCR) 04/15/22 04/15/22 04/15/22 12:21 17:51 21:39 WBC RBC Hgb Hct RDW Plt Count Lymph % (Auto) Lymph # (Auto) Seg Neutrophils % Seg Neuts % (Manual) Lymphocytes % (Manual) Seg Neutrophils # Seg Neutrophils # Man Lymphocytes # (Manual) D-Dimer ABG pH ABG pO2 ABG HCO3 ABG O2 Saturation ABG Base Excess ABG Hemoglobin VBG pH Oxyhemoglobin Sodium Potassium Chloride Carbon Dioxide BUN Creatinine Glucose POC Glucose 236 H 255 H 223 H Lactic Acid Calcium Phosphorus Magnesium Ferritin Total Bilirubin Direct Bilirubin AST ALT Ammonia Lactate Dehydrogenase C-Reactive Protein Total Protein Albumin Urine Creatinine Urine Total Protein Coronavirus (PCR) 04/16/22 04/16/22 04/16/22 00:17 02:35 04:00 WBC RBC Hgb Hct RDW Plt Count Lymph % (Auto) Lymph # (Auto) Seg Neutrophils % Seg Neuts % (Manual) Lymphocytes % (Manual) Seg Neutrophils # Seg Neutrophils # Man Lymphocytes # (Manual) D-Dimer ABG pH 7.318 L ABG pO2 71.1 L ABG HCO3 27.7 H ABG O2 Saturation 94.8 L ABG Base Excess ABG Hemoglobin 10.3 L VBG pH Oxyhemoglobin 92.9 L Sodium Potassium Chloride Carbon Dioxide BUN Creatinine Glucose POC Glucose 201 H Lactic Acid Calcium Phosphorus Magnesium Ferritin 446.2 H Total Bilirubin Direct Bilirubin AST ALT Ammonia Lactate Dehydrogenase C-Reactive Protein Total Protein Albumin Urine Creatinine Urine Total Protein Coronavirus (PCR) 04/16/22 04/16/22 04/16/22 04:00 06:00 Unknown WBC RBC Hgb Hct RDW Plt Count Lymph % (Auto) Lymph # (Auto) Seg Neutrophils % Seg Neuts % (Manual) Lymphocytes % (Manual) Seg Neutrophils # Seg Neutrophils # Man Lymphocytes # (Manual) D-Dimer 3886.80 H ABG pH ABG pO2 ABG HCO3 ABG O2 Saturation ABG Base Excess ABG Hemoglobin VBG pH Oxyhemoglobin Sodium 148 H Potassium Chloride 109.9 H Carbon Dioxide BUN 84 H Creatinine 1.7 H Glucose 276 H POC Glucose Lactic Acid Calcium Phosphorus Magnesium Ferritin Total Bilirubin Direct Bilirubin 0.5 H AST 69 H ALT 120 H Ammonia Lactate Dehydrogenase 1467 H C-Reactive Protein 1.90 H Total Protein 5.9 L Albumin 3.5 L Urine Creatinine Urine Total Protein Coronavirus (PCR) 04/16/22 04/17/22 04/17/22 Unknown 05:12 05:12 WBC 25.2 H 22.2 H RBC 3.50 L Hgb Hct RDW 15.8 H 15.8 H Plt Count Lymph % (Auto) Lymph # (Auto) Seg Neutrophils % Seg Neuts % (Manual) Lymphocytes % (Manual) Seg Neutrophils # Seg Neutrophils # Man Lymphocytes # (Manual) D-Dimer 3804.33 H ABG pH ABG pO2 ABG HCO3 ABG O2 Saturation ABG Base Excess ABG Hemoglobin VBG pH Oxyhemoglobin Sodium Potassium Chloride Carbon Dioxide BUN Creatinine Glucose POC Glucose Lactic Acid Calcium Phosphorus Magnesium Ferritin Total Bilirubin Direct Bilirubin AST ALT Ammonia Lactate Dehydrogenase C-Reactive Protein Total Protein Albumin Urine Creatinine Urine Total Protein Coronavirus (PCR) 04/17/22 04/17/22 04/17/22 05:12 17:27 20:04 WBC RBC Hgb Hct RDW Plt Count Lymph % (Auto) Lymph # (Auto) Seg Neutrophils % Seg Neuts % (Manual) Lymphocytes % (Manual) Seg Neutrophils # Seg Neutrophils # Man Lymphocytes # (Manual) D-Dimer ABG pH ABG pO2 ABG HCO3 ABG O2 Saturation ABG Base Excess ABG Hemoglobin VBG pH Oxyhemoglobin Sodium 149 H Potassium 5.3 H Chloride 109.4 H Carbon Dioxide BUN 80 H Creatinine 1.5 H Glucose 320 H POC Glucose 308 H 301 H Lactic Acid Calcium Phosphorus Magnesium Ferritin Total Bilirubin Direct Bilirubin AST 171 H ALT 231 H Ammonia Lactate Dehydrogenase C-Reactive Protein Total Protein 5.4 L Albumin 3.7 L Urine Creatinine Urine Total Protein Coronavirus (PCR) 04/18/22 04/18/22 04/18/22 01:55 05:41 05:41 WBC RBC Hgb Hct RDW Plt Count Lymph % (Auto) Lymph # (Auto) Seg Neutrophils % Seg Neuts % (Manual) Lymphocytes % (Manual) Seg Neutrophils # Seg Neutrophils # Man Lymphocytes # (Manual) D-Dimer ABG pH ABG pO2 ABG HCO3 ABG O2 Saturation ABG Base Excess ABG Hemoglobin VBG pH Oxyhemoglobin Sodium 156 H Potassium Chloride 117.8 H Carbon Dioxide BUN 69 H Creatinine 1.3 H Glucose 231 H POC Glucose 301 H Lactic Acid Calcium 8.3 L Phosphorus Magnesium Ferritin 570.8 H Total Bilirubin Direct Bilirubin AST ALT Ammonia Lactate Dehydrogenase 1473 H C-Reactive Protein Total Protein Albumin Urine Creatinine Urine Total Protein Coronavirus (PCR) 04/18/22 04/18/22 04/18/22 05:41 06:09 10:35 WBC 19.6 H RBC 3.38 L Hgb 9.7 L Hct 29.5 L RDW 15.9 H Plt Count Lymph % (Auto) Lymph # (Auto) Seg Neutrophils % Seg Neuts % (Manual) Lymphocytes % (Manual) Seg Neutrophils # Seg Neutrophils # Man Lymphocytes # (Manual) D-Dimer ABG pH ABG pO2 ABG HCO3 ABG O2 Saturation ABG Base Excess ABG Hemoglobin VBG pH Oxyhemoglobin Sodium 156 H Potassium Chloride 118.2 H Carbon Dioxide 32 H BUN 66 H Creatinine 1.3 H Glucose 179 H POC Glucose 210 H Lactic Acid Calcium 8.3 L Phosphorus Magnesium Ferritin Total Bilirubin Direct Bilirubin AST 91 H ALT 234 H Ammonia Lactate Dehydrogenase C-Reactive Protein Total Protein 5.3 L Albumin 3.4 L Urine Creatinine Urine Total Protein Coronavirus (PCR) 04/18/22 04/18/22 04/19/22 11:57 23:36 03:21 WBC RBC Hgb Hct RDW Plt Count Lymph % (Auto) Lymph # (Auto) Seg Neutrophils % Seg Neuts % (Manual) Lymphocytes % (Manual) Seg Neutrophils # Seg Neutrophils # Man Lymphocytes # (Manual) D-Dimer ABG pH ABG pO2 ABG HCO3 ABG O2 Saturation ABG Base Excess ABG Hemoglobin VBG pH Oxyhemoglobin Sodium Potassium Chloride Carbon Dioxide BUN Creatinine Glucose POC Glucose 161 H 209 H 184 H Lactic Acid Calcium Phosphorus Magnesium Ferritin Total Bilirubin Direct Bilirubin AST ALT Ammonia Lactate Dehydrogenase C-Reactive Protein Total Protein Albumin Urine Creatinine Urine Total Protein Coronavirus (PCR) 04/19/22 04/19/22 04/19/22 04:00 04:00 05:58 WBC 18.2 H RBC Hgb Hct RDW 15.7 H Plt Count Lymph % (Auto) Lymph # (Auto) Seg Neutrophils % Seg Neuts % (Manual) Lymphocytes % (Manual) Seg Neutrophils # Seg Neutrophils # Man Lymphocytes # (Manual) D-Dimer ABG pH ABG pO2 ABG HCO3 ABG O2 Saturation ABG Base Excess ABG Hemoglobin VBG pH Oxyhemoglobin Sodium 160 H Potassium Chloride 119.7 H Carbon Dioxide 31 H BUN 60 H Creatinine 1.3 H Glucose 213 H POC Glucose 207 H Lactic Acid Calcium Phosphorus Magnesium Ferritin Total Bilirubin Direct Bilirubin AST 77 H ALT 208 H Ammonia Lactate Dehydrogenase C-Reactive Protein Total Protein 5.8 L Albumin 3.5 L Urine Creatinine Urine Total Protein Coronavirus (PCR) 04/19/22 04/19/22 04/19/22 11:25 17:35 21:56 WBC RBC Hgb Hct RDW Plt Count Lymph % (Auto) Lymph # (Auto) Seg Neutrophils % Seg Neuts % (Manual) Lymphocytes % (Manual) Seg Neutrophils # Seg Neutrophils # Man Lymphocytes # (Manual) D-Dimer ABG pH ABG pO2 ABG HCO3 ABG O2 Saturation ABG Base Excess ABG Hemoglobin VBG pH Oxyhemoglobin Sodium Potassium Chloride Carbon Dioxide BUN Creatinine Glucose POC Glucose 137 H 168 H 188 H Lactic Acid Calcium Phosphorus Magnesium Ferritin Total Bilirubin Direct Bilirubin AST ALT Ammonia Lactate Dehydrogenase C-Reactive Protein Total Protein Albumin Urine Creatinine Urine Total Protein Coronavirus (PCR) 04/19/22 04/20/22 04/20/22 22:32 01:10 04:17 WBC RBC Hgb Hct RDW Plt Count Lymph % (Auto) Lymph # (Auto) Seg Neutrophils % Seg Neuts % (Manual) Lymphocytes % (Manual) Seg Neutrophils # Seg Neutrophils # Man Lymphocytes # (Manual) D-Dimer ABG pH ABG pO2 ABG HCO3 31.9 H ABG O2 Saturation ABG Base Excess 5.7 H ABG Hemoglobin 10.3 L VBG pH Oxyhemoglobin 94.6 L Sodium 151 H D Potassium Chloride Carbon Dioxide BUN Creatinine Glucose POC Glucose Lactic Acid Calcium Phosphorus Magnesium Ferritin Total Bilirubin Direct Bilirubin AST ALT Ammonia Lactate Dehydrogenase C-Reactive Protein Total Protein Albumin Urine Creatinine 28.3 H Urine Total Protein Coronavirus (PCR) 04/20/22 04/20/22 04/20/22 06:00 06:00 06:29 WBC 18.7 H RBC 3.58 L Hgb Hct RDW 16.4 H Plt Count 130 L Lymph % (Auto) Lymph # (Auto) Seg Neutrophils % Seg Neuts % (Manual) Lymphocytes % (Manual) Seg Neutrophils # Seg Neutrophils # Man Lymphocytes # (Manual) D-Dimer ABG pH ABG pO2 ABG HCO3 ABG O2 Saturation ABG Base Excess ABG Hemoglobin VBG pH Oxyhemoglobin Sodium 156 H Potassium Chloride 118.3 H Carbon Dioxide 34 H BUN 52 H Creatinine Glucose 246 H POC Glucose 233 H Lactic Acid Calcium Phosphorus Magnesium Ferritin Total Bilirubin Direct Bilirubin AST ALT Ammonia Lactate Dehydrogenase C-Reactive Protein Total Protein Albumin Urine Creatinine Urine Total Protein Coronavirus (PCR) 04/20/22 04/20/22 04/21/22 11:12 Unknown 00:09 WBC RBC Hgb Hct RDW Plt Count Lymph % (Auto) Lymph # (Auto) Seg Neutrophils % Seg Neuts % (Manual) Lymphocytes % (Manual) Seg Neutrophils # Seg Neutrophils # Man Lymphocytes # (Manual) D-Dimer ABG pH ABG pO2 ABG HCO3 ABG O2 Saturation ABG Base Excess ABG Hemoglobin VBG pH Oxyhemoglobin Sodium 155 H Potassium Chloride Carbon Dioxide BUN Creatinine Glucose POC Glucose 224 H 205 H Lactic Acid Calcium Phosphorus Magnesium Ferritin Total Bilirubin Direct Bilirubin AST ALT Ammonia Lactate Dehydrogenase C-Reactive Protein Total Protein Albumin Urine Creatinine Urine Total Protein Coronavirus (PCR) 04/21/22 04/21/22 04/21/22 02:00 04:30 04:30 WBC 14.8 H RBC Hgb Hct RDW 15.9 H Plt Count 109 L Lymph % (Auto) Lymph # (Auto) Seg Neutrophils % Seg Neuts % (Manual) Lymphocytes % (Manual) Seg Neutrophils # Seg Neutrophils # Man Lymphocytes # (Manual) D-Dimer ABG pH ABG pO2 ABG HCO3 ABG O2 Saturation ABG Base Excess ABG Hemoglobin VBG pH Oxyhemoglobin Sodium 156 H 155 H Potassium Chloride 117.4 H Carbon Dioxide BUN 46 H Creatinine Glucose 178 H POC Glucose Lactic Acid Calcium Phosphorus Magnesium Ferritin Total Bilirubin Direct Bilirubin AST ALT Ammonia Lactate Dehydrogenase C-Reactive Protein Total Protein Albumin Urine Creatinine Urine Total Protein Coronavirus (PCR) 04/21/22 04/21/22 04/21/22 11:46 13:12 16:59 WBC RBC Hgb Hct RDW Plt Count Lymph % (Auto) Lymph # (Auto) Seg Neutrophils % Seg Neuts % (Manual) Lymphocytes % (Manual) Seg Neutrophils # Seg Neutrophils # Man Lymphocytes # (Manual) D-Dimer ABG pH ABG pO2 ABG HCO3 ABG O2 Saturation ABG Base Excess ABG Hemoglobin VBG pH Oxyhemoglobin Sodium 153 H Potassium Chloride Carbon Dioxide BUN Creatinine Glucose POC Glucose 113 H 112 H Lactic Acid Calcium Phosphorus Magnesium Ferritin Total Bilirubin Direct Bilirubin AST ALT Ammonia Lactate Dehydrogenase C-Reactive Protein Total Protein Albumin Urine Creatinine Urine Total Protein Coronavirus (PCR) 04/21/22 04/21/22 04/21/22 20:13 20:57 23:50 WBC RBC Hgb Hct RDW Plt Count Lymph % (Auto) Lymph # (Auto) Seg Neutrophils % Seg Neuts % (Manual) Lymphocytes % (Manual) Seg Neutrophils # Seg Neutrophils # Man Lymphocytes # (Manual) D-Dimer ABG pH ABG pO2 ABG HCO3 ABG O2 Saturation ABG Base Excess ABG Hemoglobin VBG pH Oxyhemoglobin Sodium 152 H Potassium Chloride Carbon Dioxide BUN Creatinine Glucose POC Glucose 128 H 146 H Lactic Acid Calcium Phosphorus Magnesium Ferritin Total Bilirubin Direct Bilirubin AST ALT Ammonia Lactate Dehydrogenase C-Reactive Protein Total Protein Albumin Urine Creatinine Urine Total Protein Coronavirus (PCR) 04/22/22 04/22/22 04/22/22 02:30 02:30 05:06 WBC 14.8 H RBC 3.41 L Hgb 9.9 L Hct RDW 16.2 H Plt Count 101 L Lymph % (Auto) Lymph # (Auto) Seg Neutrophils % Seg Neuts % (Manual) Lymphocytes % (Manual) Seg Neutrophils # Seg Neutrophils # Man Lymphocytes # (Manual) D-Dimer ABG pH ABG pO2 ABG HCO3 ABG O2 Saturation ABG Base Excess ABG Hemoglobin VBG pH Oxyhemoglobin Sodium 150 H Potassium Chloride 114.1 H Carbon Dioxide BUN 43 H Creatinine Glucose 186 H POC Glucose 167 H Lactic Acid Calcium Phosphorus Magnesium Ferritin Total Bilirubin Direct Bilirubin AST 46 H ALT 105 H Ammonia Lactate Dehydrogenase C-Reactive Protein Total Protein 4.9 L Albumin 3.2 L Urine Creatinine Urine Total Protein Coronavirus (PCR) 04/22/22 04/22/22 04/23/22 20:49 23:33 04:00 WBC 17.0 H RBC Hgb Hct RDW 16.2 H Plt Count 116 L Lymph % (Auto) Lymph # (Auto) Seg Neutrophils % Seg Neuts % (Manual) Lymphocytes % (Manual) Seg Neutrophils # Seg Neutrophils # Man Lymphocytes # (Manual) D-Dimer ABG pH ABG pO2 ABG HCO3 ABG O2 Saturation ABG Base Excess ABG Hemoglobin VBG pH Oxyhemoglobin Sodium Potassium Chloride Carbon Dioxide BUN Creatinine Glucose POC Glucose 208 H 210 H Lactic Acid Calcium Phosphorus Magnesium Ferritin Total Bilirubin Direct Bilirubin AST ALT Ammonia Lactate Dehydrogenase C-Reactive Protein Total Protein Albumin Urine Creatinine Urine Total Protein Coronavirus (PCR) 04/23/22 04:00 WBC RBC Hgb Hct RDW Plt Count Lymph % (Auto) Lymph # (Auto) Seg Neutrophils % Seg Neuts % (Manual) Lymphocytes % (Manual) Seg Neutrophils # Seg Neutrophils # Man Lymphocytes # (Manual) D-Dimer ABG pH ABG pO2 ABG HCO3 ABG O2 Saturation ABG Base Excess ABG Hemoglobin VBG pH Oxyhemoglobin Sodium 155 H Potassium Chloride 118.1 H Carbon Dioxide BUN 52 H Creatinine 1.3 H Glucose 223 H POC Glucose Lactic Acid Calcium Phosphorus Magnesium Ferritin Total Bilirubin Direct Bilirubin AST ALT Ammonia Lactate Dehydrogenase C-Reactive Protein Total Protein Albumin Urine Creatinine Urine Total Protein Coronavirus (PCR)
[2022-04-23] MEDS: SENNOSIDES/DOCUSATE SODIUM 8.6/50 MG TAB FEEDTUBE SCH ×2 (09:53→21:20)
[2022-04-23] MEDS: FREE WATER PO SCH ×4 (09:53→23:08)
[2022-04-23] MEDS: FAMOTIDINE 20 MG TAB FEEDTUBE SCH ×2 (09:53→21:20)
[2022-04-23] MEDS: HEPARIN 5,000 UNIT/1 ML VIAL SUB-Q SCH ×2 (09:53→21:18)
--- NOTE | 2022-04-23 10:44 | Electrocardiograph Report ---
[facility], [place] Test Date: 2022-04-22 Test Time: 21:08:12 Pat Name: MICHA TRAORE Department: Room: A254 1 Gender: F [employer]: MELY : 1945 Requested By: ERIN VICENTE Order Number: [id number] Reading MD: Nahun Urbano Measurements Intervals [place] Rate: 125 P: 55 TN: 126 QRS: 11 QRSD: 75 T: 33 QT: 306 QTc: 442 Interpretive Statements Sinus tachycardia No previous ECG available for comparison Electronically Signed On 04-23-2022 10:43:55 EDT by Nahun Urbano
--- NOTE | 2022-04-23 12:23 | Progress Note ---
Assessment and Plan Assessment: Acute Renal Failure likely secondary to Ischemic ATN due to Sepsis and Hypotenison COVID positive Sepsis Hypotension Diabetes Mellitus/DKA Acute Respiratory Failure Hypokalemia, now Hyperkalemic Metabolic Acidosis Hypophosphatemia Plan: Renal labs reviewed. Serum creatinine 1.3 today, yesterday's was 1.3, stable. , yesterday's was 80. UOP was 3150 ml. Baseline serum creatinine unknown. Creatinine clearance on 04/11/22 was 24 ml/min Renal ultrasound- no obstruction CXR- slight improvement in bilateral airspace disease Most recent serum Na level was 155 today, prior was 150 Free water 400 ml every 4 hours via tube feeds Start 1/2NS@ 75 ml/hr x 1 bag Checking serum Na level q 6 hrs for now, goal is to decrease serum Na level < 10 mmol/l within 24 hrs If sodium continues to rise then can consider ruling out Diabetes Insipidus whether nephrogenic vs central and consider ADH challenge test for diagnostic purposes COVID positive-as per ID Renally dose medications Obtain daily weights Monitor I/O's daily Plan of care reviewed by Dr. Lang Subjective Date of service: 04/23/22 Principal diagnosis: encephalopathy Interval history: Patient with active COVID-19 infection, Intubated. Objective - Vital Signs Vital signs: Vital Signs - 12hr 04/23/22 04/23/22 04/23/22 00:31 00:45 01:01 Temperature Pulse Rate 119 H 120 H 118 H Pulse Rate [ From Monitor] Pulse Rate [ None] Respiratory 22 22 25 H Rate Blood Pressure 134/77 125/57 125/57 O2 Sat by Pulse 100 100 100 Oximetry 04/23/22 04/23/22 04/23/22 01:15 01:31 01:45 Temperature Pulse Rate 117 H 118 H 117 H Pulse Rate [ From Monitor] Pulse Rate [ None] Respiratory 20 22 22 Rate Blood Pressure 129/67 129/67 112/63 O2 Sat by Pulse 100 100 100 Oximetry 04/23/22 04/23/22 04/23/22 02:01 02:15 02:31 Temperature Pulse Rate 119 H 118 H 118 H Pulse Rate [ From Monitor] Pulse Rate [ None] Respiratory 21 22 22 Rate Blood Pressure 112/63 120/67 120/67 O2 Sat by Pulse 100 100 100 Oximetry 04/23/22 04/23/22 04/23/22 02:45 03:01 03:11 Temperature Pulse Rate 120 H 119 H 117 H Pulse Rate [ 117 H From Monitor] Pulse Rate [ None] Respiratory 21 28 H Rate Blood Pressure 129/72 129/72 O2 Sat by Pulse 99 100 100 Oximetry 04/23/22 04/23/22 04/23/22 03:15 03:31 03:42 Temperature 98.9 F Pulse Rate 118 H 117 H Pulse Rate [ From Monitor] Pulse Rate [ 118 H None] Respiratory 23 20 25 H Rate Blood Pressure 129/75 129/75 O2 Sat by Pulse 100 100 Oximetry 04/23/22 04/23/22 04/23/22 03:45 04:01 04:15 Temperature Pulse Rate 119 H 118 H 118 H Pulse Rate [ From Monitor] Pulse Rate [ None] Respiratory 25 H 24 21 Rate Blood Pressure 136/78 136/78 130/72 O2 Sat by Pulse 99 99 100 Oximetry 04/23/22 04/23/22 04/23/22 04:23 04:31 04:45 Temperature Pulse Rate 118 H 118 H 116 H Pulse Rate [ From Monitor] Pulse Rate [ None] Respiratory 24 21 Rate Blood Pressure 130/72 130/72 131/73 O2 Sat by Pulse 100 99 100 Oximetry 04/23/22 04/23/22 04/23/22 05:01 05:15 05:31 Temperature Pulse Rate 118 H 118 H 116 H Pulse Rate [ From Monitor] Pulse Rate [ None] Respiratory 25 H 22 20 Rate Blood Pressure 131/73 138/75 138/75 O2 Sat by Pulse 100 100 100 Oximetry 04/23/22 04/23/22 04/23/22 05:45 06:01 06:15 Temperature Pulse Rate 116 H 118 H 116 H Pulse Rate [ From Monitor] Pulse Rate [ None] Respiratory 22 23 24 Rate Blood Pressure 144/78 144/78 138/77 O2 Sat by Pulse 100 100 100 Oximetry 04/23/22 04/23/22 04/23/22 06:31 06:45 07:01 Temperature Pulse Rate 116 H 116 H 117 H Pulse Rate [ From Monitor] Pulse Rate [ None] Respiratory 21 21 19 Rate Blood Pressure 138/77 134/71 134/71 O2 Sat by Pulse 100 100 100 Oximetry 04/23/22 04/23/22 04/23/22 07:15 07:21 07:31 Temperature Pulse Rate 117 H 117 H 116 H Pulse Rate [ From Monitor] Pulse Rate [ None] Respiratory 22 22 Rate Blood Pressure 135/74 135/74 135/74 O2 Sat by Pulse 100 100 100 Oximetry 04/23/22 04/23/22 04/23/22 07:45 08:00 08:01 Temperature 98.7 F Pulse Rate 120 H 116 H 118 H Pulse Rate [ 116 H From Monitor] Pulse Rate [ None] Respiratory 22 19 22 Rate Blood Pressure 133/76 133/76 O2 Sat by Pulse 100 100 99 Oximetry 04/23/22 04/23/22 04/23/22 08:15 08:31 08:45 Temperature Pulse Rate 118 H 117 H 116 H Pulse Rate [ From Monitor] Pulse Rate [ None] Respiratory 22 23 22 Rate Blood Pressure 137/74 137/74 141/73 O2 Sat by Pulse 99 100 100 Oximetry 04/23/22 04/23/22 04/23/22 09:01 09:15 09:31 Temperature Pulse Rate 114 H 115 H 116 H Pulse Rate [ From Monitor] Pulse Rate [ None] Respiratory 18 24 24 Rate Blood Pressure 141/73 154/75 141/73 O2 Sat by Pulse 100 100 100 Oximetry 04/23/22 04/23/22 04/23/22 09:45 10:01 10:15 Temperature Pulse Rate 116 H 116 H 114 H Pulse Rate [ From Monitor] Pulse Rate [ None] Respiratory 20 22 18 Rate Blood Pressure 122/70 122/70 128/77 O2 Sat by Pulse 99 100 100 Oximetry 04/23/22 04/23/22 04/23/22 10:31 10:45 11:01 Temperature Pulse Rate 113 H 114 H 115 H Pulse Rate [ From Monitor] Pulse Rate [ None] Respiratory 20 21 19 Rate Blood Pressure 128/77 124/79 124/79 O2 Sat by Pulse 100 100 100 Oximetry 04/23/22 04/23/22 11:02 11:15 Temperature Pulse Rate 115 H 115 H Pulse Rate [ From Monitor] Pulse Rate [ None] Respiratory 20 Rate Blood Pressure 124/79 119/74 O2 Sat by Pulse 100 100 Oximetry - Lab 04/23/22 04:00 04/23/22 04:00 Most recent lab results ABG pH 7.379 pH Units (7.350-7.450) 04/20/22 04:17 ABG pCO2 55.3 mm Hg 04/20/22 04:17 ABG pO2 86.0 mm Hg (80.0-90.0) 04/20/22 04:17 ABG HCO3 31.9 mmol/L (20.0-26.0) H 04/20/22 04:17 ABG O2 Saturation 96.8 % (95.0-99.0) 04/20/22 04:17 Calcium 8.4 mg/dL (8.4-10.2) 04/23/22 04:00 Phosphorus 3.60 mg/dL (2.5-4.5) 04/14/22 07:28 Magnesium 2.90 mg/dL (1.7-2.3) H 04/14/22 07:28 Urine Creatinine 28.3 mg/dL (0.1-20.0) H 04/19/22 22:32 Urine Sodium 89 mmol/L 04/19/22 22:32 Urine Total Protein 172 mg/dL (5-11.8) H 04/10/22 14:50 Medications & Allergies - Medications Allergies/Adverse Reactions: Allergies No Known Allergies Allergy (Verified 04/09/22 13:44) Active Medications: Generic Name Dose Route Start Last Admin Trade Name Freq PRN Reason Stop Dose Admin Acetaminophen 650 mg 04/09/22 18:11 04/22/22 20:06 Acetaminophen 325 Mg Tab PO 650 mg Q4H PRN Administration Pain MILD(1-3)/Fever >100.5/CARCAMO Dextrose 0 ml 04/10/22 00:40 Dextrose 50% In Water (25gm) 50 Ml Syringe IV Q30MIN PRN Hypoglycemia Protocol Famotidine 20 mg 04/22/22 10:00 04/23/22 09:53 Famotidine 20 Mg Tab FEEDTUBE 20 mg BID JO ANN Administration Fentanyl 50 mcg 04/15/22 09:25 04/22/22 20:17 Fentanyl 100 Mcg/2 Ml Inj IV 50 mcg Q10MIN PRN Administration ANALGESIA Heparin Sodium (Porcine) 5,000 unit 04/17/22 10:00 04/23/22 09:53 Heparin 5,000 Unit/1 Ml Vial SUB-Q 5,000 unit Q12HR JO ANN Administration Fentanyl Citrate 2,000 mcg in 100 mls @ 4.155 mls/hr 04/15/22 10:00 04/22/22 20:40 Fentanyl Drip Premix IV 1.06 mcg/kg/hr TITR JO ANN 4.4 mls/hr Administration Protocol 1 MCG/KG/HR Meropenem/Sodium Chloride 1 gram in 100 mls @ 100 mls/hr 04/22/22 12:00 04/23/22 03:06 Merrem/Ns 1 Gram/100 Ml IV 100 mls/hr Q8H JO ANN Administration Protocol Insulin Glargine 50 units 04/23/22 22:00 Insulin Glargine 100 Units/Ml SUB-Q QHS JO ANN Insulin Human Lispro 0 unit 04/18/22 12:00 04/23/22 05:13 Insulin Lispro 100 Unit/Ml SUB-Q 4 unit Q6HR JO ANN Administration Protocol Metoclopramide HCl 5 mg 04/21/22 14:00 04/23/22 05:13 Metoclopramide 10 Mg/2 Ml Inj IV 04/23/22 13:59 5 mg Q8H JO ANN Administration Metoprolol Tartrate 5 mg 04/22/22 17:01 04/22/22 17:19 Metoprolol Tartrate 5 Mg/5 Ml Inj IV 5 mg Q6H PRN Administration HR >/= 120 Ondansetron HCl 4 mg 04/09/22 18:11 Ondansetron 4 Mg/2 Ml Inj IV Q8H PRN Nausea And Vomiting Senna/Docusate Sodium 2 tab 04/15/22 14:00 04/23/22 09:53 Sennosides/Docusate Sodium 8.6/50 Mg Tab FEEDTUBE 2 tab BID JO ANN Administration Sodium Chloride 10 ml 04/09/22 22:00 04/23/22 09:54 Sodium Chloride 0.9% 10 Ml Flush Syringe IV 10 ml BID JO ANN Administration Sodium Chloride 10 ml 04/09/22 18:11 Sodium Chloride 0.9% 10 Ml Flush Syringe IV PRN PRN LINE FLUSH
[2022-04-23] MEDS: fentaNYL DRIP Premix 2,000 MCG/100 ML BAG IV SCH (12:29)
[2022-04-23] MEDS ORDERED: SODIUM CHLORIDE 0.45% 1000 ML 1,000 ML IV SCH (13:00)
--- NOTE | 2022-04-23 15:03 | Progress Note ---
<JULESERIN PhanLisa - Last Filed: 04/23/22 15:06> Assessment and Plan Assessment and plan: This is a 77-year-old female with DM and ovarian cancer in remission admitted for septic shock secondary to COVID-19 pneumonia, acute kidney injury, acute hypoxic respiratory failure and currently in multiorgan failure Neuro: Acute metabolic encephalopathy, myoclonic jerks -Myoclonic jerking aborted with Ativan early in admission but none noted since -Avoid delirium -Reorientation as needed -Maintain sleep-wake cycle -Neurology consulted, appreciate recommendations -Initial CT head showed no acute abnormality -EEG absence of definite epileptiform abnormalities would not rule out the possibility of epilepsy, compatible with moderate to moderately severe diffuse encephalopathy -Repeat CTH shows no acute abnormality -Abnormal EEG with findings consistent with possible encephalopathic process and/or drug effect, no epileptiform discharges appreciated -MRI brain limited by motion, mild microvascular angiopathy and cerebral atrophy without clear evidence of acute infarction Cardiac: NAD -Blood pressure monitoring per protocol -s/p vasopressor support with Levophed, dobutamine, vasopressin -MAP goal greater than 65 -Echocardiogram shows LVEF 55 to 60%, normal bivalve function, mildly dilated right ventricle Respiratory: Acute hypoxic respiratory failure, ARDS -CCM consulted, appreciate recommendations -Intubated in the emergency department 04/09 with 7.00 ETT at 22 the lips -A.m. vent settings: Assist-control rate 18, tidal volume 400, PEEP 6, FiO2 40% -See RT notes for titration -General surgery consulted for trach/peg->tentative plan for AM -VAP bundle -SPO2 monitoring GI: Transaminitis -24 hours +343 ml -PPI -NTR consult for tube feedings -FWF -pending peg -BR: [place] S -Trend LFTs -Abdominal ultrasound shows hepatomegaly and hepatic steatosis, cholelithiasis without sonographic evidence of acute cholecystitis -Abdomen/pelvis CT shows changes suggestive of volume overload with diffuse anasarca and small amount of ascites scattered throughout the abdomen and pelvis, cholelithiasis/gallbladder sludge noted on early abdominal ultrasound, prominent bibasilar pleuralparenchymal disease : Acute kidney injury likely secondary to ischemic acute tubular necrosis, hypernatremia -Nephrology consulted, appreciate recommendations -Strict intake and output -Renally dose medications -Avoid nephrotoxic medications -Daily weights -FeNa calculated at 0.13 -FWF -Renal ultrasound shows mild echogenic kidneys which can be seen in medical renal disease, no hydronephrosis, small amount of free fluid in the abdomen -s/p IV sodium bicarbonate drip and D5W -s/p D5W X 2 bags -04/13 lasix x1 -MIVF per nephrology -Trend BMP ID: Septic shock secondary to COVID-19 pneumonia, lactic acidosis -Infectious disease consulted, appreciate recommendations -Admit CXR showed bilateral air space opacities -Covid 19 PCR (+) -Repeat covid PCR pending -s/p Rocephin (04/11-04/15) and vancomycin (04/11-04/14) -abx per ID: cefepime (04/16-04/22), changed to meropenem (04/22) given new fevers -Decadron 8 mg daily for 10 days (04/09-04/18) -Per ID: Due to renal failure, not a candidate for remdesivir -S/p Actemra 04/10 -Contact/droplet precautions -f/u blood culture -Monitor WBC and temperature curve -Trend COVID-19 inflammatory markers Endo: s/p DKA, h/o DM -S/p insulin drip -Avoid hypoglycemia -SSI and long-acting insulin, titrate as needed -Accu-Cheks every 6 Heme: Leukocytosis, elevated Ddimer -BLE dopplar US shows no DVT -Trend CBC -Transfuse hemoglobin less than 7 -Lovenox subcu -Monitor for signs of bleeding -SCDs to BLE while in bed The high probability of a clinically significant, sudden or life threatening deterioration of the [multi] system(s) required my full and direct attention, intervention and personal management. The aggregate critical care time was [60] minutes. This time is in addition to time spent performing reported procedures but includes the following: [x] Data Review and interpretation [x] Patient assessment and monitoring of vital signs [x] Documentation [x] Medication orders and management Disposition Plan: icu Total Time Spent with Patient (Minutes): 60 History Interval history: This is a 77-year-old female with DM and ovarian cancer in remission s/p partial hysterectomy and oophorectomy presented to emergency department on 04/09 with altered mental status, weakness, shortness of breath over the past week with worsening symptoms on 04/09. Of note patient was not vaccinated for COVID-19. In the emergency department patient was very hypoxic on arrival and was placed on 100% nonrebreather, patient was tachypneic and hypotensive and initially was alert and oriented however became lethargic and was intubated for airway protection. Work-up in the emergency department revealed leukocytosis, acute kidney injury, hypokalemia, hyperglycemia. Patient was admitted to the hospitalist service with consults to [facility] with septic shock, COVID-19 PUI, hypokalemia, acute kidney injury, acute metabolic encephalopathy, bilateral pneumonia, lactic acidosis and acute hypoxic respiratory failure. Hospital course to date: 04/10: Patient noted to have myoclonic jerking this morning and was given 2 mg of Ativan which aborted the jerking. Neurology was consulted and MRI and EEG were ordered. Patient admits to [facility] for MRI at this time. Patient is hypotensive and currently on Levophed, vasopressin and dobutamine. Nephrology consulted for renal failure. Remains on insulin drip and was placed on a bicarbonate drip this morning. Infectious disease consulted who added vancomycin and ordered follow-up labs. Dr. Craig had a conversation with family about prognosis and given multisystem organ failure. We will continue supportive care. 04/11/22-patient seen at bedside. T/V orally intubated. No purposeful response on assessment. make periodic jerking movement. EEG done today-will f/u with result. BICarb d/c -acidosis has improved-started on D5 1/5 NS. Reviewed specialist note and reces-renal US-no acute finding. Continue Pressors for MAPs >65. Wean as tolerated. Bicarb-d/c and start D5W. 04/12: Patient is following commands, nutrition consulted for tube feedings, PEEP decreased with possible PSV in the a.m., insulin drip discontinued and SSI/basal dose insulin started. [facility] will update son. 04/13: Renal function continues to improve, intermittently following commands, [facility] ordered 1 x 40 mg of Lasix repeat CXR in the a.m. Tolerating tube feedings. 04/14: PEEP increased per [facility], will not repeat Lasix again due to increasing r enal functions. Ordered CT head. Overnight patient was tachypneic and agitated and Precedex drip was started. We will start Seroquel and wean Precedex as tolerated. 04/15: IVF started by nephro yesterday for hypernatremia, awaiting BMP for today to result. Overnight patient was started on propofol and has propofol and precedex infusing. Fentanyl gtt ordered and precedex gtt discontinued. 04/16: Patient remains on the vent, back on sedation overnight due to vent unsynchrony. Remains encephalopathic, EEG pending, Neurology reconsulted. Continue FWF Q4hrs for hypernatremia and SSI and basal insulin adjusted for better glycemic control. Worsening leukocytosis noted, patient remains afebrile. Patient completed X5 of IV Abx and still on IV steroids, will continue to monitor for now. ID is also following. D/C CCM plan for family phone conference with patient's son tomorrow to discuss goal of care. 04/17: Remains on the vent, mentation is unchanged, MRI and Neurology recs noted. FWF increased due to persistent hypernatremia, X1 dose of kayexalate was also given for hyperkalemia, renal function is improvement. Continue to monitor renal function and electrolytes. Insulin was adjusted for hyperglycemia. Plan for possible family conference meeting today with the commodity lead. 04/18: With worsening hypernatremia this am despite Q4hrs FWF and X1 L of D5 per Nephro. Unclear etiology at this time. Will continue FWF for now and Nephro is also following. ABD US pending for elevated LTFs, will continue to trend LFTs. Still hyperglycemic, insulin adjusted. Patient's family opted for trach and PEG. General Surgery consulted. 04/19: Hypernatremia worsen this am, FWF held due to NPO status. Order placed for D5W X2bags, serial Na ordered. Will also check some urine lytes and serum osmo. CT ado/pelvis and Abd US noted, LFT downtrending. Will continue to trend LFTs. Plan for possible trach and PEG by general Surgery. 04/20: GILES overnight. Hypernatremia improved, continue D5W, FWF, and serial Na check. Possible trach and PEG sometimes next week by general Surgery. 04/21: Vomited this am, TF held, no gastric residual noted. Resume TF and IV Reglan added. Hypernatremia is unchanged continue FWF and serial Na per Nephro. Possible trach and PEG sometimes next week by general Surgery. 04/22: Antibiotics changed to meropenem given fevers, hypernatremia is improving, repeat COVID test ordered for tomorrow. 04/23: possible trach/peg in AM, NPO post MN, renal started on IVF given increase in Na. No acute events overnight Hospitalist Physical - Constitutional Vitals: Temp Pulse Resp BP Pulse Ox 97.5 F L 111 H 21 135/73 100 04/23/22 12:00 04/23/22 14:01 04/23/22 14:01 04/23/22 14:04/23/22 14:01 General appearance: Present: no acute distress, well-nourished, obese, other (Intubated ) - EENT ENT: dentition normal - Neck Neck: Absent: masses or JVD, cervical LAD - Respiratory Respiratory effort: normal Respiratory: bilateral: diminished - Cardiovascular Rhythm: regular Heart Sounds: Present: S1 & S2. Absent: systolic murmur, diastolic murmur - Extremities Extremities: no ischemia, pulses intact, pulses symmetrical, No edema, normal temperature, normal color Extremity abnormal: edema Peripheral Pulses: within normal limits - Abdominal General gastrointestinal: soft, non-tender, non-distended, normal bowel sounds - Integumentary Integumentary: Present: warm, dry - Psychiatric Psychiatric: other - Neurologic Neurologic: other (does not follow commands, questionable tracking noted, intact cough/gag reflex) - Allied Health Allied health notes reviewed: nursing, RT, social work HEART Score - HEART Score Age: > 65 Risk factors: 1-2 risk factors Troponin: Troponin T < 0.010 ng/mL (0.00-0.029) 04/09/22 12:52 Troponin: < normal limit - Critical Actions Critical Actions: 4-6 pts:12-16.6% risk of adverse cardiac event. Should be admitted Results - Labs CBC & Chem 7: 04/23/22 04:00 04/23/22 04:00 Labs: Laboratory Last Values WBC 17.0 K/mm3 (4.5-11.0) H 04/23/22 04:00 RBC 3.75 M/mm3 (3.65-5.03) 04/23/22 04:00 Hgb 10.7 gm/dl (10.1-14.3) 04/23/22 04:00 Hct 33.9 % (30.3-42.9) 04/23/22 04:00 MCV 91 fl (79-97) 04/23/22 04:00 MCH 29 pg (28-32) 04/23/22 04:00 MCHC 32 % (30-34) 04/23/22 04:00 RDW 16.2 % (13.2-15.2) H 04/23/22 04:00 Plt Count 116 K/mm3 (140-440) L 04/23/22 04:00 Lymph % (Auto) 5.7 % (13.4-35.0) L 04/12/22 00:01 [facility] % (Auto) 4.5 % (0.0-7.3) 04/12/22 00:01 Eos % (Auto) 0.0 % (0.0-4.3) 04/12/22 00:01 Baso % (Auto) 0.2 % (0.0-1.8) 04/12/22 00:01 Lymph # (Auto) 0.9 K/mm3 (1.2-5.4) L 04/12/22 00:01 [facility] # (Auto) 0.7 K/mm3 (0.0-0.8) 04/12/22 00:01 Eos # (Auto) 0.0 K/mm3 (0.0-0.4) 04/12/22 00:01 Baso # (Auto) 0.0 K/mm3 (0.0-0.1) 04/12/22 00:01 Add Manual Diff Complete 04/10/22 04:24 Total Counted 100 04/10/22 04:24 Seg Neutrophils % 89.6 % (40.0-70.0) H 04/12/22 00:01 Seg Neuts % (Manual) 94.0 % (40.0-70.0) H 04/10/22 04:24 Band Neutrophils % 0 % 04/10/22 04:24 Lymphocytes % (Manual) 3.0 % (13.4-35.0) L 04/10/22 04:24 Reactive Lymphs % (Man) 0 % 04/10/22 04:24 Monocytes % (Manual) 3.0 % (0.0-7.3) 04/10/22 04:24 Eosinophils % (Manual) 0 % (0.0-4.3) 04/10/22 04:24 Basophils % (Manual) 0 % (0.0-1.8) 04/10/22 04:24 Metamyelocytes % 0 % 04/10/22 04:24 Myelocytes % 0 % 04/10/22 04:24 Promyelocytes % 0 % 04/10/22 04:24 Blast Cells % 0 % 04/10/22 04:24 Nucleated RBC % Not Reportable 04/10/22 04:24 Seg Neutrophils # 14.6 K/mm3 (1.8-7.7) H 04/12/22 00:01 Seg Neutrophils # Man 15.4 K/mm3 (1.8-7.7) H 04/10/22 04:24 Band Neutrophils # 0.0 K/mm3 04/10/22 04:24 Lymphocytes # (Manual) 0.5 K/mm3 (1.2-5.4) L 04/10/22 04:24 Abs React Lymphs (Man) 0.0 K/mm3 04/10/22 04:24 Monocytes # (Manual) 0.5 K/mm3 (0.0-0.8) 04/10/22 04:24 Eosinophils # (Manual) 0.0 K/mm3 (0.0-0.4) 04/10/22 04:24 Basophils # (Manual) 0.0 K/mm3 (0.0-0.1) 04/10/22 04:24 Metamyelocytes # 0.0 K/mm3 04/10/22 04:24 Myelocytes # 0.0 K/mm3 04/10/22 04:24 Promyelocytes # 0.0 K/mm3 04/10/22 04:24 Blast Cells # 0.0 K/mm3 04/10/22 04:24 WBC Morphology Not Reportable 04/10/22 04:24 Hypersegmented Neuts Not Reportable 04/10/22 04:24 Hyposegmented Neuts Not Reportable 04/10/22 04:24 Hypogranular Neuts Not Reportable 04/10/22 04:24 Smudge Cells Not Reportable 04/10/22 04:24 Toxic Granulation Not Reportable 04/10/22 04:24 Toxic Vacuolation Not Reportable 04/10/22 04:24 Dohle Bodies Not Reportable 04/10/22 04:24 Pelger-Huet Anomaly Not Reportable 04/10/22 04:24 Aleja Rods Not Reportable 04/10/22 04:24 Platelet Estimate Consistent w auto 04/10/22 04:24 Clumped Platelets Not Reportable 04/10/22 04:24 Plt Clumps, EDTA Not Reportable 04/10/22 04:24 Large Platelets Not Reportable 04/10/22 04:24 Giant Platelets Rare 04/10/22 04:24 Platelet Satelliting Not Reportable 04/10/22 04:24 Plt Morphology Comment Not Reportable 04/10/22 04:24 RBC Morphology Normal 04/10/22 04:24 Dimorphic RBCs Not Reportable 04/10/22 04:24 Polychromasia Not Reportable 04/10/22 04:24 Hypochromasia Not Reportable 04/10/22 04:24 Poikilocytosis Not Reportable 04/10/22 04:24 Anisocytosis Not Reportable 04/10/22 04:24 Microcytosis Not Reportable 04/10/22 04:24 Macrocytosis Not Reportable 04/10/22 04:24 Spherocytes Not Reportable 04/10/22 04:24 Pappenheimer Bodies Not Reportable 04/10/22 04:24 Sickle Cells Not Reportable 04/10/22 04:24 Target Cells Not Reportable 04/10/22 04:24 Tear Drop Cells Not Reportable 04/10/22 04:24 Ovalocytes Not Reportable 04/10/22 04:24 Helmet Cells Not Reportable 04/10/22 04:24 [place] Bodies Not Reportable 04/10/22 04:24 [place] Rings Not Reportable 04/10/22 04:24 [place] Cells Not Reportable 04/10/22 04:24 Bite Cells Not Reportable 04/10/22 04:24 Crenated Cell Not Reportable 04/10/22 04:24 Elliptocytes Not Reportable 04/10/22 04:24 Acanthocytes (Spur) Not Reportable 04/10/22 04:24 Rouleaux Not Reportable 04/10/22 04:24 Hemoglobin C Crystals Not Reportable 04/10/22 04:24 Schistocytes Not Reportable 04/10/22 04:24 Malaria parasites Not Reportable 04/10/22 04:24 [place] Bodies Not Reportable 04/10/22 04:24 Hem Pathologist Commnt No 04/10/22 04:24 PT 14.5 Sec. (12.2-14.9) 04/09/22 12:52 INR 1.02 (0.87-1.13) 04/09/22 12:52 D-Dimer 3804.33 ng/mlDDU (0-234) H 04/17/22 05:12 ABG pH 7.379 pH Units (7.350-7.450) 04/20/22 04:17 ABG pCO2 55.3 mm Hg 04/20/22 04:17 ABG pO2 86.0 mm Hg (80.0-90.0) 04/20/22 04:17 ABG HCO3 31.9 mmol/L (20.0-26.0) H 04/20/22 04:17 ABG O2 Saturation 96.8 % (95.0-99.0) 04/20/22 04:17 ABG O2 Content 13.8 (0.0-44) 04/20/22 04:17 ABG Base Excess 5.7 mmol/L (-2.0-3.0) H 04/20/22 04:17 ABG Hemoglobin 10.3 gm/dl (12.0-16.0) L 04/20/22 04:17 ABG Carboxyhemoglobin 1.7 % (0.0-5.0) 04/20/22 04:17 ABG Methemoglobin 0.6 % (0.0-1.5) 04/20/22 04:17 VBG pH 7.303 (7.320-7.420) L 04/09/22 12:52 Oxyhemoglobin 94.6 % (95.0-99.0) L 04/20/22 04:17 FiO2 40 % 04/20/22 04:17 Sodium 155 mmol/L (137-145) H 04/23/22 04:00 Potassium 4.3 mmol/L (3.6-5.0) 04/23/22 04:00 Chloride 118.1 mmol/L (98-107) H 04/23/22 04:00 Carbon Dioxide 27 mmol/L (22-30) 04/23/22 04:00 Anion Gap 14 mmol/L 04/23/22 04:00 BUN 52 mg/dL (7-17) H 04/23/22 04:00 Creatinine 1.3 mg/dL (0.6-1.2) H 04/23/22 04:00 Estimated GFR 48 ml/min 04/23/22 04:00 BUN/Creatinine Ratio 40 % 04/23/22 04:00 Glucose 223 mg/dL (65-100) H 04/23/22 04:00 POC Glucose 210 mg/dL (70-105) H 04/22/22 23:33 Osmolality 361 Mosm/kg 04/19/22 12:10 Lactic Acid 2.10 mmol/L (0.7-2.0) H* 04/15/22 12:00 Calcium 8.4 mg/dL (8.4-10.2) 04/23/22 04:00 Phosphorus 3.60 mg/dL (2.5-4.5) 04/14/22 07:28 Magnesium 2.90 mg/dL (1.7-2.3) H 04/14/22 07:28 Ferritin 570.8 ng/mL (10.0-200.0) H 04/18/22 05:41 Total Bilirubin 0.60 mg/dL (0.1-1.2) 04/22/22 02:30 Direct Bilirubin 0.5 mg/dL (0-0.2) H 04/16/22 04:00 Indirect Bilirubin 0.4 mg/dL 04/16/22 04:00 AST 46 units/L (5-40) H 04/22/22 02:30 ALT 105 units/L (7-56) H 04/22/22 02:30 Alkaline Phosphatase 122 units/L (35-129) 04/22/22 02:30 Ammonia 20.0 umol/L (25-60) L 04/09/22 12:52 Lactate Dehydrogenase 1473 units/L (91-180) H 04/18/22 05:41 Troponin T < 0.010 ng/mL (0.00-0.029) 04/09/22 12:52 C-Reactive Protein 0.80 mg/dL (0.00-1.30) 04/18/22 05:41 NT-Pro-B Natriuret Pep 101.1 pg/mL (0-900) 04/09/22 13:45 Total Protein 4.9 g/dL (6.3-8.2) L 04/22/22 02:30 Albumin 3.2 g/dL (3.9-5) L 04/22/22 02:30 Albumin/Globulin Ratio 1.9 % 04/22/22 02:30 Procalcitonin 3.13 ng/mL (<0.15) 04/10/22 11:47 TSH 1.560 mlU/mL (0.270-4.200) 04/09/22 12:52 Free T4 1.33 ng/dL (0.76-1.46) 04/09/22 12:52 Urine Color Yellow (Yellow) 04/09/22 13:24 Urine Turbidity Clear (Clear) 04/09/22 13:24 Urine pH 5.0 (5.0-7.0) 04/09/22 13:24 Ur Specific [place] 1.011 (1.003-1.030) 04/09/22 13:24 Urine Protein 30 mg/dl mg/dL (Negative) 04/09/22 13:24 Urine Glucose (UA) Neg mg/dL (Negative) 04/09/22 13:24 Urine Ketones 20 mg/dL (Negative) 04/09/22 13:24 Urine Blood Neg (Negative) 04/09/22 13:24 Urine Nitrite Neg (Negative) 04/09/22 13:24 Urine Bilirubin Neg (Negative) 04/09/22 13:24 Urine Urobilinogen 4.0 mg/dL (<2.0) 04/09/22 13:24 Ur Leukocyte Esterase Neg (Negative) 04/09/22 13:24 Urine WBC (Auto) 2.0 /HPF (0.0-6.0) 04/09/22 13:24 Urine RBC (Auto) < 1.0 /HPF (0.0-6.0) 04/09/22 13:24 U Epithel Cells (Auto) < 1.0 /HPF (0-13.0) 04/09/22 13:24 Urine Mucus Few /HPF 04/09/22 13:24 Urine Eosinophils None seen (None Seen) 04/10/22 14:50 Urine Osmolality 415 Mosm/kg 04/19/22 22:32 Urine Total Volume 750 ml 04/11/22 11:23 Urine Creatinine 28.3 mg/dL (0.1-20.0) H 04/19/22 22:32 Ur Creatinine 24 Hour 1.2 (0.8-2.8) 04/11/22 11:23 Height (in) Not Reportable 04/11/22 11:23 Weight (lb) Not Reportable 04/11/22 11:23 Creatinine Clearance Not Reportable 04/11/22 11:23 Protein/Creatinin Ratio 0.77 04/10/22 14:50 Urine Sodium 89 mmol/L 04/19/22 22:32 Urine Total Protein 172 mg/dL (5-11.8) H 04/10/22 14:50 Random Vancomycin 11.9 ug/mL (0-40.0) 04/11/22 03:58 Urine Opiates Screen Presumptive negative 04/09/22 22:58 Urine Methadone Screen Presumptive negative 04/09/22 22:58 Ur Barbiturates Screen Presumptive negative 04/09/22 22:58 Ur Phencyclidine Scrn Presumptive negative 04/09/22 22:58 Ur Amphetamines Screen Presumptive negative 04/09/22 22:58 U Benzodiazepines Scrn Presumptive negative 04/09/22 22:58 Urine Cocaine Screen Presumptive negative 04/09/22 22:58 U Marijuana (THC) Screen Presumptive negative 04/09/22 22:58 Drugs of Abuse Note Disclamer 04/09/22 22:58 Coronavirus (PCR) Positive (Negative) A 04/09/22 13:02 Influenza A (RT-PCR) Negative (Negative) 04/09/22 14:15 Influenza B (RT-PCR) Negative (Negative) 04/09/22 14:15 Microbiology: Microbiology 04/23/22 11:05 Tracheal Aspirate Sputum Culture - Preliminary 04/23/22 11:22 Peripheral/Venous Blood Culture - Preliminary Culture in Progress 04/23/22 10:05 Peripheral/Venous Blood Culture - Preliminary Culture in Progress 04/17/22 18:14 Peripheral/Venous Blood Culture - Final NO GROWTH AFTER 5 DAYS 04/17/22 18:14 Peripheral/Venous Blood Culture - Final NO GROWTH AFTER 5 DAYS [place]/IV: Voiding Method Indwelling Catheter Active Medications - Current Medications Current Medications: Generic Name Dose Route Start Last Admin Trade Name Freq PRN Reason Stop Dose Admin Acetaminophen 650 mg 04/09/22 18:11 04/22/22 20:06 Acetaminophen 325 Mg Tab PO 650 mg Q4H PRN Administration Pain MILD(1-3)/Fever >100.5/CARCAMO Dextrose 0 ml 04/10/22 00:40 Dextrose 50% In Water (25gm) 50 Ml Syringe IV Q30MIN PRN Hypoglycemia Protocol Famotidine 20 mg 04/22/22 10:00 04/23/22 09:53 Famotidine 20 Mg Tab FEEDTUBE 20 mg BID JO ANN Administration Fentanyl 50 mcg 04/15/22 09:25 04/22/22 20:17 Fentanyl 100 Mcg/2 Ml Inj IV 50 mcg Q10MIN PRN Administration ANALGESIA Heparin Sodium (Porcine) 5,000 unit 04/17/22 10:00 04/23/22 09:53 Heparin 5,000 Unit/1 Ml Vial SUB-Q 5,000 unit Q12HR JO ANN Administration Fentanyl Citrate 2,000 mcg in 100 mls @ 4.155 mls/hr 04/15/22 10:00 04/23/22 12:29 Fentanyl Drip Premix IV 1.06 mcg/kg/hr TITR JO ANN 4.4 mls/hr Administration Protocol 1 MCG/KG/HR Meropenem/Sodium Chloride 1 gram in 100 mls @ 100 mls/hr 04/22/22 12:00 04/23/22 12:31 Merrem/Ns 1 Gram/100 Ml IV 100 mls/hr Q8H J OANN Administration Protocol Sodium Chloride 1,000 mls @ 75 mls/hr 04/23/22 13:00 04/23/22 13:26 Nacl 0.45% 1000 Ml IV 04/24/22 02:19 75 mls/hr DIRECT JO ANN Administration Insulin Glargine 50 units 04/23/22 22:00 Insulin Glargine 100 Units/Ml SUB-Q QHS [facility] Insulin Human Lispro 0 unit 04/18/22 12:00 04/23/22 12:30 Insulin Lispro 100 Unit/Ml SUB-Q 4 unit Q6HR JO ANN Administration Protocol Metoprolol Tartrate 5 mg 04/22/22 17:01 04/22/22 17:19 Metoprolol Tartrate 5 Mg/5 Ml Inj IV 5 mg Q6H PRN Administration HR >/= 120 Ondansetron HCl 4 mg 04/09/22 18:11 Ondansetron 4 Mg/2 Ml Inj IV Q8H PRN Nausea And Vomiting Senna/Docusate Sodium 2 tab 04/15/22 14:00 04/23/22 09:53 Sennosides/Docusate Sodium 8.6/50 Mg Tab FEEDTUBE 2 tab BID JO ANN Administration Sodium Chloride 10 ml 04/09/22 22:00 04/23/22 09:54 Sodium Chloride 0.9% 10 Ml Flush Syringe IV 10 ml BID JO ANN Administration Sodium Chloride 10 ml 04/09/22 18:11 Sodium Chloride 0.9% 10 Ml Flush Syringe IV PRN PRN LINE FLUSH Nutrition/Malnutrition Assess - Dietary Evaluation Nutrition/Malnutrition Findings: Nutrition Notes Start: 04/12/22 10:07 Freq: Status: Active Protocol: Document 04/22/22 17:08 IZA (Rec: 04/22/22 17:45 IZA [id number]) Nutrition Notes Initial or Follow up Reassessment Current Diagnosis Acute Kidney Injury,Diabetes, Sepsis,Respiratory Failure Other Pertinent Diagnosis COVID-10, Pneumonia, Hypotension, s/p DKA, Metabolic Acidosis. Current Diet TF-Glucerna 1.2 Sean @ 55 ml/hr (since D 04/18). Labs/Tests 04/22: Na 150, Cl 114.1, BUN 43, Glu 186. Pertinent Medications 04/22: Lantus 40 U, others nutritionally unremarkable. Height 5 ft 7 in Weight 88.7 kg [place] Body Weight (kg) 61.36 BMI 30.6 Intake Prior to Admission Poor Weight change and time frame Pt states being unsure if loss body weight [employer]. 5.6 Kg body weight gain in 1 week reported. Weight Status Obese Subjective/Other Information RD consulkt for routine F/U on TF tolerance and continuation . TF continues as prescribed. RN notes on 04/21/22 09:11: 0730-Patient noted to have vomited undigested tube feeds. Tube feeds held at this time. 0915-Dr. Matthews and this nurse discussed patient status. Ok to restart tube feeds after 4 hours if residuals <50 cc. Patient to still receive 400 cc water flushes q4 hours due to hypernatremia. Patient ok to receive medications through Left Nare dobhoff. Pt continues on Mechanical ventilation, O2 saturation @ 98%, according to Physical Assessment History notes. Pt has missing teeth, according to Physical Assessment History notes. Pt presents an unspecified Area of Concern on skin, according to Physical Assessment History notes. Plans for Trach/PEG tube placement later this week, according to Progress notes. Percent of energy/protein needs met: Prescribed TF-Glucerna 1.2 Sean @ 55 ml/hr provides for energy/protein needs (1,584 Kcal/79 g) during LOS, 94% Kcal; 88% AA. Burn Absent Trauma Absent GI Symptoms None Difficulty In Swallowing Food Allergy No Skin Integrity/Comment Unspecified Area of Concern. Current % PO Other Minimum of two criteria No #1 Nutrition Diagnosis Inadequate oral intake Diagnosis Progress(for reassessment Continues documentation) Is patient on ventilator? Yes Is Patient Ambulatory and/or Out of Bed No REE-([facility]-confined to bed) [phone] Calculation Used for Recommendations [facility] Additional Notes Protein: 1.2-2 g/Kg AdjBW; 90- 140 g/day. Fluids: 1 ml/Kcal, or as per MD. Nutrition Intervention Nutrition Support: Continue TF-Glucerna 1.2 Sean @ 55 ml/hr. Flush: 100 ml water Q 4 hr, or as per MD. Kcal 1,584 Protein (gm) 79 Carbohydrates (gm) 151 Fat (gm) 79 Fluid (mL) 1,063 Fiber (gm) 21 % RDI: 94% Kcal; 88% AA. Goal #1 Provide at least 75% of energy /protein needs through Enteral Feeding during LOS. Goal #2 Maintain body weight within +/ -3% of admission body weight during LOS. Follow-Up By: 04/29/22 Additional Comments Continue monitoring Mechanical Ventilation status, renal function, TF tolerance and BM. <SHAKEEL HARRIS - Last Filed: 04/25/22 07:44> Assessment and Plan Assessment and plan: I saw and evaluated the patient. Discussed with the nurse practitioner and agree with their findings and plan as documented in this note. Hospitalist Physical - Constitutional Vitals: Temp Pulse Resp BP Pulse Ox 97.8 F 109 H 22 141/69 100 04/25/22 04:00 04/25/22 06:00 04/25/22 06:00 04/25/22 06:00 04/25/22 06:00 HEART Score - HEART Score Troponin: Troponin T < 0.010 ng/mL (0.00-0.029) 04/09/22 12:52 Results - Labs CBC & Chem 7: 04/25/22 04:00 04/25/22 04:00 Labs: Laboratory Last Values WBC 15.8 K/mm3 (4.5-11.0) H 04/25/22 04:00 RBC 3.08 M/mm3 (3.65-5.03) L 04/25/22 04:00 Hgb 8.9 gm/dl (10.1-14.3) L 04/25/22 04:00 Hct 27.6 % (30.3-42.9) L 04/25/22 04:00 MCV 89 fl (79-97) 04/25/22 04:00 MCH 29 pg (28-32) 04/25/22 04:00 MCHC 32 % (30-34) 04/25/22 04:00 RDW 16.7 % (13.2-15.2) H 04/25/22 04:00 Plt Count 135 K/mm3 (140-440) L 04/25/22 04:00 Lymph % (Auto) 5.7 % (13.4-35.0) L 04/12/22 00:01 [facility] % (Auto) 4.5 % (0.0-7.3) 04/12/22 00:01 Eos % (Auto) 0.0 % (0.0-4.3) 04/12/22 00:01 Baso % (Auto) 0.2 % (0.0-1.8) 04/12/22 00:01 Lymph # (Auto) 0.9 K/mm3 (1.2-5.4) L 04/12/22 00:01 [facility] # (Auto) 0.7 K/mm3 (0.0-0.8) 04/12/22 00:01 Eos # (Auto) 0.0 K/mm3 (0.0-0.4) 04/12/22 00:01 Baso # (Auto) 0.0 K/mm3 (0.0-0.1) 04/12/22 00:01 Add Manual Diff Complete 04/10/22 04:24 Total Counted 100 04/10/22 04:24 Seg Neutrophils % 89.6 % (40.0-70.0) H 04/12/22 00:01 Seg Neuts % (Manual) 94.0 % (40.0-70.0) H 04/10/22 04:24 Band Neutrophils % 0 % 04/10/22 04:24 Lymphocytes % (Manual) 3.0 % (13.4-35.0) L 04/10/22 04:24 Reactive Lymphs % (Man) 0 % 04/10/22 04:24 Monocytes % (Manual) 3.0 % (0.0-7.3) 04/10/22 04:24 Eosinophils % (Manual) 0 % (0.0-4.3) 04/10/22 04:24 Basophils % (Manual) 0 % (0.0-1.8) 04/10/22 04:24 Metamyelocytes % 0 % 04/10/22 04:24 Myelocytes % 0 % 04/10/22 04:24 Promyelocytes % 0 % 04/10/22 04:24 Blast Cells % 0 % 04/10/22 04:24 Nucleated RBC % Not Reportable 04/10/22 04:24 Seg Neutrophils # 14.6 K/mm3 (1.8-7.7) H 04/12/22 00:01 Seg Neutrophils # Man 15.4 K/mm3 (1.8-7.7) H 04/10/22 04:24 Band Neutrophils # 0.0 K/mm3 04/10/22 04:24 Lymphocytes # (Manual) 0.5 K/mm3 (1.2-5.4) L 04/10/22 04:24 Abs React Lymphs (Man) 0.0 K/mm3 04/10/22 04:24 Monocytes # (Manual) 0.5 K/mm3 (0.0-0.8) 04/10/22 04:24 Eosinophils # (Manual) 0.0 K/mm3 (0.0-0.4) 04/10/22 04:24 Basophils # (Manual) 0.0 K/mm3 (0.0-0.1) 04/10/22 04:24 Metamyelocytes # 0.0 K/mm3 04/10/22 04:24 Myelocytes # 0.0 K/mm3 04/10/22 04:24 Promyelocytes # 0.0 K/mm3 04/10/22 04:24 Blast Cells # 0.0 K/mm3 04/10/22 04:24 WBC Morphology Not Reportable 04/10/22 04:24 Hypersegmented Neuts Not Reportable 04/10/22 04:24 Hyposegmented Neuts Not Reportable 04/10/22 04:24 Hypogranular Neuts Not Reportable 04/10/22 04:24 Smudge Cells Not Reportable 04/10/22 04:24 Toxic Granulation Not Reportable 04/10/22 04:24 Toxic Vacuolation Not Reportable 04/10/22 04:24 Dohle Bodies Not Reportable 04/10/22 04:24 Pelger-Huet Anomaly Not Reportable 04/10/22 04:24 Aleja Rods Not Reportable 04/10/22 04:24 Platelet Estimate Consistent w auto 04/10/22 04:24 Clumped Platelets Not Reportable 04/10/22 04:24 Plt Clumps, EDTA Not Reportable 04/10/22 04:24 Large Platelets Not Reportable 04/10/22 04:24 Giant Platelets Rare 04/10/22 04:24 Platelet Satelliting Not Reportable 04/10/22 04:24 Plt Morphology Comment Not Reportable 04/10/22 04:24 RBC Morphology Normal 04/10/22 04:24 Dimorphic RBCs Not Reportable 04/10/22 04:24 Polychromasia Not Reportable 04/10/22 04:24 Hypochromasia Not Reportable 04/10/22 04:24 Poikilocytosis Not Reportable 04/10/22 04:24 Anisocytosis Not Reportable 04/10/22 04:24 Microcytosis Not Reportable 04/10/22 04:24 Macrocytosis Not Reportable 04/10/22 04:24 Spherocytes Not Reportable 04/10/22 04:24 Pappenheimer Bodies Not Reportable 04/10/22 04:24 Sickle Cells Not Reportable 04/10/22 04:24 Target Cells Not Reportable 04/10/22 04:24 Tear Drop Cells Not Reportable 04/10/22 04:24 Ovalocytes Not Reportable 04/10/22 04:24 Helmet Cells Not Reportable 04/10/22 04:24 [place] Bodies Not Reportable 04/10/22 04:24 [place] Rings Not Reportable 04/10/22 04:24 [place] Cells Not Reportable 04/10/22 04:24 Bite Cells Not Reportable 04/10/22 04:24 Crenated Cell Not Reportable 04/10/22 04:24 Elliptocytes Not Reportable 04/10/22 04:24 Acanthocytes (Spur) Not Reportable 04/10/22 04:24 Rouleaux Not Reportable 04/10/22 04:24 Hemoglobin C Crystals Not Reportable 04/10/22 04:24 Schistocytes Not Reportable 04/10/22 04:24 Malaria parasites Not Reportable 04/10/22 04:24 [place] Bodies Not Reportable 04/10/22 04:24 Hem Pathologist Commnt No 04/10/22 04:24 PT 13.5 Sec. (12.2-14.9) 04/24/22 03:46 INR 0.93 (0.87-1.13) 04/24/22 03:46 APTT 25.9 Sec. (24.2-36.6) 04/24/22 03:46 D-Dimer 3804.33 ng/mlDDU (0-234) H 04/17/22 05:12 ABG pH 7.378 pH Units (7.350-7.450) 04/24/22 04:41 ABG pCO2 47.8 mm Hg 04/24/22 04:41 ABG pO2 92.6 mm Hg (80.0-90.0) H 04/24/22 04:41 ABG HCO3 27.5 mmol/L (20.0-26.0) H 04/24/22 04:41 ABG O2 Saturation 97.1 % (95.0-99.0) 04/24/22 04:41 ABG O2 Content 13.0 (0.0-44) 04/24/22 04:41 ABG Base Excess 2.0 mmol/L (-2.0-3.0) 04/24/22 04:41 ABG Hemoglobin 9.6 gm/dl (12.0-16.0) L 04/24/22 04:41 ABG Carboxyhemoglobin 1.5 % (0.0-5.0) 04/24/22 04:41 ABG Methemoglobin 0.6 % (0.0-1.5) 04/24/22 04:41 VBG pH 7.303 (7.320-7.420) L 04/09/22 12:52 Oxyhemoglobin 95.1 % (95.0-99.0) 04/24/22 04:41 FiO2 40 % 04/24/22 04:41 Sodium 149 mmol/L (137-145) H 04/25/22 04:00 Potassium 4.2 mmol/L (3.6-5.0) 04/25/22 04:00 Chloride 114.4 mmol/L (98-107) H 04/25/22 04:00 Carbon Dioxide 27 mmol/L (22-30) 04/25/22 04:00 Anion Gap 12 mmol/L 04/25/22 04:00 BUN 41 mg/dL (7-17) H 04/25/22 04:00 Creatinine 1.1 mg/dL (0.6-1.2) 04/25/22 04:00 Estimated GFR 58 ml/min 04/25/22 04:00 BUN/Creatinine Ratio 37 % 04/25/22 04:00 Glucose 94 mg/dL (65-100) 04/25/22 04:00 POC Glucose 210 mg/dL (70-105) H 04/22/22 23:33 Osmolality 361 Mosm/kg 04/19/22 12:10 Lactic Acid 2.10 mmol/L (0.7-2.0) H* 04/15/22 12:00 Calcium 8.5 mg/dL (8.4-10.2) 04/25/22 04:00 Phosphorus 3.60 mg/dL (2.5-4.5) 04/14/22 07:28 Magnesium 2.90 mg/dL (1.7-2.3) H 04/14/22 07:28 Ferritin 570.8 ng/mL (10.0-200.0) H 04/18/22 05:41 Total Bilirubin 0.60 mg/dL (0.1-1.2) 04/22/22 02:30 Direct Bilirubin 0.5 mg/dL (0-0.2) H 04/16/22 04:00 Indirect Bilirubin 0.4 mg/dL 04/16/22 04:00 AST 46 units/L (5-40) H 04/22/22 02:30 ALT 105 units/L (7-56) H 04/22/22 02:30 Alkaline Phosphatase 122 units/L (35-129) 04/22/22 02:30 Ammonia 20.0 umol/L (25-60) L 04/09/22 12:52 Lactate Dehydrogenase 1473 units/L (91-180) H 04/18/22 05:41 Troponin T < 0.010 ng/mL (0.00-0.029) 04/09/22 12:52 C-Reactive Protein 0.80 mg/dL (0.00-1.30) 04/18/22 05:41 NT-Pro-B Natriuret Pep 101.1 pg/mL (0-900) 04/09/22 13:45 Total Protein 4.9 g/dL (6.3-8.2) L 04/22/22 02:30 Albumin 3.2 g/dL (3.9-5) L 04/22/22 02:30 Albumin/Globulin Ratio 1.9 % 04/22/22 02:30 Procalcitonin 3.13 ng/mL (<0.15) 04/10/22 11:47 TSH 1.560 mlU/mL (0.270-4.200) 04/09/22 12:52 Free T4 1.33 ng/dL (0.76-1.46) 04/09/22 12:52 Urine Color Yellow (Yellow) 04/09/22 13:24 Urine Turbidity Clear (Clear) 04/09/22 13:24 Urine pH 5.0 (5.0-7.0) 04/09/22 13:24 Ur Specific [place] 1.011 (1.003-1.030) 04/09/22 13:24 Urine Protein 30 mg/dl mg/dL (Negative) 04/09/22 13:24 Urine Glucose (UA) Neg mg/dL (Negative) 04/09/22 13:24 Urine Ketones 20 mg/dL (Negative) 04/09/22 13:24 Urine Blood Neg (Negative) 04/09/22 13:24 Urine Nitrite Neg (Negative) 04/09/22 13:24 Urine Bilirubin Neg (Negative) 04/09/22 13:24 Urine Urobilinogen 4.0 mg/dL (<2.0) 04/09/22 13:24 Ur Leukocyte Esterase Neg (Negative) 04/09/22 13:24 Urine WBC (Auto) 2.0 /HPF (0.0-6.0) 04/09/22 13:24 Urine RBC (Auto) < 1.0 /HPF (0.0-6.0) 04/09/22 13:24 U Epithel Cells (Auto) < 1.0 /HPF (0-13.0) 04/09/22 13:24 Urine Mucus Few /HPF 04/09/22 13:24 Urine Eosinophils None seen (None Seen) 04/10/22 14:50 Urine Osmolality 415 Mosm/kg 04/19/22 22:32 Urine Total Volume 750 ml 04/11/22 11:23 Urine Creatinine 28.3 mg/dL (0.1-20.0) H 04/19/22 22:32 Ur Creatinine 24 Hour 1.2 (0.8-2.8) 04/11/22 11:23 Height (in) Not Reportable 04/11/22 11:23 Weight (lb) Not Reportable 04/11/22 11:23 Creatinine Clearance Not Reportable 04/11/22 11:23 Protein/Creatinin Ratio 0.77 04/10/22 14:50 Urine Sodium 89 mmol/L 04/19/22 22:32 Urine Total Protein 172 mg/dL (5-11.8) H 04/10/22 14:50 Random Vancomycin 11.9 ug/mL (0-40.0) 04/11/22 03:58 Urine Opiates Screen Presumptive negative 04/09/22 22:58 Urine Methadone Screen Presumptive negative 04/09/22 22:58 Ur Barbiturates Screen Presumptive negative 04/09/22 22:58 Ur Phencyclidine Scrn Presumptive negative 04/09/22 22:58 Ur Amphetamines Screen Presumptive negative 04/09/22 22:58 U Benzodiazepines Scrn Presumptive negative 04/09/22 22:58 Urine Cocaine Screen Presumptive negative 04/09/22 22:58 U Marijuana (THC) Screen Presumptive negative 04/09/22 22:58 Drugs of Abuse Note Disclamer 04/09/22 22:58 Coronavirus (PCR) Positive (Negative) A 04/23/22 07:00 Influenza A (RT-PCR) Negative (Negative) 04/09/22 14:15 Influenza B (RT-PCR) Negative (Negative) 04/09/22 14:15 Microbiology: Microbiology 04/23/22 11:05 Tracheal Aspirate Sputum Culture - Preliminary 04/23/22 11:22 Peripheral/Venous Blood Culture - Preliminary NO GROWTH AFTER 24 HOURS 04/23/22 10:05 Peripheral/Venous Blood Culture - Preliminary NO GROWTH AFTER 24 HOURS [place]/IV: Voiding Method External Female Catheter Active Medications - Current Medications Current Medications: Generic Name Dose Route Start Last Admin Trade Name Freq PRN Reason Stop Dose Admin Acetaminophen 650 mg 04/09/22 18:11 04/22/22 20:06 Acetaminophen 325 Mg Tab PO 650 mg Q4H PRN Administration Pain MILD(1-3)/Fever >100.5/CARCAMO Dextrose 0 ml 04/10/22 00:40 Dextrose 50% In Water (25gm) 50 Ml Syringe IV Q30MIN PRN Hypoglycemia Protocol Famotidine 20 mg 04/22/22 10:00 04/24/22 21:51 Famotidine 20 Mg Tab FEEDTUBE 20 mg BID JO ANN Administration Fentanyl 50 mcg 04/24/22 13:38 Fentanyl 100 Mcg/2 Ml Inj IV Q2HR PRN Pain , Severe (7-10) Heparin Sodium (Porcine) 5,000 unit 04/17/22 10:00 04/24/22 21:51 Heparin 5,000 Unit/1 Ml Vial SUB-Q 5,000 unit Q12HR JO ANN Administration Fentanyl Citrate 2,000 mcg in 100 mls @ 4.155 mls/hr 04/15/22 10:00 04/24/22 00:06 Fentanyl Drip Premix IV 1.06 mcg/kg/hr TITR JO ANN 4.4 mls/hr Titration Protocol 1 MCG/KG/HR Meropenem/Sodium Chloride 1 gram in 100 mls @ 100 mls/hr 04/22/22 12:00 04/25/22 05:30 Merrem/Ns 1 Gram/100 Ml IV 100 mls/hr Q8H JO ANN Administration Protocol Insulin Glargine 50 units 04/23/22 22:00 04/24/22 21:50 Insulin Glargine 100 Units/Ml SUB-Q 50 units QHS JO ANN Administration Insulin Human Lispro 0 unit 04/18/22 12:00 04/25/22 06:19 Insulin Lispro 100 Unit/Ml SUB-Q Not Given Q6HR [facility] Protocol Lactulose 20 gm 04/24/22 20:00 04/25/22 02:24 Lactulose 20 Gm/30 Ml Oral Liqd PO Not Given Q6H [facility] Metoprolol Tartrate 5 mg 04/22/22 17:01 04/22/22 17:19 Metoprolol Tartrate 5 Mg/5 Ml Inj IV 5 mg Q6H PRN Administration HR >/= 120 Ondansetron HCl 4 mg 04/09/22 18:11 Ondansetron 4 Mg/2 Ml Inj IV Q8H PRN Nausea And Vomiting Senna/Docusate Sodium 2 tab 04/15/22 14:00 04/24/22 21:51 Sennosides/Docusate Sodium 8.6/50 Mg Tab FEEDTUBE 2 tab BID JO ANN Administration Sodium Chloride 10 ml 04/09/22 22:00 04/24/22 21:52 Sodium Chloride 0.9% 10 Ml Flush Syringe IV 10 ml BID JO ANN Administration Sodium Chloride 10 ml 04/09/22 18:11 Sodium Chloride 0.9% 10 Ml Flush Syringe IV PRN PRN LINE FLUSH Nutrition/Malnutrition Assess - Dietary Evaluation Nutrition/Malnutrition Findings: Nutrition Notes Start: 04/12/22 10:07 Freq: Status: Active Protocol: Document 04/22/22 17:08 IZA (Rec: 04/22/22 17:45 IZA [id number]) Nutrition Notes Initial or Follow up Reassessment Current Diagnosis Acute Kidney Injury,Diabetes, Sepsis,Respiratory Failure Other Pertinent Diagnosis COVID-10, Pneumonia, Hypotension, s/p DKA, Metabolic Acidosis. Current Diet TF-Glucerna 1.2 Sean @ 55 ml/hr (since D 04/18). Labs/Tests 04/22: Na 150, Cl 114.1, BUN 43, Glu 186. Pertinent Medications 04/22: Lantus 40 U, others nutritionally unremarkable. Height 5 ft 7 in Weight 88.7 kg [place] Body Weight (kg) 61.36 BMI 30.6 Intake Prior to Admission Poor Weight change and time frame Pt states being unsure if loss body weight [employer]. 5.6 Kg body weight gain in 1 week reported. Weight Status Obese Subjective/Other Information RD consulkt for routine F/U on TF tolerance and continuation . TF continues as prescribed. RN notes on 04/21/22 09:11: 0730-Patient noted to have vomited undigested tube feeds. Tube feeds held at this time. 0915-Dr. Matthews and this nurse discussed patient status. Ok to restart tube feeds after 4 hours if residuals <50 cc. Patient to still receive 400 cc water flushes q4 hours due to hypernatremia. Patient ok to receive medications through Left Nare dobhoff. Pt continues on Mechanical ventilation, O2 saturation @ 98%, according to Physical Assessment History notes. Pt has missing teeth, according to Physical Assessment History notes. Pt presents an unspecified Area of Concern on skin, according to Physical Assessment History notes. Plans for Trach/PEG tube placement later this week, according to Progress notes. Percent of energy/protein needs met: Prescribed TF-Glucerna 1.2 Sean @ 55 ml/hr provides for energy/protein needs (1,584 Kcal/79 g) during LOS, 94% Kcal; 88% AA. Burn Absent Trauma Absent GI Symptoms None Difficulty In Swallowing Food Allergy No Skin Integrity/Comment Unspecified Area of Concern. Current % PO Other Minimum of two criteria No #1 Nutrition Diagnosis Inadequate oral intake Diagnosis Progress(for reassessment Continues documentation) Is patient on ventilator? Yes Is Patient Ambulatory and/or Out of Bed No REE-([facility]-confined to bed) 3772.[address] Calculation Used [address] Recommend[address] [facility] Additional Notes Protein: 1.2-2 g/Kg AdjBW; 90- 140 g/day. Fluids: 1 ml/Kcal, or as per MD. Nutrition Intervention Nutrition Support: Continue TF-Glucerna 1.2 Sean @ 55 ml/hr. Flush: 100 ml water Q 4 hr, or as per MD. Kcal 1,584 Protein (gm) 79 Carbohydrates (gm) 151 Fat (gm) 79 Fluid (mL) 1,063 Fiber (gm) 21 % RDI: 94% Kcal; 88% AA. Goal #1 Provide at least 75% of energy /protein needs through Enteral Feeding during LOS. Goal #2 Maintain body weight within +/ -3% of admission body weight during LOS. Follow-Up By: 04/29/22 Additional Comments Continue monitoring Mechanical Ventilation status, renal function, TF tolerance and BM.
--- NOTE | 2022-04-23 17:35 | Progress Note ---
Assessment and Plan Cultures: SARS CoV2 PCR: Positive Influenza PCR: Negative 04/09/2022 blood culture: no growth. 04/09/2022 resp culture: Usual respiratory catherine A/P: 77-year-old female with diabetes, history of ovarian cancer believed to be in remission was admitted with altered mental status: #Septic shock, probably secondary to severe COVID-19. ABG showed severe acidosis. UA without pyuria. Chest x-ray showed bilateral airspace opacities. Off pressors now. #Bilateral pneumonia: Secondary to COVID-19. Unvaccinated. Actemra administered 04/10/2022. CRP 11.3, procalcitonin 3.3, ferritin 1218, LDH 482. #Acute hypoxic respiratory failure: Requiring mechanical ventilation. #ASHLEY: Renally adjust antibiotics. #Transaminitis #Acute encephalopathy: Neurology following. Recs: -IV/PO Dexamethasone x 10 days -Due to renal failure, not a candidate for Remdesivir -S/p Actemra 04/10/2022 -prophylactic anticoagulation based on d-dimer per hospital protocol -New fevers despite cefepime, will change to meropenem. -Check new blood and respiratory cultures -trend ferritin, d-dimer, CRP every 2-3 days -Guarded prognosis Laura Sahu MD [facility] O: [phone] F: [phone] Subjective Date of service: 04/23/22 Principal diagnosis: encephalopathy Interval history: Afebrile overnight, white count increasing now 17. Cultures remain negative. Objective - Exam Narrative Exam: Physical Exam: Constitutional: sedated, intubated, on the vent Head, Ears, Nose: Normocephalic, atraumatic. External ears, nose normal Eyes: Conjunctivae/corneas clear. No icterus. No ptosis. Neck: intubated Oral: intubated Cardiovascular: S1, S2 + Respiratory: AE fair bilaterally and equal GI: Soft, bowel sounds + Musculoskeletal: No pedal edema, no cyanosis. Skin: No rash or abscess Hem/Lymphatic: No palpable cervical or supraclavicular nodes. Psych: no agitation Neurological: sedated, intubated, on the vent, exam limited - Constitutional Vitals: Vital Signs Temp Pulse Resp BP Pulse Ox 97.9 F 112 H 19 157/78 100 04/23/22 16:00 04/23/22 17:01 04/23/22 17:01 04/23/22 17:01 04/23/22 17:01 Temperature -Last 24 Hours Temperature 97.9 F Temperature 97.5 F Temperature 98.7 F Temperature 98.9 F Temperature 99.9 F Temperature 100 F Temperature 100.3 F Temperature 100.6 F - Labs CBC & Chem 7: 04/23/22 04:00 04/23/22 04:00 Labs: Abnormal lab results 04/22/22 04/22/22 04/23/22 Range/Units 20:49 23:33 04:00 WBC 17.0 H (4.5-11.0) K/mm3 RDW 16.2 H (13.2-15.2) % Plt Count 116 L (140-440) K/mm3 Sodium (137-145) mmol/L Chloride (98-107) mmol/L BUN (7-17) mg/dL Creatinine (0.6-1.2) mg/dL Glucose (65-100) mg/dL POC Glucose 208 H 210 H (70-105) mg/dL Coronavirus (PCR) (Negative) 04/23/22 04/23/22 Range/Units 04:00 07:00 WBC (4.5-11.0) K/mm3 RDW (13.2-15.2) % Plt Count (140-440) K/mm3 Sodium 155 H (137-145) mmol/L Chloride 118.1 H (98-107) mmol/L BUN 52 H (7-17) mg/dL Creatinine 1.3 H (0.6-1.2) mg/dL Glucose 223 H (65-100) mg/dL POC Glucose (70-105) mg/dL Coronavirus (PCR) Positive A (Negative)
[2022-04-23] MEDS: INSULIN GLARGINE 100 UNITS/ML SUB-Q SCH (21:19)
[2022-04-23] MEDS ORDERED: DEXTROSE 5% IN WATER 1,000 ML IV SCH (23:45)
[2022-04-24] MEDS: FREE WATER PO SCH ×6 (01:00→21:50)
[2022-04-24] MEDS: MEROPENEM/NS 1 GRAM/100 ML 1 GRAM/100 ML BAG IV SCH ×3 (03:04→19:55)
[2022-04-24 04:29] LABS: Hematocrit 30.2 % (30.3-42.9); Hemoglobin 9.6 gm/dl (10.1-14.3); Mean Corpuscular HGB Conc 32 % (30-34); Mean Corpuscular Volume 90 fl (79-97); Platelet Count 121 K/mm3 (140-440); Red Blood Count 3.34 M/mm3 (3.65-5.03); Red Cell Distribution Width 16.8 % (13.2-15.2)
[2022-04-24 04:39] LABS: INR 0.93 (0.87-1.13)
[2022-04-24 04:40] LABS: Partial Thromboplastin Time 25.9 Sec. (24.2-36.6)
[2022-04-24 04:44] LABS: Calcium 8.4 mg/dL (8.4-10.2)
[2022-04-24 05:00] LABS: ABG HCO3 27.5 mmol/L (20.0-26.0); ABG Methemoglobin 0.6 % (0.0-1.5); ABG Oxygen Saturation 97.1 % (95.0-99.0); ABG PCO2 47.8 mm Hg; ABG PH 7.378 pH Units (7.350-7.450); ABG PO2 92.6 mm Hg (80.0-90.0)
[2022-04-24] MEDS: INSULIN LISPRO 100 UNIT/ML SUB-Q SCH ×3 (05:48→18:11)
--- NOTE | 2022-04-24 07:49 | Progress Note ---
Assessment and Plan 77 y/o female with multisystem organ failure, COVID positive 04/24/22: COVID positive, will ask surgery what anesthesia wants to do. Continue free water and tube feeds. Follow up any new renal recs. PSV as tolerated and supportive care. STill no improvement in mental state. 04/23/22: COVID test today. PSV as tolerated. Follow renal recs in regards to increase in Na and Cr. Guarded to poor prognosis. 04/22/22: WIll need repeat COVID test tomorrow. Attempt PSV as tolerated. Na remains elevated, will defer to renal. Guarded to poor prognosis. 04/19/22: Down to 6 of PEEP and 40%. Not breathing over the vent. Will get ABG tomorrow. Na continues to increase. Sending serum and urine osms. Follow up any new renal recs for today. Plan for trach and peg later this afternoon. Prognosis remains guarded to poor. 04/18/22: Peep and FiO2 weaned this am. No blood gas this am but sat is 100. Will order ABG for tomorrow morning. Will order repeat CMP and ask that phlebotomy do a fresh stick on patient and not draw from picc line. Once trached and pegged will work on placement. Reviewed meds but none that would ca use persistent to worsening hypernatremia. Guarded to poor prognosis. 04/17/22: Continue PEEP at 10. Down to 45%. Do not see a blood gas from this morning. Neurology saw this am. MRI negative. Family meeting today at 1330. Guarded to poor prognosis. 04/16/22: Continue PEEP at 10 until FiO2 is at 40-45% and sats >92%. Then can start to wean. Just on Fent now, continue bowel regimen. Tolerating tube feeds. Discussed with CRYSTAL MOUNTER on rounds, neurology was seeing but no further notes, no objection to consulting neuro who is here this week, whoever that is. Patient may need MRI as she has had two negative head CT's and still no real explanation for acute change in mental state. Plan to meet/talk with son tomorrow about next steps and goals of care. Prognosis remains guarded to now poor given no improvement in mental state. 04/15/22: Hold on any further fluids or lasix. If hypotensive, will add pressors. Continue PEEP at 10. Same acceptable parameters as below for sats and PaO2 as pH. Continue pain control and sedation. Added bowel regimen. Prognosis is still guarded to poor. 04/14/22: Hold on any further lasix. Please do not give any fluids, will see if she re equilbrates on her own. Increase PEEP to 8. Will get head CT today. Patient is now in full blown ARDS from COVID. Increased PEEP to 8 and dropped TV to 400. pH of >7.15 and PaO2 >55 are acceptable. Repeat gas at 1600 today. 04/13/22: Renal function continues to improve and urine output improving as well. Given CXR findings will give lasix 40mg IV x1 today. Repeat CXR tomorrow. Off insulin drip and tolerating feeds. Hold on CT head today but if no improvement or worsening clinical state tomorrow, will repeat. Spoke with family on phone yesterday. Guarded prognosis. 04/12/22: Improved mental state. Feed patient today and stop IVF's and attempt to get off of insulin drip. Dropped Peep to 6. Wean FiO2 for sats >88%. PaO2 of 55 and greater are acceptable. Normal EF on echo. EEG showed diffuse slowing but mental state has improved. Will up date family. 04/11/22: Continue supportive measures. Getting EEG right now. Continue to wean Pressors for MAPs >65. if able to get to just one pressor, will place NG vs OG and attempt trickle feeds. Follow up echo. Down to 45%, good PaO2. Continue to wean, however mental state would preclude extubation at this time. Await renal eval but would like to stop bicarb now that acidosis is better, however needs free water but this could be given do OG/NG if end up placing, otherwise would just do D5W. If able to place tube and feed, then can attempt to get off insulin drip. Plan to update family after echo and EEG read. 1. Neuro-concern for seizures. EEG pending. Hold on long acting anti-epileptic therapy. Neurology consulted and has seen. patient is not on any continuous sedation at present 2. CV-Cardiovascular collapse on pressors (3). Could benefit from echo. Attempt volume resuscitation but no improvement. Continue pressors and wean as tolerated for MAPs >65 3. Pulm-intubated, not on sedation. COVID positive but oxygenation is stable. Per documentation, mainly intubated for airway protection given altered level of mental status. Not a candidate for Remdesivir and may not be a candidate for actemra. Continue steroids and low Tidal volume strategy for lung protection with permissive hypercapnea and lower PaO2 (55-60) if needed. 4. Renal- worsening renal function and decrease in urine output. Renal following. May need HD but would likely not tolerate and CRRT or CVVH is not available here. Worsening lactic acidosis as well. 5. GI-hold on feeds given pressor requirement, prophylactic therapy 6. Endo-continue insulin drip for now Overall prognosis is guarded to poor. Will discuss with immediate family today. CCT 31 minutes Subjective Date of service: 04/24/22 Principal diagnosis: encephalopathy Interval history: No acute events. COVID tests remains positive. Na and Cr are better. Objective Vital Signs - 12hr 04/23/22 04/23/22 04/23/22 19:49 19:50 20:00 Temperature 97.9 F Pulse Rate 111 H 114 H Pulse Rate [ 111 H From Monitor] Respiratory Rate Blood Pressure 144/81 O2 Sat by Pulse 100 100 Oximetry 04/23/22 04/23/22 04/23/22 20:01 20:15 20:31 Temperature Pulse Rate 111 H 113 H 110 H Pulse Rate [ From Monitor] Respiratory 19 21 20 Rate Blood Pressure 154/80 137/72 137/72 O2 Sat by Pulse 100 100 100 Oximetry 04/23/22 04/23/22 04/23/22 20:45 21:01 21:15 Temperature Pulse Rate 112 H 111 H 112 H Pulse Rate [ From Monitor] Respiratory 19 21 18 Rate Blood Pressure 142/79 142/79 144/81 O2 Sat by Pulse 100 100 100 Oximetry 04/23/22 04/23/22 04/23/22 21:31 21:45 22:01 Temperature Pulse Rate 113 H 112 H 111 H Pulse Rate [ From Monitor] Respiratory 22 19 19 Rate Blood Pressure 144/81 148/74 148/74 O2 Sat by Pulse 100 100 100 Oximetry 04/23/22 04/23/22 04/23/22 22:15 22:30 22:45 Temperature Pulse Rate 111 H 110 H 111 H Pulse Rate [ From Monitor] Respiratory 20 20 19 Rate Blood Pressure 147/72 147/72 160/74 O2 Sat by Pulse 100 100 100 Oximetry 04/23/22 04/23/22 04/23/22 23:01 23:07 23:15 Temperature Pulse Rate 110 H 112 H 110 H Pulse Rate [ From Monitor] Respiratory 19 14 19 Rate Blood Pressure 160/74 160/74 148/70 O2 Sat by Pulse 100 100 100 Oximetry 04/23/22 04/23/22 04/23/22 23:30 23:31 23:33 Temperature 98.9 F Pulse Rate 112 H 112 H Pulse Rate [ 110 H From Monitor] Respiratory 20 20 Rate Blood Pressure 148/70 O2 Sat by Pulse 100 100 Oximetry 04/23/22 04/24/22 04/24/22 23:45 00:00 00:01 Temperature Pulse Rate 110 H 108 H 108 H Pulse Rate [ From Monitor] Respiratory 20 19 Rate Blood Pressure 148/72 123/62 148/72 O2 Sat by Pulse 100 100 100 Oximetry 04/24/22 04/24/22 04/24/22 00:15 00:31 00:45 Temperature Pulse Rate 107 H 107 H 105 H Pulse Rate [ From Monitor] Respiratory 16 18 18 Rate Blood Pressure 123/62 123/62 144/74 O2 Sat by Pulse 100 100 100 Oximetry 04/24/22 04/24/22 04/24/22 01:01 01:15 01:31 Temperature Pulse Rate 107 H 106 H 106 H Pulse Rate [ From Monitor] Respiratory 19 18 18 Rate Blood Pressure 144/74 133/76 133/76 O2 Sat by Pulse 100 100 100 Oximetry 04/24/22 04/24/22 04/24/22 01:45 02:01 02:15 Temperature Pulse Rate 104 H 102 H 102 H Pulse Rate [ From Monitor] Respiratory 17 18 18 Rate Blood Pressure 131/69 131/69 121/73 O2 Sat by Pulse 100 100 100 Oximetry 04/24/22 04/24/22 04/24/22 02:31 02:45 03:01 Temperature Pulse Rate 103 H 101 H 100 H Pulse Rate [ From Monitor] Respiratory 18 18 18 Rate Blood Pressure 121/73 124/67 124/67 O2 Sat by Pulse 100 100 100 Oximetry 04/24/22 04/24/22 04/24/22 03:08 03:15 03:31 Temperature Pulse Rate 102 H 100 H 100 H Pulse Rate [ 101 H From Monitor] Respiratory 20 18 18 Rate Blood Pressure 114/69 114/69 O2 Sat by Pulse 100 100 100 Oximetry 04/24/22 04/24/22 04/24/22 03:45 03:50 04:00 Temperature 98.4 F Pulse Rate 100 H 102 H Pulse Rate [ From Monitor] Respiratory 18 Rate Blood Pressure 125/69 138/74 O2 Sat by Pulse 100 100 Oximetry 04/24/22 04/24/22 04/24/22 04:01 04:15 04:31 Temperature Pulse Rate 101 H 101 H 106 H Pulse Rate [ From Monitor] Respiratory 18 18 17 Rate Blood Pressure 125/69 138/74 138/74 O2 Sat by Pulse 100 100 100 Oximetry 04/24/22 04/24/22 04/24/22 04:45 05:01 05:15 Temperature Pulse Rate 103 H 101 H 101 H Pulse Rate [ From Monitor] Respiratory 16 18 18 Rate Blood Pressure 138/74 138/74 146/73 O2 Sat by Pulse 100 100 100 Oximetry 04/24/22 04/24/22 04/24/22 05:31 05:45 06:01 Temperature Pulse Rate 101 H 98 H 101 H Pulse Rate [ From Monitor] Respiratory 18 18 18 Rate Blood Pressure 146/73 145/72 145/72 O2 Sat by Pulse 100 100 100 Oximetry 04/24/22 04/24/22 04/24/22 06:15 06:31 06:45 Temperature Pulse Rate 101 H 101 H 100 H Pulse Rate [ From Monitor] Respiratory 18 18 18 Rate Blood Pressure 133/73 133/73 140/70 O2 Sat by Pulse 100 100 100 Oximetry 04/24/22 04/24/22 07:01 07:20 Temperature Pulse Rate 98 H 97 H Pulse Rate [ From Monitor] Respiratory 18 Rate Blood Pressure 140/70 149/72 O2 Sat by Pulse 100 100 Oximetry Constitutional: other (on vent orally intubated eyes open) Eyes: non-icteric, other (scleroedema on rt) ENT: oropharynx moist Ascultation: Bilateral: diminished breath sounds Cardiovascular: regular rate and rhythm Gastrointestinal: normoactive bowel sounds Integumentary: normal Extremities: no cyanosis CBC and BMP: 04/24/22 03:46 04/24/22 04:00 ABG, PT/INR, D-dimer: ABG ABG pH 7.378 pH Units (7.350-7.450) 04/24/22 04:41 ABG pCO2 47.8 mm Hg 04/24/22 04:41 ABG pO2 92.6 mm Hg (80.0-90.0) H 04/24/22 04:41 ABG O2 Saturation 97.1 % (95.0-99.0) 04/24/22 04:41 PT/INR, D-dimer PT 13.5 Sec. (12.2-14.9) 04/24/22 03:46 INR 0.93 (0.87-1.13) 04/24/22 03:46 D-Dimer 3804.33 ng/mlDDU (0-234) H 04/17/22 05:12 Abnormal lab findings: Abnormal Labs 04/09/22 04/09/22 04/09/22 11:59 12:52 12:52 WBC RBC Hgb Hct RDW 15.3 H Plt Count Lymph % (Auto) 8.4 L Lymph # (Auto) 0.7 L Seg Neutrophils % 84.6 H Seg Neuts % (Manual) Lymphocytes % (Manual) Seg Neutrophils # Seg Neutrophils # Man Lymphocytes # (Manual) D-Dimer ABG pH ABG pO2 ABG HCO3 ABG O2 Saturation ABG Base Excess ABG Hemoglobin VBG pH Oxyhemoglobin Sodium Potassium Chloride 112.7 H Carbon Dioxide 18 L BUN Creatinine 2.0 H Glucose 204 H POC Glucose 203 H Lactic Acid Calcium Phosphorus Magnesium Ferritin Total Bilirubin 1.30 H Direct Bilirubin AST 47 H ALT Ammonia Lactate Dehydrogenase C-Reactive Protein Total Protein Albumin Urine Creatinine Urine Total Protein Coronavirus (PCR) 04/09/22 04/09/22 04/09/22 12:52 12:52 13:02 WBC RBC Hgb Hct RDW Plt Count Lymph % (Auto) Lymph # (Auto) Seg Neutrophils % Seg Neuts % (Manual) Lymphocytes % (Manual) Seg Neutrophils # Seg Neutrophils # Man Lymphocytes # (Manual) D-Dimer ABG pH ABG pO2 ABG HCO3 ABG O2 Saturation ABG Base Excess ABG Hemoglobin VBG pH 7.303 L Oxyhemoglobin Sodium Potassium Chloride Carbon Dioxide BUN Creatinine Glucose POC Glucose Lactic Acid Calcium Phosphorus Magnesium Ferritin Total Bilirubin Direct Bilirubin AST ALT Ammonia 20.0 L Lactate Dehydrogenase C-Reactive Protein Total Protein Albumin Urine Creatinine Urine Total Protein Coronavirus (PCR) Positive A 04/09/22 04/09/22 04/09/22 15:49 22:15 22:58 WBC RBC Hgb Hct RDW Plt Count Lymph % (Auto) Lymph # (Auto) Seg Neutrophils % Seg Neuts % (Manual) Lymphocytes % (Manual) Seg Neutrophils # Seg Neutrophils # Man Lymphocytes # (Manual) D-Dimer ABG pH 7.097 L* ABG pO2 188.8 H ABG HCO3 7.4 L ABG O2 Saturation 99.1 H ABG Base Excess -20.7 L ABG Hemoglobin VBG pH Oxyhemoglobin Sodium Potassium Chloride 108.8 H Carbon Dioxide 10 L D BUN 20 H Creatinine 2.6 H Glucose 465 H POC Glucose Lactic Acid 2.70 H* Calcium 7.4 L Phosphorus Magnesium Ferritin Total Bilirubin Direct Bilirubin AST ALT Ammonia Lactate Dehydrogenase C-Reactive Protein Total Protein Albumin Urine Creatinine Urine Total Protein Coronavirus (PCR) 04/09/22 04/09/22 04/10/22 23:19 Unknown 00:03 WBC RBC Hgb Hct RDW Plt Count Lymph % (Auto) Lymph # (Auto) Seg Neutrophils % Seg Neuts % (Manual) Lymphocytes % (Manual) Seg Neutrophils # Seg Neutrophils # Man Lymphocytes # (Manual) D-Dimer ABG pH ABG pO2 ABG HCO3 ABG O2 Saturation ABG Base Excess ABG Hemoglobin VBG pH Oxyhemoglobin Sodium Potassium Chloride Carbon Dioxide BUN Creatinine Glucose POC Glucose 356 H Lactic Acid 7.50 H* 6.10 H* Calcium Phosphorus Magnesium Ferritin Total Bilirubin Direct Bilirubin AST ALT Ammonia Lactate Dehydrogenase C-Reactive Protein Total Protein Albumin Urine Creatinine Urine Total Protein Coronavirus (PCR) 04/10/22 04/10/22 04/10/22 02:16 03:03 04:00 WBC RBC Hgb Hct RDW Plt Count Lymph % (Auto) Lymph # (Auto) Seg Neutrophils % Seg Neuts % (Manual) Lymphocytes % (Manual) Seg Neutrophils # Seg Neutrophils # Man Lymphocytes # (Manual) D-Dimer ABG pH ABG pO2 ABG HCO3 ABG O2 Saturation ABG Base Excess ABG Hemoglobin VBG pH Oxyhemoglobin Sodium Potassium Chloride Carbon Dioxide BUN Creatinine Glucose POC Glucose 317 H 325 H 308 H Lactic Acid Calcium Phosphorus Magnesium Ferritin Total Bilirubin Direct Bilirubin AST ALT Ammonia Lactate Dehydrogenase C-Reactive Protein Total Protein Albumin Urine Creatinine Urine Total Protein Coronavirus (PCR) 04/10/22 04/10/22 04/10/22 04:24 04:24 04:24 WBC 16.4 H RBC Hgb Hct RDW 16.2 H Plt Count Lymph % (Auto) Lymph # (Auto) Seg Neutrophils % Seg Neuts % (Manual) 94.0 H Lymphocytes % (Manual) 3.0 L Seg Neutrophils # Seg Neutrophils # Man 15.4 H Lymphocytes # (Manual) 0.5 L D-Dimer ABG pH ABG pO2 ABG HCO3 ABG O2 Saturation ABG Base Excess ABG Hemoglobin VBG pH Oxyhemoglobin Sodium Potassium 2.9 L* D Chloride 116.1 H Carbon Dioxide 11 L BUN 19 H Creatinine 2.5 H Glucose 376 H POC Glucose Lactic Acid Calcium 6.5 L Phosphorus 1.40 L Magnesium 1.60 L Ferritin Total Bilirubin Direct Bilirubin AST 107 H ALT 64 H Ammonia Lactate Dehydrogenase C-Reactive Protein Total Protein 5.5 L Albumin 2.8 L Urine Creatinine Urine Total Protein Coronavirus (PCR) 04/10/22 04/10/22 04/10/22 04:25 05:17 06:00 WBC RBC Hgb Hct RDW Plt Count Lymph % (Auto) Lymph # (Auto) Seg Neutrophils % Seg Neuts % (Manual) Lymphocytes % (Manual) Seg Neutrophils # Seg Neutrophils # Man Lymphocytes # (Manual) D-Dimer ABG pH 7.095 L* ABG pO2 112.3 H ABG HCO3 8.7 L ABG O2 Saturation ABG Base Excess -19.7 L ABG Hemoglobin VBG pH Oxyhemoglobin Sodium Potassium Chloride Carbon Dioxide BUN Creatinine Glucose POC Glucose 343 H 278 H Lactic Acid Calcium Phosphorus Magnesium Ferritin Total Bilirubin Direct Bilirubin AST ALT Ammonia Lactate Dehydrogenase C-Reactive Protein Total Protein Albumin Urine Creatinine Urine Total Protein Coronavirus (PCR) 04/10/22 04/10/22 04/10/22 06:53 07:54 08:58 WBC RBC Hgb Hct RDW Plt Count Lymph % (Auto) Lymph # (Auto) Seg Neutrophils % Seg Neuts % (Manual) Lymphocytes % (Manual) Seg Neutrophils # Seg Neutrophils # Man Lymphocytes # (Manual) D-Dimer ABG pH ABG pO2 ABG HCO3 ABG O2 Saturation ABG Base Excess ABG Hemoglobin VBG pH Oxyhemoglobin Sodium Potassium Chloride Carbon Dioxide BUN Creatinine Glucose POC Glucose 262 H 245 H 215 H Lactic Acid Calcium Phosphorus Magnesium Ferritin Total Bilirubin Direct Bilirubin AST ALT Ammonia Lactate Dehydrogenase C-Reactive Protein Total Protein Albumin Urine Creatinine Urine Total Protein Coronavirus (PCR) 04/10/22 04/10/22 04/10/22 10:12 10:51 11:47 WBC RBC Hgb Hct RDW Plt Count Lymph % (Auto) Lymph # (Auto) Seg Neutrophils % Seg Neuts % (Manual) Lymphocytes % (Manual) Seg Neutrophils # Seg Neutrophils # Man Lymphocytes # (Manual) D-Dimer ABG pH ABG pO2 ABG HCO3 ABG O2 Saturation ABG Base Excess ABG Hemoglobin VBG pH Oxyhemoglobin Sodium 148 H Potassium 3.4 L Chloride 116.7 H Carbon Dioxide 15 L BUN 22 H Creatinine 2.7 H Glucose 190 H POC Glucose 206 H 176 H Lactic Acid Calcium 6.9 L Phosphorus Magnesium Ferritin Total Bilirubin Direct Bilirubin AST ALT Ammonia Lactate Dehydrogenase C-Reactive Protein Total Protein Albumin Urine Creatinine Urine Total Protein Coronavirus (PCR) 04/10/22 04/10/22 04/10/22 11:47 11:47 12:02 WBC RBC Hgb Hct RDW Plt Count Lymph % (Auto) Lymph # (Auto) Seg Neutrophils % Seg Neuts % (Manual) Lymphocytes % (Manual) Seg Neutrophils # Seg Neutrophils # Man Lymphocytes # (Manual) D-Dimer ABG pH ABG pO2 ABG HCO3 ABG O2 Saturation ABG Base Excess ABG Hemoglobin VBG pH Oxyhemoglobin Sodium Potassium Chloride Carbon Dioxide BUN Creatinine Glucose POC Glucose 178 H Lactic Acid Calcium Phosphorus Magnesium Ferritin 1218.0 H Total Bilirubin Direct Bilirubin AST ALT Ammonia Lactate Dehydrogenase 482 H C-Reactive Protein 11.30 H Total Protein Albumin Urine Creatinine Urine Total Protein Coronavirus (PCR) 04/10/22 04/10/22 04/10/22 13:13 13:58 14:50 WBC RBC Hgb Hct RDW Plt Count Lymph % (Auto) Lymph # (Auto) Seg Neutrophils % Seg Neuts % (Manual) Lymphocytes % (Manual) Seg Neutrophils # Seg Neutrophils # Man Lymphocytes # (Manual) D-Dimer ABG pH ABG pO2 ABG HCO3 ABG O2 Saturation ABG Base Excess ABG Hemoglobin VBG pH Oxyhemoglobin Sodium Potassium Chloride Carbon Dioxide BUN Creatinine Glucose POC Glucose 160 H 150 H Lactic Acid Calcium Phosphorus Magnesium Ferritin Total Bilirubin Direct Bilirubin AST ALT Ammonia Lactate Dehydrogenase C-Reactive Protein Total Protein Albumin Urine Creatinine 224.2 H Urine Total Protein 172 H Coronavirus (PCR) 04/10/22 04/10/22 04/10/22 15:24 16:38 16:56 WBC RBC Hgb Hct RDW Plt Count Lymph % (Auto) Lymph # (Auto) Seg Neutrophils % Seg Neuts % (Manual) Lymphocytes % (Manual) Seg Neutrophils # Seg Neutrophils # Man Lymphocytes # (Manual) D-Dimer ABG pH ABG pO2 ABG HCO3 ABG O2 Saturation ABG Base Excess ABG Hemoglobin VBG pH Oxyhemoglobin Sodium Potassium Chloride Carbon Dioxide BUN Creatinine Glucose POC Glucose 140 H 154 H 149 H Lactic Acid Calcium Phosphorus Magnesium Ferritin Total Bilirubin Direct Bilirubin AST ALT Ammonia Lactate Dehydrogenase C-Reactive Protein Total Protein Albumin Urine Creatinine Urine Total Protein Coronavirus (PCR) 04/10/22 04/10/22 04/10/22 18:21 19:21 20:02 WBC RBC Hgb Hct RDW Plt Count Lymph % (Auto) Lymph # (Auto) Seg Neutrophils % Seg Neuts % (Manual) Lymphocytes % (Manual) Seg Neutrophils # Seg Neutrophils # Man Lymphocytes # (Manual) D-Dimer ABG pH ABG pO2 ABG HCO3 ABG O2 Saturation ABG Base Excess ABG Hemoglobin VBG pH Oxyhemoglobin Sodium Potassium Chloride Carbon Dioxide BUN Creatinine Glucose POC Glucose 141 H 126 H 139 H Lactic Acid Calcium Phosphorus Magnesium Ferritin Total Bilirubin Direct Bilirubin AST ALT Ammonia Lactate Dehydrogenase C-Reactive Protein Total Protein Albumin Urine Creatinine Urine Total Protein Coronavirus (PCR) 04/10/22 04/10/22 04/10/22 21:04 21:58 22:20 WBC RBC Hgb Hct RDW Plt Count Lymph % (Auto) Lymph # (Auto) Seg Neutrophils % Seg Neuts % (Manual) Lymphocytes % (Manual) Seg Neutrophils # Seg Neutrophils # Man Lymphocytes # (Manual) D-Dimer ABG pH ABG pO2 ABG HCO3 ABG O2 Saturation ABG Base Excess ABG Hemoglobin VBG pH Oxyhemoglobin Sodium Potassium Chloride 114.5 H Carbon Dioxide 17 L BUN 24 H Creatinine 2.5 H Glucose 165 H POC Glucose 144 H 161 H Lactic Acid Calcium 6.5 L Phosphorus Magnesium Ferritin Total Bilirubin Direct Bilirubin AST ALT Ammonia Lactate Dehydrogenase C-Reactive Protein Total Protein Albumin Urine Creatinine Urine Total Protein Coronavirus (PCR) 04/10/22 04/11/22 04/11/22 23:02 00:08 01:05 WBC RBC Hgb Hct RDW Plt Count Lymph % (Auto) Lymph # (Auto) Seg Neutrophils % Seg Neuts % (Manual) Lymphocytes % (Manual) Seg Neutrophils # Seg Neutrophils # Man Lymphocytes # (Manual) D-Dimer ABG pH ABG pO2 ABG HCO3 ABG O2 Saturation ABG Base Excess ABG Hemoglobin VBG pH Oxyhemoglobin Sodium Potassium Chloride Carbon Dioxide BUN Creatinine Glucose POC Glucose 160 H 148 H 156 H Lactic Acid Calcium Phosphorus Magnesium Ferritin Total Bilirubin Direct Bilirubin AST ALT Ammonia Lactate Dehydrogenase C-Reactive Protein Total Protein Albumin Urine Creatinine Urine Total Protein Coronavirus (PCR) 04/11/22 04/11/22 04/11/22 01:30 02:05 03:04 WBC RBC Hgb Hct RDW Plt Count Lymph % (Auto) Lymph # (Auto) Seg Neutrophils % Seg Neuts % (Manual) Lymphocytes % (Manual) Seg Neutrophils # Seg Neutrophils # Man Lymphocytes # (Manual) D-Dimer ABG pH ABG pO2 75.1 L ABG HCO3 17.2 L ABG O2 Saturation ABG Base Excess -5.8 L ABG Hemoglobin 11.5 L VBG pH Oxyhemoglobin Sodium Potassium Chloride Carbon Dioxide BUN Creatinine Glucose POC Glucose 150 H 168 H Lactic Acid Calcium Phosphorus Magnesium Ferritin Total Bilirubin Direct Bilirubin AST ALT Ammonia Lactate Dehydrogenase C-Reactive Protein Total Protein Albumin Urine Creatinine Urine Total Protein Coronavirus (PCR) 04/11/22 04/11/22 04/11/22 03:58 03:58 04:05 WBC 12.2 H RBC Hgb Hct RDW 15.7 H Plt Count Lymph % (Auto) Lymph # (Auto) Seg Neutrophils % Seg Neuts % (Manual) Lymphocytes % (Manual) Seg Neutrophils # Seg Neutrophils # Man Lymphocytes # (Manual) D-Dimer ABG pH ABG pO2 ABG HCO3 ABG O2 Saturation ABG Base Excess ABG Hemoglobin VBG pH Oxyhemoglobin Sodium 147 H Potassium Chloride 114.2 H Carbon Dioxide 19 L BUN 26 H Creatinine 2.5 H Glucose 154 H POC Glucose 151 H Lactic Acid Calcium 6.8 L Phosphorus Magnesium Ferritin Total Bilirubin Direct Bilirubin AST 106 H ALT 60 H Ammonia Lactate Dehydrogenase C-Reactive Protein Total Protein 5.6 L Albumin 2.7 L Urine Creatinine Urine Total Protein Coronavirus (PCR) 04/11/22 04/11/22 04/11/22 05:14 06:19 08:23 WBC RBC Hgb Hct RDW Plt Count Lymph % (Auto) Lymph # (Auto) Seg Neutrophils % Seg Neuts % (Manual) Lymphocytes % (Manual) Seg Neutrophils # Seg Neutrophils # Man Lymphocytes # (Manual) D-Dimer ABG pH ABG pO2 ABG HCO3 ABG O2 Saturation ABG Base Excess ABG Hemoglobin VBG pH Oxyhemoglobin Sodium Potassium Chloride Carbon Dioxide BUN Creatinine Glucose POC Glucose 134 H 144 H 143 H Lactic Acid Calcium Phosphorus Magnesium Ferritin Total Bilirubin Direct Bilirubin AST ALT Ammonia Lactate Dehydrogenase C-Reactive Protein Total Protein Albumin Urine Creatinine Urine Total Protein Coronavirus (PCR) 04/11/22 04/11/22 04/11/22 09:28 10:06 11:23 WBC RBC Hgb Hct RDW Plt Count Lymph % (Auto) Lymph # (Auto) Seg Neutrophils % Seg Neuts % (Manual) Lymphocytes % (Manual) Seg Neutrophils # Seg Neutrophils # Man Lymphocytes # (Manual) D-Dimer ABG pH ABG pO2 ABG HCO3 ABG O2 Saturation ABG Base Excess ABG Hemoglobin VBG pH Oxyhemoglobin Sodium Potassium Chloride Carbon Dioxide BUN Creatinine Glucose POC Glucose 138 H Lactic Acid Calcium Phosphorus Magnesium Ferritin Total Bilirubin Direct Bilirubin AST ALT Ammonia Lactate Dehydrogenase C-Reactive Protein Total Protein Albumin Urine Creatinine 161.8 H 160.5 H Urine Total Protein Coronavirus (PCR) 04/11/22 04/11/22 04/12/22 15:59 23:58 00:01 WBC 16.2 H RBC Hgb Hct RDW 15.8 H Plt Count Lymph % (Auto) 5.7 L Lymph # (Auto) 0.9 L Seg Neutrophils % 89.6 H Seg Neuts % (Manual) Lymphocytes % (Manual) Seg Neutrophils # 14.6 H Seg Neutrophils # Man Lymphocytes # (Manual) D-Dimer ABG pH ABG pO2 ABG HCO3 ABG O2 Saturation ABG Base Excess ABG Hemoglobin VBG pH Oxyhemoglobin Sodium Potassium Chloride Carbon Dioxide BUN Creatinine Glucose POC Glucose 166 H 150 H Lactic Acid Calcium Phosphorus Magnesium Ferritin Total Bilirubin Direct Bilirubin AST ALT Ammonia Lactate Dehydrogenase C-Reactive Protein Total Protein Albumin Urine Creatinine Urine Total Protein Coronavirus (PCR) 04/12/22 04/12/22 04/12/22 03:20 04:00 04:00 WBC RBC Hgb Hct RDW Plt Count Lymph % (Auto) Lymph # (Auto) Seg Neutrophils % Seg Neuts % (Manual) Lymphocytes % (Manual) Seg Neutrophils # Seg Neutrophils # Man Lymphocytes # (Manual) D-Dimer 1874.86 H ABG pH 7.513 H ABG pO2 61.7 L ABG HCO3 ABG O2 Saturation 94.2 L ABG Base Excess ABG Hemoglobin 11.5 L VBG pH Oxyhemoglobin 92.6 L Sodium Potassium Chloride Carbon Dioxide BUN Creatinine Glucose POC Glucose Lactic Acid Calcium Phosphorus Magnesium Ferritin 890.0 H Total Bilirubin Direct Bilirubin AST ALT Ammonia Lactate Dehydrogenase C-Reactive Protein Total Protein Albumin Urine Creatinine Urine Total Protein Coronavirus (PCR) 04/12/22 04/12/22 04/12/22 04:00 04:20 04:59 WBC RBC Hgb Hct RDW Plt Count Lymph % (Auto) Lymph # (Auto) Seg Neutrophils % Seg Neuts % (Manual) Lymphocytes % (Manual) Seg Neutrophils # Seg Neutrophils # Man Lymphocytes # (Manual) D-Dimer ABG pH ABG pO2 ABG HCO3 ABG O2 Saturation ABG Base Excess ABG Hemoglobin VBG pH Oxyhemoglobin Sodium 146 H Potassium Chloride 108.0 H Carbon Dioxide BUN 38 H Creatinine 2.3 H Glucose 173 H POC Glucose 146 H Lactic Acid Calcium 6.7 L Phosphorus Magnesium Ferritin Total Bilirubin Direct Bilirubin AST ALT Ammonia Lactate Dehydrogenase 763 H C-Reactive Protein 14.10 H Total Protein Albumin Urine Creatinine Urine Total Protein Coronavirus (PCR) 04/12/22 04/12/22 04/12/22 06:05 10:15 11:52 WBC RBC Hgb Hct RDW Plt Count Lymph % (Auto) Lymph # (Auto) Seg Neutrophils % Seg Neuts % (Manual) Lymphocytes % (Manual) Seg Neutrophils # Seg Neutrophils # Man Lymphocytes # (Manual) D-Dimer ABG pH ABG pO2 ABG HCO3 ABG O2 Saturation ABG Base Excess ABG Hemoglobin VBG pH Oxyhemoglobin Sodium Potassium Chloride Carbon Dioxide BUN Creatinine Glucose POC Glucose 190 H 122 H 125 H Lactic Acid Calcium Phosphorus Magnesium Ferritin Total Bilirubin Direct Bilirubin AST ALT Ammonia Lactate Dehydrogenase C-Reactive Protein Total Protein Albumin Urine Creatinine Urine Total Protein Coronavirus (PCR) 04/12/22 04/13/22 04/13/22 13:18 00:14 03:41 WBC RBC Hgb Hct RDW Plt Count Lymph % (Auto) Lymph # (Auto) Seg Neutrophils % Seg Neuts % (Manual) Lymphocytes % (Manual) Seg Neutrophils # Seg Neutrophils # Man Lymphocytes # (Manual) D-Dimer ABG pH 7.487 H ABG pO2 62.1 L ABG HCO3 ABG O2 Saturation 93.2 L ABG Base Excess ABG Hemoglobin 11.9 L VBG pH Oxyhemoglobin 91.5 L Sodium Potassium Chloride Carbon Dioxide BUN 38 H Creatinine 2.1 H Glucose 144 H POC Glucose 208 H Lactic Acid Calcium 7.1 L Phosphorus Magnesium Ferritin Total Bilirubin Direct Bilirubin AST ALT Ammonia Lactate Dehydrogenase C-Reactive Protein Total Protein Albumin Urine Creatinine Urine Total Protein Coronavirus (PCR) 04/13/22 04/13/22 04/14/22 04:31 04:31 03:54 WBC 13.9 H RBC Hgb Hct RDW 15.7 H Plt Count Lymph % (Auto) Lymph # (Auto) Seg Neutrophils % Seg Neuts % (Manual) Lymphocytes % (Manual) Seg Neutrophils # Seg Neutrophils # Man Lymphocytes # (Manual) D-Dimer ABG pH 7.487 H ABG pO2 57.8 L ABG HCO3 ABG O2 Saturation 93.9 L ABG Base Excess ABG Hemoglobin 10.0 L VBG pH Oxyhemoglobin 92.3 L Sodium Potassium Chloride Carbon Dioxide BUN 42 H Creatinine 1.9 H Glucose 204 H POC Glucose Lactic Acid Calcium 7.4 L Phosphorus Magnesium Ferritin Total Bilirubin Direct Bilirubin AST ALT Ammonia Lactate Dehydrogenase C-Reactive Protein Total Protein Albumin Urine Creatinine Urine Total Protein Coronavirus (PCR) 04/14/22 04/14/22 04/14/22 07:28 07:28 07:28 WBC RBC Hgb Hct RDW Plt Count Lymph % (Auto) Lymph # (Auto) Seg Neutrophils % Seg Neuts % (Manual) Lymphocytes % (Manual) Seg Neutrophils # Seg Neutrophils # Man Lymphocytes # (Manual) D-Dimer 5586.76 H ABG pH ABG pO2 ABG HCO3 ABG O2 Saturation ABG Base Excess ABG Hemoglobin VBG pH Oxyhemoglobin Sodium Potassium Chloride Carbon Dioxide BUN Creatinine Glucose POC Glucose Lactic Acid Calcium Phosphorus Magnesium Ferritin 454.7 H Total Bilirubin Direct Bilirubin AST ALT Ammonia Lactate Dehydrogenase 1345 H C-Reactive Protein 4.80 H Total Protein Albumin Urine Creatinine Urine Total Protein Coronavirus (PCR) 04/14/22 04/14/22 04/14/22 07:28 07:28 09:26 WBC 18.6 H RBC 3.59 L Hgb Hct RDW 15.6 H Plt Count Lymph % (Auto) Lymph # (Auto) Seg Neutrophils % Seg Neuts % (Manual) Lymphocytes % (Manual) Seg Neutrophils # Seg Neutrophils # Man Lymphocytes # (Manual) D-Dimer ABG pH ABG pO2 ABG HCO3 ABG O2 Saturation ABG Base Excess ABG Hemoglobin VBG pH Oxyhemoglobin Sodium 149 H Potassium Chloride 110.3 H Carbon Dioxide BUN 57 H Creatinine 2.3 H Glucose 205 H POC Glucose Lactic Acid Calcium Phosphorus Magnesium 2.90 H Ferritin Total Bilirubin Direct Bilirubin AST ALT Ammonia Lactate Dehydrogenase C-Reactive Protein Total Protein Albumin Urine Creatinine Urine Total Protein Coronavirus (PCR) 04/14/22 04/14/22 04/14/22 11:52 15:41 17:18 WBC RBC Hgb Hct RDW Plt Count Lymph % (Auto) Lymph # (Auto) Seg Neutrophils % Seg Neuts % (Manual) Lymphocytes % (Manual) Seg Neutrophils # Seg Neutrophils # Man Lymphocytes # (Manual) D-Dimer ABG pH 7.506 H ABG pO2 51.0 L ABG HCO3 ABG O2 Saturation 87.3 L ABG Base Excess ABG Hemoglobin 10.6 L VBG pH Oxyhemoglobin 85.4 L Sodium Potassium Chloride Carbon Dioxide BUN Creatinine Glucose POC Glucose 173 H 187 H Lactic Acid Calcium Phosphorus Magnesium Ferritin Total Bilirubin Direct Bilirubin AST ALT Ammonia Lactate Dehydrogenase C-Reactive Protein Total Protein Albumin Urine Creatinine Urine Total Protein Coronavirus (PCR) 04/15/22 04/15/22 04/15/22 00:03 03:43 05:47 WBC RBC Hgb Hct RDW Plt Count Lymph % (Auto) Lymph # (Auto) Seg Neutrophils % Seg Neuts % (Manual) Lymphocytes % (Manual) Seg Neutrophils # Seg Neutrophils # Man Lymphocytes # (Manual) D-Dimer ABG pH 7.477 H ABG pO2 59.1 L ABG HCO3 ABG O2 Saturation 90.5 L ABG Base Excess ABG Hemoglobin 9.5 L VBG pH Oxyhemoglobin 88.7 L Sodium Potassium Chloride Carbon Dioxide BUN Creatinine Glucose POC Glucose 246 H 217 H Lactic Acid Calcium Phosphorus Magnesium Ferritin Total Bilirubin Direct Bilirubin AST ALT Ammonia Lactate Dehydrogenase C-Reactive Protein Total Protein Albumin Urine Creatinine Urine Total Protein Coronavirus (PCR) 04/15/22 04/15/22 04/15/22 09:40 10:00 12:00 WBC 19.3 H RBC 3.18 L Hgb 9.3 L Hct 27.7 L RDW 15.8 H Plt Count Lymph % (Auto) Lymph # (Auto) Seg Neutrophils % Seg Neuts % (Manual) Lymphocytes % (Manual) Seg Neutrophils # Seg Neutrophils # Man Lymphocytes # (Manual) D-Dimer ABG pH ABG pO2 ABG HCO3 ABG O2 Saturation ABG Base Excess ABG Hemoglobin VBG pH Oxyhemoglobin Sodium 146 H Potassium Chloride 107.9 H Carbon Dioxide BUN 76 H Creatinine 1.9 H Glucose 214 H POC Glucose Lactic Acid 2.10 H* Calcium 7.7 L Phosphorus Magnesium Ferritin Total Bilirubin Direct Bilirubin AST ALT Ammonia Lactate Dehydrogenase C-Reactive Protein Total Protein Albumin Urine Creatinine Urine Total Protein Coronavirus (PCR) 04/15/22 04/15/22 04/15/22 12:21 17:51 21:39 WBC RBC Hgb Hct RDW Plt Count Lymph % (Auto) Lymph # (Auto) Seg Neutrophils % Seg Neuts % (Manual) Lymphocytes % (Manual) Seg Neutrophils # Seg Neutrophils # Man Lymphocytes # (Manual) D-Dimer ABG pH ABG pO2 ABG HCO3 ABG O2 Saturation ABG Base Excess ABG Hemoglobin VBG pH Oxyhemoglobin Sodium Potassium Chloride Carbon Dioxide BUN Creatinine Glucose POC Glucose 236 H 255 H 223 H Lactic Acid Calcium Phosphorus Magnesium Ferritin Total Bilirubin Direct Bilirubin AST ALT Ammonia Lactate Dehydrogenase C-Reactive Protein Total Protein Albumin Urine Creatinine Urine Total Protein Coronavirus (PCR) 04/16/22 04/16/22 04/16/22 00:17 02:35 04:00 WBC RBC Hgb Hct RDW Plt Count Lymph % (Auto) Lymph # (Auto) Seg Neutrophils % Seg Neuts % (Manual) Lymphocytes % (Manual) Seg Neutrophils # Seg Neutrophils # Man Lymphocytes # (Manual) D-Dimer ABG pH 7.318 L ABG pO2 71.1 L ABG HCO3 27.7 H ABG O2 Saturation 94.8 L ABG Base Excess ABG Hemoglobin 10.3 L VBG pH Oxyhemoglobin 92.9 L Sodium Potassium Chloride Carbon Dioxide BUN Creatinine Glucose POC Glucose 201 H Lactic Acid Calcium Phosphorus Magnesium Ferritin 446.2 H Total Bilirubin Direct Bilirubin AST ALT Ammonia Lactate Dehydrogenase C-Reactive Protein Total Protein Albumin Urine Creatinine Urine Total Protein Coronavirus (PCR) 04/16/22 04/16/22 04/16/22 04:00 06:00 Unknown WBC RBC Hgb Hct RDW Plt Count Lymph % (Auto) Lymph # (Auto) Seg Neutrophils % Seg Neuts % (Manual) Lymphocytes % (Manual) Seg Neutrophils # Seg Neutrophils # Man Lymphocytes # (Manual) D-Dimer 3886.80 H ABG pH ABG pO2 ABG HCO3 ABG O2 Saturation ABG Base Excess ABG Hemoglobin VBG pH Oxyhemoglobin Sodium 148 H Potassium Chloride 109.9 H Carbon Dioxide BUN 84 H Creatinine 1.7 H Glucose 276 H POC Glucose Lactic Acid Calcium Phosphorus Magnesium Ferritin Total Bilirubin Direct Bilirubin 0.5 H AST 69 H ALT 120 H Ammonia Lactate Dehydrogenase 1467 H C-Reactive Protein 1.90 H Total Protein 5.9 L Albumin 3.5 L Urine Creatinine Urine Total Protein Coronavirus (PCR) 04/16/22 04/17/22 04/17/22 Unknown 05:12 05:12 WBC 25.2 H 22.2 H RBC 3.50 L Hgb Hct RDW 15.8 H 15.8 H Plt Count Lymph % (Auto) Lymph # (Auto) Seg Neutrophils % Seg Neuts % (Manual) Lymphocytes % (Manual) Seg Neutrophils # Seg Neutrophils # Man Lymphocytes # (Manual) D-Dimer 3804.33 H ABG pH ABG pO2 ABG HCO3 ABG O2 Saturation ABG Base Excess ABG Hemoglobin VBG pH Oxyhemoglobin Sodium Potassium Chloride Carbon Dioxide BUN Creatinine Glucose POC Glucose Lactic Acid Calcium Phosphorus Magnesium Ferritin Total Bilirubin Direct Bilirubin AST ALT Ammonia Lactate Dehydrogenase C-Reactive Protein Total Protein Albumin Urine Creatinine Urine Total Protein Coronavirus (PCR) 04/17/22 04/17/22 04/17/22 05:12 17:27 20:04 WBC RBC Hgb Hct RDW Plt Count Lymph % (Auto) Lymph # (Auto) Seg Neutrophils % Seg Neuts % (Manual) Lymphocytes % (Manual) Seg Neutrophils # Seg Neutrophils # Man Lymphocytes # (Manual) D-Dimer ABG pH ABG pO2 ABG HCO3 ABG O2 Saturation ABG Base Excess ABG Hemoglobin VBG pH Oxyhemoglobin Sodium 149 H Potassium 5.3 H Chloride 109.4 H Carbon Dioxide BUN 80 H Creatinine 1.5 H Glucose 320 H POC Glucose 308 H 301 H Lactic Acid Calcium Phosphorus Magnesium Ferritin Total Bilirubin Direct Bilirubin AST 171 H ALT 231 H Ammonia Lactate Dehydrogenase C-Reactive Protein Total Protein 5.4 L Albumin 3.7 L Urine Creatinine Urine Total Protein Coronavirus (PCR) 04/18/22 04/18/22 04/18/22 01:55 05:41 05:41 WBC RBC Hgb Hct RDW Plt Count Lymph % (Auto) Lymph # (Auto) Seg Neutrophils % Seg Neuts % (Manual) Lymphocytes % (Manual) Seg Neutrophils # Seg Neutrophils # Man Lymphocytes # (Manual) D-Dimer ABG pH ABG pO2 ABG HCO3 ABG O2 Saturation ABG Base Excess ABG Hemoglobin VBG pH Oxyhemoglobin Sodium 156 H Potassium Chloride 117.8 H Carbon Dioxide BUN 69 H Creatinine 1.3 H Glucose 231 H POC Glucose 301 H Lactic Acid Calcium 8.3 L Phosphorus Magnesium Ferritin 570.8 H Total Bilirubin Direct Bilirubin AST ALT Ammonia Lactate Dehydrogenase 1473 H C-Reactive Protein Total Protein Albumin Urine Creatinine Urine Total Protein Coronavirus (PCR) 04/18/22 04/18/22 04/18/22 05:41 06:09 10:35 WBC 19.6 H RBC 3.38 L Hgb 9.7 L Hct 29.5 L RDW 15.9 H Plt Count Lymph % (Auto) Lymph # (Auto) Seg Neutrophils % Seg Neuts % (Manual) Lymphocytes % (Manual) Seg Neutrophils # Seg Neutrophils # Man Lymphocytes # (Manual) D-Dimer ABG pH ABG pO2 ABG HCO3 ABG O2 Saturation ABG Base Excess ABG Hemoglobin VBG pH Oxyhemoglobin Sodium 156 H Potassium Chloride 118.2 H Carbon Dioxide 32 H BUN 66 H Creatinine 1.3 H Glucose 179 H POC Glucose 210 H Lactic Acid Calcium 8.3 L Phosphorus Magnesium Ferritin Total Bilirubin Direct Bilirubin AST 91 H ALT 234 H Ammonia Lactate Dehydrogenase C-Reactive Protein Total Protein 5.3 L Albumin 3.4 L Urine Creatinine Urine Total Protein Coronavirus (PCR) 04/18/22 04/18/22 04/19/22 11:57 23:36 03:21 WBC RBC Hgb Hct RDW Plt Count Lymph % (Auto) Lymph # (Auto) Seg Neutrophils % Seg Neuts % (Manual) Lymphocytes % (Manual) Seg Neutrophils # Seg Neutrophils # Man Lymphocytes # (Manual) D-Dimer ABG pH ABG pO2 ABG HCO3 ABG O2 Saturation ABG Base Excess ABG Hemoglobin VBG pH Oxyhemoglobin Sodium Potassium Chloride Carbon Dioxide BUN Creatinine Glucose POC Glucose 161 H 209 H 184 H Lactic Acid Calcium Phosphorus Magnesium Ferritin Total Bilirubin Direct Bilirubin AST ALT Ammonia Lactate Dehydrogenase C-Reactive Protein Total Protein Albumin Urine Creatinine Urine Total Protein Coronavirus (PCR) 04/19/22 04/19/22 04/19/22 04:00 04:00 05:58 WBC 18.2 H RBC Hgb Hct RDW 15.7 H Plt Count Lymph % (Auto) Lymph # (Auto) Seg Neutrophils % Seg Neuts % (Manual) Lymphocytes % (Manual) Seg Neutrophils # Seg Neutrophils # Man Lymphocytes # (Manual) D-Dimer ABG pH ABG pO2 ABG HCO3 ABG O2 Saturation ABG Base Excess ABG Hemoglobin VBG pH Oxyhemoglobin Sodium 160 H Potassium Chloride 119.7 H Carbon Dioxide 31 H BUN 60 H Creatinine 1.3 H Glucose 213 H POC Glucose 207 H Lactic Acid Calcium Phosphorus Magnesium Ferritin Total Bilirubin Direct Bilirubin AST 77 H ALT 208 H Ammonia Lactate Dehydrogenase C-Reactive Protein Total Protein 5.8 L Albumin 3.5 L Urine Creatinine Urine Total Protein Coronavirus (PCR) 04/19/22 04/19/22 04/19/22 11:25 17:35 21:56 WBC RBC Hgb Hct RDW Plt Count Lymph % (Auto) Lymph # (Auto) Seg Neutrophils % Seg Neuts % (Manual) Lymphocytes % (Manual) Seg Neutrophils # Seg Neutrophils # Man Lymphocytes # (Manual) D-Dimer ABG pH ABG pO2 ABG HCO3 ABG O2 Saturation ABG Base Excess ABG Hemoglobin VBG pH Oxyhemoglobin Sodium Potassium Chloride Carbon Dioxide BUN Creatinine Glucose POC Glucose 137 H 168 H 188 H Lactic Acid Calcium Phosphorus Magnesium Ferritin Total Bilirubin Direct Bilirubin AST ALT Ammonia Lactate Dehydrogenase C-Reactive Protein Total Protein Albumin Urine Creatinine Urine Total Protein Coronavirus (PCR) 04/19/22 04/20/22 04/20/22 22:32 01:10 04:17 WBC RBC Hgb Hct RDW Plt Count Lymph % (Auto) Lymph # (Auto) Seg Neutrophils % Seg Neuts % (Manual) Lymphocytes % (Manual) Seg Neutrophils # Seg Neutrophils # Man Lymphocytes # (Manual) D-Dimer ABG pH ABG pO2 ABG HCO3 31.9 H ABG O2 Saturation ABG Base Excess 5.7 H ABG Hemoglobin 10.3 L VBG pH Oxyhemoglobin 94.6 L Sodium 151 H D Potassium Chloride Carbon Dioxide BUN Creatinine Glucose POC Glucose Lactic Acid Calcium Phosphorus Magnesium Ferritin Total Bilirubin Direct Bilirubin AST ALT Ammonia Lactate Dehydrogenase C-Reactive Protein Total Protein Albumin Urine Creatinine 28.3 H Urine Total Protein Coronavirus (PCR) 04/20/22 04/20/22 04/20/22 06:00 06:00 06:29 WBC 18.7 H RBC 3.58 L Hgb Hct RDW 16.4 H Plt Count 130 L Lymph % (Auto) Lymph # (Auto) Seg Neutrophils % Seg Neuts % (Manual) Lymphocytes % (Manual) Seg Neutrophils # Seg Neutrophils # Man Lymphocytes # (Manual) D-Dimer ABG pH ABG pO2 ABG HCO3 ABG O2 Saturation ABG Base Excess ABG Hemoglobin VBG pH Oxyhemoglobin Sodium 156 H Potassium Chloride 118.3 H Carbon Dioxide 34 H BUN 52 H Creatinine Glucose 246 H POC Glucose 233 H Lactic Acid Calcium Phosphorus Magnesium Ferritin Total Bilirubin Direct Bilirubin AST ALT Ammonia Lactate Dehydrogenase C-Reactive Protein Total Protein Albumin Urine Creatinine Urine Total Protein Coronavirus (PCR) 04/20/22 04/20/22 04/21/22 11:12 Unknown 00:09 WBC RBC Hgb Hct RDW Plt Count Lymph % (Auto) Lymph # (Auto) Seg Neutrophils % Seg Neuts % (Manual) Lymphocytes % (Manual) Seg Neutrophils # Seg Neutrophils # Man Lymphocytes # (Manual) D-Dimer ABG pH ABG pO2 ABG HCO3 ABG O2 Saturation ABG Base Excess ABG Hemoglobin VBG pH Oxyhemoglobin Sodium 155 H Potassium Chloride Carbon Dioxide BUN Creatinine Glucose POC Glucose 224 H 205 H Lactic Acid Calcium Phosphorus Magnesium Ferritin Total Bilirubin Direct Bilirubin AST ALT Ammonia Lactate Dehydrogenase C-Reactive Protein Total Protein Albumin Urine Creatinine Urine Total Protein Coronavirus (PCR) 04/21/22 04/21/22 04/21/22 02:00 04:30 04:30 WBC 14.8 H RBC Hgb Hct RDW 15.9 H Plt Count 109 L Lymph % (Auto) Lymph # (Auto) Seg Neutrophils % Seg Neuts % (Manual) Lymphocytes % (Manual) Seg Neutrophils # Seg Neutrophils # Man Lymphocytes # (Manual) D-Dimer ABG pH ABG pO2 ABG HCO3 ABG O2 Saturation ABG Base Excess ABG Hemoglobin VBG pH Oxyhemoglobin Sodium 156 H 155 H Potassium Chloride 117.4 H Carbon Dioxide BUN 46 H Creatinine Glucose 178 H POC Glucose Lactic Acid Calcium Phosphorus Magnesium Ferritin Total Bilirubin Direct Bilirubin AST ALT Ammonia Lactate Dehydrogenase C-Reactive Protein Total Protein Albumin Urine Creatinine Urine Total Protein Coronavirus (PCR) 04/21/22 04/21/22 04/21/22 11:46 13:12 16:59 WBC RBC Hgb Hct RDW Plt Count Lymph % (Auto) Lymph # (Auto) Seg Neutrophils % Seg Neuts % (Manual) Lymphocytes % (Manual) Seg Neutrophils # Seg Neutrophils # Man Lymphocytes # (Manual) D-Dimer ABG pH ABG pO2 ABG HCO3 ABG O2 Saturation ABG Base Excess ABG Hemoglobin VBG pH Oxyhemoglobin Sodium 153 H Potassium Chloride Carbon Dioxide BUN Creatinine Glucose POC Glucose 113 H 112 H Lactic Acid Calcium Phosphorus Magnesium Ferritin Total Bilirubin Direct Bilirubin AST ALT Ammonia Lactate Dehydrogenase C-Reactive Protein Total Protein Albumin Urine Creatinine Urine Total Protein Coronavirus (PCR) 04/21/22 04/21/22 04/21/22 20:13 20:57 23:50 WBC RBC Hgb Hct RDW Plt Count Lymph % (Auto) Lymph # (Auto) Seg Neutrophils % Seg Neuts % (Manual) Lymphocytes % (Manual) Seg Neutrophils # Seg Neutrophils # Man Lymphocytes # (Manual) D-Dimer ABG pH ABG pO2 ABG HCO3 ABG O2 Saturation ABG Base Excess ABG Hemoglobin VBG pH Oxyhemoglobin Sodium 152 H Potassium Chloride Carbon Dioxide BUN Creatinine Glucose POC Glucose 128 H 146 H Lactic Acid Calcium Phosphorus Magnesium Ferritin Total Bilirubin Direct Bilirubin AST ALT Ammonia Lactate Dehydrogenase C-Reactive Protein Total Protein Albumin Urine Creatinine Urine Total Protein Coronavirus (PCR) 04/22/22 04/22/22 04/22/22 02:30 02:30 05:06 WBC 14.8 H RBC 3.41 L Hgb 9.9 L Hct RDW 16.2 H Plt Count 101 L Lymph % (Auto) Lymph # (Auto) Seg Neutrophils % Seg Neuts % (Manual) Lymphocytes % (Manual) Seg Neutrophils # Seg Neutrophils # Man Lymphocytes # (Manual) D-Dimer ABG pH ABG pO2 ABG HCO3 ABG O2 Saturation ABG Base Excess ABG Hemoglobin VBG pH Oxyhemoglobin Sodium 150 H Potassium Chloride 114.1 H Carbon Dioxide BUN 43 H Creatinine Glucose 186 H POC Glucose 167 H Lactic Acid Calcium Phosphorus Magnesium Ferritin Total Bilirubin Direct Bilirubin AST 46 H ALT 105 H Ammonia Lactate Dehydrogenase C-Reactive Protein Total Protein 4.9 L Albumin 3.2 L Urine Creatinine Urine Total Protein Coronavirus (PCR) 04/22/22 04/22/22 04/23/22 20:49 23:33 04:00 WBC 17.0 H RBC Hgb Hct RDW 16.2 H Plt Count 116 L Lymph % (Auto) Lymph # (Auto) Seg Neutrophils % Seg Neuts % (Manual) Lymphocytes % (Manual) Seg Neutrophils # Seg Neutrophils # Man Lymphocytes # (Manual) D-Dimer ABG pH ABG pO2 ABG HCO3 ABG O2 Saturation ABG Base Excess ABG Hemoglobin VBG pH Oxyhemoglobin Sodium Potassium Chloride Carbon Dioxide BUN Creatinine Glucose POC Glucose 208 H 210 H Lactic Acid Calcium Phosphorus Magnesium Ferritin Total Bilirubin Direct Bilirubin AST ALT Ammonia Lactate Dehydrogenase C-Reactive Protein Total Protein Albumin Urine Creatinine Urine Total Protein Coronavirus (PCR) 04/23/22 04/23/22 04/24/22 04:00 07:00 03:46 WBC 14.5 H RBC 3.34 L Hgb 9.6 L Hct 30.2 L RDW 16.8 H Plt Count 121 L Lymph % (Auto) Lymph # (Auto) Seg Neutrophils % Seg Neuts % (Manual) Lymphocytes % (Manual) Seg Neutrophils # Seg Neutrophils # Man Lymphocytes # (Manual) D-Dimer ABG pH ABG pO2 ABG HCO3 ABG O2 Saturation ABG Base Excess ABG Hemoglobin VBG pH Oxyhemoglobin Sodium 155 H Potassium Chloride 118.1 H Carbon Dioxide BUN 52 H Creatinine 1.3 H Glucose 223 H POC Glucose Lactic Acid Calcium Phosphorus Magnesium Ferritin Total Bilirubin Direct Bilirubin AST ALT Ammonia Lactate Dehydrogenase C-Reactive Protein Total Protein Albumin Urine Creatinine Urine Total Protein Coronavirus (PCR) Positive A 04/24/22 04/24/22 04:00 04:41 WBC RBC Hgb Hct RDW Plt Count Lymph % (Auto) Lymph # (Auto) Seg Neutrophils % Seg Neuts % (Manual) Lymphocytes % (Manual) Seg Neutrophils # Seg Neutrophils # Man Lymphocytes # (Manual) D-Dimer ABG pH ABG pO2 92.6 H ABG HCO3 27.5 H ABG O2 Saturation ABG Base Excess ABG Hemoglobin 9.6 L VBG pH Oxyhemoglobin Sodium 149 H Potassium Chloride 114.0 H Carbon Dioxide BUN 48 H Creatinine Glucose 145 H POC Glucose Lactic Acid Calcium Phosphorus Magnesium Ferritin Total Bilirubin Direct Bilirubin AST ALT Ammonia Lactate Dehydrogenase C-Reactive Protein Total Protein Albumin Urine Creatinine Urine Total Protein Coronavirus (PCR)
[2022-04-24] MEDS ORDERED: WATER FOR IRRIG STERILE 250 ML BOTTLE IR ONE (09:44)
[2022-04-24] MEDS: HEPARIN 5,000 UNIT/1 ML VIAL SUB-Q SCH ×2 (10:25→21:51)
[2022-04-24] MEDS: FAMOTIDINE 20 MG TAB FEEDTUBE SCH ×2 (10:25→21:51)
[2022-04-24] MEDS: SENNOSIDES/DOCUSATE SODIUM 8.6/50 MG TAB FEEDTUBE SCH ×2 (10:25→21:51)
--- NOTE | 2022-04-24 11:01 | Anesthesia Consultation ---
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
--- NOTE | 2022-04-24 11:02 | Anesthesia Day of Surgery ---
Anesthesia Day of Surgery - Day of Surgery Patient Examined: Yes Patient H&P Reviewed: Yes Patient is NPO: Yes Hood's Test: N/A
[2022-04-24] MEDS ORDERED: fentaNYL 100 MCG/2 ML INJ ONE (11:09)
[2022-04-24] MEDS ORDERED: ROCURONIUM 50 MG/5 ML INJ IV ONE (11:09)
[2022-04-24] MEDS ORDERED: LIDOCAINE MPF (2%) 20 MG/1 ML VIAL 5 ML ONE (11:09)
[2022-04-24] MEDS ORDERED: ePHEDrine SULFATE 50 MG/1 ML INJ ONE (11:09)
--- NOTE | 2022-04-24 11:57 | Progress Note ---
Assessment and Plan Assessment: Acute Renal Failure likely secondary to Ischemic ATN due to Sepsis and Hypotenison COVID positive Sepsis Hypotension Diabetes Mellitus/DKA Acute Respiratory Failure Hypokalemia, now Hyperkalemic Metabolic Acidosis Hypophosphatemia Plan: Renal labs reviewed. Serum creatinine 1.1 today, yesterday's was 1.3, stable. UOP 2400 ml Renal ultrasound- no obstruction CXR yesterday- slight improvement in bilateral airspace disease Most recent serum Na level was 149 today, prior was 155 On free water flush 400 ml every 4 hours via tube feeds S/P 1/2NS@ 75 ml/hr x 1 bag yesterday. Receiving D5W x 1 bag prior to surgery today Checking serum Na level q 6 hrs for now, goal is to decrease serum Na level < 10 mmol/l within 24 hrs If sodium continues to rise then can consider ruling out Diabetes Insipidus whether nephrogenic vs central and consider ADH challenge test for diagnostic purposes COVID positive-as per ID Renally dose medications Obtain daily weights Monitor I/O's daily No acute indication for [facility] Plan of care reviewed by Dr. Lang Subjective Date of service: 04/24/22 Principal diagnosis: encephalopathy Interval history: Patient with active COVID-19 infection, Intubated. For Trach and PEG today. Objective - Vital Signs Vital signs: Vital Signs - 12hr 04/24/22 04/24/22 04/24/22 00:00 00:01 00:15 Temperature Pulse Rate 108 H 108 H 107 H Pulse Rate [ From Monitor] Respiratory 19 16 Rate Blood Pressure 123/62 148/72 123/62 O2 Sat by Pulse 100 100 100 Oximetry 04/24/22 04/24/22 04/24/22 00:31 00:45 01:01 Temperature Pulse Rate 107 H 105 H 107 H Pulse Rate [ From Monitor] Respiratory 18 18 19 Rate Blood Pressure 123/62 144/74 144/74 O2 Sat by Pulse 100 100 100 Oximetry 04/24/22 04/24/22 04/24/22 01:15 01:31 01:45 Temperature Pulse Rate 106 H 106 H 104 H Pulse Rate [ From Monitor] Respiratory 18 18 17 Rate Blood Pressure 133/76 133/76 131/69 O2 Sat by Pulse 100 100 100 Oximetry 04/24/22 04/24/22 04/24/22 02:01 02:15 02:31 Temperature Pulse Rate 102 H 102 H 103 H Pulse Rate [ From Monitor] Respiratory 18 18 18 Rate Blood Pressure 131/69 121/73 121/73 O2 Sat by Pulse 100 100 100 Oximetry 04/24/22 04/24/22 04/24/22 02:45 03:01 03:08 Temperature Pulse Rate 101 H 100 H 102 H Pulse Rate [ 101 H From Monitor] Respiratory 18 18 20 Rate Blood Pressure 124/67 124/67 O2 Sat by Pulse 100 100 100 Oximetry 04/24/22 04/24/22 04/24/22 03:15 03:31 03:45 Temperature Pulse Rate 100 H 100 H 100 H Pulse Rate [ From Monitor] Respiratory 18 18 18 Rate Blood Pressure 114/69 114/69 125/69 O2 Sat by Pulse 100 100 100 Oximetry 04/24/22 04/24/22 04/24/22 03:50 04:00 04:01 Temperature 98.4 F Pulse Rate 102 H 101 H Pulse Rate [ From Monitor] Respiratory 18 Rate Blood Pressure 138/74 125/69 O2 Sat by Pulse 100 100 Oximetry 04/24/22 04/24/22 04/24/22 04:15 04:31 04:45 Temperature Pulse Rate 101 H 106 H 103 H Pulse Rate [ From Monitor] Respiratory 18 17 16 Rate Blood Pressure 138/74 138/74 138/74 O2 Sat by Pulse 100 100 100 Oximetry 04/24/22 04/24/22 04/24/22 05:01 05:15 05:31 Temperature Pulse Rate 101 H 101 H 101 H Pulse Rate [ From Monitor] Respiratory 18 18 18 Rate Blood Pressure 138/74 146/73 146/73 O2 Sat by Pulse 100 100 100 Oximetry 04/24/22 04/24/22 04/24/22 05:45 06:01 06:15 Temperature Pulse Rate 98 H 101 H 101 H Pulse Rate [ From Monitor] Respiratory 18 18 18 Rate Blood Pressure 145/72 145/72 133/73 O2 Sat by Pulse 100 100 100 Oximetry 04/24/22 04/24/22 04/24/22 06:31 06:45 07:01 Temperature Pulse Rate 101 H 100 H 98 H Pulse Rate [ From Monitor] Respiratory 18 18 18 Rate Blood Pressure 133/73 140/70 140/70 O2 Sat by Pulse 100 100 100 Oximetry 04/24/22 04/24/22 04/24/22 07:15 07:20 07:31 Temperature Pulse Rate 98 H 97 H 100 H Pulse Rate [ From Monitor] Respiratory 18 18 Rate Blood Pressure 149/72 149/72 149/72 O2 Sat by Pulse 100 100 100 Oximetry 04/24/22 04/24/22 04/24/22 07:45 08:00 08:01 Temperature 97.4 F L Pulse Rate 101 H 99 H 101 H Pulse Rate [ 99 H From Monitor] Respiratory 18 18 15 Rate Blood Pressure 139/73 139/73 O2 Sat by Pulse 100 100 100 Oximetry 04/24/22 04/24/22 04/24/22 08:15 08:31 08:45 Temperature Pulse Rate 99 H 98 H 99 H Pulse Rate [ From Monitor] Respiratory 18 18 18 Rate Blood Pressure 134/75 134/75 124/71 O2 Sat by Pulse 100 100 100 Oximetry 04/24/22 04/24/22 04/24/22 09:01 09:15 09:31 Temperature Pulse Rate 102 H 97 H 94 H Pulse Rate [ From Monitor] Respiratory 18 18 18 Rate Blood Pressure 124/71 124/73 124/73 O2 Sat by Pulse 100 100 100 Oximetry 04/24/22 04/24/22 04/24/22 09:45 10:01 10:15 Temperature Pulse Rate 95 H 94 H 95 H Pulse Rate [ From Monitor] Respiratory 17 18 18 Rate Blood Pressure 124/67 124/67 120/75 O2 Sat by Pulse 100 100 100 Oximetry 04/24/22 11:01 Temperature Pulse Rate 94 H Pulse Rate [ From Monitor] Respiratory Rate Blood Pressure 116/79 O2 Sat by Pulse 100 Oximetry - Lab 04/24/22 03:46 04/24/22 04:00 Most recent lab results ABG pH 7.378 pH Units (7.350-7.450) 04/24/22 04:41 ABG pCO2 47.8 mm Hg 04/24/22 04:41 ABG pO2 92.6 mm Hg (80.0-90.0) H 04/24/22 04:41 ABG HCO3 27.5 mmol/L (20.0-26.0) H 04/24/22 04:41 ABG O2 Saturation 97.1 % (95.0-99.0) 04/24/22 04:41 Calcium 8.4 mg/dL (8.4-10.2) 04/24/22 04:00 Phosphorus 3.60 mg/dL (2.5-4.5) 04/14/22 07:28 Magnesium 2.90 mg/dL (1.7-2.3) H 04/14/22 07:28 Urine Creatinine 28.3 mg/dL (0.1-20.0) H 04/19/22 22:32 Urine Sodium 89 mmol/L 04/19/22 22:32 Urine Total Protein 172 mg/dL (5-11.8) H 04/10/22 14:50 Medications & Allergies - Medications Allergies/Adverse Reactions: Allergies No Known Allergies Allergy (Verified 04/09/22 13:44) Home Medications: Home Medications Medication Instructions Recorded Confirmed Last Taken Type Gabapentin 600 mg PO TID 04/23/22 04/23/22 Unknown History PARoxetine 10 mg PO QDAY 04/23/22 04/23/22 Unknown History acetaZOLAMIDE 250 mg PO QDAY 04/23/22 04/23/22 Unknown History cloNIDine 0.1 mg PO BID 04/23/22 04/23/22 Unknown History metFORMIN 500 mg PO BID 04/23/22 04/23/22 Unknown History Active Medications: Generic Name Dose Route Start Last Admin Trade Name Freq PRN Reason Stop Dose Admin Acetaminophen 650 mg 04/09/22 18:11 04/22/22 20:06 Acetaminophen 325 Mg Tab PO 650 mg Q4H PRN Administration Pain MILD(1-3)/Fever >100.5/CARCAMO Dextrose 0 ml 04/10/22 00:40 Dextrose 50% In Water (25gm) 50 Ml Syringe IV Q30MIN PRN Hypoglycemia Protocol Famotidine 20 mg 04/22/22 10:00 04/24/22 10:25 Famotidine 20 Mg Tab FEEDTUBE Not Given BID JO ANN Fentanyl 50 mcg 04/15/22 09:25 04/22/22 20:17 Fentanyl 100 Mcg/2 Ml Inj IV 50 mcg Q10MIN PRN Administration ANALGESIA Heparin Sodium (Porcine) 5,000 unit 04/17/22 10:00 04/24/22 10:25 Heparin 5,000 Unit/1 Ml Vial SUB-Q Not Given Q12HR JO ANN Fentanyl Citrate 2,000 mcg in 100 mls @ 4.155 mls/hr 04/15/22 10:00 04/24/22 00:06 Fentanyl Drip Premix IV 1.06 mcg/kg/hr TITR JO ANN 4.4 mls/hr Titration Protocol 1 MCG/KG/HR Meropenem/Sodium Chloride 1 gram in 100 mls @ 100 mls/hr 04/22/22 12:00 04/24/22 03:04 Merrem/Ns 1 Gram/100 Ml IV 100 mls/hr Q8H JO ANN Administration Protocol Dextrose 1,000 mls @ 50 mls/hr 04/23/22 23:45 04/24/22 00:06 D5w IV 04/24/22 19:44 50 mls/hr DIRECT JO ANN Administration Insulin Glargine 50 units 04/23/22 22:00 04/23/22 21:19 Insulin Glargine 100 Units/Ml SUB-Q 50 units QHS JO ANN Administration Insulin Human Lispro 0 unit 04/18/22 12:00 04/24/22 05:48 Insulin Lispro 100 Unit/Ml SUB-Q Not Given Q6HR [facility] Protocol Metoprolol Tartrate 5 mg 04/22/22 17:01 04/22/22 17:19 Metoprolol Tartrate 5 Mg/5 Ml Inj IV 5 mg Q6H PRN Administration HR >/= 120 Ondansetron HCl 4 mg 04/09/22 18:11 Ondansetron 4 Mg/2 Ml Inj IV Q8H PRN Nausea And Vomiting Senna/Docusate Sodium 2 tab 04/15/22 14:00 04/24/22 10:25 Sennosides/Docusate Sodium 8.6/50 Mg Tab FEEDTUBE Not Given BID JO ANN Sodium Chloride 10 ml 04/09/22 22:00 04/24/22 10:26 Sodium Chloride 0.9% 10 Ml Flush Syringe IV 10 ml BID JO ANN Administration Sodium Chloride 10 ml 04/09/22 18:11 Sodium Chloride 0.9% 10 Ml Flush Syringe IV PRN PRN LINE FLUSH
--- NOTE | 2022-04-24 13:05 | Operative Report ---
Operative Report Operative Report: Date of surgery: 04/24/2022 Preoperative diagnosis: Vent dependence Postoperative diagnosis: Same as above Procedure: Percutaneous tracheostomy Surgeon: Dr. Shen Hot Dimpling Machine Operator: Dr. Hodge Anesthesia: Geta, local Findings: Good placement of tracheostomy as visualized by fiberoptic bronchoscopy EBL: LESS than 5 cc Specimen: None Complications: None Disposition: Stable to ICU HPI and indication: Patient is a 77-year-old -Prydeinig lady with ventilator dependence and mental status changes. Procedure in detail: The patient was identified in the ICU and brought down to the operating room and positioned in supine position in the hospital bed. Consent was verified on the chart timeout was performed. The neck was prepped and draped in usual sterile fashion. Anesthesia was administered. A shoulder roll was placed, with the patient's neck mildly hyperextended. Dr. Hodge performed fiberoptic bronchosc opy throughout the entire procedure. The fiberoptic bronchoscope was inserted through the endotracheal tube via the adapter and the trachea examined. The trachea was unremarkable, and the 7.5 ET tube was approximately 3 cm from sharon at 24 cm at the lip. 1% lidocaine was infiltrated into the skin and subcutaneous tissue approximately 2 fingerbreadths above the sharon. A 2 cm incision was made in a horizontal fashion using a 15 blade. Using a hemostat the soft tissues were bluntly dissected until the trachea was encountered. The ET tube was then pulled back slowly to 16 cm. Using the introducer needle, the trachea was entered under direct visualization. The wire was passed down the trachea towards the sharon. Introducer needle was then removed. The trachea was then serially dilated, after which a 8 [place] tracheostomy tube was inserted. The balloon was visualized via fiberoptic bronchoscopy. The balloon was inflated, patient placed back on ventilator. There was end-tidal CO2 detected and tidal volumes assessed which were satisfactory. The bronchoscope was then placed through the tracheostomy and showed good positioning of the tracheostomy approximately 4 to 5 cm above the sharon and no bleeding. A drain sponge was placed between the skin and tracheostomy. The tracheostomy was secured to the patient's neck using a tracheostomy strap. A post op chest x-ray is pending. The patient tolerated the procedure well. All sharps were disposed of appropriately. The patient was taken back to the ICU in stable condition.
--- NOTE | 2022-04-24 13:14 | Operative Report ---
Operative Report Operative Report: Date of Operation: 04/24/2022 Preoperative diagnosis: Ventilator -dependent respiratory failure Operative diagnosis: Same as above Procedure performed: Fiber optic bronchoscopy Surgeon: Jacque Hodge DO Anesthesia: GETA Findings: Unremarkable airway Complications: None DisPosition: Stable in ICU HPI and indication: Patient is a 77-year-old female brought to the hospital by family for altered mental status. Patient is intubated for airway protection and cannot be weaned from the ventilator. Critical care attending recommended tracheostomy and PEG tube and surgery was consulted. After discussion with her family by Dr. Shen, consent was obtained. Procedure in detail: The patient was identified in her bed in the ICU and brought to the operating room. After anesthesia was induced, the neck was prepped and draped in the usual sterile fashion and a timeout was performed. The fiberoptic bronchoscope was passed through the endotracheal tube adapter. The trachea and sharon were visualized and unremarkable. At this point, the endotracheal tube was slowly withdrawn to 16cm. Dr. Shen placed the tracheostomy tube under direct visualization by fiberoptic bronchoscopy. Please see separate operative note for more details on Tracheostomy placement. Once the tracheostomy tube was placed, the bronchoscope was withdrawn from the endotracheal tube and placed through the tracheostomy tube. The tracheostomy tube appeared to be in good position approximately 3 cm above the sharon. The bronchoscope was then withdrawn. Patient tolerated the procedure well.
--- NOTE | 2022-04-24 13:20 | Operative Report ---
Operative Report Operative Report: Date of surgery: 05/13/2022 Preoperative diagnosis: VDRF Postoperative diagnosis: same as above Procedure: PEG tube placement C0-Surgeon: Jacque Hodge DO Co- surgeon: Kenia Shen MD Anesthesia: GETA, local Findings: Stress gastritis in the body of the stomach without active bleeding EBL: 5cc Specimen: None Complications: None Disposition: Stable to ICU HPI and indication: Patient is a 77-year-old female who was brought to the hospital by the family for altered mental status. She was intubated for airway protection and has not been able to be extubated, wean from vent. Critical care attending recommended tracheostomy and PEG tube. After discussion with the family by Dr. Shen, consent was obtained. Procedure in detail: Timeout was performed at the start of the procedure. A mouthguard was placed through which a flexible endoscope was passed through the mouth and into the esophagus. The NG tube was visualized along the way. The endoscope was advanced through the esophagus and into the stomach. The stomach had evidence of stress gastritis in the body without active bleeding. The stomach was insufflated and transillumination performed. An area of transillumination was visualized in the left upper quadrant and marked. The skin was then prepped and draped in usual sterile fashion. Local anesthetic was infiltrated to the skin at the intended incision site. A small incision was made in the skin using an 11 blade. An introducer needle/breakaway sheath was inserted directly through this incision into the stomach under direct endoscopic visualization. The needle was removed. The wire was passed and grasped with a snare by the co-surgeon and the wire pulled along with the endoscope through the mouth. The PEG tube was assembled onto the wire and pulled back through the mouth and down into the stomach. The outer bumper was at 5-6 cm at the skin. The PEG tube was cut to size and assembled in the usual fashion. A [place] drain apparatus was applied between the skin and the PEG tube. I then reinserted the endoscope into the mouth and down into the stomach. The PEG tube inner bumper was seen to lay flush against the gastric mucosa without tension. There is no active bleeding. The pylorus was entered and the first portion of the duodenum was unremarkable. The scope was then withdrawn back into the stomach and retroflexed. No additional acute findings. The NG tube was withdrawn. The stomach was then desufflated and the endoscope withdrawn. The patient tolerated the procedure well. All sharps, instruments, sponges were accounted for at the end of the case. Patient was taken back to the ICU in stable condition.
[2022-04-24] MEDS ORDERED: fentaNYL 100 MCG/2 ML INJ IV PRN (13:38)
--- NOTE | 2022-04-24 13:40 | Progress Note ---
<ERIN VICENTE - Last Filed: 04/24/22 14:33> Assessment and Plan Assessment and plan: This is a 77-year-old female with DM and ovarian cancer in remission admitted for septic shock secondary to COVID-19 pneumonia, acute kidney injury, acute hypoxic respiratory failure and currently in multiorgan failure Neuro: Acute metabolic encephalopathy, myoclonic jerks -Myoclonic jerking aborted with Ativan early in admission but none noted since -Avoid delirium -Reorientation as needed -Maintain sleep-wake cycle -Neurology consulted, appreciate recommendations -Initial CT head showed no acute abnormality -EEG absence of definite epileptiform abnormalities would not rule out the possibility of epilepsy, compatible with moderate to moderately severe diffuse encephalopathy -Repeat CTH shows no acute abnormality -Abnormal EEG with findings consistent with possible encephalopathic process and/or drug effect, no epileptiform discharges appreciated -MRI brain limited by motion, mild microvascular angiopathy and cerebral atrophy without clear evidence of acute infarction Cardiac: NAD -Blood pressure monitoring per protocol -s/p vasopressor support with Levophed, dobutamine, vasopressin -MAP goal greater than 65 -Echocardiogram shows LVEF 55 to 60%, normal bivalve function, mildly dilated right ventricle Respiratory: Acute hypoxic respiratory failure, ARDS -CCM consulted, appreciate recommendations -Intubated in the emergency department 04/09 with 7.00 ETT at 22 the lips -A.m. vent settings: Assist-control rate 18, tidal volume 400, PEEP 6, FiO2 40% -See RT notes for titration -General surgery consulted for trach/peg->trach 04/24 -VAP bundle -SPO2 monitoring GI: Constipation,Transaminitis -24 hours +343 ml -PPI -NTR consult for tube feedings -FWF -s/p peg / -BR: [place] S -Trend LFTs -Abdominal ultrasound shows hepatomegaly and hepatic steatosis, cholelithiasis without sonographic evidence of acute cholecystitis -Abdomen/pelvis CT shows changes suggestive of volume overload with diffuse anasarca and small amount of ascites scattered throughout the abdomen and pelvis, cholelithiasis/gallbladder sludge noted on early abdominal ultrasound, prominent bibasilar pleuralparenchymal disease -Lactulose q2 : Acute kidney injury likely secondary to ischemic acute tubular necrosis, hypernatremia -Nephrology consulted, appreciate recommendations -Strict intake and output -Renally dose medications -Avoid nephrotoxic medications -Daily weights -FeNa calculated at 0.13 -FWF -Renal ultrasound shows mild echogenic kidneys which can be seen in medical renal disease, no hydronephrosis, small amount of free fluid in the abdomen -s/p IV sodium bicarbonate drip and D5W -s/p D5W X 2 bags -04/13 lasix x1 -MIVF per nephrology -Trend BMP ID: Septic shock secondary to COVID-19 pneumonia, lactic acidosis -Infectious disease consulted, appreciate recommendations -Admit CXR showed bilateral air space opacities -Covid 19 PCR (+) -Repeat covid PCR positive -s/p Rocephin (04/11-04/15) and vancomycin (04/11-04/14) -abx per ID: cefepime (04/16-04/22), changed to meropenem (04/22) given new fevers -Decadron 8 mg daily for 10 days (04/09-04/18) -Per ID: Due to renal failure, not a candidate for remdesivir -S/p Actemra 04/10 -Contact/droplet precautions -f/u blood culture -Monitor WBC and temperature curve -Trend COVID-19 inflammatory markers Endo: s/p DKA, h/o DM -S/p insulin drip -Avoid hypoglycemia -SSI and long-acting insulin, titrate as needed -Accu-Cheks every 6 Heme: Leukocytosis, elevated Ddimer -BLE dopplar US shows no DVT -Trend CBC -Transfuse hemoglobin less than 7 -Lovenox subcu -Monitor for signs of bleeding -SCDs to BLE while in bed The high probability of a clinically significant, sudden or life threatening deterioration of the [multi] system(s) required my full and direct attention, intervention and personal management. The aggregate critical care time was [60] minutes. This time is in addition to time spent performing reported procedures but includes the following: [x] Data Review and interpretation [x] Patient assessment and monitoring of vital signs [x] Documentation [x] Medication orders and management Disposition Plan: icu Total Time Spent with Patient (Minutes): 60 History Interval history: This is a 77-year-old female with DM and ovarian cancer in remission s/p partial hysterectomy and oophorectomy presented to emergency department on 04/09 with altered mental status, weakness, shortness of breath over the past week with worsening symptoms on 04/09. Of note patient was not vaccinated for COVID-19. In the emergency department patient was very hypoxic on arrival and was placed on 100% nonrebreather, patient was tachypneic and hypotensive and initially was alert and oriented however became lethargic and was intubated for airway protection. Work-up in the emergency department revealed leukocytosis, acute kidney injury, hypokalemia, hyperglycemia. Patient was admitted to the hospitalist service with consults to [facility] with septic shock, COVID-19 PUI, hypokalemia, acute kidney injury, acute metabolic encephalopathy, bilateral pneumonia, lactic acidosis and acute hypoxic respiratory failure. Hospital course to date: 04/10: Patient noted to have myoclonic jerking this morning and was given 2 mg of Ativan which aborted the jerking. Neurology was consulted and MRI and EEG were ordered. Patient admits to [facility] for MRI at this time. Patient is hypotensive and currently on Levophed, vasopressin and dobutamine. Nephrology consulted for renal failure. Remains on insulin drip and was placed on a bic arbonate drip this morning. Infectious disease consulted who added vancomycin and ordered follow-up labs. Dr. Craig had a conversation with family about prognosis and given multisystem organ failure. We will continue supportive care. 04/11/22-patient seen at bedside. T/V orally intubated. No purposeful response on assessment. make periodic jerking movement. EEG done today-will f/u with result. BICarb d/c -acidosis has improved-started on D5 1/5 NS. Reviewed specialist note and reces-renal US-no acute finding. Continue Pressors for MAPs >65. Wean as tolerated. Bicarb-d/c and start D5W. 04/12: Patient is following commands, nutrition consulted for tube feedings, PEEP decreased with possible PSV in the a.m., insulin drip discontinued and SSI/basal dose insulin started. [facility] will update son. 04/13: Renal function continues to improve, intermittently following commands, [facility] ordered 1 x 40 mg of Lasix repeat CXR in the a.m. Tolerating tube feedings. 04/14: PEEP increased per [facility], will not repeat Lasix again due to increasing renal functions. Ordered CT head. Overnight patient was tachypneic and agitated and Precedex drip was started. We will start Seroquel and wean Precedex as tolerated. 04/15: IVF started by nephro yesterday for hypernatremia, awaiting BMP for today to result. Overnight patient was started on propofol and has propofol and precedex infusing. Fentanyl gtt ordered and precedex gtt discontinued. 04/16: Patient remains on the vent, back on sedation overnight due to vent unsynchrony. Remains encephalopathic, EEG pending, Neurology reconsulted. Continue FWF Q4hrs for hypernatremia and SSI and basal insulin adjusted for better glycemic control. Worsening leukocytosis noted, patient remains afebrile. Patient completed X5 of IV Abx and still on IV steroids, will continue to monitor for now. ID is also following. D/C CCM plan for family phone conference with patient's son tomorrow to discuss goal of care. 04/17: Remains on the vent, mentation is unchanged, MRI and Neurology recs noted. FWF increased due to persistent hypernatremia, X1 dose of kayexalate was also given for hyperkalemia, renal function is improvement. Continue to monitor renal function and electrolytes. Insulin was adjusted for hyperglycemia. 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 04/18: With worsening hypernatremia this am despite Q4hrs FWF and X1 L of D5 per Nephro. Unclear etiology at this time. Will continue FWF for now and Nephro is also following. ABD US pending for elevated LTFs, will continue to trend LFTs. Still hyperglycemic, insulin adjusted. Patient's family opted for trach and PEG. General Surgery consulted. 04/19: Hypernatremia worsen this am, FWF held due to NPO status. Order placed for D5W X2bags, serial Na ordered. Will also check some urine lytes and serum osmo. CT ado/pelvis and Abd US noted, LFT downtrending. Will continue to trend LFTs. Plan for possible trach and PEG by general Surgery. 04/20: GILES overnight. Hypernatremia improved, continue D5W, FWF, and serial Na check. Possible trach and PEG sometimes next week by general Surgery. 04/21: Vomited this am, TF held, no gastric residual noted. Resume TF and IV Regl an added. Hypernatremia is unchanged continue FWF and serial Na per Nephro. Possible trach and PEG sometimes next week by general Surgery. 04/22: Antibiotics changed to meropenem given fevers, hypernatremia is improving, repeat COVID test ordered for tomorrow. 04/23: possible trach/peg in AM, NPO post MN, renal started on IVF given increase in Na. No acute events overnight 04/24: Repeat COVID-19 PCR positive, trach and PEG today. Was started on D5 W overnight and she was NPO. Will restart tube feedings 4 hours postprocedure. We will remove Cortez catheter, scheduled lactulose starting tomorrow and change fentanyl drip to IV push. Hospitalist Physical - Constitutional Vitals: Temp Pulse Resp BP Pulse Ox 97.4 F L 94 H 18 116/79 100 04/24/22 08:00 04/24/22 11:01 04/24/22 10:15 04/24/22 11:01 04/24/22 11:01 General appearance: Present: no acute distress, well-nourished, obese, other (Intubated ) - EENT Eyes: Present: EOM intact ENT: poor dentition - Neck Neck: Present: normal ROM - Respiratory Respiratory effort: normal Respiratory: bilateral: diminished - Cardiovascular Rhythm: regular Heart Sounds: Present: S1 & S2. Absent: systolic murmur, diastolic murmur - Extremities Extremities: no ischemia, pulses intact, pulses symmetrical, No edema, normal temperature, normal color Peripheral Pulses: within normal limits - Abdominal General gastrointestinal: soft, non-tender, non-distended, normal bowel sounds - Integumentary Integumentary: Present: warm, dry - Psychiatric Psychiatric: other - Neurologic Neurologic: other (does not follow commands, ) HEART Score - HEART Score Age: > 65 Risk factors: 1-2 risk factors Troponin: Troponin T < 0.010 ng/mL (0.00-0.029) 04/09/22 12:52 Troponin: < normal limit - Critical Actions Critical Actions: 4-6 pts:12-16.6% risk of adverse cardiac event. Should be admitted Results - Labs CBC & Chem 7: 04/24/22 03:46 04/24/22 04:00 Labs: Laboratory Last Values WBC 14.5 K/mm3 (4.5-11.0) H 04/24/22 03:46 RBC 3.34 M/mm3 (3.65-5.03) L 04/24/22 03:46 Hgb 9.6 gm/dl (10.1-14.3) L 04/24/22 03:46 Hct 30.2 % (30.3-42.9) L 04/24/22 03:46 MCV 90 fl (79-97) 04/24/22 03:46 MCH 29 pg (28-32) 04/24/22 03:46 MCHC 32 % (30-34) 04/24/22 03:46 RDW 16.8 % (13.2-15.2) H 04/24/22 03:46 Plt Count 121 K/mm3 (140-440) L 04/24/22 03:46 Lymph % (Auto) 5.7 % (13.4-35.0) L 04/12/22 00:01 [place] % (Auto) 4.5 % (0.0-7.3) 04/12/22 00:01 Eos % (Auto) 0.0 % (0.0-4.3) 04/12/22 00:01 Baso % (Auto) 0.2 % (0.0-1.8) 04/12/22 00:01 Lymph # (Auto) 0.9 K/mm3 (1.2-5.4) L 04/12/22 00:01 [place] # (Auto) 0.7 K/mm3 (0.0-0.8) 04/12/22 00:01 Eos # (Auto) 0.0 K/mm3 (0.0-0.4) 04/12/22 00:01 Baso # (Auto) 0.0 K/mm3 (0.0-0.1) 04/12/22 00:01 Add Manual Diff Complete 04/10/22 04:24 Total Counted 100 04/10/22 04:24 Seg Neutrophils % 89.6 % (40.0-70.0) H 04/12/22 00:01 Seg Neuts % (Manual) 94.0 % (40.0-70.0) H 04/10/22 04:24 Band Neutrophils % 0 % 04/10/22 04:24 Lymphocytes % (Manual) 3.0 % (13.4-35.0) L 04/10/22 04:24 Reactive Lymphs % (Man) 0 % 04/10/22 04:24 Monocytes % (Manual) 3.0 % (0.0-7.3) 04/10/22 04:24 Eosinophils % (Manual) 0 % (0.0-4.3) 04/10/22 04:24 Basophils % (Manual) 0 % (0.0-1.8) 04/10/22 04:24 Metamyelocytes % 0 % 04/10/22 04:24 Myelocytes % 0 % 04/10/22 04:24 Promyelocytes % 0 % 04/10/22 04:24 Blast Cells % 0 % 04/10/22 04:24 Nucleated RBC % Not Reportable 04/10/22 04:24 Seg Neutrophils # 14.6 K/mm3 (1.8-7.7) H 04/12/22 00:01 Seg Neutrophils # Man 15.4 K/mm3 (1.8-7.7) H 04/10/22 04:24 Band Neutrophils # 0.0 K/mm3 04/10/22 04:24 Lymphocytes # (Manual) 0.5 K/mm3 (1.2-5.4) L 04/10/22 04:24 Abs React Lymphs (Man) 0.0 K/mm3 04/10/22 04:24 Monocytes # (Manual) 0.5 K/mm3 (0.0-0.8) 04/10/22 04:24 Eosinophils # (Manual) 0.0 K/mm3 (0.0-0.4) 04/10/22 04:24 Basophils # (Manual) 0.0 K/mm3 (0.0-0.1) 04/10/22 04:24 Metamyelocytes # 0.0 K/mm3 04/10/22 04:24 Myelocytes # 0.0 K/mm3 04/10/22 04:24 Promyelocytes # 0.0 K/mm3 04/10/22 04:24 Blast Cells # 0.0 K/mm3 04/10/22 04:24 WBC Morphology Not Reportable 04/10/22 04:24 Hypersegmented Neuts Not Reportable 04/10/22 04:24 Hyposegmented Neuts Not Reportable 04/10/22 04:24 Hypogranular Neuts Not Reportable 04/10/22 04:24 Smudge Cells Not Reportable 04/10/22 04:24 Toxic Granulation Not Reportable 04/10/22 04:24 Toxic Vacuolation Not Reportable 04/10/22 04:24 Dohle Bodies Not Reportable 04/10/22 04:24 Pelger-Huet Anomaly Not Reportable 04/10/22 04:24 Aleja Rods Not Reportable 04/10/22 04:24 Platelet Estimate Consistent w auto 04/10/22 04:24 Clumped Platelets Not Reportable 04/10/22 04:24 Plt Clumps, EDTA Not Reportable 04/10/22 04:24 Large Platelets Not Reportable 04/10/22 04:24 Giant Platelets Rare 04/10/22 04:24 Platelet Satelliting Not Reportable 04/10/22 04:24 Plt Morphology Comment Not Reportable 04/10/22 04:24 RBC Morphology Normal 04/10/22 04:24 Dimorphic RBCs Not Reportable 04/10/22 04:24 Polychromasia Not Reportable 04/10/22 04:24 Hypochromasia Not Reportable 04/10/22 04:24 Poikilocytosis Not Reportable 04/10/22 04:24 Anisocytosis Not Reportable 04/10/22 04:24 Microcytosis Not Reportable 04/10/22 04:24 Macrocytosis Not Reportable 04/10/22 04:24 Spherocytes Not Reportable 04/10/22 04:24 Pappenheimer Bodies Not Reportable 04/10/22 04:24 Sickle Cells Not Reportable 04/10/22 04:24 Target Cells Not Reportable 04/10/22 04:24 Tear Drop Cells Not Reportable 04/10/22 04:24 Ovalocytes Not Reportable 04/10/22 04:24 Helmet Cells Not Reportable 04/10/22 04:24 Lao-Rodeo Bodies Not Reportable 04/10/22 04:24 [place] Rings Not Reportable 04/10/22 04:24 Chani Cells Not Reportable 04/10/22 04:24 Bite Cells Not Reportable 04/10/22 04:24 Crenated Cell Not Reportable 04/10/22 04:24 Elliptocytes Not Reportable 04/10/22 04:24 Acanthocytes (Spur) Not Reportable 04/10/22 04:24 Rouleaux Not Reportable 04/10/22 04:24 Hemoglobin C Crystals Not Reportable 04/10/22 04:24 Schistocytes Not Reportable 04/10/22 04:24 Malaria parasites Not Reportable 04/10/22 04:24 Allan Bodies Not Reportable 04/10/22 04:24 Hem Pathologist Commnt No 04/10/22 04:24 PT 13.5 Sec. (12.2-14.9) 04/24/22 03:46 INR 0.93 (0.87-1.13) 04/24/22 03:46 APTT 25.9 Sec. (24.2-36.6) 04/24/22 03:46 D-Dimer 3804.33 ng/mlDDU (0-234) H 04/17/22 05:12 ABG pH 7.378 pH Units (7.350-7.450) 04/24/22 04:41 ABG pCO2 47.8 mm Hg 04/24/22 04:41 ABG pO2 92.6 mm Hg (80.0-90.0) H 04/24/22 04:41 ABG HCO3 27.5 mmol/L (20.0-26.0) H 04/24/22 04:41 ABG O2 Saturation 97.1 % (95.0-99.0) 04/24/22 04:41 ABG O2 Content 13.0 (0.0-44) 04/24/22 04:41 ABG Base Excess 2.0 mmol/L (-2.0-3.0) 04/24/22 04:41 ABG Hemoglobin 9.6 gm/dl (12.0-16.0) L 04/24/22 04:41 ABG Carboxyhemoglobin 1.5 % (0.0-5.0) 04/24/22 04:41 ABG Methemoglobin 0.6 % (0.0-1.5) 04/24/22 04:41 VBG pH 7.303 (7.320-7.420) L 04/09/22 12:52 Oxyhemoglobin 95.1 % (95.0-99.0) 04/24/22 04:41 FiO2 40 % 04/24/22 04:41 Sodium 149 mmol/L (137-145) H 04/24/22 04:00 Potassium 4.0 mmol/L (3.6-5.0) 04/24/22 04:00 Chloride 114.0 mmol/L (98-107) H 04/24/22 04:00 Carbon Dioxide 27 mmol/L (22-30) 04/24/22 04:00 Anion Gap 12 mmol/L 04/24/22 04:00 BUN 48 mg/dL (7-17) H 04/24/22 04:00 Creatinine 1.1 mg/dL (0.6-1.2) 04/24/22 04:00 Estimated GFR 58 ml/min 04/24/22 04:00 BUN/Creatinine Ratio 44 % 04/24/22 04:00 Glucose 145 mg/dL (65-100) H 04/24/22 04:00 POC Glucose 210 mg/dL (70-105) H 04/22/22 23:33 Osmolality 361 Mosm/kg 04/19/22 12:10 Lactic Acid 2.10 mmol/L (0.7-2.0) H* 04/15/22 12:00 Calcium 8.4 mg/dL (8.4-10.2) 04/24/22 04:00 Phosphorus 3.60 mg/dL (2.5-4.5) 04/14/22 07:28 Magnesium 2.90 mg/dL (1.7-2.3) H 04/14/22 07:28 Ferritin 570.8 ng/mL (10.0-200.0) H 04/18/22 05:41 Total Bilirubin 0.60 mg/dL (0.1-1.2) 04/22/22 02:30 Direct Bilirubin 0.5 mg/dL (0-0.2) H 04/16/22 04:00 Indirect Bilirubin 0.4 mg/dL 04/16/22 04:00 AST 46 units/L (5-40) H 04/22/22 02:30 ALT 105 units/L (7-56) H 04/22/22 02:30 Alkaline Phosphatase 122 units/L (35-129) 04/22/22 02:30 Ammonia 20.0 umol/L (25-60) L 04/09/22 12:52 Lactate Dehydrogenase 1473 units/L (91-180) H 04/18/22 05:41 Troponin T < 0.010 ng/mL (0.00-0.029) 04/09/22 12:52 C-Reactive Protein 0.80 mg/dL (0.00-1.30) 04/18/22 05:41 NT-Pro-B Natriuret Pep 101.1 pg/mL (0-900) 04/09/22 13:45 Total Protein 4.9 g/dL (6.3-8.2) L 04/22/22 02:30 Albumin 3.2 g/dL (3.9-5) L 04/22/22 02:30 Albumin/Globulin Ratio 1.9 % 04/22/22 02:30 Procalcitonin 3.13 ng/mL (<0.15) 04/10/22 11:47 TSH 1.560 mlU/mL (0.270-4.200) 04/09/22 12:52 Free T4 1.33 ng/dL (0.76-1.46) 04/09/22 12:52 Urine Color Yellow (Yellow) 04/09/22 13:24 Urine Turbidity Clear (Clear) 04/09/22 13:24 Urine pH 5.0 (5.0-7.0) 04/09/22 13:24 Ur Specific [place] 1.011 (1.003-1.030) 04/09/22 13:24 Urine Protein 30 mg/dl mg/dL (Negative) 04/09/22 13:24 Urine Glucose (UA) Neg mg/dL (Negative) 04/09/22 13:24 Urine Ketones 20 mg/dL (Negative) 04/09/22 13:24 Urine Blood Neg (Negative) 04/09/22 13:24 Urine Nitrite Neg (Negative) 04/09/22 13:24 Urine Bilirubin Neg (Negative) 04/09/22 13:24 Urine Urobilinogen 4.0 mg/dL (<2.0) 04/09/22 13:24 Ur Leukocyte Esterase Neg (Negative) 04/09/22 13:24 Urine WBC (Auto) 2.0 /HPF (0.0-6.0) 04/09/22 13:24 Urine RBC (Auto) < 1.0 /HPF (0.0-6.0) 04/09/22 13:24 U Epithel Cells (Auto) < 1.0 /HPF (0-13.0) 04/09/22 13:24 Urine Mucus Few /HPF 04/09/22 13:24 Urine Eosinophils None seen (None Seen) 04/10/22 14:50 Urine Osmolality 415 Mosm/kg 04/19/22 22:32 Urine Total Volume 750 ml 04/11/22 11:23 Urine Creatinine 28.3 mg/dL (0.1-20.0) H 04/19/22 22:32 Ur Creatinine 24 Hour 1.2 (0.8-2.8) 04/11/22 11:23 Height (in) Not Reportable 04/11/22 11:23 Weight (lb) Not Reportable 04/11/22 11:23 Creatinine Clearance Not Reportable 04/11/22 11:23 Protein/Creatinin Ratio 0.77 04/10/22 14:50 Urine Sodium 89 mmol/L 04/19/22 22:32 Urine Total Protein 172 mg/dL (5-11.8) H 04/10/22 14:50 Random Vancomycin 11.9 ug/mL (0-40.0) 04/11/22 03:58 Urine Opiates Screen Presumptive negative 04/09/22 22:58 Urine Methadone Screen Presumptive negative 04/09/22 22:58 Ur Barbiturates Screen Presumptive negative 04/09/22 22:58 Ur Phencyclidine Scrn Presumptive negative 04/09/22 22:58 Ur Amphetamines Screen Presumptive negative 04/09/22 22:58 U Benzodiazepines Scrn Presumptive negative 04/09/22 22:58 Urine Cocaine Screen Presumptive negative 04/09/22 22:58 U Marijuana (THC) Screen Presumptive negative 04/09/22 22:58 Drugs of Abuse Note Disclamer 04/09/22 22:58 Coronavirus (PCR) Positive (Negative) A 04/23/22 07:00 Influenza A (RT-PCR) Negative (Negative) 04/09/22 14:15 Influenza B (RT-PCR) Negative (Negative) 04/09/22 14:15 Microbiology: Microbiology 04/23/22 11:22 Peripheral/Venous Blood Culture - Preliminary NO GROWTH AFTER 24 HOURS 04/23/22 10:05 Peripheral/Venous Blood Culture - Preliminary NO GROWTH AFTER 24 HOURS 04/23/22 11:05 Tracheal Aspirate Sputum Culture - Preliminary Cortez/IV: Voiding Method Indwelling Catheter Active Medications - Current Medications Current Medications: Generic Name Dose Route Start Last Admin Trade Name Freq PRN Reason Stop Dose Admin Acetaminophen 650 mg 04/09/22 18:11 04/22/22 20:06 Acetaminophen 325 Mg Tab PO 650 mg Q4H PRN Administration Pain MILD(1-3)/Fever >100.5/CARCAMO Dextrose 0 ml 04/10/22 00:40 Dextrose 50% In Water (25gm) 50 Ml Syringe IV Q30MIN PRN Hypoglycemia Protocol Famotidine 20 mg 04/22/22 10:00 04/24/22 10:25 Famotidine 20 Mg Tab FEEDTUBE Not Given BID JO ANN Fentanyl 50 mcg 04/15/22 09:25 04/22/22 20:17 Fentanyl 100 Mcg/2 Ml Inj IV 50 mcg Q10MIN PRN Administration ANALGESIA Heparin Sodium (Porcine) 5,000 unit 04/17/22 10:00 04/24/22 10:25 Heparin 5,000 Unit/1 Ml Vial SUB-Q Not Given Q12HR [facility] Fentanyl Citrate 2,000 mcg in 100 mls @ 4.155 mls/hr 04/15/22 10:00 04/24/22 00:06 Fentanyl Drip Premix IV 1.06 mcg/kg/hr TITR JO ANN 4.4 mls/hr Titration Protocol 1 MCG/KG/HR Meropenem/Sodium Chloride 1 gram in 100 mls @ 100 mls/hr 04/22/22 12:00 04/24/22 03:04 Merrem/Ns 1 Gram/100 Ml IV 100 mls/hr Q8H JO ANN Administration Protocol Dextrose 1,000 mls @ 50 mls/hr 04/23/22 23:45 04/24/22 00:06 D5w IV 04/24/22 19:44 50 mls/hr DIRECT JO ANN Administration Insulin Glargine 50 units 04/23/22 22:00 04/23/22 21:19 Insulin Glargine 100 Units/Ml SUB-Q 50 units QHS JO ANN Administration Insulin Human Lispro 0 unit 04/18/22 12:00 04/24/22 05:48 Insulin Lispro 100 Unit/Ml SUB-Q Not Given Q6HR JO ANN Protocol Metoprolol Tartrate 5 mg 04/22/22 17:01 04/22/22 17:19 Metoprolol Tartrate 5 Mg/5 Ml Inj IV 5 mg Q6H PRN Administration HR >/= 120 Ondansetron HCl 4 mg 04/09/22 18:11 Ondansetron 4 Mg/2 Ml Inj IV Q8H PRN Nausea And Vomiting Senna/Docusate Sodium 2 tab 04/15/22 14:00 04/24/22 10:25 Sennosides/Docusate Sodium 8.6/50 Mg Tab FEEDTUBE Not Given BID JO ANN Sodium Chloride 10 ml 04/09/22 22:00 04/24/22 10:26 Sodium Chloride 0.9% 10 Ml Flush Syringe IV 10 ml BID JO ANN Administration Sodium Chloride 10 ml 04/09/22 18:11 Sodium Chloride 0.9% 10 Ml Flush Syringe IV PRN PRN LINE FLUSH Nutrition/Malnutrition Assess - Dietary Evaluation Nutrition/Malnutrition Findings: Nutrition Notes Start: 04/12/22 10:07 Freq: Status: Active Protocol: Document 04/22/22 17:08 IZA (Rec: 04/22/22 17:45 IZA [id number]) Nutrition Notes Initial or Follow up Reassessment Current Diagnosis Acute Kidney Injury,Diabetes, Sepsis,Respiratory Failure Other Pertinent Diagnosis COVID-10, Pneumonia, Hypotension, s/p DKA, Metabolic Acidosis. Current Diet TF-Glucerna 1.2 Sean @ 55 ml/hr (since D 04/18). Labs/Tests 04/22: Na 150, Cl 114.1, BUN 43, Glu 186. Pertinent Medications 04/22: Lantus 40 U, others nutritionally unremarkable. 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 5.6 Kg body weight gain in 1 week reported. Weight Status Obese Subjective/Other Information RD consulkt for routine F/U on TF tolerance and continuation . TF continues as prescribed. RN notes on 04/21/22 09:11: 0730-Patient noted to have vomited undigested tube feeds. Tube feeds held at this time. 0915-Dr. Matthews and this nurse discussed patient status. Ok to restart tube feeds after 4 hours if residuals <50 cc. Patient to still receive 400 cc water flushes q4 hours due to hypernatremia. Patient ok to receive medications through Left Nare dobhoff. Pt continues on Mechanical ventilation, O2 saturation @ 98%, according to Physical Assessment History notes. Pt has missing teeth, according to Physical Assessment History notes. Pt presents an unspecified Area of Concern on skin, according to Physical Assessment History notes. Plans for Trach/PEG tube placement later this week, according to Progress notes. Percent of energy/protein needs met: Prescribed TF-Glucerna 1.2 Sean @ 55 ml/hr provides for energy/protein needs (1,584 Kcal/79 g) during LOS, 94% Kcal; 88% AA. Burn Absent Trauma Absent GI Symptoms None Difficulty In Swallowing Food Allergy No Skin Integrity/Comment Unspecified Area of Concern. Current % PO Other Minimum of two criteria No #1 Nutrition Diagnosis Inadequate oral intake Diagnosis Progress(for reassessment Continues documentation) Is patient on ventilator? Yes Is Patient Ambulatory and/or Out of Bed No REE-([facility]-confined to bed) [id number] Calculation Used for Recommendations [facility] Additional Notes Protein: 1.2-2 g/Kg AdjBW; 90- 140 g/day. Fluids: 1 ml/Kcal, or as per MD. Nutrition Intervention Nutrition Support: Continue TF-Glucerna 1.2 Sean @ 55 ml/hr. Flush: 100 ml water Q 4 hr, or as per MD. Kcal 1,584 Protein (gm) 79 Carbohydrates (gm) 151 Fat (gm) 79 Fluid (mL) 1,063 Fiber (gm) 21 % RDI: 94% Kcal; 88% AA. Goal #1 Provide at least 75% of energy /protein needs through Enteral Feeding during LOS. Goal #2 Maintain body weight within +/ -3% of admission body weight during LOS. Follow-Up By: 04/29/22 Additional Comments Continue monitoring Mechanical Ventilation status, renal function, TF tolerance and BM. <SHAKEEL HARRIS - Last Filed: 04/25/22 07:41> Assessment and Plan Assessment and plan: I saw and evaluated the patient. Discussed with the nurse practitioner and agree with their findings and plan as documented in this note. Hospitalist Physical - Constitutional Vitals: Temp Pulse Resp BP Pulse Ox 97.8 F 109 H 22 141/69 100 04/25/22 04:00 04/25/22 06:00 04/25/22 06:00 04/25/22 06:00 04/25/22 06:00 HEART Score - HEART Score Troponin: Troponin T < 0.010 ng/mL (0.00-0.029) 04/09/22 12:52 Results - Labs CBC & Chem 7: 04/25/22 04:00 04/25/22 04:00 Labs: Laboratory Last Values WBC 15.8 K/mm3 (4.5-11.0) H 04/25/22 04:00 RBC 3.08 M/mm3 (3.65-5.03) L 04/25/22 04:00 Hgb 8.9 gm/dl (10.1-14.3) L 04/25/22 04:00 Hct 27.6 % (30.3-42.9) L 04/25/22 04:00 MCV 89 fl (79-97) 04/25/22 04:00 MCH 29 pg (28-32) 04/25/22 04:00 MCHC 32 % (30-34) 04/25/22 04:00 RDW 16.7 % (13.2-15.2) H 04/25/22 04:00 Plt Count 135 K/mm3 (140-440) L 04/25/22 04:00 Lymph % (Auto) 5.7 % (13.4-35.0) L 04/12/22 00:01 [place] % (Auto) 4.5 % (0.0-7.3) 04/12/22 00:01 Eos % (Auto) 0.0 % (0.0-4.3) 04/12/22 00:01 Baso % (Auto) 0.2 % (0.0-1.8) 04/12/22 00:01 Lymph # (Auto) 0.9 K/mm3 (1.2-5.4) L 04/12/22 00:01 [place] # (Auto) 0.7 K/mm3 (0.0-0.8) 04/12/22 00:01 Eos # (Auto) 0.0 K/mm3 (0.0-0.4) 04/12/22 00:01 Baso # (Auto) 0.0 K/mm3 (0.0-0.1) 04/12/22 00:01 Add Manual Diff Complete 04/10/22 04:24 Total Counted 100 04/10/22 04:24 Seg Neutrophils % 89.6 % (40.0-70.0) H 04/12/22 00:01 Seg Neuts % (Manual) 94.0 % (40.0-70.0) H 04/10/22 04:24 Band Neutrophils % 0 % 04/10/22 04:24 Lymphocytes % (Manual) 3.0 % (13.4-35.0) L 04/10/22 04:24 Reactive Lymphs % (Man) 0 % 04/10/22 04:24 Monocytes % (Manual) 3.0 % (0.0-7.3) 04/10/22 04:24 Eosinophils % (Manual) 0 % (0.0-4.3) 04/10/22 04:24 Basophils % (Manual) 0 % (0.0-1.8) 04/10/22 04:24 Metamyelocytes % 0 % 04/10/22 04:24 Myelocytes % 0 % 04/10/22 04:24 Promyelocytes % 0 % 04/10/22 04:24 Blast Cells % 0 % 04/10/22 04:24 Nucleated RBC % Not Reportable 04/10/22 04:24 Seg Neutrophils # 14.6 K/mm3 (1.8-7.7) H 04/12/22 00:01 Seg Neutrophils # Man 15.4 K/mm3 (1.8-7.7) H 04/10/22 04:24 Band Neutrophils # 0.0 K/mm3 04/10/22 04:24 Lymphocytes # (Manual) 0.5 K/mm3 (1.2-5.4) L 04/10/22 04:24 Abs React Lymphs (Man) 0.0 K/mm3 04/10/22 04:24 Monocytes # (Manual) 0.5 K/mm3 (0.0-0.8) 04/10/22 04:24 Eosinophils # (Manual) 0.0 K/mm3 (0.0-0.4) 04/10/22 04:24 Basophils # (Manual) 0.0 K/mm3 (0.0-0.1) 04/10/22 04:24 Metamyelocytes # 0.0 K/mm3 04/10/22 04:24 Myelocytes # 0.0 K/mm3 04/10/22 04:24 Promyelocytes # 0.0 K/mm3 04/10/22 04:24 Blast Cells # 0.0 K/mm3 04/10/22 04:24 WBC Morphology Not Reportable 04/10/22 04:24 Hypersegmented Neuts Not Reportable 04/10/22 04:24 Hyposegmented Neuts Not Reportable 04/10/22 04:24 Hypogranular Neuts Not Reportable 04/10/22 04:24 Smudge Cells Not Reportable 04/10/22 04:24 Toxic Granulation Not Reportable 04/10/22 04:24 Toxic Vacuolation Not Reportable 04/10/22 04:24 Dohle Bodies Not Reportable 04/10/22 04:24 Pelger-Huet Anomaly Not Reportable 04/10/22 04:24 Aleja Rods Not Reportable 04/10/22 04:24 Platelet Estimate Consistent w auto 04/10/22 04:24 Clumped Platelets Not Reportable 04/10/22 04:24 Plt Clumps, EDTA Not Reportable 04/10/22 04:24 Large Platelets Not Reportable 04/10/22 04:24 Giant Platelets Rare 04/10/22 04:24 Platelet Satelliting Not Reportable 04/10/22 04:24 Plt Morphology Comment Not Reportable 04/10/22 04:24 RBC Morphology Normal 04/10/22 04:24 Dimorphic RBCs Not Reportable 04/10/22 04:24 Polychromasia Not Reportable 04/10/22 04:24 Hypochromasia Not Reportable 04/10/22 04:24 Poikilocytosis Not Reportable 04/10/22 04:24 Anisocytosis Not Reportable 04/10/22 04:24 Microcytosis Not Reportable 04/10/22 04:24 Macrocytosis Not Reportable 04/10/22 04:24 Spherocytes Not Reportable 04/10/22 04:24 Pappenheimer Bodies Not Reportable 04/10/22 04:24 Sickle Cells Not Reportable 04/10/22 04:24 Target Cells Not Reportable 04/10/22 04:24 Tear Drop Cells Not Reportable 04/10/22 04:24 Ovalocytes Not Reportable 04/10/22 04:24 Helmet Cells Not Reportable 04/10/22 04:24 Lao-[place] Bodies Not Reportable 04/10/22 04:24 [place] Rings Not Reportable 04/10/22 04:24 [place] Cells Not Reportable 04/10/22 04:24 Bite Cells Not Reportable 04/10/22 04:24 Crenated Cell Not Reportable 04/10/22 04:24 Elliptocytes Not Reportable 04/10/22 04:24 Acanthocytes (Spur) Not Reportable 04/10/22 04:24 Rouleaux Not Reportable 04/10/22 04:24 Hemoglobin C Crystals Not Reportable 04/10/22 04:24 Schistocytes Not Reportable 04/10/22 04:24 Malaria parasites Not Reportable 04/10/22 04:24 [place] Bodies Not Reportable 04/10/22 04:24 Hem Pathologist Commnt No 04/10/22 04:24 PT 13.5 Sec. (12.2-14.9) 04/24/22 03:46 INR 0.93 (0.87-1.13) 04/24/22 03:46 APTT 25.9 Sec. (24.2-36.6) 04/24/22 03:46 D-Dimer 3804.33 ng/mlDDU (0-234) H 04/17/22 05:12 ABG pH 7.378 pH Units (7.350-7.450) 04/24/22 04:41 ABG pCO2 47.8 mm Hg 04/24/22 04:41 ABG pO2 92.6 mm Hg (80.0-90.0) H 04/24/22 04:41 ABG HCO3 27.5 mmol/L (20.0-26.0) H 04/24/22 04:41 ABG O2 Saturation 97.1 % (95.0-99.0) 04/24/22 04:41 ABG O2 Content 13.0 (0.0-44) 04/24/22 04:41 ABG Base Excess 2.0 mmol/L (-2.0-3.0) 04/24/22 04:41 ABG Hemoglobin 9.6 gm/dl (12.0-16.0) L 04/24/22 04:41 ABG Carboxyhemoglobin 1.5 % (0.0-5.0) 04/24/22 04:41 ABG Methemoglobin 0.6 % (0.0-1.5) 04/24/22 04:41 VBG pH 7.303 (7.320-7.420) L 04/09/22 12:52 Oxyhemoglobin 95.1 % (95.0-99.0) 04/24/22 04:41 FiO2 40 % 04/24/22 04:41 Sodium 149 mmol/L (137-145) H 04/25/22 04:00 Potassium 4.2 mmol/L (3.6-5.0) 04/25/22 04:00 Chloride 114.4 mmol/L (98-107) H 04/25/22 04:00 Carbon Dioxide 27 mmol/L (22-30) 04/25/22 04:00 Anion Gap 12 mmol/L 04/25/22 04:00 BUN 41 mg/dL (7-17) H 04/25/22 04:00 Creatinine 1.1 mg/dL (0.6-1.2) 04/25/22 04:00 Estimated GFR 58 ml/min 04/25/22 04:00 BUN/Creatinine Ratio 37 % 04/25/22 04:00 Glucose 94 mg/dL (65-100) 04/25/22 04:00 POC Glucose 210 mg/dL (70-105) H 04/22/22 23:33 Osmolality 361 Mosm/kg 04/19/22 12:10 Lactic Acid 2.10 mmol/L (0.7-2.0) H* 04/15/22 12:00 Calcium 8.5 mg/dL (8.4-10.2) 04/25/22 04:00 Phosphorus 3.60 mg/dL (2.5-4.5) 04/14/22 07:28 Magnesium 2.90 mg/dL (1.7-2.3) H 04/14/22 07:28 Ferritin 570.8 ng/mL (10.0-200.0) H 04/18/22 05:41 Total Bilirubin 0.60 mg/dL (0.1-1.2) 04/22/22 02:30 Direct Bilirubin 0.5 mg/dL (0-0.2) H 04/16/22 04:00 Indirect Bilirubin 0.4 mg/dL 04/16/22 04:00 AST 46 units/L (5-40) H 04/22/22 02:30 ALT 105 units/L (7-56) H 04/22/22 02:30 Alkaline Phosphatase 122 units/L (35-129) 04/22/22 02:30 Ammonia 20.0 umol/L (25-60) L 04/09/22 12:52 Lactate Dehydrogenase 1473 units/L (91-180) H 04/18/22 05:41 Troponin T < 0.010 ng/mL (0.00-0.029) 04/09/22 12:52 C-Reactive Protein 0.80 mg/dL (0.00-1.30) 04/18/22 05:41 NT-Pro-B Natriuret Pep 101.1 pg/mL (0-900) 04/09/22 13:45 Total Protein 4.9 g/dL (6.3-8.2) L 04/22/22 02:30 Albumin 3.2 g/dL (3.9-5) L 04/22/22 02:30 Albumin/Globulin Ratio 1.9 % 04/22/22 02:30 Procalcitonin 3.13 ng/mL (<0.15) 04/10/22 11:47 TSH 1.560 mlU/mL (0.270-4.200) 04/09/22 12:52 Free T4 1.33 ng/dL (0.76-1.46) 04/09/22 12:52 Urine Color Yellow (Yellow) 04/09/22 13:24 Urine Turbidity Clear (Clear) 04/09/22 13:24 Urine pH 5.0 (5.0-7.0) 04/09/22 13:24 Ur Specific [place] 1.011 (1.003-1.030) 04/09/22 13:24 Urine Protein 30 mg/dl mg/dL (Negative) 04/09/22 13:24 Urine Glucose (UA) Neg mg/dL (Negative) 04/09/22 13:24 Urine Ketones 20 mg/dL (Negative) 04/09/22 13:24 Urine Blood Neg (Negative) 04/09/22 13:24 Urine Nitrite Neg (Negative) 04/09/22 13:24 Urine Bilirubin Neg (Negative) 04/09/22 13:24 Urine Urobilinogen 4.0 mg/dL (<2.0) 04/09/22 13:24 Ur Leukocyte Esterase Neg (Negative) 04/09/22 13:24 Urine WBC (Auto) 2.0 /HPF (0.0-6.0) 04/09/22 13:24 Urine RBC (Auto) < 1.0 /HPF (0.0-6.0) 04/09/22 13:24 U Epithel Cells (Auto) < 1.0 /HPF (0-13.0) 04/09/22 13:24 Urine Mucus Few /HPF 04/09/22 13:24 Urine Eosinophils None seen (None Seen) 04/10/22 14:50 Urine Osmolality 415 Mosm/kg 04/19/22 22:32 Urine Total Volume 750 ml 04/11/22 11:23 Urine Creatinine 28.3 mg/dL (0.1-20.0) H 04/19/22 22:32 Ur Creatinine 24 Hour 1.2 (0.8-2.8) 04/11/22 11:23 Height (in) Not Reportable 04/11/22 11:23 Weight (lb) Not Reportable 04/11/22 11:23 Creatinine Clearance Not Reportable 04/11/22 11:23 Protein/Creatinin Ratio 0.77 04/10/22 14:50 Urine Sodium 89 mmol/L 04/19/22 22:32 Urine Total Protein 172 mg/dL (5-11.8) H 04/10/22 14:50 Random Vancomycin 11.9 ug/mL (0-40.0) 04/11/22 03:58 Urine Opiates Screen Presumptive negative 04/09/22 22:58 Urine Methadone Screen Presumptive negative 04/09/22 22:58 Ur Barbiturates Screen Presumptive negative 04/09/22 22:58 Ur Phencyclidine Scrn Presumptive negative 04/09/22 22:58 Ur Amphetamines Screen Presumptive negative 04/09/22 22:58 U Benzodiazepines Scrn Presumptive negative 04/09/22 22:58 Urine Cocaine Screen Presumptive negative 04/09/22 22:58 U Marijuana (THC) Screen Presumptive negative 04/09/22 22:58 Drugs of Abuse Note Disclamer 04/09/22 22:58 Coronavirus (PCR) Positive (Negative) A 04/23/22 07:00 Influenza A (RT-PCR) Negative (Negative) 04/09/22 14:15 Influenza B (RT-PCR) Negative (Negative) 04/09/22 14:15 Microbiology: Microbiology 04/23/22 11:05 Tracheal Aspirate Sputum Culture - Preliminary 04/23/22 11:22 Peripheral/Venous Blood Culture - Preliminary NO GROWTH AFTER 24 HOURS 04/23/22 10:05 Peripheral/Venous Blood Culture - Preliminary NO GROWTH AFTER 24 HOURS [place]/IV: Voiding Method External Female Catheter Active Medications - Current Medications Current Medications: Generic Name Dose Route Start Last Admin Trade Name Freq PRN Reason Stop Dose Admin Acetaminophen 650 mg 04/09/22 18:11 04/22/22 20:06 Acetaminophen 325 Mg Tab PO 650 mg Q4H PRN Administration Pain MILD(1-3)/Fever >100.5/CARCAMO Dextrose 0 ml 04/10/22 00:40 Dextrose 50% In Water (25gm) 50 Ml Syringe IV Q30MIN PRN Hypoglycemia Protocol Famotidine 20 mg 04/22/22 10:00 04/24/22 21:51 Famotidine 20 Mg Tab FEEDTUBE 20 mg BID JO ANN Administration Fentanyl 50 mcg 04/24/22 13:38 Fentanyl 100 Mcg/2 Ml Inj IV Q2HR PRN Pain , Severe (7-10) Heparin Sodium (Porcine) 5,000 unit 04/17/22 10:00 04/24/22 21:51 Heparin 5,000 Unit/1 Ml Vial SUB-Q 5,000 unit Q12HR JO ANN Administration Fentanyl Citrate 2,000 mcg in 100 mls @ 4.155 mls/hr 04/15/22 10:00 04/24/22 00:06 Fentanyl Drip Premix IV 1.06 mcg/kg/hr TITR JO ANN 4.4 mls/hr Titration Protocol 1 MCG/KG/HR Meropenem/Sodium Chloride 1 gram in 100 mls @ 100 mls/hr 04/22/22 12:00 04/25/22 05:30 Merrem/Ns 1 Gram/100 Ml IV 100 mls/hr Q8H JO ANN Administration Protocol Insulin Glargine 50 units 04/23/22 22:00 04/24/22 21:50 Insulin Glargine 100 Units/Ml SUB-Q 50 units QHS JO ANN Administration Insulin Human Lispro 0 unit 04/18/22 12:00 04/25/22 06:19 Insulin Lispro 100 Unit/Ml SUB-Q Not Given Q6HR [facility] Protocol Lactulose 20 gm 04/24/22 20:00 04/25/22 02:24 Lactulose 20 Gm/30 Ml Oral Liqd PO Not Given Q6H JO ANN Metoprolol Tartrate 5 mg 04/22/22 17:01 04/22/22 17:19 Metoprolol Tartrate 5 Mg/5 Ml Inj IV 5 mg Q6H PRN Administration HR >/= 120 Ondansetron HCl 4 mg 04/09/22 18:11 Ondansetron 4 Mg/2 Ml Inj IV Q8H PRN Nausea And Vomiting Senna/Docusate Sodium 2 tab 04/15/22 14:00 04/24/22 21:51 Sennosides/Docusate Sodium 8.6/50 Mg Tab FEEDTUBE 2 tab BID JO ANN Administration Sodium Chloride 10 ml 04/09/22 22:00 04/24/22 21:52 Sodium Chloride 0.9% 10 Ml Flush Syringe IV 10 ml BID JO ANN Administration Sodium Chloride 10 ml 04/09/22 18:11 Sodium Chloride 0.9% 10 Ml Flush Syringe IV PRN PRN LINE FLUSH Nutrition/Malnutrition Assess - Dietary Evaluation Nutrition/Malnutrition Findings: Nutrition Notes Start: 04/12/22 10:07 Freq: Status: Active Protocol: Document 04/22/22 17:08 IZA (Rec: 04/22/22 17:45 IZA [email or web address]) Nutrition Notes Initial or Follow up Reassessment Current Diagnosis Acute Kidney Injury,Diabetes, Sepsis,Respiratory Failure Other Pertinent Diagnosis COVID-10, Pneumonia, Hypotension, s/p DKA, Metabolic Acidosis. Current Diet TF-Glucerna 1.2 Sean @ 55 ml/hr (since D 04/18). Labs/Tests 04/22: Na 150, Cl 114.1, BUN 43, Glu 186. Pertinent Medications 04/22: Lantus 40 U, others nutritionally unremarkable. 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 5.6 Kg body weight gain in 1 week reported. Weight Status Obese Subjective/Other Information RD consulkt for routine F/U on TF tolerance and continuation . TF continues as prescribed. RN notes on 04/21/22 09:11: 0730-Patient noted to have vomited undigested tube feeds. Tube feeds held at this time. 0915-Dr. Matthews and this nurse discussed patient status. Ok to restart tube feeds after 4 hours if residuals <50 cc. Patient to still receive 400 cc water flushes q4 hours due to hypernatremia. Patient ok to receive medications through Left Nare dobhoff. Pt continues on Mechanical ventilation, O2 saturation @ 98%, according to Physical Assessment History notes. Pt has missing teeth, according to Physical Assessment History notes. Pt presents an unspecified Area of Concern on skin, according to Physical Assessment History notes. Plans for Trach/PEG tube placement later this week, according to Progress notes. Percent of energy/protein needs met: Prescribed TF-Glucerna 1.2 Sean @ 55 ml/hr provides for energy/protein needs (1,584 Kcal/79 g) during LOS, 94% Kcal; 88% AA. Burn Absent Trauma Absent GI Symptoms None Difficulty In Swallowing Food Allergy No Skin Integrity/Comment Unspecified Area of Concern. Current % PO Other Minimum of two criteria No #1 Nutrition Diagnosis Inadequate oral intake Diagnosis Progress(for reassessment Continues documentation) Is patient on ventilator? Yes Is Patient Ambulatory and/or Out of Bed No REE-([facility]-confined to bed) [phone] Calculation Used for Recommendations [facility] Additional Notes Protein: 1.2-2 g/Kg AdjBW; 90- 140 g/day. Fluids: 1 ml/Kcal, or as per MD. Nutrition Intervention Nutrition Support: Continue TF-Glucerna 1.2 Sean @ 55 ml/hr. Flush: 100 ml water Q 4 hr, or as per MD. Kcal 1,584 Protein (gm) 79 Carbohydrates (gm) 151 Fat (gm) 79 Fluid (mL) 1,063 Fiber (gm) 21 % RDI: 94% Kcal; 88% AA. Goal #1 Provide at least 75% of energy /protein needs through Enteral Feeding during LOS. Goal #2 Maintain body weight within +/ -3% of admission body weight during LOS. Follow-Up By: 04/29/22 Additional Comments Continue monitoring Mechanical Ventilation status, renal function, TF tolerance and BM.
--- NOTE | 2022-04-24 13:47 | Post Anesthesia Evaluation ---
- Post Anesthesia Evaluation Patient Participated: No Airway Patent: Yes Stable Respiratory Function: Yes Nausea/Vomiting: No Temp > 96.8F: Yes Pain Manageable: Yes Adequeate Hydration: Yes Anesthesia Complications: No Block Receding Appropriately: Not Applicable Patient on Ventilator: Yes
[2022-04-24] MEDS: LACTULOSE 20 GM/30 ML ORAL LIQD PO SCH (19:55)
[2022-04-24] MEDS: INSULIN GLARGINE 100 UNITS/ML SUB-Q SCH (21:50)
[2022-04-25] MEDS: LACTULOSE 20 GM/30 ML ORAL LIQD PO SCH ×3 (02:24→13:14)
[2022-04-25] MEDS: FREE WATER PO SCH ×6 (02:25→22:00)
[2022-04-25 05:27] LABS: Hematocrit 27.6 % (30.3-42.9); Hemoglobin 8.9 gm/dl (10.1-14.3); Mean Corpuscular HGB Conc 32 % (30-34); Mean Corpuscular Volume 89 fl (79-97); Platelet Count 135 K/mm3 (140-440); Red Blood Count 3.08 M/mm3 (3.65-5.03); Red Cell Distribution Width 16.7 % (13.2-15.2)
[2022-04-25] MEDS: MEROPENEM/NS 1 GRAM/100 ML 1 GRAM/100 ML BAG IV SCH ×3 (05:30→19:55)
[2022-04-25 05:39] LABS: Calcium 8.5 mg/dL (8.4-10.2)
[2022-04-25] MEDS: INSULIN LISPRO 100 UNIT/ML SUB-Q SCH ×4 (06:19→18:33)
--- NOTE | 2022-04-25 09:20 | Progress Note ---
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 Subjective Date of service: 04/25/22 Principal diagnosis: encephalopathy Interval history: remains in ICU, no overnight events documented Objective - Vital Signs Vital signs: Vital Signs - 12hr 04/24/22 04/24/22 04/24/22 22:00 23:00 23:39 Temperature Pulse Rate 111 H 118 H 115 H Pulse Rate [ From Monitor] Respiratory 21 20 Rate Blood Pressure 151/67 146/68 141/63 O2 Sat by Pulse 100 100 100 Oximetry O2 Sat by Pulse Oximetry [ Assessment] 04/24/22 04/25/22 04/25/22 23:40 00:00 01:00 Temperature 97.8 F Pulse Rate 115 H 114 H 107 H Pulse Rate [ 107 H From Monitor] Respiratory 21 19 18 Rate Blood Pressure 141/63 152/65 138/69 O2 Sat by Pulse 100 100 100 Oximetry O2 Sat by Pulse Oximetry [ Assessment] 04/25/22 04/25/22 04/25/22 02:00 03:00 04:00 Temperature 97.8 F Pulse Rate 108 H 108 H 112 H Pulse Rate [ 107 H From Monitor] Respiratory 20 18 23 Rate Blood Pressure 118/79 119/68 139/73 O2 Sat by Pulse 100 100 100 Oximetry O2 Sat by Pulse 100 Oximetry [ Assessment] 04/25/22 04/25/22 04/25/22 05:00 06:00 07:00 Temperature Pulse Rate 107 H 109 H 110 H Pulse Rate [ From Monitor] Respiratory 20 22 19 Rate Blood Pressure 128/65 141/69 120/57 O2 Sat by Pulse 100 100 100 Oximetry O2 Sat by Pulse Oximetry [ Assessment] 04/25/22 04/25/22 07:40 08:00 Temperature Pulse Rate 108 H 113 H Pulse Rate [ From Monitor] Respiratory 18 Rate Blood Pressure 120/48 120/48 O2 Sat by Pulse 100 100 Oximetry O2 Sat by Pulse Oximetry [ Assessment] - Lab 04/25/22 04:00 04/25/22 04:00 Most recent lab results ABG pH 7.378 pH Units (7.350-7.450) 04/24/22 04:41 ABG pCO2 47.8 mm Hg 04/24/22 04:41 ABG pO2 92.6 mm Hg (80.0-90.0) H 04/24/22 04:41 ABG HCO3 27.5 mmol/L (20.0-26.0) H 04/24/22 04:41 ABG O2 Saturation 97.1 % (95.0-99.0) 04/24/22 04:41 Calcium 8.5 mg/dL (8.4-10.2) 04/25/22 04:00 Phosphorus 3.60 mg/dL (2.5-4.5) 04/14/22 07:28 Magnesium 2.90 mg/dL (1.7-2.3) H 04/14/22 07:28 Urine Creatinine 28.3 mg/dL (0.1-20.0) H 04/19/22 22:32 Urine Sodium 89 mmol/L 04/19/22 22:32 Urine Total Protein 172 mg/dL (5-11.8) H 04/10/22 14:50 Medications & Allergies - Medications Allergies/Adverse Reactions: Allergies No Known Allergies Allergy (Verified 04/09/22 13:44) Home Medications: Home Medications Medication Instructions Recorded Confirmed Last Taken Type Gabapentin 600 mg PO TID 04/23/22 04/23/22 Unknown History PARoxetine 10 mg PO QDAY 04/23/22 04/23/22 Unknown History acetaZOLAMIDE 250 mg PO QDAY 04/23/22 04/23/22 Unknown History cloNIDine 0.1 mg PO BID 04/23/22 04/23/22 Unknown History metFORMIN 500 mg PO BID 04/23/22 04/23/22 Unknown History Active Medications: Generic Name Dose Route Start Last Admin Trade Name Freq PRN Reason Stop Dose Admin Acetaminophen 650 mg 04/09/22 18:11 04/22/22 20:06 Acetaminophen 325 Mg Tab PO 650 mg Q4H PRN Administration Pain MILD(1-3)/Fever >100.5/CARCAMO Dextrose 0 ml 04/10/22 00:40 Dextrose 50% In Water (25gm) 50 Ml Syringe IV Q30MIN PRN Hypoglycemia Protocol Famotidine 20 mg 04/22/22 10:00 04/24/22 21:51 Famotidine 20 Mg Tab FEEDTUBE 20 mg BID JO ANN Administration Fentanyl 50 mcg 04/24/22 13:38 Fentanyl 100 Mcg/2 Ml Inj IV Q2HR PRN Pain , Severe (7-10) Heparin Sodium (Porcine) 5,000 unit 04/17/22 10:00 04/24/22 21:51 Heparin 5,000 Unit/1 Ml Vial SUB-Q 5,000 unit Q12HR JO ANN Administration Meropenem/Sodium Chloride 1 gram in 100 mls @ 100 mls/hr 04/22/22 12:00 0601/15 05:30 Merrem/Ns 1 Gram/100 Ml IV 100 mls/hr Q8H JO ANN Administration Protocol Insulin Glargine 50 units 04/23/22 22:00 04/24/22 21:50 Insulin Glargine 100 Units/Ml SUB-Q 50 units QHS JO ANN Administration Insulin Human Lispro 0 unit 04/18/22 12:00 04/25/22 06:19 Insulin Lispro 100 Unit/Ml SUB-Q Not Given Q6HR [facility] Protocol Lactulose 20 gm 04/24/22 20:00 04/25/22 02:24 Lactulose 20 Gm/30 Ml Oral Liqd PO Not Given Q6H [facility] Metoprolol Tartrate 5 mg 04/22/22 17:01 04/22/22 17:19 Metoprolol Tartrate 5 Mg/5 Ml Inj IV 5 mg Q6H PRN Administration HR >/= 120 Ondansetron HCl 4 mg 04/09/22 18:11 Ondansetron 4 Mg/2 Ml Inj IV Q8H PRN Nausea And Vomiting Senna/Docusate Sodium 2 tab 04/15/22 14:00 04/24/22 21:51 Sennosides/Docusate Sodium 8.6/50 Mg Tab FEEDTUBE 2 tab BID JO ANN Administration Sodium Chloride 10 ml 04/09/22 22:00 04/24/22 21:52 Sodium Chloride 0.9% 10 Ml Flush Syringe IV 10 ml BID JO ANN Administration Sodium Chloride 10 ml 04/09/22 18:11 Sodium Chloride 0.9% 10 Ml Flush Syringe IV PRN PRN LINE FLUSH
[2022-04-25] MEDS: FAMOTIDINE 20 MG TAB FEEDTUBE SCH ×2 (09:51→22:00)
[2022-04-25] MEDS: HEPARIN 5,000 UNIT/1 ML VIAL SUB-Q SCH ×2 (09:51→21:19)
[2022-04-25] MEDS: SENNOSIDES/DOCUSATE SODIUM 8.6/50 MG TAB FEEDTUBE SCH (09:51)
--- NOTE | 2022-04-25 12:08 | Progress Note ---
Assessment and Plan 77 y/o female with multisystem organ failure, COVID positive 04/25/22: Per CM, may be able to transfer as early as tomorrow. Continue PSV trials as tolerated. Continue tube feeds. Mental state is improved. Prognosis is still guarded. 04/24/22: COVID positive, will ask surgery what anesthesia wants to do. Continue free water and tube feeds. Follow up any new renal recs. PSV as tolerated and supportive care. STill no improvement in mental state. 04/23/22: COVID test today. PSV as tolerated. Follow renal recs in regards to increase in Na and Cr. Guarded to poor prognosis. 04/22/22: WIll need repeat COVID test tomorrow. Attempt PSV as tolerated. Na remains elevated, will defer to renal. Guarded to poor prognosis. 04/19/22: Down to 6 of PEEP and 40%. Not breathing over the vent. Will get ABG tomorrow. Na continues to increase. Sending serum and urine osms. Follow up any new renal recs for today. Plan for trach and peg later this afternoon. Prognosis remains guarded to poor. 04/18/22: Peep and FiO2 weaned this am. No blood gas this am but sat is 100. Will order ABG for tomorrow morning. Will order repeat CMP and ask that phlebotomy do a fresh stick on patient and not draw from picc line. Once t rached and pegged will work on placement. Reviewed meds but none that would cause persistent to worsening hypernatremia. Guarded to poor prognosis. 04/17/22: Continue PEEP at 10. Down to 45%. Do not see a blood gas from this morning. Neurology saw this am. MRI negative. Family meeting today at 1330. Guarded to poor prognosis. 04/16/22: Continue PEEP at 10 until FiO2 is at 40-45% and sats >92%. Then can start to wean. Just on Fent now, continue bowel regimen. Tolerating tube feeds. Discussed with ANALYSIS MANAGER on rounds, neurology was seeing but no further notes, no objection to consulting neuro who is here this week, whoever that is. Patient may need MRI as she has had two negative head CT's and still no real explanation for acute change in mental state. Plan to meet/talk with son tomorrow about next steps and goals of care. Prognosis remains guarded to now poor given no improvement in mental state. 04/15/22: Hold on any further fluids or lasix. If hypotensive, will add pressors. Continue PEEP at 10. Same acceptable parameters as below for sats and PaO2 as pH. Continue pain control and sedation. Added bowel regimen. Prognosis is still guarded to poor. 04/14/22: Hold on any further lasix. Please do not give any fluids, will see if she re equilbrates on her own. Increase PEEP to 8. Will get head CT today. Patient is now in full blown ARDS from COVID. Increased PEEP to 8 and dropped TV to 400. pH of >7.15 and PaO2 >55 are acceptable. Repeat gas at 1600 today. 04/13/22: Renal function continues to improve and urine output improving as well. Given CXR findings will give lasix 40mg IV x1 today. Repeat CXR tomorrow. Off insulin drip and tolerating feeds. Hold on CT head today but if no improvement or worsening clinical state tomorrow, will repeat. Spoke with family on phone yesterday. Guarded prognosis. 04/12/22: Improved mental state. Feed patient today and stop IVF's and attempt to get off of insulin drip. Dropped Peep to 6. Wean FiO2 for sats >88%. PaO2 of 55 and greater are acceptable. Normal EF on echo. EEG showed diffuse slowing but mental state has improved. Will up date family. 04/11/22: Continue supportive measures. Getting EEG right now. Continue to wean Pressors for MAPs >65. if able to get to just one pressor, will place NG vs OG and attempt trickle feeds. Follow up echo. Down to 45%, good PaO2. Continue to wean, however mental state would preclude extubation at this time. Await renal eval but would like to stop bicarb now that acidosis is better, however needs free water but this could be given do OG/NG if end up placing, otherwise would just do D5W. If able to place tube and feed, then can attempt to get off insulin drip. Plan to update family after echo and EEG read. 1. Neuro-concern for seizures. EEG pending. Hold on long acting anti-epileptic therapy. Neurology consulted and has seen. patient is not on any continuous sedation at present 2. CV-Cardiovascular collapse on pressors (3). Could benefit from echo. Attempt volume resuscitation but no improvement. Continue pressors and wean as tolerated for MAPs >65 3. Pulm-intubated, not on sedation. COVID positive but oxygenation is stable. Per documentation, mainly intubated for airway protection given altered level of mental status. Not a candidate for Remdesivir and may not be a candidate for actemra. Continue steroids and low Tidal volume strategy for lung protection with permissive hypercapnea and lower PaO2 (55-60) if needed. 4. Renal- worsening renal function and decrease in urine output. Renal following. May need HD but would likely not tolerate and CRRT or CVVH is not available here. Worsening lactic acidosis as well. 5. GI-hold on feeds given pressor requirement, prophylactic therapy 6. Endo-continue insulin drip for now Overall prognosis is guarded to poor. Will discuss with immediate family today. CCT 31 minutes Subjective Date of service: 04/25/22 Principal diagnosis: encephalopathy Interval history: Got trach and peg yesterday. More alert today. Objective Vital Signs - 12hr 04/25/22 04/25/22 04/25/22 01:00 02:00 03:00 Temperature Pulse Rate 107 H 108 H 108 H Pulse Rate [ From Monitor] Respiratory 18 20 18 Rate Blood Pressure 138/69 118/79 119/68 O2 Sat by Pulse 100 100 100 Oximetry O2 Sat by Pulse Oximetry [ Assessment] 04/25/22 04/25/22 04/25/22 04:00 05:00 06:00 Temperature 97.8 F Pulse Rate 112 H 107 H 109 H Pulse Rate [ 107 H From Monitor] Respiratory 23 20 22 Rate Blood Pressure 139/73 128/65 141/69 O2 Sat by Pulse 100 100 100 Oximetry O2 Sat by Pulse 100 Oximetry [ Assessment] 04/25/22 04/25/22 04/25/22 07:00 07:40 08:00 Temperature Pulse Rate 110 H 108 H 113 H Pulse Rate [ From Monitor] Respiratory 19 18 Rate Blood Pressure 120/57 120/48 120/48 O2 Sat by Pulse 100 100 100 Oximetry O2 Sat by Pulse Oximetry [ Assessment] Constitutional: other (on vent orally intubated eyes open) Eyes: non-icteric, other (scleroedema on rt) ENT: oropharynx moist Ascultation: Bilateral: diminished breath sounds Cardiovascular: regular rate and rhythm Gastrointestinal: normoactive bowel sounds Integumentary: normal Extremities: no cyanosis CBC and BMP: 04/25/22 04:00 04/25/22 04:00 ABG, PT/INR, D-dimer: ABG ABG pH 7.378 pH Units (7.350-7.450) 04/24/22 04:41 ABG pCO2 47.8 mm Hg 04/24/22 04:41 ABG pO2 92.6 mm Hg (80.0-90.0) H 04/24/22 04:41 ABG O2 Saturation 97.1 % (95.0-99.0) 04/24/22 04:41 PT/INR, D-dimer PT 13.5 Sec. (12.2-14.9) 04/24/22 03:46 INR 0.93 (0.87-1.13) 04/24/22 03:46 D-Dimer 3804.33 ng/mlDDU (0-234) H 04/17/22 05:12 Abnormal lab findings: Abnormal Labs 04/09/22 04/09/22 04/09/22 11:59 12:52 12:52 WBC RBC Hgb Hct RDW 15.3 H Plt Count Lymph % (Auto) 8.4 L Lymph # (Auto) 0.7 L Seg Neutrophils % 84.6 H Seg Neuts % (Manual) Lymphocytes % (Manual) Seg Neutrophils # Seg Neutrophils # Man Lymphocytes # (Manual) D-Dimer ABG pH ABG pO2 ABG HCO3 ABG O2 Saturation ABG Base Excess ABG Hemoglobin VBG pH Oxyhemoglobin Sodium Potassium Chloride 112.7 H Carbon Dioxide 18 L BUN Creatinine 2.0 H Glucose 204 H POC Glucose 203 H Lactic Acid Calcium Phosphorus Magnesium Ferritin Total Bilirubin 1.30 H Direct Bilirubin AST 47 H ALT Ammonia Lactate Dehydrogenase C-Reactive Protein Total Protein Albumin Urine Creatinine Urine Total Protein Coronavirus (PCR) 04/09/22 04/09/22 04/09/22 12:52 12:52 13:02 WBC RBC Hgb Hct RDW Plt Count Lymph % (Auto) Lymph # (Auto) Seg Neutrophils % Seg Neuts % (Manual) Lymphocytes % (Manual) Seg Neutrophils # Seg Neutrophils # Man Lymphocytes # (Manual) D-Dimer ABG pH ABG pO2 ABG HCO3 ABG O2 Saturation ABG Base Excess ABG Hemoglobin VBG pH 7.303 L Oxyhemoglobin Sodium Potassium Chloride Carbon Dioxide BUN Creatinine Glucose POC Glucose Lactic Acid Calcium Phosphorus Magnesium Ferritin Total Bilirubin Direct Bilirubin AST ALT Ammonia 20.0 L Lactate Dehydrogenase C-Reactive Protein Total Protein Albumin Urine Creatinine Urine Total Protein Coronavirus (PCR) Positive A 04/09/22 04/09/22 04/09/22 15:49 22:15 22:58 WBC RBC Hgb Hct RDW Plt Count Lymph % (Auto) Lymph # (Auto) Seg Neutrophils % Seg Neuts % (Manual) Lymphocytes % (Manual) Seg Neutrophils # Seg Neutrophils # Man Lymphocytes # (Manual) D-Dimer ABG pH 7.097 L* ABG pO2 188.8 H ABG HCO3 7.4 L ABG O2 Saturation 99.1 H ABG Base Excess -20.7 L ABG Hemoglobin VBG pH Oxyhemoglobin Sodium Potassium Chloride 108.8 H Carbon Dioxide 10 L D BUN 20 H Creatinine 2.6 H Glucose 465 H POC Glucose Lactic Acid 2.70 H* Calcium 7.4 L Phosphorus Magnesium Ferritin Total Bilirubin Direct Bilirubin AST ALT Ammonia Lactate Dehydrogenase C-Reactive Protein Total Protein Albumin Urine Creatinine Urine Total Protein Coronavirus (PCR) 04/09/22 04/09/22 04/10/22 23:19 Unknown 00:03 WBC RBC Hgb Hct RDW Plt Count Lymph % (Auto) Lymph # (Auto) Seg Neutrophils % Seg Neuts % (Manual) Lymphocytes % (Manual) Seg Neutrophils # Seg Neutrophils # Man Lymphocytes # (Manual) D-Dimer ABG pH ABG pO2 ABG HCO3 ABG O2 Saturation ABG Base Excess ABG Hemoglobin VBG pH Oxyhemoglobin Sodium Potassium Chloride Carbon Dioxide BUN Creatinine Glucose POC Glucose 356 H Lactic Acid 7.50 H* 6.10 H* Calcium Phosphorus Magnesium Ferritin Total Bilirubin Direct Bilirubin AST ALT Ammonia Lactate Dehydrogenase C-Reactive Protein Total Protein Albumin Urine Creatinine Urine Total Protein Coronavirus (PCR) 04/10/22 04/10/22 04/10/22 02:16 03:03 04:00 WBC RBC Hgb Hct RDW Plt Count Lymph % (Auto) Lymph # (Auto) Seg Neutrophils % Seg Neuts % (Manual) Lymphocytes % (Manual) Seg Neutrophils # Seg Neutrophils # Man Lymphocytes # (Manual) D-Dimer ABG pH ABG pO2 ABG HCO3 ABG O2 Saturation ABG Base Excess ABG Hemoglobin VBG pH Oxyhemoglobin Sodium Potassium Chloride Carbon Dioxide BUN Creatinine Glucose POC Glucose 317 H 325 H 308 H Lactic Acid Calcium Phosphorus Magnesium Ferritin Total Bilirubin Direct Bilirubin AST ALT Ammonia Lactate Dehydrogenase C-Reactive Protein Total Protein Albumin Urine Creatinine Urine Total Protein Coronavirus (PCR) 04/10/22 04/10/22 04/10/22 04:24 04:24 04:24 WBC 16.4 H RBC Hgb Hct RDW 16.2 H Plt Count Lymph % (Auto) Lymph # (Auto) Seg Neutrophils % Seg Neuts % (Manual) 94.0 H Lymphocytes % (Manual) 3.0 L Seg Neutrophils # Seg Neutrophils # Man 15.4 H Lymphocytes # (Manual) 0.5 L D-Dimer ABG pH ABG pO2 ABG HCO3 ABG O2 Saturation ABG Base Excess ABG Hemoglobin VBG pH Oxyhemoglobin Sodium Potassium 2.9 L* D Chloride 116.1 H Carbon Dioxide 11 L BUN 19 H Creatinine 2.5 H Glucose 376 H POC Glucose Lactic Acid Calcium 6.5 L Phosphorus 1.40 L Magnesium 1.60 L Ferritin Total Bilirubin Direct Bilirubin AST 107 H ALT 64 H Ammonia Lactate Dehydrogenase C-Reactive Protein Total Protein 5.5 L Albumin 2.8 L Urine Creatinine Urine Total Protein Coronavirus (PCR) 04/10/22 04/10/22 04/10/22 04:25 05:17 06:00 WBC RBC Hgb Hct RDW Plt Count Lymph % (Auto) Lymph # (Auto) Seg Neutrophils % Seg Neuts % (Manual) Lymphocytes % (Manual) Seg Neutrophils # Seg Neutrophils # Man Lymphocytes # (Manual) D-Dimer ABG pH 7.095 L* ABG pO2 112.3 H ABG HCO3 8.7 L ABG O2 Saturation ABG Base Excess -19.7 L ABG Hemoglobin VBG pH Oxyhemoglobin Sodium Potassium Chloride Carbon Dioxide BUN Creatinine Glucose POC Glucose 343 H 278 H Lactic Acid Calcium Phosphorus Magnesium Ferritin Total Bilirubin Direct Bilirubin AST ALT Ammonia Lactate Dehydrogenase C-Reactive Protein Total Protein Albumin Urine Creatinine Urine Total Protein Coronavirus (PCR) 04/10/22 04/10/22 04/10/22 06:53 07:54 08:58 WBC RBC Hgb Hct RDW Plt Count Lymph % (Auto) Lymph # (Auto) Seg Neutrophils % Seg Neuts % (Manual) Lymphocytes % (Manual) Seg Neutrophils # Seg Neutrophils # Man Lymphocytes # (Manual) D-Dimer ABG pH ABG pO2 ABG HCO3 ABG O2 Saturation ABG Base Excess ABG Hemoglobin VBG pH Oxyhemoglobin Sodium Potassium Chloride Carbon Dioxide BUN Creatinine Glucose POC Glucose 262 H 245 H 215 H Lactic Acid Calcium Phosphorus Magnesium Ferritin Total Bilirubin Direct Bilirubin AST ALT Ammonia Lactate Dehydrogenase C-Reactive Protein Total Protein Albumin Urine Creatinine Urine Total Protein Coronavirus (PCR) 04/10/22 04/10/22 04/10/22 10:12 10:51 11:47 WBC RBC Hgb Hct RDW Plt Count Lymph % (Auto) Lymph # (Auto) Seg Neutrophils % Seg Neuts % (Manual) Lymphocytes % (Manual) Seg Neutrophils # Seg Neutrophils # Man Lymphocytes # (Manual) D-Dimer ABG pH ABG pO2 ABG HCO3 ABG O2 Saturation ABG Base Excess ABG Hemoglobin VBG pH Oxyhemoglobin Sodium 148 H Potassium 3.4 L Chloride 116.7 H Carbon Dioxide 15 L BUN 22 H Creatinine 2.7 H Glucose 190 H POC Glucose 206 H 176 H Lactic Acid Calcium 6.9 L Phosphorus Magnesium Ferritin Total Bilirubin Direct Bilirubin AST ALT Ammonia Lactate Dehydrogenase C-Reactive Protein Total Protein Albumin Urine Creatinine Urine Total Protein Coronavirus (PCR) 04/10/22 04/10/22 04/10/22 11:47 11:47 12:02 WBC RBC Hgb Hct RDW Plt Count Lymph % (Auto) Lymph # (Auto) Seg Neutrophils % Seg Neuts % (Manual) Lymphocytes % (Manual) Seg Neutrophils # Seg Neutrophils # Man Lymphocytes # (Manual) D-Dimer ABG pH ABG pO2 ABG HCO3 ABG O2 Saturation ABG Base Excess ABG Hemoglobin VBG pH Oxyhemoglobin Sodium Potassium Chloride Carbon Dioxide BUN Creatinine Glucose POC Glucose 178 H Lactic Acid Calcium Phosphorus Magnesium Ferritin 1218.0 H Total Bilirubin Direct Bilirubin AST ALT Ammonia Lactate Dehydrogenase 482 H C-Reactive Protein 11.30 H Total Protein Albumin Urine Creatinine Urine Total Protein Coronavirus (PCR) 04/10/22 04/10/22 04/10/22 13:13 13:58 14:50 WBC RBC Hgb Hct RDW Plt Count Lymph % (Auto) Lymph # (Auto) Seg Neutrophils % Seg Neuts % (Manual) Lymphocytes % (Manual) Seg Neutrophils # Seg Neutrophils # Man Lymphocytes # (Manual) D-Dimer ABG pH ABG pO2 ABG HCO3 ABG O2 Saturation ABG Base Excess ABG Hemoglobin VBG pH Oxyhemoglobin Sodium Potassium Chloride Carbon Dioxide BUN Creatinine Glucose POC Glucose 160 H 150 H Lactic Acid Calcium Phosphorus Magnesium Ferritin Total Bilirubin Direct Bilirubin AST ALT Ammonia Lactate Dehydrogenase C-Reactive Protein Total Protein Albumin Urine Creatinine 224.2 H Urine Total Protein 172 H Coronavirus (PCR) 04/10/22 04/10/22 04/10/22 15:24 16:38 16:56 WBC RBC Hgb Hct RDW Plt Count Lymph % (Auto) Lymph # (Auto) Seg Neutrophils % Seg Neuts % (Manual) Lymphocytes % (Manual) Seg Neutrophils # Seg Neutrophils # Man Lymphocytes # (Manual) D-Dimer ABG pH ABG pO2 ABG HCO3 ABG O2 Saturation ABG Base Excess ABG Hemoglobin VBG pH Oxyhemoglobin Sodium Potassium Chloride Carbon Dioxide BUN Creatinine Glucose POC Glucose 140 H 154 H 149 H Lactic Acid Calcium Phosphorus Magnesium Ferritin Total Bilirubin Direct Bilirubin AST ALT Ammonia Lactate Dehydrogenase C-Reactive Protein Total Protein Albumin Urine Creatinine Urine Total Protein Coronavirus (PCR) 04/10/22 04/10/22 04/10/22 18:21 19:21 20:02 WBC RBC Hgb Hct RDW Plt Count Lymph % (Auto) Lymph # (Auto) Seg Neutrophils % Seg Neuts % (Manual) Lymphocytes % (Manual) Seg Neutrophils # Seg Neutrophils # Man Lymphocytes # (Manual) D-Dimer ABG pH ABG pO2 ABG HCO3 ABG O2 Saturation ABG Base Excess ABG Hemoglobin VBG pH Oxyhemoglobin Sodium Potassium Chloride Carbon Dioxide BUN Creatinine Glucose POC Glucose 141 H 126 H 139 H Lactic Acid Calcium Phosphorus Magnesium Ferritin Total Bilirubin Direct Bilirubin AST ALT Ammonia Lactate Dehydrogenase C-Reactive Protein Total Protein Albumin Urine Creatinine Urine Total Protein Coronavirus (PCR) 04/10/22 04/10/22 04/10/22 21:04 21:58 22:20 WBC RBC Hgb Hct RDW Plt Count Lymph % (Auto) Lymph # (Auto) Seg Neutrophils % Seg Neuts % (Manual) Lymphocytes % (Manual) Seg Neutrophils # Seg Neutrophils # Man Lymphocytes # (Manual) D-Dimer ABG pH ABG pO2 ABG HCO3 ABG O2 Saturation ABG Base Excess ABG Hemoglobin VBG pH Oxyhemoglobin Sodium Potassium Chloride 114.5 H Carbon Dioxide 17 L BUN 24 H Creatinine 2.5 H Glucose 165 H POC Glucose 144 H 161 H Lactic Acid Calcium 6.5 L Phosphorus Magnesium Ferritin Total Bilirubin Direct Bilirubin AST ALT Ammonia Lactate Dehydrogenase C-Reactive Protein Total Protein Albumin Urine Creatinine Urine Total Protein Coronavirus (PCR) 04/10/22 04/11/22 04/11/22 23:02 00:08 01:05 WBC RBC Hgb Hct RDW Plt Count Lymph % (Auto) Lymph # (Auto) Seg Neutrophils % Seg Neuts % (Manual) Lymphocytes % (Manual) Seg Neutrophils # Seg Neutrophils # Man Lymphocytes # (Manual) D-Dimer ABG pH ABG pO2 ABG HCO3 ABG O2 Saturation ABG Base Excess ABG Hemoglobin VBG pH Oxyhemoglobin Sodium Potassium Chloride Carbon Dioxide BUN Creatinine Glucose POC Glucose 160 H 148 H 156 H Lactic Acid Calcium Phosphorus Magnesium Ferritin Total Bilirubin Direct Bilirubin AST ALT Ammonia Lactate Dehydrogenase C-Reactive Protein Total Protein Albumin Urine Creatinine Urine Total Protein Coronavirus (PCR) 04/11/22 04/11/22 04/11/22 01:30 02:05 03:04 WBC RBC Hgb Hct RDW Plt Count Lymph % (Auto) Lymph # (Auto) Seg Neutrophils % Seg Neuts % (Manual) Lymphocytes % (Manual) Seg Neutrophils # Seg Neutrophils # Man Lymphocytes # (Manual) D-Dimer ABG pH ABG pO2 75.1 L ABG HCO3 17.2 L ABG O2 Saturation ABG Base Excess -5.8 L ABG Hemoglobin 11.5 L VBG pH Oxyhemoglobin Sodium Potassium Chloride Carbon Dioxide BUN Creatinine Glucose POC Glucose 150 H 168 H Lactic Acid Calcium Phosphorus Magnesium Ferritin Total Bilirubin Direct Bilirubin AST ALT Ammonia Lactate Dehydrogenase C-Reactive Protein Total Protein Albumin Urine Creatinine Urine Total Protein Coronavirus (PCR) 04/11/22 04/11/22 04/11/22 03:58 03:58 04:05 WBC 12.2 H RBC Hgb Hct RDW 15.7 H Plt Count Lymph % (Auto) Lymph # (Auto) Seg Neutrophils % Seg Neuts % (Manual) Lymphocytes % (Manual) Seg Neutrophils # Seg Neutrophils # Man Lymphocytes # (Manual) D-Dimer ABG pH ABG pO2 ABG HCO3 ABG O2 Saturation ABG Base Excess ABG Hemoglobin VBG pH Oxyhemoglobin Sodium 147 H Potassium Chloride 114.2 H Carbon Dioxide 19 L BUN 26 H Creatinine 2.5 H Glucose 154 H POC Glucose 151 H Lactic Acid Calcium 6.8 L Phosphorus Magnesium Ferritin Total Bilirubin Direct Bilirubin AST 106 H ALT 60 H Ammonia Lactate Dehydrogenase C-Reactive Protein Total Protein 5.6 L Albumin 2.7 L Urine Creatinine Urine Total Protein Coronavirus (PCR) 04/11/22 04/11/22 04/11/22 05:14 06:19 08:23 WBC RBC Hgb Hct RDW Plt Count Lymph % (Auto) Lymph # (Auto) Seg Neutrophils % Seg Neuts % (Manual) Lymphocytes % (Manual) Seg Neutrophils # Seg Neutrophils # Man Lymphocytes # (Manual) D-Dimer ABG pH ABG pO2 ABG HCO3 ABG O2 Saturation ABG Base Excess ABG Hemoglobin VBG pH Oxyhemoglobin Sodium Potassium Chloride Carbon Dioxide BUN Creatinine Glucose POC Glucose 134 H 144 H 143 H Lactic Acid Calcium Phosphorus Magnesium Ferritin Total Bilirubin Direct Bilirubin AST ALT Ammonia Lactate Dehydrogenase C-Reactive Protein Total Protein Albumin Urine Creatinine Urine Total Protein Coronavirus (PCR) 04/11/22 04/11/22 04/11/22 09:28 10:06 11:23 WBC RBC Hgb Hct RDW Plt Count Lymph % (Auto) Lymph # (Auto) Seg Neutrophils % Seg Neuts % (Manual) Lymphocytes % (Manual) Seg Neutrophils # Seg Neutrophils # Man Lymphocytes # (Manual) D-Dimer ABG pH ABG pO2 ABG HCO3 ABG O2 Saturation ABG Base Excess ABG Hemoglobin VBG pH Oxyhemoglobin Sodium Potassium Chloride Carbon Dioxide BUN Creatinine Glucose POC Glucose 138 H Lactic Acid Calcium Phosphorus Magnesium Ferritin Total Bilirubin Direct Bilirubin AST ALT Ammonia Lactate Dehydrogenase C-Reactive Protein Total Protein Albumin Urine Creatinine 161.8 H 160.5 H Urine Total Protein Coronavirus (PCR) 04/11/22 04/11/22 04/12/22 15:59 23:58 00:01 WBC 16.2 H RBC Hgb Hct RDW 15.8 H Plt Count Lymph % (Auto) 5.7 L Lymph # (Auto) 0.9 L Seg Neutrophils % 89.6 H Seg Neuts % (Manual) Lymphocytes % (Manual) Seg Neutrophils # 14.6 H Seg Neutrophils # Man Lymphocytes # (Manual) D-Dimer ABG pH ABG pO2 ABG HCO3 ABG O2 Saturation ABG Base Excess ABG Hemoglobin VBG pH Oxyhemoglobin Sodium Potassium Chloride Carbon Dioxide BUN Creatinine Glucose POC Glucose 166 H 150 H Lactic Acid Calcium Phosphorus Magnesium Ferritin Total Bilirubin Direct Bilirubin AST ALT Ammonia Lactate Dehydrogenase C-Reactive Protein Total Protein Albumin Urine Creatinine Urine Total Protein Coronavirus (PCR) 04/12/22 04/12/22 04/12/22 03:20 04:00 04:00 WBC RBC Hgb Hct RDW Plt Count Lymph % (Auto) Lymph # (Auto) Seg Neutrophils % Seg Neuts % (Manual) Lymphocytes % (Manual) Seg Neutrophils # Seg Neutrophils # Man Lymphocytes # (Manual) D-Dimer 1874.86 H ABG pH 7.513 H ABG pO2 61.7 L ABG HCO3 ABG O2 Saturation 94.2 L ABG Base Excess ABG Hemoglobin 11.5 L VBG pH Oxyhemoglobin 92.6 L Sodium Potassium Chloride Carbon Dioxide BUN Creatinine Glucose POC Glucose Lactic Acid Calcium Phosphorus Magnesium Ferritin 890.0 H Total Bilirubin Direct Bilirubin AST ALT Ammonia Lactate Dehydrogenase C-Reactive Protein Total Protein Albumin Urine Creatinine Urine Total Protein Coronavirus (PCR) 04/12/22 04/12/22 04/12/22 04:00 04:20 04:59 WBC RBC Hgb Hct RDW Plt Count Lymph % (Auto) Lymph # (Auto) Seg Neutrophils % Seg Neuts % (Manual) Lymphocytes % (Manual) Seg Neutrophils # Seg Neutrophils # Man Lymphocytes # (Manual) D-Dimer ABG pH ABG pO2 ABG HCO3 ABG O2 Saturation ABG Base Excess ABG Hemoglobin VBG pH Oxyhemoglobin Sodium 146 H Potassium Chloride 108.0 H Carbon Dioxide BUN 38 H Creatinine 2.3 H Glucose 173 H POC Glucose 146 H Lactic Acid Calcium 6.7 L Phosphorus Magnesium Ferritin Total Bilirubin Direct Bilirubin AST ALT Ammonia Lactate Dehydrogenase 763 H C-Reactive Protein 14.10 H Total Protein Albumin Urine Creatinine Urine Total Protein Coronavirus (PCR) 04/12/22 04/12/22 04/12/22 06:05 10:15 11:52 WBC RBC Hgb Hct RDW Plt Count Lymph % (Auto) Lymph # (Auto) Seg Neutrophils % Seg Neuts % (Manual) Lymphocytes % (Manual) Seg Neutrophils # Seg Neutrophils # Man Lymphocytes # (Manual) D-Dimer ABG pH ABG pO2 ABG HCO3 ABG O2 Saturation ABG Base Excess ABG Hemoglobin VBG pH Oxyhemoglobin Sodium Potassium Chloride Carbon Dioxide BUN Creatinine Glucose POC Glucose 190 H 122 H 125 H Lactic Acid Calcium Phosphorus Magnesium Ferritin Total Bilirubin Direct Bilirubin AST ALT Ammonia Lactate Dehydrogenase C-Reactive Protein Total Protein Albumin Urine Creatinine Urine Total Protein Coronavirus (PCR) 04/12/22 04/13/22 04/13/22 13:18 00:14 03:41 WBC RBC Hgb Hct RDW Plt Count Lymph % (Auto) Lymph # (Auto) Seg Neutrophils % Seg Neuts % (Manual) Lymphocytes % (Manual) Seg Neutrophils # Seg Neutrophils # Man Lymphocytes # (Manual) D-Dimer ABG pH 7.487 H ABG pO2 62.1 L ABG HCO3 ABG O2 Saturation 93.2 L ABG Base Excess ABG Hemoglobin 11.9 L VBG pH Oxyhemoglobin 91.5 L Sodium Potassium Chloride Carbon Dioxide BUN 38 H Creatinine 2.1 H Glucose 144 H POC Glucose 208 H Lactic Acid Calcium 7.1 L Phosphorus Magnesium Ferritin Total Bilirubin Direct Bilirubin AST ALT Ammonia Lactate Dehydrogenase C-Reactive Protein Total Protein Albumin Urine Creatinine Urine Total Protein Coronavirus (PCR) 04/13/22 04/13/22 04/14/22 04:31 04:31 03:54 WBC 13.9 H RBC Hgb Hct RDW 15.7 H Plt Count Lymph % (Auto) Lymph # (Auto) Seg Neutrophils % Seg Neuts % (Manual) Lymphocytes % (Manual) Seg Neutrophils # Seg Neutrophils # Man Lymphocytes # (Manual) D-Dimer ABG pH 7.487 H ABG pO2 57.8 L ABG HCO3 ABG O2 Saturation 93.9 L ABG Base Excess ABG Hemoglobin 10.0 L VBG pH Oxyhemoglobin 92.3 L Sodium Potassium Chloride Carbon Dioxide BUN 42 H Creatinine 1.9 H Glucose 204 H POC Glucose Lactic Acid Calcium 7.4 L Phosphorus Magnesium Ferritin Total Bilirubin Direct Bilirubin AST ALT Ammonia Lactate Dehydrogenase C-Reactive Protein Total Protein Albumin Urine Creatinine Urine Total Protein Coronavirus (PCR) 04/14/22 04/14/22 04/14/22 07:28 07:28 07:28 WBC RBC Hgb Hct RDW Plt Count Lymph % (Auto) Lymph # (Auto) Seg Neutrophils % Seg Neuts % (Manual) Lymphocytes % (Manual) Seg Neutrophils # Seg Neutrophils # Man Lymphocytes # (Manual) D-Dimer 5586.76 H ABG pH ABG pO2 ABG HCO3 ABG O2 Saturation ABG Base Excess ABG Hemoglobin VBG pH Oxyhemoglobin Sodium Potassium Chloride Carbon Dioxide BUN Creatinine Glucose POC Glucose Lactic Acid Calcium Phosphorus Magnesium Ferritin 454.7 H Total Bilirubin Direct Bilirubin AST ALT Ammonia Lactate Dehydrogenase 1345 H C-Reactive Protein 4.80 H Total Protein Albumin Urine Creatinine Urine Total Protein Coronavirus (PCR) 04/14/22 04/14/22 04/14/22 07:28 07:28 09:26 WBC 18.6 H RBC 3.59 L Hgb Hct RDW 15.6 H Plt Count Lymph % (Auto) Lymph # (Auto) Seg Neutrophils % Seg Neuts % (Manual) Lymphocytes % (Manual) Seg Neutrophils # Seg Neutrophils # Man Lymphocytes # (Manual) D-Dimer ABG pH ABG pO2 ABG HCO3 ABG O2 Saturation ABG Base Excess ABG Hemoglobin VBG pH Oxyhemoglobin Sodium 149 H Potassium Chloride 110.3 H Carbon Dioxide BUN 57 H Creatinine 2.3 H Glucose 205 H POC Glucose Lactic Acid Calcium Phosphorus Magnesium 2.90 H Ferritin Total Bilirubin Direct Bilirubin AST ALT Ammonia Lactate Dehydrogenase C-Reactive Protein Total Protein Albumin Urine Creatinine Urine Total Protein Coronavirus (PCR) 04/14/22 04/14/22 04/14/22 11:52 15:41 17:18 WBC RBC Hgb Hct RDW Plt Count Lymph % (Auto) Lymph # (Auto) Seg Neutrophils % Seg Neuts % (Manual) Lymphocytes % (Manual) Seg Neutrophils # Seg Neutrophils # Man Lymphocytes # (Manual) D-Dimer ABG pH 7.506 H ABG pO2 51.0 L ABG HCO3 ABG O2 Saturation 87.3 L ABG Base Excess ABG Hemoglobin 10.6 L VBG pH Oxyhemoglobin 85.4 L Sodium Potassium Chloride Carbon Dioxide BUN Creatinine Glucose POC Glucose 173 H 187 H Lactic Acid Calcium Phosphorus Magnesium Ferritin Total Bilirubin Direct Bilirubin AST ALT Ammonia Lactate Dehydrogenase C-Reactive Protein Total Protein Albumin Urine Creatinine Urine Total Protein Coronavirus (PCR) 04/15/22 04/15/22 04/15/22 00:03 03:43 05:47 WBC RBC Hgb Hct RDW Plt Count Lymph % (Auto) Lymph # (Auto) Seg Neutrophils % Seg Neuts % (Manual) Lymphocytes % (Manual) Seg Neutrophils # Seg Neutrophils # Man Lymphocytes # (Manual) D-Dimer ABG pH 7.477 H ABG pO2 59.1 L ABG HCO3 ABG O2 Saturation 90.5 L ABG Base Excess ABG Hemoglobin 9.5 L VBG pH Oxyhemoglobin 88.7 L Sodium Potassium Chloride Carbon Dioxide BUN Creatinine Glucose POC Glucose 246 H 217 H Lactic Acid Calcium Phosphorus Magnesium Ferritin Total Bilirubin Direct Bilirubin AST ALT Ammonia Lactate Dehydrogenase C-Reactive Protein Total Protein Albumin Urine Creatinine Urine Total Protein Coronavirus (PCR) 04/15/22 04/15/22 04/15/22 09:40 10:00 12:00 WBC 19.3 H RBC 3.18 L Hgb 9.3 L Hct 27.7 L RDW 15.8 H Plt Count Lymph % (Auto) Lymph # (Auto) Seg Neutrophils % Seg Neuts % (Manual) Lymphocytes % (Manual) Seg Neutrophils # Seg Neutrophils # Man Lymphocytes # (Manual) D-Dimer ABG pH ABG pO2 ABG HCO3 ABG O2 Saturation ABG Base Excess ABG Hemoglobin VBG pH Oxyhemoglobin Sodium 146 H Potassium Chloride 107.9 H Carbon Dioxide BUN 76 H Creatinine 1.9 H Glucose 214 H POC Glucose Lactic Acid 2.10 H* Calcium 7.7 L Phosphorus Magnesium Ferritin Total Bilirubin Direct Bilirubin AST ALT Ammonia Lactate Dehydrogenase C-Reactive Protein Total Protein Albumin Urine Creatinine Urine Total Protein Coronavirus (PCR) 04/15/22 04/15/22 04/15/22 12:21 17:51 21:39 WBC RBC Hgb Hct RDW Plt Count Lymph % (Auto) Lymph # (Auto) Seg Neutrophils % Seg Neuts % (Manual) Lymphocytes % (Manual) Seg Neutrophils # Seg Neutrophils # Man Lymphocytes # (Manual) D-Dimer ABG pH ABG pO2 ABG HCO3 ABG O2 Saturation ABG Base Excess ABG Hemoglobin VBG pH Oxyhemoglobin Sodium Potassium Chloride Carbon Dioxide BUN Creatinine Glucose POC Glucose 236 H 255 H 223 H Lactic Acid Calcium Phosphorus Magnesium Ferritin Total Bilirubin Direct Bilirubin AST ALT Ammonia Lactate Dehydrogenase C-Reactive Protein Total Protein Albumin Urine Creatinine Urine Total Protein Coronavirus (PCR) 04/16/22 04/16/22 04/16/22 00:17 02:35 04:00 WBC RBC Hgb Hct RDW Plt Count Lymph % (Auto) Lymph # (Auto) Seg Neutrophils % Seg Neuts % (Manual) Lymphocytes % (Manual) Seg Neutrophils # Seg Neutrophils # Man Lymphocytes # (Manual) D-Dimer ABG pH 7.318 L ABG pO2 71.1 L ABG HCO3 27.7 H ABG O2 Saturation 94.8 L ABG Base Excess ABG Hemoglobin 10.3 L VBG pH Oxyhemoglobin 92.9 L Sodium Potassium Chloride Carbon Dioxide BUN Creatinine Glucose POC Glucose 201 H Lactic Acid Calcium Phosphorus Magnesium Ferritin 446.2 H Total Bilirubin Direct Bilirubin AST ALT Ammonia Lactate Dehydrogenase C-Reactive Protein Total Protein Albumin Urine Creatinine Urine Total Protein Coronavirus (PCR) 04/16/22 04/16/22 04/16/22 04:00 06:00 Unknown WBC RBC Hgb Hct RDW Plt Count Lymph % (Auto) Lymph # (Auto) Seg Neutrophils % Seg Neuts % (Manual) Lymphocytes % (Manual) Seg Neutrophils # Seg Neutrophils # Man Lymphocytes # (Manual) D-Dimer 3886.80 H ABG pH ABG pO2 ABG HCO3 ABG O2 Saturation ABG Base Excess ABG Hemoglobin VBG pH Oxyhemoglobin Sodium 148 H Potassium Chloride 109.9 H Carbon Dioxide BUN 84 H Creatinine 1.7 H Glucose 276 H POC Glucose Lactic Acid Calcium Phosphorus Magnesium Ferritin Total Bilirubin Direct Bilirubin 0.5 H AST 69 H ALT 120 H Ammonia Lactate Dehydrogenase 1467 H C-Reactive Protein 1.90 H Total Protein 5.9 L Albumin 3.5 L Urine Creatinine Urine Total Protein Coronavirus (PCR) 04/16/22 04/17/22 04/17/22 Unknown 05:12 05:12 WBC 25.2 H 22.2 H RBC 3.50 L Hgb Hct RDW 15.8 H 15.8 H Plt Count Lymph % (Auto) Lymph # (Auto) Seg Neutrophils % Seg Neuts % (Manual) Lymphocytes % (Manual) Seg Neutrophils # Seg Neutrophils # Man Lymphocytes # (Manual) D-Dimer 3804.33 H ABG pH ABG pO2 ABG HCO3 ABG O2 Saturation ABG Base Excess ABG Hemoglobin VBG pH Oxyhemoglobin Sodium Potassium Chloride Carbon Dioxide BUN Creatinine Glucose POC Glucose Lactic Acid Calcium Phosphorus Magnesium Ferritin Total Bilirubin Direct Bilirubin AST ALT Ammonia Lactate Dehydrogenase C-Reactive Protein Total Protein Albumin Urine Creatinine Urine Total Protein Coronavirus (PCR) 04/17/22 04/17/22 04/17/22 05:12 17:27 20:04 WBC RBC Hgb Hct RDW Plt Count Lymph % (Auto) Lymph # (Auto) Seg Neutrophils % Seg Neuts % (Manual) Lymphocytes % (Manual) Seg Neutrophils # Seg Neutrophils # Man Lymphocytes # (Manual) D-Dimer ABG pH ABG pO2 ABG HCO3 ABG O2 Saturation ABG Base Excess ABG Hemoglobin VBG pH Oxyhemoglobin Sodium 149 H Potassium 5.3 H Chloride 109.4 H Carbon Dioxide BUN 80 H Creatinine 1.5 H Glucose 320 H POC Glucose 308 H 301 H Lactic Acid Calcium Phosphorus Magnesium Ferritin Total Bilirubin Direct Bilirubin AST 171 H ALT 231 H Ammonia Lactate Dehydrogenase C-Reactive Protein Total Protein 5.4 L Albumin 3.7 L Urine Creatinine Urine Total Protein Coronavirus (PCR) 05/26/22 05/26/22 05/26/22 01:55 05:41 05:41 WBC RBC Hgb Hct RDW Plt Count Lymph % (Auto) Lymph # (Auto) Seg Neutrophils % Seg Neuts % (Manual) Lymphocytes % (Manual) Seg Neutrophils # Seg Neutrophils # Man Lymphocytes # (Manual) D-Dimer ABG pH ABG pO2 ABG HCO3 ABG O2 Saturation ABG Base Excess ABG Hemoglobin VBG pH Oxyhemoglobin Sodium 156 H Potassium Chloride 117.8 H Carbon Dioxide BUN 69 H Creatinine 1.3 H Glucose 231 H POC Glucose 301 H Lactic Acid Calcium 8.3 L Phosphorus Magnesium Ferritin 570.8 H Total Bilirubin Direct Bilirubin AST ALT Ammonia Lactate Dehydrogenase 1473 H C-Reactive Protein Total Protein Albumin Urine Creatinine Urine Total Protein Coronavirus (PCR) 04/18/22 04/18/22 04/18/22 05:41 06:09 10:35 WBC 19.6 H RBC 3.38 L Hgb 9.7 L Hct 29.5 L RDW 15.9 H Plt Count Lymph % (Auto) Lymph # (Auto) Seg Neutrophils % Seg Neuts % (Manual) Lymphocytes % (Manual) Seg Neutrophils # Seg Neutrophils # Man Lymphocytes # (Manual) D-Dimer ABG pH ABG pO2 ABG HCO3 ABG O2 Saturation ABG Base Excess ABG Hemoglobin VBG pH Oxyhemoglobin Sodium 156 H Potassium Chloride 118.2 H Carbon Dioxide 32 H BUN 66 H Creatinine 1.3 H Glucose 179 H POC Glucose 210 H Lactic Acid Calcium 8.3 L Phosphorus Magnesium Ferritin Total Bilirubin Direct Bilirubin AST 91 H ALT 234 H Ammonia Lactate Dehydrogenase C-Reactive Protein Total Protein 5.3 L Albumin 3.4 L Urine Creatinine Urine Total Protein Coronavirus (PCR) 04/18/22 04/18/22 04/19/22 11:57 23:36 03:21 WBC RBC Hgb Hct RDW Plt Count Lymph % (Auto) Lymph # (Auto) Seg Neutrophils % Seg Neuts % (Manual) Lymphocytes % (Manual) Seg Neutrophils # Seg Neutrophils # Man Lymphocytes # (Manual) D-Dimer ABG pH ABG pO2 ABG HCO3 ABG O2 Saturation ABG Base Excess ABG Hemoglobin VBG pH Oxyhemoglobin Sodium Potassium Chloride Carbon Dioxide BUN Creatinine Glucose POC Glucose 161 H 209 H 184 H Lactic Acid Calcium Phosphorus Magnesium Ferritin Total Bilirubin Direct Bilirubin AST ALT Ammonia Lactate Dehydrogenase C-Reactive Protein Total Protein Albumin Urine Creatinine Urine Total Protein Coronavirus (PCR) 04/19/22 04/19/2222 04:00 04:00 05:58 WBC 18.2 H RBC Hgb Hct RDW 15.7 H Plt Count Lymph % (Auto) Lymph # (Auto) Seg Neutrophils % Seg Neuts % (Manual) Lymphocytes % (Manual) Seg Neutrophils # Seg Neutrophils # Man Lymphocytes # (Manual) D-Dimer ABG pH ABG pO2 ABG HCO3 ABG O2 Saturation ABG Base Excess ABG Hemoglobin VBG pH Oxyhemoglobin Sodium 160 H Potassium Chloride 119.7 H Carbon Dioxide 31 H BUN 60 H Creatinine 1.3 H Glucose 213 H POC Glucose 207 H Lactic Acid Calcium Phosphorus Magnesium Ferritin Total Bilirubin Direct Bilirubin AST 77 H ALT 208 H Ammonia Lactate Dehydrogenase C-Reactive Protein Total Protein 5.8 L Albumin 3.5 L Urine Creatinine Urine Total Protein Coronavirus (PCR) 04/19/22 04/19/22 04/19/22 11:25 17:35 21:56 WBC RBC Hgb Hct RDW Plt Count Lymph % (Auto) Lymph # (Auto) Seg Neutrophils % Seg Neuts % (Manual) Lymphocytes % (Manual) Seg Neutrophils # Seg Neutrophils # Man Lymphocytes # (Manual) D-Dimer ABG pH ABG pO2 ABG HCO3 ABG O2 Saturation ABG Base Excess ABG Hemoglobin VBG pH Oxyhemoglobin Sodium Potassium Chloride Carbon Dioxide BUN Creatinine Glucose POC Glucose 137 H 168 H 188 H Lactic Acid Calcium Phosphorus Magnesium Ferritin Total Bilirubin Direct Bilirubin AST ALT Ammonia Lactate Dehydrogenase C-Reactive Protein Total Protein Albumin Urine Creatinine Urine Total Protein Coronavirus (PCR) 04/19/22 04/20/22 04/20/22 22:32 01:10 04:17 WBC RBC Hgb Hct RDW Plt Count Lymph % (Auto) Lymph # (Auto) Seg Neutrophils % Seg Neuts % (Manual) Lymphocytes % (Manual) Seg Neutrophils # Seg Neutrophils # Man Lymphocytes # (Manual) D-Dimer ABG pH ABG pO2 ABG HCO3 31.9 H ABG O2 Saturation ABG Base Excess 5.7 H ABG Hemoglobin 10.3 L VBG pH Oxyhemoglobin 94.6 L Sodium 151 H D Potassium Chloride Carbon Dioxide BUN Creatinine Glucose POC Glucose Lactic Acid Calcium Phosphorus Magnesium Ferritin Total Bilirubin Direct Bilirubin AST ALT Ammonia Lactate Dehydrogenase C-Reactive Protein Total Protein Albumin Urine Creatinine 28.3 H Urine Total Protein Coronavirus (PCR) 05/28/22 05/28/22 05/28/22 06:00 06:00 06:29 WBC 18.7 H RBC 3.58 L Hgb Hct RDW 16.4 H Plt Count 130 L Lymph % (Auto) Lymph # (Auto) Seg Neutrophils % Seg Neuts % (Manual) Lymphocytes % (Manual) Seg Neutrophils # Seg Neutrophils # Man Lymphocytes # (Manual) D-Dimer ABG pH ABG pO2 ABG HCO3 ABG O2 Saturation ABG Base Excess ABG Hemoglobin VBG pH Oxyhemoglobin Sodium 156 H Potassium Chloride 118.3 H Carbon Dioxide 34 H BUN 52 H Creatinine Glucose 246 H POC Glucose 233 H Lactic Acid Calcium Phosphorus Magnesium Ferritin Total Bilirubin Direct Bilirubin AST ALT Ammonia Lactate Dehydrogenase C-Reactive Protein Total Protein Albumin Urine Creatinine Urine Total Protein Coronavirus (PCR) 04/20/22 04/20/22 04/21/22 11:12 Unknown 00:09 WBC RBC Hgb Hct RDW Plt Count Lymph % (Auto) Lymph # (Auto) Seg Neutrophils % Seg Neuts % (Manual) Lymphocytes % (Manual) Seg Neutrophils # Seg Neutrophils # Man Lymphocytes # (Manual) D-Dimer ABG pH ABG pO2 ABG HCO3 ABG O2 Saturation ABG Base Excess ABG Hemoglobin VBG pH Oxyhemoglobin Sodium 155 H Potassium Chloride Carbon Dioxide BUN Creatinine Glucose POC Glucose 224 H 205 H Lactic Acid Calcium Phosphorus Magnesium Ferritin Total Bilirubin Direct Bilirubin AST ALT Ammonia Lactate Dehydrogenase C-Reactive Protein Total Protein Albumin Urine Creatinine Urine Total Protein Coronavirus (PCR) 04/21/22 04/21/22 04/21/22 02:00 04:30 04:30 WBC 14.8 H RBC Hgb Hct RDW 15.9 H Plt Count 109 L Lymph % (Auto) Lymph # (Auto) Seg Neutrophils % Seg Neuts % (Manual) Lymphocytes % (Manual) Seg Neutrophils # Seg Neutrophils # Man Lymphocytes # (Manual) D-Dimer ABG pH ABG pO2 ABG HCO3 ABG O2 Saturation ABG Base Excess ABG Hemoglobin VBG pH Oxyhemoglobin Sodium 156 H 155 H Potassium Chloride 117.4 H Carbon Dioxide BUN 46 H Creatinine Glucose 178 H POC Glucose Lactic Acid Calcium Phosphorus Magnesium Ferritin Total Bilirubin Direct Bilirubin AST ALT Ammonia Lactate Dehydrogenase C-Reactive Protein Total Protein Albumin Urine Creatinine Urine Total Protein Coronavirus (PCR) 04/21/22 04/21/22 04/21/22 11:46 13:12 16:59 WBC RBC Hgb Hct RDW Plt Count Lymph % (Auto) Lymph # (Auto) Seg Neutrophils % Seg Neuts % (Manual) Lymphocytes % (Manual) Seg Neutrophils # Seg Neutrophils # Man Lymphocytes # (Manual) D-Dimer ABG pH ABG pO2 ABG HCO3 ABG O2 Saturation ABG Base Excess ABG Hemoglobin VBG pH Oxyhemoglobin Sodium 153 H Potassium Chloride Carbon Dioxide BUN Creatinine Glucose POC Glucose 113 H 112 H Lactic Acid Calcium Phosphorus Magnesium Ferritin Total Bilirubin Direct Bilirubin AST ALT Ammonia Lactate Dehydrogenase C-Reactive Protein Total Protein Albumin Urine Creatinine Urine Total Protein Coronavirus (PCR) 04/21/22 04/21/22 04/21/22 20:13 20:57 23:50 WBC RBC Hgb Hct RDW Plt Count Lymph % (Auto) Lymph # (Auto) Seg Neutrophils % Seg Neuts % (Manual) Lymphocytes % (Manual) Seg Neutrophils # Seg Neutrophils # Man Lymphocytes # (Manual) D-Dimer ABG pH ABG pO2 ABG HCO3 ABG O2 Saturation ABG Base Excess ABG Hemoglobin VBG pH Oxyhemoglobin Sodium 152 H Potassium Chloride Carbon Dioxide BUN Creatinine Glucose POC Glucose 128 H 146 H Lactic Acid Calcium Phosphorus Magnesium Ferritin Total Bilirubin Direct Bilirubin AST ALT Ammonia Lactate Dehydrogenase C-Reactive Protein Total Protein Albumin Urine Creatinine Urine Total Protein Coronavirus (PCR) 04/22/22 04/22/22 04/22/22 02:30 02:30 05:06 WBC 14.8 H RBC 3.41 L Hgb 9.9 L Hct RDW 16.2 H Plt Count 101 L Lymph % (Auto) Lymph # (Auto) Seg Neutrophils % Seg Neuts % (Manual) Lymphocytes % (Manual) Seg Neutrophils # Seg Neutrophils # Man Lymphocytes # (Manual) D-Dimer ABG pH ABG pO2 ABG HCO3 ABG O2 Saturation ABG Base Excess ABG Hemoglobin VBG pH Oxyhemoglobin Sodium 150 H Potassium Chloride 114.1 H Carbon Dioxide BUN 43 H Creatinine Glucose 186 H POC Glucose 167 H Lactic Acid Calcium Phosphorus Magnesium Ferritin Total Bilirubin Direct Bilirubin AST 46 H ALT 105 H Ammonia Lactate Dehydrogenase C-Reactive Protein Total Protein 4.9 L Albumin 3.2 L Urine Creatinine Urine Total Protein Coronavirus (PCR) 04/22/22 04/22/22 04/23/22 20:49 23:33 04:00 WBC 17.0 H RBC Hgb Hct RDW 16.2 H Plt Count 116 L Lymph % (Auto) Lymph # (Auto) Seg Neutrophils % Seg Neuts % (Manual) Lymphocytes % (Manual) Seg Neutrophils # Seg Neutrophils # Man Lymphocytes # (Manual) D-Dimer ABG pH ABG pO2 ABG HCO3 ABG O2 Saturation ABG Base Excess ABG Hemoglobin VBG pH Oxyhemoglobin Sodium Potassium Chloride Carbon Dioxide BUN Creatinine Glucose POC Glucose 208 H 210 H Lactic Acid Calcium Phosphorus Magnesium Ferritin Total Bilirubin Direct Bilirubin AST ALT Ammonia Lactate Dehydrogenase C-Reactive Protein Total Protein Albumin Urine Creatinine Urine Total Protein Coronavirus (PCR) 04/23/22 04/23/22 04/24/22 04:00 07:00 03:46 WBC 14.5 H RBC 3.34 L Hgb 9.6 L Hct 30.2 L RDW 16.8 H Plt Count 121 L Lymph % (Auto) Lymph # (Auto) Seg Neutrophils % Seg Neuts % (Manual) Lymphocytes % (Manual) Seg Neutrophils # Seg Neutrophils # Man Lymphocytes # (Manual) D-Dimer ABG pH ABG pO2 ABG HCO3 ABG O2 Saturation ABG Base Excess ABG Hemoglobin VBG pH Oxyhemoglobin Sodium 155 H Potassium Chloride 118.1 H Carbon Dioxide BUN 52 H Creatinine 1.3 H Glucose 223 H POC Glucose Lactic Acid Calcium Phosphorus Magnesium Ferritin Total Bilirubin Direct Bilirubin AST ALT Ammonia Lactate Dehydrogenase C-Reactive Protein Total Protein Albumin Urine Creatinine Urine Total Protein Coronavirus (PCR) Positive A 04/24/22 04/24/22 04/25/22 04:00 04:41 04:00 WBC RBC Hgb Hct RDW Plt Count Lymph % (Auto) Lymph # (Auto) Seg Neutrophils % Seg Neuts % (Manual) Lymphocytes % (Manual) Seg Neutrophils # Seg Neutrophils # Man Lymphocytes # (Manual) D-Dimer ABG pH ABG pO2 92.6 H ABG HCO3 27.5 H ABG O2 Saturation ABG Base Excess ABG Hemoglobin 9.6 L VBG pH Oxyhemoglobin Sodium 149 H 149 H Potassium Chloride 114.0 H 114.4 H Carbon Dioxide BUN 48 H 41 H Creatinine Glucose 145 H POC Glucose Lactic Acid Calcium Phosphorus Magnesium Ferritin Total Bilirubin Direct Bilirubin AST ALT Ammonia Lactate Dehydrogenase C-Reactive Protein Total Protein Albumin Urine Creatinine Urine Total Protein Coronavirus (PCR) 04/25/22 04:00 WBC 15.8 H RBC 3.08 L Hgb 8.9 L Hct 27.6 L RDW 16.7 H Plt Count 135 L Lymph % (Auto) Lymph # (Auto) Seg Neutrophils % Seg Neuts % (Manual) Lymphocytes % (Manual) Seg Neutrophils # Seg Neutrophils # Man Lymphocytes # (Manual) D-Dimer ABG pH ABG pO2 ABG HCO3 ABG O2 Saturation ABG Base Excess ABG Hemoglobin VBG pH Oxyhemoglobin Sodium Potassium Chloride Carbon Dioxide BUN Creatinine Glucose POC Glucose Lactic Acid Calcium Phosphorus Magnesium Ferritin Total Bilirubin Direct Bilirubin AST ALT Ammonia Lactate Dehydrogenase C-Reactive Protein Total Protein Albumin Urine Creatinine Urine Total Protein Coronavirus (PCR)
--- NOTE | 2022-04-25 15:18 | Progress Note ---
Assessment and Plan Assessment and plan: This is a 77-year-old female with DM and ovarian cancer in remission admitted for septic shock secondary to COVID-19 pneumonia, acute kidney injury, acute hypoxic respiratory failure and currently in multiorgan failure Neuro: Acute metabolic encephalopathy, myoclonic jerks -Myoclonic jerking aborted with Ativan early in admission but none noted since -Avoid delirium -Reorientation as needed -Maintain sleep-wake cycle -Neurology consulted, appreciate recommendations -Initial CT head showed no acute abnormality -EEG absence of definite epileptiform abnormalities would not rule out the possibility of epilepsy, compatible with moderate to moderately severe diffuse encephalopathy -Repeat CTH shows no acute abnormality -Abnormal EEG with findings consistent with possible encephalopathic process and/or drug effect, no epileptiform discharges appreciated -MRI brain limited by motion, mild microvascular angiopathy and cerebral atrophy without clear evidence of acute infarction Cardiac: NAD -Blood pressure monitoring per protocol -s/p vasopressor support with Levophed, dobutamine, vasopressin -MAP goal greater than 65 -Echocardiogram shows LVEF 55 to 60%, normal bivalve function, mildly dilated right ventricle Respiratory: Acute hypoxic respiratory failure, ARDS -CCM consulted, appreciate recommendations -Intubated in the emergency department 04/09 with 7.00 ETT at 22 the lips -A.m. vent settings: CPAP -See RT notes for titration -General surgery consulted for trach/peg->trach 04/24 -VAP bundle -SPO2 monitoring GI: Transaminitis -24 hours -1231 ml -PPI -NTR consult for tube feedings -FWF -s/p peg 04/24 -BR: [place] S, lactulose -Trend LFTs -Abdominal ultrasound shows hepatomegaly and hepatic steatosis, cholelithiasis without sonographic evidence of acute cholecystitis -Abdomen/pelvis CT shows changes suggestive of volume overload with diffuse anasarca and small amount of ascites scattered throughout the abdomen and pelvis, cholelithiasis/gallbladder sludge noted on early abdominal ultrasound, prominent bibasilar pleuralparenchymal disease -Lactulose q2 -BM 04/25 : Acute kidney injury likely secondary to ischemic acute tubular necrosis, hypernatremia -Nephrology consulted, appreciate recommendations -Strict intake and output -Renally dose medications -Avoid nephrotoxic medications -Daily weights -FeNa calculated at 0.13 -FWF -Renal ultrasound shows mild echogenic kidneys which can be seen in medical renal disease, no hydronephrosis, small amount of free fluid in the abdomen -s/p IV sodium bicarbonate drip and D5W -s/p D5W X 2 bags -04/13 lasix x1 -Trend BMP ID: Septic shock secondary to COVID-19 pneumonia, lactic acidosis -Infectious disease consulted, appreciate recommendations -Admit CXR showed bilateral air space opacities -Covid 19 PCR (+) -Repeat covid PCR positive -s/p Rocephin (04/11-04/15) and vancomycin (04/11-04/14) -abx per ID: cefepime (04/16-04/22), changed to meropenem (04/22) given new fevers -Decadron 8 mg daily for 10 days (04/09-04/18) -Per ID: Due to renal failure, not a candidate for remdesivir -S/p Actemra 04/10 -Contact/droplet precautions -f/u blood culture -Monitor WBC and temperature curve -Trend COVID-19 inflammatory markers Endo: s/p DKA, h/o DM -S/p insulin drip -Avoid hypoglycemia -SSI and long-acting insulin, titrate as needed -Accu-Cheks every 6 Heme: Leukocytosis, elevated Ddimer -BLE dopplar US shows no DVT -Trend CBC -Transfuse hemoglobin less than 7 -Lovenox subcu -Monitor for signs of bleeding -SCDs to BLE while in bed The high probability of a clinically significant, sudden or life threatening deterioration of the [multi] system(s) required my full and direct attention, intervention and personal management. The aggregate critical care time was [60] minutes. This time is in addition to time spent performing reported procedures but includes the following: [x] Data Review and interpretation [x] Patient assessment and monitoring of vital signs [x] Documentation [x] Medication orders and management Disposition Plan: icu Total Time Spent with Patient (Minutes): 60 History Interval history: This is a 77-year-old female with DM and ovarian cancer in remission s/p partial hysterectomy and oophorectomy presented to emergency department on 04/09 with altered mental status, weakness, shortness of breath over the past week with worsening symptoms on 04/09. Of note patient was not vaccinated for COVID-19. In the emergency department patient was very hypoxic on arrival and was placed o n 100% nonrebreather, patient was tachypneic and hypotensive and initially was alert and oriented however became lethargic and was intubated for airway protection. Work-up in the emergency department revealed leukocytosis, acute kidney injury, hypokalemia, hyperglycemia. Patient was admitted to the hospitalist service with consults to [facility] with septic shock, COVID-19 PUI, hypokalemia, acute kidney injury, acute metabolic encephalopathy, bilateral pneumonia, lactic acidosis and acute hypoxic respiratory failure. Hospital course to date: 04/10: Patient noted to have myoclonic jerking this morning and was given 2 mg of Ativan which aborted the jerking. Neurology was consulted and MRI and EEG were ordered. Patient admits [facility] for [facility] at this time. Patient is hypotensive and currently on Levophed, vasopressin and dobutamine. Nephrology consulted for renal failure. Remains on insulin drip and was placed on a bicarbonate drip this morning. Infectious disease consulted who added vancomycin and ordered follow-up labs. Dr. Craig had a conversation with family about prognosis and given multisystem organ failure. We will continue supportive care. 04/11/22-patient seen at bedside. T/V orally intubated. No purposeful response on assessment. make periodic jerking movement. EEG done today-will f/u with result. BICarb d/c -acidosis has improved-started on D5 11/28 NS. Reviewed specialist note and reces-renal US-no acute finding. Continue Pressors for MAPs >65. Wean as tolerated. Bicarb-d/c and start D5W. 04/12: Patient is following commands, nutrition consulted for tube feedings, PEEP decreased with possible PSV in the a.m., insulin drip discontinued and SSI/basal dose insulin started. [facility] will update son. 04/13: Renal function continues to improve, intermittently following commands, [facility] ordered 1 x 40 mg of Lasix repeat CXR in the a.m. Tolerating tube feedings. 04/14: PEEP increased per [facility], will not repeat Lasix again due to increasing renal functions. Ordered CT head. Overnight patient was tachypneic and agitated and Precedex drip was started. We will start Seroquel and wean Precedex as tolerated. 04/15: IVF started by nephro yesterday for hypernatremia, awaiting BMP for today to result. Overnight patient was started on propofol and has propofol and precedex infusing. Fentanyl gtt ordered and precedex gtt discontinued. 04/16: Patient remains on the vent, back on sedation overnight due to vent unsynchrony. Remains encephalopathic, EEG pending, Neurology reconsulted. Continue FWF Q4hrs for hypernatremia and SSI and basal insulin adjusted for better glycemic control. Worsening leukocytosis noted, patient remains afebrile. Patient completed X5 of IV Abx and still on IV steroids, will continue to monitor for now. ID is also following. D/C CCM plan for family phone conference with patient's son tomorrow to discuss goal of care. 04/17: Remains on the vent, mentation is unchanged, MRI and Neurology recs noted. FWF increased due to persistent hypernatremia, X1 dose of kayexalate was also given for hyperkalemia, renal function is improvement. Continue to monitor renal function and electrolytes. Insulin was adjusted for hyperglycemia. Plan for possible family conference meeting today with the assistant librarian. 04/18: With worsening hypernatremia this am despite Q4hrs FWF and X1 L of D5 per Nephro. Unclear etiology at this time. Will continue FWF for now and Nephro is also following. ABD US pending for elevated LTFs, will continue to trend LFTs. Still hyperglycemic, insulin adjusted. Patient's family opted for trach and PEG. General Surgery consulted. 04/19: Hypernatremia worsen this am, FWF held due to NPO status. Order placed for D5W X2bags, serial Na ordered. Will also check some urine lytes and serum osmo. CT ado/pelvis and Abd US noted, LFT downtrending. Will continue to trend LFTs. Plan for possible trach and PEG by general Surgery. 04/20: GILES overnight. Hypernatremia improved, continue D5W, FWF, and serial Na check. Possible trach and PEG sometimes next week by general Surgery. 04/21: Vomited this am, TF held, no gastric residual noted. Resume TF and IV Reglan added. Hypernatremia is unchanged continue FWF and serial Na per Nephro. Possible trach and PEG sometimes next week by general Surgery. 04/22: Antibiotics changed to meropenem given fevers, hypernatremia is improving, repeat COVID test ordered for tomorrow. 04/23: possible trach/peg in AM, NPO post MN, renal started on IVF given increase in Na. No acute events overnight 04/24: Repeat COVID-19 PCR positive, trach and PEG today. Was started on D5 W overnight and she was NPO. Will restart tube feedings 4 hours postprocedure. We will remove Cortez catheter, scheduled lactulose starting tomorrow and change fentanyl drip to IV push. 04/25: s/p trach and peg. Possible transfer to [facility] tomorrow, on PSV. Hospitalist Physical - Constitutional Vitals: Temp Pulse Resp BP Pulse Ox 98.1 F 107 H 22 129/65 100 04/25/22 12:00 04/25/22 14:00 04/25/22 14:00 04/25/22 14:04/25/22 14:00 General appearance: Present: no acute distress, well-nourished, obese, other (Intubated ) - EENT ENT: dentition normal - Neck Neck: Present: normal ROM - Respiratory Respiratory effort: normal Respiratory: bilateral: diminished - Cardiovascular Rhythm: regular Heart Sounds: Present: S1 & S2. Absent: systolic murmur, diastolic murmur - Extremities Extremities: no ischemia, pulses intact, pulses symmetrical, normal temperature, normal color Peripheral Pulses: within normal limits - Abdominal General gastrointestinal: soft, non-tender, non-distended, normal bowel sounds - Integumentary Integumentary: Present: warm, dry - Neurologic Neurologic: other (able to track and focus now, intermittantly attempts to follow commands) - Allied Health Allied health notes reviewed: nursing, RT, social work HEART Score - HEART Score Age: > 65 Risk factors: 1-2 risk factors Troponin: Troponin T < 0.010 ng/mL (0.00-0.029) 04/09/22 12:52 Troponin: < normal limit - Critical Actions Critical Actions: 4-6 pts:12-16.6% risk of adverse cardiac event. Should be admitted Results - Labs CBC & Chem 7: 04/25/22 04:00 04/25/22 04:00 Labs: Laboratory Last Values WBC 15.8 K/mm3 (4.5-11.0) H 04/25/22 04:00 RBC 3.08 M/mm3 (3.65-5.03) L 04/25/22 04:00 Hgb 8.9 gm/dl (10.1-14.3) L 04/25/22 04:00 Hct 27.6 % (30.3-42.9) L 04/25/22 04:00 MCV 89 fl (79-97) 04/25/22 04:00 MCH 29 pg (28-32) 04/25/22 04:00 MCHC 32 % (30-34) 04/25/22 04:00 RDW 16.7 % (13.2-15.2) H 04/25/22 04:00 Plt Count 135 K/mm3 (140-440) L 04/25/22 04:00 Lymph % (Auto) 5.7 % (13.4-35.0) L 04/12/22 00:01 Catron % (Auto) 4.5 % (0.0-7.3) 04/12/22 00:01 Eos % (Auto) 0.0 % (0.0-4.3) 04/12/22 00:01 Baso % (Auto) 0.2 % (0.0-1.8) 04/12/22 00:01 Lymph # (Auto) 0.9 K/mm3 (1.2-5.4) L 04/12/22 00:01 [place]ron # (Auto) 0.7 K/mm3 (0.0-0.8) 04/12/22 00:01 Eos # (Auto) 0.0 K/mm3 (0.0-0.4) 04/12/22 00:01 Baso # (Auto) 0.0 K/mm3 (0.0-0.1) 04/12/22 00:01 Add Manual Diff Complete 04/10/22 04:24 Total Counted 100 04/10/22 04:24 Seg Neutrophils % 89.6 % (40.0-70.0) H 04/12/22 00:01 Seg Neuts % (Manual) 94.0 % (40.0-70.0) H 04/10/22 04:24 Band Neutrophils % 0 % 04/10/22 04:24 Lymphocytes % (Manual) 3.0 % (13.4-35.0) L 04/10/22 04:24 Reactive Lymphs % (Man) 0 % 04/10/22 04:24 Monocytes % (Manual) 3.0 % (0.0-7.3) 04/10/22 04:24 Eosinophils % (Manual) 0 % (0.0-4.3) 04/10/22 04:24 Basophils % (Manual) 0 % (0.0-1.8) 04/10/22 04:24 Metamyelocytes % 0 % 04/10/22 04:24 Myelocytes % 0 % 04/10/22 04:24 Promyelocytes % 0 % 04/10/22 04:24 Blast Cells % 0 % 04/10/22 04:24 Nucleated RBC % Not Reportable 04/10/22 04:24 Seg Neutrophils # 14.6 K/mm3 (1.8-7.7) H 04/12/22 00:01 Seg Neutrophils # Man 15.4 K/mm3 (1.8-7.7) H 04/10/22 04:24 Band Neutrophils # 0.0 K/mm3 04/10/22 04:24 Lymphocytes # (Manual) 0.5 K/mm3 (1.2-5.4) L 04/10/22 04:24 Abs React Lymphs (Man) 0.0 K/mm3 04/10/22 04:24 Monocytes # (Manual) 0.5 K/mm3 (0.0-0.8) 04/10/22 04:24 Eosinophils # (Manual) 0.0 K/mm3 (0.0-0.4) 04/10/22 04:24 Basophils # (Manual) 0.0 K/mm3 (0.0-0.1) 04/10/22 04:24 Metamyelocytes # 0.0 K/mm3 04/10/22 04:24 Myelocytes # 0.0 K/mm3 04/10/22 04:24 Promyelocytes # 0.0 K/mm3 04/10/22 04:24 Blast Cells # 0.0 K/mm3 04/10/22 04:24 WBC Morphology Not Reportable 04/10/22 04:24 Hypersegmented Neuts Not Reportable 04/10/22 04:24 Hyposegmented Neuts Not Reportable 04/10/22 04:24 Hypogranular Neuts Not Reportable 04/10/22 04:24 Smudge Cells Not Reportable 04/10/22 04:24 Toxic Granulation Not Reportable 04/10/22 04:24 Toxic Vacuolation Not Reportable 04/10/22 04:24 Dohle Bodies Not Reportable 04/10/22 04:24 Pelger-Huet Anomaly Not Reportable 04/10/22 04:24 Aleja Rods Not Reportable 04/10/22 04:24 Platelet Estimate Consistent w auto 04/10/22 04:24 Clumped Platelets Not Reportable 04/10/22 04:24 Plt Clumps, EDTA Not Reportable 04/10/22 04:24 Large Platelets Not Reportable 04/10/22 04:24 Giant Platelets Rare 04/10/22 04:24 Platelet Satelliting Not Reportable 04/10/22 04:24 Plt Morphology Comment Not Reportable 04/10/22 04:24 RBC Morphology Normal 04/10/22 04:24 Dimorphic RBCs Not Reportable 04/10/22 04:24 Polychromasia Not Reportable 04/10/22 04:24 Hypochromasia Not Reportable 04/10/22 04:24 Poikilocytosis Not Reportable 04/10/22 04:24 Anisocytosis Not Reportable 04/10/22 04:24 Microcytosis Not Reportable 04/10/22 04:24 Macrocytosis Not Reportable 04/10/22 04:24 Spherocytes Not Reportable 04/10/22 04:24 Pappenheimer Bodies Not Reportable 04/10/22 04:24 Sickle Cells Not Reportable 04/10/22 04:24 Target Cells Not Reportable 04/10/22 04:24 Tear Drop Cells Not Reportable 04/10/22 04:24 Ovalocytes Not Reportable 04/10/22 04:24 Helmet Cells Not Reportable 04/10/22 04:24 Lao-Bieber Bodies Not Reportable 04/10/22 04:24 Divide Rings Not Reportable 04/10/22 04:24 Chani Cells Not Reportable 04/10/22 04:24 Bite Cells Not Reportable 04/10/22 04:24 Crenated Cell Not Reportable 04/10/22 04:24 Elliptocytes Not Reportable 04/10/22 04:24 Acanthocytes (Spur) Not Reportable 04/10/22 04:24 Rouleaux Not Reportable 04/10/22 04:24 Hemoglobin C Crystals Not Reportable 04/10/22 04:24 Schistocytes Not Reportable 04/10/22 04:24 Malaria parasites Not Reportable 04/10/22 04:24 Allan Bodies Not Reportable 04/10/22 04:24 Hem Pathologist Commnt No 04/10/22 04:24 PT 13.5 Sec. (12.2-14.9) 04/24/22 03:46 INR 0.93 (0.87-1.13) 04/24/22 03:46 APTT 25.9 Sec. (24.2-36.6) 04/24/22 03:46 D-Dimer 3804.33 ng/mlDDU (0-234) H 04/17/22 05:12 ABG pH 7.378 pH Units (7.350-7.450) 04/24/22 04:41 ABG pCO2 47.8 mm Hg 04/24/22 04:41 ABG pO2 92.6 mm Hg (80.0-90.0) H 04/24/22 04:41 ABG HCO3 27.5 mmol/L (20.0-26.0) H 04/24/22 04:41 ABG O2 Saturation 97.1 % (95.0-99.0) 04/24/22 04:41 ABG O2 Content 13.0 (0.0-44) 04/24/22 04:41 ABG Base Excess 2.0 mmol/L (-2.0-3.0) 04/24/22 04:41 ABG Hemoglobin 9.6 gm/dl (12.0-16.0) L 04/24/22 04:41 ABG Carboxyhemoglobin 1.5 % (0.0-5.0) 04/24/22 04:41 ABG Methemoglobin 0.6 % (0.0-1.5) 04/24/22 04:41 VBG pH 7.303 (7.320-7.420) L 04/09/22 12:52 Oxyhemoglobin 95.1 % (95.0-99.0) 04/24/22 04:41 FiO2 40 % 04/24/22 04:41 Sodium 149 mmol/L (137-145) H 04/25/22 04:00 Potassium 4.2 mmol/L (3.6-5.0) 04/25/22 04:00 Chloride 114.4 mmol/L (98-107) H 04/25/22 04:00 Carbon Dioxide 27 mmol/L (22-30) 04/25/22 04:00 Anion Gap 12 mmol/L 04/25/22 04:00 BUN 41 mg/dL (7-17) H 04/25/22 04:00 Creatinine 1.1 mg/dL (0.6-1.2) 04/25/22 04:00 Estimated GFR 58 ml/min 04/25/22 04:00 BUN/Creatinine Ratio 37 % 04/25/22 04:00 Glucose 94 mg/dL (65-100) 04/25/22 04:00 POC Glucose 120 mg/dL (70-105) H 04/25/22 12:17 Osmolality 361 Mosm/kg 04/19/22 12:10 Lactic Acid 2.10 mmol/L (0.7-2.0) H* 04/15/22 12:00 Calcium 8.5 mg/dL (8.4-10.2) 04/25/22 04:00 Phosphorus 3.60 mg/dL (2.5-4.5) 04/14/22 07:28 Magnesium 2.90 mg/dL (1.7-2.3) H 04/14/22 07:28 Ferritin 570.8 ng/mL (10.0-200.0) H 04/18/22 05:41 Total Bilirubin 0.60 mg/dL (0.1-1.2) 04/22/22 02:30 Direct Bilirubin 0.5 mg/dL (0-0.2) H 04/16/22 04:00 Indirect Bilirubin 0.4 mg/dL 04/16/22 04:00 AST 46 units/L (5-40) H 04/22/22 02:30 ALT 105 units/L (7-56) H 04/22/22 02:30 Alkaline Phosphatase 122 units/L (35-129) 04/22/22 02:30 Ammonia 20.0 umol/L (25-60) L 04/09/22 12:52 Lactate Dehydrogenase 1473 units/L (91-180) H 04/18/22 05:41 Troponin T < 0.010 ng/mL (0.00-0.029) 04/09/22 12:52 C-Reactive Protein 0.80 mg/dL (0.00-1.30) 04/18/22 05:41 NT-Pro-B Natriuret Pep 101.1 pg/mL (0-900) 04/09/22 13:45 Total Protein 4.9 g/dL (6.3-8.2) L 04/22/22 02:30 Albumin 3.2 g/dL (3.9-5) L 04/22/22 02:30 Albumin/Globulin Ratio 1.9 % 04/22/22 02:30 Procalcitonin 3.13 ng/mL (<0.15) 04/10/22 11:47 TSH 1.560 mlU/mL (0.270-4.200) 04/09/22 12:52 Free T4 1.33 ng/dL (0.76-1.46) 04/09/22 12:52 Urine Color Yellow (Yellow) 04/09/22 13:24 Urine Turbidity Clear (Clear) 04/09/22 13:24 Urine pH 5.0 (5.0-7.0) 04/09/22 13:24 Ur Specific [place] 1.011 (1.003-1.030) 04/09/22 13:24 Urine Protein 30 mg/dl mg/dL (Negative) 04/09/22 13:24 Urine Glucose (UA) Neg mg/dL (Negative) 04/09/22 13:24 Urine Ketones 20 mg/dL (Negative) 04/09/22 13:24 Urine Blood Neg (Negative) 04/09/22 13:24 Urine Nitrite Neg (Negative) 04/09/22 13:24 Urine Bilirubin Neg (Negative) 04/09/22 13:24 Urine Urobilinogen 4.0 mg/dL (<2.0) 04/09/22 13:24 Ur Leukocyte Esterase Neg (Negative) 04/09/22 13:24 Urine WBC (Auto) 2.0 /HPF (0.0-6.0) 04/09/22 13:24 Urine RBC (Auto) < 1.0 /HPF (0.0-6.0) 04/09/22 13:24 U Epithel Cells (Auto) < 1.0 /HPF (0-13.0) 04/09/22 13:24 Urine Mucus Few /HPF 04/09/22 13:24 Urine Eosinophils None seen (None Seen) 04/10/22 14:50 Urine Osmolality 415 Mosm/kg 04/19/22 22:32 Urine Total Volume 750 ml 04/11/22 11:23 Urine Creatinine 28.3 mg/dL (0.1-20.0) H 04/19/22 22:32 Ur Creatinine 24 Hour 1.2 (0.8-2.8) 04/11/22 11:23 Height (in) Not Reportable 04/11/22 11:23 Weight (lb) Not Reportable 04/11/22 11:23 Creatinine Clearance Not Reportable 04/11/22 11:23 Protein/Creatinin Ratio 0.77 04/10/22 14:50 Urine Sodium 89 mmol/L 04/19/22 22:32 Urine Total Protein 172 mg/dL (5-11.8) H 04/10/22 14:50 Random Vancomycin 11.9 ug/mL (0-40.0) 04/11/22 03:58 Urine Opiates Screen Presumptive negative 04/09/22 22:58 Urine Methadone Screen Presumptive negative 04/09/22 22:58 Ur Barbiturates Screen Presumptive negative 04/09/22 22:58 Ur Phencyclidine Scrn Presumptive negative 04/09/22 22:58 Ur Amphetamines Screen Presumptive negative 04/09/22 22:58 U Benzodiazepines Scrn Presumptive negative 04/09/22 22:58 Urine Cocaine Screen Presumptive negative 04/09/22 22:58 U Marijuana (THC) Screen Presumptive negative 04/09/22 22:58 Drugs of Abuse Note Disclamer 04/09/22 22:58 Coronavirus (PCR) Positive (Negative) A 04/23/22 07:00 Influenza A (RT-PCR) Negative (Negative) 04/09/22 14:15 Influenza B (RT-PCR) Negative (Negative) 04/09/22 14:15 Microbiology: Microbiology 04/23/22 11:05 Tracheal Aspirate Sputum Culture - Final 04/23/22 11:22 Peripheral/Venous Blood Culture - Preliminary NO GROWTH AFTER 48 HOURS 04/23/22 10:05 Peripheral/Venous Blood Culture - Preliminary NO GROWTH AFTER 48 HOURS Cortez/IV: Voiding Method External Female Catheter Active Medications - Current Medications Current Medications: Generic Name Dose Route Start Last Admin Trade Name Freq PRN Reason Stop Dose Admin Acetaminophen 650 mg 04/09/22 18:11 04/22/22 20:06 Acetaminophen 325 Mg Tab PO 650 mg Q4H PRN Administration Pain MILD(1-3)/Fever >100.5/CARCAMO Dextrose 0 ml 04/10/22 00:40 Dextrose 50% In Water (25gm) 50 Ml Syringe IV Q30MIN PRN Hypoglycemia Protocol Famotidine 20 mg 04/22/22 10:00 04/25/22 09:51 Famotidine 20 Mg Tab FEEDTUBE 20 mg BID JO ANN Administration Fentanyl 50 mcg 04/24/22 13:38 Fentanyl 100 Mcg/2 Ml Inj IV Q2HR PRN Pain , Severe (7-10) Heparin Sodium (Porcine) 5,000 unit 04/17/22 10:00 04/25/22 09:51 Heparin 5,000 Unit/1 Ml Vial SUB-Q 5,000 unit Q12HR JO ANN Administration Meropenem/Sodium Chloride 1 gram in 100 mls @ 100 mls/hr 04/22/22 12:00 04/25/22 12:18 Merrem/Ns 1 Gram/100 Ml IV 100 mls/hr Q8H JO ANN Administration Protocol Insulin Glargine 50 units 04/23/22 22:00 04/24/22 21:50 Insulin Glargine 100 Units/Ml SUB-Q 50 units QHS JO ANN Administration Insulin Human Lispro 0 unit 04/18/22 12:00 04/25/22 12:19 Insulin Lispro 100 Unit/Ml SUB-Q Not Given Q6HR [facility] Protocol Lactulose 20 gm 04/24/22 20:00 04/25/22 13:14 Lactulose 20 Gm/30 Ml Oral Liqd PO Not Given Q6H [facility] Metoprolol Tartrate 5 mg 04/22/22 17:01 04/22/22 17:19 Metoprolol Tartrate 5 Mg/5 Ml Inj IV 5 mg Q6H PRN Administration HR >/= 120 Ondansetron HCl 4 mg 04/09/22 18:11 Ondansetron 4 Mg/2 Ml Inj IV Q8H PRN Nausea And Vomiting Senna/Docusate Sodium 2 tab 04/15/22 14:00 04/25/22 09:51 Sennosides/Docusate Sodium 8.6/50 Mg Tab FEEDTUBE 2 tab BID JO ANN Administration Sodium Chloride 10 ml 04/09/22 22:00 04/25/22 09:51 Sodium Chloride 0.9% 10 Ml Flush Syringe IV 10 ml BID JO ANN Administration Sodium Chloride 10 ml 04/09/22 18:11 Sodium Chloride 0.9% 10 Ml Flush Syringe IV PRN PRN LINE FLUSH Nutrition/Malnutrition Assess - Dietary Evaluation Nutrition/Malnutrition Findings: Nutrition Notes Start: 04/12/22 10:07 Freq: Status: Active Protocol: Document 04/22/22 17:08 IZA (Rec: 04/22/22 17:45 IZA [id number]) Nutrition Notes Initial or Follow up Reassessment Current Diagnosis Acute Kidney Injury,Diabetes, Sepsis,Respiratory Failure Other Pertinent Diagnosis COVID-10, Pneumonia, Hypotension, s/p DKA, Metabolic Acidosis. Current Diet TF-Glucerna 1.2 Sean @ 55 ml/hr (since D 04/18). Labs/Tests 04/22: Na 150, Cl 114.1, BUN 43, Glu 186. Pertinent Medications 04/22: Lantus 40 U, others nutritionally unremarkable. Height 5 ft 7 in Weight 88.7 kg [place] Body Weight (kg) 61.36 BMI 30.6 Intake Prior to Admission Poor Weight change and time frame Pt states being unsure if loss body weight [employer]. 5.6 Kg body weight gain in 1 week reported. Weight Status Obese Subjective/Other Information RD consulkt for routine F/U on TF tolerance and continuation . TF continues as prescribed. RN notes on 04/21/22 09:11: 0730-Patient noted to have vomited undigested tube feeds. Tube feeds held at this time. 0915-Dr. Matthews and this nurse discussed patient status. Ok to restart tube feeds after 4 hours if residuals <50 cc. Patient to still receive 400 cc water flushes q4 hours due to hypernatremia. Patient ok to receive medications through Left Nare dobhoff. Pt continues on Mechanical ventilation, O2 saturation @ 98%, according to Physical Assessment History notes. Pt has missing teeth, according to Physical Assessment History notes. Pt presents an unspecified Area of Concern on skin, according to Physical Assessment History notes. Plans for Trach/PEG tube placement later this week, according to Progress notes. Percent of energy/protein needs met: Prescribed TF-Glucerna 1.2 Sean @ 55 ml/hr provides for energy/protein needs (1,584 Kcal/79 g) during LOS, 94% Kcal; 88% AA. Burn Absent Trauma Absent GI Symptoms None Difficulty In Swallowing Food Allergy No Skin Integrity/Comment Unspecified Area of Concern. Current % PO Other Minimum of two criteria No #1 Nutrition Diagnosis Inadequate oral intake Diagnosis Progress(for reassessment Continues documentation) Is patient on ventilator? Yes Is Patient Ambulatory and/or Out of Bed No REE-([facility]-confined to bed) 2781.277 Calculation Used for Recommendations [facility] Additional Notes Protein: 1.2-2 g/Kg AdjBW; 90- 140 g/day. Fluids: 1 ml/Kcal, or as per MD. Nutrition Intervention Nutrition Support: Continue TF-Glucerna 1.2 Sean @ 55 ml/hr. Flush: 100 ml water Q 4 hr, or as per MD. Kcal 1,584 Protein (gm) 79 Carbohydrates (gm) 151 Fat (gm) 79 Fluid (mL) 1,063 Fiber (gm) 21 % RDI: 94% Kcal; 88% AA. Goal #1 Provide at least 75% of energy /protein needs through Enteral Feeding during LOS. Goal #2 Maintain body weight within +/ -3% of admission body weight during LOS. Follow-Up By: 04/29/22 Additional Comments Continue monitoring Mechanical Ventilation status, renal function, TF tolerance and BM.
--- NOTE | 2022-04-25 15:45 | Progress Note ---
Assessment and Plan Cultures: SARS CoV2 PCR: Positive Influenza PCR: Negative 04/09/2022 blood culture: no growth. 04/09/2022 resp culture: Usual respiratory catherine A/P: 77-year-old female with diabetes, history of ovarian cancer believed to be in remission was admitted with altered mental status: #Septic shock, probably secondary to severe COVID-19. ABG showed severe acidosis. UA without pyuria. Chest x-ray showed bilateral airspace opacities. Off pressors now. #Bilateral pneumonia: Secondary to COVID-19. Unvaccinated. Actemra administered 04/10/2022. CRP 11.3, procalcitonin 3.3, ferritin 1218, LDH 482. #Acute hypoxic respiratory failure: Requiring mechanical ventilation. #ASHLEY: Renally adjust antibiotics. #Transaminitis #Acute encephalopathy: Neurology following. Recs: -IV/PO Dexamethasone x 10 days -Due to renal failure, not a candidate for Remdesivir -S/p Actemra 04/10/2022 -prophylactic anticoagulation based on d-dimer per hospital protocol -Complete 7 days meropenem -trend ferritin, d-dimer, CRP every 2-3 days -Guarded prognosis Laura Sahu MD [facility] O: [phone] F: [phone] Subjective Date of service: 04/25/22 Principal diagnosis: encephalopathy Interval history: Afebrile, white count increased to 15.8. Cultures are remain negative. Objective - Exam Narrative Exam: Physical Exam: Constitutional: sedated, intubated, on the vent Head, Ears, Nose: Normocephalic, atraumatic. External ears, nose normal Eyes: Conjunctivae/corneas clear. No icterus. No ptosis. Neck: intubated Oral: intubated Cardiovascular: S1, S2 + Respiratory: AE fair bilaterally and equal GI: Soft, bowel sounds + Musculoskeletal: No pedal edema, no cyanosis. Skin: No rash or abscess Hem/Lymphatic: No palpable cervical or supraclavicular nodes. Psych: no agitation Neurological: sedated, intubated, on the vent, exam limited - Constitutional Vitals: Vital Signs Temp Pulse Resp BP Pulse Ox 98.1 F 107 H 22 129/65 100 04/25/22 12:00 04/25/22 14:00 04/25/22 14:00 04/25/22 14:00 04/25/22 14:00 Temperature -Last 24 Hours Temperature 98.1 F Temperature 98.1 F Temperature 97.8 F Temperature 97.8 F Temperature 97.9 F Temperature 98.3 F - Labs CBC & Chem 7: 04/25/22 04:00 04/25/22 04:00 Labs: Abnormal lab results 04/24/22 04/25/22 04/25/22 Range/Units 18:00 04:00 04:00 WBC 15.8 H (4.5-11.0) K/mm3 RBC 3.08 L (3.65-5.03) M/mm3 Hgb 8.9 L (10.1-14.3) gm/dl Hct 27.6 L (30.3-42.9) % RDW 16.7 H (13.2-15.2) % Plt Count 135 L (140-440) K/mm3 Sodium 149 H (137-145) mmol/L Chloride 114.4 H (98-107) mmol/L BUN 41 H (7-17) mg/dL POC Glucose 146 H (70-105) mg/dL 04/25/22 Range/Units 12:17 WBC (4.5-11.0) K/mm3 RBC (3.65-5.03) M/mm3 Hgb (10.1-14.3) gm/dl Hct (30.3-42.9) % RDW (13.2-15.2) % Plt Count (140-440) K/mm3 Sodium (137-145) mmol/L Chloride (98-107) mmol/L BUN (7-17) mg/dL POC Glucose 120 H (70-105) mg/dL
[2022-04-25] MEDS: INSULIN GLARGINE 100 UNITS/ML SUB-Q SCH (21:19)
[2022-04-26] MEDS: LACTULOSE 20 GM/30 ML ORAL LIQD PO SCH ×3 (01:46→07:46)
[2022-04-26] MEDS: SENNOSIDES/DOCUSATE SODIUM 8.6/50 MG TAB FEEDTUBE SCH ×2 (01:47→09:43)
[2022-04-26] MEDS: INSULIN LISPRO 100 UNIT/ML SUB-Q SCH ×3 (01:48→13:04)
[2022-04-26] MEDS: FREE WATER PO SCH ×3 (02:00→09:49)
[2022-04-26] MEDS: MEROPENEM/NS 1 GRAM/100 ML 1 GRAM/100 ML BAG IV SCH ×2 (04:01→13:04)
[2022-04-26 04:59] LABS: ABG Base Excess 2.1 mmol/L (-2.0-3.0); ABG HCO3 25.9 mmol/L (20.0-26.0); ABG Methemoglobin 0.7 % (0.0-1.5); ABG Oxygen Saturation 98.9 % (95.0-99.0); ABG PCO2 37.3 mm Hg; ABG PH 7.46 pH Units (7.350-7.450); ABG PO2 145.9 mm Hg (80.0-90.0)
[2022-04-26 08:50] LABS: Hematocrit 26.7 % (30.3-42.9); Hemoglobin 8.8 gm/dl (10.1-14.3); Mean Corpuscular HGB Conc 33 % (30-34); Mean Corpuscular Volume 90 fl (79-97); Platelet Count 146 K/mm3 (140-440); Red Blood Count 2.98 M/mm3 (3.65-5.03); Red Cell Distribution Width 16.8 % (13.2-15.2)
[2022-04-26 09:10] LABS: BUN/Creatinine Ratio 31; Blood Urea Nitrogen 31 mg/dL (7-17); Calcium 8.4 mg/dL (8.4-10.2); Hemolysis Index 1
[2022-04-26] MEDS: FAMOTIDINE 20 MG TAB FEEDTUBE SCH (09:49)
[2022-04-26] MEDS: HEPARIN 5,000 UNIT/1 ML VIAL SUB-Q SCH (09:49)
--- NOTE | 2022-04-26 09:55 | Progress Note ---
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 Subjective Date of service: 04/26/22 Principal diagnosis: encephalopathy Interval history: in ICU Objective - Vital Signs Vital signs: Vital Signs - 12hr 04/25/22 04/25/22 04/25/22 22:00 23:00 23:53 Temperature Pulse Rate 104 H 100 H 103 H Pulse Rate [ From Monitor] Respiratory 19 20 7 L Rate Blood Pressure 135/64 133/68 133/67 O2 Sat by Pulse 100 100 97 Oximetry O2 Sat by Pulse 97 Oximetry [ Assessment] 04/26/22 04/26/22 04/26/22 00:00 01:00 02:00 Temperature 98.2 F Pulse Rate 101 H 110 H 107 H Pulse Rate [ 106 H From Monitor] Respiratory 23 25 H 24 Rate Blood Pressure 133/67 147/65 128/57 O2 Sat by Pulse 100 100 100 Oximetry O2 Sat by Pulse Oximetry [ Assessment] 04/26/22 04/26/22 04/26/22 03:00 04:00 05:00 Temperature 98.8 F Pulse Rate 103 H 104 H 104 H Pulse Rate [ 104 H From Monitor] Respiratory 23 20 23 Rate Blood Pressure 111/63 116/59 121/64 O2 Sat by Pulse 100 100 100 Oximetry O2 Sat by Pulse Oximetry [ Assessment] 04/26/22 04/26/22 04/26/22 06:00 07:00 07:30 Temperature Pulse Rate 103 H 105 H 108 H Pulse Rate [ From Monitor] Respiratory 22 18 Rate Blood Pressure 128/65 125/68 112/70 O2 Sat by Pulse 100 100 100 Oximetry O2 Sat by Pulse 100 Oximetry [ Assessment] 04/26/22 04/26/22 08:00 09:00 Temperature 97.8 F Pulse Rate 99 H 101 H Pulse Rate [ 99 H From Monitor] Respiratory 21 25 H Rate Blood Pressure 128/74 105/66 O2 Sat by Pulse 100 100 Oximetry O2 Sat by Pulse Oximetry [ Assessment] - Lab 04/26/22 08:15 04/26/22 08:15 Most recent lab results ABG pH 7.460 pH Units (7.350-7.450) H 04/26/22 04:10 ABG pCO2 37.3 mm Hg 04/26/22 04:10 ABG pO2 145.9 mm Hg (80.0-90.0) H 04/26/22 04:10 ABG HCO3 25.9 mmol/L (20.0-26.0) 04/26/22 04:10 ABG O2 Saturation 98.9 % (95.0-99.0) 04/26/22 04:10 Calcium 8.4 mg/dL (8.4-10.2) 04/26/22 08:15 Phosphorus 3.60 mg/dL (2.5-4.5) 04/14/22 07:28 Magnesium 2.90 mg/dL (1.7-2.3) H 04/14/22 07:28 Urine Creatinine 28.3 mg/dL (0.1-20.0) H 04/19/22 22:32 Urine Sodium 89 mmol/L 04/19/22 22:32 Urine Total Protein 172 mg/dL (5-11.8) H 04/10/22 14:50 Medications & Allergies - Medications Allergies/Adverse Reactions: Allergies No Known Allergies Allergy (Verified 04/09/22 13:44) Home Medications: Home Medications Medication Instructions Recorded Confirmed Last Taken Type Gabapentin 600 mg PO TID 04/23/22 04/23/22 Unknown History PARoxetine 10 mg PO QDAY 04/23/22 04/23/22 Unknown History acetaZOLAMIDE 250 mg PO QDAY 04/23/22 04/23/22 Unknown History cloNIDine 0.1 mg PO BID 04/23/22 04/23/22 Unknown History metFORMIN 500 mg PO BID 04/23/22 04/23/22 Unknown History Active Medications: Generic Name Dose Route Start Last Admin Trade Name Freq PRN Reason Stop Dose Admin Acetaminophen 650 mg 04/09/22 18:11 04/22/22 20:06 Acetaminophen 325 Mg Tab PO 650 mg Q4H PRN Administration Pain MILD(1-3)/Fever >100.5/CARCAMO Dextrose 0 ml 04/10/22 00:40 04/26/22 00:29 Dextrose 50% In Water (25gm) 50 Ml Syringe IV 15 ml Q30MIN PRN Administration Hypoglycemia Protocol Famotidine 20 mg 04/22/22 10:00 04/26/22 09:49 Famotidine 20 Mg Tab FEEDTUBE 20 mg BID JO ANN Administration Fentanyl 50 mcg 04/24/22 13:38 Fentanyl 100 Mcg/2 Ml Inj IV Q2HR PRN Pain , Severe (7-10) Heparin Sodium (Porcine) 5,000 unit 04/17/22 10:00 04/26/22 09:49 Heparin 5,000 Unit/1 Ml Vial SUB-Q 5,000 unit Q12HR JO ANN Administration Meropenem/Sodium Chloride 1 gram in 100 mls @ 100 mls/hr 04/22/22 12:00 04/26/22 04:01 Merrem/Ns 1 Gram/100 Ml IV 100 mls/hr Q8H JO ANN Administration Protocol Insulin Glargine 25 units 04/26/22 22:00 Insulin Glargine 100 Units/Ml SUB-Q [facility] Insulin Human Lispro 0 unit 04/18/22 12:00 04/26/22 06:36 Insulin Lispro 100 Unit/Ml SUB-Q Not Given Q6HR [facility] Protocol Metoprolol Tartrate 5 mg 04/22/22 17:01 04/22/22 17:19 Metoprolol Tartrate 5 Mg/5 Ml Inj IV 5 mg Q6H PRN Administration HR >/= 120 Ondansetron HCl 4 mg 04/09/22 18:11 Ondansetron 4 Mg/2 Ml Inj IV Q8H PRN Nausea And Vomiting Senna/Docusate Sodium 2 tab 04/15/22 14:00 04/26/22 09:43 Sennosides/Docusate Sodium 8.6/50 Mg Tab FEEDTUBE Not Given BID JO ANN Sodium Chloride 10 ml 04/09/22 22:00 04/26/22 09:49 Sodium Chloride 0.9% 10 Ml Flush Syringe IV 10 ml BID JO ANN Administration Sodium Chloride 10 ml 04/09/22 18:11 Sodium Chloride 0.9% 10 Ml Flush Syringe IV PRN PRN LINE FLUSH
[2022-04-26] MEDS ORDERED: FREE WATER PO SCH (10:00)
--- NOTE | 2022-04-26 11:23 | Discharge Summary ---
Providers - Providers Date of Admission: 04/09/22 18:11 Date of discharge: 04/26/22 Attending physician: SHAKEEL HARRIS MD 04/09/22 18:11 Consult to Physician [CONS] Routine Comment: Consulting Provider: PILY ESCALANTE Physician Instructions: Reason For Exam: Acute respiratory failure with hypoxia 04/10/22 07:59 Consult to Physician [CONS] Routine Comment: called office/ luis Consulting Provider: SARAY SIMON Physician Instructions: Reason For Exam: covid 19 04/10/22 09:38 Consult to Physician [CONS] Routine Comment: called office/ luis Consulting Provider: ELLA YOO Physician Instructions: Reason For Exam: seizure/ams 04/10/22 09:42 Consult to Physician [CONS] Routine Comment: called off. left mess. 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 access Type Line:: PICC 04/16/22 10:42 Consult to Physician [CONS] Routine Comment: Consulting Provider: BLANKA NAIDU Physician Instructions: Reason For Exam: Encephalopathy 04/18/22 07:21 Consult to Physician [CONS] Routine Comment: called office/ luis Consulting Provider: JULISSA PHILIP Physician Instructions: Reason For Exam: trach and peg 04/18/22 10:20 Consult to Physician [CONS] Routine Comment: Consulting Provider: JULISSA PHILIP Physician Instructions: Reason For Exam: Trach and Peg Evaluation 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 Of note patient was not vaccinated for COVID-19. In the emergency department patient was very hypoxic on arrival and was placed on 100% nonrebreather, patient was tachypneic and hypotensive and initially was alert and oriented however became lethargic and was intubated for airway protection. Work-up in the emergency department revealed leukocytosis, acute kidney injury, hypokalemia, hyperglycemia. Patient was admitted to the hospitalist service with consults to [facility] with septic shock, COVID-19 PUI, hypokalemia, acute kidney injury, acute metabolic encephalopathy, bilateral pn eumonia, lactic acidosis and acute hypoxic respiratory failure. On 04/10 patient was noted to have myoclonic jerking was given 2 mg of Ativan which aborted the jerking and neurology was consulted. MRI and EEG pending however the patient was on Levophed, vasopressin and dobutamine at this time therefore unstable for MRI. Patient still remains on insulin drip, and was placed on a bicarbonate drip, infectious disease also added vancomycin antibiotic regimen. On 04/11 patient had EEG completed, bicarbonate drip was discontinued and still remained on vasopressor support. On 04/12 PEEP was decreased, insulin drip was discontinued and patient was noted to have been following commands. On 04/13 her renal function continued to improve, intermittently following commands, and given Lasix. On 04/14 ventilatory settings were increased, renal function tests worsened and Lasix was discontinued, CT head was ordered and started on a Precedex drip therefore she was started on Seroquel with plans to wean Precedex as tolerated. On 04/15 patient was started on IV fluids for hypernatremia by nephrology and the patient was started on propofol overnight with insulin drip infusing. Precedex was discontinued. On 04/16 patient was placed back on sedation overnight, hypernatremia continued free water flushes were increased along with Lantus. On 04/17 patient was given Kayexalate for hyperkalemia. On patient was started on D5 fluids due to worsening hypernatremia, renal ultrasound was pending secondary to transaminitis and surgery was consulted for trach/PEG. Per hospital stay patient has been hypernatremic and given IV fluids and free water flushes. Repeat COVID test on 04/22 was positive. Patient received a trach PEG on 04/24. She has been tolerating tube feedings and pressure support trials. Patient will be transferred to LTAC today for continuing support. Assessment and Plan This is a 77-year-old female with DM and ovarian cancer in remission admitted f or septic shock secondary to COVID-19 pneumonia, acute kidney injury, acute hypoxic respiratory failure and currently in multiorgan failure Neuro: Acute metabolic encephalopathy, myoclonic jerks -Myoclonic jerking aborted with Ativan early in admission but none noted since -Avoid delirium -Reorientation as needed -Maintain sleep-wake cycle -Neurology consulted, appreciate recommendations -Initial CT head showed no acute abnormality -EEG absence of definite epileptiform abnormalities would not rule out the possibility of epilepsy, compatible with moderate to moderately severe diffuse encephalopathy -Repeat CTH shows no acute abnormality -Abnormal EEG with findings consistent with possible encephalopathic process and/or drug effect, no epileptiform discharges appreciated -MRI brain limited by motion, mild microvascular angiopathy and cerebral atrophy without clear evidence of acute infarction Cardiac: NAD -Blood pressure monitoring per protocol -s/p vasopressor support with Levophed, dobutamine, vasopressin -MAP goal greater than 65 -Echocardiogram shows LVEF 55 to 60%, normal bivalve function, mildly dilated right ventricle Respiratory: Acute hypoxic respiratory failure, ARDS -CCM consulted, appreciate recommendations -Intubated in the emergency department 04/09 with 7.00 ETT at 22 the lips -A.m. vent settings: CPAP -See RT notes for titration -General surgery consulted for trach/peg->trach 04/24 -VAP bundle -SPO2 monitoring GI: Transaminitis -24 hours +893 ml -PPI -NTR consult for tube feedings -FWF -s/p peg 04/24 -BR: [place] S -Trend LFTs -Abdominal ultrasound shows hepatomegaly and hepatic steatosis, cholelithiasis without sonographic evidence of acute cholecystitis -Abdomen/pelvis CT shows changes suggestive of volume overload with diffuse anasarca and small amount of ascites scattered throughout the abdomen and pelvis, cholelithiasis/gallbladder sludge noted on early abdominal ultrasound, prominent bibasilar pleuralparenchymal disease : Acute kidney injury likely secondary to ischemic acute tubular necrosis, hypernatremia -Nephrology consulted, appreciate recommendations -Strict intake and output -Renally dose medications -Avoid nephrotoxic medications -Daily weights -FeNa calculated at 0.13 -FWF -Renal ultrasound shows mild echogenic kidneys which can be seen in medical renal disease, no hydronephrosis, small amount of free fluid in the abdomen -s/p IV sodium bicarbonate drip and D5W -s/p D5W X 2 bags -04/13 lasix x1 -Trend BMP ID: Septic shock secondary to COVID-19 pneumonia, lactic acidosis -Infectious disease consulted, appreciate recommendations -Admit CXR showed bilateral air space opacities -Covid 19 PCR (+) -Repeat covid PCR positive -s/p Rocephin (04/11-04/15) and vancomycin (04/11-04/14) -abx per ID: cefepime (04/16-04/22), changed to meropenem (04/22) given new fevers -Decadron 8 mg daily for 10 days (04/09-04/18) -Per ID: Due to renal failure, not a candidate for remdesivir -S/p Actemra 04/10 -Contact/droplet precautions -f/u blood culture -Monitor WBC and temperature curve -Trend COVID-19 inflammatory markers Endo: s/p DKA, h/o DM -S/p insulin drip -Avoid hypoglycemia -SSI and long-acting insulin, titrate as needed -Accu-Cheks every 6 Heme: Leukocytosis, elevated Ddimer -BLE dopplar US shows no DVT -Trend CBC -Transfuse hemoglobin less than 7 -Lovenox subcu -Monitor for signs of bleeding -SCDs to BLE while in bed Disposition: [facility] Final Discharge Diagnosis (Prints w/discharge instructions): Acute metabolic encephalopathy, myoclonic jerks, Acute hypoxic respiratory failure, ARDS, Transaminitis, Acute kidney injury likely secondary to ischemic acute tubular necrosis, hypernatremia, Septic shock secondary to COVID-19 pneumonia, lactic acidosis, s/p DKA, h/o DM, Leukocytosis, elevated ddimer Time spent for discharge: 60 Core Measure Documentation - Palliative Care Palliative Care/ Comfort Measures: Not Applicable - Core Measures Any of the following diagnoses?: none Exam - Constitutional Vitals: Temp Pulse Resp BP Pulse Ox 97.8 F 105 H 22 122/74 100 04/26/22 08:00 04/26/22 10:00 04/26/22 10:00 04/26/22 10:04/26/22 10:00 General appearance: Present: no acute distress - EENT Eyes: Present: EOM intact ENT: clear oral mucosa - Neck Neck: Present: normal ROM - Respiratory Respiratory effort: normal Respiratory: bilateral: diminished - Cardiovascular Rhythm: regular Heart Sounds: Present: S1 & S2. Absent: systolic murmur, diastolic murmur - Extremities Extremities: no ischemia, pulses intact, pulses symmetrical, No edema, normal temperature, normal color Peripheral Pulses: within normal limits - Abdominal General gastrointestinal: Present: soft, non-tender, non-distended, normal bowel sounds - Integumentary Integumentary: Present: warm, dry - Musculoskeletal Musculoskeletal: other - Psychiatric Psychiatric: other - Neurologic Neurologic: moves all extremities - Allied Health Allied health notes reviewed: nursing, RT, social work Plan Activity: advance as tolerated Diet: per dietitian instruction Wound: per wound nurse instructions Special Instructions: record daily BP diary Follow up with: PRIMARY CARE, [Primary Care Provider] - 3-5 Days Forms: Work/School Release Form(ED)
[2022-04-26 13:03] VITALS: BP 123/75
--- NOTE | 2022-04-26 13:05 | Progress Note ---
Assessment and Plan 77 y/o female with multisystem organ failure, COVID positive 04/26/22: D/C to LTACH. Continue vent weaning. 04/25/22: Per CM, may be able to transfer as early as tomorrow. Continue PSV trials as tolerated. Continue tube feeds. Mental state is improved. Prognosis is still guarded. 04/24/22: COVID positive, will ask surgery what anesthesia wants to do. Continue free water and tube feeds. Follow up any new renal recs. PSV as tolerated and supportive care. STill no improvement in mental state. 04/23/22: COVID test today. PSV as tolerated. Follow renal recs in regards to increase in Na and Cr. Guarded to poor prognosis. 04/22/22: WIll need repeat COVID test tomorrow. Attempt PSV as tolerated. Na remains elevated, will defer to renal. Guarded to poor prognosis. 04/19/22: Down to 6 of PEEP and 40%. Not breathing over the vent. Will get ABG tomorrow. Na continues to increase. Sending serum and urine osms. Follow up any new renal recs for today. Plan for trach and peg later this afternoon. Prognosis remains guarded to poor. 04/18/22: Peep and FiO2 weaned this am. No blood gas this am but sat is 100. W ill order ABG for tomorrow morning. Will order repeat CMP and ask that phlebotomy do a fresh stick on patient and not draw from picc line. Once trached and pegged will work on placement. Reviewed meds but none that would cause persistent to worsening hypernatremia. Guarded to poor prognosis. 04/17/22: Continue PEEP at 10. Down to 45%. Do not see a blood gas from this morning. Neurology saw this am. MRI negative. Family meeting today at 1330. Guarded to poor prognosis. 04/16/22: Continue PEEP at 10 until FiO2 is at 40-45% and sats >92%. Then can start to wean. Just on Fent now, continue bowel regimen. Tolerating tube feeds. Discussed with MORPHOLOGIST on rounds, neurology was seeing but no further notes, no objection to consulting neuro who is here this week, whoever that is. Patient may need MRI as she has had two negative head CT's and still no real explanation for acute change in mental state. Plan to meet/talk with son tomorrow about next steps and goals of care. Prognosis remains guarded to now poor given no improvement in mental state. 04/15/22: Hold on any further fluids or lasix. If hypotensive, will add pressors. Continue PEEP at 10. Same acceptable parameters as below for sats and PaO2 as pH. Continue pain control and sedation. Added bowel regimen. Prognosis is still guarded to poor. 04/14/22: Hold on any further lasix. Please do not give any fluids, will see if she re equilbrates on her own. Increase PEEP to 8. Will get head CT today. Patient is now in full blown ARDS from COVID. Increased PEEP to 8 and dropped TV to 400. pH of >7.15 and PaO2 >55 are acceptable. Repeat gas at 1600 today. 04/13/22: Renal function continues to improve and urine output improving as well. Given CXR findings will give lasix 40mg IV x1 today. Repeat CXR tomorro w. Off insulin drip and tolerating feeds. Hold on CT head today but if no improvement or worsening clinical state tomorrow, will repeat. Spoke with family on phone yesterday. Guarded prognosis. 04/12/22: Improved mental state. Feed patient today and stop IVF's and attempt to get off of insulin drip. Dropped Peep to 6. Wean FiO2 for sats >88%. PaO2 of 55 and greater are acceptable. Normal EF on echo. EEG showed diffuse slowing but mental state has improved. Will up date family. 04/11/22: Continue supportive measures. Getting EEG right now. Continue to wean Pressors for MAPs >65. if able to get to just one pressor, will place NG vs OG and attempt trickle feeds. Follow up echo. Down to 45%, good PaO2. Continue to wean, however mental state would preclude extubation at this time. Await renal eval but would like to stop bicarb now that acidosis is better, however needs free water but this could be given do OG/NG if end up placing, otherwise would just do D5W. If able to place tube and feed, then can attempt to get off insulin drip. Plan to update family after echo and EEG read. 1. Neuro-concern for seizures. EEG pending. Hold on long acting anti-epileptic therapy. Neurology consulted and has seen. patient is not on any continuous sedation at present 2. CV-Cardiovascular collapse on pressors (3). Could benefit from echo. Attempt volume resuscitation but no improvement. Continue pressors and wean as tolerated for MAPs >65 3. Pulm-intubated, not on sedation. COVID positive but oxygenation is stable. Per documentation, mainly intubated for airway protection given altered level of mental status. Not a candidate for Remdesivir and may not be a candidate for actemra. Continue steroids and low Tidal volume strategy for lung protection with permissive hypercapnea and lower PaO2 (55-60) if needed. 4. Renal- worsening renal function and decrease in urine output. Renal following. May need HD but would likely not tolerate and CRRT or CVVH is not available here. Worsening lactic acidosis as well. 5. GI-hold on feeds given pressor requirement, prophylactic therapy 6. Endo-continue insulin drip for now Overall prognosis is guarded to poor. Will discuss with immediate family today. CCT 31 minutes Subjective Date of service: 04/26/22 Principal diagnosis: encephalopathy Interval history: No acute events. Being discharge to LTACH today Objective Vital Signs - 12hr 04/26/22 04/26/22 04/26/22 02:00 03:00 04:00 Temperature 98.8 F Pulse Rate 107 H 103 H 104 H Pulse Rate [ 104 H From Monitor] Respiratory 24 23 20 Rate Blood Pressure 128/57 111/63 116/59 O2 Sat by Pulse 100 100 100 Oximetry O2 Sat by Pulse Oximetry [ Assessment] 04/26/22 04/26/22 04/26/22 05:00 06:00 07:00 Temperature Pulse Rate 104 H 103 H 105 H Pulse Rate [ From Monitor] Respiratory 23 22 18 Rate Blood Pressure 121/64 128/65 125/68 O2 Sat by Pulse 100 100 100 Oximetry O2 Sat by Pulse Oximetry [ Assessment] 04/26/22 04/26/22 04/26/22 07:30 08:00 09:00 Temperature 97.8 F Pulse Rate 108 H 99 H 101 H Pulse Rate [ 99 H From Monitor] Respiratory 21 25 H Rate Blood Pressure 112/70 128/74 105/66 O2 Sat by Pulse 100 100 100 Oximetry O2 Sat by Pulse 100 Oximetry [ Assessment] 04/26/22 04/26/22 04/26/22 10:00 11:00 12:00 Temperature 99.2 F Pulse Rate 105 H 103 H 101 H Pulse Rate [ From Monitor] Respiratory 22 25 H 22 Rate Blood Pressure 122/74 125/71 123/75 O2 Sat by Pulse 100 100 100 Oximetry O2 Sat by Pulse Oximetry [ Assessment] 04/26/22 12:10 Temperature Pulse Rate 104 H Pulse Rate [ From Monitor] Respiratory Rate Blood Pressure O2 Sat by Pulse 100 Oximetry O2 Sat by Pulse Oximetry [ Assessment] Constitutional: other (on vent orally intubated eyes open) Eyes: non-icteric, other (scleroedema on rt) ENT: oropharynx moist Ascultation: Bilateral: diminished breath sounds Cardiovascular: regular rate and rhythm Gastrointestinal: normoactive bowel sounds Integumentary: normal Extremities: no cyanosis CBC and BMP: 04/26/22 08:15 04/26/22 08:15 ABG, PT/INR, D-dimer: ABG ABG pH 7.460 pH Units (7.350-7.450) H 04/26/22 04:10 ABG pCO2 37.3 mm Hg 04/26/22 04:10 ABG pO2 145.9 mm Hg (80.0-90.0) H 04/26/22 04:10 ABG O2 Saturation 98.9 % (95.0-99.0) 04/26/22 04:10 PT/INR, D-dimer PT 13.5 Sec. (12.2-14.9) 04/24/22 03:46 INR 0.93 (0.87-1.13) 04/24/22 03:46 D-Dimer 3804.33 ng/mlDDU (0-234) H 04/17/22 05:12 Abnormal lab findings: Abnormal Labs 04/09/22 04/09/22 04/09/22 11:59 12:52 12:52 WBC RBC Hgb Hct RDW 15.3 H Plt Count Lymph % (Auto) 8.4 L Lymph # (Auto) 0.7 L Seg Neutrophils % 84.6 H Seg Neuts % (Manual) Lymphocytes % (Manual) Seg Neutrophils # Seg Neutrophils # Man Lymphocytes # (Manual) D-Dimer ABG pH ABG pO2 ABG HCO3 ABG O2 Saturation ABG Base Excess ABG Hemoglobin VBG pH Oxyhemoglobin Sodium Potassium Chloride 112.7 H Carbon Dioxide 18 L BUN Creatinine 2.0 H Glucose 204 H POC Glucose 203 H Lactic Acid Calcium Phosphorus Magnesium Ferritin Total Bilirubin 1.30 H Direct Bilirubin AST 47 H ALT Ammonia Lactate Dehydrogenase C-Reactive Protein Total Protein Albumin Urine Creatinine Urine Total Protein Coronavirus (PCR) 04/09/22 04/09/22 04/09/22 12:52 12:52 13:02 WBC RBC Hgb Hct RDW Plt Count Lymph % (Auto) Lymph # (Auto) Seg Neutrophils % Seg Neuts % (Manual) Lymphocytes % (Manual) Seg Neutrophils # Seg Neutrophils # Man Lymphocytes # (Manual) D-Dimer ABG pH ABG pO2 ABG HCO3 ABG O2 Saturation ABG Base Excess ABG Hemoglobin VBG pH 7.303 L Oxyhemoglobin Sodium Potassium Chloride Carbon Dioxide BUN Creatinine Glucose POC Glucose Lactic Acid Calcium Phosphorus Magnesium Ferritin Total Bilirubin Direct Bilirubin AST ALT Ammonia 20.0 L Lactate Dehydrogenase C-Reactive Protein Total Protein Albumin Urine Creatinine Urine Total Protein Coronavirus (PCR) Positive A 04/09/22 04/09/22 04/09/22 15:49 22:15 22:58 WBC RBC Hgb Hct RDW Plt Count Lymph % (Auto) Lymph # (Auto) Seg Neutrophils % Seg Neuts % (Manual) Lymphocytes % (Manual) Seg Neutrophils # Seg Neutrophils # Man Lymphocytes # (Manual) D-Dimer ABG pH 7.097 L* ABG pO2 188.8 H ABG HCO3 7.4 L ABG O2 Saturation 99.1 H ABG Base Excess -20.7 L ABG Hemoglobin VBG pH Oxyhemoglobin Sodium Potassium Chloride 108.8 H Carbon Dioxide 10 L D BUN 20 H Creatinine 2.6 H Glucose 465 H POC Glucose Lactic Acid 2.70 H* Calcium 7.4 L Phosphorus Magnesium Ferritin Total Bilirubin Direct Bilirubin AST ALT Ammonia Lactate Dehydrogenase C-Reactive Protein Total Protein Albumin Urine Creatinine Urine Total Protein Coronavirus (PCR) 04/09/22 04/09/22 04/10/22 23:19 Unknown 00:03 WBC RBC Hgb Hct RDW Plt Count Lymph % (Auto) Lymph # (Auto) Seg Neutrophils % Seg Neuts % (Manual) Lymphocytes % (Manual) Seg Neutrophils # Seg Neutrophils # Man Lymphocytes # (Manual) D-Dimer ABG pH ABG pO2 ABG HCO3 ABG O2 Saturation ABG Base Excess ABG Hemoglobin VBG pH Oxyhemoglobin Sodium Potassium Chloride Carbon Dioxide BUN Creatinine Glucose POC Glucose 356 H Lactic Acid 7.50 H* 6.10 H* Calcium Phosphorus Magnesium Ferritin Total Bilirubin Direct Bilirubin AST ALT Ammonia Lactate Dehydrogenase C-Reactive Protein Total Protein Albumin Urine Creatinine Urine Total Protein Coronavirus (PCR) 04/10/22 04/10/22 04/10/22 02:16 03:03 04:00 WBC RBC Hgb Hct RDW Plt Count Lymph % (Auto) Lymph # (Auto) Seg Neutrophils % Seg Neuts % (Manual) Lymphocytes % (Manual) Seg Neutrophils # Seg Neutrophils # Man Lymphocytes # (Manual) D-Dimer ABG pH ABG pO2 ABG HCO3 ABG O2 Saturation ABG Base Excess ABG Hemoglobin VBG pH Oxyhemoglobin Sodium Potassium Chloride Carbon Dioxide BUN Creatinine Glucose POC Glucose 317 H 325 H 308 H Lactic Acid Calcium Phosphorus Magnesium Ferritin Total Bilirubin Direct Bilirubin AST ALT Ammonia Lactate Dehydrogenase C-Reactive Protein Total Protein Albumin Urine Creatinine Urine Total Protein Coronavirus (PCR) 04/10/22 04/10/22 04/10/22 04:24 04:24 04:24 WBC 16.4 H RBC Hgb Hct RDW 16.2 H Plt Count Lymph % (Auto) Lymph # (Auto) Seg Neutrophils % Seg Neuts % (Manual) 94.0 H Lymphocytes % (Manual) 3.0 L Seg Neutrophils # Seg Neutrophils # Man 15.4 H Lymphocytes # (Manual) 0.5 L D-Dimer ABG pH ABG pO2 ABG HCO3 ABG O2 Saturation ABG Base Excess ABG Hemoglobin VBG pH Oxyhemoglobin Sodium Potassium 2.9 L* D Chloride 116.1 H Carbon Dioxide 11 L BUN 19 H Creatinine 2.5 H Glucose 376 H POC Glucose Lactic Acid Calcium 6.5 L Phosphorus 1.40 L Magnesium 1.60 L Ferritin Total Bilirubin Direct Bilirubin AST 107 H ALT 64 H Ammonia Lactate Dehydrogenase C-Reactive Protein Total Protein 5.5 L Albumin 2.8 L Urine Creatinine Urine Total Protein Coronavirus (PCR) 04/10/22 04/10/22 04/10/22 04:25 05:17 06:00 WBC RBC Hgb Hct RDW Plt Count Lymph % (Auto) Lymph # (Auto) Seg Neutrophils % Seg Neuts % (Manual) Lymphocytes % (Manual) Seg Neutrophils # Seg Neutrophils # Man Lymphocytes # (Manual) D-Dimer ABG pH 7.095 L* ABG pO2 112.3 H ABG HCO3 8.7 L ABG O2 Saturation ABG Base Excess -19.7 L ABG Hemoglobin VBG pH Oxyhemoglobin Sodium Potassium Chloride Carbon Dioxide BUN Creatinine Glucose POC Glucose 343 H 278 H Lactic Acid Calcium Phosphorus Magnesium Ferritin Total Bilirubin Direct Bilirubin AST ALT Ammonia Lactate Dehydrogenase C-Reactive Protein Total Protein Albumin Urine Creatinine Urine Total Protein Coronavirus (PCR) 04/10/22 04/10/22 04/10/22 06:53 07:54 08:58 WBC RBC Hgb Hct RDW Plt Count Lymph % (Auto) Lymph # (Auto) Seg Neutrophils % Seg Neuts % (Manual) Lymphocytes % (Manual) Seg Neutrophils # Seg Neutrophils # Man Lymphocytes # (Manual) D-Dimer ABG pH ABG pO2 ABG HCO3 ABG O2 Saturation ABG Base Excess ABG Hemoglobin VBG pH Oxyhemoglobin Sodium Potassium Chloride Carbon Dioxide BUN Creatinine Glucose POC Glucose 262 H 245 H 215 H Lactic Acid Calcium Phosphorus Magnesium Ferritin Total Bilirubin Direct Bilirubin AST ALT Ammonia Lactate Dehydrogenase C-Reactive Protein Total Protein Albumin Urine Creatinine Urine Total Protein Coronavirus (PCR) 04/10/22 04/10/22 04/10/22 10:12 10:51 11:47 WBC RBC Hgb Hct RDW Plt Count Lymph % (Auto) Lymph # (Auto) Seg Neutrophils % Seg Neuts % (Manual) Lymphocytes % (Manual) Seg Neutrophils # Seg Neutrophils # Man Lymphocytes # (Manual) D-Dimer ABG pH ABG pO2 ABG HCO3 ABG O2 Saturation ABG Base Excess ABG Hemoglobin VBG pH Oxyhemoglobin Sodium 148 H Potassium 3.4 L Chloride 116.7 H Carbon Dioxide 15 L BUN 22 H Creatinine 2.7 H Glucose 190 H POC Glucose 206 H 176 H Lactic Acid Calcium 6.9 L Phosphorus Magnesium Ferritin Total Bilirubin Direct Bilirubin AST ALT Ammonia Lactate Dehydrogenase C-Reactive Protein Total Protein Albumin Urine Creatinine Urine Total Protein Coronavirus (PCR) 04/10/22 04/10/22 04/10/22 11:47 11:47 12:02 WBC RBC Hgb Hct RDW Plt Count Lymph % (Auto) Lymph # (Auto) Seg Neutrophils % Seg Neuts % (Manual) Lymphocytes % (Manual) Seg Neutrophils # Seg Neutrophils # Man Lymphocytes # (Manual) D-Dimer ABG pH ABG pO2 ABG HCO3 ABG O2 Saturation ABG Base Excess ABG Hemoglobin VBG pH Oxyhemoglobin Sodium Potassium Chloride Carbon Dioxide BUN Creatinine Glucose POC Glucose 178 H Lactic Acid Calcium Phosphorus Magnesium Ferritin 1218.0 H Total Bilirubin Direct Bilirubin AST ALT Ammonia Lactate Dehydrogenase 482 H C-Reactive Protein 11.30 H Total Protein Albumin Urine Creatinine Urine Total Protein Coronavirus (PCR) 04/10/22 04/10/22 04/10/22 13:13 13:58 14:50 WBC RBC Hgb Hct RDW Plt Count Lymph % (Auto) Lymph # (Auto) Seg Neutrophils % Seg Neuts % (Manual) Lymphocytes % (Manual) Seg Neutrophils # Seg Neutrophils # Man Lymphocytes # (Manual) D-Dimer ABG pH ABG pO2 ABG HCO3 ABG O2 Saturation ABG Base Excess ABG Hemoglobin VBG pH Oxyhemoglobin Sodium Potassium Chloride Carbon Dioxide BUN Creatinine Glucose POC Glucose 160 H 150 H Lactic Acid Calcium Phosphorus Magnesium Ferritin Total Bilirubin Direct Bilirubin AST ALT Ammonia Lactate Dehydrogenase C-Reactive Protein Total Protein Albumin Urine Creatinine 224.2 H Urine Total Protein 172 H Coronavirus (PCR) 04/10/22 04/10/22 04/10/22 15:24 16:38 16:56 WBC RBC Hgb Hct RDW Plt Count Lymph % (Auto) Lymph # (Auto) Seg Neutrophils % Seg Neuts % (Manual) Lymphocytes % (Manual) Seg Neutrophils # Seg Neutrophils # Man Lymphocytes # (Manual) D-Dimer ABG pH ABG pO2 ABG HCO3 ABG O2 Saturation ABG Base Excess ABG Hemoglobin VBG pH Oxyhemoglobin Sodium Potassium Chloride Carbon Dioxide BUN Creatinine Glucose POC Glucose 140 H 154 H 149 H Lactic Acid Calcium Phosphorus Magnesium Ferritin Total Bilirubin Direct Bilirubin AST ALT Ammonia Lactate Dehydrogenase C-Reactive Protein Total Protein Albumin Urine Creatinine Urine Total Protein Coronavirus (PCR) 04/10/22 04/10/22 04/10/22 18:21 19:21 20:02 WBC RBC Hgb Hct RDW Plt Count Lymph % (Auto) Lymph # (Auto) Seg Neutrophils % Seg Neuts % (Manual) Lymphocytes % (Manual) Seg Neutrophils # Seg Neutrophils # Man Lymphocytes # (Manual) D-Dimer ABG pH ABG pO2 ABG HCO3 ABG O2 Saturation ABG Base Excess ABG Hemoglobin VBG pH Oxyhemoglobin Sodium Potassium Chloride Carbon Dioxide BUN Creatinine Glucose POC Glucose 141 H 126 H 139 H Lactic Acid Calcium Phosphorus Magnesium Ferritin Total Bilirubin Direct Bilirubin AST ALT Ammonia Lactate Dehydrogenase C-Reactive Protein Total Protein Albumin Urine Creatinine Urine Total Protein Coronavirus (PCR) 04/10/22 04/10/22 04/10/22 21:04 21:58 22:20 WBC RBC Hgb Hct RDW Plt Count Lymph % (Auto) Lymph # (Auto) Seg Neutrophils % Seg Neuts % (Manual) Lymphocytes % (Manual) Seg Neutrophils # Seg Neutrophils # Man Lymphocytes # (Manual) D-Dimer ABG pH ABG pO2 ABG HCO3 ABG O2 Saturation ABG Base Excess ABG Hemoglobin VBG pH Oxyhemoglobin Sodium Potassium Chloride 114.5 H Carbon Dioxide 17 L BUN 24 H Creatinine 2.5 H Glucose 165 H POC Glucose 144 H 161 H Lactic Acid Calcium 6.5 L Phosphorus Magnesium Ferritin Total Bilirubin Direct Bilirubin AST ALT Ammonia Lactate Dehydrogenase C-Reactive Protein Total Protein Albumin Urine Creatinine Urine Total Protein Coronavirus (PCR) 04/10/22 04/11/22 04/11/22 23:02 00:08 01:05 WBC RBC Hgb Hct RDW Plt Count Lymph % (Auto) Lymph # (Auto) Seg Neutrophils % Seg Neuts % (Manual) Lymphocytes % (Manual) Seg Neutrophils # Seg Neutrophils # Man Lymphocytes # (Manual) D-Dimer ABG pH ABG pO2 ABG HCO3 ABG O2 Saturation ABG Base Excess ABG Hemoglobin VBG pH Oxyhemoglobin Sodium Potassium Chloride Carbon Dioxide BUN Creatinine Glucose POC Glucose 160 H 148 H 156 H Lactic Acid Calcium Phosphorus Magnesium Ferritin Total Bilirubin Direct Bilirubin AST ALT Ammonia Lactate Dehydrogenase C-Reactive Protein Total Protein Albumin Urine Creatinine Urine Total Protein Coronavirus (PCR) 04/11/22 04/11/22 04/11/22 01:30 02:05 03:04 WBC RBC Hgb Hct RDW Plt Count Lymph % (Auto) Lymph # (Auto) Seg Neutrophils % Seg Neuts % (Manual) Lymphocytes % (Manual) Seg Neutrophils # Seg Neutrophils # Man Lymphocytes # (Manual) D-Dimer ABG pH ABG pO2 75.1 L ABG HCO3 17.2 L ABG O2 Saturation ABG Base Excess -5.8 L ABG Hemoglobin 11.5 L VBG pH Oxyhemoglobin Sodium Potassium Chloride Carbon Dioxide BUN Creatinine Glucose POC Glucose 150 H 168 H Lactic Acid Calcium Phosphorus Magnesium Ferritin Total Bilirubin Direct Bilirubin AST ALT Ammonia Lactate Dehydrogenase C-Reactive Protein Total Protein Albumin Urine Creatinine Urine Total Protein Coronavirus (PCR) 04/11/22 04/11/22 04/11/22 03:58 03:58 04:05 WBC 12.2 H RBC Hgb Hct RDW 15.7 H Plt Count Lymph % (Auto) Lymph # (Auto) Seg Neutrophils % Seg Neuts % (Manual) Lymphocytes % (Manual) Seg Neutrophils # Seg Neutrophils # Man Lymphocytes # (Manual) D-Dimer ABG pH ABG pO2 ABG HCO3 ABG O2 Saturation ABG Base Excess ABG Hemoglobin VBG pH Oxyhemoglobin Sodium 147 H Potassium Chloride 114.2 H Carbon Dioxide 19 L BUN 26 H Creatinine 2.5 H Glucose 154 H POC Glucose 151 H Lactic Acid Calcium 6.8 L Phosphorus Magnesium Ferritin Total Bilirubin Direct Bilirubin AST 106 H ALT 60 H Ammonia Lactate Dehydrogenase C-Reactive Protein Total Protein 5.6 L Albumin 2.7 L Urine Creatinine Urine Total Protein Coronavirus (PCR) 04/11/22 04/11/22 04/11/22 05:14 06:19 08:23 WBC RBC Hgb Hct RDW Plt Count Lymph % (Auto) Lymph # (Auto) Seg Neutrophils % Seg Neuts % (Manual) Lymphocytes % (Manual) Seg Neutrophils # Seg Neutrophils # Man Lymphocytes # (Manual) D-Dimer ABG pH ABG pO2 ABG HCO3 ABG O2 Saturation ABG Base Excess ABG Hemoglobin VBG pH Oxyhemoglobin Sodium Potassium Chloride Carbon Dioxide BUN Creatinine Glucose POC Glucose 134 H 144 H 143 H Lactic Acid Calcium Phosphorus Magnesium Ferritin Total Bilirubin Direct Bilirubin AST ALT Ammonia Lactate Dehydrogenase C-Reactive Protein Total Protein Albumin Urine Creatinine Urine Total Protein Coronavirus (PCR) 04/11/22 04/11/22 04/11/22 09:28 10:06 11:23 WBC RBC Hgb Hct RDW Plt Count Lymph % (Auto) Lymph # (Auto) Seg Neutrophils % Seg Neuts % (Manual) Lymphocytes % (Manual) Seg Neutrophils # Seg Neutrophils # Man Lymphocytes # (Manual) D-Dimer ABG pH ABG pO2 ABG HCO3 ABG O2 Saturation ABG Base Excess ABG Hemoglobin VBG pH Oxyhemoglobin Sodium Potassium Chloride Carbon Dioxide BUN Creatinine Glucose POC Glucose 138 H Lactic Acid Calcium Phosphorus Magnesium Ferritin Total Bilirubin Direct Bilirubin AST ALT Ammonia Lactate Dehydrogenase C-Reactive Protein Total Protein Albumin Urine Creatinine 161.8 H 160.5 H Urine Total Protein Coronavirus (PCR) 04/11/22 04/11/22 04/12/22 15:59 23:58 00:01 WBC 16.2 H RBC Hgb Hct RDW 15.8 H Plt Count Lymph % (Auto) 5.7 L Lymph # (Auto) 0.9 L Seg Neutrophils % 89.6 H Seg Neuts % (Manual) Lymphocytes % (Manual) Seg Neutrophils # 14.6 H Seg Neutrophils # Man Lymphocytes # (Manual) D-Dimer ABG pH ABG pO2 ABG HCO3 ABG O2 Saturation ABG Base Excess ABG Hemoglobin VBG pH Oxyhemoglobin Sodium Potassium Chloride Carbon Dioxide BUN Creatinine Glucose POC Glucose 166 H 150 H Lactic Acid Calcium Phosphorus Magnesium Ferritin Total Bilirubin Direct Bilirubin AST ALT Ammonia Lactate Dehydrogenase C-Reactive Protein Total Protein Albumin Urine Creatinine Urine Total Protein Coronavirus (PCR) 04/12/22 04/12/22 04/12/22 03:20 04:00 04:00 WBC RBC Hgb Hct RDW Plt Count Lymph % (Auto) Lymph # (Auto) Seg Neutrophils % Seg Neuts % (Manual) Lymphocytes % (Manual) Seg Neutrophils # Seg Neutrophils # Man Lymphocytes # (Manual) D-Dimer 1874.86 H ABG pH 7.513 H ABG pO2 61.7 L ABG HCO3 ABG O2 Saturation 94.2 L ABG Base Excess ABG Hemoglobin 11.5 L VBG pH Oxyhemoglobin 92.6 L Sodium Potassium Chloride Carbon Dioxide BUN Creatinine Glucose POC Glucose Lactic Acid Calcium Phosphorus Magnesium Ferritin 890.0 H Total Bilirubin Direct Bilirubin AST ALT Ammonia Lactate Dehydrogenase C-Reactive Protein Total Protein Albumin Urine Creatinine Urine Total Protein Coronavirus (PCR) 04/12/22 04/12/22 04/12/22 04:00 04:20 04:59 WBC RBC Hgb Hct RDW Plt Count Lymph % (Auto) Lymph # (Auto) Seg Neutrophils % Seg Neuts % (Manual) Lymphocytes % (Manual) Seg Neutrophils # Seg Neutrophils # Man Lymphocytes # (Manual) D-Dimer ABG pH ABG pO2 ABG HCO3 ABG O2 Saturation ABG Base Excess ABG Hemoglobin VBG pH Oxyhemoglobin Sodium 146 H Potassium Chloride 108.0 H Carbon Dioxide BUN 38 H Creatinine 2.3 H Glucose 173 H POC Glucose 146 H Lactic Acid Calcium 6.7 L Phosphorus Magnesium Ferritin Total Bilirubin Direct Bilirubin AST ALT Ammonia Lactate Dehydrogenase 763 H C-Reactive Protein 14.10 H Total Protein Albumin Urine Creatinine Urine Total Protein Coronavirus (PCR) 04/12/22 04/12/22 04/12/22 06:05 10:15 11:52 WBC RBC Hgb Hct RDW Plt Count Lymph % (Auto) Lymph # (Auto) Seg Neutrophils % Seg Neuts % (Manual) Lymphocytes % (Manual) Seg Neutrophils # Seg Neutrophils # Man Lymphocytes # (Manual) D-Dimer ABG pH ABG pO2 ABG HCO3 ABG O2 Saturation ABG Base Excess ABG Hemoglobin VBG pH Oxyhemoglobin Sodium Potassium Chloride Carbon Dioxide BUN Creatinine Glucose POC Glucose 190 H 122 H 125 H Lactic Acid Calcium Phosphorus Magnesium Ferritin Total Bilirubin Direct Bilirubin AST ALT Ammonia Lactate Dehydrogenase C-Reactive Protein Total Protein Albumin Urine Creatinine Urine Total Protein Coronavirus (PCR) 04/12/22 04/13/22 04/13/22 13:18 00:14 03:41 WBC RBC Hgb Hct RDW Plt Count Lymph % (Auto) Lymph # (Auto) Seg Neutrophils % Seg Neuts % (Manual) Lymphocytes % (Manual) Seg Neutrophils # Seg Neutrophils # Man Lymphocytes # (Manual) D-Dimer ABG pH 7.487 H ABG pO2 62.1 L ABG HCO3 ABG O2 Saturation 93.2 L ABG Base Excess ABG Hemoglobin 11.9 L VBG pH Oxyhemoglobin 91.5 L Sodium Potassium Chloride Carbon Dioxide BUN 38 H Creatinine 2.1 H Glucose 144 H POC Glucose 208 H Lactic Acid Calcium 7.1 L Phosphorus Magnesium Ferritin Total Bilirubin Direct Bilirubin AST ALT Ammonia Lactate Dehydrogenase C-Reactive Protein Total Protein Albumin Urine Creatinine Urine Total Protein Coronavirus (PCR) 04/13/22 04/13/22 04/14/22 04:31 04:31 03:54 WBC 13.9 H RBC Hgb Hct RDW 15.7 H Plt Count Lymph % (Auto) Lymph # (Auto) Seg Neutrophils % Seg Neuts % (Manual) Lymphocytes % (Manual) Seg Neutrophils # Seg Neutrophils # Man Lymphocytes # (Manual) D-Dimer ABG pH 7.487 H ABG pO2 57.8 L ABG HCO3 ABG O2 Saturation 93.9 L ABG Base Excess ABG Hemoglobin 10.0 L VBG pH Oxyhemoglobin 92.3 L Sodium Potassium Chloride Carbon Dioxide BUN 42 H Creatinine 1.9 H Glucose 204 H POC Glucose Lactic Acid Calcium 7.4 L Phosphorus Magnesium Ferritin Total Bilirubin Direct Bilirubin AST ALT Ammonia Lactate Dehydrogenase C-Reactive Protein Total Protein Albumin Urine Creatinine Urine Total Protein Coronavirus (PCR) 04/14/22 04/14/22 04/14/22 07:28 07:28 07:28 WBC RBC Hgb Hct RDW Plt Count Lymph % (Auto) Lymph # (Auto) Seg Neutrophils % Seg Neuts % (Manual) Lymphocytes % (Manual) Seg Neutrophils # Seg Neutrophils # Man Lymphocytes # (Manual) D-Dimer 5586.76 H ABG pH ABG pO2 ABG HCO3 ABG O2 Saturation ABG Base Excess ABG Hemoglobin VBG pH Oxyhemoglobin Sodium Potassium Chloride Carbon Dioxide BUN Creatinine Glucose POC Glucose Lactic Acid Calcium Phosphorus Magnesium Ferritin 454.7 H Total Bilirubin Direct Bilirubin AST ALT Ammonia Lactate Dehydrogenase 1345 H C-Reactive Protein 4.80 H Total Protein Albumin Urine Creatinine Urine Total Protein Coronavirus (PCR) 04/14/22 04/14/22 04/14/22 07:28 07:28 09:26 WBC 18.6 H RBC 3.59 L Hgb Hct RDW 15.6 H Plt Count Lymph % (Auto) Lymph # (Auto) Seg Neutrophils % Seg Neuts % (Manual) Lymphocytes % (Manual) Seg Neutrophils # Seg Neutrophils # Man Lymphocytes # (Manual) D-Dimer ABG pH ABG pO2 ABG HCO3 ABG O2 Saturation ABG Base Excess ABG Hemoglobin VBG pH Oxyhemoglobin Sodium 149 H Potassium Chloride 110.3 H Carbon Dioxide BUN 57 H Creatinine 2.3 H Glucose 205 H POC Glucose Lactic Acid Calcium Phosphorus Magnesium 2.90 H Ferritin Total Bilirubin Direct Bilirubin AST ALT Ammonia Lactate Dehydrogenase C-Reactive Protein Total Protein Albumin Urine Creatinine Urine Total Protein Coronavirus (PCR) 04/14/22 04/14/22 04/14/22 11:52 15:41 17:18 WBC RBC Hgb Hct RDW Plt Count Lymph % (Auto) Lymph # (Auto) Seg Neutrophils % Seg Neuts % (Manual) Lymphocytes % (Manual) Seg Neutrophils # Seg Neutrophils # Man Lymphocytes # (Manual) D-Dimer ABG pH 7.506 H ABG pO2 51.0 L ABG HCO3 ABG O2 Saturation 87.3 L ABG Base Excess ABG Hemoglobin 10.6 L VBG pH Oxyhemoglobin 85.4 L Sodium Potassium Chloride Carbon Dioxide BUN Creatinine Glucose POC Glucose 173 H 187 H Lactic Acid Calcium Phosphorus Magnesium Ferritin Total Bilirubin Direct Bilirubin AST ALT Ammonia Lactate Dehydrogenase C-Reactive Protein Total Protein Albumin Urine Creatinine Urine Total Protein Coronavirus (PCR) 04/15/22 04/15/22 04/15/22 00:03 03:43 05:47 WBC RBC Hgb Hct RDW Plt Count Lymph % (Auto) Lymph # (Auto) Seg Neutrophils % Seg Neuts % (Manual) Lymphocytes % (Manual) Seg Neutrophils # Seg Neutrophils # Man Lymphocytes # (Manual) D-Dimer ABG pH 7.477 H ABG pO2 59.1 L ABG HCO3 ABG O2 Saturation 90.5 L ABG Base Excess ABG Hemoglobin 9.5 L VBG pH Oxyhemoglobin 88.7 L Sodium Potassium Chloride Carbon Dioxide BUN Creatinine Glucose POC Glucose 246 H 217 H Lactic Acid Calcium Phosphorus Magnesium Ferritin Total Bilirubin Direct Bilirubin AST ALT Ammonia Lactate Dehydrogenase C-Reactive Protein Total Protein Albumin Urine Creatinine Urine Total Protein Coronavirus (PCR) 04/15/22 04/15/22 04/15/22 09:40 10:00 12:00 WBC 19.3 H RBC 3.18 L Hgb 9.3 L Hct 27.7 L RDW 15.8 H Plt Count Lymph % (Auto) Lymph # (Auto) Seg Neutrophils % Seg Neuts % (Manual) Lymphocytes % (Manual) Seg Neutrophils # Seg Neutrophils # Man Lymphocytes # (Manual) D-Dimer ABG pH ABG pO2 ABG HCO3 ABG O2 Saturation ABG Base Excess ABG Hemoglobin VBG pH Oxyhemoglobin Sodium 146 H Potassium Chloride 107.9 H Carbon Dioxide BUN 76 H Creatinine 1.9 H Glucose 214 H POC Glucose Lactic Acid 2.10 H* Calcium 7.7 L Phosphorus Magnesium Ferritin Total Bilirubin Direct Bilirubin AST ALT Ammonia Lactate Dehydrogenase C-Reactive Protein Total Protein Albumin Urine Creatinine Urine Total Protein Coronavirus (PCR) 04/15/22 04/15/22 04/15/22 12:21 17:51 21:39 WBC RBC Hgb Hct RDW Plt Count Lymph % (Auto) Lymph # (Auto) Seg Neutrophils % Seg Neuts % (Manual) Lymphocytes % (Manual) Seg Neutrophils # Seg Neutrophils # Man Lymphocytes # (Manual) D-Dimer ABG pH ABG pO2 ABG HCO3 ABG O2 Saturation ABG Base Excess ABG Hemoglobin VBG pH Oxyhemoglobin Sodium Potassium Chloride Carbon Dioxide BUN Creatinine Glucose POC Glucose 236 H 255 H 223 H Lactic Acid Calcium Phosphorus Magnesium Ferritin Total Bilirubin Direct Bilirubin AST ALT Ammonia Lactate Dehydrogenase C-Reactive Protein Total Protein Albumin Urine Creatinine Urine Total Protein Coronavirus (PCR) 04/16/22 04/16/22 04/16/22 00:17 02:35 04:00 WBC RBC Hgb Hct RDW Plt Count Lymph % (Auto) Lymph # (Auto) Seg Neutrophils % Seg Neuts % (Manual) Lymphocytes % (Manual) Seg Neutrophils # Seg Neutrophils # Man Lymphocytes # (Manual) D-Dimer ABG pH 7.318 L ABG pO2 71.1 L ABG HCO3 27.7 H ABG O2 Saturation 94.8 L ABG Base Excess ABG Hemoglobin 10.3 L VBG pH Oxyhemoglobin 92.9 L Sodium Potassium Chloride Carbon Dioxide BUN Creatinine Glucose POC Glucose 201 H Lactic Acid Calcium Phosphorus Magnesium Ferritin 446.2 H Total Bilirubin Direct Bilirubin AST ALT Ammonia Lactate Dehydrogenase C-Reactive Protein Total Protein Albumin Urine Creatinine Urine Total Protein Coronavirus (PCR) 04/16/22 04/16/22 04/16/22 04:00 06:00 Unknown WBC RBC Hgb Hct RDW Plt Count Lymph % (Auto) Lymph # (Auto) Seg Neutrophils % Seg Neuts % (Manual) Lymphocytes % (Manual) Seg Neutrophils # Seg Neutrophils # Man Lymphocytes # (Manual) D-Dimer 3886.80 H ABG pH ABG pO2 ABG HCO3 ABG O2 Saturation ABG Base Excess ABG Hemoglobin VBG pH Oxyhemoglobin Sodium 148 H Potassium Chloride 109.9 H Carbon Dioxide BUN 84 H Creatinine 1.7 H Glucose 276 H POC Glucose Lactic Acid Calcium Phosphorus Magnesium Ferritin Total Bilirubin Direct Bilirubin 0.5 H AST 69 H ALT 120 H Ammonia Lactate Dehydrogenase 1467 H C-Reactive Protein 1.90 H Total Protein 5.9 L Albumin 3.5 L Urine Creatinine Urine Total Protein Coronavirus (PCR) 04/16/22 04/17/22 04/17/22 Unknown 05:12 05:12 WBC 25.2 H 22.2 H RBC 3.50 L Hgb Hct RDW 15.8 H 15.8 H Plt Count Lymph % (Auto) Lymph # (Auto) Seg Neutrophils % Seg Neuts % (Manual) Lymphocytes % (Manual) Seg Neutrophils # Seg Neutrophils # Man Lymphocytes # (Manual) D-Dimer 3804.33 H ABG pH ABG pO2 ABG HCO3 ABG O2 Saturation ABG Base Excess ABG Hemoglobin VBG pH Oxyhemoglobin Sodium Potassium Chloride Carbon Dioxide BUN Creatinine Glucose POC Glucose Lactic Acid Calcium Phosphorus Magnesium Ferritin Total Bilirubin Direct Bilirubin AST ALT Ammonia Lactate Dehydrogenase C-Reactive Protein Total Protein Albumin Urine Creatinine Urine Total Protein Coronavirus (PCR) 04/17/22 04/17/22 04/17/22 05:12 17:27 20:04 WBC RBC Hgb Hct RDW Plt Count Lymph % (Auto) Lymph # (Auto) Seg Neutrophils % Seg Neuts % (Manual) Lymphocytes % (Manual) Seg Neutrophils # Seg Neutrophils # Man Lymphocytes # (Manual) D-Dimer ABG pH ABG pO2 ABG HCO3 ABG O2 Saturation ABG Base Excess ABG Hemoglobin VBG pH Oxyhemoglobin Sodium 149 H Potassium 5.3 H Chloride 109.4 H Carbon Dioxide BUN 80 H Creatinine 1.5 H Glucose 320 H POC Glucose 308 H 301 H Lactic Acid Calcium Phosphorus Magnesium Ferritin Total Bilirubin Direct Bilirubin AST 171 H ALT 231 H Ammonia Lactate Dehydrogenase C-Reactive Protein Total Protein 5.4 L Albumin 3.7 L Urine Creatinine Urine Total Protein Coronavirus (PCR) 04/18/22 04/18/22 04/18/22 01:55 05:41 05:41 WBC RBC Hgb Hct RDW Plt Count Lymph % (Auto) Lymph # (Auto) Seg Neutrophils % Seg Neuts % (Manual) Lymphocytes % (Manual) Seg Neutrophils # Seg Neutrophils # Man Lymphocytes # (Manual) D-Dimer ABG pH ABG pO2 ABG HCO3 ABG O2 Saturation ABG Base Excess ABG Hemoglobin VBG pH Oxyhemoglobin Sodium 156 H Potassium Chloride 117.8 H Carbon Dioxide BUN 69 H Creatinine 1.3 H Glucose 231 H POC Glucose 301 H Lactic Acid Calcium 8.3 L Phosphorus Magnesium Ferritin 570.8 H Total Bilirubin Direct Bilirubin AST ALT Ammonia Lactate Dehydrogenase 1473 H C-Reactive Protein Total Protein Albumin Urine Creatinine Urine Total Protein Coronavirus (PCR) 04/18/22 04/18/22 04/18/22 05:41 06:09 10:35 WBC 19.6 H RBC 3.38 L Hgb 9.7 L Hct 29.5 L RDW 15.9 H Plt Count Lymph % (Auto) Lymph # (Auto) Seg Neutrophils % Seg Neuts % (Manual) Lymphocytes % (Manual) Seg Neutrophils # Seg Neutrophils # Man Lymphocytes # (Manual) D-Dimer ABG pH ABG pO2 ABG HCO3 ABG O2 Saturation ABG Base Excess ABG Hemoglobin VBG pH Oxyhemoglobin Sodium 156 H Potassium Chloride 118.2 H Carbon Dioxide 32 H BUN 66 H Creatinine 1.3 H Glucose 179 H POC Glucose 210 H Lactic Acid Calcium 8.3 L Phosphorus Magnesium Ferritin Total Bilirubin Direct Bilirubin AST 91 H ALT 234 H Ammonia Lactate Dehydrogenase C-Reactive Protein Total Protein 5.3 L Albumin 3.4 L Urine Creatinine Urine Total Protein Coronavirus (PCR) 04/18/22 04/18/22 04/19/22 11:57 23:36 03:21 WBC RBC Hgb Hct RDW Plt Count Lymph % (Auto) Lymph # (Auto) Seg Neutrophils % Seg Neuts % (Manual) Lymphocytes % (Manual) Seg Neutrophils # Seg Neutrophils # Man Lymphocytes # (Manual) D-Dimer ABG pH ABG pO2 ABG HCO3 ABG O2 Saturation ABG Base Excess ABG Hemoglobin VBG pH Oxyhemoglobin Sodium Potassium Chloride Carbon Dioxide BUN Creatinine Glucose POC Glucose 161 H 209 H 184 H Lactic Acid Calcium Phosphorus Magnesium Ferritin Total Bilirubin Direct Bilirubin AST ALT Ammonia Lactate Dehydrogenase C-Reactive Protein Total Protein Albumin Urine Creatinine Urine Total Protein Coronavirus (PCR) 04/19/22 04/19/22 04/19/22 04:00 04:00 05:58 WBC 18.2 H RBC Hgb Hct RDW 15.7 H Plt Count Lymph % (Auto) Lymph # (Auto) Seg Neutrophils % Seg Neuts % (Manual) Lymphocytes % (Manual) Seg Neutrophils # Seg Neutrophils # Man Lymphocytes # (Manual) D-Dimer ABG pH ABG pO2 ABG HCO3 ABG O2 Saturation ABG Base Excess ABG Hemoglobin VBG pH Oxyhemoglobin Sodium 160 H Potassium Chloride 119.7 H Carbon Dioxide 31 H BUN 60 H Creatinine 1.3 H Glucose 213 H POC Glucose 207 H Lactic Acid Calcium Phosphorus Magnesium Ferritin Total Bilirubin Direct Bilirubin AST 77 H ALT 208 H Ammonia Lactate Dehydrogenase C-Reactive Protein Total Protein 5.8 L Albumin 3.5 L Urine Creatinine Urine Total Protein Coronavirus (PCR) 04/19/22 04/19/22 04/19/22 11:25 17:35 21:56 WBC RBC Hgb Hct RDW Plt Count Lymph % (Auto) Lymph # (Auto) Seg Neutrophils % Seg Neuts % (Manual) Lymphocytes % (Manual) Seg Neutrophils # Seg Neutrophils # Man Lymphocytes # (Manual) D-Dimer ABG pH ABG pO2 ABG HCO3 ABG O2 Saturation ABG Base Excess ABG Hemoglobin VBG pH Oxyhemoglobin Sodium Potassium Chloride Carbon Dioxide BUN Creatinine Glucose POC Glucose 137 H 168 H 188 H Lactic Acid Calcium Phosphorus Magnesium Ferritin Total Bilirubin Direct Bilirubin AST ALT Ammonia Lactate Dehydrogenase C-Reactive Protein Total Protein Albumin Urine Creatinine Urine Total Protein Coronavirus (PCR) 04/19/22 04/20/22 04/20/22 22:32 01:10 04:17 WBC RBC Hgb Hct RDW Plt Count Lymph % (Auto) Lymph # (Auto) Seg Neutrophils % Seg Neuts % (Manual) Lymphocytes % (Manual) Seg Neutrophils # Seg Neutrophils # Man Lymphocytes # (Manual) D-Dimer ABG pH ABG pO2 ABG HCO3 31.9 H ABG O2 Saturation ABG Base Excess 5.7 H ABG Hemoglobin 10.3 L VBG pH Oxyhemoglobin 94.6 L Sodium 151 H D Potassium Chloride Carbon Dioxide BUN Creatinine Glucose POC Glucose Lactic Acid Calcium Phosphorus Magnesium Ferritin Total Bilirubin Direct Bilirubin AST ALT Ammonia Lactate Dehydrogenase C-Reactive Protein Total Protein Albumin Urine Creatinine 28.3 H Urine Total Protein Coronavirus (PCR) 04/20/22 04/20/22 04/20/22 06:00 06:00 06:29 WBC 18.7 H RBC 3.58 L Hgb Hct RDW 16.4 H Plt Count 130 L Lymph % (Auto) Lymph # (Auto) Seg Neutrophils % Seg Neuts % (Manual) Lymphocytes % (Manual) Seg Neutrophils # Seg Neutrophils # Man Lymphocytes # (Manual) D-Dimer ABG pH ABG pO2 ABG HCO3 ABG O2 Saturation ABG Base Excess ABG Hemoglobin VBG pH Oxyhemoglobin Sodium 156 H Potassium Chloride 118.3 H Carbon Dioxide 34 H BUN 52 H Creatinine Glucose 246 H POC Glucose 233 H Lactic Acid Calcium Phosphorus Magnesium Ferritin Total Bilirubin Direct Bilirubin AST ALT Ammonia Lactate Dehydrogenase C-Reactive Protein Total Protein Albumin Urine Creatinine Urine Total Protein Coronavirus (PCR) 04/20/22 04/20/22 04/21/22 11:12 Unknown 00:09 WBC RBC Hgb Hct RDW Plt Count Lymph % (Auto) Lymph # (Auto) Seg Neutrophils % Seg Neuts % (Manual) Lymphocytes % (Manual) Seg Neutrophils # Seg Neutrophils # Man Lymphocytes # (Manual) D-Dimer ABG pH ABG pO2 ABG HCO3 ABG O2 Saturation ABG Base Excess ABG Hemoglobin VBG pH Oxyhemoglobin Sodium 155 H Potassium Chloride Carbon Dioxide BUN Creatinine Glucose POC Glucose 224 H 205 H Lactic Acid Calcium Phosphorus Magnesium Ferritin Total Bilirubin Direct Bilirubin AST ALT Ammonia Lactate Dehydrogenase C-Reactive Protein Total Protein Albumin Urine Creatinine Urine Total Protein Coronavirus (PCR) 04/21/22 04/21/22 04/21/22 02:00 04:30 04:30 WBC 14.8 H RBC Hgb Hct RDW 15.9 H Plt Count 109 L Lymph % (Auto) Lymph # (Auto) Seg Neutrophils % Seg Neuts % (Manual) Lymphocytes % (Manual) Seg Neutrophils # Seg Neutrophils # Man Lymphocytes # (Manual) D-Dimer ABG pH ABG pO2 ABG HCO3 ABG O2 Saturation ABG Base Excess ABG Hemoglobin VBG pH Oxyhemoglobin Sodium 156 H 155 H Potassium Chloride 117.4 H Carbon Dioxide BUN 46 H Creatinine Glucose 178 H POC Glucose Lactic Acid Calcium Phosphorus Magnesium Ferritin Total Bilirubin Direct Bilirubin AST ALT Ammonia Lactate Dehydrogenase C-Reactive Protein Total Protein Albumin Urine Creatinine Urine Total Protein Coronavirus (PCR) 04/21/22 04/21/22 04/21/22 11:46 13:12 16:59 WBC RBC Hgb Hct RDW Plt Count Lymph % (Auto) Lymph # (Auto) Seg Neutrophils % Seg Neuts % (Manual) Lymphocytes % (Manual) Seg Neutrophils # Seg Neutrophils # Man Lymphocytes # (Manual) D-Dimer ABG pH ABG pO2 ABG HCO3 ABG O2 Saturation ABG Base Excess ABG Hemoglobin VBG pH Oxyhemoglobin Sodium 153 H Potassium Chloride Carbon Dioxide BUN Creatinine Glucose POC Glucose 113 H 112 H Lactic Acid Calcium Phosphorus Magnesium Ferritin Total Bilirubin Direct Bilirubin AST ALT Ammonia Lactate Dehydrogenase C-Reactive Protein Total Protein Albumin Urine Creatinine Urine Total Protein Coronavirus (PCR) 04/21/22 04/21/22 04/21/22 20:13 20:57 23:50 WBC RBC Hgb Hct RDW Plt Count Lymph % (Auto) Lymph # (Auto) Seg Neutrophils % Seg Neuts % (Manual) Lymphocytes % (Manual) Seg Neutrophils # Seg Neutrophils # Man Lymphocytes # (Manual) D-Dimer ABG pH ABG pO2 ABG HCO3 ABG O2 Saturation ABG Base Excess ABG Hemoglobin VBG pH Oxyhemoglobin Sodium 152 H Potassium Chloride Carbon Dioxide BUN Creatinine Glucose POC Glucose 128 H 146 H Lactic Acid Calcium Phosphorus Magnesium Ferritin Total Bilirubin Direct Bilirubin AST ALT Ammonia Lactate Dehydrogenase C-Reactive Protein Total Protein Albumin Urine Creatinine Urine Total Protein Coronavirus (PCR) 04/22/22 04/22/22 04/22/22 02:30 02:30 05:06 WBC 14.8 H RBC 3.41 L Hgb 9.9 L Hct RDW 16.2 H Plt Count 101 L Lymph % (Auto) Lymph # (Auto) Seg Neutrophils % Seg Neuts % (Manual) Lymphocytes % (Manual) Seg Neutrophils # Seg Neutrophils # Man Lymphocytes # (Manual) D-Dimer ABG pH ABG pO2 ABG HCO3 ABG O2 Saturation ABG Base Excess ABG Hemoglobin VBG pH Oxyhemoglobin Sodium 150 H Potassium Chloride 114.1 H Carbon Dioxide BUN 43 H Creatinine Glucose 186 H POC Glucose 167 H Lactic Acid Calcium Phosphorus Magnesium Ferritin Total Bilirubin Direct Bilirubin AST 46 H ALT 105 H Ammonia Lactate Dehydrogenase C-Reactive Protein Total Protein 4.9 L Albumin 3.2 L Urine Creatinine Urine Total Protein Coronavirus (PCR) 04/22/22 04/22/22 04/23/22 20:49 23:33 04:00 WBC 17.0 H RBC Hgb Hct RDW 16.2 H Plt Count 116 L Lymph % (Auto) Lymph # (Auto) Seg Neutrophils % Seg Neuts % (Manual) Lymphocytes % (Manual) Seg Neutrophils # Seg Neutrophils # Man Lymphocytes # (Manual) D-Dimer ABG pH ABG pO2 ABG HCO3 ABG O2 Saturation ABG Base Excess ABG Hemoglobin VBG pH Oxyhemoglobin Sodium Potassium Chloride Carbon Dioxide BUN Creatinine Glucose POC Glucose 208 H 210 H Lactic Acid Calcium Phosphorus Magnesium Ferritin Total Bilirubin Direct Bilirubin AST ALT Ammonia Lactate Dehydrogenase C-Reactive Protein Total Protein Albumin Urine Creatinine Urine Total Protein Coronavirus (PCR) 04/23/22 04/23/22 04/24/22 04:00 07:00 03:46 WBC 14.5 H RBC 3.34 L Hgb 9.6 L Hct 30.2 L RDW 16.8 H Plt Count 121 L Lymph % (Auto) Lymph # (Auto) Seg Neutrophils % Seg Neuts % (Manual) Lymphocytes % (Manual) Seg Neutrophils # Seg Neutrophils # Man Lymphocytes # (Manual) D-Dimer ABG pH ABG pO2 ABG HCO3 ABG O2 Saturation ABG Base Excess ABG Hemoglobin VBG pH Oxyhemoglobin Sodium 155 H Potassium Chloride 118.1 H Carbon Dioxide BUN 52 H Creatinine 1.3 H Glucose 223 H POC Glucose Lactic Acid Calcium Phosphorus Magnesium Ferritin Total Bilirubin Direct Bilirubin AST ALT Ammonia Lactate Dehydrogenase C-Reactive Protein Total Protein Albumin Urine Creatinine Urine Total Protein Coronavirus (PCR) Positive A 04/24/22 04/24/22 04/24/22 04:00 04:41 18:00 WBC RBC Hgb Hct RDW Plt Count Lymph % (Auto) Lymph # (Auto) Seg Neutrophils % Seg Neuts % (Manual) Lymphocytes % (Manual) Seg Neutrophils # Seg Neutrophils # Man Lymphocytes # (Manual) D-Dimer ABG pH ABG pO2 92.6 H ABG HCO3 27.5 H ABG O2 Saturation ABG Base Excess ABG Hemoglobin 9.6 L VBG pH Oxyhemoglobin Sodium 149 H Potassium Chloride 114.0 H Carbon Dioxide BUN 48 H Creatinine Glucose 145 H POC Glucose 146 H Lactic Acid Calcium Phosphorus Magnesium Ferritin Total Bilirubin Direct Bilirubin AST ALT Ammonia Lactate Dehydrogenase C-Reactive Protein Total Protein Albumin Urine Creatinine Urine Total Protein Coronavirus (PCR) 04/25/22 04/25/22 04/25/22 04:00 04:00 12:17 WBC 15.8 H RBC 3.08 L Hgb 8.9 L Hct 27.6 L RDW 16.7 H Plt Count 135 L Lymph % (Auto) Lymph # (Auto) Seg Neutrophils % Seg Neuts % (Manual) Lymphocytes % (Manual) Seg Neutrophils # Seg Neutrophils # Man Lymphocytes # (Manual) D-Dimer ABG pH ABG pO2 ABG HCO3 ABG O2 Saturation ABG Base Excess ABG Hemoglobin VBG pH Oxyhemoglobin Sodium 149 H Potassium Chloride 114.4 H Carbon Dioxide BUN 41 H Creatinine Glucose POC Glucose 120 H Lactic Acid Calcium Phosphorus Magnesium Ferritin Total Bilirubin Direct Bilirubin AST ALT Ammonia Lactate Dehydrogenase C-Reactive Protein Total Protein Albumin Urine Creatinine Urine Total Protein Coronavirus (PCR) 04/25/22 04/26/22 04/26/22 17:26 00:50 04:10 WBC RBC Hgb Hct RDW Plt Count Lymph % (Auto) Lymph # (Auto) Seg Neutrophils % Seg Neuts % (Manual) Lymphocytes % (Manual) Seg Neutrophils # Seg Neutrophils # Man Lymphocytes # (Manual) D-Dimer ABG pH 7.460 H ABG pO2 145.9 H ABG HCO3 ABG O2 Saturation ABG Base Excess ABG Hemoglobin 10.1 L VBG pH Oxyhemoglobin Sodium Potassium Chloride Carbon Dioxide BUN Creatinine Glucose POC Glucose 68 L 108 H Lactic Acid Calcium Phosphorus Magnesium Ferritin Total Bilirubin Direct Bilirubin AST ALT Ammonia Lactate Dehydrogenase C-Reactive Protein Total Protein Albumin Urine Creatinine Urine Total Protein Coronavirus (PCR) 04/26/22 04/26/22 08:15 08:15 WBC 11.8 H RBC 2.98 L Hgb 8.8 L Hct 26.7 L RDW 16.8 H Plt Count Lymph % (Auto) Lymph # (Auto) Seg Neutrophils % Seg Neuts % (Manual) Lymphocytes % (Manual) Seg Neutrophils # Seg Neutrophils # Man Lymphocytes # (Manual) D-Dimer ABG pH ABG pO2 ABG HCO3 ABG O2 Saturation ABG Base Excess ABG Hemoglobin VBG pH Oxyhemoglobin Sodium 149 H Potassium Chloride 113.3 H Carbon Dioxide BUN 31 H Creatinine Glucose POC Glucose Lactic Acid Calcium Phosphorus Magnesium Ferritin Total Bilirubin Direct Bilirubin AST ALT Ammonia Lactate Dehydrogenase C-Reactive Protein Total Protein Albumin Urine Creatinine Urine Total Protein Coronavirus (PCR)
[2022-04-26] MEDS ORDERED: INSULIN GLARGINE 100 UNITS/ML SUB-Q SCH (22:00)
== END 2022-04-26 13:00 | DRG 4 ==
LOC: ED 11:31 → CC1 18:11
PROVIDERS: ADMIT Internal Medicine; ATTEND Internal Medicine
PROC: 5A1955Z Respiratory Ventilation, Greater than 96 Consecutive Hours (ICD-10-PCS; principal; 2022-04-09)
PROC: 06HY33Z Insertion of Infusion Device into Lower Vein, Percutaneous Approach (ICD-10-PCS; 2022-04-09)
PROC: 4A033R1 Measurement of Arterial Saturation, Peripheral, Percutaneous Approach (ICD-10-PCS; 2022-04-09)
PROC: 4A00X4Z Measurement of Central Nervous Electrical Activity, External Approach (ICD-10-PCS; 2022-04-11)
PROC: 02HV33Z Insertion of Infusion Device into Superior Vena Cava, Percutaneous Approach (ICD-10-PCS; 2022-04-14)
PROC: B548ZZA Ultrasonography of Superior Vena Cava, Guidance (ICD-10-PCS; 2022-04-14)
PROC: 0B113F4 Bypass Trachea to Cutaneous with Tracheostomy Device, Percutaneous Approach (ICD-10-PCS; 2022-04-24)
PROC: 0BJ08ZZ Inspection of Tracheobronchial Tree, Via Natural or Artificial Opening Endoscopic (ICD-10-PCS; 2022-04-24)
PROC: 0DH63UZ Insertion of Feeding Device into Stomach, Percutaneous Approach (ICD-10-PCS; 2022-04-24)
DX: A41.89 Other specified sepsis (principal); E11.10 Type 2 diabetes mellitus with ketoacidosis without coma; U07.1 COVID-19; J12.82 Pneumonia due to coronavirus disease 2019; R65.21 Severe sepsis with septic shock; G93.41 Metabolic encephalopathy; N17.0 Acute kidney failure with tubular necrosis; J80 Acute respiratory distress syndrome; E87.0 Hyperosmolality and hypernatremia; E87.5 Hyperkalemia; E66.9 Obesity, unspecified; E83.42 Hypomagnesemia; E87.8 Other disorders of electrolyte and fluid balance, not elsewhere classified; R74.01 Elevation of levels of liver transaminase levels; K59.00 Constipation, unspecified; D69.6 Thrombocytopenia, unspecified; E87.6 Hypokalemia; E83.39 Other disorders of phosphorus metabolism; Z85.43 Personal history of malignant neoplasm of ovary; Z90.710 Acquired absence of both cervix and uterus; Z90.721 Acquired absence of ovaries, unilateral; Z79.899 Other long term (current) drug therapy; Z68.30 Body mass index [BMI] 30.0-30.9, adult
CPT/HCPCS: 36415; 36600; 70450; 70553; 71045; 74018; 74176; 76700; 76770; 80048; 80053; 80076; 80202; 80307; 81001; 82140; 82565; 82570; 82575; 82728; 82803; 82805; 82962; 83615; 83735; 83880; 83930; 83935; 84100; 84145; 84156; 84295; 84300; 84439; 84443; 84484; 85007; 85025; 85027; 85379; 85610; 85730; 86140; 87040; 87070; 87205; 89050; 93005; 93306; 93970; 94002; 94003; 94760; 95819; G0378; J2354; J3490; J7070; J7121; J7510; Q9967; 87502; A9575; C8929; J0330; J0456; J0692; J0696; J1100; J1265; J1644; J1650; J1815; J1940; J2060; J2185; J2270; J2310; J2704; J2765; J3010; J3262; J3370; J3475; J3480; J7030; J7040; J7050; U0003